=== PATIENT | female | born 1950 | race Caucasian/White ===

== ENCOUNTER → 2017-04-20 12:41 | Outpatient (CLI) | payer MEDICARE, MEDICAID, SELFPAY ==
--- NOTE | 2017-04-20 | CI_ITS ---
Cerebrovascular Exam Indications: 433.10 Occlusion/stenosis of carotid artery without cerebral infarction. IMPRESSIONS 1. Study suggests 20-49% stenosis involving the right internal carotid artery, the left internal carotid artery. The right ECA <50% stenosis and the left ECA >50% stenosis. 2. The bilateral vertebral arteries are patent but theleft mid vertebral artery demonstrates elevated velocities and abnormal waveforms consistent with a hemodynamically significant stenosis. The left subclavian artery demonstrates mildly elevated velocities at the proximal portion. Carotid duplex study. Complete study and Doppler flow study including spectral analysis, color and stark scale imaging. Height: Height: 152.4cm. Height: 60in. Weight: Weight: 71.2kg. Weight: 156.7lb. Body mass index: BMI: 30.7kg/m^2. Body surface area: BSA: 1.76m^2. Location: Vascular laboratory. Patient status: Outpatient. Tables: Arterial flow: + +-------+-------+ Location V sys V ed + +-------+-------+ Right ICA - mid 94cm/s 30cm/s + +-------+-------+ Right ICA - distal 110cm/s 29cm/s + +-------+-------+ Right vertebral 66cm/s 26cm/s + +-------+-------+ Right ICA - proximal 62cm/s 19cm/s + +-------+-------+ Right CCA - proximal 107cm/s 24cm/s + +-------+-------+ Right subclavian - proximal 303cm/s 6cm/s + +-------+-------+ Left ICA - proximal 96cm/s 24cm/s + +-------+-------+ Left ICA - mid 119cm/s 30cm/s + +-------+-------+ Left ICA - distal 119cm/s 37cm/s + +-------+-------+ Right ECA - proximal 186cm/s 17cm/s + +-------+-------+ Left ECA - proximal 353cm/s 47cm/s + +-------+-------+ Left CCA - proximal 101cm/s 21cm/s + +-------+-------+ Left vertebral - mid 397cm/s 124cm/s + +-------+-------+ Left subclavian - proximal 389cm/s ------- + +-------+-------+ (Report amended ) Electronically signed by: Naif Almeida [id number]
== END ==
PROVIDERS: Family Provider Internal Medicine Adolescent Medicine; PCP Internal Medicine Adolescent Medicine; Visit Provider Internal Medicine
DX: I65.23 Occlusion and stenosis of bilateral carotid arteries (principal)
CPT/HCPCS: 93880

== ENCOUNTER → 2017-12-20 08:37 | Outpatient (CLI) | payer MEDICARE, MEDICAID, SELFPAY ==
--- NOTE | 2017-12-20 08:43 | XR_ITS ---
XR wrist LT min 3V HISTORY pain and swelling ITS.REASON: left wrist pain ORDERING PHYSICIAN: Bakari Ponce MD PATIENT AGE: 67 years Comparison: None FINDINGS: There are severe osteoarthritic changes of the first metacarpal carpal joint. Atrophic changes are present along the medial aspect of the first metacarpal carpal joint with 2 calcific densities at the base of the first medical carpal laterally which could be due to old avulsions or calcific debris. There is generalized osteopenia. No other significant anomalies are evident. 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
[2017-12-20 11:40] LABS: Basophils # 0.1 K/mm3 (0-0.2); Basophils % 0.5 % (0.1-2.0); Eosinophils # 0.2 K/mm3 (0.0-0.4); Eosinophils % 1.8 % (0.1-12.0); Hematocrit 42.9 % (37.0-47.0); Hemoglobin 13.9 g/dL (12.2-16.2); Lymphocytes # 2.8 K/mm3 (0.7-4.5); Lymphocytes % 24.4 K/mm3 (10-50); Mean Corpuscular HGB Conc 32.4 g/dL (31.8-35.4); Mean Corpuscular Hemoglobin 29.5 pg (27.0-31.2); Monocytes # 0.7 K/mm3 (0.1-1.0); Monocytes % 6.2 % (1.7-9.3); Neutrophils # 7.6 K/mm3 (1.8-7.8); Neutrophils % 67.1 % (37.0-80.0); Platelet Count 292 K/mm3 (142-424); Red Blood Count 4.71 M/mm3 (4.20-5.40); Red Cell Distribution Width 12.7 % (11.5-17.5); White Blood Count 11.3 K/mm3 (4.8-10.8)
[2017-12-20 12:39] LABS: Uric Acid 3.9 mg/dL (2.6-7.2)
[2017-12-20 12:41] LABS: C-Reactive Protein < 0.2 mg/L (0.0-0.9)
[2017-12-20 15:28] LABS: Erythrocyte Sedimentation Rate 8 mm/hr (0-30)
[2017-12-22 06:31] LABS: Anti-Cyclic Citrullinated Pept >250 units (0-19); Antinuclear Antibodies, IFA Negative (.)
== END ==
PROVIDERS: PCP Internal Medicine Adolescent Medicine; Visit Provider Orthopaedic Surgery
DX: M25.532 Pain in left wrist (principal)
CPT/HCPCS: 36415; 73110; 84550; 85025; 85651; 86038; 86140; 86200; 86431

== ENCOUNTER → 2017-12-20 10:58 | Outpatient (CLI) | payer MEDICARE, MEDICAID, SELFPAY | PROVIDERS: PCP Internal Medicine Adolescent Medicine; Visit Provider Orthopaedic Surgery | DX: B99.9 Unspecified infectious disease (principal); M19.90 Unspecified osteoarthritis, unspecified site; M25.532 Pain in left wrist | CPT/HCPCS: 36415; 73110; 84550; 85025; 85651; 86038; 86140; 86200; 86431 ==

== ENCOUNTER → 2018-03-01 06:56 | Outpatient (CLI) | payer MEDICARE, MEDICAID, SELFPAY ==
--- NOTE | 2018-03-01 06:57 | CI_ITS ---
Cerebrovascular Exam Indications: Follow-up carotid 433.10. IMPRESSIONS 1. The bilateral vertebral arteries are patent but the left mid vertebral artery demonstrates elevated velocities and abnormal waveforms consistent with a hemodynamically significant stenosis. 2. Study suggests 20-49% stenosis involving the right internal carotid artery. No change from the study of 20-Apr-2017. 3. Study suggests 20-49% stenosis involving the left internal carotid artery. No change from the study of 20-Apr-2017. 4. Study suggests >50%stenosis involving the left external carotid artery. No change from the study of 20-Apr-2017. 5. Study suggests<50% stenosis involving the right external carotid artery. No change from the study of 20-Apr-2017. History: Stroke. Risk factors: Current tobacco use. Hypertension. Diabetes mellitus. Hyperlipidemia. Carotid duplex study. Complete study and Doppler flow study including spectral analysis, color and stark scale imaging. Height: Height: 152.4cm. Height: 60in. Weight: Weight: 61.7kg. Weight: 135.7lb. Body mass index: BMI: 26.6kg/m^2. Body surface area: BSA: 1.63m^2. Location: Vascular laboratory. Patient status: Outpatient. Tables: Arterial flow: + +--------+--------+ Location V sys V ed + +--------+--------+ Right CCA - proximal 80.1cm/s 11.8cm/s + +--------+--------+ Right CCA - distal 76.2cm/s 12.6cm/s + +--------+--------+ Right ECA 202cm/s 11.2cm/s + +--------+--------+ Right ICA - proximal 101cm/s 24.4cm/s + +--------+--------+ Right ICA - mid 103cm/s 21.2cm/s + +--------+--------+ Right ICA - distal 119cm/s 23.6cm/s + +--------+--------+ Right vertebral 71.6cm/s 23.9cm/s + +--------+--------+ Left CCA - proximal 69.8cm/s 12.6cm/s + +--------+--------+ Left CCA - distal 82.3cm/s 16.3cm/s + +--------+--------+ Left ECA 283cm/s 18.2cm/s + +--------+--------+ Left ICA - proximal 82.3cm/s 21.4cm/s + +--------+--------+ Left ICA - mid 96.8cm/s 21.4cm/s + +--------+--------+ Left ICA - distal 123cm/s 27cm/s + +--------+--------+ Left vertebral 317cm/s 46.3cm/s + +--------+--------+ Velocity ratios: + + + + + + Right, V sys Right, V ed Left, V sys Left, V ed + + + + + + Max ICA/dist CCA 1.56 1.94 1.49 1.66 + + + + + + (Report amended ) Electronically signed by: Danyel Sarabia [id number]
--- NOTE | 2018-03-01 06:57 | CA_ITS ---
PROCEDURE: 2-D M-mode and color Doppler study INDICATIONS FOR THE TEST: Chest pain COPD Heart Murmur Tobacco Smoking+ Palpitations Fatigue Syncope Edema Hypertension+Diabetes Mellitus+ Rheumatic Fever SOB PRUETT Obesity Hyperlipidemia+ Family History HD Additional History H/O CVA, CABG PATIENT INFORMATION HEIGHT:60 WEIGHT:136 GENDER: Female B/P:152/65 2-D/M-MODE INTERPRETATION: 2-D MEASUREMENTS OBSERVED VALUES IN CMS Right Ventricular Dimension (RVDd) 2.2 Interventricular Septum (Thickness)(IVsd) 1.5 Left Ventricular Internal Dimensions(LVIDd) 4.3 Left Ventricular Posterior Wall (Thickness)(LVPWd) 0.9 Aortic Root 2.9 Aortic Cusp Separation 1.9 Left Atrial Dimensions (LAD) 3.4 2D 1. Left atrium is mildly enlarged, left ventricle is normal size, mild concentric left ventricular hypertrophy, visually estimated ejection fraction 50%, there is discrete wall motion abnormality involving the inferobasal wall which is akinetic. 2. The right atrium and right ventricle are normal size and contractility. 3. The aortic valve is thickened and calcified, leaflet continue to display mobility. 4. The mitral and tricuspid valve leaflets are minimally thickened 5. The pulmonic valve is poorly visualized. 6. No significant pericardial effusion noted. DOPPLER INTERROGATION: Doppler interrogation of the aortic, mitral and tricuspid valve reveals presence of mild mitral and tricuspid regurgitation, grade 1 diastolic dysfunction seen with tissue Doppler evidence of raised left atrial pressure. CONCLUSION: 1. Mildly enlarged left atrium, normal left ventricular size, mild concentric left ventricular hypertrophy, visually estimated ejection fraction 50% with segmental wall motion abnormality described above, grade 1 diastolic dysfunction seen with tissue Doppler evidence of raised left atrial pressure. 2. Mild mitral and tricuspid regurgitation. 3. No significant pericardial effusion noted.
--- NOTE | 2018-03-01 06:57 | NM_ITS ---
History and Indications: Coronary artery disease, hypertension, diabetes, hyperlipidemia, tobacco use, family history. Procedure: Patient received a 0.4 mg of intravenous Lexiscan, resting heart rate was 73 bpm resting blood pressure 150/76, with Lexiscan maximum heart rate achieved was 100 bpm which is less than 85% of the maximum predicted heart rate and a blood pressure was 137/66. With Lexiscan patient complained of stomach cramp. Electrocardiogram: Resting electrocardiogram showed sinus rhythm possible septal infarct, with Lexiscan there is less than 1.[address] segment depression noted from the baseline EKG. The EKG portion of the Lexiscan Myoview is nondiagnostic. Cardiac stress and resting SPECT images: Cardiac stress and resting SPECT images were obtained using technetium 99 Myoview 32.1 mCi at stress and 10.2 mCi at rest. Gated SPECT further analysis of segmental wall motion and calculation of the ejection fraction also done. Cardiac stress and rest SPECT images show uniform myocardial activity without any segmental perfusion abnormality, computer derived ejection fraction is 57% with no regional wall motion abnormality, right ventricle is normal size and contractility. Conclusion: 1. The EKG portion of the Lexiscan Myoview is nondiagnostic. 2. No scintigraphic evidence of reversible ischemia seen, there are ejection fraction is 57% with no regional wall motion abnormality. Right ventricle is normal. 3. Normal Lexiscan Myoview study.
--- NOTE | 2018-03-01 11:12 | HMH.ITSHM ---
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 [lorazepan lisinopril metformin asa ]
== END ==
PROVIDERS: PCP Internal Medicine Adolescent Medicine; Visit Provider Internal Medicine
DX: E11.9 Type 2 diabetes mellitus without complications (principal); E78.5 Hyperlipidemia, unspecified; F17.200 Nicotine dependence, unspecified, uncomplicated; I11.9 Hypertensive heart disease without heart failure; I25.10 Atherosclerotic heart disease of native coronary artery without angina pectoris; I65.29 Occlusion and stenosis of unspecified carotid artery; Z86.73 Personal history of transient ischemic attack (TIA), and cerebral infarction without residual deficits; R06.00 Dyspnea, unspecified
CPT/HCPCS: 78452; 93017; 93306; 93880; A9502; J2785

== ENCOUNTER → 2018-03-16 09:30 | Outpatient (CLI) | payer MEDICARE, MEDICAID, SELFPAY ==
[2018-03-16 10:44] LABS: Basophils % 0.4 % (0.1-2.0); Eosinophils # 0.1 K/mm3 (0.0-0.4); Eosinophils % 1.5 % (0.1-12.0); Hematocrit 41.1 % (37.0-47.0); Hemoglobin 13.3 g/dL (12.2-16.2); Lymphocytes # 2.2 K/mm3 (0.7-4.5); Lymphocytes % 24.1 % (10-50); Mean Corpuscular HGB Conc 32.4 g/dL (31.8-35.4); Mean Corpuscular Hemoglobin 29.8 pg (27.0-31.2); Mean Platelet Volume 7.7 fl (7.4-10.4); Monocytes # 0.4 K/mm3 (0.1-1.0); Monocytes % 4.3 % (1.7-9.3); Neutrophils # 6.2 K/mm3 (1.8-7.8); Neutrophils % 69.8 % (37.0-80.0); Platelet Count 249 K/mm3 (142-424); Red Blood Count 4.47 M/mm3 (4.20-5.40); Red Cell Distribution Width 14.3 % (11.5-17.5); White Blood Count 8.9 K/mm3 (4.8-10.8)
[2018-03-16 12:11] LABS: Alanine Aminotransferase 39 U/L (12-78); Albumin/Globulin Ratio 1.2 (1.1-1.8); Alkaline Phosphatase 96 U/L (46-116); Anion Gap 12.8 mEq/L (5-15); Aspartate Amino Transferase 23 U/L (15-37); Bilirubin,Total 0.4 mg/dL (0.2-1.0); Blood Urea Nitrogen 13 mg/dL (7-18); Calcium 8.2 mg/dL (8.5-10.1); Carbon Dioxide 26 mmol/L (21.0-32.0); Chloride 106 mmol/L (98-107); Chol/HDL Ratio 2.9 (1-3.5); Cholesterol 95 mg/dL (140-200); Creatinine,Serum 0.71 mg/dL (0.55-1.02); Estimated Glomerular Filt Rate 82 ml/min (>60); GFR (African American) 99 ML/MIN (>60); Globulin 2.6 gm/dl (1.3-3.2); Glucose 103 mg/dL (74-106); HDL Cholesterol 33 mg/dL (29-89); LDL Cholesterol 45 mg/dL (0-130); Potassium 3.8 mmoL/L (3.5-5.1); Sodium 141 mmol/L (136-145); Total Protein,Serum 5.6 gm/dL (6.4-8.2); Triglycerides 84 mg/dL (30-200); VLDL Cholesterol 17 mg/dL (0-40)
[2018-03-16 15:19] LABS: Hemoglobin A1C 6.6 % (0.0-7.0)
== END ==
PROVIDERS: Visit Provider Internal Medicine Adolescent Medicine
DX: E11.9 Type 2 diabetes mellitus without complications (principal); E78.5 Hyperlipidemia, unspecified; M06.041 Rheumatoid arthritis without rheumatoid factor, right hand
CPT/HCPCS: 36415; 80053; 80061; 83036; 85025

== ENCOUNTER → 2018-06-04 09:37 | Outpatient (CLI) | payer MEDICARE, MEDICAID, SELFPAY ==
--- NOTE | 2018-06-04 09:41 | XR_ITS ---
XR DEXA axial skeleton HISTORY: ITS.REASON: COMPRESSION FX ORDERING PHYSICIAN: Roe Gleason MD PATIENT AGE: 67 years COMPARISON: 04/29/2016 FINDINGS: The BMD measured at the Left femoral neck is 0.956 g/cm squared with a T score of -0.6. This is considered Normal according to the World Health Organization criteria. Fracture risk is Low. Treatment is advised. L1 L4 density has a T score of -0.1 which is within normal limits. The L-spine density has increased by 1.7% in the hip density has decreased by 3.2% IMPRESSION: Normal bone density with low fracture risk. Recommend follow-up exam May 2020
[2018-06-04 10:29] LABS: Basophils # 0.1 K/mm3 (0-0.2); Basophils % 0.5 % (0.1-2.0); Eosinophils # 0.2 K/mm3 (0.0-0.4); Hematocrit 42.6 % (37.0-47.0); Hemoglobin 13.9 g/dL (12.2-16.2); Lymphocytes # 2.7 K/mm3 (0.7-4.5); Lymphocytes % 28.4 % (10-50); Mean Corpuscular HGB Conc 32.6 g/dL (31.8-35.4); Mean Corpuscular Hemoglobin 30.5 pg (27.0-31.2); Mean Corpuscular Volume 93.5 fl (81-99); Mean Platelet Volume 7.4 fl (7.4-10.4); Monocytes # 0.4 K/mm3 (0.1-1.0); Monocytes % 4.5 % (1.7-9.3); Neutrophils % 64.5 % (37.0-80.0); Platelet Count 243 K/mm3 (142-424); Red Blood Count 4.56 M/mm3 (4.20-5.40); Red Cell Distribution Width 15.3 % (11.5-17.5); White Blood Count 9.3 K/mm3 (4.8-10.8)
[2018-06-04 12:30] LABS: Alanine Aminotransferase 26 U/L (12-78); Albumin Level 3.3 gm/dL (3.4-5.0); Albumin/Globulin Ratio 1.2 (1.1-1.8); Alkaline Phosphatase 86 U/L (46-116); Anion Gap 15.7 mEq/L (5-15); Aspartate Amino Transferase 15 U/L (15-37); Bilirubin,Total 0.4 mg/dL (0.2-1.0); Blood Urea Nitrogen 16 mg/dL (7-18); Calcium 9.1 mg/dL (8.5-10.1); Carbon Dioxide 28 mmol/L (21.0-32.0); Chloride 105 mmol/L (98-107); Creatinine,Serum 0.64 mg/dL (0.55-1.02); Estimated Glomerular Filt Rate 93 ml/min (>60); GFR (African American) 112 ML/MIN (>60); Globulin 2.7 gm/dl (1.3-3.2); Glucose 57 mg/dL (74-106); Potassium 4.7 mmoL/L (3.5-5.1); Sodium 144 mmol/L (136-145)
== END ==
PROVIDERS: PCP Internal Medicine Adolescent Medicine; Visit Provider Internal Medicine Adolescent Medicine
DX: M06.041 Rheumatoid arthritis without rheumatoid factor, right hand (principal); S32.040D Wedge compression fracture of fourth lumbar vertebra, subsequent encounter for fracture with routine healing; Z78.0 Asymptomatic menopausal state
CPT/HCPCS: 36415; 77080; 80053; 85025

== ENCOUNTER → 2018-09-20 10:11 | Outpatient (CLI) | payer MEDICARE, MEDICAID, SELFPAY ==
--- NOTE | 2018-09-20 10:13 | CI_ITS ---
Cerebrovascular Exam Indications: 433.10 Occlusion/stenosis of carotid artery without cerebral infarction. IMPRESSIONS 1. The bilateral vertebral arteries are patent with normal antegrade flow. 2. Study suggests 20-49% stenosis involving the right internal carotid artery and the left internal carotid artery. No change from the study of 01-Mar-2018. 3. Study suggests 50-69% stenosis involving the right external carotid artery and the left external carotid artery. No change from the study of 01-Mar-2018. History: Risk factors: Current tobacco use. Hypertension. Diabetes mellitus. Hyperlipidemia. Carotid duplex study. Complete study and Doppler flow study including spectral analysis, color and stark scale imaging. Height: Height: 152.4cm. Height: 60in. Weight: Weight: 62.6kg. Weight: 137.7lb. Body mass index: BMI: 27kg/m^2. Body surface area: BSA: 1.65m^2. Location: Vascular laboratory. Patient status: Outpatient. Tables: Arterial flow: + +--------+--------+ Location V sys V ed + +--------+--------+ Right CCA - proximal 82.5cm/s 12.6cm/s + +--------+--------+ Right CCA - distal 99.9cm/s 16.1cm/s + +--------+--------+ Right ECA 208cm/s -------- + +--------+--------+ Right ICA - proximal 71.7cm/s 18.2cm/s + +--------+--------+ Right ICA - mid 76.1cm/s 20.6cm/s + +--------+--------+ Right ICA - distal 71.6cm/s 18.3cm/s + +--------+--------+ Right vertebral 66.8cm/s -------- + +--------+--------+ Left CCA - proximal 102cm/s 21.2cm/s + +--------+--------+ Left CCA - distal 102cm/s 14.1cm/s + +--------+--------+ Left ECA 209cm/s -------- + +--------+--------+ Left ICA - proximal 56.6cm/s 16.3cm/s + +--------+--------+ Left ICA - mid 58.4cm/s 14.3cm/s + +--------+--------+ Left ICA - distal 69.9cm/s 18.4cm/s + +--------+--------+ Left vertebral 46.2cm/s -------- + +--------+--------+ Velocity ratios: + + + + + + Right, V sys Right, V ed Left, V sys Left, V ed + + + + + + Max ICA/dist CCA 0.76 1.28 0.69 1.3 + + + + + + (Report amended ) Electronically signed by: Danyel Sarabia [id number]
== END ==
PROVIDERS: PCP Internal Medicine Adolescent Medicine; Visit Provider Internal Medicine Cardiovascular Disease
DX: I65.23 Occlusion and stenosis of bilateral carotid arteries (principal)
CPT/HCPCS: 93880

== ENCOUNTER 2019-01-04 20:16 | Observation (INO) ==
--- NOTE | 2019-01-04 21:12 | Emergency Department Note ---
ED Disposition Clinical Impression: CAP (community acquired pneumonia) Qualifiers: Laterality: right Lung location: lower lobe of lung Qualified Code(s): J18.1 - Lobar pneumonia, unspecified organism UTI (urinary tract infection) Qualifiers: Urinary tract infection type: site unspecified Hematuria presence: without hematuria Qualified Code(s): N39.0 - Urinary tract infection, site not specified Disposition: Admitted as Observation Condition on Discharge: Good Referrals: Roe Gleason MD [Primary Care Provider] - - Critical Care Critical Care Time: No Attestation: On 01/04/19, the high probability of a clinically significant, sudden or life threatening deterioration of the following system(s) required my full and direct attention, intervention and personal management. The time I documented below is in addition to time spent performing reported procedures but includes the following listed in this critical care notation. Medical Decision Making - Medical Records Medical records reviewed: Yes: I reviewed the patient's medical records. - Jose Inquiry Pt receiving controlled substance: No Vital Signs: 01/04/19 20:25 Temperature 100.5 F H Temperature Source Oral Pulse Rate [Right] 92 H Respiratory Rate 18 Blood Pressure [Right Arm] 153/89 H Blood Pressure Mean [Right Arm] 110 02 Sat by Pulse Oximetry 93 L Oxygen Delivery Method Room Air - Lab Data Lab results reviewed: Yes: I reviewed the patient's lab results. Lab Results 01/04/19 21:00: Urine Color Yellow, Urine Appearance Sl cloudy, Urine pH 6.0, Ur Specific [place] >= 1.030, Urine Protein 1+, Urine Glucose (UA) 3+, Urine K etones Trace, Urine Blood Negative, Urine Nitrate Positive, Urine Bilirubin Negative, Urine Urobilinogen 2.0, Ur Leukocyte Esterase Trace, Urine WBC 20-50, Amorphous Sediment 1+, Urine Bacteria 4+ 01/04/19 21:00: WBC 12.0 H, RBC 3.98 L, Hgb 11.9 L, Hct 38.2, MCV 95.8, MCH 29.9, MCHC 31.2 L, RDW 15.0, Plt Count 265, MPV 7.8, Neut % (Auto) 79.9, Lymph % (Auto) 10.1, [place] % (Auto) 9.3, Eos % (Auto) 0.5, Baso % (Auto) 0.2, Neut # (Auto) 9.5 H, Lymph # (Auto) 1.2, [place] # (Auto) 1.1 H, Eos # (Auto) 0.1, Baso # (Auto) 0.0, ESR 79 H 01/04/19 21:00: Sodium 136, Potassium 3.7, Chloride 101, Carbon Dioxide 27, Anion Gap 11.7, BUN 26 H, Creatinine 0.75 D, Estimated Creat Clear 49, Estimated GFR 77, Est GFR ( Amer) 93 D, Glucose 189 H, Calcium 8.3 L, Total Bilirubin 0.6, AST 15, ALT 28, Alkaline Phosphatase 168 H, C-Reactive Protein 10.8 H, Total Protein 6.2 L, Albumin 2.6 L, Globulin 3.6 H, Albumin/Globulin Ratio 0.7 L 01/04/19 21:00: Lactate 1.5 Result diagrams: 01/04/19 21:00 01/04/19 21:00 Orders (Tests/Meds): ED MEDICATIONS Generic Name Dose Route Start Last Admin Trade Name Freq PRN Reason Stop Dose Admin Sodium Chloride 1,000 mls @ 999 mls/hr 01/04/19 20:45 01/04/19 22:16 Sod Chlor 0.9% 1000ml Bag IV 01/04/19 21:45 999 mls/hr .Q1H1M DEXTER Administration Ceftriaxone Sodium 1 gm/ 50 mls @ 100 mls/hr 01/04/19 22:15 01/04/19 22:25 Sodium Chloride IV 01/18/19 22:14 100 mls/hr Q24H DEXTER Administration Protocol Azithromycin 500 mg/ Sodium 250 mls @ 250 mls/hr 01/04/19 22:15 Chloride IV 01/18/19 22:14 Q24H DEXTER Protocol Discontinued Medications Generic Name Dose Route Start Last Admin Trade Name Freq PRN Reason Stop Dose Admin Acetaminophen 650 mg 01/04/19 20:34 01/04/19 22:16 Acetaminophen 325mg Tab PO 01/04/19 20:35 650 mg ONCE ONE Administration Methylprednisolone Sodium Succinate 125 mg 01/04/19 21:13 01/04/19 22:16 Solu-Medrol 125mg/2ml Vial IV 01/04/19 21:14 125 mg ONCE ONE Administration ORDERS Category Date Time Status CT cervical spine wo con Stat Cat Scan 01/04/19 20:[address] head/brain wo con Stat Cat Scan 01/04/19 20:32 Taken XR chest 2V Stat Exams 01/04/19 20:32 Taken XR hip RT 2-3V w/pelvis Stat Exams 01/04/19 20:32 Taken Blood Culture Stat Micro 01/04/19 21:00 Received Urine Culture Stat Micro 01/04/19 21:00 Received - Radiology Data #1 Image(s): Chest, Pelvis Image Reviewed: Yes I reviewed the patient's radiology image Preliminary Findings: Abnormal (cap/deg changes rt hip ) - CT Data CT Scan: Head, C-Spine Time Received: 22:[address] Reviewed: Yes: I have viewed the radiologist's interpretation Preliminary Findings: Abnormal (see report ) Weakness HPI - General Chief complaint: Weakness Stated complaint: pain in hips and legs, confussed Time Seen by Provider: 01/04/19 21:00 Mode of Arrival: Ambulatory Source of Information: Patient, Relative, Medical Record Limitations: No Limitations Description of Symptoms (Recalled from ER Triage Doc. by RN): Pt family states she was seen here yesterday for weakness, dizzy, and confusion yesterday and dx with PNA and d/c, pt family expresses that she is not any better, she has increased confusion, fever, chills, and pain in her right hip. - History of Present Illness HPI Narrative: pt with pain in rt hip and had recent fall but also was in the ed yesterday and dx of cap and placed on abx - family report failed op treatment with more confusion with weakness and dec po intake - MD Complaint: generalized weakness Onset (ago): day(s) Location: generalized Severity: moderate Associated symptoms: confusion, loss of appetite - Related Data Home Medications Medication Instructions Recorded Confirmed atorvastatin 80 mg tablet 80 mg PO QDAY 04/05/17 01/04/19 carvedilol 25 mg tablet 37.5 mg PO BID tab 04/05/17 01/04/19 gabapentin 100 mg capsule 300 mg PO TID cap 04/05/17 01/04/19 lisinopril 40 mg tablet 40 mg PO BID tab 04/05/17 01/04/19 magnesium 400 mg (as magnesium 400 mg PO BID cap 04/05/17 01/04/19 oxide) capsule hydralazine 50 mg tablet 25 mg PO TID tab 04/06/17 01/04/19 lorazepam 0.5 mg tablet 0.5 mg PO TID tab 04/06/17 01/04/19 amlodipine 10 mg tablet 5 mg PO QDAY tab 09/14/17 01/04/19 aspirin 325 mg tablet 325 mg PO DAILY tab 09/14/17 01/04/19 glimepiride 2 mg tablet 4 mg PO BID tab 09/14/17 01/04/19 metformin 500 mg tablet 1,000 mg PO BID tab 09/14/17 01/04/19 folic acid 1 mg tablet 1 mg PO DAILY 02/22/18 01/04/19 methotrexate sodium 5 mg tablet 2.5 mg PO QWEEK 02/22/18 01/04/19 Isosorbide Mononitrate [Imdur 30mg 30 mg PO DAILY 03/26/18 01/04/19 ER tablet] Meloxicam 7.5 mg PO DAILY 03/26/18 01/04/19 buPROPion HCl [Bupropion HCl Sr] 150 mg PO BID 01/03/19 01/04/19 Azithromycin [Zithromax 250mg 250 mg PO DIRECTED 01/04/19 01/04/19 tab] Allergies Allergy/AdvReac Type Severity Reaction Status Date / Time naproxen Allergy Mild Verified 01/03/19 11:53 IV contrast Allergy Mild Uncoded 01/03/19 11:53 [facility] History - Hepatitis A Screen Drug use history?: No High risk sexual behaviors?: No History of sexually transmitted infection?: No Currently employed?: No Childcare worker?: No Do you have indoor plumbing?: Yes Do you have electricity?: Yes Attestation statement:: This patient has been screened for Hepatitis A risk factors. I have reviewed the patient's past medical history: Yes Medical History: Reports:: Coronary Artery Disease, Cerebrovascular Accident, Diabetes Mellitus Type 2, Hyperlipidemia, Hypertension, Myocardial Infarction Denies:: Diabetes Mellitus Type 1 Other Medical History: Reports: Arthritis Laterality Cases: Bilateral: Other Other Surgeries: Yes: Hysterectomy-Total, Other - Social History Smoking Status: Current every day smoker Tobacco Type: cigarettes Alcohol Intake: never Alcohol Intake Frequency:: other Substance Use Type: denies use Occupational Status: retired Family Hx:: Coronary Artery Disease, Heart Attack ROS Obtained: Yes All systems reviewed & no additional complaints - Constitutional Constitutional: Reports as per HPI, Reports fever(s), Reports weakness - Eyes Eyes: Denies change in vision - ENT Ears, Nose, Mouth, and Throat: Denies sore throat - Cardiovascular Cardiovascular: Denies chest pain - Respiratory Respiratory: Yes cough, Yes non-productive cough - Gastrointestinal Gastrointestingal: Reports: as per HPI, nausea. Denies: abdominal pain, vomiting - Genitourinary Female Genitourinary: Denies hematuria - Musculoskeletal Musculoskeletal: Denies joint pain, Denies joint swelling - Integumentary/Breasts Skin/Breast: Denies rash - Neurologic Neurologic: Denies focal weakness, Denies frequent falls, Denies headache(s), Denies seizure-like activity Physical Exam - General General appearance: alert - Head Head exam: normocephalic - Eye Eye exam: Present: PERRL, EOMI - ENT ENT exam: Present: mucous membranes dry - Neck Neck exam: Present: trachea midline - Respiratory Respiratory exam: Present: other (rales on rt ). Absent: respiratory distress - Cardiovascular Cardiovascular exam: Present: regular rate, systolic murmur, +S4 - Abdominal Exam Abdominal exam: Present: soft. Absent: tenderness - Extremities Exam Extremities exam: Present: full ROM - Neurological Exam Neurological exam: Present: alert, oriented X3, CN II-XII intact. Absent: motor sensory deficit - Psychiatric Psychiatric exam: Present: normal affect - Skin Skin exam: Absent: rash
[2019-01-04 21:19] LABS: Microscopic, Urine URINE MICROSCOPIC (MICROSCOPIC)
[2019-01-04 21:21] LABS: Basophils % 0.2 % (0.1-2.0); Eosinophils # 0.1 K/mm3 (0.0-0.4); Eosinophils % 0.5 % (0.1-12.0); Hematocrit 38.2 % (37.0-47.0); Hemoglobin 11.9 g/dL (12.2-16.2); Lymphocytes # 1.2 K/mm3 (0.7-4.5); Lymphocytes % 10.1 % (10-50); Mean Corpuscular HGB Conc 31.2 g/dL (31.8-35.4); Mean Corpuscular Volume 95.8 fl (81-99); Mean Platelet Volume 7.8 fl (7.4-10.4); Monocytes # 1.1 K/mm3 (0.1-1.0); Monocytes % 9.3 % (1.7-9.3); Neutrophils # 9.5 K/mm3 (1.8-7.8); Neutrophils % 79.9 % (37.0-80.0); Platelet Count 265 K/mm3 (142-424); Red Blood Count 3.98 M/mm3 (4.20-5.40)
[2019-01-04 21:31] LABS: Albumin Level 2.6 gm/dL (3.4-5.0); Albumin/Globulin Ratio 0.7 (1.1-1.8); Anion Gap 11.7 mEq/L (5-15); Bilirubin,Total 0.6 mg/dL (0.2-1.0); C-Reactive Protein 10.8 mg/dL (0.0-0.9); Calcium 8.3 mg/dL (8.5-10.1); Globulin 3.6 gm/dl (1.3-3.2); Total Protein,Serum 6.2 gm/dL (6.4-8.2)
[2019-01-04 21:51] LABS: Appearance,Urine SL CLOUDY (Clear); Blood, Urine Negative (Negative); Color,Urine YELLOW (Yellow); Glucose,Urine (UA) 3+ (Negative); Ketones,Urine TRACE (Negative); Leukocyte Esterase,Urine TRACE (Negative); Protein,Urine 1+ (Negative); Specific Gravity, Urine >= 1.030 (1.005-1.030)
[2019-01-04 21:53] LABS: Bilirubin,Urine Negative (Negative)
[2019-01-04 21:54] LABS: Amorphous Sediment,Urine 1+ /lpf; Bacteria,Urine 4+ /lpf; Erythrocyte Sedimentation Rate 79 mm/hr (0-30); WBC,Urine 20-50 #/hpf (0-3)
[2019-01-05 05:43] LABS: Basophils % 0.1 % (0.1-2.0); Eosinophils % 0.2 % (0.1-12.0); Hemoglobin 12.2 g/dL (12.2-16.2); Lymphocytes # 0.6 K/mm3 (0.7-4.5); Lymphocytes % 8.9 % (10-50); Mean Corpuscular HGB Conc 30.4 g/dL (31.8-35.4); Mean Corpuscular Volume 99.4 fl (81-99); Mean Platelet Volume 8.1 fl (7.4-10.4); Monocytes # 0.3 K/mm3 (0.1-1.0); Monocytes % 3.9 % (1.7-9.3); Neutrophils # 6.2 K/mm3 (1.8-7.8); Neutrophils % 86.9 % (37.0-80.0); Platelet Count 239 K/mm3 (142-424); Red Blood Count 4.02 M/mm3 (4.20-5.40); Red Cell Distribution Width 14.9 % (11.5-17.5); White Blood Count 7.2 K/mm3 (4.8-10.8)
[2019-01-05 05:56] LABS: Anion Gap 12.6 mEq/L (5-15); Blood Urea Nitrogen 16 mg/dL (7-18); Calcium 8.2 mg/dL (8.5-10.1); Carbon Dioxide 27 mmol/L (21.0-32.0); Chloride 108 mmol/L (98-107); Hypochromasia 1+; Lymphocytes % 6 % (10-50); Macrocytosis 2+; Neutrophils % 87 % (42-76); Sodium 144 mmol/L (136-145); Total Cells Counted 100
[2019-01-05 05:59] LABS: Glucose 281 mg/dL (74-106)
--- NOTE | 2019-01-05 09:02 | Pharmacy Consult Notes ---
[facility] Pharmacy VTE Monitoring - Patient Demographics Admission date: 01/05/19 Report Date: 01/05/19 Time: 09:01 Allergies/Adverse Reactions: Patient Allergies naproxen Allergy (Mild, Verified 01/03/19 11:53) IV contrast Allergy (Mild, Uncoded 01/03/19 11:53) Height: 1.52 m Weight: 62.199 kg Patient Problems: Current Active Problems CAP (community acquired pneumonia) (Acute) UTI (urinary tract infection) (Acute) - VTE Risk Labs: VTE Related Lab Results Hgb 12.2 g/dL (12.2-16.2) 01/05/19 05:05 Hct 40.0 % (37.0-47.0) 01/05/19 05:05 Plt Count 239 K/mm3 (142-424) 01/05/19 05:05 BUN 16 mg/dL (7-18) D 01/05/19 05:05 Creatinine 0.71 mg/dL (0.55-1.02) 01/05/19 05:05 Estimated Creat Clear 53 mL/min (50-200) 01/05/19 05:05 VTE Score: 5 VTE Risk Level: Low Risk - Prophylaxis VTE Prophylaxis Ordered?: Yes Types of VTE Prophylaxis: TEDS Knee High Location of Applied Device: Bilateral Lower Extremeties
--- NOTE | 2019-01-05 12:38 | History & Physical Report ---
*Admission Date: 01/05/19 *Chief complaint: Confusion, fatigue, polyuria *History of present illness: 68-year-old female with 1 week of worsening fatigue, weakness, confusion. Not feeling herself is how she puts it on interview this morning. She is also been having increased urinary frequency and dysuria. Initially presented to the ER on where she was found to have no abnormalities and sent home. Represented yesterday due to progression of symptoms and found to have significant UTI, tachycardia above 90, and leukocytosis concerning for sepsis. She was initiated on antibiotics and fluids. Admitted to medicine for further management of sepsis secondary to UTI. This morning states she is feeling somewhat better however only about 50% of normal. Family is at bedside and states that she has been very weak and having difficulty at home with her ADLs. Denies any fevers, nausea or vomiting, . Has had some loose stools but no alpa diarrhea. No flank pain or abdominal pain. [facility] History I have reviewed the patient's past medical history: Yes Medical History: Reports:: Coronary Artery Disease, Cerebrovascular Accident, Diabetes Mellitus Type 2, Hyperlipidemia, Hypertension, Myocardial Infarction Denies:: Diabetes Mellitus Type 1 *Have you ever received a pneumonia vaccine?: Yes *Have you received a flu vaccine this season?: Yes Other Medical History: Reports: Arthritis Laterality Cases: Bilateral: Other Other Surgeries: Yes: Hysterectomy-Total, Other Amputation: No Fractures: No - *Social History Educational Level: Attended High School Smoking Status: Former smoker Tobacco Type: cigarettes # Packs/Day (cigarettes): 1 #Yrs smoked (if former smoker): 50 Smoking End Date: 12/29/18 Alcohol Intake: never Alcohol Intake Frequency:: other Substance Use Type: denies use *Occupational Status:: retired Housing: house Household Members: children *Travel in the last 8 weeks: None Family Hx:: Coronary Artery Disease, Diabetes, Heart Attack Review of Systems - Review of Systems Review of systems:: pertinent systems reviewed and negative unless documented below - *Neurologic Reports weakness, Denies localized weakness, Denies frequent falls, Denies headache(s), Denies seizure-like activity Meds Home Medications Medication Instructions Recorded Confirmed Type atorvastatin 80 mg tablet 80 mg PO HS 04/05/17 01/05/19 History carvedilol 25 mg tablet 37.5 mg PO BID tab 04/05/17 01/04/19 History gabapentin 100 mg capsule 300 mg PO TID cap 04/05/17 01/04/19 History lisinopril 40 mg tablet 40 mg PO BID tab 04/05/17 01/04/19 History magnesium 400 mg (as magnesium 400 mg PO BID cap 04/05/17 01/04/19 History oxide) capsule hydralazine 50 mg tablet 25 mg PO TID tab 04/06/17 01/04/19 History lorazepam 0.5 mg tablet 0.5 mg PO TID tab 04/06/17 01/04/19 History amlodipine 10 mg tablet 5 mg PO DAILY tab 09/14/17 01/05/19 History aspirin 325 mg tablet 325 mg PO DAILY tab 09/14/17 01/04/19 History glimepiride 2 mg tablet 2 mg PO BID tab 09/14/17 01/05/19 History metformin 500 mg tablet 1,000 mg PO BID tab 09/14/17 01/04/19 History folic acid 1 mg tablet 1 mg PO DAILY 02/22/18 01/04/19 History methotrexate sodium 5 mg tablet 12.5 mg PO WEEKLY 02/22/18 01/05/19 History Isosorbide Mononitrate [Imdur 30mg 30 mg PO DAILY 03/26/18 01/04/19 History ER tablet] Meloxicam 7.5 mg PO DAILY 03/26/18 01/04/19 History buPROPion HCl [Bupropion HCl Sr] 150 mg PO BID 01/03/19 01/04/19 History Azithromycin [Zithromax 250mg 250 mg PO DIRECTED 01/04/19 01/04/19 History tab] Allergies Allergy/AdvReac Type Severity Reaction Status Date / Time naproxen Allergy Mild Verified 01/03/19 11:53 IV contrast Allergy Mild Uncoded 01/03/19 11:53 Exam Vital signs and Labs for Last 24 Hours: Temp Pulse Resp BP Pulse Ox 97.9 F 76 20 151/66 H 93 L 01/05/19 08:00 01/05/19 08:00 01/05/19 08:00 01/05/19 08:00 01/05/19 08:00 Laboratory Results - last 24 hr 01/04/19 21:00: Urine Color Yellow, Urine Appearance Sl cloudy, Urine pH 6.0, Ur Specific [place] >= 1.030, Urine Protein 1+, Urine Glucose (UA) 3+, Urine Ketones Trace, Urine Blood Negative, Urine Nitrate Positive, Urine Bilirubin Negative, Urine Urobilinogen 2.0, Ur Leukocyte Esterase Trace, Urine WBC 20-50, Amorphous Sediment 1+, Urine Bacteria 4+ 01/04/19 21:00: WBC 12.0 H, RBC 3.98 L, Hgb 11.9 L, Hct 38.2, MCV 95.8, MCH 29.9, MCHC 31.2 L, RDW 15.0, Plt Count 265, MPV 7.8, Neut % (Auto) 79.9, Lymph % (Auto) 10.1, [place] % (Auto) 9.3, Eos % (Auto) 0.5, Baso % (Auto) 0.2, Neut # (Auto) 9.5 H, Lymph # (Auto) 1.2, [place] # (Auto) 1.1 H, Eos # (Auto) 0.1, Baso # (Auto) 0.0, ESR 79 H 01/04/19 21:00: Sodium 136, Potassium 3.7, Chloride 101, Carbon Dioxide 27, Anion Gap 11.7, BUN 26 H, Creatinine 0.75 D, Estimated Creat Clear 49, Estimated GFR 77, Est GFR ( Amer) 93 D, Glucose 189 H, Calcium 8.3 L, Total Bilirubin 0.6, AST 15, ALT 28, Alkaline Phosphatase 168 H, C-Reactive Protein 10.8 H, Total Protein 6.2 L, Albumin 2.6 L, Globulin 3.6 H, Albumin/G lobulin Ratio 0.7 L 01/04/19 21:00: Lactate 1.5 01/05/19 02:00: Troponin I < 0.02 01/05/19 05:05: Sodium 144, Potassium 3.6, Chloride 108 H, Carbon Dioxide 27, Anion Gap 12.6, BUN 16 D, Creatinine 0.71, Estimated Creat Clear 53, Estimated GFR 82, Est GFR ( Amer) 99, Glucose 281 H D, Calcium 8.2 L, Magnesium 1.6, Troponin I < 0.02 01/05/19 05:05: WBC 7.2 D, RBC 4.02 L, Hgb 12.2, Hct 40.0, MCV 99.4 H, MCH 30.2, MCHC 30.4 L, RDW 14.9, Plt Count 239, MPV 8.1, Neut % (Auto) 86.9 H, Lymph % (Auto) 8.9 L, [place] % (Auto) 3.9, Eos % (Auto) 0.2, Baso % (Auto) 0.1, Neut # (Auto) 6.2, Lymph # (Auto) 0.6 L, [place] # (Auto) 0.3, Eos # (Auto) 0.0, Baso # (Auto) 0.0, Total Counted 100, Neutrophils % (Manual) 87 H, Band Neutrophils % 7.0, Lymphocytes % (Manual) 6 L, Platelet Estimate Normal, Hypochromasia 1+, Mac rocytosis 2+ I & O for Last 24 hours: Intake & Output 01/02/19 01/03/19 01/04/19 01/05/19 23:59 23:59 23:59 23:59 Intake Total 1300 / 1300 393 / 393 Balance 1300 / 1300 393 / 393 Weight 57.606 kg 62.199 kg Microbiology Reports for the Last 24 Hours: Microbiology 01/04/19 21:00 Urine,Catheterized Urine Culture - Preliminary Gram Negative Rods - *Routine HEENT Exam Head: Present: normocephalic Eye: Present: EOMI, PERRL ENT: Present: mucous membranes moist - *Routine Neck Exam Present: supple. Absent: lymphadenopathy - *Routine Respiratory Exam Present: CTA bilaterally - *Routine Cardiovascular Exam Present: RRR - *Routine Abdominal Exam Present: soft, normoactive bowel sounds. Absent: tenderness - *Routine Extremities Exam Absent: cyanosis, clubbing, edema - *Routine Skin Exam Present: warm. Absent: rash - *Routine Neurological Exam Present: alert, oriented X3 Assessment and Plan (1) Sepsis Current visit: Yes Status: Acute Category: Medical Code(s): A41.9 - Sepsis, unspecified organism Tachycardia greater than 90 on presentation, leukocytosis, source with urine. Continue antibiotics. Seems to be improving already with fluids and treatment. (2) UTI (urinary tract infection) Current visit: Yes Status: Acute Qualifiers: Urinary tract infection type: site unspecified Hematuria presence: without hematuria Qualified Code(s): N39.0 - Urinary tract infection, site not specified Category: Medical Code(s): N39.0 - Urinary tract infection, site not specified Urine culture pending. De-escalate antibiotics when appropriate. Continue IV for now (3) Dehydration Current visit: No Status: Acute Category: Medical Code(s): E86.0 - Dehydration Continue maintenance IV fluids. Continue to promote p.o. intake (4) Diabetes mellitus Current visit: No Status: Chronic Qualifiers: Diabetes mellitus type: type 2 Diabetes mellitus shelter insulin use: without shelter use Diabetes mellitus complication status: without complication Qualified Code(s): E11.9 - Type 2 diabetes mellitus without complications Category: Medical Code(s): E11.9 - Type 2 diabetes mellitus without complications Sliding scale insulin while admitted. (5) Hypertensive heart disease Current visit: No Status: Chronic Qualifiers: Heart failure presence: without heart failure Qualified Code(s): I11.9 - Hypertensive heart disease without heart failure Category: Medical Code(s): I11.9 - Hypertensive heart disease without heart failure Continue home regimen. (6) Tobacco dependence syndrome Current visit: No Status: Chronic Category: Medical Code(s): F17.200 - Nicotine dependence, unspecified, uncomplicated Nicotine replacement while admitted - Assessment and plan all Dx Assessment and Plan for all problems:: 68-year-old female with initial concern for pneumonia and UTI on admission. At this time no clear source for pneumonia and asymptomatic however patient had altered mental status and significant finding on UA for UTI. Gram-negative rods growing at this time. We will continue inpatient management with IV antibiotics pending sensitivity and de-escalate when appropriate. Physical therapy consultation due to weakness as patient may benefit from home health PT or change in DME at time of discharge. Continues to require inpatient admission. full code
--- NOTE | 2019-01-06 09:15 | Discharge Summary ---
General - General Admission date:: 01/05/19 Discharge date: 01/06/19 HPI HPI: 68-year-old female with 1 week of worsening fatigue, weakness, confusion. Not feeling herself is how she puts it on interview this morning. She is also been having increased urinary frequency and dysuria. Initially presented to the ER on where she was found to have no abnormalities and sent home. Represented yesterday due to progression of symptoms and found to have significant UTI, tachycardia above 90, and leukocytosis concerning for sepsis. She was initiated on antibiotics and fluids. Admitted to medicine for further management of sepsis secondary to UTI. This morning states she is feeling somewhat better however only about 50% of normal. Family is at bedside and states that she has been very weak and having difficulty at home with her ADLs. Denies any fevers, nausea or vomiting, . Has had some loose stools but no alpa diarrhea. No flank pain or abdominal pain. Hospital Course Hospital Course: Admitted for UTI, weakness, suspected pneumonia on imaging. Patient had no oxygen requirement respiratory symptoms but was treated with broad-spectrum antibiotics to cover both UTI and pneumonia. Weakness improved during admission and after initiating therapy. Urine culture showed E. coli that is sensitive to cephalosporins, fluoroquinolones. Will transition to oral therapy today. Give final dose of azithromycin today and transition to Omnicef for 5 additional days of therapy (7 days total of treatment for pneumonia and UTI). Patient states she is back to about 75% her baseline. Hemodynamically stable at this time. Medically stable for discharge home. Tolerating p.o. intake. Denies shortness of breath, chest pain, fever, nausea, vomiting, diarrhea. Ambulating with assistance to the bathroom, voiding independently. Plan for home health PT, will set up tomorrow during regular business hours Objective Vital signs: Temp Pulse Resp BP Pulse Ox 98.6 F 75 18 143/68 H 93 L 01/06/19 07:44 01/06/19 07:44 01/06/19 07:44 01/06/19 07:44 01/06/19 07:44 Narrative: - *Routine HEENT Exam Head: Present: normocephalic Eye: Present: EOMI, PERRL ENT: Present: mucous membranes moist - *Routine Neck Exam Present: supple. Absent: lymphadenopathy - *Routine Respiratory Exam Present: Good air movement bilaterally, clear in the anterior lung russell, no rhonchi or wheeze. Faint bibasilar crackles in posterior lung russell - *Routine Cardiovascular Exam Present: RRR, no murmur - *Routine Abdominal Exam Present: soft, normoactive bowel sounds. Absent: tenderness - *Routine Extremities Exam Absent: cyanosis, clubbing, edema - *Routine Skin Exam Present: warm. Absent: rash - *Routine Neurological Exam Present: alert, oriented X3 Results Labs on day of discharge: Labs from last 24 hours 01/06/19 01/05/19 01/05/19 06:12 20:44 16:40 POC Glucose 84 280 H 371 H* 01/05/19 01/05/19 12:07 06:17 POC Glucose 285 H 255 H DS: Diagnosis - Discharge Diagnosis (1) Sepsis Status: Resolved (2) UTI (urinary tract infection) Status: Acute (3) Dehydration Status: Acute (4) Diabetes mellitus Status: Chronic (5) Hypertensive heart disease Status: Chronic (6) Tobacco dependence syndrome Status: Chronic Discharge Plan - Patient Discharge Instructions ACTIVITY: Continue current activity DIET: continue same diet Patient Instructions: DI for Pneumonia -- Adult, DI for Urinary Tract Infection (UTI), How to Prevent Falls, DI for Sepsis -- Adult - Follow up Plan Follow up with: Steven Dao MD [Staff Physician] - Disposition: Home, Self-Custodial Medications: Home Medications Medication Instructions Recorded Confirmed Type atorvastatin 80 mg tablet 80 mg PO HS 04/05/17 01/05/19 History carvedilol 25 mg tablet 37.5 mg PO BID tab 04/05/17 01/04/19 History gabapentin 100 mg capsule 300 mg PO TID cap 04/05/17 01/04/19 History lisinopril 40 mg tablet 40 mg PO BID tab 04/05/17 01/04/19 History magnesium 400 mg (as magnesium 400 mg PO BID cap 04/05/17 01/04/19 History oxide) capsule hydralazine 50 mg tablet 25 mg PO TID tab 04/06/17 01/04/19 History lorazepam 0.5 mg tablet 0.5 mg PO TID tab 04/06/17 01/04/19 History amlodipine 10 mg tablet 5 mg PO DAILY tab 09/14/17 01/05/19 History aspirin 325 mg tablet 325 mg PO DAILY tab 09/14/17 01/04/19 History glimepiride 2 mg tablet 2 mg PO BID tab 09/14/17 01/05/19 History metformin 500 mg tablet 1,000 mg PO BID tab 09/14/17 01/04/19 History folic acid 1 mg tablet 1 mg PO DAILY 02/22/18 01/04/19 History methotrexate sodium 5 mg tablet 12.5 mg PO WEEKLY 02/22/18 01/05/19 History Isosorbide Mononitrate [Imdur 30mg 30 mg PO DAILY 03/26/18 01/04/19 History ER tablet] Meloxicam 7.5 mg PO DAILY 03/26/18 01/04/19 History buPROPion HCl [Bupropion HCl Sr] 150 mg PO BID 01/03/19 01/04/19 History Cefdinir [Omnicef 300mg Capsule] 300 mg PO BID 5 Days #10 cap 01/06/19 Rx Prescriptions/Medication Reconciliation: New Cefdinir [Omnicef 300mg Capsule] 300 mg PO BID 5 Days #10 cap Continued atorvastatin 80 mg tablet 80 mg PO HS carvedilol 25 mg tablet 37.5 mg PO BID tab gabapentin 100 mg capsule 300 mg PO TID cap lisinopril 40 mg tablet 40 mg PO BID tab magnesium 400 mg (as magnesium oxide) capsule 400 mg PO BID cap lorazepam 0.5 mg tablet 0.5 mg PO TID tab amlodipine 10 mg tablet 5 mg PO DAILY tab folic acid 1 mg tablet 1 mg PO DAILY hydralazine 50 mg tablet 25 mg PO TID tab metformin 500 mg tablet 1,000 mg PO BID tab aspirin 325 mg tablet 325 mg PO DAILY tab glimepiride 2 mg tablet 2 mg PO BID tab methotrexate sodium 5 mg tablet 12.5 mg PO WEEKLY Meloxicam 7.5 mg PO DAILY Isosorbide Mononitrate [Imdur 30mg ER tablet] 30 mg PO DAILY buPROPion HCl [Bupropion HCl Sr] 150 mg PO BID Discontinued Azithromycin [Zithromax 250mg tab] 250 mg PO DIRECTED - Problem Reconciliation Problems Reviewed?: Yes
== END 2019-01-06 15:59 | disposition home or self-care (01) ==
LOC: ER 20:16 → 2ND 20:16
PROVIDERS: ADMIT Emergency Medicine; ATTEND Internal Medicine Adolescent Medicine
CPT/HCPCS: 36415; 70450; 71020; 71046; 72125; 73502; 80048; 80053; 81001; 82962; 83605; 83735; 84484; 85007; 85025; 85651; 86140; 87040; 87086; 87088; 87186; 96365; 96367; 96375; 99284; G0378; J0456

== ENCOUNTER 2019-05-20 13:09 | Observation (INO) ==
--- NOTE | 2019-05-20 14:08 | Pharmacy Consult Notes ---
[facility] Pharmacy VTE Monitoring - Patient Demographics Admission date: 05/20/19 Report Date: 05/20/19 Time: 14:07 Allergies/Adverse Reactions: Patient Allergies naproxen Allergy (Mild, Verified 03/15/19 09:23) IV contrast Allergy (Mild, Uncoded 03/15/19 09:23) Height: 1.52 m Weight: 62.652 kg - Prophylaxis VTE Prophylaxis Ordered?: Yes Types of VTE Prophylaxis: TEDS Knee High Location of Applied Device: Bilateral Lower Extremeties
[2019-05-20 14:29] LABS: Albumin Level 3.8 g/dl (3.5-5.0); Albumin/Globulin Ratio 1.5 (1.1-1.8); Anion Gap 11.5 mEq/L (5-15); Bilirubin,Total 0.3 mg/dl (0.2-1.3); Calcium 9.2 mg/dl (8.4-10.2); Globulin 2.5 g/dL (1.3-3.2); Total Protein,Serum 6.3 g/dl (6.3-8.2)
[2019-05-20 15:05] LABS: Basophils # 0.1 K/mm3 (0-0.2); Basophils % 0.7 % (0.1-2.0); Eosinophils # 0.2 K/mm3 (0.0-0.4); Hematocrit 44.6 % (37.0-47.0); Hemoglobin 14.2 g/dL (12.2-16.2); Lymphocytes # 2.1 K/mm3 (0.7-4.5); Lymphocytes % 27.2 % (10-50); Mean Corpuscular Volume 95.3 fl (81-99); Mean Platelet Volume 9.2 fl (7.4-10.4); Monocytes # 0.6 K/mm3 (0.1-1.0); Monocytes % 8.3 % (1.7-9.3); Neutrophils # 4.8 K/mm3 (1.8-7.8); Neutrophils % 61.9 % (37.0-80.0); Platelet Count 219 K/mm3 (142-424); Red Blood Count 4.68 M/mm3 (4.20-5.40); White Blood Count 7.8 K/mm3 (4.8-10.8)
--- NOTE | 2019-05-20 16:51 | Electrocardiograph Report ---
APPROVED REPORT Exam: Resting ECG HR:65 bpm ECG Measurements Heart Rate 65 AXES WY 206 P 68 QRSd 90 QRS 90 QT 410 T84 QTc 426 <Conclusion> Sinus rhythm with occasional premature ventricular complexes Rightward axis Poor R Wave Progression NDST-T Changes Abnormal ECG Electronically signed by : Tin Barbosa, 05/20/2019 16:51:43
--- NOTE | 2019-05-20 17:39 | History & Physical Report ---
*Admission Date: 05/20/19 *Chief complaint: Mental status changes/confusion *History of present illness: 68-year-old white female with history of stroke disease, chronic right hemiplegia, coronary disease, type 2 diabetes and recurrent urinary tract infections was brought to my office by her daughter today because of increasing confusion over the past week and a half. She notes increasing leg pain over the past month or so, we had started gabapentin several weeks ago in the office and recently this has been uptitrated at home to the prescribed dose over the past week and a half and this has been associated with concomitant increase in some confusion behaviors but also some intermittent dysuria and frequency/urgency with sometimes inability to void. In the office she was found to be minimally dry on exam, left-sided facial drooping was noted, slightly worse right sided weakness was noted, and she was admitted to the hospital for further diagnostic testing. [facility] History I have reviewed the patient's past medical history: Yes Medical History: Reports:: Coronary Artery Disease, Cerebrovascular Accident, Diabetes Mellitus Type 2, Hyperlipidemia, Hypertension, Myocardial Infarction Denies:: Cancer, Diabetes Mellitus Type 1, MRSA *Have you ever received a pneumonia vaccine?: No *Have you received a flu vaccine this season?: No Other Medical History: Reports: Arthritis Laterality Cases: Bilateral: Other Other Surgeries: Yes: CABG, Hysterectomy-Total, Other Amputation: No Fractures: No - *Social History Smoking Status: Current every day smoker Tobacco Type: cigarettes # Packs/Day (cigarettes): 2 #Yrs smoked (if former smoker): 50 Alcohol Intake: never Alcohol Intake Frequency:: other Substance Use Type: denies use *Occupational Status:: retired Housing: house Household Members: children *Travel in the last 8 weeks: None Family Hx:: Coronary Artery Disease, Diabetes, Heart Attack Review of Systems - Review of Systems Review of systems:: pertinent systems reviewed and negative unless documented below - Constitutional Reports anorexia, Denies body ache(s), Denies fever(s) - Eyes Denies blind spots, Denies blurry vision - ENT Reports poor balance, Reports dizziness, Reports dry mouth, Denies abnormal hearing - *Cardiovascular Reports leg pain with activity, Denies chest pain, Denies chest pain at rest, Denies shortness of breath with activity, Denies generalized swelling - *Respiratory Denies change in phlegm color, Denies chest congestion, Denies shortness of breath, Denies shortness of breath with activity - *Gastrointestinal Denies abdominal pain, Denies change in bowel habits, Denies change in stools, Denies constipation - *Genitourinary Denies abnormal vaginal bleeding - *Musculoskeletal Reports abnormal walking - Integumentary/Breasts Denies acne, Denies change in skin color - *Neurologic Reports abnormal walking, Reports abnormal speech, Reports behavioral changes - Psychiatric Reports behavioral changes, Denies hearing things others do not hear, Denies change in appetite - Allergic/Immunologic Denies GI upset with certain foods Meds Home Medications Medication Instructions Recorded Confirmed Type atorvastatin 80 mg tablet 80 mg PO HS 04/05/17 05/20/19 History carvedilol 25 mg tablet 37.5 mg PO BID tab 04/05/17 05/20/19 History gabapentin 100 mg capsule 300 mg PO TID cap 04/05/17 05/20/19 History lisinopril 40 mg tablet 40 mg PO BID tab 04/05/17 05/20/19 History magnesium oxide 400 mg PO BID cap 04/05/17 05/20/19 History hydralazine 50 mg tablet 25 mg PO TID tab 04/06/17 05/20/19 History lorazepam 0.5 mg tablet 0.5 mg PO HS tab 04/06/17 05/20/19 History aspirin 325 mg tablet 325 mg PO DAILY tab 09/14/17 05/20/19 History metformin 500 mg tablet 1,000 mg PO BID tab 09/14/17 05/20/19 History folic acid 1 mg tablet 1 mg PO DAILY 02/22/18 05/20/19 History methotrexate sodium 5 mg tablet 12.5 mg PO WEEKLY 02/22/18 05/20/19 History Isosorbide Mononitrate [Imdur 30mg 30 mg PO DAILY 03/26/18 05/20/19 History ER tablet] Meloxicam 7.5 mg PO DAILY 03/26/18 05/20/19 History Amlodipine Besylate [Amlodipine 5 mg PO DAILY 05/20/19 05/20/19 History 5mg tab] buPROPion HCL [Bupropion HCl Sr] 150 mg PO BID 05/20/19 05/20/19 History Allergies Allergy/AdvReac Type Severity Reaction Status Date / Time naproxen Allergy Mild Verified 03/15/19 09:23 IV contrast Allergy Mild Uncoded 03/15/19 09:23 Exam Vital signs and Labs for Last 24 Hours: Temp Pulse Resp BP Pulse Ox 97.5 F L 59 L 18 137/74 95 05/20/19 15:33 05/20/19 15:33 05/20/19 15:33 05/20/19 15:33 05/20/19 15:33 Laboratory Results - last 24 hr 05/20/19 13:55: WBC 7.8, RBC 4.68, Hgb 14.2, Hct 44.6, MCV 95.3, MCH 30.5, MCHC 32.0, RDW 14.0, Plt Count 219, MPV 9.2, Neut % (Auto) 61.9, Lymph % (Auto) 27.2, [place] % (Auto) 8.3, Eos % (Auto) 2.0, Baso % (Auto) 0.7, Neut # (Auto) 4.8, Lymph # (Auto) 2.1, [place] # (Auto) 0.6, Eos # (Auto) 0.2, Baso # (Auto) 0.1 05/20/19 13:55: Sodium 137, Potassium 3.5, Chloride 99, Carbon Dioxide 30, Anion Gap 11.5, BUN 25 H, Creatinine 0.80, Estimated Creat Clear 53, Estimated GFR 71, Est GFR ( Amer) 86, Glucose 199 H, Calcium 9.2, Magnesium 1.6, Total Bilirubin 0.3, AST 27, ALT 24, Alkaline Phosphatase 127 H, Total Protein 6.3, Albumin 3.8, Globulin 2.5, Albumin/Globulin Ratio 1.5 05/20/19 15:50: Urine Color Yellow, Urine Appearance Clear, Urine pH 6.0, Ur Specific [place] <= 1.005, Urine Protein Negative, Urine Glucose (UA) Negative, Urine Ketones Negative, Urine Blood 1+, Urine Nitrate Negative, Urine Bilirubin Negative, Urine Urobilinogen 0.2, Ur Leukocyte Esterase Negative, Urine RBC 3-5, Urine WBC 10-20 A, Ur Squamous Epith Cells Occasional, Urine Bacteria 2+ A 05/20/19 17:07: POC Glucose 132 H I & O for Last 24 hours: Intake & Output 05/18/19 05/19/19 05/20/19 05/21/19 11:59 11:59 11:59 11:59 Intake Total 360 / 360 Balance 360 / 360 Weight 138 lb 2 oz Narrative: Patient was pleasant in the office but clearly somewhat lethargic and confused over baseline. Right arm and leg weakness noted, which is her baseline but was slightly more pronounced than normal. Lungs have good air movement. Clear. Oropharynx dry but clear. Left-sided facial drooping as previously noted visible. Heart rate regular. No carotid bruit. Good distal perfusion. Abdomen soft, nontender. Assessment and Plan (1) Cerebral atrophy Current visit: Yes Status: Acute Category: Medical Code(s): G31.9 - De generative disease of nervous system, unspecified CT of head with contrast showed basal ganglia damage and cerebral atrophy from old stroke. Certainly contributes to ataxia issues but no evidence of new finding. I do not think MRI is needed given the fact her symptoms have been present for a week and a half. (2) Ataxia Current visit: Yes Status: Acute Category: Medical Code(s): R27.0 - Ataxia, unspecified Multifactorial, possible UTI superimposed on cerebral damage from old stroke. PT/OT evaluation to see if home health referral would be warranted on discharge (3) Dehydration Current visit: No Status: Acute Category: Medical Code(s): E86.0 - Dehydration (4) UTI (urinary tract infection) Current visit: No Status: Acute Qualifiers: Urinary tract infection type: site unspecified Hematuria presence: without hematuria Qualified Code(s): N39.0 - Urinary tract infection, site not specified Category: Medical Code(s): N39.0 - Urinary tract infection, site not specified Cath urine specimen with bacteria. Start ceftriaxone, await cultures. (5) Diabetes mellitus Current visit: No Status: Chronic Qualifiers: Diabetes mellitus type: type 2 Diabetes mellitus penitentiary insulin use: without penitentiary use Diabetes mellitus complication status: without complication Qualified Code(s): E11.9 - Type 2 diabetes mellitus without complications Category: Medical Code(s): E11.9 - Type 2 diabetes mellitus without complications Complicates her care. No changes in plan
--- NOTE | 2019-05-20 22:53 | Discharge Summary ---
General - General Admission date:: 05/20/19 Discharge date: 05/21/19 HPI HPI: 68-year-old white female with history of stroke disease, chronic right hemiplegia, coronary disease, type 2 diabetes and recurrent urinary tract infections was brought to my office by her daughter today because of increasing confusion over the past week and a half. She notes increasing leg pain over the past month or so, we had started gabapentin several weeks ago in the office and recently this has been uptitrated at home to the prescribed dose over the past week and a half and this has been associated with concomitant increase in some confusion behaviors but also some intermittent dysuria and frequency/urgency with sometimes inability to void. In the office she was found to be minimally dry on exam, left-sided facial drooping was noted, slightly worse right sided weakness was noted, and she was admitted to the hospital for further diagnostic testing. Hospital Course Hospital Course: Admitted for confusion and UTI. Did well overnight with IV antibiotics and fluids. Back to baseline this morning per daughter. Afebrile, denies nausea, vomiting, diarrhea. Will transition oral antibiotics treat for empiric course of 7 days. Last urine culture showed pansensitive E. coli. Has close follow-up scheduled in just under 2 weeks. Will reassess at that time. Continue to follow this urine culture for any adjustments that need to be made in the outpatient setting. Stable for discharge home Objective Vital signs: Temp Pulse Resp BP Pulse Ox 98.7 F 63 18 127/52 L 94 L 05/20/19 19:41 05/20/19 19:41 05/20/19 19:41 05/20/19 19:41 05/20/19 19:41 Narrative: Patient was pleasant on exam this morning. And oriented x3 Right arm and leg weakness noted, which is her baseline but was slightly more pronounced than normal. Lungs have good air movement. Clear. Oropharynx dry but clear. Left-sided facial drooping as previously noted visible. Heart rate regular. No carotid bruit. Good distal perfusion. Abdomen soft, nontender. Results Labs on day of discharge: Labs from last 24 hours 05/20/19 05/20/19 05/20/19 21:05 17:07 15:50 WBC RBC Hgb Hct MCV MCH MCHC RDW Plt Count MPV Neut % (Auto) Lymph % (Auto) [place] % (Auto) Eos % (Auto) Baso % (Auto) Neut # (Auto) Lymph # (Auto) [place] # (Auto) Eos # (Auto) Baso # (Auto) Sodium Potassium Chloride Carbon Dioxide Anion Gap BUN Creatinine Estimated Creat Clear Estimated GFR Est GFR ( Amer) Glucose POC Glucose 232 H 132 H Calcium Magnesium Total Bilirubin AST ALT Alkaline Phosphatase Total Protein Albumin Globulin Albumin/Globulin Ratio Urine Color Yellow Urine Appearance Clear Urine pH 6.0 Ur Specific [place] <= 1.005 Urine Protein Negative Urine Glucose (UA) Negative Urine Ketones Negative Urine Blood 1+ Urine Nitrate Negative Urine Bilirubin Negative Urine Urobilinogen 0.2 Ur Leukocyte Esterase Negative Urine RBC 3-5 Urine WBC 10-20 A Ur Squamous Epith Cells Occasional Urine Bacteria 2+ A 05/20/19 05/20/19 13:55 13:55 WBC 7.8 RBC 4.68 Hgb 14.2 Hct 44.6 MCV 95.3 MCH 30.5 MCHC 32.0 RDW 14.0 Plt Count 219 MPV 9.2 Neut % (Auto) 61.9 Lymph % (Auto) 27.2 [place] % (Auto) 8.3 Eos % (Auto) 2.0 Baso % (Auto) 0.7 Neut # (Auto) 4.8 Lymph # (Auto) 2.1 [place] # (Auto) 0.6 Eos # (Auto) 0.2 Baso # (Auto) 0.1 Sodium 137 Potassium 3.5 Chloride 99 Carbon Dioxide 30 Anion Gap 11.5 BUN 25 H Creatinine 0.80 Estimated Creat Clear 53 Estimated GFR 71 Est GFR ( Amer) 86 Glucose 199 H POC Glucose Calcium 9.2 Magnesium 1.6 Total Bilirubin 0.3 AST 27 ALT 24 Alkaline Phosphatase 127 H Total Protein 6.3 Albumin 3.8 Globulin 2.5 Albumin/Globulin Ratio 1.5 Urine Color Urine Appearance Urine pH Ur Specific [place] Urine Protein Urine Glucose (UA) Urine Ketones Urine Blood Urine Nitrate Urine Bilirubin Urine Urobilinogen Ur Leukocyte Esterase Urine RBC Urine WBC Ur Squamous Epith Cells Urine Bacteria DS: Diagnosis - Discharge Diagnosis (1) Cerebral atrophy Status: Acute (2) Ataxia Status: Acute (3) Dehydration Status: Acute (4) UTI (urinary tract infection) Status: Acute (5) Diabetes mellitus Status: Chronic Discharge Plan - Patient Discharge Instructions ACTIVITY: Continue current activity DIET: continue same diet - Follow up Plan Follow up with: Roe Gleason MD [Primary Care Provider] - (Appointment already scheduled) Disposition: Home Health Service Home Medications: Home Medications Medication Instructions Recorded Confirmed Type atorvastatin 80 mg tablet 80 mg PO HS 04/05/17 05/20/19 History carvedilol 25 mg tablet 37.5 mg PO BID tab 04/05/17 05/20/19 History gabapentin 100 mg capsule 300 mg PO TID cap 04/05/17 05/20/19 History lisinopril 40 mg tablet 40 mg PO BID tab 04/05/17 05/20/19 History magnesium oxide 400 mg PO BID cap 04/05/17 05/20/19 History hydralazine 50 mg tablet 25 mg PO TID tab 04/06/17 05/20/19 History lorazepam 0.5 mg tablet 0.5 mg PO HS tab 04/06/17 05/20/19 History aspirin 325 mg tablet 325 mg PO DAILY tab 09/14/17 05/20/19 History metformin 500 mg tablet 1,000 mg PO BID tab 09/14/17 05/20/19 History folic acid 1 mg tablet 1 mg PO DAILY 02/22/18 05/20/19 History Isosorbide Mononitrate [Imdur 30mg 30 mg PO DAILY 03/26/18 05/20/19 History ER tablet] Meloxicam 7.5 mg PO DAILY 03/26/18 05/20/19 History Amlodipine Besylate [Amlodipine 5 mg PO DAILY 05/20/19 05/20/19 History 5mg tab] buPROPion HCL [Bupropion HCl Sr] 150 mg PO BID 05/20/19 05/20/19 History Cefdinir [Omnicef 300mg Capsule] 300 mg PO BID 5 Days #10 cap 05/21/19 Rx metHOTREXate sodium [metHOTREXate 12.5 mg PO WEEKLY 05/21/19 05/21/19 History 2.5mg Tablet] Prescriptions/Medication Reconciliation: Continued atorvastatin 80 mg tablet 80 mg PO HS carvedilol 25 mg tablet 37.5 mg PO BID tab lisinopril 40 mg tablet 40 mg PO BID tab magnesium oxide 400 mg PO BID cap lorazepam 0.5 mg tablet 0.5 mg PO HS tab folic acid 1 mg tablet 1 mg PO DAILY hydralazine 50 mg tablet 25 mg PO TID tab metformin 500 mg tablet 1,000 mg PO BID tab aspirin 325 mg tablet 325 mg PO DAILY tab Meloxicam 7.5 mg PO DAILY Isosorbide Mononitrate [Imdur 30mg ER tablet] 30 mg PO DAILY Amlodipine Besylate [Amlodipine 5mg tab] 5 mg PO DAILY metHOTREXate sodium [metHOTREXate 2.5mg Tablet] 12.5 mg PO WEEKLY buPROPion HCL [Bupropion HCl Sr] 150 mg PO BID Changed Gabapentin [Gabapentin 100mg Cap] 300 mg PO BID #0 cap - Problem Reconciliation Problems Reviewed?: Yes
== END 2019-05-21 12:35 | disposition home health service (06) ==
LOC: 2ND
PROVIDERS: ADMIT Internal Medicine Adolescent Medicine; ATTEND Internal Medicine Adolescent Medicine
CPT/HCPCS: 70450; 71020; 71046; 80053; 81001; 82962; 83735; 85025; 87086; 87088; 87186; 93005; 97162; 97165; G0378

== ENCOUNTER → 2020-01-16 11:08 | Outpatient (CLI) | payer MEDICARE, MEDICAID, SELFPAY ==
--- NOTE | 2020-01-16 11:16 | XR_ITS ---
PROCEDURE: XR CHEST PORTABLE CLINICAL HISTORY: COVID OUTPATIENT Shortness of air COMPARISON: CR XR CHEST 2V from 01/03/2019 CR XR CHEST 2V from 01/04/2019 DX XR CHEST 2V from 05/20/2019 FINDINGS: Prior median sternotomy. Normal heart size. There are slight increased markings in the right suprahilar region. This may be related overlying prominence of the 1st rib. Nonspecific nodular opacity is present in the right midlung laterally measuring 5 mm. There has been a prior CABG. No lobar consolidation or collapse. No acute bony abnormalities. IMPRESSION: No acute finding. Increased markings right suprahilar region likely overlapping bony structures. Nonspecific 5 mm right midlung nodular density. Consider upright PA and lateral chest for further evaluation. Dictated by: Naif Almeida MD 01/16/2020 14:17 Naif Almeida MD in [place] 01/16/2020 14:17
[2020-01-16 12:13] LABS: Basophils # 0.1 K/mm3 (0-0.2); Basophils % 0.7 % (0.1-2.0); Eosinophils # 0.5 K/mm3 (0.0-0.4); Eosinophils % 4.3 % (0.1-12.0); Hematocrit 45.3 % (37.0-47.0); Hemoglobin 14.3 g/dL (12.2-16.2); Lymphocytes # 2.8 K/mm3 (0.7-4.5); Lymphocytes % 24.6 % (10-50); Mean Corpuscular HGB Conc 31.7 g/dL (31.8-35.4); Mean Corpuscular Hemoglobin 29.4 pg (27.0-31.2); Mean Corpuscular Volume 92.9 fl (81-99); Mean Platelet Volume 9.2 fl (7.4-10.4); Monocytes # 0.6 K/mm3 (0.1-1.0); Monocytes % 5.2 % (1.7-9.3); Neutrophils # 7.4 K/mm3 (1.8-7.8); Neutrophils % 65.2 % (37.0-80.0); Platelet Count 268 K/mm3 (142-424); Red Blood Count 4.87 M/mm3 (4.20-5.40); Red Cell Distribution Width 13.3 % (11.5-17.5); White Blood Count 11.3 K/mm3 (4.8-10.8)
[2020-01-16 13:48] LABS: Chloride 103 mmol/L (98-107); Sodium 140 mmol/L (136-145)
[2020-01-16 13:49] LABS: Potassium 4.6 mmoL/L (3.5-5.1)
[2020-01-16 13:51] LABS: Alanine Aminotransferase 32 U/L (12-78); Albumin Level 3.9 g/dl (3.5-5.0); Albumin/Globulin Ratio 1.5 (1.1-1.8); Alkaline Phosphatase 124 U/L (38-126); Anion Gap 14.6 mEq/L (5-15); Aspartate Amino Transferase 37 U/L (14-36); Bilirubin,Total 0.5 mg/dl (0.2-1.3); Blood Urea Nitrogen 16 mg/dl (7-17); Carbon Dioxide 27 mmol/L (22.0-30.0); Estimated Glomerular Filt Rate 122 ml/min (>60); GFR (African American) 148 ML/MIN (>60); Globulin 2.6 g/dL (1.3-3.2); Total Protein,Serum 6.5 g/dl (6.3-8.2)
[2020-01-16 13:52] LABS: Calcium 9.4 mg/dl (8.4-10.2); Glucose 97 mg/dl (74-100)
== END ==
PROVIDERS: PCP Internal Medicine Adolescent Medicine; Visit Provider Internal Medicine Adolescent Medicine
DX: Z03.818 Encounter for observation for suspected exposure to other biological agents ruled out (principal); J18.0 Bronchopneumonia, unspecified organism
CPT/HCPCS: 36415; 71045; 80053; 85025; U0003

== ENCOUNTER → 2020-03-13 11:06 | Outpatient (CLI) | payer MEDICARE, MEDICAID, SELFPAY ==
[2020-03-13 12:26] LABS: Anion Gap 11.3 mEq/L (5-15); Blood Urea Nitrogen 13 mg/dl (7-17); Calcium 9.5 mg/dl (8.4-10.2); Carbon Dioxide 33 mmol/L (22.0-30.0); Chloride 97 mmol/L (98-107); Estimated Glomerular Filt Rate 122 ml/min (>60); GFR (African American) 148 ML/MIN (>60); Glucose 169 mg/dl (74-100); Potassium 4.3 mmoL/L (3.5-5.1); Sodium 137 mmol/L (136-145)
[2020-03-13 12:35] LABS: NT Pro Brain Natriuretic Pep. 517 pg/mL (0-125)
== END ==
PROVIDERS: Visit Provider Internal Medicine Cardiovascular Disease
DX: R06.00 Dyspnea, unspecified; I25.10 Atherosclerotic heart disease of native coronary artery without angina pectoris; I11.9 Hypertensive heart disease without heart failure; E78.5 Hyperlipidemia, unspecified; F17.200 Nicotine dependence, unspecified, uncomplicated; I65.29 Occlusion and stenosis of unspecified carotid artery; Z86.73 Personal history of transient ischemic attack (TIA), and cerebral infarction without residual deficits; Z95.1 Presence of aortocoronary bypass graft
CPT/HCPCS: 36415; 80048; 83880

== ENCOUNTER → 2020-04-02 10:17 | Outpatient (CLI) | payer MEDICARE, MEDICAID, SELFPAY ==
[2020-04-02 12:02] LABS: Anion Gap 14.3 mEq/L (5-15); Blood Urea Nitrogen 17 mg/dl (7-17); Calcium 9.4 mg/dl (8.4-10.2); Carbon Dioxide 32 mmol/L (22.0-30.0); Chloride 96 mmol/L (98-107); Estimated Glomerular Filt Rate 83 ml/min (>60); GFR (African American) 100 ML/MIN (>60); Glucose 190 mg/dl (74-100); Potassium 4.3 mmoL/L (3.5-5.1); Sodium 138 mmol/L (136-145)
[2020-04-02 12:13] LABS: NT Pro Brain Natriuretic Pep. 276 pg/mL (0-125)
== END ==
PROVIDERS: Visit Provider Urology
DX: E78.5 Hyperlipidemia, unspecified (principal); F17.200 Nicotine dependence, unspecified, uncomplicated; I11.9 Hypertensive heart disease without heart failure; I25.10 Atherosclerotic heart disease of native coronary artery without angina pectoris; Z86.73 Personal history of transient ischemic attack (TIA), and cerebral infarction without residual deficits; Z95.1 Presence of aortocoronary bypass graft; R06.02 Shortness of breath; I65.23 Occlusion and stenosis of bilateral carotid arteries
CPT/HCPCS: 36415; 80048; 83880

== ENCOUNTER 2020-05-02 10:18 | Observation (INO) | payer MEDICARE, MEDICAID, SELFPAY ==
[2020-05-02] VITALS (13 sets, daily range): BP systolic 113–158; BP diastolic 51–84; PULSE 71–97; RESP 16–24; TEMP 36.5–36.8; O2SAT 88–95; BMI 28.3; BMI 27.7
--- NOTE | 2020-05-02 10:33 | ECG_ITS ---
APPROVED REPORT Exam: Resting ECG HR:74 bpm ECG Measurements Heart Rate 74 AXES MI 186 P 64 QRSd 84 QRS -9 QT 386 T 102 QTc 428 Conclusion Normal sinus rhythm Possible Left atrial enlargement Inferior infarct, age undetermined Anterolateral infarct, age undetermined Abnormal ECG Electronically signed by : Roe Gleason, 05/04/2020 06:56:29
--- NOTE | 2020-05-02 10:37 | XR_ITS ---
PROCEDURE: XR CHEST AP CLINICAL HISTORY: sob Shortness of breath COMPARISON: CR XR CHEST 2V from 01/04/2019 DX XR CHEST 2V from 05/20/2019 CR XR CHEST PORTABLE from 01/16/2020 FINDINGS: Prior CABG. Normal heart size COPD changes. No lobar consolidation or collapse. No acute bony abnormalities. IMPRESSION: No acute findings. Dictated by: Naif Almeida MD 05/02/2020 12:40 Naif Almeida MD in [place] 05/02/2020 12:40
[2020-05-02 11:31] LABS: Alanine Aminotransferase 30 U/L (12-78); Albumin Level 3.8 g/dl (3.5-5.0); Albumin/Globulin Ratio 1.3 (1.1-1.8); Alkaline Phosphatase 139 U/L (38-126); Anion Gap 15.1 mEq/L (5-15); Aspartate Amino Transferase 29 U/L (14-36); Bilirubin,Total 0.4 mg/dl (0.2-1.3); Blood Urea Nitrogen 18 mg/dl (7-17); Calcium 9.5 mg/dl (8.4-10.2); Carbon Dioxide 33 mmol/L (22.0-30.0); Chloride 98 mmol/L (98-107); Creatinine Clearance Estimated 55 mL/min (50-200); Estimated Glomerular Filt Rate 62 ml/min (>60); GFR (African American) 75 ML/MIN (>60); Globulin 2.9 g/dL (1.3-3.2); Glucose 170 mg/dl (74-100); Potassium 4.1 mmoL/L (3.5-5.1); Sodium 142 mmol/L (136-145); Total Protein,Serum 6.7 g/dl (6.3-8.2)
[2020-05-02 11:32] LABS: Basophils # 0.1 K/mm3 (0-0.2); Basophils % 0.7 % (0.1-2.0); Eosinophils # 0.6 K/mm3 (0.0-0.4); Eosinophils % 6.2 % (0.1-12.0); Hematocrit 44.6 % (37.0-47.0); Hemoglobin 14.8 g/dL (12.2-16.2); Lymphocytes # 2.4 K/mm3 (0.7-4.5); Mean Corpuscular HGB Conc 33.1 g/dL (31.8-35.4); Mean Corpuscular Hemoglobin 29.9 pg (27.0-31.2); Mean Corpuscular Volume 90.2 fl (81-99); Mean Platelet Volume 8.1 fl (7.4-10.4); Monocytes # 0.7 K/mm3 (0.1-1.0); Monocytes % 8.1 % (1.7-9.3); Neutrophils # 5.4 K/mm3 (1.8-7.8); Platelet Count 255 K/mm3 (142-424); Red Blood Count 4.94 M/mm3 (4.20-5.40); White Blood Count 9.1 K/mm3 (4.8-10.8)
[2020-05-02 11:33] LABS: Lactic Acid 4.2 mmol/L (0.7-2.1)
--- NOTE | 2020-05-02 11:37 | PC.NURSE ---
notified ER of critical lactic acid level.
--- NOTE | 2020-05-02 11:59 | HMH.EDGENADL ---
ED Disposition Clinical Impression: Respiratory failure with hypoxia Qualifiers: Chronicity: acute Qualified Code(s): J96.01 - Acute respiratory failure with hypoxia COPD (chronic obstructive pulmonary disease) Qualifiers: COPD type: unspecified COPD Qualified Code(s): J44.9 - Chronic obstructive pulmonary disease, unspecified Acute bronchitis Qualifiers: Bronchitis organism: unspecified organism Qualified Code(s): J20.9 - Acute bronchitis, unspecified Disposition: Admitted as Observation Condition on Discharge: Fair Referrals: Roe Gleason MD [Primary Care Provider] - - Critical Care Critical Care Time: No Attestation: On 05/02/20, the high probability of a clinically significant, sudden or life threatening deterioration of the following system(s) required my full and direct attention, intervention and personal management. The time I documented below is in addition to time spent performing reported procedures but includes the following listed in this critical care notation. Medical Decision Making - Jose Inquiry Pt receiving controlled substance: No Vital Signs: 05/02/20 10:19 05/02/20 10:55 05/02/20 11:27 Temperature 98.1 F Temperature Source Oral Pulse Rate [Left Radial] 86 74 76 Respiratory Rate 24 Blood Pressure [Right Arm] 131/62 152/53 H 116/55 L Blood Pressure Mean [Right Arm] 85 86 75 Blood Pressure Source [Right Arm] Automatic Cuff Automatic Cuff Automatic Cuff Blood Pressure Position [Right Arm] Sitting Sitting Sitting 02 Sat by Pulse Oximetry 94 L 94 L 93 L Oxygen Delivery Method Nasal Cannula Nasal Cannula Nasal Cannula Oxygen Flow Rate (LPM) 2 2 2 05/02/20 11:58 05/02/20 12:28 05/02/20 13:00 Temperature Temperature Source Pulse Rate [Left Radial] 73 79 77 Respiratory Rate Blood Pressure [Right Arm] 121/62 123/54 L 129/84 Blood Pressure Mean [Right Arm] 81 77 99 Blood Pressure Source [Right Arm] Automatic Cuff Automatic Cuff Automatic Cuff Blood Pressure Position [Right Arm] Sitting Sitting Sitting 02 Sat by Pulse Oximetry 95 95 94 L Oxygen Delivery Method Nasal Cannula Nasal Cannula Nasal Cannula Oxygen Flow Rate (LPM) 2 2 2 05/02/20 13:35 Temperature Temperature Source Pulse Rate [Left Radial] 71 Respiratory Rate Blood Pressure [Right Arm] 120/59 L Blood Pressure Mean [Right Arm] 79 Blood Pressure Source [Right Arm] Automatic Cuff Blood Pressure Position [Right Arm] Sitting 02 Sat by Pulse Oximetry 93 L Oxygen Delivery Method Nasal Cannula Oxygen Flow Rate (LPM) 2 - Lab Data Lab results reviewed: Yes: I reviewed the patient's lab results. Lab Results 05/02/20 11:08: WBC 9.1, RBC 4.94, Hgb 14.8, Hct 44.6, MCV 90.2, MCH 29.9, MCHC 33.1, RDW 14.0, Plt Count 255, MPV 8.1, Neut % (Auto) 59.0, Lymph % (Auto) 26.0, [place] % (Auto) 8.1, Eos % (Auto) 6.2, Baso % (Auto) 0.7, Neut # (Auto) 5.4, Lymph # (Auto) 2.4, [place] # (Auto) 0.7, Eos # (Auto) 0.6 H, Baso # (Auto) 0.1 05/02/20 11:08: Sodium 142, Potassium 4.1, Chloride 98, Carbon Dioxide 33 H, Anion Gap 15.1 H, BUN 18 H, Creatinine 0.90, Estimated Creat Clear 55, Estimated GFR 62, Est GFR ( Amer) 75, Glucose 170 H, Calcium 9.5, Total Bilirubin 0.4, AST 29, ALT 30, Alkaline Phosphatase 139 H, Total Protein 6.7, Albumin 3.8, Globulin 2.9, Albumin/Globulin Ratio 1.3 05/02/20 11:08: Lactate 4.2 H 05/02/20 11:08: Troponin I < 0.01, NT-Pro-B Natriuret Pep 298 H 05/02/20 12:29: Specimen Source Right radial, O2 % 2lpm nc, ABG pH 7.36, ABG pCO2 42.8, ABG pO2 88.2, ABG HCO3 23.5, ABG Total CO2 24.8, ABG O2 Saturation 96, ABG Base Excess -2.0, Naif Test Acceptable Result diagrams: 05/02/20 11:08 05/02/20 11:08 Orders (Tests/Meds): ED MEDICATIONS Generic Name Dose Route Start Last Admin Trade Name Freq PRN Reason Stop Dose Admin Albuterol/Ipratropium 3 ml 05/02/20 14:00 Albuterol/Ipratropium 3 Ml Neb IH 06/01/20 13:59 QIDRT DEXTER Ceftriaxone Sodium 1 gm/ 50 mls @ 100 mls/hr 05/02/20 14:00
--- NOTE | 2020-05-02 12:00 | PC.NURSE ---
asked ER MD he would want fluid bolus started on pt r/t lactic acid level, ER MD states if pt does not meet SIRS criteria to wait on fluids bolus. He will see pt and place orders as needed. Pt only has 1 SIRS criteria at this time.
--- NOTE | 2020-05-02 12:12 | CT_ITS ---
PROCEDURE: CT CHEST WO CON CLINICAL INDICATION: soa, hypoxia COMPARISON: CT CT LUMBAR SPINE WO CON from 05/24/2019 CR XR CHEST AP from 05/02/2020 TECHNIQUE: Axial images obtained with sagittal and coronal reformats. All CT scans at the facility use one or more dose reduction, viz: automated exposure control, ma/kV adjustment per patient size (including targeted exams where dose is matched to indication, i.e. head), or iterative reconstruction technique. FINDINGS: HEART AND MEDIASTINAL STRUCTURES: There has been a prior CABG. No evidence of aortic aneurysm. There is extensive coronary artery calcification. There are few small mediastinal lymph nodes. LUNGS AND PLEURAL SPACES: There is a faint 5 mm nodular opacity in the left upper lobe image 34 series 3. There is trace right-sided effusion. Centrilobular and paraseptal emphysematous changes are present with scattered areas of scarring. There is mild diffuse bronchial thickening. Motion artifact does somewhat obscure fine detail. There is a faint haziness in the lung russell in the upper lobe centrally which could be due to very early ground-glass attenuation. BONY STRUCTURES: 50 percent anterior wedge compression change involves the T12 vertebral body with mild retro pulsion of the posterior superior aspect of T12 by approximately 3-4 mm. This has progressed since the previous CT of 05/24/2019 UPPER ABDOMEN: Unremarkable. ADDITIONAL FINDINGS: No other significant abnormalities. IMPRESSION: 1. COPD/centrilobular and paraseptal emphysema. 2. Bronchial thickening with perihilar and upper lobe haziness consistent with bronchitis and possible pneumonitis. 3. Nonspecific 5 mm left upper lobe nodule. Six-month follow-up suggested. 4. Compression fracture of T12 which is slightly worsened since the previous exam Dictated by: Naif Almeida MD 05/02/2020 13:19 Naif Almeida MD in [place] 05/02/2020 13:19
--- NOTE | 2020-05-02 12:22 | PC.NURSE ---
VALENTIN MORGAN spoke with Dr. López who is consumer insight manager for Dr Gleason
[2020-05-02 12:30] LABS: ABG HCO3 23.5 mmhg (22.0-26.0); ABG Oxygen Saturation 96 % (90-100); ABG PCO2 42.8 mmhg (35.0-45.0); ABG PH 7.36 mmol/L (7.35-7.45); ABG PO2 88.2 mmhg (80-100); ABG TCO2 24.8 mmhg (23-27)
--- NOTE | 2020-05-02 12:30 | PC.NURSE ---
Pt to rad.
[2020-05-02 12:32] LABS: Allen's Test Acceptable; Oxygen 2lpm nc %; Source Right Radial
[2020-05-02 13:12] LABS: NT Pro Brain Natriuretic Pep. 298 pg/mL (0-125)
[2020-05-02 13:14] LABS: Troponin I < 0.01 ng/ml (0.00-0.034)
--- NOTE | 2020-05-02 13:36 | PC.NURSE ---
per lab pt covid swab has approx 15 minutes left until resulted.
--- NOTE | 2020-05-02 13:53 | PC.NURSE ---
VALENTIN MORGAN speaking with Dr. López
--- NOTE | 2020-05-02 14:40 | PC.NURSE ---
report given to helen sheridan at this time
--- NOTE | 2020-05-02 15:04 | PC.NURSE ---
PT arrived to the floor at this time.
[2020-05-02 15:21] LABS: Reflex Lactic Add Lactic Reflex
[2020-05-02 16:12] LABS: Lactic Acid Follow Up (RFLX 1) 6.2 mmol/L (0.7-2.1)
[2020-05-02 17:26] LABS: POC Glucose,Bedside 364 (70-110)
[2020-05-02 17:56] LABS: Reflex Lactic (2 hrs) Add Lactic Reflex
[2020-05-02 18:33] LABS: Lactic Acid Follow up (RFLX 2) 7.1 mmol/L (0.7-2.1)
--- NOTE | 2020-05-02 19:24 | PC.NURSE ---
is aware of lactic acids. no new orders
[2020-05-02 21:09] LABS: POC Glucose,Bedside 387 (70-110)
[2020-05-03 04:00] VITALS: BP 131/82; PULSE 78; RESP 18; TEMP 36.4; O2SAT 95
[2020-05-03 04:54] VITALS: O2SAT 91; BMI 28.0
--- NOTE | 2020-05-03 04:55 | PC.NURSE ---
Addendum entered by Saskia Crane, KENDY 05/03/20 04:59: charted this note in wrong chart, the entered weight is now correct. Addendum entered by Saskia Crane, KENDY 05/03/20 04:56: we were able to get her on the scale and this was the closest number we could read before she became to weak but this isnt a full reading and another will be needed Original Note: patient was too weak to stand on a scale at this time. nurse made aware
[2020-05-03 05:58] VITALS: PULSE 61; O2SAT 94
[2020-05-03 06:06] LABS: POC Glucose,Bedside 332 (70-110)
--- NOTE | 2020-05-03 06:27 | PC.NURSE ---
no acute changes since prior assessment, pt has rested well t/o shift, AxOx4, remains on 2L NC with O2 sats 91-95%, breathing is unlabored and spontaneous, no complaints of SOA or CP
[2020-05-03 08:00] VITALS: BP 160/77; PULSE 107; RESP 16; TEMP 36.6; O2SAT 92
--- NOTE | 2020-05-03 08:19 | HMH.HP ---
*Admission Date: 05/02/20 *Chief complaint: SOA, cough, fever [facility] History Medical History: Reports:: Congestive Heart Failure, Coronary Artery Disease, Cerebrovascular Accident, Diabetes Mellitus Type 1, Hyperlipidemia, Hypertension, Myocardial Infarction Denies:: Cancer, Diabetes Mellitus Type 2, MRSA *Have you ever received a pneumonia vaccine?: Yes *Have you received a flu vaccine this season?: Yes Other Medical History: Reports: Arthritis Laterality Cases: Bilateral: Other Other Surgeries: Yes: CABG, Cardiac Surgery, Hysterectomy-Total, Hysterectomy-Partial, Other Amputation: No Fractures: No - *Social History Smoking Status: Current every day smoker Tobacco Type: cigarettes # Packs/Day (cigarettes): 1 #Yrs smoked (if former smoker): 50 Alcohol Intake: never Alcohol Intake Frequency:: other Substance Use Type: denies use *Occupational Status:: retired Housing: house Household Members: family *Travel in the last 8 weeks: None Family Hx:: Coronary Artery Disease, Diabetes, Heart Attack, Hyperlipidemia, Hypertension Review of Systems - *Neurologic Reports other (Drowsiness), Denies headache(s) Meds Home Medications Medication Instructions Recorded Confirmed Type atorvastatin 80 mg tablet 80 mg PO HS 04/05/17 05/02/20 History lisinopril 40 mg tablet 40 mg PO BID tab 04/05/17 05/02/20 History magnesium oxide 400 mg PO BID cap 04/05/17 05/02/20 History lorazepam 0.5 mg tablet 0.5 mg PO HS tab 04/06/17 05/02/20 History aspirin 325 mg tablet 325 mg PO DAILY tab 09/14/17 05/02/20 History metformin 500 mg tablet 1,000 mg PO BID tab 09/14/17 05/02/20 History folic acid 1 mg tablet 1 mg PO DAILY 02/22/18 05/02/20 History Isosorbide Mononitrate [Imdur 30mg 30 mg PO DAILY 03/26/18 05/02/20 History ER tablet] Amlodipine Besylate [Amlodipine 5 mg PO DAILY 05/20/19 05/02/20 History 5mg tab] carvedilol 25 mg tablet 25 mg PO BID tab 03/13/20 05/02/20 History cholecalciferol (vitamin D3) 25 25 mcg PO DAILY 03/13/20 05/02/20 History mcg (1,000 unit) capsule gabapentin 100 mg capsule 100 mg PO BID cap 03/13/20 05/02/20 History memantine 5 mg tablet 5 mg PO BID tab 03/13/20 05/02/20 History mirtazapine 15 mg tablet 15 mg PO HS tab 03/13/20 05/02/20 History Donepezil HCl [Aricept 5mg 5 mg PO DAILY 05/02/20 05/02/20 History Tablet] hydroCHLOROthiazide [HCTZ 25mg 25 mg PO QDAY 05/02/20 05/02/20 History tab] Allergies Allergy/AdvReac Type Severity Reaction Status Date / Time Iodinated Contrast Media Allergy Mild Unknown Verified 03/13/20 10:21 allergy reaction naproxen Allergy Mild Unknown Verified 03/13/20 10:21 allergy reaction Exam Vital signs and Labs for Last 24 Hours: Temp Pulse Resp BP Pulse Ox 97.6 F 61 18 131/82 94 L 05/03/20 04:00 05/03/20 05:58 05/03/20 04:00 05/03/20 04:00 05/03/20 05:58 Laboratory Results - last 24 hr 05/02/20 11:08: WBC 9.1, RBC 4.94, Hgb 14.8, Hct 44.6, MCV 90.2, MCH 29.9, MCHC 33.1, RDW 14.0, Plt Count 255, MPV 8.1, Neut % (Auto) 59.0, Lymph % (Auto) 26.0, [place] % (Auto) 8.1, Eos % (Auto) 6.2, Baso % (Auto) 0.7, Neut # (Auto) 5.4, Lymph # (Auto) 2.4, [place] # (Auto) 0.7, Eos # (Auto) 0.6 H, Baso # (Auto) 0.1 05/02/20 11:08: Sodium 142, Potassium 4.1, Chloride 98, Carbon Dioxide 33 H, Anion Gap 15.1 H, BUN 18 H, Creatinine 0.90, Estimated Creat Clear 55, Estimated GFR 62, Est GFR ( Amer) 75, Glucose 170 H, Calcium 9.5, Total Bilirubin 0.4, AST 29, ALT 30, Alkaline Phosphatase 139 H, Total Protein 6.7, Albumin 3.8, Globulin 2.9, Albumin/Globulin Ratio 1.3 05/02/20 11:08: Lactate 4.2 H 05/02/20 11:08: Troponin I < 0.01, NT-Pro-B Natriuret Pep 298 H 05/02/20 12:29: Specimen Source Right radial, O2 % 2lpm nc, ABG pH 7.36, ABG pCO2 42.8, ABG pO2 88.2, ABG HCO3 23.5, ABG Total CO2 24.8, ABG O2 Saturation 96, ABG Base Excess -2.0, Naif Test Acceptable 05/02/20 15:55: Lactate 6.2 H 05/02/20 16:52: POC Glucose 364 H* 05/02/20 18:05:
--- NOTE | 2020-05-03 09:50 | HMH.HPDC ---
General - General Admission date:: 05/02/20 Discharge date: 05/03/20 *Admission Date: 05/02/20 *Chief complaint: SOA, cough, fatigue *History of present illness: 69-year-old female who presented to the ER yesterday due to worsening cough, congestion, shortness of breath over the past 3 days. States that she was having worsening shortness of breath and productive cough and had a fever over Monday night into Monday. Was seen earlier in the week by her primary care but did not have such significant symptoms at that time. No formal diagnosis of COPD but clinically with her smoking history of over 50 years, she has suspected COPD. Also reports at home over the past few days her saturations have been in the low 80s at home and difficulty getting them up above 90. On work-up in the ER, found to be hypoxic with room air saturation of 88%. CT with bronchitis and pneumonitis., Negative for Covid. Admitted for acute hypoxemic respiratory failure and suspected pneumonia. Has done well since admission. When seen this morning, states she is feeling much better. Stable on 2 L nasal cannula oxygen. Afebrile overnight and hemodynamically stable. [facility] History I have reviewed the patient's past medical history: Yes Medical History: Reports:: Congestive Heart Failure, Coronary Artery Disease, Cerebrovascular Accident, Diabetes Mellitus Type 1, Hyperlipidemia, Hypertension, Myocardial Infarction Denies:: Cancer, Diabetes Mellitus Type 2, MRSA *Have you ever received a pneumonia vaccine?: Yes *Have you received a flu vaccine this season?: Yes Other Medical History: Reports: Arthritis Laterality Cases: Bilateral: Other Other Surgeries: Yes: CABG, Cardiac Surgery, Hysterectomy-Total, Hysterectomy-Partial, Other Amputation: No Fractures: No - *Social History Smoking Status: Current every day smoker Tobacco Type: cigarettes # Packs/Day (cigarettes): 1 #Yrs smoked (if former smoker): 50 Alcohol Intake: never Alcohol Intake Frequency:: other Substance Use Type: denies use *Occupational Status:: retired Housing: house Household Members: family *Travel in the last 8 weeks: None Family Hx:: Coronary Artery Disease, Diabetes, Heart Attack, Hyperlipidemia, Hypertension Review of Systems - Review of Systems Review of systems:: pertinent systems reviewed and negative unless documented below (14 point review of systems performed, pertinent positives and negatives as per HPI) - *Neurologic Reports other (Drowsiness), Denies headache(s) Exam Vital signs and Labs for Last 24 Hours: Temp Pulse Resp BP Pulse Ox 97.8 F 107 H 16 160/77 H 92 L 05/03/20 08:00 05/03/20 08:00 05/03/20 08:00 05/03/20 08:00 05/03/20 08:00 Laboratory Results - last 24 hr 05/02/20 11:08: WBC 9.1, RBC 4.94, Hgb 14.8, Hct 44.6, MCV 90.2, MCH 29.9, MCHC 33.1, RDW 14.0, Plt Count 255, MPV 8.1, Neut % (Auto) 59.0, Lymph % (Auto) 26.0, [place] % (Auto) 8.1, Eos % (Auto) 6.2, Baso % (Auto) 0.7, Neut # (Auto) 5.4, Lymph # (Auto) 2.4, [place] # (Auto) 0.7, Eos # (Auto) 0.6 H, Baso # (Auto) 0.1 05/02/20 11:08: Sodium 142, Potassium 4.1, Chloride 98, Carbon Dioxide 33 H, Anion Gap 15.1 H, BUN 18 H, Creatinine 0.90, Estimated Creat Clear 55, Estimated GFR 62, Est GFR ( Amer) 75, Glucose 170 H, Calcium 9.5, Total Bilirubin 0.4, AST 29, ALT 30, Alkaline Phosphatase 139 H, Total Protein 6.7, Albumin 3.8, Globulin 2.9, Albumin/Globulin Ratio 1.3 05/02/20 11:08: Lactate 4.2 H 05/02/20 11:08: Troponin I < 0.01, NT-Pro-B Natriuret Pep 298 H 05/02/20 12:29: Specimen Source Right radial, O2 % 2lpm nc, ABG pH 7.36, ABG pCO2 42.8, ABG pO2 88.2, ABG HCO3 23.5, ABG Total CO2 24.8, ABG O2 Saturation 96, ABG Base Excess -2.0, Naif Test Acceptable 05/02/20 15:55: Lactate 6.2 H 05/02/20 16:52: POC Glucose 364 H* 05/02/20 18:05: Lactate 7.1 H 05/02/20 20:10: POC Glucose 387 H* 05/03/20 05:47: POC Glucose 332 H* I & O for Last 24 hours: Intake & Output 04/30/20 05/01/20 05/02/20 05/03/20
[2020-05-03 10:34] VITALS: PULSE 69; O2SAT 84
[2020-05-03 12:03] LABS: POC Glucose,Bedside 383 (70-110)
--- NOTE | 2020-05-03 13:39 | P.CONPHA_ITS ---
[facility] Pharmacy VTE Monitoring - Patient Demographics Admission date: 05/03/20 Report Date: 05/03/20 Time: 13:39 Allergies/Adverse Reactions: Patient Allergies Iodinated Contrast Media Allergy (Mild, Verified 03/13/20 10:21) Unknown allergy reaction naproxen Allergy (Mild, Verified 03/13/20 10:) Unknown allergy reaction Height: 1.52 m Weight: 64.665 kg Patient Problems: Current Active Problems Respiratory failure with hypoxia (Acute) COPD (chronic obstructive pulmonary disease) (Acute) Acute bronchitis (Acute) CAP (community acquired pneumonia) (Acute) S/P CABG x 3 (Chronic) Hypertensive heart disease (Chronic) Diabetes mellitus (Chronic) - VTE Risk Labs: VTE Related Lab Results Hgb 14.8 g/dL (12.2-16.2) 05/02/20 11:08 Hct 44.6 % (37.0-47.0) 05/02/20 11:08 Plt Count 255 K/mm3 (142-424) 05/02/20 11:08 BUN 18 mg/dl (7-17) H 05/02/20 11:08 Creatinine 0.90 mg/dl (0.52-1.04) 05/02/20 11:08 Estimated Creat Clear 55 mL/min (50-200) 05/02/20 11:08 Was VTE Risk Assessment Performed: No VTE Score: 8 VTE Risk Level: Moderate Risk - Prophylaxis Types of VTE Prophylaxis: TEDS Knee High Location of Applied Device: Bilateral Lower Extremeties (MARVIN HOSE ORDERED)
== END 2020-05-03 16:06 | disposition home or self-care (01) ==
LOC: ER 13:58 → 2ND 15:08
PROVIDERS: Admitting Provider Family Medicine; Emergency Provider Emergency Medicine; PCP Internal Medicine Adolescent Medicine; Visit Provider Internal Medicine Adolescent Medicine
DX: J44.1 Chronic obstructive pulmonary disease with (acute) exacerbation (principal); J96.01 Acute respiratory failure with hypoxia; J18.9 Pneumonia, unspecified organism; E11.9 Type 2 diabetes mellitus without complications; Z95.1 Presence of aortocoronary bypass graft; Z79.84 Long term (current) use of oral hypoglycemic drugs; Z79.82 Long term (current) use of aspirin; Z79.899 Other long term (current) drug therapy; Z88.8 Allergy status to other drugs, medicaments and biological substances; R06.9 Unspecified abnormalities of breathing
CPT/HCPCS: 36415; 71045; 71250; 80053; 82803; 82962; 83605; 83880; 84484; 85025; 87040; 93005; 94640; 94760; 96374; 96375; 99285; G0378; J0456; U0003

== ENCOUNTER → 2020-07-31 12:28 | Outpatient (CLI) | payer MEDICARE, MEDICAID, SELFPAY | PROVIDERS: PCP Internal Medicine Adolescent Medicine; Visit Provider Internal Medicine Adolescent Medicine | DX: J43.1 Panlobular emphysema (principal) ==

== ENCOUNTER → 2020-09-22 12:49 | Outpatient (CLI) | payer MEDICARE, MEDICAID, SELFPAY ==
--- NOTE | 2020-09-22 12:51 | CA_ITS ---
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: Jagruti James RVT Laterality: Bilateral Study Quality: Good Indications: RAIZA Risk Factors Hypertension: TIA/CVA History Hyperlipidemia Smoking Doppler Spectral Velocity Analysis ECA (R) 255.10/6.00 cm/s ECA (L) 302.10/24.90 cm/s dICA (R) 105.90/21.20 cm/s dICA (L) 71.10/15.00 cm/s Norberto (R) 94.40/16.40 cm/s Norberto (L) 129.10/23.10 cm/s pICA (R) 67.40/14.40 cm/s pICA (L) 88.30/13.70 cm/s dCCA (R) 70.30/12.00 cm/s dCCA (L) 93.40/13.50 cm/s pCCA (R) 98.00/12.00 cm/s pCCA (L) 142.50/11.60 cm/s Vert (R) 73.20/14.40 cm/s Vert (L) 204.60/28.35 cm/s ICA/CCA 1.51 ICA/CCA 1.38 Findings Study suggests 20-49% stenosis of the right internal cartoid artery. Study suggests 20-49% stenosis of the left internal cartoid artery. Antegrade flow seen bilateral vertebral arteries. Elevated velocity seen in the left verterbral artery, ? stenosis. Conclusion Study suggests 20-49% stenosis of the right internal cartoid artery. Study suggests 20-49% stenosis of the left internal cartoid artery. Antegrade flow seen bilateral vertebral arteries. Elevated velocity seen in the left verterbral artery, ? stenosis. Electronically signed by : Naif Almeida MD 09/22/2020 16:57:23
== END ==
PROVIDERS: PCP Internal Medicine Adolescent Medicine; Visit Provider Internal Medicine Cardiovascular Disease
DX: Z86.73 Personal history of transient ischemic attack (TIA), and cerebral infarction without residual deficits; I65.23 Occlusion and stenosis of bilateral carotid arteries
CPT/HCPCS: 93880

== ENCOUNTER → 2020-10-06 19:15 | Outpatient (CLI) | payer MEDICARE, MEDICAID, SELFPAY ==
[2020-10-06 19:48] LABS: Basophils % 0.6 % (0.1-2.0); Eosinophils # 0.1 K/mm3 (0.0-0.4); Hematocrit 38.8 % (37.0-47.0); Hemoglobin 12.3 g/dL (12.2-16.2); Lymphocytes # 1.9 K/mm3 (0.7-4.5); Mean Corpuscular HGB Conc 31.8 g/dL (31.8-35.4); Mean Corpuscular Hemoglobin 29.2 pg (27.0-31.2); Mean Corpuscular Volume 91.8 fl (81-99); Mean Platelet Volume 9.5 fl (7.4-10.4); Monocytes # 0.5 K/mm3 (0.1-1.0); Monocytes % 6.7 % (1.7-9.3); Neutrophils # 4.4 K/mm3 (1.8-7.8); Neutrophils % 62.7 % (37.0-80.0); Platelet Count 252 K/mm3 (142-424); Red Blood Count 4.22 M/mm3 (4.20-5.40); Red Cell Distribution Width 12.9 % (11.5-17.5); White Blood Count 6.9 K/mm3 (4.8-10.8)
[2020-10-06 19:57] LABS: Alanine Aminotransferase 25 U/L (12-78); Albumin Level 3.5 g/dl (3.5-5.0); Albumin/Globulin Ratio 1.5 (1.1-1.8); Alkaline Phosphatase 110 U/L (38-126); Aspartate Amino Transferase 28 U/L (14-36); Bilirubin,Total 0.4 mg/dl (0.2-1.3); Blood Urea Nitrogen 11 mg/dl (7-17); Calcium 8.8 mg/dl (8.4-10.2); Carbon Dioxide 32 mmol/L (22.0-30.0); Chloride 97 mmol/L (98-107); Chol/HDL Ratio 3.8 (1-3.5); Cholesterol 115 mg/dl (140-200); Estimated Glomerular Filt Rate 99 ml/min (>60); GFR (African American) 120 ML/MIN (>60); Globulin 2.3 g/dL (1.3-3.2); Glucose 189 mg/dl (74-100); HDL Cholesterol 30 mg/dl (40-60); Sodium 139 mmol/L (136-145); Total Protein,Serum 5.8 g/dl (6.3-8.2); Triglycerides 140 mg/dl (30-150); VLDL Cholesterol 28 mg/dL (0-40)
[2020-10-06 20:11] LABS: Hemoglobin A1C 7.6 % (4.0-6.0)
[2020-10-06 20:28] LABS: Thyroid Stimulating Hormone 1.92 uIU/mL (0.465-4.68)
== END ==
PROVIDERS: Visit Provider Internal Medicine Adolescent Medicine
DX: I67.9 Cerebrovascular disease, unspecified (principal); E78.5 Hyperlipidemia, unspecified; E11.9 Type 2 diabetes mellitus without complications; Z79.84 Long term (current) use of oral hypoglycemic drugs
CPT/HCPCS: 80053; 80061; 83036; 84443; 85025

== ENCOUNTER → 2021-01-06 07:50 | Outpatient (CLI) | payer MEDICARE, MEDICAID, SELFPAY ==
[2021-01-06 08:29] LABS: Basophils # 0.1 K/mm3 (0-0.2); Basophils % 0.8 % (0.1-2.0); Eosinophils # 0.2 K/mm3 (0.0-0.4); Eosinophils % 1.9 % (0.1-12.0); Hematocrit 43.8 % (37.0-47.0); Hemoglobin 13.5 g/dL (12.2-16.2); Lymphocytes # 2.4 K/mm3 (0.7-4.5); Lymphocytes % 28.8 % (10-50); Mean Corpuscular HGB Conc 30.9 g/dL (31.8-35.4); Mean Corpuscular Hemoglobin 29.9 pg (27.0-31.2); Mean Platelet Volume 10.1 fl (7.4-10.4); Monocytes # 0.5 K/mm3 (0.1-1.0); Monocytes % 5.3 % (1.7-9.3); Neutrophils # 5.3 K/mm3 (1.8-7.8); Neutrophils % 63.1 % (37.0-80.0); Platelet Count 323 K/mm3 (142-424); Red Blood Count 4.51 M/mm3 (4.20-5.40); Red Cell Distribution Width 14.2 % (11.5-17.5); White Blood Count 8.4 K/mm3 (4.8-10.8)
[2021-01-06 10:14] LABS: Alanine Aminotransferase 24 U/L (12-78); Albumin Level 3.4 g/dl (3.5-5.0); Albumin/Globulin Ratio 1.4 (1.1-1.8); Alkaline Phosphatase 112 U/L (38-126); Anion Gap 12.3 mEq/L (5-15); Aspartate Amino Transferase 33 U/L (14-36); Blood Urea Nitrogen 11 mg/dl (7-17); Calcium 9.1 mg/dl (8.4-10.2); Carbon Dioxide 31 mmol/L (22.0-30.0); Chloride 102 mmol/L (98-107); Cholesterol 123 mg/dl (140-200); Estimated Glomerular Filt Rate 122 ml/min (>60); GFR (African American) 148 ML/MIN (>60); Globulin 2.4 g/dL (1.3-3.2); Glucose 134 mg/dl (74-100); HDL Cholesterol 41 mg/dl (40-60); Potassium 4.3 mmoL/L (3.5-5.1); Sodium 141 mmol/L (136-145); Total Protein,Serum 5.8 g/dl (6.3-8.2); Triglycerides 129 mg/dl (30-150); VLDL Cholesterol 26 mg/dL (0-40)
[2021-01-06 10:17] LABS: Bilirubin,Total < 0.1 mg/dl (0.2-1.3)
[2021-01-06 10:31] LABS: Direct LDL Cholesterol 68.14 mg/dL (100-129)
[2021-01-06 11:18] LABS: Hemoglobin A1C 7.1 % (4.0-6.0)
== END ==
LOC: LAB 07:51 → LAB.DROPOF 01-07 10:27
PROVIDERS: Visit Provider Internal Medicine Adolescent Medicine
DX: E11.9 Type 2 diabetes mellitus without complications (principal); K92.1 Melena; Z79.84 Long term (current) use of oral hypoglycemic drugs
CPT/HCPCS: 80053; 80061; 83036; 85025

== ENCOUNTER 2021-02-14 16:09 | Emergency (ER) | payer MEDICARE, MEDICAID, SELFPAY ==
[2021-02-14 16:22] VITALS: BMI 27171.5
--- NOTE | 2021-02-14 16:23 | XR_ITS ---
PROCEDURE INFORMATION: Exam: XR Chest Exam date and time: 02/14/2021 4:23 PM Age: 70 years old Clinical indication: Shortness of breath TECHNIQUE: Imaging protocol: XR of the chest. Views: 1 view. COMPARISON: CT CHEST WO CON 05/02/2020 12:35 PM FINDINGS: Lungs: Coarse interstitial lung markings likely chronic. Emphysema. Probable scarring in the left lung base. Pleural spaces: Unremarkable. No pleural effusion. No pneumothorax. Heart/Mediastinum: Cardiomegaly. Bones/joints: Midline sternotomy. IMPRESSION: No acute findings. Chronic changes.
--- NOTE | 2021-02-14 16:23 | ECG_ITS ---
APPROVED REPORT Exam: Resting ECG HR:81 bpm ECG Measurements Heart Rate 81 AXES [place] 196 P 65 QRSd 82 QRS -2 QT 362 T 98 QTc 420 Conclusion Normal sinus rhythm Low voltage QRS Inferior infarct, possibly acute Cannot rule out Anterior infarct, age undetermined ACUTE OK Consider right ventricular involvement in acute inferior infarct Abnormal ECG Electronically signed by : Roe Gleason MD 02/16/2021 12:19:46
[2021-02-14 16:26] VITALS: BP 160/47; PULSE 85; RESP 22; TEMP 36.9; O2SAT 96; BMI 29.2
[2021-02-14 16:31] VITALS: BP 136/37; PULSE 88; RESP 20; O2SAT 96
[2021-02-14 17:26] LABS: Coronavirus 19, PCR Not Detected (NotDetected); Influenza A, PCR Not Detected (NotDetected); Influenza B, PCR Not Detected (NotDetected)
[2021-02-14 17:30] LABS: Basophils # 0.1 K/mm3 (0-0.2); Basophils % 0.6 % (0.1-2.0); Chloride 96 mmol/L (98-107); Eosinophils # 0.3 K/mm3 (0.0-0.4); Eosinophils % 1.9 % (0.1-12.0); Hematocrit 37.6 % (37.0-47.0); Hemoglobin 12.4 g/dL (12.2-16.2); Lymphocytes % 21.9 % (10-50); Mean Corpuscular HGB Conc 32.9 g/dL (31.8-35.4); Mean Corpuscular Hemoglobin 29.3 pg (27.0-31.2); Mean Corpuscular Volume 89.2 fl (81-99); Mean Platelet Volume 8.2 fl (7.4-10.4); Monocytes # 0.7 K/mm3 (0.1-1.0); Monocytes % 5.2 % (1.7-9.3); Neutrophils # 9.8 K/mm3 (1.8-7.8); Neutrophils % 70.5 % (37.0-80.0); Platelet Count 387 K/mm3 (142-424); Potassium 3.6 mmoL/L (3.5-5.1); Red Blood Count 4.22 M/mm3 (4.20-5.40); Red Cell Distribution Width 13.7 % (11.5-17.5); Sodium 139 mmol/L (136-145); White Blood Count 13.9 K/mm3 (4.8-10.8)
[2021-02-14 17:33] LABS: Blood Urea Nitrogen 19 mg/dl (7-17); Creatinine Clearance Estimated 56 mL/min (50-200); Estimated Glomerular Filt Rate 122 ml/min (>60); GFR (African American) 148 ML/MIN (>60); Lactic Acid 1.4 mmol/L (0.7-2.1)
[2021-02-14 17:34] LABS: Anion Gap 10.6 mEq/L (5-15); Calcium 8.9 mg/dl (8.4-10.2); Carbon Dioxide 36 mmol/L (22.0-30.0); Glucose 121 mg/dl (74-100)
[2021-02-14 17:43] LABS: NT Pro Brain Natriuretic Pep. 408 pg/mL (0-125)
[2021-02-14 17:48] LABS: Troponin I < 0.01 ng/ml (0.00-0.034)
--- NOTE | 2021-02-14 17:59 | HMH.EDGENADL ---
ED Disposition Clinical Impression: COPD exacerbation Acute bronchitis Qualifiers: Bronchitis organism: unspecified organism Qualified Code(s): J20.9 - Acute bronchitis, unspecified Disposition: Home, Self-Care Condition on Discharge: Good Instructions: DI for Chronic Obstructive Pulmonary Disease, DI for Acute Bronchitis Additional Instructions: Prednisone and Zithromax as prescribed. Use your nebulizer 4 times a day. Follow-up with your primary care doctor this week, call tomorrow for appointment. Return to the emergency department if worsening shortness of breath. Prescriptions: predniSONE [Prednisone 20mg Tab] 20 mg PO BID #10 tab Transmission Status: Pending to [facility] Azithromycin [Zithromax 250mg tab] 250 mg PO DAILY #4 tab Transmission Status: Pending to [facility] Referrals: Roe Gleason MD [Primary Care Provider] - - Critical Care Critical Care Time: No Attestation: On 02/14/21, the high probability of a clinically significant, sudden or life threatening deterioration of the following system(s) required my full and direct attention, intervention and personal management. The time I documented below is in addition to time spent performing reported procedures but includes the following listed in this critical care notation. Medical Decision Making - Jose Inquiry Pt receiving controlled substance: No Vital Signs: 02/14/21 16:26 02/14/21 16:31 02/14/21 18:43 Temperature 98.4 F Temperature Source Oral Pulse Rate 88 88 Pulse Rate [Left Radial] 85 Respiratory Rate 22 20 Blood Pressure 136/37 L Blood Pressure [Right Arm] 160/47 H Blood Pressure Mean 70 Blood Pressure Mean [Right Arm] 84 02 Sat by Pulse Oximetry 96 96 Oxygen Delivery Method Nasal Cannula Oxygen Flow Rate (LPM) 3 02/14/21 18:50 Temperature Temperature Source Pulse Rate 86 Pulse Rate [Left Radial] Respiratory Rate Blood Pressure Blood Pressure [Right Arm] Blood Pressure Mean Blood Pressure Mean [Right Arm] 02 Sat by Pulse Oximetry Oxygen Delivery Method Oxygen Flow Rate (LPM) - Lab Data Lab Results 02/14/21 17:14: WBC 13.9 H, RBC 4.22, Hgb 12.4, Hct 37.6, MCV 89.2, MCH 29.3, MCHC 32.9, RDW 13.7, Plt Count 387, MPV 8.2, Neut % (Auto) 70.5, Lymph % (Auto) 21.9, [place] % (Auto) 5.2, Eos % (Auto) 1.9, Baso % (Auto) 0.6, Neut # (Auto) 9.8 H, Lymph # (Auto) 3.0, [place] # (Auto) 0.7, Eos # (Auto) 0.3, Baso # (Auto) 0.1 02/14/21 17:14: Sodium 139, Potassium 3.6, Chloride 96 L, Carbon Dioxide 36 H, Anion Gap 10.6, BUN 19 H, Creatinine 0.50 L, Estimated Creat Clear 56, Estimated GFR 122, Est GFR ( Amer) 148, Glucose 121 H, Calcium 8.9, Troponin I < 0.01, NT-Pro-B Natriuret Pep 408 H 02/14/21 17:14: SARS-CoV-2 (PCR) Not detected, Influenza A Untype (PCR) Not detected, Influenza Type B (PCR) Not detected 02/14/21 17:14: Lactate 1.4 Result diagrams: 02/14/21 17:14 02/14/21 17:14 Orders (Tests/Meds): ED MEDICATIONS Generic Name Dose Route Start Last Admin Trade Name Freq PRN Reason Stop Dose Admin Azithromycin 500 mg/ Sodium 250 mls @ 250 mls/hr 02/14/21 18:15 02/14/21 18:27 Chloride IV 02/28/21 18:14 250 mls/hr Q24H DEXTER Administration Discontinued Medications Generic Name Dose Route Start Last Admin Trade Name Freq PRN Reason Stop Dose Admin Albuterol/Ipratropium 3 ml 02/14/21 18:12 02/14/21 18:41 Ipratropium/Albuterol 3 Ml Neb IH 02/14/21 18:13 3 ml ONCE ONE Administration Methylprednisolone Sodium Succinate 125 mg 02/14/21 18:13 02/14/21 18:27 Methylprednisolone Sod Succ 125mg Vial IV 02/14/21 18:14 125 mg ONCE ONE Administration ORDERS Category Date Time Status Troponin I Q3H Lab 02/14/21 19:30 Ordered Troponin I Q3H Lab 02/14/21 22:30 Ordered Blood Culture Stat Micro 02/14/21 17:10 Received - Radiology Data #1 Image(s): Chest Image Reviewed: Yes I have reviewed radio
[2021-02-14 18:43] VITALS: PULSE 88
[2021-02-14 18:50] VITALS: PULSE 86
[2021-02-14 20:10] VITALS: BP 120/74; PULSE 98; RESP 20; TEMP 37.1
== END 2021-02-14 20:23 | disposition home or self-care (01) ==
PROVIDERS: Emergency Provider Emergency Medicine; PCP Internal Medicine Adolescent Medicine
DX: J44.1 Chronic obstructive pulmonary disease with (acute) exacerbation (principal); J44.0 Chronic obstructive pulmonary disease with (acute) lower respiratory infection; I50.9 Heart failure, unspecified; I10 Essential (primary) hypertension; I25.2 Old myocardial infarction; F17.210 Nicotine dependence, cigarettes, uncomplicated; Z20.822 Contact with and (suspected) exposure to COVID-19; E10.9 Type 1 diabetes mellitus without complications; E78.5 Hyperlipidemia, unspecified; Z79.899 Other long term (current) drug therapy
CPT/HCPCS: 96365; 71045; 80048; 83605; 83880; 84484; 85025; 87040; 93005; 96366; 99282; C9803; J0456; U0003; U0005

== ENCOUNTER 2022-06-17 11:15 | Emergency (ER) | payer MEDICARE, MEDICAID, SELFPAY ==
[2022-06-17] VITALS (11 sets, daily range): BP systolic 72–170; BP diastolic 26–110; PULSE 81–170; RESP 17–24; TEMP 36.7; O2SAT 92–99; BMI 25.8
--- NOTE | 2022-06-17 11:20 | ECG_ITS ---
APPROVED REPORT Exam: Resting ECG HR:176 bpm ECG Measurements Heart Rate 176 AXES QRSd 89 QRS -16 QT 256 T 125 QTc 350 Conclusion SUPRAVENTRICULAR TACHYCARDIA LOW QRS VOLTAGE IN PRECORDIAL LEADS [QRS DEFLECTION < 1.0 mV IN CHEST LEADS] POSSIBLE ANTERIOR MYOCARDIAL INFARCTION , PROBABLY OLD [30 ms Q WAVE IN V3/V4, OR R < 0.2 mV IN V4] MODERATE T-WAVE ABNORMALITY, CONSIDER LATERAL ISCHEMIA [-0.1+ mV T-WAVE IN I/aVL/V5/V6] CRITICAL TEST RESULT UNCONFIRMED REPORT Electronically signed by : Roe Gleason MD 06/17/2022 16:30:00
[2022-06-17 11:28] LABS: Coronavirus 19, PCR Not Detected (NotDetected); Influenza A, PCR Not Detected (NotDetected); Influenza B, PCR Not Detected (NotDetected)
--- NOTE | 2022-06-17 11:35 | HMH.EDGENADL ---
Discharge Plan Disposition Patient Disposition: Home, Self-Care Prescriptions Prescriptions: New metoprolol succinate 100 mg capsule,marisainkle,ER 24hr 100 mg PO DAILY 30 Days Qty: 30 3RF metoprolol succinate 100 mg tablet extended release 24 hr 100 mg PO DAILY 30 Days Qty: 30 3RF No Action atorvastatin 80 mg tablet 80 mg PO HS magnesium oxide 400 mg capsule 400 mg PO BID lorazepam 0.5 mg tablet 0.5 mg PO HS metformin 500 mg tablet 1,000 mg PO BID carvedilol [Coreg] 25 mg tablet 25 mg PO BID lisinopril 40 mg tablet 20 mg PO BID aspirin 325 mg tablet 325 mg PO DAILY multivitamin [Daily Multi-Vitamin] Tablet 1 tab PO DAILY furosemide 20 mg tablet 20 mg PO DAILY Label Comments: TAKE 1 TABLET BY MOUTH DAILY. escitalopram oxalate 10 mg tablet 10 mg PO DAILY Label Comments: TAKE 1 TABLET BY MOUTH ONCE DAILY. gabapentin 100 mg capsule 100 mg PO BID cholecalciferol (vitamin D3) 25 mcg (1,000 unit) capsule 25 mcg PO DAILY memantine 10 mg tablet 10 mg PO BID Label Comments: TAKE 1 TABLET BY MOUTH TWICE DAILY. omeprazole 40 mg capsule,delayed release(DR/EC) 40 mg PO DAILY donepezil 5 mg tablet 5 mg PO DAILY isosorbide mononitrate 30 MG tablet 30 mg PO DAILY ipratropium-albuterol 3 ML solution for nebulization 3 ml inhalation QIDP PRN (Reason: Shortness Of Breath) 30 Days Qty: 120 0RF Rx Instructions: ICD 10 -- J44.9 hydrochlorothiazide 25 mg tablet 12.5 mg PO QDAY amlodipine 5 MG tablet 5 mg PO DAILY Referrals Follow up/Referrals: Roe Gleason MD [Primary Care Provider] - See instructions Activity Restrictions/Add. Instructions Additional Instructions/Restrictions: Please stop your carvedilol and start the new medication which is 100 mg metoprolol succinate extended release once a day per Dr. Kee's request please follow-up with him in clinic and he will refer you to an official greeter. Return to the emergency department with any other concerns Clinical Impressions Clinical Impression: Supraventricular tachycardia Discharge ED Provider: Falguni Torres General Adult HPI General Chief complaint: Arrhythmia/Palpitations Stated complaint: heart rate fast Time Seen by Provider: 06/17/22 11:36 History of Present Illness HPI narrative: 71-year-old female who is presenting today with Dr. Kee for routine follow-up visit was found to be in an accelerated atrial rhythm sent to the emergency department. She states that she had no preceding symptoms and felt well no chest pain no shortness of breath no fevers or other septic or infectious symptoms. No history of any atrial fibrillation or atrial flutter supraventricular tachycardia. She is unsure of when her arrhythmia began from the time. Standpoint. She is not on any anticoagulation. Related Data Home Medications Medication Instructions Recorded Confirmed atorvastatin 80 mg tablet 80 mg PO HS Cholesterol 04/05/17 06/17/22 magnesium oxide 400 mg PO BID Supplement 04/05/17 06/17/22 lorazepam 0.5 mg tablet 0.5 mg PO HS mood 04/06/17 06/17/22 aspirin 325 mg tablet 325 mg PO DAILY heart 09/14/17 06/17/22 metformin 500 mg tablet 1,000 mg PO BID Diabetes 09/14/17 06/17/22 isosorbide mononitrate 30 mg 30 mg PO DAILY heart 03/26/18 06/17/22 tablet,extended release 24 hr amlodipine 5 mg tablet 5 mg PO DAILY Hypertension 05/20/19 06/17/22 carvedilol 25 mg tablet (Coreg) 25 mg PO BID heart 03/13/20 06/17/22 cholecalciferol (vitamin D3) 25 25 mcg PO DAILY Supplement 03/13/20 06/17/22 mcg (1,000 unit) capsule gabapentin 100 mg capsule 100 mg PO BID Pain 03/13/20 06/17/22 hydrochlorothiazide 25 mg tablet 12.5 mg PO QDAY Edema 09/18/20 06/17/22 lisinopril 40 mg tablet 20 mg PO BID High blood pressure 09/18/20 06/17/22 memantine 10 mg tablet 10 mg PO BID 09/18/20 06/17/22 omeprazole 40 mg capsule,de
--- NOTE | 2022-06-17 11:36 | PC.NURSE ---
Dr. Torres at ; daughter at BS
--- NOTE | 2022-06-17 11:50 | XR_ITS ---
FINAL REPORT CLINICAL HISTORY: dyspnea COMPARISON: 02/14/2021 FINDINGS: SINGLE-VIEW CHEST The heart size is normal. The patient is status post median sternotomy. The lungs are underinflated with mild chronic changes at the bases. There is no pneumothorax. IMPRESSION: No acute cardiopulmonary process. Reviewed, Interpreted and Dictated by Clint Gaspar MD Transcribed by Phoebe Calzada Authenticated and [facility]
--- NOTE | 2022-06-17 11:59 | ECG_ITS ---
APPROVED REPORT Exam: Resting ECG HR:166 bpm ECG Measurements Heart Rate 166 AXES QRSd 90 QRS -21 QT 260 T 136 QTc 351 Conclusion ATRIAL FLUTTER/TACHYCARDIA WITH RAPID VENTRICULAR RESPONSE BORDERLINE LEFT AXIS DEVIATION [QRS AXIS < -20] LOW QRS VOLTAGE IN PRECORDIAL LEADS [QRS DEFLECTION < 1.0 mV IN CHEST LEADS] ST DEVIATION AND MODERATE T-WAVE ABNORMALITY, CONSIDER LATERAL ISCHEMIA [-0.1+ mV T-WAVE IN I/aVL/V5/V6] CRITICAL TEST RESULT UNCONFIRMED REPORT Electronically signed by : Roe Gleason MD 06/17/2022 16:29:17
--- NOTE | 2022-06-17 12:00 | PC.NURSE ---
pushed first dose of lopressor for heart rate, after 5 minute pt bp was 89/42, pt denies any dizziness, chest pain or heart rate. Pt states she feels the same as before the medicine was pushed. aware, at bs
[2022-06-17 12:03] LABS: Alanine Aminotransferase 28 U/L (12-78); Albumin Level 3.7 g/dl (3.5-5.0); Albumin/Globulin Ratio 1.7 (1.1-1.8); Alkaline Phosphatase 102 U/L (38-126); Anion Gap 12.6 mEq/L (5-15); Aspartate Amino Transferase 33 U/L (14-36); Bilirubin,Total 0.4 mg/dl (0.2-1.3); Blood Urea Nitrogen 24 mg/dl (7-17); Carbon Dioxide 31 mmol/L (22.0-30.0); Chloride 97 mmol/L (98-107); Estimated Glomerular Filt Rate 55 ml/min (>60); GFR (African American) 66 ML/MIN (>60); Globulin 2.2 g/dL (1.3-3.2); Glucose 195 mg/dl (74-100); Magnesium 1.7 mg/dl (1.6-2.3); Potassium 4.6 mmoL/L (3.5-5.1); Sodium 136 mmol/L (136-145); Total Protein,Serum 5.9 g/dl (6.3-8.2)
[2022-06-17 12:08] LABS: D-Dimer 1.03 ug/mL (0.0-0.5)
--- NOTE | 2022-06-17 12:15 | PC.NURSE ---
Pt denies any new symptoms. bp manual taken of 80/46, MD aware, second dose held at this time, 1220 manual bp sbp 80/50, aware
[2022-06-17 12:26] LABS: Troponin I < 0.01 ng/ml (0.00-0.034)
[2022-06-17 12:56] LABS: Basophils # 0.1 K/mm3 (0-0.2); Basophils % 0.7 % (0.1-2.0); Eosinophils # 0.2 K/mm3 (0.0-0.4); Eosinophils % 1.4 % (0.1-12.0); Hematocrit 39.2 % (37.0-47.0); Hemoglobin 12.6 g/dL (12.2-16.2); Lymphocytes # 3.1 K/mm3 (0.7-4.5); Lymphocytes % 20.8 % (10-50); Mean Corpuscular HGB Conc 32.1 g/dL (31.8-35.4); Mean Corpuscular Volume 90.5 fl (81-99); Mean Platelet Volume 9.1 fl (7.4-10.4); Monocytes # 0.7 K/mm3 (0.1-1.0); Monocytes % 4.5 % (1.7-9.3); Neutrophils # 10.7 K/mm3 (1.8-7.8); Neutrophils % 72.7 % (37.0-80.0); Platelet Count 419 K/mm3 (142-424); Red Blood Count 4.34 M/mm3 (4.20-5.40); Red Cell Distribution Width 14.9 % (11.5-17.5); White Blood Count 14.7 K/mm3 (4.8-10.8)
--- NOTE | 2022-06-17 13:26 | PC.NURSE ---
Portable Machine Cutter at
--- NOTE | 2022-06-17 13:33 | EXP.CARD.CON ---
History of Present Illness History of Present Illness Consult date: 06/17/22 Requesting physician: Falguni Torres Chief complaint: rapid heart rate History of present illness: This is a 71-year-old female who presented to cardiology clinic today for a routine 6-month follow-up. The patient denied any chest pain or pressure. She denied any shortness of breath or edema. She denied any racing of the heart. She denies any fever, chills, nausea, vomiting, diarrhea, PND or orthopnea. The patient was found to be in an SVT versus atrial flutter. The patient was sent to the emergency department. The patient remains in SVT at this time. She is asymptomatic. [facility] Disclaimer: The information contained in this section may have been updated after the patient was seen, as this information can be updated by other users. Medical History (Updated 06/17/22 @ 13:39 by Va Bateman APRN) CAD (coronary artery disease) CAP (community acquired pneumonia) Carotid artery stenosis Cerebral atrophy COPD (chronic obstructive pulmonary disease) COPD exacerbation Coronary arteriosclerosis Diabetes mellitus History of CVA (cerebrovascular accident) Hyperlipidemia Hypertensive heart disease Lumbar stenosis Respiratory failure with hypoxia Sepsis SVT (supraventricular tachycardia) Thoracic compression fracture Tobacco dependence syndrome UTI (urinary tract infection) Vomiting Weight loss Surgical History History of coronary artery bypass graft S/P CABG x 3 Social History Smoking Status: Former smoker pack-years: 50 alcohol intake: never counseling provided: none substance use type: denies use current occupational status: retired Travel in the last 8 weeks: Inside the [place] household members: family housing: house caffeine: Yes Review of Systems Review of Systems Review of systems:: pertinent systems reviewed and negative unless documented below Constitutional Constitutional: Reports system reviewed and no additional complaints, except as documented Eyes Eyes: Reports system reviewed and no additional complaints, except as documented ENT Ears, Nose, Mouth, and Throat: Reports system reviewed and no additional complaints, except as documented *Cardiovascular Cardiovascular: Reports system reviewed and no additional complaints, except as documented *Respiratory Respiratory: Reports system reviewed and no additional complaints, except as documented *Gastrointestinal Gastrointestinal: Reports system reviewed and no additional complaints, except as documented *Genitourinary Genitourinary: Reports system reviewed and no additional complaints, except as documented *Musculoskeletal Musculoskeletal: Reports system reviewed and no additional complaints, except as documented Integumentary/Breasts Skin/Breast: Reports system reviewed and no additional complaints, except as documented *Neurologic Neurologic: Reports system reviewed and no additional complaints, except as documented Psychiatric Psychiatric: Reports system reviewed and no additional complaints, except as documented Endocrine Endocrine: Reports system reviewed and no additional complaints, except as documented Hematologic/Lymphatic Hematologic/Lymphatic: Reports system reviewed and no additional complaints, except as documented Allergic/Immunologic Allergic/Immunologic: Reports system reviewed and no additional complaints, except as documented Exam Data for Last 24 hours Vital signs and Labs for Last 24 Hours: Pulse Resp BP Pulse Ox 153 H 17 84/44 L 98 06/17/22 12:18 06/17/22 12:18 06/17/22 12:41 06/17/22 12:41 Laboratory Results - last 24 hr 06/17/22 11:25: SARS-CoV-2 (PCR) Not detected, Influenza A Untype (PCR) Not detected, Influenza Type B (PCR) Not detected 06/17/22 11:30: WBC 14.7 H, RBC 4.34, Hgb 12.6, Hct 39.2, MCV 90.5, MCH 29.0, MCHC 3
== END 2022-06-17 14:19 | disposition home or self-care (01) ==
PROVIDERS: Emergency Provider Student in an Organized Health Care Education/Training Program; PCP Internal Medicine Adolescent Medicine
DX: I47.1 Supraventricular tachycardia (principal); I11.9 Hypertensive heart disease without heart failure
CPT/HCPCS: 71045; 80053; 83735; 84443; 84484; 85025; 85378; 93005; C9803; U0003; U0005

== ENCOUNTER 2022-06-17 21:03 | Emergency (ER) | payer MEDICARE, MEDICAID, SELFPAY ==
[2022-06-17 21:04] VITALS: BP 164/77; PULSE 177; RESP 23; TEMP 36.6; O2SAT 94; BMI 28.5
--- NOTE | 2022-06-17 21:12 | ECG_ITS ---
APPROVED REPORT Exam: Resting ECG HR:179 bpm ECG Measurements Heart Rate 179 AXES QRSd 133 QRS -8 QT 253 T 60 QTc 348 Conclusion MAT INDETERMINATE AXIS INTRAVENTRICULAR CONDUCTION DELAY [130+ ms QRS DURATION] POSSIBLE ANTERIOR MYOCARDIAL INFARCTION , OF INDETERMINATE AGE [30 ms Q WAVE IN V3/V4, OR R < 0.2 mV IN V4] CRITICAL TEST RESULT UNCONFIRMED REPORT Electronically signed by : Roe Gleason MD 06/18/2022 20:28:10
--- NOTE | 2022-06-17 21:17 | HMH.EDGENADL ---
Discharge Plan Disposition Patient Disposition: Home, Self-Care Condition: Good Chief Complaint: Weakness Prescriptions Prescriptions: No Action atorvastatin 80 mg tablet 80 mg PO HS magnesium oxide 400 mg capsule 400 mg PO BID lorazepam 0.5 mg tablet 0.5 mg PO HS metformin 500 mg tablet 1,000 mg PO BID carvedilol [Coreg] 25 mg tablet 25 mg PO BID lisinopril 40 mg tablet 20 mg PO BID aspirin 325 mg tablet 325 mg PO DAILY multivitamin [Daily Multi-Vitamin] Tablet 1 tab PO DAILY furosemide 20 mg tablet 20 mg PO DAILY Label Comments: TAKE 1 TABLET BY MOUTH DAILY. escitalopram oxalate 10 mg tablet 10 mg PO DAILY Label Comments: TAKE 1 TABLET BY MOUTH ONCE DAILY. gabapentin 100 mg capsule 100 mg PO BID cholecalciferol (vitamin D3) 25 mcg (1,000 unit) capsule 25 mcg PO DAILY memantine 10 mg tablet 10 mg PO BID Label Comments: TAKE 1 TABLET BY MOUTH TWICE DAILY. omeprazole 40 mg capsule,delayed release(DR/EC) 40 mg PO DAILY donepezil 5 mg tablet 5 mg PO DAILY isosorbide mononitrate 30 MG tablet 30 mg PO DAILY ipratropium-albuterol 3 ML solution for nebulization 3 ml inhalation QIDP PRN (Reason: Shortness Of Breath) 30 Days Qty: 120 0RF Rx Instructions: ICD 10 -- J44.9 hydrochlorothiazide 25 mg tablet 12.5 mg PO QDAY metoprolol succinate 100 mg capsule,sprinkle,ER 24hr 100 mg PO DAILY 30 Days Qty: 30 3RF metoprolol succinate 100 mg tablet extended release 24 hr 100 mg PO DAILY 30 Days Qty: 30 3RF amlodipine 5 MG tablet 5 mg PO DAILY Referrals Follow up/Referrals: Roe Gleason MD [Primary Care Provider] - See instructions Clinical Impressions Clinical Impression: Supraventricular tachycardia Instructions Patient Instructions: Paroxysmal Supraventricular Tachycardia Print Language Print Language: Irish Discharge ED Provider: Erik Red General Adult HPI General Chief complaint: Weakness Stated complaint: Elav heart rate 176 Time Seen by Provider: 06/17/22 22:55 History of Present Illness HPI narrative: Patient presents to the emergency department with a high heart rate. She states that earlier she was seen in the emergency department had a diagnosis of supraventricular tachycardia. This was treated with adenosine and metoprolol. She went home and then comes back in with presentation of diaphoresis and feeling hot. She denies any significant chest pain, fever, chills, cough or congestion patient was discharged home with metoprolol however has not taken her nighttime dose today. Related Data Home Medications Medication Instructions Recorded Confirmed atorvastatin 80 mg tablet 80 mg PO HS Cholesterol 04/05/17 06/17/22 magnesium oxide 400 mg PO BID Supplement 04/05/17 06/17/22 lorazepam 0.5 mg tablet 0.5 mg PO HS mood 04/06/17 06/17/22 aspirin 325 mg tablet 325 mg PO DAILY heart 09/14/17 06/17/22 metformin 500 mg tablet 1,000 mg PO BID Diabetes 09/14/17 06/17/22 isosorbide mononitrate 30 mg 30 mg PO DAILY heart 03/26/18 06/17/22 tablet,extended release 24 hr amlodipine 5 mg tablet 5 mg PO DAILY Hypertension 05/20/19 06/17/22 carvedilol 25 mg tablet (Coreg) 25 mg PO BID heart 03/13/20 06/17/22 cholecalciferol (vitamin D3) 25 25 mcg PO DAILY Supplement 03/13/20 06/17/22 mcg (1,000 unit) capsule gabapentin 100 mg capsule 100 mg PO BID Pain 03/13/20 06/17/22 hydrochlorothiazide 25 mg tablet 12.5 mg PO QDAY Edema 09/18/20 06/17/22 lisinopril 40 mg tablet 20 mg PO BID High blood pressure 09/18/20 06/17/22 memantine 10 mg tablet 10 mg PO BID 09/18/20 06/17/22 omeprazole 40 mg capsule,delayed 40 mg PO DAILY 09/18/20 06/17/22 release donepezil 5 mg tablet 5 mg PO DAILY 05/21/21 06/17/22 multivitamin (Daily Multi-Vitamin 1 tab PO DAILY 12/03/21 06/17/22 tablet) escitalopram oxalate 10 mg tablet 10 mg PO DAILY 06/17/22 06/17/22
[2022-06-17 21:30] VITALS: BP 120/71; RESP 28; O2SAT 91
--- NOTE | 2022-06-17 21:59 | ECG_ITS ---
APPROVED REPORT Exam: Resting ECG HR:81 bpm ECG Measurements Heart Rate 81 AXES QRSd 94 QRS 17 QT 341 T 103 QTc 379 Conclusion SUPRAVENTRICULAR RHYTHM LOW QRS VOLTAGE IN PRECORDIAL LEADS [QRS DEFLECTION < 1.0 mV IN CHEST LEADS] POSSIBLE ANTERIOR MYOCARDIAL INFARCTION , PROBABLY OLD [30 ms Q WAVE IN V3/V4, OR R < 0.2 mV IN V4] POSSIBLE INFERIOR MYOCARDIAL INFARCTION , PROBABLY OLD [30 ms Q WAVE IN II/aVF] ABNORMAL RHYTHM ECG UNCONFIRMED REPORT Electronically signed by : Roe Gleason MD 06/21/2022 03:11:58
[2022-06-17 22:00] VITALS: BP 168/74; PULSE 82; RESP 21; O2SAT 91
[2022-06-17 22:30] VITALS: BP 137/75; PULSE 73; RESP 14; O2SAT 90
[2022-06-17 22:55] VITALS: BP 168/70; PULSE 78; RESP 18; TEMP 36.6; O2SAT 99
[2022-06-17 23:00] VITALS: BP 153/82; PULSE 74; RESP 23; O2SAT 91
== END 2022-06-17 22:40 | disposition home or self-care (01) ==
PROVIDERS: Emergency Provider Emergency Medicine; PCP Internal Medicine Adolescent Medicine
DX: I47.1 Supraventricular tachycardia (principal); I11.9 Hypertensive heart disease without heart failure
CPT/HCPCS: 71045; 80053; 83735; 84443; 84484; 85025; 85378; 93005; 99291; C9803; U0003; U0005

== ENCOUNTER 2023-01-21 12:07 | Inpatient (IN) | payer MEDICARE, MEDICAID, SELFPAY ==
[2023-01-21] VITALS (18 sets, daily range): BP systolic 118–183; BP diastolic 47–100; PULSE 68–115; RESP 16–31; TEMP 36.6–37; O2SAT 88–100; BMI 28.3; BMI 30.8
--- NOTE | 2023-01-21 12:16 | ECG_ITS ---
APPROVED REPORT Exam: Resting ECG HR:90 bpm ECG Measurements Heart Rate 90 AXES [place] 203 P 70 QRSd 95 QRS 17 QT 329 T 126 QTc 376 Conclusion SINUS RHYTHM Old anteroseptal changes BORDERLINE ECG UNCONFIRMED REPORT Electronically signed by : Roe Gleason MD 01/21/2023 18:57:45
--- NOTE | 2023-01-21 12:21 | XR_ITS ---
PROCEDURE INFORMATION: Exam: XR Chest Exam date and time: 01/21/2023 12:57 PM Age: 72 years old Clinical indication: Shortness of breath; Additional info: SOB, b/l rhonchi/hypoxia TECHNIQUE: Imaging protocol: Radiologic exam of the chest. Views: 1 view. Total images: 1 COMPARISON: CR XR CHEST PORTABLE 06/17/2022 12:08 PM FINDINGS: Lungs: Atelectatic changes noted within both lung bases. No focal pneumonia or pneumothorax. Pleural spaces: No pleural effusions. Heart/Mediastinum: Unremarkable. No cardiomegaly. Vasculature: Moderate atherosclerotic disease. Diaphragm: There is nonspecific elevation of the right hemidiaphragm. Bones/joints: There is evidence of prior median sternotomy. IMPRESSION: 1. Atelectatic changes noted within both lung bases. 2. No focal pneumonia or pneumothorax. 3. No pleural effusions.
--- NOTE | 2023-01-21 12:22 | PC.NURSE ---
Pt provided with warm blanket. No other needs voiced. Call light within reach and daughter at BS.
--- NOTE | 2023-01-21 12:23 | HMH.EDGENADL ---
Discharge Plan Disposition Patient Disposition: Admitted Chief Complaint: Shortness of Breath/Dyspnea Prescriptions Prescriptions: No Action atorvastatin 80 mg tablet 80 mg PO HS magnesium oxide 400 mg capsule 400 mg PO BID lorazepam 0.5 mg tablet 0.5 mg PO HS metformin 500 mg tablet 1,000 mg PO BID carvedilol [Coreg] 25 mg tablet 25 mg PO BID lisinopril 40 mg tablet 20 mg PO BID aspirin 325 mg tablet 325 mg PO DAILY multivitamin [Daily Multi-Vitamin] Tablet 1 tab PO DAILY furosemide 20 mg tablet 20 mg PO DAILY Patient Comments: TAKE 1 TABLET BY MOUTH DAILY. escitalopram oxalate 10 mg tablet 10 mg PO DAILY Patient Comments: TAKE 1 TABLET BY MOUTH ONCE DAILY. gabapentin 100 mg capsule 100 mg PO BID cholecalciferol (vitamin D3) 25 mcg (1,000 unit) capsule 25 mcg PO DAILY memantine 10 mg tablet 10 mg PO BID Patient Comments: TAKE 1 TABLET BY MOUTH TWICE DAILY. omeprazole 40 mg capsule,delayed release(DR/EC) 40 mg PO DAILY donepezil 5 mg tablet 5 mg PO DAILY isosorbide mononitrate 30 MG tablet 30 mg PO DAILY ipratropium-albuterol 3 ML solution for nebulization 3 ml inhalation QIDP PRN (Reason: Shortness Of Breath) 30 Days Qty: 120 0RF Rx Instructions: ICD 10 -- J44.9 hydrochlorothiazide 25 mg tablet 12.5 mg PO QDAY metoprolol succinate 100 mg capsule,sprinkle,ER 24hr 100 mg PO DAILY 30 Days Qty: 30 3RF metoprolol succinate 100 mg tablet extended release 24 hr 100 mg PO DAILY 30 Days Qty: 30 3RF amlodipine 5 MG tablet 5 mg PO DAILY Referrals Follow up/Referrals: Roe Gleason MD [Primary Care Provider] - See instructions Clinical Impressions Clinical Impression: Acute exacerbation of chronic obstructive pulmonary disease, Sepsis due to pneumonia Discharge ED Provider: Mike Irwin General Adult HPI General Chief complaint: Shortness of Breath/Dyspnea Stated complaint: congestion, low O2 Time Seen by Provider: 01/21/23 12:14 Mode of Arrival: Wheelchair Source of Information: Patient and Relative Limitations: No Limitations Description of Symptoms (Recalled from ER Triage Doc. by RN): 72 yo F presents to ED with family. family reports weakness, cough, and low oxygen saturations over the past 24-36 hours. History of Present Illness HPI narrative: Patient is a 72-year-old female with past medical history of hypertension, diabetes, COPD on intermittent 2 L nasal cannula, CABG x3 who presents emergency department for evaluation of shortness of breath. History is obtained by patient and family member at bedside. Over the last 48 to 72 hours patient has had worsening cough, inability to clear secretions, shortness of breath causing her to present here for continued evaluation. No chest or abdominal pain. No other acute complaints at this time. Related Data Home Medications Medication Instructions Recorded Confirmed atorvastatin 80 mg tablet 80 mg PO HS Cholesterol 04/05/17 01/21/23 magnesium oxide 400 mg PO BID Supplement 04/05/17 01/21/23 lorazepam 0.5 mg tablet 0.5 mg PO HS mood 04/06/17 01/21/23 aspirin 325 mg tablet 325 mg PO DAILY heart 09/14/17 01/21/23 metformin 500 mg tablet 1,000 mg PO BID Diabetes 09/14/17 01/21/23 isosorbide mononitrate 30 mg 30 mg PO DAILY heart 03/26/18 01/21/23 tablet,extended release 24 hr amlodipine 5 mg tablet 5 mg PO DAILY Hypertension 05/20/19 01/21/23 carvedilol 25 mg tablet (Coreg) 25 mg PO BID heart 03/13/20 01/21/23 cholecalciferol (vitamin D3) 25 25 mcg PO DAILY Supplement 03/13/20 01/21/23 mcg (1,000 unit) capsule gabapentin 100 mg capsule 100 mg PO BID Pain 03/13/20 01/21/23 hydrochlorothiazide 25 mg tablet 12.5 mg PO QDAY Edema 09/18/20 01/21/23 lisinopril 40 mg tablet 20 mg PO BID High blood pressure 09/18/20 01/21/23 memantine 10 mg tablet 10 mg PO BID 09/18/20 01/21/23 omeprazole 40 mg caps
[2023-01-21 12:27] LABS: POC Glucose,Bedside 188 (70-110)
[2023-01-21 12:28] LABS: Coronavirus 19, PCR Not Detected (NotDetected); Influenza A, PCR Not Detected (NotDetected); Influenza B, PCR Not Detected (NotDetected)
--- NOTE | 2023-01-21 12:41 | PC.NURSE ---
RAD at BS
[2023-01-21 12:49] LABS: VBG Base Excess 2.2 mmol/L (-2.4-2.3); VBG HCO3 27.4 mmol/L (23-30); VBG Oxygen Saturation 82.3 % (50-70); VBG PCO2 47.7 mmol/L (35-51); VBG PH 7.38 mmol/L (7.31-7.41); VBG PO2 48.6 mmol/L (28-40); VBG Total CO2 28.9 mmol/L (23-27)
[2023-01-21 12:56] LABS: Chloride 95 mmol/L (98-107)
--- NOTE | 2023-01-21 12:56 | PC.NURSE ---
2nd blood culture sent to lab and blue band passed
[2023-01-21 12:57] LABS: Basophils % 0.2 % (0.1-2.0); Eosinophils % 0.2 % (0.1-12.0); Hematocrit 39.8 % (37.0-47.0); Hemoglobin 13.3 g/dL (12.2-16.2); Lymphocytes # 1.3 K/mm3 (0.7-4.5); Lymphocytes % 8.2 % (10-50); Mean Corpuscular HGB Conc 33.4 g/dL (31.8-35.4); Mean Corpuscular Hemoglobin 30.8 pg (27.0-31.2); Mean Corpuscular Volume 92.3 fl (81-99); Mean Platelet Volume 8.6 fl (7.4-10.4); Monocytes # 0.8 K/mm3 (0.1-1.0); Monocytes % 4.7 % (1.7-9.3); Neutrophils % 86.8 % (37.0-80.0); Platelet Count 263 K/mm3 (142-424); Potassium 3.8 mmoL/L (3.5-5.1); Red Blood Count 4.31 M/mm3 (4.20-5.40); Red Cell Distribution Width 13.7 % (11.5-17.5); Sodium 135 mmol/L (136-145); White Blood Count 16.2 K/mm3 (4.8-10.8)
[2023-01-21 13:00] LABS: Alanine Aminotransferase 32 U/L (12-78); Albumin Level 3.7 g/dl (3.5-5.0); Albumin/Globulin Ratio 1.3 (1.1-1.8); Alkaline Phosphatase 120 U/L (38-126); Anion Gap 11.8 mEq/L (5-15); Aspartate Amino Transferase 36 U/L (14-36); Bilirubin,Total 0.7 mg/dl (0.2-1.3); Blood Urea Nitrogen 15 mg/dl (7-17); Calcium 8.5 mg/dl (8.4-10.2); Carbon Dioxide 32 mmol/L (22.0-30.0); Creatinine Clearance Estimated 53 mL/min (50-200); Estimated Glomerular Filt Rate 82 ml/min (>60); GFR (African American) 100 ML/MIN (>60); Globulin 2.9 g/dL (1.3-3.2); Glucose 201 mg/dl (74-100); Total Protein,Serum 6.6 g/dl (6.3-8.2)
[2023-01-21 13:12] LABS: Lactic Acid 2.2 mmol/L (0.7-2.1)
[2023-01-21 13:30] LABS: MANUAL DIFFERENTIAL MANUAL DIFFERENTIAL (MANUAL DIFF)
[2023-01-21 14:16] LABS: NT Pro Brain Natriuretic Pep. 2020 pg/mL (0-125)
[2023-01-21 14:24] LABS: Lymphocytes % 11 % (10-50); Monocytes % 5 % (2-9); Neutrophils % 84 % (42-76); Platelet Estimate Normal; RBC Morphology Normal; Total Cells Counted 100
--- NOTE | 2023-01-21 15:07 | PC.NURSE ---
report called to cris on second floor
--- NOTE | 2023-01-21 15:29 | PC.NURSE ---
arrived by stretcher from ED
[2023-01-21 16:45] LABS: Reflex Lactic Add Lactic Reflex
[2023-01-21 17:21] LABS: Lactic Acid Follow Up (RFLX 1) 5.9 mmol/L (0.7-2.1)
--- NOTE | 2023-01-21 18:51 | EXP.HP ---
History of Present Illness *Admission Date: 01/21/23 *Reason for visit:: Cough/congestion *History of present illness: 72-year-old female who lives with her daughters in [facility], who suffers from emphysema, chronic bronchitis and dementia, status post stroke with cerebral vascular dementia as well as coronary disease and diastolic heart failure, who is normally on 2 L nasal cannula at home, who over the past 24 hours had increasing shortness of air, coughing and increasing oxygen requirement. She was brought to the ER today. Had leukocytosis, lactate elevation and infiltrate on chest x-ray. Afebrile, normal vital signs otherwise, admitted to hospital for community-acquired pneumonia and COPD exacerbation. [facility] Disclaimer: The information contained in this section may have been updated after the patient was seen, as this information can be updated by other users. Medical History CAD (coronary artery disease) CAP (community acquired pneumonia) Carotid artery stenosis Cerebral atrophy COPD (chronic obstructive pulmonary disease) COPD exacerbation Coronary arteriosclerosis Diabetes mellitus History of CVA (cerebrovascular accident) Hyperlipidemia Hypertensive heart disease Lumbar stenosis Respiratory failure with hypoxia Sepsis SVT (supraventricular tachycardia) Thoracic compression fracture Tobacco dependence syndrome UTI (urinary tract infection) Vomiting Weight loss Surgical History History of coronary artery bypass graft S/P CABG x 3 Family History (Updated 01/21/23 @ 15:45 by Мария Hughes RN) Diabetes Family history of hypertension Family history of hyperlipidemia Parkinsons Social History (Updated 01/21/23 @ 15:46 by Мария Hughes RN) Smoking Status: Former smoker tobacco type: cigarettes packs per day: 1 alcohol intake: never counseling provided: none substance use type: denies use current occupational status: retired Travel in the last 8 weeks: Inside the [place] household members: family housing: house caffeine: Yes Meds Home Medications and Allergies Home Medications Medication Instructions Recorded Confirmed Type atorvastatin 80 mg tablet 80 mg PO HS Cholesterol 04/05/17 01/21/23 History magnesium oxide 400 mg PO BID Supplement 04/05/17 01/21/23 History lorazepam 0.5 mg tablet 0.5 mg PO HS mood 04/06/17 01/21/23 History aspirin 325 mg tablet 325 mg PO AM heart 09/14/17 01/21/23 History metformin 500 mg tablet 1,000 mg PO BID Diabetes 09/14/17 01/21/23 History isosorbide mononitrate 30 mg 30 mg PO AM heart 03/26/18 01/21/23 History tablet,extended release 24 hr amlodipine 5 mg tablet 5 mg PO AM Hypertension 05/20/19 01/21/23 History cholecalciferol (vitamin D3) 25 25 mcg PO HS Supplement 03/13/20 01/21/23 History mcg (1,000 unit) capsule gabapentin 100 mg capsule 100 mg PO BID Pain 03/13/20 01/21/23 History ipratropium 0.5 mg-albuterol 3 mg 3 ml inhalation QIDP PRN Shortness 05/03/20 01/21/23 Rx (2.5 mg base)/3 mL nebulization Of Breath 30 days #120 neb soln hydrochlorothiazide 25 mg tablet 12.5 mg PO AM Edema 09/18/20 01/21/23 History memantine 10 mg tablet 10 mg PO BID 09/18/20 01/21/23 History omeprazole 40 mg capsule,delayed 40 mg PO AM 09/18/20 01/21/23 History release donepezil 5 mg tablet 5 mg PO AM 05/21/21 01/21/23 History multivitamin (Daily Multi-Vitamin 1 tab PO AM 12/03/21 01/21/23 History tablet) escitalopram oxalate 10 mg tablet 10 mg PO AM 06/17/22 01/21/23 History furosemide 20 mg tablet 20 mg PO AM 06/17/22 01/21/23 History metoprolol succinate 100 mg 100 mg PO DAILY 30 days #30 ea 06/17/22 01/21/23 Rx capsule sprinkle, ext. release 24 hr lisinopril 40 mg tablet 40 mg PO HS 01/21/23 01/21/23 History New Prescriptions to Start Prescriptions: Allergies Allergy/AdvReac Type Severity Reaction Status
[2023-01-21 19:20] LABS: Reflex Lactic (2 hrs) Add Lactic Reflex
[2023-01-21 20:07] LABS: Lactic Acid Follow up (RFLX 2) 4.1 mmol/L (0.7-2.1)
--- NOTE | 2023-01-21 20:14 | PC.NURSE ---
INDUCED SPUTUM WITH 15M SALINE, PT UNABLE TO GET ANYTHING UP. LEFT SPUTUM CUP AT BEDSIDE. INSTRUDED PT TO USE SPUTUM CUM IF SHE HAS ANYTHING TO COUGH UP.
[2023-01-22] VITALS (8 sets, daily range): BP systolic 150–169; BP diastolic 66–75; PULSE 77–108; RESP 17–20; TEMP 36.6–37; O2SAT 90–95; BMI 29.7
--- NOTE | 2023-01-22 04:05 | PC.NURSE ---
Patient VS WNL; A&O x 3; patient had nebulizer treatment with unsuccessful results for sputum; fine crackles noted with auscultation; patient O2 sat 88% while resting with eyes closed and respiratory increased O2 to 2L prior to nebulizer treatment. Patient able to answer questions during assessment appropriately. Patient denies pain and SOA. Recvd call from daughter that with continued rain and increased fog she would be staying at her mothers home with her sister and not returning to the hospital this shift. Gave patient the message and she verb understanding and did not appear upset. Bed at lowest level, call light within reach.
[2023-01-22 07:06] LABS: Basophils % 0.2 % (0.1-2.0); Eosinophils # 0.2 K/mm3 (0.0-0.4); Eosinophils % 1.7 % (0.1-12.0); Hematocrit 33.7 % (37.0-47.0); Lymphocytes # 1.1 K/mm3 (0.7-4.5); Lymphocytes % 9.2 % (10-50); Mean Corpuscular HGB Conc 34.2 g/dL (31.8-35.4); Mean Corpuscular Hemoglobin 31.3 pg (27.0-31.2); Mean Corpuscular Volume 91.4 fl (81-99); Mean Platelet Volume 8.5 fl (7.4-10.4); Monocytes # 0.6 K/mm3 (0.1-1.0); Monocytes % 5.1 % (1.7-9.3); Neutrophils # 9.9 K/mm3 (1.8-7.8); Neutrophils % 83.8 % (37.0-80.0); Platelet Count 229 K/mm3 (142-424); Red Blood Count 3.69 M/mm3 (4.20-5.40); Red Cell Distribution Width 13.9 % (11.5-17.5); White Blood Count 11.8 K/mm3 (4.8-10.8)
[2023-01-22 07:09] LABS: Chloride 105 mmol/L (98-107); Sodium 140 mmol/L (136-145)
[2023-01-22 07:10] LABS: Potassium 3.5 mmoL/L (3.5-5.1)
[2023-01-22 07:12] LABS: Blood Urea Nitrogen 11 mg/dl (7-17); Creatinine Clearance Estimated 55 mL/min (50-200); Estimated Glomerular Filt Rate 98 ml/min (>60); GFR (African American) 119 ML/MIN (>60)
[2023-01-22 07:13] LABS: Anion Gap 5.5 mEq/L (5-15); Calcium 8.1 mg/dl (8.4-10.2); Carbon Dioxide 33 mmol/L (22.0-30.0); Glucose 182 mg/dl (74-100)
[2023-01-22 08:12] LABS: Hemoglobin 11.5 g/dL (12.2-16.2)
--- NOTE | 2023-01-22 08:28 | XR_ITS ---
PROCEDURE INFORMATION: Exam: XR Chest Exam date and time: 01/22/2023 8:50 AM Age: 72 years old Clinical indication: Cough; Additional info: Follow-up atelectasis/cough TECHNIQUE: Imaging protocol: Radiologic exam of the chest. Views: 1 view. COMPARISON: CR XR CHEST PORTABLE 01/21/2023 12:57 PM FINDINGS: Lungs: Increasing bibasilar atelectasis. Pleural spaces: Unremarkable. No pleural effusion. No pneumothorax. Heart/Mediastinum: Post operative changes of CABG. Stable cardiomegaly. Vasculature: The aorta demonstrates moderate atherosclerotic calcification. Bones/joints: Median sternotomy wires are present. IMPRESSION: Increasing bibasilar atelectasis.
--- NOTE | 2023-01-22 08:28 | EXP.ACUTE.PN ---
Subjective *Date: 01/22/23 *Time: 08:28 Interval history: Patient is rested well, remains on 2 L nasal cannula. No complaints this morning. Wishes to go home. Medical Exam Vital signs and Labs for Last 24 Hours: Vital Signs Temp Pulse Pulse Resp BP BP Pulse Ox 01/22/23 07:43 98.5 F 108 H 18 169/75 H 93 L 01/22/23 06:54 01/22/23 05:00 01/22/23 04:00 98.6 F 84 17 162/74 H 90 L 01/22/23 03:00 01/22/23 01:00 01/21/23 23:00 01/21/23 21:00 01/21/23 20:00 91 L 01/22/23 00:00 98.1 F 91 H 17 165/69 H 92 L 01/21/23 20:18 68 01/21/23 20:18 68 01/21/23 20:13 88 L 01/21/23 19:58 98.6 F 94 H 16 167/70 H 90 L 01/21/23 18:24 01/21/23 18:23 01/21/23 17:00 01/21/23 16:00 98.2 F 98 H 23 118/62 91 L 01/21/23 15:29 97.9 F 110 H 17 134/52 L 01/21/23 15:00 110 H 17 134/52 L 92 L 01/21/23 14:45 111 H 19 135/54 L 92 L 01/21/23 14:31 115 H 19 134/47 L 92 L 01/21/23 14:15 102 H 20 158/100 H 92 L 01/21/23 14:02 109 H 30 H 183/76 H 93 L 01/21/23 13:46 107 H 31 H 119/51 L 94 L 01/21/23 13:30 100 H 31 H 153/63 H 100 01/21/23 13:38 30 H 93 L 01/21/23 13:16 84 18 158/94 H 99 01/21/23 13:01 88 25 H 156/89 H 91 L 01/21/23 12:46 89 24 179/71 H 91 L 01/21/23 12:17 98.0 F 90 28 H 180/83 H 95 O2 Del Method O2 Flow Rate 01/22/23 07:43 Nasal Cannula 2 01/22/23 06:54 Nasal Cannula 2 01/22/23 05:00 Nasal Cannula 2 01/22/23 04:00 Room Air 01/22/23 03:00 Nasal Cannula 2 01/22/23 01:00 Nasal Cannula 1 01/21/23 23:00 Nasal Cannula 2 01/21/23 21:00 Nasal Cannula 2 01/21/23 20:00 Room Air 01/22/23 00:00 Room Air 01/21/23 20:18 01/21/23 20:18 01/21/23 20:13 Nasal Cannula 1 01/21/23 19:58 Room Air 01/21/23 18:24 Nasal Cannula 01/21/23 18:23 Nasal Cannula 2 01/21/23 17:00 Room Air 01/21/23 16:00 Nasal Cannula 2 01/21/23 15:29 01/21/23 15:00 Nasal Cannula 2 01/21/23 14:45 Nasal Cannula 2 01/21/23 14:31 Nasal Cannula 2 01/21/23 14:15 Nasal Cannula 2 01/21/23 14:02 01/21/23 13:46 01/21/23 13:30 01/21/23 13:38 Nasal Cannula 2 01/21/23 13:16 Nasal Cannula 2 01/21/23 13:01 Nasal Cannula 2 01/21/23 12:46 Nasal Cannula 2 01/21/23 12:17 Nasal Cannula 4 Intake and Output 01/21/23 01/22/23 01/22/23 19:59 03:59 11:59 Intake Total 240 / 1830 1590 / 1830 Output Total 0 / 0 0 / 0 Balance 240 / 1830 1590 / 1830 Intake: Intake, Oral Amount 240 / 630 390 / 630 Intake, Total IV Amount 1200 / 1200 0.9 % Sodium Chloride 1000ML 1, 900 / 900 000 ml @ 75 mls/hr IV .[id number] [facility] Rx#:[id number] Azithromycin 500 mg In 0.9 % 250 / 250 Sodium Chloride 250 ml @ 250 mls/hr IV Q24H [facility] Rx#:[id number] Ceftriaxone 1 gm 1 gm In 0.9 % 50 / 50 Sodium Chloride 50 ml @ 100 mls /hr IV Q24H [facility] Rx#:[id number] Output: Output, Urine Amount 0 / 0 0 / 0 Other: Number of Voids 0 Number of Unmeasured Voids 1 1 Weight 158 lb 151 lb 8 oz Patient Weight 01/22/23 11:59 Weight 151 lb 8 oz Laboratory Results - last 24 hr 01/21/23 12:19: POC Glucose 188 H 01/21/23 12:22: VBG pH 7.38, VBG pCO2 47.7, VBG pO2 48.6 H, VBG HCO3 27.4, VBG Total CO2 28.9 H, VBG O2 Saturation 82.3 H, VBG Base Excess 2.2 01/21/23 12:23: SARS-CoV-2 (PCR) Not detected, Influenza A Untype (PCR) Not detected, Influenza Type B (PCR) Not detected 01/21/23 12:35: WBC 16.2 H, RBC 4.31, Hgb 13.3, Hct 39.8, MCV 92.3, MCH 30.8, MCHC 33.4, RDW 13.7, Plt Count 263, MPV 8.6, Neut % (Auto) 86.8 H, Lymph % (Auto) 8.2 L, [place] % (Auto) 4.7, Eos % (Auto) 0.2, Baso % (Auto) 0.2, Neut # (Auto) 14.0 H, Lymph # (Auto) 1.3, [place] # (Auto) 0.8, Eos # (Auto) 0.0, Baso # (Auto) 0.0, Total Counted 100, Neutrophils % (Manual) 84 H, Lymphocytes % (Manual) 11,
--- OUTSIDE RECORDS SUMMARY | 2023-01-22 12:04 | XMS_ITS | Patient Health Record ---
Author Name Unknown Organization [facility] Address [address] [facility] [address] [place] [address] Care Team Providers Care Electronic Components Assembler Name Role Phone Roe Gleason Primary Care Provider ALLERGIES Allergen (clinical drug ingredient) Drug/Non Drug Allergy documented on EMR Reaction Allergy Type Onset Date Status naproxen (uncoded) Unknown Allergy A ctive RESULTS Component Value Reference Range Notes M-Complete Blood Count Auto Diff (Not yet reviewed by provider) Interpretation: Performing Lab: Notes/Report: WBC 11.8 4.8-10.8 K/mm3 Delta: 16.2 o n 01/21/23-1234 RBC 3.69 4.20-5.40 M/mm3 HGB 11.5 12.2-16.2 g/dL Delta: 13.3 o n 01/21/23-1234 HCT 33.7 37.0-47.0 % MCV 91.4 81-99 fl MCH 31.3 27.0-31.2 pg MCHC 34.2 31.8-35.4 g/dL RDW 13.9 11.5-17.5 % PLT 229 142-424 K/mm3 MPV 8.5 7.4-10.4 fl NE% 83.8 37.0-80.0 % LY% 9.2 10-50 % MO% 5.1 1.7-9.3 % EO% 1.7 0.1-12.0 % BA% 0.2 0.1-2.0 % NE# 9.9 1.8-7.8 K/mm3 LY# 1.1 0.7-4.5 K/mm3
[2023-01-23] VITALS: BP 156/71; PULSE 81; RESP 17; TEMP 37.1; O2SAT 92
[2023-01-23 04:00] VITALS: BP 163/67; PULSE 89; RESP 17; TEMP 36.8; O2SAT 90; BMI 29.4
[2023-01-23 06:13] LABS: Basophils % 0.2 % (0.1-2.0); Eosinophils # 0.1 K/mm3 (0.0-0.4); Eosinophils % 0.7 % (0.1-12.0); Hematocrit 33.3 % (37.0-47.0); Lymphocytes # 2.1 K/mm3 (0.7-4.5); Lymphocytes % 24.1 % (10-50); Mean Corpuscular Hemoglobin 30.9 pg (27.0-31.2); Mean Corpuscular Volume 93.7 fl (81-99); Mean Platelet Volume 8.4 fl (7.4-10.4); Monocytes # 0.5 K/mm3 (0.1-1.0); Monocytes % 5.9 % (1.7-9.3); Neutrophils # 6.1 K/mm3 (1.8-7.8); Neutrophils % 69.1 % (37.0-80.0); Platelet Count 216 K/mm3 (142-424); Red Blood Count 3.56 M/mm3 (4.20-5.40); Red Cell Distribution Width 13.8 % (11.5-17.5); White Blood Count 8.8 K/mm3 (4.8-10.8)
[2023-01-23 06:20] LABS: Chloride 107 mmol/L (98-107); Potassium 3.1 mmoL/L (3.5-5.1); Sodium 141 mmol/L (136-145)
[2023-01-23 06:23] LABS: Anion Gap 6.1 mEq/L (5-15); Blood Urea Nitrogen 10 mg/dl (7-17); Calcium 7.9 mg/dl (8.4-10.2); Carbon Dioxide 31 mmol/L (22.0-30.0); Creatinine Clearance Estimated 55 mL/min (50-200); Estimated Glomerular Filt Rate 82 ml/min (>60); GFR (African American) 100 ML/MIN (>60); Glucose 107 mg/dl (74-100)
[2023-01-23 08:00] VITALS: BP 158/79; PULSE 92; RESP 16; TEMP 36.7; O2SAT 95; O2SAT 97
--- NOTE | 2023-01-23 08:36 | EXP.ACUTE.PN ---
Subjective *Date: 01/23/23 *Time: 08:36 Interval history: Patient resting comfortably this morning. No complaints, had eaten about 60% of her breakfast, states that she feels better, continues to be weak. PT evaluation still pending. Medical Exam Vital signs and Labs for Last 24 Hours: Vital Signs Temp Pulse Pulse Resp BP Pulse Ox O2 Del Method 01/23/23 08:00 98.0 F 92 H 16 158/79 H 95 Nasal Cannula 01/23/23 08:00 97 Nasal Cannula 01/23/23 06:17 Room Air 01/23/23 04:00 98.2 F 89 17 163/67 H 90 L Room Air 01/23/23 05:00 Room Air 01/23/23 03:00 Room Air 01/23/23 01:00 Room Air 01/23/23 00:00 98.7 F 81 17 156/71 H 92 L Room Air 01/22/23 22:36 Room Air 01/22/23 21:00 Room Air 01/22/23 20:00 20 94 L Room Air 01/22/23 20:00 98.0 F 82 17 150/70 H 94 L Room Air 01/22/23 19:53 95 Nasal Cannula 01/22/23 19:52 85 01/22/23 19:52 84 01/22/23 18:29 Room Air 01/22/23 17:00 Nasal Cannula 01/22/23 15:00 Nasal Cannula 01/22/23 15:54 97.8 F 77 18 152/70 H 95 Room Air 01/22/23 13:00 Nasal Cannula 01/22/23 11:00 Nasal Cannula 01/22/23 11:26 98.6 F 78 18 161/66 H 93 L Nasal Cannula 01/22/23 09:00 Nasal Cannula O2 Flow Rate 01/23/23 08:00 2 01/23/23 08:00 2 01/23/23 06:17 01/23/23 04:00 01/23/23 05:00 01/23/23 03:00 01/23/23 01:00 01/23/23 00:00 01/22/23 22:36 01/22/23 21:00 01/22/23 20:00 01/22/23 20:00 01/22/23 19:53 2 01/22/23 19:52 01/22/23 19:52 01/22/23 18:29 2 01/22/23 17:00 2 01/22/23 15:00 2 01/22/23 15:54 01/22/23 13:00 2 01/22/23 11:00 2 01/22/23 11:26 2 01/22/23 09:00 2 Intake and Output 01/22/23 01/23/23 01/23/23 19:59 03:59 11:59 Intake Total 480 / 1140 300 / 1140 360 / 1140 Output Total 0 / 0 0 / 0 Balance 480 / 1140 300 / 1140 360 / 1140 Intake: Intake, Oral Amount 480 / 840 360 / 840 Intake, Total IV Amount 300 / 300 Azithromycin 500 mg In 0.9 % 250 / 250 Sodium Chloride 250 ml @ 250 mls/hr IV Q24H [facility] Rx#:[id number] Ceftriaxone 1 gm 1 gm In 0.9 % 50 / 50 Sodium Chloride 50 ml @ 100 mls /hr IV Q24H [facility] Rx#:[id number] Output: Output, Urine Amount 0 / 0 0 / 0 Other: Number of Unmeasured Voids 1 1 1 Number of Bowel Movements 1 Weight 149 lb 14.4 oz Patient Weight 01/23/23 11:59 Weight 149 lb 14.4 oz Laboratory Results - last 24 hr 01/23/23 05:35: WBC 8.8 D, RBC 3.56 L, Hgb 11.0 L, Hct 33.3 L, MCV 93.7, MCH 30.9, MCHC 33.0, RDW 13.8, Plt Count 216, MPV 8.4, Neut % (Auto) 69.1, Lymph % (Auto) 24.1, [place] % (Auto) 5.9, Eos % (Auto) 0.7, Baso % (Auto) 0.2, Neut # (Auto) 6.1, Lymph # (Auto) 2.1, [place] # (Auto) 0.5, Eos # (Auto) 0.1, Baso # (Auto) 0.0, Sodium 141, Potassium 3.1 L, Chloride 107, Carbon Dioxide 31 H, Anion Gap 6.1, BUN 10, Creatinine 0.70, Estimated Creat Clear 55, Estimated GFR 82, Est GFR ( Amer) 100, Glucose 107 H D, Calcium 7.9 L I & O for Labs for Last 24 Hours: Intake & Output 01/20/23 01/21/23 01/22/23 01/23/23 11:59 11:59 11:59 11:59 Intake Total 1830 / 1830 1140 / 1140 Output Total 0 / 0 0 / 0 Balance 1829 / 1830 1140 / 1140 Weight 151 lb 8 oz 149 lb 14.4 oz Comment:: Pleasant and alert, dementia continues. Crackles and rhonchi in both lung russell, slightly better than yesterday but good air movement and oxygenation is improving. Heart rate regular with occasional ectopic beat. Overall globally weak but no focal deficits. Appears brighter and more conversational than yesterday abdomen soft. No edema Assessment and Plan *Assessment and plan (1) Acute exacerbation of chronic obstructive pulmonary disease: Status: Acute Category: Medical Code(s): J44.1 - Chronic obstructive pulmonary disease with (acute) exacerbation (2) Sepsis due to pneumonia: Status
--- NOTE | 2023-01-23 09:19 | SW/DCPLANNER ---
Addendum entered by [facility] 01/24/23 11:22: Radha w/ [facility] stated that patient has been approved SNF level of care. Patient will discharge today. Addendum entered by [facility] 01/24/23 08:37: Due to [facility] not having an answer at this time patient/family are agreeable to placement at [facility]: patient information has been faxed at this time. Patient is medically stable for discharge today. Addendum entered by [facility] 01/23/23 15:29: [facility] stated they can accept patient pending MD approval. Leonard w/ Admissions will follow up w/ me as soon as she hears back from MD. [facility] is aware that patient is medically stable for discharge tomorrow pending no setbacks. Addendum entered by [facility] 01/23/23 13:52: [facility] is currently reviewing patient information at this time. Addendum entered by [facility] 01/23/23 12:03: Patient information has been faxed to Admissions at [facility] (fax number: [phone]). Addendum entered by [facility] 01/23/23 11:41: Jeffery w/ [facility] stated that she can accept this patient tomorrow SNF level of care. Once discussing this w/ patient and family they have decided to check w/ [facility] to see if they have beds available. Patient information will be faxed to [facility] this AM. Addendum entered by [facility] 01/23/23 10:53: PT/OT recommended SNF level of care. Patient is agreeable for information to be faxed to [facility]. I will follow up w/ [facility] once information is reviewed. Original Note: I spoke w/ patient and her daughter regarding plans once medically stable for discharge. PT/OT is ordered on patient for this AM. Patient and daughter both stated that if SNF level of care is needed at time of discharge they would prefer to go to [facility]. I will follow up w/ patient and family once PT evaluation is completed this AM. Per MD patient will be ready for discharge tomorrow pending no setbacks.
--- NOTE | 2023-01-23 10:24 | HMH.PTEV ---
Physical Therapy Evaluation Rehab PT IP Evaluation Start: 01/22/23 08:27 Freq: ONCE Status: Active Protocol: Document 01/23/23 10:19 PHORPRANAY (Rec: 01/23/23 10:24 PHORNE [id number]) Subjective/History History History 72 yowf adm to [facility] with COPD exac, Sepsis, PNA. She has PMH of emphysema, chronic bronchitis, dementia, CVA, CAD , HF. She lives with daughter( s) at baseline and requires assista with all mobility and ADLs. She generally uses a w/c for all mobility at baseline. Subjective Subjective Pt with no c/o this am. Presents somewhat rigid with bed mobility and requires assist at all time to mainatain static sitting balance. New diagnosis of cancer in past 12 No months? Rehab PT IP Eval Objective Appearance Patient Behavior Appropriate Patient Orientation Person,Place Difficulty following instructions none Speech Pattern Clear Ambulation Patient Able to Ambulate Yes Ambulation Observation IP General Gait Pattern Observation Wide Based Gait,Shuffling Step Ambulation Distance (feet) 3 Ambulation Assistive Device None Ambulation Ability Moderate x 2 (50% assist) Balance Ability to Arise Unable Sitting Balance Leans or slides in chair Standing Balance Unsteady Dynamic Sitting Balance Ability Poor Dynamic Standing Balance Ability Poor Transfers Bed Transfer Ability Maximum x 2 (75% assist) Chair Transfer Ability Moderate x 2 (50% assist) Sit to Stand Bed Transfer Ability Moderate x 2 (50% assist) Sit to Stand Chair Transfer Ability Moderate x 2 (50% assist) Rehab PT IP prob,goals,plan Problems Date of Evaluation: 01/23/23 PT IP Problems Bed Mobility,Transfers,Self care Rehab Potential Rehab Potential Good Plan PT Intervention Plan Bed Mobility,Transfers,Gait, Self care,Therapeutic Exercise PT Plan Frequency Daily Duration LOS Discharge Goals Bed Transfer Ability Moderate x 2 (50% assist) Sit to Stand Chair Transfer Ability Moderate x 1 (50% assist) Ambulation Assistive Device Rolling Walker Ambulation Distance (feet) 5 Discharge Plan PT Discharge Plan Pt is currently most appropriate for rehab
--- NOTE | 2023-01-23 10:32 | HMH.OTEV ---
OT Inpatient Evaluation Rehab OT IP Evaluation Start: 01/22/23 08:27 Freq: ONCE Status: Active Protocol: Document [facility]/23/23 10:29 [facility] (Rec: 01/23/23 10:32 [facility] [id number]) Rehab OT IP Assessment Subjective History Pt oriented x 3 on arrival. Pt agreeable to engage in therapy evaluation. Pt's daughter present and supportive. Daughter provides most background information. Pt is a 72 yowf adm to [facility] with COPD exac, Sepsis, PNA. She has PMH of emphysema, chronic bronchitis, dementia, CVA, CAD, HF. She lives with daughter(s) at baseline and requires assistance with all mobility and ADLs. She generally uses a w/c for all mobility at baseline. Subjective Well we can try. Objective Patient Orientation Person,Place,Birthday Upper Extremity Gross ROM Mod Limitation 50% Shoulder ROM Limitations Muscle Weakness Elbow ROM Limitations Muscle Weakness Wrist Limitations of Range of Motion Muscle Weakness Bed Mobility bed mobility-scooting,bed mobility - supine/sit Assist Level Maximum x 2 (75% assist) Transfer Training Sit/Stand/Pivot Transfer Assist Level Moderate x 2 (50% assist) Chair Transfer Ability Moderate x 2 (50% assist) Chair Transfer Technique Stand Step Pivot Rehab OT IP prob,goals,plan Problems Date of Evaluation: 01/23/23 OT IP Problems Bed Mobility,Transfers,Balance ,Self care,Safety Rehab Potential Rehab Potential Good Equipment Needs Assistive Devices Rolling / Wheeled Walker, Wheelchair Plan OT intervention Plan Bed Mobility,Transfers,Balance ,Self care,Safety,Therapeutic Exercise OT Plan Frequency BID Duration LOS Discharge Goals Bed Mobility Ability Assistance x1 Sit to Stand Chair Transfer Ability Moderate x 1 (50% assist) Chair Transfer Ability Moderate x 1 (50% assist) Chair Transfer Technique Stand Step Pivot Chair Transfer Assistive Devices Rolling Walker Feeding Ability Assist with Tray Set Up Lower Body Dressing Ability Assistance X1 Upper Body Dressing Ability Standby Assistance Bathing
[2023-01-23 12:00] VITALS: BP 164/70; PULSE 79; RESP 18; TEMP 36.7; O2SAT 96
[2023-01-23 16:00] VITALS: BP 153/73; PULSE 86; RESP 18; TEMP 37; O2SAT 94
[2023-01-23 20:00] VITALS: BP 161/80; PULSE 82; RESP 18; TEMP 36.8; O2SAT 95; O2SAT 97
[2023-01-24] VITALS: BP 136/66; PULSE 77; RESP 18; TEMP 36.2; O2SAT 96
[2023-01-24 04:00] VITALS: BP 161/69; PULSE 80; RESP 18; TEMP 36.8; O2SAT 97; BMI 29.4
--- NOTE | 2023-01-24 05:23 | PC.NURSE ---
Patient rested well throughout shift. Patient remains A/O x3. Patient wore 2L O2 with sats 95-96%. Patient voiced no c/o of pain or SOA. Patient was turned throughout shift. Call light within reach, bed in low position.
[2023-01-24 07:31] VITALS: BP 189/88; PULSE 104; RESP 20; TEMP 37.6; O2SAT 94
[2023-01-24 07:53] VITALS: O2SAT 98
--- NOTE | 2023-01-24 08:33 | EXP.ACUTE.PN ---
Subjective *Date: 01/24/23 *Time: 08:33 Interval history: Slept well overnight, daughter notes she seems comfortable. Patient has no complaints Medical Exam Vital signs and Labs for Last 24 Hours: Vital Signs Temp Pulse Resp BP Pulse Ox O2 Del Method O2 Flow Rate 01/24/23 07:53 98 Nasal Cannula 2 01/24/23 07:32 Nasal Cannula 2 01/24/23 07:31 99.6 F 104 H 20 189/88 H 94 L Nasal Cannula 2 01/24/23 04:00 98.3 F 80 18 161/69 H 97 Room Air 01/24/23 06:53 Nasal Cannula 2 01/24/23 05:00 Nasal Cannula 2 01/24/23 03:00 Nasal Cannula 2 01/24/23 00:00 97.2 F L 77 18 136/66 96 Nasal Cannula 2 01/24/23 01:00 Nasal Cannula 2 01/23/23 23:00 Nasal Cannula 2 01/23/23 20:00 98.2 F 82 18 161/80 H 95 Nasal Cannula 01/23/23 21:00 Nasal Cannula 2 01/23/23 20:00 97 Nasal Cannula 2 01/23/23 18:18 Room Air 01/23/23 16:00 98.6 F 86 18 153/73 H 94 L Nasal Cannula 01/23/23 15:38 Room Air 97 01/23/23 13:50 Room Air 01/23/23 12:56 Room Air 01/23/23 12:00 98.0 F 79 18 164/70 H 96 Nasal Cannula 2 01/23/23 11:00 Room Air Intake and Output 01/23/23 01/24/23 01/24/23 19:59 03:59 11:59 Intake Total 480 / 830 350 / 830 Output Total 0 / 0 Balance 480 / 830 350 / 830 Intake: Intake, Oral Amount 480 / 480 Intake, Total IV Amount 350 / 350 Azithromycin 500 mg In 0.9 % 250 / 250 Sodium Chloride 250 ml @ 250 mls/hr IV Q24H [facility] Rx#:[id number] Ceftriaxone 1 gm 1 gm In 0.9 % 100 / 100 Sodium Chloride 50 ml @ 100 mls /hr IV Q24H [facility] Rx#:[id number] Output: Output, Urine Amount 0 / 0 Other: Number of Unmeasured Voids 1 1 Number of Bowel Movements 1 Weight 149 lb 12.8 oz Patient Weight 01/24/23 11:59 Weight 149 lb 12.8 oz I & O for Labs for Last 24 Hours: Intake & Output 01/21/23 01/22/23 01/23/23 01/24/23 11:59 11:59 11:59 11:59 Intake Total 1830 / 1830 1260 / 1260 830 / 830 Output Total 0 / 0 0 / 0 0 / 0 Balance 1830 / 1830 1260 / 1260 830 / 830 Weight 151 lb 8 oz 149 lb 14.4 oz 149 lb 12.8 oz Comment:: Pleasant and alert, dementia continues. Crackles and rhonchi in both lung russell, slightly better than yesterday but good air movement and oxygenation is improving. Heart rate regular with occasional ectopic beat. Overall globally weak but no focal deficits. Appears brighter and more conversational than yesterday abdomen soft. No edema Assessment and Plan *Assessment and plan (1) Acute exacerbation of chronic obstructive pulmonary disease: Status: Acute Category: Medical Code(s): J44.1 - Chronic obstructive pulmonary disease with (acute) exacerbation (2) Sepsis due to pneumonia: Status: Acute Category: Medical Code(s): J18.9 - Pneumonia, unspecified organism; A41.9 - Sepsis, unspecified organism (3) History of CVA (cerebrovascular accident): Status: Chronic Category: Medical Code(s): Z86.73 - Personal history of transient ischemic attack (TIA), and cerebral infarction without residual deficits (4) Vascular dementia: Status: Acute Category: Medical Code(s): F01.50 - Vascular dementia, unspecified severity, without behavioral disturbance, psychotic disturbance, mood disturbance, and anxiety (5) Diabetes type 2, controlled: Status: Acute Category: Medical Code(s): E11.9 - Type 2 diabetes mellitus without complications (6) Diastolic CHF: Status: Acute Category: Medical Code(s): I50.30 - Unspecified diastolic (congestive) heart failure (7) Hypocalcemia: Status: Acute Category: Medical Code(s): E83.51 - Hypocalcemia Plan COPD exacerbation with evidence of pneumonia, multiple comorbid conditions as noted above. Agree with admission, azithromycin and ceftriaxone, she was given a dose of Solu
[2023-01-24 09:59] LABS: Anion Gap 10.5 mEq/L (5-15); Blood Urea Nitrogen 7 mg/dl (7-17); Calcium 8.5 mg/dl (8.4-10.2); Carbon Dioxide 30 mmol/L (22.0-30.0); Chloride 103 mmol/L (98-107); Creatinine Clearance Estimated 55 mL/min (50-200); Estimated Glomerular Filt Rate 98 ml/min (>60); GFR (African American) 119 ML/MIN (>60); Glucose 119 mg/dl (74-100); Potassium 3.5 mmoL/L (3.5-5.1); Sodium 140 mmol/L (136-145)
[2023-01-24 11:39] VITALS: BP 185/74; PULSE 91; RESP 18; TEMP 37.4; O2SAT 97
--- NOTE | 2023-01-24 13:59 | EXP.DC.SUM ---
General Admission date:: 01/21/23 Discharge date: 01/24/23 HPI HPI HPI: 72-year-old female who lives with her daughters in [facility], who suffers from emphysema, chronic bronchitis and dementia, status post stroke with cerebral vascular dementia as well as coronary disease and diastolic heart failure, who is normally on 2 L nasal cannula at home, who over the past 24 hours had increasing shortness of air, coughing and increasing oxygen requirement. She was brought to the ER today. Had leukocytosis, lactate elevation and infiltrate on chest x-ray. Afebrile, normal vital signs otherwise, admitted to hospital for community-acquired pneumonia and COPD exacerbation. Hospital Course Hospital Course Hospital Course: Patient was admitted, placed on IV antibiotics. Her oxygen requirement returned to normal. She was exceedingly weak and really not back by her illness and PT evaluated her and felt that she would benefit from 2 to 3 weeks of inpatient skilled care at a skilled care facility. Her daughters and she agreed this would be a great thing to do and she will be transferred to the [facility] today. Please note that she will need to finish cefdinir and azithromycin as noted on the reconciliation medication list. She will need PT/OT/speech therapy evaluation and aggressive rehab. She will need to follow a 2000-calorie ADA diet. Follow-up will be per our regular retirement rounds. Please note she maintains a DNR status and will continue to respect this in the retirement. Exam Data for Last 24 hours Vital signs and Labs for Last 24 Hours: Temp Pulse Resp BP Pulse Ox O2 Del Method O2 Flow Rate 99.4 F 91 H 18 185/74 H 97 Room Air 2 01/24/23 11:39 01/24/23 11:39 01/24/23 11:39 01/24/23 11:39 01/24/23 11:39 01/24/23 12:18 01/24/23 11:39 Laboratory Results - last 24 hr 01/24/23 09:02: Sodium 140, Potassium 3.5, Chloride 103, Carbon Dioxide 30, Anion Gap 10.5, BUN 7 D, Creatinine 0.60, Estimated Creat Clear 55, Estimated GFR 98, Est GFR ( Amer) 119, Glucose 119 H, Calcium 8.5 I & O for Last 24 hours: Intake & Output 01/22/23 01/23/23 01/24/23 01/25/23 11:59 11:59 11:59 11:59 Intake Total 1830 / 1830 1260 / 1260 1070 / 1070 240 / 240 Output Total 0 / 0 0 / 0 0 / 0 Balance 1830 / 1830 1260 / 1260 1070 / 1070 240 / 240 Weight 151 lb 8 oz 149 lb 14.4 oz 149 lb 12.8 oz Microbiology Reports for the Last 24 Hours: Microbiology 01/21/23 12:35 Blood Blood Culture - Preliminary 01/21/23 12:35 Blood Blood Culture - Preliminary Narrative: EKG shows SVT versus atrial flutter with a rate in the 160s. Constitutional Constitutional: no acute distress and average body habitus *Routine HEENT Exam Head: Present normocephalic and atraumatic ENT: Present mucous membranes moist *Routine Neck Exam Neck: Present supple, full ROM and normal carotid upstroke; Absent JVD, carotid bruit or lymphadenopathy *Routine Respiratory Exam Respiratory: Present CTA bilaterally, normal respiratory effort, able to speak in complete sentences and symmetric chest movement *Routine Cardiovascular Exam Cardiovascular: Present Normal S1, Normal S2 and tachycardia; Absent murmur or gallop *Routine Abdominal Exam Abdominal: Present soft and normoactive bowel sounds; Absent tenderness, distended or organomegaly *Routine Extremities Exam Extremities: Present full ROM, pulses intact and normal capillary refill; Absent cyanosis, clubbing or edema *Routine Skin Exam Skin: Present intact and warm; Absent erythema *Routine Neurological Exam Neurological: Present alert, oriented X3 and CN II-XII intact; Absent sensory deficit or motor deficit Routine Psychiatric Exam Psychiatric: Present normal affect Results Data Completed and Pending Labs on day of discharge: Labs from last 24 hours 01/24/23 09:02 Sodium 140 Potassium 3.5 Chloride 103 Carbon Dioxide 30 Anion Gap 10.5 BUN 7 D Creatinine 0
[2023-01-24 14:17] VITALS: BMI 29.4
--- NOTE | 2023-01-24 15:00 | PC.NURSE ---
report called to Young THOMPSON.
== END 2023-01-24 15:30 | DRG 871 ==
LOC: ER 14:05 → 2ND 14:37
PROVIDERS: Admitting Provider Internal Medicine Adolescent Medicine; Emergency Provider Emergency Medicine; PCP Internal Medicine Adolescent Medicine; Visit Provider Internal Medicine Adolescent Medicine
DX: A41.9 Sepsis, unspecified organism (principal); J18.9 Pneumonia, unspecified organism; I50.30 Unspecified diastolic (congestive) heart failure; F01.50 Vascular dementia, unspecified severity, without behavioral disturbance, psychotic disturbance, mood disturbance, and anxiety; E11.9 Type 2 diabetes mellitus without complications; E83.51 Hypocalcemia; J43.9 Emphysema, unspecified; F03.90 Unspecified dementia, unspecified severity, without behavioral disturbance, psychotic disturbance, mood disturbance, and anxiety; I25.10 Atherosclerotic heart disease of native coronary artery without angina pectoris; Z99.81 Dependence on supplemental oxygen; I11.0 Hypertensive heart disease with heart failure; I50.9 Heart failure, unspecified; Z95.9 Presence of cardiac and vascular implant and graft, unspecified; Z79.84 Long term (current) use of oral hypoglycemic drugs
CPT/HCPCS: 36415; 71045; 80048; 80053; 82803; 82962; 83605; 83880; 85007; 85025; 87040; 87070; 87205; 87636; 93005; 94640; 94760; 97110; 97163; 97166; 97530; 99285; J0456; J0696

== ENCOUNTER 2023-06-11 18:15 | Emergency (ER) | payer MEDICARE, MEDICAID, SELFPAY ==
[2023-06-11 18:17] VITALS: BP 127/65; PULSE 92; RESP 16; TEMP 36.6; O2SAT 97; BMI 28.3
--- NOTE | 2023-06-11 18:23 | ECG_ITS ---
APPROVED REPORT Exam: Resting ECG HR:94 bpm ECG Measurements Heart Rate 94 AXES PA 158 P 266 QRSd 93 QRS 76 QT 331 T -23 QTc 383 Conclusion SINUS RHYTHM LOW QRS VOLTAGE IN PRECORDIAL LEADS [QRS DEFLECTION < 1.0 mV IN CHEST LEADS] POSSIBLE ANTERIOR MYOCARDIAL INFARCTION , PROBABLY OLD [30 ms Q WAVE IN V3/V4, OR R < 0.2 mV IN V4] MODERATE T-WAVE ABNORMALITY, CONSIDER INFERIOR ISCHEMIA [-0.1+ mV T-WAVE IN II/aVF] ABNORMAL ECG UNCONFIRMED REPORT Electronically signed by : Steven Torres, 06/12/2023 22:53:30
[2023-06-11 18:34] VITALS: BP 109/65; PULSE 92; RESP 15; O2SAT 97
--- NOTE | 2023-06-11 18:50 | ED_ITS ---
Discharge Plan Disposition Patient Disposition: Still a Patient Prescriptions Prescriptions: No Action atorvastatin 80 mg tablet 80 mg PO HS magnesium oxide 400 mg capsule 400 mg PO BID aspirin 325 mg tablet 325 mg PO AM multivitamin [Daily Multi-Vitamin] Tablet 1 tab PO AM furosemide 20 mg tablet 20 mg PO AM Patient Comments: TAKE 1 TABLET BY MOUTH DAILY. escitalopram oxalate 10 mg tablet 10 mg PO AM Patient Comments: TAKE 1 TABLET BY MOUTH ONCE DAILY. cholecalciferol (vitamin D3) 25 mcg (1,000 unit) capsule 25 mcg PO HS memantine 10 mg tablet 10 mg PO BID Patient Comments: TAKE 1 TABLET BY MOUTH TWICE DAILY. omeprazole 40 mg capsule,delayed release(DR/EC) 40 mg PO AM donepezil 5 mg tablet 5 mg PO AM isosorbide mononitrate 30 MG tablet 30 mg PO AM ipratropium-albuterol 3 ML solution for nebulization 3 ml inhalation QIDP PRN (Reason: Shortness Of Breath) 30 Days Qty: 120 0RF Rx Instructions: ICD 10 -- J44.9 lisinopril 40 mg tablet 40 mg PO BID metformin 1,000 mg tablet 1,000 mg PO BID Patient Comments: TAKE 1 TABLET BY MOUTH TWICE DAILY metoprolol succinate 100 mg tablet extended release 24 hr 100 mg PO DAILY Patient Comments: TAKE 1 TABLET BY MOUTH ONCE DAILY lorazepam 0.5 mg tablet 0.5 mg PO HS 30 Days Qty: 30 0RF gabapentin 100 mg capsule 100 mg PO BID 30 Days Qty: 60 0RF azithromycin [azithromycin] 250 mg tablet 250 mg PO DIRECTED Qty: 6 0RF Rx Instructions: Take two (2) tablets on day #1, then one (1) tablet day #2 thru #5 cefdinir 300 mg capsule 300 mg PO BID Qty: 14 0RF amlodipine 5 MG tablet 5 mg PO AM Referrals Follow up/Referrals: Roe Gleason MD [Primary Care Provider] - See instructions Activity Restrictions/Add. Instructions Additional Instructions/Restrictions: Please follow-up with your primary care doctor to make sure that her kidney function is staying stable. She had a mild acute kidney injury today with a creatinine of 1.2 and a baseline of 0.6. I recommend you follow-up within the next few days to have this repeated in addition to having her magnesium and potassium repeated. No evidence of recurrent SVT in our emergency department. Please continue to follow-up with her shearer helper as previously instructed and return with any worsening or recurrent symptoms. Clinical Impressions Clinical Impression: SVT (supraventricular tachycardia), Hypomagnesemia, JUSTINO (acute kidney injury) Discharge ED Provider: Falguni Torres General Adult HPI General Chief complaint: Arrhythmia/Palpitations Stated complaint: Rapid heart Rate 176 Time Seen by Provider: 06/11/23 18:28 Mode of Arrival: Ambulatory Source of Information: Patient Limitations: No Limitations Description of Symptoms (Recalled from ER Triage Doc. by RN): pt brought to ED by daughters for high heart rate. daughters report pt broke out in a sweat and got red in the face this prompted her daughters to check her heart rate and at home it was 175. daughter reports on the way over to ED they checked her heart rate again and it was down to 125. pt reports no chest pain, no shortness of breath History of Present Illness HPI narrative: Is a 72-year-old female brought in today by her daughters for diaphoresis that is since resolved. She also was found to have a heart rate of 175 at home. I saw this patient 1 year ago when she presented twice in 1 day for a supraventricular tachycardia. They state that she had the exact same presentation but today symptoms. They seem to resolve spontaneously prior to arrival. She had followed up with her shearer helper had been on beta-blockers and other rate controlling medications also had seen an forming mill operator I discussed the risk and benefits of procedures and currently opted to just be on medical management. Related Data Home Medications Medication Instructions Recorded Confirmed atorvastatin 80 mg tablet 80 mg PO HS Cholesterol 04/05/17 01/21/23 magnesium oxide 400 mg PO BID Supplement 04/05/17 01/21/23 aspirin 325 mg tablet 325 mg PO AM heart health 09/14/17 01/21/23 isosorbide mononitrate 30 mg 30 mg PO AM angina 03/26/18 01/21/23 tablet,extended release 24 hr amlodipine 5 mg tablet 5 mg PO AM Hypertension 05/20/19 01/21/23 cholecalciferol (vitamin D3) 25 25 mcg PO HS Supplement 03/13/20 01/21/23 mcg (1,000 unit) capsule memantine 10 mg tablet 10 mg PO BID dementia 09/18/20 01/21/23 omeprazole 40 mg capsule,delayed 40 mg PO AM gerd 09/18/20 01/21/23 release donepezil 5 mg tablet 5 mg PO AM dementia 05/21/21 01/21/23 multivitamin (Daily Multi-Vitamin 1 tab PO AM Supplement 12/03/21 01/21/23 tablet) escitalopram oxalate 10 mg tablet 10 mg PO AM Depression 06/17/22 01/21/23 furosemide 20 mg tablet 20 mg PO AM Edema 06/17/22 01/21/23 lisinopril 40 mg tablet 40 mg PO BID Hypertension 01/21/23 01/22/23 metformin 1,000 mg tablet 1,000 mg PO BID Diabetes 01/22/23 01/22/23 metoprolol succinate 100 mg 100 mg PO DAILY Hypertension 01/22/23 01/22/23 tablet,extended release 24 hr Previous Rx's Medication Instructions Recorded ipratropium 0.5 mg-albuterol 3 mg 3 ml inhalation QIDP PRN Shortness 05/03/20 (2.5 mg base)/3 mL nebulization Of Breath 30 days #120 neb soln azithromycin 250 mg tablet 250 mg PO DIRECTED #6 tabs 01/24/23 cefdinir 300 mg capsule 300 mg PO BID #14 caps 01/24/23 gabapentin 100 mg capsule 100 mg PO BID neuropathy 30 days 01/24/23 #60 caps lorazepam 0.5 mg tablet 0.5 mg PO HS Anxiety 30 days #30 01/24/23 tabs Allergies Allergy/AdvReac Type Severity Reaction Status Date / Time Iodinated Contrast Media Allergy Mild Unknown Verified 01/21/23 15:14 allergy reaction naproxen Allergy Mild Unknown Verified 01/21/23 15:14 allergy reaction PFSH PFS Disclaimer: The information contained in this section may have been updated after the patient was seen, as this information can be updated by other users. Medical History CAD (coronary artery disease) CAP (community acquired pneumonia) Carotid artery stenosis Cerebral atrophy COPD (chronic obstructive pulmonary disease) COPD exacerbation Coronary arteriosclerosis Diabetes mellitus History of CVA (cerebrovascular accident) Hyperlipidemia Hypertensive heart disease Lumbar stenosis Respiratory failure with hypoxia Sepsis SVT (supraventricular tachycardia) Thoracic compression fracture Tobacco dependence syndrome UTI (urinary tract infection) Vomiting Weight loss Surgical History History of coronary artery bypass graft S/P CABG x 3 Family History (Updated 01/21/23 @ 15:45 by Мария Hughes RN) Other Diabetes Family history of hyperlipidemia Family history of hypertension Parkinsons Social History (Updated 01/21/23 @ 15:46 by Мария Hughes RN) Smoking Status: Former smoker tobacco type: cigarettes packs per day: 1 alcohol intake: never counseling provided: none substance use type: denies use current occupational status: retired Travel in the last 8 weeks: Inside the [employer] States household members: family housing: house caffeine: Yes ROS Obtained: Yes All systems reviewed & no additional complaints except as documented Physical Exam General General appearance: alert and in no apparent distress Respiratory Respiratory exam: Present normal lung sounds bilaterally Cardiovascular Cardiovascular exam: Present regular rate and normal rhythm Neurological Exam Neurological exam: Present alert and oriented X3 Medical Decision Making Jose Inquiry Pt receiving controlled substance: No Vital Signs: 06/11/23 18:17 06/11/23 18:34 06/11/23 19:01 Temperature 97.9 F Temperature Source Oral Pulse Rate 92 H 88 Pulse Rate [Left Radial] 92 H Respiratory Rate 16 15 18 Blood Pressure 109/65 L 106/53 L Blood Pressure [Right Arm] 127/65 Blood Pressure Mean 72 Blood Pressure Mean [Right Arm] 85 02 Sat by Pulse Oximetry 97 97 97 Oxygen Delivery Method Nasal Cannula Room Air Oxygen Flow Rate (LPM) 2 06/11/23 19:30 06/11/23 20:00 Temperature Temperature Source Pulse Rate 86 85 Pulse Rate [Left Radial] Respiratory Rate 16 15 Blood Pressure 110/63 121/55 L Blood Pressure [Right Arm] Blood Pressure Mean 78 68 Blood Pressure Mean [Right Arm] 02 Sat by Pulse Oximetry 96 96 Oxygen Delivery Method Oxygen Flow Rate (LPM) Lab Data Lab results reviewed: Yes I reviewed the patient's lab results. Lab Results 06/11/23 18:25: WBC 11.6 H, RBC 4.50, Hgb 13.0, Hct 42.5, MCV 94.4, MCH 28.9, M CHC 30.6 L, RDW 14.4, Plt Count 351, MPV 9.3, Neut % (Auto) 67.8, Lymph % (Auto) 23.7, [place] % (Auto) 6.2, Eos % (Auto) 1.4, Baso % (Auto) 1.0, Neut # (Auto) 7.9 H, Lymph # (Auto) 2.8, [place] # (Auto) 0.7, Eos # (Auto) 0.2, Baso # (Auto) 0.1, Sodium 139, Potassium 4.3, Chloride 102, Carbon Dioxide 28, Anion Gap 13.3, BUN 17, Creatinine 1.20 H, Estimated Creat Clear 44, Estimated GFR 44 L, Est GFR ( Amer) 53 L, Glucose 226 H, Calcium 9.0, Magnesium 1.5 L, Total Bilirubin 0.3, AST 49 H, ALT 36, Alkaline Phosphatase 119, Troponin I < 0.01, T otal Protein 6.1 L, Albumin 3.7, Globulin 2.4, Albumin/Globulin Ratio 1.5, TSH 3.54 06/11/23 18:25 06/11/23 18:25 Orders (Tests/Meds): ED MEDICATIONS Discontinued Medications Generic Name Dose Route Start Last Admin Trade Name Freq PRN Reason Stop Dose Admin Magnesium Sulfate 2 gm in 50 mls @ 50 mls/hr 06/11/23 19:10 06/11/23 19:43 Magnesium Sulfate 2gm/50ml Premix IV 06/11/23 20:09 50 mls/hr ONCE ONE Administration ORDERS Category Date Time Status CBC w/Auto Diff [Complete Blood Count Auto Diff] Stat Lab 06/11/23 18:25 Completed CMP [Comprehensive Metabolic Panel] Stat Lab 06/11/23 18:25 Completed Magnesium Stat Lab 06/11/23 18:25 Completed TSH [Thyroid Stimulating Hormone] Stat Lab 06/11/23 18:25 Completed Trop I [Troponin I] Stat Lab 06/11/23 18:25 Completed Troponin I Q3H Lab 06/11/23 22:00 Ordered Troponin I Q3H Lab 06/12/23 01:00 Ordered ECG Data Tracing #1: I reviewed this ECG and interpreted as documented below: Ventricular rate of 94 sinus rhythm no acute ischemic changes noted nonspecific ST changes in the inferior leads there is normal axis Medical Decision Narrative: Well-appearing 72-year-old female presenting today with symptoms consistent with her presentation last year from an SVT episode. Her daughter is at the bedside checked her heart rate at the time which was 17 5 and most likely she was in another AVNRT or SVT episode. The seem to have spontaneously resolved. Will get basic electrolytes TSH etc. No indication for any emergent intervention at the moment we will keep her on the campus supervisor for a period of time and reassess shortly. Reassessment 8:12 PM patient remained stable no evidence on telemetry of any recurrent arrhythmia. Magnesium slightly depressed and was replaced in the emergency department. This may have contributed to irritable myocardium. She has been advised to closely follow-up with primary care doctor regarding maintenance of her potassium and magnesium levels. Additionally she has a mild acute kidney injury with a creatinine of 1.2 baseline 0.6. She is been advised to closely follow-up with primary care doctor regarding this as well do not believe she is to be admitted for this. She remains asymptomatic entire time during the emergency department looks very well. She was discharged with advised to have close outpatient follow-up with her primary care doctor or cardiology return with any worsening symptoms. Critical Care Critical Care Time Critical Care Time: No
[2023-06-11 19:01] VITALS: BP 106/53; PULSE 88; RESP 18; O2SAT 97
[2023-06-11 19:03] LABS: Chloride 102 mmol/L (98-107); Potassium 4.3 mmoL/L (3.5-5.1); Sodium 139 mmol/L (136-145)
[2023-06-11 19:05] LABS: Basophils # 0.1 K/mm3 (0-0.2); Blood Urea Nitrogen 17 mg/dl (7-17); Creatinine Clearance Estimated 44 mL/min (50-200); Eosinophils # 0.2 K/mm3 (0.0-0.4); Eosinophils % 1.4 % (0.1-12.0); Estimated Glomerular Filt Rate 44 ml/min (>60); GFR (African American) 53 ML/MIN (>60); Hematocrit 42.5 % (37.0-47.0); Lymphocytes # 2.8 K/mm3 (0.7-4.5); Lymphocytes % 23.7 % (10-50); Mean Corpuscular HGB Conc 30.6 g/dL (31.8-35.4); Mean Corpuscular Hemoglobin 28.9 pg (27.0-31.2); Mean Corpuscular Volume 94.4 fl (81-99); Mean Platelet Volume 9.3 fl (7.4-10.4); Monocytes # 0.7 K/mm3 (0.1-1.0); Monocytes % 6.2 % (1.7-9.3); Neutrophils # 7.9 K/mm3 (1.8-7.8); Neutrophils % 67.8 % (37.0-80.0); Platelet Count 351 K/mm3 (142-424); Red Cell Distribution Width 14.4 % (11.5-17.5); White Blood Count 11.6 K/mm3 (4.8-10.8)
[2023-06-11 19:06] LABS: Alanine Aminotransferase 36 U/L (12-78); Albumin Level 3.7 g/dl (3.5-5.0); Albumin/Globulin Ratio 1.5 (1.1-1.8); Alkaline Phosphatase 119 U/L (38-126); Anion Gap 13.3 mEq/L (5-15); Aspartate Amino Transferase 49 U/L (14-36); Bilirubin,Total 0.3 mg/dl (0.2-1.3); Carbon Dioxide 28 mmol/L (22.0-30.0); Globulin 2.4 g/dL (1.3-3.2); Glucose 226 mg/dl (74-100); Magnesium 1.5 mg/dl (1.6-2.3); Total Protein,Serum 6.1 g/dl (6.3-8.2)
[2023-06-11 19:21] LABS: Troponin I < 0.01 ng/ml (0.00-0.034)
[2023-06-11 19:30] VITALS: BP 110/63; PULSE 86; RESP 16; O2SAT 96
[2023-06-11 19:37] LABS: Thyroid Stimulating Hormone 3.54 uIU/mL (0.465-4.68)
[2023-06-11] MEDS: MAGNESIUM SULFATE IN WATER 2 GM/50 ML PIGGYBACK IV (19:43)
[2023-06-11 20:00] VITALS: BP 121/55; PULSE 85; RESP 15; O2SAT 96
[2023-06-11 20:30] VITALS: BP 121/55; PULSE 81; RESP 18; TEMP 37; O2SAT 97
== END 2023-06-11 20:32 | disposition still patient (30) ==
PROVIDERS: Emergency Provider Student in an Organized Health Care Education/Training Program; PCP Internal Medicine Adolescent Medicine
DX: I47.10 Supraventricular tachycardia, unspecified (principal); E83.42 Hypomagnesemia; N17.9 Acute kidney failure, unspecified; I25.10 Atherosclerotic heart disease of native coronary artery without angina pectoris; I65.29 Occlusion and stenosis of unspecified carotid artery; G31.89 Other specified degenerative diseases of nervous system; J44.9 Chronic obstructive pulmonary disease, unspecified; E11.9 Type 2 diabetes mellitus without complications; E78.5 Hyperlipidemia, unspecified; I11.9 Hypertensive heart disease without heart failure; Z86.73 Personal history of transient ischemic attack (TIA), and cerebral infarction without residual deficits; Z87.891 Personal history of nicotine dependence
CPT/HCPCS: 80053; 83735; 84443; 84484; 85025; 93005; 96365; 99285; J3475

== ENCOUNTER 2023-12-20 11:53 | Emergency (ER) | payer MEDICARE, MEDICAID, SELFPAY ==
[2023-12-20 12:02] VITALS: BP 127/52; PULSE 82; O2SAT 91
[2023-12-20 12:11] VITALS: BP 127/52; PULSE 85; RESP 18; TEMP 36.6; O2SAT 95; BMI 29.0
--- NOTE | 2023-12-20 12:12 | CT_ITS ---
FINAL REPORT TECHNIQUE: Axial images were obtained from skull base to the thoracic inlet by computed tomography. Coronal and sagittal reconstruction process performed. This study was performed with techniques to keep radiation doses as low as reasonably achievable (ALARA). Individualized dose reduction techniques using automated exposure control or adjustment of mA and/or kV according to the patient''s size were employed. CLINICAL HISTORY: fall, head injury COMPARISON: 01/05/2019 FINDINGS: There is no acute fracture or subluxation. There is mild diffuse degenerative disc disease with moderate facet arthropathy. The facets are normally aligned. The soft tissues are unremarkable. Limited images of the lung apices are unremarkable. IMPRESSION: Degenerative changes without acute fracture. Reviewed, Interpreted and Dictated by Kilo Madrid MD Transcribed by Yasemin Domingo Authenticated and . [facility]
--- NOTE | 2023-12-20 12:12 | CT_ITS ---
FINAL REPORT TECHNIQUE: Thin section axial CT with coronal reconstruction without IV contrast This study was performed with techniques to keep radiation doses as low as reasonably achievable, (ALARA). Individualized dose reduction techniques using automated exposure control or adjustment of mA and/or kV according to the patient''s size were employed. CLINICAL HISTORY: fall, head injury FINDINGS: There are severely comminuted, depressed fractures of the bilateral nasal bones and nasal septum. There is significant leftward deviation of the nasal septum. The orbits and sinuses are intact. There is moderate TMJ arthropathy. IMPRESSION: Severely, comminuted depressed fractures of the bilateral nasal bones. Reviewed, Interpreted and Dictated by Kilo Madrid MD Transcribed by Phoebe Calzada Authenticated and [facility]
--- NOTE | 2023-12-20 12:12 | CT_ITS ---
FINAL REPORT TECHNIQUE: Noncontrast exam This study was performed with techniques to keep radiation doses as low as reasonably achievable, (ALARA). Individualized dose reduction techniques using automated exposure control or adjustment of mA and/or kV according to the patient''s size were employed. CLINICAL HISTORY: fall, head injury COMPARISON: 05/20/2019 FINDINGS: Moderate atrophy and chronic ischemic white matter changes are noted. There are multiple chronic lacunar infarcts in the right basal ganglia. No cortical edema is present. There is no mass or hemorrhage. Ventricles are normal. Bone windows show no skull fracture or obvious obstructive lesion. IMPRESSION: 1. No acute intracranial abnormality or obvious mass. 2. Atrophy and chronic ischemic white matter changes as above. Reviewed, Interpreted and Dictated by Kilo Madrid MD Transcribed by Yasemin Domingo Authenticated and [facility]
--- NOTE | 2023-12-20 12:13 | XR_ITS ---
FINAL REPORT TECHNIQUE: Single view chest CLINICAL HISTORY: fall COMPARISON: 01/22/2023 FINDINGS: A single view of the chest was obtained. Patient is status post CABG. The heart and mediastinum are within normal limits. The lungs are clear. There is no pneumothorax. Osseous structures are unremarkable. IMPRESSION: No acute cardiopulmonary process. Reviewed, Interpreted and Dictated by Kilo Madrid MD Transcribed by Yasemin Domingo Authenticated and . [facility]
--- NOTE | 2023-12-20 12:13 | XR_ITS ---
FINAL REPORT CLINICAL HISTORY: fall FINDINGS: SINGLE VIEW PELVIS: A single view of the pelvis was obtained. There is no acute fracture or dislocation. There are degenerative changes of the hips bilaterally. Vizualized joint spaces are normally aligned. Soft tissues are unremarkable. IMPRESSION: No acute bony abnormality. Reviewed, Interpreted and Dictated by Kilo Madrid MD Transcribed by Yasemin Domingo Authenticated and [facility]
--- NOTE | 2023-12-20 12:13 | ED_ITS ---
Discharge Plan Disposition Patient Disposition: Home, Self-Care Condition: Good Prescriptions Prescriptions: No Action atorvastatin 80 mg tablet 80 mg PO HS magnesium oxide 400 mg capsule 400 mg PO BID aspirin 325 mg tablet 325 mg PO AM multivitamin [Daily Multi-Vitamin] Tablet 1 tab PO AM furosemide 20 mg tablet 20 mg PO AM Patient Comments: TAKE 1 TABLET BY MOUTH DAILY. escitalopram oxalate 10 mg tablet 10 mg PO AM Patient Comments: TAKE 1 TABLET BY MOUTH ONCE DAILY. cholecalciferol (vitamin D3) 25 mcg (1,000 unit) capsule 25 mcg PO HS memantine 10 mg tablet 10 mg PO BID Patient Comments: TAKE 1 TABLET BY MOUTH TWICE DAILY. omeprazole 40 mg capsule,delayed release(DR/EC) 40 mg PO AM donepezil 5 mg tablet 5 mg PO AM isosorbide mononitrate 30 MG tablet 30 mg PO AM ipratropium-albuterol 3 ML solution for nebulization 3 ml inhalation QIDP PRN (Reason: Shortness Of Breath) 30 Days Qty: 120 0RF Rx Instructions: ICD 10 -- J44.9 lisinopril 40 mg tablet 40 mg PO BID metformin 1,000 mg tablet 1,000 mg PO BID Patient Comments: TAKE 1 TABLET BY MOUTH TWICE DAILY metoprolol succinate 100 mg tablet extended release 24 hr 100 mg PO DAILY Patient Comments: TAKE 1 TABLET BY MOUTH ONCE DAILY lorazepam 0.5 mg tablet 0.5 mg PO HS 30 Days Qty: 30 0RF gabapentin 100 mg capsule 100 mg PO BID 30 Days Qty: 60 0RF amlodipine 5 MG tablet 5 mg PO AM Referrals Follow up/Referrals: Devika Holder APRN [Nurse Practitioner] - See instructions Roe Gleason MD [Primary Care Provider] - See instructions Activity Restrictions/Add. Instructions Additional Instructions/Restrictions: Call ENT to schedule an outpatient appointment for nasal bone fractures. Use saline nasal spray as needed. Do not blow nose. Please return to the emerged part with any new, concerning, or worsening symptoms including but not limited to severe nosebleed, change in mental status. Clinical Impressions Clinical Impression: Fall Qualifiers: Encounter type: initial encounter Qualified Code(s): W19.XXXA - Unspecified fall, initial encounter Closed fracture nasal bone Qualifiers: Encounter type: initial encounter Qualified Code(s): S02.2XXA - Fracture of nasal bones, initial encounter for closed fracture Head injury Qualifiers: Encounter type: initial encounter Qualified Code(s): S09.90XA - Unspecified injury of head, initial encounter Instructions Patient Instructions: DI for Nose Fracture Print Language Print Language: Khmer Discharge ED Provider: Jian Lara General Adult HPI General Chief complaint: Fall Stated complaint: AO 12/20/23 @ 9:45, hit face Time Seen by Provider: 12/20/23 11:58 Mode of Arrival: Ambulatory Source of Information: Patient and Relative (daughters) Limitations: No Limitations History of Present Illness HPI narrative: This is a 73-year-old female with a history of CAD status post CABG, prior stroke, dementia who presents after a fall out of her lift chair. States that she fell forward and hit her face on the ground. Did not lose consciousness. Reports deformity and swelling to nose. Epistaxis that has since resolved. Denies pain elsewhere. Daughters were concerned that she seems slightly more confused this morning and are concerned about a UTI Related Data Home Medications ?Medication ?Instructions ?Recorded ?Confirmed atorvastatin 80 mg tablet 80 mg PO HS Cholesterol 04/05/17 12/20/23 magnesium oxide 400 mg PO BID Supplement 04/05/17 12/20/23 aspirin 325 mg tablet 325 mg PO AM heart health 09/14/17 12/20/23 isosorbide mononitrate 30 mg 30 mg PO AM angina 03/26/18 12/20/23 tablet,extended release 24 hr amlodipine 5 mg tablet 5 mg PO AM Hypertension 05/20/19 12/20/23 cholecalciferol (vitamin D3) 25 25 mcg PO HS Supplement 03/13/20 12/20/23 mcg (1,000 unit) capsule memantine 10 mg tablet 10 mg PO BID dementia 09/18/20 12/20/23 omeprazole 40 mg capsule,delayed 40 mg PO AM gerd 09/18/20 12/20/23 release donepezil 5 mg tablet 5 mg PO AM dementia 05/21/21 12/20/23 multivitamin (Daily Multi-Vitamin 1 tab PO AM Supplement 12/03/21 12/20/23 tablet) escitalopram oxalate 10 mg tablet 10 mg PO AM Depression 06/17/22 12/20/23 furosemide 20 mg tablet 20 mg PO AM Edema 06/17/22 12/20/23 lisinopril 40 mg tablet 40 mg PO BID Hypertension 01/21/23 12/20/23 metformin 1,000 mg tablet 1,000 mg PO BID Diabetes 01/22/23 12/20/23 metoprolol succinate 100 mg 100 mg PO DAILY Hypertension 01/22/23 12/20/23 tablet,extended release 24 hr Previous Rx's ?Medication ?Instructions ?Recorded ipratropium 0.5 mg-albuterol 3 mg 3 ml inhalation QIDP PRN Shortness 05/03/20 (2.5 mg base)/3 mL nebulization Of Breath 30 days #120 neb soln gabapentin 100 mg capsule 100 mg PO BID neuropathy 30 days 01/24/23 #60 caps lorazepam 0.5 mg tablet 0.5 mg PO HS Anxiety 30 days #30 01/24/23 tabs Allergies Allergy/AdvReac Type Severity Reaction Status Date / Time Iodinated Contrast Media Allergy Mild Unknown Verified 12/20/23 12:17 allergy reaction naproxen Allergy Mild Unknown Verified 12/20/23 12:17 allergy reaction PFSH [facility] Disclaimer: The information contained in this section may have been updated after the patient was seen, as this information can be updated by other users. Medical History (Updated 12/20/23 @ 14:15 by Jian Lara MD) Cataract SVT (supraventricular tachycardia) COPD exacerbation COPD (chronic obstructive pulmonary disease) Respiratory failure with hypoxia History of CVA (cerebrovascular accident) CAD (coronary artery disease) Vomiting Weight loss Lumbar stenosis Thoracic compression fracture Cerebral atrophy Sepsis UTI (urinary tract infection) CAP (community acquired pneumonia) Carotid artery stenosis Tobacco dependence syndrome Diabetes mellitus Hyperlipidemia Hypertensive heart disease Coronary arteriosclerosis Surgical History History of coronary artery bypass graft S/P CABG x 3 Family History Other Diabetes Family history of hyperlipidemia Family history of hypertension Parkinsons Social History Smoking Status: Former smoker tobacco type: cigarettes packs per day: 1 alcohol intake: never counseling provided: none substance use type: denies use current occupational status: retired Travel in the last 8 weeks: Inside the [place] household members: family housing: house caffeine: Yes ROS Obtained: Yes All systems reviewed & no additional complaints except as documented Physical Exam General General appearance: alert and in no apparent distress Head Head exam: other (Swelling and bruising to the nasal bridge, dried epistaxis) Eye Eye exam: Present normal appearance, PERRL and EOMI Respiratory Respiratory exam: Present normal lung sounds bilaterally; Absent respiratory distress Cardiovascular Cardiovascular exam: Present regular rate and normal rhythm Abdominal Exam Abdominal exam: Present soft and distention; Absent tenderness, guarding or rebound Extremities Exam Extremities exam: Present normal inspection Back Exam Back exam: Absent tenderness Neurological Exam Neurological exam: Present alert and oriented X3 Skin Skin exam: Present warm and dry Medical Decision Making Medical Records Medical records reviewed: Yes I reviewed the patient's medical records. Screening: Per USPSTF and CDC recommendations, given the prevalence of disease in our region, it is our hospital?s policy to screen for HIV and viral Hepatitis for all patients aged 18 and over and those with ongoing risk factors. Jose Inquiry Pt receiving controlled substance: No Vital Signs: 12/20/23 12:02 12/20/23 12:11 12/20/23 13:00 Temperature 97.8 F Temperature Source Oral Pulse Rate 82 78 Pulse Rate [Right Brachial] 85 Respiratory Rate 18 Blood Pressure 127/52 L 118/55 L Blood Pressure [Right Arm] 127/52 L Blood Pressure Mean 76 Blood Pressure Mean [Right Arm] 77 Blood Pressure Source Blood Pressure Source [Right Arm] Automatic Cuff Blood Pressure Position Blood Pressure Position [Right Arm] Sitting 02 Sat by Pulse Oximetry 91 L 95 93 L Oxygen Delivery Method Nasal Cannula Nasal Cannula Oxygen Flow Rate (LPM) 3 12/20/23 13:30 12/20/23 14:30 Temperature 98.0 F Temperature Source Oral Pulse Rate 75 77 Pulse Rate [Right Brachial] Respiratory Rate 16 Blood Pressure 124/54 L 120/65 Blood Pressure [Right Arm] Blood Pressure Mean Blood Pressure Mean [Right Arm] Blood Pressure Source Automatic Cuff Blood Pressure Source [Right Arm] Blood Pressure Position Sitting Blood Pressure Position [Right Arm] 02 Sat by Pulse Oximetry 93 L Oxygen Delivery Method Room Air Oxygen Flow Rate (LPM) Lab Data Lab Results 12/20/23 12:13: Urine Color Yellow, Urine Appearance Clear, Urine pH 5.5, Ur Specific [place] 1.025, Urine Protein Negative, Urine Glucose (UA) Negative, Urine Ketones Trace, Urine Blood Negative, Urine Nitrate Negative, Urine Bilirubin Negative, Urine Urobilinogen 0.2, Ur Leukocyte Esterase Negative, Urine RBC None, Urine WBC None, Ur Squamous Epith Cells None, Urine Bacteria None 12/20/23 12:22: WBC 13.3 H, RBC 3.70 L, Hgb 10.6 L, Hct 34.9 L, MCV 94.2, MCH 28.5, MCHC 30.3 L, RDW 15.7, Plt Count 427 H, MPV 8.8, Neut % (Auto) 82.7 H, Lymph % (Auto) 12.5, [place] % (Auto) 3.4, Eos % (Auto) 1.1, Baso % (Auto) 0.3, N eut # (Auto) 11.0 H, Lymph # (Auto) 1.7, [place] # (Auto) 0.5, Eos # (Auto) 0.1, Baso # (Auto) 0.0, PT 11.5, INR 1.03, Sodium 139, Potassium 3.8, Chloride 99, Carbon Dioxide 29, Anion Gap 14.8, BUN 15, Creatinine 0.80, Estimated Creat Clear 53, Estimated GFR 70, Est GFR ( Amer) 85, Glucose 189 H, Calcium 8.7, Total Bilirubin 0.5, AST 41 H, ALT 39, Alkaline Phosphatase 118, Total Protein 6.3, Albumin 3.7, Globulin 2.6, Albumin/Globulin Ratio 1.4, HIV 1&2 Antibody Rapid Nonreactive 12/20/23 12:22 12/20/23 12:22 Orders (Tests/Meds): ED MEDICATIONS Discontinued Medications Generic Name Dose Route Start Last Admin Trade Name Freq PRN Reason Stop Dose Admin Acetaminophen 1,000 mg 12/20/23 12:17 12/20/23 12:36 Acetaminophen 500mg Tab PO 12/20/23 12:18 1,000 mg ONCE ONE Administration ORDERS Category Date Time Status CT cervical spine wo con Stat Cat Scan 12/20/23 12:[address] facial bones wo con Stat Cat Scan 12/20/23 12:[address] head/brain wo con Stat Cat Scan 12/20/23 12:12 Completed Chest XR -- portable [XR chest portable] Stat Exams 12/20/23 12:13 Completed Pelvis XR 1-2 views [XR pelvis 1-2V] Stat Exams 12/20/23 12:13 Completed CBC w/Auto Diff [Complete Blood Count Auto Diff] Stat Lab 12/20/23 12:22 Completed CMP [Comprehensive Metabolic Panel] Stat Lab 12/20/23 12:22 Completed HIV (1&2) Antibody Rapid Stat Lab 12/20/23 12:22 Completed Hep C Ab with Reflex to RNA Stat Lab 12/20/23 12:22 Received PT/INR [Prothrombin Time INR] Stat Lab 12/20/23 12:22 Completed Urinalysis and Microscopic Stat Lab 12/20/23 12:13 Completed Medical Decision Narrative: In summary, this 73-year-old female with a history of CAD status post CABG x 3, prior stroke, dementia presents to the emergency department today with fall out of a lift chair and head injury. On initial evaluation patient is afebrile, hemodynamically stable, nontoxic-appearing, GCS of 14 which is her baseline. Differential diagnosis includes but is not limited to intracranial hemorrhage such as subdural hematoma or traumatic subarachnoid hemorrhage, cervical spine fracture dislocation, UTI, electrolyte abnormality, anemia. Based on these concerns, I ordered CT head, CT C-spine, CT face, CBC, CMP, PT/INR, urinalysis, chest x-ray, pelvis x-ray. Give Tylenol for pain. Labs personally reviewed demonstrate white blood cell count of 13, anemia with hemoglobin of 10.6, normal INR, no UTI, unremarkable CMP. XR personally interpreted demonstrates no acute cardiopulmonary pathology, no pelvic fractures. CT imaging personally interpreted demonstrates no acute intracranial hemorrhage, no acute cervical spine pathology. Minimally displaced nasal bone fracture. On reassessment in stable condition and in no acute distress. On baseline oxygen and at baseline mental status. Appropriate for discharge with follow-up with ENT. Return precautions given. Critical Care Critical Care Time Critical Care Time: No
[2023-12-20 12:36] LABS: Basophils % 0.3 % (0.1-2.0); Eosinophils # 0.1 K/mm3 (0.0-0.4); Eosinophils % 1.1 % (0.1-12.0); Hematocrit 34.9 % (37.0-47.0); Hemoglobin 10.6 g/dL (12.2-16.2); Lymphocytes # 1.7 K/mm3 (0.7-4.5); Lymphocytes % 12.5 % (10-50); Mean Corpuscular HGB Conc 30.3 g/dL (31.8-35.4); Mean Corpuscular Hemoglobin 28.5 pg (27.0-31.2); Mean Corpuscular Volume 94.2 fl (81-99); Mean Platelet Volume 8.8 fl (7.4-10.4); Monocytes # 0.5 K/mm3 (0.1-1.0); Monocytes % 3.4 % (1.7-9.3); Neutrophils % 82.7 % (37.0-80.0); Platelet Count 427 K/mm3 (142-424); Red Cell Distribution Width 15.7 % (11.5-17.5); White Blood Count 13.3 K/mm3 (4.8-10.8)
[2023-12-20] MEDS: ACETAMINOPHEN 500MG TAB 1000 MG PO (12:36)
[2023-12-20 12:39] LABS: Albumin Level 3.7 g/dl (3.5-5.0); Chloride 99 mmol/L (98-107); Potassium 3.8 mmoL/L (3.5-5.1); Sodium 139 mmol/L (136-145)
--- NOTE | 2023-12-20 12:40 | PC.NURSE ---
PT RETURNED FROM CT
[2023-12-20 12:41] LABS: Alanine Aminotransferase 39 U/L (12-78); Anion Gap 14.8 mEq/L (5-15); Aspartate Amino Transferase 41 U/L (14-36); Blood Urea Nitrogen 15 mg/dl (7-17); Carbon Dioxide 29 mmol/L (22.0-30.0); Creatinine Clearance Estimated 53 mL/min (50-200); Estimated Glomerular Filt Rate 70 ml/min (>60); GFR (African American) 85 ML/MIN (>60)
[2023-12-20 12:42] LABS: Albumin/Globulin Ratio 1.4 (1.1-1.8); Alkaline Phosphatase 118 U/L (38-126); Bilirubin,Total 0.5 mg/dl (0.2-1.3); Calcium 8.7 mg/dl (8.4-10.2); Globulin 2.6 g/dL (1.3-3.2); Glucose 189 mg/dl (74-100); Total Protein,Serum 6.3 g/dl (6.3-8.2)
[2023-12-20 12:44] LABS: INR 1.03 (0.9-1.1); Prothrombin Time 11.5 seconds (10.1-12.5)
[2023-12-20 12:54] LABS: Microscopic, Urine URINE MICROSCOPIC (MICROSCOPIC)
[2023-12-20 13:00] VITALS: BP 118/55; PULSE 78; O2SAT 93
[2023-12-20 13:03] LABS: Appearance,Urine CLEAR (Clear); Bilirubin,Urine Negative (Negative); Blood, Urine Negative (Negative); Color,Urine YELLOW (Yellow); Glucose,Urine (UA) Negative (Negative); Ketones,Urine TRACE (Negative); Leukocyte Esterase,Urine Negative (Negative); Nitrate,Urine Negative (Negative); PH,Urine 5.5 (5.0-8.5); Protein,Urine Negative (Negative); Specific Gravity, Urine 1.025 (1.005-1.030); Urobilinogen,Urine 0.2 EU/dl (0.2)
[2023-12-20 13:30] VITALS: BP 124/54; PULSE 75; O2SAT 93
[2023-12-20 13:39] LABS: HIV (1&2) Antibody Rapid NONREACTIVE (NONREACTIVE)
[2023-12-20 14:30] VITALS: BP 120/65; PULSE 77; RESP 16; TEMP 36.7; O2SAT 99
[2023-12-21 08:51] LABS: HCV Ab Non Reactive (Non Reactive)
== END 2023-12-20 14:33 | disposition home or self-care (01) ==
PROVIDERS: Emergency Provider Student in an Organized Health Care Education/Training Program; PCP Internal Medicine Adolescent Medicine
DX: S09.8XXA Other specified injuries of head, initial encounter (principal); S02.2XXA Fracture of nasal bones, initial encounter for closed fracture; W07.XXXA Fall from chair, initial encounter
CPT/HCPCS: 70450; 70486; 71045; 72125; 72170; 80053; 81001; 85025; 85610; 86803; 87389; 99285

== ENCOUNTER 2024-03-11 09:08 | Inpatient (IN) | payer MEDICARE, MEDICAID, SELFPAY ==
[2024-03-11] VITALS (18 sets, daily range): BP systolic 114–168; BP diastolic 48–74; PULSE 82–129; RESP 14–28; TEMP 36.9–37; O2SAT 87–100; BMI 25.0; BMI 20.4
--- NOTE | 2024-03-11 09:15 | ECG_ITS ---
APPROVED REPORT Exam: Resting ECG HR:85 bpm ECG Measurements Heart Rate 85 AXES AK 186 P 79 QRSd 90 QRS 59 QT 331 T 127 QTc 373 Conclusion Sinus rhythm Occasional PVCs No acute ischemic change Electronically signed by : SUMMER ALBRIGHT, 03/11/2024 16:10:06
--- NOTE | 2024-03-11 09:27 | XR_ITS ---
FINAL REPORT CLINICAL HISTORY: Shortness of breath, cough, hypoxemia COMPARISON: 12/20/2023 FINDINGS: The patient is status post CABG. There is a small left pleural effusion and moderate atelectasis. The right lung is clear. IMPRESSION: Interval development of left pleural effusion and atelectasis. Reviewed, Interpreted and Dictated by Kilo Madrid MD Transcribed by Elsie Stone Authenticated and . [facility]
[2024-03-11 09:34] LABS: Basophils # 0.1 K/mm3 (0-0.2); Basophils % 0.5 % (0.1-2.0); Eosinophils # 0.2 K/mm3 (0.0-0.4); Eosinophils % 1.4 % (0.1-12.0); Hematocrit 34.4 % (37.0-47.0); Hemoglobin 10.9 g/dL (12.2-16.2); Lymphocytes # 2.5 K/mm3 (0.7-4.5); Lymphocytes % 19.3 % (10-50); Mean Corpuscular HGB Conc 31.6 g/dL (31.8-35.4); Mean Corpuscular Hemoglobin 26.2 pg (27.0-31.2); Mean Corpuscular Volume 82.9 fl (81-99); Mean Platelet Volume 7.9 fl (7.4-10.4); Monocytes # 0.8 K/mm3 (0.1-1.0); Monocytes % 5.7 % (1.7-9.3); Neutrophils # 9.6 K/mm3 (1.8-7.8); Neutrophils % 73.1 % (37.0-80.0); Platelet Count 386 K/mm3 (142-424); Red Blood Count 4.15 M/mm3 (4.20-5.40); Red Cell Distribution Width 15.3 % (11.5-17.5); White Blood Count 13.1 K/mm3 (4.8-10.8)
--- NOTE | 2024-03-11 09:34 | ED_ITS ---
Discharge Plan Disposition Patient Disposition: Admitted Chief Complaint: Shortness of Breath/Dyspnea Prescriptions Prescriptions: No Action atorvastatin 80 mg tablet 80 mg PO HS magnesium oxide 400 mg capsule 400 mg PO BID aspirin 325 mg tablet 325 mg PO AM multivitamin [Daily Multi-Vitamin] Tablet 1 tab PO AM furosemide 20 mg tablet 20 mg PO AM Patient Comments: TAKE 1 TABLET BY MOUTH DAILY. escitalopram oxalate 10 mg tablet 10 mg PO AM Patient Comments: TAKE 1 TABLET BY MOUTH ONCE DAILY. pantoprazole 40 mg tablet,delayed release (DR/EC) 40 mg PO DAILY Patient Comments: ONE (1) TAB(S) ORALLY ONCE A DAY 90 DAYS cholecalciferol (vitamin D3) 25 mcg (1,000 unit) capsule 25 mcg PO HS memantine 10 mg tablet 10 mg PO BID Patient Comments: TAKE 1 TABLET BY MOUTH TWICE DAILY. omeprazole 40 mg capsule,delayed release(DR/EC) 40 mg PO AM donepezil 5 mg tablet 5 mg PO AM isosorbide mononitrate 30 MG tablet 30 mg PO AM ipratropium-albuterol 3 ML solution for nebulization 3 ml inhalation QIDP PRN (Reason: Shortness Of Breath) 30 Days Qty: 120 0RF Rx Instructions: ICD 10 -- J44.9 lisinopril 40 mg tablet 40 mg PO BID metformin 1,000 mg tablet 1,000 mg PO BID Patient Comments: TAKE 1 TABLET BY MOUTH TWICE DAILY metoprolol succinate 100 mg tablet extended release 24 hr 100 mg PO DAILY Patient Comments: TAKE 1 TABLET BY MOUTH ONCE DAILY lorazepam 0.5 mg tablet 0.5 mg PO HS 30 Days Qty: 30 0RF gabapentin 100 mg capsule 100 mg PO BID 30 Days Qty: 60 0RF amlodipine 5 MG tablet 5 mg PO AM Referrals Follow up/Referrals: Roe Gleason MD [Primary Care Provider] - See instructions Clinical Impressions Clinical Impression: Acute hypoxemic respiratory failure, Acute exacerbation of chronic obstructive pulmonary disease, CHF exacerbation, Pneumonia Print Language Print Language: Citizen Of [place] Discharge ED Provider: Donnie Moreno General Chief Complaint: Shortness of Breath/Dyspnea Stated Complaint: Low O2, high heart rate Time Seen by Provider: 03/11/24 09:17 Mode of Arrival: Wheelchair Source of Information: Patient Limitations: No Limitations Description of Symptoms (Recalled from ER Triage Doc. by RN): pt presents to ED with family. pt has three daughters that she rotates care with. daughter reports that pt had low oxygen reading this morning, with her baseline 2.5L NC on. daughter also reports pt had high heart rate reading in the 90-100. daughters reports pt ususally has heart rate in the 70's. History of Present Illness HPI narrative: Please note that above description of symptoms, in this electronic medical record under categorization of recalled from ER triage doctor by RN are reflective of an initial nursing assessment, however, is not reflective of my full history and physical exam that was personally taken and clarified. Consequentially, this preceding description of symptoms, which may include the patient's categorized chief complaint in the EMR, do not reflect my personal clinical impression, and the ultimate description of history of present illness and patient stated complaints should be deferred to this section of the note. Unless stated otherwise or congruent with this section of the note, additional signs, symptoms, or incongruence should be interpreted as inaccurate with my clinical impression. Related Data Home Medications ?Medication ?Instructions ?Recorded ?Confirmed atorvastatin 80 mg tablet 80 mg PO HS Cholesterol 04/05/17 02/21/24 magnesium oxide 400 mg PO BID Supplement 04/05/17 02/21/24 aspirin 325 mg tablet 325 mg PO AM heart health 09/14/17 02/21/24 isosorbide mononitrate 30 mg 30 mg PO AM angina 03/26/18 02/21/24 tablet,extended release 24 hr amlodipine 5 mg tablet 5 mg PO AM Hypertension 05/20/19 02/21/24 cholecalciferol (vitamin D3) 25 25 mcg PO HS Supplement 03/13/20 02/21/24 mcg (1,000 unit) capsule memantine 10 mg tablet 10 mg PO BID dementia 09/18/20 02/21/24 omeprazole 40 mg capsule,delayed 40 mg PO AM gerd 09/18/20 02/21/24 release donepezil 5 mg tablet 5 mg PO AM dementia 05/21/21 02/21/24 multivitamin (Daily Multi-Vitamin 1 tab PO AM Supplement 12/03/21 02/21/24 tablet) escitalopram oxalate 10 mg tablet 10 mg PO AM Depression 06/17/22 02/21/24 furosemide 20 mg tablet 20 mg PO AM Edema 06/17/22 02/21/24 lisinopril 40 mg tablet 40 mg PO BID Hypertension 01/21/23 02/21/24 metformin 1,000 mg tablet 1,000 mg PO BID Diabetes 01/22/23 02/21/24 metoprolol succinate 100 mg 100 mg PO DAILY Hypertension 01/22/23 02/21/24 tablet,extended release 24 hr pantoprazole 40 mg tablet,delayed 40 mg PO DAILY 02/21/24 02/21/24 release Previous Rx's ?Medication ?Instructions ?Recorded ipratropium 0.5 mg-albuterol 3 mg 3 ml inhalation QIDP PRN Shortness 05/03/20 (2.5 mg base)/3 mL nebulization Of Breath 30 days #120 neb soln gabapentin 100 mg capsule 100 mg PO BID neuropathy 30 days 01/24/23 #60 caps lorazepam 0.5 mg tablet 0.5 mg PO HS Anxiety 30 days #30 01/24/23 tabs Allergies Allergy/AdvReac Type Severity Reaction Status Date / Time Iodinated Contrast Media Allergy Mild Unknown Verified 02/21/24 13:19 allergy reaction naproxen Allergy Mild Unknown Verified 02/21/24 13:19 allergy reaction PFSH PFS Disclaimer: The information contained in this section may have been updated after the patient was seen, as this information can be updated by other users. Medical History (Updated 03/11/24 @ 11:22 by Donnie Moreno MD) CAD (coronary artery disease) Cataract SVT (supraventricular tachycardia) COPD exacerbation COPD (chronic obstructive pulmonary disease) Respiratory failure with hypoxia History of CVA (cerebrovascular accident) Vomiting Weight loss Lumbar stenosis Thoracic compression fracture Cerebral atrophy Sepsis UTI (urinary tract infection) CAP (community acquired pneumonia) Carotid artery stenosis Tobacco dependence syndrome Diabetes mellitus Hyperlipidemia Hypertensive heart disease Coronary arteriosclerosis Surgical History History of coronary artery bypass graft S/P CABG x 3 Family History Other Diabetes Family history of hyperlipidemia Family history of hypertension Parkinsons Social History Smoking Status: Former smoker tobacco type: cigarettes packs per day: 1 alcohol intake: never counseling provided: none substance use type: denies use current occupational status: retired Travel in the last 8 weeks: Inside the [place] household members: family housing: house caffeine: Yes Have you lived/traveled outside [place] in past 30 days?: No Contact w/someone who lives/traveled outside [place] past 30 days?: No Exposure to someone with infectious disease in past 14 days?: No Do you have a fever (greater than 100.4 F or 38 C)?: No Have you tested positive for COVID-19: No Exposed to someone with COVID-19 in past 14 days?: No Do you have a sore throat?: No Do you have a cough?: No Do you have any weakness?: No Do you have any diarrhea?: No Are you experiencing any unusual bleeding?: No Do you have any muscle aches/pain?: No Do you have any abdominal pain?: No Are you experiencing loss of taste or smell?: No Other Medical History Have you received the Flu Vaccine for this season: No Have you received the Pneumonia Vaccine: Yes ROS Obtained: Yes All systems reviewed & no additional complaints except as documented Physical Exam General General appearance: alert and in no apparent distress Neck Neck exam: Present trachea midline Chest Chest inspection: Present normal inspection and symmetric chest wall rise Respiratory Respiratory exam: Present wheezes (Diffuse bilateral expiratory wheezes, symmetric) and prolonged expiratory phase; Absent respiratory distress, stridor or accessory muscle use Cardiovascular Cardiovascular exam: Present regular rate, normal rhythm and other (Pulses equal and symmetric in upper and lower extremities) Extremities Exam Extremities exam: Absent edema Neurological Exam Neurological exam: Present alert and CN II-XII intact; Absent oriented X3 (Oriented only to person and place. Not time or situation), normal gait (Nonambulatory at home) or motor sensory deficit Skin Skin exam: Present warm and dry; Absent cyanosis, diaphoresis or pallor HEART Score HEART Score HEART Score assessment performed?: Yes History (anamnesis): Moderately suspicious ECG: Normal Age: >65 years Risk factors: 3 or more risk factors Troponin: </= normal limit HEART Score: 5 Critical Care Critical Care Time Critical Care Time: Yes (cv) Attestation: On 03/11/24, the high probability of a clinically significant, sudden or life threatening deterioration of the following system(s) required my full and direct attention, intervention and personal management. The time I documented below is in addition to time spent performing reported procedures but includes the following listed in this critical care notation. Total Time Total Critical Care Time: 45 Medical Decision Making Medical Records Medical records reviewed: Yes I reviewed the patient's medical records. Jose Inquiry Pt receiving controlled substance: No Jose was queried for this patient: No Vital Signs Vital Signs: 03/11/24 09:09 03/11/24 09:30 03/11/24 09:45 Temperature 98.4 F Temperature Source Oral Pulse Rate 88 85 Pulse Rate [Left Radial] 82 Respiratory Rate 16 Blood Pressure 168/73 H 168/73 H Blood Pressure [Right Arm] 159/72 H Blood Pressure Mean [Right Arm] 101 02 Sat by Pulse Oximetry 92 L 91 L 91 L Oxygen Delivery Method Non-Rebreather Non-Rebreather Nasal Cannula Oxygen Flow Rate (LPM) 03/11/24 10:00 03/11/24 10:30 03/11/24 11:00 Temperature Temperature Source Pulse Rate 89 129 H 115 H Pulse Rate [Left Radial] Respiratory Rate 28 H 27 H Blood Pressure 137/48 L 130/61 123/58 L Blood Pressure [Right Arm] Blood Pressure Mean [Right Arm] 02 Sat by Pulse Oximetry 87 L 98 98 Oxygen Delivery Method Nasal Cannula Non-Rebreather Non-Rebreather Oxygen Flow Rate (LPM) 2 11 11 Lab Data Labs: Lab Results 03/11/24 09:21: WBC 13.1 H, RBC 4.15 L, Hgb 10.9 L, Hct 34.4 L, MCV 82.9, MCH 26.2 L, MCHC 31.6 L, RDW 15.3, Plt Count 386, MPV 7.9, Neut % (Auto) 73.1, Lymph % (Auto) 19.3, [place] % (Auto) 5.7, Eos % (Auto) 1.4, Baso % (Auto) 0.5, Neut # (Auto) 9.6 H, Lymph # (Auto) 2.5, [place] # (Auto) 0.8, Eos # (Auto) 0.2, Baso # (Auto) 0.1, PT 11.7, INR 1.05, APTT 22.4 L, Sodium 137, Potassium 3.9, Chloride 96 L, Carbon Dioxide 36 H, Anion Gap 8.9, BUN 17, Creatinine 0.60, Estimated Creat Clear 54, Estimated GFR 98, Est GFR ( Amer) 119, Glucose 146 H, L actate 2.7 H, Calcium 8.9, Magnesium 1.4 L, Total Bilirubin 0.4, AST 45 H, ALT 23, Alkaline Phosphatase 86, Troponin I < 0.01, NT-Pro-B Natriuret Pep 1360 H, Total Protein 6.5, Albumin 3.8, Globulin 2.7, Albumin/Globulin Ratio 1.4 03/11/24 09:28: VBG pH 7.44 H, VBG pCO2 52.4 H, VBG pO2 42.7 H, VBG HCO3 35.0 H, VBG Total CO2 36.6 H, VBG O2 Saturation 79.5 H, VBG Base Excess 10.8 H, VBG Lactic Acid 3.4 H 03/11/24 09:21 03/11/24 09:21 Response Orders (Tests/Meds): ED MEDICATIONS Discontinued Medications Generic Name Dose Route Start Last Admin Trade Name Freq PRN Reason Stop Dose Admin Albuterol/Ipratropium 9 ml 03/11/24 09:27 03/11/24 09:42 Ipratropium/Albuterol 3 Ml Neb IH 03/11/24 09:28 9 ml ONCE ONE Administration Dexamethasone Sodium Phosphate 10 mg 03/11/24 09:27 03/11/24 09:42 Dexamethasone 4mg/Ml 1ml Vial IV 03/11/24 09:28 10 mg ONCE ONE Administration Furosemide 40 mg 03/11/24 10:24 03/11/24 10:37 Furosemide 40mg/4ml Vial IV 03/11/24 10:25 40 mg ONCE ONE Administration Ceftriaxone Sodium 2 gm/ 100 mls @ 200 mls/hr 03/11/24 09:45 03/11/24 09:54 Sodium Chloride IV 03/11/24 10:14 200 mls/hr ONCE ONE Administration Azithromycin 500 mg/ Sodium 250 mls @ 250 mls/hr 03/11/24 09:45 03/11/24 10:08 Chloride IV 03/11/24 09:46 250 mls/hr ONCE ONE Administration ORDERS Category Date Time Status XR chest portable Stat Exams 03/11/24 09:27 Completed Complete Blood Count Auto Diff Stat Lab 03/11/24 09:21 Completed Comprehensive Metabolic Panel Stat Lab 03/11/24 09:21 Results Lactic Acid Stat Lab 03/11/24 09:21 Completed Magnesium Stat Lab 03/11/24 09:21 Results NT Pro Brain Natriuretic Pep. Stat Lab 03/11/24 09:21 Results PT INR [Prothrombin Time INR] Stat Lab 03/11/24 09:21 Completed PTT [Activated Partial Thrombo Time] Stat Lab 03/11/24 09:21 Completed Procalcitonin Stat Lab 03/11/24 09:21 Results Troponin I Q3H Lab 03/11/24 12:30 Ordered Troponin I Q3H Lab 03/11/24 15:30 Ordered Troponin I Stat Lab 03/11/24 09:21 Results Blood Culture Stat Micro 03/11/24 09:40 Received Venous Blood Gas Stat RT 03/11/24 09:28 Completed MDM Narrative Medical Decision Narrative: This is a 73-year-old female history of hypertension, hyperlipidemia, CAD status post three-vessel CABG, COPD no longer smoking on 2.5 L nasal cannula, diabetes, CVA with no residual deficits, dementia presenting with hypoxemia. Family states that patient has been coughing more for the past week or so. Not producing any sputum, but also has weak cough. Today, patient was acting weak. Family put pulse oximeter on her and oxygen was in the 40s. They took nasal cannula oxygen, put in her mouth (due to recent nasal bone fracture) and oxygen came up to the 70s/80s. Because did not return to normal, brought her in for further evaluation. Patient has no complaints on arrival, but family also states that patient will tell physicians anything cannot be admitted. History was obtained via conversation with patient and family. On arrival, patient hemodynamically stable, alert, oriented x4, appropriate, GCS 15, moving all extremities spontaneously, pupils equal and reactive to light. Full physical exam performed and significant for patient on nonrebreather mask 11 L/min saturating in the mid 90%'s. Up from her normal 2.5 L. Prolonged expiratory phase, but no increased work of breathing. Actually breathing more shallow. Diffuse end expiratory wheezes with lower lobe inspiratory wheezes bilaterally and posteriorly. Abdomen soft, nontender, nondistended. Patient's legs without edema. She does have sacral decubitus ulcer. Differential includes COPD, bronchitis, pneumonia, CHF, ACS, NC, among others. Patient was given supplemental oxygen initially for symptomatic management and correction of underlying abnormalities. Patient placed on continuous cardiac monitoring and continuous pulse ox with initial blood pressure 159/72, heart rate 82, saturation 92% on nonrebreather. Independent interpretation of EKG shows sinus rhythm 85 bpm with NC interval 186, QRS 90, QTc 373. Intermittent PVCs. No acute ischemic change. Normal axis. Workup independently interpreted and significant for leukocytosis with neutrophilia white count 13.1. VBG with pH 7.4/CO2 52/bicarb 35, lactate 3.4. Chemistry largely normal. Patient's magnesium 1.4 and BNP elevated at 1300 with normal troponin. Chest x-ray with what appears to be left-sided pneumonia with pleural effusion. See radiology read for full review of final results. Heart score 5., Ceftriaxone and azithromycin administered, patient was also given 80 mg IV Lasix, 2 g IV magnesium. On reevaluation, patient resting at baseline. Hospital medicine consulted and interactive discussion had, patient to be admitted for CHF, COPD exacerbation in the setting of pneumonia, and hypoxemic respiratory failure. Because patient high risk for clinical decompensation, deemed appropriate for inpatient admission. Results were relayed to patient who voiced understanding and patient was agreeable to inpatient admission and management. Patient was admitted to the hospital for further definitive management. Digital Sales Assistant disclaimer Much of this encounter note is an electronic development disability specialist spoken language to printed text. Electronic development disability specialist of the spoken language may permit errors. Although I have reviewed the note, some errors may still exist.
[2024-03-11 09:35] LABS: VBG Base Excess 10.8 mmol/L (-2.4-2.3); VBG Oxygen Saturation 79.5 % (50-70); VBG PH 7.44 mmol/L (7.31-7.41); VBG PO2 42.7 mmol/L (28-40); VBG Total CO2 36.6 mmol/L (23-27)
[2024-03-11 09:39] LABS: Albumin Level 3.8 g/dl (3.5-5.0); Chloride 96 mmol/L (98-107); Potassium 3.9 mmoL/L (3.5-5.1); Sodium 137 mmol/L (136-145)
[2024-03-11 09:42] LABS: Alanine Aminotransferase 23 U/L (12-78); Albumin/Globulin Ratio 1.4 (1.1-1.8); Alkaline Phosphatase 86 U/L (38-126); Aspartate Amino Transferase 45 U/L (14-36); Bilirubin,Total 0.4 mg/dl (0.2-1.3); Blood Urea Nitrogen 17 mg/dl (7-17); Creatinine Clearance Estimated 54 mL/min (50-200); Estimated Glomerular Filt Rate 98 ml/min (>60); GFR (African American) 119 ML/MIN (>60); Globulin 2.7 g/dL (1.3-3.2); Total Protein,Serum 6.5 g/dl (6.3-8.2)
[2024-03-11] MEDS: IPRATROPIUM/ALBUTEROL 3 ML NEB 9 ML IH (09:42)
[2024-03-11] MEDS: DEXAMETHASONE 4MG/ML 1ML VIAL 10 MG IV (09:42)
[2024-03-11 09:43] LABS: Lactate Venous 3.4 mmol/L (0.4-2.0); VBG PCO2 52.4 mmol/L (35-51)
[2024-03-11 09:43] LABS: Calcium 8.9 mg/dl (8.4-10.2); Glucose 146 mg/dl (74-100); Magnesium 1.4 mg/dl (1.6-2.3)
[2024-03-11 09:48] LABS: Lactic Acid 2.7 mmol/L (0.7-2.1)
[2024-03-11 09:49] LABS: Anion Gap 8.9 mEq/L (5-15); Carbon Dioxide 36 mmol/L (22.0-30.0)
[2024-03-11 09:52] LABS: NT Pro Brain Natriuretic Pep. 1360 pg/mL (0-125)
[2024-03-11] MEDS: CEFTRIAXONE SODIUM 2 GM in 0.9 % SODIUM CHLORIDE 100 ML IV (09:54)
[2024-03-11 09:59] LABS: Activated Partial Thrombo Time 22.4 seconds (22.8-30.6); INR 1.05 (0.9-1.1); Prothrombin Time 11.7 seconds (10.1-12.5)
[2024-03-11] MEDS: AZITHROMYCIN 500 MG in 0.9 % SODIUM CHLORIDE 250 ML 250 MG IV (10:08)
[2024-03-11 10:11] LABS: Troponin I < 0.01 ng/ml (0.00-0.034)
[2024-03-11] MEDS: FUROSEMIDE 40MG/4ML VIAL 40 MG IV (10:37)
--- NOTE | 2024-03-11 11:18 | PC.NURSE ---
Dr. Moreno s/w Dr. Dao for admission
--- NOTE | 2024-03-11 11:19 | PC.NURSE ---
rose grading supervisor notified of the admission
--- NOTE | 2024-03-11 11:26 | [facility].PHAINT1 ---
Pharmacy Intervention Comments: MEDICATION RECONCILIATION COMPLETED ON PATIENT USING EXTERNAL FILL HISTORY FROM PHARMACY. -JACQUES MILLER, DRUD
--- NOTE | 2024-03-11 12:00 | PC.NURSE ---
Pt is boarding until we have an available bed.
--- NOTE | 2024-03-11 13:27 | PC.NURSE ---
Report called to Senia THOMPSON
[2024-03-11 13:36] LABS: Reflex Lactic Add Lactic Reflex
[2024-03-11 14:12] LABS: Lactic Acid Follow Up (RFLX 1) 2.3 mmol/L (0.7-2.1)
[2024-03-11 14:48] LABS: Adenovirus,PCR Not Detected (NotDetected); Bordetella Pertussis Not Detected (NotDetected); Chlamydophila Pneumoniae, PCR Not Detected (NotDetected); Coronavirus 19, PCR Not Detected (NotDetected); Coronavirus 229E Not Detected (NotDetected); Coronavirus NL63 Not Detected (NotDetected); Coronavirus OC43 Not Detected (NotDetected); Coronovirus HKU1,PCR Not Detected (NotDetected); Human Metapneumovirus Not Detected (NotDetected); Influenza A, PCR Not Detected (NotDetected); Influenza AH1, 2009 Not Detected (NotDetected); Influenza AH1, PCR Not Detected (NotDetected); Influenza AH3,PCR Not Detected (NotDetected); Influenza B, PCR Not Detected (NotDetected); Mycoplasma Pneumoniae, PCR Not Detected (NotDetected); Parainfluenza 1, PCR Not Detected (NotDetected); Parainfluenza 2, PCR Not Detected (NotDetected); Parainfluenza 3, PCR Not Detected (NotDetected); Parainfluenza 4, PCR Not Detected (NotDetected); Respiratory Syncytial Virus Not Detected (NotDetected); Rhinovirus/Enterovirus Not Detected (NotDetected)
--- NOTE | 2024-03-11 15:25 | P.HP_ITS ---
History of Present Illness *Admission Date: 03/11/24 *Reason for visit:: Short of breath *History of present illness: Ms. Stone is a 73-year-old female history of CVA with residual right sided deficits, CABG, CHF, who presented with acute hypoxia earlier today. Wears oxygen of 2 to 3 L at baseline. This morning had significantly low oxygen when evaluated by her daughters. Seemed confused and does not herself. Heart rate was up. They brought her into the ER for evaluation. On arrival to the ER, patient necessitating on rebreather there for saturations in the mid 80s. Fluting imaging and labs showed concern for effusion versus pneumonia on chest x-ray, elevated BNP, kidney function at baseline. White count marginally elevated at 13. Given increased oxygen requirement and abnormalities, medicine consulted for admission and further management of CHF and pneumonia On arrival to the floor, patient appears in no acute distress. Satting 95-100 on nonrebreather. Weaned to Ventimask during rounds. Pleasant on exam. Family at bedside helps supplement history. [facility] Disclaimer: The information contained in this section may have been updated after the patient was seen, as this information can be updated by other users. Medical History CAD (coronary artery disease) Cataract SVT (supraventricular tachycardia) COPD exacerbation COPD (chronic obstructive pulmonary disease) Respiratory failure with hypoxia History of CVA (cerebrovascular accident) Vomiting Weight loss Lumbar stenosis Thoracic compression fracture Cerebral atrophy Sepsis UTI (urinary tract infection) CAP (community acquired pneumonia) Carotid artery stenosis Tobacco dependence syndrome Diabetes mellitus Hyperlipidemia Hypertensive heart disease Coronary arteriosclerosis Surgical History History of coronary artery bypass graft S/P CABG x 3 Family History Other Diabetes Family history of hyperlipidemia Family history of hypertension Parkinsons Social History Smoking Status: Former smoker tobacco type: cigarettes packs per day: 1 alcohol intake: never counseling provided: none substance use type: denies use current occupational status: retired Travel in the last 8 weeks: Inside the [place] household members: family housing: house caffeine: Yes Have you lived/traveled outside [place] in past 30 days?: No Contact w/someone who lives/traveled outside US past 30 days?: No Exposure to someone with infectious disease in past 14 days?: No Do you have a fever (greater than 100.4 F or 38 C)?: No Have you tested positive for COVID-19: No Exposed to someone with COVID-19 in past 14 days?: No Do you have a sore throat?: No Do you have a cough?: No Do you have any weakness?: No Do you have any diarrhea?: No Are you experiencing any unusual bleeding?: No Do you have any muscle aches/pain?: No Do you have any abdominal pain?: No Are you experiencing loss of taste or smell?: No Other Medical History Have you received the Flu Vaccine for this season: Yes Have you received the Pneumonia Vaccine: Yes Review of Systems Review of Systems Review of systems (narrative): 14 point review of systems performed, pertinent positives and negatives as per HPI Meds Home Medications and Allergies Home Medications ?Medication ?Instructions ?Recorded ?Confirmed ?Type atorvastatin 80 mg tablet 80 mg PO HS 04/05/17 03/11/24 History magnesium oxide 400 mg PO BID 04/05/17 03/11/24 History aspirin 325 mg tablet 325 mg PO DAILY 09/14/17 03/11/24 History isosorbide mononitrate 30 mg 30 mg PO DAILY 03/26/18 03/11/24 History tablet,extended release 24 hr amlodipine 5 mg tablet 5 mg PO DAILY 05/20/19 03/11/24 History cholecalciferol (vitamin D3) 25 25 mcg PO HS 03/13/20 03/11/24 History mcg (1,000 unit) capsule memantine 10 mg tablet 10 mg PO BID 09/18/20 03/11/24 History donepezil 5 mg tablet 5 mg PO DAILY 05/21/21 03/11/24 History multivitamin (Daily Multi-Vitamin 1 tab PO DAILY 12/03/21 03/11/24 History tablet) escitalopram oxalate 10 mg tablet 10 mg PO DAILY 06/17/22 03/11/24 History furosemide 20 mg tablet 20 mg PO DAILY 06/17/22 03/11/24 History lisinopril 40 mg tablet 40 mg PO BID 01/21/23 03/11/24 History metformin 1,000 mg tablet 1,000 mg PO BID 01/22/23 03/11/24 History metoprolol succinate 100 mg 100 mg PO DAILY 01/22/23 03/11/24 History tablet,extended release 24 hr pantoprazole 40 mg tablet,delayed 40 mg PO DAILY 02/21/24 03/11/24 History release gabapentin 100 mg capsule 100 mg PO BID 03/11/24 03/11/24 History lorazepam 0.5 mg tablet 0.5 mg PO HS 03/11/24 03/11/24 History New Prescriptions to Start Prescriptions: Allergies Allergy/AdvReac Type Severity Reaction Status Date / Time Iodinated Contrast Media Allergy Mild Unknown Verified 02/21/24 13:19 allergy reaction naproxen Allergy Mild Unknown Verified 02/21/24 13:19 allergy reaction Exam Data for Last 24 hours Vital signs and Labs for Last 24 Hours: Temp Pulse Resp BP Pulse Ox O2 Del Method O2 Flow Rate 98.5 F 106 H 20 135/51 L 95 Venturi Mask 9 03/11/24 13:27 03/11/24 14:08 03/11/24 14:08 03/11/24 14:08 03/11/24 15:24 03/11/24 15:24 03/11/24 15:24 FiO2 35 03/11/24 15:24 Laboratory Results - last 24 hr 03/11/24 09:21: WBC 13.1 H, RBC 4.15 L, Hgb 10.9 L, Hct 34.4 L, MCV 82.9, MCH 26.2 L, MCHC 31.6 L, RDW 15.3, Plt Count 386, MPV 7.9, Neut % (Auto) 73.1, Lymph % (Auto) 19.3, Schuyler % (Auto) 5.7, Eos % (Auto) 1.4, Baso % (Auto) 0.5, Neut # (Auto) 9.6 H, Lymph # (Auto) 2.5, Schuyler # (Auto) 0.8, Eos # (Auto) 0.2, Baso # (Auto) 0.1, PT 11.7, INR 1.05, APTT 22.4 L, Sodium 137, Potassium 3.9, Chloride 96 L, Carbon Dioxide 36 H, Anion Gap 8.9, BUN 17, Creatinine 0.60, Estimated Creat Clear 54, Estimated GFR 98, Est GFR ( Amer) 119, Glucose 146 H, Lactate 2.7 H, Calcium 8.9, Magnesium 1.4 L, Total Bilirubin 0.4, AST 45 H, ALT 23, Alkaline Phosphatase 86, Troponin I < 0.01, NT-Pro-B Natriuret Pep 1360 H, Total Protein 6.5, Albumin 3.8, Globulin 2.7, Albumin/Globulin Ratio 1.4 03/11/24 09:28: VBG pH 7.44 H, VBG pCO2 52.4 H, VBG pO2 42.7 H, VBG HCO3 35.0 H, VBG Total CO2 36.6 H, VBG O2 Saturation 79.5 H, VBG Base Excess 10.8 H, VBG Lactic Acid 3.4 H 03/11/24 13:40: Lactate 2.3 H I & O for Last 24 hours: Intake & Output 03/08/24 03/09/24 03/10/24 03/11/24 23:59 23:59 23:59 23:59 Weight 55.593 kg Constitutional Constitutional: mild distress, thin, chronically ill appearing and cooperative *Routine HEENT Exam Head: Present normocephalic Eye: Present EOMI and PERRL ENT: Present mucous membranes moist *Routine Neck Exam Neck: Present supple; Absent lymphadenopathy *Routine Respiratory Exam Respiratory: Present prolonged expiratory phase, crackles and diminished air movement; Absent rhonchi or wheezes *Routine Cardiovascular Exam Cardiovascular: Present RRR *Routine Abdominal Exam Abdominal: Present soft and normoactive bowel sounds; Absent tenderness *Routine Rectal Exam Rectal:: deferred *Routine Genitalia Exam Genitalia:: deferred *Routine Extremities Exam Extremities: Absent cyanosis, clubbing or edema *Routine Skin Exam Skin: Present warm; Absent rash *Routine Neurological Exam Neurological: Present alert; Absent altered mental status or moving all extremities Comments: Right sided deficits Assessment and Plan *Assessment and plan (1) Acute hypoxemic respiratory failure: Status: Acute Category: Medical Code(s): J96.01 - Acute respiratory failure with hypoxia (2) CHF exacerbation: Status: Acute Category: Medical Code(s): I50.9 - Heart failure, unspecified (3) Pneumonia: Status: Acute Category: Medical Code(s): J18.9 - Pneumonia, unspecified organism (4) Acute exacerbation of chronic obstructive pulmonary disease: Status: Acute Category: Medical Code(s): J44.1 - Chronic obstructive pulmonary disease with (acute) exacerbation (5) CAD (coronary artery disease): Status: Acute Qualifiers: Associated angina: without angina Coronary Disease-Associated Artery/Lesion type: [place] artery [place] vs. transplanted heart: [place] heart Qualified Code(s): I25.10 - Atherosclerotic heart disease of [place] coronary artery without angina pectoris Category: Medical Code(s): I25.10 - Atherosclerotic heart disease of [place] coronary artery without angina pectoris (6) Diabetes type 2, controlled: Status: Acute Category: Medical Code(s): E11.9 - Type 2 diabetes mellitus without complications (7) Diastolic CHF: Status: Acute Category: Medical Code(s): I50.30 - Unspecified diastolic (congestive) heart failure (8) Vascular dementia: Status: Acute Category: Medical Code(s): F01.50 - Vascular dementia, unspecified severity, without behavioral disturbance, psychotic disturbance, mood disturbance, and anxiety (9) History of CVA (cerebrovascular accident): Status: Chronic Category: Medical Code(s): Z86.73 - Personal history of transient ischemic attack (TIA), and cerebral infa rction without residual deficits Plan 73-year-old female with history of CHF, CABG, CAD, CVA, diabetes, dementia. Presented with acute worsening shortness of breath. Workup in the ER concerning for CHF exacerbation and pneumonia. Discussed case with ER physician, request admission for diuresis and antibiotics. I agreed to admit for further management. PSI port score of 93, class IV risk. Due to age, female, CVA history, pleural effusion, CHF. Problems addressed as follows: Acute on chronic hypoxemic respiratory failure CHF exacerbation Pneumonia -Continue supplemental oxygen for goal sats greater 90%. Currently on Ventimask 50%. Wean as tolerated. -Treated with ceftriaxone and azithromycin in the ER, continue ceftriaxone 1 g daily and azithromycin 500 mg daily. Cultures pending -Initiated on diuresis given component of CHF and effusion. 80 mg Lasix IV once in the ER. Continue 80 mg twice daily. Strict I's and O's -BNP elevated at 1360. Troponin negative at less than 0.01. -Kidney function normal with BUN 17, creatinine 0.6. Monitor electrolytes. Potassium 3.9, magnesium 1.4. Supplemented IV magnesium 2 g once. Repeat CBC, CMP, magnesium ordered for the morning -White count elevated to 13. -Per my review of chest imaging, enlarged heart silhouette along with effusion versus airspace disease in left lower lung, sternotomy wires present -Echo ordered to evaluate heart function. Does not have recent echo in the past 3 years showing diastolic versus systolic heart failure -Cardiology consult for the morning Diabetes: A1c pending, continue sliding scale insulin with fingersticks ACHS. Continue home metformin at 1000 mg twice daily Hypertension: Continue 5 mg daily. Metoprolol succinate 100 mg daily lisinopril 40 mg daily, isosorbide mononitrate grams daily History of CVA: continue Lipitor 80 mg daily for hyperlipidemia, continue aspirin 325 mg daily Depression: Continue Lexapro 10 mg daily Vascular dementia: Continue donepezil 5 g daily memantine 10 mg twice daily. DNR/DNI PLOV Cardiac diet
[2024-03-11 15:48] LABS: Reflex Lactic (2 hrs) Add Lactic Reflex
[2024-03-11] MEDS: MAGNESIUM SULFATE IN WATER 2 GM/50 ML PIGGYBACK IV ×3 (15:56→18:18)
[2024-03-11 16:38] LABS: Lactic Acid Follow up (RFLX 2) 2.3 mmol/L (0.7-2.1)
[2024-03-11 17:17] LABS: Procalcitonin 0.071 ng/mL (0.0-2.0)
[2024-03-11] MEDS: METOPROLOL TARTRATE 5MG/5ML VIAL 5 MG IV (18:18)
[2024-03-11] MEDS: IPRATROPIUM/ALBUTEROL 3 ML NEB IH ×2 (19:08→23:33)
[2024-03-11] MEDS: GABAPENTIN 100MG CAPSULE 100 MG PO (20:47)
[2024-03-11] MEDS: LORazepam 0.5MG TABLET 0.5 MG PO (20:47)
[2024-03-11] MEDS: MEMANTINE 10MG TABLET 10 MG PO (20:47)
[2024-03-11] MEDS: MAGNESIUM OXIDE 400 MG 400 EACH PO (20:47)
[2024-03-11] MEDS: ATORVASTATIN 40MG TABLET 80 MG PO (20:48)
[2024-03-11] MEDS: PATIENT'S OWN HOME MEDICATION (Metformin 1,000 mg tablet) 1000 EACH PO (20:48)
[2024-03-11] MEDS: humaLOG 100 UNITS/ML 10ML VIAL (SSI) SUBCUT (20:48)
[2024-03-11 21:22] LABS: POC Glucose,Bedside 443 (70-110)
[2024-03-12] VITALS (11 sets, daily range): BP systolic 103–148; BP diastolic 52–67; PULSE 69–90; RESP 18–22; TEMP 36.6–37.3; O2SAT 93–97
[2024-03-12 05:34] LABS: POC Glucose,Bedside 130 (70-110)
[2024-03-12] MEDS: IPRATROPIUM/ALBUTEROL 3 ML NEB IH ×3 (06:22→18:42)
[2024-03-12 07:19] LABS: Basophils # 0.1 K/mm3 (0-0.2); Eosinophils % 0.1 % (0.1-12.0); Red Cell Distribution Width 15.2 % (11.5-17.5)
[2024-03-12 07:28] LABS: Albumin Level 3.6 g/dl (3.5-5.0); Chloride 98 mmol/L (98-107); Potassium 3.8 mmoL/L (3.5-5.1); Sodium 138 mmol/L (136-145)
[2024-03-12 07:31] LABS: Alanine Aminotransferase 23 U/L (12-78); Albumin/Globulin Ratio 1.3 (1.1-1.8); Alkaline Phosphatase 94 U/L (38-126); Anion Gap 7.8 mEq/L (5-15); Aspartate Amino Transferase 37 U/L (14-36); Bilirubin,Total 0.3 mg/dl (0.2-1.3); Blood Urea Nitrogen 24 mg/dl (7-17); Calcium 8.7 mg/dl (8.4-10.2); Carbon Dioxide 36 mmol/L (22.0-30.0); Creatinine Clearance Estimated 43 mL/min (50-200); Estimated Glomerular Filt Rate 82 ml/min (>60); GFR (African American) 99 ML/MIN (>60); Globulin 2.7 g/dL (1.3-3.2); Glucose 121 mg/dl (74-100); Total Protein,Serum 6.3 g/dl (6.3-8.2)
[2024-03-12 07:32] LABS: Magnesium 3.1 mg/dl (1.6-2.3)
[2024-03-12 07:42] LABS: Basophils % 0.6 % (0.1-2.0); Hematocrit 31.1 % (37.0-47.0); Hemoglobin 9.8 g/dL (12.2-16.2); Lymphocytes # 1.6 K/mm3 (0.7-4.5); Lymphocytes % 9.1 % (10-50); Mean Corpuscular HGB Conc 31.5 g/dL (31.8-35.4); Mean Corpuscular Hemoglobin 26.2 pg (27.0-31.2); Mean Corpuscular Volume 83.2 fl (81-99); Mean Platelet Volume 8.9 fl (7.4-10.4); Monocytes % 5.6 % (1.7-9.3); Neutrophils # 15.1 K/mm3 (1.8-7.8); Neutrophils % 84.7 % (37.0-80.0); Platelet Count 359 K/mm3 (142-424); Red Blood Count 3.74 M/mm3 (4.20-5.40); White Blood Count 17.8 K/mm3 (4.8-10.8)
[2024-03-12 07:43] LABS: MANUAL DIFFERENTIAL MANUAL DIFFERENTIAL (MANUAL DIFF)
[2024-03-12] MEDS: LISINOPRIL 20MG TABLET 40 MG PO (08:29)
[2024-03-12] MEDS: PANTOPRAZOLE 40MG TABLET 40 MG PO (08:29)
[2024-03-12] MEDS: ENOXAPARIN 40MG/0.4ML SYRINGE 40 MG SUBCUT (08:29)
[2024-03-12] MEDS: CEFTRIAXONE SODIUM 1 GM in 0.9 % SODIUM CHLORIDE 50 ML IV (08:29)
[2024-03-12] MEDS: MAGNESIUM OXIDE 400MG TABLET 400 MG PO ×2 (08:30→20:43)
[2024-03-12] MEDS: ISOSORBIDE MONO 30MG TAB.ER.24H 30 MG PO (08:30)
[2024-03-12] MEDS: ASPIRIN 325MG TABLET 325 MG PO (08:30)
[2024-03-12] MEDS: GABAPENTIN 100MG CAPSULE 100 MG PO ×2 (08:30→20:43)
[2024-03-12] MEDS: AMLODIPINE 5MG TABLET 5 MG PO (08:30)
[2024-03-12] MEDS: CITALOPRAM 20MG TABLET 20 MG PO (08:30)
[2024-03-12] MEDS: METFORMIN 500MG TABLET 1000 MG PO ×2 (08:30→17:08)
[2024-03-12] MEDS: METOPROLOL SUCCINATE XL 100MG TABLET 100 MG PO (08:31)
[2024-03-12] MEDS: DONEPEZIL 5MG TAB 5 MG PO (08:31)
[2024-03-12] MEDS: AZITHROMYCIN 250MG TABLET 500 MG PO (08:31)
[2024-03-12] MEDS: MEMANTINE 10MG TABLET 10 MG PO ×2 (08:31→20:43)
[2024-03-12] MEDS: FUROSEMIDE 40MG/4ML VIAL 40 MG IV ×2 (08:31→17:08)
[2024-03-12 08:45] LABS: Lymphocytes % 8 % (10-50); Monocytes % 5 % (2-9); Neutrophils % 87 % (42-76); RBC Morphology Normal; Total Cells Counted 100
[2024-03-12 08:46] LABS: Platelet Estimate Normal
[2024-03-12] MEDS: SODIUM CHLORIDE 3% 15ML NEB 3 ML IH (11:06)
--- NOTE | 2024-03-12 13:42 | HMH.PTEV ---
Physical Therapy Evaluation Rehab PT IP Evaluation Start: 03/12/24 10:49 Freq: ONCE Status: Active Protocol: Document 03/12/24 13:36 JENSEN (Rec: 03/12/24 13:42 JENSEN [id number]) Subjective/History History History Per H&P: Ms. Stone is a 73 -year-old female history of CVA with residual right sided deficits, CABG, CHF, who presented with acute hypoxia earlier today. Wears oxygen of 2 to 3 L at baseline. This morning had significantly low oxygen when evaluated by her daughters. Seemed confused and does not herself. Heart rate was up. They brought her into the ER for evaluation. On arrival to the ER, patient necessitating on rebreather there for saturations in the mid 80s. Fluting imaging and labs showed concern for effusion versus pneumonia on chest x-ray, elevated BNP, kidney function at baseline. White count marginally elevated at 13. Given increased oxygen requirement and abnormalities, medicine consulted for admission and further management of CHF and pneumonia Subjective Subjective Pt lives with her daughters. Her daughter's rotate care each week. One daughter has a who is able to also assist. Pt usually requires assistance with all mobility and is usually non-ambulatory. Pt uses w/c. Pt uses a lift chair and hospital bed at one location and a recliner at other location. New diagnosis of cancer in past 12 No months? Rehab PT IP Eval Objective Appearance Patient Behavior Appropriate,Cooperative Patient Orientation Person Difficulty following instructions none Speech Pattern Clear Ambulation Patient Able to Ambulate No Balance Ability to Arise Unable Sitting Balance Leans or slides in chair Standing Balance Unsteady Transfers Bed Transfer Ability Maximum x 2 (75% assist) Rehab PT IP prob,goals,plan Problems Date of Evaluation: 03/12/24 PT IP Problems Bed Mobility,Transfers,Gait, Balance,Safety Rehab Potential Rehab Potential Good Plan PT Intervention Plan Bed Mobility,Transfers,Gait, Balance,Safety,Therapeutic Exercise Other Intervention Plan 1-2 times PT Plan Frequency Daily Duration LOS Discharge Goals Bed Transfer Ability Maximum x 1 (75% assist) Sit to Stand Chair Transfer Ability Maximum x 2 (75% assist) Discharge Plan PT Discharge Plan Initial physical therapy evaluation performed. Patient presents below baseline at this time in functional mobility, transfers, and strength. PT recommending short-term rehabilitation stay upon d/c from [facility]. Pt may be safe to d/c home with assistance as needed by family and HH PT services if pt demo 's improved mobility while at [facility]. Pt would benefit from skilled acute care PT to prevent further functional decline and maximize safety with mobility. Eval Complexity Eval Charge Codes 56276 - High Complexity PHYSICIAN CERTIFICATION: I certify the specified therapy services for Margarita Stone are required, authorized, and reviewed every 30 days.
--- NOTE | 2024-03-12 13:42 | HMH.OTEV ---
OT Inpatient Evaluation Rehab OT IP Evaluation Start: 03/12/24 10:49 Freq: ONCE Status: Active Protocol: Document 03/12/24 13:34 [facility] (Rec: 03/12/24 13:42 [facility] [id number]) Rehab OT IP Assessment Subjective History Pt oriented to self (x1). Daughter present and supportive of therapy session. Pt admitted on 03/11/24 due to SOB. History and physical: Ms. Stone is a 73-year-old female history of CVA with residual right sided deficits, CABG, CHF, who presented with acute hypoxia earlier today. Wears oxygen of 2 to 3 L at baseline. This morning had significantly low oxygen when evaluated by her daughters. Seemed confused and does not herself. Heart rate was up. They brought her into the ER for evaluation. On arrival to the ER, patient necessitating on rebreather there for saturations in the mid 80s. Fluting imaging and labs showed concern for effusion versus pneumonia on chest x- ray, elevated BNP, kidney function at baseline. White count marginally elevated at 13. Given increased oxygen requirement and abnormalities, medicine consulted for admission and further management of CHF and pneumonia Subjective I can't remember the date. Prior to being in the hospital , pt lived with her children. She rotates week with each child who provide / care for her. Daughter reports she is normally able to stand and pivot from surface to surface with assistance. She has not been walking for quite some time and uses a manual wheelchair for functional transfers. Pt also requires assistance with dressing, bathing, and feeding. Pt is dependent upon family for completion of IADLs. Objective Patient Orientation Person Right Upper Extremity Gross ROM Mod Limitation 50% Left Upper Extremity Gross ROM Min Limitation <25% Shoulder ROM Limitations Muscle Weakness Elbow ROM Limitations Muscle Weakness Wrist Limitations of Range of Motion Muscle Weakness Bed Mobility bed mobility-scooting,bed mobility - supine/sit Assist Level Maximum x 2 (75% assist) Rehab OT IP prob,goals,plan Problems Date of Evaluation: 03/12/24 OT IP Problems Bed Mobility,Transfers,Balance ,Self care,Safety Rehab Potential Rehab Potential Fair Equipment Needs Assistive Devices Rolling / Wheeled Walker, Wheelchair Plan OT intervention Plan Bed Mobility,Transfers,Balance ,Self care,Safety,Therapeutic Exercise OT Plan Frequency Daily Duration LOS Discharge Goals Bed Mobility Ability Assistance x1 Sit to Stand Chair Transfer Ability Maximum x 1 (75% assist) Chair Transfer Ability Maximum x 1 (75% assist) Chair Transfer Technique Stand Pivot Chair Transfer Assistive Devices Rolling Walker Lower Body Dressing Ability Maximum Assistance Upper Body Dressing Ability Maximum Assistance Bathing Ability Maximum Assistance Performing Toilet Hygiene Ability Maximum Assistance Overall Commode/Toilet Transfer Ability Maximum Assistance Commode/Toilet Transfer Technique Stand Pivot Oral Care Assist Contact Guard Decrease in Endurance Yes Discharge Plan OT Discharge Plan Pt will continue to be seen for OT services while at [facility]. Pt would benefit most from short term rehab at [facility]. However, if family not agreeable, she can return home with their continued / assistance. If she does return home with family, therapist recommends OT evaluation for continued skilled therapy to reach PLOF. Eval Complexity Eval Charge Codes 70968 - Moderate Complexity PHYSICIAN CERTIFICATION: I certify the specified therapy services for Margarita Stone are required, authorized, and reviewed every 30 days.
--- NOTE | 2024-03-12 13:49 | EXP.CARD.CON ---
History of Present Illness History of Present Illness Consult date: 03/12/24 Requesting physician: Steven Dao Consult reason: congestive heart failure Chief complaint: SOA, confusion History of present illness: 73-year-old white female I am seeing on telemetry floor after she was admitted for hypoxia overnight. History is obtained via chart and patient's daughter who is a caregiver and bedside. Patient is an established patient of our office with history of CABG 2013 as well as SVT, prior CVA, diabetes, advanced COPD on 2 L/min at baseline. Patient's daughter states patient had become more hypoxic and short of breath over the past 1 to 2 weeks requiring increased titration of her home O2. They state they were frequently getting readings in the 40s and even the low 70s with supplemental oxygen on. Yesterday they called EMS due to confusion and ongoing hypoxia. On evaluation here she had proBNP of 1360, normal procalcitonin, WBC 13K, PCR negative, chest x-ray small left effusion with moderate atelectasis. We are consulted for evaluation of possible CHF. 2D echo is pending. This morning patient is satting low 90s on 3 L/min nasal cannula and mentation is improving. [facility] Disclaimer: The information contained in this section may have been updated after the patient was seen, as this information can be updated by other users. Medical History CAD (coronary artery disease) Cataract SVT (supraventricular tachycardia) COPD exacerbation COPD (chronic obstructive pulmonary disease) Respiratory failure with hypoxia History of CVA (cerebrovascular accident) Vomiting Weight loss Lumbar stenosis Thoracic compression fracture Cerebral atrophy Sepsis UTI (urinary tract infection) CAP (community acquired pneumonia) Carotid artery stenosis Tobacco dependence syndrome Diabetes mellitus Hyperlipidemia Hypertensive heart disease Coronary arteriosclerosis Surgical History History of coronary artery bypass graft S/P CABG x 3 Family History Other Diabetes Family history of hyperlipidemia Family history of hypertension Parkinsons Social History Smoking Status: Former smoker tobacco type: cigarettes packs per day: 1 alcohol intake: never counseling provided: none substance use type: denies use current occupational status: retired Travel in the last 8 weeks: [place] the [place] household members: family housing: house caffeine: Yes Review of Systems Constitutional Constitutional: Denies fatigue and Denies weakness Eyes Eyes: Denies loss of vision ENT Ears, Nose, Mouth, and Throat: Denies hearing loss and Denies vertigo *Cardiovascular Cardiovascular: Denies chest pain, Denies dyspnea and Denies syncope *Respiratory Respiratory: Denies cough and Denies dyspnea *Gastrointestinal Gastrointestinal: Denies change in stool character, Denies nausea and Denies vomiting *Musculoskeletal Musculoskeletal: Denies muscle weakness Integumentary/Breasts Skin/Breast: Denies changing lesions *Neurologic Neurologic: Denies loss of vision, Denies syncope, Denies vertigo and Denies weakness Endocrine Endocrine: Denies fatigue Exam Data for Last 24 hours Vital signs and Labs for Last 24 Hours: Temp Pulse Resp BP Pulse Ox O2 Del Method O2 Flow Rate 97.9 F 73 18 141/64 H 93 L Nasal Cannula 3 03/12/24 04:00 03/12/24 11:07 03/12/24 11:07 03/12/24 04:00 03/12/24 06:21 03/12/24 11:00 03/12/24 11:00 FiO2 50 03/12/24 08:00 Laboratory Results - last 24 hr 03/11/24 09:21: Procalcitonin 0.071 03/11/24 13:40: Lactate 2.3 H 03/11/24 14:45: Chlamy pneumoniae PCR Not detected, Adenovirus (PCR) Not detected, B. pertussis DNA (PCR) Not detected, Coronavirus OC43 (PCR) Not detected, Coronavirus HKU1 (PCR) Not detected, Coronavirus 229E (PCR) Not detected, SARS-CoV-2 (PCR) Not detected, Coronavirus NL63 (PCR) Not detected, Human Metapneumovir PCR Not detected, Influenza A (H1) PCR Not detected, Influ A (H1N1/09) PCR Not detected, Influenza A (H3) PCR Not detected, Influenza Type A (PCR) Not detected, Influenza Type B (PCR) Not detected, M. pneumoniae (PCR) Not detected, Parainfluenza 1 (PCR) Not detected, Parainfluenza 2 (PCR) Not detected, Parainfluenza 3 (PCR) Not detected, Parainfluenza 4 (PCR) Not detected, RSV (PCR) Not detected, Entero/Rhino (PCR) Not detected 03/11/24 16:00: Lactate 2.3 H 03/11/24 19:58: POC Glucose 443 H* 03/12/24 05:23: POC Glucose 130 H 03/12/24 06:20: WBC 17.8 H D, RBC 3.74 L, Hgb 9.8 L D, Hct 31.1 L, MCV 83.2, MCH 26.2 L, MCHC 31.5 L, RDW 15.2, Plt Count 359, MPV 8.9, Neut % (Auto) 84.7 H, Lymph % (Auto) 9.1 L, [place] % (Auto) 5.6, Eos % (Auto) 0.1, Baso % (Auto) 0.6, Neut # (Auto) 15.1 H, Lymph # (Auto) 1.6, [place] # (Auto) 1.0, Eos # (Auto) 0.0, Baso # (Auto) 0.1, Total Counted 100, Neutrophils % (Manual) 87 H, Lymphocytes % (Manual) 8 L, Monocytes % (Manual) 5, Platelet Estimate Normal, RBC Morphology Normal, Sodium 138, Potassium 3.8, Chloride 98, Carbon Dioxide 36 H, Anion Gap 7.8, BUN 24 H D, Creatinine 0.70, Estimated Creat Clear 43, Estimated GFR 82, Est GFR ( Amer) 99, Glucose 121 H, Calcium 8.7, Magnesium 3.1 H D, Total Bilirubin 0.3, AST 37 H, ALT 23, Alkaline Phosphatase 94, Total Protein 6.3, Albumin 3.6, Globulin 2.7, Albumin/Globulin Ratio 1.3 I & O for Last 24 hours: Intake & Output 03/09/24 03/10/24 03/11/24 03/12/24 23:59 23:59 23:59 23:59 Intake Total 420 / 900 480 / 480 Output Total 600 / 600 Balance 420 / 900 -120 / -120 Weight 122 lb 9 oz 120 lb 3.383 oz Microbiology Reports for the Last 24 Hours: Microbiology 03/11/24 09:40 Blood Blood Culture - Preliminary NO GROWTH AFTER 24 HOURS 03/11/24 09:21 Blood Blood Culture - Preliminary NO GROWTH AFTER 24 HOURS Constitutional Constitutional: no acute distress and cooperative *Routine HEENT Exam Eye: Present PERRL *Routine Respiratory Exam Respiratory: Present CTA bilaterally; Absent accessory muscle use, wheezes or crackles *Routine Cardiovascular Exam Cardiovascular: Present RRR, Normal S1 and Normal S2; Absent murmur, gallop or rubs *Routine Abdominal Exam Abdominal: Present soft; Absent tenderness *Routine Extremities Exam Extremities: Present pulses intact; Absent cyanosis or edema *Routine Skin Exam Skin: Present intact; Absent erythema or wounds *Routine Neurological Exam Neurological: Present alert and oriented X3 Comments: Reduced mentation but alert and oriented Routine Psychiatric Exam Psychiatric: Present cooperative Meds Home Medications and Allergies Home Medications ?Medication ?Instructions ?Recorded ?Confirmed ?Type atorvastatin 80 mg tablet 80 mg PO HS 04/05/17 03/11/24 History magnesium oxide 400 mg PO BID 04/05/17 03/11/24 History aspirin 325 mg tablet 325 mg PO DAILY 09/14/17 03/11/24 History isosorbide mononitrate 30 mg 30 mg PO DAILY 03/26/18 03/11/24 History tablet,extended release 24 hr amlodipine 5 mg tablet 5 mg PO DAILY 05/20/19 03/11/24 History cholecalciferol (vitamin D3) 25 25 mcg PO HS 03/13/20 03/11/24 History mcg (1,000 unit) capsule memantine 10 mg tablet 10 mg PO BID 09/18/20 03/11/24 History donepezil 5 mg tablet 5 mg PO DAILY 05/21/21 03/11/24 History multivitamin (Daily Multi-Vitamin 1 tab PO DAILY 12/03/21 03/11/24 History tablet) escitalopram oxalate 10 mg tablet 10 mg PO DAILY 06/17/22 03/11/24 History furosemide 20 mg tablet 20 mg PO DAILY 06/17/22 03/11/24 History lisinopril 40 mg tablet 40 mg PO BID 01/21/23 03/11/24 History metformin 1,000 mg tablet 1,000 mg PO BID 01/22/23 03/11/24 History metoprolol succinate 100 mg 100 mg PO DAILY 01/22/23 03/11/24 History tablet,extended release 24 hr pantoprazole 40 mg tablet,delayed 40 mg PO DAILY 02/21/24 03/11/24 History release gabapentin 100 mg capsule 100 mg PO BID 03/11/24 03/11/24 History lorazepam 0.5 mg tablet 0.5 mg PO HS 03/11/24 03/11/24 History New Prescriptions to Start Prescriptions: Allergies Allergy/AdvReac Type Severity Reaction Status Date / Time Iodinated Contrast Media Allergy Mild Unknown Verified 02/21/24 13:19 allergy reaction naproxen Allergy Mild Unknown Verified 02/21/24 13:19 allergy reaction Assessment and Plan *Assessment and plan (1) Acute exacerbation of chronic obstructive pulmonary disease: Status: Acute Category: Medical Code(s): J44.1 - Chronic obstructive pulmonary disease with (acute) exacerbation (2) CHF exacerbation: Status: Acute Category: Medical Code(s): I50.9 - Heart failure, unspecified (3) CAD (coronary artery disease): Status: Acute Qualifiers: Associated angina: without angina Coronary Disease-Associated Artery/Lesion type: [place] artery [place] vs. transplanted heart: [place] heart Qualified Code(s): I25.10 - Atherosclerotic heart disease of [place] coronary artery without angina pectoris Category: Medical Code(s): I25.10 - Atherosclerotic heart disease of [place] coronary artery without angina pectoris (4) Vascular dementia: Status: Acute Category: Medical Code(s): F01.50 - Vascular dementia, unspecified severity, without behavioral disturbance, psychotic disturbance, mood disturbance, and anxiety Plan Acute on Chronic Hypoxic Resp Failure - ProBNP 1300, CXR shows no acute process, and pt has no peripheral edema on exam - I suspect this is primarily Pulm etiology - will check 2D ECHO - cont O2 supplementation, further plans per Pulm HFpEF - hx of EF 50% and Grade 1 DD in 2018 - will repeat ECHO here CAD - CCS = 0 - Cont ASA, Statin, BB Hx of SVT - SR here - cont BB Pt is CV stable. Defer to Pulm. Further plans pending ECHO results. ADDENDUM: - ECHO results: Conclusion Normal biventricular systolic function. No significant valvular stenosis or regurgitation. A small, anterior pericardial effusion is present. The largest pocket measures 0.6 cm in diastole. No echo indications of tamponade. *Pt CV stable She can f/u in our office 1-2 weeks post discharge. Please advise if any further CV concerns prior to DC.
--- NOTE | 2024-03-12 14:39 | SW/DCPLANNER ---
Addendum entered by Obdulia Smith 03/14/24 08:59: Mariah w/ [email or web address] stated that services will begin tomorrow for this patient. Addendum entered by Obdulia Smith 03/13/24 10:40: Patient/daughter are now agreeable to home health services and prefer to use [email or web address]. I will set up home health services at time of discharge. Patient may discharge home later today. Patient has also requested a bedside commode and extra portable O2 from [facility] (patient is already established). Original Note: I spoke w/ this patient and her sister regarding plans once medically stable for discharge. PT/OT evaluated patient and recommended SNF level of care. Per patient and daughter present in the room the patient generally alternates weeks living w/ family members which consist of three daughters in three different counties. Patient stated that she went to [place] last year for short term placement. Patient stated that she prefers to return back home w/ assistance from her family. Daughter at bedside agrees w/ patient returning home. Daughter also stated they are not interested in home health services at this time. I also explained that I would not be able to set up home health due to patient not residing in one county. I will continue to follow up w/ patient and family during hospital admission. Discharge date is unknown at this time.
[2024-03-12 15:24] LABS: Hemoglobin A1C 6.1 % (4.0-6.0)
--- NOTE | 2024-03-12 17:04 | CA_ITS ---
APPROVED REPORT EXAM: Comprehensive 2D, Doppler, and color-flow Echocardiogram [employer]: Lindsey Jurado CRT Ht: 5 ft 4 in Wt: 122lbs BSA: 1.59 BP: 135/51 mmHg Indications: Congestive Heart Failure, COPD, Diabetes, Hyperlipidemia, Hypertension/HDD, CABG 2D Dimensions LA Volume 18.50 mL LA Volume Index 11.40 mL/m2 (M/F) 16-34 M-Mode Dimensions RVDd 2.13 cm (0.9-2.6) LA Diam 2.80 cm (1.9-4.0) LVDd 4.37 cm (3.5-5.7) LVDs 3.03 cm (3.5-5.7) IVSd 1.32 cm (0.6-1.1) PWd 0.93 cm (0.6-1.1) EF (Teich) 58.40% FS 30.70% EDV (Teich) 86.30 mL TAPSE 0.80 (<1.7) ESV (Teich) 35.90 mL LV Diastology E Decel Time 150 (160-240 msec) E/A Ratio 0.74 MED A' 13.20 cm/s LAT A' 14.40 cm/s Aortic Valve AO Peak GR. 5.60 mmHg Mitral Valve MV E Max Javid. 141.0 (40-130 cm/s) MV A Velocity 191.0 (40-130 cm/s) E/A Ratio 0.74 MV PHT 44.0 ms Pulmonary Valve PV Peak Velocity 123.0 (50-150 cm/s) Tricuspid Valve TR P. Velocity 286.00 cm/s RAP Estimate 10.00 mmHg RVSP 42.70 mmHg Left Ventricle The left ventricle is normal size. The left ventricular systolic function is normal. The left ventricular ejection fraction is within the normal range. There is increased LV wall thickness. There is normal LV segmental wall motion. The left ventricular diastolic function is normal. LVEF is 60%. Right Ventricle The right ventricle is normal size. The right ventricular systolic function is normal. Atria The left atrium size is normal. The right atrium size is normal. There is no Doppler evidence of interatrial shunt. Aortic Valve Aortic valve is mildly thickened. There is no aortic valvular stenosis. No aortic regurgitation is present. Mitral Valve The mitral valve is normal in structure. No evidence of mitral valve stenosis. Trace mitral regurgitation. Tricuspid Valve The tricuspid valve leaflets are thin and pliable. Trace tricuspid regurgitation. There is insufficient TR jet to estimate RVSP. Pulmonic Valve The pulmonary valve is normal in structure. Trace pulmonic regurgitation. Great Vessels The aortic root is normal in size. The ascending aorta is not well-visualized. IVC is normal in size and collapses >50% with inspiration. Pericardium A small, anterior pericardial effusion is present. The largest pocket measures 0.6 cm in diastole. No echo indications of tamponade. Other Information Study Quality: Fair Conclusion Normal biventricular systolic function. No significant valvular stenosis or regurgitation. A small, anterior pericardial effusion is present. The largest pocket measures 0.6 cm in diastole. No echo indications of tamponade. Electronically signed by : Jacinda Melton MD 03/13/2024 10:22:48
--- NOTE | 2024-03-12 19:34 | EXP.ACUTE.PN ---
Subjective *Date: 03/12/24 *Time: 23:14 Interval history: Patient doing better today. Weaned from vent T2 3 L nasal cannula. This is essentially her baseline. Responding well to diuresis. Tolerating p.o. intake. Therapy evaluating, recommend rehab. Family wants to keep patient at home. They have consistent with the patient transitions between the 3 [facility] homes. Medical Exam Vital signs and Labs for Last 24 Hours: Vital Signs Temp Pulse Pulse Resp BP Pulse Ox O2 Del Method 03/12/24 18:43 72 03/12/24 18:43 69 03/12/24 18:43 94 L Nasal Cannula 03/12/24 18:07 Nasal Cannula 03/12/24 17:00 Nasal Cannula 03/12/24 16:00 98 F 76 22 103/52 L 95 Nasal Cannula 03/12/24 16:00 80 03/12/24 15:00 Nasal Cannula 03/12/24 13:00 Nasal Cannula 03/12/24 12:00 98.1 F 82 18 148/67 H 97 Nasal Cannula 03/12/24 12:00 90 03/12/24 11:07 73 18 03/12/24 11:04 73 03/12/24 11:04 72 03/12/24 11:00 Nasal Cannula 03/12/24 09:00 Nasal Cannula 03/12/24 08:00 Nasal Cannula 03/12/24 08:00 80 03/12/24 06:48 Venturi Mask 03/12/24 06:21 79 03/12/24 06:21 82 03/12/24 06:21 93 L Venturi Mask 03/12/24 05:00 Room Air 03/12/24 04:00 97.9 F 74 18 141/64 H 97 Venturi Mask 03/12/24 04:00 70 03/12/24 03:00 Room Air 03/12/24 01:00 Room Air 03/12/24 00:00 70 03/12/24 00:00 97.9 F 75 19 135/61 97 Venturi Mask 03/11/24 23:34 82 03/11/24 23:34 86 03/11/24 23:00 Room Air 03/11/24 21:00 Room Air 03/11/24 20:00 90 03/11/24 20:00 Venturi Mask 03/11/24 20:00 98.6 F 90 14 163/74 H 90 L Venturi Mask O2 Flow Rate FiO2 03/12/24 18:43 03/12/24 18:43 03/12/24 18:43 2.5 03/12/24 18:07 3 03/12/24 17:00 3 03/12/24 16:00 3 03/12/24 16:00 03/12/24 15:00 03/12/24 13:00 3 03/12/24 12:00 3 03/12/24 12:00 03/12/24 11:07 03/12/24 11:04 03/12/24 11:04 03/12/24 11:00 3 03/12/24 09:00 3 03/12/24 08:00 50 03/12/24 08:00 03/12/24 06:48 03/12/24 06:21 03/12/24 06:21 03/12/24 06:21 15 50 03/12/24 05:00 03/12/24 04:00 03/12/24 04:00 03/12/24 03:00 03/12/24 01:00 03/12/24 00:00 03/12/24 00:00 03/11/24 23:34 03/11/24 23:34 03/11/24 23:00 03/11/24 21:00 03/11/24 20:00 03/11/24 20:00 9 03/11/24 20:00 10 Intake and Output 03/12/24 03/12/24 03/12/24 07:59 15:59 23:59 Intake Total 480 / 1260 360 / 1260 420 / 1260 Output Total 600 / 600 Balance -120 / 660 360 / 660 420 / 660 Intake: Intake, Oral Amount 480 / 1260 360 / 1260 420 / 1260 Output: Output, Urine Amount 600 / 600 Other: Number of Unmeasured Voids 0 Number of Bowel Movements 1 Weight 54.527 kg Patient Weight 03/12/24 23:59 Weight 54.527 kg Laboratory Results - last 24 hr 03/11/24 19:58: POC Glucose 443 H* 03/12/24 05:23: POC Glucose 130 H 03/12/24 06:20: WBC 17.8 H D, RBC 3.74 L, Hgb 9.8 L D, Hct 31.1 L, MCV 83.2, MCH 26.2 L, MCHC 31.5 L, RDW 15.2, Plt Count 359, MPV 8.9, Neut % (Auto) 84.7 H, Lymph % (Auto) 9.1 L, [place] % (Auto) 5.6, Eos % (Auto) 0.1, Baso % (Auto) 0.6, Neut # (Auto) 15.1 H, Lymph # (Auto) 1.6, [place] # (Auto) 1.0, Eos # (Auto) 0.0, Baso # (Auto) 0.1, Total Counted 100, Neutrophils % (Manual) 87 H, Lymphocytes % (Manual) 8 L, Monocytes % (Manual) 5, Platelet Estimate Normal, RBC Morphology Normal, Sodium 138, Potassium 3.8, Chloride 98, Carbon Dioxide 36 H, Anion Gap 7.8, BUN 24 H D, Creatinine 0.70, Estimated Creat Clear 43, Estimated GFR 82, Est GFR ( Amer) 99, Glucose 121 H, Hemoglobin A1c 6.1 H, Calcium 8.7, Magnesium 3.1 H D, Total Bilirubin 0.3, AST 37 H, ALT 23, Alkaline Phosphatase 94, Total Protein 6.3, Albumin 3.6, Globulin 2.7, Albumin/Globulin Ratio 1.3 I & O for Labs for Last 24 Hours: Intake & Output 03/09/24 03/10/24 03/11/24 03/12/24 23:59 23:59 23:59 23:59 Intake Total 420 / 900 1260 / 1260 Output Total 600 / 600 Balance 420 / 900 660 / 660 Weight 55.593 kg 54.527 kg Microbiology Reports for the Last 24 Hours: Microbiology 03/11/24 09:40 Blood Blood Culture - Preliminary NO GROWTH AFTER 24 HOURS 03/11/24 09:21 Blood Blood Culture - Preliminary NO GROWTH AFTER 24 HOURS Constitutional: Present no acute distress, thin, chronically ill appearing and cooperative Head: Present atraumatic and normocephalic ENT: Present normal exam Respiratory: Present crackles (faint in base) and normal respiratory effort; Absent rhonchi or wheezes Cardiac: Present Reg Rate and Rhythm GI: Present normal bowel sounds; Absent tenderness Extremities: Present normal inspection and full ROM Skin: Present intact; Absent erythema Neuro: Present Grossly Intact and moves all extremities Comment:: residual deficits on right Assessment and Plan *Assessment and plan (1) Acute hypoxemic respiratory failure: Status: Acute Category: Medical Code(s): J96.01 - Acute respiratory failure with hypoxia (2) CHF exacerbation: Status: Acute Category: Medical Code(s): I50.9 - Heart failure, unspecified (3) Pneumonia: Status: Acute Category: Medical Code(s): J18.9 - Pneumonia, unspecified organism (4) Acute exacerbation of chronic obstructive pulmonary disease: Status: Acute Category: Medical Code(s): J44.1 - Chronic obstructive pulmonary disease with (acute) exacerbation (5) CAD (coronary artery disease): Status: Acute Qualifiers: Associated angina: without angina Coronary Disease-Associated Artery/Lesion type: [place] artery [place] vs. transplanted heart: [place] heart Qualified Code(s): I25.10 - Atherosclerotic heart disease of [place] coronary artery without angina pectoris Category: Medical Code(s): I25.10 - Atherosclerotic heart disease of [place] coronary artery without angina pectoris (6) Diabetes type 2, controlled: Status: Acute Category: Medical Code(s): E11.9 - Type 2 diabetes mellitus without complications (7) Diastolic CHF: Status: Acute Category: Medical Code(s): I50.30 - Unspecified diastolic (congestive) heart failure (8) Vascular dementia: Status: Acute Category: Medical Code(s): F01.50 - Vascular dementia, unspecified severity, without behavioral disturbance, psychotic disturbance, mood disturbance, and anxiety (9) History of CVA (cerebrovascular accident): Status: Chronic Category: Medical Code(s): Z86.73 - Personal history of transient ischemic attack (TIA), and cerebral infarction without residual deficits Plan 73-year-old female with history of CHF, CABG, CAD, CVA, diabetes, dementia. Presented with acute worsening shortness of breath. Workup in the ER concerning for CHF exacerbation and pneumonia. Discussed case with ER physician, request admission for diuresis and antibiotics. I agreed to admit for further management. PSI port score of 93, class IV risk. Due to age, female, CVA history, pleural effusion, CHF. Showing improvement. Responding to diuresis and antibiotics. Anticipate discharge in the next day or 2 pending home health versus rehab. Problems addressed as follows: Acute on chronic hypoxemic respiratory failure CHF exacerbation Pneumonia -Continue supplemental oxygen for goal sats greater 90%. Currently on 3 L. Wean as tolerated. Appears to be at baseline. - continue ceftriaxone 1 g daily and azithromycin 500 mg daily. Cultures pending -Continue Lasix 80 mg twice daily. Strict I's and O's -BNP elevated at 1360. Troponin negative at less than 0.01. -Kidney function still doing well with BUN 24, creatinine 0.7. Potassium 3.8, magnesium 3.1. White count increased to 17.8. Afebrile however clinically doing better. - Repeat CBC, CMP, magnesium ordered for the morning -White count elevated to 13. -Cardiology evaluated, recommend following up on pending echo. No other adjustments at this time. Symptoms most likely due to her respiratory infection rather than CHF. Diabetes: A1c 6.1. Glucose well controlled, 121 on morning labs, DC sliding scale insulin with fingersticks ACHS. Continue home metformin at 1000 mg twice daily Hypertension: Continue 5 mg daily. Metoprolol succinate 100 mg daily lisinopril 40 mg daily, isosorbide mononitrate grams daily History of CVA: continue Lipitor 80 mg daily for hyperlipidemia, continue aspirin 325 mg daily Depression: Continue Lexapro 10 mg daily Vascular dementia: Continue donepezil 5 g daily memantine 10 mg twice daily. DNR/DNI PLOV Cardiac diet
[2024-03-12] MEDS: APIXABAN 5MG TABLET 5 MG PO (20:43)
[2024-03-12] MEDS: ATORVASTATIN 40MG TABLET 80 MG PO (20:43)
[2024-03-12] MEDS: LORazepam 0.5MG TABLET 0.5 MG PO (20:45)
[2024-03-13] VITALS (8 sets, daily range): BP systolic 136–180; BP diastolic 63–79; PULSE 70–101; RESP 14–20; TEMP 36.5–37.2; O2SAT 88–97
[2024-03-13] MEDS: IPRATROPIUM/ALBUTEROL 3 ML NEB IH ×3 (00:06→11:35)
[2024-03-13 02:46] LABS: POC Glucose,Bedside 146 (70-110)
[2024-03-13 06:18] LABS: POC Glucose,Bedside 150 (70-110)
[2024-03-13 07:11] LABS: Albumin Level 3.3 g/dl (3.5-5.0); Chloride 97 mmol/L (98-107); Sodium 139 mmol/L (136-145)
[2024-03-13 07:12] LABS: Potassium 3.1 mmoL/L (3.5-5.1)
[2024-03-13 07:14] LABS: Alanine Aminotransferase 20 U/L (12-78); Albumin/Globulin Ratio 1.3 (1.1-1.8); Alkaline Phosphatase 105 U/L (38-126); Aspartate Amino Transferase 30 U/L (14-36); Bilirubin,Total 0.2 mg/dl (0.2-1.3); Blood Urea Nitrogen 21 mg/dl (7-17); Calcium 8.6 mg/dl (8.4-10.2); Creatinine Clearance Estimated 43 mL/min (50-200); Estimated Glomerular Filt Rate 70 ml/min (>60); GFR (African American) 85 ML/MIN (>60); Globulin 2.6 g/dL (1.3-3.2); Glucose 137 mg/dl (74-100); Magnesium 1.7 mg/dl (1.6-2.3); Total Protein,Serum 5.9 g/dl (6.3-8.2)
[2024-03-13 07:21] LABS: Anion Gap 7.1 mEq/L (5-15); Carbon Dioxide 38 mmol/L (22.0-30.0)
[2024-03-13 07:54] LABS: Basophils % 0.4 % (0.1-2.0); Eosinophils % 0.4 % (0.1-12.0); Hematocrit 28.2 % (37.0-47.0); Lymphocytes # 2.4 K/mm3 (0.7-4.5); Mean Corpuscular HGB Conc 30.1 g/dL (31.8-35.4); Mean Corpuscular Hemoglobin 25.4 pg (27.0-31.2); Mean Corpuscular Volume 84.4 fl (81-99); Neutrophils # 10.5 K/mm3 (1.8-7.8); Neutrophils % 74.6 % (37.0-80.0); Platelet Count 341 K/mm3 (142-424); Red Blood Count 3.34 M/mm3 (4.20-5.40); Red Cell Distribution Width 14.6 % (11.5-17.5); White Blood Count 14.1 K/mm3 (4.8-10.8)
[2024-03-13 07:55] LABS: Basophils # 0.1 K/mm3 (0-0.2); Eosinophils # 0.1 K/mm3 (0.0-0.4)
[2024-03-13 08:07] LABS: Hemoglobin 8.6 g/dL (12.2-16.2)
[2024-03-13] MEDS: MAGNESIUM OXIDE 400MG TABLET 400 MG PO (10:01)
[2024-03-13] MEDS: GABAPENTIN 100MG CAPSULE 100 MG PO (10:01)
[2024-03-13] MEDS: ISOSORBIDE MONO 30MG TAB.ER.24H 30 MG PO (10:01)
[2024-03-13] MEDS: FUROSEMIDE 40MG/4ML VIAL 40 MG IV (10:01)
[2024-03-13] MEDS: PANTOPRAZOLE 40MG TABLET 40 MG PO (10:01)
[2024-03-13] MEDS: CITALOPRAM 20MG TABLET 20 MG PO (10:01)
[2024-03-13] MEDS: LISINOPRIL 20MG TABLET 40 MG PO (10:02)
[2024-03-13] MEDS: MEMANTINE 10MG TABLET 10 MG PO (10:02)
[2024-03-13] MEDS: AZITHROMYCIN 250MG TABLET 500 MG PO (10:02)
[2024-03-13] MEDS: METFORMIN 500MG TABLET 1000 MG PO (10:03)
[2024-03-13] MEDS: DONEPEZIL 5MG TAB 5 MG PO (10:03)
[2024-03-13] MEDS: AMLODIPINE 5MG TABLET 5 MG PO (10:03)
[2024-03-13] MEDS: METOPROLOL SUCCINATE XL 100MG TABLET 100 MG PO (10:03)
[2024-03-13] MEDS: CEFTRIAXONE SODIUM 1 GM in 0.9 % SODIUM CHLORIDE 50 ML IV (10:03)
[2024-03-13] MEDS: humaLOG 100 UNITS/ML 10ML VIAL (SSI) SUBCUT (11:25)
[2024-03-13 11:38] LABS: POC Glucose,Bedside 281 (70-110)
--- NOTE | 2024-03-13 12:06 | CARE MANAGER ---
Patient requires the use of a walker to ambulate safely, cane would not provide enough stability.
--- NOTE | 2024-03-13 12:32 | EXP.DC.SUM ---
General Admission date:: 03/11/24 Discharge date: 03/13/24 HPI HPI HPI: Ms. Stone is a 73-year-old female history of CVA with residual right sided deficits, CABG, CHF, who presented with acute hypoxia earlier today. Wears oxygen of 2 to 3 L at baseline. This morning had significantly low oxygen when evaluated by her daughters. Seemed confused and does not herself. Heart rate was up. They brought her into the ER for evaluation. On arrival to the ER, patient necessitating on rebreather there for saturations in the mid 80s. Fluting imaging and labs showed concern for effusion versus pneumonia on chest x-ray, elevated BNP, kidney function at baseline. White count marginally elevated at 13. Given increased oxygen requirement and abnormalities, medicine consulted for admission and further management of CHF and pneumonia On arrival to the floor, patient appears in no acute distress. Satting 95-100 on nonrebreather. Weaned to Ventimask during rounds. Pleasant on exam. Family at bedside helps supplement history. Hospital Course Hospital Course Hospital Course: 73-year-old female with history of CHF, CABG, CAD, CVA, diabetes, dementia. Presented with acute worsening shortness of breath. Workup in the ER concerning for CHF exacerbation and pneumonia. Discussed case with ER physician, request admission for diuresis and antibiotics. I agreed to admit for further management. PSI port score of 93, class IV risk. Due to age, female, CVA history, pleural effusion, CHF. Patient showed improvement during admission. Transition to oral antibiotics to complete course. Evaluated by therapy. Stable to discharge home with home health in the care of her daughter. Problems addressed as follows: Acute on chronic hypoxemic respiratory failure CHF exacerbation Pneumonia -On presentation had increased oxygen requirement from baseline. Able to wean after diuresis initiating antibiotics to patient's baseline 3 L. Initially treated with ceftriaxone and azithromycin. Weaned to cefdinir and azithromycin to complete 5 days of antibiotics. Evaluated by therapy, patient and family not interested in placement. Will discharge home with home health. Transition to Lasix 20 mg daily at discharge. Responded well to IV Lasix during admission. Kidney function remained at baseline with BUN 21, creatinine 0.8. White count improving. Noted to have some anemia on day of discharge. Remained stable with no active signs of bleeding. Suspect this is a measurement error as new analyzer was installed during patient's stay that correlated with change in value. Would benefit from repeat labs in 1 to 2 weeks to monitor for stability of kidney function and hemoglobin. Cardiology evaluated, Echo obtained during admission showing normal BiV systolic function. No indications of tamponade though did have small 0.6 cm pericardial effusion pocket. No other adjustments at this time. Symptoms most likely due to her respiratory infection rather than CHF. Diabetes: A1c 6.1. Glucose well controlled during admission. Continue home metformin at discharge Hypertension: Continue amlodipine 5 mg daily. Metoprolol succinate 100 mg daily lisinopril 40 mg daily, isosorbide mononitrate 30 mg daily History of CVA: continue Lipitor 80 mg daily for hyperlipidemia, continue aspirin 325 mg daily Depression: Continue Lexapro 10 mg daily Vascular dementia: Continue donepezil 5 g daily memantine 10 mg twice daily. Total time spent on discharge 32 minutes in counseling, documentation, chart review, and direct care with patient. Exam Data for Last 24 hours Vital signs and Labs for Last 24 Hours: Temp Pulse Resp BP Pulse Ox O2 Del Method O2 Flow Rate 97.9 F 73 18 141/64 H 93 L Nasal Cannula 3 03/12/24 04:00 03/12/24 11:07 03/12/24 11:07 03/12/24 04:00 03/12/24 06:21 03/12/24 09:00 03/12/24 09:00 FiO2 50 03/12/24 08:00 Laboratory Results - last 24 hr 03/11/24 09:21: Procalcitonin 0.071 03/11/24 13:40: Lactate 2.3 H 03/11/24 14:45: Chlamy pneumoniae PCR Not detected, Adenovirus (PCR) Not detected, B. pertussis DNA (PCR) Not detected, Coronavirus OC43 (PCR) Not detected, Coronavirus HKU1 (PCR) Not detected, Coronavirus 229E (PCR) Not detected, SARS-CoV-2 (PCR) Not detected, Coronavirus NL63 (PCR) Not detected, Human Metapneumovir PCR Not detected, Influenza A (H1) PCR Not detected, Influ A (H1N1/09) PCR Not detected, Influenza A (H3) PCR Not detected, Influenza Type A (PCR) Not detected, Influenza Type B (PCR) Not detected, M. pneumoniae (PCR) Not detected, Parainfluenza 1 (PCR) Not detected, Parainfluenza 2 (PCR) Not detected, Parainfluenza 3 (PCR) Not detected, Parainfluenza 4 (PCR) Not detected, RSV (PCR) Not detected, Entero/Rhino (PCR) Not detected 03/11/24 16:00: Lactate 2.3 H 03/11/24 19:58: POC Glucose 443 H* 03/12/24 05:23: POC Glucose 130 H 03/12/24 06:20: WBC 17.8 H D, RBC 3.74 L, Hgb 9.8 L D, Hct 31.1 L, MCV 83.2, MCH 26.2 L, MCHC 31.5 L, RDW 15.2, Plt Count 359, MPV 8.9, Neut % (Auto) 84.7 H, Lymph % (Auto) 9.1 L, [place] % (Auto) 5.6, Eos % (Auto) 0.1, Baso % (Auto) 0.6, Neut # (Auto) 15.1 H, Lymph # (Auto) 1.6, [place] # (Auto) 1.0, Eos # (Auto) 0.0, Baso # (Auto) 0.1, Total Counted 100, Neutrophils % (Manual) 87 H, Lymphocytes % (Manual) 8 L, Monocytes % (Manual) 5, Platelet Estimate Normal, RBC Morphology Normal, Sodium 138, Potassium 3.8, Chloride 98, Carbon Dioxide 36 H, Anion Gap 7.8, BUN 24 H D, Creatinine 0.70, Estimated Creat Clear 43, Estimated GFR 82, Est GFR ( Amer) 99, Glucose 121 H, Calcium 8.7, Magnesium 3.1 H D, Total Bilirubin 0.3, AST 37 H, ALT 23, Alkaline Phosphatase 94, Total Protein 6.3, Albumin 3.6, Globulin 2.7, Albumin/Globulin Ratio 1.3 I & O for Last 24 hours: Intake & Output 03/09/24 03/10/24 03/11/24 03/12/24 23:59 23:59 23:59 23:59 Intake Total 420 / 900 480 / 480 Output Total 600 / 600 Balance 420 / 900 -120 / -120 Weight 55.593 kg 54.527 kg Microbiology Reports for the Last 24 Hours: Microbiology 03/11/24 09:40 Blood Blood Culture - Preliminary NO GROWTH AFTER 24 HOURS 03/11/24 09:21 Blood Blood Culture - Preliminary NO GROWTH AFTER 24 HOURS Constitutional Constitutional: no acute distress, average body habitus, chronically ill appearing and cooperative *Routine HEENT Exam Head: Present normocephalic and atraumatic ENT: Present mucous membranes moist *Routine Neck Exam Neck: Present supple and full ROM; Absent JVD, carotid bruit or lymphadenopathy *Routine Respiratory Exam Respiratory: Present CTA bilaterally, normal respiratory effort, able to speak in complete sentences and symmetric chest movement; Absent rhonchi, wheezes or crackles *Routine Cardiovascular Exam Cardiovascular: Present Normal S1, Normal S2 and tachycardia; Absent murmur or gallop *Routine Abdominal Exam Abdominal: Present soft and normoactive bowel sounds; Absent tenderness, distended or organomegaly *Routine Rectal Exam Patient deferred: visual exam *Routine Exam Patient deferred: external exam *Routine Extremities Exam Extremities: Present full ROM, pulses intact and normal capillary refill; Absent cyanosis, clubbing or edema *Routine Skin Exam Skin: Present intact and warm; Absent erythema *Routine Neurological Exam Neurological: Present alert, oriented X3 and CN II-XII intact Routine Psychiatric Exam Psychiatric: Present normal affect Results Data Completed and Pending Labs on day of discharge: Labs from last 24 hours 03/12/24 03/12/24 03/11/24 06:20 05:23 19:58 WBC 17.8 H D RBC 3.74 L Hgb 9.8 L D Hct 31.1 L MCV 83.2 MCH 26.2 L MCHC 31.5 L RDW 15.2 Plt Count 359 MPV 8.9 Neut % (Auto) 84.7 H Lymph % (Auto) 9.1 L [place] % (Auto) 5.6 Eos % (Auto) 0.1 Baso % (Auto) 0.6 Neut # (Auto) 15.1 H Lymph # (Auto) 1.6 [place] # (Auto) 1.0 Eos # (Auto) 0.0 Baso # (Auto) 0.1 Total Counted 100 Neutrophils % (Manual) 87 H Lymphocytes % (Manual) 8 L Monocytes % (Manual) 5 Platelet Estimate Normal RBC Morphology Normal Sodium 138 Potassium 3.8 Chloride 98 Carbon Dioxide 36 H Anion Gap 7.8 BUN 24 H D Creatinine 0.70 Estimated Creat Clear 43 Estimated GFR 82 Est GFR ( Amer) 99 Glucose 121 H POC Glucose 130 H 443 H* Lactate Calcium 8.7 Magnesium 3.1 H D Total Bilirubin 0.3 AST 37 H ALT 23 Alkaline Phosphatase 94 Total Protein 6.3 Albumin 3.6 Globulin 2.7 Albumin/Globulin Ratio 1.3 Procalcitonin Chlamy pneumoniae PCR Adenovirus (PCR) B. pertussis DNA (PCR) Coronavirus OC43 (PCR) Coronavirus HKU1 (PCR) Coronavirus 229E (PCR) SARS-CoV-2 (PCR) Coronavirus NL63 (PCR) Human Metapneumovir PCR Influenza A (H1) PCR Influ A (H1N1) PCR Influenza A (H3) PCR Influenza Type A (PCR) Influenza Type B (PCR) M. pneumoniae (PCR) Parainfluenza 1 (PCR) Parainfluenza 2 (PCR) Parainfluenza 3 (PCR) Parainfluenza 4 (PCR) RSV (PCR) Entero/Rhino (PCR) 03/11/24 03/11/24 03/11/24 16:00 14:45 13:40 WBC RBC Hgb Hct MCV MCH MCHC RDW Plt Count MPV Neut % (Auto) Lymph % (Auto) [place] % (Auto) Eos % (Auto) Baso % (Auto) Neut # (Auto) Lymph # (Auto) [place] # (Auto) Eos # (Auto) Baso # (Auto) Total Counted Neutrophils % (Manual) Lymphocytes % (Manual) Monocytes % (Manual) Platelet Estimate RBC Morphology Sodium Potassium Chloride Carbon Dioxide Anion Gap BUN Creatinine Estimated Creat Clear Estimated GFR Est GFR ( Amer) Glucose POC Glucose Lactate 2.3 H 2.3 H Calcium Magnesium Total Bilirubin AST ALT Alkaline Phosphatase Total Protein Albumin Globulin Albumin/Globulin Ratio Procalcitonin Chlamy pneumoniae PCR Not detected Adenovirus (PCR) Not detected B. pertussis DNA (PCR) Not detected Coronavirus OC43 (PCR) Not detected Coronavirus HKU1 (PCR) Not detected Coronavirus 229E (PCR) Not detected SARS-CoV-2 (PCR) Not detected Coronavirus NL63 (PCR) Not detected Human Metapneumovir PCR Not detected Influenza A (H1) PCR Not detected Influ A (H1N1) PCR Not detected Influenza A (H3) PCR Not detected Influenza Type A (PCR) Not detected Influenza Type B (PCR) Not detected M. pneumoniae (PCR) Not detected Parainfluenza 1 (PCR) Not detected Parainfluenza 2 (PCR) Not detected Parainfluenza 3 (PCR) Not detected Parainfluenza 4 (PCR) Not detected RSV (PCR) Not detected Entero/Rhino (PCR) Not detected 03/11/24 09:21 WBC RBC Hgb Hct MCV MCH MCHC RDW Plt Count MPV Neut % (Auto) Lymph % (Auto) [place] % (Auto) Eos % (Auto) Baso % (Auto) Neut # (Auto) Lymph # (Auto) [place] # (Auto) Eos # (Auto) Baso # (Auto) Total Counted Neutrophils % (Manual) Lymphocytes % (Manual) Monocytes % (Manual) Platelet Estimate RBC Morphology Sodium Potassium Chloride Carbon Dioxide Anion Gap BUN Creatinine Estimated Creat Clear Estimated GFR Est GFR ( Amer) Glucose POC Glucose Lactate Calcium Magnesium Total Bilirubin AST ALT Alkaline Phosphatase Total Protein Albumin Globulin Albumin/Globulin Ratio Procalcitonin 0.071 Chlamy pneumoniae PCR Adenovirus (PCR) B. pertussis DNA (PCR) Coronavirus OC43 (PCR) Coronavirus HKU1 (PCR) Coronavirus 229E (PCR) SARS-CoV-2 (PCR) Coronavirus NL63 (PCR) Human Metapneumovir PCR Influenza A (H1) PCR Influ A (H1N1/) PCR Influenza A (H3) PCR Influenza Type A (PCR) Influenza Type B (PCR) M. pneumoniae (PCR) Parainfluenza 1 (PCR) Parainfluenza 2 (PCR) Parainfluenza 3 (PCR) Parainfluenza 4 (PCR) RSV (PCR) Entero/Rhino (PCR) Preliminary micro results at discharge 03/11/24 09:40 Blood Culture - Preliminary Blood NO GROWTH AFTER 24 HOURS 03/11/24 09:21 Blood Culture - Preliminary Blood NO GROWTH AFTER 24 HOURS DS: Diagnosis Discharge Diagnosis (1) Acute hypoxemic respiratory failure: Status: Acute Code(s): J96.01 - Acute respiratory failure with hypoxia (2) CHF exacerbation: Status: Acute Code(s): I50.9 - Heart failure, unspecified (3) Pneumonia: Status: Acute Code(s): J18.9 - Pneumonia, unspecified organism (4) Acute exacerbation of chronic obstructive pulmonary disease: Status: Acute Code(s): J44.1 - Chronic obstructive pulmonary disease with (acute) exacerbation (5) CAD (coronary artery disease): Status: Acute Code(s): I25.10 - 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 Qualifiers: Associated angina: without angina Coronary Disease-Associated Artery/Lesion type: [place] artery [place] vs. transplanted heart: [place] heart Qualified Code(s): I25.10 - 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 (6) Diabetes type 2, controlled: Status: Acute Code(s): E11.9 - Type 2 diabetes mellitus without complications (7) Diastolic CHF: Status: Acute Code(s): I50.30 - Unspecified diastolic (congestive) heart failure (8) Vascular dementia: Status: Acute Code(s): F01.50 - Vascular dementia, unspecified severity, without behavioral disturbance, psychotic disturbance, mood disturbance, and anxiety (9) History of CVA (cerebrovascular accident): Status: Chronic Code(s): Z86.73 - Personal history of transient ischemic attack (TIA), and cerebral infarction without residual deficits Meds Home Medications and Allergies Home Medications ?Medication ?Instructions ?Recorded ?Confirmed ?Type atorvastatin 80 mg tablet 80 mg PO HS 04/05/17 03/11/24 History magnesium oxide 400 mg PO BID 04/05/17 03/11/24 History aspirin 325 mg tablet 325 mg PO DAILY 09/14/17 03/11/24 History isosorbide mononitrate 30 mg 30 mg PO DAILY 03/26/18 03/11/24 History tablet,extended release 24 hr amlodipine 5 mg tablet 5 mg PO DAILY 05/20/19 03/11/24 History cholecalciferol (vitamin D3) 25 25 mcg PO HS 03/13/20 03/11/24 History mcg (1,000 unit) capsule memantine 10 mg tablet 10 mg PO BID 09/18/20 03/11/24 History donepezil 5 mg tablet 5 mg PO DAILY 05/21/21 03/11/24 History multivitamin (Daily Multi-Vitamin 1 tab PO DAILY 12/03/21 03/11/24 History tablet) escitalopram oxalate 10 mg tablet 10 mg PO DAILY 06/17/22 03/11/24 History lisinopril 40 mg tablet 40 mg PO BID 01/21/23 03/11/24 History metformin 1,000 mg tablet 1,000 mg PO BID 01/22/23 03/11/24 History metoprolol succinate 100 mg 100 mg PO DAILY 01/22/23 03/11/24 History tablet,extended release 24 hr pantoprazole 40 mg tablet,delayed 40 mg PO DAILY 02/21/24 03/11/24 History release gabapentin 100 mg capsule 100 mg PO BID 03/11/24 03/11/24 History lorazepam 0.5 mg tablet 0.5 mg PO HS 03/11/24 03/11/24 History azithromycin 250 mg tablet 500 mg (2 x 250 mg) PO DAILY 2 03/13/24 Rx days #4 tabs cefdinir 300 mg capsule 300 mg PO BID 2 days #4 caps 03/13/24 Rx furosemide 20 mg tablet 20 mg PO DAILY 30 days #0 tabs 03/13/24 03/11/24 Rx New Prescriptions to Start Prescriptions: Steven Pham cefdinir Steven Dao Allergies Allergy/AdvReac Type Severity Reaction Status Date / Time Iodinated Contrast Media Allergy Mild Unknown Verified 02/21/24 13:19 allergy reaction naproxen Allergy Mild Unknown Verified 02/21/24 13:19 allergy reaction Discharge Plan Disposition Patient Disposition: Home, Self-Care Condition: Fair Discharge Order Discharge Orders: Discharge Order (Routine); Ordered 03/13/24 Ordered By: Steven Dao Follow up Plan Follow up with: Roe Gleason MD [Primary Care Provider] - 03/21/24 9:00 am Karlos Melton MD [Staff Physician] - 04/03/24 1:15 pm Prescriptions/Medication Reconciliation: New azithromycin 250 mg Tablet 500 mg PO DAILY 2 Days Qty: 4 0RF cefdinir 300 mg capsule 300 mg PO BID 2 Days Qty: 4 0RF Continued atorvastatin 80 mg tablet 80 mg PO HS magnesium oxide 400 mg capsule 400 mg PO BID aspirin 325 mg tablet 325 mg PO DAILY multivitamin [Daily Multi-Vitamin] Tablet 1 tab PO DAILY escitalopram oxalate 10 mg tablet 10 mg PO DAILY Patient Comments: TAKE 1 TABLET BY MOUTH ONCE DAILY. pantoprazole 40 mg tablet,delayed release (DR/EC) 40 mg PO DAILY Patient Comments: ONE (1) TAB(S) ORALLY ONCE A DAY 90 DAYS cholecalciferol (vitamin D3) 25 mcg (1,000 unit) capsule 25 mcg PO HS memantine 10 mg tablet 10 mg PO BID Patient Comments: TAKE 1 TABLET BY MOUTH TWICE DAILY. donepezil 5 mg tablet 5 mg PO DAILY isosorbide mononitrate 30 MG tablet 30 mg PO DAILY lisinopril 40 mg tablet 40 mg PO BID metformin 1,000 mg tablet 1,000 mg PO BID Patient Comments: TAKE 1 TABLET BY MOUTH TWICE DAILY metoprolol succinate 100 mg tablet extended release 24 hr 100 mg PO DAILY Patient Comments: TAKE 1 TABLET BY MOUTH ONCE DAILY gabapentin 100 mg capsule 100 mg PO BID Patient Comments: TAKE 1 CAPSULE BY MOUTH TWICE DAILY lorazepam 0.5 mg tablet 0.5 mg PO HS furosemide 20 mg tablet 20 mg PO DAILY 30 Days Qty: 0 0RF Patient Comments: TAKE 1 TABLET BY MOUTH DAILY. amlodipine 5 MG tablet 5 mg PO DAILY Problem Reconciliation Problems Reviewed?: Yes Patient Discharge Instructions ACTIVITY: Continue current activity and Ambulate as tolerated DIET: continue same diet and advance to your usual diet Patient Instructions: Congestive Heart Failure (Alternative Therapy), Pneumonia--Adult, Heart Failure, Lifestyle Habits May Lower Lifetime Risk of Heart Failure in Men Print Language: [place]ian Providers Primary Care Provider: Roe Gleason Admit Provider: Steven Dao Attending Provider: Steven Dao
[2024-03-13] MEDS: POTASSIUM CHLORIDE 20MEQ TAB 40 MEQ PO (12:55)
[2024-03-13] MEDS: MAGNESIUM SULFATE IN WATER 2 GM/50 ML PIGGYBACK IV ×2 (12:55→13:53)
--- NOTE | 2024-03-13 12:58 | CARE MANAGER ---
Patient would benefit from a bedside commode due to decreased ambulation ability and distance to bathroom.
[2024-03-13 13:27] LABS: Hematocrit 27.9 % (37.0-47.0); Hemoglobin 8.4 g/dL (12.2-16.2)
--- NOTE | 2024-03-14 09:54 | SW/DCPLANNER ---
Phoned patient. Spoke with patient's daughter on the phone, she stated that her mother has been up and down this morning and she finally got her settled down and is sleping. Patient's daughter stated that they are aware of her upcoming appointments and was able to get her prescription picked up. Patient's daughter stated that she has no concerns or questions at this time. Boaz Ferreira
== END 2024-03-13 17:08 | disposition home or self-care (01) | DRG 291 ==
LOC: ER 11:22 → 2ND 11:58
PROVIDERS: Admitting Provider Internal Medicine Adolescent Medicine; Emergency Provider Emergency Medicine; PCP Internal Medicine Adolescent Medicine; Visit Provider Internal Medicine Adolescent Medicine
DX: I11.0 Hypertensive heart disease with heart failure (principal); I50.33 Acute on chronic diastolic (congestive) heart failure; J96.21 Acute and chronic respiratory failure with hypoxia; J18.9 Pneumonia, unspecified organism; F01.50 Vascular dementia, unspecified severity, without behavioral disturbance, psychotic disturbance, mood disturbance, and anxiety; Z86.73 Personal history of transient ischemic attack (TIA), and cerebral infarction without residual deficits; E11.9 Type 2 diabetes mellitus without complications; F32.A Depression, unspecified
CPT/HCPCS: 36415; 71045; 80053; 82803; 82962; 83036; 83605; 83735; 83880; 84145; 84484; 85007; 85014; 85018; 85025; 85610; 85730; 87040; 87633; 93005; 93270; 93306; 94640; 94761; 97163; 97166; 97530; 99291; J0456; J0696; J1100; J1650; J1940; J3475; J7050; J7620

== ENCOUNTER 2024-06-27 04:26 | Inpatient (IN) | payer MEDICARE, MEDICAID, SELFPAY ==
[2024-06-27] VITALS (29 sets, daily range): BP systolic 113–191; BP diastolic 48–92; PULSE 68–183; RESP 14–30; TEMP 36.4–36.8; O2SAT 81–94; BMI 24.4; BMI 25.7
[2024-06-27] MEDS: ADENOSINE 6MG/2ML VIAL 6 MG IV (04:35)
--- NOTE | 2024-06-27 04:35 | ECG_ITS ---
APPROVED REPORT Exam: Resting ECG HR:184 bpm ECG Measurements Heart Rate 184 AXES QRSd 146 QRS -73 QT 261 T 33 QTc 357 Conclusion Sinus tachycardia versus SVT ST depressions. Diffusely with no reciprocal elevation Electronically signed by : SUMMER ALBRIGHT, 06/27/2024 12:51:39
[2024-06-27] MEDS: METOPROLOL TARTRATE 5MG/5ML VIAL 5 MG IV ×3 (04:45→05:00)
--- NOTE | 2024-06-27 04:45 | PC.NURSE ---
Pt placed on simple O2 mask at 10lpm. Sao2 90%
[2024-06-27] MEDS: ADENOSINE 6MG/2ML VIAL 12 MG IV (04:55)
--- NOTE | 2024-06-27 04:59 | [facility].EDGENADL ---
Discharge Plan Disposition Patient Disposition: Admitted Chief Complaint: Arrhythmia/Palpitations Prescriptions Prescriptions: No Action atorvastatin 80 mg tablet 80 mg PO HS magnesium oxide 400 mg capsule 400 mg PO BID aspirin 325 mg tablet 325 mg PO DAILY multivitamin [Daily Multi-Vitamin] Tablet 1 tab PO DAILY escitalopram oxalate 10 mg tablet 10 mg PO DAILY Patient Comments: TAKE 1 TABLET BY MOUTH ONCE DAILY. pantoprazole 40 mg tablet,delayed release (DR/EC) 40 mg PO DAILY Patient Comments: ONE (1) TAB(S) ORALLY ONCE A DAY 90 DAYS cholecalciferol (vitamin D3) 25 mcg (1,000 unit) capsule 25 mcg PO HS memantine 10 mg tablet 10 mg PO BID Patient Comments: TAKE 1 TABLET BY MOUTH TWICE DAILY. donepezil 5 mg tablet 5 mg PO DAILY isosorbide mononitrate 30 MG tablet 30 mg PO DAILY lisinopril 40 mg tablet 40 mg PO BID metformin 1,000 mg tablet 1,000 mg PO BID Patient Comments: TAKE 1 TABLET BY MOUTH TWICE DAILY metoprolol succinate 100 mg tablet extended release 24 hr 100 mg PO DAILY Patient Comments: TAKE 1 TABLET BY MOUTH ONCE DAILY gabapentin 100 mg capsule 100 mg PO BID Patient Comments: TAKE 1 CAPSULE BY MOUTH TWICE DAILY lorazepam 0.5 mg tablet 0.5 mg PO HS furosemide 20 mg tablet 20 mg PO DAILY 30 Days Qty: 0 0RF Patient Comments: TAKE 1 TABLET BY MOUTH DAILY. amlodipine 5 MG tablet 5 mg PO DAILY Referrals Follow up/Referrals: Roe Gleason MD [Primary Care Provider] - See instructions Clinical Impressions Clinical Impression: SVT (supraventricular tachycardia), Leukocytosis, Respiratory failure with hypoxia, Sepsis, Left lower lobe pneumonia Print Language Print Language: Maori Discharge ED Provider: Donnie Moreno General Adult HPI <Bruno Kraft MD - Last Filed: 06/27/24 07:25> General Chief complaint: Arrhythmia/Palpitations Stated complaint: high HR, low oxygen, clammy Time Seen by Provider: 06/27/24 04:35 Mode of Arrival: Wheelchair Source of Information: Relative Description of Symptoms (Recalled from ER Triage Doc. by RN): Pt awoke and was diaphoretic with heart racing and O2 level low History of Present Illness HPI narrative: 73-year-old female with history of coronary artery disease, dementia, COPD, diabetes, CHF, SVT presents for SVT. History largely obtained from patient's family at bedside. She has intermittently gone into episodes of SVT in the past that has responded to medications. She is on metoprolol daily and has not missed any doses. She has not had any chest pain or other significant symptoms. She is normally on 2 L nasal cannula with sats in the high 80s to low 90s. She was noted to be diaphoretic and uncomfortable appearing and they noted her heart rate was elevated. Related Data Home Medications ?Medication ?Instructions ?Recorded ?Confirmed atorvastatin 80 mg tablet 80 mg PO HS 04/05/17 04/24/24 magnesium oxide 400 mg PO BID 04/05/17 04/24/24 aspirin 325 mg tablet 325 mg PO DAILY 09/14/17 04/24/24 isosorbide mononitrate 30 mg 30 mg PO DAILY 03/26/18 04/24/24 tablet,extended release 24 hr amlodipine 5 mg tablet 5 mg PO DAILY 05/20/19 04/24/24 cholecalciferol (vitamin D3) 25 25 mcg PO HS 03/13/20 04/24/24 mcg (1,000 unit) capsule memantine 10 mg tablet 10 mg PO BID 09/18/20 04/24/24 donepezil 5 mg tablet 5 mg PO DAILY 05/21/21 04/24/24 multivitamin (Daily Multi-Vitamin 1 tab PO DAILY 12/03/21 04/24/24 tablet) escitalopram oxalate 10 mg tablet 10 mg PO DAILY 06/17/22 04/24/24 lisinopril 40 mg tablet 40 mg PO BID 01/21/23 04/24/24 metformin 1,000 mg tablet 1,000 mg PO BID 01/22/23 04/24/24 metoprolol succinate 100 mg 100 mg PO DAILY 01/22/23 04/24/24 tablet,extended release 24 hr pantoprazole 40 mg tablet,delayed 40 mg PO DAILY 02/21/24 04/24/24 release gabapentin 100 mg capsule 100 mg PO BID 03/11/24 04/24/24 lorazepam 0.5 mg tablet 0.5 mg PO HS 03/11/24 04/24/24 Previous Rx's ?Medication ?Instructions ?Recorded furosemide 20 mg tablet 20 mg PO DAILY 30 days #0 tabs 03/13/24 Allergies Allergy/AdvReac Type Severity Reaction Status Date / Time Iodinated Contrast Media Allergy Mild Unknown Verified 04/24/24 13:14 allergy reaction naproxen Allergy Mild Unknown Verified 04/24/24 13:14 allergy reaction PFSH <Bruno Kraft MD - Last Filed: 06/27/24 07:25> [facility] Disclaimer: The information contained in this section may have been updated after the patient was seen, as this information can be updated by other users. Medical History CAD (coronary artery disease) Cataract SVT (supraventricular tachycardia) COPD exacerbation COPD (chronic obstructive pulmonary disease) Respiratory failure with hypoxia History of CVA (cerebrovascular accident) Vomiting Weight loss Lumbar stenosis Thoracic compression fracture Cerebral atrophy Sepsis UTI (urinary tract infection) CAP (community acquired pneumonia) Carotid artery stenosis Tobacco dependence syndrome Diabetes mellitus Hyperlipidemia Hypertensive heart disease Coronary arteriosclerosis Surgical History History of coronary artery bypass graft S/P CABG x 3 Family History Other Diabetes Family history of hyperlipidemia Family history of hypertension Parkinsons Social History Smoking Status: Former smoker tobacco type: cigarettes packs per day: 1 alcohol intake: never counseling provided: none substance use type: denies use current occupational status: retired Travel in the last 8 weeks: Inside the [place] household members: family housing: house caffeine: Yes Have you lived/traveled outside US in past 30 days?: No Contact w/someone who lives/traveled outside US past 30 days?: No Exposure to someone with infectious disease in past 14 days?: No Do you have a fever (greater than 100.4 F or 38 C)?: No Have you tested positive for COVID-19: No Exposed to someone with COVID-19 in past 14 days?: No Do you have a sore throat?: No Do you have a cough?: No Do you have any weakness?: No Do you have any diarrhea?: No Are you experiencing any unusual bleeding?: No Do you have any muscle aches/pain?: No Do you have any abdominal pain?: No Are you experiencing loss of taste or smell?: No Other Medical History Have you received the Flu Vaccine for this season: No Have you received the Pneumonia Vaccine: Yes <Bruno Kraft MD - Last Filed: 06/27/24 07:25> ROS Obtained: Yes All systems reviewed & no additional complaints except as documented Physical Exam <Bruno Kraft MD - Last Filed: 06/27/24 07:25> General General appearance: alert Comment: Uncomfortable appearing Head Head exam: atraumatic and normocephalic Eye Eye exam: Present normal appearance, PERRL and EOMI ENT ENT exam: Present normal oropharynx and normal external ear exam Neck Neck exam: Present normal inspection and full ROM Chest Chest inspection: Present normal inspection and symmetric chest wall rise; Absent tenderness Respiratory Respiratory exam: Present normal lung sounds bilaterally; Absent respiratory distress Cardiovascular Cardiovascular exam: Present tachycardia Abdominal Exam Abdominal exam: Present soft; Absent distention, tenderness or guarding Extremities Exam Extremities exam: Present normal inspection; Absent edema or joint swelling Back Exam Back exam: Present normal inspection; Absent tenderness Neurological Exam Neurological exam: Present alert and other (Oriented to person and place); Absent motor sensory deficit Psychiatric Psychiatric exam: Present normal affect and normal mood Skin Skin exam: Present warm, dry and normal color Lymphatic Lymphatic Findings: no adenopathy Medical Decision Making <Bruno Kraft MD - Last Filed: 06/27/24 07:25> Medical Records Medical records reviewed: Yes I reviewed the patient's medical records. Screening: Per USPSTF and CDC recommendations, given the prevalence of disease in our region, it is our hospital?s policy to screen for HIV and viral Hepatitis for all patients aged 18 and over and those with ongoing risk factors. Jose Inquiry Pt receiving controlled substance: No Jose was queried for this patient: No Vital Signs: 06/27/24 04:48 06/27/24 04:57 06/27/24 05:00 Temperature 98.2 F Temperature Source Oral Pulse Rate 94 H 86 Pulse Rate [Right Brachial] 183 H Respiratory Rate 24 14 20 Blood Pressure 179/84 H 161/65 H Blood Pressure [Right Arm] 127/65 Blood Pressure Mean 115 98 Blood Pressure Mean [Right Arm] 85 Blood Pressure Source [Right Arm] Automatic Cuff Blood Pressure Position [Right Arm] Sitting 02 Sat by Pulse Oximetry 81 L 89 L 87 L Oxygen Delivery Method Nasal Cannula Nasal Cannula Nasal Cannula Oxygen Flow Rate (LPM) 2 3 3 06/27/24 05:03 06/27/24 05:05 06/27/24 05:11 Temperature Temperature Source Pulse Rate 78 80 81 Pulse Rate [Right Brachial] Respiratory Rate 28 H 25 H 17 Blood Pressure 123/53 L 138/51 L 128/59 L Blood Pressure [Right Arm] Blood Pressure Mean 98 92 84 Blood Pressure Mean [Right Arm] Blood Pressure Source [Right Arm] Blood Pressure Position [Right Arm] 02 Sat by Pulse Oximetry 88 L 90 L 91 L Oxygen Delivery Method Nasal Cannula Nasal Cannula Nasal Cannula Oxygen Flow Rate (LPM) 3 3 3 06/27/24 05:21 06/27/24 05:25 06/27/24 05:35 Temperature Temperature Source Pulse Rate 77 78 79 Pulse Rate [Right Brachial] Respiratory Rate 26 H 25 H 27 H Blood Pressure 132/48 L 113/55 L 130/51 L Blood Pressure [Right Arm] Blood Pressure Mean 76 77 77 Blood Pressure Mean [Right Arm] Blood Pressure Source [Right Arm] Blood Pressure Position [Right Arm] 02 Sat by Pulse Oximetry 93 L 86 L 88 L Oxygen Delivery Method Nasal Cannula Nasal Cannula Nasal Cannula Oxygen Flow Rate (LPM) 3 3 3 06/27/24 05:45 06/27/24 06:00 06/27/24 06:10 Temperature Temperature Source Pulse Rate 73 75 75 Pulse Rate [Right Brachial] Respiratory Rate 23 17 21 Blood Pressure 144/53 H 125/57 L 144/56 H Blood Pressure [Right Arm] Blood Pressure Mean 93 79 71 Blood Pressure Mean [Right Arm] Blood Pressure Source [Right Arm] Blood Pressure Position [Right Arm] 02 Sat by Pulse Oximetry 87 L 87 L 86 L Oxygen Delivery Method Nasal Cannula Nasal Cannula Oxygen Flow Rate (LPM) 3 3 3 06/27/24 06:30 06/27/24 06:45 06/27/24 07:00 Temperature Temperature Source Pulse Rate 75 75 72 Pulse Rate [Right Brachial] Respiratory Rate 24 23 19 Blood Pressure 154/58 H 164/60 H 173/54 H Blood Pressure [Right Arm] Blood Pressure Mean 86 92 Blood Pressure Mean [Right Arm] Blood Pressure Source [Right Arm] Blood Pressure Position [Right Arm] 02 Sat by Pulse Oximetry 89 L 91 L 91 L Oxygen Delivery Method Nasal Cannula Nasal Cannula Nasal Cannula Oxygen Flow Rate (LPM) 3 3 3 06/27/24 07:05 06/27/24 07:10 06/27/24 07:15 Temperature Temperature Source Pulse Rate 70 68 83 Pulse Rate [Right Brachial] Respiratory Rate 18 17 19 Blood Pressure 167/63 H 165/71 H 191/70 H Blood Pressure [Right Arm] Blood Pressure Mean Blood Pressure Mean [Right Arm] Blood Pressure Source [Right Arm] Blood Pressure Position [Right Arm] 02 Sat by Pulse Oximetry 92 L 92 L 90 L Oxygen Delivery Method Nasal Cannula Nasal Cannula Nasal Cannula Oxygen Flow Rate (LPM) 3 3 3 06/27/24 07:30 06/27/24 07:40 06/27/24 08:00 Temperature Temperature Source Pulse Rate 77 73 74 Pulse Rate [Right Brachial] Respiratory Rate 30 H 15 30 H Blood Pressure 179/65 H 161/61 H 187/68 H Blood Pressure [Right Arm] Blood Pressure Mean Blood Pressure Mean [Right Arm] Blood Pressure Source [Right Arm] Blood Pressure Position [Right Arm] 02 Sat by Pulse Oximetry 91 L 90 L 91 L Oxygen Delivery Method Nasal Cannula Nasal Cannula Nasal Cannula Oxygen Flow Rate (LPM) 3 3 3 Lab Data Lab results reviewed: Yes I reviewed the patient's lab results. Lab Results 06/27/24 04:43: WBC 28.6 H*, RBC 4.53, Hgb 11.3 L, Hct 38.0, MCV 83.9, MCH 24.9 L, MCHC 29.7 L, RDW 18.2 H, Plt Count 426 H, MPV 12.1 H, Neut % (Auto) 77.1, Lymph % (Auto) 15.5, [place] % (Auto) 5.2, Eos % (Auto) 0.9, Baso % (Auto) 0.6, Neut # (Auto) 22.1 H, Lymph # (Auto) 4.4, [place] # (Auto) 1.5 H, Eos # (Auto) 0.3, Baso # (Auto) 0.2, Total Counted 100, Neutrophils % (Manual) 71, Lymphocytes % (Manual) 23, Monocytes % (Manual) 6, Platelet Estimate Slight increase, Hypochromasia 1+, Anisocytosis 1+, Ovalocytes 1+, Sodium 138, Potassium 3.2 L, Chloride 93 L, Carbon Dioxide 28, Anion Gap 20.2 H, BUN 12, Creatinine 0.70, Estimated Creat Clear 45, Estimated GFR 82, Est GFR ( Amer) 99, Glucose 237 H, Calcium 9.3, Phosphorus 3.7, Magnesium 1.4 L, Total Bilirubin 0.4, AST 36, ALT 32, Alkaline Phosphatase 131 H, Troponin I < 0.01, Total Protein 6.4, Albumin 3.7, Globulin 2.7, Albumin/Globulin Ratio 1.4 06/27/24 06:58: Urine Color Yellow, Urine Appearance Clear, Urine pH 6.5, Ur Specific [place] 1.015, Urine Protein Trace, Urine Glucose (UA) Negative, Urine Ketones Trace, Urine Blood Negative, Urine Nitrate Negative, Urine Bilirubin Negative, Urine Urobilinogen 0.2, Ur Leukocyte Esterase Negative, Urine RBC None, Urine WBC Occasional, Ur Squamous Epith Cells 5-10, Urine Bacteria Trace 06/27/24 07:12: VBG pH 7.38, VBG pCO2 48.1, VBG pO2 46.0 H, VBG HCO3 27.8, VBG Total CO2 29.3 H, VBG O2 Saturation 77.7 H, VBG Base Excess 2.7 H, VBG Lactic Acid 3.4 H 06/27/24 07:30: Troponin I 0.06 H 06/27/24 04:43 06/27/24 04:43 Orders (Tests/Meds): ED MEDICATIONS Generic Name Dose Route Start Last Admin Trade Name Freq PRN Reason Stop Dose Admin Lactated Ringer's 1,370 mls @ 685 mls/hr 06/27/24 08:07 Lactated Ringer's 1000 Ml Bag 30 ml/kg infuse over 2 hr (1370 ml) 06/27/24 10:06 IV .Q2H ONE Cefepime HCl 2 gm/ Sodium 100 mls @ 200 mls/hr 06/27/24 08:17 Chloride IV 06/27/24 08:46 ONCE ONE Vancomycin HCl 1,000 mg/ 250 mls @ 125 mls/hr 06/27/24 08:30 Sodium Chloride IV 06/27/24 10:29 ONCE ONE Discontinued Medications Generic Name Dose Route Start Last Admin Trade Name Freq PRN Reason Stop Dose Admin Adenosine 6 mg 06/27/24 05:01 06/27/24 04:35 Adenosine 6mg/2ml Vial IV 06/27/24 05:02 6 mg ONCE ONE Administration Adenosine 12 mg 06/27/24 05:02 06/27/24 04:55 Adenosine 6mg/2ml Vial IV 06/27/24 05:03 12 mg ONCE ONE Administration Amlodipine Besylate 5 mg 06/27/24 07:03 06/27/24 07:36 Amlodipine 5mg Tablet PO 06/27/24 07:04 5 mg ONCE ONE Administration Magnesium Sulfate 2 gm in 50 mls @ 150 mls/hr 06/27/24 05:38 06/27/24 05:49 Magnesium Sulfate 2gm/50ml Premix IV 06/27/24 05:57 150 mls/hr ONCE ONE Administration Potassium Chloride/Water 100 mls @ 100 mls/hr 06/27/24 05:38 06/27/24 05:50 Potassium Chloride 10meq/100ml Ivpb IV 06/27/24 06:37 100 mls/hr ONCE ONE Administration Lisinopril 40 mg 06/27/24 07:03 06/27/24 07:35 Lisinopril 20mg Tablet PO 06/27/24 07:04 40 mg ONCE ONE Administration Metoprolol Succinate 100 mg 06/27/24 04:59 06/27/24 05:20 Metoprolol Succinate Xl 100mg Tablet PO 06/27/24 05:00 100 mg ONCE ONE Administration Metoprolol Tartrate 5 mg 06/27/24 05:02 06/27/24 04:45 Metoprolol Tartrate 5mg/5ml Vial IV 06/27/24 05:03 5 mg ONCE ONE Administration Metoprolol Tartrate 5 mg 06/27/24 05:02 06/27/24 04:52 Metoprolol Tartrate 5mg/5ml Vial IV 06/27/24 05:03 5 mg ONCE ONE Administration Metoprolol Tartrate 5 mg 06/27/24 05:03 06/27/24 05:00 Metoprolol Tartrate 5mg/5ml Vial IV 06/27/24 05:04 5 mg ONCE ONE Administration Miscellaneous 1 each 06/27/24 08:30 Vancomycin Consult Request NOTAPPLIC 07/27/24 08:29 [facility]SULT [facility] Potassium Chloride 40 meq 06/27/24 05:38 06/27/24 05:49 Potassium Chloride 20meq Tab PO 06/27/24 05:39 40 meq ONCE ONE Administration ORDERS Category Date Time Status CT chest wo con Stat Cat Scan 06/27/24 07:12 Taken CXR --portable [XR chest portable] Stat Exams 06/27/24 05:03 Completed CBC w/Auto Diff [Complete Blood Count Auto Diff] Stat Lab 06/27/24 04:43 Completed CMP [Comprehensive Metabolic Panel] Stat Lab 06/27/24 04:43 Completed Magnesium Stat Lab 06/27/24 04:43 Completed Phosphorous Stat Lab 06/27/24 04:43 Completed Troponin I Q3H Lab 06/27/24 04:43 Completed Troponin I Q3H Lab 06/27/24 07:30 Completed UA [Urinalysis and Microscopic] Stat Lab 06/27/24 06:58 Completed VBG [Venous Blood Gas] Stat RT 06/27/24 07:12 Completed EKG Request [ECG Request] Stat Y 06/27/24 05:58 Ordered ECG Data Tracing #1: I reviewed this ECG and interpreted as documented below: SVT, rate of 184, ST depressions noted ECG initial impression date: 06/27/24 ECG initial impression time: 04:33 Tracing #2: I reviewed this ECG and interpreted as documented below: Sinus rhythm with first-degree AV block, rate of 78, resolution of ST depressions that were previously noted ECG initial impression date: 06/27/24 ECG initial impression time: 06:01 HEART Score History (anamnesis): Slightly suspicious ECG: Significant ST-deviation Age: >65 years Risk factors: Atherosclerosis history Troponin: </= normal limit HEART Score: 6 Medical Decision Narrative: 73-year-old female with history of disease, diabetes, COPD on 2 L nasal cannula baseline, dementia, history of intermittent SVT presents with tachycardia and found to be in SVT. History was obtained via interactive discussion with patient, family, chart review. On arrival, patient is afebrile, tachycardic to the 180s, normotensive, a little uncomfortable appearing, requiring 4 L nasal cannula to maintain sats of 90. Full physical exam performed and significant for no significant lower extremity edema, clear lungs bilaterally Differential includes but is not limited to SVT, electrolyte derangement, medication noncompliance, ACS, PE, pneumonia. No abnormal lung sounds to suggest COPD exacerbation. Patient was given 6 of adenosine initially with very brief termination of SVT. Patient was then given 5 of IV metoprolol, again with brief resolution of SVT. Patient was given another 5 of IV metoprolol with heart rate improvement to the 160s. Patient was then given 12 of IV adenosine with sustained termination of SVT. Workup initiated including CBC CMP mag EKG chest x-ray troponin. On re-evaluation, patient reports she feels well. She is satting high 80s low 90s on 3 L nasal cannula. Laboratory workup independently interpreted by me and significant for mild hypomagnesemia and hypokalemia, negative initial troponin. Patient does have a leukocytosis with white count of 28. No obvious infectious symptoms noted or reported by family, will assess with urinalysis. Imaging independently interpreted by me and significant for possible left sided opacity. See radiology read for full review of final results. At this time care handed off to oncoming physician pending urinalysis and CT Noncon of the chest to assess for pneumonia. <Donnie Moreno MD - Last Filed: 06/27/24 08:26> Vital Signs: 06/27/24 04:48 06/27/24 04:57 06/27/24 05:00 Temperature 98.2 F Temperature Source Oral Pulse Rate 94 H 86 Pulse Rate [Right Brachial] 183 H Respiratory Rate 24 14 20 Blood Pressure 179/84 H 161/65 H Blood Pressure [Right Arm] 127/65 Blood Pressure Mean 115 98 Blood Pressure Mean [Right Arm] 85 Blood Pressure Source [Right Arm] Automatic Cuff Blood Pressure Position [Right Arm] Sitting 02 Sat by Pulse Oximetry 81 L 89 L 87 L Oxygen Delivery Method Nasal Cannula Nasal Cannula Nasal Cannula Oxygen Flow Rate (LPM) 2 3 3 06/27/24 05:03 06/27/24 05:05 06/27/24 05:11 Temperature Temperature Source Pulse Rate 78 80 81 Pulse Rate [Right Brachial] Respiratory Rate 28 H 25 H 17 Blood Pressure 123/53 L 138/51 L 128/59 L Blood Pressure [Right Arm] Blood Pressure Mean 98 92 84 Blood Pressure Mean [Right Arm] Blood Pressure Source [Right Arm] Blood Pressure Position [Right Arm] 02 Sat by Pulse Oximetry 88 L 90 L 91 L Oxygen Delivery Method Nasal Cannula Nasal Cannula Nasal Cannula Oxygen Flow Rate (LPM) 3 3 3 06/27/24 05:21 06/27/24 05:25 06/27/24 05:35 Temperature Temperature Source Pulse Rate 77 78 79 Pulse Rate [Right Brachial] Respiratory Rate 26 H 25 H 27 H Blood Pressure 132/48 L 113/55 L 130/51 L Blood Pressure [Right Arm] Blood Pressure Mean 76 77 77 Blood Pressure Mean [Right Arm] Blood Pressure Source [Right Arm] Blood Pressure Position [Right Arm] 02 Sat by Pulse Oximetry 93 L 86 L 88 L Oxygen Delivery Method Nasal Cannula Nasal Cannula Nasal Cannula Oxygen Flow Rate (LPM) 3 3 3 06/27/24 05:45 06/27/24 06:00 06/27/24 06:10 Temperature Temperature Source Pulse Rate 73 75 75 Pulse Rate [Right Brachial] Respiratory Rate 23 17 21 Blood Pressure 144/53 H 125/57 L 144/56 H Blood Pressure [Right Arm] Blood Pressure Mean 93 79 71 Blood Pressure Mean [Right Arm] Blood Pressure Source [Right Arm] Blood Pressure Position [Right Arm] 02 Sat by Pulse Oximetry 87 L 87 L 86 L Oxygen Delivery Method Nasal Cannula Nasal Cannula Oxygen Flow Rate (LPM) 3 3 3 06/27/24 06:30 06/27/24 06:45 06/27/24 07:00 Temperature Temperature Source Pulse Rate 75 75 72 Pulse Rate [Right Brachial] Respiratory Rate 24 23 19 Blood Pressure 154/58 H 164/60 H 173/54 H Blood Pressure [Right Arm] Blood Pressure Mean 86 92 Blood Pressure Mean [Right Arm] Blood Pressure Source [Right Arm] Blood Pressure Position [Right Arm] 02 Sat by Pulse Oximetry 89 L 91 L 91 L Oxygen Delivery Method Nasal Cannula Nasal Cannula Nasal Cannula Oxygen Flow Rate (LPM) 3 3 3 06/27/24 07:05 06/27/24 07:10 06/27/24 07:15 Temperature Temperature Source Pulse Rate 70 68 83 Pulse Rate [Right Brachial] Respiratory Rate 18 17 19 Blood Pressure 167/63 H 165/71 H 191/70 H Blood Pressure [Right Arm] Blood Pressure Mean Blood Pressure Mean [Right Arm] Blood Pressure Source [Right Arm] Blood Pressure Position [Right Arm] 02 Sat by Pulse Oximetry 92 L 92 L 90 L Oxygen Delivery Method Nasal Cannula Nasal Cannula Nasal Cannula Oxygen Flow Rate (LPM) 3 3 3 06/27/24 07:30 06/27/24 07:40 06/27/24 08:00 Temperature Temperature Source Pulse Rate 77 73 74 Pulse Rate [Right Brachial] Respiratory Rate 30 H 15 30 H Blood Pressure 179/65 H 161/61 H 187/68 H Blood Pressure [Right Arm] Blood Pressure Mean Blood Pressure Mean [Right Arm] Blood Pressure Source [Right Arm] Blood Pressure Position [Right Arm] 02 Sat by Pulse Oximetry 91 L 90 L 91 L Oxygen Delivery Method Nasal Cannula Nasal Cannula Nasal Cannula Oxygen Flow Rate (LPM) 3 3 3 Lab Data Lab Results 06/27/24 04:43: WBC 28.6 H*, RBC 4.53, Hgb 11.3 L, Hct 38.0, MCV 83.9, MCH 24.9 L, MCHC 29.7 L, RDW 18.2 H, Plt Count 426 H, MPV 12.1 H, Neut % (Auto) 77.1, Lymph % (Auto) 15.5, [place] % (Auto) 5.2, Eos % (Auto) 0.9, Baso % (Auto) 0.6, Neut # (Auto) 22.1 H, Lymph # (Auto) 4.4, [place] # (Auto) 1.5 H, Eos # (Auto) 0.3, Baso # (Auto) 0.2, Total Counted 100, Neutrophils % (Manual) 71, Lymphocytes % (Manual) 23, Monocytes % (Manual) 6, Platelet Estimate Slight increase, Hypochromasia 1+, Anisocytosis 1+, Ovalocytes 1+, Sodium 138, Potassium 3.2 L, Chloride 93 L, Carbon Dioxide 28, Anion Gap 20.2 H, BUN 12, Creatinine 0.70, Estimated Creat Clear 45, Estimated GFR 82, Est GFR ( Amer) 99, Glucose 237 H, Calcium 9.3, Phosphorus 3.7, Magnesium 1.4 L, Total Bilirubin 0.4, AST 36, ALT 32, Alkaline Phosphatase 131 H, Troponin I < 0.01, Total Protein 6.4, Albumin 3.7, Globulin 2.7, Albumin/Globulin Ratio 1.4 06/27/24 06:58: Urine Color Yellow, Urine Appearance Clear, Urine pH 6.5, Ur Specific [place] 1.015, Urine Protein Trace, Urine Glucose (UA) Negative, Urine Ketones Trace, Urine Blood Negative, Urine Nitrate Negative, Urine Bilirubin Negative, Urine Urobilinogen 0.2, Ur Leukocyte Esterase Negative, Urine RBC None, Urine WBC Occasional, Ur Squamous Epith Cells 5-10, Urine Bacteria Trace 06/27/24 07:12: VBG pH 7.38, VBG pCO2 48.1, VBG pO2 46.0 H, VBG HCO3 27.8, VBG Total CO2 29.3 H, VBG O2 Saturation 77.7 H, VBG Base Excess 2.7 H, VBG Lactic Acid 3.4 H 06/27/24 07:30: Troponin I 0.06 H Orders (Tests/Meds): ED MEDICATIONS Generic Name Dose Route Start Last Admin Trade Name Morteza PRN Reason Stop Dose Admin Lactated Ringer's 1,370 mls @ 685 mls/hr 06/27/24 08:07 Lactated Ringer's 1000 Ml Bag 30 ml/kg infuse over 2 hr (1370 ml) 06/27/24 10:06 IV .Q2H ONE Cefepime HCl 2 gm/ Sodium 100 mls @ 200 mls/hr 06/27/24 08:17 Chloride IV 06/27/24 08:46 ONCE ONE Vancomycin HCl 1,000 mg/ 250 mls @ 125 mls/hr 06/27/24 08:30 Sodium Chloride IV 06/27/24 10:29 ONCE ONE Discontinued Medications Generic Name Dose Route Start Last Admin Trade Name Morteza PRN Reason Stop Dose Admin Adenosine 6 mg 06/27/24 05:01 06/27/24 04:35 Adenosine 6mg/2ml Vial IV 06/27/24 05:02 6 mg ONCE ONE Administration Adenosine 12 mg 06/27/24 05:02 06/27/24 04:55 Adenosine 6mg/2ml Vial IV 06/27/24 05:03 12 mg ONCE ONE Administration Amlodipine Besylate 5 mg 06/27/24 07:03 06/27/24 07:36 Amlodipine 5mg Tablet PO 06/27/24 07:04 5 mg ONCE ONE Administration Magnesium Sulfate 2 gm in 50 mls @ 150 mls/hr 06/27/24 05:38 06/27/24 05:49 Magnesium Sulfate 2gm/50ml Premix IV 06/27/24 05:57 150 mls/hr ONCE ONE Administration Potassium Chloride/Water 100 mls @ 100 mls/hr 06/27/24 05:38 06/27/24 05:50 Potassium Chloride 10meq/100ml Ivpb IV 06/27/24 06:37 100 mls/hr ONCE ONE Administration Lisinopril 40 mg 06/27/24 07:03 06/27/24 07:35 Lisinopril 20mg Tablet PO 06/27/24 07:04 40 mg ONCE ONE Administration Metoprolol Succinate 100 mg 06/27/24 04:59 06/27/24 05:20 Metoprolol Succinate Xl 100mg Tablet PO 06/27/24 05:00 100 mg ONCE ONE Administration Metoprolol Tartrate 5 mg 06/27/24 05:02 06/27/24 04:45 Metoprolol Tartrate 5mg/5ml Vial IV 06/27/24 05:03 5 mg ONCE ONE Administration Metoprolol Tartrate 5 mg 06/27/24 05:02 06/27/24 04:52 Metoprolol Tartrate 5mg/5ml Vial IV 06/27/24 05:03 5 mg ONCE ONE Administration Metoprolol Tartrate 5 mg 06/27/24 05:03 06/27/24 05:00 Metoprolol Tartrate 5mg/5ml Vial IV 06/27/24 05:04 5 mg ONCE ONE Administration Miscellaneous 1 each 06/27/24 08:30 Vancomycin Consult Request NOTAPPLIC 07/27/24 08:29 [facility] Potassium Chloride 40 meq 06/27/24 05:38 06/27/24 05:49 Potassium Chloride 20meq Tab PO 06/27/24 05:39 40 meq ONCE ONE Administration ORDERS Category Date Time Status CT chest wo con Stat Cat Scan 06/27/24 07:12 Taken CXR --portable [XR chest portable] Stat Exams 06/27/24 05:03 Completed CBC w/Auto Diff [Complete Blood Count Auto Diff] Stat Lab 06/27/24 04:43 Completed CMP [Comprehensive Metabolic Panel] Stat Lab 06/27/24 04:43 Completed Magnesium Stat Lab 06/27/24 04:43 Completed Phosphorous Stat Lab 06/27/24 04:43 Completed Troponin I Q3H Lab 06/27/24 04:43 Completed Troponin I Q3H Lab 06/27/24 07:30 Completed UA [Urinalysis and Microscopic] Stat Lab 06/27/24 06:58 Completed VBG [Venous Blood Gas] Stat RT 06/27/24 07:12 Completed EKG Request [ECG Request] Stat Y 06/27/24 05:58 Ordered HEART Score HEART Score: 6 Medical Decision Narrative: 73-year-old female with history of disease, diabetes, COPD on 2 L nasal cannula baseline, dementia, history of intermittent SVT presents with tachycardia and found to be in SVT. History was obtained via interactive discussion with patient, family, chart review. On arrival, patient is afebrile, tachycardic to the 180s, normotensive, a little uncomfortable appearing, requiring 4 L nasal cannula to maintain sats of 90. Full physical exam performed and significant for no significant lower extremity edema, clear lungs bilaterally Differential includes but is not limited to SVT, electrolyte derangement, medication noncompliance, ACS, PE, pneumonia. No abnormal lung sounds to suggest COPD exacerbation. Patient was given 6 of adenosine initially with very brief termination of SVT. Patient was then given 5 of IV metoprolol, again with brief resolution of SVT. Patient was given another 5 of IV metoprolol with heart rate improvement to the 160s. Patient was then given 12 of IV adenosine with sustained termination of SVT. Workup initiated including CBC CMP mag EKG chest x-ray troponin. On re-evaluation, patient reports she feels well. She is satting high 80s low 90s on 3 L nasal cannula. Laboratory workup independently interpreted by me and significant for mild hypomagnesemia and hypokalemia, negative initial troponin. Patient does have a leukocytosis with white count of 28. No obvious infectious symptoms noted or reported by family, will assess with urinalysis. Imaging independently interpreted by me and significant for possible left sided opacity. See radiology read for full review of final results. At this time care handed off to oncoming physician pending urinalysis and CT Noncon of the chest to assess for pneumonia. Tiffanie: I assumed primary responsibility for this patient after signout from previous physician. After handoff, on my independent evaluation of patient, she is nontachypneic, very clinically well-appearing, speaking in full sentences and has no complaints. States she actually wants to go home. Lungs with diffuse end expiratory wheezes, decreased in left lung base. She is nontachycardic. I independently interpreted patient's workup. She has a leukocytosis of 28,000 with elevated neutrophil and monocyte count relatively. VBG was ordered. On independent interpretation, patient has normal pH, bicarbonate and CO2, but lactate of 3.4. Sepsis fluid bolus and empiric antibiotics including vancomycin and cefepime were started. Independent rotation of rest of labs, patient has hypokalemia 3.2 which was repleted IV, hypomagnesemia 1.4 which was repleted IV as well as positive delta troponin from 0.01-0.06 concerning for type II NSTEMI. Patient's urinalysis without concern for UTI. Chest x-ray was independently interpreted. Patient has what appears to be a left lower lobe consolidation with loss of the diaphragmatic border and potential parapneumonic effusion with meniscus sign. CT Noncon was ordered in order to further characterize this. On CT Noncon, patient does have dense consolidation as well as diffuse bilateral groundglass opacities versus interstitial pulmonary edema. Patient was given sepsis fluid bolus given leukocytosis, lactate, wide pulse pressure 187/68, and pneumonia. Hospital medicine was contacted and case was discussed at length, patient to be admitted for further definitive management and clearing blood cultures. Because patient high risk for clinical decompensation, deemed appropriate for inpatient admission. Results were relayed to patient and family who voiced understanding and patient was agreeable to inpatient admission and management. Patient was admitted to the hospital for further definitive management. Procedures <Bruno Kraft MD - Last Filed: 06/27/24 07:25> Risk/Benefits of Procedure(s) Were Explained: Yes Critical Care <Bruno Kraft MD - Last Filed: 06/27/24 07:25> Critical Care Time Critical Care Time: Yes Attestation: On 06/27/24, the high probability of a clinically significant, sudden or life threatening deterioration of the following system(s) cardiac, pulmonary required my full and direct attention, intervention and personal management. The time I documented below is in addition to time spent performing reported procedures but includes the following listed in this critical care notation. Total Time Total Critical Care Time: 40 <Donnie Moreno MD - Last Filed: 06/27/24 08:26> Critical Care Time Critical Care Time: Yes (cardiac, pulmonary, ID) Total Time Total Critical Care Time: 65
--- NOTE | 2024-06-27 05:03 | XR_ITS ---
PROCEDURE INFORMATION: Exam: XR Chest Exam date and time: 06/27/2024 5:14 AM Age: 73 years old Clinical indication: Shortness of breath; Additional info: SOA TECHNIQUE: Imaging protocol: Radiologic exam of the chest. Views: 1 view. COMPARISON: CR XR CHEST PORTABLE 03/11/2024 9:29 AM FINDINGS: Lungs: Left lung base opacity likely representing atelectasis or infection or pleural effusion is stable. Pleural spaces: As above Heart/Mediastinum: Unremarkable. No cardiomegaly. Bones/joints: Unremarkable. IMPRESSION: Left lung base opacity likely representing atelectasis or infection or pleural effusion is stable.
--- NOTE | 2024-06-27 05:08 | PC.NURSE ---
Pt arrives via wheelchair with daughters (caregivers) Pt diaphoretic and short of breath. Pt placed on 2 lpm nasal cannula which is her home dose. Vital signs and history obtained MD to bedside. IV's established. Pt's O2 turned up to 4lopm at 0435 [id number] Pt in atrial fibrillation per continuous heart monitor at controlled rate
[2024-06-27] MEDS: METOPROLOL SUCCINATE XL 100MG TABLET 100 MG PO (05:20)
[2024-06-27 05:22] LABS: Alanine Aminotransferase 32 U/L (12-78); Albumin Level 3.7 g/dl (3.5-5.0); Albumin/Globulin Ratio 1.4 (1.1-1.8); Alkaline Phosphatase 131 U/L (38-126); Anion Gap 20.2 mEq/L (5-15); Aspartate Amino Transferase 36 U/L (14-36); Bilirubin,Total 0.4 mg/dl (0.2-1.3); Blood Urea Nitrogen 12 mg/dl (7-17); Calcium 9.3 mg/dl (8.4-10.2); Carbon Dioxide 28 mmol/L (22.0-30.0); Chloride 93 mmol/L (98-107); Creatinine Clearance Estimated 45 mL/min (50-200); Estimated Glomerular Filt Rate 82 ml/min (>60); GFR (African American) 99 ML/MIN (>60); Globulin 2.7 g/dL (1.3-3.2); Glucose 237 mg/dl (74-100); Magnesium 1.4 mg/dl (1.6-2.3); Phosphorous 3.7 mg/dl (2.5-4.5); Potassium 3.2 mmoL/L (3.5-5.1); Sodium 138 mmol/L (136-145); Total Protein,Serum 6.4 g/dl (6.3-8.2)
[2024-06-27 05:34] LABS: Troponin I < 0.01 ng/ml (0.00-0.034)
[2024-06-27 05:49] LABS: Basophils # 0.2 K/mm3 (0-0.2); Basophils % 0.6 % (0.1-2.0); Eosinophils # 0.3 K/mm3 (0.0-0.4); Eosinophils % 0.9 % (0.1-12.0); Hemoglobin 11.3 g/dL (12.2-16.2); Lymphocytes # 4.4 K/mm3 (0.7-4.5); Lymphocytes % 15.5 % (10-50); Mean Corpuscular HGB Conc 29.7 g/dL (31.8-35.4); Mean Corpuscular Hemoglobin 24.9 pg (27.0-31.2); Mean Corpuscular Volume 83.9 fl (81-99); Mean Platelet Volume 12.1 fl (7.4-10.4); Monocytes # 1.5 K/mm3 (0.1-1.0); Monocytes % 5.2 % (1.7-9.3); Neutrophils # 22.1 K/mm3 (1.8-7.8); Neutrophils % 77.1 % (37.0-80.0); Platelet Count 426 K/mm3 (142-424); Red Blood Count 4.53 M/mm3 (4.20-5.40); Red Cell Distribution Width 18.2 % (11.5-17.5); White Blood Count 28.6 K/mm3 (4.8-10.8)
[2024-06-27] MEDS: POTASSIUM CHLORIDE 20MEQ TAB 40 MEQ PO ×2 (05:49→14:03)
[2024-06-27] MEDS: MAGNESIUM SULFATE IN WATER 2 GM/50 ML PIGGYBACK IV ×3 (05:49→15:18)
[2024-06-27] MEDS: KCl 10mEq/100ml 100 ML 100 MEQ IV (05:50)
[2024-06-27 05:52] LABS: MANUAL DIFFERENTIAL MANUAL DIFFERENTIAL (MANUAL DIFF)
--- NOTE | 2024-06-27 06:01 | ECG_ITS ---
APPROVED REPORT Exam: Resting ECG HR:78 bpm ECG Measurements Heart Rate 78 AXES NC 231 P 39 QRSd 102 QRS 33 QT 394 T 33 QTc 427 Conclusion Sinus rhythm first-degree AV block Low voltage QRS Q waves in anterior and inferior leads with no acute ischemic change Electronically signed by : SUMMER ALBRIGHT, 06/27/2024 12:50:35
[2024-06-27 07:02] LABS: Microscopic, Urine URINE MICROSCOPIC (MICROSCOPIC)
--- NOTE | 2024-06-27 07:12 | CT_ITS ---
FINAL REPORT CLINICAL HISTORY: concern for PNA vs effusion, palpitatoins COMPARISON: 05/02/2020 FINDINGS: CT CHEST without contrast COMPARISON: None . TECHNIQUE: Axial CT without contrast This study was performed with techniques to keep radiation doses as low as reasonably achievable, (ALARA). Individualized dose reduction techniques using automated exposure control or adjustment of mA and/or kV according to the patient's size were employed. FINDINGS: There is left lower lobe consolidation present, compatible with pneumonia. Associated air bronchograms are present in the left base. There are groundglass densities within the lungs, suggestive of mild edema. No pleural or pericardial effusion is seen . No adenopathy or mass lesion is present . IMPRESSION: 1. Extensive left lower lobe consolidation compatible with pneumonia. 2. Mild pulmonary edema is suspected. 3. No pleural effusion is identified. This study was performed using automated techniques to achieve radiation exposure as low as reasonably achievable Reviewed, Interpreted and Dictated by Kilo Madrid MD Transcribed by Janeth Wilkins Authenticated and [facility]
[2024-06-27 07:26] LABS: Lymphocytes % 23 % (10-50); Monocytes % 6 % (2-9); Neutrophils % 71 % (42-76); Total Cells Counted 100
[2024-06-27 07:27] LABS: Anisocytosis 1+; Hypochromasia 1+; Ovalocytes 1+; Platelet Estimate Slight Increase
[2024-06-27 07:32] LABS: Appearance,Urine CLEAR (Clear); Bilirubin,Urine Negative (Negative); Blood, Urine Negative (Negative); Color,Urine YELLOW (Yellow); Glucose,Urine (UA) Negative (Negative); Ketones,Urine TRACE (Negative); Leukocyte Esterase,Urine Negative (Negative); Nitrate,Urine Negative (Negative); PH,Urine 6.5 (5.0-8.5); Protein,Urine TRACE (Negative); Specific Gravity, Urine 1.015 (1.005-1.030); Urobilinogen,Urine 0.2 EU/dl (0.2)
[2024-06-27] MEDS: LISINOPRIL 20MG TABLET 40 MG PO ×2 (07:35→20:46)
[2024-06-27] MEDS: AMLODIPINE 5MG TABLET 5 MG PO (07:36)
[2024-06-27 07:38] LABS: VBG Base Excess 2.7 mmol/L (-2.4-2.3); VBG HCO3 27.8 mmol/L (23-30); VBG Oxygen Saturation 77.7 % (50-70); VBG PCO2 48.1 mmol/L (35-51); VBG PH 7.38 mmol/L (7.31-7.41); VBG Total CO2 29.3 mmol/L (23-27)
--- NOTE | 2024-06-27 07:38 | PC.NURSE ---
RT and lab called regarding VBG and 2nd troponin samples sent to lab.
[2024-06-27 07:43] LABS: Lactate Venous 3.4 mmol/L (0.4-2.0)
[2024-06-27 07:50] LABS: WBC,Urine Occasional #/hpf (0-3)
[2024-06-27 07:51] LABS: Bacteria,Urine Trace /lpf
[2024-06-27 08:06] LABS: Troponin I 0.06 ng/ml (0.00-0.034)
--- NOTE | 2024-06-27 08:22 | PC.NURSE ---
spoke with housekeeping lead for bed placement
--- NOTE | 2024-06-27 08:29 | EXP.HP ---
History of Present Illness *Admission Date: 06/27/24 *Reason for visit:: dyspnea *History of present illness: Ms. Stone is a 73-year-old female history of CVA with residual right sided deficits, CABG, CHF, who presented with acute hypoxia earlier today. Normally wears 2-1/2 L of oxygen daily. On arrival to the ED was found to be in SVT. Daughter state they brought her in because she was diaphoretic and feeling short of breath. States her heart was racing. Patient was cardioverted with adenosine and rate controlled with metoprolol in the ED. On further workup, found to be septic with elevated white count, tachycardia, pneumonia on chest imaging. Increased oxygen requirement of 3 to 4 L from her baseline 2.5L. Count elevated at 28, chest imaging with left lower lobe pneumonia. Medicine was consulted for admission and further management. On arrival to the floor, patient is in minimal distress. Satting low 90s on 4 L oxygen. Family at bedside helps answer questions and review of systems. Patient denies any chest pain at this time. Crackles on exam and left lower lobe. Afebrile at this time. Cardiology consulted to assist with care [facility] Disclaimer: The information contained in this section may have been updated after the patient was seen, as this information can be updated by other users. Medical History Pericardial effusion Diabetes mellitus Hyperlipidemia Hypertensive heart disease Hypertension CAD (coronary artery disease) Cataract SVT (supraventricular tachycardia) COPD exacerbation COPD (chronic obstructive pulmonary disease) Respiratory failure with hypoxia History of CVA (cerebrovascular accident) Vomiting Weight loss Lumbar stenosis Thoracic compression fracture Cerebral atrophy Sepsis UTI (urinary tract infection) CAP (community acquired pneumonia) Carotid artery stenosis Tobacco dependence syndrome Coronary arteriosclerosis Surgical History History of coronary artery bypass graft S/P CABG x 3 Family History Other Diabetes Family history of hyperlipidemia Family history of hypertension Parkinsons Social History Smoking Status: Former smoker tobacco type: cigarettes packs per day: 1 alcohol intake: never counseling provided: none substance use type: denies use current occupational status: retired Travel in the last 8 weeks: Inside the [place] household members: family housing: house caffeine: Yes Have you lived/traveled outside [place] in past 30 days?: No Contact w/someone who lives/traveled outside US past 30 days?: No Exposure to someone with infectious disease in past 14 days?: No Do you have a fever (greater than 100.4 F or 38 C)?: No Have you tested positive for COVID-19: No Exposed to someone with COVID-19 in past 14 days?: No Do you have a sore throat?: No Do you have a cough?: No Do you have any weakness?: No Do you have any diarrhea?: No Are you experiencing any unusual bleeding?: No Do you have any muscle aches/pain?: No Do you have any abdominal pain?: No Are you experiencing loss of taste or smell?: No Other Medical History Have you received the Flu Vaccine for this season: No Have you received the Pneumonia Vaccine: Yes Review of Systems Review of Systems Review of systems (narrative): 14 point review of systems performed, pertinent positives and negatives as per [facility] Meds Home Medications and Allergies Home Medications ?Medication ?Instructions ?Recorded ?Confirmed ?Type atorvastatin 80 mg tablet 80 mg PO HS 04/05/17 06/27/24 History aspirin 325 mg tablet 325 mg PO DAILY 09/14/17 06/27/24 History isosorbide mononitrate 30 mg 30 mg PO DAILY 03/26/18 06/27/24 History tablet,extended release 24 hr amlodipine 5 mg tablet 5 mg PO DAILY 05/20/19 06/27/24 History cholecalciferol (vitamin D3) 25 25 mcg PO HS 03/13/20 06/27/24 History mcg (1,000 unit) capsule memantine 10 mg tablet 10 mg PO BID 09/18/20 06/27/24 History donepezil 5 mg tablet 5 mg PO DAILY 05/21/21 06/27/24 History multivitamin (Daily Multi-Vitamin 1 tab PO DAILY 12/03/21 06/27/24 History tablet) escitalopram oxalate 10 mg tablet 10 mg PO DAILY 06/17/22 06/27/24 History lisinopril 40 mg tablet 40 mg PO BID 01/21/23 06/27/24 History metformin 1,000 mg tablet 1,000 mg PO BID 01/22/23 06/27/24 History metoprolol succinate 100 mg 100 mg PO DAILY 01/22/23 06/27/24 History tablet,extended release 24 hr pantoprazole 40 mg tablet,delayed 40 mg PO DAILY 02/21/24 06/27/24 History release gabapentin 100 mg capsule 100 mg PO BID 03/11/24 06/27/24 History lorazepam 0.5 mg tablet 0.5 mg PO HS 03/11/24 06/27/24 History furosemide 20 mg tablet 20 mg PO DAILY 30 days #0 tabs 03/13/24 06/27/24 Rx ferrous sulfate 325 mg (65 mg 325 mg PO DAILY 06/27/24 06/27/24 History iron) tablet (FeroSul) magnesium oxide 400 mg (241.3 mg 400 mg PO BID 06/27/24 06/27/24 History magnesium) tablet New Prescriptions to Start Prescriptions: Allergies Allergy/AdvReac Type Severity Reaction Status Date / Time Iodinated Contrast Media Allergy Mild Unknown Verified 04/24/24 13:14 allergy reaction naproxen Allergy Mild Unknown Verified 04/24/24 13:14 allergy reaction Exam Data for Last 24 hours Vital signs and Labs for Last 24 Hours: Temp Pulse Resp BP Pulse Ox O2 Del Method O2 Flow Rate 98.2 F 74 30 H 187/68 H 91 L Nasal Cannula 3 06/27/24 04:48 06/27/24 08:00 06/27/24 08:00 06/27/24 08:00 06/27/24 08:00 06/27/24 08:00 06/27/24 08:00 Laboratory Results - last 24 hr 06/27/24 04:43: WBC 28.6 H*, RBC 4.53, Hgb 11.3 L, Hct 38.0, MCV 83.9, MCH 24.9 L, MCHC 29.7 L, RDW 18.2 H, Plt Count 426 H, MPV 12.1 H, Neut % (Auto) 77.1, Lymph % (Auto) 15.5, Mower % (Auto) 5.2, Eos % (Auto) 0.9, Baso % (Auto) 0.6, Neut # (Auto) 22.1 H, Lymph # (Auto) 4.4, Mower # (Auto) 1.5 H, Eos # (Auto) 0.3, Baso # (Auto) 0.2, Total Counted 100, Neutrophils % (Manual) 71, Lymphocytes % (Manual) 23, Monocytes % (Manual) 6, Platelet Estimate Slight increase, Hypochromasia 1+, Anisocytosis 1+, Ovalocytes 1+, Sodium 138, Potassium 3.2 L, Chloride 93 L, Carbon Dioxide 28, Anion Gap 20.2 H, BUN 12, Creatinine 0.70, Estimated Creat Clear 45, Estimated GFR 82, Est GFR ( Amer) 99, Glucose 237 H, Calcium 9.3, Phosphorus 3.7, Magnesium 1.4 L, Total Bilirubin 0.4, AST 36, ALT 32, Alkaline Phosphatase 131 H, Troponin I < 0.01, Total Protein 6.4, Albumin 3.7, Globulin 2.7, Albumin/Globulin Ratio 1.4 06/27/24 06:58: Urine Color Yellow, Urine Appearance Clear, Urine pH 6.5, Ur Specific [place] 1.015, Urine Protein Trace, Urine Glucose (UA) Negative, Urine Ketones Trace, Urine Blood Negative, Urine Nitrate Negative, Urine Bilirubin Negative, Urine Urobilinogen 0.2, Ur Leukocyte Esterase Negative, Urine RBC None, Urine WBC Occasional, Ur Squamous Epith Cells 5-10, Urine Bacteria Trace 06/27/24 07:12: VBG pH 7.38, VBG pCO2 48.1, VBG pO2 46.0 H, VBG HCO3 27.8, VBG Total CO2 29.3 H, VBG O2 Saturation 77.7 H, VBG Base Excess 2.7 H, VBG Lactic Acid 3.4 H 06/27/24 07:30: Troponin I 0.06 H I & O for Last 24 hours: Intake & Output 06/24/24 06/25/24 06/26/24 06/27/24 23:59 23:59 23:59 23:59 Weight 56.699 kg Constitutional Constitutional: mild distress, thin, chronically ill appearing and cooperative *Routine HEENT Exam Head: Present normocephalic Eye: Present EOMI and PERRL ENT: Present mucous membranes moist *Routine Neck Exam Neck: Present supple; Absent lymphadenopathy *Routine Respiratory Exam Respiratory: Present prolonged expiratory phase, crackles (Left lower lung field) and diminished air movement; Absent rhonchi or wheezes *Routine Cardiovascular Exam Cardiovascular: Present RRR *Routine Abdominal Exam Abdominal: Present soft and normoactive bowel sounds; Absent tenderness *Routine Rectal Exam Rectal:: deferred *Routine Genitalia Exam Genitalia:: deferred *Routine Extremities Exam Extremities: Absent cyanosis, clubbing or edema *Routine Skin Exam Skin: Present warm; Absent rash *Routine Neurological Exam Neurological: Present alert; Absent altered mental status or moving all extremities Comments: Right sided deficits; oriented to self and place Assessment and Plan *Assessment and plan (1) Sepsis: Status: Acute Qualifiers: Acute respiratory failure type: with hypoxia Sepsis acute organ dysfunction status: with acute organ dysfunction Sepsis type: sepsis due to unspecified organism Severe sepsis acute organ dysfunction type: acute respiratory failure Severe sepsis shock status: without septic shock Qualified Code(s): A41.9 - Sepsis, unspecified organism; R65.20 - Severe sepsis without septic shock; J96.01 - Acute respiratory failure with hypoxia Category: Medical Code(s): A41.9 - Sepsis, unspecified organism (2) Left lower lobe pneumonia: Status: Acute Qualifiers: Pneumonia type: due to unspecified organism Qualified Code(s): J18.9 - Pneumonia, unspecified organism Category: Medical Code(s): J18.9 - Pneumonia, unspecified organism (3) SVT (supraventricular tachycardia): Status: Acute Category: Medical Code(s): I47.10 - Supraventricular tachycardia, unspecified (4) Acute hypoxemic respiratory failure: Status: Acute Category: Medical Code(s): J96.01 - Acute respiratory failure with hypoxia (5) CHF exacerbation: Status: Acute Category: Medical Code(s): I50.9 - Heart failure, unspecified (6) Pneumonia: Status: Acute Category: Medical Code(s): J18.9 - Pneumonia, unspecified organism (7) Acute exacerbation of chronic obstructive pulmonary disease: Status: Acute Category: Medical Code(s): J44.1 - Chronic obstructive pulmonary disease with (acute) exacerbation (8) CAD (coronary artery disease): Status: Acute Qualifiers: Coronary Disease-Associated Artery/Lesion type: [place] artery [place] vs. transplanted heart: [place] heart Associated angina: without angina Qualified Code(s): I25.10 - Atherosclerotic heart disease of [place] coronary artery without angina pectoris Category: Medical Code(s): I25.10 - Atherosclerotic heart disease of [place] coronary artery without angina pectoris (9) Diabetes type 2, controlled: Status: Acute Category: Medical Code(s): E11.9 - Type 2 diabetes mellitus without complications (10) Diastolic CHF: Status: Acute Category: Medical Code(s): I50.30 - Unspecified diastolic (congestive) heart failure (11) Vascular dementia: Status: Acute Category: Medical Code(s): F01.50 - Vascular dementia, unspecified severity, without behavioral disturbance, psychotic disturbance, mood disturbance, and anxiety (12) History of CVA (cerebrovascular accident): Status: Chronic Category: Medical Code(s): Z86.73 - Personal history of transient ischemic attack (TIA), and cerebral infarction without residual deficits Plan 73-year-old female with history of CHF, CABG, CAD, CVA, diabetes, dementia. Presented with acute worsening shortness of breath. Found to be in SVT with sepsis and pneumonia. Discussed case with ER physician, request admission for treatment of SVT, medication adjustments, and treatment of sepsis and pneumonia. I agreed to admit for further care. PSI/port score of 93, class IV risk. Due to age, female, CVA history, heart rate greater than 125 on presentation, CHF. Tolerating 4 L oxygen. Necessitating inpatient care. Continue antibiotics and heart rate controlling medications. Problems addressed as follows: Acute on chronic hypoxemic respiratory failure Left lower lobe pneumonia pneumonia -Continue supplemental oxygen for goal sats greater 90%. Currently on 4 L. Wean as tolerated. - Continue cefepime 2 g every 12 hours, vancomycin 1 g daily; cultures pending -White count elevated at 28,000, hemoglobin 11.3. Initially hypoxic necessitating increased oxygen requirement. Potassium at baseline of BUN 12, creatinine 0.7. -Chest CT per my review that shows left lower lobe consolidation compatible with pneumonia. Has some pulmonary edema. No significant effusions however. - Repeat CBC, CMP, magnesium ordered for the morning SVT Type II NSTEMI Hypertension -Cardiology consulted to assist with care. Converted with adenosine and IV metoprolol. Remains in sinus rhythm at this time. Continue metoprolol. No plans for invasive left heart cath at this time. Consider further ischemic eval as an outpatient once pneumonia has resolved. -Reviewed previous echo from February 2024. Had small pericardial effusion at that time, repeat echo pending. -Continue aspirin 81 mg daily and isosorbide for CAD. -Consider resuming amlodipine, lisinopril, metoprolol pending kidney function and blood pressure stability in the setting of sepsis. -Cardiology evaluated, recommend following up on pending echo. No other adjustments at this time. Symptoms most likely due to her respiratory infection rather than CHF. Diabetes: A1c 6.1 in February. Glucose 237 on arrival. Repeat A1c pending. Continue fingersticks ACHS with sliding scale insulin. Holding metformin in the setting of sepsis. History of CVA: continue Lipitor 80 mg daily for hyperlipidemia, continue aspirin 325 mg daily Depression: Continue Lexapro 10 mg daily Vascular dementia: Continue donepezil 5 g daily memantine 10 mg twice daily. DNR/DNI PLOV Cardiac diet
[2024-06-27] MEDS: LACTATED RINGERS 1000ML 1,370 ML 685 ML IV (08:32)
--- NOTE | 2024-06-27 08:50 | P.CONPHA_ITS ---
Pharmacy Consult Date: 06/27/24 Time: 08:50 Referring provider: DR. TOLENTINO Reason for Consult:: VANCOMYCIN DOSING Allergies Allergy/AdvReac Type Severity Reaction Status Date / Time Iodinated Contrast Media Allergy Mild Unknown Verified 04/24/24 13:14 allergy reaction naproxen Allergy Mild Unknown Verified 04/24/24 13:14 allergy reaction Home Medications ?Medication ?Instructions ?Recorded ?Confirmed ?Type atorvastatin 80 mg tablet 80 mg PO HS 04/05/17 04/24/24 History magnesium oxide 400 mg PO BID 04/05/17 04/24/24 History aspirin 325 mg tablet 325 mg PO DAILY 09/14/17 04/24/24 History isosorbide mononitrate 30 mg 30 mg PO DAILY 03/26/18 04/24/24 History tablet,extended release 24 hr amlodipine 5 mg tablet 5 mg PO DAILY 05/20/19 04/24/24 History cholecalciferol (vitamin D3) 25 25 mcg PO HS 03/13/20 04/24/24 History mcg (1,000 unit) capsule memantine 10 mg tablet 10 mg PO BID 09/18/20 04/24/24 History donepezil 5 mg tablet 5 mg PO DAILY 05/21/21 04/24/24 History multivitamin (Daily Multi-Vitamin 1 tab PO DAILY 12/03/21 04/24/24 History tablet) escitalopram oxalate 10 mg tablet 10 mg PO DAILY 06/17/22 04/24/24 History lisinopril 40 mg tablet 40 mg PO BID 01/21/23 04/24/24 History metformin 1,000 mg tablet 1,000 mg PO BID 01/22/23 04/24/24 History metoprolol succinate 100 mg 100 mg PO DAILY 01/22/23 04/24/24 History tablet,extended release 24 hr pantoprazole 40 mg tablet,delayed 40 mg PO DAILY 02/21/24 04/24/24 History release gabapentin 100 mg capsule 100 mg PO BID 03/11/24 04/24/24 History lorazepam 0.5 mg tablet 0.5 mg PO HS 03/11/24 04/24/24 History furosemide 20 mg tablet 20 mg PO DAILY 30 days #0 tabs 03/13/24 04/24/24 Rx New Prescriptions to Start Prescriptions: Height: 1.52 m Weight: 56.699 kg Laboratory Results:: Laboratory Results - last 24 hr 06/27/24 04:43: WBC 28.6 H*, RBC 4.53, Hgb 11.3 L, Hct 38.0, MCV 83.9, MCH 24.9 L, MCHC 29.7 L, RDW 18.2 H, Plt Count 426 H, MPV 12.1 H, Neut % (Auto) 77.1, Lymph % (Auto) 15.5, [place] % (Auto) 5.2, Eos % (Auto) 0.9, Baso % (Auto) 0.6, Neut # (Auto) 22.1 H, Lymph # (Auto) 4.4, [place] # (Auto) 1.5 H, Eos # (Auto) 0.3, Baso # (Auto) 0.2, Total Counted 100, Neutrophils % (Manual) 71, Lymphocytes % (Manual) 23, Monocytes % (Manual) 6, Platelet Estimate Slight increase, Hypochromasia 1+, Anisocytosis 1+, Ovalocytes 1+, Sodium 138, Potassium 3.2 L, Chloride 93 L, Carbon Dioxide 28, Anion Gap 20.2 H, BUN 12, Creatinine 0.70, Estimated Creat Clear 45, Estimated GFR 82, Est GFR ( Amer) 99, Glucose 237 H, Calcium 9.3, Phosphorus 3.7, Magnesium 1.4 L, Total Bilirubin 0.4, AST 36, ALT 32, Alkaline Phosphatase 131 H, Troponin I < 0.01, Total Protein 6.4, Albumin 3.7, Globulin 2.7, Albumin/Globulin Ratio 1.4 06/27/24 06:58: Urine Color Yellow, Urine Appearance Clear, Urine pH 6.5, Ur Specific [place] 1.015, Urine Protein Trace, Urine Glucose (UA) Negative, Urine Ketones Trace, Urine Blood Negative, Urine Nitrate Negative, Urine Bilirubin Negative, Urine Urobilinogen 0.2, Ur Leukocyte Esterase Negative, Urine RBC None, Urine WBC Occasional, Ur Squamous Epith Cells 5-10, Urine Bacteria Trace 06/27/24 07:12: VBG pH 7.38, VBG pCO2 48.1, VBG pO2 46.0 H, VBG HCO3 27.8, VBG Total CO2 29.3 H, VBG O2 Saturation 77.7 H, VBG Base Excess 2.7 H, VBG Lactic Acid 3.4 H 06/27/24 07:30: Troponin I 0.06 H Medical History: Medical History (Updated 06/27/24 @ 08:26 by Donnie Moreno MD) CAD (coronary artery disease) Cataract SVT (supraventricular tachycardia) COPD exacerbation COPD (chronic obstructive pulmonary disease) Respiratory failure with hypoxia History of CVA (cerebrovascular accident) Vomiting Weight loss Lumbar stenosis Thoracic compression fracture Cerebral atrophy Sepsis UTI (urinary tract infection) CAP (community acquired pneumonia) Carotid artery stenosis Tobacco dependence syndrome Diabetes mellitus Hyperlipidemia Hypertensive heart disease Coronary arteriosclerosis Assessment and Plan Assessment and plan all Dx Assessment and Plan for all problems:: Pharmacokinetic dosing service Objective: Patient: Floor: Age: 73 yo Serum creatinine: 0.70 mg/dL Height: 60.0 Inches Weight (kg): 56.7 Assessment: IBW (kg): 45.50 Dosing wt(kg): 56.7 Estimated Creatinine clearance (ml/min): 51.4 CRCL method: Cockcroft and Gault using ibw(default). Drug selected: Vancomycin Loading dose (mg): Vd (liters): 45.4 (factor used: 0.8 L/kg) Larry (hr-1): 0.047 Half life (hrs): 14.75 CLvanco=?? 2.134 L/hr Recommended dose: 1000 mg Interval: 24 hrs Infusion time (hrs): 2.0 Predicted peak (mcg/mL): 31.1 Predicted trough (mcg/mL): 11.06 Total body weight is being used for vancomycin dosing. Recommendations: Give Vancomycin 1000 mg q 24 hrs with an expected Cpeak of 31.1 mcg/ml and an expected Ctrough of 11.06 mcg/ml AUC 0-24 /GAIL Data: GAIL 0.5 mcg/mL:?? AUC/GAIL:? 937.2 GAIL 1.0 mcg/mL:?? AUC/GAIL:? 468.6 --------- GAIL 1.5 mcg/mL:?? AUC/GAIL:? 312.4 GAIL 2.0 mcg/mL:?? AUC/GAIL:? 234.3 Thank you for the consult, will continue to follow. -JACQUES MILLER, DRUD
--- NOTE | 2024-06-27 08:55 | PC.NURSE ---
I rounded on the pt. She states she is hot, I gave her a cool/wet wash cloth for the back of her neck. no other complaints. no needs voiced. call llamas in reach.
--- NOTE | 2024-06-27 09:04 | HMH.PHAINT1 ---
Pharmacy Intervention Comments: MEDICATION RECONCILIATION COMPLETED ON PATIENT USING EXTERNAL FILL HISTORY FROM PHARMACY AND BUDDY REPORT. -JACQUES MILLER, DRUD
[2024-06-27] MEDS: VANCOMYCIN HCL 1,000 MG in 0.9 % SODIUM CHLORIDE 250 ML 125 MG IV (09:13)
[2024-06-27] MEDS: CEFEPIME HCL 2 GM in 0.9 % SODIUM CHLORIDE 100 ML IV ×2 (09:13→20:47)
[2024-06-27] MEDS: VANCOMYCIN CONSULT REQUEST 1 EACH NOTAPPLIC (09:15)
[2024-06-27 11:41] LABS: Reflex Lactic Add Lactic Reflex
[2024-06-27 12:25] LABS: POC Glucose,Bedside 170 (70-110)
[2024-06-27 12:27] LABS: Lactic Acid Follow Up (RFLX 1) 2.1 mmol/L (0.7-2.1)
--- NOTE | 2024-06-27 13:13 | CA_ITS ---
APPROVED REPORT EXAM: Limited 2D Echocardiogram Culinary Artist: BEN Boyle, RVS Ht: 4 ft 11 in Wt: 131lbs BSA: 1.54 BP: 164/78 mmHg Indications: Effusion check, SVT, CVA, CABG, COPD, CP, Ex-smoker, Palpitations Echo Enhancing Agent Comments: Scanned with patient seated upright in chair M-Mode Dimensions RVDd 1.97 cm (0.9-2.6) LA Diam 3.73 cm (1.9-4.0) LVDd 4.16 cm (3.5-5.7) LVDs 2.94 cm (3.5-5.7) IVSd 1.26 cm (0.6-1.1) PWd 1.00 cm (0.6-1.1) EF (Teich) 56.60% EPSs 1.83 cm FS 29.30% EDV (Teich) 76.80 mL ESV (Teich) 33.30 mL Other Information Study Quality: Fair Conclusion This is a limited TTE to evaluate for pericardial effusion. Limited windows are obtained. The left ventricle is grossly normal in size and function. There is a trivial, anterior pericardial effusion present. No echo indications of tamponade. Compared to prior study from 03/12/2024, the pericardial effusion is smaller in size Electronically signed by : Jacinda Melton MD 06/27/2024 18:32:12
--- NOTE | 2024-06-27 13:56 | P.CONCA_ITS ---
History of Present Illness History of Present Illness Consult date: 06/27/24 Requesting physician: Steven Dao Chief complaint: PALPS, HIGH HR, DIAPHORESIS History of present illness: This is a 70-year-old white female who presented to the emergency department with high heart rate, palpitations and diaphoresis. She states that she woke up abruptly through the night with these complaints. She states that when she went to sleep she felt fine but did have an intermittent cough and a little congestion but did not have any fever or chills. She woke up diaphoretic and felt her heart racing. She woke up her caregiver/family and due to her history of SVT they brought her into the emergency department. The patient was found to be in SVT. She was treated with IV adenosine and metoprolol. She did convert back to sinus rhythm after her second dose of adenosine. This morning she denies any chest pain or pressure. She states that her shortness of breath has significantly improved and she is feeling much better. She denies any lower extremity edema. She denies any fever, chills, nausea, vomiting, diarrhea, PND or orthopnea. She does have a cough that she states that she has had the last several weeks. She thought this was just from this season change. While in the emergency department the patient was also found to have a left lower lobe pneumonia. [facility] Disclaimer: The information contained in this section may have been updated after the patient was seen, as this information can be updated by other users. Medical History (Updated 06/27/24 @ 14:05 by Va Bateman APRN) Pericardial effusion Diabetes mellitus Hyperlipidemia Hypertensive heart disease Hypertension CAD (coronary artery disease) Cataract SVT (supraventricular tachycardia) COPD exacerbation COPD (chronic obstructive pulmonary disease) Respiratory failure with hypoxia History of CVA (cerebrovascular accident) Vomiting Weight loss Lumbar stenosis Thoracic compression fracture Cerebral atrophy Sepsis UTI (urinary tract infection) CAP (community acquired pneumonia) Carotid artery stenosis Tobacco dependence syndrome Coronary arteriosclerosis Surgical History History of coronary artery bypass graft S/P CABG x 3 Family History Other Diabetes Family history of hyperlipidemia Family history of hypertension Parkinsons Social History Smoking Status: Former smoker tobacco type: cigarettes packs per day: 1 alcohol intake: never counseling provided: none substance use type: denies use current occupational status: retired Travel in the last 8 weeks: Inside the [place] household members: family housing: house caffeine: Yes Have you lived/traveled outside [place] in past 30 days?: No Contact w/someone who lives/traveled outside US past 30 days?: No Exposure to someone with infectious disease in past 14 days?: No Do you have a fever (greater than 100.4 F or 38 C)?: No Have you tested positive for COVID-19: No Exposed to someone with COVID-19 in past 14 days?: No Do you have a sore throat?: No Do you have a cough?: No Do you have any weakness?: No Do you have any diarrhea?: No Are you experiencing any unusual bleeding?: No Do you have any muscle aches/pain?: No Do you have any abdominal pain?: No Are you experiencing loss of taste or smell?: No Review of Systems Review of Systems Review of systems:: pertinent systems reviewed and negative unless documented below Constitutional Constitutional: Reports system reviewed and no additional complaints, except as documented, Reports fatigue, Denies fever(s) and Reports lethargy Eyes Eyes: Reports system reviewed and no additional complaints, except as documented ENT Ears, Nose, Mouth, and Throat: Reports system reviewed and no additional complaints, except as documented *Cardiovascular Cardiovascular: Reports system reviewed and no additional complaints, except as documented, Denies chest pain, Reports dyspnea, Reports dyspnea on exertion, Reports palpitations and Reports rapid heart rate *Respiratory Respiratory: Reports system reviewed and no additional complaints, except as documented, Reports chest congestion, Reports cough, Reports dyspnea, Reports dyspnea on exertion and Reports excessive phlegm production *Gastrointestinal Gastrointestinal: Reports system reviewed and no additional complaints, except as documented *Genitourinary Genitourinary: Reports system reviewed and no additional complaints, except as documented *Musculoskeletal Musculoskeletal: Reports system reviewed and no additional complaints, except as documented Integumentary/Breasts Skin/Breast: Reports system reviewed and no additional complaints, except as documented *Neurologic Neurologic: Reports system reviewed and no additional complaints, except as documented Psychiatric Psychiatric: Reports system reviewed and no additional complaints, except as documented Endocrine Endocrine: Reports system reviewed and no additional complaints, except as documented, Reports fatigue and Reports palpitations Hematologic/Lymphatic Hematologic/Lymphatic: Reports system reviewed and no additional complaints, except as documented Allergic/Immunologic Allergic/Immunologic: Reports system reviewed and no additional complaints, except as documented Exam Data for Last 24 hours Vital signs and Labs for Last 24 Hours: Temp Pulse Resp BP Pulse Ox O2 Del Method O2 Flow Rate 97.9 F 78 18 164/78 H 94 L Nasal Cannula 4 06/27/24 12:00 06/27/24 12:00 06/27/24 12:06/27/24 12:00 06/27/24 12:06/27/24 12:00 06/27/24 12:00 Laboratory Results - last 24 hr 06/27/24 04:43: WBC 28.6 H*, RBC 4.53, Hgb 11.3 L, Hct 38.0, MCV 83.9, MCH 24.9 L, MCHC 29.7 L, RDW 18.2 H, Plt Count 426 H, MPV 12.1 H, Neut % (Auto) 77.1, Lymph % (Auto) 15.5, [place] % (Auto) 5.2, Eos % (Auto) 0.9, Baso % (Auto) 0.6, Neut # (Auto) 22.1 H, Lymph # (Auto) 4.4, [place] # (Auto) 1.5 H, Eos # (Auto) 0.3, Baso # (Auto) 0.2, Total Counted 100, Neutrophils % (Manual) 71, Lymphocytes % (Manual) 23, Monocytes % (Manual) 6, Platelet Estimate Slight increase, Hypochromasia 1+, Anisocytosis 1+, Ovalocytes 1+, Sodium 138, Potassium 3.2 L, Chloride 93 L, Carbon Dioxide 28, Anion Gap 20.2 H, BUN 12, Creatinine 0.70, Estimated Creat Clear 45, Estimated GFR 82, Est GFR ( Amer) 99, Glucose 237 H, Calcium 9.3, Phosphorus 3.7, Magnesium 1.4 L, Total Bilirubin 0.4, AST 36, ALT 32, Alkaline Phosphatase 131 H, Troponin I < 0.01, Total Protein 6.4, Albumin 3.7, Globulin 2.7, Albumin/Globulin Ratio 1.4 06/27/24 06:58: Urine Color Yellow, Urine Appearance Clear, Urine pH 6.5, Ur Specific [place] 1.015, Urine Protein Trace, Urine Glucose (UA) Negative, Urine Ketones Trace, Urine Blood Negative, Urine Nitrate Negative, Urine Bilirubin Negative, Urine Urobilinogen 0.2, Ur Leukocyte Esterase Negative, Urine RBC None, Urine WBC Occasional, Ur Squamous Epith Cells 5-10, Urine Bacteria Trace 06/27/24 07:12: VBG pH 7.38, VBG pCO2 48.1, VBG pO2 46.0 H, VBG HCO3 27.8, VBG Total CO2 29.3 H, VBG O2 Saturation 77.7 H, VBG Base Excess 2.7 H, VBG Lactic Acid 3.4 H 06/27/24 07:30: Troponin I 0.06 H 06/27/24 12:00: Lactate 2.1 06/27/24 12:19: POC Glucose 170 H I & O for Last 24 hours: Intake & Output 06/24/24 06/25/24 06/26/24 06/27/24 23:59 23:59 23:59 23:59 Intake Total 2500 / 2500 Output Total 450 / 450 Balance 2049 / 2049 Weight 131 lb Constitutional Constitutional: no acute distress and average body habitus *Routine HEENT Exam Head: Present normocephalic and atraumatic ENT: Present mucous membranes moist *Routine Neck Exam Neck: Present supple, full ROM and normal carotid upstroke; Absent JVD, carotid bruit or lymphadenopathy *Routine Respiratory Exam Respiratory: Present CTA bilaterally, normal respiratory effort, able to speak in complete sentences and symmetric chest movement *Routine Cardiovascular Exam Cardiovascular: Present RRR, Normal S1 and Normal S2; Absent murmur or gallop *Routine Abdominal Exam Abdominal: Present soft and normoactive bowel sounds; Absent tenderness, distended or organomegaly *Routine Extremities Exam Extremities: Present full ROM, pulses intact and normal capillary refill; Absent cyanosis, clubbing or edema *Routine Skin Exam Skin: Present intact and warm; Absent erythema *Routine Neurological Exam Neurological: Present alert, oriented X3 and CN II-XII intact; Absent sensory deficit or motor deficit Routine Psychiatric Exam Psychiatric: Present normal affect Meds Home Medications and Allergies Home Medications ?Medication ?Instructions ?Recorded ?Confirmed ?Type atorvastatin 80 mg tablet 80 mg PO HS 04/05/17 06/27/24 History aspirin 325 mg tablet 325 mg PO DAILY 09/14/17 06/27/24 History isosorbide mononitrate 30 mg 30 mg PO DAILY 03/26/18 06/27/24 History tablet,extended release 24 hr amlodipine 5 mg tablet 5 mg PO DAILY 05/20/19 06/27/24 History cholecalciferol (vitamin D3) 25 25 mcg PO HS 03/13/20 06/27/24 History mcg (1,000 unit) capsule memantine 10 mg tablet 10 mg PO BID 09/18/20 06/27/24 History donepezil 5 mg tablet 5 mg PO DAILY 05/21/21 06/27/24 History multivitamin (Daily Multi-Vitamin 1 tab PO DAILY 12/03/21 06/27/24 History tablet) escitalopram oxalate 10 mg tablet 10 mg PO DAILY 06/17/22 06/27/24 History lisinopril 40 mg tablet 40 mg PO BID 01/21/23 06/27/24 History metformin 1,000 mg tablet 1,000 mg PO BID 01/22/23 06/27/24 History metoprolol succinate 100 mg 100 mg PO DAILY 01/22/23 06/27/24 History tablet,extended release 24 hr pantoprazole 40 mg tablet,delayed 40 mg PO DAILY 02/21/24 06/27/24 History release gabapentin 100 mg capsule 100 mg PO BID 03/11/24 06/27/24 History lorazepam 0.5 mg tablet 0.5 mg PO HS 03/11/24 06/27/24 History furosemide 20 mg tablet 20 mg PO DAILY 30 days #0 tabs 03/13/24 06/27/24 Rx ferrous sulfate 325 mg (65 mg 325 mg PO DAILY 06/27/24 06/27/24 History iron) tablet (FeroSul) magnesium oxide 400 mg (241.3 mg 400 mg PO BID 06/27/24 06/27/24 History magnesium) tablet New Prescriptions to Start Prescriptions: Allergies Allergy/AdvReac Type Severity Reaction Status Date / Time Iodinated Contrast Media Allergy Mild Unknown Verified 04/24/24 13:14 allergy reaction naproxen Allergy Mild Unknown Verified 04/24/24 13:14 allergy reaction Assessment and Plan *Assessment and plan (1) SVT (supraventricular tachycardia): Status: Acute Category: Medical Code(s): I47.10 - Supraventricular tachycardia, unspecified (2) Left lower lobe pneumonia: Status: Acute Qualifiers: Pneumonia type: due to unspecified organism Qualified Code(s): J18.9 - Pneumonia, unspecified organism Category: Medical Code(s): J18.9 - Pneumonia, unspecified organism (3) Sepsis: Status: Acute Qualifiers: Acute respiratory failure type: with hypoxia Sepsis acute organ dysfunction status: with acute organ dysfunction Sepsis type: sepsis due to unspecified organism Severe sepsis acute organ dysfunction type: acute respiratory failure Severe sepsis shock status: without septic shock Qualified Code(s): A41.9 - Sepsis, unspecified organism; R65.20 - Severe sepsis without septic shock; J96.01 - Acute respiratory failure with hypoxia Category: Medical Code(s): A41.9 - Sepsis, unspecified organism (4) Respiratory failure with hypoxia: Status: Acute Qualifiers: Chronicity: acute on chronic Qualified Code(s): J96.21 - Acute and chronic respiratory failure with hypoxia Category: Medical Code(s): J96.91 - Respiratory failure, unspecified with hypoxia (5) Leukocytosis: Status: Acute Qualifiers: Leukocytosis type: unspecified Qualified Code(s): D72.829 - Elevated white blood cell count, unspecified Category: Medical Code(s): D72.829 - Elevated white blood cell count, unspecified (6) CAD (coronary artery disease): Status: Acute Qualifiers: Coronary Disease-Associated Artery/Lesion type: [place] artery [place] vs. transplanted heart: [place] heart Associated angina: without angina Qualified Code(s): I25.10 - Atherosclerotic heart disease of [place] coronary artery without angina pectoris Category: Medical Code(s): I25.10 - Atherosclerotic heart disease of [place] coronary artery without angina pectoris (7) Hypertension: Status: Acute Qualifiers: Hypertension type: primary hypertension Qualified Code(s): I10 - Essential (primary) hypertension Category: Medical Code(s): I10 - Essential (primary) hypertension (8) Hyperlipidemia: Status: Acute Qualifiers: Hyperlipidemia type: mixed hyperlipidemia Qualified Code(s): E78.2 - Mixed hyperlipidemia Category: Medical Code(s): E78.5 - Hyperlipidemia, unspecified (9) Diabetes mellitus: Status: Acute Qualifiers: Diabetes mellitus type: type 2 Diabetes mellitus complication status: without complication Diabetes mellitus long term acute care registered nurse insulin use: without long term acute care registered nurse use Qualified Code(s): E11.9 - Type 2 diabetes mellitus without complications Category: Medical Code(s): E11.9 - Type 2 diabetes mellitus without complications (10) Pericardial effusion: Status: Acute Category: Medical Code(s): I31.39 - Other pericardial effusion (noninflammatory) Plan Plan: 1. The patient was admitted to the hospital after being found in SVT. The man ent was treated with adenosine and IV metoprolol. She did convert after the second dose of IV adenosine. She remains in sinus rhythm at this time. 2. Her SVT was most likely from the strain of her left lower lobe pneumonia. Continue metoprolol. 3. The patient was found to have a left lower lobe pneumonia. She is getting IV antibiotics. Will defer to hospitalist/pulmonology. 4. The patient did have an elevated troponin. This is most likely a type II non-STEMI from her SVT and left lower lobe pneumonia. No plans for invasive left cardiac catheterization at this time. However, she would benefit from further ischemic evaluation on an outpatient basis once she has recovered from pneumonia. 5. Previous echocardiogram in February 2024 showed a small pericardial effusion. Will repeat a limited echocardiogram at this time to evaluate her LV function and pericardial effusion. 6. Coronary artery disease is likely stable. Continue aspirin 81 mg daily and isosorbide 7. Her blood pressure is elevated. Restart her amlodipine, lisinopril, and metoprolol. 8. Her LDL goal is less than 55. Continue her statin. Will get a liver and lipid panel in the morning. 9. The patient is diabetic. She will need aggressive control of her diabetes. Will defer this to the hospitalist. 10. Further recommendations will be made pending the patient's response to treatment and the results of her echocardiogram today. Thank you for the opportunity to help participate in the care of this patient. All recommendations and orders are per Dr. Melton.
[2024-06-27 14:05] LABS: Reflex Lactic (2 hrs) Add Lactic Reflex
[2024-06-27 14:48] LABS: Lactic Acid Follow up (RFLX 2) 1.2 mmol/L (0.7-2.1)
--- NOTE | 2024-06-27 15:58 | HMH.PTEV ---
Physical Therapy Evaluation Rehab PT IP Evaluation Start: 06/27/24 12:18 Freq: ONCE Status: Active Protocol: Document 06/27/24 15:33 FRANCHESCA (Rec: 06/27/24 15:58 PHORPRANAY [id number]) Subjective/History History History 73-year-old white female who presented to the emergency department with high heart rate, palpitations and diaphoresis. She states that she woke up abruptly through the night with these complaints. She states that when she went to sleep she felt fine but did have an intermittent cough and a little congestion but did not have any fever or chills. She woke up diaphoretic and felt her heart racing. She woke up her caregiver/family and due to her history of SVT they brought her into the emergency department. Pt lives with family (3 daughters who rotate taking care of her in their homes), No steps to enter any of the homes she lives in, she generally requires assistance with all ADLs, requires assistance with all transfers, and is non-ambulatory using a w/c for all mobility. 2 of her daughters are present during examination. Subjective Subjective Pt reports no new c/o at this time, but endorses feeling weak in general. [facility] How much help from another person do you currently need... Turning from your back to your side A lot while in a flat bed without using bedrails? Moving from lying on back to sitting on A lot the side of a flat bed without using bedrails? Moving to and from a bed to a chair ( A lot including a wheelchair)? Standing up from a chair using your arms A lot ? (e.g., wheelchair, bedside chair) Walking in hospital room? Total Climbing 3-5 steps with a railing? Total Mobility Score 10 Mobility Level [facility] Mobility Calculator Mobility 4 Move to chair/ commode Rehab PT IP Eval Objective Appearance Patient Behavior Appropriate Patient Orientation Person,Place Difficulty following instructions none Speech Pattern Clear Ambulation Patient Able to Ambulate No Balance Ability to Arise Able, uses arms to help Sitting Balance Leans or slides in chair Standing Balance Unsteady Dynamic Sitting Balance Ability Poor Dynamic Standing Balance Ability Zero Transfers Bed Transfer Ability Maximum x 1 (75% assist) Chair Transfer Ability Maximum x 1 (75% assist) Sit to Stand Bed Transfer Ability Maximum x 1 (75% assist) Sit to Stand Chair Transfer Ability Maximum x 1 (75% assist) Rehab PT IP prob,goals,plan Problems Date of Evaluation: 06/27/24 PT IP Problems Bed Mobility,Transfers Rehab Potential Rehab Potential Fair Plan PT Intervention Plan Bed Mobility,Transfers PT Plan Frequency Daily Duration LOS Discharge Goals Bed Transfer Ability Moderate x 2 (50% assist) Sit to Stand Chair Transfer Ability Moderate x 2 (50% assist) Discharge Plan PT Discharge Plan Pt is currently appropriate to return home once medically stable for d/c. Recommend Home Health if family prefers once returned to home. Skilled inpatient acute therapy is indicated to continue transfer training and strengthening in order to maintain transfer abilities at home. Eval Complexity Eval Charge Codes 58539 - High Complexity PHYSICIAN CERTIFICATION: I certify the specified therapy services for Margarita Stone are required, authorized, and reviewed every 30 days.
--- NOTE | 2024-06-27 17:57 | PC.NURSE ---
a&ox4. requiring 4LNC to maintain o2 >90%. sputum collected and sent to lab this shift. pt seen by PT and is a max assist. abx given in the ER per may. no complaints of pain. purewick in place. productive cough present. family at bedside and very pleasant and attentive. no needs at this time. call light within reach.
[2024-06-27 20:06] LABS: POC Glucose,Bedside 144 (70-110)
[2024-06-27] MEDS: MEMANTINE 10MG TABLET 10 MG PO (20:46)
[2024-06-27] MEDS: LORazepam 0.5MG TABLET 0.5 MG PO (20:46)
[2024-06-27] MEDS: GABAPENTIN 100MG CAPSULE 100 MG PO (20:46)
[2024-06-27] MEDS: ATORVASTATIN 40MG TABLET 80 MG PO (20:47)
[2024-06-28] VITALS: BP 172/76; PULSE 80; PULSE 83; RESP 20; TEMP 36.6; O2SAT 96
--- NOTE | 2024-06-28 03:26 | PC.NURSE ---
Patient weaned to 3L NC at this time, pulse ox reading 97%.
--- NOTE | 2024-06-28 03:41 | PC.NURSE ---
Pulse ox reading 96%, weaned 2L NC at this time. Pulse ox reading 95%.
[2024-06-28 04:00] VITALS: BP 179/83; PULSE 65; PULSE 88; RESP 16; TEMP 36.8; O2SAT 95; BMI 25.0
--- NOTE | 2024-06-28 06:33 | PC.NURSE ---
This RN took over care at 0100. Patient has rested well. Weaned O2 to 2L NC per previous notes. No complaints from patient. IV abx. NSR on tele. Uses [employer]. Call light in reach. Bed alarm on.
[2024-06-28 06:56] LABS: Basophils # 0.1 K/mm3 (0-0.2); Basophils % 0.5 % (0.1-2.0); Eosinophils # 0.1 K/mm3 (0.0-0.4); Eosinophils % 0.9 % (0.1-12.0); Hematocrit 30.8 % (37.0-47.0); Hemoglobin 9.4 g/dL (12.2-16.2); Lymphocytes # 1.8 K/mm3 (0.7-4.5); Lymphocytes % 13.8 % (10-50); Mean Corpuscular HGB Conc 30.5 g/dL (31.8-35.4); Mean Corpuscular Hemoglobin 25.5 pg (27.0-31.2); Mean Corpuscular Volume 83.5 fl (81-99); Mean Platelet Volume 11.1 fl (7.4-10.4); Monocytes # 0.8 K/mm3 (0.1-1.0); Monocytes % 6.4 % (1.7-9.3); Neutrophils # 10.1 K/mm3 (1.8-7.8); Neutrophils % 78.1 % (37.0-80.0); Platelet Count 243 K/mm3 (142-424); Red Blood Count 3.69 M/mm3 (4.20-5.40); Red Cell Distribution Width 18.9 % (11.5-17.5)
[2024-06-28 07:02] LABS: Albumin Level 3.3 g/dl (3.5-5.0); Chloride 102 mmol/L (98-107); Potassium 4.8 mmoL/L (3.5-5.1); Sodium 136 mmol/L (136-145)
[2024-06-28 07:04] LABS: Bilirubin,Unconjugated 0.5 mg/dL (0.0-1.1); Blood Urea Nitrogen 15 mg/dl (7-17); Creatinine Clearance Estimated 46 mL/min (50-200); Estimated Glomerular Filt Rate 98 ml/min (>60); GFR (African American) 119 ML/MIN (>60)
[2024-06-28 07:05] LABS: Alanine Aminotransferase 20 U/L (12-78); Alkaline Phosphatase 105 U/L (38-126); Anion Gap 7.8 mEq/L (5-15); Aspartate Amino Transferase 60 U/L (14-36); Bilirubin,Direct 0.2 mg/dl (0.0-0.4); Bilirubin,Indirect 0.5 mg/dL (0.0-0.9); Bilirubin,Total 0.7 mg/dl (0.2-1.3); Carbon Dioxide 31 mmol/L (22.0-30.0); Chol/HDL Ratio 2.5 (1-3.5); Cholesterol 108 mg/dl (140-200); Glucose 124 mg/dl (74-100); HDL Cholesterol 43 mg/dl (40-60); Total Protein,Serum 6.1 g/dl (6.3-8.2); Triglycerides 92 mg/dl (30-150); VLDL Cholesterol 18 mg/dL (0-40)
[2024-06-28 07:31] LABS: Hemoglobin A1C 6.1 % (4.0-6.0)
[2024-06-28 08:00] VITALS: BP 121/63; PULSE 80; PULSE 93; RESP 16; TEMP 36.7; O2SAT 94
[2024-06-28] MEDS: ISOSORBIDE MONO 30MG TAB.ER.24H 30 MG PO (08:18)
[2024-06-28] MEDS: MEMANTINE 10MG TABLET 10 MG PO (08:18)
[2024-06-28] MEDS: GABAPENTIN 100MG CAPSULE 100 MG PO (08:18)
[2024-06-28] MEDS: PANTOPRAZOLE 40MG TABLET 40 MG PO (08:18)
[2024-06-28] MEDS: LISINOPRIL 20MG TABLET 40 MG PO (08:19)
[2024-06-28] MEDS: DONEPEZIL 5MG TAB 5 MG PO (08:19)
[2024-06-28] MEDS: ESCITALOPRAM 10MG TABLET 10 MG PO (08:19)
[2024-06-28] MEDS: AMLODIPINE 5MG TABLET 5 MG PO (08:19)
[2024-06-28] MEDS: ENOXAPARIN 40MG/0.4ML SYRINGE 40 MG SUBCUT (08:20)
[2024-06-28] MEDS: METOPROLOL SUCCINATE XL 100MG TABLET 100 MG PO (08:20)
[2024-06-28] MEDS: CEFEPIME HCL 2 GM in 0.9 % SODIUM CHLORIDE 100 ML IV (08:20)
[2024-06-28 09:05] LABS: Alanine Aminotransferase 19 U/L (12-78); Albumin Level 3.2 g/dl (3.5-5.0); Albumin/Globulin Ratio 1.1 (1.1-1.8); Alkaline Phosphatase 95 U/L (38-126); Anion Gap 10.8 mEq/L (5-15); Aspartate Amino Transferase 50 U/L (14-36); Bilirubin,Total 0.7 mg/dl (0.2-1.3); Blood Urea Nitrogen 15 mg/dl (7-17); Calcium 8.8 mg/dl (8.4-10.2); Carbon Dioxide 30 mmol/L (22.0-30.0); Chloride 101 mmol/L (98-107); Creatinine Clearance Estimated 46 mL/min (50-200); Estimated Glomerular Filt Rate 98 ml/min (>60); GFR (African American) 119 ML/MIN (>60); Globulin 2.8 g/dL (1.3-3.2); Glucose 119 mg/dl (74-100); Magnesium 2.6 mg/dl (1.6-2.3); Potassium 4.8 mmoL/L (3.5-5.1); Sodium 137 mmol/L (136-145)
[2024-06-28] MEDS: VANCOMYCIN HCL 1,000 MG in 0.9 % SODIUM CHLORIDE 250 ML 125 MG IV (09:48)
--- NOTE | 2024-06-28 10:37 | P.DS_ITS ---
General Admission date:: 06/27/24 Discharge date: 06/28/24 HPI HPI HPI: Ms. Stone is a 73-year-old female history of CVA with residual right sided deficits, CABG, CHF, who presented with acute hypoxia earlier today. Normally wears 2-1/2 L of oxygen daily. On arrival to the ED was found to be in SVT. Daughter state they brought her in because she was diaphoretic and feeling short of breath. States her heart was racing. Patient was cardioverted with adenosine and rate controlled with metoprolol in the ED. On further workup, found to be septic with elevated white count, tachycardia, pneumonia on chest imaging. Increased oxygen requirement of 3 to 4 L from her baseline 2.5L. Count elevated at 28, chest imaging with left lower lobe pneumonia. Medicine was consulted for admission and further management. On arrival to the floor, patient is in minimal distress. Satting low 90s on 4 L oxygen. Family at bedside helps answer questions and review of systems. Patient denies any chest pain at this time. Crackles on exam and left lower lobe. Afebrile at this time. Cardiology consulted to assist with care Hospital Course Hospital Course Hospital Course: 73-year-old female with history of CHF, CABG, CAD, CVA, diabetes, dementia. Presented with acute worsening shortness of breath. Found to be in SVT with sepsis and pneumonia. Discussed case with ER physician, request admission for treatment of SVT, medication adjustments, and treatment of sepsis and pneumonia. I agreed to admit for further care. PSI/port score of 93, class IV risk. Due to age, female, CVA history, heart rate greater than 125 on presentation, CHF. Initially on 4 L oxygen, weaned to 2 L by morning. At baseline oxygen requirement. Continue treatment for pneumonia. No further episodes of SVT. Stable to discharge home with further management as an outpatient. Problems addressed as follows: Acute on chronic hypoxemic respiratory failure Left lower lobe pneumonia pneumonia -Presented with respiratory distress. CT per my review showed left lower lobe consolidation consistent with pneumonia. Also had some pulmonary edema. No significant effusions. White count elevated at 28,000, improved to 13 by morning of discharge. Initially treated with cefepime and vancomycin. Weaned to 2 cefdinir to complete 7 days of therapy. Weaned to 2 L oxygen which is her chronic baseline usage. Overall stable. Feeling better. Afebrile. SVT Type II NSTEMI Hypertension -Cardiology consulted to assist with care. Converted with adenosine and IV metoprolol. Remains in sinus rhythm at this time. Continue metoprolol. No plans for invasive left heart cath at this time. Consider further ischemic eval as an outpatient once pneumonia has resolved. Reviewed previous echo from February 2024. Had small pericardial effusion at that time, repeat echo improved. Continue aspirin 81 mg daily and isosorbide for CAD. At discharge, resume amlodipine, lisinopril, metoprolol. Cardiology evaluated, Symptoms most likely due to her respiratory infection rather than CHF. Diabetes: A1c 6.1 in February. Glucose 237 on arrival. Repeat A1c 6.1. Resume home regimen at discharge. History of CVA: continue Lipitor 80 mg daily for hyperlipidemia, continue aspirin 325 mg daily Depression: Continue Lexapro 10 mg daily Vascular dementia: Continue donepezil 5 g daily memantine 10 mg twice daily. Total time spent on discharge 32 minutes in counseling, documentation, chart review, and direct care with patient. Exam Data for Last 24 hours Vital signs and Labs for Last 24 Hours: Temp Pulse Resp BP Pulse Ox O2 Del Method O2 Flow Rate 98.1 F 93 H 16 121/63 94 L Nasal Cannula 2 06/28/24 08:00 06/28/24 08:00 06/28/24 08:00 06/28/24 08:00 06/28/24 08:00 06/28/24 09:00 06/28/24 09:00 Laboratory Results - last 24 hr 06/27/24 12:00: Lactate 2.1 06/27/24 12:19: POC Glucose 170 H 06/27/24 14:24: Lactate 1.2 06/27/24 19:50: POC Glucose 144 H 06/28/24 06:30: WBC 13.0 H D, RBC 3.69 L, Hgb 9.4 L, Hct 30.8 L, MCV 83.5, MCH 25.5 L, MCHC 30.5 L, RDW 18.9 H, Plt Count 243 D, MPV 11.1 H, Neut % (Auto) 78.1, Lymph % (Auto) 13.8, [place] % (Auto) 6.4, Eos % (Auto) 0.9, Baso % (Auto) 0.5, Neut # (Auto) 10.1 H, Lymph # (Auto) 1.8, [place] # (Auto) 0.8, Eos # (Auto) 0.1, Baso # (Auto) 0.1, Sodium 136 06/28/24 06:30: Sodium 137, Potassium 4.8 D 06/28/24 06:30: Potassium 4.8, Chloride 102 06/28/24 06:30: Chloride 101, Carbon Dioxide 31 H 06/28/24 06:30: Carbon Dioxide 30, Anion Gap 7.8 06/28/24 06:30: Anion Gap 10.8, BUN 15 06/28/24 06:30: BUN 15, Creatinine 0.60 06/28/24 06:30: Creatinine 0.60, Estimated Creat Clear 46 06/28/24 06:30: Estimated Creat Clear 46, Estimated GFR 98 06/28/24 06:30: Estimated GFR 98, Est GFR ( Amer) 119 D 06/28/24 06:30: Est GFR ( Amer) 119, Glucose 124 H 06/28/24 06:30: Glucose 119 H, Hemoglobin A1c 6.1 H, Calcium 9.0 06/28/24 06:30: Calcium 8.8, Magnesium 2.6 H D, Total Bilirubin 0.7 06/28/24 06:30: Total Bilirubin 0.7, Direct Bilirubin 0.2, Conjugated Bilirubin 0.0, Indirect Bilirubin 0.5, Unconjugated Bilirubin 0.5, AST 60 H D 06/28/24 06:30: AST 50 H, ALT 20 D 06/28/24 06:30: ALT 19, Alkaline Phosphatase 105 06/28/24 06:30: Alkaline Phosphatase 95, Total Protein 6.1 L 06/28/24 06:30: Total Protein 6.0 L, Albumin 3.3 L D 06/28/24 06:30: Albumin 3.2 L, Globulin 2.8, Albumin/Globulin Ratio 1.1, Triglycerides 92, Cholesterol 108 L, LDL Cholesterol Direct 38.70 L, VLDL Cholesterol 18, HDL Cholesterol 43, Cholesterol/HDL Ratio 2.5 I & O for Last 24 hours: Intake & Output 06/25/24 06/26/24 06/27/24 06/28/24 23:59 23:59 23:59 23:59 Intake Total 2840 / 2840 360 / 360 Output Total 925 / 925 500 / 500 Balance 5 / 1914 -140 / -140 Weight 59.421 kg 57.969 kg Microbiology Reports for the Last 24 Hours: Microbiology 06/27/24 09:11 Blood Blood Culture - Preliminary NO GROWTH AFTER 24 HOURS 06/27/24 09:09 Blood Blood Culture - Preliminary NO GROWTH AFTER 24 HOURS 06/27/24 09:59 Sputum - Expectorated Sputum Gram Stain - Final Constitutional Constitutional: no acute distress, average body habitus, chronically ill appearing and cooperative *Routine HEENT Exam Head: Present normocephalic and atraumatic ENT: Present mucous membranes moist *Routine Neck Exam Neck: Present supple and full ROM; Absent JVD, carotid bruit or lymphadenopathy *Routine Respiratory Exam Respiratory: Present CTA bilaterally, normal respiratory effort, able to speak in complete sentences and symmetric chest movement; Absent rhonchi, wheezes or crackles *Routine Cardiovascular Exam Cardiovascular: Present Normal S1, Normal S2 and tachycardia; Absent murmur or gallop *Routine Abdominal Exam Abdominal: Present soft and normoactive bowel sounds; Absent tenderness, distended or organomegaly *Routine Rectal Exam Patient deferred: visual exam *Routine Exam Patient deferred: external exam *Routine Extremities Exam Extremities: Present full ROM, pulses intact and normal capillary refill; Absent cyanosis, clubbing or edema *Routine Skin Exam Skin: Present intact and warm; Absent erythema *Routine Neurological Exam Neurological: Present alert, oriented X3 and CN II-XII intact Routine Psychiatric Exam Psychiatric: Present normal affect Results Data Completed and Pending Labs on day of discharge: Labs from last 24 hours 06/28/24 06/28/24 06/28/24 06:30 06:30 06:30 WBC RBC Hgb Hct MCV MCH MCHC RDW Plt Count MPV Neut % (Auto) Lymph % (Auto) [place] % (Auto) Eos % (Auto) Baso % (Auto) Neut # (Auto) Lymph # (Auto) [place] # (Auto) Eos # (Auto) Baso # (Auto) Sodium Potassium Chloride Carbon Dioxide Anion Gap BUN Creatinine Estimated Creat Clear Estimated GFR Est GFR ( Amer) Glucose POC Glucose Hemoglobin A1c Lactate Calcium Magnesium Total Bilirubin Direct Bilirubin Conjugated Bilirubin Indirect Bilirubin Unconjugated Bilirubin AST ALT Alkaline Phosphatase 95 Total Protein 6.0 L 6.1 L Albumin 3.2 L 3.3 L D Globulin 2.8 Albumin/Globulin Ratio 1.1 Triglycerides 92 Cholesterol 108 L LDL Cholesterol Direct 38.70 L VLDL Cholesterol 18 HDL Cholesterol 43 Cholesterol/HDL Ratio 2.5 06/28/24 06/28/24 06/28/24 06:30 06:30 06:30 WBC RBC Hgb Hct MCV MCH MCHC RDW Plt Count MPV Neut % (Auto) Lymph % (Auto) [place] % (Auto) Eos % (Auto) Baso % (Auto) Neut # (Auto) Lymph # (Auto) [place] # (Auto) Eos # (Auto) Baso # (Auto) Sodium Potassium Chloride Carbon Dioxide Anion Gap BUN Creatinine Estimated Creat Clear Estimated GFR Est GFR ( Amer) Glucose POC Glucose Hemoglobin A1c Lactate Calcium Magnesium Total Bilirubin 0.7 Direct Bilirubin 0.2 Conjugated Bilirubin 0.0 Indirect Bilirubin 0.5 Unconjugated Bilirubin 0.5 AST 50 H 60 H D ALT 19 20 D Alkaline Phosphatase 105 Total Protein Albumin Globulin Albumin/Globulin Ratio Triglycerides Cholesterol LDL Cholesterol Direct VLDL Cholesterol HDL Cholesterol Cholesterol/HDL Ratio 06/28/24 06/28/24 06/28/24 06:30 06:30 06:30 WBC RBC Hgb Hct MCV MCH MCHC RDW Plt Count MPV Neut % (Auto) Lymph % (Auto) [place] % (Auto) Eos % (Auto) Baso % (Auto) Neut # (Auto) Lymph # (Auto) [place] # (Auto) Eos # (Auto) Baso # (Auto) Sodium Potassium Chloride Carbon Dioxide Anion Gap BUN Creatinine Estimated Creat Clear Estimated GFR Est GFR ( Amer) 119 Glucose 119 H 124 H POC Glucose Hemoglobin A1c 6.1 H Lactate Calcium 8.8 9.0 Magnesium 2.6 H D Total Bilirubin 0.7 Direct Bilirubin Conjugated Bilirubin Indirect Bilirubin Unconjugated Bilirubin AST ALT Alkaline Phosphatase Total Protein Albumin Globulin Albumin/Globulin Ratio Triglycerides Cholesterol LDL Cholesterol Direct VLDL Cholesterol HDL Cholesterol Cholesterol/HDL Ratio 06/28/24 06/28/24 06/28/24 06:30 06:30 06:30 WBC RBC Hgb Hct MCV MCH MCHC RDW Plt Count MPV Neut % (Auto) Lymph % (Auto) [place] % (Auto) Eos % (Auto) Baso % (Auto) Neut # (Auto) Lymph # (Auto) [place] # (Auto) Eos # (Auto) Baso # (Auto) Sodium Potassium Chloride Carbon Dioxide Anion Gap BUN Creatinine 0.60 Estimated Creat Clear 46 46 Estimated GFR 98 98 Est GFR ([facility] Amer) 119 D Glucose POC Glucose Hemoglobin A1c Lactate Calcium Magnesium Total Bilirubin Direct Bilirubin Conjugated Bilirubin Indirect Bilirubin Unconjugated Bilirubin AST ALT Alkaline Phosphatase Total Protein Albumin Globulin Albumin/Globulin Ratio Triglycerides Cholesterol LDL Cholesterol Direct VLDL Cholesterol HDL Cholesterol Cholesterol/HDL Ratio 06/28/24 06/28/24 06/28/24 06:30 06:30 06:30 WBC RBC Hgb Hct MCV MCH MCHC RDW Plt Count MPV Neut % (Auto) Lymph % (Auto) [place] % (Auto) Eos % (Auto) Baso % (Auto) Neut # (Auto) Lymph # (Auto) [place] # (Auto) Eos # (Auto) Baso # (Auto) Sodium Potassium Chloride Carbon Dioxide 30 Anion Gap 10.8 7.8 BUN 15 15 Creatinine 0.60 Estimated Creat Clear Estimated GFR Est GFR ([facility] Amer) Glucose POC Glucose Hemoglobin A1c Lactate Calcium Magnesium Total Bilirubin Direct Bilirubin Conjugated Bilirubin Indirect Bilirubin Unconjugated Bilirubin AST ALT Alkaline Phosphatase Total Protein Albumin Globulin Albumin/Globulin Ratio Triglycerides Cholesterol LDL Cholesterol Direct VLDL Cholesterol HDL Cholesterol Cholesterol/HDL Ratio 06/28/24 06/28/24 06/28/24 06:30 06:30 06:30 WBC RBC Hgb Hct MCV MCH MCHC RDW Plt Count MPV Neut % (Auto) Lymph % (Auto) [place] % (Auto) Eos % (Auto) Baso % (Auto) Neut # (Auto) Lymph # (Auto) [place] # (Auto) Eos # (Auto) Baso # (Auto) Sodium 137 Potassium 4.8 4.8 D Chloride 101 102 Carbon Dioxide 31 H Anion Gap BUN Creatinine Estimated Creat Clear Estimated GFR Est GFR ([facility] Amer) Glucose POC Glucose Hemoglobin A1c Lactate Calcium Magnesium Total Bilirubin Direct Bilirubin Conjugated Bilirubin Indirect Bilirubin Unconjugated Bilirubin AST ALT Alkaline Phosphatase Total Protein Albumin Globulin Albumin/Globulin Ratio Triglycerides Cholesterol LDL Cholesterol Direct VLDL Cholesterol HDL Cholesterol Cholesterol/HDL Ratio 06/28/24 06/27/24 06/27/24 06:30 19:50 14:24 WBC 13.0 H D RBC 3.69 L Hgb 9.4 L Hct 30.8 L MCV 83.5 MCH 25.5 L MCHC 30.5 L RDW 18.9 H Plt Count 243 D MPV 11.1 H Neut % (Auto) 78.1 Lymph % (Auto) 13.8 [place] % (Auto) 6.4 Eos % (Auto) 0.9 Baso % (Auto) 0.5 Neut # (Auto) 10.1 H Lymph # (Auto) 1.8 [place] # (Auto) 0.8 Eos # (Auto) 0.1 Baso # (Auto) 0.1 Sodium 136 Potassium Chloride Carbon Dioxide Anion Gap BUN Creatinine Estimated Creat Clear Estimated GFR Est GFR ( Amer) Glucose POC Glucose 144 H Hemoglobin A1c Lactate 1.2 Calcium Magnesium Total Bilirubin Direct Bilirubin Conjugated Bilirubin Indirect Bilirubin Unconjugated Bilirubin AST ALT Alkaline Phosphatase Total Protein Albumin Globulin Albumin/Globulin Ratio Triglycerides Cholesterol LDL Cholesterol Direct VLDL Cholesterol HDL Cholesterol Cholesterol/HDL Ratio 06/27/24 06/27/24 12:19 12:00 WBC RBC Hgb Hct MCV MCH MCHC RDW Plt Count MPV Neut % (Auto) Lymph % (Auto) [place] % (Auto) Eos % (Auto) Baso % (Auto) Neut # (Auto) Lymph # (Auto) [place] # (Auto) Eos # (Auto) Baso # (Auto) Sodium Potassium Chloride Carbon Dioxide Anion Gap BUN Creatinine Estimated Creat Clear Estimated GFR Est GFR ( Amer) Glucose POC Glucose 170 H Hemoglobin A1c Lactate 2.1 Calcium Magnesium Total Bilirubin Direct Bilirubin Conjugated Bilirubin Indirect Bilirubin Unconjugated Bilirubin AST ALT Alkaline Phosphatase Total Protein Albumin Globulin Albumin/Globulin Ratio Triglycerides Cholesterol LDL Cholesterol Direct VLDL Cholesterol HDL Cholesterol Cholesterol/HDL Ratio Preliminary micro results at discharge 06/27/24 09:11 Blood Culture - Preliminary Blood NO GROWTH AFTER 24 HOURS 06/27/24 09:09 Blood Culture - Preliminary Blood NO GROWTH AFTER 24 HOURS DS: Diagnosis Discharge Diagnosis (1) Sepsis: Status: Acute Code(s): A41.9 - Sepsis, unspecified organism Qualifiers: Acute respiratory failure type: with hypoxia Sepsis acute organ dysfunction status: with acute organ dysfunction Sepsis type: sepsis due to unspecified organism Severe sepsis acute organ dysfunction type: acute respiratory failure Severe sepsis shock status: without septic shock Qualified Code(s): A41.9 - Sepsis, unspecified organism; R65.20 - Severe sepsis without septic shock; J96.01 - Acute respiratory failure with hypoxia (2) Left lower lobe pneumonia: Status: Acute Code(s): J18.9 - Pneumonia, unspecified organism Qualifiers: Pneumonia type: due to unspecified organism Qualified Code(s): J18.9 - Pneumonia, unspecified organism (3) SVT (supraventricular tachycardia): Status: Acute Code(s): I47.10 - Supraventricular tachycardia, unspecified (4) Acute hypoxemic respiratory failure: Status: Acute Code(s): J96.01 - Acute respiratory failure with hypoxia (5) CHF exacerbation: Status: Acute Code(s): I50.9 - Heart failure, unspecified (6) Pneumonia: Status: Acute Code(s): J18.9 - Pneumonia, unspecified organism (7) Acute exacerbation of chronic obstructive pulmonary disease: Status: Acute Code(s): J44.1 - Chronic obstructive pulmonary disease with (acute) exacerbation (8) CAD (coronary artery disease): Status: Acute Code(s): I25.10 - Atherosclerotic heart disease of [place] coronary artery without angina pectoris Qualifiers: Associated angina: without angina Coronary Disease-Associated Artery/Lesion type: [place] artery [place] vs. transplanted heart: [place] heart Qualified Code(s): I25.10 - Atherosclerotic heart disease of [place] coronary artery without angina pectoris (9) Diabetes type 2, controlled: Status: Acute Code(s): E11.9 - Type 2 diabetes mellitus without complications (10) Diastolic CHF: Status: Acute Code(s): I50.30 - Unspecified diastolic (congestive) heart failure (11) Vascular dementia: Status: Acute Code(s): F01.50 - Vascular dementia, unspecified severity, without behavioral disturbance, psychotic disturbance, mood disturbance, and anxiety (12) History of CVA (cerebrovascular accident): Status: Chronic Code(s): Z86.73 - Personal history of transient ischemic attack (TIA), and cerebral infarction without residual deficits Meds Home Medications and Allergies Home Medications ?Medication ?Instructions ?Recorded ?Confirmed ?Type atorvastatin 80 mg tablet 80 mg PO HS 04/05/17 06/27/24 History aspirin 325 mg tablet 325 mg PO DAILY 09/14/17 06/27/24 History isosorbide mononitrate 30 mg 30 mg PO DAILY 03/26/18 06/27/24 History tablet,extended release 24 hr amlodipine 5 mg tablet 5 mg PO DAILY 05/20/19 06/27/24 History cholecalciferol (vitamin D3) 25 25 mcg PO HS 03/13/20 06/27/24 History mcg (1,000 unit) capsule memantine 10 mg tablet 10 mg PO BID 09/18/20 06/27/24 History donepezil 5 mg tablet 5 mg PO DAILY 05/21/21 06/27/24 History multivitamin (Daily Multi-Vitamin 1 tab PO DAILY 12/03/21 06/27/24 History tablet) escitalopram oxalate 10 mg tablet 10 mg PO DAILY 06/17/22 06/27/24 History lisinopril 40 mg tablet 40 mg PO BID 01/21/23 06/27/24 History metformin 1,000 mg tablet 1,000 mg PO BID 01/22/23 06/27/24 History metoprolol succinate 100 mg 100 mg PO DAILY 01/22/23 06/27/24 History tablet,extended release 24 hr pantoprazole 40 mg tablet,delayed 40 mg PO DAILY 02/21/24 06/27/24 History release gabapentin 100 mg capsule 100 mg PO BID 03/11/24 06/27/24 History lorazepam 0.5 mg tablet 0.5 mg PO HS 03/11/24 06/27/24 History furosemide 20 mg tablet 20 mg PO DAILY 30 days #0 tabs 03/13/24 06/27/24 Rx ferrous sulfate 325 mg (65 mg 325 mg PO DAILY 06/27/24 06/27/24 History iron) tablet (FeroSul) magnesium oxide 400 mg (241.3 mg 400 mg PO BID 06/27/24 06/27/24 History magnesium) tablet cefdinir 300 mg capsule 300 mg PO BID 5 days #10 caps 06/28/24 Rx New Prescriptions to Start Prescriptions: Steven Miranda Allergies Allergy/AdvReac Type Severity Reaction Status Date / Time Iodinated Contrast Media Allergy Mild Unknown Verified 04/24/24 13:14 allergy reaction naproxen Allergy Mild Unknown Verified 04/24/24 13:14 allergy reaction Discharge Plan Disposition Patient Disposition: Home, Self-Care Condition: Fair Discharge Order Discharge Orders: Discharge Order (Routine); Ordered 06/28/24 Ordered By: Steven Dao Follow up Plan Follow up with: Roe Gleason MD [Primary Care Provider] - 07/03/24 9:00 am Prescriptions/Medication Reconciliation: New cefdinir 300 mg capsule 300 mg PO BID 5 Days Qty: 10 0RF Continued atorvastatin 80 mg tablet 80 mg PO HS aspirin 325 mg tablet 325 mg PO DAILY multivitamin [Daily Multi-Vitamin] Tablet 1 tab PO DAILY escitalopram oxalate 10 mg tablet 10 mg PO DAILY Patient Comments: TAKE 1 TABLET BY MOUTH ONCE DAILY. pantoprazole 40 mg tablet,delayed release (DR/EC) 40 mg PO DAILY Patient Comments: ONE (1) TAB(S) ORALLY ONCE A DAY 90 DAYS cholecalciferol (vitamin D3) 25 mcg (1,000 unit) capsule 25 mcg PO HS memantine 10 mg tablet 10 mg PO BID Patient Comments: TAKE 1 TABLET BY MOUTH TWICE DAILY. donepezil 5 mg tablet 5 mg PO DAILY isosorbide mononitrate 30 MG tablet 30 mg PO DAILY lisinopril 40 mg tablet 40 mg PO BID metformin 1,000 mg tablet 1,000 mg PO BID Patient Comments: TAKE 1 TABLET BY MOUTH TWICE DAILY metoprolol succinate 100 mg tablet extended release 24 hr 100 mg PO DAILY Patient Comments: TAKE 1 TABLET BY MOUTH ONCE DAILY gabapentin 100 mg capsule 100 mg PO BID Patient Comments: TAKE 1 CAPSULE BY MOUTH TWICE DAILY lorazepam 0.5 mg tablet 0.5 mg PO HS furosemide 20 mg tablet 20 mg PO DAILY 30 Days Qty: 0 0RF Patient Comments: TAKE 1 TABLET BY MOUTH DAILY. magnesium oxide 400 mg (241.3 mg magnesium) tablet 400 mg PO BID Patient Comments: TAKE 1 TABLET BY MOUTH TWICE DAILY ferrous sulfate [FeroSul] 325 mg (65 mg iron) tablet 325 mg PO DAILY Patient Comments: TAKE ONE (1) TABLET BY MOUTH DAILY ,TAKE WITHVITAMINC amlodipine 5 MG tablet 5 mg PO DAILY Problem Reconciliation Problems Reviewed?: Yes Patient Discharge Instructions ACTIVITY: Continue current activity DIET: continue same diet Patient Instructions: DI for Pneumonia -- Adult, DI for Sepsis -- Adult Print Language: [place] Providers Primary Care Provider: Roe Gleason Admit Provider: Steven Dao Attending Provider: Steven Dao
[2024-06-28] MEDS: humaLOG 100 UNITS/ML 10ML VIAL (SSI) SUBCUT (11:43)
[2024-06-28 12:00] VITALS: BP 122/64; PULSE 80; PULSE 92; RESP 16; TEMP 36.6; O2SAT 94
[2024-06-28 15:44] LABS: POC Glucose,Bedside 241 (70-110)
--- NOTE | 2024-07-02 10:13 | SW/DCPLANNER ---
Phoned patient x2. Left message with name and a call back number each time. Boaz Ferreira
== END 2024-06-28 14:12 | disposition home or self-care (01) | DRG 871 ==
LOC: ER 08:26 → 2ND 08:49
PROVIDERS: Emergency Medicine; Nurse Practitioner Family; Admitting Provider Internal Medicine Adolescent Medicine; Emergency Provider Emergency Medicine; PCP Internal Medicine Adolescent Medicine; Visit Provider Internal Medicine Adolescent Medicine
DX: A41.9 Sepsis, unspecified organism (principal); I21.A1 Myocardial infarction type 2; J18.9 Pneumonia, unspecified organism; J96.21 Acute and chronic respiratory failure with hypoxia; I47.10 Supraventricular tachycardia, unspecified; I31.39 Other pericardial effusion (noninflammatory); J44.0 Chronic obstructive pulmonary disease with (acute) lower respiratory infection; R65.20 Severe sepsis without septic shock; I69.80 Unspecified sequelae of other cerebrovascular disease; Z95.1 Presence of aortocoronary bypass graft; Z99.81 Dependence on supplemental oxygen; I25.10 Atherosclerotic heart disease of native coronary artery without angina pectoris; I11.0 Hypertensive heart disease with heart failure; E11.9 Type 2 diabetes mellitus without complications; E78.5 Hyperlipidemia, unspecified; F32.A Depression, unspecified; G31.9 Degenerative disease of nervous system, unspecified; F01.50 Vascular dementia, unspecified severity, without behavioral disturbance, psychotic disturbance, mood disturbance, and anxiety; H26.9 Unspecified cataract; I65.29 Occlusion and stenosis of unspecified carotid artery; Z83.3 Family history of diabetes mellitus; Z82.0 Family history of epilepsy and other diseases of the nervous system; Z82.49 Family history of ischemic heart disease and other diseases of the circulatory system; Z83.438 Family history of other disorder of lipoprotein metabolism and other lipidemia; Z88.8 Allergy status to other drugs, medicaments and biological substances; Z87.891 Personal history of nicotine dependence; Z91.041 Radiographic dye allergy status; Z79.82 Long term (current) use of aspirin; Z79.84 Long term (current) use of oral hypoglycemic drugs; Z79.899 Other long term (current) drug therapy; D72.829 Elevated white blood cell count, unspecified; E83.42 Hypomagnesemia; E87.6 Hypokalemia
CPT/HCPCS: 36415; 71045; 71250; 80048; 80053; 80061; 80076; 81001; 82803; 82962; 83036; 83605; 83735; 84100; 84484; 85007; 85025; 87040; 87070; 87205; 93005; 93308; 97110; 97163; 99291; J0153; J1650; J3370; J3475; J3480; J7050; J7120

== ENCOUNTER 2024-09-24 07:56 | Inpatient (IN) | payer MEDICARE, MEDICAID, SELFPAY ==
--- OUTSIDE RECORDS SUMMARY | 2024-08-08 05:30 | XMS_ITS ---
Author Organization [facility] JANEE Address [address] [place] [address] Care Team Providers Care Salesperson [employer] Name Role Phone Roe Gleason Primary Care Provider Allergies Allergen (clinical drug ingredient) Drug/Non Drug Allergy documented on EMR Reaction Allergy Type Onset Date Status naproxen Naproxen Unknown Drug Allergy Active REASON FOR VISIT WELLNESS Medications Medication SIG (Take, Route, Frequency, Duration) Notes Start Date End Date Status amLODIPine Besylate 5 MG ONE (1) TAB(S) ORALLY ONCE A DAY 90 DAYS; Duration: 90 Active Metoprolol Succinate ER 100 MG TAKE ONE (1) TABLET BY MOUTH EVERY DAY; Duration: 180 Active Donepezil HCl 5 MG TAKE 1 TABLET BY MOUTH EVERY DAY WITH BREAKFAST; Duration: 90 Active Atorvastatin Calcium 80 MG TAKE ONE (1) TABLET BY MOUTH EVERY NIGHT AT BEDTIME; Duration: 90 Active Lisinopril 40 MG ONE (1) TAB(S) ORALLY TWO (2) TIMES A DAY 90 DAYS; Duration: 90 Active Memantine HCl 10 MG TAKE ONE (1) TABLET BY MOUTH TWICE DAILY; Duration: 150 Active Ferrous Sulfate 325 (65 Fe) MG 1 tab(s) orally once a day; Duration: 90 days 03/22/2024 Active Nystatin 307874 UNIT/GM 1 application Externally three times daily till clear; Duration: 14 days 07/04/2024 Active Pantoprazole Sodium 40 MG ONE (1) TAB(S) ORALLY ONCE A DAY 90 DAYS; Duration: 90 Active Furosemide 20 MG TAKE ONE (1) TABLET BY MOUTH EVERY DAY; Duration: 90 Active Proctosol HC 2.5 % 1 taya applied topically 3 times a day; Duration: 14 days 03/21/2024 Active Escitalopram Oxalate 10 MG 1 tab(s) orally once a day; Duration: 90 days Active Magnesium Oxide 400 MG 1 tab(s) orally twice daily; Duration: 90 days Active Albuterol Sulfate (2.5 MG/3ML) 0.083% 3 mL by nebulizer 4 times a day; Duration: 30 days 11/16/2023 Active ASPIRIN EC 325 MG TAKE ONE (1) TABLET BY MOUTH EVERY DAY; Duration: 90 *Please review for potential replacement for e-prescription and drug interaction check* Active metFORMIN HCl 1000 MG 1 tab(s) orally 2 times a day; Duration: 90 days Active Tab-A-[place] - TAKE ONE (1) TABLET BY MOUTH EVERY DAY; Duration: 90 Active Vitamin D3 25 MCG 1 tab(s) orally once a day; Duration: 90 days Active Isosorbide Mononitrate ER 30 MG TAKE 1 TABLET BY MOUTH EVERY DAY; Duration: 90 Active Ipratropium [place] 0.02 % 2.5 mL by nebulizer 4 times a day; Duration: 30 days 11/16/2023 Active LORazepam 0.5 MG TAKE 1 TABLET BY MOUTH EVERY DAY; Duration: 30 07/15/2024 Active Gabapentin 100 MG TAKE 1 CAPSULE BY MOUTH TWICE DAILY; Duration: 30 07/15/2024 Active Social History Tobacco Use: Social History Observation Description Date Details (start date - stop date) Former Smoker NA - NA Smoking: Question Answer Notes Are you a: former smoker How long has it been since you last smoked? 3-6 months Vital Signs Temperature 98.4 degrees Fahrenheit 08/09/19 25 Heart Rate 96 /min 08/08/2024 Blood pressure systolic 132 mm Hg 08/09/19 25 Blood pressure diastolic 74 mm Hg 025 Height 61.5 in 08/08/2024 Weight 120 lbs 08/08/2024 BMI 22.3 kg/m2 08/08/2024 Encounters Encounter Location Date Provider Diagnosis [address] [address] 08/08/2024 Roe Gleason Memory loss R41.3 ; Chronic obstructive pulmonary disease, unspecified COPD type J44.9 ; Healthcare maintenance Z00.00 ; SVT (supraventricular tachycardia) I47.10 and Encounter for immunization Z23 Assessments Encounter Date Diagnosis (ICD Code) Assessment Notes Treatment Notes Treatment Clinical Notes Section Notes 08/08/2024 Memory loss (ICD-10 - R41.3) -memory has felt stable, no memory change -0/3 on short term recall today, c/w prior per daughter 08/08/2024 Chronic obstructive pulmonary disease, unspecified COPD type (ICD-10 - J44.9) -feeling more wheezy per daughter -stable cough and stable sputum production (stable in amount and color) -No SOA -Had to increase the frequency of nebs recently; using up to 4 daily for the past week -On O2 chronically unless she goes outside; sx began on Monday after a cookout and sincce the change in weather- -no fevers, chills, no chest pain -Has a hx of seasonal allergies -family does not have a daily inhaler for Pt -Start cetirizine daily, also reasonable to intiiate daily controller inhaler, RTC inc2 month 08/08/2024 Healthcare maintenance (ICD-10 - Z00.00) -PCV 21 due -Shingrix Dose 2 due, deferred today -Pt voices that she is no longer interested in cancer screening as these do not align with her goals; otherwise would be due for Cologuard, Mammogram, and LDCT 08/08/2024 SVT (supraventricular tachycardia) (ICD-10 - I47.10) -No chest pain, no palpitations 08/08/2024 Encounter for immunization (ICD-10 - Z23) -PCV 21 today Plan Of Treatment Treatment Notes Assessment Notes Memory loss -memory has felt stable, no memory change -0/3 on short term recall today, c/w prior per daughter Chronic obstructive pulmonar y disease, unspecified COPD type -feeling more wheezy per daughter -stable cough and stable sputum production (stable in amount and color) -No SOA -Had to increase the frequency of nebs recently; using up to 4 daily for the past week -On O2 chronically unless she goes outside; sx began on Monday after a cookout and sincce the change in weather- -no fevers, chills, no chest pain -Has a hx of seasonal allergies -family does not have a daily inhaler for Pt -Start cetirizine daily, also reasonable to intiiate daily controller inhaler, RTC inc2 month Healthcare maintenance -PCV 21 due -Shingrix Dose 2 due, deferred today -Pt voices that she is no longer interested in cancer screening as these do not align with her goals; otherwise would be due for Cologuard, Mammogram, and LDCT SVT (supraventricular tachycardia) -No c hest pain, no palpitations Encounter for immunization -PCV 21 today Next Appt Details Follow Up: prn, Reason: Provider Name:Roe Gleason, 10/31/2024 10:30:00 AM, [address], [address], Progress Notes * Margarita STONEDOB:1950 (73 yo F)Acc No.[id number]:08/08/2024 Progress notes Patient: Ludwin AYANALEVIMargarita Provider: Arleen Gleason MD :1950 A ge:73 Y S ex:Female Date:08/08/2024 Address:[address] [place] [address] [id number] Subjective: * Chief Complaints: * 1 . WELLNESS. * HPI: g en: Presenting for Medicare AWV today per chart review but Pt daughter stating they had filled this out at recent visit. ADLs stable (requiring assistance from [employer] with whom she rotates), no recent falls, memory is about stable No new concerns from Pt or daughter, alos evaluated today 0/3 on memory of short term words today See below for problem-focused A/P. * Medical History: H [place], Hyperlipidemia, CVA - sxs resolve except for word finding issues., NIDDM, Refuses mammography, negative cologuard screening October 2016 and 05/2021, Normal eye examination fall 2016, normal bone density test on May/2018. * Surgical History: C ABG 2012, hysterectomy , rt eye- cataract surgery 10/2023. * Hospitalization/Major Diagno stic Procedure: edward villegas [facility]-UTI, Dehydration 12/2018, uti 05/2019, [place] 01/2023, [facility]- Low oxygen, pneumonia left lung, fluid around heart. 03/11/24-03/13/24, [facility] 06/27-07/2014. * Family History: F ather: . M other: , diagnosed with Diabetes, Heart Disease. P aternal Grand Father: . P aternal Grand Mother: . M aternal Grand Father: . M aternal Grand Mother: . S ibjermaine: alive, 1 brother, 1 sister living3 brothers -MI1 sister - cancer, diagnosed with Cancer, Heart Disease. C kat: alive.?5 brother(s) , 2 sister(s) . 3 daughter(s) . . * Social History: S moking A re you a: f ormer smoker, H ow long has it been since you last smoked??3-6 months. R ecreational drug use: no. Exercise: no. Home smoke detector use: yes. Caffeine: yes, soda daily. Living Will: Yes. Alcohol: no. Sexually active: no. Travel outside US: no. Occupation: disability. * Medications: T aking Vitamin D3 25 MCG Tablet 1 tab(s) orally once a day , Taking Ipratropium [place] 0.02 % Solution 2.5 mL by nebulizer 4 times a day , Taking Albuterol Sulfate (2.5 MG/3ML) 0.083% Nebulization Solution 3 mL by nebulizer 4 times a day , Taking ASPIRIN EC 325 MG DELAYED RELEASE TABLET TAKE ONE (1) TABLET BY MOUTH EVERY DAY , Notes to Pharmacist: *Please review for potential replacement for e-prescription and drug interaction check*, Taking metFORMIN HCl 1000 MG Tablet 1 tab(s) orally 2 times a day , Taking Tab-A-[place] - Tablet TAKE ONE (1) TABLET BY MOUTH EVERY DAY , Taking Magnesium Oxide 400 MG Tablet 1 tab(s) orally twice daily , Taking Proctosol HC 2.5 % Cream 1 taya applied topically 3 times a day , Taking Escitalopram Oxalate 10 MG Tablet 1 tab(s) orally once a day , Taking Ferrous Sulfate 325 (65 Fe) MG Tablet 1 tab(s) orally once a day , Taking Nystatin 026623 UNIT/GM Ointment 1 application Externally three times daily till clear , Taking Pantoprazole Sodium 40 MG Tablet Delayed Release ONE (1) TAB(S) ORALLY ONCE A DAY 90 DAYS , Taking Furosemide 20 MG Tablet TAKE ONE (1) TABLET BY MOUTH EVERY DAY , Taking Memantine HCl 10 MG Tablet TAKE ONE (1) TABLET BY MOUTH TWICE DAILY , Taking amLODIPine Besylate 5 MG Tablet ONE (1) TAB(S) ORALLY ONCE A DAY 90 DAYS , Taking Metoprolol Succinate ER 100 MG Tablet Extended Release 24 Hour TAKE ONE (1) TABLET BY MOUTH EVERY DAY , Taking Donepezil HCl 5 MG Tablet TAKE 1 TABLET BY MOUTH EVERY DAY WITH BREAKFAST , Taking Atorvastatin Calcium 80 MG Tablet TAKE ONE (1) TABLET BY MOUTH EVERY NIGHT AT BEDTIME , Taking Lisinopril 40 MG Tablet ONE (1) TAB(S) ORALLY TWO (2) TIMES A DAY 90 DAYS , Taking Isosorbide Mononitrate ER 30 MG Tablet Extended Release 24 Hour TAKE 1 TABLET BY MOUTH EVERY DAY , Taking LORazepam 0.5 MG Tablet TAKE 1 TABLET BY MOUTH EVERY DAY , Taking Gabapentin 100 MG Capsule TAKE 1 CAPSULE BY MOUTH TWICE DAILY , Discontinued Cyanocobalamin 1000 MCG/ML Solution as directed intramuscularly once a week , Notes to Pharmacist: Please give syringes and needles needed for injections., Discontinued 3CC SYRINGES AND 23 GAUGE NEEDLES USE WEEKLY FOR B12 INJECTIONS , Notes to Pharmacist: *Please review for potential replacement for e-prescription and drug interaction check*, Discontinued Medrol 4 MG Tablet Therapy Pack as directed , Medication List reviewed and reconciled with the patient * Allergies: N aproxen. Objective: * Vitals: N urse: be, Pain: back pain, Temp: 98.4, RR: 18, HR: 96, BP: 132/74, Ht: 61.5, Wt: 120, BMI:22.3. * Examination: G eneral Examination: General F rail, Kyphotic, wheelchair bound and chronically ill-appearing kind elderly woman.. Heart: R egular Rate and Rhythm, no murmur, rubs or gallops. Lungs: L CTAB, No wheezes, crackles or rhonchi, decreased ait movement, kyphotic. Peripheral pulses: n ormal (2+) bilaterally. Extremities: n ormal ROM,, no clubbing, no edema,, no foot lesions,. Neck s upple, no lymphadenopathy. Assessment: * Assessment: 1. C hronic obstructive pulmonary disease, unspecified COPD type - J44.9 (Primary) ?2. M lane loss - R41.3 3 . H ealthcare maintenance - Z00.00 4 . S VT (supraventricular tachycardia) - I47.10 5 . E ncounter for immunization - Z23 Plan: * Treatment: 2. M lane loss Notes: -memory has felt stable, no memory change -0/3 on short term recall today, c/w prior per daughter 3. H ealthcare maintenance Notes: -PCV 21 due -Shingrix Dose 2 due, deferred today -Pt voices that she is no longer interested in cancer screening as these do not align with her goals; otherwise would be due for Cologuard, Mammogram, and LDCT 4. S VT (supraventricular tachycardia) Notes: -No chest pain, no palpitations 5. E ncounter for immunization Notes: -PCV 21 today * Procedure Codes: G 0439 ANNUAL WELLNESS VST; PPS SUBSQT VST, 1170F FUNCTIONAL STATUS ASSESSMENT, G8399 PT W/DXA DOCUMENT OR ORDER, 1123F ADVANCED DIRECTIVE - HAS A LIVING WILL, G9899 Screening diagnostic,film,digital results documented and reviewed, 3017F COLORECTAL CA SCREEN DOC REV, G8417 BMI >=30 CALCUATE W/FOLLOWUP, G9717 DOC PT HAS ACTIV DX DEPR/BIPOLR D/O, G9903 Pt scrn tbco id as non user, 1036F TOBACCO NON-USER, G8783 NORMAL BP READING DOC F/U NOT RQR * Follow Up: p rn * * Sign off status: Completed true * Provider: Arleen Gleason MD Date: 0 08/08/2024 Generated for Dominick harrell/Danica/eTransmitting on: 0 09/24/2024 08:22 AM EDT History and Physical Notes * HPI (History of Present Illness) Category Sub-Category Detail Notes Category Not es gen Presenting for Medicare AWV today per chart review but Pt daughter stating they had filled this out at recent visit. ADLs stable (requiring assistance from dughter with whom she rotates), no recent falls, memory is about stable No new concerns from Pt or daughter, alos evaluated today 0/3 on memory of short term words today See below for problem-focused A/P Examination Category Sub-Category Detail Notes Category Not es General Examination Neck supple, no lymphadeno wood Heart: Regular Rate and Rhy thm, no murmur, rubs or gallops Lungs: LCTAB, No wheezes, c rackles or rhonchi, decreased ait movement, kyphotic Extremities: normal ROM,, no club james, no edema,, no foot lesions, Peripheral pulses: normal (2+) bilatera lly General Frail, Kyphotic, whe elchair bound and chronically ill-appearing kind elderly woman.
[2024-09-24] VITALS (35 sets, daily range): BP systolic 107–153; BP diastolic 45–92; PULSE 71–96; RESP 14–34; TEMP 36.8–37.7; O2SAT 87–100; BMI 24.4; BMI 23.6
--- NOTE | 2024-09-24 08:01 | ECG_ITS ---
APPROVED REPORT Exam: Resting ECG HR:92 bpm ECG Measurements Heart Rate 92 AXES DC 214 P 60 QRSd 100 QRS 3 QT 351 T 84 QTc 401 Conclusion SINUS RHYTHM WITH FIRST DEGREE AV BLOCK WITH OCCASIONAL SUPRAVENTRICULAR PREMATURE COMPLEXES POSSIBLE ANTERIOR MYOCARDIAL INFARCTION , OF INDETERMINATE AGE [30 ms Q WAVE IN V3/V4, OR R < 0.2 mV IN V4] INFERIOR MYOCARDIAL INFARCTION , OF INDETERMINATE AGE [40+ ms Q WAVE AND/OR ST/T ABNORMALITY IN II/aVF] ABNORMAL ECG Electronically signed by : EDGARDO IGLESIAS, 09/27/2024 14:08:57
[2024-09-24 08:10] LABS: VBG HCO3 27.8 mmol/L (23-30); VBG PCO2 46.2 mmol/L (35-51); VBG PH 7.40 mmol/L (7.31-7.41); VBG PO2 61.8 mmol/L (28-40)
[2024-09-24 08:12] LABS: Lactate Venous 4.4 mmol/L (0.4-2.0)
--- NOTE | 2024-09-24 08:15 | PC.NURSE ---
vbg results given to
--- NOTE | 2024-09-24 08:16 | CT_ITS ---
FINAL REPORT TECHNIQUE: The patient was injected with IV contrast. Axial images were obtained through the chest in a PE protocol. 3-D reconstruction images were also performed. Individualized dose reduction techniques using automated exposure control or adjustment of the MA and/or KV according to patient's size were employed. CLINICAL HISTORY: hypoxic res failure COMPARISON: Prior CT of the chest 06/27/2024 FINDINGS: Mediastinal vasculature is adequately opacified. No pulmonary artery filling defects are identified to suggest PE. There is no aortic dissection. There is no axillary adenopathy. There are prevascular lymph nodes present measuring up to 1.4 cm in size. Median sternotomy wires are present. There are dense coronary artery calcifications noted, as well as dense vascular calcifications in the thoracic and abdominal aorta. The heart size is normal. There is dense right middle lobe consolidation, which is new since the prior CT. There is improvement in the medial left lower lobe opacities noted on the prior exam. Changes of centrilobular emphysema are present. Interstitial opacities are noted that may be secondary to pulmonary edema. IMPRESSION: No pulmonary embolus or dissection. There is new dense right middle lobe consolidation when compared to the prior exam, that may be secondary to pneumonia or aspiration. The opacities noted in the medial left lower lobe have improved since the prior CT. Interstitial opacities are also noted, that may be secondary to pulmonary edema. Prevascular nodes are present measuring up to 1.4 cm in size, likely reactive. Reviewed, Interpreted and Dictated by Clint Gaspar MD Transcribed by Janeth Wilkins Authenticated and [facility]
--- NOTE | 2024-09-24 08:19 | PC.NURSE ---
Pt taken off non-rebreather and placed on 4 L by Silvano Carlos,RT. Sat 97% at this time.
--- OUTSIDE RECORDS SUMMARY | 2024-09-24 08:22 | XMS_ITS | Clinical Summary ---
Author Organization [facility] Address [address] [place] [address] [address] [place] [address] Phone Care Team Providers Care Supervisor Shearing Name Role Phone Unavailable Primary Care Provider Unavailabl e Allergies Active Allergy Reactions Criticality Noted Date Comments Naproxen Other (See Comments) 09/01/2022 Medications metoprolol succinate ER (TOPROL-XL) 100 mg Oral Tablet Sustained Release 24 hr Take 1 Tablet by mouth daily. 30 Tablet 11 3 Active nitroGLYCERIN (NITROSTAT) 0.4 mg SL Tablet, Sublingual Place 1 Tablet under the tongue every 5 minutes as needed for Chest pain. 100 Tablet 3 3 Active multivitamin Oral Capsule Take 1 Capsule by mouth daily. 3 Active diclofenac (VOLTAREN) 1 % Top Gel Apply 2 g topically 4 times daily. 3 Active aspirin 325 mg Oral Tablet Take 1 Tablet by mouth daily (with breakfast). 100 Tablet 3 3 Active cholecalciferol, vitamin D3, (VITAMIN D3) 10 mcg (400 unit) Oral Capsule Take 1 Capsule by mouth daily. 3 Active ondansetron (ZOFRAN) 4 mg Oral Tablet Take 1 Tablet by mouth daily as needed for Nausea. 30 Tablet 1 3 Active fluticasone propionate (FLONASE) 50 mcg/actuation Nasl [place], Suspension 2 Sprays by Nasal route daily. 3 Active albuterol (PROVENTIL) 2.5 mg /3 mL (0.083 %) Inhl Solution for Nebulization Take 3 mL by nebulization every 4 hours as needed for Wheezing. 3 Active LORazepam (ATIVAN) 0.5 mg Oral Tablet Take 1 Tablet by mouth daily. 3 Active escitalopram oxalate (LEXAPRO) 10 mg Oral Tablet Take 1 Tablet by mouth daily. 3 Active lisinopriL (PRINIVIL;ZESTRI L) 40 mg Oral Tablet Take 0.5 Tablets by mouth 2 times daily. 3 Active isosorbide mononitrate (IMDUR) 30 mg Oral Tablet Sustained Release 24 hr Take 1 Tablet by mouth every morning. 30 Tablet 11 3 Active donepeziL (ARICEPT) 5 mg Oral Tablet Take 1 Tablet by mouth nightly. 3 Active fUROsemide (LASIX) 20 mg Oral Tablet Take 1 Tablet by mouth daily. 30 Tablet 11 3 Active amLODIPine (NORVASC) 5 mg Oral Tablet Take 1 Tablet by mouth daily. 30 Tablet 11 3 Active memantine (NAMENDA) 10 mg Oral Tablet Take 1 Tablet by mouth 2 times daily. 3 Active omeprazole (PRILOSEC) 40 mg Oral Capsule, Delayed Release(E.C.) Take 1 Capsule by mouth daily. 30 Capsule 1 3 Active metFORMIN (GLUCOPHAGE) 1,000 mg Oral Tablet Take 1 Tablet by mouth 2 times daily (with meals). 3 Active magnesium oxide 400 mg magnesium Oral Tablet Take 1 Tablet by mouth 2 times daily. 3 Active atorvastatin (LIPITOR) 80 mg Oral Tablet Take 1 Tablet by mouth nightly. 3 Active gabapentin (NEURONTIN) 100 mg Oral Capsule Take 1 Capsule by mouth 2 times daily. 3 Active Active Problems Problem Noted Date Diagnosed Date Memory loss 09/01/2022 Chronic anxiety 09/01/2022 Chronic obstructive pulmonary disease 09/01/2022 GERD without esophagitis 09/01/2022 Rheumatoid arthritis of hand 09/01/2022 Tobacco use disorder 09/01/2022 SVT (supraventricular tachycardia) Essential hypertension Hyperlipidemia CVA (cerebral vascular accident) Type 2 diabetes mellitus Anxiety Insomnia Surgical History Surgery Date Site/Laterality Comments CORONARY ARTERY BYPASS GRAFT 03/27/2012 - 03/26/2013 HYSTERECTOMY Medical History Medical History Date Comments SVT (supraventricular tachycardia) 09/01/2022 Essential hypertension 09/01/2022 Hyperlipidemia 09/01/2022 CVA (cerebral vascular accident) (HCC) Type 2 diabetes mellitus (HCC) 09/01/2022 Anxiety 09/01/2022 Insomnia 09/01/2022 Memory loss Family History Medical History Relation Name Comments Diabetes Mother Heart Failure Mother Cancer Sister Heart Failure Sister Relation Name Status Comments Father Mother Sister Social History Tobacco Use Types Packs/Day Years Used Date Smoking Tobacco: Former Cigarettes Q uit: 02/2022 Smokeless Tobacco: Never Tobacco Cessation:Counseling Given: Not Answered Alcohol Use Standard Drinks/Week Comments Never 0 (1 standard drink = 0.6 oz pur e alcohol) Comments Unknown Sex and Gender Information Value Date Recorded Sex Assigned at Not on file Legal Sex Female 11:28 AM EDT Gender Identity Not on file Sexual Orientation Not on file Obstetrics History Last Filed Vital Signs Vital Sign Reading Time Taken Comments Blood Pressure 120/60 09/01/2022 3:26 PM EDT Pulse 71 09/01/2022 3:26 PM EDT Temperature - - Respiratory Rate - - Oxygen Saturation 90% 09/01/2022 3:26 PM EDT Inhaled Oxygen Concentration - - Weight 65.8 kg (145 lb) 09/01/2022 3:26 PM EDT Height - - Body Mass Index - - Plan of Treatment Health Maintenance Due Date Last Done Comments Wellness Exam Medicare 1953 Kidney Health: eGFR 1960 Kidney Health: uACR 1960 Lipids 1960 Diabetic Eye Exam 1968 Hemoglobin A1c 1968 Hepatitis C Screening 1968 DTaP/TDaP/Td (1 - Tdap) 1969 Breast Cancer Screening 1990 Cologuard 11/15/1995 Colon Cancer Screening 11/15/1995 Colonoscopy 11/15/1995 FIT 11/15/1995 Sigmoidoscopy 11/15/1995 Virtual Colonography 11/15/1995 RSV or 60+ (1 - Risk 60-74 years 1-dose series) 2010 Bone Density Screening 11/15/2015 Zoster (2 of 2) 03/17/2020 01/21/2020 COVID-19 Vaccine ( season) 2023 06/19/2020, 05/22/2020 Influenza Vaccine (#1) 2024 2, 01/21/2020, 11/27/2018, Additional history exists Pneumococcal Vaccine 50+ Completed 022, 10/24/2017, 10/20/2015 Hepatitis B Vaccine Aged Out No longe r eligible based on patient's age to complete this topic Meningococcal B Vaccine Aged Out No l onger eligible based on patient's age to complete this topic Insurance [place] [address] MEDICAID [id number]
[2024-09-24 08:23] LABS: Hematocrit 37.1 % (37.0-47.0); Hemoglobin 11.7 g/dL (12.2-16.2); Immature Granulocytes % 0.6 %; Mean Corpuscular HGB Conc 31.5 g/dL (31.8-35.4); Mean Corpuscular Hemoglobin 27.9 pg (27.0-31.2); Mean Corpuscular Volume 88.5 fl (81-99); Nucleated Red Blood Cells % 0 %; Platelet Count 336 K/mm3 (142-424); Red Blood Count 4.19 M/mm3 (4.20-5.40); Red Cell Distribution Width-SD 54.4 fL; White Blood Count 19.1 K/mm3 (4.8-10.8)
--- OUTSIDE RECORDS SUMMARY | 2024-09-24 08:23 | XMS_ITS | Patient Health Record ---
Author Organization [facility] Address [address] [place] [address] Care Team Providers Care Product Safety Officer Name Role Phone Roe Cotto Primary Care Provider Cony Maria Unavailable [phone] Nini Linder Unavailable [phone] Neptali Cony Unavailable [phone] Migration, Provider Unavailable Unavailable Allergies Allergen (clinical drug ingredient) Drug/Non Drug Allergy documented on EMR Reaction Allergy Type Onset Date Status naproxen Naproxen Unknown Drug Allergy Active Results Component Value Reference Range Notes MODIFIED BARIUM SWALLOW Reviewed date:08/15/2024 08:18:16 PM Interpretation: Performing Lab: Notes/Report: [address] [place] [address] Name: MARGARITA STONE Exam Date: 08/14/2024 : 1950 Age 73 years Gender: F Physician: ROE COTTO Facility: [facility] Facility HSV: Outpatient Exam: MODIFIED BARIUM SWALLOW EXAM: MODIFIED BARIUM SWALLOW INDICATION: dysphasia. Suspicion for aspiration. COMPARISON: None ATTENDING COMMERCIAL ROOFER: Ashok Dunn D.O. CHEMICAL MIXER: Jt Loaiza Jr., PA-C Procedure was performed by Jt Loaiza Jr., PA-C under the supervision of Dr. Dunn. FINDINGS/TECHNIQUE: Under fluoroscopic evaluation cineradiography/videoradiography recordings were performed in conjunction with the speech-language pathologist (ELEPHANT TAMER). Various liquid, solid and/or semi-solid barium preparations were used to assess swallowing function. FLUORO TIME: 105.1 seconds. Reference air kerma: 24.182 mGy. IMPRESSION: Modified barium swallow. There is aspiration with thin consistency and nectar consistency barium. Please see formal report by speech-language pathology for findings and recommendations. Electronically signed by: Ashok Dunn DO 08/14/2024 12:38 PM EDT RP Dictated By: Ashok Dunn Transcribed By: Transcribed On: 08/14/2024 11:14 AM Electronically signed by: Ashok Dunn 08/14/2024 Thank you for referring MARGARITA STONE to [facility]. Legally authenticated by RON ESCOBAR DO 2024-08-14 11:14:22 VITAMIN B12/FOLATE, SERUM PA MARY LOU ([id number]) Reviewed date:03/22/2024 12:10:25 PM Interpretation: Performing Lab:[facility]ITTANY [employer] [id number], Sleep SolutionsGynnSC[address] [place] Notes/Report: NON-FASTING; NON-FASTING; NON-FASTING; NON-FASTING; NON-FAST VITAMIN B12 [phone] pg/mL Please Note: Although the reference range for vitamin B12 is 200-1100 pg/mL, it has been reported that between 5 and 10% of patients with values between 200 and 400 pg/mL may experience neuropsychiatric and hematologic abnormalities due to occult B12 deficiency; less than 1% of patients with values above 400 pg/mL will have symptoms. FOLATE, SERUM >24.0 Reference Range Low: <3.4 Borderline: 3.4-5.4 Normal: >5.4 CBC (INCLUDES DIFF/PLT) (639 9) Reviewed date:03/22/2024 12:10:25 PM Interpretation: Performing Lab:[facility] [employer] [address], [facility] [id number] [place] Notes/Report: NON-FASTING; NON-FASTING; NON-FASTING; NON-FASTING; NON-FAST WHITE BLOOD CELL COUNT 10.3 3.8-10.8 Thousand/ uL RED BLOOD CELL COUNT 3.46 3.80-5.10 Million/uL HEMOGLOBIN 8.7 11.7-15.5 g/dL HEMATOCRIT 29.8 35.0-45.0 % MCV 86.1 80.0-100.0 fL MCH 25.1 27.0-33.0 pg MCHC 29.2 32.0-36.0 g/dL For adults, a slight decrease in the calculated MCHC value (in the range of 30 to 32 g/dL) is most likely not clinically significant; however, it should be interpreted with caution in correlation with other red cell parameters and the patient's clinical condition. RDW 13.6 11.0-15.0 % PLATELET COUNT 409 140-400 Thousand/uL MPV 11.7 7.5-12.5 fL ABSOLUTE NEUTROPHILS 6705 9929-5222 cells/uL ABSOLUTE LYMPHOCYTES 2575 850-3900 cells/uL ABSOLUTE MONOCYTES 731 200-950 cells/uL ABSOLUTE EOSINOPHILS 247 15-500 cells/uL ABSOLUTE BASOPHILS 41 0-200 cells/uL NEUTROPHILS 65.1 LYMPHOCYTES 25.0 MONOCYTES 7.1 EOSINOPHILS 2.4 BASOPHILS 0.4 MAGNESIUM (622) Reviewed date:03/22/2024 12:10:25 PM Interpretation: Performing Lab:BRITTANY, [employer] [id number], Big Switch NetworksPtwxPV[address] [place] Notes/Report: NON-FASTING; NON-FASTING; NON-FASTING; NON-FASTING; NON-FAST MAGNESIUM 1.5 1.5-2.5 mg/dL COMPREHENSIVE METABOLIC PANE ([id number]) Reviewed date:03/22/2024 12:10:25 PM Interpretation: Performing Lab:[facility] [id number] [employer], Big Switch NetworksWtqeGF[address] [place] Notes/Report: NON-FASTING; NON-FASTING; NON-FASTING; NON-FASTING; NON-FAST GLUCOSE 107 65-99 mg/dL Fasting reference interval For someone without known diabetes, a glucose value between 100 and 125 mg/dL is consistent with prediabetes and should be confirmed with a follow-up test. UREA NITROGEN (BUN) 15 7-25 mg/dL CREATININE 0.72 0.60-1.00 mg/dL EGFR 88 > OR = 60 mL/min/1.73m2 BUN/CREATININE RATIO SEE NOTE: 6-22 (calc) Not Reported: BUN and Creatinine are within reference range. SODIUM 144 135-146 mmol/L POTASSIUM 4.5 3.5-5.3 mmol/L CHLORIDE 98 98-110 mmol/L CARBON DIOXIDE 33 20-32 mmol/L CALCIUM 9.0 8.6-10.4 mg/dL PROTEIN, TOTAL 6.0 6.1-8.1 g/dL ALBUMIN 3.6 3.6-5.1 g/dL GLOBULIN 2.4 1.9-3.7 g/dL (calc) ALBUMIN/GLOBULIN RATIO 1.5 1.0-2.5 (calc) BILIRUBIN, TOTAL 0.2 0.2-1.2 mg/dL ALKALINE PHOSPHATASE 77 37-153 U/L AST 19 10-35 U/L ALT 15 6-29 U/L IRON, TIBC AND FERRITIN PANE L (5616) Reviewed date:03/22/2024 12:10:24 PM Interpretation: Performing Lab:CB, [employer] [facility], [facility] HealthcareSegcEI[address] [place] Notes/Report: NON-FASTING; NON-FASTING; NON-FASTING; NON-FASTING; NON-FAST IRON, TOTAL 23 45-160 mcg/dL IRON BINDING CAPACITY 387 250-450 mcg/dL (nabeel c) % SATURATION 6 16-45 % (calc) FERRITIN 7 16-288 ng/mL Medications Medication SIG (Take, Route, Frequency, Duration) Notes Start Date End Date Status Isosorbide Mononitrate ER 30 MG TAKE 1 TABLET BY MOUTH EVERY DAY; Duration: 90 Active Ipratropium Pedro 0.02 % 2.5 mL by nebulizer 4 times a day; Duration: 30 days 11/16/2023 Active Ferrous Sulfate 325 (65 Fe) MG 1 tab(s) orally once a day; Duration: 90 days 03/22/2024 Active Albuterol Sulfate (2.5 MG/3ML) 0.083% 3 mL by nebulizer 4 times a day; Duration: 30 days 11/16/2023 Active Nystatin 109021 UNIT/GM 1 application Externally three times daily till clear; Duration: 14 days 07/04/2024 Active ASPIRIN EC 325 MG TAKE ONE (1) TABLET BY MOUTH EVERY DAY; Duration: 90 *Please review for potential replacement for e-prescription and drug interaction check* Active Pantoprazole Sodium 40 MG ONE (1) TAB(S) ORALLY ONCE A DAY 90 DAYS; Duration: 90 Active Furosemide 20 MG TAKE ONE (1) TABLET BY MOUTH EVERY DAY; Duration: 90 Active Tab-A-[place] - TAKE ONE (1) TABLET BY MOUTH EVERY DAY; Duration: 90 Active Memantine HCl 10 MG TAKE ONE (1) TABLET BY MOUTH TWICE DAILY; Duration: 150 Active LORazepam 0.5 MG TAKE 1 TABLET BY MOUTH EVERY DAY; Duration: 30 09/13/2024 Active amLODIPine Besylate 5 MG ONE (1) TAB(S) ORALLY ONCE A DAY 90 DAYS; Duration: 90 Active Proctosol HC 2.5 % 1 taya applied topically 3 times a day; Duration: 14 days 03/21/2024 Active Metoprolol Succinate ER 100 MG TAKE ONE (1) TABLET BY MOUTH EVERY DAY; Duration: 180 Active metFORMIN HCl 1000 MG ONE (1) TAB(S) ORALLY TWO (2) TIMES A DAY 90 DAYS; Duration: 90 Active Donepezil HCl 5 MG TAKE 1 TABLET BY MOUTH EVERY DAY WITH BREAKFAST; Duration: 90 Active Atorvastatin Calcium 80 MG TAKE ONE (1) TABLET BY MOUTH EVERY NIGHT AT BEDTIME; Duration: 90 Active Vitamin D3 25 MCG (1000 UT) TAKE ONE (1) TABLET BY MOUTH EVERY DAY; Duration: 90 Active Escitalopram Oxalate 10 MG 1 tab(s) orally once a day; Duration: 90 days Active Lisinopril 40 MG ONE (1) TAB(S) ORALLY TWO (2) TIMES A DAY 90 DAYS; Duration: 90 Active Gabapentin 100 MG TAKE 1 CAPSULE BY MOUTH TWICE DAILY; Duration: 30 09/13/2024 Active Magnesium Oxide -Mg Supplement 400 (240 Mg) MG TAKE 1 TABLET BY MOUTH TWICE DAILY; Duration: 90 Active Immunizations Vaccine Route Administration Date Status Comme nts SHINGRIX IM Intramuscular 01/21/2020 Administered Lot # [id number] Prevnar PCV-20 (Pneumococcal conjugate 20) IM Intramuscular 03/08/2022 Administered Prevnar PCV-13 (Pneumococcal conjugate 13) IM Intramuscular 10/24/2017 Administered Pneumovax 23 IM Intramuscular 10/20/2015 Administered Influenza (Fluzone)--Medicar e only IM Intramuscular 01/20/2015 Administered Fluzone High Dose IM Intramuscular 01/21/2020 Administered Lot # [id number] Fluzone High Dose IM Intramuscular 12/07/2021 Administered Fluzone High Dose IM Intramuscular 01/03/2023 Administered FLUZONE 6MO - OLDER Unknown 11/27/2018 Administered given by [facility] Fluvirin--Influenz a vaccine 3+ year Unknown 02/08/2006 Administered Fluvirin--Influenz a vaccine 3+ year Unknown 02/26/2007 Administered Fluvirin--Influenz a vaccine 3+ year Unknown 02/06/2008 Administered Fluvirin--Influenz a vaccine 3+ year Unknown 01/05/2009 Administered Fluvirin--Influenz a vaccine 3+ year Unknown 01/21/2013 Administered Covid Moderna Unknown 05/22/2020 Administered Covid Moderna Unknown 06/19/2020 Administered Arexvy IM Intramuscular 03/07/2023 Administered Social History Tobacco Use: Social History Observation Description Date Details (start date - stop date) Former Smoker NA - NA Smoking: Question Answer Notes Are you a: former smoker How long has it been since you last smoked? 3-6 months Problems Problem Type SNOMED Code ICD Code Onset Dates Problem Status W/U Status Risk Notes Problem Primary insomnia (6168988) Primary insomnia (F51.01) Active confirmed Problem Alzheimer's disease (26532357) Alzheimer's disease, unspecified (G30.9) Active confirmed Problem Panlobular emphysema (8707745) Panlobular emphysema (J43.1) Active confirmed Problem Chronic pulmonary edema (30295480) Chronic pulmonary edema (J81.1) Active confirmed Problem Nicotine dependence (95248646) Personal history of nicotine dependence (Z87.891) Active confirmed Problem Hypertension (44031373) HTN (hypertension) (I10) Active confirmed Problem Mixed anxiety and depressive disorder (254141259) Depression with anxiety (F41.8) Active confirmed Problem Anxiety (62751936) Anxiety (F41.9) Active confi rmed Problem Supraventricular tachycardia (7085674) SVT (supraventricular tachycardia) (I47.1) Active confirmed Problem Cerebrovascular disease (10747788) Cerebrovascular disease (I67.9) Active confirmed Problem Hyperlipidemia (51922159) Hyperlipidemia (E78.5) Active confirmed Problem Type II diabetes mellitus without complication (874338403) Diabetes mellitus type 2, noninsulin dependent (E11.9) Active confirmed Problem Ischemic stroke (785097315) Ischemic stroke (I63.50) Active confirmed Problem Gastroesophageal reflux disease (623341815) GERD without esophagitis (K21.9) Active confirmed Problem Acute exacerbation of chronic obstructive airways disease (842790390) COPD exacerbation (J44.1) Active confirmed Problem Memory loss (78964756) Memory loss (R41.3) Active confirmed Problem COPD - Chronic obstructive pulmonary disease (37863981) Chronic obstructive pulmonary disease, unspecified COPD type (J44.9) Active confirmed Problem Recurrent falls (769149028) Frequent falls (R29.6) Active confirmed Problem Abnormal mammogram (015611705) Abnormal mammogram (R92.8) Active confirmed Problem Ataxia (71444140) Ataxia (R27.0) Active confirm ed Problem Anemia (288529927) Anemia, unspecified type (D64.9) Active confirmed Problem Dysphagia (27226461) Dysphagia, unspecified type (R13.10) Active confirmed Problem Chronic anxiety (485617900) Chronic anxiety (F41.9) Active confirmed Problem Adult health examination (095125601) Healthcare maintenance (Z00.00) Active confirmed Problem Type II diabetes mellitus without complication (871689619) Type 2 diabetes mellitus without complication, without long-term current use of insulin (E11.9) Active confirmed Problem Menopausal syndrome (disorder) (962551244) Menopausal disorder (N95.9) Active confirmed Problem Primary hypertension (21767048) Primary hypertension (I10) Active confirmed Problem Localized, primary osteoarthritis of the pelvic region and thigh (498346054) Primary osteoarthritis of hips, 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) Active confirmed Problem Tobacco use (337448365) Tobacco use disorder (F17.200) Active confirmed Problem Leukocytosis (589285372) Leukocytosis, unspecified type (D72.829) Active confirmed Problem Arthritis of wrist (6059001186224) Arthritis of wrist, 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) Active confirmed Problem Osteoarthritis of right knee joint (disorder) (741643941313224) Localized osteoarthritis of right knee (M17.11) Active confirmed Problem Dysarthria (5776006) 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) Active confirmed Problem Hyperlipidemia (40645078) Other hyperlipidemia (E78.49) Active confirmed Problem Major depression, single episode (14880656) Major depressive disorder, remission status unspecified, unspecified whether recurrent (F32.9) Active confirmed Problem History of supraventricular tachycardia (40292043541842198) History of supraventricular tachycardia (Z86.79) Active confirmed Problem 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 (942310070039776) Coronary artery disease involving iroquois heart, unspecified vessel or lesion type, unspecified whether angina present (I25.10) Active confirmed Problem 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, unspecified severity, 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) Active confirmed Problem Whidx-ph-komelqo hypoxemic respiratory failure (disorder) (08160025427113028) Acute on chronic hypoxic respiratory failure (J96.21) Active confirmed Vital Signs Heart Rate 96 /min 08/08/2024 Temperature 98.4 degrees Fahrenheit 08/08/2024 Blood pressure diastolic 74 mm Hg 08/08/2024 Height 61.5 in 08/08/2024 Blood pressure systolic 132 mm Hg 08/08/2024 Weight 120 lbs 08/08/2024 BMI 22.3 kg/m2 08/08/2024 Encounters Encounter Location Date Provider Diagnosis [facility] J[place] [address] [address] 06/29/2024 Provider Migration Anxiety F41.9 ; Primary osteoarthritis of hips, bilateral M16.0 and Hemorrhoids, unspecified hemorrhoid type K64.9 [facility] [address] [address] 11/03/2023 Nini Linder Diabetes mellitus ty pe 2, noninsulin dependent E11.9 ; HTN (hypertension) I10 ; Chronic obstructive pulmonary disease, unspecified COPD type J44.9 ; GERD without esophagitis K21.9 ; Rheumatoid arthritis without rheumatoid factor, left hand M06.042 ; Rheumatoid arthritis without rheumatoid factor, right hand M06.041 ; Dementia in other diseases classified elsewhere, unspecified severity, with mood disturbance F02.83 and Depression with anxiety F41.8 [facility] [address] [address] 12/28/2023 Roe Victorino Closed fracture of n corie bone, sequela S02.2XXS ; Primary osteoarthritis of hips, bilateral M16.0 ; Anxiety F41.9 and Hospital discharge follow-up Z09 [facility] [place] [address] [address] 02/21/2024 Cony Maria COPD exacerbation J4 4.1 and Nasal congestion R09.81 [facility] [place] [address] [place] [address] 03/21/2024 Cony Gunderson Anemia, unspecified type D64.9 ; Acute on chronic hypoxic respiratory failure J96.21 ; Leukocytosis, unspecified type D72.829 ; Pericardial effusion I31.39 and Hemorrhoids, unspecified hemorrhoid type K64.9 [facility] [place] [address] [address] 07/04/2024 Roe Cotto History of supraventricular tachycardia Z86.79 ; Aspiration pneumonia of left lower lobe due to regurgitated food J69.0 ; Acute on chronic hypoxic respiratory failure J96.21 ; Hospital discharge follow-up Z09 and Yeast infection B37.9 [facility] [place] [address] [address] 08/08/2024 Roe Cotto Memory loss R41.3 ; Chronic obstructive pulmonary disease, unspecified COPD type J44.9 ; Healthcare maintenance Z00.00 ; SVT (supraventricular tachycardia) I47.10 and Encounter for immunization Z23 [facility] [place] [address] [facility] [address] [place] [address] 11/03/2023 Nini Linder [facility] [place] [address] [address] 11/03/2023 Roe Besson [facility] [place] [address] [place] [address] 11/16/2023 Roe Besson [facility] [place] [address] [place] [address] 12/21/2023 Roe Besson [facility] [place] [address] [place] [address] 03/13/2024 Cony Gunderson [facility] [place] [address] [facility] [address] [place] [address] 03/22/2024 Roe Besson [facility] [place] [address] [address] 03/25/2024 Roe Besson [facility] [place] [address] [place] [address] 05/14/2024 Roe Besson [facility] [place] [address] [place] [address] 06/28/2024 Roe Besson [facility] [place] [address] [facility] [address] [place] [address] 07/04/2024 Roe Besson [facility] [place] [address] [facility] 4 [place] [address] 07/10/2024 Roebijal Cotto Dysphagia, unspecifi ed type R13.10 [facility] [place] [address] [place], [place] [address] 09/09/2024 Roebijal Cotto Assessments Encounter Date Diagnosis (ICD Code) Assessment Notes Treatment Notes Treatment Clinical Notes Section Notes 11/03/2023 HTN (hypertension) (ICD-10 - I10) 11/03/2023 Diabetes mellitus type 2, noninsulin dependent (ICD-10 - E11.9) Chronic conditions are stable No changes made today Blood pressure well controlled GERD well controlled Shortness of breath/hypoxia at baseline. Continue oxygen at 2-2.5 Liters. Inhalers as abve No signs of acute flare Mood is stable. Confusion at baseline Previous labs reviewed and looked good, will repeat at FU in 3 months 02/21/2024 Nasal congestion (ICD-10 - R09.81) 02/21/2024 COPD exacerbation (ICD-10 - J44.1) Suspect mild exacerbation. No antibiotics recommended at this time but we are going into a long holiday weekend so I am sending doxycycline for them to have on hand should her symptoms progress. Recommend start plain Mucinex twice a day and scheduled nebulizer treatments at least 3 times daily. Samples of nasal saline mist provided to use as well. Strict return precautions reviewed. 03/21/2024 Anemia, unspecified type (ICD-10 - D64.9) No active source of bleeding. Could be anemia of chronic disease component with CHF, but will check iron studies and B12/folate to rule out deficiencies. I personally will review all labs once final. 03/21/2024 Acute on chronic hypoxic respiratory failure (ICD-10 - J96.21) I personally reviewed hospitalization record and discharge summary. On daily Lasix. Finished abx. Encouraged daughter to keep her on 2L NC at all times. She voices understanding. 08/08/2024 Memory loss (ICD-10 - R41.3) -memory [...] intiiate daily controller inhaler, RTC inc2 month 07/10/2024 Dysphagia, unspecified type (ICD-10 - R13.10) 07/04/2024 History of supraventricular tachycardia (ICD-10 - Z86.79) Controlled in hospital with adenosine and metoprolol. HR normal in office today. 12/28/2023 Primary osteoarthritis of hips, bilateral (ICD-10 - M16.0) Refill gabapentin and lorazepam. Patient's family does a good job tracking medication. No issues with overuse or inappropriate diversion 12/28/2023 Closed fracture of nasal bone, sequela (ICD-10 - S02.2XXS) Reviewed ER notes. Advised Afrin for a couple of days to stop any remaining bleeding along with nasal saline. No evidence of continuing bleeding on exam today. Pain seems to be well-controlled. Fall was as a result of her inappropriately using a lift chair. No evidence of ataxia worsening from her meds. 07/04/2024 Aspiration pneumonia of left lower lobe due to regurgitated food (ICD-10 - J69.0) Due to asymptomatic pneumonia with abrupt onset following choking on food with continued dysphagi; concerned for aspiration pneumonia. Will send for a modified barium swallow with speech therapy ensure no aspirations of food and for futher instructions to prevent recurrent pneumonias. 06/29/2024 Anxiety (ICD-10 - F41.9) 06/29/2024 Primary osteoarthritis of hips, bilateral (ICD-10 - M16.0) 12/28/2023 Anxiety (ICD-10 - F41.9) 07/04/2024 Acute on chronic hypoxic respiratory failure (ICD-10 - J96.21) Oxygen initially increased at arrival to ED, now back to baseline O2 level. Continue spirometry at home. 08/08/2024 Healthcare maintenance (ICD-10 - Z00.00) -PCV 21 due -Shingrix Dose 2 due, deferred today -Pt voices that she is no longer interested in cancer screening as these do not align with her goals; otherwise would be due for Cologuard, Mammogram, and LDCT 03/21/2024 Leukocytosis, unspecified type (ICD-10 - D72.829) Likely reactive and due to pna with acute illness and fluid overload while inpatient. I personally will review labs once final. 11/03/2023 Chronic obstructive pulmonary disease, unspecified COPD type (ICD-10 - J44.9) 11/03/2023 GERD without esophagitis (ICD-10 - K21.9) 03/21/2024 Pericardial effusion (ICD-10 - I31.39) Keep Cardiology follow-up. Currently has a monitor on. I personally will review all labs once final. 08/08/2024 SVT (supraventricular tachycardia) (ICD-10 - I47.10) -No chest pain, no palpitations 12/28/2023 Hospital discharge follow-up (ICD-10 - Z09) Meds reviewed... reconciled.. reviewed ER notes 07/04/2024 Hospital discharge follow-up (ICD-10 - Z09) No medication changes made by cardiology team. Personally reviewed H&P and discharge summary as available from hospital discharge documentation. Reviewed pertinent labs and test done in the hospital. Personally reconciled medication. 06/29/2024 Hemorrhoids, unspecified hemorrhoid type (ICD-10 - K64.9) 07/04/2024 Yeast infection (ICD-10 - B37.9) Yeast infection following high dose antibiotics for PNA. Will prescribe Nystain cream to be applied topically to affected area. 08/08/2024 Encounter for immunization (ICD-10 - Z23) -PCV 21 today 03/21/2024 Hemorrhoids, unspecified hemorrhoid type (ICD-10 - K64.9) At daughter's request, will refill cream. She denies any active bleeding. 11/03/2023 Rheumatoid arthritis without rheumatoid factor, left hand (ICD-10 - M06.042) 11/03/2023 Rheumatoid arthritis without rheumatoid factor, right hand (ICD-10 - M06.041) 11/03/2023 Dementia in other diseases classified elsewhere, unspecified severity, with mood disturbance (ICD-10 - F02.83) 11/03/2023 Depression with anxiety (ICD-10 - F41.8) 03/21/2024 Other Patient discuss ed with Attending Dr. Cotto who agrees with the plan of care above. Plan Of Treatment Pending Test Test Name Order Date X-Lipid Profile 03/03/2006 Ultrasound : Breast, Left 10/24/2016 N-CMP 03/03/2006 Mammogram : Additional Views 10/24/2016 H-LIPID PANEL 04/16/2014 C-CBC 09/17/2013 C-CMP 09/17/2013 C-LIPID PANEL 09/17/2013 C-URINE CULTURE 12/11/2018 C-HGBA1C 09/17/2013 Comp. Metabolic Panel (14) 03/08/2022 Lipid Panel 03/08/2022 Hemoglobin A1c 03/08/2022 Pulmonary Function Test- Complete 2020 M-COVID WITH RESPIRATORY PANEL 0 Next Appt Details Provider Name:Roe Cotto, 10/31/2024 10:30:00 AM, [address] [place] [address], [phone], Insurance Providers Payer Name Payer Address Payer Phone Subscriber Number Group Number Insured Name Patient Relationship to Insured Coverage Start Date Coverage End Date [place] [address] [place] [place] [address] [id number] Margarita Stone Self - patient is the insured MEDICAID EDS [address] [place] [id number] Margarita Stone Self - patient is the insured [employer] [address] [place] [address] [facility] Rehan Stonea Self - patient is the insured Medications Administered Medication Instructions Date of Administration Dosage Notes Ceftriaxone 500 01/16/2020 500 mg Medical (General) History Medical History History ICD Code HTN Hyperlipidemia CVA - sxs resolve except for word findin g issues. NIDDM refuses mammography negative cologuard screening October 2016 and 05/2021 normal eye examination fall 2016 normal bone density test on May/2018 Surgical History Surgery Date(Month/Year) CABG 2012 hysterectomy rt eye- cataract surgery 10/2023 Hospitalization History Reason Date(Month/Year) [facility] 06/27-07/2014 [facility]- Low oxygen, pneumonia left lung, fl uid around heart. 03/11/24-03/13/24 [facility] 01/2023 uti 05/2019 [facility]-UTI, Dehydration 12/2018 above
[2024-09-24 08:24] LABS: Coronavirus 19, PCR Not Detected (NotDetected); Influenza A, PCR Not Detected (NotDetected); Influenza B, PCR Not Detected (NotDetected)
--- NOTE | 2024-09-24 08:29 | HMH.EDGENADL ---
Discharge Plan Disposition Patient Disposition: Admitted Prescriptions Prescriptions: No Action atorvastatin 80 mg tablet 80 mg PO HS aspirin 325 mg tablet 325 mg PO DAILY multivitamin [Daily Multi-Vitamin] Tablet 1 tab PO DAILY escitalopram oxalate 10 mg tablet 10 mg PO DAILY Patient Comments: TAKE 1 TABLET BY MOUTH ONCE DAILY. pantoprazole 40 mg tablet,delayed release (DR/EC) 40 mg PO DAILY Patient Comments: ONE (1) TAB(S) ORALLY ONCE A DAY 90 DAYS cholecalciferol (vitamin D3) 25 mcg (1,000 unit) capsule 25 mcg PO HS memantine 10 mg tablet 10 mg PO BID Patient Comments: TAKE 1 TABLET BY MOUTH TWICE DAILY. donepezil 5 mg tablet 5 mg PO DAILY isosorbide mononitrate 30 MG tablet 30 mg PO DAILY lisinopril 40 mg tablet 40 mg PO BID metformin 1,000 mg tablet 1,000 mg PO BID Patient Comments: TAKE 1 TABLET BY MOUTH TWICE DAILY metoprolol succinate 100 mg tablet extended release 24 hr 100 mg PO DAILY Patient Comments: TAKE 1 TABLET BY MOUTH ONCE DAILY gabapentin 100 mg capsule 100 mg PO BID Patient Comments: TAKE 1 CAPSULE BY MOUTH TWICE DAILY lorazepam 0.5 mg tablet 0.5 mg PO HS furosemide 20 mg tablet 20 mg PO DAILY 30 Days Qty: 0 0RF Patient Comments: TAKE 1 TABLET BY MOUTH DAILY. magnesium oxide 400 mg (241.3 mg magnesium) tablet 400 mg PO BID Patient Comments: TAKE 1 TABLET BY MOUTH TWICE DAILY ferrous sulfate [FeroSul] 325 mg (65 mg iron) tablet 325 mg PO DAILY Patient Comments: TAKE ONE (1) TABLET BY MOUTH DAILY ,TAKE WITHVITAMINC amlodipine 5 MG tablet 5 mg PO DAILY Referrals Follow up/Referrals: Roe Gleason MD [Primary Care Provider, Internal Medicine] - See instructions Clinical Impressions Clinical Impression: Severe sepsis, Multifocal pneumonia, Acute hypoxic respiratory failure Print Language Print Language: Ukrainian Discharge ED Provider: Falguni Torres General Adult HPI General Chief complaint: Shortness of Breath/Dyspnea Stated complaint: Low Oxygen Time Seen by Provider: 09/24/24 08:03 Mode of Arrival: Ambulatory Source of Information: Patient and Relative Description of Symptoms (Recalled from ER Triage Doc. by RN): Patient presents to ED with c/o congested cough and feeling awful beginning this morning. Patient does not report feeling SOA, but sats of 68% on 4LNC. Wears 2LNC at baseline. Patient's family reports they noticed productive cough began last night. History of Present Illness HPI narrative: Patient is a 73-year-old with a history of COPD on 2 L nasal cannula at home presents today with relatively abrupt onset shortness of breath and hypoxemia. She is with her family is at the bedside and they had at home pulse oximeter which is typically normal for her and they found that her oxygen saturations were in the 50s. She came in prior to my evaluation of oxygen saturations at 68% on 4 L nasal cannula. Family has noticed a coarse cough but she has not had any symptoms prior to yesterday. No fevers that they are aware of objectively. She has not had increased wheezing. She has not been complaining about anything and simply became encephalopathic this morning. Does have a history of pneumonia as well. With recent hospitalizations. Related Data Home Medications ?Medication ?Instructions ?Recorded ?Confirmed atorvastatin 80 mg tablet 80 mg PO HS 04/05/17 09/09/24 aspirin 325 mg tablet 325 mg PO DAILY 09/14/17 09/09/24 isosorbide mononitrate 30 mg 30 mg PO DAILY 03/26/18 09/09/24 tablet,extended release 24 hr amlodipine 5 mg tablet 5 mg PO DAILY 05/20/19 09/09/24 cholecalciferol (vitamin D3) 25 25 mcg PO HS 03/13/20 09/09/24 mcg (1,000 unit) capsule memantine 10 mg tablet 10 mg PO BID 09/18/20 09/09/24 donepezil 5 mg tablet 5 mg PO DAILY 05/21/21 09/09/24 multivitamin (Daily Multi-Vitamin 1 tab PO DAILY 12/03/21 09/09/24 tablet) escitalopram oxalate 10 mg tablet 10 mg PO DAILY 06/17/22 09/09/24 lisinopril 40 mg tablet 40 mg PO BID 01/21/23 09/09/24 metformin 1,000 mg tablet 1,000 mg PO BID 01/22/23 09/09/24 metoprolol succinate 100 mg 100 mg PO DAILY 01/22/23 09/09/24 tablet,extended release 24 hr pantoprazole 40 mg tablet,delayed 40 mg PO DAILY 02/21/24 09/09/24 release gabapentin 100 mg capsule 100 mg PO BID 12/16/24 06/16/25 lorazepam 0.5 mg tablet 0.5 mg PO HS 03/11/24 09/09/24 ferrous sulfate 325 mg (65 mg 325 mg PO DAILY 06/27/24 09/09/24 iron) tablet (FeroSul) magnesium oxide 400 mg (241.3 mg 400 mg PO BID 06/27/24 09/09/24 magnesium) tablet Previous Rx's ?Medication ?Instructions ?Recorded furosemide 20 mg tablet 20 mg PO DAILY 30 days #0 tabs 03/13/24 Allergies Allergy/AdvReac Type Severity Reaction Status Date / Time Iodinated Contrast Media Allergy Mild Unknown Verified 09/09/24 11:03 allergy reaction naproxen Allergy Mild Unknown Verified 09/09/24 11:03 allergy reaction PFSH [facility] Disclaimer: The information contained in this section may have been updated after the patient was seen, as this information can be updated by other users. Medical History Pericardial effusion Diabetes mellitus Hyperlipidemia Hypertensive heart disease Hypertension CAD (coronary artery disease) Cataract SVT (supraventricular tachycardia) COPD exacerbation COPD (chronic obstructive pulmonary disease) Respiratory failure with hypoxia History of CVA (cerebrovascular accident) Vomiting Weight loss Lumbar stenosis Thoracic compression fracture Cerebral atrophy Sepsis UTI (urinary tract infection) CAP (community acquired pneumonia) Carotid artery stenosis Tobacco dependence syndrome Coronary arteriosclerosis Surgical History History of coronary artery bypass graft S/P CABG x 3 Family History Other Diabetes Family history of hyperlipidemia Family history of hypertension Parkinsons Social History Smoking Status: Former smoker tobacco type: cigarettes packs per day: 1 alcohol intake: never counseling provided: none substance use type: denies use current occupational status: retired Travel in the last 8 weeks?: Inside the [place] household members: family housing: house caffeine: Yes Have you lived/traveled outside [place] in past 30 days?: No Contact w/someone who lives/traveled outside [place] past 30 days?: No Exposure to someone with infectious disease in past 14 days?: No Do you have a fever (greater than 100.4 F or 38 C)?: No Have you tested positive for COVID-19?: No Exposed to someone with COVID-19 in past 14 days?: No Do you have a sore throat?: No Do you have a cough?: No Do you have any weakness?: No Do you have any diarrhea?: No Are you experiencing any unusual bleeding?: No Do you have any muscle aches/pain?: No Do you have any abdominal pain?: No Are you experiencing loss of taste or smell?: No Other Medical History Have you received the Flu Vaccine for this season: No Have you received the Pneumonia Vaccine: Yes ROS Obtained: Yes All systems reviewed & no additional complaints except as documented Physical Exam General General appearance: in distress Respiratory Respiratory exam: Present other (Patient's oxygen saturations on my evaluation are 98% on nonrebreather she has diffuse coarse breath sounds right worse than left she is mildly tachypneic no wheezing or prolonged expiratory phase noted) Cardiovascular Cardiovascular exam: Present regular rate and normal rhythm Neurological Exam Neurological exam: Present alert and oriented X3 Medical Decision Making Medical Records Screening: Per USPSTF and CDC recommendations, given the prevalence of disease in our region, it is our hospital?s policy to screen for HIV and viral Hepatitis for all patients aged 18 and over and those with ongoing risk factors. Jose Inquiry Pt receiving controlled substance: No Vital Signs: 09/24/24 08:08 09/24/24 08:14 09/24/24 08:15 Temperature 99.3 F Temperature Source Oral Pulse Rate 86 89 Pulse Rate [Right Radial] 93 H Respiratory Rate 34 H 22 21 Blood Pressure Blood Pressure [Right Arm] 148/62 H Blood Pressure Mean Blood Pressure Mean [Right Arm] 90 Blood Pressure Source [Right Arm] Automatic Cuff Blood Pressure Position [Right Arm] Sitting 02 Sat by Pulse Oximetry 100 98 100 Oxygen Delivery Method Non-Rebreather Non-Rebreather Non-Rebreather Oxygen Flow Rate (LPM) 15 15 15 Fraction of Inspired Oxygen 09/24/24 08:41 09/24/24 09:00 09/24/24 09:59 Temperature Temperature Source Pulse Rate 84 Pulse Rate [Right Radial] Respiratory Rate 22 Blood Pressure 109/57 L 107/66 L Blood Pressure [Right Arm] Blood Pressure Mean 76 Blood Pressure Mean [Right Arm] Blood Pressure Source [Right Arm] Blood Pressure Position [Right Arm] 02 Sat by Pulse Oximetry 91 L 91 L 94 L Oxygen Delivery Method Nasal Cannula Vapotherm Oxygen Flow Rate (LPM) 4 30 Fraction of Inspired Oxygen 50 Lab Data Lab results reviewed: Yes I reviewed the patient's lab results. Lab Results 09/24/24 08:04: WBC 19.1 H, RBC 4.19 L, Hgb 11.7 L, Hct 37.1, MCV 88.5, MCH 27.9, MCHC 31.5 L, RDW 17.0, Plt Count 336, MPV 10.6 H, Neut % (Auto) 84.3 H, Lymph % (Auto) 8.8 L, Nye % (Auto) 6.0, Eos % (Auto) 0.0 L, Baso % (Auto) 0.3, Neut # (Auto) 16.1 H, Lymph # (Auto) 1.7, Nye # (Auto) 1.2 H, Eos # (Auto) 0.0, Baso # (Auto) 0.1, D-Dimer 1.19 H, Sodium 137, Potassium 3.8, Chloride 92 L, Carbon Dioxide 32 H, Anion Gap 16.8 H, BUN 18 H, Creatinine 0.70, Estimated Creat Clear 45, Estimated GFR 82, Est GFR ( Amer) 99, Glucose 219 H, Calcium 9.3, Total Bilirubin 0.6, AST 36, ALT 26, Alkaline Phosphatase 115, Troponin I < 0.01, NT-Pro-B Natriuret Pep 5060 H, Total Protein 7.2, Albumin 4.1, Globulin 3.1, Albumin/Globulin Ratio 1.3, SARS-CoV-2 (PCR) Not detected, Influenza A Untype (PCR) Not detected, Influenza Type B (PCR) Not detected 09/24/24 08:08: VBG pH 7.40, VBG pCO2 46.2, VBG pO2 61.8 H, VBG HCO3 27.8, VBG Total CO2 29.2 H, VBG O2 Saturation 90.5 H, VBG Base Excess 2.9 H, VBG Lactic Acid 4.4 H 09/24/24 08:04 09/24/24 08:04 Orders (Tests/Meds): ED MEDICATIONS Generic Name Dose Route Start Last Admin Trade Name Freq PRN Reason Stop Dose Admin Vancomycin HCl 1,000 mg/ 250 mls @ 125 mls/hr 09/24/24 09:45 Sodium Chloride IV 09/24/24 11:44 ONCE ONE Miscellaneous 1 each 09/24/24 09:30 Vancomycin Consult Request NOTAPPLIC 10/24/24 09:29 CONSULT [facility] Discontinued Medications Generic Name Dose Route Start Last Admin Trade Name Morteza PRN Reason Stop Dose Admin Cefepime HCl 2 gm/ Sodium 100 mls @ 200 mls/hr 09/24/24 09:27 Chloride IV 09/24/24 09:56 ONCE ONE Azithromycin 500 mg/ Sodium 250 mls @ 250 mls/hr 09/24/24 09:27 Chloride IV 09/24/24 09:28 ONCE ONE Iopamidol 75 ml 09/24/24 09:27 09/24/24 09:29 Iopamidol-370 (76%);100ml Bottle IV 09/24/24 09:28 75 ml ONCE ONE Administration Sodium Chloride 50 ml 09/24/24 09:27 09/24/24 09:29 0.9 % Sodium Chloride 50 Ml Vial IV 09/24/24 09:28 50 ml ONCE ONE Administration ORDERS Category Date Time Status CT angio chest PE protocol Stat Cat Scan 09/24/24 08:16 Taken POCUS Point of Care (ER Only) Stat Exams 09/24/24 08:06 Completed BNP [NT Pro Brain Natriuretic Pep.] Stat Lab 09/24/24 08:04 Completed CBC w/Auto Diff [Complete Blood Count Auto Diff] Stat Lab 09/24/24 08:04 Completed CMP [Comprehensive Metabolic Panel] Stat Lab 09/24/24 08:04 Completed D-Dimer Stat Lab 09/24/24 08:04 Completed Rapid PCR Covid and Flu A/B Stat Lab 09/24/24 08:04 Completed Trop I [Troponin I] Stat Lab 09/24/24 08:04 Completed Troponin I Q3H Lab 09/24/24 11:30 Ordered Troponin I Q3H Lab 09/24/24 14:30 Ordered UA [Urinalysis and Microscopic] Stat Lab 09/24/24 08:17 Ordered Blood Culture Stat Micro 09/24/24 08:28 Received VBG [Venous Blood Gas] Stat RT 09/24/24 08:08 Completed ECG Data Tracing #1: I reviewed this ECG and interpreted as documented below: Ventricular rate of 92 normal sinus rhythm there is a first-degree AV block noted Q waves in the anterior leads age-indeterminate otherwise no acute ischemic changes noted no other significant conduction abnormalities Tissue Perfus/Sepsis Re-Eval Sepsis Re-Evaluation Performed: Yes Date Performed: 09/24/24 Time Performed: 10:05 Medical Decision Narrative: 73-year-old presenting today in extremis with acute hypoxic respiratory failure. Patient was encephalopathic likely secondary to the profound hypoxemia on arrival. Differential includes pulmonary edema and decompensated heart failure, COPD exacerbation, pneumonia, pulmonary embolism etc. Will get a contrasted CT scan for further evaluation. Limited ultrasound of the heart and lungs did not definitively yield a diagnosis. However her presentation does not seem consistent with a COPD exacerbation as she has not tight on my exam. Broad differential is pending patient is critically ill after discussion with her family she is DNR which includes no intubation for this particular patient. Will reassess shortly. Reassessment at 10:02 AM perfusion assessments appear good maps have been above 60 with her heart failure will not be aggressive with fluid resuscitation Vanco cefepime and azithromycin have been initiated. This was secondary to my personal interpretation of patient CT scan which shows dense consolidation in the right middle and lower lobes and multifocal pneumonia that includes the left lower lobe as well. At the moment no signs or symptoms of this being a COPD exacerbation no steroids or breathing treatments have been administered. Family is very aware that she has a very poor prognosis at the moment. She is DNR and they have not made a decision about not being intubated definitively after further discussion and will discuss further goals of care with hospital medicine. Patient does not need to be intubated at the moment is doing well on high flow nasal cannula we have her at 30 L and 50% FiO2 with oxygen saturations in the mid 90s. Patient does have a diagnosis of severe sepsis. Procedures Miscellaneous Procedure Procedure Performed: Limited cardiac ultrasound Indication: Dyspnea Identified structures: The heart was visualized in the parasternal long axis, parastenal short axis, apical four chamber and subxyphiod views. The IVC was visualized in the short axis and long axis at its entry into the right atrium. Findings: Significant LVH noted with normal LVEF no significant or severe right heart strain noted no pericardial effusion Impression: Unremarkable emergency limited ultrasound of the heart Images were saved to permanent archive The study was technically adequate CPT: 91221-45 This study was performed by me, and I personally interpreted all images/videos. Based on my clinical judgement, these images were adequate and did not necessitate further imaging. Limited lung ultrasound A focused ultrasound exam of the pleural spaces was performed to evaluate for pneumothorax, pulmonary edema, pleural effusion and/or consolidation. The ultrasound was performed with the following indications, as noted in the H&P: Dyspnea Identified structures: Right and left thoracic cavities were examined. Findings: Lung sliding present throughout no obvious B-lines throughout anterior lateral lung russell no obvious pleural effusions noted either Impression: Unremarkable bilateral limited ultrasound of the lungs Images were saved to permanent archive The study was technically adequate CPT 05619-78 This study was performed by me, and I personally interpreted all images/videos. Based on my clinical judgement, these images were adequate and did not necessitate further imaging. Critical Care Critical Care Time Critical Care Time: Yes Attestation: On 09/24/24, the high probability of a clinically significant, sudden or life threatening deterioration of the following system(s) required my full and direct attention, intervention and personal management. The time I documented below is in addition to time spent performing reported procedures but includes the following listed in this critical care notation. Total Time Total Critical Care Time: 65
[2024-09-24 08:31] LABS: Alanine Aminotransferase 26 U/L (12-78); Albumin Level 4.1 g/dl (3.5-5.0); Albumin/Globulin Ratio 1.3 (1.1-1.8); Alkaline Phosphatase 115 U/L (38-126); Anion Gap 16.8 mEq/L (5-15); Aspartate Amino Transferase 36 U/L (14-36); Bilirubin,Total 0.6 mg/dl (0.2-1.3); Blood Urea Nitrogen 18 mg/dl (7-17); Calcium 9.3 mg/dl (8.4-10.2); Carbon Dioxide 32 mmol/L (22.0-30.0); Chloride 92 mmol/L (98-107); Creatinine Clearance Estimated 45 mL/min (50-200); Creatinine,Serum 0.70 mg/dl (0.52-1.04); Estimated Glomerular Filt Rate 82 ml/min (>60); GFR (African American) 99 ML/MIN (>60); Globulin 3.1 g/dL (1.3-3.2); Glucose 219 mg/dl (74-100); Potassium 3.8 mmoL/L (3.5-5.1); Sodium 137 mmol/L (136-145); Total Protein,Serum 7.2 g/dl (6.3-8.2)
--- NOTE | 2024-09-24 08:31 | PC.NURSE ---
Checked w/ Dr. Torres, pt is incontinent and unable to provided a clean catch UA. Dr. Torres states no need for UA @ this time.
[2024-09-24 08:37] LABS: D-Dimer 1.19 ug/mL (0.0-0.5)
--- NOTE | 2024-09-24 08:41 | PC.NURSE ---
Pt cleaned up, john care provided, purwick placed and pt put into hospital gown. Warm blanket provided. Family updated on POC. Call farhad w/in reach. No needs @ this time.
[2024-09-24 08:43] LABS: NT Pro Brain Natriuretic Pep. 5060 pg/mL (0-125)
[2024-09-24 08:44] LABS: Troponin I < 0.01 ng/ml (0.00-0.034)
--- NOTE | 2024-09-24 09:27 | PC.NURSE ---
RT notified of need for vapotherm
[2024-09-24] MEDS: IOPAMIDOL-370 (76%);100ML BOTTLE 75 ML IV (09:29)
[2024-09-24] MEDS: 0.9 % SODIUM CHLORIDE 50 ML VIAL IV (09:29)
--- NOTE | 2024-09-24 09:32 | PC.NURSE ---
Dr. Torres @ bedside speaking w/ family
--- NOTE | 2024-09-24 10:01 | PC.NURSE ---
pharmacy called for antibiotics and vanc consult
--- NOTE | 2024-09-24 10:03 | EXP.HP ---
History of Present Illness *Admission Date: 09/24/24 *Reason for visit:: Hypoxia, short of breath, confusion *History of present illness: Ms. Stone is a 73-year-old female history of CVA with residual right sided deficits, CABG, CHF, who presented with acute hypoxia to the ER. Normally wears 2 to 3 L of oxygen at home. Has been feeling more short of breath over the past 1 to 2 days. Today she was quite dyspneic and family had to turn her oxygen up and was unable to get her oxygen saturations above 90%. Brought to the ER for hypoxia. Found to have sats in the 60s on arrival. Patient has had a coarse cough over the past 1 to 2 days. Denies fever. No nausea or vomiting. Was assisting with transitions as recent as yesterday. Is nonambulatory due to residual stroke deficits. Denies chest pain. Workup in the ER concerning for multiple abnormalities. White count elevated at 19, chest imaging with dense consolidation of right middle and left lower lobes. Elevated BNP of 5000. Meeting sepsis criteria. Started on broad-spectrum antibiotics with azithromycin, cefepime, vancomycin. Fluids were held due to concern for component of volume overload. No sepsis bolus administered. Medicine consulted for admission Admitted patient to the ICU, upon arrival, she had worsening respiratory decline and is on Vapotherm 40 L 100%. Appears less dyspneic, heart rate is improved in sinus rhythm. Condition very tenuous. Quite weak on exam. Unable to answer any questions. Did look at me and smiled when I came in the room. Family at bedside helps supplement history [facility] Disclaimer: The information contained in this section may have been updated after the patient was seen, as this information can be updated by other users. Medical History Pericardial effusion Diabetes mellitus Hyperlipidemia Hypertensive heart disease Hypertension CAD (coronary artery disease) Cataract SVT (supraventricular tachycardia) COPD exacerbation COPD (chronic obstructive pulmonary disease) Respiratory failure with hypoxia History of CVA (cerebrovascular accident) Vomiting Weight loss Lumbar stenosis Thoracic compression fracture Cerebral atrophy Sepsis UTI (urinary tract infection) CAP (community acquired pneumonia) Carotid artery stenosis Tobacco dependence syndrome Coronary arteriosclerosis Surgical History History of coronary artery bypass graft S/P CABG x 3 Family History Diabetes Family history of hypertension Family history of hyperlipidemia Parkinsons Social History Smoking Status: Former smoker tobacco type: cigarettes packs per day: 1 alcohol intake: never counseling provided: none substance use type: denies use current occupational status: retired Travel in the last 8 weeks?: Inside the [place] household members: family housing: house caffeine: Yes Have you lived/traveled outside US in past 30 days?: No Contact w/someone who lives/traveled outside US past 30 days?: No Exposure to someone with infectious disease in past 14 days?: No Do you have a fever (greater than 100.4 F or 38 C)?: No Have you tested positive for COVID-19?: No Exposed to someone with COVID-19 in past 14 days?: No Do you have a sore throat?: No Do you have a cough?: No Do you have any weakness?: No Do you have any diarrhea?: No Are you experiencing any unusual bleeding?: No Do you have any muscle aches/pain?: No Do you have any abdominal pain?: No Are you experiencing loss of taste or smell?: No Other Medical History Have you received the Flu Vaccine for this season: No Have you received the Pneumonia Vaccine: Yes Review of Systems Review of Systems Review of systems (narrative): 14 point review of systems performed, pertinent positives and negatives as per HPI Meds Home Medications and Allergies Home Medications ?Medication ?Instructions ?Recorded ?Confirmed ?Type atorvastatin 80 mg tablet 80 mg PO HS 04/05/17 09/24/24 History aspirin 325 mg tablet 325 mg PO DAILY 09/14/17 09/24/24 History isosorbide mononitrate 30 mg 30 mg PO DAILY 03/26/18 09/24/24 History tablet,extended release 24 hr amlodipine 5 mg tablet 5 mg PO DAILY 05/20/19 09/24/24 History cholecalciferol (vitamin D3) 25 25 mcg PO HS 03/13/20 09/24/24 History mcg (1,000 unit) capsule memantine 10 mg tablet 10 mg PO BID 09/18/20 09/24/24 History donepezil 5 mg tablet 5 mg PO DAILY 05/21/21 09/24/24 History multivitamin (Daily Multi-Vitamin 1 tab PO DAILY 12/03/21 09/24/24 History tablet) escitalopram oxalate 10 mg tablet 10 mg PO DAILY 06/17/22 09/24/24 History lisinopril 40 mg tablet 40 mg PO BID 01/21/23 09/24/24 History metformin 1,000 mg tablet 1,000 mg PO BID 01/22/23 09/24/24 History metoprolol succinate 100 mg 100 mg PO DAILY 01/22/23 09/24/24 History tablet,extended release 24 hr pantoprazole 40 mg tablet,delayed 40 mg PO DAILY 02/21/24 09/24/24 History release gabapentin 100 mg capsule 100 mg PO BID 03/11/24 09/24/24 History lorazepam 0.5 mg tablet 0.5 mg PO HS 03/11/24 09/24/24 History furosemide 20 mg tablet 20 mg PO DAILY 30 days #0 tabs 03/13/24 09/24/24 Rx ferrous sulfate 325 mg (65 mg 325 mg PO DAILY 06/27/24 09/24/24 History iron) tablet (FeroSul) magnesium oxide 400 mg (241.3 mg 400 mg PO BID 06/27/24 09/24/24 History magnesium) tablet New Prescriptions to Start Prescriptions: Allergies Allergy/AdvReac Type Severity Reaction Status Date / Time Iodinated Contrast Media Allergy Mild Unknown Verified 09/24/24 12:10 allergy reaction naproxen Allergy Mild Unknown Verified 09/24/24 12:10 allergy reaction Exam Data for Last 24 hours Vital signs and Labs for Last 24 Hours: Temp Pulse Resp BP Pulse Ox O2 Del Method O2 Flow Rate 99.3 F 84 22 107/66 L 94 L Vapotherm 30 09/24/24 08:14 09/24/24 08:41 09/24/24 08:41 09/24/24 09:00 09/24/24 09:59 09/24/24 09:59 09/24/24 09:59 FiO2 50 09/24/24 09:59 Laboratory Results - last 24 hr 09/24/24 08:04: WBC 19.1 H, RBC 4.19 L, Hgb 11.7 L, Hct 37.1, MCV 88.5, MCH 27.9, MCHC 31.5 L, RDW 17.0, Plt Count 336, MPV 10.6 H, Neut % (Auto) 84.3 H, Lymph % (Auto) 8.8 L, [place] % (Auto) 6.0, Eos % (Auto) 0.0 L, Baso % (Auto) 0.3, Neut # (Auto) 16.1 H, Lymph # (Auto) 1.7, [place] # (Auto) 1.2 H, Eos # (Auto) 0.0, Baso # (Auto) 0.1, D-Dimer 1.19 H, Sodium 137, Potassium 3.8, Chloride 92 L, Carbon Dioxide 32 H, Anion Gap 16.8 H, BUN 18 H, Creatinine 0.70, Estimated Creat Clear 45, Estimated GFR 82, Est GFR ( Amer) 99, Glucose 219 H, Calcium 9.3, Total Bilirubin 0.6, AST 36, ALT 26, Alkaline Phosphatase 115, Troponin I < 0.01, NT-Pro-B Natriuret Pep 5060 H, Total Protein 7.2, Albumin 4.1, Globulin 3.1, Albumin/Globulin Ratio 1.3, SARS-CoV-2 (PCR) Not detected, Influenza A Untype (PCR) Not detected, Influenza Type B (PCR) Not detected 09/24/24 08:08: VBG pH 7.40, VBG pCO2 46.2, VBG pO2 61.8 H, VBG HCO3 27.8, VBG Total CO2 29.2 H, VBG O2 Saturation 90.5 H, VBG Base Excess 2.9 H, VBG Lactic Acid 4.4 H I & O for Last 24 hours: Intake & Output 09/21/24 09/22/24 09/23/24 09/24/24 23:59 23:59 23:59 23:59 Weight 56.699 kg Constitutional Constitutional: moderate distress, thin, chronically ill appearing, cooperative and somnolent *Routine HEENT Exam Head: Present normocephalic Eye: Present EOMI and PERRL ENT: Present mucous membranes moist *Routine Neck Exam Neck: Present supple; Absent lymphadenopathy *Routine Respiratory Exam Respiratory: Present accessory muscle use, prolonged expiratory phase, crackles (Left lower lung field and right lung field) and diminished air movement; Absent rhonchi or wheezes *Routine Cardiovascular Exam Cardiovascular: Present RRR *Routine Abdominal Exam Abdominal: Present soft and normoactive bowel sounds; Absent tenderness *Routine Rectal Exam Rectal:: deferred *Routine Genitalia Exam Genitalia:: deferred *Routine Extremities Exam Extremities: Absent cyanosis, clubbing or edema *Routine Skin Exam Skin: Present warm; Absent rash *Routine Neurological Exam Neurological: Present alert; Absent altered mental status or moving all extremities Comments: Right sided deficits; oriented to self and place Assessment and Plan *Assessment and plan (1) Severe sepsis: Status: Acute Category: Medical Code(s): A41.9 - Sepsis, unspecified organism; R65.20 - Severe sepsis without septic shock (2) Multifocal pneumonia: Status: Acute Category: Medical Code(s): J18.9 - Pneumonia, unspecified organism (3) Acute hypoxic respiratory failure: Status: Acute Category: Medical Code(s): J96.01 - Acute respiratory failure with hypoxia (4) Hypertension: Status: Acute Qualifiers: Hypertension type: primary hypertension Qualified Code(s): I10 - Essential (primary) hypertension Category: Medical Code(s): I10 - Essential (primary) hypertension (5) Diabetes mellitus: Status: Acute Qualifiers: Diabetes mellitus complication status: without complication Diabetes mellitus lab[employer] insulin use: without senior living use Diabetes mellitus type: type 2 Qualified Code(s): E11.9 - Type 2 diabetes mellitus without complications Category: Medical Code(s): E11.9 - Type 2 diabetes mellitus without complications (6) CAD (coronary artery disease): Status: Acute Qualifiers: Associated angina: without angina Coronary Disease-Associated Artery/Lesion type: [place] artery [place] vs. transplanted heart: [place] heart Qualified Code(s): I25.10 - Atherosclerotic heart disease of [place] coronary artery without angina pectoris Category: Medical Code(s): I25.10 - Atherosclerotic heart disease of [place] coronary artery without angina pectoris (7) Diastolic CHF: Status: Acute Category: Medical Code(s): I50.30 - Unspecified diastolic (congestive) heart failure (8) Diabetes type 2, controlled: Status: Acute Category: Medical Code(s): E11.9 - Type 2 diabetes mellitus without complications (9) Vascular dementia: Status: Acute Category: Medical Code(s): F01.50 - Vascular dementia, unspecified severity, without behavioral disturbance, psychotic disturbance, mood disturbance, and anxiety (10) History of CVA (cerebrovascular accident): Status: Chronic Category: Medical Code(s): Z86.73 - Personal history of transient ischemic attack (TIA), and cerebral infarction without residual deficits Plan 73-year-old female with history of CHF, CABG, CAD, CVA, diabetes, dementia. Presented with acute worsening shortness of breath. Workup in the ER concerning for CHF exacerbation, evere sepsis, multifocal pneumonia. Discussed case with ER physician, request admission for further treatment of respiratory failure. I agreed to admit for further management. Meeting severe sepsis criteria with white count of 19, tachycardia with heart rate of 93, infection on CT, multiorgan dysfunction. Fluid bolus held on admission due to component of CHF with elevated BNP suggestive of volume overload. Will trial diuresis once with Lasix 40 mg IV. Initiated on broad-spectrum antibiotics. Condition critical, prognosis guarded. On maximal noninvasive ventilation with Vapotherm 40 L and 100%. Admitted to ICU. Problems addressed as follows: cute on chronic hypoxemic respiratory failure CHF exacerbation Pneumonia -Continue supplemental oxygen for goal sats greater 90%. Currently Vapotherm 40 liters, 100%. - Continue cefepime and vancomycin IV, monitor for toxicity of kidney function - Blood and sputum cultures pending -Continue Lasix 40 mg IV twice daily. Strict I's and O's -BNP elevated at 5000, Troponin negative at less than 0.01. - BUN 18, creatinine 0.7, potassium 3.8. White count 19. Hemoglobin 11.7. - Per my review of chest CT, has right middle lobe consolidation and left lower lobe consolidation. - Repeat CBC, CMP, magnesium ordered for the morning - Pulmonology consulted to assist with care. Will attempt flutter valve, hold on percussion or hypertonic saline due to weak cough and frailty of patient. Will consider CTA chest if vitals worsens such as increased tachycardia and lower blood pressure. - VBG with pH 7.4, pCO2 46. Respiratory failure strictly hypoxic Diabetes: A1c 6.1. Glucose well controlled, 121 on morning labs, DC sliding scale insulin with fingersticks ACHS. Continue home metformin at 1000 mg twice daily Hypertension: Holding home blood pressure medication at this time to allow for diuresis. Will consider resuming when more hemodynamically stable or hypertensive - Continue metoprolol succinate 100 mg daily in the morning. GERD: Continue pantoprazole 40 mg daily p.o. History of CVA: continue Lipitor 80 mg daily for hyperlipidemia, continue aspirin 325 mg daily Depression: Holding Lexapro due to somnolence Vascular dementia: Holding donepezil and memantine due to somnolence. DNR Lovenox 40 mg subcu daily Cardiac diet
--- NOTE | 2024-09-24 10:05 | PC.NURSE ---
Spoke w/ Dr. Torres about fluid resusc r/t pt triggering sepsis criteria. MD wishes to not start any fluids @ this time. Pt's BP is 129/45 and HR is 79 @ the time of documentation.
--- NOTE | 2024-09-24 10:09 | PC.NURSE ---
1007 -RT contacted, pt SPO2 86-87 on 30L/50%. Repositioned pt to moved pulse ox, pleth is consisistent w/ a good waveform. 1010 - RT @ bedside
--- NOTE | 2024-09-24 10:15 | PC.NURSE ---
Vapotherm increased to 40L/100% by RT, sat currently 91-92%
[2024-09-24] MEDS: CEFEPIME HCL 2 GM in 0.9 % SODIUM CHLORIDE 100 ML IV ×2 (10:20→21:01)
[2024-09-24] MEDS: AZITHROMYCIN 500 MG in 0.9 % SODIUM CHLORIDE 250 ML 250 MG IV (10:23)
[2024-09-24] MEDS: SODIUM CHLORIDE 3% 15ML NEB 3 ML IH (10:40)
[2024-09-24] MEDS: IPRATROPIUM/ALBUTEROL 3 ML NEB IH ×4 (10:40→21:54)
--- NOTE | 2024-09-24 11:13 | PC.NURSE ---
Notified HS of admission. Awaiting bed assignment.
--- NOTE | 2024-09-24 11:26 | PC.NURSE ---
Oral care provided and moist toothettes provided. No further needs
--- NOTE | 2024-09-24 11:28 | PC.NURSE ---
report called to Marisela THOMPSON
--- NOTE | 2024-09-24 11:37 | PC.NURSE ---
Pt arrived to the ICU via [employer] @[id number]
--- NOTE | 2024-09-24 11:38 | PC.NURSE ---
Code status reviewed w/ pt and pt's family by Dr. Torres. DNR/DNI signed and placed on pt's chart.
--- NOTE | 2024-09-24 11:39 | PC.NURSE ---
Pt being transported to ICU by staff @ this time
[2024-09-24 12:05] LABS: Troponin I < 0.01 ng/ml (0.00-0.034)
--- NOTE | 2024-09-24 12:11 | PC.NURSE ---
dr mon at bedside
[2024-09-24 12:12] LABS: Reflex Lactic Add Lactic Reflex
--- NOTE | 2024-09-24 12:16 | PC.NURSE ---
DR TOLENTINO AT BEDSIDE, UPDATING FAMILY AT THIS LOUIE
[2024-09-24 12:18] LABS: POC Glucose,Bedside 176 (70-110)
[2024-09-24] MEDS: VANCOMYCIN HCL 1,000 MG in 0.9 % SODIUM CHLORIDE 250 ML 125 MG IV (12:29)
--- NOTE | 2024-09-24 12:38 | HMH.PHAINT1 ---
Pharmacy Intervention Comments: HOME MEDICATION LIST VERIFIED USING LIST FROM OUTPATIENT PHARMACY
--- NOTE | 2024-09-24 12:53 | CA_ITS ---
FINAL REPORT TECHNIQUE: Bilateral lower extremity venous duplex was performed with augmentation and compression. CLINICAL HISTORY: acute hypoxic respiratory failure, sepsis, DM, HLD, HTN, CAD, COPD, hx CABG with GSV harvesting, ex smoker. currently on vapotherm for respiratory failure. FINDINGS: Proper flow is seen throughout the deep venous systems bilaterally. There is no evidence of deep venous thrombosis. IMPRESSION: No evidence of deep venous thrombosis in either lower extremity. Reviewed, Interpreted and Dictated by Clint Gaspar MD Transcribed by Lisette Desouza Authenticated and [facility]
--- NOTE | 2024-09-24 13:11 | EXP.PHA.CONS ---
Pharmacy Consult Date: 09/24/24 Time: 13:11 Referring provider: DR TOLENTINO Reason for Consult:: VANCOMYCIN DOSING CONSULT Allergies Allergy/AdvReac Type Severity Reaction Status Date / Time Iodinated Contrast Media Allergy Mild Unknown Verified 09/24/24 12:10 allergy reaction naproxen Allergy Mild Unknown Verified 09/24/24 12:10 allergy reaction Home Medications ?Medication ?Instructions ?Recorded ?Confirmed ?Type atorvastatin 80 mg tablet 80 mg PO HS 04/05/17 09/24/24 History aspirin 325 mg tablet 325 mg PO DAILY 09/14/17 09/24/24 History isosorbide mononitrate 30 mg 30 mg PO DAILY 03/26/18 09/24/24 History tablet,extended release 24 hr amlodipine 5 mg tablet 5 mg PO DAILY 05/20/19 09/24/24 History cholecalciferol (vitamin D3) 25 25 mcg PO HS 03/13/20 09/24/24 History mcg (1,000 unit) capsule memantine 10 mg tablet 10 mg PO BID 09/18/20 09/24/24 History donepezil 5 mg tablet 5 mg PO DAILY 05/21/21 09/24/24 History multivitamin (Daily Multi-Vitamin 1 tab PO DAILY 12/03/21 09/24/24 History tablet) escitalopram oxalate 10 mg tablet 10 mg PO DAILY 06/17/22 09/24/24 History lisinopril 40 mg tablet 40 mg PO BID 01/21/23 09/24/24 History metformin 1,000 mg tablet 1,000 mg PO BID 01/22/23 09/24/24 History metoprolol succinate 100 mg 100 mg PO DAILY 01/22/23 09/24/24 History tablet,extended release 24 hr pantoprazole 40 mg tablet,delayed 40 mg PO DAILY 02/21/24 09/24/24 History release gabapentin 100 mg capsule 100 mg PO BID 03/11/24 09/24/24 History lorazepam 0.5 mg tablet 0.5 mg PO HS 03/11/24 09/24/24 History furosemide 20 mg tablet 20 mg PO DAILY 30 days #0 tabs 03/13/24 09/24/24 Rx ferrous sulfate 325 mg (65 mg 325 mg PO DAILY 06/27/24 09/24/24 History iron) tablet (FeroSul) magnesium oxide 400 mg (241.3 mg 400 mg PO BID 06/27/24 09/24/24 History magnesium) tablet New Prescriptions to Start Prescriptions: Height: 1.52 m Weight: 54.686 kg Laboratory Results:: Laboratory Results - last 24 hr 09/24/24 08:04: WBC 19.1 H, RBC 4.19 L, Hgb 11.7 L, Hct 37.1, MCV 88.5, MCH 27.9, MCHC 31.5 L, RDW 17.0, Plt Count 336, MPV 10.6 H, Neut % (Auto) 84.3 H, Lymph % (Auto) 8.8 L, [place] % (Auto) 6.0, Eos % (Auto) 0.0 L, Baso % (Auto) 0.3, Neut # (Auto) 16.1 H, Lymph # (Auto) 1.7, [place] # (Auto) 1.2 H, Eos # (Auto) 0.0, Baso # (Auto) 0.1, D-Dimer 1.19 H, Sodium 137, Potassium 3.8, Chloride 92 L, Carbon Dioxide 32 H, Anion Gap 16.8 H, BUN 18 H, Creatinine 0.70, Estimated Creat Clear 45, Estimated GFR 82, Est GFR ( Amer) 99, Glucose 219 H, Calcium 9.3, Total Bilirubin 0.6, AST 36, ALT 26, Alkaline Phosphatase 115, Troponin I < 0.01, NT-Pro-B Natriuret Pep 5060 H, Total Protein 7.2, Albumin 4.1, Globulin 3.1, Albumin/Globulin Ratio 1.3, SARS-CoV-2 (PCR) Not detected, Influenza A Untype (PCR) Not detected, Influenza Type B (PCR) Not detected 09/24/24 08:08: VBG pH 7.40, VBG pCO2 46.2, VBG pO2 61.8 H, VBG HCO3 27.8, VBG Total CO2 29.2 H, VBG O2 Saturation 90.5 H, VBG Base Excess 2.9 H, VBG Lactic Acid 4.4 H 09/24/24 11:20: Troponin I < 0.01 09/24/24 12:09: POC Glucose 176 H Medical History: Medical History (Updated 09/24/24 @ 10:01 by Falguni Torres MD) Pericardial effusion Diabetes mellitus Hyperlipidemia Hypertensive heart disease Hypertension CAD (coronary artery disease) Cataract SVT (supraventricular tachycardia) COPD exacerbation COPD (chronic obstructive pulmonary disease) Respiratory failure with hypoxia History of CVA (cerebrovascular accident) Vomiting Weight loss Lumbar stenosis Thoracic compression fracture Cerebral atrophy Sepsis UTI (urinary tract infection) CAP (community acquired pneumonia) Carotid artery stenosis Tobacco dependence syndrome Coronary arteriosclerosis Assessment and Plan Assessment and plan all Dx Assessment and Plan for all problems:: Pharmacokinetic dosing service Objective: Age: 73 yo Serum creatinine: 1 mg/dL Height: 59.8 Inches Weight (kg): 54.686 Assessment: IBW (kg): 45.35 Dosing wt(kg): 54.686 Estimated Creatinine clearance (ml/min): 35.9 CRCL method: Cockcroft and Gault using ibw(default). Drug selected: Vancomycin Loading dose (mg): 1000 MG Vd (liters): 38.3 (factor used: 0.7 L/kg) Larry (hr-1): 0.034 Half life (hrs): 20.39 CLvanco=?? 1.302 L/hr Recommended dose: 750 mg Interval: 24 hrs Infusion time (hrs): 2.0 Predicted peak (mcg/mL): 33.9 Predicted trough (mcg/mL): 16.05 Total body weight is being used for vancomycin dosing. Recommendations: Give Vancomycin 750 mg q 24 hrs with an expected Cpeak of 33.9 mcg/ml and an expected Ctrough of 16.05 mcg/ml TO START 09/25/24 AT 12:00, PATIENT RECEIVED ONE TIME LOADING DOSE OF VANCOMYCIN 1000 MG IV IN THE ED 09/24/24 AT 12:29. AUC 0-24 /GAIL Data: GAIL 0.5 mcg/mL:?? AUC/GAIL:? 1152.1 GAIL 1.0 mcg/mL:?? AUC/GAIL:? 576.0 --------- GAIL 1.5 mcg/mL:?? AUC/GAIL:? 384.0 GAIL 2.0 mcg/mL:?? AUC/GAIL:? 288.0 Thank you for the consult
[2024-09-24] MEDS: FUROSEMIDE 40MG/4ML VIAL 40 MG IV (13:43)
--- NOTE | 2024-09-24 13:47 | PC.NURSE ---
ECHO AT BEDSIDE
[2024-09-24 15:05] LABS: Lactic Acid Follow Up (RFLX 1) 2.8 mmol/L (0.7-2.1)
[2024-09-24 15:19] LABS: Troponin I < 0.01 ng/ml (0.00-0.034)
[2024-09-24 16:49] LABS: Reflex Lactic (2 hrs) Add Lactic Reflex
[2024-09-24 17:20] LABS: Lactic Acid Follow up (RFLX 2) 1.9 mmol/L (0.7-2.1)
--- NOTE | 2024-09-24 18:20 | PC.WOUNDNOTE ---
Admission pictures of pt wound to [facility].
[2024-09-24 19:43] LABS: POC Glucose,Bedside 186 (70-110)
[2024-09-25] VITALS (40 sets, daily range): BP systolic 105–174; BP diastolic 54–112; PULSE 63–159; RESP 18–35; TEMP 36.4–37.2; O2SAT 74–95; BMI 23.1
[2024-09-25] MEDS: IPRATROPIUM/ALBUTEROL 3 ML NEB IH ×6 (01:43→21:44)
[2024-09-25 04:29] LABS: Hematocrit 31.9 % (37.0-47.0); Immature Granulocytes % 0.5 %; Mean Corpuscular HGB Conc 31.0 g/dL (31.8-35.4); Mean Corpuscular Hemoglobin 27.2 pg (27.0-31.2); Mean Corpuscular Volume 87.6 fl (81-99); Nucleated Red Blood Cells % 0 %; Platelet Count 249 K/mm3 (142-424); Red Blood Count 3.64 M/mm3 (4.20-5.40); Red Cell Distribution Width-SD 53.9 fL; White Blood Count 11.8 K/mm3 (4.8-10.8)
[2024-09-25 04:44] LABS: Albumin Level 3.5 g/dl (3.5-5.0); Chloride 94 mmol/L (98-107); Potassium 3.1 mmoL/L (3.5-5.1); Sodium 141 mmol/L (136-145)
[2024-09-25 04:46] LABS: Alanine Aminotransferase 16 U/L (12-78); Aspartate Amino Transferase 21 U/L (14-36); Blood Urea Nitrogen 20 mg/dl (7-17); Creatinine Clearance Estimated 43 mL/min (50-200); Creatinine,Serum 0.80 mg/dl (0.52-1.04); Estimated Glomerular Filt Rate 70 ml/min (>60); GFR (African American) 85 ML/MIN (>60)
[2024-09-25 04:47] LABS: Albumin/Globulin Ratio 1.2 (1.1-1.8); Alkaline Phosphatase 111 U/L (38-126); Anion Gap 11.1 mEq/L (5-15); Bilirubin,Total 0.5 mg/dl (0.2-1.3); Calcium 8.0 mg/dl (8.4-10.2); Carbon Dioxide 39 mmol/L (22.0-30.0); Globulin 2.9 g/dL (1.3-3.2); Glucose 161 mg/dl (74-100); Magnesium 1.4 mg/dl (1.6-2.3); Total Protein,Serum 6.4 g/dl (6.3-8.2)
[2024-09-25 05:05] LABS: Hemoglobin 9.9 g/dL (12.2-16.2)
--- NOTE | 2024-09-25 06:50 | PC.NURSE ---
Pt rested comfortably throughout night. No significant changes in pt status.
[2024-09-25] MEDS: MEMANTINE 10MG TABLET 10 MG PO ×2 (08:32→20:31)
[2024-09-25] MEDS: FUROSEMIDE 40MG/4ML VIAL 40 MG IV ×2 (08:32→15:53)
[2024-09-25] MEDS: METOPROLOL SUCCINATE XL 100MG TABLET 100 MG PO (08:32)
[2024-09-25 08:55] LABS: POC Glucose,Bedside 191 (70-110)
[2024-09-25 08:56] LABS: POC Glucose,Bedside 171 (70-110)
[2024-09-25] MEDS: CEFEPIME HCL 2 GM in 0.9 % SODIUM CHLORIDE 100 ML IV ×2 (09:00→21:38)
[2024-09-25] MEDS: MAGNESIUM SULFATE IN WATER 2 GM/50 ML PIGGYBACK IV ×3 (09:00→11:03)
--- NOTE | 2024-09-25 09:25 | HMH.OTEV ---
OT Inpatient Evaluation Rehab OT IP Evaluation Start: 09/24/24 23:23 Freq: ONCE Status: Active Protocol: Document 09/25/24 09:17 NONA (Rec: 09/25/24 09:25 NONA [id number]) Rehab OT IP Assessment Subjective History Per HPI narrative: Patient is a 73-year-old with a history of COPD on 2 L nasal cannula at home presents today with relatively abrupt onset shortness of breath and hypoxemia. She is with her family is at the bedside and they had at home pulse oximeter which is typically normal for her and they found that her oxygen saturations were in the 50s. She came in prior to my evaluation of oxygen saturations at 68% on 4 L nasal cannula. Family has noticed a coarse cough but she has not had any symptoms prior to yesterday. No fevers that they are aware of objectively. She has not had increased wheezing. She has not been complaining about anything and simply became encephalopathic this morning. Does have a history of pneumonia as well. With recent hospitalizations. Subjective Im tired. Pt was supine in bed when therapy arrived. Pt orient x2 . Pt reported they go between their daughters homes. pt reports they haven't completed functional mobility with LB in years. Pt reported they use w/c for FM. Pt reported they need assist for transfers. Pt reported they need assist for ADLs and IADLs. Pt reports they need assist x2 typically. Pt reported they have bedside commode. Pt normally on 2 L O2. pt agreed to sit on EOB. Pt went from supine to EOB with Max A x2. Pt unable to hold static sitting balance ind, needed Max A to hold static sitting balance. Pt then reported they wanted to lie back down. Pt went from EOB to supine Max A x2. Pt left with call light and all other needs within reach. Daughters were present in waiting room and were able to report background and hx of pt more. they report they switch every week and that they would deny inpatient and HH services. they report pt is at baseline. They report they would like a lift for one of the daughters due to her being only one present at her house to perform transfers and assist pt. all other daughters have assist. They all are able to be present 24/ for care of pt. Objective Patient Orientation Name,Age Right Upper Sev Limitation >75% Extremity Gross ROM Left Upper Extremity Sev Limitation >75% Gross ROM Shoulder ROM Muscle Weakness Limitations Elbow ROM Muscle Weakness Limitations Bed Mobility bed mobility-scooting,bed mobility - supine/sit Assist Level Maximum x 2 (75% assist) Decrease in Yes Endurance Rehab OT IP prob,goals,plan Problems Date of Evaluation: 09/25/24 Rehab Potential Rehab Potential Innapropriate for Skilled Therapy Discharge Goals Commode/Toilet Raised Toilet Seat,Grab Bars Transfer Assistive Devices Discharge Plan OT Discharge Plan At this time, pt would not benefit from skilled acute OT services due to pt being at baseline. Due to family rejecting HH and inpatient services, pt can be DC to home. It would benefit caregivers to reduce burden and assist in transfers and self-care task for pt to have shower chair and raised toilet seat/grab bars. It would also benefit pt to have mechanical lift to assist with transfers. Eval Complexity Eval Charge Codes 89712 - Moderate Complexity PHYSICIAN CERTIFICATION: I certify the specified therapy services for Margarita Stone are required, authorized, and reviewed every 30 days.
--- NOTE | 2024-09-25 09:25 | EXP.PULM.CON ---
History of Present Illness History of present illness: Ms. Stone is a 73-year-old with reported history of CVA right-sided weakness, CABG CHF presented with worsening respiratory distress needing high flow nasal cannula oxygen supplementation pulmonary was called for further evaluation and management. Alicja historian. [facility] Disclaimer: The information contained in this section may have been updated after the patient was seen, as this information can be updated by other users. Medical History Pericardial effusion Diabetes mellitus Hyperlipidemia Hypertensive heart disease Hypertension CAD (coronary artery disease) Cataract SVT (supraventricular tachycardia) COPD exacerbation COPD (chronic obstructive pulmonary disease) Respiratory failure with hypoxia History of CVA (cerebrovascular accident) Vomiting Weight loss Lumbar stenosis Thoracic compression fracture Cerebral atrophy Sepsis UTI (urinary tract infection) CAP (community acquired pneumonia) Carotid artery stenosis Tobacco dependence syndrome Coronary arteriosclerosis Surgical History History of coronary artery bypass graft S/P CABG x 3 Family History Diabetes Family history of hypertension Family history of hyperlipidemia Parkinsons Social History Smoking Status: Former smoker tobacco type: cigarettes packs per day: 1 alcohol intake: never counseling provided: none substance use type: denies use current occupational status: retired Travel in the last 8 weeks?: Inside the [place] household members: family housing: house caffeine: Yes Have you lived/traveled outside US in past 30 days?: No Contact w/someone who lives/traveled outside US past 30 days?: No Exposure to someone with infectious disease in past 14 days?: No Do you have a fever (greater than 100.4 F or 38 C)?: No Have you tested positive for COVID-19?: No Exposed to someone with COVID-19 in past 14 days?: No Do you have a sore throat?: No Do you have a cough?: No Do you have any weakness?: No Do you have any diarrhea?: No Are you experiencing any unusual bleeding?: No Do you have any muscle aches/pain?: No Do you have any abdominal pain?: No Are you experiencing loss of taste or smell?: No Review of Systems Review of Systems Review of systems (narrative): Limited Constitutional Constitutional: Reports anorexia, Reports body ache(s), Reports fatigue, Reports poor appetite and Reports lethargy ENT Ears, Nose, Mouth, and Throat: Denies throat swelling *Cardiovascular Cardiovascular: Reports dyspnea and Reports dyspnea on exertion *Respiratory Respiratory: Reports change in phlegm color, Reports chest congestion, Reports cough, Reports dyspnea, Reports dyspnea on exertion, Reports excessive phlegm production, Denies hemoptysis and Reports wheezing *Gastrointestinal Gastrointestinal: Denies abdominal pain *Musculoskeletal Musculoskeletal: Reports back pain Psychiatric Psychiatric: Denies homicidal ideation and Denies suicidal ideation Endocrine Endocrine: Reports fatigue and Denies heat intolerance Hematologic/Lymphatic Hematologic/Lymphatic: Denies easy bleeding and Denies lymphadenopathy Allergic/Immunologic Allergic/Immunologic: Denies throat swelling and Reports wheezing Pulmonology Exam Inpatient Vital signs and Labs for Last 24 Hours: Temp Pulse Resp BP Pulse Ox O2 Del Method O2 Flow Rate 98.9 F 91 H 20 161/83 H 91 L Vapotherm 40 09/25/24 04:00 09/25/24 08:00 09/25/24 08:00 09/25/24 08:00 09/25/24 08:00 09/25/24 08:00 09/25/24 08:00 FiO2 90 09/25/24 08:00 Laboratory Results - last 24 hr 09/24/24 11:20: Troponin I < 0.01 09/24/24 12:09: POC Glucose 176 H 09/24/24 14:42: Lactate 2.8 H, Troponin I < 0.01 09/24/24 16:04: POC Glucose 171 H 09/24/24 17:00: Lactate 1.9 09/24/24 19:32: POC Glucose 186 H 09/25/24 04:20: WBC 11.8 H D, RBC 3.64 L, Hgb 9.9 L D, Hct 31.9 L, MCV 87.6, MCH 27.2, MCHC 31.0 L, RDW 17.1, Plt Count 249 D, MPV 10.9 H, Neut % (Auto) 86.3 H, Lymph % (Auto) 7.1 L, Gulf % (Auto) 5.8, Eos % (Auto) 0.0 L, Baso % (Auto) 0.3, Neut # (Auto) 10.1 H, Lymph # (Auto) 0.8, Gulf # (Auto) 0.7, Eos # (Auto) 0.0, Baso # (Auto) 0.0, Sodium 141, Potassium 3.1 L, Chloride 94 L, Carbon Dioxide 39 H, Anion Gap 11.1, BUN 20 H, Creatinine 0.80, Estimated Creat Clear 43, Estimated GFR 70, Est GFR ( Amer) 85, Glucose 161 H D, Calcium 8.0 L, Magnesium 1.4 L, Total Bilirubin 0.5, AST 21 D, ALT 16 D, Alkaline Phosphatase 111, Total Protein 6.4, Albumin 3.5 D, Globulin 2.9, Albumin/Globulin Ratio 1.2 09/25/24 05:46: POC Glucose 191 H I & O for Labs for Last 24 Hours: Intake & Output 09/22/24 09/23/24 09/24/24 09/25/24 23:59 23:59 23:59 23:59 Intake Total 100 / 100 170 / 170 Output Total 750 / 750 400 / 400 Balance -650 / -650 -230 / -230 Weight 120 lb 9 oz 118 lb Microbiology Reports for the Last 24 Hours: Microbiology 09/24/24 08:27 Blood Blood Culture - Preliminary NO GROWTH AFTER 24 HOURS 09/24/24 08:28 Blood Blood Culture - Preliminary NO GROWTH AFTER 24 HOURS Constitutional: Present severe distress Head: Present normocephalic and atraumatic ENT: Present normal exam, normal oropharynx and mucous membranes moist Neck: Present normal inspection and full ROM Respiratory: Present respiratory distress, rhonchi, wheezes, distant breath sounds and diminished air movement; Absent able to speak in complete sentences Cardiac: Present S1/S2, Tachycardia and radial pulses present GI: Present soft and distention; Absent tenderness or guarding Rectal (female): Present deferred (female): Present deferred Skin: Present intact; Absent cyanosis or jaundice Neuro: Present alert, awake and oriented x 3 Extremities: Present normal inspection; Absent clubbing or cyanosis Psychiatric: Present unable to assess Meds Home Medications and Allergies Home Medications ?Medication ?Instructions ?Recorded ?Confirmed ?Type atorvastatin 80 mg tablet 80 mg PO HS 04/05/17 09/24/24 History aspirin 325 mg tablet 325 mg PO DAILY 09/14/17 09/24/24 History isosorbide mononitrate 30 mg 30 mg PO DAILY 03/26/18 09/24/24 History tablet,extended release 24 hr amlodipine 5 mg tablet 5 mg PO DAILY 05/20/19 09/24/24 History cholecalciferol (vitamin D3) 25 25 mcg PO HS 03/13/20 09/24/24 History mcg (1,000 unit) capsule memantine 10 mg tablet 10 mg PO BID 09/18/20 09/24/24 History donepezil 5 mg tablet 5 mg PO DAILY 05/21/21 09/24/24 History multivitamin (Daily Multi-Vitamin 1 tab PO DAILY 12/03/21 09/24/24 History tablet) escitalopram oxalate 10 mg tablet 10 mg PO DAILY 06/17/22 09/24/24 History lisinopril 40 mg tablet 40 mg PO BID 01/21/23 09/24/24 History metformin 1,000 mg tablet 1,000 mg PO BID 01/22/23 09/24/24 History metoprolol succinate 100 mg 100 mg PO DAILY 01/22/23 09/24/24 History tablet,extended release 24 hr pantoprazole 40 mg tablet,delayed 40 mg PO DAILY 02/21/24 09/24/24 History release gabapentin 100 mg capsule 100 mg PO BID 03/11/24 09/24/24 History lorazepam 0.5 mg tablet 0.5 mg PO HS 03/11/24 09/24/24 History furosemide 20 mg tablet 20 mg PO DAILY 30 days #0 tabs 03/13/24 09/24/24 Rx ferrous sulfate 325 mg (65 mg 325 mg PO DAILY 06/27/24 09/24/24 History iron) tablet (FeroSul) magnesium oxide 400 mg (241.3 mg 400 mg PO BID 06/27/24 09/24/24 History magnesium) tablet New Prescriptions to Start Prescriptions: Allergies Allergy/AdvReac Type Severity Reaction Status Date / Time Iodinated Contrast Media Allergy Mild Unknown Verified 09/24/24 12:10 allergy reaction naproxen Allergy Mild Unknown Verified 09/24/24 12:10 allergy reaction Results Laboratory Findings 09/25/24 04:20 09/25/24 04:20 PT/INR, D-dimer D-Dimer 1.19 ug/mL (0.0-0.5) H 09/24/24 08:04 Abnormal lab findings: Abnormal Labs 09/24/24 09/24/24 09/24/24 08:04 08:08 12:09 WBC 19.1 H RBC 4.19 L Hgb 11.7 L Hct MCHC 31.5 L MPV 10.6 H Neut % (Auto) 84.3 H Lymph % (Auto) 8.8 L Eos % (Auto) 0.0 L Neut # (Auto) 16.1 H Gulf # (Auto) 1.2 H D-Dimer 1.19 H VBG pO2 61.8 H VBG Total CO2 29.2 H VBG O2 Saturation 90.5 H VBG Base Excess 2.9 H VBG Lactic Acid 4.4 H Potassium Chloride 92 L Carbon Dioxide 32 H Anion Gap 16.8 H BUN 18 H Glucose 219 H POC Glucose 176 H Lactate Calcium Magnesium NT-Pro-B Natriuret Pep 5060 H 09/24/24 09/24/24 09/24/24 14:42 16:04 19:32 WBC RBC Hgb Hct MCHC MPV Neut % (Auto) Lymph % (Auto) Eos % (Auto) Neut # (Auto) Gulf # (Auto) D-Dimer VBG pO2 VBG Total CO2 VBG O2 Saturation VBG Base Excess VBG Lactic Acid Potassium Chloride Carbon Dioxide Anion Gap BUN Glucose POC Glucose 171 H 186 H Lactate 2.8 H Calcium Magnesium NT-Pro-B Natriuret Pep 09/25/24 09/25/24 04:20 05:46 WBC 11.8 H D RBC 3.64 L Hgb 9.9 L D Hct 31.9 L MCHC 31.0 L MPV 10.9 H Neut % (Auto) 86.3 H Lymph % (Auto) 7.1 L Eos % (Auto) 0.0 L Neut # (Auto) 10.1 H Gulf # (Auto) D-Dimer VBG pO2 VBG Total CO2 VBG O2 Saturation VBG Base Excess VBG Lactic Acid Potassium 3.1 L Chloride 94 L Carbon Dioxide 39 H Anion Gap BUN 20 H Glucose 161 H D POC Glucose 191 H Lactate Calcium 8.0 L Magnesium 1.4 L NT-Pro-B Natriuret Pep Assessment and Plan *Assessment and plan (1) Acute hypoxic respiratory failure: Status: Acute Category: Medical Code(s): J96.01 - Acute respiratory failure with hypoxia (2) Multifocal pneumonia: Status: Acute Category: Medical Code(s): J18.9 - Pneumonia, unspecified organism Plan MsAntwan Lacombe is a 73-year-old with reported history of CVA right-sided weakness, CABG CHF presented with worsening respiratory distress needing high flow nasal cannula oxygen supplementation pulmonary was called for further evaluation and management. CTA upon admission no evidence of pulmonary embolism. Dense right middle lobe consolidative changes with the previously noted left lower lobe airspace disease significantly improved but completely resolved. Lower extremities Doppler negative for DVT. Neutrophilic predominant leukocytosis improving. Blood cultures no growth so far. COVID-19 and flu PCR panel NEGATIVE. Afebrile. Hemodynamically stable. On examination severe respiratory distress. Rhonchorous breath sounds bilaterally. No significant wheezing. On high flow nasal cannula 40 L at 90% saturating 92%. Continue to receive vancomycin and cefepime. Plan: Continue high flow nasal cannula 40 L 90% to maintain O2 saturation goal of 90% and above. Follow-up VBG. Respiratory distress is concerning. Patient is a DNR/DNI do not want to be intubated. Will try AVAPS if needed Chest percussion therapy twice daily along with suction. Following sputum cultures. Continue broad-spectrum antibiotics including vancomycin and cefepime. Volume optimization as per primary team and cardiology
[2024-09-25 10:44] LABS: Lactate Venous 1.6 mmol/L (0.4-2.0); VBG HCO3 32.4 mmol/L (23-30); VBG PCO2 46.0 mmol/L (35-51); VBG PH 7.47 mmol/L (7.31-7.41); VBG PO2 75.7 mmol/L (28-40)
--- NOTE | 2024-09-25 11:07 | HMH.PTEV ---
Physical Therapy Evaluation Rehab PT IP Evaluation Start: 09/24/24 23:23 Freq: ONCE Status: Active Protocol: Document 09/25/24 11:04 JENSEN (Rec: 09/25/24 11:07 JENSEN [id number]) Subjective/History History History Per H&P: Ms. Stone is a 73-year-old female history of CVA with residual right sided deficits, CABG, CHF, who presented with acute hypoxia to the ER. Normally wears 2 to 3 L of oxygen at home. Has been feeling more short of breath over the past 1 to 2 days. Today she was quite dyspneic and family had to turn her oxygen up and was unable to get her oxygen saturations above 90%. Brought to the ER for hypoxia. Found to have sats in the 60s on arrival. Patient has had a coarse cough over the past 1 to 2 days. Denies fever. No nausea or vomiting. Was assisting with transitions as recent as yesterday. Is nonambulatory due to residual stroke deficits. Denies chest pain. Workup in the ER concerning for multiple abnormalities. White count elevated at 19, chest imaging with dense consolidation of right middle and left lower lobes. Elevated BNP of 5000. Meeting sepsis criteria. Started on broad-spectrum antibiotics with azithromycin , cefepime, vancomycin. Fluids were held due to concern for component of volume overload. No sepsis bolus administered. Medicine consulted for admission Subjective Subjective PT confirmed hx with pt's 3 daughters. PLOF: Max A x 2 people for EOB>w/c transfers. Non- ambulatory. HOME: Alternates living between 3 daughters' homes in separate counties. Assistance: Daughters able to assist as needed. One daughter only has 1 person assist at her home. New diagnosis of No cancer in past 12 months? [facility] How much help from another person do you currently need... Turning from your A lot back to your side while in a flat bed without using bedrails? Moving from lying on A lot back to sitting on the side of a flat bed without using bedrails? Moving to and from a A lot bed to a chair ( including a wheelchair)? Standing up from a A lot chair using your arms? (e.g., wheelchair, bedside chair) Walking in hospital Total room? Climbing 3-5 steps Total with a railing? Mobility Score 10 Mobility Level [facility] Mobility 4 Move to chair/commode Mobility Calculator Rehab PT IP Eval Objective Appearance Patient Behavior Appropriate,Cooperative Patient Orientation Person Difficulty following none instructions Speech Pattern Soft-Spoken Ambulation Patient Able to No Ambulate Balance Ability to Arise Unable Transfers Bed Transfer Ability Maximum x 2 (75% assist) Rehab PT IP prob,goals,plan Problems Date of Evaluation: 09/25/24 PT IP Problems Bed Mobility,Transfers,Gait,Balance,Self care,Safety Rehab Potential Rehab Potential Innapropriate for Skilled Therapy Discharge Plan PT Discharge Plan Pt most appropriate to d/c home when deemed medically necessary d/t current level of mobility, home set-up, and family support. Pt not appropriate for skilled acute care PT at this time d/t pt?s mobility being at baseline. Pt would benefit from having a mechanical lift d/t only having one person assist at one of her homes. Mechanical lift would significantly reduce pt fall risk and caregiver burden. Eval Complexity Eval Charge Codes 29516 - Moderate Complexity PHYSICIAN CERTIFICATION: I certify the specified therapy services for Margarita Stone are required, authorized, and reviewed every 30 days.
[2024-09-25 11:09] LABS: POC Glucose,Bedside 211 (70-110)
--- NOTE | 2024-09-25 12:22 | PC.NURSE ---
noted on the monitor pt to be 169, SVT. Dr. Dao called to bedside. RT called for EKG. vagal maneuvers attempted while Adenosine being prepared. Zoll at bedside, NS at bedside. pt converted to Sinus tach 113 bpm doing vagal maneuvers.
[2024-09-25] MEDS: METOPROLOL TARTRATE 5MG/5ML VIAL 5 MG IV ×2 (12:30→18:53)
[2024-09-25] MEDS: VANCOMYCIN HCL 750 MG in 0.9 % SODIUM CHLORIDE 250 ML 125 MG IV (13:01)
[2024-09-25 16:43] LABS: POC Glucose,Bedside 200 (70-110)
--- NOTE | 2024-09-25 18:53 | PC.NURSE ---
pt noted to be in SVT on the monitor. Dr. Dao called, RT called. pt educated on vagal maneuvers- blowing through a straw. Pt converted to NSR- 80. Dr. Dao stated to give 5 mg IVP metoprolol.
--- NOTE | 2024-09-25 18:53 | INFXCTL.NOTE ---
this nurse called into patients room, pt SVT on the monitor. pt given a straw and instructed on blowing through straw. pt instructed on bearing down. RT called, Dr. Dao called. pt converted to NSR after vagal maneuvers. pt given IVP Metoprolol given.
--- NOTE | 2024-09-25 18:58 | PC.NURSE ---
pt noted to be in SVT on the monitor. Dr. Dao called, instructed to proceed with vagal maneuvers. pt educated on blowing through a straw. pt converted to NSR- rate of 70.
--- NOTE | 2024-09-25 19:01 | ECG_ITS ---
APPROVED REPORT Exam: Resting ECG HR:158 bpm ECG Measurements Heart Rate 158 AXES QRSd 147 QRS -19 QT 308 T 35 QTc 396 Conclusion UNCERTAIN REGULAR RHYTHM INTRAVENTRICULAR CONDUCTION DELAY [130+ ms QRS DURATION] INFERIOR MYOCARDIAL INFARCTION , PROBABLY OLD [40+ ms Q WAVE AND/OR ST/T ABNORMALITY IN II/aVF] CRITICAL TEST RESULT INTERPRETATION BASED ON A DEFAULT AGE OF 40 YEARS UNCONFIRMED REPORT Electronically signed by : Roe Gleason MD 09/27/2024 08:14:19
--- NOTE | 2024-09-25 19:31 | EXP.ACUTE.PN ---
Subjective *Date: 09/25/24 *Time: 22:28 Interval history: Continues to require maximal Vapotherm. 40 L 90% this morning but increased to 40 L 100% after rounds. Afebrile. 2 episodes of SVT today. Resolved with vagal maneuvers and metoprolol. Somewhat more interactive this morning but fatigued as the day went on. Still has very weak cough, nonproductive. Family at bedside. Updated of progress. Medical Exam Vital signs and Labs for Last 24 Hours: Vital Signs Temp Pulse Pulse Resp BP BP Pulse Ox 09/25/24 19:00 09/25/24 19:00 72 28 H 94 L 09/25/24 18:21 76 09/25/24 18:21 70 09/25/24 18:21 94 L 09/25/24 18:00 86 24 105/84 L 92 L 09/25/24 17:00 09/25/24 17:00 66 24 149/68 H 93 L 09/25/24 16:00 73 09/25/24 15:56 95 09/25/24 15:56 73 26 H 163/64 H 95 09/25/24 15:00 09/25/24 15:00 75 30 H 152/62 H 95 09/25/24 14:00 79 28 H 130/72 94 L 09/25/24 13:35 75 09/25/24 13:35 75 09/25/24 13:00 09/25/24 13:00 80 24 155/54 H 94 L 09/25/24 12:00 80 09/25/24 12:00 97.6 F 82 23 133/79 95 09/25/24 11:54 95 H 26 H 133/79 91 L 09/25/24 11:54 94 L 09/25/24 11:54 76 26 H 133/79 94 L 09/25/24 11:00 87 30 H 156/74 H 92 L 09/25/24 10:43 09/25/24 10:43 83 28 H 164/68 H 91 L 09/25/24 10:00 87 26 H 165/69 H 90 L 09/25/24 10:00 82 26 H 165/69 H 91 L 09/25/24 09:50 85 09/25/24 09:50 84 09/25/24 09:50 90 L 09/25/24 09:00 89 30 H 161/67 H 91 L 09/25/24 09:00 09/25/24 09:00 85 26 H 161/67 H 90 L 09/25/24 08:00 89 31 H 168/59 H 91 L 09/25/24 08:00 91 H 20 161/83 H 91 L 09/25/24 08:00 91 L 09/25/24 08:00 91 H 32 H 161/83 H 91 L 09/25/24 07:00 09/25/24 07:00 84 30 H 164/69 H 91 L 09/25/24 06:10 94 H 09/25/24 06:10 91 H 09/25/24 06:10 91 L 09/25/24 06:00 96 H 35 H 164/66 H 91 L 09/25/24 05:00 85 30 H 164/70 H 92 L 09/25/24 05:00 09/25/24 04:00 98.9 F 92 H 20 152/87 H 93 L 09/25/24 04:00 102 H 09/25/24 04:00 92 L 09/25/24 03:01 86 29 H 156/86 H 92 L 09/25/24 03:00 09/25/24 02:00 84 30 H 137/75 92 L 09/25/24 01:43 88 09/25/24 01:43 91 H 09/25/24 01:00 85 31 H 166/69 H 92 L 09/25/24 01:00 09/25/24 00:00 66 09/25/24 00:00 98.2 F 84 30 H 159/68 H 90 L 09/25/24 00:00 92 L 09/24/24 23:30 91 L 09/24/24 23:00 79 26 H 140/63 90 L 09/24/24 22:56 09/24/24 22:12 87 28 H 91 L 09/24/24 22:12 145/92 H 09/24/24 22:00 80 91 L 09/24/24 21:55 80 09/24/24 21:55 84 09/24/24 21:55 91 L 09/24/24 21:45 74 26 H 91 L 09/24/24 21:30 71 28 H 91 L 09/24/24 21:00 09/24/24 21:00 80 26 H 129/56 L 95 09/24/24 20:00 80 09/24/24 20:00 98.8 F 78 29 H 149/52 H 95 09/24/24 20:00 95 O2 Del Method O2 Flow Rate FiO2 09/25/24 19:00 Vapotherm 40 09/25/24 19:00 Vapotherm 40 100 09/25/24 18:21 09/25/24 18:21 09/25/24 18:21 40 100 09/25/24 18:00 Vapotherm 40 100 09/25/24 17:00 Vapotherm 40 09/25/24 17:00 Vapotherm 40 100 09/25/24 16:00 09/25/24 15:56 Vapotherm 09/25/24 15:56 Vapotherm 40 100 09/25/24 15:00 Vapotherm 40 09/25/24 15:00 Vapotherm 40 100 09/25/24 14:00 Vapotherm 40 100 09/25/24 13:35 09/25/24 13:35 09/25/24 13:00 Vapotherm 40 09/25/24 13:00 Vapotherm 40 100 09/25/24 12:00 09/25/24 12:00 Vapotherm 09/25/24 11:54 Vapotherm 40 100 09/25/24 11:54 Vapotherm 40 100 09/25/24 11:54 Vapotherm 40 100 09/25/24 11:00 Vapotherm 09/25/24 10:43 Vapotherm 40 09/25/24 10:43 Vapotherm 40 90 09/25/24 10:00 Vapotherm 09/25/24 10:00 Vapotherm 40 90 09/25/24 09:50 09/25/24 09:50 09/25/24 09:50 Vapotherm 40 90 09/25/24 09:00 Vapotherm 09/25/24 09:00 Vapotherm 40 09/25/24 09:00 Vapotherm 40 90 09/25/24 08:00 09/25/24 08:00 Vapotherm 40 90 09/25/24 08:00 Vapotherm 40 90 09/25/24 08:00 Vapotherm 40 90 09/25/24 07:00 Vapotherm 40 09/25/24 07:00 Vapotherm 40 90 09/25/24 06:10 09/25/24 06:10 09/25/24 06:10 Vapotherm 40 90 09/25/24 06:00 Vapotherm 40 90 09/25/24 05:00 Vapotherm 40 80 09/25/24 05:00 Vapotherm 40 09/25/24 04:00 Vapotherm 40 90 09/25/24 04:00 09/25/24 04:00 Vapotherm 40 90 09/25/24 03:01 Vapotherm 40 90 09/25/24 03:00 Vapotherm 40 09/25/24 02:00 Vapotherm 40 90 09/25/24 01:43 09/25/24 01:43 09/25/24 01:00 Vapotherm 40 09/25/24 01:00 Vapotherm 40 09/25/24 00:00 09/25/24 00:00 Vapotherm 40 90 09/25/24 00:00 Vapotherm 40 90 09/24/24 23:30 40 90 09/24/24 23:00 Vapotherm 40 80 09/24/24 22:56 Vapotherm 40 09/24/24 22:12 Vapotherm 40 100 09/24/24 22:12 09/24/24 22:00 09/24/24 21:55 09/24/24 21:55 09/24/24 21:55 Vapotherm 40 80 09/24/24 21:45 Vapotherm 40 100 09/24/24 21:30 Vapotherm 40 100 09/24/24 21:00 Vapotherm 40 09/24/24 21:00 Vapotherm 40 100 09/24/24 20:00 09/24/24 20:00 Vapotherm 40 100 09/24/24 20:00 Vapotherm 40 100 Intake and Output 09/25/24 09/25/24 09/25/24 07:59 15:59 23:59 Intake Total 0 / 1670 1670 / 1670 Output Total 400 / 1350 950 / 1350 Balance -400 / 320 720 / 320 Intake: Intake, Oral Amount 0 / 170 170 / 170 Intake, Total IV Amount 1500 / 1500 KCl 10mEq/100ml 100 ml @ 100 1100 / 1100 mls/hr IV Q1H [facility] Rx#:[id number] Magnesium Sulfate in Water 2 gm 150 / 150 In 50 ml @ 50 mls/hr IV Q1H [facility] Rx#:[id number] Vancomycin HCl 750 mg In 0.9 % 250 / 250 Sodium Chloride 250 ml @ 125 mls/hr IV Q24H [facility] Rx#:[id number] Output: Output, Urine Amount 400 / 1350 950 / 1350 Other: Number of Unmeasured Voids 1 0 0 Weight 53.524 kg Patient Weight 09/25/24 23:59 Weight 53.524 kg Laboratory Results - last 24 hr 09/24/24 16:04: POC Glucose 171 H 09/24/24 19:32: POC Glucose 186 H 09/25/24 04:20: WBC 11.8 H D, RBC 3.64 L, Hgb 9.9 L D, Hct 31.9 L, MCV 87.6, MCH 27.2, MCHC 31.0 L, RDW 17.1, Plt Count 249 D, MPV 10.9 H, Neut % (Auto) 86.3 H, Lymph % (Auto) 7.1 L, [place] % (Auto) 5.8, Eos % (Auto) 0.0 L, Baso % (Auto) 0.3, Neut # (Auto) 10.1 H, Lymph # (Auto) 0.8, [place] # (Auto) 0.7, Eos # (Auto) 0.0, Baso # (Auto) 0.0, Sodium 141, Potassium 3.1 L, Chloride 94 L, Carbon Dioxide 39 H, Anion Gap 11.1, BUN 20 H, Creatinine 0.80, Estimated Creat Clear 43, Estimated GFR 70, Est GFR ( Amer) 85, Glucose 161 H D, Calcium 8.0 L, Magnesium 1.4 L, Total Bilirubin 0.5, AST 21 D, ALT 16 D, Alkaline Phosphatase 111, Total Protein 6.4, Albumin 3.5 D, Globulin 2.9, Albumin/Globulin Ratio 1.2 09/25/24 05:46: POC Glucose 191 H 09/25/24 10:24: VBG pH 7.47 H, VBG pCO2 46.0, VBG pO2 75.7 H, VBG HCO3 32.4 H, VBG Total CO2 33.8 H, VBG O2 Saturation 95.6 H, VBG Base Excess 8.6 H, VBG Lactic Acid 1.6 09/25/24 11:01: POC Glucose 211 H 09/25/24 16:33: POC Glucose 200 H I & O for Labs for Last 24 Hours: Intake & Output 09/22/24 09/23/24 09/24/24 09/25/24 23:59 23:59 23:59 23:59 Intake Total 100 / 100 1670 / 1670 Output Total 750 / 750 1350 / 1350 Balance -650 / -650 320 / 320 Weight 54.686 kg 53.524 kg Microbiology Reports for the Last 24 Hours: Microbiology 09/25/24 11:25 Sputum - Expectorated Sputum Gram Stain - Final 09/24/24 08:27 Blood Blood Culture - Preliminary NO GROWTH AFTER 24 HOURS 09/24/24 08:28 Blood Blood Culture - Preliminary NO GROWTH AFTER 24 HOURS Constitutional: Present moderate distress, thin, chronically ill appearing and cooperative Head: Present atraumatic and normocephalic ENT: Present normal exam Respiratory: Present accessory muscle use, prolonged expiratory phase and rhonchi; Absent wheezes or crackles Cardiac: Present Reg Rate and Rhythm Comment:: 2 episodes of SVT with a rate of approximately 160. Improved with vagal maneuver GI: Present soft and normal bowel sounds; Absent distention or tenderness Extremities: Present normal inspection and full ROM; Absent tenderness Skin: Present intact; Absent erythema Neuro: Present Grossly Intact, alert and awake Comment:: Knows who she is, answering simple questions appropriately. Fatigued with answers. Right sided residual deficits from chronic CVA Assessment and Plan *Assessment and plan (1) Severe sepsis: Status: Acute Category: Medical Code(s): A41.9 - Sepsis, unspecified organism; R65.20 - Severe sepsis without septic shock (2) Multifocal pneumonia: Status: Acute Category: Medical Code(s): J18.9 - Pneumonia, unspecified organism (3) Acute hypoxic respiratory failure: Status: Acute Category: Medical Code(s): J96.01 - Acute respiratory failure with hypoxia (4) Hypertension: Status: Acute Qualifiers: Hypertension type: primary hypertension Qualified Code(s): I10 - Essential (primary) hypertension Category: Medical Code(s): I10 - Essential (primary) hypertension (5) Diabetes mellitus: Status: Acute Qualifiers: Diabetes mellitus complication status: without complication Diabetes mellitus terminal operations manager insulin use: without terminal operations manager use Diabetes mellitus type: type 2 Qualified Code(s): E11.9 - Type 2 diabetes mellitus without complications Category: Medical Code(s): E11.9 - Type 2 diabetes mellitus without complications (6) CAD (coronary artery disease): Status: Acute Qualifiers: Associated angina: without angina Coronary Disease-Associated Artery/Lesion type: [place] artery [place] vs. transplanted heart: [place] heart Qualified Code(s): I25.10 - Atherosclerotic heart disease of [place] coronary artery without angina pectoris Category: Medical Code(s): I25.10 - Atherosclerotic heart disease of [place] coronary artery without angina pectoris (7) Diastolic CHF: Status: Acute Category: Medical Code(s): I50.30 - Unspecified diastolic (congestive) heart failure (8) Diabetes type 2, controlled: Status: Acute Category: Medical Code(s): E11.9 - Type 2 diabetes mellitus without complications (9) Vascular dementia: Status: Acute Category: Medical Code(s): F01.50 - Vascular dementia, unspecified severity, without behavioral disturbance, psychotic disturbance, mood disturbance, and anxiety (10) History of CVA (cerebrovascular accident): Status: Chronic Category: Medical Code(s): Z86.73 - Personal history of transient ischemic attack (TIA), and cerebral infarction without residual deficits Plan 73-year-old female with history of CHF, CABG, CAD, CVA, diabetes, dementia. Presented with acute worsening shortness of breath. Workup in the ER concerning for CHF exacerbation, evere sepsis, multifocal pneumonia. Discussed case with ER physician, request admission for further treatment of respiratory failure. I agreed to admit for further management. Meeting severe sepsis criteria with white count of 19, tachycardia with heart rate of 93, infection on CT, multiorgan dysfunction. Fluid bolus held on admission due to component of CHF with elevated BNP suggestive of volume overload. Will trial diuresis once with Lasix 40 mg IV. Initiated on broad-spectrum antibiotics. Condition critical, prognosis guarded. On maximal noninvasive ventilation with Vapotherm 40 L and 100%. Admitted to ICU. Problems addressed as follows: cute on chronic hypoxemic respiratory failure CHF exacerbation Pneumonia -Continue supplemental oxygen for goal sats greater 90%. Currently Vapotherm 40 liters, 100%. - Continue cefepime and vancomycin IV, monitor for toxicity of kidney function - Blood and sputum cultures pending - Continue Lasix 40 mg IV twice daily. Strict I's and O's -BNP elevated at 5000, Troponin negative at less than 0.01. - White count 11.8, hemoglobin 9.9. No active signs of bleeding - Sodium 141, potassium 3.1, chloride 94. Bicarb 39. BUN 20, creatinine 0.8. Magnesium 1.4. Negative approximately a liter since admission - Repeat CBC, CMP, magnesium ordered for the morning - Pulmonology consulted to assist with care. Recommend initiating percussion. Diabetes: A1c 6.1. Glucose well controlled, 121 on morning labs, DC sliding scale insulin with fingersticks ACHS. Continue home metformin at 1000 mg twice daily Hypertension: SVT - holding home blood pressure medication at this time to allow for diuresis. Will consider resuming when more hemodynamically stable or hypertensive - Continue metoprolol succinate 100 mg increased to twice daily. Continue metoprolol tartrate 5 mg IV every 6 hours as needed for heart rate greater than 100. Will consider adenosine if SVT does not respond to vagal maneuvers. GERD: Continue pantoprazole 40 mg daily p.o. History of CVA: continue Lipitor 80 mg daily for hyperlipidemia, continue aspirin 325 mg daily Depression: Holding Lexapro due to somnolence Vascular dementia: Holding donepezil and memantine due to somnolence. DNR Lovenox 40 mg subcu daily Cardiac diet ICU/Critical care attestation This patient is critically ill with 40 minutes devoted solely to this patient managing life/organ supporting interventions that required physician assessment. This includes time spent making adjustments in ventilator settings, IV fluid administration, titration of pressors, adjustments of medications, discussion of patient with consultants and other care providers as well as updating patient and/or family (if patient by virtue of his/her condition is unable to participate in decision making). This does not include time spent performing separately billed procedures. Time is not concurrent with that of other providers.
[2024-09-25 20:16] LABS: POC Glucose,Bedside 150 (70-110)
[2024-09-25] MEDS: PANTOPRAZOLE 40MG VIAL 40 MG IV (20:31)
--- NOTE | 2024-09-25 22:30 | PC.NURSE ---
Pt noted to desat to lower 70s and sustain on vapotherm 40L/100%. Pt pale and lethargic. Pt refusing to be deep suctioned and AVAPS. NRB was applied over top of vapotherm. Lung sounds diminished- no change from initial assessment. Family in waiting room made aware of pt condition and came to bedside. Pt agreeable to being deep suctioned by RT after family encouragement. RT able to suction copious amount of brown sputum out of airway. Pt able to remian off of NRB post suctioning. 94% on vapotherm 40L/100%.
--- NOTE | 2024-09-25 23:15 | PC.NURSE ---
Notified Shade MORGAN pt desat to 85% on vapotherm 40L/100% and NRB was reapplied. Pt sitting up in bed in good position. Refusing suction at this time. Pt current sat sustaining 87-88%. states he is ok with applying AVAPS if pt agrees. NNO at this time.
[2024-09-26] VITALS (38 sets, daily range): BP systolic 134–182; BP diastolic 52–86; PULSE 63–93; RESP 10–40; TEMP 36.5–37.1; O2SAT 88–98; BMI 23.1
[2024-09-26] MEDS: IPRATROPIUM/ALBUTEROL 3 ML NEB IH ×6 (01:08→22:46)
[2024-09-26 05:52] LABS: Hematocrit 32.5 % (37.0-47.0); Hemoglobin 10.1 g/dL (12.2-16.2); Immature Granulocytes % 0.5 %; Mean Corpuscular HGB Conc 31.1 g/dL (31.8-35.4); Mean Corpuscular Hemoglobin 27.1 pg (27.0-31.2); Mean Corpuscular Volume 87.1 fl (81-99); Nucleated Red Blood Cells % 0 %; Platelet Count 291 K/mm3 (142-424); Red Blood Count 3.73 M/mm3 (4.20-5.40); Red Cell Distribution Width-SD 54.1 fL; White Blood Count 12.9 K/mm3 (4.8-10.8)
[2024-09-26 06:07] LABS: Anion Gap 11.4 mEq/L (5-15); Blood Urea Nitrogen 28 mg/dl (7-17); Calcium 8.9 mg/dl (8.4-10.2); Carbon Dioxide 37 mmol/L (22.0-30.0); Chloride 93 mmol/L (98-107); Creatinine Clearance Estimated 42 mL/min (50-200); Creatinine,Serum 0.90 mg/dl (0.52-1.04); Estimated Glomerular Filt Rate 61 ml/min (>60); GFR (African American) 74 ML/MIN (>60); Glucose 153 mg/dl (74-100); Potassium 3.4 mmoL/L (3.5-5.1); Sodium 138 mmol/L (136-145)
[2024-09-26] MEDS: FUROSEMIDE 40MG/4ML VIAL 40 MG IV ×2 (09:14→17:00)
[2024-09-26] MEDS: MEMANTINE 10MG TABLET 10 MG PO ×2 (09:14→20:03)
[2024-09-26] MEDS: METOPROLOL SUCCINATE XL 100MG TABLET 100 MG PO ×2 (09:14→20:03)
--- NOTE | 2024-09-26 09:14 | EXP.PULM.PN ---
Subjective *Date: 09/26/24 *Time: 13:30 Interval history: No acute respiratory vents overnight. Patient admits improvement in her respiratory symptoms. Willing to pursue chest percussion therapy and suction. Pulmonology Exam Inpatient Vital signs and Labs for Last 24 Hours: Temp Pulse Resp BP Pulse Ox O2 Del Method O2 Flow Rate 97.7 F 79 25 H 175/62 H 96 Vapotherm 40 09/26/24 08:01 09/26/24 08:01 09/26/24 08:01 09/26/24 08:01 09/26/24 08:01 09/26/24 08:01 09/26/24 08:01 FiO2 100 09/26/24 08:01 Laboratory Results - last 24 hr 09/25/24 10:24: VBG pH 7.47 H, VBG pCO2 46.0, VBG pO2 75.7 H, VBG HCO3 32.4 H, VBG Total CO2 33.8 H, VBG O2 Saturation 95.6 H, VBG Base Excess 8.6 H, VBG Lactic Acid 1.6 09/25/24 11:01: POC Glucose 211 H 09/25/24 16:33: POC Glucose 200 H 09/25/24 20:00: POC Glucose 150 H 09/26/24 05:31: WBC 12.9 H, RBC 3.73 L, Hgb 10.1 L, Hct 32.5 L, MCV 87.1, MCH 27.1, MCHC 31.1 L, RDW 17.1, Plt Count 291, MPV 11.0 H, Neut % (Auto) 85.9 H, Lymph % (Auto) 8.0 L, [place] % (Auto) 5.4, Eos % (Auto) 0.0 L, Baso % (Auto) 0.2, Neut # (Auto) 11.1 H, Lymph # (Auto) 1.0, [place] # (Auto) 0.7, Eos # (Auto) 0.0, Baso # (Auto) 0.0, Sodium 138, Potassium 3.4 L, Chloride 93 L, Carbon Dioxide 37 H, Anion Gap 11.4, BUN 28 H D, Creatinine 0.90, Estimated Creat Clear 42, Estimated GFR 61, Est GFR ( Amer) 74, Glucose 153 H, Calcium 8.9 Temp Pulse Resp BP Pulse Ox O2 Del Method O2 Flow Rate 98.9 F 91 H 20 161/83 H 91 L Vapotherm 40 09/25/24 04:00 09/25/24 08:00 09/25/24 08:00 09/25/24 08:00 09/25/24 08:00 09/25/24 08:00 09/25/24 08:00 FiO2 90 09/25/24 08:00 Laboratory Results - last 24 hr 09/24/24 11:20: Troponin I < 0.01 09/24/24 12:09: POC Glucose 176 H 09/24/24 14:42: Lactate 2.8 H, Troponin I < 0.01 09/24/24 16:04: POC Glucose 171 H 09/24/24 17:00: Lactate 1.9 09/24/24 19:32: POC Glucose 186 H 09/25/24 04:20: WBC 11.8 H D, RBC 3.64 L, Hgb 9.9 L D, Hct 31.9 L, MCV 87.6, MCH 27.2, MCHC 31.0 L, RDW 17.1, Plt Count 249 D, MPV 10.9 H, Neut % (Auto) 86.3 H, Lymph % (Auto) 7.1 L, [place] % (Auto) 5.8, Eos % (Auto) 0.0 L, Baso % (Auto) 0.3, Neut # (Auto) 10.1 H, Lymph # (Auto) 0.8, [place] # (Auto) 0.7, Eos # (Auto) 0.0, Baso # (Auto) 0.0, Sodium 141, Potassium 3.1 L, Chloride 94 L, Carbon Dioxide 39 H, Anion Gap 11.1, BUN 20 H, Creatinine 0.80, Estimated Creat Clear 43, Estimated GFR 70, Est GFR ( Amer) 85, Glucose 161 H D, Calcium 8.0 L, Magnesium 1.4 L, Total Bilirubin 0.5, AST 21 D, ALT 16 D, Alkaline Phosphatase 111, Total Protein 6.4, Albumin 3.5 D, Globulin 2.9, Albumin/Globulin Ratio 1.2 09/25/24 05:46: POC Glucose 191 H I & O for Labs for Last 24 Hours: Intake & Output 09/23/24 09/24/24 09/25/2409/26/25 23:59 23:59 23:59 23:59 Intake Total 100 / 100 1670 / 1770 300 / 300 Output Total 750 / 750 1850 / 1850 300 / 300 Balance -650 / -650 -180 / -80 0 / 0 Weight 120 lb 9 oz 118 lb 117 lb 9 oz Intake & Output 09/22/24 09/23/24 09/24/24 09/25/24 23:59 23:59 23:59 23:59 Intake Total 100 / 100 170 / 170 Output Total 750 / 750 400 / 400 Balance -650 / -650 -230 / -230 Weight 120 lb 9 oz 118 lb Microbiology Reports for the Last 24 Hours: Microbiology 09/24/24 11:58 Anus CRE Surveillance Culture - Final Negative 09/24/24 08:28 Blood Blood Culture - Preliminary NO GROWTH AFTER 48 HOURS 09/24/24 08:27 Blood Blood Culture - Preliminary NO GROWTH AFTER 48 HOURS 09/25/24 11:25 Sputum - Expectorated Sputum Gram Stain - Final Microbiology 09/24/24 08:27 Blood Blood Culture - Preliminary NO GROWTH AFTER 24 HOURS 09/24/24 08:28 Blood Blood Culture - Preliminary NO GROWTH AFTER 24 HOURS Constitutional: Present severe distress Head: Present normocephalic and atraumatic ENT: Present normal exam, normal oropharynx and mucous membranes moist Neck: Present normal inspection and full ROM Respiratory: Present respiratory distress, rhonchi, wheezes, distant breath sounds and diminished air movement; Absent able to speak in complete sentences Cardiac: Present S1/S2, Tachycardia and radial pulses present GI: Present soft and distention; Absent tenderness or guarding Rectal (female): Present deferred (female): Present deferred Skin: Present intact; Absent cyanosis or jaundice Neuro: Present alert, awake and oriented x 3 Extremities: Present normal inspection; Absent clubbing or cyanosis Psychiatric: Present unable to assess Assessment and Plan *Assessment and plan (1) Acute hypoxic respiratory failure: Status: Acute Category: Medical Code(s): J96.01 - Acute respiratory failure with hypoxia (2) Multifocal pneumonia: Status: Acute Category: Medical Code(s): J18.9 - Pneumonia, unspecified organism Plan Ms. Stone is a 73-year-old with reported history of CVA right-sided weakness, CABG CHF presented with worsening respiratory distress needing high flow nasal cannula oxygen supplementation pulmonary was called for further evaluation and management. CTA upon admission no evidence of pulmonary embolism. Dense right middle lobe consolidative changes with the previously noted left lower lobe airspace disease significantly improved but completely resolved. Lower extremities Doppler negative for DVT. Neutrophilic predominant leukocytosis improving. Blood cultures no growth so far. COVID-19 and flu PCR panel NEGATIVE. Afebrile. Hemodynamically stable. On initial exam in examination severe respiratory distress. Rhonchorous breath sounds bilaterally. No significant wheezing. On high flow nasal cannula 40 L at 90% saturating 92%. Continue to receive vancomycin and cefepime. Interval update: No acute respiratory vents overnight. ABG from yesterday did not show any evidence of hypercarbic respiratory failure. Sputum culture pending. Blood cultures no growth 48 hours. Chest x-ray from this morning continued to right middle lobe airspace disease. Plan: Incentive spirometry 3 times daily Continue high flow nasal cannula to maintain O2 saturation goal of 90% and above. Weaned to 40 L 80% this morning. Continue to wean as tolerated. Chest percussion therapy twice daily along with suction. Following sputum cultures. Continue broad-spectrum antibiotics including vancomycin and cefepime. Volume optimization as per primary team and cardiology
[2024-09-26] MEDS: CEFEPIME HCL 2 GM in 0.9 % SODIUM CHLORIDE 100 ML IV ×2 (09:15→21:16)
--- NOTE | 2024-09-26 09:15 | XR_ITS ---
PROCEDURE INFORMATION: Exam: XR Chest Exam date and time: 09/26/2024 9:15 AM Age: 73 years old Clinical indication: Shortness of breath; Additional info: Pnm TECHNIQUE: Imaging protocol: Radiologic exam of the chest. Views: 1 view. COMPARISON: CT ANGIO CHEST PE PROTOCOL 09/24/2024 9:14 AM FINDINGS: Lungs: Patchy and coalescent opacity in right middle lobe is re-identified. Pleural spaces: Unremarkable. No pleural effusion. No pneumothorax. Heart/Mediastinum: Postoperative changes from prior coronary artery bypass graft. Diaphragm: Right hemidiaphragm is elevated. Bones/joints: Sternotomy wires are intact. IMPRESSION: Patchy and coalescent opacity in right middle lobe is re-identified. Differential considerations include aspiration versus pneumonia.
[2024-09-26 11:07] LABS: POC Glucose,Bedside 147 (70-110)
[2024-09-26] MEDS: PHA TO NURSING INSTRUCTION 1 EACH NOTAPPLIC (11:30)
[2024-09-26 11:45] LABS: Magnesium 2.5 mg/dl (1.6-2.3)
[2024-09-26 12:13] LABS: Vancomycin,Trough 9.6 ug/mL (5.0-10.0)
--- NOTE | 2024-09-26 12:57 | EXP.PHA.CONS ---
Pharmacy Consult Date: 09/26/24 Time: 12:57 Referring provider: DR. TOLENTINO Reason for Consult:: VANCOMYCIN LEVEL Allergies Allergy/AdvReac Type Severity Reaction Status Date / Time Iodinated Contrast Media Allergy Mild Unknown Verified 09/24/24 12:10 allergy reaction naproxen Allergy Mild Unknown Verified 09/24/24 12:10 allergy reaction Home Medications ?Medication ?Instructions ?Recorded ?Confirmed ?Type atorvastatin 80 mg tablet 80 mg PO HS 04/05/17 09/24/24 History aspirin 325 mg tablet 325 mg PO DAILY 09/14/17 09/24/24 History isosorbide mononitrate 30 mg 30 mg PO DAILY 03/26/18 09/24/24 History tablet,extended release 24 hr amlodipine 5 mg tablet 5 mg PO DAILY 05/20/19 09/24/24 History cholecalciferol (vitamin D3) 25 25 mcg PO HS 03/13/20 09/24/24 History mcg (1,000 unit) capsule memantine 10 mg tablet 10 mg PO BID 09/18/20 09/24/24 History donepezil 5 mg tablet 5 mg PO DAILY 05/21/21 09/24/24 History multivitamin (Daily Multi-Vitamin 1 tab PO DAILY 12/03/21 09/24/24 History tablet) escitalopram oxalate 10 mg tablet 10 mg PO DAILY 06/17/22 09/24/24 History lisinopril 40 mg tablet 40 mg PO BID 01/21/23 09/24/24 History metformin 1,000 mg tablet 1,000 mg PO BID 01/22/23 09/24/24 History metoprolol succinate 100 mg 100 mg PO DAILY 01/22/23 09/24/24 History tablet,extended release 24 hr pantoprazole 40 mg tablet,delayed 40 mg PO DAILY 02/21/24 09/24/24 History release gabapentin 100 mg capsule 100 mg PO BID 03/11/24 09/24/24 History lorazepam 0.5 mg tablet 0.5 mg PO HS 03/11/24 09/24/24 History furosemide 20 mg tablet 20 mg PO DAILY 30 days #0 tabs 03/13/24 09/24/24 Rx ferrous sulfate 325 mg (65 mg 325 mg PO DAILY 06/27/24 09/24/24 History iron) tablet (FeroSul) magnesium oxide 400 mg (241.3 mg 400 mg PO BID 06/27/24 09/24/24 History magnesium) tablet New Prescriptions to Start Prescriptions: Height: 1.52 m Weight: 53.325 kg Laboratory Results:: Laboratory Results - last 24 hr 09/25/24 16:33: POC Glucose 200 H 09/25/24 20:00: POC Glucose 150 H 09/26/24 05:31: WBC 12.9 H, RBC 3.73 L, Hgb 10.1 L, Hct 32.5 L, MCV 87.1, MCH 27.1, MCHC 31.1 L, RDW 17.1, Plt Count 291, MPV 11.0 H, Neut % (Auto) 85.9 H, Lymph % (Auto) 8.0 L, [place] % (Auto) 5.4, Eos % (Auto) 0.0 L, Baso % (Auto) 0.2, Neut # (Auto) 11.1 H, Lymph # (Auto) 1.0, [place] # (Auto) 0.7, Eos # (Auto) 0.0, Baso # (Auto) 0.0, Sodium 138, Potassium 3.4 L, Chloride 93 L, Carbon Dioxide 37 H, Anion Gap 11.4, BUN 28 H D, Creatinine 0.90, Estimated Creat Clear 42, Estimated GFR 61, Est GFR ( Amer) 74, Glucose 153 H, Calcium 8.9, Magnesium 2.5 H D 09/26/24 10:57: POC Glucose 147 H 09/26/24 11:15: Vancomycin Trough 9.6 Medical History: Medical History (Updated 09/24/24 @ 10:01 by Falguni Torres MD) Pericardial effusion Diabetes mellitus Hyperlipidemia Hypertensive heart disease Hypertension CAD (coronary artery disease) Cataract SVT (supraventricular tachycardia) COPD exacerbation COPD (chronic obstructive pulmonary disease) Respiratory failure with hypoxia History of CVA (cerebrovascular accident) Vomiting Weight loss Lumbar stenosis Thoracic compression fracture Cerebral atrophy Sepsis UTI (urinary tract infection) CAP (community acquired pneumonia) Carotid artery stenosis Tobacco dependence syndrome Coronary arteriosclerosis Assessment and Plan Assessment and plan all Dx Assessment and Plan for all problems:: PATIENT'S VANCOMYCIN TROUGH LEVEL WAS 9.6 MCG/ML PRIOR TO 3RD DOSE. RECOMMENDED PATIENT CONTINUE WITH VANCOMYCIN 750 MG Q24H AT THIS TIME.
--- NOTE | 2024-09-26 13:23 | P.PN_ITS ---
Subjective *Date: 09/26/24 *Time: 18:30 Interval history: Stable on Vapotherm this morning. Afebrile overnight. No further episodes of SVT. Weaned to Vapotherm this morning on rounds from 100% to 90%. Sats remain above 90%. Tolerating p.o. intake. Slightly more energetic today Medical Exam Vital signs and Labs for Last 24 Hours: Vital Signs Temp Pulse Resp BP Pulse Ox O2 Del Method O2 Flow Rate 09/26/24 12:00 98.5 F 09/26/24 12:00 98.5 F 78 15 172/70 H 97 Vapotherm 40 09/26/24 11:00 79 18 169/64 H 95 Vapotherm 40 09/26/24 10:55 78 09/26/24 10:55 75 09/26/24 10:55 93 L Vapotherm 40 09/26/24 10:00 83 10 L 163/61 H 94 L Vapotherm 40 09/26/24 09:01 84 15 163/61 H 98 Vapotherm 40 09/26/24 09:00 Vapotherm 40 09/26/24 08:01 97.7 F 79 25 H 175/62 H 96 Vapotherm 40 09/26/24 08:00 15 93 L Vapotherm 40 09/26/24 08:00 85 09/26/24 08:00 97.7 F 09/26/24 07:00 68 20 153/66 H 95 Vapotherm 40 09/26/24 06:59 Vapotherm 40 09/26/24 06:09 84 09/26/24 06:09 74 09/26/24 06:09 93 L Vapotherm 40 09/26/24 06:00 92 H 27 H 152/62 H 93 L Vapotherm 40 09/26/24 05:00 93 H 26 H 165/76 H 91 L Vapotherm 40 09/26/24 05:00 Vapotherm 40 09/26/24 04:00 82 24 163/62 H 94 L Vapotherm 40 09/26/24 04:00 93 L Vapotherm 40 09/26/24 04:00 90 09/26/24 03:15 72 24 143/71 H 94 L Vapotherm 40 09/26/24 03:00 Vapotherm 40 09/26/24 03:00 74 23 143/71 H 94 L Vapotherm 40 09/26/24 02:00 63 19 137/71 94 L Vapotherm 40 09/26/24 01:09 68 09/26/24 01:09 72 09/26/24 01:09 93 L Vapotherm 40 09/26/24 01:00 64 16 134/52 L 91 L Vapotherm 40 09/26/24 01:00 Vapotherm 40 09/26/24 00:09 66 09/26/24 00:01 76 16 94 L 09/26/24 00:01 148/66 H 09/26/24 00:00 98.8 F 76 21 148/66 H 94 L Non-Rebreather, Vapotherm 40 09/25/24 23:59 94 L Non-Rebreather, Vapotherm 40 09/25/24 23:00 80 29 H 137/63 90 L Non-Rebreather, Vapotherm 40 09/25/24 23:00 Non-Rebreather, Vapotherm 09/25/24 22:30 94 L Vapotherm 40 09/25/24 22:01 91 L Non-Rebreather, Vapotherm 40 09/25/24 22:00 91 H 32 H 88 L Non-Rebreather, Vapotherm 40 09/25/24 22:00 174/112 H 09/25/24 21:58 78 L Vapotherm 40 09/25/24 21:56 74 L Vapotherm 40 09/25/24 21:45 63 09/25/24 21:45 85 09/25/24 21:00 70 26 H 164/56 H 95 Vapotherm 40 09/25/24 21:00 Vapotherm 40 09/25/24 20:04 79 09/25/24 20:00 98.5 F 70 18 149/59 H 94 L Vapotherm 40 09/25/24 19:41 94 L Vapotherm 40 09/25/24 19:00 159 H 30 H 168/58 H 90 L Vapotherm 40 09/25/24 19:00 Vapotherm 40 09/25/24 19:00 72 28 H 94 L Vapotherm 40 09/25/24 18:21 76 09/25/24 18:21 70 09/25/24 18:21 94 L 40 09/25/24 18:00 86 24 105/84 L 92 L Vapotherm 40 09/25/24 17:00 Vapotherm 40 09/25/24 17:00 66 24 149/68 H 93 L Vapotherm 40 09/25/24 16:00 73 09/25/24 15:56 95 Vapotherm 09/25/24 15:56 73 26 H 163/64 H 95 Vapotherm 40 09/25/24 15:00 Vapotherm 40 09/25/24 15:00 75 30 H 152/62 H 95 Vapotherm 40 09/25/24 14:00 79 28 H 130/72 94 L Vapotherm 40 09/25/24 13:35 75 09/25/24 13:35 75 FiO2 09/26/24 12:00 09/26/24 12:00 80 09/26/24 11:00 100 09/26/24 10:55 09/26/24 10:55 09/26/24 10:55 80 09/26/24 10:00 100 09/26/24 09:01 100 09/26/24 09:00 09/26/24 08:01 100 09/26/24 08:00 100 09/26/24 08:00 09/26/24 08:00 09/26/24 07:00 100 09/26/24 06:59 09/26/24 06:09 09/26/24 06:09 09/26/24 06:09 100 09/26/24 06:00 100 09/26/24 05:00 09/26/24 05:00 09/26/24 04:00 100 09/26/24 04:00 100 09/26/24 04:00 09/26/24 03:15 100 09/26/24 03:00 09/26/24 03:00 100 09/26/24 02:00 100 09/26/24 01:09 09/26/24 01:09 09/26/24 01:09 100 09/26/24 01:00 100 09/26/24 01:00 09/26/24 00:09 09/26/24 00:01 09/26/24 00:01 09/26/24 00:00 100 09/25/24 23:59 100 09/25/24 23:00 100 09/25/24 23:00 09/25/24 22:30 09/25/24 22:01 09/25/24 22:00 09/25/24 22:00 09/25/24 21:58 09/25/24 21:56 09/25/24 21:45 09/25/24 21:45 09/25/24 21:00 90 09/25/24 21:00 09/25/24 20:04 09/25/24 20:00 09/25/24 19:41 09/25/24 19:00 09/25/24 19:00 09/25/24 19:00 09/25/24 18:21 09/25/24 18:21 09/25/24 18:21 09/25/24 18:00 09/25/24 17:00 09/25/24 17:00 09/25/24 16:00 09/25/24 15:56 09/25/24 15:56 09/25/24 15:00 09/25/24 15:00 09/25/24 14:00 09/25/24 13:35 09/25/24 13:35 Intake and Output 09/25/24 09/26/24 09/26/24 23:59 07:59 15:59 Intake Total 100 / 300 200 / 300 Output Total 500 / 1850 300 / 300 Balance -500 / -80 -200 / 0 200 / 0 Intake: Intake, Oral Amount 200 / 200 Intake, Total IV Amount 100 / 100 Cefepime HCl 2 gm In 0.9 % 100 / 100 Sodium Chloride 100 ml @ 200 mls/hr IV Q12H [facility] Rx#:[id number] Output: Output, Urine Amount 500 / 1850 300 / 300 Other: Number of Unmeasured Voids 0 0 0 Weight 53.325 kg 53.325 kg Patient Weight 09/26/24 23:59 Weight 53.325 kg Laboratory Results - last 24 hr 09/25/24 16:33: POC Glucose 200 H 09/25/24 20:00: POC Glucose 150 H 09/26/24 05:31: WBC 12.9 H, RBC 3.73 L, Hgb 10.1 L, Hct 32.5 L, MCV 87.1, MCH 27.1, MCHC 31.1 L, RDW 17.1, Plt Count 291, MPV 11.0 H, Neut % (Auto) 85.9 H, L y[place] % (Auto) 8.0 L, [place] % (Auto) 5.4, Eos % (Auto) 0.0 L, Baso % (Auto) 0.2, Neut # (Auto) 11.1 H, Lymph # (Auto) 1.0, [place] # (Auto) 0.7, Eos # (Auto) 0.0, Baso # (Auto) 0.0, Sodium 138, Potassium 3.4 L, Chloride 93 L, Carbon Dioxide 37 H, Anion Gap 11.4, BUN 28 H D, Creatinine 0.90, Estimated Creat Clear 42, Estimated GFR 61, Est GFR ( Amer) 74, Glucose 153 H, Calcium 8.9, Magnesium 2.5 H D 09/26/24 10:57: POC Glucose 147 H 09/26/24 11:15: Vancomycin Trough 9.6 I & O for Labs for Last 24 Hours: Intake & Output 09/23/24 09/24/24 09/25/24 09/26/24 23:59 23:59 23:59 23:59 Intake Total 100 / 100 1670 / 1770 300 / 300 Output Total 750 / 750 1850 / 1850 300 / 300 Balance -650 / -650 -180 / -80 0 / 0 Weight 54.686 kg 53.524 kg 53.325 kg Microbiology Reports for the Last 24 Hours: Microbiology 09/24/24 11:58 Anus CRE Surveillance Culture - Final Negative 09/24/24 08:28 Blood Blood Culture - Preliminary NO GROWTH AFTER 48 HOURS 09/24/24 08:27 Blood Blood Culture - Preliminary NO GROWTH AFTER 48 HOURS 09/25/24 11:25 Sputum - Expectorated Sputum Gram Stain - Final Constitutional: Present moderate distress, thin, chronically ill appearing and cooperative Head: Present atraumatic and normocephalic ENT: Present normal exam Respiratory: Present accessory muscle use, prolonged expiratory phase and rhonchi; Absent wheezes or crackles Comment:: Increased cough production today Cardiac: Present Reg Rate and Rhythm Comment:: 2 episodes of SVT with a rate of approximately 160. Improved with vagal maneuver GI: Present soft and normal bowel sounds; Absent distention or tenderness Extremities: Present normal inspection and full ROM; Absent tenderness Skin: Present intact; Absent erythema Neuro: Present Grossly Intact, alert and awake Comment:: Knows who she is, answering simple questions appropriately. Fatigued with answers. Right sided residual deficits from chronic CVA Assessment and Plan *Assessment and plan (1) Severe sepsis: Status: Acute Category: Medical Code(s): A41.9 - Sepsis, unspecified organism; R65.20 - Severe sepsis without septic shock (2) Multifocal pneumonia: Status: Acute Category: Medical Code(s): J18.9 - Pneumonia, unspecified organism (3) Acute hypoxic respiratory failure: Status: Acute Category: Medical Code(s): J96.01 - Acute respiratory failure with hypoxia (4) Hypertension: Status: Acute Qualifiers: Hypertension type: primary hypertension Qualified Code(s): I10 - Essential (primary) hypertension Category: Medical Code(s): I10 - Essential (primary) hypertension (5) Diabetes mellitus: Status: Acute Qualifiers: Diabetes mellitus complication status: without complication Diabetes mellitus retirement insulin use: without tour consultant use Diabetes mellitus type: type 2 Qualified Code(s): E11.9 - Type 2 diabetes mellitus without complications Category: Medical Code(s): E11.9 - Type 2 diabetes mellitus without complications (6) CAD (coronary artery disease): Status: Acute Qualifiers: Associated angina: without angina Coronary Disease-Associated Artery/Lesion type: [place] artery [place] vs. transplanted heart: [place] heart Qualified Code(s): I25.10 - Atherosclerotic heart disease of [place] coronary artery without angina pectoris Category: Medical Code(s): I25.10 - Atherosclerotic heart disease of [place] coronary artery without angina pectoris (7) Diastolic CHF: Status: Acute Category: Medical Code(s): I50.30 - Unspecified diastolic (congestive) heart failure (8) Diabetes type 2, controlled: Status: Acute Category: Medical Code(s): E11.9 - Type 2 diabetes mellitus without complications (9) Vascular dementia: Status: Acute Category: Medical Code(s): F01.50 - Vascular dementia, unspecified severity, without behavioral disturbance, psychotic disturbance, mood disturbance, and anxiety (10) History of CVA (cerebrovascular accident): Status: Chronic Category: Medical Code(s): Z86.73 - Personal history of transient ischemic attack (TIA), and cerebral infarction without residual deficits Plan 73-year-old female with history of CHF, CABG, CAD, CVA, diabetes, dementia. Presented with acute worsening shortness of breath. Workup in the ER concerning for CHF exacerbation, evere sepsis, multifocal pneumonia. Discussed case with ER physician, request admission for further treatment of respiratory failure. I agreed to admit for further management. Meeting severe sepsis criteria with white count of 19, tachycardia with heart rate of 93, infection on CT, multiorgan dysfunction. Fluid bolus held on admission due to component of CHF with elevated BNP suggestive of volume overload. Will trial diuresis once with Lasix 40 mg IV. Initiated on broad-spectrum antibiotics. Condition critical, prognosis guarded. Did show some slight improvement today. Vapotherm weaned to 40 L and 80%. Continue ICU level care. Problems addressed as follows: Acute on chronic hypoxemic respiratory failure CHF exacerbation Pneumonia - Continue cefepime and vancomycin IV, monitor for toxicity of kidney function - Blood and sputum cultures pending - Continue Lasix 40 mg IV twice daily. Strict I's and O's -BNP elevated at 5000, Troponin negative at less than 0.01. - White count elevated at 12.9, hemoglobin 10. Kidney function stable with sodium 138, potassium 3.4, BUN 28, creatinine 0.9. Magnesium 2.5 - Repeat CBC, CMP, magnesium ordered for the morning. - Discussed case with pulmonology, continue incentive spirometry 3 times a day. Wean high flow nasal cannula as tolerated for goal sats above 90%. Continue chest percussion twice daily along with suction. Diabetes: A1c 6.1. Glucose well controlled, 121 on morning labs, DC sliding scale insulin with fingersticks ACHS. Continue home metformin at 1000 mg twice daily Hypertension: SVT - holding home blood pressure medication at this time to allow for diuresis. Will consider resuming when more hemodynamically stable or hypertensive - Continue metoprolol succinate 100 mg increased to twice daily. Continue metoprolol tartrate 5 mg IV every 6 hours as needed for heart rate greater than 100. Will consider adenosine if SVT does not respond to vagal maneuvers. GERD: Continue pantoprazole 40 mg daily p.o. History of CVA: continue Lipitor 80 mg daily for hyperlipidemia, continue aspirin 325 mg daily Depression: Holding Lexapro due to somnolence Vascular dementia: Holding donepezil and memantine due to somnolence. DNR Lovenox 40 mg subcu daily Cardiac diet ICU/Critical care attestation This patient is critically ill with 35 minutes devoted solely to this patient managing life/organ supporting interventions that required physician assessment. This includes time spent making adjustments in ventilator settings, IV fluid administration, titration of pressors, adjustments of medications, discussion of patient with consultants and other care providers as well as updating patient and/or family (if patient by virtue of his/her condition is unable to participate in decision making). This does not include time spent performing separately billed procedures. Time is not concurrent with that of other providers.
[2024-09-26] MEDS: VANCOMYCIN HCL 750 MG in 0.9 % SODIUM CHLORIDE 250 ML 125 MG IV (13:39)
[2024-09-26 16:52] LABS: POC Glucose,Bedside 125 (70-110)
[2024-09-26] MEDS: PANTOPRAZOLE 40MG VIAL 40 MG IV (20:03)
[2024-09-26] MEDS: ATORVASTATIN 40MG TABLET 80 MG PO (20:03)
[2024-09-26 20:12] LABS: POC Glucose,Bedside 151 (70-110)
[2024-09-27] VITALS (35 sets, daily range): BP systolic 93–194; BP diastolic 51–85; PULSE 59–90; RESP 16–31; TEMP 36.4–37; O2SAT 90–94; BMI 23.6
[2024-09-27] MEDS: IPRATROPIUM/ALBUTEROL 3 ML NEB IH ×6 (02:26→22:51)
[2024-09-27 06:04] LABS: Hematocrit 32.8 % (37.0-47.0); Hemoglobin 10.1 g/dL (12.2-16.2); Immature Granulocytes % 0.6 %; Mean Corpuscular HGB Conc 30.8 g/dL (31.8-35.4); Mean Corpuscular Hemoglobin 27.2 pg (27.0-31.2); Mean Corpuscular Volume 88.2 fl (81-99); Nucleated Red Blood Cells % 0 %; Platelet Count 325 K/mm3 (142-424); Red Blood Count 3.72 M/mm3 (4.20-5.40); Red Cell Distribution Width-SD 54.5 fL; White Blood Count 11.9 K/mm3 (4.8-10.8)
[2024-09-27 06:10] LABS: POC Glucose,Bedside 129 (70-110)
[2024-09-27 06:12] LABS: Alanine Aminotransferase 15 U/L (12-78); Albumin Level 3.4 g/dl (3.5-5.0); Albumin/Globulin Ratio 1.1 (1.1-1.8); Alkaline Phosphatase 118 U/L (38-126); Anion Gap 13.3 mEq/L (5-15); Aspartate Amino Transferase 24 U/L (14-36); Bilirubin,Total 1.0 mg/dl (0.2-1.3); Blood Urea Nitrogen 23 mg/dl (7-17); Calcium 9.1 mg/dl (8.4-10.2); Carbon Dioxide 35 mmol/L (22.0-30.0); Chloride 93 mmol/L (98-107); Creatinine Clearance Estimated 43 mL/min (50-200); Creatinine,Serum 1.00 mg/dl (0.52-1.04); Estimated Glomerular Filt Rate 54 ml/min (>60); GFR (African American) 66 ML/MIN (>60); Globulin 3.2 g/dL (1.3-3.2); Glucose 128 mg/dl (74-100); Magnesium 2.0 mg/dl (1.6-2.3); Potassium 3.3 mmoL/L (3.5-5.1); Sodium 138 mmol/L (136-145); Total Protein,Serum 6.6 g/dl (6.3-8.2)
--- NOTE | 2024-09-27 06:51 | PC.NURSE ---
Patient alert and oriented gcs of 15 all shift. Patient is on vapotherm still when started shift settings were 40/70 and this morning she has been turned down to 35/65. Patients oxygen saturation is staying 91%. Patient didn't sleep well last night maybe slept a total of 2 hours. Patients glucose at 2100 was 151 but due to patient not eating well no insulin was given. This morning patients glucose was 129 no coverage needed. Patient has been turned q2 hours. Patient does have redness on her coccyx area and a mepalex has been placed on it. Patients family is at bedside at this time.
[2024-09-27] MEDS: POTASSIUM CHLORIDE 20MEQ TAB 40 MEQ PO ×2 (08:40→11:10)
[2024-09-27] MEDS: MEMANTINE 10MG TABLET 10 MG PO ×2 (08:41→20:14)
[2024-09-27] MEDS: FUROSEMIDE 40MG/4ML VIAL 40 MG IV (08:41)
[2024-09-27] MEDS: ASPIRIN 325MG TABLET 325 MG PO (08:41)
[2024-09-27] MEDS: METOPROLOL SUCCINATE XL 100MG TABLET 100 MG PO ×2 (08:41→20:14)
--- NOTE | 2024-09-27 09:05 | P.PN_ITS ---
Subjective *Date: 09/27/24 *Time: 09:05 Medical Exam Vital signs and Labs for Last 24 Hours: Vital Signs Temp Pulse Resp BP Pulse Ox O2 Del Method O2 Flow Rate 09/27/24 08:02 80 09/27/24 08:00 98.5 F 66 24 146/60 H 90 L Vapotherm 35 09/27/24 07:00 61 24 179/76 H 90 L Vapotherm 35 09/27/24 06:45 Vapotherm 35 09/27/24 06:00 67 09/27/24 06:00 67 09/27/24 06:00 94 L Vapotherm 40 09/27/24 06:00 67 19 169/76 H 94 L Vapotherm 35 09/27/24 05:00 Vapotherm 40 09/27/24 05:00 63 21 156/77 H 92 L Vapotherm 40 09/27/24 04:00 98.2 F 59 L 21 165/53 H 93 L Vapotherm 40 09/27/24 04:00 66 09/27/24 03:54 93 L Vapotherm 40 09/27/24 03:00 69 18 145/51 H 92 L Vapotherm 40 09/27/24 03:00 Vapotherm 40 09/27/24 02:26 64 09/27/24 02:26 64 09/27/24 02:00 71 29 H 154/67 H 91 L Vapotherm 40 09/27/24 01:00 Vapotherm 40 09/27/24 01:00 73 29 H 173/70 H 91 L Vapotherm 40 09/27/24 00:00 90 L Vapotherm 40 09/27/24 00:00 91 L Vapotherm 40 09/27/24 00:00 72 09/27/24 00:00 97.6 F 74 28 H 161/73 H 91 L Vapotherm 40 09/26/24 23:00 Vapotherm 40 09/26/24 23:00 67 28 H 148/63 H 91 L Vapotherm 40 09/26/24 22:47 70 09/26/24 22:47 70 09/26/24 22:00 71 29 H 161/61 H 91 L Vapotherm 40 09/26/24 21:00 71 22 174/75 H 91 L Vapotherm 40 09/26/24 21:00 Vapotherm 40 09/26/24 20:00 92 L Vapotherm 40 09/26/24 20:00 98.2 F 74 28 H 162/86 H 90 L 09/26/24 20:00 80 09/26/24 19:00 90 17 168/81 H 90 L Vapotherm 40 09/26/24 19:00 Vapotherm 40 09/26/24 18:32 78 09/26/24 18:32 76 09/26/24 18:32 90 L Vapotherm 40 09/26/24 18:00 93 H 21 176/81 H 88 L Vapotherm 40 09/26/24 17:00 Vapotherm 40 09/26/24 17:00 87 40 H 182/80 H 91 L Vapotherm 40 09/26/24 16:01 74 23 155/57 H 95 Vapotherm 40 09/26/24 16:00 17 90 L Vapotherm 40 09/26/24 16:00 76 09/26/24 16:00 98.6 F 09/26/24 15:00 74 22 157/59 H 95 Vapotherm 40 09/26/24 15:00 Vapotherm 40 09/26/24 14:25 78 09/26/24 14:25 73 09/26/24 14:25 92 L Vapotherm 40 09/26/24 14:00 82 16 96 09/26/24 14:00 180/66 H 09/26/24 13:45 87 23 97 09/26/24 13:30 66 28 H 97 09/26/24 13:15 73 25 H 95 09/26/24 13:00 Vapotherm 40 09/26/24 13:00 80 27 H 154/61 H 95 Vapotherm 40 09/26/24 12:00 18 92 L Vapotherm 40 09/26/24 12:00 81 09/26/24 12:00 98.5 F 09/26/24 12:00 98.5 F 78 15 172/70 H 97 Vapotherm 40 09/26/24 11:00 40 09/26/24 11:00 79 18 169/64 H 95 Vapotherm 40 09/26/24 10:55 78 09/26/24 10:55 75 09/26/24 10:55 93 L Vapotherm 40 09/26/24 10:00 83 10 L 163/61 H 94 L Vapotherm 40 FiO2 09/27/24 08:02 09/27/24 08:00 65 09/27/24 07:00 65 09/27/24 06:45 09/27/24 06:00 09/27/24 06:00 09/27/24 06:00 70 09/27/24 06:00 65 09/27/24 05:00 09/27/24 05:00 70 09/27/24 04:00 70 09/27/24 04:00 09/27/24 03:54 70 09/27/24 03:00 70 09/27/24 03:00 09/27/24 02:26 09/27/24 02:26 09/27/24 02:00 70 09/27/24 01:00 09/27/24 01:00 70 09/27/24 00:00 70 09/27/24 00:00 70 09/27/24 00:00 09/27/24 00:00 70 09/26/24 23:00 09/26/24 23:00 70 09/26/24 22:47 09/26/24 22:47 09/26/24 22:00 70 09/26/24 21:00 70 09/26/24 21:00 09/26/24 20:00 70 09/26/24 20:00 09/26/24 20:00 09/26/24 19:00 09/26/24 19:00 09/26/24 18:32 09/26/24 18:32 09/26/24 18:32 09/26/24 18:00 09/26/24 17:00 09/26/24 17:00 80 09/26/24 16:01 80 09/26/24 16:00 70 09/26/24 16:00 09/26/24 16:00 09/26/24 15:00 80 09/26/24 15:00 09/26/24 14:25 09/26/24 14:25 09/26/24 14:25 80 09/26/24 14:00 09/26/24 14:00 09/26/24 13:45 09/26/24 13:30 09/26/24 13:15 09/26/24 13:00 09/26/24 13:00 80 09/26/24 12:00 80 09/26/24 12:00 09/26/24 12:00 09/26/24 12:00 80 09/26/24 11:00 09/26/24 11:00 100 09/26/24 10:55 09/26/24 10:55 09/26/24 10:55 80 09/26/24 10:00 100 Intake and Output 09/26/24 09/27/24 09/27/24 23:59 07:59 15:59 Intake Total 485 / 1105 160 / 394 234 / 394 Output Total 575 / 900 Balance -90 / 205 135 / 369 234 / 369 Intake: Intake, Oral Amount 260 / 680 60 / 294 234 / 294 Intake, Total IV Amount 225 / 425 100 / 100 Cefepime HCl 2 gm In 0.9 % 100 / 300 100 / 100 Sodium Chloride 100 ml @ 200 mls/hr IV Q12H [facility] Rx#:[id number] Vancomycin HCl 750 mg In 0.9 % 125 / 125 Sodium Chloride 250 ml @ 125 mls/hr IV Q24H [facility] Rx#:[id number] Output: Output, Urine Amount 575 / 900 Other: Number of Unmeasured Voids 0 0 Weight 54.613 kg Patient Weight 09/27/24 23:59 Weight 54.613 kg Laboratory Results - last 24 hr 09/26/24 05:31: Magnesium 2.5 H D 09/26/24 10:57: POC Glucose 147 H 09/26/24 11:15: Vancomycin Trough 9.6 09/26/24 16:42: POC Glucose 125 H 09/26/24 20:05: POC Glucose 151 H 09/27/24 05:08: WBC 11.9 H, RBC 3.72 L, Hgb 10.1 L, Hct 32.8 L, MCV 88.2, MCH 27.2, MCHC 30.8 L, RDW 16.9, Plt Count 325, MPV 11.0 H, Neut % (Auto) 79.3, Lymph % (Auto) 12.6, [place] % (Auto) 7.0, Eos % (Auto) 0.3, Baso % (Auto) 0.2, Neut # (Auto) 9.4 H, Lymph # (Auto) 1.5, [place] # (Auto) 0.8, Eos # (Auto) 0.0, Baso # (Auto) 0.0, Sodium 138, Potassium 3.3 L, Chloride 93 L, Carbon Dioxide 35 H, Anion Gap 13.3, BUN 23 H, Creatinine 1.00, Estimated Creat Clear 43, Estimated GFR 54 L, Est GFR ( Amer) 66, Glucose 128 H, Calcium 9.1, Magnesium 2.0 D, Total Bilirubin 1.0, AST 24, ALT 15, Alkaline Phosphatase 118, Total Protein 6.6, Albumin 3.4 L, Globulin 3.2, Albumin/Globulin Ratio 1.1 09/27/24 06:01: POC Glucose 129 H I & O for Labs for Last 24 Hours: Intake & Output 09/24/24 09/25/24 09/26/24 09/27/24 23:59 23:59 23:59 23:59 Intake Total 100 / 100 1670 / 1770 1005 / 1105 394 / 394 Output Total 750 / 750 1850 / 1850 875 / 900 Balance -650 / -650 -180 / -80 130 / 205 369 / 369 Weight 54.686 kg 53.524 kg 53.325 kg 54.613 kg Microbiology Reports for the Last 24 Hours: Microbiology 09/25/24 11:25 Sputum - Expectorated Sputum Gram Stain - Final 09/25/24 11:25 Sputum - Expectorated Sputum Sputum Culture - Preliminary 09/24/24 11:58 Anus CRE Surveillance Culture - Final Negative 09/24/24 08:28 Blood Blood Culture - Preliminary NO GROWTH AFTER 48 HOURS 09/24/24 08:27 Blood Blood Culture - Preliminary NO GROWTH AFTER 48 HOURS The patient's infection will respond to the chosen ABx?: Yes Is the patient receiving the right drug, dose, and route?: Yes Could a more targeted ABx be ordered?: No (BLOOD CX NG; SPUTUM CX PENDING)
[2024-09-27] MEDS: CEFEPIME HCL 2 GM in 0.9 % SODIUM CHLORIDE 100 ML IV ×2 (09:28→21:03)
[2024-09-27] MEDS: LISINOPRIL 20MG TABLET 40 MG PO (10:18)
[2024-09-27] MEDS: AMLODIPINE 5MG TABLET 5 MG PO (10:18)
--- NOTE | 2024-09-27 11:23 | PC.NURSE ---
patient is Q2 oral care and aspiration precautions.
--- NOTE | 2024-09-27 11:24 | PC.NURSE ---
patient is a Q2 turn and on aspiration precautions. patients heels are floated with a pillow and patient is currently right side lying. A preventative dressing is on patients buttocks to prevent further breakdown @1040. A new pure wick was placed to accurately monitor output. john care was performed this shift. bed alarm is on and functioning. call light is within reach. Will continue to turn patient on Q2hr schedule.
[2024-09-27 11:26] LABS: POC Glucose,Bedside 140 (70-110)
[2024-09-27] MEDS: VANCOMYCIN HCL 750 MG in 0.9 % SODIUM CHLORIDE 250 ML 125 MG IV (11:49)
--- NOTE | 2024-09-27 13:50 | P.PN_ITS ---
Subjective *Date: 09/27/24 *Time: 14:47 Interval history: Stable on Vapotherm this morning. Afebrile overnight. No further episodes of SVT. Vapotherm 35 L, 65%. Sats remain above 90%. Tolerating p.o. intake. Cooperating with percussion and suction. Showing slight improvement. Improve mentation to baseline. Family at bedside Medical Exam Vital signs and Labs for Last 24 Hours: Vital Signs Temp Pulse Resp BP Pulse Ox O2 Del Method O2 Flow Rate 09/27/24 13:00 Vapotherm 35 09/27/24 12:04 70 09/27/24 12:00 97.9 F 69 24 148/71 H 93 L Vapotherm 35 09/27/24 11:13 69 28 H 153/60 H 92 L Vapotherm 35 09/27/24 11:00 Vapotherm 35 09/27/24 10:40 65 09/27/24 10:40 68 09/27/24 10:40 91 L Vapotherm 35 09/27/24 10:40 65 16 09/27/24 10:00 65 20 191/73 H 91 L Vapotherm 35 09/27/24 10:00 75 22 172/72 H 90 L Vapotherm 35 09/27/24 09:31 73 22 178/72 H 91 L Vapotherm 35 09/27/24 09:03 91 L Vapotherm 35 09/27/24 09:01 77 20 194/85 H 91 L Vapotherm 35 09/27/24 09:00 73 24 178/72 H 92 L Vapotherm 35 09/27/24 09:00 Vapotherm 35 09/27/24 08:02 80 09/27/24 08:00 98.5 F 66 24 146/60 H 90 L Vapotherm 35 09/27/24 07:00 61 24 179/76 H 90 L Vapotherm 35 09/27/24 06:45 Vapotherm 35 09/27/24 06:00 67 09/27/24 06:00 67 09/27/24 06:00 94 L Vapotherm 40 09/27/24 06:00 67 19 169/76 H 94 L Vapotherm 35 09/27/24 05:00 Vapotherm 40 09/27/24 05:00 63 21 156/77 H 92 L Vapotherm 40 09/27/24 04:00 98.2 F 59 L 21 165/53 H 93 L Vapotherm 40 09/27/24 04:00 66 09/27/24 03:54 93 L Vapotherm 40 09/27/24 03:00 69 18 145/51 H 92 L Vapotherm 40 09/27/24 03:00 Vapotherm 40 09/27/24 02:26 64 09/27/24 02:26 64 09/27/24 02:00 71 29 H 154/67 H 91 L Vapotherm 40 09/27/24 01:00 Vapotherm 40 09/27/24 01:00 73 29 H 173/70 H 91 L Vapotherm 40 09/27/24 00:00 90 L Vapotherm 40 09/27/24 00:00 91 L Vapotherm 40 09/27/24 00:00 72 09/27/24 00:00 97.6 F 74 28 H 161/73 H 91 L Vapotherm 40 09/26/24 23:00 Vapotherm 40 09/26/24 23:00 67 28 H 148/63 H 91 L Vapotherm 40 09/26/24 22:47 70 09/26/24 22:47 70 09/26/24 22:00 71 29 H 161/61 H 91 L Vapotherm 40 09/26/24 21:00 71 22 174/75 H 91 L Vapotherm 40 09/26/24 21:00 Vapotherm 40 09/26/24 20:00 92 L Vapotherm 40 09/26/24 20:00 98.2 F 74 28 H 162/86 H 90 L 09/26/24 20:00 80 09/26/24 19:00 90 17 168/81 H 90 L Vapotherm 40 09/26/24 19:00 Vapotherm 40 09/26/24 18:32 78 09/26/24 18:32 76 09/26/24 18:32 90 L Vapotherm 40 09/26/24 18:00 93 H 21 176/81 H 88 L Vapotherm 40 09/26/24 17:00 Vapotherm 40 09/26/24 17:00 87 40 H 182/80 H 91 L Vapotherm 40 09/26/24 16:01 74 23 155/57 H 95 Vapotherm 40 09/26/24 16:00 17 90 L Vapotherm 40 09/26/24 16:00 76 09/26/24 16:00 98.6 F 09/26/24 15:00 74 22 157/59 H 95 Vapotherm 40 09/26/24 15:00 Vapotherm 40 09/26/24 14:25 78 09/26/24 14:25 73 09/26/24 14:25 92 L Vapotherm 40 09/26/24 14:00 82 16 96 09/26/24 14:00 180/66 H FiO2 09/27/24 13:00 09/27/24 12:04 09/27/24 12:00 65 09/27/24 11:13 65 09/27/24 11:00 09/27/24 10:40 09/27/24 10:40 09/27/24 10:40 65 09/27/24 10:40 09/27/24 10:00 65 09/27/24 10:00 65 09/27/24 09:31 65 09/27/24 09:03 65 09/27/24 09:01 65 09/27/24 09:00 65 09/27/24 09:00 09/27/24 08:02 09/27/24 08:00 65 09/27/24 07:00 65 09/27/24 06:45 09/27/24 06:00 09/27/24 06:00 09/27/24 06:00 70 09/27/24 06:00 65 09/27/24 05:00 09/27/24 05:00 70 09/27/24 04:00 70 09/27/24 04:00 09/27/24 03:54 70 09/27/24 03:00 70 09/27/24 03:00 09/27/24 02:26 09/27/24 02:26 09/27/24 02:00 70 09/27/24 01:00 09/27/24 01:00 70 09/27/24 00:00 70 09/27/24 00:00 70 09/27/24 00:00 09/27/24 00:00 70 09/26/24 23:00 09/26/24 23:00 70 09/26/24 22:47 09/26/24 22:47 09/26/24 22:00 70 09/26/24 21:00 70 09/26/24 21:00 09/26/24 20:00 70 09/26/24 20:00 09/26/24 20:00 09/26/24 19:00 09/26/24 19:00 09/26/24 18:32 09/26/24 18:32 09/26/24 18:32 70 09/26/24 18:00 80 09/26/24 17:00 09/26/24 17:00 80 09/26/24 16:01 80 09/26/24 16:00 70 09/26/24 16:00 09/26/24 16:00 09/26/24 15:00 80 09/26/24 15:00 09/26/24 14:25 09/26/24 14:25 09/26/24 14:25 80 09/26/24 14:00 09/26/24 14:00 Intake and Output 09/26/24 09/27/24 09/27/24 23:59 07:59 15:59 Intake Total 485 / 1105 160 / 494 334 / 494 Output Total 575 / 900 25 / 425 400 / 425 Balance -90 / 205 135 / 69 -66 / 69 Intake: Intake, Oral Amount 260 / 680 60 / 294 234 / 294 Intake, Total IV Amount 225 / 425 100 / 200 100 / 200 Cefepime HCl 2 gm In 0.9 % 100 / 300 100 / 200 100 / 200 Sodium Chloride 100 ml @ 200 mls/hr IV Q12H [facility] Rx#:[id number] Vancomycin HCl 750 mg In 0.9 % 125 / 125 Sodium Chloride 250 ml @ 125 mls/hr IV Q24H [facility] Rx#:[id number] Output: Output, Urine Amount 575 / 900 25 / 425 400 / 425 Other: Number of Unmeasured Voids 0 0 0 Weight 54.613 kg 54.613 kg Patient Weight 09/27/24 23:59 Weight 54.613 kg Laboratory Results - last 24 hr 09/26/24 16:42: POC Glucose 125 H 09/26/24 20:05: POC Glucose 151 H 09/27/24 05:08: WBC 11.9 H, RBC 3.72 L, Hgb 10.1 L, Hct 32.8 L, MCV 88.2, MCH 27.2, MCHC 30.8 L, RDW 16.9, Plt Count 325, MPV 11.0 H, Neut % (Auto) 79.3, Lymph % (Auto) 12.6, [place] % (Auto) 7.0, Eos % (Auto) 0.3, Baso % (Auto) 0.2, Neut # (Auto) 9.4 H, Lymph # (Auto) 1.5, [place] # (Auto) 0.8, Eos # (Auto) 0.0, Baso # (Auto) 0.0, Sodium 138, Potassium 3.3 L, Chloride 93 L, Carbon Dioxide 35 H, Anion Gap 13.3, BUN 23 H, Creatinine 1.00, Estimated Creat Clear 43, Estimated GFR 54 L, Est GFR ( Amer) 66, Glucose 128 H, Calcium 9.1, Magnesium 2.0 D, Total Bilirubin 1.0, AST 24, ALT 15, Alkaline Phosphatase 118, Total Protein 6.6, Albumin 3.4 L, Globulin 3.2, Albumin/Globulin Ratio 1.1 09/27/24 06:01: POC Glucose 129 H 09/27/24 11:10: POC Glucose 140 H I & O for Labs for Last 24 Hours: Intake & Output 09/24/24 09/25/24 09/26/24 09/27/24 23:59 23:59 23:59 23:59 Intake Total 100 / 100 1670 / 1770 1005 / 1105 494 / 494 Output Total 750 / 750 1850 / 1850 875 / 900 425 / 425 Balance -650 / -650 -180 / -80 130 / 205 69 / 69 Weight 54.686 kg 53.524 kg 53.325 kg 54.613 kg Microbiology Reports for the Last 24 Hours: Microbiology 09/25/24 11:25 Sputum - Expectorated Sputum Gram Stain - Final 09/25/24 11:25 Sputum - Expectorated Sputum Sputum Culture - Preliminary Constitutional: Present mild distress, thin, chronically ill appearing and cooperative Head: Present atraumatic and normocephalic ENT: Present normal exam Respiratory: Present accessory muscle use, prolonged expiratory phase, rhonchi and crackles (Right middle lobe mid axillary); Absent wheezes Comment:: Rhonchorous cough today, productive Cardiac: Present Reg Rate and Rhythm GI: Present soft and normal bowel sounds; Absent distention or tenderness Extremities: Present normal inspection and full ROM; Absent tenderness Skin: Present intact; Absent erythema Comment:: Tiny area of irritation on bottom. Present on admission. Neuro: Present Grossly Intact, alert and awake Comment:: Residual right-sided deficits from previous CVA. At baseline mentation. Alert and oriented to person and place Assessment and Plan *Assessment and plan (1) Severe sepsis: Status: Acute Category: Medical Code(s): A41.9 - Sepsis, unspecified organism; R65.20 - Severe sepsis without septic shock (2) Multifocal pneumonia: Status: Acute Category: Medical Code(s): J18.9 - Pneumonia, unspecified organism (3) Acute hypoxic respiratory failure: Status: Acute Category: Medical Code(s): J96.01 - Acute respiratory failure with hypoxia (4) Hypertension: Status: Acute Qualifiers: Hypertension type: primary hypertension Qualified Code(s): I10 - Essential (primary) hypertension Category: Medical Code(s): I10 - Essential (primary) hypertension (5) Diabetes mellitus: Status: Acute Qualifiers: Diabetes mellitus complication status: without complication Diabetes mellitus terminal supervisor insulin use: without fpc use Diabetes mellitus type: type 2 Qualified Code(s): E11.9 - Type 2 diabetes mellitus without complications Category: Medical Code(s): E11.9 - Type 2 diabetes mellitus without complications (6) CAD (coronary artery disease): Status: Acute Qualifiers: Associated angina: without angina Coronary Disease-Associated [place]/Lesion type: [place] artery [place] vs. transplanted heart: [place] heart Qualified Code(s): I25.10 - Atherosclerotic heart disease of [place] coronary artery without angina pectoris Category: Medical Code(s): I25.10 - Atherosclerotic heart disease of [place] coronary artery without angina pectoris (7) Diastolic CHF: Status: Acute Category: Medical Code(s): I50.30 - Unspecified diastolic (congestive) heart failure (8) Diabetes type 2, controlled: Status: Acute Category: Medical Code(s): E11.9 - Type 2 diabetes mellitus without complications (9) Vascular dementia: Status: Acute Category: Medical Code(s): F01.50 - Vascular dementia, unspecified severity, without behavioral disturbance, psychotic disturbance, mood disturbance, and anxiety (10) History of CVA (cerebrovascular accident): Status: Chronic Category: Medical Code(s): Z86.73 - Personal history of transient ischemic attack (TIA), and cerebral infarction without residual deficits Plan 73-year-old female with history of CHF, CABG, CAD, CVA, diabetes, dementia. Presented with acute worsening shortness of breath. Workup in the ER concerning for CHF exacerbation, evere sepsis, multifocal pneumonia. Discussed case with ER physician, request admission for further treatment of respiratory failure. I agreed to admit for further management. Meeting severe sepsis criteria with white count of 19, tachycardia with heart rate of 93, infection on CT, multiorgan dysfunction. Fluid bolus held on admission due to component of CHF with elevated BNP suggestive of volume overload. Has shown gradual improvement over the past few days. Continues to require elevated level of care, de- escalate to stepdown however. Weaning Vapotherm. Continues to require inpatient management. Condition serious, prognosis guarded. Tolerating broad- spectrum antibiotics with improved clinical state. Problems addressed as follows: Acute on chronic hypoxemic respiratory failure CHF exacerbation Pneumonia - Continue cefepime and vancomycin IV, monitor for toxicity of kidney function - white count improved to 11.9. - Blood cultures negative at 48 hours. CRE screen negative. Sputum culture with no results at this - Continue Lasix, decrease to 40 mg IV once daily. Strict I's and O's - hemoglobin 10. Kidney function stable with sodium 138, chloride 93, potassium 3.3, BUN 23, creatinine 1, magnesium 2 point - Repeat CBC, CMP, magnesium ordered for the morning. - continue incentive spirometry 3 times a day. Wean high flow nasal cannula as tolerated for goal sats above 90%. Continue chest percussion twice daily along with suction. Diabetes: A1c 6.1. Glucose well controlled, 120 on morning labs, continue fingersticks ACHS. No need for sliding scale at this time. Continue home metformin at 1000 mg twice daily Hypertension: SVT - Heart rate doing better. Continue metoprolol succinate 100 mg twice daily. Resume amlodipine 5 mg daily and lisinopril 40 mg daily for hypertension GERD: Continue pantoprazole 40 mg daily p.o. History of CVA: continue Lipitor 80 mg daily for hyperlipidemia, continue aspirin 325 mg daily Depression: Resume Lexapro 10 mg daily Vascular dementia: Holding donepezil and memantine due to somnolence. DNR Lovenox 40 mg subcu daily Cardiac diet
[2024-09-27] MEDS: humaLOG 100 UNITS/ML 10ML VIAL (SSI) SUBCUT (16:30)
[2024-09-27] MEDS: PANTOPRAZOLE 40MG TABLET 40 MG PO (20:14)
[2024-09-27] MEDS: ATORVASTATIN 40MG TABLET 80 MG PO (20:14)
[2024-09-28] VITALS (32 sets, daily range): BP systolic 123–198; BP diastolic 50–92; PULSE 61–90; RESP 15–33; TEMP 36.6–37.1; O2SAT 90–94; BMI 23.6
[2024-09-28] MEDS: IPRATROPIUM/ALBUTEROL 3 ML NEB IH ×5 (02:53→18:12)
[2024-09-28] MEDS: MEMANTINE 10MG TABLET 10 MG PO ×2 (08:03→20:16)
[2024-09-28] MEDS: AMLODIPINE 5MG TABLET 5 MG PO (08:03)
[2024-09-28] MEDS: ASPIRIN 325MG TABLET 325 MG PO (08:03)
[2024-09-28] MEDS: LISINOPRIL 20MG TABLET 40 MG PO (08:04)
[2024-09-28] MEDS: FUROSEMIDE 40MG/4ML VIAL 40 MG IV (08:04)
[2024-09-28] MEDS: METOPROLOL SUCCINATE XL 100MG TABLET 100 MG PO ×2 (08:04→20:16)
[2024-09-28] MEDS: ESCITALOPRAM 10MG TABLET 10 MG PO (08:04)
--- NOTE | 2024-09-28 08:04 | XR_ITS ---
PROCEDURE INFORMATION: Exam: XR Chest Exam date and time: 09/28/2024 8:24 AM Age: 73 years old Clinical indication: Other: Eval pneumonia in rml TECHNIQUE: Imaging protocol: Radiologic exam of the chest. Views: 1 view. COMPARISON: CR XR CHEST PORTABLE 09/26/2024 9:15 AM FINDINGS: Lungs: Continued airspace opacity in the right middle lobe. Linear atelectasis left base. Pleural spaces: Unremarkable. No pleural effusion. No pneumothorax. Heart/Mediastinum: Unremarkable. No cardiomegaly. Diaphragm: Stable elevation right hemidiaphragm. Bones/joints: Median sternotomy wires. IMPRESSION: Continued airspace opacity in the right middle lobe.
--- NOTE | 2024-09-28 08:09 | P.PN_ITS ---
Subjective *Date: 09/28/24 *Time: 14:46 Interval history: Stable on Vapotherm this morning. Afebrile overnight. Had 1 brief episode of SVT that resolved with vagal maneuvers. Vapotherm 30 L and 60% this morning. Sats in the low 90s. Tolerating p.o. intake. Cooperating with percussion and suction. Showing slight improvement. Baseline mentation. Family at bedside. Medical Exam Vital signs and Labs for Last 24 Hours: Vital Signs Temp Pulse Pulse Resp BP BP Pulse Ox 09/28/24 07:00 87 24 175/70 H 94 L 09/28/24 06:28 72 09/28/24 06:28 76 09/28/24 06:28 93 L 09/28/24 06:08 09/28/24 06:00 73 28 H 198/50 H 92 L 09/28/24 05:00 09/28/24 04:00 75 09/28/24 04:00 98 F 76 22 168/67 H 93 L 09/28/24 03:00 09/28/24 02:54 72 09/28/24 02:54 73 09/28/24 02:00 09/28/24 02:00 78 24 166/86 H 92 L 09/28/24 00:49 09/28/24 00:00 78 20 123/73 90 L 09/28/24 00:00 82 09/27/24 23:00 09/27/24 22:52 77 09/27/24 22:52 70 09/27/24 22:00 74 31 H 179/69 H 91 L 09/27/24 20:07 09/27/24 20:00 98.3 F 73 25 H 184/84 H 92 L 09/27/24 20:00 09/27/24 19:59 70 09/27/24 18:50 09/27/24 18:25 84 09/27/24 18:25 84 21 09/27/24 18:25 73 09/27/24 18:25 92 L 09/27/24 18:02 75 24 116/68 91 L 09/27/24 17:31 85 24 168/53 H 91 L 09/27/24 17:00 09/27/24 16:01 98.6 F 71 22 183/59 H 91 L 09/27/24 16:00 70 09/27/24 15:00 83 24 159/74 H 90 L 09/27/24 15:00 09/27/24 14:02 90 09/27/24 14:02 90 09/27/24 14:02 90 L 09/27/24 14:01 83 22 93/67 L 90 L 09/27/24 14:00 91 L 09/27/24 13:01 60 24 135/52 L 94 L 09/27/24 13:00 09/27/24 12:04 70 09/27/24 12:00 97.9 F 69 24 148/71 H 93 L 09/27/24 11:13 69 28 H 153/60 H 92 L 09/27/24 11:00 09/27/24 10:40 65 09/27/24 10:40 68 09/27/24 10:40 91 L 09/27/24 10:40 65 16 09/27/24 10:00 65 20 191/73 H 91 L 09/27/24 10:00 75 22 172/72 H 90 L 09/27/24 09:31 73 22 178/72 H 91 L 09/27/24 09:03 91 L 09/27/24 09:01 77 20 194/85 H 91 L 09/27/24 09:00 73 24 178/72 H 92 L 09/27/24 09:00 O2 Del Method O2 Flow Rate FiO2 09/28/24 07:00 Vapotherm 30 65 09/28/24 06:28 09/28/24 06:28 09/28/24 06:28 Vapotherm 35 65 09/28/24 06:08 Vapotherm 35 09/28/24 06:00 Vapotherm 35 65 09/28/24 05:00 Vapotherm 35 09/28/24 04:00 09/28/24 04:00 Vapotherm 35 65 09/28/24 03:00 Vapotherm 35 09/28/24 02:54 09/28/24 02:54 09/28/24 02:00 Vapotherm 35 65 09/28/24 02:00 Vapotherm 35 65 09/28/24 00:49 Vapotherm 35 09/28/24 00:00 Vapotherm 35 65 09/28/24 00:00 09/27/24 23:00 Vapotherm 95 09/27/24 22:52 09/27/24 22:52 09/27/24 22:00 Vapotherm 35 65 09/27/24 20:07 Vapotherm 35 09/27/24 20:00 Vapotherm 35 65 09/27/24 20:00 Vapotherm 35 65 09/27/24 19:59 09/27/24 18:50 Vapotherm 35 09/27/24 18:25 09/27/24 18:25 09/27/24 18:25 09/27/24 18:25 Vapotherm 35 65 09/27/24 18:02 Vapotherm 35 65 09/27/24 17:31 Vapotherm 35 65 09/27/24 17:00 Vapotherm 35 09/27/24 16:01 Vapotherm 35 65 09/27/24 16:00 09/27/24 15:00 Vapotherm 35 65 09/27/24 15:00 Vapotherm 35 09/27/24 14:02 09/27/24 14:02 09/27/24 14:02 Vapotherm 35 65 09/27/24 14:01 Vapotherm 35 65 09/27/24 14:00 Vapotherm 35 65 09/27/24 13:01 Vapotherm 35 65 09/27/24 13:00 Vapotherm 35 09/27/24 12:04 09/27/24 12:00 Vapotherm 35 65 09/27/24 11:13 Vapotherm 35 65 09/27/24 11:00 Vapotherm 35 09/27/24 10:40 09/27/24 10:40 09/27/24 10:40 Vapotherm 35 65 09/27/24 10:40 09/27/24 10:00 Vapotherm 35 65 09/27/24 10:00 Vapotherm 35 65 09/27/24 09:31 Vapotherm 35 65 09/27/24 09:03 Vapotherm 35 65 09/27/24 09:01 Vapotherm 35 65 09/27/24 09:00 Vapotherm 35 65 09/27/24 09:00 Vapotherm 35 Intake and Output 09/27/24 09/28/24 09/28/24 23:59 07:59 15:59 Intake Total 532 / 1086 Output Total 50 / 50 Balance 532 / 611 -50 / -50 Intake: Intake, Oral Amount 282 / 636 Intake, Total IV Amount 250 / 450 Vancomycin HCl 750 mg In 0.9 % 250 / 250 Sodium Chloride 250 ml @ 125 mls/hr IV Q24H [facility] Rx#:[id number] Output: Output, Urine Amount 50 / 50 Other: Number of Unmeasured Voids 150 1 Weight 54.703 kg Patient Weight 09/28/24 23:59 Weight 54.703 kg Laboratory Results - last 24 hr 09/27/24 11:10: POC Glucose 140 H I & O for Labs for Last 24 Hours: Intake & Output 09/25/24 09/26/24 09/27/24 09/28/24 23:59 23:59 23:59 23:59 Intake Total 1670 / 1770 1005 / 1105 1086 / 1086 Output Total 1850 / 1850 875 / 900 425 / 475 50 / 50 Balance -180 / -80 130 / 205 661 / 611 -50 / -50 Weight 53.524 kg 53.325 kg 54.613 kg 54.703 kg Microbiology Reports for the Last 24 Hours: Microbiology 09/25/24 11:25 Sputum - Expectorated Sputum Gram Stain - Final 09/25/24 11:25 Sputum - Expectorated Sputum Sputum Culture - Preliminary Constitutional: Present no acute distress, thin, chronically ill appearing and cooperative Head: Present atraumatic and normocephalic ENT: Present normal exam Respiratory: Present accessory muscle use, prolonged expiratory phase, rhonchi and crackles (Right middle lobe mid axillary); Absent wheezes Comment:: Rhonchorous cough today, productive Cardiac: Present Reg Rate and Rhythm GI: Present soft and normal bowel sounds; Absent distention or tenderness Extremities: Present normal inspection and full ROM; Absent tenderness Skin: Present intact; Absent erythema Comment:: Tiny area of irritation on bottom. Present on admission. Neuro: Present Grossly Intact, alert and awake Comment:: Residual right-sided deficits from previous CVA. At baseline mentation. Alert and oriented to person and place Assessment and Plan *Assessment and plan (1) Severe sepsis: Status: Acute Category: Medical Code(s): A41.9 - Sepsis, unspecified organism; R65.20 - Severe sepsis without septic shock (2) Multifocal pneumonia: Status: Acute Category: Medical Code(s): J18.9 - Pneumonia, unspecified organism (3) Acute hypoxic respiratory failure: Status: Acute Category: Medical Code(s): J96.01 - Acute respiratory failure with hypoxia (4) Hypertension: Status: Acute Qualifiers: Hypertension type: primary hypertension Qualified Code(s): I10 - Essential (primary) hypertension Category: Medical Code(s): I10 - Essential (primary) hypertension (5) Diabetes mellitus: Status: Acute Qualifiers: Diabetes mellitus complication status: without complication Diabetes mellitus fpc insulin use: without exterminator termite use Diabetes mellitus type: type 2 Qualified Code(s): E11.9 - Type 2 diabetes mellitus without complications Category: Medical Code(s): E11.9 - Type 2 diabetes mellitus without complications (6) CAD (coronary artery disease): Status: Acute Qualifiers: Associated angina: without angina Coronary Disease-Associated Artery/Lesion type: [place] artery [place] vs. transplanted heart: [place] heart Qualified Code(s): I25.10 - Atherosclerotic heart disease of [place] coronary artery without angina pectoris Category: Medical Code(s): I25.10 - Atherosclerotic heart disease of [place] coronary artery without angina pectoris (7) Diastolic CHF: Status: Acute Category: Medical Code(s): I50.30 - Unspecified diastolic (congestive) heart failure (8) Diabetes type 2, controlled: Status: Acute Category: Medical Code(s): E11.9 - Type 2 diabetes mellitus without complications (9) Vascular dementia: Status: Acute Category: Medical Code(s): F01.50 - Vascular dementia, unspecified severity, without behavioral disturbance, psychotic disturbance, mood disturbance, and anxiety (10) History of CVA (cerebrovascular accident): Status: Chronic Category: Medical Code(s): Z86.73 - Personal history of transient ischemic attack (TIA), and cerebral infarction without residual deficits Plan 73-year-old female with history of CHF, CABG, CAD, CVA, diabetes, dementia. Presented with acute worsening shortness of breath. Workup in the ER concerning for CHF exacerbation, evere sepsis, multifocal pneumonia. Discussed case with ER physician, request admission for further treatment of respiratory failure. I agreed to admit for further management. Meeting severe sepsis criteria with white count of 19, tachycardia with heart rate of 93, infection on CT, multiorgan dysfunction. Fluid bolus held on admission due to component of CHF with elevated BNP suggestive of volume overload. Has shown gradual improvement over the past few days. Continues to require elevated level of care, de- escalate to stepdown however. Weaning Vapotherm. Continues to require inpatient management. Prognosis remains guarded but condition does appear to be improving. Tolerating broad-spectrum antibiotics with improved clinical state. Problems addressed as follows: Acute on chronic hypoxemic respiratory failure CHF exacerbation Pneumonia - Continue cefepime and vancomycin IV, monitor for toxicity of kidney function - White count stable at 11.6, hemoglobin 10.3 - Electrolytes better with potassium of 4, BUN 19, creatinine 0.9. - Blood cultures negative at 48 hours. CRE screen negative. Sputum culture with no results at this - Continue Lasix 40 mg IV once daily. Strict I's and O's - Repeat CBC, CMP, magnesium ordered for the morning. - continue incentive spirometry 3 times a day. Wean high flow nasal cannula as tolerated for goal sats above 90%. Continue chest percussion twice daily along with suction. Diabetes: - A1c 6.1. Glucose elevated at 300 on morning labs. In light of history of diabetes, and elevated glucose today, will resume sliding scale insulin low- intensity - Continue home metformin at 1000 mg twice daily Hypertension: SVT - Heart rate doing better. Continue metoprolol succinate 100 mg twice daily. Resume amlodipine 5 mg daily and lisinopril 40 mg daily for hypertension along with isosorbide 30 mg daily GERD: Continue pantoprazole 40 mg daily p.o. History of CVA: continue Lipitor 80 mg daily for hyperlipidemia, continue aspirin 325 mg daily Depression: Resume Lexapro 10 mg daily Vascular dementia: Holding donepezil and memantine due to somnolence. DNR Lovenox 40 mg subcu daily Cardiac diet
[2024-09-28 09:34] LABS: Hematocrit 31.9 % (37.0-47.0); Hemoglobin 10.3 g/dL (12.2-16.2); Immature Granulocytes % 1.2 %; Mean Corpuscular HGB Conc 32.3 g/dL (31.8-35.4); Mean Corpuscular Hemoglobin 28.5 pg (27.0-31.2); Mean Corpuscular Volume 88.1 fl (81-99); Nucleated Red Blood Cells % 0 %; Platelet Count 337 K/mm3 (142-424); Red Blood Count 3.62 M/mm3 (4.20-5.40); Red Cell Distribution Width-SD 54.3 fL; White Blood Count 11.6 K/mm3 (4.8-10.8)
[2024-09-28 09:40] LABS: Alanine Aminotransferase 23 U/L (12-78); Albumin Level 3.4 g/dl (3.5-5.0); Albumin/Globulin Ratio 1.1 (1.1-1.8); Alkaline Phosphatase 128 U/L (38-126); Anion Gap 14.0 mEq/L (5-15); Aspartate Amino Transferase 37 U/L (14-36); Bilirubin,Total 0.7 mg/dl (0.2-1.3); Blood Urea Nitrogen 19 mg/dl (7-17); Calcium 9.0 mg/dl (8.4-10.2); Carbon Dioxide 28 mmol/L (22.0-30.0); Chloride 98 mmol/L (98-107); Creatinine Clearance Estimated 43 mL/min (50-200); Creatinine,Serum 0.90 mg/dl (0.52-1.04); Estimated Glomerular Filt Rate 61 ml/min (>60); GFR (African American) 74 ML/MIN (>60); Globulin 3.1 g/dL (1.3-3.2); Glucose 302 mg/dl (74-100); Magnesium 1.8 mg/dl (1.6-2.3); Potassium 4.0 mmoL/L (3.5-5.1); Sodium 136 mmol/L (136-145); Total Protein,Serum 6.5 g/dl (6.3-8.2)
[2024-09-28] MEDS: CEFEPIME HCL 2 GM in 0.9 % SODIUM CHLORIDE 100 ML IV ×2 (09:44→21:45)
[2024-09-28] MEDS: VANCOMYCIN HCL 750 MG in 0.9 % SODIUM CHLORIDE 250 ML 125 MG IV (11:50)
[2024-09-28] MEDS: ISOSORBIDE MONO 30MG TAB.ER.24H 30 MG PO (15:20)
[2024-09-28] MEDS: humaLOG 100 UNITS/ML 10ML VIAL (SSI) SUBCUT (16:37)
[2024-09-28] MEDS: ATORVASTATIN 40MG TABLET 80 MG PO (20:16)
[2024-09-28] MEDS: PANTOPRAZOLE 40MG TABLET 40 MG PO (20:16)
--- NOTE | 2024-09-28 22:32 | PC.NURSE ---
Patient had 2 episodes of svt, Dr. Laguerre notified. New order to give Metoprolol 5mg IV. Notified of already given PO Metoprolol prior to SVT and patient is back into normal sinus rhythm. Ok to not give IV metoprolol at this time. Will continue to monitor.
[2024-09-29] VITALS (48 sets, daily range): BP systolic 110–192; BP diastolic 53–103; PULSE 59–89; RESP 13–33; TEMP 36.6–36.9; O2SAT 86–94; BMI 23.1
[2024-09-29] MEDS: LEVALBUTEROL 1.25MG/3ML NEB 1.25 MG IH ×4 (06:16→23:55)
[2024-09-29] MEDS: AMLODIPINE 5MG TABLET 5 MG PO (08:07)
[2024-09-29] MEDS: METOPROLOL SUCCINATE XL 100MG TABLET 100 MG PO ×2 (08:07→21:16)
[2024-09-29] MEDS: MEMANTINE 10MG TABLET 10 MG PO ×2 (08:07→21:16)
[2024-09-29] MEDS: ASPIRIN 325MG TABLET 325 MG PO (08:07)
[2024-09-29] MEDS: LISINOPRIL 20MG TABLET 40 MG PO (08:07)
[2024-09-29] MEDS: FUROSEMIDE 40MG/4ML VIAL 40 MG IV (08:07)
[2024-09-29] MEDS: ESCITALOPRAM 10MG TABLET 10 MG PO (08:08)
[2024-09-29] MEDS: ISOSORBIDE MONO 30MG TAB.ER.24H 30 MG PO (08:09)
--- NOTE | 2024-09-29 08:10 | PC.NURSE ---
Primary RN offered patient a bath at this time. Patient refused. Continuation of care plan.
[2024-09-29 08:37] LABS: Alanine Aminotransferase 23 U/L (12-78); Albumin Level 3.4 g/dl (3.5-5.0); Albumin/Globulin Ratio 1.1 (1.1-1.8); Alkaline Phosphatase 116 U/L (38-126); Anion Gap 16.6 mEq/L (5-15); Aspartate Amino Transferase 31 U/L (14-36); Bilirubin,Total 0.6 mg/dl (0.2-1.3); Blood Urea Nitrogen 19 mg/dl (7-17); Calcium 9.2 mg/dl (8.4-10.2); Carbon Dioxide 28 mmol/L (22.0-30.0); Chloride 100 mmol/L (98-107); Creatinine Clearance Estimated 42 mL/min (50-200); Creatinine,Serum 0.70 mg/dl (0.52-1.04); Estimated Glomerular Filt Rate 82 ml/min (>60); GFR (African American) 99 ML/MIN (>60); Globulin 3.2 g/dL (1.3-3.2); Glucose 181 mg/dl (74-100); Magnesium 1.7 mg/dl (1.6-2.3); Potassium 3.6 mmoL/L (3.5-5.1); Sodium 141 mmol/L (136-145); Total Protein,Serum 6.6 g/dl (6.3-8.2)
[2024-09-29] MEDS: CEFEPIME HCL 2 GM in 0.9 % SODIUM CHLORIDE 100 ML IV ×2 (09:26→21:16)
[2024-09-29 10:15] LABS: Hematocrit 31.8 % (37.0-47.0); Hemoglobin 10.1 g/dL (12.2-16.2); Immature Granulocytes % 2.1 %; Mean Corpuscular HGB Conc 31.8 g/dL (31.8-35.4); Mean Corpuscular Hemoglobin 27.7 pg (27.0-31.2); Mean Corpuscular Volume 87.1 fl (81-99); Nucleated Red Blood Cells % 0 %; Platelet Count 350 K/mm3 (142-424); Red Blood Count 3.65 M/mm3 (4.20-5.40); Red Cell Distribution Width-SD 52.3 fL; White Blood Count 12.6 K/mm3 (4.8-10.8)
--- NOTE | 2024-09-29 10:22 | EXP.ACUTE.PN ---
Subjective *Date: 09/29/24 *Time: 13:31 Interval history: Awakens on exam. Answers questions appropriately. Currently on 4 L. Afebrile. No nausea or vomiting. Appears quite fatigued and weak. Daughter at bedside. Medical Exam Vital signs and Labs for Last 24 Hours: Vital Signs Temp Pulse Resp BP Pulse Ox O2 Del Method O2 Flow Rate 09/29/24 10:01 70 26 H 128/57 L 90 L Vapotherm 09/29/24 09:39 91 L Vapotherm 09/29/24 09:10 93 L Vapotherm 09/29/24 09:00 Vapotherm 09/29/24 08:00 82 09/29/24 08:00 98.1 F 74 25 H 165/60 H 93 L Vapotherm 09/29/24 07:51 94 L Vapotherm 09/29/24 06:47 Vapotherm 09/29/24 06:16 71 09/29/24 06:16 74 09/29/24 06:16 91 L Vapotherm 09/29/24 06:01 69 26 H 184/71 H 91 L Vapotherm 09/29/24 04:47 Vapotherm 09/29/24 04:00 75 20 151/58 H 90 L Vapotherm 09/29/24 04:00 74 09/29/24 03:00 Vapotherm 09/29/24 02:00 Vapotherm 09/29/24 02:00 64 24 128/53 L 92 L Vapotherm 09/29/24 00:52 Vapotherm 09/29/24 00:01 72 30 H 92 L Vapotherm 09/29/24 00:01 156/69 H 09/29/24 00:00 82 09/29/24 00:00 97.8 F 82 20 92 L Trach Collar/Tube 09/28/24 23:45 64 22 90 L Trach Collar/Tube 09/28/24 23:35 88 09/28/24 23:34 87 09/28/24 23:33 Vapotherm 09/28/24 23:30 61 30 H 91 L Trach Collar/Tube 09/28/24 23:15 66 27 H 91 L Trach Collar/Tube 09/28/24 23:00 68 31 H 149/76 H 91 L Vapotherm 09/28/24 22:40 Vapotherm 09/28/24 22:00 66 28 H 128/52 L 92 L Vapotherm 09/28/24 21:00 Vapotherm 09/28/24 20:00 90 L Vapotherm 09/28/24 20:00 98.8 F 78 19 166/92 H 93 L Vapotherm 09/28/24 20:00 85 09/28/24 18:59 Vapotherm 09/28/24 18:15 80 09/28/24 18:14 82 09/28/24 18:00 78 19 173/70 H 92 L Vapotherm 09/28/24 17:00 80 15 160/83 H 91 L Vapotherm 09/28/24 17:00 Vapotherm 09/28/24 16:01 98.3 F 74 164/59 H 92 L Vapotherm 09/28/24 16:00 78 25 H 92 L 09/28/24 16:00 70 09/28/24 15:01 83 17 156/65 H 93 L Vapotherm 09/28/24 15:00 Vapotherm 09/28/24 14:05 70 09/28/24 14:05 70 09/28/24 14:05 90 L Vapotherm 09/28/24 14:00 71 22 171/67 H 90 L Vapotherm 09/28/24 14:00 91 L Vapotherm 09/28/24 13:01 90 26 H 158/57 H 90 L Vapotherm 09/28/24 13:00 Vapotherm 09/28/24 12:00 81 09/28/24 12:00 98.0 F 73 18 165/77 H 93 L Vapotherm 09/28/24 11:00 Vapotherm 30 09/28/24 10:55 74 09/28/24 10:55 71 16 09/28/24 10:55 74 09/28/24 10:55 90 L Vapotherm 30 FiO2 09/29/24 10:01 40 09/29/24 09:39 40 09/29/24 09:10 45 09/29/24 09:00 09/29/24 08:00 09/29/24 08:00 50 09/29/24 07:51 50 09/29/24 06:47 09/29/24 06:16 09/29/24 06:16 09/29/24 06:16 50 09/29/24 06:01 50 09/29/24 04:47 09/29/24 04:00 50 09/29/24 04:00 09/29/24 03:00 09/29/24 02:00 50 09/29/24 02:00 50 09/29/24 00:52 09/29/24 00:01 50 09/29/24 00:01 09/29/24 00:00 09/29/24 00:00 50 09/28/24 23:45 50 09/28/24 23:35 09/28/24 23:34 09/28/24 23:33 50 09/28/24 23:30 50 09/28/24 23:15 45 09/28/24 23:00 45 09/28/24 22:40 09/28/24 22:00 45 09/28/24 21:00 09/28/24 20:00 45 09/28/24 20:00 45 09/28/24 20:00 09/28/24 18:59 09/28/24 18:15 09/28/24 18:14 09/28/24 18:00 45 09/28/24 17:00 45 09/28/24 17:00 09/28/24 16:01 50 09/28/24 16:00 09/28/24 16:00 09/28/24 15:01 50 09/28/24 15:00 09/28/24 14:05 09/28/24 14:05 09/28/24 14:05 60 09/28/24 14:00 09/28/24 14:00 60 09/28/24 13:01 09/28/24 13:00 09/28/24 12:00 09/28/24 12:00 60 09/28/24 11:00 09/28/24 10:55 09/28/24 10:55 09/28/24 10:55 09/28/24 10:55 60 Intake and Output 09/28/24 09/29/24 09/29/24 23:59 07:59 15:59 Intake Total 590 / 1190 80 / 410 330 / 410 Output Total 500 / 850 0 / 0 Balance 90 / 340 80 / 410 330 / 410 Intake: Intake, Oral Amount 240 / 720 60 / 300 240 / 300 Intake, Total IV Amount 350 / 470 20 / 110 90 / 110 Cefepime HCl 2 gm In 0.9 % 100 / 220 20 / 110 90 / 110 Sodium Chloride 100 ml @ 200 mls/hr IV Q12H [facility] Rx#:[id number] Vancomycin HCl 750 mg In 0.9 % 250 / 250 Sodium Chloride 250 ml @ 125 mls/hr IV Q24H [facility] Rx#:[id number] Output: Output, Urine Amount 500 / 850 0 / 0 Other: Number of Unmeasured Voids 0 1 Weight 53.479 kg Patient Weight 09/29/24 23:59 Weight 53.479 kg Laboratory Results - last 24 hr 09/29/24 07:46: WBC 12.6 H, RBC 3.65 L, Hgb 10.1 L, Hct 31.8 L, MCV 87.1, MCH 27.7, MCHC 31.8, RDW 16.4, Plt Count 350, MPV 11.6 H, Neut % (Auto) 71.2, Lymph % (Auto) 15.8, [place] % (Auto) 9.3, Eos % (Auto) 1.1, Baso % (Auto) 0.5, Neut # (Auto) 9.0 H, Lymph # (Auto) 2.0, [place] # (Auto) 1.2 H, Eos # (Auto) 0.1, Baso # (Auto) 0.1, Sodium 141, Potassium 3.6, Chloride 100, Carbon Dioxide 28, Anion Gap 16.6 H, BUN 19 H, Creatinine 0.70 D, Estimated Creat Clear 42, Estimated GFR 82, Est GFR ( Amer) 99 D, Glucose 181 H D, Calcium 9.2, Magnesium 1.7, Total Bilirubin 0.6, AST 31, ALT 23, Alkaline Phosphatase 116, Total Protein 6.6, Albumin 3.4 L, Globulin 3.2, Albumin/Globulin Ratio 1.1 I & O for Labs for Last 24 Hours: Intake & Output 09/26/24 09/27/24 09/28/24 09/29/24 23:59 23:59 23:59 23:59 Intake Total 1005 / 1105 1086 / 1086 1170 / 1190 410 / 410 Output Total 875 / 900 425 / 475 850 / 850 0 / 0 Balance 130 / 205 661 / 611 320 / 340 410 / 410 Weight 53.325 kg 54.613 kg 54.703 kg 53.479 kg Microbiology Reports for the Last 24 Hours: Microbiology 09/24/24 08:28 Blood Blood Culture - Final NO GROWTH AFTER 5 DAYS 09/24/24 08:27 Blood Blood Culture - Final NO GROWTH AFTER 5 DAYS 09/25/24 11:25 Sputum - Expectorated Sputum Gram Stain - Final 09/25/24 11:25 Sputum - Expectorated Sputum Sputum Culture - Final Constitutional: Present mild distress, thin, chronically ill appearing and cooperative Head: Present atraumatic and normocephalic ENT: Present normal exam Comment:: Nystagmus with eyes, baseline Respiratory: Present accessory muscle use, prolonged expiratory phase, distant breath sounds and diminished air movement; Absent rhonchi, wheezes or crackles Comment:: Egophony in left lung field. Absent breath sounds GI: Present soft and normal bowel sounds; Absent distention or tenderness Extremities: Present normal inspection, full ROM and edema (2+ to mid velázquez); Absent tenderness Skin: Present intact; Absent erythema Comment:: Tiny area of irritation on bottom. Present on admission. Neuro: Present Grossly Intact, alert and awake Comment:: Residual right-sided deficits from previous CVA. At baseline mentation. Alert and oriented to person and place Assessment and Plan *Assessment and plan (1) Severe sepsis: Status: Acute Category: Medical Code(s): A41.9 - Sepsis, unspecified organism; R65.20 - Severe sepsis without septic shock (2) Multifocal pneumonia: Status: Acute Category: Medical Code(s): J18.9 - Pneumonia, unspecified organism (3) Acute hypoxic respiratory failure: Status: Acute Category: Medical Code(s): J96.01 - Acute respiratory failure with hypoxia (4) Hypertension: Status: Acute Qualifiers: Hypertension type: primary hypertension Qualified Code(s): I10 - Essential (primary) hypertension Category: Medical Code(s): I10 - Essential (primary) hypertension (5) Diabetes mellitus: Status: Acute Qualifiers: Diabetes mellitus complication status: without complication 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 transplanted heart: [place] heart Qualified Code(s): I25.10 - Atherosclerotic heart disease of [place] coronary artery without angina pectoris Category: Medical Code(s): I25.10 - Atherosclerotic heart disease of [place] coronary artery without angina pectoris (7) Diastolic CHF: Status: Acute Category: Medical Code(s): I50.30 - Unspecified diastolic (congestive) heart failure (8) Diabetes type 2, controlled: Status: Acute Category: Medical Code(s): E11.9 - Type 2 diabetes mellitus without complications (9) Vascular dementia: Status: Acute Category: Medical Code(s): F01.50 - Vascular dementia, unspecified severity, without behavioral disturbance, psychotic disturbance, mood disturbance, and anxiety (10) History of CVA (cerebrovascular accident): Status: Chronic Category: Medical Code(s): Z86.73 - Personal history of transient ischemic attack (TIA), and cerebral infarction without residual deficits (11) Pleural effusion, left: Status: Acute Category: Medical Code(s): J90 - Pleural effusion, not elsewhere classified Plan 73-year-old female with history of CHF, CABG, CAD, CVA, diabetes, dementia. Presented with acute worsening shortness of breath. Workup in the ER concerning for CHF exacerbation, evere sepsis, multifocal pneumonia. Discussed case with ER physician, request admission for further treatment of respiratory failure. I agreed to admit for further management. Meeting severe sepsis criteria with white count of 19, tachycardia with heart rate of 93, infection on CT, multiorgan dysfunction. Fluid bolus held on admission due to component of CHF with elevated BNP suggestive of volume overload. Has shown gradual improvement over the past few days. Continues to require elevated level of care, de-escalate to stepdown however. Weaning Vapotherm. Continues to require inpatient management. Prognosis remains guarded but condition does appear to be improving. Tolerating broad-spectrum antibiotics with improved clinical state. Problems addressed as follows: Acute on chronic hypoxemic respiratory failure CHF exacerbation Pneumonia - Continue cefepime and vancomycin IV, monitor for toxicity of kidney function - White count stable at 11.6, hemoglobin 10.3 - Electrolytes better with potassium of 4, BUN 19, creatinine 0.9. - Blood cultures negative at 48 hours. CRE screen negative. Sputum culture with no results at this - Continue Lasix 40 mg IV once daily. Strict I's and O's - Repeat CBC, CMP, magnesium ordered for the morning. - continue incentive spirometry 3 times a day. Wean high flow nasal cannula as tolerated for goal sats above 90%. Continue chest percussion twice daily along with suction. Diabetes: - A1c 6.1. Glucose elevated at 300 on morning labs. In light of history of diabetes, and elevated glucose today, will resume sliding scale insulin low-intensity - Continue home metformin at 1000 mg twice daily Hypertension: SVT - Heart rate doing better. Continue metoprolol succinate 100 mg twice daily. Resume amlodipine 5 mg daily and lisinopril 40 mg daily for hypertension along with isosorbide 30 mg daily GERD: Continue pantoprazole 40 mg daily p.o. History of CVA: continue Lipitor 80 mg daily for hyperlipidemia, continue aspirin 325 mg daily Depression: Resume Lexapro 10 mg daily Vascular dementia: Holding donepezil and memantine due to somnolence. DNR Lovenox 40 mg subcu daily Cardiac diet
[2024-09-29 12:17] LABS: Vancomycin,Trough 13.5 ug/mL (5.0-10.0)
[2024-09-29] MEDS: VANCOMYCIN HCL 750 MG in 0.9 % SODIUM CHLORIDE 250 ML 125 MG IV (12:46)
--- NOTE | 2024-09-29 12:53 | EXP.PHA.CONS ---
Pharmacy Consult Date: 09/29/24 Time: 12:53 Referring provider: DR. OTLENTINO Reason for Consult:: VANCOMYCIN TROUGH LEVEL Allergies Allergy/AdvReac Type Severity Reaction Status Date / Time Iodinated Contrast Media Allergy Mild Unknown Verified 09/24/24 12:10 allergy reaction naproxen Allergy Mild Unknown Verified 09/24/24 12:10 allergy reaction Home Medications ?Medication ?Instructions ?Recorded ?Confirmed ?Type atorvastatin 80 mg tablet 80 mg PO HS 04/05/17 09/24/24 History aspirin 325 mg tablet 325 mg PO DAILY 09/14/17 09/24/24 History isosorbide mononitrate 30 mg 30 mg PO DAILY 03/26/18 09/24/24 History tablet,extended release 24 hr amlodipine 5 mg tablet 5 mg PO DAILY 05/20/19 09/24/24 History cholecalciferol (vitamin D3) 25 25 mcg PO HS 03/13/20 09/24/24 History mcg (1,000 unit) capsule memantine 10 mg tablet 10 mg PO BID 09/18/20 09/24/24 History donepezil 5 mg tablet 5 mg PO DAILY 05/21/21 09/24/24 History multivitamin (Daily Multi-Vitamin 1 tab PO DAILY 12/03/21 09/24/24 History tablet) escitalopram oxalate 10 mg tablet 10 mg PO DAILY 06/17/22 09/24/24 History lisinopril 40 mg tablet 40 mg PO BID 01/21/23 09/24/24 History metformin 1,000 mg tablet 1,000 mg PO BID 01/22/23 09/24/24 History metoprolol succinate 100 mg 100 mg PO DAILY 01/22/23 09/24/24 History tablet,extended release 24 hr pantoprazole 40 mg tablet,delayed 40 mg PO DAILY 02/21/24 09/24/24 History release gabapentin 100 mg capsule 100 mg PO BID 03/11/24 09/24/24 History lorazepam 0.5 mg tablet 0.5 mg PO HS 03/11/24 09/24/24 History furosemide 20 mg tablet 20 mg PO DAILY 30 days #0 tabs 03/13/24 09/24/24 Rx ferrous sulfate 325 mg (65 mg 325 mg PO DAILY 06/27/24 09/24/24 History iron) tablet (FeroSul) magnesium oxide 400 mg (241.3 mg 400 mg PO BID 06/27/24 09/24/24 History magnesium) tablet New Prescriptions to Start Prescriptions: Height: 1.52 m Weight: 53.479 kg Laboratory Results:: Laboratory Results - last 24 hr 09/29/24 07:46: WBC 12.6 H, RBC 3.65 L, Hgb 10.1 L, Hct 31.8 L, MCV 87.1, MCH 27.7, MCHC 31.8, RDW 16.4, Plt Count 350, MPV 11.6 H, Neut % (Auto) 71.2, Lymph % (Auto) 15.8, [place] % (Auto) 9.3, Eos % (Auto) 1.1, Baso % (Auto) 0.5, Neut # (Auto) 9.0 H, Lymph # (Auto) 2.0, [place] # (Auto) 1.2 H, Eos # (Auto) 0.1, Baso # (Auto) 0.1, Sodium 141, Potassium 3.6, Chloride 100, Carbon Dioxide 28, Anion Gap 16.6 H, BUN 19 H, Creatinine 0.70 D, Estimated Creat Clear 42, Estimated GFR 82, Est GFR ( Amer) 99 D, Glucose 181 H D, Calcium 9.2, Magnesium 1.7, Total Bilirubin 0.6, AST 31, ALT 23, Alkaline Phosphatase 116, Total Protein 6.6, Albumin 3.4 L, Globulin 3.2, Albumin/Globulin Ratio 1.1 09/29/24 10:50: Vancomycin Trough 13.5 H Medical History: Medical History (Updated 09/24/24 @ 10:01 by Falguni Torres MD) Pericardial effusion Diabetes mellitus Hyperlipidemia Hypertensive heart disease Hypertension CAD (coronary artery disease) Cataract SVT (supraventricular tachycardia) COPD exacerbation COPD (chronic obstructive pulmonary disease) Respiratory failure with hypoxia History of CVA (cerebrovascular accident) Vomiting Weight loss Lumbar stenosis Thoracic compression fracture Cerebral atrophy Sepsis UTI (urinary tract infection) CAP (community acquired pneumonia) Carotid artery stenosis Tobacco dependence syndrome Coronary arteriosclerosis Assessment and Plan Assessment and plan all Dx Assessment and Plan for all problems:: BASED ON PATIENT FACTORS AND VANCOMYCIN TROUGH LEVEL OF 13.5, RECOMMEND CONTINUING CURRENT VANCOMYCIN DOSE OF 750MG EVERY 24 HOURS. PHARMACY WILL CONTINUE TO MONITOR AND WILL ADJUST DOSE APPROPRIATE. -JACQUES MILLER, JAY
--- NOTE | 2024-09-29 13:00 | PC.NURSE ---
Primary RN offered to turn patient or if patient would like a bath. Patient refused. Continuation of care plan.
--- NOTE | 2024-09-29 13:35 | P.PN_ITS ---
Subjective *Date: 09/29/24 *Time: 13:35 Interval history: Afebrile. No SVT events overnight. Doing well this morning. No nausea or vomiting. Requesting to go home. He had daughter at bedside. Vapotherm weaned to 20 L and 40% on rounds Medical Exam Vital signs and Labs for Last 24 Hours: Vital Signs Temp Pulse Resp BP Pulse Ox O2 Del Method O2 Flow Rate 09/29/24 13:22 89 L Nasal Cannula 4 09/29/24 13:10 79 09/29/24 13:10 73 09/29/24 13:00 Vapotherm 09/29/24 12:01 79 33 H 92 L 09/29/24 12:01 98.5 F 74 13 165/63 H 94 L Vapotherm 09/29/24 12:00 60 09/29/24 11:00 Room Air 09/29/24 10:01 70 26 H 128/57 L 90 L Vapotherm 09/29/24 09:39 91 L Vapotherm 09/29/24 09:10 93 L Vapotherm 09/29/24 09:00 Vapotherm 09/29/24 08:00 82 09/29/24 08:00 98.1 F 74 25 H 165/60 H 93 L Vapotherm 09/29/24 07:51 94 L Vapotherm 09/29/24 06:47 Vapotherm 09/29/24 06:16 71 09/29/24 06:16 74 09/29/24 06:16 91 L Vapotherm 09/29/24 06:01 69 26 H 184/71 H 91 L Vapotherm 09/29/24 04:47 Vapotherm 09/29/24 04:00 75 20 151/58 H 90 L Vapotherm 09/29/24 04:00 74 09/29/24 03:00 Vapotherm 09/29/24 02:00 Vapotherm 09/29/24 02:00 64 24 128/53 L 92 L Vapotherm 09/29/24 00:52 Vapotherm 09/29/24 00:01 72 30 H 92 L Vapotherm 09/29/24 00:01 156/69 H 09/29/24 00:00 82 09/29/24 00:00 97.8 F 82 20 92 L Trach Collar/Tube 09/28/24 23:45 64 22 90 L Trach Collar/Tube 09/28/24 23:35 88 09/28/24 23:34 87 09/28/24 23:33 Vapotherm 09/28/24 23:30 61 30 H 91 L Trach Collar/Tube 09/28/24 23:15 66 27 H 91 L Trach Collar/Tube 09/28/24 23:00 68 31 H 149/76 H 91 L Vapotherm 09/28/24 22:40 Vapotherm 09/28/24 22:00 66 28 H 128/52 L 92 L Vapotherm 09/28/24 21:00 Vapotherm 09/28/24 20:00 90 L Vapotherm 09/28/24 20:00 98.8 F 78 19 166/92 H 93 L Vapotherm 09/28/24 20:00 85 09/28/24 18:59 Vapotherm 09/28/24 18:15 80 09/28/24 18:14 82 09/28/24 18:00 78 19 173/70 H 92 L Vapotherm 09/28/24 17:00 80 15 160/83 H 91 L Vapotherm 09/28/24 17:00 Vapotherm 09/28/24 16:01 98.3 F 74 164/59 H 92 L Vapotherm 09/28/24 16:00 78 25 H 92 L 09/28/24 16:00 70 09/28/24 15:01 83 17 156/65 H 93 L Vapotherm 09/28/24 15:00 Vapotherm 09/28/24 14:05 70 09/28/24 14:05 70 09/28/24 14:05 90 L Vapotherm 09/28/24 14:00 71 22 171/67 H 90 L Vapotherm 09/28/24 14:00 91 L Vapotherm 30 FiO2 09/29/24 13:22 09/29/24 13:10 09/29/24 13:10 09/29/24 13:00 09/29/24 12:01 09/29/24 12:01 40 09/29/24 12:00 09/29/24 11:00 09/29/24 10:01 40 09/29/24 09:39 40 09/29/24 09:10 45 09/29/24 09:00 09/29/24 08:00 09/29/24 08:00 50 09/29/24 07:51 50 09/29/24 06:47 09/29/24 06:16 09/29/24 06:16 09/29/24 06:16 50 09/29/24 06:01 50 09/29/24 04:47 09/29/24 04:00 50 09/29/24 04:00 09/29/24 03:00 09/29/24 02:00 50 09/29/24 02:00 50 09/29/24 00:52 09/29/24 00:01 50 09/29/24 00:01 09/29/24 00:00 09/29/24 00:00 50 09/28/24 23:45 50 09/28/24 23:35 09/28/24 23:34 09/28/24 23:33 50 09/28/24 23:30 50 09/28/24 23:15 45 09/28/24 23:00 45 09/28/24 22:40 09/28/24 22:00 45 09/28/24 21:00 09/28/24 20:00 45 09/28/24 20:00 45 09/28/24 20:00 09/28/24 18:59 09/28/24 18:15 09/28/24 18:14 09/28/24 18:00 45 09/28/24 17:00 45 09/28/24 17:00 09/28/24 16:01 50 09/28/24 16:00 09/28/24 16:00 09/28/24 15:01 50 09/28/24 15:00 09/28/24 14:05 09/28/24 14:05 09/28/24 14:05 60 09/28/24 14:00 09/28/24 14:00 60 Intake and Output 09/28/24 09/29/24 09/29/24 23:59 07:59 15:59 Intake Total 590 / 1190 80 / 650 570 / 650 Output Total 500 / 850 0 / 275 275 / 275 Balance 90 / 340 80 / 375 295 / 375 Intake: Intake, Oral Amount 240 / 720 60 / 540 480 / 540 Intake, Total IV Amount 350 / 470 20 / 110 90 / 110 Cefepime HCl 2 gm In 0.9 % 100 / 220 20 / 110 90 / 110 Sodium Chloride 100 ml @ 200 mls/hr IV Q12H [facility] Rx#:[id number] Vancomycin HCl 750 mg In 0.9 % 250 / 250 Sodium Chloride 250 ml @ 125 mls/hr IV Q24H [facility] Rx#:[id number] Output: Output, Urine Amount 500 / 850 0 / 275 275 / 275 Other: Number of Unmeasured Voids 0 1 1 Weight 53.479 kg 53.479 kg Patient Weight 09/29/24 23:59 Weight 53.479 kg Laboratory Results - last 24 hr 09/29/24 07:46: WBC 12.6 H, RBC 3.65 L, Hgb 10.1 L, Hct 31.8 L, MCV 87.1, MCH 27.7, MCHC 31.8, RDW 16.4, Plt Count 350, MPV 11.6 H, Neut % (Auto) 71.2, Lymph % (Auto) 15.8, [place] % (Auto) 9.3, Eos % (Auto) 1.1, Baso % (Auto) 0.5, Neut # (Auto) 9.0 H, Lymph # (Auto) 2.0, [place] # (Auto) 1.2 H, Eos # (Auto) 0.1, Baso # (Auto) 0.1, Sodium 141, Potassium 3.6, Chloride 100, Carbon Dioxide 28, Anion Gap 16.6 H, BUN 19 H, Creatinine 0.70 D, Estimated Creat Clear 42, Estimated GFR 82, Est GFR ( Amer) 99 D, Glucose 181 H D, Calcium 9.2, Magnesium 1.7, Total Bilirubin 0.6, AST 31, ALT 23, Alkaline Phosphatase 116, Total Protein 6.6, Albumin 3.4 L, Globulin 3.2, Albumin/Globulin Ratio 1.1 09/29/24 10:50: Vancomycin Trough 13.5 H I & O for Labs for Last 24 Hours: Intake & Output 09/26/24 09/27/24 09/28/24 09/29/24 23:59 23:59 23:59 23:59 Intake Total 1005 / 1105 1086 / 1086 1170 / 1190 650 / 650 Output Total 875 / 900 425 / 475 850 / 850 275 / 275 Balance 130 / 205 661 / 611 320 / 340 375 / 375 Weight 53.325 kg 54.613 kg 54.703 kg 53.479 kg Microbiology Reports for the Last 24 Hours: Microbiology 09/24/24 08:28 Blood Blood Culture - Final NO GROWTH AFTER 5 DAYS 09/24/24 08:27 Blood Blood Culture - Final NO GROWTH AFTER 5 DAYS 09/25/24 11:25 Sputum - Expectorated Sputum Gram Stain - Final 09/25/24 11:25 Sputum - Expectorated Sputum Sputum Culture - Final Constitutional: Present no acute distress, thin, chronically ill appearing and cooperative Head: Present atraumatic and normocephalic ENT: Present normal exam Respiratory: Present accessory muscle use, prolonged expiratory phase and rhonchi; Absent wheezes or crackles Comment:: Rhonchorous cough today, productive Cardiac: Present Reg Rate and Rhythm GI: Present soft and normal bowel sounds; Absent distention or tenderness Extremities: Present normal inspection and full ROM; Absent tenderness Skin: Present intact; Absent erythema Comment:: Tiny area of irritation on bottom. Present on admission. Neuro: Present Grossly Intact, alert and awake Comment:: Residual right-sided deficits from previous CVA. At baseline mentation. Alert and oriented to person and place Assessment and Plan *Assessment and plan (1) Severe sepsis: Status: Acute Category: Medical Code(s): A41.9 - Sepsis, unspecified organism; R65.20 - Severe sepsis without septic shock (2) Multifocal pneumonia: Status: Acute Category: Medical Code(s): J18.9 - Pneumonia, unspecified organism (3) Acute hypoxic respiratory failure: Status: Acute Category: Medical Code(s): J96.01 - Acute respiratory failure with hypoxia (4) Hypertension: Status: Acute Qualifiers: Hypertension type: primary hypertension Qualified Code(s): I10 - Essential (primary) hypertension Category: Medical Code(s): I10 - Essential (primary) hypertension (5) Diabetes mellitus: Status: Acute Qualifiers: Diabetes mellitus type: type 2 Diabetes mellitus complication status: without complication Diabetes mellitus penitentiary insulin use: without penitentiary use Qualified Code(s): E11.9 - Type 2 diabetes mellitus without complications Category: Medical Code(s): E11.9 - Type 2 diabetes mellitus without complications (6) CAD (coronary artery disease): Status: Acute Qualifiers: Coronary Disease-Associated Artery/Lesion type: [place] artery [place] vs. transplanted heart: [place] heart Associated angina: without angina Qualified Code(s): I25.10 - Atherosclerotic heart disease of [place] coronary artery without angina pectoris Category: Medical Code(s): I25.10 - Atherosclerotic heart disease of [place] coronary artery without angina pectoris (7) Diastolic CHF: Status: Acute Category: Medical Code(s): I50.30 - Unspecified diastolic (congestive) heart failure (8) Diabetes type 2, controlled: Status: Acute Category: Medical Code(s): E11.9 - Type 2 diabetes mellitus without complications (9) Vascular dementia: Status: Acute Category: Medical Code(s): F01.50 - Vascular dementia, unspecified severity, without behavioral disturbance, psychotic disturbance, mood disturbance, and anxiety (10) History of CVA (cerebrovascular accident): Status: Chronic Category: Medical Code(s): Z86.73 - Personal history of transient ischemic attack (TIA), and cerebral infarction without residual deficits Plan 73-year-old female with history of CHF, CABG, CAD, CVA, diabetes, dementia. Presented with acute worsening shortness of breath. Workup in the ER concerning for CHF exacerbation, evere sepsis, multifocal pneumonia. Discussed case with ER physician, request admission for further treatment of respiratory failure. I agreed to admit for further management. Meeting severe sepsis criteria with white count of 19, tachycardia with heart rate of 93, infection on CT, multiorgan dysfunction. Fluid bolus held on admission due to component of CHF with elevated BNP suggestive of volume overload. Has shown gradual improvement over the past few days. Continues to require inpatient management. Tolerating broad-spectrum antibiotics with improved clinical state. Problems addressed as follows: Acute on chronic hypoxemic respiratory failure CHF exacerbation Pneumonia - Continue cefepime and vancomycin IV, monitor for toxicity of kidney function - White count essentially stable at 12. Potassium normal. BUN 19, creatinine 0.7. Magnesium 1.7. Replacing per protocol. - Blood cultures negative at 48 hours. CRE screen negative. Sputum culture with no results at this - Continue Lasix 40 mg daily, transition to p.o - Repeat CBC, CMP, magnesium ordered for the morning. - continue incentive spirometry 3 times a day. Wean oxygenation as needed for goal sats greater 90%. Able to wean to 4 L nasal cannula after rounds. Continue chest percussion twice daily. Diabetes: - A1c 6.1. Glucose 181 on morning labs. Continue sliding scale insulin with fingersticks ACHS. - Continue home metformin at 1000 mg twice daily Hypertension: SVT - Heart rate doing better. Continue metoprolol succinate 100 mg twice daily. Continue amlodipine increased to 10 mg daily, continue lisinopril 40 mg daily, continue isosorbide 30 mg daily GERD: Continue pantoprazole 40 mg daily p.o. History of CVA: continue Lipitor 80 mg daily for hyperlipidemia, continue aspirin 325 mg daily Depression: Resume Lexapro 10 mg daily Vascular dementia: Resume donepezil and memantine DNR Lovenox 40 mg subcu daily Cardiac diet
--- NOTE | 2024-09-29 13:55 | PC.NURSE ---
Pt SpO2 dropped to 82% on 4 L NC at this time. Patient placed on 5L NC. Patients SpO2 on 5 L NC is 90%. Respiratory notified. Continuation of care plan.
--- NOTE | 2024-09-29 14:15 | PC.NURSE ---
Respiratory at bedside. Patients NC increased to 6 L NC by Respiratory Therapist. Continuation of care plan.
--- NOTE | 2024-09-29 15:00 | PC.NURSE ---
at bedside. notified that Patient is on 6 L NC. Continuation of care plan.
[2024-09-29] MEDS: humaLOG 100 UNITS/ML 10ML VIAL (SSI) SUBCUT (16:10)
[2024-09-29 16:42] LABS: Vancomycin,Peak 25.3 ug/ml (11-39)
[2024-09-29] MEDS: ATORVASTATIN 40MG TABLET 80 MG PO (21:13)
[2024-09-29] MEDS: PANTOPRAZOLE 40MG TABLET 40 MG PO (21:13)
[2024-09-30] VITALS (13 sets, daily range): BP systolic 143–171; BP diastolic 55–74; PULSE 68–90; RESP 18–26; TEMP 36.7–37.2; O2SAT 70–98; BMI 23.3
[2024-09-30] MEDS: LEVALBUTEROL 1.25MG/3ML NEB 1.25 MG IH ×2 (06:45→11:21)
[2024-09-30 07:28] LABS: Hematocrit 31.6 % (37.0-47.0); Hemoglobin 9.9 g/dL (12.2-16.2); Immature Granulocytes % 2.7 %; Mean Corpuscular HGB Conc 31.3 g/dL (31.8-35.4); Mean Corpuscular Hemoglobin 27.0 pg (27.0-31.2); Mean Corpuscular Volume 86.3 fl (81-99); Nucleated Red Blood Cells % 0 %; Platelet Count 302 K/mm3 (142-424); Red Blood Count 3.66 M/mm3 (4.20-5.40); Red Cell Distribution Width-SD 50.9 fL; White Blood Count 12.6 K/mm3 (4.8-10.8)
[2024-09-30 07:41] LABS: Alanine Aminotransferase 27 U/L (12-78); Albumin Level 3.4 g/dl (3.5-5.0); Albumin/Globulin Ratio 1.1 (1.1-1.8); Alkaline Phosphatase 113 U/L (38-126); Anion Gap 12.8 mEq/L (5-15); Aspartate Amino Transferase 41 U/L (14-36); Bilirubin,Total 0.5 mg/dl (0.2-1.3); Blood Urea Nitrogen 17 mg/dl (7-17); Calcium 9.1 mg/dl (8.4-10.2); Carbon Dioxide 32 mmol/L (22.0-30.0); Chloride 98 mmol/L (98-107); Creatinine Clearance Estimated 43 mL/min (50-200); Creatinine,Serum 0.60 mg/dl (0.52-1.04); Estimated Glomerular Filt Rate 98 ml/min (>60); GFR (African American) 119 ML/MIN (>60); Globulin 3.2 g/dL (1.3-3.2); Glucose 169 mg/dl (74-100); Magnesium 1.6 mg/dl (1.6-2.3); Potassium 3.8 mmoL/L (3.5-5.1); Sodium 139 mmol/L (136-145); Total Protein,Serum 6.6 g/dl (6.3-8.2)
[2024-09-30] MEDS: FUROSEMIDE 40 MG TABLET PO (08:38)
[2024-09-30] MEDS: MEMANTINE 10MG TABLET 10 MG PO (08:38)
[2024-09-30] MEDS: LISINOPRIL 20MG TABLET 40 MG PO (08:38)
[2024-09-30] MEDS: METOPROLOL SUCCINATE XL 100MG TABLET 100 MG PO (08:38)
[2024-09-30] MEDS: ESCITALOPRAM 10MG TABLET 10 MG PO (08:39)
[2024-09-30] MEDS: ASPIRIN 325MG TABLET 325 MG PO (08:39)
[2024-09-30] MEDS: AMLODIPINE 10MG TABLET 10 MG PO (08:39)
[2024-09-30] MEDS: ISOSORBIDE MONO 30MG TAB.ER.24H 30 MG PO (08:39)
--- NOTE | 2024-09-30 09:32 | P.PN_ITS ---
Subjective *Date: 09/30/24 *Time: 10:49 Interval history: No acute respiratory events overnight. Patient admits continued improvement in her respiratory status. Pulmonology Exam Inpatient Vital signs and Labs for Last 24 Hours: Temp Pulse Resp BP Pulse Ox O2 Del Method O2 Flow Rate 98.2 F 90 24 165/74 H 95 Nasal Cannula 4 09/30/24 08:00 09/30/24 08:00 09/30/24 08:00 09/30/24 08:00 09/30/24 08:00 09/30/24 08:00 09/30/24 08:00 FiO2 40 09/29/24 12:01 Laboratory Results - last 24 hr 09/29/24 07:46: WBC 12.6 H, RBC 3.65 L, Hgb 10.1 L, Hct 31.8 L, MCV 87.1, MCH 27.7, MCHC 31.8, RDW 16.4, Plt Count 350, MPV 11.6 H, Neut % (Auto) 71.2, Lymph % (Auto) 15.8, [place] % (Auto) 9.3, Eos % (Auto) 1.1, Baso % (Auto) 0.5, Neut # (Auto) 9.0 H, Lymph # (Auto) 2.0, [place] # (Auto) 1.2 H, Eos # (Auto) 0.1, Baso # (Auto) 0.1 09/29/24 10:50: Vancomycin Trough 13.5 H 09/29/24 16:00: Vancomycin Peak 25.3 09/30/24 06:46: WBC 12.6 H, RBC 3.66 L, Hgb 9.9 L, Hct 31.6 L, MCV 86.3, MCH 27.0, MCHC 31.3 L, RDW 16.3, Plt Count 302, MPV 11.2 H, Neut % (Auto) 69.4, Lymph % (Auto) 18.6, [place] % (Auto) 6.7, Eos % (Auto) 2.2, Baso % (Auto) 0.4, Neut # (Auto) 8.8 H, Lymph # (Auto) 2.4, [place] # (Auto) 0.8, Eos # (Auto) 0.3, Baso # (Auto) 0.1, Sodium 139, Potassium 3.8, Chloride 98, Carbon Dioxide 32 H, Anion Gap 12.8, BUN 17, Creatinine 0.60, Estimated Creat Clear 43, Estimated GFR 98, Est GFR ( Amer) 119 D, Glucose 169 H, Calcium 9.1, Magnesium 1.6, Total Bilirubin 0.5, AST 41 H D, ALT 27, Alkaline Phosphatase 113, Total Protein 6.6, Albumin 3.4 L, Globulin 3.2, Albumin/Globulin Ratio 1.1 Temp Pulse Resp BP Pulse Ox O2 Del Method O2 Flow Rate 98.9 F 91 H 20 161/83 H 91 L Vapotherm 40 09/25/24 04:00 09/25/24 08:00 09/25/24 08:00 09/25/24 08:00 09/25/24 08:00 09/25/24 08:00 09/25/24 08:00 FiO2 90 09/25/24 08:00 Laboratory Results - last 24 hr 09/24/24 11:20: Troponin I < 0.01 09/24/24 12:09: POC Glucose 176 H 09/24/24 14:42: Lactate 2.8 H, Troponin I < 0.01 09/24/24 16:04: POC Glucose 171 H 09/24/24 17:00: Lactate 1.9 09/24/24 19:32: POC Glucose 186 H 09/25/24 04:20: WBC 11.8 H D, RBC 3.64 L, Hgb 9.9 L D, Hct 31.9 L, MCV 87.6, MCH 27.2, MCHC 31.0 L, RDW 17.1, Plt Count 249 D, MPV 10.9 H, Neut % (Auto) 86.3 H, Lymph % (Auto) 7.1 L, [place] % (Auto) 5.8, Eos % (Auto) 0.0 L, Baso % (Auto) 0.3, Neut # (Auto) 10.1 H, Lymph # (Auto) 0.8, [place] # (Auto) 0.7, Eos # (Auto) 0.0, Baso # (Auto) 0.0, Sodium 141, Potassium 3.1 L, Chloride 94 L, Carbon Dioxide 39 H, Anion Gap 11.1, BUN 20 H, Creatinine 0.80, Estimated Creat Clear 43, Estimated GFR 70, Est GFR ( Amer) 85, Glucose 161 H D, Calcium 8.0 L, Magnesium 1.4 L, Total Bilirubin 0.5, AST 21 D, ALT 16 D, Alkaline Phosphatase 111, Total Protein 6.4, Albumin 3.5 D, Globulin 2.9, Albumin/Globulin Ratio 1.2 09/25/24 05:46: POC Glucose 191 H I & O for Labs for Last 24 Hours: Intake & Output 09/27/24 09/28/24 09/29/24 09/30/24 23:59 23:59 23:59 23:59 Intake Total 1086 / 1086 1170 / 1190 1010 / 1230 640 / 640 Output Total 425 / 475 850 / 850 400 / 400 250 / 250 Balance 661 / 611 320 / 340 610 / 830 390 / 390 Weight 120 lb 6.4 oz 120 lb 9.6 oz 117 lb 14.4 oz 119 lb 1.6 oz Intake & Output 09/22/24 09/23/24 09/24/24 09/25/24 23:59 23:59 23:59 23:59 Intake Total 100 / 100 170 / 170 Output Total 750 / 750 400 / 400 Balance -650 / -650 -230 / -230 Weight 120 lb 9 oz 118 lb Microbiology Reports for the Last 24 Hours: Microbiology 09/24/24 08:28 Blood Blood Culture - Final NO GROWTH AFTER 5 DAYS 09/24/24 08:27 Blood Blood Culture - Final NO GROWTH AFTER 5 DAYS Microbiology 09/24/24 08:27 Blood Blood Culture - Preliminary NO GROWTH AFTER 24 HOURS 09/24/24 08:28 Blood Blood Culture - Preliminary NO GROWTH AFTER 24 HOURS Constitutional: Present severe distress Head: Present normocephalic and atraumatic ENT: Present normal exam, normal oropharynx and mucous membranes moist Neck: Present normal inspection and full ROM Respiratory: Present respiratory distress and rhonchi; Absent wheezes or able to speak in complete sentences Cardiac: Present S1/S2, Tachycardia and radial pulses present GI: Present soft and distention; Absent tenderness or guarding Rectal (female): Present deferred (female): Present deferred Skin: Present intact; Absent cyanosis or jaundice Neuro: Present alert, awake and oriented x 3 Extremities: Present normal inspection; Absent clubbing or cyanosis Psychiatric: Present unable to assess Assessment and Plan *Assessment and plan (1) Acute hypoxic respiratory failure: Status: Acute Category: Medical Code(s): J96.01 - Acute respiratory failure with hypoxia (2) Multifocal pneumonia: Status: Acute Category: Medical Code(s): J18.9 - Pneumonia, unspecified organism Plan Ms. Stone is a 73-year-old with reported history of CVA right-sided weakness, CABG CHF presented with worsening respiratory distress needing high flow nasal cannula oxygen supplementation pulmonary was called for further evaluation and management. CTA upon admission no evidence of pulmonary embolism. Dense right middle lobe consolidative changes with the previously noted left lower lobe airspace disease significantly improved but completely resolved. Lower extremities Doppler negative for DVT. Neutrophilic predominant leukocytosis improving. Blood cultures no growth so far. COVID-19 and flu PCR panel NEGATIVE. Afebrile. Hemodynamically stable. On initial exam in examination severe respiratory distress. Rhonchorous breath sounds bilaterally. No significant wheezing. On high flow nasal cannula 40 L at 90% saturating 92%. Continue to receive vancomycin and cefepime. Interval update: No acute respiratory vents over the weekend with significant improvement in oxygen requirements. Sputum culture no growth, normal respiratory francisca. Continue to receive vancomycin and cefepime, Chest x-ray from this morning improving pulmonary infiltrates. Able to perform flutter valve. Plan: Antibiotics can be weaned to levofloxacin to complete a total of 7-day course. Continue Xopenex every 6 scheduled Incentive spirometry and flutter 3 times daily Volume optimization as per primary team and cardiology
--- NOTE | 2024-09-30 09:33 | XR_ITS ---
FINAL REPORT TECHNIQUE: Single view chest CLINICAL HISTORY: PNM COMPARISON: 09/28/2024 FINDINGS: A single view of the chest was obtained. Patient is rotated to the right. Postoperative changes of median sternotomy are seen. The heart and mediastinum are within normal limits. The lungs are underinflated with right greater than left atelectasis at the bases. There is right upper lobe airspace opacity likely due to acute pneumonia. There is no pneumothorax. IMPRESSION: Right upper lobe airspace opacity likely due to acute pneumonia. Reviewed, Interpreted and Dictated by Clint Gaspar MD Transcribed by Yasemin Domingo Authenticated and . [facility]
[2024-09-30] MEDS: CEFEPIME HCL 2 GM in 0.9 % SODIUM CHLORIDE 100 ML IV (10:13)
[2024-09-30] MEDS: humaLOG 100 UNITS/ML 10ML VIAL (SSI) SUBCUT (11:34)
[2024-09-30] MEDS: VANCOMYCIN HCL 750 MG in 0.9 % SODIUM CHLORIDE 250 ML 125 MG IV (11:34)
--- NOTE | 2024-09-30 11:36 | EXP.DC.SUM ---
General Admission date:: 09/24/24 Discharge date: 09/30/24 HPI HPI HPI: Ms. Stone is a 73-year-old female history of CVA with residual right sided deficits, CABG, CHF, who presented with acute hypoxia to the ER. Normally wears 2 to 3 L of oxygen at home. Has been feeling more short of breath over the past 1 to 2 days. Today she was quite dyspneic and family had to turn her oxygen up and was unable to get her oxygen saturations above 90%. Brought to the ER for hypoxia. Found to have sats in the 60s on arrival. Patient has had a coarse cough over the past 1 to 2 days. Denies fever. No nausea or vomiting. Was assisting with transitions as recent as yesterday. Is nonambulatory due to residual stroke deficits. Denies chest pain. Workup in the ER concerning for multiple abnormalities. White count elevated at 19, chest imaging with dense consolidation of right middle and left lower lobes. Elevated BNP of 5000. Meeting sepsis criteria. Started on broad-spectrum antibiotics with azithromycin, cefepime, vancomycin. Fluids were held due to concern for component of volume overload. No sepsis bolus administered. Medicine consulted for admission Admitted patient to the ICU, upon arrival, she had worsening respiratory decline and is on Vapotherm 40 L 100%. Appears less dyspneic, heart rate is improved in sinus rhythm. Condition very tenuous. Quite weak on exam. Unable to answer any questions. Did look at me and smiled when I came in the room. Family at bedside helps supplement history Hospital Course Hospital Course Hospital Course: 73-year-old female with history of CHF, CABG, CAD, CVA, diabetes, dementia. Presented with acute worsening shortness of breath. Workup in the ER concerning for CHF exacerbation, evere sepsis, multifocal pneumonia. Discussed case with ER physician, request admission for further treatment of respiratory failure. I agreed to admit for further management. Meeting severe sepsis criteria with white count of 19, tachycardia with heart rate of 93, infection on CT, multiorgan dysfunction. Fluid bolus held on admission due to component of CHF with elevated BNP suggestive of volume overload. Initially required Vapotherm at 100%. Had slow improvement with diuresis and antibiotics and aggressive pulmonary toilet. Gradually improved to nasal cannula oxygen, requiring 4 L at time of discharge. Had been stable on 4 L for 24 hours prior to discharge home. Completed course of antibiotics during admission. Discharged with family. Problems addressed as follows: Acute on chronic hypoxemic respiratory failure CHF exacerbation Pneumonia -Presented with respiratory failure. Patient was DNR/DNI. Initially required Vapotherm at 40 L and 100%. Showed gradual improvement with aggressive antibiotics, diuresis, pulmonary toilet. Able to gradually wean over course of hospitalization to nasal cannula oxygen. On 2 L baseline prior to admission. Discharged on 4 L to maintain sats above 90%. White count showed gradual improvement from 19-12 by day of discharge. Kidney function and electrolytes stable. Blood cultures remained negative. Sputum cultures remained negative. Diuresed well with Lasix, continue p.o. at discharge. Continue incentive spirometry 3 times a day and flutter valve to promote expectoration and clearance of airways. Completed 7 days of antibiotics with final dose of Levaquin administered IV on day of discharge. No further antibiotics at discharge Diabetes: - A1c 6.1. Glucose remained stable during admission. Resume home regimen at discharge with metformin. Hypertension: SVT -Patient had intermittent SVT, predominantly at night while sleeping. Responded to vagal maneuvers. Did not require any immediate intervention. Metoprolol was increased to metoprolol succinate 100 mg twice daily with improved rate control. No events for 24 hours prior to discharge. Continue amlodipine, lisinopril, isosorbide at discharge for hypertension. GERD: Continue pantoprazole 40 mg daily p.o. History of CVA: continue Lipitor 80 mg daily for hyperlipidemia, continue aspirin 325 mg daily Depression: Resume Lexapro 10 mg daily Vascular dementia: Resume donepezil and memantine Patient has history of CVA, is bedbound. Residual left-sided deficits. Total care by family. Would recommend lift be provided for home use. Without it patient is confined to bed and only has 1 person/caregiver at home to support her Total time spent on discharge 36 minutes in counseling, documentation, chart review, and direct care with patient. Exam Data for Last 24 hours Vital signs and Labs for Last 24 Hours: Temp Pulse Resp BP Pulse Ox O2 Del Method O2 Flow Rate 98.2 F 90 18 162/55 H 94 L Nasal Cannula 4 09/30/24 08:00 09/30/24 11:33 09/30/24 11:33 09/30/24 10:00 09/30/24 10:00 09/30/24 11:00 09/30/24 11:00 FiO2 40 09/29/24 12:01 Laboratory Results - last 24 hr 09/29/24 10:50: Vancomycin Trough 13.5 H 09/29/24 16:00: Vancomycin Peak 25.3 09/30/24 06:46: WBC 12.6 H, RBC 3.66 L, Hgb 9.9 L, Hct 31.6 L, MCV 86.3, MCH 27.0, MCHC 31.3 L, RDW 16.3, Plt Count 302, MPV 11.2 H, Neut % (Auto) 69.4, Lymph % (Auto) 18.6, [place] % (Auto) 6.7, Eos % (Auto) 2.2, Baso % (Auto) 0.4, Neut # (Auto) 8.8 H, Lymph # (Auto) 2.4, [place] # (Auto) 0.8, Eos # (Auto) 0.3, Baso # (Auto) 0.1, Sodium 139, Potassium 3.8, Chloride 98, Carbon Dioxide 32 H, Anion Gap 12.8, BUN 17, Creatinine 0.60, Estimated Creat Clear 43, Estimated GFR 98, Est GFR ( Amer) 119 D, Glucose 169 H, Calcium 9.1, Magnesium 1.6, Total Bilirubin 0.5, AST 41 H D, ALT 27, Alkaline Phosphatase 113, Total Protein 6.6, Albumin 3.4 L, Globulin 3.2, Albumin/Globulin Ratio 1.1 I & O for Last 24 hours: Intake & Output 09/27/24 09/28/24 09/29/24 09/30/24 23:59 23:59 23:59 23:59 Intake Total 1086 / 1086 1170 / 1190 1010 / 1230 640 / 640 Output Total 425 / 475 850 / 850 400 / 400 250 / 250 Balance 661 / 611 320 / 340 610 / 830 390 / 390 Weight 54.613 kg 54.703 kg 53.479 kg 54.023 kg Microbiology Reports for the Last 24 Hours: Microbiology 09/24/24 08:28 Blood Blood Culture - Final NO GROWTH AFTER 5 DAYS 09/24/24 08:27 Blood Blood Culture - Final NO GROWTH AFTER 5 DAYS Constitutional Constitutional: no acute distress, average body habitus, chronically ill appearing and cooperative *Routine HEENT Exam Head: Present normocephalic and atraumatic ENT: Present mucous membranes moist *Routine Neck Exam Neck: Present supple and full ROM; Absent JVD, carotid bruit or lymphadenopathy *Routine Respiratory Exam Respiratory: Present crackles (minimal in right lung field), normal respiratory effort, able to speak in complete sentences and symmetric chest movement; Absent rhonchi or wheezes *Routine Cardiovascular Exam Cardiovascular: Present Normal S1, Normal S2 and tachycardia; Absent murmur or gallop *Routine Abdominal Exam Abdominal: Present soft and normoactive bowel sounds; Absent tenderness, distended or organomegaly *Routine Rectal Exam Patient deferred: visual exam *Routine Exam Patient deferred: external exam *Routine Extremities Exam Extremities: Present pulses intact and normal capillary refill; Absent cyanosis, clubbing or edema *Routine Skin Exam Skin: Present intact and warm; Absent erythema *Routine Neurological Exam Neurological: Present alert, oriented X3 and CN II-XII intact Comments: risidual left sided deficits Routine Psychiatric Exam Psychiatric: Present normal affect Results Data Completed and Pending Labs on day of discharge: Labs from last 24 hours 09/30/24 09/29/24 09/29/24 06:46 16:00 10:50 WBC 12.6 H RBC 3.66 L Hgb 9.9 L Hct 31.6 L MCV 86.3 MCH 27.0 MCHC 31.3 L RDW 16.3 Plt Count 302 MPV 11.2 H Neut % (Auto) 69.4 Lymph % (Auto) 18.6 [place] % (Auto) 6.7 Eos % (Auto) 2.2 Baso % (Auto) 0.4 Neut # (Auto) 8.8 H Lymph # (Auto) 2.4 [place] # (Auto) 0.8 Eos # (Auto) 0.3 Baso # (Auto) 0.1 Sodium 139 Potassium 3.8 Chloride 98 Carbon Dioxide 32 H Anion Gap 12.8 BUN 17 Creatinine 0.60 Estimated Creat Clear 43 Estimated GFR 98 Est GFR ( Amer) 119 D Glucose 169 H Calcium 9.1 Magnesium 1.6 Total Bilirubin 0.5 AST 41 H D ALT 27 Alkaline Phosphatase 113 Total Protein 6.6 Albumin 3.4 L Globulin 3.2 Albumin/Globulin Ratio 1.1 Vancomycin Peak 25.3 Vancomycin Trough 13.5 H DS: Diagnosis Discharge Diagnosis (1) Acute hypoxic respiratory failure: Status: Acute Code(s): J96.01 - Acute respiratory failure with hypoxia (2) Multifocal pneumonia: Status: Acute Code(s): J18.9 - Pneumonia, unspecified organism Meds Home Medications and Allergies Home Medications ?Medication ?Instructions ?Recorded ?Confirmed ?Type atorvastatin 80 mg tablet 80 mg PO HS 04/05/17 09/24/24 History aspirin 325 mg tablet 325 mg PO DAILY 09/14/17 09/24/24 History isosorbide mononitrate 30 mg 30 mg PO DAILY 03/26/18 09/24/24 History tablet,extended release 24 hr amlodipine 5 mg tablet 5 mg PO DAILY 05/20/19 09/24/24 History cholecalciferol (vitamin D3) 25 25 mcg PO HS 03/13/20 09/24/24 History mcg (1,000 unit) capsule memantine 10 mg tablet 10 mg PO BID 09/18/20 09/24/24 History donepezil 5 mg tablet 5 mg PO DAILY 05/21/21 09/24/24 History multivitamin (Daily Multi-Vitamin 1 tab PO DAILY 12/03/21 09/24/24 History tablet) escitalopram oxalate 10 mg tablet 10 mg PO DAILY 06/17/22 09/24/24 History lisinopril 40 mg tablet 40 mg PO BID 01/21/23 09/24/24 History metformin 1,000 mg tablet 1,000 mg PO BID 01/22/23 09/24/24 History pantoprazole 40 mg tablet,delayed 40 mg PO DAILY 02/21/24 09/24/24 History release gabapentin 100 mg capsule 100 mg PO BID 03/11/24 09/24/24 History lorazepam 0.5 mg tablet 0.5 mg PO HS 03/11/24 09/24/24 History furosemide 20 mg tablet 20 mg PO DAILY 30 days #0 tabs 03/13/24 09/24/24 Rx ferrous sulfate 325 mg (65 mg 325 mg PO DAILY 06/27/24 09/24/24 History iron) tablet (FeroSul) magnesium oxide 400 mg (241.3 mg 400 mg PO BID 06/27/24 09/24/24 History magnesium) tablet metoprolol succinate 100 mg 100 mg PO BID 30 days #60 tabs 09/30/24 Rx tablet,extended release 24 hr New Prescriptions to Start Prescriptions: metoprolol succinate Steven Dao Allergies Allergy/AdvReac Type Severity Reaction Status Date / Time Iodinated Contrast Media Allergy Mild Unknown Verified 09/24/24 12:10 allergy reaction naproxen Allergy Mild Unknown Verified 09/24/24 12:10 allergy reaction Discharge Plan Disposition Patient Disposition: Home, Self-Care Condition: Fair Discharge Order Discharge Orders: Discharge Order (Routine); Ordered 09/30/24 Ordered By: Steven Dao Follow up Plan Follow up with: Claudio Wright MD [Physician, Pulmonology] - 10/16/24 11:40 am Roe Gleason MD [Primary Care Provider, Internal Medicine] - 10/07/24 11:45 am Prescriptions/Medication Reconciliation: Continued atorvastatin 80 mg tablet 80 mg PO HS aspirin 325 mg tablet 325 mg PO DAILY multivitamin [Daily Multi-Vitamin] Tablet 1 tab PO DAILY escitalopram oxalate 10 mg tablet 10 mg PO DAILY Patient Comments: TAKE 1 TABLET BY MOUTH ONCE DAILY. pantoprazole 40 mg tablet,delayed release (DR/EC) 40 mg PO DAILY Patient Comments: ONE (1) TAB(S) ORALLY ONCE A DAY 90 DAYS cholecalciferol (vitamin D3) 25 mcg (1,000 unit) capsule 25 mcg PO HS memantine 10 mg tablet 10 mg PO BID Patient Comments: TAKE 1 TABLET BY MOUTH TWICE DAILY. donepezil 5 mg tablet 5 mg PO DAILY isosorbide mononitrate 30 MG tablet 30 mg PO DAILY lisinopril 40 mg tablet 40 mg PO BID metformin 1,000 mg tablet 1,000 mg PO BID Patient Comments: TAKE 1 TABLET BY MOUTH TWICE DAILY gabapentin 100 mg capsule 100 mg PO BID Patient Comments: TAKE 1 CAPSULE BY MOUTH TWICE DAILY lorazepam 0.5 mg tablet 0.5 mg PO HS furosemide 20 mg tablet 20 mg PO DAILY 30 Days Qty: 0 0RF Patient Comments: TAKE 1 TABLET BY MOUTH DAILY. magnesium oxide 400 mg (241.3 mg magnesium) tablet 400 mg PO BID Patient Comments: TAKE 1 TABLET BY MOUTH TWICE DAILY ferrous sulfate [FeroSul] 325 mg (65 mg iron) tablet 325 mg PO DAILY Patient Comments: TAKE ONE (1) TABLET BY MOUTH DAILY ,TAKE WITHVITAMINC amlodipine 5 MG tablet 5 mg PO DAILY Changed metoprolol succinate 100 mg tablet extended release 24 hr 100 mg PO BID 30 Days Qty: 60 0RF Patient Comments: TAKE 1 TABLET BY MOUTH ONCE DAILY Problem Reconciliation Problems Reviewed?: Yes Patient Discharge Instructions ACTIVITY: Continue current activity DIET: continue same diet Patient Instructions: DI for Severe Acute Respiratory Syndrome, DI for Sepsis -- Adult, Stop Light Pneumonia, Stop Light Infection Print Language: Hebrew Providers Primary Care Provider: Roe Gleason Admjuan pablo Provider: Steven Dao Attending Provider: Steven Dao
--- NOTE | 2024-09-30 13:26 | SW/DCPLANNER ---
Spoke with patient and family. They are not interested in short term rehab or home health services. They have most everything they need at home but do request a lift. Information sent for this to [facility].
[2024-09-30] MEDS: LEVOFLOXACIN/D5W 750 MG/150 ML 750 MG/150 ML PIGGYBACK 100 MG IV (13:32)
[2024-09-30 14:00] LABS: POC Glucose,Bedside 202 (70-110)
[2024-09-30 14:00] LABS: POC Glucose,Bedside 243 (70-110)
[2024-09-30 14:00] LABS: POC Glucose,Bedside 127 (70-110)
[2024-09-30 14:00] LABS: POC Glucose,Bedside 168 (70-110)
[2024-09-30 14:00] LABS: POC Glucose,Bedside 107 (70-110)
[2024-09-30 14:00] LABS: POC Glucose,Bedside 226 (70-110)
[2024-09-30 14:00] LABS: POC Glucose,Bedside 151 (70-110)
[2024-09-30 14:00] LABS: POC Glucose,Bedside 154 (70-110)
[2024-09-30 14:00] LABS: POC Glucose,Bedside 169 (70-110)
[2024-09-30 14:00] LABS: POC Glucose,Bedside 240 (70-110)
[2024-09-30 14:00] LABS: POC Glucose,Bedside 272 (70-110)
[2024-09-30 14:00] LABS: POC Glucose,Bedside 204 (70-110)
--- NOTE | 2024-10-01 10:30 | SW/DCPLANNER ---
Spoke with patient's daughter on the phone. Patient's daughter stated that her mom is doing good. Patient stated that they are aware of her upcoming appointments. Patient's daughter stated that she was able to get her moms new medicine. Patient's daughter stated that they have no concerns or questions at this time. Boaz Ferreira
== END 2024-09-30 15:43 | disposition home or self-care (01) | DRG 871 ==
LOC: ER 10:01 → ICU 11:20
PROVIDERS: Internal Medicine; Internal Medicine Pulmonary Disease; Admitting Provider Internal Medicine Adolescent Medicine; Emergency Provider Student in an Organized Health Care Education/Training Program; PCP Internal Medicine Adolescent Medicine; Visit Provider Internal Medicine Adolescent Medicine
DX: A41.9 Sepsis, unspecified organism (principal); I50.33 Acute on chronic diastolic (congestive) heart failure; J18.9 Pneumonia, unspecified organism; J96.21 Acute and chronic respiratory failure with hypoxia; I69.351 Hemiplegia and hemiparesis following cerebral infarction affecting right dominant side; I47.19 Other supraventricular tachycardia; J44.0 Chronic obstructive pulmonary disease with (acute) lower respiratory infection; E11.9 Type 2 diabetes mellitus without complications; I25.10 Atherosclerotic heart disease of native coronary artery without angina pectoris; R65.20 Severe sepsis without septic shock; Z66 Do not resuscitate; I11.0 Hypertensive heart disease with heart failure; K21.9 Gastro-esophageal reflux disease without esophagitis; E78.5 Hyperlipidemia, unspecified; F32.A Depression, unspecified; F01.50 Vascular dementia, unspecified severity, without behavioral disturbance, psychotic disturbance, mood disturbance, and anxiety; Z95.1 Presence of aortocoronary bypass graft; Z74.01 Bed confinement status; Z87.891 Personal history of nicotine dependence; Z79.82 Long term (current) use of aspirin; Z79.84 Long term (current) use of oral hypoglycemic drugs; Z79.899 Other long term (current) drug therapy; Z88.6 Allergy status to analgesic agent; Z91.041 Radiographic dye allergy status; Z99.81 Dependence on supplemental oxygen
CPT/HCPCS: 36415; 71045; 71275; 80048; 80053; 80202; 82803; 82962; 83605; 83735; 83880; 84484; 85025; 85378; 87040; 87070; 87081; 87205; 87636; 93005; 93970; 94640; 94667; 94668; 94761; 97162; 97166; J0456; J0692; J1650; J1938; J1956; J2470; J3370; J3475; J3480; J7050; J7614; Q9967

== ENCOUNTER 2024-10-08 17:33 | Emergency (ER) | payer MEDICARE, MEDICAID, SELFPAY ==
[2024-10-08 18:17] VITALS: BP 169/59; PULSE 80; RESP 18; TEMP 36.7; O2SAT 86; BMI 22.8
--- OUTSIDE RECORDS SUMMARY | 2024-10-08 18:19 | XMS_ITS | Clinical Summary ---
Author Organization [facility] Address [address] [place] [address] [place] [id number] Phone Care Team Providers Care [employer] Name Role Phone Unavailable Primary Care Provider [...] Active fluticasone propionate (FLONASE) 50 mcg/actuation Nasl [place], Suspension 2 Sprays by Nasal route daily. [...]
--- OUTSIDE RECORDS SUMMARY | 2024-10-08 18:19 | XMS_ITS | Patient Health Record ---
Author Organization [facility] Address [address] [place] [address] Care Team Providers Care Box Shook Patcher Name Role Phone VictorinoRoe Primary Care Provider Cony Maria Unavailable [phone] Nini Linder Unavailable [phone] Cony Gunderson Unavailable [phone] Migration, Provider Unavailable Unavailable Allergies Allergen (clinical drug ingredient) Drug/Non Drug Allergy documented on EMR Reaction Allergy Type Onset Date Status naproxen Naproxen Unknown Drug Allergy Active Results Component Value Reference Range Notes VITAMIN B12/FOLATE, SERUM PA MARY LOU (3595) Reviewed date:03/22/2024 12:10:25 PM Interpretation: Performing Lab:CB, [facility] [facility] [id number] [facility], [place] UduaNE[address] Lv Campo Notes/Report: NON-FASTING; NON-FASTING; NON-FASTING; NON-FASTING; NON-FAST VITAMIN B12 542 913-7574 pg/mL Please Note: Although the reference range [...] Range Low: <3.4 Borderline: 3.4-5.4 Normal: >5.4 IRON, TIBC AND FERRITIN PANE L (5616) Reviewed date:03/22/2024 12:10:24 PM Interpretation: Performing Lab:[facility] [id number], [place] ContentImzxWJ[address] [place] Notes/Report: NON-FASTING; NON-FASTING; NON-FASTING; NON-FASTING; NON-FAST IRON, TOTAL 23 45-160 mcg/dL IRON BINDING CAPACITY 387 250-450 mcg/dL (nabeel c) % SATURATION 6 16-45 % (calc) FERRITIN 7 16-288 ng/mL COMPREHENSIVE METABOLIC PANE L (77070) Reviewed date:03/22/2024 12:10:25 PM Interpretation: Performing Lab:[facility] [address], WantsterKoyoHV[address] [place] Notes/Report: NON-FASTING; NON-FASTING; NON-FASTING; NON-FASTING; [...] 19 10-35 U/L ALT 15 6-29 U/L MAGNESIUM (622) Reviewed date:03/22/2024 12:10:25 PM Interpretation: Performing Lab:[facility] [address], [facility] HospitalPsmnXO[address] [place] Notes/Report: NON-FASTING; NON-FASTING; NON-FASTING; NON-FASTING; NON-FAST MAGNESIUM 1.5 1.5-2.5 mg/dL CBC (INCLUDES DIFF/PLT) (639 9) Reviewed date:03/22/2024 12:10:25 PM Interpretation: Performing Lab:CB, [facility] [id number] [address] [facility], [facility] Care HospitalLaryVQ[address] Lv Campo Notes/Report: NON-FASTING; NON-FASTING; NON-FASTING; NON-FASTING; [...] MPV 11.7 7.5-12.5 fL ABSOLUTE NEUTROPHILS 6705 3360-0449 cells/uL ABSOLUTE LYMPHOCYTES 2575 850-3900 cells/uL ABSOLUTE MONOCYTES 731 200-950 cells/uL ABSOLUTE EOSINOPHILS 247 15-500 cells/uL ABSOLUTE BASOPHILS 41 0-200 cells/uL NEUTROPHILS 65.1 LYMPHOCYTES 25.0 MONOCYTES 7.1 EOSINOPHILS 2.4 BASOPHILS 0.4 MODIFIED BARIUM SWALLOW Reviewed date:08/15/2024 08:18:16 PM Interpretation: Performing Lab: Notes/Report: [address] [place] [address] Name: MARAGRITA STONE Exam Date: 08/14/2024 : 1950 Age 73 years Gender: F Physician: ROE COTTO Facility: [facility] Facility HSV: Outpatient Exam: MODIFIED BARIUM SWALLOW EXAM: MODIFIED BARIUM SWALLOW INDICATION: dysphasia. Suspicion for aspiration. COMPARISON: None ATTENDING OPHTHALMIC ASSISTANT: Ashok Dunn D.O. PIPE INSPECTOR: Jt Loaiza Jr., PA-C Procedure was performed by Jt Loaiza Jr., PA-C under the supervision of Dr. Dunn. FINDINGS/TECHNIQUE: Under fluoroscopic evaluation cineradiography/videoradiography recordings were performed in conjunction with the speech-language pathologist (RUG SHAMPOOER). Various liquid, solid and/or semi-solid barium preparations [...] Thank you for referring MARGARITA STONE to [facility]. Legally authenticated by RON ESCOBAR DO 2024-08-14 11:14:22 Medications Medication SIG (Take, Route, Frequency, Duration) Notes Start Date End Date Status Metoprolol Succinate ER 100 MG 1 tablet Orally twice a day; Duration: 180 days Active ASPIRIN EC 325 MG TAKE ONE (1) TABLET BY MOUTH EVERY DAY; Duration: 90 *Please review for potential replacement for e-prescription and drug interaction check* Active Donepezil HCl 5 MG TAKE 1 TABLET BY MOUTH EVERY DAY WITH BREAKFAST; Duration: 90 Active Tab-A-[place] - TAKE ONE (1) TABLET BY MOUTH EVERY DAY; Duration: 90 Active Atorvastatin Calcium 80 MG TAKE ONE (1) TABLET BY MOUTH EVERY NIGHT AT BEDTIME; Duration: 90 Active Pantoprazole Sodium 40 MG ONE (1) TAB(S) ORALLY ONCE A DAY 90 DAYS; Duration: 90 Active Magnesium Oxide -Mg Supplement 400 (240 Mg) MG TAKE 1 TABLET BY MOUTH TWICE DAILY; Duration: 90 Active Furosemide 20 MG TAKE ONE (1) TABLET BY MOUTH EVERY DAY; Duration: 90 Active LORazepam 0.5 MG TAKE 1 TABLET BY MOUTH EVERY DAY; Duration: 30 09/13/2024 Active Memantine HCl 10 MG TAKE ONE (1) TABLET BY MOUTH TWICE DAILY; Duration: 150 Active metFORMIN HCl 1000 MG ONE (1) TAB(S) ORALLY TWO (2) TIMES A DAY 90 DAYS; Duration: 90 Active Ipratropium [place] 0.02 % 2.5 mL by nebulizer 4 times a day; Duration: 30 days 11/16/2023 Active amLODIPine Besylate 5 MG ONE (1) TAB(S) ORALLY ONCE A DAY 90 DAYS; Duration: 90 Active Proctosol HC 2.5 % 1 taya applied topically 3 times a day; Duration: 14 days 03/21/2024 Active Lisinopril 40 MG ONE (1) TAB(S) ORALLY TWO (2) TIMES A DAY 90 DAYS; Duration: 90 Active Escitalopram Oxalate 10 MG 1 tab(s) orally once a day; Duration: 90 days Active Isosorbide Mononitrate ER 30 MG TAKE 1 TABLET BY MOUTH EVERY DAY; Duration: 90 Active Ferrous Sulfate 325 (65 Fe) MG 1 tab(s) orally once a day; Duration: 90 days 03/22/2024 Active Vitamin D3 25 MCG (1000 UT) TAKE ONE (1) TABLET BY MOUTH EVERY DAY; Duration: 90 Active Nystatin 938309 UNIT/GM 1 application Externally three times daily till clear; Duration: 14 days 07/04/2024 Active Gabapentin 100 MG TAKE 1 CAPSULE BY MOUTH TWICE DAILY; Duration: 30 09/13/2024 Active Albuterol Sulfate (2.5 MG/3ML) 0.083% 3 mL by nebulizer 4 times a day; Duration: 30 days 11/16/2023 Active Immunizations Vaccine Route Administration Date Status Comme nts Arexvy IM Intramuscular 03/07/2023 Administered Covid Moderna Unknown 05/22/2020 Administered Covid Moderna Unknown 06/19/2020 Administered Fluvirin--Influenz a vaccine 3+ year Unknown 02/08/2006 Administered Fluvirin--Influenz a vaccine 3+ year Unknown 02/26/2007 Administered Fluvirin--Influenz a vaccine 3+ year Unknown 02/06/2008 Administered Fluvirin--Influenz a vaccine 3+ year Unknown 01/05/2009 Administered Fluvirin--Influenz a vaccine 3+ year Unknown 01/21/2013 Administered FLUZONE 6MO - OLDER Unknown 11/27/2018 Administered given by [facility] Fluzone High Dose IM Intramuscular 01/21/2020 Administered Lot # [id number] Fluzone High Dose IM Intramuscular 12/07/2021 Administered Fluzone High Dose IM Intramuscular 01/03/2023 Administered Influenza (Fluzone)--Medicar e only IM Intramuscular 01/20/2015 Administered Pneumovax 23 IM Intramuscular 10/20/2015 Administered Prevnar PCV-13 (Pneumococcal conjugate 13) IM Intramuscular 10/24/2017 Administered Prevnar PCV-20 (Pneumococcal conjugate 20) IM Intramuscular 03/08/2022 Administered SHINGRIX IM Intramuscular 01/21/2020 Administered Lot # [id number] Social History Tobacco Use: Social History Observation Description Date Details (start date - stop date) Former Smoker NA - NA Smoking: Question Answer Notes Are you a: former smoker How long has it been since you last smoked? 3-6 months Problems Problem Type SNOMED Code ICD Code Onset Dates Problem Status W/U Status Risk Notes Problem Primary insomnia (9182538) Primary insomnia (F51.01) Active confirmed Problem Alzheimer's disease (95358277) Alzheimer's disease, unspecified (G30.9) Active confirmed Problem Panlobular emphysema (8296088) Panlobular emphysema (J43.1) Active confirmed Problem Chronic pulmonary edema (87991171) Chronic pulmonary edema (J81.1) Active confirmed Problem Nicotine dependence (55330897) Personal history of nicotine dependence (Z87.891) Active confirmed Problem Hypertension (16275541) HTN (hypertension) (I10) Active confirmed Problem Mixed anxiety and depressive disorder (484205058) Depression with anxiety (F41.8) Active confirmed Problem Anxiety (42144138) Anxiety (F41.9) Active confi rmed Problem Supraventricular tachycardia (7720321) SVT (supraventricular tachycardia) (I47.1) Active confirmed Problem Cerebrovascular disease (78389636) Cerebrovascular disease (I67.9) Active confirmed Problem Hyperlipidemia (05923411) Hyperlipidemia (E78.5) Active confirmed Problem Type II diabetes mellitus without complication (336576887) Diabetes mellitus type 2, noninsulin dependent (E11.9) Active confirmed Problem Ischemic stroke (748817436) Ischemic stroke (I63.50) Active confirmed Problem Gastroesophageal reflux disease (730901947) GERD without esophagitis (K21.9) Active confirmed Problem Acute exacerbation of chronic obstructive airways disease (134307563) COPD exacerbation (J44.1) Active confirmed Problem Memory loss (19914517) Memory loss (R41.3) Active confirmed Problem COPD - Chronic obstructive pulmonary disease (69223924) Chronic obstructive pulmonary disease, unspecified COPD type (J44.9) Active confirmed Problem Recurrent falls (886990865) Frequent falls (R29.6) Active confirmed Problem Abnormal mammogram (525367720) Abnormal mammogram (R92.8) Active confirmed Problem Ataxia (54554332) Ataxia (R27.0) Active confirm ed Problem Anemia (814589782) Anemia, unspecified type (D64.9) Active confirmed Problem Dysphagia (99802825) Dysphagia, unspecified type (R13.10) Active confirmed Problem Chronic anxiety (718474463) Chronic anxiety (F41.9) Active confirmed Problem Adult health examination (574628142) Healthcare maintenance (Z00.00) Active confirmed Problem Type II diabetes mellitus without complication (459665532) Type 2 diabetes mellitus without complication, without long-term current use of insulin (E11.9) Active confirmed Problem Menopausal syndrome (disorder) (899193410) Menopausal disorder (N95.9) Active confirmed Problem Primary hypertension (73930505) Primary hypertension (I10) Active confirmed Problem Localized, primary osteoarthritis of the pelvic region and thigh (473798468) Primary osteoarthritis of hips, 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) Active confirmed Problem Tobacco use (455709017) Tobacco use disorder (F17.200) Active confirmed Problem Leukocytosis (740600700) Leukocytosis, unspecified type (D72.829) Active confirmed Problem Arthritis of wrist (3295959316670) Arthritis of wrist, 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) Active confirmed Problem Osteoarthritis of right knee joint (disorder) (927840693126970) Localized osteoarthritis of right knee (M17.11) Active confirmed Problem Dysarthria (1882760) 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) Active confirmed Problem Hyperlipidemia (09452539) Other hyperlipidemia (E78.49) Active confirmed Problem Major depression, single episode (91720217) Major depressive disorder, remission status unspecified, unspecified whether recurrent (F32.9) Active confirmed Problem History of supraventricular tachycardia (61145409448221079) History of supraventricular tachycardia (Z86.79) Active confirmed Problem 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 (915034001354261) Coronary artery disease involving twenty[place]nine palms heart, unspecified vessel or lesion type, unspecified whether angina present (I25.10) Active confirmed Problem 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, unspecified severity, 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) Active confirmed Problem Fbzux-ae-bwxdhjc hypoxemic respiratory failure (disorder) (16250698227270715) Acute on chronic hypoxic respiratory failure (J96.21) Active confirmed Vital Signs Heart Rate 81 /min 10/08/2024 pulse ox was wi th 5L Temperature 98.8 degrees Fahrenheit 10/08/2024 puls e ox was with 5L Oximetry 98 10/08/2024 pulse ox was wi th 5L Blood pressure diastolic 54 mm Hg 10/08/2024 pul se ox was with 5L Height 61.5 in 10/08/2024 pulse ox was wi th 5L Blood pressure systolic 106 mm Hg 10/08/2024 puls e ox was with 5L Weight 0 lbs 10/08/2024 pulse ox was wi th 5L BMI 22.3 kg/m2 10/08/2024 pulse ox was wi th 5L Encounters Encounter Location Date Provider Diagnosis [facility] [address] [facility] [address] [place] [address] 06/29/2024 Provider Migration Anxiety F41.9 ; Primary osteoarthritis of hips, bilateral M16.0 and Hemorrhoids, unspecified hemorrhoid type K64.9 [facility] [address] [address] 10/08/2024 [facility] [address] [address] 11/03/2023 Nini Linder Diabetes mellitus ty pe [...] disturbance F02.83 and Depression with anxiety F41.8 [facility] [address] [address] 12/28/2023 Roe Cotto Closed fracture of n corie bone, sequela S02.2XXS ; Primary osteoarthritis of hips, bilateral M16.0 ; Anxiety F41.9 and Hospital discharge follow-up Z09 [facility] [address] [facility] [address] [place] [address] 02/21/2024 Cony Maria COPD exacerbation J4 4.1 and Nasal congestion R09.81 [facility] [address] [facility] [address] [place] [address] 03/21/2024 Cony Gunderson Anemia, unspecified type D64.9 ; Acute on chronic hypoxic respiratory failure J96.21 ; Leukocytosis, unspecified type D72.829 ; Pericardial effusion I31.39 and Hemorrhoids, unspecified hemorrhoid type K64.9 [facility] [address] [address] 07/04/2024 Roe Cotto History of supraventricular tachycardia Z86.79 ; Aspiration pneumonia of left lower lobe due to regurgitated food J69.0 ; Acute on chronic hypoxic respiratory failure J96.21 ; Hospital discharge follow-up Z09 and Yeast infection B37.9 [facility] [address] [address] 08/08/2024 Roe Cotto Memory loss R41.3 ; Chronic obstructive pulmonary disease, unspecified COPD type J44.9 ; Healthcare maintenance Z00.00 ; SVT (supraventricular tachycardia) I47.10 and Encounter for immunization Z23 [facility] [address] [facility] [address] [place] [address] 10/08/2024 Roe Besson [facility] [address] [facility] [address] [place] [address] 11/03/2023 Nini Linder [facility] [address] [address] 11/03/2023 Roe Besson [facility] [address] [address] 11/16/2023 Roe Besson [facility] [address] [place] [address] 12/21/2023 Roe Besson [facility] [address] [place] [address] 03/13/2024 Cony Gunderson [facility] [address] [place] [address] 03/22/2024 Roe Besson [facility] [address] [place] [address] 03/25/2024 Roe Besson [facility] [address] [place] [address] 05/14/2024 Roe Besson [facility] [address] [place] [address] 06/28/2024 Roe Besson [facility] [address] [place] [address] 07/04/2024 Roe Besson [facility] [address] [place] [address] 07/10/2024 Roe Besson Dysphagia, unspecifi ed type R13.10 [facility] [address] [place] [address] 09/09/2024 Roe Besson [facility] [address] [place] [address] 09/30/2024 Roe Besson Assessments Encounter Date Diagnosis (ICD Code) Assessment Notes Treatment Notes Treatment Clinical Notes Section Notes 03/21/2024 Acute on chronic hypoxic respiratory failure (ICD-10 - J96.21) I personally reviewed hospitalization record and discharge summary. On daily Lasix. Finished abx. Encouraged daughter to keep her on 2L NC at all times. She voices understanding. 06/29/2024 Anxiety (ICD-10 - F41.9) 06/29/2024 Primary osteoarthritis of hips, bilateral (ICD-10 - M16.0) 07/04/2024 History of supraventricular tachycardia (ICD-10 - Z86.79) Controlled in hospital with adenosine and metoprolol. HR normal in office today. 08/08/2024 Memory loss (ICD-10 - R41.3) -memory [...] intiiate daily controller inhaler, RTC inc2 month 07/04/2024 Aspiration pneumonia of left lower lobe due to regurgitated food (ICD-10 - J69.0) Due to asymptomatic pneumonia with abrupt onset following choking on food with continued dysphagi; concerned for aspiration pneumonia. Will send for a modified barium swallow with speech therapy ensure no aspirations of food and for futher instructions to prevent recurrent pneumonias. 07/10/2024 Dysphagia, unspecified type (ICD-10 - R13.10) 11/03/2023 HTN (hypertension) (ICD-10 - I10) 11/03/2023 [...] will repeat at FU in 3 months 12/28/2023 Primary osteoarthritis of hips, bilateral (ICD-10 [...] evidence of ataxia worsening from her meds. 02/21/2024 Nasal congestion (ICD-10 - R09.81) 02/21/2024 [...] will review all labs once final. 03/21/2024 Leukocytosis, unspecified type (ICD-10 - D72.829) Likely reactive and due to pna with acute illness and fluid overload while inpatient. I personally will review labs once final. 12/28/2023 Anxiety (ICD-10 - F41.9) 11/03/2023 Chronic obstructive pulmonary disease, unspecified COPD type (ICD-10 - J44.9) 08/08/2024 Healthcare maintenance (ICD-10 - Z00.00) -PCV 21 due -Shingrix Dose 2 due, deferred today -Pt voices that she is no longer interested in cancer screening as these do not align with her goals; otherwise would be due for Cologuard, Mammogram, and LDCT 07/04/2024 Acute on chronic hypoxic respiratory failure (ICD-10 - J96.21) Oxygen initially increased at arrival to ED, now back to baseline O2 level. Continue spirometry at home. 07/04/2024 Hospital discharge follow-up (ICD-10 - Z09) No medication changes made by cardiology team. Personally reviewed H&P and discharge summary as available from hospital discharge documentation. Reviewed pertinent labs and test done in the hospital. Personally reconciled medication. 08/08/2024 SVT (supraventricular tachycardia) (ICD-10 - I47.10) -No chest pain, no palpitations 11/03/2023 GERD without esophagitis (ICD-10 - K21.9) 12/28/2023 Hospital discharge follow-up (ICD-10 - Z09) Meds reviewed... reconciled.. reviewed ER notes 03/21/2024 Pericardial effusion (ICD-10 - I31.39) Keep Cardiology follow-up. Currently has a monitor on. I personally will review all labs once final. 03/21/2024 Hemorrhoids, unspecified hemorrhoid type (ICD-10 - K64.9) At daughter's request, will refill cream. She denies any active bleeding. 08/08/2024 Encounter for immunization (ICD-10 - Z23) -PCV 21 today 11/03/2023 Rheumatoid arthritis without rheumatoid factor, left hand (ICD-10 - M06.042) 07/04/2024 Yeast infection (ICD-10 - B37.9) Yeast infection following high dose antibiotics for PNA. Will prescribe Nystain cream to be applied topically to affected area. 06/29/2024 Hemorrhoids, unspecified hemorrhoid type (ICD-10 - K64.9) 11/03/2023 Rheumatoid arthritis without rheumatoid factor, right [...] Details Provider Name:Roe Cotto, 10/31/2024 10:30:00 AM, [address] [facility], [address], [place], [address], Insurance Providers Payer Name Payer Address Payer Phone Subscriber Number Group Number Insured Name Patient Relationship to Insured Coverage Start Date Coverage End Date [place] [address] [place] [phone] [id number] Margarita Stone Self - patient is the insured MEDICAID EDS [address] [place] [address] [id number] Margarita Stone Self - patient is the insured [employer] [address] [place] [address] [address] [place], [place] [address] ACL LongviewMargarita hernández Self - patient is the insured Medications [...] on May/2018 Surgical History Surgery Date(Month/Year) CABG 2013 hysterectomy rt eye- cataract surgery 10/2023 Hospitalization History Reason Date(Month/Year) [facility], Dehydration 12/[address] [facility] 06/27-07/[address] [facility]- Low oxygen, pneumonia left lung, fl uid around heart. 03/11/24-03/13/24 [place] 01/2023 [facility]i 05/2019
--- NOTE | 2024-10-08 18:25 | CT_ITS ---
PROCEDURE INFORMATION: Exam: CT Chest Without Contrast; Diagnostic Exam date and time: 10/08/2024 7:13 PM Age: 73 years old Clinical indication: Other: F/u recent pna TECHNIQUE: Imaging protocol: Diagnostic computed tomography of the chest without contrast. Radiation optimization: All CT scans at this facility use at least one of these dose optimization techniques: automated exposure control; mA and/or kV adjustment per patient size (includes targeted exams where dose is matched to clinical indication); or iterative reconstruction. COMPARISON: CT ANGIO CHEST PE PROTOCOL 09/24/2024 9:14 AM FINDINGS: Lungs: See Bones/joints finding. Pleural spaces: See Bones/joints finding. Heart: Unremarkable. No cardiomegaly. No pericardial effusion. Lymph nodes: Mildly enlarged mediastinal lymph nodes again demonstrated in the paratracheal, precarinal and prevascular region that are not significantly changed in size from September 24, 2024. Limited evaluation of the eulalio without intravenous contrast. Calcified right hilar lymph node. Vasculature: See Bones/joints finding. Adrenal glands: Mild bilateral adrenal hyperplasia. Bones/joints: Previous median sternotomy. Advanced three-vessel coronary artery calcification. Extensive calcification within the thoracic aorta and involving the great vessels. No large thoracic aortic aneurysm is appreciated. Pulmonary emphysema. Narrowing of the proximal right middle lobe bronchus. The consolidation and collapse within the right middle lobe has shown mild improvement from September 2024. There is patchy infiltration within the posterior right upper lobe along the major fissure and within the adjacent superior segment of the right lower lobe. There are very mild infiltrative changes within the anterior right upper lobe on this examination. There is a calcified granuloma in the right middle lobe. There is mild atelectasis within the lung bases bilaterally. The lower lingula and left lower lobe have shown significant improvement from September 24, 2024. Moderate T12 compression fracture again demonstrated. Soft tissues: Unremarkable. IMPRESSION: 1. Decreased consolidation and collapse within the right middle lobe. Significant decrease in consolidation and collapse within the lingula and posterior left lower lobe. 2. Mild increase in patchy infiltrative changes in the posterior right upper lobe along the major fissure and the adjacent superior segment of the right lower lobe. 3. No other significant change from September 24, 2024. There is underlying pulmonary emphysema and narrowing of the right middle lobe bronchus. 4. Other chronic findings as above. Continued follow-up is recommended to assess for resolution as a post-obstructive process is a consideration. COMMENTS: The presence of pulmonary emphysema on CT is an independent risk factor for lung cancer. In the absence of a history or active diagnosis of lung cancer, it is recommended that this patient with emphysema be evaluated for enrollment in a low dose CT lung cancer screening program.
--- NOTE | 2024-10-08 18:29 | ECG_ITS ---
APPROVED REPORT Exam: Resting ECG HR:69 bpm ECG Measurements Heart Rate 69 AXES DE 192 P 62 QRSd 97 QRS -85 QT 350 T 81 QTc 368 Conclusion SINUS RHYTHM INDETERMINATE AXIS LOW QRS VOLTAGE IN PRECORDIAL LEADS [QRS DEFLECTION < 1.0 mV IN CHEST LEADS] POSSIBLE ANTERIOR MYOCARDIAL INFARCTION , PROBABLY OLD [30 ms Q WAVE IN V3/V4, OR R < 0.2 mV IN V4] INFERIOR MYOCARDIAL INFARCTION , OF INDETERMINATE AGE [40+ ms Q WAVE AND/OR ST/T ABNORMALITY IN II/aVF] ABNORMAL ECG UNCONFIRMED REPORT Electronically signed by : Steven Torres, 10/08/2024 23:28:51
[2024-10-08 18:40] LABS: Hematocrit 32.7 % (37.0-47.0); Hemoglobin 10.1 g/dL (12.2-16.2); Immature Granulocytes % 0.8 %; Mean Corpuscular HGB Conc 30.9 g/dL (31.8-35.4); Mean Corpuscular Hemoglobin 27.4 pg (27.0-31.2); Mean Corpuscular Volume 88.9 fl (81-99); Nucleated Red Blood Cells % 0 %; Platelet Count 471 K/mm3 (142-424); Red Blood Count 3.68 M/mm3 (4.20-5.40); Red Cell Distribution Width-SD 51.8 fL; White Blood Count 16.4 K/mm3 (4.8-10.8)
--- NOTE | 2024-10-08 18:45 | HMH.EDGENADL ---
Discharge Plan Disposition Patient Disposition: Home, Self-Care Prescriptions Prescriptions: No Action atorvastatin 80 mg tablet 80 mg PO HS aspirin 325 mg tablet 325 mg PO DAILY multivitamin [Daily Multi-Vitamin] Tablet 1 tab PO DAILY escitalopram oxalate 10 mg tablet 10 mg PO DAILY Patient Comments: TAKE 1 TABLET BY MOUTH ONCE DAILY. pantoprazole 40 mg tablet,delayed release (DR/EC) 40 mg PO DAILY Patient Comments: ONE (1) TAB(S) ORALLY ONCE A DAY 90 DAYS cholecalciferol (vitamin D3) 25 mcg (1,000 unit) capsule 25 mcg PO HS memantine 10 mg tablet 10 mg PO BID Patient Comments: TAKE 1 TABLET BY MOUTH TWICE DAILY. donepezil 5 mg tablet 5 mg PO DAILY isosorbide mononitrate 30 MG tablet 30 mg PO DAILY lisinopril 40 mg tablet 40 mg PO BID metformin 1,000 mg tablet 1,000 mg PO BID Patient Comments: TAKE 1 TABLET BY MOUTH TWICE DAILY gabapentin 100 mg capsule 100 mg PO BID Patient Comments: TAKE 1 CAPSULE BY MOUTH TWICE DAILY lorazepam 0.5 mg tablet 0.5 mg PO HS furosemide 20 mg tablet 20 mg PO DAILY 30 Days Qty: 0 0RF Patient Comments: TAKE 1 TABLET BY MOUTH DAILY. magnesium oxide 400 mg (241.3 mg magnesium) tablet 400 mg PO BID Patient Comments: TAKE 1 TABLET BY MOUTH TWICE DAILY ferrous sulfate [FeroSul] 325 mg (65 mg iron) tablet 325 mg PO DAILY Patient Comments: TAKE ONE (1) TABLET BY MOUTH DAILY ,TAKE WITHVITAMINC amlodipine 5 MG tablet 5 mg PO DAILY metoprolol succinate 100 mg tablet extended release 24 hr 100 mg PO BID 30 Days Qty: 60 0RF Patient Comments: TAKE 1 TABLET BY MOUTH ONCE DAILY Referrals Follow up/Referrals: Roe Gleason MD [Primary Care Provider, Internal Medicine] - See instructions Activity Restrictions/Add. Instructions Additional Instructions/Restrictions: Overall your condition seems to be significantly improved from your recent hospitalization including CT images. As discussed there are some inflammatory areas where your pneumonia is improving which may be lagging clinically. However this looks much improved from recent CT. Your white blood cell count is mildly elevated in comparison with recently being discharged and your potassium was mildly elevated at 5.5. I would like you to have your potassium rechecked within the next 24 to 48 hours. Additionally after shared decision making I feel that your overall clinical status is improving especially given the fact that your symptoms are significant improved and that you feel well please return with any worsening shortness of breath fevers or other concerns otherwise closely follow-up with your primary care doctor in 1 to 2 days. Clinical Impressions Clinical Impression: Hypoxia, Pneumonia, Acute hyperkalemia Print Language Print Language: Spanish Discharge ED Provider: Falguni Torres General Adult HPI General Chief complaint: Shortness of Breath/Dyspnea Stated complaint: cough,whezzy,sent by Victorino Time Seen by Provider: 10/08/24 18:16 Mode of Arrival: Wheelchair Source of Information: Patient and Relative Description of Symptoms (Recalled from ER Triage Doc. by RN): Pt presents for evaluation of SOA that has progressively become worse over the last couple of days. Pt reports low 80s o2 sat on 4L o2 at home. Pt was recently admitted to the ICU at [facility] for [place] and had required hi-flow o2 History of Present Illness HPI narrative: Patient is a 73-year-old female presenting today for concern of for hypoxemia. She was recently admitted in the hospital actually saw her in the emergency department where she presented with acute hypoxic respiratory failure had multifocal pneumonia and was on high flow nasal cannula at 100% FiO2 and 40 L. She was critically ill at that point ultimately was admitted to the hospital given IV antibiotics diuresed over time and improved to the point where she was on 4 L nasal cannula. She followed up with a primary care doctor today and there were concerned about worsening hypoxemia and recurrent pneumonia. Therefore the came to the emergency department. Patient has no complaints and states she feels good at the moment. She is on 4 L at home oxygen saturations at 86% prior to my evaluation. Related Data Home Medications ?Medication ?Instructions ?Recorded ?Confirmed atorvastatin 80 mg tablet 80 mg PO HS 04/05/17 09/24/24 aspirin 325 mg tablet 325 mg PO DAILY 09/14/17 09/24/24 isosorbide mononitrate 30 mg 30 mg PO DAILY 03/26/18 09/24/24 tablet,extended release 24 hr amlodipine 5 mg tablet 5 mg PO DAILY 05/20/19 09/24/24 cholecalciferol (vitamin D3) 25 25 mcg PO HS 03/13/20 09/24/24 mcg (1,000 unit) capsule memantine 10 mg tablet 10 mg PO BID 09/18/20 09/24/24 donepezil 5 mg tablet 5 mg PO DAILY 05/21/21 09/24/24 multivitamin (Daily Multi-Vitamin 1 tab PO DAILY 12/03/21 09/24/24 tablet) escitalopram oxalate 10 mg tablet 10 mg PO DAILY 06/17/22 09/24/24 lisinopril 40 mg tablet 40 mg PO BID 01/21/23 09/24/24 metformin 1,000 mg tablet 1,000 mg PO BID 01/22/23 09/24/24 pantoprazole 40 mg tablet,delayed 40 mg PO DAILY 02/21/24 09/24/24 release gabapentin 100 mg capsule 100 mg PO BID 03/11/24 09/24/24 lorazepam 0.5 mg tablet 0.5 mg PO HS 03/11/24 09/24/24 ferrous sulfate 325 mg (65 mg 325 mg PO DAILY 06/27/24 09/24/24 iron) tablet (FeroSul) magnesium oxide 400 mg (241.3 mg 400 mg PO BID 06/27/24 09/24/24 magnesium) tablet Previous Rx's ?Medication ?Instructions ?Recorded furosemide 20 mg tablet 20 mg PO DAILY 30 days #0 tabs 03/13/24 metoprolol succinate 100 mg 100 mg PO BID 30 days #60 tabs 09/30/24 tablet,extended release 24 hr Allergies Allergy/AdvReac Type Severity Reaction Status Date / Time Iodinated Contrast Media Allergy Mild Unknown Verified 09/24/24 12:10 allergy reaction naproxen Allergy Mild Unknown Verified 09/24/24 12:10 allergy reaction PFSH PFSH Disclaimer: The information contained in this section may have been updated after the patient was seen, as this information can be updated by other users. Medical History Pericardial effusion Diabetes mellitus Hyperlipidemia Hypertensive heart disease Hypertension CAD (coronary artery disease) Cataract SVT (supraventricular tachycardia) COPD exacerbation COPD (chronic obstructive pulmonary disease) Respiratory failure with hypoxia History of CVA (cerebrovascular accident) Vomiting Weight loss Lumbar stenosis Thoracic compression fracture Cerebral atrophy Sepsis UTI (urinary tract infection) CAP (community acquired pneumonia) Carotid artery stenosis Tobacco dependence syndrome Coronary arteriosclerosis Surgical History History of coronary artery bypass graft S/P CABG x 3 Family History Diabetes Family history of hypertension Family history of hyperlipidemia Parkinsons Social History Smoking Status: Never smoker alcohol intake: never counseling provided: none substance use type: denies use current occupational status: retired Travel in the last 8 weeks?: Inside the [place] household members: family housing: house caffeine: Yes Have you lived/traveled outside [place] in past 30 days?: No Contact w/someone who lives/traveled outside [place] past 30 days?: No Exposure to someone with infectious disease in past 14 days?: No Do you have a fever (greater than 100.4 F or 38 C)?: No Have you tested positive for COVID-19?: No Exposed to someone with COVID-19 in past 14 days?: No Do you have a sore throat?: No Do you have a cough?: No Do you have any weakness?: No Do you have any diarrhea?: No Are you experiencing any unusual bleeding?: No Do you have any muscle aches/pain?: No Do you have any abdominal pain?: No Are you experiencing loss of taste or smell?: No Other Medical History Have you received the Flu Vaccine for this season: No Have you received the Pneumonia Vaccine: No ROS Obtained: Yes All systems reviewed & no additional complaints except as documented Physical Exam General General appearance: alert and in no apparent distress Respiratory Respiratory exam: Present normal lung sounds bilaterally and other (4 L nasal cannula oxygen saturations 86% on 4 L); Absent respiratory distress Cardiovascular Cardiovascular exam: Present regular rate and normal rhythm Abdominal Exam Abdominal exam: Present soft and distention Neurological Exam Neurological exam: Present alert and oriented X3 Medical Decision Making Medical Records Screening: Per USPSTF and CDC recommendations, given the prevalence of disease in our region, it is our hospital?s policy to screen for HIV and viral Hepatitis for all patients aged 18 and over and those with ongoing risk factors. Jose Inquiry Pt receiving controlled substance: No Vital Signs: 10/08/24 18:17 Temperature 98.0 F Temperature Source Oral Pulse Rate [Right] 80 Respiratory Rate 18 Blood Pressure [Right Arm] 169/59 H Blood Pressure Mean [Right Arm] 95 Blood Pressure Source [Right Arm] Automatic Cuff Blood Pressure Position [Right Arm] Sitting 02 Sat by Pulse Oximetry 86 L Oxygen Delivery Method Nasal Cannula Oxygen Flow Rate (LPM) 4 Lab Data Lab results reviewed: Yes I reviewed the patient's lab results. Lab Results 10/08/24 18:25: WBC 16.4 H, RBC 3.68 L, Hgb 10.1 L, Hct 32.7 L, MCV 88.9, MCH 27.4, MCHC 30.9 L, RDW 15.9, Plt Count 471 H, MPV 10.2, Neut % (Auto) 74.9, Lymph % (Auto) 17.6, [place] % (Auto) 5.3, Eos % (Auto) 0.9, Baso % (Auto) 0.5, Neut # (Auto) 12.3 H, Lymph # (Auto) 2.9, [place] # (Auto) 0.9, Eos # (Auto) 0.2, Baso # (Auto) 0.1, Sodium 137, Potassium 5.5 H, Chloride 90 L, Carbon Dioxide 35 H, Anion Gap 17.5 H, BUN 17, Creatinine 0.70, Estimated Creat Clear 42, Estimated GFR 82, Est GFR ( Amer) 99, Glucose 202 H, Calcium 8.9, Total Bilirubin 0.9, AST 54 H, ALT 23, Alkaline Phosphatase 80, Troponin I 0.01, NT-Pro-B Natriuret Pep 1390 H, Total Protein 6.8, Albumin 3.6, Globulin 3.2, Albumin/Globulin Ratio 1.1, Procalcitonin 0.066 10/08/24 18:25 10/08/24 18:25 Orders (Tests/Meds): ORDERS Category Date Time Status CT chest wo con Stat Cat Scan 10/08/24 18:25 Taken BNP [NT Pro Brain Natriuretic Pep.] Stat Lab 10/08/24 18:25 Completed CBC w/Auto Diff [Complete Blood Count Auto Diff] Stat Lab 10/08/24 18:25 Completed CMP [Comprehensive Metabolic Panel] Stat Lab 10/08/24 18:25 Completed Lactate Venous Stat Lab 10/08/24 18:25 Ordered Procalcitonin Stat Lab 10/08/24 18:25 Completed Rapid PCR Covid and Flu A/B Stat Lab 10/08/24 19:26 Received Trop I [Troponin I] Stat Lab 10/08/24 18:25 Completed Troponin I Q3H Lab 10/08/24 21:30 Ordered Troponin I Q3H Lab 10/09/24 00:30 Ordered Blood Culture Stat Micro 10/08/24 19:04 Received Medical Decision Narrative: Patient is a 73-year-old female with above history and physical. I reviewed her records and my recent evaluation of the patient she looks much better than last time I saw her. However she is still mildly hypoxic on 4 L. Differential includes recurrence of some fluid versus worsening pneumonia versus just residual disease. At the moment she is not tachypneic or tachycardic or febrile. Will reassess shortly after the initial workup is performed including a noncontrasted CT scan. Reassessment 736 patient remains very comfortable breathing normally no distress states she feels well oxygen saturations in the mid 90s on [address] scan was performed I personally interpreted which does still show some inflammatory changes but likely lagging clinically but also significantly improved from a radiographic standpoint in comparison with most recent CT scan. Overall I feel that the patient is significantly clinically improving. Also patient does have a mild elevation in her white blood cell count at a proportion to her most recent white blood cell on discharge which was 12-16 today. Also has a mildly elevated platelet of 471 may have an acute phase reactant elevation secondary to worsening inflammatory changes but overall I do not believe that is the case at the moment. Additionally she has a mild hyperkalemia at 5.5. She will have this rechecked in 24 to 48 hours. I had an extensive discussion with family member at the bedside and given the fact that she feels much better that her radiography is significantly improved despite the laboratory abnormalities that bring the patient in the hospital brings more harm than benefit at this point. Will not treat with further antibiotics at this point I have advised that they keep a very close eye on this patient and specifically her symptoms including worsening subjective shortness of breath feeling ill such as fevers or chills etc. Of also recommended that they follow-up very closely with her primary care doctor in 24 to 48 hours for potassium recheck but also clinical reassessment. Patient is on the fence for hospitalization and I did consider this. But at the moment and with shared decision making I feel that the harm outweighs any benefit in this particular situation. Overall family member at the bedside and the patient are agreeable to this plan. Return precautions have assessed and patient discharged in stable condition. Patient did run out of her oxygen and we will have to resupply the oxygen tank. An addendum will be added if we are unable to get this tonight and if she needs to be admitted as result of this. Procedures Miscellaneous Procedure Procedure Performed: Ultrasound-guided IV Indication difficult IV access Patient was placed in the supine position was prepped and draped in sterile fashion. 20-gauge 48 mm Angiocath was used with axial and long axis planes on the ultrasound under direct visual guidance. The tip of the needle was observed being inserted directly into the vein itself and catheter was advanced under direct guidance. No significant complications. Critical Care Critical Care Time Critical Care Time: No
[2024-10-08 19:01] LABS: Alanine Aminotransferase 23 U/L (12-78); Albumin Level 3.6 g/dl (3.5-5.0); Albumin/Globulin Ratio 1.1 (1.1-1.8); Alkaline Phosphatase 80 U/L (38-126); Anion Gap 17.5 mEq/L (5-15); Aspartate Amino Transferase 54 U/L (14-36); Bilirubin,Total 0.9 mg/dl (0.2-1.3); Blood Urea Nitrogen 17 mg/dl (7-17); Calcium 8.9 mg/dl (8.4-10.2); Carbon Dioxide 35 mmol/L (22.0-30.0); Chloride 90 mmol/L (98-107); Creatinine Clearance Estimated 42 mL/min (50-200); Creatinine,Serum 0.70 mg/dl (0.52-1.04); Estimated Glomerular Filt Rate 82 ml/min (>60); GFR (African American) 99 ML/MIN (>60); Globulin 3.2 g/dL (1.3-3.2); Glucose 202 mg/dl (74-100); Potassium 5.5 mmoL/L (3.5-5.1); Sodium 137 mmol/L (136-145); Total Protein,Serum 6.8 g/dl (6.3-8.2)
[2024-10-08 19:04] VITALS: BP 127/54; PULSE 73; RESP 22; O2SAT 92
--- NOTE | 2024-10-08 19:09 | PC.NURSE ---
1903 USIV started to right AC by Brian MORGAN. 1 set of blood cultures obtained due to patient being a poor IV stick.
[2024-10-08 19:13] LABS: NT Pro Brain Natriuretic Pep. 1390 pg/mL (0-125)
[2024-10-08 19:17] LABS: Procalcitonin 0.066 ng/mL (0.0-2.0)
[2024-10-08 19:21] LABS: Troponin I 0.01 ng/ml (0.00-0.034)
--- NOTE | 2024-10-08 19:28 | PC.NURSE ---
aleja hooks to bedside.
[2024-10-08 19:29] LABS: Coronavirus 19, PCR Not Detected (NotDetected); Influenza A, PCR Not Detected (NotDetected); Influenza B, PCR Not Detected (NotDetected)
[2024-10-08 19:31] VITALS: BP 118/52
--- NOTE | 2024-10-08 19:34 | PC.NURSE ---
Called hilary and left a message. awaiting a call back at this time .
[2024-10-08 20:01] VITALS: BP 137/60; PULSE 74; RESP 19; O2SAT 93
--- NOTE | 2024-10-08 20:04 | PC.NURSE ---
Imtiaz arrived with tank 20:03
[2024-10-08 20:17] VITALS: BP 137/60; PULSE 74; RESP 18; TEMP 36.7; O2SAT 93
[2024-10-09 23:05] LABS: Acinetobacter calcoaceticus-ba Not Detected; Bacteroides fragilis Not Detected; Candida auris Not Detected; Candida glabrata Not Detected; Enterobacterales Not Detected; Enterococcus faecalis Not Detected; Enterococcus faecium Not Detected; Klebsiella aerogenes Not Detected; Klebsiella pneumoniae grp Not Detected; Proteus spp. Not Detected; Salmonella spp. Not Detected; Serratia marcescens Not Detected; Staphylococcus lugdunensis Not Detected; Staphylococcus spp. Detected; Stenotrophomonas maltophilia Not Detected; Streptococcus agalactiae(GrpB) Not Detected; Streptococcus pyogenes Group A Not Detected; Streptococcus spp. Not Detected; mecA/C Detected
[2024-10-09 23:18] LABS: Staphylococcus epidermidis Detected
--- NOTE | 2024-10-09 23:34 | PC.NURSE ---
LAB CALLED BLOOD CULTURE RESULTS, SPOKE WITH , VAZQUEZ AND RECOMMENDED WE CALL PATIENT IN THE MORNING. STATED IT WAS MOST LIKELY A CONTAMINANT TO JUST EVALUATE PT CONDITION IN THE MORNING
--- NOTE | 2024-10-10 11:17 | PC.NURSE ---
I attempted to contact the pt about her blood culture results. I was not able to reach her. Will attempt again in a few hours.
--- NOTE | 2024-10-10 17:51 | PC.NURSE ---
I attempted to call the pt regarding her blood culture results. I was unable to reach her.
--- NOTE | 2024-10-12 10:29 | PC.NURSE ---
I attempted to call the pt about her prelim blood culture results. unable to reach her at this time.
--- NOTE | 2024-10-24 08:18 | PC.NURSE ---
Blood culture results reviewed by Dr. Meyers. No new orders received.
== END 2024-10-08 20:25 | disposition home or self-care (01) ==
PROVIDERS: Emergency Provider Student in an Organized Health Care Education/Training Program; PCP Internal Medicine Adolescent Medicine
DX: R09.02 Hypoxemia (principal); J18.9 Pneumonia, unspecified organism; E87.5 Hyperkalemia; J44.9 Chronic obstructive pulmonary disease, unspecified; Z87.891 Personal history of nicotine dependence; Z99.81 Dependence on supplemental oxygen
CPT/HCPCS: 71250; 80053; 83880; 84145; 84484; 85025; 87040; 87077; 87154; 87636; 93005; 99284

== ENCOUNTER 2025-01-01 22:34 | Observation (INO) | payer MEDICARE, MEDICAID, SELFPAY ==
[2025-01-01 22:35] VITALS: BP 138/78; PULSE 64; RESP 18; TEMP 36.6; O2SAT 91; BMI 21.2
[2025-01-01 22:41] VITALS: O2SAT 92
--- NOTE | 2025-01-01 22:59 | HMH.EDGENADL ---
Discharge Plan Disposition Patient Disposition: Admitted Clinical Impressions Clinical Impression: Left lower lobe pneumonia, Respiratory failure with hypoxia and hypercapnia Discharge ED Provider: Bruno Kraft General Adult HPI General Chief complaint: Shortness of Breath/Dyspnea Stated complaint: shortness of breath Time Seen by Provider: 01/01/25 22:59 Mode of Arrival: Ambulatory Source of Information: Patient Description of Symptoms (Recalled from ER Triage Doc. by RN): Patient has no complaint. States her family said her O2 was low, and made her come to the ER. Patient is on 3lpm normal.Inital O2 81% Patient was recently discharged from [facility] ICU for pnemonia. States it was recent, but unsure exact time time. Rajeev THOMPSON bumped O2 to 4lpm with an improvement to 93%. History of Present Illness HPI narrative: 74-year-old female with history of COPD and coronary artery disease, on 2 L nasal cannula at baseline, presents for hypoxia. Family reports that she has had more a cough at home but she is unable to clear it. Her oxygen was in the 50s at home, improved slightly after a breathing treatment. On arrival O2 was 81. Improved to 93% on 4 L nasal cannula. Patient is not in significant respiratory distress. Reported fever at home. Related Data Home Medications ?Medication ?Instructions ?Recorded ?Confirmed atorvastatin 80 mg tablet 80 mg PO HS 04/05/17 10/16/24 aspirin 325 mg tablet 325 mg PO DAILY 09/14/17 10/16/24 isosorbide mononitrate 30 mg 30 mg PO DAILY 03/26/18 10/16/24 tablet,extended release 24 hr amlodipine 5 mg tablet 5 mg PO DAILY 05/20/19 10/16/24 cholecalciferol (vitamin D3) 25 25 mcg PO HS 03/13/20 10/16/24 mcg (1,000 unit) capsule memantine 10 mg tablet 10 mg PO BID 09/18/20 10/16/24 donepezil 5 mg tablet 5 mg PO DAILY 05/21/21 10/16/24 multivitamin (Daily Multi-Vitamin 1 tab PO DAILY 12/03/21 10/16/24 tablet) escitalopram oxalate 10 mg tablet 10 mg PO DAILY 06/17/22 10/16/24 lisinopril 40 mg tablet 40 mg PO BID 01/21/23 10/16/24 metformin 1,000 mg tablet 1,000 mg PO BID 01/22/23 10/16/24 pantoprazole 40 mg tablet,delayed 40 mg PO DAILY 02/21/24 10/16/24 release gabapentin 100 mg capsule 100 mg PO BID 03/11/24 10/16/24 lorazepam 0.5 mg tablet 0.5 mg PO HS 03/11/24 10/16/24 ferrous sulfate 325 mg (65 mg 325 mg PO DAILY 06/27/24 10/16/24 iron) tablet (FeroSul) magnesium oxide 400 mg (241.3 mg 400 mg PO BID 06/27/24 10/16/24 magnesium) tablet Previous Rx's ?Medication ?Instructions ?Recorded furosemide 20 mg tablet 20 mg PO DAILY 30 days #0 tabs 03/13/24 metoprolol succinate 100 mg 100 mg PO BID 30 days #60 tabs 09/30/24 tablet,extended release 24 hr ipratropium 0.5 mg-albuterol 3 mg 3 ml inhalation QID 90 days #270 mL 10/16/24 (2.5 mg base)/3 mL nebulization soln Allergies Allergy/AdvReac Type Severity Reaction Status Date / Time Iodinated Contrast Media Allergy Mild Unknown Verified 10/16/24 11:49 allergy reaction naproxen Allergy Mild Unknown Verified 10/16/24 11:49 allergy reaction PFSH PFS Disclaimer: The information contained in this section may have been updated after the patient was seen, as this information can be updated by other users. Medical History (Updated 10/16/24 @ 15:02 by Claudio Wright MD) Kyphosis Chronic respiratory failure with hypoxia Pulmonary emphysema History of smoking 30 or more pack years Pericardial effusion Diabetes mellitus Hyperlipidemia Hypertensive heart disease Hypertension CAD (coronary artery disease) Cataract SVT (supraventricular tachycardia) COPD exacerbation COPD (chronic obstructive pulmonary disease) Respiratory failure with hypoxia History of CVA (cerebrovascular accident) Vomiting Weight loss Lumbar stenosis Thoracic compression fracture Cerebral atrophy Sepsis UTI (urinary tract infection) CAP (community acquired pneumonia) Carotid artery stenosis Tobacco dependence syndrome Coronary arteriosclerosis Surgical History History of coronary artery bypass graft S/P CABG x 3 Family History Other Diabetes Family history of hyperlipidemia Family history of hypertension Parkinsons Social History Smoking Status: Never smoker alcohol intake: never counseling provided: none substance use type: denies use current occupational status: retired Travel in the last 8 weeks?: Inside the [place] household members: family housing: house caffeine: Yes Have you lived/traveled outside [place] in past 30 days?: No Contact w/someone who lives/traveled outside [place] past 30 days?: No Exposure to someone with infectious disease in past 14 days?: No Do you have a fever (greater than 100.4 F or 38 C)?: No Have you tested positive for COVID-19?: No Exposed to someone with COVID-19 in past 14 days?: No Do you have a sore throat?: No Do you have a cough?: No Do you have any weakness?: No Do you have any diarrhea?: No Are you experiencing any unusual bleeding?: No Do you have any muscle aches/pain?: No Do you have any abdominal pain?: No Are you experiencing loss of taste or smell?: No Other Medical History Have you received the Flu Vaccine for this season: No Have you received the Pneumonia Vaccine: Yes ROS Obtained: Yes All systems reviewed & no additional complaints except as documented Physical Exam General General appearance: alert and in no apparent distress Head Head exam: atraumatic and normocephalic Eye Eye exam: Present normal appearance, PERRL and EOMI ENT ENT exam: Present normal oropharynx and normal external ear exam Neck Neck exam: Present normal inspection and full ROM Chest Chest inspection: Present normal inspection and symmetric chest wall rise; Absent tenderness Respiratory Respiratory exam: Absent normal lung sounds bilaterally (Crackles and rhonchi in the left lower lobe) or respiratory distress Cardiovascular Cardiovascular exam: Present regular rate and normal rhythm Abdominal Exam Abdominal exam: Present soft; Absent distention, tenderness or guarding Extremities Exam Extremities exam: Present normal inspection; Absent edema or joint swelling Back Exam Back exam: Present normal inspection; Absent tenderness Neurological Exam Neurological exam: Present alert and oriented X3; Absent motor sensory deficit Psychiatric Psychiatric exam: Present normal affect and normal mood Skin Skin exam: Present warm, dry and normal color Lymphatic Lymphatic Findings: no adenopathy Medical Decision Making Medical Records Medical records reviewed: Yes I reviewed the patient's medical records. Screening: Per USPSTF and CDC recommendations, given the prevalence of disease in our region, it is our hospital?s policy to screen for HIV and viral Hepatitis for all patients aged 18 and over and those with ongoing risk factors. Jose Inquiry Pt receiving controlled substance: No Jose was queried for this patient: No Vital Signs: 01/01/25 22:35 01/01/25 22:41 01/01/25 23:31 Temperature 97.8 F Temperature Source Oral Pulse Rate 60 Pulse Rate [Right] 64 Respiratory Rate 18 17 Blood Pressure 120/45 L Blood Pressure [Right Arm] 138/78 Blood Pressure Mean 70 Blood Pressure Mean [Right Arm] 98 02 Sat by Pulse Oximetry 91 L 92 L 94 L Oxygen Delivery Method Nasal Cannula Nasal Cannula Nasal Cannula Oxygen Flow Rate (LPM) 4 4 3 01/02/25 00:00 Temperature Temperature Source Pulse Rate 59 L Pulse Rate [Right] Respiratory Rate 19 Blood Pressure 126/46 L Blood Pressure [Right Arm] Blood Pressure Mean 72 Blood Pressure Mean [Right Arm] 02 Sat by Pulse Oximetry 94 L Oxygen Delivery Method Nasal Cannula Oxygen Flow Rate (LPM) 3 Lab Data Lab results reviewed: Yes I reviewed the patient's lab results. Lab Results 01/01/25 23:01: WBC 11.6 H, RBC 3.77 L, Hgb 11.1 L, Hct 33.7 L, MCV 89.4, MCH 29.4, MCHC 32.9, RDW 15.3, Plt Count 290, MPV 10.5 H, Neut % (Auto) 71.4, Lymph % (Auto) 21.0, [place] % (Auto) 6.4, Eos % (Auto) 0.6, Baso % (Auto) 0.3, Neut # (Auto) 8.3 H, Lymph # (Auto) 2.5, [place] # (Auto) 0.8, Eos # (Auto) 0.1, Baso # (Auto) 0.0, VBG pH 7.31, VBG pCO2 55.2 H, VBG pO2 37.0, VBG HCO3 27.3, VBG Total CO2 29.0 H, VBG O2 Saturation 60.4, VBG Base Excess 1.1, VBG Lactic Acid 3.2 H, Sodium 137, Potassium 3.6, Chloride 92 L, Carbon Dioxide 35 H, Anion Gap 13.6, BUN 22 H, Creatinine 1.00, Estimated Creat Clear 42, Estimated GFR 54 L, Est GFR ( Amer) 66, Glucose 91, Calcium 8.0 L, Total Bilirubin 0.7, AST 35, ALT 27, Alkaline Phosphatase 150 H, Troponin I < 0.01, NT-Pro-B Natriuret Pep 5290 H, Total Protein 5.8 L, Albumin 3.1 L, Globulin 2.7, Albumin/Globulin Ratio 1.1 01/01/25 23:12: SARS-CoV-2 (PCR) Not detected, Influenza A Untype (PCR) Not detected, Influenza Type B (PCR) Not detected 01/01/25 23:01 01/01/25 23:01 Orders (Tests/Meds): ED MEDICATIONS Generic Name Dose Route Start Last Admin Trade Name Freq PRN Reason Stop Dose Admin Acetaminophen 650 mg 01/02/25 00:28 Acetaminophen 325mg Tab PO 02/01/25 00:27 Q4HP PRN Fever or Mild Pain (1-3) Hydrocodone Bitart/Acetaminophen 1 tab 01/02/25 00:28 Hydrocodone/Apap 5/325 Mg Tablet PO 02/01/25 00:27 Q4HP PRN Mild to Moderate Pain (1-6) Albuterol/Ipratropium 3 ml 01/02/25 06:00 Ipratropium/Albuterol 3 Ml Neb IH 02/01/25 05:59 Q6RT [facility] Azithromycin 250 mg 01/02/25 09:00 Azithromycin 250mg Tablet PO 01/12/25 08:59 DAILY [facility] Furosemide 40 mg 01/02/25 00:11 01/02/25 00:28 Furosemide 40mg/4ml Vial IV 01/02/25 00:12 40 mg ONCE ONE Administration Furosemide 40 mg 01/02/25 09:00 Furosemide 40mg/4ml Vial IV 02/01/25 08:59 DAILY [facility] Heparin Sodium (Porcine) 5,000 unit 01/02/25 09:00 Heparin Sodium 5,000 Unit/Ml Vial SUBCUT 02/01/25 08:59 BID [facility] Ceftriaxone Sodium 1 gm/ 50 mls @ 100 mls/hr 01/02/25 09:30 Sodium Chloride IV 01/12/25 09:29 Q24H [facility] Insulin Human Lispro 0 unit 01/02/25 06:00 Humalog 100 Units/Ml 10ml Vial (Ssi) SUBCUT 02/01/25 05:59 ACHS [facility] Protocol Ondansetron HCl 4 mg 01/02/25 00:28 Ondansetron 4mg/2ml Vial IV 02/01/25 00:27 Q8HP PRN Nausea Prednisone 40 mg 01/02/25 09:00 Prednisone 20mg Tab PO 02/01/25 08:59 DAILY [facility] Discontinued Medications Generic Name Dose Route Start Last Admin Trade Name Freq PRN Reason Stop Dose Admin Albuterol/Ipratropium 3 ml 01/01/25 23:59 01/02/25 00:29 Ipratropium/Albuterol 3 Ml Neb IH 01/02/25 00:00 3 ml ONCE ONE Administration Ceftriaxone Sodium 1 gm/ 50 mls @ 100 mls/hr 01/01/25 23:59 01/02/25 00:29 Sodium Chloride IV 01/02/25 00:28 100 mls/hr ONCE ONE Administration Azithromycin 500 mg/ Sodium 250 mls @ 250 mls/hr 01/02/25 00:00 01/02/25 00:28 Chloride IV 01/02/25 00:01 250 mls/hr ONCE ONE Administration ORDERS Category Date Time Status CXR --portable [XR chest portable] Stat Exams 01/01/25 23:08 Taken BNP [NT Pro Brain Natriuretic Pep.] Stat Lab 01/01/25 23:01 Completed CBC w/Auto Diff [Complete Blood Count Auto Diff] Stat Lab 01/01/25 23:01 Completed CMP [Comprehensive Metabolic Panel] Stat Lab 01/01/25 23:01 Completed Rapid PCR Covid and Flu A/B Stat Lab 01/01/25 23:12 Completed Troponin I Q3H Lab 01/01/25 23:01 Completed Troponin I Q3H Lab 01/02/25 02:15 Ordered Blood Culture Stat Micro 01/02/25 00:16 Received VBG [Venous Blood Gas] Stat RT 01/01/25 23:01 Completed ECG Data Tracing #1: I reviewed this ECG and interpreted as documented below: Sinus rhythm with first-degree AV block, ventricular rate of 62, no significant ST elevation ECG initial impression date: 01/01/25 ECG initial impression time: 23:18 Medical Decision Narrative: 74-year-old female with history of COPD on 2 L nasal cannula baseline, coronary artery disease, presents hypoxic at home and nonproductive cough.. History was obtained via interactive discussion with patient, family, chart review. On arrival, patient is afebrile, hemodynamically stable, GCS 15, moving all extremities spontaneously. On 4 L nasal cannula, up from baseline of 2, satting low 90s. Full physical exam performed and significant for crackles and rhonchi in the left lung base, no diffuse wheezing Differential includes but is not limited to pneumonia, COPD, URI, heart failure. Patient was given DuoNeb for symptomatic management and correction of underlying abnormalities. Workup initiated including CBC CMP troponin BNP chest x-ray EKG blood cultures. On re-evaluation, patient [remains afebrile, HD stable.] Not in respiratory distress. Laboratory workup independently interpreted by me and significant for significantly elevated BNP, mild leukocytosis, stable anemia borderline acidosis with lactate of 3.. Imaging independently interpreted by me and significant for left-sided effusion. See radiology read for full review of final results. Given patient history, exam and workup, patient's presentation most likely represents left lower lobe pneumonia. Patient was initiated on ceftriaxone and azithromycin for empiric coverage of community-acquired pneumonia. She was also given 40 of IV Lasix given elevated BNP. Interactive discussion was had with the hospitalist on-call for admission.. Procedures Risk/Benefits of Procedure(s) Were Explained: Yes Critical Care Critical Care Time Critical Care Time: No
--- NOTE | 2025-01-01 23:08 | XR_ITS ---
PROCEDURE INFORMATION: Exam: XR Chest Exam date and time: 01/01/2025 11:13 PM Age: 74 years old Clinical indication: Other: Copd, hypoxia TECHNIQUE: Imaging protocol: Radiologic exam of the chest. Views: 1 view. COMPARISON: CT CHEST WO CON 10/08/2024 7:13 PM FINDINGS: Lungs: Low lung volumes. No consolidation. Pleural spaces: Unremarkable. No pleural effusion. No pneumothorax. Heart/Mediastinum: The heart is nonenlarged. There is evidence of prior CABG. Vasculature: Unremarkable. Bones/joints: Unremarkable. IMPRESSION: No acute findings.
--- NOTE | 2025-01-01 23:10 | PC.NURSE ---
Resp called and notified of VBG that had been sent to lab.
[2025-01-01 23:14] LABS: Hematocrit 33.7 % (37.0-47.0); Hemoglobin 11.1 g/dL (12.2-16.2); Immature Granulocytes % 0.3 %; Mean Corpuscular HGB Conc 32.9 g/dL (31.8-35.4); Mean Corpuscular Hemoglobin 29.4 pg (27.0-31.2); Mean Corpuscular Volume 89.4 fl (81-99); Nucleated Red Blood Cells % 0 %; Platelet Count 290 K/mm3 (142-424); Red Blood Count 3.77 M/mm3 (4.20-5.40); Red Cell Distribution Width-SD 50.3 fL; White Blood Count 11.6 K/mm3 (4.8-10.8)
[2025-01-01 23:17] LABS: VBG HCO3 27.3 mmol/L (23-30); VBG PH 7.31 mmol/L (7.31-7.41); VBG PO2 37.0 mmol/L (28-40)
[2025-01-01 23:17] LABS: Coronavirus 19, PCR Not Detected (NotDetected); Influenza A, PCR Not Detected (NotDetected); Influenza B, PCR Not Detected (NotDetected)
--- NOTE | 2025-01-01 23:18 | ECG_ITS ---
APPROVED REPORT Exam: Resting ECG HR:62 bpm ECG Measurements Heart Rate 62 AXES [place] 212 P 53 QRSd 91 QRS 16 QT 418 T 103 QTc 423 Conclusion SINUS RHYTHM WITH FIRST DEGREE AV BLOCK LOW QRS VOLTAGE IN PRECORDIAL LEADS [QRS DEFLECTION < 1.0 mV IN CHEST LEADS] ANTERIOR MYOCARDIAL INFARCTION , PROBABLY OLD [40+ ms Q WAVE AND/OR ST/T ABNORMALITY IN V3/V4] INFERIOR MYOCARDIAL INFARCTION , OF INDETERMINATE AGE [40+ ms Q WAVE AND/OR ST/T ABNORMALITY IN II/aVF] MODERATE T-WAVE ABNORMALITY, CONSIDER LATERAL ISCHEMIA [-0.1+ mV T-WAVE IN I/aVL/V5/V6] ABNORMAL ECG Electronically signed by : EDGARDO IGLESIAS, 01/10/2025 17:02:22
[2025-01-01 23:23] LABS: Lactate Venous 3.2 mmol/L (0.4-2.0); VBG PCO2 55.2 mmol/L (35-51)
[2025-01-01 23:31] VITALS: BP 120/45; PULSE 60; RESP 17; O2SAT 94
[2025-01-01 23:49] LABS: Alanine Aminotransferase 27 U/L (12-78); Albumin Level 3.1 g/dl (3.5-5.0); Albumin/Globulin Ratio 1.1 (1.1-1.8); Alkaline Phosphatase 150 U/L (38-126); Anion Gap 13.6 mEq/L (5-15); Aspartate Amino Transferase 35 U/L (14-36); Bilirubin,Total 0.7 mg/dl (0.2-1.3); Blood Urea Nitrogen 22 mg/dl (7-17); Calcium 8.0 mg/dl (8.4-10.2); Carbon Dioxide 35 mmol/L (22.0-30.0); Chloride 92 mmol/L (98-107); Creatinine Clearance Estimated 42 mL/min (50-200); Creatinine,Serum 1.00 mg/dl (0.52-1.04); Estimated Glomerular Filt Rate 54 ml/min (>60); GFR (African American) 66 ML/MIN (>60); Globulin 2.7 g/dL (1.3-3.2); Glucose 91 mg/dl (74-100); Potassium 3.6 mmoL/L (3.5-5.1); Sodium 137 mmol/L (136-145); Total Protein,Serum 5.8 g/dl (6.3-8.2)
[2025-01-01 23:59] LABS: NT Pro Brain Natriuretic Pep. 5290 pg/mL (0-125)
[2025-01-02] VITALS (10 sets, daily range): BP systolic 104–178; BP diastolic 45–78; PULSE 59–76; RESP 15–19; TEMP 36.5–36.9; O2SAT 93–100; BMI 22.5
[2025-01-02 00:01] LABS: Troponin I < 0.01 ng/ml (0.00-0.034)
[2025-01-02] MEDS: FUROSEMIDE 40MG/4ML VIAL 40 MG IV ×2 (00:28→08:24)
[2025-01-02] MEDS: AZITHROMYCIN 500 MG in 0.9 % SODIUM CHLORIDE 250 ML 250 MG IV (00:28)
[2025-01-02] MEDS: IPRATROPIUM/ALBUTEROL 3 ML NEB IH ×3 (00:29→11:56)
[2025-01-02] MEDS: CEFTRIAXONE 1 GM 1 GM in 0.9 % SODIUM CHLORIDE 50 ML IV (00:29)
--- NOTE | 2025-01-02 00:33 | P.HP_ITS ---
<Statement entered by Nathan Mix MD - 01/03/25 11:53> Agree with plan of care as outlined by the [employer]. History of Present Illness *Admission Date: 01/02/25 *Reason for visit:: Shortness of breath *History of present illness: This is a 74-year-old female who is well-known to our service line and has a past medical history significant for home O2 dependency at 2 L, COPD, pulmonary emphysema, pericardial effusion, diabetes, hyperlipidemia, coronary artery disease, dementia, cataracts, SVT, and congestive heart failure with preserved ejection fraction who presents with a chief complaint of shortness of air. While at home, patient is room air saturations were 50%. Patient was given a nebulizer treatment and did not improve, so she was transition to [facility] for further workup. While in emergency room, patient's oxygen saturation were 70% she was given a nebulizer treatment, and her oxygen saturation improved on 3 L of oxygen by nasal cannula. Plain films obtained in the emergency room were consistent with new versus pleural effusion-per my independent read/still pending final read by radiologist. As a result, patient has been admitted for further management. During my evaluation of patient, patient was resting comfortably without any significant respiratory distress noted. She voices having the a for symptomology which started acutely. Despite her nebulizer, patient's symptoms did not improve. Patient has a chronic hypercapnic respiratory failure and may benefit from home trilogy machine. She is currently denying any chest pain, lightheadedness, dizziness, PND, orthopnea, lower extremity swelling, nausea, vo miting, fever, chills, rigors, or diarrhea. Family member at the bedside states patient is incontinent of stool.. Additional pertinent vitals obtained include a white blood cell count 11.6, red blood cell count of 3.77, 1, hematocrit 33.7, pCO2 of 55.2, bicarb 29, chloride of 92, carbon oxide of 35, BUN of 22, GFR 54, calcium of 8, alkaline phosphate at 150, BNP of 5290, total protein 5.8, and a lbumin of 3.1. [facility] Disclaimer: The information contained in this section may have been updated after the patient was seen, as this information can be updated by other users. Medical History (Updated 01/02/25 @ 00:44 by Broderick Lyle APRN) Kyphosis Chronic respiratory failure with hypoxia Pulmonary emphysema History of smoking 30 or more pack years Pericardial effusion Diabetes mellitus Hyperlipidemia Hypertensive heart disease Hypertension CAD (coronary artery disease) Cataract SVT (supraventricular tachycardia) COPD exacerbation COPD (chronic obstructive pulmonary disease) Respiratory failure with hypoxia History of CVA (cerebrovascular accident) Vomiting Weight loss Lumbar stenosis Thoracic compression fracture Cerebral atrophy Sepsis UTI (urinary tract infection) CAP (community acquired pneumonia) Carotid artery stenosis Tobacco dependence syndrome Coronary arteriosclerosis Surgical History History of coronary artery bypass graft S/P CABG x 3 Family History Other Diabetes Family history of hyperlipidemia Family history of hypertension Parkinsons Social History Smoking Status: Never smoker alcohol intake: never counseling provided: none substance use type: denies use current occupational status: retired Travel in the last 8 weeks?: Inside the [place] household members: family housing: house caffeine: Yes Have you lived/traveled outside US in past 30 days?: No Contact w/someone who lives/traveled outside US past 30 days?: No Exposure to someone with infectious disease in past 14 days?: No Do you have a fever (greater than 100.4 F or 38 C)?: No Have you tested positive for COVID-19?: No Exposed to someone with COVID-19 in past 14 days?: No Do you have a sore throat?: No Do you have a cough?: No Do you have any weakness?: No Do you have any diarrhea?: No Are you experiencing any unusual bleeding?: No Do you have any muscle aches/pain?: No Do you have any abdominal pain?: No Are you experiencing loss of taste or smell?: No Other Medical History Have you received the Flu Vaccine for this season: No Have you received the Pneumonia Vaccine: Yes Review of Systems Review of Systems Review of systems:: pertinent systems reviewed and negative unless documented below Constitutional Constitutional: Reports system reviewed and no additional complaints, except as documented Eyes Eyes: Reports system reviewed and no additional complaints, except as documented ENT Ears, Nose, Mouth, and Throat: Reports system reviewed and no additional complaints, except as documented *Cardiovascular Cardiovascular: Reports system reviewed and no additional complaints, except as documented and Reports dyspnea *Respiratory Respiratory: Reports dyspnea *Gastrointestinal Gastrointestinal: Reports system reviewed and no additional complaints, except as documented *Genitourinary Genitourinary: Reports system reviewed and no additional complaints, except as documented *Musculoskeletal Musculoskeletal: Reports muscle weakness Integumentary/Breasts Skin/Breast: Reports system reviewed and no additional complaints, except as documented *Neurologic Neurologic: Reports system reviewed and no additional complaints, except as documented Psychiatric Psychiatric: Reports system reviewed and no additional complaints, except as documented Endocrine Endocrine: Reports system reviewed and no additional complaints, except as documented Hematologic/Lymphatic Hematologic/Lymphatic: Reports system reviewed and no additional complaints, except as documented Allergic/Immunologic Allergic/Immunologic: Reports system reviewed and no additional complaints, except as documented Meds Home Medications and Allergies Home Medications ?Medication ?Instructions ?Recorded ?Confirmed ?Type atorvastatin 80 mg tablet 80 mg PO HS 04/05/17 5 History aspirin 325 mg tablet 325 mg PO DAILY 09/14/17 History isosorbide mononitrate 30 mg 30 mg PO DAILY 03/26/18 0 10/16/24 History tablet,extended release 24 hr amlodipine 5 mg tablet 5 mg PO DAILY 05/20/1910/16 History cholecalciferol (vitamin D3) 25 25 mcg PO HS 03/13/20 10/16/24 History mcg (1,000 unit) capsule memantine 10 mg tablet 10 mg PO BID 09/18/20 History donepezil 5 mg tablet 5 mg PO DAILY 05/21/2110/16 History multivitamin (Daily Multi-Vitamin 1 tab PO DAILY 12/0310/16/24 History tablet) escitalopram oxalate 10 mg tablet 10 mg PO DAILY 06/1710/16/24 History lisinopril 40 mg tablet 40 mg PO BID 01/21/23 History metformin 1,000 mg tablet 1,000 mg PO BID 01/22/23 History pantoprazole 40 mg tablet,delayed 40 mg PO DAILY 02/2010/16/24 History release gabapentin 100 mg capsule 100 mg PO BID 03/11/2410/16 History lorazepam 0.5 mg tablet 0.5 mg PO HS 03/11/24 History furosemide 20 mg tablet 20 mg PO DAILY 30 days #0 ta bs 03/13/24 10/16/24 Rx ferrous sulfate 325 mg (65 mg 325 mg PO DAILY 06/27/24 10/16/24 History iron) tablet (FeroSul) magnesium oxide 400 mg (241.3 mg 400 mg PO BID 5 10/16/24 History magnesium) tablet metoprolol succinate 100 mg 100 mg PO BID 30 days #60 tabs 09/30/24 10/16/24 Rx tablet,extended release 24 hr ipratropium 0.5 mg-albuterol 3 mg 3 ml inhalation QID 90 days #270 mL 10/16/24 10/16/24 Rx (2.5 mg base)/3 mL nebulization soln New Prescriptions to Start Prescriptions: Allergies Allergy/AdvReac Type Severity Reaction Status Date / Time Iodinated Contrast Media Allergy Mild Unknown Verified 10/16/24 11:49 allergy reaction naproxen Allergy Mild Unknown Verified 10/16/24 11:49 allergy reaction Exam Data for Last 24 hours Vital signs and Labs for Last 24 Hours: Temp Pulse Resp BP Pulse Ox O2 Del Method O2 Flow Rate 97.8 F 59 L 19 126/46 L 94 L Nasal Cannula 3 01/01/25 22:35 01/02/25 00:00 01/02/25 00:00 01/02/25 00:00 01/02/25 00:00 01/02/25 00:00 01/02/25 00:00 Laboratory Results - last 24 hr 01/01/25 23:01: WBC 11.6 H, RBC 3.77 L, Hgb 11.1 L, Hct 33.7 L, MCV 89.4, MCH 29.4, MCHC 32.9, RDW 15.3, Plt Count 290, MPV 10.5 H, Neut % (Auto) 71.4, Lymph % (Auto) 21.0, Tripp % (Auto) 6.4, Eos % (Auto) 0.6, Baso % (Auto) 0.3, Neut # (Auto) 8.3 H, Lymph # (Auto) 2.5, Tripp # (Auto) 0.8, Eos # (Auto) 0.1, Baso # (Auto) 0.0, VBG pH 7.31, VBG pCO2 55.2 H, VBG pO2 37.0, VBG HCO3 27.3, VBG Total CO2 29.0 H, VBG O2 Saturation 60.4, VBG Base Excess 1.1, VBG Lactic Acid 3.2 H, Sodium 137, Potassium 3.6, Chloride 92 L, Carbon Dioxide 35 H, Anion Gap 13.6, BUN 22 H, Creatinine 1.00, Estimated Creat Clear 42, Estimated GFR 54 L, Est GFR ( Amer) 66, Glucose 91, Calcium 8.0 L, Total Bilirubin 0.7, AST 35, ALT 27, Alkaline Phosphatase 150 H, Troponin I < 0.01, NT-Pro-B Natriuret Pep 5290 H , Total Protein 5.8 L, Albumin 3.1 L, Globulin 2.7, Albumin/Globulin Ratio 1.1 01/01/25 23:12: SARS-CoV-2 (PCR) Not detected, Influenza A Untype (PCR) Not detected, Influenza Type B (PCR) Not detected I & O for Last 24 hours: Intake & Output 12/30/24 12/31/24 01/01/25 01/02/25 23:59 23:59 23:59 23:59 Weight 54.431 kg Constitutional Constitutional: no acute distress and cooperative *Routine HEENT Exam Head: Present normocephalic and atraumatic Eye: Present EOMI and PERRL ENT: Present mucous membranes moist *Routine Neck Exam Neck: Present supple and trachea midline *Routine Respiratory Exam Respiratory: Present wheezes, distant breath sounds, able to speak in complete sentences and symmetric chest movement *Routine Cardiovascular Exam Cardiovascular: Present RRR, Normal S1, Normal S2 and bradycardia *Routine Abdominal Exam Abdominal: Present soft and normoactive bowel sounds *Routine Rectal Exam Rectal:: deferred *Routine Genitalia Exam Genitalia:: deferred *Routine Extremities Exam Extremities: Present full ROM and pulses intact Routine Back/Spine/Pelvis Exam Back/Spine: Present full ROM *Routine Skin Exam Skin: Present intact, cyanosis and warm *Routine Neurological Exam Neurological: Present alert, CN II-XII intact and moving all extremities Routine Psychiatric Exam Psychiatric: Present normal affect and normal thought process H&P: Result Impressions 74-year-old female who has known chronic respiratory failure and HFpEF presents with shortness of air and room air saturations as low as 50% on her home supplemental oxygen. Imaging of the chest were consistent with possible left lower lobe pneumonia versus left lower lobe effusion Assessment and Plan *Assessment and plan (1) Pneumonia: Status: Acute Qualifiers: Pneumonia type: due to unspecified organism Laterality: left Lung location: lower lobe of lung Qualified Code(s): J18.9 - Pneumonia, unspecified organism Category: Medical Code(s): J18.9 - Pneumonia, unspecified organism (2) Acute on chronic respiratory failure with hypoxia and hypercapnia: Status: Acute Category: Medical Code(s): J96.21 - Acute and chronic respiratory failure with hypoxia; J96.22 - Acute and chronic respiratory failure with hypercapnia (3) Leukocytosis: Status: Acute Qualifiers: Leukocytosis type: unspecified Qualified Code(s): D72.829 - Elevated white blood cell count, unspecified Category: Medical Code(s): D72.829 - Elevated white blood cell count, unspecified (4) COPD (chronic obstructive pulmonary disease): Status: Acute Qualifiers: COPD type: unspecified COPD Qualified Code(s): J44.9 - Chronic obstructive pulmonary disease, unspecified Category: Medical Code(s): J44.9 - Chronic obstructive pulmonary disease, unspecified (5) Elevated brain natriuretic peptide (BNP) level: Status: Acute Category: Medical Code(s): R79.89 - Other specified abnormal findings of blood chemistry (6) Pleural effusion: Status: Acute Category: Medical Code(s): J90 - Pleural effusion, not elsewhere classified Plan Assessment: Left lower lobe community-acquired pneumonia: Most likely bacterial Acute on chronic hypercapnic hypoxic respiratory failure Leukocytosis COPD exacerbation Pleural effusion Elevated BNP -Patient's BNP has significantly increased in value from last assessment - Will give 40 mg of Lasix IV daily - Consider 2D echo - She was given Rocephin and azithromycin in the emergency room. Will continue 1 g IV Rocephin daily and 250 mg of azithromycin p.o. daily - DuoNebs every 6 hours - Supplemental oxygen to maintain oxygen saturation greater 90% - Will place patient on nocturnal BiPAP-she may benefit from home trilogy - 40 mg of prednisone p.o. daily - Obtain sputum for culture - Obtain procalcitonin Plan: Admit patient to the MedSur unit Up to chair SCDs to bilateral lower extremity Occupational Therapy Physical therapy 1887/cardiac diet Sliding scale insulin AC and at bedtime with mild scale coverage CBC/BMP daily 5000 units of heparin subcu twice daily 4 mg Zofran IV push every 8 hours pain nausea vomiting/blood cultures x 2 Sputum for culture DNR/DNI I will discussed this case with attending physician Dr. Mix and I look forward to more input
--- NOTE | 2025-01-02 00:46 | PC.NURSE ---
report called to Edna THOMPSON
[2025-01-02] MEDS: SODIUM CHLORIDE 3% 15ML NEB 3 ML IH (01:44)
[2025-01-02 03:05] LABS: Troponin I < 0.01 ng/ml (0.00-0.034)
[2025-01-02 03:08] LABS: Reflex Lactic Add Lactic Reflex
[2025-01-02 03:39] LABS: Lactic Acid Follow Up (RFLX 1) 3.4 mmol/L (0.7-2.1)
[2025-01-02 05:26] LABS: Reflex Lactic (2 hrs) Add Lactic Reflex
[2025-01-02 06:18] LABS: Lactic Acid Follow up (RFLX 2) 3.0 mmol/L (0.7-2.1)
[2025-01-02 06:36] LABS: Hematocrit 30.3 % (37.0-47.0); Immature Granulocytes % 0.2 %; Mean Corpuscular HGB Conc 32.3 g/dL (31.8-35.4); Mean Corpuscular Hemoglobin 29.1 pg (27.0-31.2); Mean Corpuscular Volume 89.9 fl (81-99); Nucleated Red Blood Cells % 0 %; Platelet Count 243 K/mm3 (142-424); Red Blood Count 3.37 M/mm3 (4.20-5.40); Red Cell Distribution Width-SD 51.9 fL; White Blood Count 8.8 K/mm3 (4.8-10.8)
[2025-01-02 06:39] LABS: Hemoglobin 9.6 g/dL (12.2-16.2)
[2025-01-02 06:53] LABS: Anion Gap 12.9 mEq/L (5-15); Blood Urea Nitrogen 23 mg/dl (7-17); Calcium 7.6 mg/dl (8.4-10.2); Carbon Dioxide 35 mmol/L (22.0-30.0); Chloride 93 mmol/L (98-107); Creatinine Clearance Estimated 45 mL/min (50-200); Creatinine,Serum 1.00 mg/dl (0.52-1.04); Estimated Glomerular Filt Rate 54 ml/min (>60); GFR (African American) 66 ML/MIN (>60); Glucose 81 mg/dl (74-100); Sodium 138 mmol/L (136-145)
[2025-01-02 07:21] LABS: Procalcitonin 0.129 ng/mL (0.0-2.0)
[2025-01-02 07:28] LABS: Potassium 2.9 mmoL/L (3.5-5.1)
--- NOTE | 2025-01-02 07:56 | HMH.PHAINT1 ---
Pharmacy Intervention Comments: Home medication list verified using list from outpatient pharmacy and pt interview
[2025-01-02] MEDS: HEPARIN SODIUM 5,000 UNIT/ML VIAL 5000 UNIT SUBCUT (08:24)
[2025-01-02] MEDS: POTASSIUM CHLORIDE 20MEQ TAB 40 MEQ PO ×3 (09:50→16:50)
[2025-01-02] MEDS: MEMANTINE 10MG TABLET 10 MG PO (09:51)
[2025-01-02] MEDS: ISOSORBIDE MONO 30MG TAB.ER.24H 30 MG PO (09:51)
[2025-01-02] MEDS: ESCITALOPRAM 10MG TABLET 10 MG PO (09:51)
[2025-01-02] MEDS: FERROUS SULFATE 325MG TABLET 325 MG PO (09:51)
[2025-01-02] MEDS: LISINOPRIL 20MG TABLET 40 MG PO (09:51)
[2025-01-02] MEDS: GABAPENTIN 100MG CAPSULE 100 MG PO (09:54)
[2025-01-02] MEDS: METOPROLOL SUCCINATE XL 100MG TABLET 100 MG PO (10:08)
--- NOTE | 2025-01-02 10:12 | HMH.PTEV ---
Physical Therapy Evaluation Rehab PT IP Evaluation Start: 01/02/25 00:39 Freq: ONCE Status: Active Protocol: Document 01/02/25 10:07 JENSEN (Rec: 01/02/25 10:12 JENSEN [id number]) Subjective/History History History Per H&P: This is a 74-year-old female who is well-known to our service line and has a past medical history significant for home O2 dependency at 2 L, COPD , pulmonary emphysema, pericardial effusion, diabetes, hyperlipidemia, coronary artery disease, dementia, cataracts, SVT, and congestive heart failure with preserved ejection fraction who presents with a chief complaint of shortness of air. While at home, patient is room air saturations were 50%. Patient was given a nebulizer treatment and did not improve, so she was transition to [facility] for further workup. While in emergency room, patient's oxygen saturation were 70% she was given a nebulizer treatment, and her oxygen saturation improved on 3 L of oxygen by nasal cannula. Plain films obtained in the emergency room were consistent with new versus pleural effusion-per my independent read/still pending final read by radiologist. As a result, patient has been admitted for further management. During my evaluation of patient, patient was resting comfortably without any significant respiratory distress noted. She voices having the a for symptomology which started acutely. Despite her nebulizer, patient's symptoms did not improve. Patient has a chronic hypercapnic respiratory failure and may benefit from home trilogy machine. She is currently denying any chest pain, lightheadedness, dizziness, PND , orthopnea, lower extremity swelling, nausea, vomiting , fever, chills, rigors, or diarrhea. Family member at the bedside states patient is incontinent of stool.. Additional pertinent vitals obtained include a white blood cell count 11.6, red blood cell count of 3.77, 1, hematocrit 33.7, pCO2 of 55.2, bicarb 29, chloride of 92, carbon oxide of 35, BUN of 22, GFR 54, calcium of 8 , alkaline phosphate at 150, BNP of 5290, total protein 5.8, and albumin of 3.1. Subjective Subjective Pt reports she receives rotated care from her 2 daughters at their homes. Pt normally requires 1 person assistance to transfer from EOB to w/c and 1 person assistance for bed mobility. [facility] How much help from another person do you currently need... Turning from your A lot back to your side while in a flat bed without using bedrails? Moving from lying on A lot back to sitting on the side of a flat bed without using bedrails? Moving to and from a Total bed to a chair ( including a wheelchair)? Standing up from a Total chair using your arms? (e.g., wheelchair, bedside chair) Walking in hospital Total room? Climbing 3-5 steps Total with a railing? Mobility Score 8 Mobility Level [facility] Mobility 3 Sit at edge of bed Mobility Calculator Rehab PT IP Eval Objective Appearance Patient Behavior Appropriate,Cooperative Patient Orientation Person,Birthday Difficulty following none instructions Speech Pattern Soft-Spoken Ambulation Patient Able to No Ambulate Balance Ability to Arise Unable Transfers Bed Transfer Ability Maximum x 2 (75% assist) Rehab PT IP prob,goals,plan Problems Date of Evaluation: 01/02/25 PT IP Problems Bed Mobility,Transfers,Gait,Balance,Self care,Safety Rehab Potential Rehab Potential Good Plan PT Intervention Plan Bed Mobility,Transfers,Gait,Balance,Self care,Safety, Therapeutic Exercise Other Intervention 1-2 times Plan PT Plan Frequency Daily Duration LOS Discharge Goals Bed Transfer Ability Maximum x 1 (75% assist) Sit to Stand Chair Maximum x 2 (75% assist) Transfer Ability Discharge Plan PT Discharge Plan Initial physical therapy evaluation performed. Patient presents below baseline at this time in functional mobility, transfers, and strength. Pt not safe to return home at this time d/t current level of functional mobility. PT recommending rehabilitation placement upon d/c from [facility]. Pt would benefit from skilled PT while at [facility] to prevent further functional decline and maximize safety with mobility. Eval Complexity Eval Charge Codes 89414 - Moderate Complexity PHYSICIAN CERTIFICATION: I certify the specified therapy services for Margarita Stone are required, authorized, and reviewed every 30 days.
--- NOTE | 2025-01-02 10:14 | HMH.OTEV ---
OT Evaluation Rehab OT IP Evaluation Start: 01/02/25 00:39 Freq: ONCE Status: Active Protocol: Document 01/02/25 10:00 NONA (Rec: 01/02/25 10:14 NONA [id number]) Rehab OT IP Assessment Subjective History Per HPI: *History of present illness: This is a 74-year-old female who is well- known to our service line and has a past medical history significant for home O2 dependency at 2 L, COPD , pulmonary emphysema, pericardial effusion, diabetes, hyperlipidemia, coronary artery disease, dementia, cataracts, SVT, and congestive heart failure with preserved ejection fraction who presents with a chief complaint of shortness of air. While at home, patient is room air saturations were 50%. Patient was given a nebulizer treatment and did not improve, so she was transition to [facility] for further workup. While in emergency room, patient's oxygen saturation were 70% she was given a nebulizer treatment, and her oxygen saturation improved on 3 L of oxygen by nasal cannula. Plain films obtained in the emergency room were consistent with new versus pleural effusion-per my independent read/still pending final read by radiologist. As a result, patient has been admitted for further management. Subjective Long time. Pt was sitting in bed slumped while eating. Pt agreed to OT eval this AM. Pt orient x3- name, birthday, and PLOF. Pt reported they live between daughters' houses and [facility]. Pt reported they need assist with all transfers and use a w/c for FM. Pt reported they are normally on 2 L O2 at baseline, currently on 2 L O2. Pt reported daughters assist with all ADLs and IADLs. Pt reported daughters assist with self-feeding. Pt reported they sleep in a recliner. Pt reported daughters' homes are SS with no steps for pt to use. Pt agreed to sit on EOB. Pt was Max X 2 to go from supine to EOB and pt was Max X 2 to hold static sitting balance at EOB. Pt laid back into supine position with Max A x2. Pt then adjusted in bed with mx pillows in order to prevent slumping to R side. Pt left with call light and all other needs within reach while sitting supported in bed. Pt reported they have shower chair to use for bathing. Objective Patient Orientation Person,Birthday,Situation Shoulder ROM Muscle Weakness Limitations Elbow ROM Muscle Weakness Limitations Wrist Limitations of Muscle Weakness Range of Motion Bed Mobility bed mobility-scooting,bed mobility - supine/sit Assist Level Maximum x 2 (75% assist) Feeding Ability Needs Supervision Rehab OT IP prob,goals,plan Problems Date of Evaluation: 01/02/25 OT IP Problems Bed Mobility,Transfers,Balance,Self care,Safety Rehab Potential Rehab Potential Good Equipment Needs Assistive Devices Wheelchair Plan OT intervention Plan Bed Mobility,Transfers,Balance,Self care,Safety, Therapeutic Exercise OT Plan Frequency Daily Duration LOS Discharge Goals Bed Mobility Ability Assistance x1 Sit to Stand Chair Maximum x 1 (75% assist) Transfer Ability Chair Transfer Maximum x 1 (75% assist) Ability Chair Transfer Stand Pivot Technique Chair Transfer Transfer Belt Assistive Devices Feeding Ability Needs Supervision Commode/Toilet Raised Toilet Seat,Grab Bars Transfer Assistive Devices Decrease in No Endurance Discharge Plan OT Discharge Plan At this time, pt presents below baseline and would benefit from skilled acute OT services and interventions while admitted at [facility] to prevent further functional decline in occupational performance. Once medically stable and DC from [facility], OT is recommending pt goes for placement for further skilled OT services and interventions in order to address decline in occupational performance and improve QOL and optimal OP , as pt alternates between daughters and level of assist varies between each household. If family denies placement, OT services could also be beneficial for pt to receive in order to address above deficits. Eval Complexity Eval Charge Codes 84967 - Moderate Complexity PHYSICIAN CERTIFICATION: I certify the specified therapy services for Margarita Stone are required, authorized, and reviewed every 30 days.
--- NOTE | 2025-01-02 10:22 | SW/DCPLANNER ---
Addendum entered by Obdulia Smith 01/02/25 12:14: Per daughter they are not interested in placement, home health services or Hospice at this time. Daughter stated they would prefer more time to have extensive discussions w/ family. I did update daughter that patient is medically stable for discharge today. No further needs voiced by daughter at this time. Original Note: I spoke w/ patient and her daughter this AM regarding plans once medically stable for discharge. PT/OT evaluated patient and recommended placement. Per daughter the patient lives at home w/ daughters. Patient lives at each daughters (3) house weekly. Per daughter the PCP (Dr Gleason) recently recommended Hospice services and this is something they are considering. Daughter would like to have time to speak w/ her sister's for additional conversations. CM will continue to follow up. Discharge date is unknown at this time.
--- NOTE | 2025-01-02 10:51 | CA_ITS ---
APPROVED REPORT EXAM: Comprehensive 2D, Doppler, and color-flow Echocardiogram Cytogenetics Technologist: BEN Bolye, RVS Ht: 5 ft 2 in Wt: 127lbs BSA: 1.58 BP: 126/46 mmHg Indications: Elevated BNP, COPD, CAD-CABG, Pneumonia Echo Enhancing Agent Comments: Scanned bedside supine patient unable to be positioned 2D Dimensions Left Atrium 2.78 cm F: 2.7 - 3.8 LA Volume 22.30 mL LA Volume Index [id number] mL/m2 (M/F) 16-34 M-Mode Dimensions RVDd 2.55 cm (0.9-2.6) LA Diam 3.12 cm (1.9-4.0) LVDd 4.52 cm (3.5-5.7) LVDs 3.26 cm (3.5-5.7) IVSd 0.75 cm (0.6-1.1) PWd 0.97 cm (0.6-1.1) EF (Teich) 54.20% EPSs 0.61 cm FS 27.90% EDV (Teich) 93.40 mL TAPSE 1.49 (<1.7) ESV (Teich) 42.80 mL LV Diastology E Decel Time 180 (160-240 msec) E/A Ratio 0.70 MED A' 10.10 cm/s LAT A' 8.50 cm/s Aortic Valve JANIE Index 1.25 cm2/m2 AoV Peak Javid. 99.0 (50-130 cm/s) AO Peak GR. 3.90 mmHg AO Mean GR. 1.90 (<5 mmHg) AO VTI 21.2 (18-25 cm) JANIE (VTI) 2.01 (2.5-4.5 cm2) Mitral Valve MV A Velocity 87.0 (40-130 cm/s) E/A Ratio 0.70 Pulmonary Valve PV Peak Velocity 66.0 (50-150 cm/s) Tricuspid Valve TR P. Velocity 153.00 cm/s RAP Estimate 10.00 mmHg RVSP 19.30 mmHg Left Ventricle The left ventricle is normal size. Left ventricular systolic function is normal. The left ventricular ejection fraction is within the normal range. There is normal left ventricular wall thickness. Septal flattening is present, consistent with right-sided pressure/volume overload. The left ventricular diastolic function is normal. LVEF is 55% Right Ventricle The right ventricle is moderately dilated. The right ventricular systolic function is moderately reduced. Atria The left atrium is mildly dilated. The right atrium is moderately dilated. There is no color Doppler evidence of interatrial shunt. Aortic Valve The aortic valve is mildly thickened. There is no hemodynamically significant aortic valvular stenosis. Trace aortic regurgitation is present. Mitral Valve The mitral valve is mildly thickened. No evidence of mitral valve stenosis. Trace mitral regurgitation is present. Tricuspid Valve The tricuspid valve leaflets are thin and pliable. Trace tricuspid regurgitation. There is insufficient TR jet to estimate RVSP. Pulmonic Valve The pulmonary valve is grossly normal in structure. Trace pulmonic valve regurgitation is present. Great Vessels The aortic root is normal in size. IVC is normal in size and collapses >50% with inspiration. Pericardium There is no pericardial effusion. Other Information Study Quality: Technically Difficult Conclusion Technically difficult study. Normal LV systolic function. Septal flattening is present, consistent with right-sided pressure/volume overload. Moderate RV dilation with moderate reduction in RV function. Biatrial dilation. No significant valvular stenosis or regurgitation. Electronically signed by : Jacinda Melton MD 01/02/2025 13:12:38
[2025-01-02 10:59] LABS: Thyroid Stimulating Hormone 2.91 uIU/mL (0.465-4.68)
[2025-01-02 11:42] LABS: Hemoglobin A1C 5.6 % (4.0-6.0)
--- NOTE | 2025-01-02 12:10 | EXP.PULM.CON ---
History of Present Illness History of present illness: Ms. Stone is a 74-year-old female greater than [id number] smoking history prior smoker. COPD, chronic hypoxic respiratory failure, kyphosis history of CVA with right-sided weakness, CABG, CHF presented to the ER with worsening respiratory distress cough and productive phlegm and pulmonary was called for further evaluation and management. Patient went presented to ER received nebulization therapies with no significant improvement in her symptoms and was eventually admitted to the hospital. [facility] Disclaimer: The information contained in this section may have been updated after the patient was seen, as this information can be updated by other users. Medical History (Updated 01/02/25 @ 12:16 by Claudio Wright MD) Acute and chronic respiratory failure with hypoxia Kyphosis Chronic respiratory failure with hypoxia Pulmonary emphysema History of smoking 30 or more pack years Pericardial effusion Diabetes mellitus Hyperlipidemia Hypertensive heart disease Hypertension CAD (coronary artery disease) Cataract SVT (supraventricular tachycardia) COPD exacerbation COPD (chronic obstructive pulmonary disease) Respiratory failure with hypoxia History of CVA (cerebrovascular accident) Vomiting Weight loss Lumbar stenosis Thoracic compression fracture Cerebral atrophy Sepsis UTI (urinary tract infection) CAP (community acquired pneumonia) Carotid artery stenosis Tobacco dependence syndrome Coronary arteriosclerosis Surgical History History of coronary artery bypass graft S/P CABG x 3 Family History Other Diabetes Family history of hyperlipidemia Family history of hypertension Parkinsons Social History (Updated 01/02/25 @ 01:28 by Edna Fields RN) Smoking Status: Never smoker alcohol intake: never counseling provided: none substance use type: denies use current occupational status: retired Travel in the last 8 weeks?: Inside the [place] household members: family housing: house caffeine: Yes Have you lived/traveled outside [place] in past 30 days?: No Contact w/someone who lives/traveled outside [place] past 30 days?: No Exposure to someone with infectious disease in past 14 days?: No Do you have a fever (greater than 100.4 F or 38 C)?: No Have you tested positive for COVID-19?: No Exposed to someone with COVID-19 in past 14 days?: No Do you have a sore throat?: No Do you have a cough?: No Do you have any weakness?: No Do you have any diarrhea?: No Are you experiencing any unusual bleeding?: No Do you have any muscle aches/pain?: No Do you have any abdominal pain?: No Are you experiencing loss of taste or smell?: No Review of Systems Constitutional Constitutional: Reports anorexia, Reports body ache(s) and Reports fatigue Eyes Eyes: Denies eye discharge, Denies dry eyes, Denies irritation and Denies itchy eyes ENT Ears, Nose, Mouth, and Throat: Denies epistaxis, Denies facial pain, Denies lip swelling and Denies throat swelling *Cardiovascular Cardiovascular: Reports dyspnea and Reports dyspnea on exertion *Respiratory Respiratory: Denies change in phlegm color, Reports chest congestion, Reports cough, Reports dyspnea, Reports dyspnea on exertion, Denies excessive phlegm production and Reports wheezing *Gastrointestinal Gastrointestinal: Denies abdominal pain, Denies belching and Denies cramping *Musculoskeletal Musculoskeletal: Reports back pain, Reports myalgias and Reports other (No small joint swelling or Pain) *Neurologic Neurologic: Reports system reviewed and no additional complaints, except as documented Psychiatric Psychiatric: Denies homicidal ideation and Denies suicidal ideation Endocrine Endocrine: Reports fatigue and Denies heat intolerance Hematologic/Lymphatic Hematologic/Lymphatic: Denies easy bleeding and Denies lymphadenopathy Allergic/Immunologic Allergic/Immunologic: Denies itchy eyes, Denies lip swelling, Denies throat swelling and Reports wheezing Pulmonology Exam Inpatient Vital signs and Labs for Last 24 Hours: Temp Pulse Resp BP Pulse Ox O2 Del Method O2 Flow Rate 98.2 F 70 18 141/56 H 93 L Nasal Cannula 2 01/02/25 08:00 01/02/25 11:56 01/02/25 08:00 01/02/25 08:00 01/02/25 11:56 01/02/25 11:56 01/02/25 11:56 Laboratory Results - last 24 hr 01/01/25 23:01: WBC 11.6 H, RBC 3.77 L, Hgb 11.1 L, Hct 33.7 L, MCV 89.4, MCH 29.4, MCHC 32.9, RDW 15.3, Plt Count 290, MPV 10.5 H, Neut % (Auto) 71.4, Lymph % (Auto) 21.0, [place] % (Auto) 6.4, Eos % (Auto) 0.6, Baso % (Auto) 0.3, Neut # (Auto) 8.3 H, Lymph # (Auto) 2.5, [place] # (Auto) 0.8, Eos # (Auto) 0.1, Baso # (Auto) 0.0, VBG pH 7.31, VBG pCO2 55.2 H, VBG pO2 37.0, VBG HCO3 27.3, VBG Total CO2 29.0 H, VBG O2 Saturation 60.4, VBG Base Excess 1.1, VBG Lactic Acid 3.2 H, Sodium 137, Potassium 3.6, Chloride 92 L, Carbon Dioxide 35 H, Anion Gap 13.6, BUN 22 H, Creatinine 1.00, Estimated Creat Clear 42, Estimated GFR 54 L, Est GFR ( Amer) 66, Glucose 91, Calcium 8.0 L, Total Bilirubin 0.7, AST 35, ALT 27, Alkaline Phosphatase 150 H, Troponin I < 0.01, NT-Pro-B Natriuret Pep 5290 H, Total Protein 5.8 L, Albumin 3.1 L, Globulin 2.7, Albumin/Globulin Ratio 1.1 01/01/25 23:12: SARS-CoV-2 (PCR) Not detected, Influenza A Untype (PCR) Not detected, Influenza Type B (PCR) Not detected 01/02/25 02:11: Troponin I < 0.01 01/02/25 03:23: Lactate 3.4 H 01/02/25 05:59: WBC 8.8, RBC 3.37 L, Hgb 9.6 L D, Hct 30.3 L, MCV 89.9, MCH 29.1, MCHC 32.3, RDW 15.6, Plt Count 243, MPV 10.9 H, Neut % (Auto) 58.9, Lymph % (Auto) 29.3, [place] % (Auto) 9.8 H, Eos % (Auto) 1.3, Baso % (Auto) 0.5, Neut # (Auto) 5.2, Lymph # (Auto) 2.6, [place] # (Auto) 0.9, Eos # (Auto) 0.1, Baso # (Auto) 0.0, Sodium 138, Potassium 2.9 L*, Chloride 93 L, Carbon Dioxide 35 H, Anion Gap 12.9, BUN 23 H, Creatinine 1.00, Estimated Creat Clear 45, Estimated GFR 54 L, Est GFR ( Amer) 66, Glucose 81, Hemoglobin A1c 5.6, Lactate 3.0 H, Calcium 7.6 L, Procalcitonin 0.129, TSH 2.91 I & O for Labs for Last 24 Hours: Intake & Output 12/30/24 12/31/24 01/01/25 01/02/25 23:59 23:59 23:59 23:59 Intake Total 240 / 240 Output Total 150 / 150 Balance 90 / 90 Weight 120 lb 127 lb 1.6 oz Constitutional: Present moderate distress Head: Present normocephalic and atraumatic ENT: Present normal exam, normal oropharynx and mucous membranes moist Neck: Present normal inspection and full ROM Respiratory: Present respiratory distress, normal respiratory effort and able to speak in complete sentences; Absent wheezes or diminished air movement Cardiac: Present S1/S2, Tachycardia and radial pulses present GI: Present soft and distention; Absent tenderness or guarding Rectal (female): Present deferred (female): Present deferred Skin: Present intact; Absent cyanosis or jaundice Neuro: Present alert, awake and oriented x 3 Extremities: Present normal inspection; Absent clubbing or cyanosis Psychiatric: Present normal affect and cooperative Meds Home Medications and Allergies Home Medications ?Medication ?Instructions ?Recorded ?Confirmed ?Type atorvastatin 80 mg tablet 80 mg PO HS 04/05/17 01/02/25 History aspirin 325 mg tablet 325 mg PO DAILY 09/14/17 01/02/25 History isosorbide mononitrate 30 mg 30 mg PO DAILY 03/26/18 01/02/25 History tablet,extended release 24 hr amlodipine 5 mg tablet 5 mg PO DAILY 05/20/19 01/02/25 History cholecalciferol (vitamin D3) 25 25 mcg PO HS 03/13/20 01/02/25 History mcg (1,000 unit) capsule memantine 10 mg tablet 10 mg PO BID 09/18/20 01/02/25 History donepezil 5 mg tablet 5 mg PO DAILY 05/21/21 01/02/25 History multivitamin (Daily Multi-Vitamin 1 tab PO DAILY 12/03/21 01/02/25 History tablet) escitalopram oxalate 10 mg tablet 10 mg PO DAILY 06/17/22 01/02/25 History lisinopril 40 mg tablet 40 mg PO BID 01/21/23 01/02/25 History metformin 1,000 mg tablet 1,000 mg PO BID 01/22/23 01/02/25 History pantoprazole 40 mg tablet,delayed 40 mg PO DAILY 02/21/24 01/02/25 History release gabapentin 100 mg capsule 100 mg PO BID 03/11/24 01/02/25 History lorazepam 0.5 mg tablet 0.5 mg PO HS 03/11/24 01/02/25 History furosemide 20 mg tablet 20 mg PO DAILY 30 days #0 tabs 03/13/24 01/02/25 Rx ferrous sulfate 325 mg (65 mg 325 mg PO DAILY 06/27/24 01/02/25 History iron) tablet (FeroSul) magnesium oxide 400 mg (241.3 mg 400 mg PO BID 06/27/24 01/02/25 History magnesium) tablet ipratropium 0.5 mg-albuterol 3 mg 3 ml inhalation QID 90 days #270 mL 10/16/24 01/02/25 Rx (2.5 mg base)/3 mL nebulization soln metoprolol succinate 100 mg 100 mg PO DAILY 01/02/25 01/02/25 History tablet,extended release 24 hr New Prescriptions to Start Prescriptions: Allergies Allergy/AdvReac Type Severity Reaction Status Date / Time Iodinated Contrast Media Allergy Mild Unknown Verified 10/16/24 11:49 allergy reaction naproxen Allergy Mild Unknown Verified 10/16/24 11:49 allergy reaction Results Laboratory Findings 01/02/25 05:59 01/02/25 05:59 Abnormal lab findings: Abnormal Labs 01/01/25 01/02/25 01/02/25 23:01 03:23 05:59 WBC 11.6 H RBC 3.77 L 3.37 L Hgb 11.1 L 9.6 L D Hct 33.7 L 30.3 L MPV 10.5 H 10.9 H [place] % (Auto) 9.8 H Neut # (Auto) 8.3 H VBG pCO2 55.2 H VBG Total CO2 29.0 H VBG Lactic Acid 3.2 H Potassium 2.9 L* Chloride 92 L 93 L Carbon Dioxide 35 H 35 H BUN 22 H 23 H Estimated GFR 54 L 54 L Lactate 3.4 H 3.0 H Calcium 8.0 L 7.6 L Alkaline Phosphatase 150 H NT-Pro-B Natriuret Pep 5290 H Total Protein 5.8 L Albumin 3.1 L Assessment and Plan *Assessment and plan (1) Acute exacerbation of chronic obstructive pulmonary disease: Status: Acute Category: Medical Code(s): J44.1 - Chronic obstructive pulmonary disease with (acute) exacerbation (2) Acute and chronic respiratory failure with hypoxia: Status: Acute Category: Medical Code(s): J96.21 - Acute and chronic respiratory failure with hypoxia Plan Ms. Stone is a 74-year-old female greater than [id number] smoking history prior smoker. COPD, chronic hypoxic respiratory failure, kyphosis history of CVA with right-sided weakness, CABG, CHF presented to the ER with worsening respiratory distress cough and productive phlegm and pulmonary was called for further evaluation and management. Patient went presented to ER received nebulization therapies with no significant improvement in her symptoms and was eventually admitted to the hospital. She previously had episodes of right middle lobe pneumonia status post levofloxacin completion. Neutrophil predominant leukocytosis upon admission improving. Procalcitonin within normal limits. COVID-19 and flu PCR panel negative. Blood gas upon admission mild hypercarbic respiratory failure with a pH of 7.31 and pCO2 55.2. Chest x-ray upon admission no dense consolidative/airspace changes. Low lung volumes. Small left pleural effusion. On examination no respiratory distress. No significant wheezing noted on auscultation. Plan: Trelegy 100 inhaler along with DuoNebs 4 times daily as needed Prednisone 40 mg daily to complete a total of 5-day course Continue ceftriaxone and azithromycin blood culture results, will have low threshold to de-escalate antibiotics Volume optimization as per primary team and cardiology
--- NOTE | 2025-01-02 13:48 | P.DS_ITS ---
<Statement entered by Nathan Mix MD - 01/03/25 11:51> Agree with plan of care as outlined by the WOODWORK TEACHER. General Admission date:: 01/02/25 Discharge date: 01/02/25 HPI HPI HPI: This is a 74-year-old female who is well-known to our service line and has a past medical history significant for home O2 dependency at 2 L, COPD, pulmonary emphysema, pericardial effusion, diabetes, hyperlipidemia, coronary artery disease, dementia, cataracts, SVT, and congestive heart failure with preserved ejection fraction who presents with a chief complaint of shortness of air. While at home, patient is room air saturations were 50%. Patient was given a nebulizer treatment and did not improve, so she was transition to [facility] for further workup. While in emergency room, patient's oxygen saturation were 70% she was given a nebulizer treatment, and her oxygen saturation improved on 3 L of oxygen by nasal cannula. Plain films obtained in the emergency room were consistent with new versus pleural effusion-per my independent read/still pending final read by radiologist. As a result, patient has been admitted for further management. During my evaluation of patient, patient was resting comfortably without any significant respiratory distress noted. She voices having the a for symptomology which started acutely. Despite her nebulizer, patient's symptoms did not improve. Patient has a chronic hypercapnic respiratory failure and may benefit from home trilogy machine. She is currently denying any chest pain, lightheadedness, dizziness, PND, orthopnea, lower extremity swelling, nausea, vomiting, fever, chills, rigors, or diarrhea. Family member at the bedside states patient is incontinent of stool.. Additional pertinent vitals obtained include a white blood cell count 11.6, red blood cell count of 3.77, 1, hematocrit 33.7, pCO2 of 55.2, bicarb 29, chloride of 92, carbon oxide of 35, BUN of 22, GFR 54, calcium of 8, alkaline phosphate at 150, BNP of 5290, total protein 5.8, and albumin of 3.1. Hospital Course Hospital Course Hospital Course: Ms. Stone is a 74-year-old female who was admitted from the emergency department early this morning for COPD exacerbation, acute on chronic hypercapnic hypoxic respiratory failure, left lower lobe CAP. Patient has a primary medical history of hypertension, hyperlipidemia, CABG, CVA, CAD, mood disorder, dementia, HFpEF, COPD with chronic O2 use, type 2 diabetes, anxiety, GERD. Patient at baseline wears 2-3 L of O2, patient was requiring 4 L O2 on admission. Patient was treated with azithromycin, ceftriaxone, and oral steroids. Patient was also given 1 dose of IV Lasix 40 mg for an elevated BNP of 5000. Patient follows with Dr. Wright, pulmonology, outpatient. Pulmonology consulted for recommendations. Plan of care was as follows: #CAP, left lower lobe #Leukocytosis, resolved #Acute on chronic hypercapnic, hypoxic respiratory failure #COPD exacerbation #HFpEF #Elevated BNP ?Chest x-ray obtained showed no acute findings. X-ray was reviewed by ER physician who felt there may be some left lower lobe pneumonia noted on x-ray. Patient also had left lower lobe crackles on exam. Assessment this morning reveals lungs CTA. Patient states she feels back to baseline. Patient maintaining O2 saturation greater than 90% on 2 L nasal cannula. ?Pulmonology consulted, recommended Trelegy inhaler daily and continued course of prednisone 40 mg x 4 more days, and cefdinir 300 mg twice daily x 4 more days. Patient should continue DuoNebs 4 times daily. ?Discussed using BiPAP during the night, patient states she does not want to use the BiPAP. ?Patient does not appear volume overloaded, repeat echo showed normal LVEF of 55%. It also showed septal flattening, consistent with right sided pressure/volume overload. Due to this finding and hypoxic episode, we will increase Lasix to 40 mg daily. ?Patient will follow-up with both pulmonology and cardiology in 1 week for evaluation. #Hypokalemia ? Patient potassium on admission was 3.6. Repeat potassium this morning 2.9. Patient given 2 doses of oral potassium 40 mEq. Potassium likely decreased due to increase in Lasix. Will discharge patient home on potassium 40 mEq daily x 7 days. Patient should have potassium rechecked at PCP follow-up next week. #Generalized weakness ? Patient was evaluated by PT/OT. Patient is unable to ambulate at baseline due to previous CVA and left-sided deficits. PT/OT evaluation recommended placement. Discussed this with patient and daughter (POA) who states that the patient transitions weekly between each of her daughters homes. Home health was offered but patient and family declined. Patient is well cared for at each family member's home and states she enjoys her current living situation. Home medication: Continue pantoprazole 40 mg daily, multivitamin daily, metoprolol succinate 100 mg daily, metformin 1000 mg twice daily, momentum 10 mg twice daily, mag oxide 400 mg twice daily, lorazepam 0.5 mg at bedtime, lisinopril 40 mg twice daily, isosorbide 30 mg daily, gabapentin 100 mg twice daily, iron 325 mg daily, escitalopram 10 mg daily, dons a pill 5 mg daily, vitamin D3 25 mcg at bedtime, atorvastatin 80 mg at bedtime, aspirin 325 mg daily, and amlodipine 5 mg daily. Total time spent on discharge 35 minutes in counseling, documentation, chart review, and direct care with patient. Exam Data for Last 24 hours Vital signs and Labs for Last 24 Hours: Temp Pulse Resp BP Pulse Ox O2 Del Method O2 Flow Rate 98.2 F 70 18 141/56 H 93 L Nasal Cannula 2 01/02/25 08:00 01/02/25 11:56 01/02/25 08:00 01/02/25 08:00 01/02/25 11:56 01/02/25 11:56 01/02/25 11:56 Laboratory Results - last 24 hr 01/01/25 23:01: WBC 11.6 H, RBC 3.77 L, Hgb 11.1 L, Hct 33.7 L, MCV 89.4, MCH 29.4, MCHC 32.9, RDW 15.3, Plt Count 290, MPV 10.5 H, Neut % (Auto) 71.4, Lymph % (Auto) 21.0, [place] % (Auto) 6.4, Eos % (Auto) 0.6, Baso % (Auto) 0.3, Neut # (Auto) 8.3 H, Lymph # (Auto) 2.5, [place] # (Auto) 0.8, Eos # (Auto) 0.1, Baso # (Auto) 0.0, VBG pH 7.31, VBG pCO2 55.2 H, VBG pO2 37.0, VBG HCO3 27.3, VBG Total CO2 29.0 H, VBG O2 Saturation 60.4, VBG Base Excess 1.1, VBG Lactic Acid 3.2 H, Sodium 137, Potassium 3.6, Chloride 92 L, Carbon Dioxide 35 H, Anion Gap 13.6, BUN 22 H, Creatinine 1.00, Estimated Creat Clear 42, Estimated GFR 54 L, Est GFR ( Amer) 66, Glucose 91, Calcium 8.0 L, Total Bilirubin 0.7, AST 35, ALT 27, Alkaline Phosphatase 150 H, Troponin I < 0.01, NT-Pro-B Natriuret Pep 5290 H , Total Protein 5.8 L, Albumin 3.1 L, Globulin 2.7, Albumin/Globulin Ratio 1.1 01/01/25 23:12: SARS-CoV-2 (PCR) Not detected, Influenza A Untype (PCR) Not det ected, Influenza Type B (PCR) Not detected 01/02/25 02:11: Troponin I < 0.01 01/02/25 03:23: Lactate 3.4 H 01/02/25 05:59: WBC 8.8, RBC 3.37 L, Hgb 9.6 L D, Hct 30.3 L, MCV 89.9, MCH 29.1, MCHC 32.3, RDW 15.6, Plt Count 243, MPV 10.9 H, Neut % (Auto) 58.9, Lymph % (Auto) 29.3, [place] % (Auto) 9.8 H, Eos % (Auto) 1.3, Baso % (Auto) 0.5, Neut # (Auto) 5.2, Lymph # (Auto) 2.6, [place] # (Auto) 0.9, Eos # (Auto) 0.1, Baso # (Auto) 0.0, Sodium 138, Potassium 2.9 L*, Chloride 93 L, Carbon Dioxide 35 H, Anion Gap 12.9, BUN 23 H, Creatinine 1.00, Estimated Creat Clear 45, Estimated GFR 54 L, Est GFR ( Amer) 66, Glucose 81, Hemoglobin A1c 5.6, Lactate 3.0 H, Calcium 7.6 L, Procalcitonin 0.129, TSH 2.91 I & O for Last 24 hours: Intake & Output 12/30/24 12/31/24 01/01/25 01/02/25 23:59 23:59 23:59 23:59 Intake Total 480 / 480 Output Total 150 / 150 Balance 330 / 330 Weight 54.431 kg 57.652 kg Constitutional Constitutional: no acute distress, average body habitus, chronically ill appearing and cooperative *Routine HEENT Exam Head: Present normocephalic and atraumatic ENT: Present mucous membranes moist *Routine Neck Exam Neck: Present supple and full ROM; Absent JVD, carotid bruit or lymphadenopathy *Routine Respiratory Exam Respiratory: Present CTA bilaterally, normal respiratory effort and able to speak in complete sentences; Absent rhonchi, wheezes or crackles *Routine Cardiovascular Exam Cardiovascular: Present RRR, Normal S1 and Normal S2; Absent murmur or gallop *Routine Abdominal Exam Abdominal: Present soft and normoactive bowel sounds; Absent tenderness, distended or organomegaly *Routine Exam Patient deferred: external exam *Routine Extremities Exam Extremities: Present pulses intact and normal capillary refill; Absent cyanosis, clubbing or edema *Routine Skin Exam Skin: Present intact, dry and warm; Absent erythema *Routine Neurological Exam Neurological: Present alert, oriented X3 and CN II-XII intact Comments: risidual left sided deficits Routine Psychiatric Exam Psychiatric: Present normal affect Results Data Completed and Pending Labs on day of discharge: Labs from last 24 hours 01/02/25 01/02/25 01/02/25 05:59 03:23 02:11 WBC 8.8 RBC 3.37 L Hgb 9.6 L D Hct 30.3 L MCV 89.9 MCH 29.1 MCHC 32.3 RDW 15.6 Plt Count 243 MPV 10.9 H Neut % (Auto) 58.9 Lymph % (Auto) 29.3 [place] % (Auto) 9.8 H Eos % (Auto) 1.3 Baso % (Auto) 0.5 Neut # (Auto) 5.2 Lymph # (Auto) 2.6 [place] # (Auto) 0.9 Eos # (Auto) 0.1 Baso # (Auto) 0.0 VBG pH VBG pCO2 VBG pO2 VBG HCO3 VBG Total CO2 VBG O2 Saturation VBG Base Excess VBG Lactic Acid Sodium 138 Potassium 2.9 L* Chloride 93 L Carbon Dioxide 35 H Anion Gap 12.9 BUN 23 H Creatinine 1.00 Estimated Creat Clear 45 Estimated GFR 54 L Est GFR ( Amer) 66 Glucose 81 Hemoglobin A1c 5.6 Lactate 3.0 H 3.4 H Calcium 7.6 L Total Bilirubin AST ALT Alkaline Phosphatase Troponin I < 0.01 NT-Pro-B Natriuret Pep Total Protein Albumin Globulin Albumin/Globulin Ratio Procalcitonin 0.129 TSH 2.91 SARS-CoV-2 (PCR) Influenza A Untype (PCR) Influenza Type B (PCR) 01/01/25 01/01/25 23:12 23:01 WBC 11.6 H RBC 3.77 L Hgb 11.1 L Hct 33.7 L MCV 89.4 MCH 29.4 MCHC 32.9 RDW 15.3 Plt Count 290 MPV 10.5 H Neut % (Auto) 71.4 Lymph % (Auto) 21.0 [place] % (Auto) 6.4 Eos % (Auto) 0.6 Baso % (Auto) 0.3 Neut # (Auto) 8.3 H Lymph # (Auto) 2.5 [place] # (Auto) 0.8 Eos # (Auto) 0.1 Baso # (Auto) 0.0 VBG pH 7.31 VBG pCO2 55.2 H VBG pO2 37.0 VBG HCO3 27.3 VBG Total CO2 29.0 H VBG O2 Saturation 60.4 VBG Base Excess 1.1 VBG Lactic Acid 3.2 H Sodium 137 Potassium 3.6 Chloride 92 L Carbon Dioxide 35 H Anion Gap 13.6 BUN 22 H Creatinine 1.00 Estimated Creat Clear 42 Estimated GFR 54 L Est GFR ( Amer) 66 Glucose 91 Hemoglobin A1c Lactate Calcium 8.0 L Total Bilirubin 0.7 AST 35 ALT 27 Alkaline Phosphatase 150 H Troponin I < 0.01 NT-Pro-B Natriuret Pep 5290 H Total Protein 5.8 L Albumin 3.1 L Globulin 2.7 Albumin/Globulin Ratio 1.1 Procalcitonin TSH SARS-CoV-2 (PCR) Not detected Influenza A Untype (PCR) Not detected Influenza Type B (PCR) Not detected DS: Diagnosis Discharge Diagnosis (1) Acute exacerbation of chronic obstructive pulmonary disease: Status: Acute Code(s): J44.1 - Chronic obstructive pulmonary disease with (acute) exacerbation (2) Acute and chronic respiratory failure with hypoxia: Status: Acute Code(s): J96.21 - Acute and chronic respiratory failure with hypoxia (3) Left lower lobe pneumonia: Status: Acute Code(s): J18.9 - Pneumonia, unspecified organism (4) Elevated brain natriuretic peptide (BNP) level: Status: Acute Code(s): R79.89 - Other specified abnormal findings of blood chemistry (5) COPD (chronic obstructive pulmonary disease): Status: Acute Code(s): J44.9 - Chronic obstructive pulmonary disease, unspecified Qualifiers: COPD type: unspecified COPD Qualified Code(s): J44.9 - Chronic obstructive pulmonary disease, unspecified (6) Diabetes mellitus: Status: Acute Code(s): E11.9 - Type 2 diabetes mellitus without complications Qualifiers: Diabetes mellitus type: type 2 Diabetes mellitus complication status: without complication Diabetes mellitus termite helper insulin use: without termite helper use Qualified Code(s): E11.9 - Type 2 diabetes mellitus without complications (7) Hypertension: Status: Acute Code(s): I10 - Essential (primary) hypertension Qualifiers: Hypertension type: primary hypertension Qualified Code(s): I10 - Essential (primary) hypertension (8) History of CVA (cerebrovascular accident): Status: Chronic Code(s): Z86.73 - Personal history of transient ischemic attack (TIA), and cerebral infarction without residual deficits (9) CAD (coronary artery disease): Status: Acute Code(s): I25.10 - Atherosclerotic heart disease of [place] coronary artery without angina pectoris Qualifiers: Coronary Disease-Associated Artery/Lesion type: [place] artery [place] vs. transplanted heart: [place] heart Associated angina: without angina Qualified Code(s): I25.10 - Atherosclerotic heart disease of [place] coronary artery without angina pectoris (10) Hypokalemia: Status: Acute Code(s): E87.6 - Hypokalemia (11) (HFpEF) heart failure with preserved ejection fraction: Status: Acute Code(s): I50.30 - Unspecified diastolic (congestive) heart failure Meds Home Medications and Allergies Home Medications ?Medication ?Instructions ?Recorded ?Confirmed ?Type atorvastatin 80 mg tablet 80 mg PO HS 04/05/17 5 History aspirin 325 mg tablet 325 mg PO DAILY 09/14/1712/19 History isosorbide mononitrate 30 mg 30 mg PO DAILY 03/26/18 1 History tablet,extended release 24 hr amlodipine 5 mg tablet 5 mg PO DAILY 05/20/1901/02 History cholecalciferol (vitamin D3) 25 25 mcg PO HS 03/13/20 01/02/25 History mcg (1,000 unit) capsule memantine 10 mg tablet 10 mg PO BID 09/18/20 History donepezil 5 mg tablet 5 mg PO DAILY 05/21/2101/02 History multivitamin (Daily Multi-Vitamin 1 tab PO DAILY 12/0301/02/25 History tablet) escitalopram oxalate 10 mg tablet 10 mg PO DAILY 06/1701/02/25 History lisinopril 40 mg tablet 40 mg PO BID 01/21/23 History metformin 1,000 mg tablet 1,000 mg PO BID 01/22/2312/19 History pantoprazole 40 mg tablet,delayed 40 mg PO DAILY 02/2001/02/25 History release gabapentin 100 mg capsule 100 mg PO BID 03/11/2401/02 History lorazepam 0.5 mg tablet 0.5 mg PO HS 03/11/24 History ferrous sulfate 325 mg (65 mg 325 mg PO DAILY 06/27/24 01/02/25 History iron) tablet (FeroSul) magnesium oxide 400 mg (241.3 mg 400 mg PO BID 5 01/02/25 History magnesium) tablet ipratropium 0.5 mg-albuterol 3 mg 3 ml inhalation QID 90 days #270 mL 10/16/24 01/02/25 Rx (2.5 mg base)/3 mL nebulization soln cefdinir 300 mg capsule 300 mg PO BID #8 caps Rx fluticasone fur. 100 mcg-umeclid 1 inh inhalation MAILE Y #60 ea 01/02/25 Rx 62.5 mcg-vilant 25 mcg inhalat.powder (Trelegy Ellipta) furosemide 20 mg tablet 40 mg (2 x 20 mg) PO DAILY 3 0 days 01/02/25 01/02/25 Rx #0 tabs furosemide 20 mg tablet (Lasix) 20 mg PO DAILY #30 tab s 01/02/25 Rx metoprolol succinate 100 mg 100 mg PO DAILY 01/02/25 1 History tablet,extended release 24 hr potassium chloride 20 mEq 40 meq (2 x 20 mEq) PO DAILY #14 01/02/25 Rx tablet,extended release (K-Tab) tabs prednisone 20 mg tablet 40 mg (2 x 20 mg) PO DAILY 4 days 01/02/25 Rx #8 tabs New Prescriptions to Start Prescriptions: cefdinir Jyothi Woo [id number] [Trelegy Ellipta] Jyothi Woo furosemide [Lasix] Jyothi Woo potassium chloride [K-Tab] Jyothi Woo prednisone Jyothi Woo Allergies Allergy/AdvReac Type Severity Reaction Status Date / Time Iodinated Contrast Media Allergy Mild Unknown Verified 10/16/24 11:49 allergy reaction naproxen Allergy Mild Unknown Verified 10/16/24 11:49 allergy reaction Discharge Plan Disposition Patient Disposition: Home, Self-Care Condition: Good Follow up Plan Follow up with: Italo Woo PA [Physician Windows Technical Specialist, Cardiology] - 01/09/25 8:30 am Claudio Wright MD [Physician, Pulmonology] - 01/09/25 11:20 am Roe Gleason MD [Staff Physician, Internal Medicine] - 01/08/25 11:15 am Prescriptions/Medication Reconciliation: New prednisone 20 mg Tablet 40 mg PO DAILY 4 Days Qty: 8 0RF Trelegy Ellipta 100-62.5-25 mcg blister with device 1 inh inhalation DAILY Qty: 60 0RF cefdinir 300 mg capsule 300 mg PO BID Qty: 8 0RF potassium chloride [K-Tab] 20 mEq tablet extended release 40 meq PO DAILY Qty: 14 0RF furosemide [Lasix] 20 mg tablet 20 mg PO DAILY Qty: 30 0RF Continued atorvastatin 80 mg tablet 80 mg PO HS aspirin 325 mg tablet 325 mg PO DAILY multivitamin [Daily Multi-Vitamin] Tablet 1 tab PO DAILY escitalopram oxalate 10 mg tablet 10 mg PO DAILY Patient Comments: TAKE 1 TABLET BY MOUTH ONCE DAILY. pantoprazole 40 mg tablet,delayed release (DR/EC) 40 mg PO DAILY Patient Comments: ONE (1) TAB(S) ORALLY ONCE A DAY 90 DAYS cholecalciferol (vitamin D3) 25 mcg (1,000 unit) capsule 25 mcg PO HS memantine 10 mg tablet 10 mg PO BID Patient Comments: TAKE 1 TABLET BY MOUTH TWICE DAILY. donepezil 5 mg tablet 5 mg PO DAILY ipratropium-albuterol 0.5 mg-3 mg(2.5 mg base)/3 mL solution for nebulization 3 ml inhalation QID 90 Days Qty: 270 2RF isosorbide mononitrate 30 MG tablet 30 mg PO DAILY lisinopril 40 mg tablet 40 mg PO BID metformin 1,000 mg tablet 1,000 mg PO BID Patient Comments: TAKE 1 TABLET BY MOUTH TWICE DAILY gabapentin 100 mg capsule 100 mg PO BID Patient Comments: TAKE 1 CAPSULE BY MOUTH TWICE DAILY lorazepam 0.5 mg tablet 0.5 mg PO HS magnesium oxide 400 mg (241.3 mg magnesium) tablet 400 mg PO BID Patient Comments: TAKE 1 TABLET BY MOUTH TWICE DAILY ferrous sulfate [FeroSul] 325 mg (65 mg iron) tablet 325 mg PO DAILY Patient Comments: TAKE ONE (1) TABLET BY MOUTH DAILY ,TAKE WITHVITAMINC amlodipine 5 MG tablet 5 mg PO DAILY metoprolol succinate 100 mg tablet extended release 24 hr 100 mg PO DAILY Patient Comments: TAKE 1 TABLET BY MOUTH ONCE DAILY Changed furosemide 20 mg tablet 40 mg PO DAILY 30 Days Qty: 0 0RF Patient Comments: TAKE 1 TABLET BY MOUTH DAILY. Problem Reconciliation Problems Reviewed?: Yes Patient Discharge Instructions ACTIVITY: Continue current activity and Up with assistance DIET: continue same diet Print Language: [place] Providers Primary Care Provider: Provider,Referral Admit Provider: Nathan Mix Attending Provider: Nathan Mix
[2025-01-02] MEDS: humaLOG 100 UNITS/ML 10ML VIAL (SSI) SUBCUT (16:44)
[2025-01-02 17:02] LABS: POC Glucose,Bedside 401 gm/dL (70-110)
[2025-01-02 21:23] LABS: POC Glucose,Bedside 137 gm/dL (70-110)
--- NOTE | 2025-01-06 10:39 | SW/DCPLANNER ---
Spoke with patient's daughter on the phone. Patient's daughter stated that she is doing great. Patient's daughter stated that she is aware of her moms upcoming appointments. Patients daughter stated that she was able to get her moms new medicine picked up. Patient's daughter stated that she has no concerns or questions at this time. Boaz Ferreira
== END 2025-01-02 18:30 | disposition home or self-care (01) ==
LOC: ER 22:59 → 2ND 01-02 00:14
PROVIDERS: Nurse Practitioner Family; Admitting Provider Student in an Organized Health Care Education/Training Program; Emergency Provider Emergency Medicine; Visit Provider Student in an Organized Health Care Education/Training Program
DX: J18.9 Pneumonia, unspecified organism (principal); J44.1 Chronic obstructive pulmonary disease with (acute) exacerbation; J96.21 Acute and chronic respiratory failure with hypoxia; J96.22 Acute and chronic respiratory failure with hypercapnia; I11.0 Hypertensive heart disease with heart failure; D72.829 Elevated white blood cell count, unspecified; R79.89 Other specified abnormal findings of blood chemistry; J90 Pleural effusion, not elsewhere classified; E11.9 Type 2 diabetes mellitus without complications; I25.10 Atherosclerotic heart disease of native coronary artery without angina pectoris; E87.6 Hypokalemia; I50.31 Acute diastolic (congestive) heart failure; F41.9 Anxiety disorder, unspecified; J43.9 Emphysema, unspecified; E78.5 Hyperlipidemia, unspecified; F03.90 Unspecified dementia, unspecified severity, without behavioral disturbance, psychotic disturbance, mood disturbance, and anxiety; Z66 Do not resuscitate; Z87.891 Personal history of nicotine dependence; Z95.1 Presence of aortocoronary bypass graft; Z86.73 Personal history of transient ischemic attack (TIA), and cerebral infarction without residual deficits; Z91.041 Radiographic dye allergy status; Z88.6 Allergy status to analgesic agent; Z99.81 Dependence on supplemental oxygen; Z79.82 Long term (current) use of aspirin; Z79.84 Long term (current) use of oral hypoglycemic drugs; Z79.899 Other long term (current) drug therapy
CPT/HCPCS: 36415; 71045; 80048; 80053; 82803; 82962; 83036; 83605; 83880; 84145; 84443; 84484; 85025; 87040; 87636; 89220; 93005; 93306; 94640; 96372; 96374; 96375; 96376; 97162; 97166; 99285; G0378; J0456; J0696; J1644; J1938; J7050

== ENCOUNTER 2025-01-11 15:28 | Inpatient (IN) | payer MEDICARE, MEDICAID, SELFPAY ==
--- OUTSIDE RECORDS SUMMARY | 2024-11-19 06:15 | XMS_ITS ---
Author Organization [facility] JANEE Address [address] [place] [address] Care Team Providers Care Dramatic Arts Historian Name Role Phone Roe Gleason Primary Care Provider Allergies Allergen (clinical drug ingredient) Drug/Non Drug Allergy documented on EMR Reaction Allergy Type Onset Date Status naproxen Naproxen Unknown Drug Allergy Active REASON FOR VISIT f/u Medications Medication SIG (Take, Route, Frequency, Duration) Notes Start Date End Date Status metFORMIN HCl 1000 MG ONE (1) TAB(S) ORA LLY TWO (2) TIMES A DAY 90 DAYS; Duration: 90 Active FeroSul 325 (65 Fe) MG TAKE ONE (1) TABL ET BY MOUTH DAILY ,TAKE WITHVITAMINC; Duration: 90 Active Tab-A-[place] - TAKE ONE (1) TABLET BY MOUTH EVERY DAY; Duration: 90 Active Amoxicillin-Pot Clavulanate 875-125 MG 1 tablet Orally every 12 hrs; Duration: 7 days 10/09/2024 Active Nystatin 983296 UNIT/GM 1 application Externally Twice a day; Duration: 7 days As needed rash in underwear area. 10/09/2024 Active Magnesium Oxide -Mg Supplement 400 (240 Mg) MG TAKE 1 TABLET BY MOUTH TWICE DAILY; Duration: 90 Active LORazepam 0.5 MG TAKE 1 TABLET BY CLARA TH EVERY DAY; Duration: 30 09/13/2024 Active Isosorbide Mononitrate ER 30 MG TAKE 1 TABLET BY MOUTH EVERY DAY; Duration: 90 Active Vitamin D3 25 MCG (1000 UT) TAKE ONE (1) TABLET BY MOUTH EVERY DAY; Duration: 90 Active Gabapentin 100 MG TAKE 1 CAPSULE BY MO UTH TWICE DAILY; Duration: 30 09/13/2024 Active amLODIPine Besylate 5 MG ONE (1) TAB(S) ORALLY ONCE A DAY 90 DAYS; Duration: 90 Active Metoprolol Succinate ER 100 MG 1 tablet Orally Once a day; Duration: 180 days Active Donepezil HCl 5 MG TAKE 1 TABLET BY CLARA TH EVERY DAY WITH BREAKFAST; Duration: 90 Active Atorvastatin Calcium 80 MG TAKE ONE (1) TABLET BY MOUTH EVERY NIGHT AT BEDTIME; Duration: 90 Active Lisinopril 40 MG ONE (1) TAB(S) ORALL Y TWO (2) TIMES A DAY 90 DAYS; Duration: 90 Active Pantoprazole Sodium 40 MG ONE (1) TAB(S) ORALLY ONCE A DAY 90 DAYS; Duration: 90 Active Furosemide 20 MG TAKE ONE (1) TABLET BY MOUTH EVERY DAY; Duration: 90 Active Memantine HCl 10 MG TAKE ONE (1) TABLET BY MOUTH TWICE DAILY; Duration: 150 Active Escitalopram Oxalate 10 MG 1 tab(s) oral ly once a day; Duration: 90 days Active Nystatin 756358 UNIT/GM 1 application Ex ternally three times daily till clear; Duration: 14 days 07/04/2024 Active Ipratropium Applegate 0.02 % 2.5 mL by neb ulizer 4 times a day; Duration: 30 days 11/16/2023 Active Albuterol Sulfate (2.5 MG/3ML) 0.083% 3 mL by nebulizer 4 times a day; Duration: 30 days 11/16/2023 Active ASPIRIN EC 325 MG TAKE ONE (1) TABLET BY MOUTH EVERY DAY; Duration: 90 Active Proctosol HC 2.5 % 1 taya applied topica lly 3 times a day; Duration: 14 days 03/21/2024 Active Immunizations Vaccine Route Administration Date Status Comme nts Fluzone High Dose IM Intramuscular 11/19/2024 Administered Social History Tobacco Use: Social History Observation Description Date Details (start date - stop date) Former Smoker NA - NA Smoking: Question Answer Notes Are you a: former smoker How long has it been since you last smoked? 3-6 months Vital Signs Temperature 98.2 degrees Fahrenheit 11/20/19 25 Heart Rate 80 /min 11/19/2024 Blood pressure systolic 112 mm Hg 11/20/19 25 Blood pressure diastolic 60 mm Hg 025 Height 61.5 in 11/19/2024 Weight 117 lbs 11/19/2024 BMI 21.75 kg/m2 11/19/2024 Encounters Encounter Location Date Provider Diagnosis [address] [address] 11/19/2024 Roe Gleason Chronic hypoxic respiratory failure J96.11 ; Dysphagia, unspecified type R13.10 ; Alzheimer's disease, unspecified G30.9 ; Coronary artery disease involving chenega heart, unspecified vessel or lesion type, unspecified whether angina present I25.10 ; Encounter for immunization Z23 and Immunization(s) administered Z23 Assessments Encounter Date Diagnosis (ICD Code) Assessment Notes Treatment Notes Treatment Clinical Notes Section Notes 11/19/2024 Chronic hypoxic respiratory failure (ICD-10 - J96.11) Appears comfortable today, on oxygen. Remains a good candidate for hospice, discussed this again with daughter. They are open to this, they will see pulmonary and get their opinion and then make a decision if they can work it out with a different living arrangements that the patient has. Otherwise no changes. I will see her back in 2 months. We will administer flu shot today 11/19/2024 Dysphagia, unspecified type (ICD-10 - R13.10) Aspiration precautions discussed, they will try to do a back brace to help with her kyphosis while she is eating. 11/19/2024 Alzheimer's disease, unspecified (ICD-10 - G30.9) No changes in plan, no behavioral problems. Memory remains significantly impaired 11/19/2024 Coronary artery disease involving chenega heart, unspecified vessel or lesion type, unspecified whether angina present (ICD-10 - I25.10) Cardiology has released patient for a year. I will do med refills as needed 11/19/2024 Encounter for immunization (ICD-10 - Z23) 11/19/2024 Immunization(s) administered (ICD-10 - Z23) Plan Of Treatment Treatment Notes Assessment Notes Chronic hypoxic respiratory failure Appears comfortable today, on oxygen. Remains a good candidate for hospice, discussed this again with daughter. They are open to this, they will see pulmonary and get their opinion and then make a decision if they can work it out with a different living arrangements that the patient has. Otherwise no changes. I will see her back in 2 months. We will administer flu shot today Dysphagia, unspecified type Aspiration p recautions discussed, they will try to do a back brace to help with her kyphosis while she is eating. Alzheimer's disease, unspecified No changes in plan, no behavioral problems. Memory remains significantly impaired Coronary artery disease invo lving chenega heart, unspecified vessel or lesion type, unspecified whether angina present Cardiology has released patient for a ye ar. I will do med refills as needed Next Appt Details Follow Up: prn, Reason: Provider Name:Roe Gleason, 01/23/2025 11:45:00 AM, [address] [address], [place], [address], Progress Notes * Margarita STONEDOB:1950 (74 yo F)Acc No.[id number]:11/19/2024 Progress Notes Patient: Ludwin Margarita HOUGH Provider: Arleen Gleason MD :1950 A ge:74 Y S ex:Female Date:11/19/2024 Address:[facility] [address] [place], [id number] Subjective: * Chief Complaints: * 1 . F/u. * HPI: g en: Patient is here to follow-up her significant and end-stage COPD. Remains at home rotating around to different homes of her daughters. Seems to do well with this. Oral intake is hidden mass. Weight is about the same. We discussed hospice care at last visit. Family is receptive, hospice has been to see them, they have to work out some details because one of the weeks of the month she lives in [facility] which is a different hospice group than her normal residence at [facility]. 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 Otherwise seems comfortable. Speech therapy saw her at home and recommended continued aspiration precautions. * Medical History: H [place], Hyperlipidemia, CVA - sxs resolve except for word finding issues., NIDDM, Refuses mammography, negative cologuard screening October 2016 and 05/2021, Normal eye examination fall 2016, normal bone density test on May/2018. * Surgical History: C ABG 2012, hysterectomy , rt eye- cataract surgery 10/2023. * Hospitalization/Major Diagno stic Procedure: edward villegas , [facility]-UTI, Dehydration 12/2018, uti 05/2019, [place] 01/2023, [facility]- Low oxygen, pneumonia left lung, fluid around heart. 03/11/24-03/13/24, [facility] 06/27-07/2014. * Family History: F ather: . M other: , diagnosed with Diabetes, Heart Disease. P aternal Grand Father: . P aternal Grand Mother: . M aternal Grand Father: . M aternal Grand Mother: . S iblings: alive, 1 brother, 1 sister living3 brothers [...] no. Occupation: disability. * Medications: T aking Ipratropium Applegate 0.02 % Solution 2.5 mL by nebulizer 4 times a day , Taking Albuterol Sulfate (2.5 MG/3ML) 0.083% Nebulization Solution 3 mL by nebulizer 4 times a day , Taking ASPIRIN EC 325 MG DELAYED RELEASE TABLET TAKE ONE (1) TABLET BY MOUTH EVERY DAY , Taking Proctosol HC 2.5 % Cream 1 taya applied topically 3 times a day , Taking Escitalopram Oxalate 10 MG Tablet 1 tab(s) orally once a day , Taking Nystatin 588928 UNIT/GM Ointment 1 application Externally three times [...] 100 MG Tablet Extended Release 24 Hour 1 tablet Orally Once a day , Taking Donepezil HCl 5 MG Tablet [...] TABLET BY MOUTH EVERY DAY , Taking Vitamin D3 25 MCG (1000 UT) Tablet TAKE ONE (1) TABLET BY MOUTH EVERY DAY , Taking Gabapentin 100 MG Capsule TAKE 1 CAPSULE BY MOUTH TWICE DAILY , Taking Magnesium Oxide -Mg Supplement 400 (240 Mg) MG Tablet TAKE 1 TABLET BY MOUTH TWICE DAILY , Taking LORazepam 0.5 MG Tablet TAKE 1 TABLET BY MOUTH EVERY DAY , Taking metFORMIN HCl 1000 MG Tablet ONE (1) TAB(S) ORALLY TWO (2) TIMES A DAY 90 DAYS , Taking FeroSul 325 (65 Fe) MG Tablet TAKE ONE (1) TABLET BY MOUTH DAILY ,TAKE WITHVITAMINC , Taking Tab-A-[place] - Tablet TAKE ONE (1) TABLET BY MOUTH EVERY DAY , Taking Amoxicillin-Pot Clavulanate 875-125 MG Tablet 1 tablet Orally every 12 hrs , Taking Nystatin 194808 UNIT/GM Ointment 1 application Externally Twice a day As needed rash in underwear area., Medication List reviewed and reconciled with the patient * Allergies: N aproxen. Objective: * Vitals: N urse: sw, Pain: 0, Temp: 98.2, RR: 18, HR: 80, BP: 112/60, Ht: 61.5, Wt: 117, BMI:21.75. * Examination: G eneral Examination: General P leasant and Cooperative, chronically ill fragile appearing, appears mildly SOA Responds to questions with 1 or 2 words. Does not engage in conversation. Seems to be somewhat detached from her environment but orients fairly quickly. Denies pain or dyspnea. Oral cavity: M oist membranes. Chest: n ormal shape and expansion. Heart: R RR, No m/r/g, No edema,. HEENT: N ormal oropharynx. Lungs: D iffuse wheezing and crackles in all lung russell,.? Abdomen: S oft, non-tender, normal bowel sounds, No organomegaly or peritoneal signs.. Neurologic Exam: n o focal signs neurological deficits.? Skin: w ithout acute rashes. Back: n ormal,. neck s upple, n o lymphadenopathy,. Psych N ormal Mood/Affect. Assessment: * Assessment: 1. C hronic hypoxic respiratory failure - J96.11 (Primary) 2 . D ysphagia, unspecified type - R13.10 3 . A lzheimer's disease, unspecified - G30.9 ? 4 . C oronary artery disease involving chenega heart, unspecified vessel or lesion type, unspecified whether angina present - I25.10 5 . E ncounter for immunization - Z23 6 . I mmunization(s) administered - Z23 Plan: * Treatment: 2. D ysphagia, unspecified type Notes: Aspiration precautions discussed, they will try to do a back brace to help with her kyphosis while she is eating. 3. A lzheimer's disease, unspecified Notes: No changes in plan, no behavioral problems. Memory remains significantly impaired 4. C oronary artery disease involving chenega heart, unspecified vessel or lesion type, unspecified whether angina present Notes: Cardiology has released patient for a year. I will do med refills as needed * Immunizations: Fluzone High Dose : 0.7 mL (Route: Intramuscular) given by TESSIE Butler on Left Deltoid (Immunization(s) administered) * Procedure Codes: G 2211 Complex e/[place], [address] Influenza High Dose Vaccine >65 Years Old, G0008 ADMINISTRATION-FLU VACCINE MEDICARE ONLY * Follow Up: p rn * * Sign off status: Completed true * Provider: Arleen Gleason MD Date: 0 11/19/2024 Generated for Dominick harrell/Danica/Sharriitting on: 03:41 PM EDT History and Physical Notes * HPI (History of Present Illness) Category Sub-Category Detail Notes Category Not es gen Patient is here to follow-up her significant and end-stage COPD. Remains at home rotating around to different homes of her daughters. Seems to do well with this. Oral intake is hidden mass. Weight is about the same. We discussed hospice care at last visit. Family is receptive, hospice has been to see them, they have to work out some details because one of the weeks of the month she lives in [facility] which is a different hospice group than her normal residence at [facility]. 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 Otherwise seems comfortable. Speech therapy saw her at home and recommended continued aspiration precautions. Examination Category Sub-Category Detail Notes Category Not es General Examination HEENT: Normal oropharynx Heart: RRR, No m/r/g, No ed ja, Lungs: Diffuse wheezing and crackles in all lung russell, Abdomen: Soft, non-tender, no rmal bowel sounds, No organomegaly or peritoneal signs. Skin: without acute rashes Neurologic Exam: no focal signs neuro logical deficits Oral cavity: Moist membranes Back: normal, Chest: normal shape and exp ansion neck supple, no lymphaden opathy, General Pleasant and Coopera tive, chronically ill fragile appearing, appears mildly SOA Responds to questions with 1 or 2 words. Does not engage in conversation. Seems to be somewhat detached from her environment but orients fairly quickly. Denies pain or dyspnea Psych Normal Mood/Affect
--- OUTSIDE RECORDS SUMMARY | 2025-01-09 05:30 | XMS_ITS ---
Author Organization [facility] PE D JANEE Address [address] [place] [address] Care Team Providers Care Draw Frame Operator Name Role Phone Roe Gleason Primary Care Provider [phone] REASON FOR VISIT med ck Encounters Encounter Location Date Provider Diagnosis [address] [address] 01/09/2025 Roe Gleason Plan Of Treatment Next Appt Details Provider Name:Roe Gleason, 01/23/2025 11:45:00 AM, [address] [place] [address], [id number], Progress Notes * Margarita STONEDOB:1950 (74 yo F)Acc No.[id number]:01/09/2025 Progress Notes Patient: Ludwin HOUGH Margarita Montes De Oca Provider: Arleen Gleason MD :1950 A ge:74 Y S ex:Female Date:01/09/2025 Address:[id number] Subjective: * Chief Complaints: * 1 . Med ck. * Medical History: Objective: * Vitals: Assessment: Plan: * Treatment: * * Electronic signature of Drew Gleason MD FAAP on 01/11/2025 at 03:41 PM EDT Sign off status: Pending * Provider: Arleen Gleason MD Date: 1 Generated for Dominick harrell/Danica/Marco on: 03:41 PM EDT
--- OUTSIDE RECORDS SUMMARY | 2025-01-09 08:30 | XMS_ITS ---
Author Organization [facility] D JANEE Address [address] [place] [address] Care Team Providers Care Ring Making Machine Operator Name Role Phone Roe Gleason Primary Care Provider Allergies Allergen (clinical drug ingredient) Drug/Non Drug Allergy documented on EMR Reaction Allergy Type Onset Date Status naproxen Naproxen Unknown Drug Allergy Active REASON FOR VISIT [facility] D/C 01/02/2025, labs Medications Medication SIG (Take, [...] DAY 90 DAYS; Duration: 90 Active Nystatin 583688 UNIT/GM 1 application Ex ternally three times [...] day; Duration: 30 days 11/16/2023 Active Ipratropium [place] 0.02 % 2.5 mL by neb ulizer [...] Signs Temperature 97.9 degrees Fahrenheit 01/10/20 25 Heart Rate 74 /min 01/09/2025 Blood pressure systolic 118 mm Hg 01/10/20 25 Blood pressure diastolic 58 mm Hg 025 Height 61.5 in 01/09/2025 Weight 127 lbs 01/09/2025 BMI 23.61 kg/m2 01/09/2025 Encounters Encounter Location Date Provider Diagnosis [facility] [address] [place] [address] 01/09/2025 Roe Gleason COPD exacerbation J44.1 ; [...] Notes COPD exacerbation Overall seems at bas [place]. Continue inhaler therapy, supportive care, nebulizers, pulmonary [...] Test Name Order Date BASIC METABOLIC PANEL (32645) 01/20/2025 MAGNESIUM (622) 01/20/2025 B TYPE NATRIURETIC PEPTIDE (BNP) (08808) 01/20/2025 Next Appt Details Follow Up: prn,2 Weeks, Reas on: Provider Name:Roe Ramsaycullen, 01/23/2025 11:45:00 AM, [address], [place], [address], Progress Notes * Margarita STONE JDOB:1950 (74 yo F)Acc No.[id number]:01/09/2025 HOSP F/U Patient: Margarita GALEANO Provider: Arleen Gleason MD :1950 A ge:74 Y S ex:Female Date:01/09/2025 Address:[facility] [place], [id number] Subjective: * Chief Complaints: * 1 . [facility] D/C 01/02/2025. 2. Labs. * HPI: I ntrim History: Transition of care visit from hospital D ate of admission to hospital: 1 , D ate of receipt of hospital admission report: 1 ,?Date of discharge from hospital: 1 , D ate of receipt [...] stic Procedure: edward villegas , [facility], Dehydration 12/2018, uti 05/2019, [place] 01/2023, [facility]- Low oxygen, pneumonia left lung, fluid around heart. 03/11/24-03/13/24, [facility] 06/27-07/2014, [facility] 01/01-11/2024. * Family History: F ather: . [...] Orally Once a day , Taking Ipratropium [place] 0.02 % Solution 2.5 mL by nebulizer 4 times a day , Taking Albuterol Sulfate (2.5 MG/3ML) 0.083% Nebulization Solution 3 mL by nebulizer 4 times a day , Taking Proctosol HC 2.5 % Cream 1 taya applied topically 3 times a day , Taking Escitalopram Oxalate 10 MG Tablet 1 tab(s) orally once a day , Taking Nystatin 856768 UNIT/GM Ointment 1 application Externally three times [...] Orally every 12 hrs , Discontinued Nystatin 167972 UNIT/GM Ointment 1 application Externally Twice a [...] failure type L AB: BASIC METABOLIC PANEL (79477) (Ordered for 01/20/2025) L AB: MAGNESIUM (622) (Ordered for 01/20/2025) L AB: B TYPE NATRIURETIC PEPTIDE (BNP) (87917) (Ordered for 01/20/2025) Notes: Interesting strategy of [...] MD Date: Generated for Dominick harrell/Danica/eTransmitting on: 03:40 PM EDT History and Physical Notes * [...]
[2025-01-11] VITALS (22 sets, daily range): BP systolic 124–176; BP diastolic 52–68; PULSE 92–103; RESP 17–29; TEMP 36.6–36.7; O2SAT 76–99; BMI 20.2
--- OUTSIDE RECORDS SUMMARY | 2025-01-11 15:40 | XMS_ITS | Clinical Summary ---
Author Organization [facility] Address [address] [place] [address] [phone] Phone Care Team Providers Care State Wildlife Officer Name Role Phone Unavailable Primary Care Provider [...] Active fluticasone propionate (FLONASE) 50 mcg/actuation Nasl [place], Suspension 2 Sprays by Nasal route daily. [...] on file Sexual Orientation Not on file Last Filed Vital Signs Vital Sign Reading [...] Last Done Comments Wellness Exam Medicare 1953 Lipids 1960 Diabetic Eye Exam 1968 Hemoglobin A1c 1968 Hepatitis C Screening 1968 Kidney Health: eGFR 1968 Kidney Health: uACR 1968 DTaP/TDaP/Td (1 - Tdap) 1969 Breast Cancer Screening 1990 Cologuard 11/15/1995 Colon Cancer Screening 11/15/1995 Colonoscopy 11/15/1995 FIT 11/15/1995 Sigmoidoscopy 11/15/1995 Virtual Colonography 11/15/1995 RSV or 60+ (1 - Risk 60-74 years 1-dose series) 2010 Bone Density Screening 11/15/2015 Zoster (2 of 2) 03/17/2020 01/21/2020 COVID-19 Vaccine (3 - season) 2024 06/19/2020, 05/22/2020 Influenza Vaccine (#1) 2024 2, 01/21/2020, 11/27/2018, Additional history exists Pneumococcal Vaccine 50+ Completed 022, 10/24/2017, 10/20/2015 Hepatitis B Vaccine Aged Out No longe r eligible based on patient's age to complete this topic Meningococcal B Vaccine Aged Out No l onger eligible based on patient's age to complete this topic Insurance MEDICARE [place] PART A AND B MEDICAID [id number]
--- NOTE | 2025-01-11 15:41 | XR_ITS ---
PROCEDURE INFORMATION: Exam: XR Chest Exam date and time: 01/11/2025 3:50 PM Age: 74 years old Clinical indication: Shortness of breath TECHNIQUE: Imaging protocol: Radiologic exam of the chest. Views: 1 view. Total images: 1 COMPARISON: CR XR CHEST PORTABLE 01/01/2025 11:13 PM FINDINGS: Lungs: Atelectatic and/or early infiltrative changes noted within the left lower lobe. Granulomatous density noted within the right mid lung. Atelectatic changes right upper lobe. Pleural spaces: Large left pleural effusion. Heart/Mediastinum: Heart demonstrates mild diffuse enlargement. Vasculature: Moderate atherosclerotic disease. Bones/joints: There is evidence of prior median sternotomy. Soft tissues: The patient's chin overlies the lung apices. IMPRESSION: 1. Large left pleural effusion. 2. Atelectatic and/or early infiltrative changes noted within the left lower lobe. 3. Mild cardiomegaly.
--- OUTSIDE RECORDS SUMMARY | 2025-01-11 15:41 | XMS_ITS | Patient Health Record ---
Author Organization [facility] Address [address] [place] [address] Care Team Providers Care Inspector Tester Sorter Name Role Phone VictorinoRoe Primary Care Provider Cony Maria Unavailable [phone] Cony Gunderson Unavailable [phone] Migration, Provider Unavailable Unavailable Allergies Allergen (clinical drug ingredient) Drug/Non Drug Allergy documented on EMR Reaction Allergy Type Onset Date Status naproxen Naproxen Unknown Drug Allergy Active Results Component Value Reference Range Notes COMPREHENSIVE METABOLIC NENA Morgan ([id number]) Reviewed date:03/22/2024 12:10:25 PM Interpretation: Performing Lab:CB, [facility] [id number] [facility] Lv Campo Notes/Report: NON-FASTING; NON-FASTING; NON-FASTING; NON-FASTING; [...] Reviewed date:03/22/2024 12:10:25 PM Interpretation: Performing Lab:BRITTANY [employer] [employer], UrvewGaswPM[address] Lv aCmpo Notes/Report: NON-FASTING; NON-FASTING; NON-FASTING; NON-FASTING; NON-FAST MAGNESIUM 1.5 1.5-2.5 mg/dL CBC (INCLUDES DIFF/PLT) (639 9) Reviewed date:03/22/2024 12:10:25 PM Interpretation: Performing Lab:[facility]ITT[facility] [employer] [employer], UrvewFsgwFN[address] Lv Campo Notes/Report: NON-FASTING; NON-FASTING; NON-FASTING; NON-FASTING; [...] MPV 11.7 7.5-12.5 fL ABSOLUTE NEUTROPHILS 6705 2149-1747 cells/uL ABSOLUTE LYMPHOCYTES 2575 850-3900 cells/uL ABSOLUTE MONOCYTES 731 200-950 cells/uL ABSOLUTE EOSINOPHILS 247 15-500 cells/uL ABSOLUTE BASOPHILS 41 0-200 cells/uL NEUTROPHILS 65.1 LYMPHOCYTES 25.0 MONOCYTES 7.1 EOSINOPHILS 2.4 BASOPHILS 0.4 VITAMIN B12/FOLATE, SERUM PA MARY LOU (7065) Reviewed date:03/22/2024 12:10:25 PM Interpretation: Performing Lab:[facility] [employer] [employer], KabeExplorationPugkBG[address] Lv Campo Notes/Report: NON-FASTING; NON-FASTING; NON-FASTING; NON-FASTING; NON-FAST VITAMIN B12 169 393-1290 pg/mL Please Note: Although the reference range [...] Reviewed date:03/22/2024 12:10:24 PM Interpretation: Performing Lab:BRITTANY [employer] ine1355 [email or web address], [place] CxeaLY[address] Lv Campo Notes/Report: NON-FASTING; NON-FASTING; NON-FASTING; NON-FASTING; NON-FAST IRON, TOTAL 23 45-160 mcg/dL IRON BINDING CAPACITY 387 250-450 mcg/dL (nabeel c) % SATURATION 6 16-45 % (calc) FERRITIN 7 16-288 ng/mL MODIFIED BARIUM SWALLOW Reviewed date:08/15/2024 08:18:16 PM Interpretation: Performing Lab: Notes/Report: [address] [place] [address] Name: MARGARITA STONE Exam Date: 08/14/2024 : 1950 Age 73 years Gender: F Physician: ROE COTTO Facility: [facility] Facility HSV: Outpatient Exam: MODIFIED BARIUM SWALLOW EXAM: MODIFIED BARIUM SWALLOW INDICATION: dysphasia. Suspicion for aspiration. COMPARISON: None ATTENDING PECAN GATHERER: Ashok Dunn D.O. RESTAURANT MANAGING PARTNER: Jt Loaiza Jr., PA-C Procedure was performed by Jt Loaiza Jr., PA-C under the supervision of Dr. Dunn. FINDINGS/TECHNIQUE: Under fluoroscopic evaluation cineradiography/videoradiography recordings were performed in conjunction with the speech-language pathologist ([employer] SUPERVISOR). Various liquid, solid and/or semi-solid barium preparations [...] Thank you for referring MARGARITA STONE to [facility]. Legally authenticated by RON ESCOBAR DO 2024-08-14 11:14:22 Medications Medication SIG (Take, Route, Frequency, Duration) Notes Start Date End Date Status Memantine HCl 10 MG TAKE ONE (1) TABLET BY MOUTH TWICE DAILY; Duration: 150 Active Furosemide 40 MG TAKE ONE (1) TABLET BY MOUTH EVERY DAY; Duration: 90 days Active Nystatin 391378 UNIT/GM 1 application Ex ternally three times daily till clear; Duration: 14 days 07/04/2024 Active LORazepam 0.5 MG TAKE ONE (1) TABLET BY MOUTH EVERY DAY 30; Duration: 30 11/29/2024 Active Escitalopram Oxalate 10 MG 1 tab(s) oral ly once a day; Duration: 90 days Active Loratadine 10 MG 1 tablet Orally Once a day as needed for allergies; Duration: 30 days 11/22/2024 Active Proctosol HC 2.5 % 1 taya applied topica lly 3 times a day; Duration: 14 days 03/21/2024 Active Tab-A-[place] - TAKE ONE (1) TABLET BY MOUTH EVERY DAY; Duration: 90 Active Albuterol Sulfate (2.5 MG/3ML) 0.083% 3 mL by nebulizer 4 times a day; Duration: 30 days 11/16/2023 Active FeroSul 325 (65 Fe) MG TAKE ONE (1) TABL ET BY MOUTH DAILY ,TAKE WITHVITAMINC; Duration: 90 Active Ipratropium Furman 0.02 % 2.5 mL by neb ulizer 4 times a day; Duration: 30 days 11/16/2023 Active Isosorbide Mononitrate ER 30 MG TAKE 1 TABLET BY MOUTH EVERY DAY; Duration: 90 Active Kerendia 10 MG 1 tablet Orally Once a day Active Donepezil HCl 5 MG TAKE 1 TABLET BY CLARA TH EVERY DAY WITH BREAKFAST; Duration: 90 Active Metoprolol Succinate ER 100 MG 1 tablet Orally Once a day; Duration: 180 days Active amLODIPine Besylate 5 MG ONE (1) TAB(S) ORALLY ONCE A DAY 90 DAYS; Duration: 90 Active Gabapentin 100 MG TAKE ONE (1) [...] MOUTH EVERY DAY 90; Duration: 90 Active Pantoprazole Sodium 40 MG ONE (1) TAB(S) ORALLY ONCE A DAY 90 DAYS; Duration: 90 Active Vitamin D3 25 MCG (1000 UT) TAKE ONE (1) TABLET BY MOUTH EVERY DAY 90; Duration: 90 Active Immunizations Vaccine Route Administration [...] Dose IM Intramuscular 01/21/2020 Administered Lot # [id number] Fluzone High Dose IM Intramuscular 12/07/2021 Administered Fluzone High Dose IM Intramuscular 01/03/2023 Administered Fluzone High Dose IM Intramuscular 11/19/2024 Administered Influenza (Fluzone)--Medicar e only IM Intramuscular [...] W/U Status Risk Notes Problem Primary insomnia (4032576) Primary insomnia (F51.01) Active confirmed Problem Alzheimer's disease (18391075) Alzheimer's disease, unspecified (G30.9) Active confirmed Problem Panlobular emphysema (2094739) Panlobular emphysema (J43.1) Active confirmed Problem Chronic pulmonary edema (60886461) Chronic pulmonary edema (J81.1) Active confirmed Problem Nicotine dependence (83316062) Personal history of nicotine dependence (Z87.891) Active confirmed Problem Hypertension (53774206) HTN (hypertension) (I10) Active confirmed Problem Mixed anxiety and depressive disorder (288489209) Depression with anxiety (F41.8) Active confirmed Problem Anxiety (91130497) Anxiety (F41.9) Active confi rmed Problem Supraventricular tachycardia (7396700) SVT (supraventricular tachycardia) (I47.1) Active confirmed Problem Cerebrovascular disease (36698570) Cerebrovascular disease (I67.9) Active confirmed Problem Hyperlipidemia (52867031) Hyperlipidemia (E78.5) Active confirmed Problem Type II diabetes mellitus without complication (233939956) Diabetes mellitus type 2, noninsulin dependent (E11.9) Active confirmed Problem Ischemic stroke (570324042) Ischemic stroke (I63.50) Active confirmed Problem Gastroesophageal reflux disease (587474981) GERD without esophagitis (K21.9) Active confirmed Problem Acute exacerbation of chronic obstructive airways disease (141425472) COPD exacerbation (J44.1) Active confirmed Problem Memory loss (35272527) Memory loss (R41.3) Active confirmed Problem COPD - Chronic obstructive pulmonary disease (38365544) Chronic obstructive pulmonary disease, unspecified COPD type (J44.9) Active confirmed Problem Recurrent falls (082990554) Frequent falls (R29.6) Active confirmed Problem Abnormal mammogram (599457434) Abnormal mammogram (R92.8) Active confirmed Problem Ataxia (41290587) Ataxia (R27.0) Active confirm ed Problem Anemia (178191873) Anemia, unspecified type (D64.9) Active confirmed Problem Dysphagia (10408534) Dysphagia, unspecified type (R13.10) Active confirmed Problem Chronic anxiety (383823790) Chronic anxiety (F41.9) Active confirmed Problem Adult health examination (404680879) Healthcare maintenance (Z00.00) Active confirmed Problem Type II diabetes mellitus without complication (564614512) Type 2 diabetes mellitus without complication, without long-term current use of insulin (E11.9) Active confirmed Problem Menopausal syndrome (disorder) (451127700) Menopausal disorder (N95.9) Active confirmed Problem Primary hypertension (75205324) Primary hypertension (I10) Active confirmed Problem Localized, primary osteoarthritis of the pelvic region and thigh (501920136) Primary osteoarthritis of hips, 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) Active confirmed Problem Tobacco use (628881558) Tobacco use disorder (F17.200) Active confirmed Problem Leukocytosis (763531865) Leukocytosis, unspecified type (D72.829) Active confirmed Problem Arthritis of wrist (1780597469577) Arthritis of wrist, 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) Active confirmed Problem Osteoarthritis of right knee joint (disorder) (083177172494205) Localized osteoarthritis of right knee (M17.11) Active confirmed Problem Dysarthria (9357343) 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) Active confirmed Problem Heart failure (78581290) Acute on chronic congestive heart failure, unspecified heart failure type (I50.9) Active confirmed Problem Hyperlipidemia (96460775) Other hyperlipidemia (E78.49) Active confirmed Problem Major depression, single episode (49090169) Major depressive disorder, remission status unspecified, unspecified whether recurrent (F32.9) Active confirmed Problem History of supraventricular tachycardia (87553637425771898) History of supraventricular tachycardia (Z86.79) Active confirmed Problem 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 (857456136348945) Coronary artery disease involving tanana heart, unspecified vessel or lesion type, unspecified whether angina present (I25.10) Active confirmed Problem 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, unspecified severity, 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) Active confirmed Problem Chronic respiratory failure (17489694) Chronic hypoxic respiratory failure (J96.11) Active confirmed Problem Fcpyq-kz-hropedi hypoxemic respiratory failure (disorder) (29325393371015490) Acute on chronic hypoxic respiratory failure (J96.21) Active confirmed Vital Signs Heart Rate 74 /min 01/09/2025 Temperature 97.9 degrees Fahrenheit 01/09/2025 Oximetry 98 10/08/2024 pulse ox was wi th 5L Blood pressure diastolic 58 mm Hg 01/09/2025 Height 61.5 in 01/09/2025 Blood pressure systolic 118 mm Hg 01/09/2025 Weight 127 lbs 01/09/2025 BMI 23.61 kg/m2 01/09/2025 Encounters Encounter Location Date Provider Diagnosis [facility] [address] [place] [address] 06/29/2024 Provider Migration Anxiety F41.9 ; Primary osteoarthritis of hips, bilateral M16.0 and Hemorrhoids, unspecified hemorrhoid type K64.9 [facility] [address] [facility] [address] [place] [address] 02/21/2024 Cony Candace COPD exacerbation J4 4.1 and Nasal congestion R09.81 [facility] [address] [facility] [address] [place] [address] 03/21/2024 Cony Neptali Anemia, unspecified type D64.9 ; Acute on chronic hypoxic respiratory failure J96.21 ; Leukocytosis, unspecified type D72.829 ; Pericardial effusion I31.39 and Hemorrhoids, unspecified hemorrhoid type K64.9 [facility] [address] [address] 07/04/2024 Roe Cotto History of supraventricular tachycardia Z86.79 ; Aspiration pneumonia of left lower lobe due to regurgitated food J69.0 ; Acute on chronic hypoxic respiratory failure J96.21 ; Hospital discharge follow-up Z09 and Yeast infection B37.9 [facility] [address] [address] 08/08/2024 Roe Cotto Memory loss R41.3 ; Chronic obstructive pulmonary disease, unspecified COPD type J44.9 ; Healthcare maintenance Z00.00 ; SVT (supraventricular tachycardia) I47.10 and Encounter for immunization Z23 [facility] [address] [address] 10/08/2024 [facility] Hospital discharge follow-up Z09 ; Acute pneumonia J18.9 and Acute on chronic congestive heart failure, unspecified heart failure type I50.9 [facility] [address] [facility] [address] [place] [address] 10/16/2024 Roebijal Cotto Chronic hypoxic respiratory failure J96.11 ; Recurrent aspiration pneumonitis J69.0 and Hospital discharge follow-up Z09 [facility] [address] [address] 11/19/2024 Roe Cotto Chronic hypoxic respiratory failure J96.11 ; Dysphagia, unspecified type R13.10 ; Alzheimer's disease, unspecified G30.9 ; Coronary artery disease involving tanana heart, unspecified vessel or lesion type, unspecified whether angina present I25.10 ; Encounter for immunization Z23 and Immunization(s) administered Z23 [facility] [address] [address] 01/09/2025 Roebijal Cotto COPD exacerbation J4 4.1 ; Chronic hypoxic respiratory failure J96.11 ; Acute on chronic congestive heart failure, unspecified heart failure type I50.9 and Hospital discharge follow-up Z09 [facility] [address] [place] [address] 03/13/2024 Cony Gunderson [facility] [address] [place] [address] 03/22/2024 Roe Besson [facility] [address] [place] [address] 03/25/2024 Roe Besson [facility] [address] [place] [address] 05/14/2024 Roe Besson [facility] [address] [place] [address] 06/28/2024 Roe Besson [facility] [address] [place] [address] 07/04/2024 Roe Besson [facility] [address] [place] [address] 07/10/2024 Roe Besson Dysphagia, unspecifi ed type R13.10 [facility] [address] [place] [address] 09/09/2024 Roe Besson [facility] [address] [place] [address] 09/30/2024 Roe Besson [facility] [address] [place] [address] 10/08/2024 Roe Besson [facility] [address] [place] [address] 10/09/2024 Roe Besson Oropharyngeal aspiration, subsequent encounter T17.208D [facility] [address] [place] [address] 11/05/2024 Reo Besson Oropharyngeal aspiration, subsequent encounter T17.208D [facility] [address] [place] [address] 11/22/2024 Cony Eagleence [facility] [address] [place] [address] 01/02/2025 Roe Besson Assessments Encounter Date Diagnosis (ICD Code) Assessment Notes Treatment Notes Treatment Clinical Notes Section Notes 02/21/2024 Nasal congestion (ICD-10 - R09.81) 02/21/2024 [...] and metoprolol. HR normal in office today. 07/04/2024 Aspiration pneumonia of left lower lobe due to regurgitated food (ICD-10 - J69.0) Due to asymptomatic pneumonia with abrupt onset following choking on food with continued dysphagi; concerned for aspiration pneumonia. Will send for a modified barium swallow with speech therapy ensure no aspirations of food and for futher instructions to prevent recurrent pneumonias. 07/10/2024 Dysphagia, unspecified type (ICD-10 - R13.10) 08/08/2024 Memory loss (ICD-10 - R41.3) -memory [...] intiiate daily controller inhaler, RTC inc2 month 10/08/2024 Hospital discharge follow-up (ICD-10 - Z09) I personally have reviewed hospitalization records including specialist notes, imaging reports, labs, and discharge summaries. I personally have reviewed patient's discharge medication list and have reconciled patient's medications as above. 10/08/2024 Acute pneumonia (ICD-10 - J18.9) Finished course of antibiotics. With increased oxygen requirement, lungs junky on exam, and daughters concern she is getting worsening pneumonia again, discussed it is best for her to get lung imaging and labs in the ED today. Reviewed swallow study and discussed with daughter patient should be on thickened liquid diet, but she and her sister would like to have ongoing goals of care discussions pending ED findings today. 10/09/2024 Oropharyngeal aspiration, subsequent encounter (ICD-10 - T17.208D) 10/16/2024 Chronic hypoxic respiratory failure (ICD-10 - J96.11) Patient is significantly ill. Her COPD is end-stage. Exacerbated by respiratory failure and recurrent aspiration. I think she is appropriate for hospice care. Her daughter agrees. They have been discussing this at home. Will make arrangements for hospice consultation. Follow-up after admission to hospice. They are going to see jaw skinner today. Will follow this visit 10/16/2024 Recurrent aspiration pneumonitis (ICD-10 - J69.0) I think speech is appropriate to help with comfort issues and swallowing 11/05/2024 Oropharyngeal aspiration, subsequent encounter (ICD-10 - T17.208D) 11/19/2024 Dysphagia, unspecified type (ICD-10 - R13.10) Aspiration precautions discussed, they will try to do a back brace to help with her kyphosis while she is eating. 11/19/2024 Chronic hypoxic respiratory failure (ICD-10 - [...] months. We will administer flu shot today 01/09/2025 COPD exacerbation (ICD-10 - J44.1) Overall [...] weeks to follow-up labs at that point 11/19/2024 Alzheimer's disease, unspecified (ICD-10 - G30.9) No changes in plan, no behavioral problems. Memory remains significantly impaired 10/16/2024 Hospital discharge follow-up (ICD-10 - Z09) I reviewed ER notes available from emergency department. Reviewed labs, reviewed discharge plan, personally reconciled medication. 10/08/2024 Acute on chronic congestive heart failure, unspecified heart failure type (ICD-10 - I50.9) Getting imaging above to check for effusion vs pneumonia. 08/08/2024 Healthcare maintenance (ICD-10 - Z00.00) -PCV [...] baseline O2 level. Continue spirometry at home. 03/21/2024 Leukocytosis, unspecified type (ICD-10 - D72.829) Likely reactive and due to pna with acute illness and fluid overload while inpatient. I personally will review labs once final. 03/21/2024 Pericardial effusion (ICD-10 - I31.39) Keep Cardiology follow-up. Currently has a monitor on. I personally will review all labs once final. 07/04/2024 Hospital discharge follow-up (ICD-10 - Z09) No medication changes made by cardiology team. Personally reviewed H&P and discharge summary as available from hospital discharge documentation. Reviewed pertinent labs and test done in the hospital. Personally reconciled medication. 08/08/2024 SVT (supraventricular tachycardia) (ICD-10 - I47.10) -No chest pain, no palpitations 01/09/2025 Hospital discharge follow-up (ICD-10 - Z09) Personally reviewed H&P and discharge summary as available from hospital discharge documentation. Reviewed pertinent labs and test done in the hospital. Personally reconciled medication. 11/19/2024 Coronary artery disease involving tanana heart, unspecified vessel or lesion type, unspecified whether angina present (ICD-10 - I25.10) Cardiology has released patient for a year. I will do med refills as needed 11/19/2024 Encounter for immunization (ICD-10 - Z23) 07/04/2024 Yeast infection (ICD-10 - B37.9) Yeast infection following high dose antibiotics for PNA. Will prescribe Nystain cream to be applied topically to affected area. 08/08/2024 Encounter for immunization (ICD-10 - Z23) -PCV 21 today 06/29/2024 Hemorrhoids, unspecified hemorrhoid type (ICD-10 - K64.9) 03/21/2024 Hemorrhoids, unspecified hemorrhoid type (ICD-10 - K64.9) At daughter's request, will refill cream. She denies any active bleeding. 11/19/2024 Immunization(s) administered (ICD-10 - Z23) 03/21/2024 Other Patient discuss ed with Attending Dr. Cotto who agrees with the plan of care above. Plan Of Treatment Pending Test Test Name Order Date X-Lipid Profile 03/03/2006 Ultrasound : Breast, Left 10/24/2016 N-CMP 03/03/2006 Speech Therapy Eval and Treatment 2024 Mammogram : Additional Views 10/24/2016 H-LIPID PANEL 04/16/2014 C-CBC 09/17/2013 C-CMP 09/17/2013 C-LIPID PANEL 09/17/2013 C-URINE CULTURE 12/11/2018 C-HGBA1C 09/17/2013 Comp. Metabolic Panel (14) 03/08/2022 Lipid Panel 03/08/2022 Hemoglobin A1c 03/08/2022 Pulmonary Function Test- Complete 2020 M-COVID WITH RESPIRATORY PANEL 0 Next Appt Details Provider Name:Roe Cotto, 01/23/2025 11:45:00 AM, 2017 [facility], [place], [address], Insurance Providers Payer Name Payer Address Payer Phone Subscriber Number Group Number Insured Name Patient Relationship to Insured Coverage Start Date Coverage End [place] [address] [place] [address] [id number] Margarita Stone Self - patient is the insured MEDICAID EDS [address] [place] [address] [id number] Margarita tSone Self - patient is the insured [employer] [address] [place] [address] [address] [place] [address] ACL Margarita Stone Self - patient is the insured Medications [...] cataract surgery 10/2023 Hospitalization History Reason Date(Month/Year) [facility] 01/01-11/2024 [facility] 06/27-07/2014 [facility]- Low oxygen, pneumonia left lung, fl uid around heart. 03/11/24-03/13/24 [place] 01/2023 uti 05/2019 [facility]I, Dehydration 12/2018 above
--- NOTE | 2025-01-11 15:46 | [facility].EDCP ---
Discharge Plan Disposition Patient Disposition: Admitted Clinical Impressions Clinical Impression: Pneumonia, Sepsis, Acute on chronic hypoxic respiratory failure, JUSTINO (acute kidney injury) Discharge ED Provider: Italo Meyers HPI General Chief Complaint: Shortness of Breath/Dyspnea Stated Complaint: low oxygen , Time Seen by Provider: 01/11/25 15:33 Mode of Arrival: Wheelchair Source of Information: Relative Description of Symptoms (Recalled from ER Triage Doc. by RN): Daughter reports the patient has had increased SOB and cough that started today with low o2 sats. States she normally wears 2.5L at home but had to increase it to 5L with her o2 only increasing to 85%. History of Present Illness HPI narrative: Margarita Stone is a 74-year-old female with a history of COPD on 2 L nasal cannula at baseline, CHF, CVA, coronary artery disease, hypertension, diabetes, hyperlipidemia, left-sided pleural effusion, kyphosis, who presents to the emergency department with daughter for concern for shortness of breath. Per patient and family, she has had increased work of breathing today with a nonproductive cough. No fevers. Patient denies any chest pain. Patient told her daughter earlier today that she feels like she could not catch her breath. She denies any significant shortness of breath now. Her daughter has increased her oxygen from 2 L up to 3 on her concentrator at home, per head track coach recommendations, however her oxygen was in the mid 70s initially and only improved slightly after that. She was seen in the emergency department and admitted overnight for observation at the beginning of the month for hypoxia. She had a follow-up appointment with PCP, head track coach and jalousies installer on and head track coach feels that this is most likely related to fluid and not COPD and increased her Lasix. She denies any leg swelling. Related Data Home Medications ?Medication ?Instructions ?Recorded ?Confirmed atorvastatin 80 mg tablet 80 mg PO HS 04/05/17 01/09/25 aspirin 325 mg tablet 325 mg PO DAILY 09/14/17 01/09/25 isosorbide mononitrate 30 mg 30 mg PO DAILY 03/26/18 01/09/25 tablet,extended release 24 hr amlodipine 5 mg tablet 5 mg PO DAILY 05/20/19 01/09/25 cholecalciferol (vitamin D3) 25 25 mcg PO HS 03/13/20 01/09/25 mcg (1,000 unit) capsule memantine 10 mg tablet 10 mg PO BID 09/18/20 01/09/25 donepezil 5 mg tablet 5 mg PO DAILY 05/21/21 01/09/25 multivitamin (Daily Multi-Vitamin 1 tab PO DAILY 12/03/21 01/09/25 tablet) escitalopram oxalate 10 mg tablet 10 mg PO DAILY 06/17/22 01/09/25 lisinopril 40 mg tablet 40 mg PO BID 01/21/23 01/09/25 metformin 1,000 mg tablet 1,000 mg PO BID 01/22/23 01/09/25 pantoprazole 40 mg tablet,delayed 40 mg PO DAILY 02/21/24 01/09/25 release gabapentin 100 mg capsule 100 mg PO BID 03/11/24 01/09/25 lorazepam 0.5 mg tablet 0.5 mg PO HS 03/11/24 01/09/25 ferrous sulfate 325 mg (65 mg 325 mg PO DAILY 06/27/24 01/09/25 iron) tablet (FeroSul) magnesium oxide 400 mg (241.3 mg 400 mg PO BID 06/27/24 01/09/25 magnesium) tablet metoprolol succinate 100 mg 100 mg PO DAILY 01/02/25 01/09/25 tablet,extended release 24 hr Previous Rx's ?Medication ?Instructions ?Recorded ipratropium 0.5 mg-albuterol 3 mg 3 ml inhalation QID 90 days #270 mL 10/16/24 (2.5 mg base)/3 mL nebulization soln cefdinir 300 mg capsule 300 mg PO BID #8 caps 01/02/25 fluticasone fur. 100 mcg-umeclid 1 inh inhalation DAILY #60 ea 01/02/25 62.5 mcg-vilant 25 mcg inhalat.powder (Trelegy Ellipta) furosemide 20 mg tablet 40 mg (2 x 20 mg) PO DAILY 30 days 01/02/25 #0 tabs potassium chloride 20 mEq 40 meq (2 x 20 mEq) PO DAILY #14 01/02/25 tablet,extended release (K-Tab) tabs prednisone 20 mg tablet 40 mg (2 x 20 mg) PO DAILY 4 days 01/02/25 #8 tabs finerenone 10 mg tablet (Kerendia) 10 mg PO DAILY #30 tabs 01/09/25 Allergies Allergy/AdvReac Type Severity Reaction Status Date / Time Iodinated Contrast Media Allergy Mild Unknown Verified 01/09/25 10:58 allergy reaction naproxen Allergy Mild Unknown Verified 01/09/25 10:58 allergy reaction PFSH PFS Disclaimer: The information contained in this section may have been updated after the patient was seen, as this information can be updated by other users. Medical History Acute hyperkalemia Hypoxia Pleural effusion, left Multifocal pneumonia Severe sepsis SVT (supraventricular tachycardia) Acute and chronic respiratory failure with hypoxia Kyphosis Chronic respiratory failure with hypoxia Pulmonary emphysema History of smoking 30 or more pack years Pericardial effusion Diabetes mellitus Hyperlipidemia Hypertensive heart disease Hypertension CAD (coronary artery disease) Cataract SVT (supraventricular tachycardia) COPD exacerbation COPD (chronic obstructive pulmonary disease) Respiratory failure with hypoxia History of CVA (cerebrovascular accident) Vomiting Weight loss Lumbar stenosis Thoracic compression fracture Cerebral atrophy Sepsis UTI (urinary tract infection) CAP (community acquired pneumonia) Carotid artery stenosis Tobacco dependence syndrome Coronary arteriosclerosis Surgical History History of coronary artery bypass graft S/P CABG x 3 Family History Diabetes Family history of hypertension Family history of hyperlipidemia Parkinsons Social History Smoking Status: Former smoker tobacco type: cigarettes packs per day: 1 alcohol intake: never counseling provided: none substance use type: denies use current occupational status: retired Travel in the last 8 weeks?: Inside the [place] household members: family housing: house caffeine: Yes Have you lived/traveled outside [place] in past 30 days?: No Contact w/someone who lives/traveled outside [place] past 30 days?: No Exposure to someone with infectious disease in past 14 days?: No Do you have a fever (greater than 100.4 F or 38 C)?: No Have you tested positive for COVID-19?: No Exposed to someone with COVID-19 in past 14 days?: No Do you have a sore throat?: No Do you have a cough?: No Do you have any weakness?: No Do you have any diarrhea?: No Are you experiencing any unusual bleeding?: No Do you have any muscle aches/pain?: No Do you have any abdominal pain?: No Are you experiencing loss of taste or smell?: No Other Medical History Have you received the Flu Vaccine for this season: No Have you received the Pneumonia Vaccine: No ROS Obtained: Yes Systems reviewed as appropriate & no additional complaints except as documented Physical Exam General General appearance: alert Comment: Increased work of breathing, alert Head Head exam: atraumatic Eye Eye exam: Present normal appearance ENT ENT exam: Present normal external ear exam Neck Neck exam: Present full ROM Chest Chest inspection: Present symmetric chest wall rise Respiratory Respiratory exam: Present respiratory distress (Mild to moderate respiratory distress) and accessory muscle use; Absent normal lung sounds bilaterally (Diminished breath sounds on the left) or wheezes Cardiovascular Cardiovascular exam: Present regular rate (Borderline tachycardic) and normal rhythm Abdominal Exam Abdominal exam: Present soft; Absent tenderness or guarding Extremities Exam Extremities exam: Present normal inspection; Absent edema Back Exam Back exam: Present normal inspection Neurological Exam Neurological exam: Present alert and oriented X3 Psychiatric Psychiatric exam: Present normal affect Skin Skin exam: Present warm and dry HEART Score HEART Score HEART Score assessment performed?: No Critical Care Critical Care Time Critical Care Time: Yes Attestation: On 01/11/25, the high probability of a clinically significant, sudden or life threatening deterioration of the following system(s) required my full and direct attention, intervention and personal management. The time I documented below is in addition to time spent performing reported procedures but includes the following listed in this critical care notation. Total Time Total Critical Care Time: 35 Medical Decision Making Jose Inquiry Pt receiving controlled substance: No Vital Signs Vital Signs: 01/11/25 15:36 01/11/25 15:37 01/11/25 15:54 Temperature 98.0 F Temperature Source Oral Pulse Rate 94 H 92 H Pulse Rate [Radial] 96 H Respiratory Rate 22 Blood Pressure Blood Pressure [Right Arm] 176/62 H Blood Pressure Mean Blood Pressure Mean [Right Arm] 100 Blood Pressure Source [Right Arm] Automatic Cuff Blood Pressure Position [Right Arm] Sitting 02 Sat by Pulse Oximetry 87 L 76 L 89 L Oxygen Delivery Method Nasal Cannula Room Air Nasal Cannula Oxygen Flow Rate (LPM) 5 5 01/11/25 16:00 01/11/25 16:30 01/11/25 17:00 Temperature Temperature Source Pulse Rate 93 H 94 H 100 H Pulse Rate [Radial] Respiratory Rate Blood Pressure 160/68 H 148/66 H 157/60 H Blood Pressure [Right Arm] Blood Pressure Mean 106 Blood Pressure Mean [Right Arm] Blood Pressure Source [Right Arm] Blood Pressure Position [Right Arm] 02 Sat by Pulse Oximetry 94 L 94 L 90 L Oxygen Delivery Method Nasal Cannula Nasal Cannula Oxygen Flow Rate (LPM) 5 5 01/11/25 17:30 Temperature Temperature Source Pulse Rate 99 H Pulse Rate [Radial] Respiratory Rate Blood Pressure 144/54 H Blood Pressure [Right Arm] Blood Pressure Mean Blood Pressure Mean [Right Arm] Blood Pressure Source [Right Arm] Blood Pressure Position [Right Arm] 02 Sat by Pulse Oximetry 89 L Oxygen Delivery Method Nasal Cannula Oxygen Flow Rate (LPM) 5 Lab Data Labs: Lab Results 01/11/25 15:50: WBC 20.7 H*, RBC 3.79 L, Hgb 11.1 L, Hct 34.8 L, MCV 91.8, MCH 29.3, MCHC 31.9, RDW 15.9, Plt Count 305, MPV 10.1, Neut % (Auto) 80.7 H, Lymph % (Auto) 9.4 L, [place] % (Auto) 8.6, Eos % (Auto) 0.2, Baso % (Auto) 0.2, Neut # (Auto) 16.7 H, Lymph # (Auto) 2.0, [place] # (Auto) 1.8 H, Eos # (Auto) 0.1, Baso # (Auto) 0.1, Total Counted 100, Neutrophils % (Manual) 83 H, Lymphocytes % (Manual) 10, Monocytes % (Manual) 7, Platelet Estimate Normal, RBC Morphology Normal, Sodium 138, Potassium 4.0, Chloride 97 L, Carbon Dioxide 28, Anion Gap 17.0 H, BUN 25 H, Creatinine 1.10 H, Estimated Creat Clear 39, Estimated GFR 49 L, Est GFR ( Amer) 59, Glucose 272 H, Calcium 9.0, Total Bilirubin 0.5, AST 27, ALT 30, Alkaline Phosphatase 138 H, Troponin I < 0.01, NT-Pro-B Natriuret Pep 5290 H, Total Protein 5.8 L, Albumin 3.4 L, Globulin 2.4, Albumin/Globulin Ratio 1.4 01/11/25 15:53: VBG pH 7.37, VBG pCO2 50.0, VBG pO2 43.1 H, VBG HCO3 28.0, VBG Total CO2 29.5 H, VBG O2 Saturation 76.0 H, VBG Base Excess 2.6 H, VBG Lactic Acid 6.2 H 01/11/25 15:50 01/11/25 15:50 Response Orders (Tests/Meds): ED MEDICATIONS Generic Name Dose Route Start Last Admin Trade Name Freq PRN Reason Stop Dose Admin Acetaminophen 650 mg 01/11/25 16:47 Acetaminophen 325mg Tab PO 02/10/25 16:46 Q4HP PRN Fever or Mild Pain (1-3) Hydrocodone Bitart/Acetaminophen 1 tab 01/11/25 16:47 Hydrocodone/Apap 5/325 Mg Tablet PO 02/10/25 16:46 Q4HP PRN Mild to Moderate Pain (1-6) Albuterol/Ipratropium 3 ml 01/11/25 18:00 Ipratropium/Albuterol 3 Ml Neb IH 02/10/25 17:59 Q6RT DEXTER Bumetanide 1 mg 01/11/25 16:47 Bumetanide 1mg/4ml Vial IV 01/11/25 16:48 ONCE ONE Enoxaparin Sodium 40 mg 01/12/25 09:00 Enoxaparin 40mg/0.4ml Syringe SUBCUT 02/11/25 08:59 DAILY DEXTER Ceftriaxone Sodium 2 gm/ 100 mls @ 200 mls/hr 01/11/25 16:15 01/11/25 17:17 Sodium Chloride IV 01/21/25 16:14 Infused Q24H DEXTER Infusion Azithromycin 500 mg/ Sodium 250 mls @ 250 mls/hr 01/11/25 16:15 01/11/25 17:30 Chloride IV 01/21/25 16:14 250 mls/hr Q24H DEXTER Administration Nicotine 21 mg 01/11/25 16:47 Nicotine 21mg/24hr Patch TD 02/10/25 16:46 DAILYP PRN Nicotine Cravings Ondansetron HCl 4 mg 01/11/25 16:47 Ondansetron 4mg/2ml Vial IV 02/10/25 16:46 Q8HP PRN Nausea Discontinued Medications Generic Name Dose Route Start Last Admin Trade Name Freq PRN Reason Stop Dose Admin Albuterol/Ipratropium 9 ml 10/18/25 15:41 01/11/25 16:02 Ipratropium/Albuterol 3 Ml Neb IH 01/11/25 15:42 9 ml ONCE ONE Administration Furosemide 40 mg 01/11/25 16:17 01/11/25 16:35 Furosemide 40mg/4ml Vial IV 01/11/25 16:18 40 mg ONCE ONE Administration Magnesium Sulfate 2 gm in 50 mls @ 50 mls/hr 01/11/25 15:41 01/11/25 17:17 Magnesium Sulfate 2gm/50ml Premix IV 01/11/25 16:40 Infused ONCE ONE Infusion Methylprednisolone Sodium Succinate 80 mg 01/11/25 15:41 01/11/25 16:02 Methylprednisolone Sod Succ 125mg Vial IV 01/11/25 15:42 80 mg ONCE ONE Administration ORDERS Category Date Time Status CT chest wo con Stat Cat Scan 01/11/25 16:44 Taken CXR --portable [XR chest portable] Stat Exams 01/11/25 15:41 Completed BNP [NT Pro Brain Natriuretic Pep.] Stat Lab 01/11/25 15:50 Completed CBC w/Auto Diff [Complete Blood Count Auto Diff] Stat Lab 01/11/25 15:50 Completed CMP [Comprehensive Metabolic Panel] Stat Lab 01/11/25 15:50 Completed Complete Blood Count Auto Diff AMLAB Lab 01/12/25 06:00 Ordered Comprehensive Metabolic Panel AMLAB Lab 01/12/25 06:00 Ordered Magnesium AMLAB Lab 01/12/25 06:00 Ordered Troponin I Q3H Lab 01/11/25 18:45 Ordered Troponin I Q3H Lab 01/11/25 21:45 Ordered Troponin I Stat Lab 01/11/25 15:50 Completed Blood Culture Stat Micro 01/11/25 16:30 Received VBG [Venous Blood Gas] Stat RT 01/11/25 15:53 Completed EKG Request [ECG Request] Stat Y 01/11/25 15:44 Ordered ECG Data Tracing #1: Attestation: I reviewed this ECG and interpreted as documented below: ECG Narrative: Normal sinus rhythm. Mild ST elevation in lead III without reciprocal changes. No STEMI. QTc of 370 MDM Narrative Medical Decision Narrative: Margarita Stone is a 74-year-old female with a history of COPD on 2 L nasal cannula at baseline, CHF, CVA, coronary artery disease, hypertension, diabetes, hyperlipidemia, left-sided pleural effusion, kyphosis, who presents to the emergency department with daughter for concern for shortness of breath. Per patient and family, she has had increased work of breathing today with a nonproductive cough. No fevers. Patient denies any chest pain. Patient told her daughter earlier today that she feels like she could not catch her breath. She denies any significant shortness of breath now. Her daughter has increased her oxygen from 2 L up to 3 on her concentrator at home, per head track coach recommendations, however her oxygen was in the mid 70s initially and only improved slightly after that. She was seen in the emergency department and admitted overnight for observation at the beginning of the month for hypoxia. She had a follow-up appointment with PCP, head track coach and jalousies installer on and head track coach feels that this is most likely related to fluid and not COPD and increased her Lasix. She denies any leg swelling. On arrival, patient is oxygen at the time of my evaluation was 76 on home 2 L nasal cannula. She was bumped up to 5 L nasal cannula and increased to 89% SpO2. Physical exam, stated above, revealed an ill appearing female in mild to moderate respiratory distress. She has increased work of breathing. She is answering questions appropriately and is alert and oriented. She does not have any appreciable peripheral edema. Abdomen soft, nontender nondistended. Cardiopulmonary exam shows diminished breath sounds on the left but no wheezing. Differential diagnosis includes, but is not limited to: Pleural effusion, COPD exacerbation, ACS, pneumonia, sepsis, CHF exacerbation, among others. The most morbid conditions were considered and workup was based on these. Initial workup included: Chest x-ray, VBG with lactate, EKG, troponin, BNP, CBC with differential, CMP. Patient was treated for possible COPD exacerbation with continuous albuterol nebulizer, 80 mg of methylprednisolone, 2 g of IV magnesium sulfate. EKG without evidence of ischemia. See interpretation above Patient's initial workup showed a leukocytosis of 20.7 with neutrophilia, blood cultures were obtained at this time. Patient's chest x-ray was also interpreted by me personally prior to official radiology read. There is a significant left sided lower lobe pleural effusion versus consolidation. VBG demonstrated normal pH of 7.37, pCO2 borderline elevated at 50 but lactic acid elevated at 6.2. Given her hypoxia in the setting of leukocytosis, there is concern for sepsis and blood cultures are obtained and patient was started on 2 g of IV Rocephin as well as 500 mg of IV azithromycin for pneumonia. I considered giving patient sepsis bolus fluids, however in the setting of her pleural effusion and heart failure, I do not want to volume overload the patient further and fluids were not given. Patient's electrolytes are grossly unremarkable nonactionable. Anion gap is elevated at 17, likely secondary to her lactic being elevated. She has a mild JUSTINO with creatinine of 1.10, BUN is mildly elevated at 25. Initial troponin less than 0.01. NT proBNP is elevated at 5290, however this is exactly the same as it was on the eighth of this month. On continuous DuoNeb treatment, patient's oxygen saturation is 92% at this time. I discussed admission with family and patient given concern for pneumonia/sepsis as well as large pleural effusion. They are in agreement with this plan. I discussed patient's case with Dr. Dao with the hospital medicine service who agreed to admit the patient. He did request obtaining a CT scan of the chest prior to admission to evaluate for possible empyema and degree of pleural effusion as this was may need a thoracentesis in the future. Patient was then admitted to the stepdown unit for further management.
[2025-01-11 15:59] LABS: Hematocrit 34.8 % (37.0-47.0); Hemoglobin 11.1 g/dL (12.2-16.2); Immature Granulocytes % 0.9 %; Mean Corpuscular HGB Conc 31.9 g/dL (31.8-35.4); Mean Corpuscular Hemoglobin 29.3 pg (27.0-31.2); Mean Corpuscular Volume 91.8 fl (81-99); Nucleated Red Blood Cells % 0 %; Platelet Count 305 K/mm3 (142-424); Red Blood Count 3.79 M/mm3 (4.20-5.40); Red Cell Distribution Width-SD 53.4 fL; White Blood Count 20.7 K/mm3 (4.8-10.8)
[2025-01-11 16:00] LABS: VBG HCO3 28.0 mmol/L (23-30); VBG PH 7.37 mmol/L (7.31-7.41); VBG PO2 43.1 mmol/L (28-40)
[2025-01-11 16:01] LABS: VBG PCO2 50.0 mmol/L (35-51)
[2025-01-11 16:02] LABS: Lactate Venous 6.2 mmol/L (0.4-2.0)
[2025-01-11] MEDS: METHYLPREDNISOLONE SOD SUCC 125MG VIAL 80 MG IV (16:02)
[2025-01-11] MEDS: MAGNESIUM SULFATE IN WATER 2 GM/50 ML PIGGYBACK IV (16:02)
[2025-01-11] MEDS: IPRATROPIUM/ALBUTEROL 3 ML NEB 9 ML IH (16:02)
[2025-01-11 16:09] LABS: Alanine Aminotransferase 30 U/L (12-78); Albumin Level 3.4 g/dl (3.5-5.0); Albumin/Globulin Ratio 1.4 (1.1-1.8); Alkaline Phosphatase 138 U/L (38-126); Anion Gap 17.0 mEq/L (5-15); Aspartate Amino Transferase 27 U/L (14-36); Bilirubin,Total 0.5 mg/dl (0.2-1.3); Blood Urea Nitrogen 25 mg/dl (7-17); Calcium 9.0 mg/dl (8.4-10.2); Carbon Dioxide 28 mmol/L (22.0-30.0); Chloride 97 mmol/L (98-107); Creatinine Clearance Estimated 39 mL/min (50-200); Creatinine,Serum 1.10 mg/dl (0.52-1.04); Estimated Glomerular Filt Rate 49 ml/min (>60); GFR (African American) 59 ML/MIN (>60); Globulin 2.4 g/dL (1.3-3.2); Glucose 272 mg/dl (74-100); Potassium 4.0 mmoL/L (3.5-5.1); Sodium 138 mmol/L (136-145); Total Protein,Serum 5.8 g/dl (6.3-8.2)
[2025-01-11 16:21] LABS: NT Pro Brain Natriuretic Pep. 5290 pg/mL (0-125)
[2025-01-11 16:28] LABS: Troponin I < 0.01 ng/ml (0.00-0.034)
[2025-01-11] MEDS: FUROSEMIDE 40MG/4ML VIAL 40 MG IV (16:35)
[2025-01-11 16:38] LABS: RBC Morphology Normal; Total Cells Counted 100
--- NOTE | 2025-01-11 16:44 | CT_ITS ---
PROCEDURE INFORMATION: Exam: CT Chest Without Contrast; Diagnostic Exam date and time: 01/11/2025 5:22 PM Age: 74 years old Clinical indication: Other: Hypoxia, pneumonia vs effusion TECHNIQUE: Imaging protocol: Diagnostic computed tomography of the chest without contrast. Radiation optimization: All CT scans at this facility use at least one of these dose optimization techniques: automated exposure control; mA and/or kV adjustment per patient size (includes targeted exams where dose is matched to clinical indication); or iterative reconstruction. COMPARISON: CT CHEST WO [facility] 10/08/2024 7:13 PM FINDINGS: Thyroid: The thyroid gland is normal. Lungs: Extensive amount of debris in the distal trachea and throughout the left mainstem bronchus, left upper lobe segmental bronchi, and left lower lobe segmental and subsegmental bronchi. Large consolidation throughout the left lower lobe with patchy consolidations in the left suprahilar space and left perihilar space, as well as in the basal segments of the lingula. Very subtle ground-glass and patchy consolidations are also seen throughout the right lung. Right lung calcified granuloma is benign. Bilateral bronchial wall thickening. Emphysematous changes are suggested throughout both lungs, however most prominent in the bilateral upper lobes. Bilateral apical capping/scarring. Pleural spaces: There are no pleural effusions present. There is no evidence of pneumothorax. Heart: Moderate cardiomegaly. Calcifications of the aortic valve annulus. No pericardial thickening or effusion. Coronary arteries: There is severe atherosclerotic calcification of the coronary arteries. Lymph nodes: Enlarged mediastinal lymph nodes, measuring up to 9 mm. Single prominent left axillary lymph node measures up to 12 mm. Vasculature: Severe diffuse calcific atherosclerosis of the aorta. No aortic aneurysm. The pulmonary arteries are normal in course and caliber. Diaphragm: Small hiatal hernia. Kidneys: Bilateral nonobstructive nephrolithiasis. Bones/joints: Sternotomy wires and mediastinal surgical clips are present, consistent with previous coronary arterial bypass grafting. Chronic superior endplate burst fracture of T12 with 6 mm retropulsion of fracture fragments, causing mild central canal stenosis. No new fracture or dislocation. Moderate degenerative changes of the spine are present. Soft tissues: No acute soft tissue findings. Other findings: No acute findings in the included upper abdominal organs. IMPRESSION: 1. Lung findings are most consistent with severe left lung aspiration related pneumonia, with near complete pneumonic infiltration of the left lower lobe. Additionally, there is very mild patchy areas of pneumonia in the right lung. Note that there is near complete bronchial obstruction in the left mainstem and upper/lower lobe segmental and subsegmental bronchi due to a significant amount of debris and/or aspirated material. 2. Mediastinal and left axillary adenopathy, most probably reactive. 3. There is no pleural effusion at this time. COMMENTS: The presence of pulmonary emphysema on CT is an independent risk factor for lung cancer. In the absence of a history or active diagnosis of lung cancer, it is recommended that this patient with emphysema be evaluated for enrollment in a low dose CT lung cancer screening program.
--- NOTE | 2025-01-11 16:50 | EXP.HP ---
History of Present Illness *Admission Date: 01/11/25 *Reason for visit:: dyspnea *History of present illness: Margarita Stone is a 74-year-old female with a history of COPD on 2 L nasal cannula at baseline, CHF, CVA, coronary artery disease, hypertension, diabetes, hyperlipidemia, left-sided pleural effusion, kyphosis, who presents to the emergency department with her daughter for concern for worsening shortness of breath. She was just admitted less than 2 weeks ago for similar presentation. And completed her antibiotics at home. States that she has been getting more short of breath over the past day. Had increased her diuretic in the past 24 to 48 hours with no improvement. Patient reports increased cough and work of breathing but cough is nonproductive. No fever. No nausea or vomiting. Denies any swelling or edema in her legs. Necessitating 5 L of oxygen on arrival. Workup with white count of 20,000. Chest imaging showing left lower lobe pneumonia. BNP elevated 5000. Medicine consulted to admit for pneumonia and CHF exacerbation. [facility] Disclaimer: The information contained in this section may have been updated after the patient was seen, as this information can be updated by other users. Medical History Acute hyperkalemia Hypoxia Pleural effusion, left Multifocal pneumonia Severe sepsis SVT (supraventricular tachycardia) Acute and chronic respiratory failure with hypoxia Kyphosis Chronic respiratory failure with hypoxia Pulmonary emphysema History of smoking 30 or more pack years Pericardial effusion Diabetes mellitus Hyperlipidemia Hypertensive heart disease Hypertension CAD (coronary artery disease) Cataract SVT (supraventricular tachycardia) COPD exacerbation COPD (chronic obstructive pulmonary disease) Respiratory failure with hypoxia History of CVA (cerebrovascular accident) Vomiting Weight loss Lumbar stenosis Thoracic compression fracture Cerebral atrophy Sepsis UTI (urinary tract infection) CAP (community acquired pneumonia) Carotid artery stenosis Tobacco dependence syndrome Coronary arteriosclerosis Surgical History History of coronary artery bypass graft S/P CABG x 3 Family History Diabetes Family history of hypertension Family history of hyperlipidemia Parkinsons Social History Smoking Status: Former smoker tobacco type: cigarettes packs per day: 1 alcohol intake: never counseling provided: none substance use type: denies use current occupational status: retired Travel in the last 8 weeks?: Inside the [place] household members: family housing: house caffeine: Yes Have you lived/traveled outside [place] in past 30 days?: No Contact w/someone who lives/traveled outside US past 30 days?: No Exposure to someone with infectious disease in past 14 days?: No Do you have a fever (greater than 100.4 F or 38 C)?: No Have you tested positive for COVID-19?: No Exposed to someone with COVID-19 in past 14 days?: No Do you have a sore throat?: No Do you have a cough?: No Do you have any weakness?: No Do you have any diarrhea?: No Are you experiencing any unusual bleeding?: No Do you have any muscle aches/pain?: No Do you have any abdominal pain?: No Are you experiencing loss of taste or smell?: No Other Medical History Have you received the Flu Vaccine for this season: No Have you received the Pneumonia Vaccine: No Review of Systems Review of Systems Review of systems (narrative): 14 point review of systems performed, pertinent positives and negatives as per HPI Meds Home Medications and Allergies Home Medications ?Medication ?Instructions ?Recorded ?Confirmed ?Type atorvastatin 80 mg tablet 80 mg PO HS 04/05/17 01/09/25 History aspirin 325 mg tablet 325 mg PO DAILY 09/14/17 01/09/25 History isosorbide mononitrate 30 mg 30 mg PO DAILY 03/26/18 01/09/25 History tablet,extended release 24 hr amlodipine 5 mg tablet 5 mg PO DAILY 05/20/19 01/09/25 History cholecalciferol (vitamin D3) 25 25 mcg PO HS 03/13/20 01/09/25 History mcg (1,000 unit) capsule memantine 10 mg tablet 10 mg PO BID 09/18/20 01/09/25 History donepezil 5 mg tablet 5 mg PO DAILY 05/21/21 01/09/25 History multivitamin (Daily Multi-Vitamin 1 tab PO DAILY 12/03/21 01/09/25 History tablet) escitalopram oxalate 10 mg tablet 10 mg PO DAILY 06/17/22 01/09/25 History lisinopril 40 mg tablet 40 mg PO BID 01/21/23 01/09/25 History metformin 1,000 mg tablet 1,000 mg PO BID 01/22/23 01/09/25 History pantoprazole 40 mg tablet,delayed 40 mg PO DAILY 02/21/24 01/09/25 History release gabapentin 100 mg capsule 100 mg PO BID 03/11/24 01/09/25 History lorazepam 0.5 mg tablet 0.5 mg PO HS 03/11/24 01/09/25 History ferrous sulfate 325 mg (65 mg 325 mg PO DAILY 06/27/24 01/09/25 History iron) tablet (FeroSul) magnesium oxide 400 mg (241.3 mg 400 mg PO BID 06/27/24 01/09/25 History magnesium) tablet ipratropium 0.5 mg-albuterol 3 mg 3 ml inhalation QID 90 days #270 mL 10/16/24 01/09/25 Rx (2.5 mg base)/3 mL nebulization soln cefdinir 300 mg capsule 300 mg PO BID #8 caps 01/02/25 01/09/25 Rx fluticasone fur. 100 mcg-umeclid 1 inh inhalation DAILY #60 ea 01/02/25 01/09/25 Rx 62.5 mcg-vilant 25 mcg inhalat.powder (Trelegy Ellipta) furosemide 20 mg tablet 40 mg (2 x 20 mg) PO DAILY 30 days 01/02/25 01/09/25 Rx #0 tabs metoprolol succinate 100 mg 100 mg PO DAILY 01/02/25 01/09/25 History tablet,extended release 24 hr potassium chloride 20 mEq 40 meq (2 x 20 mEq) PO DAILY #14 01/02/25 01/09/25 Rx tablet,extended release (K-Tab) tabs prednisone 20 mg tablet 40 mg (2 x 20 mg) PO DAILY 4 days 01/02/25 01/09/25 Rx #8 tabs finerenone 10 mg tablet (Kerendia) 10 mg PO DAILY #30 tabs 01/09/25 01/09/25 Rx New Prescriptions to Start Prescriptions: Allergies Allergy/AdvReac Type Severity Reaction Status Date / Time Iodinated Contrast Media Allergy Mild Unknown Verified 01/09/25 10:58 allergy reaction naproxen Allergy Mild Unknown Verified 01/09/25 10:58 allergy reaction Exam Data for Last 24 hours Vital signs and Labs for Last 24 Hours: Temp Pulse Resp BP Pulse Ox O2 Del Method O2 Flow Rate 98.0 F 93 H 22 160/68 H 94 L Nasal Cannula 5 01/11/25 15:37 01/11/25 16:00 01/11/25 15:37 01/11/25 16:00 01/11/25 16:00 01/11/25 16:00 01/11/25 16:00 Laboratory Results - last 24 hr 01/11/25 15:50: WBC 20.7 H*, RBC 3.79 L, Hgb 11.1 L, Hct 34.8 L, MCV 91.8, MCH 29.3, MCHC 31.9, RDW 15.9, Plt Count 305, MPV 10.1, Neut % (Auto) 80.7 H, Lymph % (Auto) 9.4 L, [place] % (Auto) 8.6, Eos % (Auto) 0.2, Baso % (Auto) 0.2, Neut # (Auto) 16.7 H, Lymph # (Auto) 2.0, [place] # (Auto) 1.8 H, Eos # (Auto) 0.1, Baso # (Auto) 0.1, Total Counted 100, Neutrophils % (Manual) 83 H, Lymphocytes % (Manual) 10, Monocytes % (Manual) 7, Platelet Estimate Normal, RBC Morphology Normal, Sodium 138, Potassium 4.0, Chloride 97 L, Carbon Dioxide 28, Anion Gap 17.0 H, BUN 25 H, Creatinine 1.10 H, Estimated Creat Clear 39, Estimated GFR 49 L, Est GFR ( Amer) 59, Glucose 272 H, Calcium 9.0, Total Bilirubin 0.5, AST 27, ALT 30, Alkaline Phosphatase 138 H, Troponin I < 0.01, NT-Pro-B Natriuret Pep 5290 H, Total Protein 5.8 L, Albumin 3.4 L, Globulin 2.4, Albumin/Globulin Ratio 1.4 01/11/25 15:53: VBG pH 7.37, VBG pCO2 50.0, VBG pO2 43.1 H, VBG HCO3 28.0, VBG Total CO2 29.5 H, VBG O2 Saturation 76.0 H, VBG Base Excess 2.6 H, VBG Lactic Acid 6.2 H I & O for Last 24 hours: Intake & Output 01/08/25 01/09/25 01/10/25 01/11/25 23:59 23:59 23:59 23:59 Weight 55.338 kg Constitutional Constitutional: moderate distress, thin, chronically ill appearing, cooperative and somnolent *Routine HEENT Exam Head: Present normocephalic Eye: Present EOMI and PERRL ENT: Present mucous membranes moist *Routine Neck Exam Neck: Present supple; Absent lymphadenopathy *Routine Respiratory Exam Respiratory: Present accessory muscle use, prolonged expiratory phase, crackles (Left lower lung field and right lung field) and diminished air movement; Absent rhonchi or wheezes *Routine Cardiovascular Exam Cardiovascular: Present RRR *Routine Abdominal Exam Abdominal: Present soft and normoactive bowel sounds; Absent tenderness *Routine Rectal Exam Rectal:: deferred *Routine Genitalia Exam Genitalia:: deferred *Routine Extremities Exam Extremities: Absent cyanosis, clubbing or edema *Routine Skin Exam Skin: Present warm; Absent rash *Routine Neurological Exam Neurological: Present alert; Absent altered mental status or moving all extremities Comments: Right sided deficits; oriented to self and place Assessment and Plan *Assessment and plan (1) Sepsis: Status: Acute Qualifiers: Acute respiratory failure type: with hypoxia Sepsis acute organ dysfunction status: with acute organ dysfunction Sepsis type: sepsis due to unspecified organism Severe sepsis acute organ dysfunction type: acute respiratory failure Severe sepsis shock status: without septic shock Qualified Code(s): A41.9 - Sepsis, unspecified organism; R65.20 - Severe sepsis without septic shock; J96.01 - Acute respiratory failure with hypoxia Category: Medical Code(s): A41.9 - Sepsis, unspecified organism (2) Left lower lobe pneumonia: Status: Acute Qualifiers: Pneumonia type: due to unspecified organism Qualified Code(s): J18.9 - Pneumonia, unspecified organism Category: Medical Code(s): J18.9 - Pneumonia, unspecified organism (3) Acute hypoxemic respiratory failure: Status: Acute Category: Medical Code(s): J96.01 - Acute respiratory failure with hypoxia (4) CHF exacerbation: Status: Acute Category: Medical Code(s): I50.9 - Heart failure, unspecified (5) Pneumonia: Status: Acute Category: Medical Code(s): J18.9 - Pneumonia, unspecified organism (6) Acute exacerbation of chronic obstructive pulmonary disease: Status: Acute Category: Medical Code(s): J44.1 - Chronic obstructive pulmonary disease with (acute) exacerbation (7) CAD (coronary artery disease): Status: Acute Qualifiers: Associated angina: without angina Coronary Disease-Associated Artery/Lesion type: [place] artery Kaw vs. transplanted heart: [place] heart Qualified Code(s): I25.10 - Atherosclerotic heart disease of [place] coronary artery without angina pectoris Category: Medical Code(s): I25.10 - Atherosclerotic heart disease of [place] coronary artery without angina pectoris (8) Diabetes type 2, controlled: Status: Acute Category: Medical Code(s): E11.9 - Type 2 diabetes mellitus without complications (9) Diastolic CHF: Status: Acute Qualifiers: Heart failure chronicity: acute on chronic Qualified Code(s): I50.33 - Acute on chronic diastolic (congestive) heart failure Category: Medical Code(s): I50.30 - Unspecified diastolic (congestive) heart failure (10) Vascular dementia: Status: Acute Category: Medical Code(s): F01.50 - Vascular dementia, unspecified severity, without behavioral disturbance, psychotic disturbance, mood disturbance, and anxiety (11) History of CVA (cerebrovascular accident): Status: Chronic Category: Medical Code(s): Z86.73 - Personal history of transient ischemic attack (TIA), and cerebral infarction without residual deficits Plan 74-year-old female with history of CHF, CABG, CAD, CVA, diabetes, dementia. Presented with acute worsening shortness of breath. He was admitted within the past 2 weeks for community-acquired pneumonia, left lower lobe, leukocytosis and respiratory failure acute on chronic. Discharged home to complete antibiotics. Also found to have component of HFpEF. Diuretics recently increased as an outpatient but unfortunately has worsening shortness of breath. On arrival, found to have white count of 20,000 and increased oxygen requirement to 5 L. Discussed case with ER physician, request admission for treatment of recurrent pneumonia and heart failure. I agreed to admit to stepdown level of care due to increased oxygen requirement and white count of 20,000. Will continue broad-spectrum antibiotics. Strong concern for volume overload component. Initiate diuretics. Monitor closely in stepdown level of care. PSI/port score of 94, class IV risk. Problems addressed as follows: #CAP, left lower lobe #Leukocytosis #Acute on chronic hypoxic respiratory failure #COPD exacerbation #Elevated BNP # Severe sepsis -With increased oxygen requirement, white count of 20, pneumonia on chest imaging, and persistent tachycardia. Meeting criteria for severe sepsis; holding fluids however in the setting of hypertension and patient's appearance of volume overload on chest CT along with labs supporting volume overload component. ?Chest x-ray obtained showed left lower lobe consolidation concerning for effusion and pneumonia. White count elevated 20.7. Requiring 5 L up from her normal baseline of 2 to 3 L. - Requested CT of the chest in the ER, shows left lower lobe dense consolidation with small effusion. Appears to have some pulmonary congestion in general as well concerning for edema component per my review. - Diffuse crackles on exam. Initiated on broad-spectrum antibiotics in the ER. Continue azithromycin 500 mg IV every 24 hours and ceftriaxone 2 g daily. - Sputum and blood cultures pending -DuoNebs every 6 hours scheduled -Resume Trelegy 200 inhaler daily -Consider pulmonology consult Monday - Repeat CBC, CMP, magnesium ordered for the morning. Kidney function normal with BUN 25, creatinine 1.1. Potassium 4.0 # Acute on chronic HFpEF # Hypertension # CAD/history of CABG - BNP elevated at 5200, chest imaging concerning for volume overload. - Echo obtained 01/02 showing septal flattening consistent with right sided pressure/volume overload. Will administer 1 mg Bumex IV once. Reevaluate diuresis in the morning. - Holding home amlodipine and lisinopril pending response to diuresis in the setting of sepsis -Continue isosorbide mononitrate 30 mg daily, finerenone 10 mg daily, metoprolol succinate 100 mg daily #Generalized weakness ?PT and OT to evaluate. During last visit she was unable to ambulate. This is her baseline however. Recommended placement but family wants to take patient home. Patient is cared for between various [facility] homes. Hard to get home health scheduled due to no consistent home setting. Will continue to evaluate therapy needs and recommendations for safe dispo prior to discharge from hospital. GERD: Continue pantoprazole 40 mg nightly Diabetes: A1c 5.6 a week ago. Holding metformin. Continue sliding scale insulin and fingersticks ACHS. Glucose 272 on admission. Depression: Continue Lexapro 10 mg daily Vascular dementia: Continue donepezil 5 mg nightly Sleep disorder: Continue Ativan 0.5 mg nightly History of CVA: continue Lipitor 80 mg daily for hyperlipidemia, continue aspirin 325 mg daily DNR/DNI PLOV Cardiac diet
--- NOTE | 2025-01-11 16:57 | PC.NURSE ---
court supervisor contacted for bed
[2025-01-11] MEDS: AZITHROMYCIN 500 MG in 0.9 % SODIUM CHLORIDE 250 ML 250 MG IV (17:30)
--- NOTE | 2025-01-11 17:58 | PC.NURSE ---
report called to Mona
--- NOTE | 2025-01-11 18:17 | PC.NURSE ---
Patient arrived to ICU at this time. at bedside.
--- NOTE | 2025-01-11 18:17 | PC.NURSE ---
at bedside. states he will reorder patients medications from discharge summary from previous stay. Continuation of care plan.
--- NOTE | 2025-01-11 18:50 | PC.NURSE ---
Patients oxygen saturation of 88% on 6 L NC at this time. Respiratory notified. 1856 Respiratory at bedside. Respiratory to administer prescribed medications as ordered per MAY. Continuation of care plan.
[2025-01-11] MEDS: BUMETANIDE 0.25 MG/ML 10ML 1 MG IV (18:51)
[2025-01-11] MEDS: IPRATROPIUM/ALBUTEROL 3 ML NEB IH ×2 (18:57→23:41)
[2025-01-11] MEDS: SODIUM CHLORIDE 3% 15ML NEB 3 ML IH (18:58)
--- NOTE | 2025-01-11 19:00 | PC.NURSE ---
Patients oxygen saturation of 88% on 7 L NC. Continuation of care plan.
--- NOTE | 2025-01-11 19:00 | PC.NURSE ---
Patients oxygen saturation of 89-90% oxygen saturation on 6 L NC at this time. Continuation of care plan.
--- NOTE | 2025-01-11 19:00 | PC.NURSE ---
Patients oxygen saturation of 88% on 6 L NC. Continuation of care plan.
--- NOTE | 2025-01-11 19:08 | PC.NURSE ---
Patients oxygen saturation of 81% on 6 L NC. Venus Akhtar notified. Per Venus Akhtar, VBG ordered and patient placed on Venti mask at this time. Respiratory therapy notified. Respiratory therapy at bedside and placed patient on 50% Venti mask. Patients oxygen saturation of 79% on 50% Venti mask. Venus Akhtar notified. Venus Akhtar at bedside. Patient placed on 100% Non-rebreather mask. Patients oxygen saturation of 94% on 100% Nonrebreather mask. Continuation of care plan.
[2025-01-11 19:44] LABS: VBG HCO3 30.4 mmol/L (23-30); VBG PH 7.38 mmol/L (7.31-7.41); VBG PO2 32.2 mmol/L (28-40)
[2025-01-11 19:48] LABS: Lactate Venous 4.1 mmol/L (0.4-2.0); VBG PCO2 53.2 mmol/L (35-51)
[2025-01-11 20:00] LABS: Reflex Lactic Add Lactic Reflex
--- NOTE | 2025-01-11 20:00 | PC.NURSE ---
Venus Akhtar educated POA that the patient may require the need to be intubated for transfer via Ambulance to higher level of care facility. POA is agreeable at this time. This nurse verified w/ POA at 2001.
[2025-01-11 20:27] LABS: Lactic Acid Follow Up (RFLX 1) 2.6 mmol/L (0.7-2.1)
[2025-01-11 20:39] LABS: Troponin I < 0.01 ng/ml (0.00-0.034)
--- NOTE | 2025-01-11 21:07 | P.PN_ITS ---
<Statement entered by Steven Dao MD - 01/12/25 20:11> Rounded on patient prior to his practitioner prior to patient's worsening respiratory status. Did review results from CT. Given clinical change and discussion with [employer], agree with plan for transfer and urgent need for evaluation for bronchoscopy. Subjective *Date: 01/12/25 *Time: 08:27 Interval history: Admitted this afternoon for acute hypoxic respiratory failure requiring 5 L NC. NOtified by nursing staff that sats down to 70s. PLaced on Venti mask then NRB at 100% bringing sats into the mid 90s. CT scan was ordered upon admission and I reviewed the radiologist reading. Findings consistent with severe spiration left lung, near completeinfiltration of the left lower lobe and near complete bronchial obstruction in the left mainstem adn upper /lower lobe bronchi. Right lung with some faint wheezing. Left lung near absent breath sounds. Discussed with family POA that she will need transfer to higher level of care for bronchoscopy. She is a DNR/DNI here, it was explained that intubation will likely be required for procedure and possibly for transfer. They wish to proceed with transfer and aggressive care. Contacted [facility], discussed case with Dr Malhotra who agreed to accept. Intubation was not requested. Call center will notify us when bed is available. Medical Exam Vital signs and Labs for Last 24 Hours: Vital Signs Temp Pulse Pulse Resp BP BP Pulse Ox 01/11/25 20:57 99 01/11/25 20:45 99 H 29 H 98 01/11/25 20:30 101 H 28 H 98 01/11/25 20:25 98.0 F 100 H 23 97 01/11/25 20:00 101 H 20 01/11/25 19:59 101 H 01/11/25 19:00 01/11/25 18:35 100 H 01/11/25 18:08 97.9 F 96 H 22 155/56 H 01/11/25 18:00 96 H 155/56 H 88 L 01/11/25 17:45 103 H 89 L 01/11/25 17:30 99 H 144/54 H 89 L 01/11/25 17:18 90 L 01/11/25 17:00 100 H 157/60 H 90 L 01/11/25 16:30 94 H 148/66 H 94 L 01/11/25 16:00 93 H 160/68 H 94 L 01/11/25 15:54 92 H 89 L 01/11/25 15:37 98.0 F 96 H 22 176/62 H 76 L 01/11/25 15:36 94 H 87 L O2 Del Method O2 Flow Rate 01/11/25 20:57 Non-Rebreather 01/11/25 20:45 01/11/25 20:30 01/11/25 20:25 01/11/25 20:00 01/11/25 19:59 01/11/25 19:00 Nasal Cannula 6 01/11/25 18:35 01/11/25 18:08 Nasal Cannula 5 01/11/25 18:00 Nasal Cannula 6 01/11/25 17:45 Nasal Cannula 6 01/11/25 17:30 Nasal Cannula 5 01/11/25 17:18 Nasal Cannula 6 01/11/25 17:00 Nasal Cannula 5 01/11/25 16:30 01/11/25 16:00 Nasal Cannula 5 01/11/25 15:54 Nasal Cannula 5 01/11/25 15:37 Room Air 01/11/25 15:36 Nasal Cannula 5 Intake and Output 01/11/25 01/11/25 01/11/25 07:59 15:59 23:59 Intake Total 150 / 150 Balance 150 / 150 Intake: Intake, Total IV Amount 150 / 150 Ceftriaxone Sodium 2 gm In 0.9 100 / 100 % Sodium Chloride 100 ml @ 200 mls/hr IV Q24H [facility] Rx#: [id number] Magnesium Sulfate in Water 2 gm 50 / 50 In 50 ml @ 50 mls/hr IV ONCE ONE Rx#:[id number] Other: Weight 55.338 kg Patient Weight 01/11/25 23:59 Weight 55.338 kg Laboratory Results - last 24 hr 01/11/25 15:50: WBC 20.7 H*, RBC 3.79 L, Hgb 11.1 L, Hct 34.8 L, MCV 91.8, MCH 29.3, MCHC 31.9, RDW 15.9, Plt Count 305, MPV 10.1, Neut % (Auto) 80.7 H, Lymph % (Auto) 9.4 L, [place] % (Auto) 8.6, Eos % (Auto) 0.2, Baso % (Auto) 0.2, Neut # (Auto) 16.7 H, Lymph # (Auto) 2.0, [place] # (Auto) 1.8 H, Eos # (Auto) 0.1, Baso # (Auto) 0.1, Total Counted 100, Neutrophils % (Manual) 83 H, Lymphocytes % (Manual) 10, Monocytes % (Manual) 7, Platelet Estimate Normal, RBC Morphology Normal, Sodium 138, Potassium 4.0, Chloride 97 L, Carbon Dioxide 28, Anion Gap 17.0 H, BUN 25 H, Creatinine 1.10 H, Estimated Creat Clear 39, Estimated GFR 49 L, Est GFR ( Amer) 59, Glucose 272 H, Calcium 9.0, Total Bilirubin 0.5, AST 27, ALT 30, Alkaline Phosphatase 138 H, Troponin I < 0.01, NT-Pro-B Natriuret Pep 5290 H, Total Protein 5.8 L, Albumin 3.4 L, Globulin 2.4, Albumin/Globulin Ratio 1.4 01/11/25 15:53: VBG pH 7.37, VBG pCO2 50.0, VBG pO2 43.1 H, VBG HCO3 28.0, VBG Total CO2 29.5 H, VBG O2 Saturation 76.0 H, VBG Base Excess 2.6 H, VBG Lactic Acid 6.2 H 01/11/25 19:32: VBG pH 7.38, VBG pCO2 53.2 H, VBG pO2 32.2, VBG HCO3 30.4 H, VBG Total CO2 32.0 H, VBG O2 Saturation 58.0, VBG Base Excess 5.2 H, VBG Lactic Acid 4.1 H 01/11/25 20:00: Lactate 2.6 H, Troponin I < 0.01 I & O for Labs for Last 24 Hours: Intake & Output 01/08/25 01/09/25 01/10/25 01/11/25 23:59 23:59 23:59 23:59 Intake Total 150 / 150 Balance 150 / 150 Weight 55.338 kg Respiratory: Present respiratory distress, wheezes and diminished air movement Cardiac: Present Reg Rate and Rhythm Assessment and Plan *Assessment and plan (1) Acute on chronic hypoxic respiratory failure: Status: Acute Category: Medical Code(s): J96.21 - Acute and chronic respiratory failure with hypoxia (2) Aspiration pneumonia: Status: Acute Qualifiers: Aspiration pneumonia type: unspecified Laterality: left Lung location: lower lobe of lung Qualified Code(s): J69.0 - Pneumonitis due to inhalation of food and vomit Category: Medical Code(s): J69.0 - Pneumonitis due to inhalation of food and vomit (3) Bronchial obstruction: Status: Acute Category: Medical Code(s): J98.09 - Other diseases of bronchus, not elsewhere classified Plan Findings consistent with severe aspiration left lung, near complete infiltration of the left lower lobe and near complete bronchial obstruction in the left mainstem and upper /lower lobe bronchi. Right lung with some faint wheezing. Left lung near absent breath sounds. With CT findings and increasing oxygen requirement needs transfer to higher level of care for bronchoscopy. Discussed with family POA. She is a DNR/DNI here, it was explained that intubation will likely be required for procedure and possibly for transfer. They wish to proceed with transfer and aggressive care. Contacted [facility], discussed case with Dr Malhotra who agreed to accept. Intubation was not requested. Call center will notify us when bed is available.
[2025-01-11 22:06] LABS: Reflex Lactic (2 hrs) Add Lactic Reflex
[2025-01-11] MEDS: humaLOG 100 UNITS/ML 10ML VIAL (SSI) SUBCUT (22:19)
[2025-01-11 23:52] LABS: Lactic Acid Follow up (RFLX 2) 1.8 mmol/L (0.7-2.1)
[2025-01-12] VITALS: BP 149/56; PULSE 98; RESP 22; TEMP 36.8; O2SAT 99
[2025-01-12 00:05] LABS: Troponin I < 0.01 ng/ml (0.00-0.034)
--- NOTE | 2025-01-12 08:27 | P.DS_ITS ---
<Statement entered by Steven Dao MD - 01/13/25 16:17> Rounded on patient prior to nurse practitioner. Personally examined and interviewed patient. Agree with exam findings and care plan as documented. General Admission date:: 01/11/25 Discharge date: 01/11/25 HPI HPI HPI: Margarita Stone is a 74-year-old female with a history of COPD on 2 L nasal cannula at baseline, CHF, CVA, coronary artery disease, hypertension, diabetes, hyperlipidemia, left-sided pleural effusion, kyphosis, who presents to the emergency department with her daughter for concern for worsening shortness of breath. She was just admitted less than 2 weeks ago for similar presentation. And completed her antibiotics at home. States that she has been getting more short of breath over the past day. Had increased her diuretic in the past 24 to 48 hours with no improvement. Patient reports increased cough and work of breathing but cough is nonproductive. No fever. No nausea or vomiting. Denies any swelling or edema in her legs. Necessitating 5 L of oxygen on arrival. Workup with white count of 20,000. Chest imaging showing left lower lobe pneumonia. BNP elevated 5000. Medicine consulted to admit for pneumonia and CHF exacerbation. Hospital Course Hospital Course Hospital Course: Admitted this afternoon for acute hypoxic respiratory failure requiring 5 L NC. Notified by nursing staff that sats down to 70s. PLaced on Venti mask then NRB at 100% bringing sats into the mid 90s. CT scan was ordered upon admission and I reviewed the radiologist reading. Findings consistent with severe aspiration left lung, near complete infiltration of the left lower lobe and near complete bronchial obstruction in the left mainstem adn upper /lower lobe bronchi. Right lung with some faint wheezing. Left lung near absent breath sounds. Discussed with family POA that she will need transfer to higher level of care for bronchoscopy. She is a DNR/DNI here, it was explained that intubation will likely be required for procedure and possibly for transfer. They wish to proceed with transfer and aggressive care. Contacted [facility] with Dr Malhotra who agreed to accept. Intubation was not requested. Call center will notify us when bed is available. Exam Data for Last 24 hours Vital signs and Labs for Last 24 Hours: Temp Pulse Resp BP Pulse Ox O2 Del Method O2 Flow Rate 98.3 F 98 H 22 149/56 H 99 Venturi Mask 15 01/12/25 00:00 01/12/25 00:00 01/12/25 00:00 01/12/25 00:00 01/12/25 00:00 01/12/25 00:00 01/12/25 00:00 Laboratory Results - last 24 hr 01/11/25 15:50: WBC 20.7 H*, RBC 3.79 L, Hgb 11.1 L, Hct 34.8 L, MCV 91.8, MCH 29.3, MCHC 31.9, RDW 15.9, Plt Count 305, MPV 10.1, Neut % (Auto) 80.7 H, Lymph % (Auto) 9.4 L, [place] % (Auto) 8.6, Eos % (Auto) 0.2, Baso % (Auto) 0.2, Neut # (Auto) 16.7 H, Lymph # (Auto) 2.0, [place] # (Auto) 1.8 H, Eos # (Auto) 0.1, Baso # (Auto) 0.1, Total Counted 100, Neutrophils % (Manual) 83 H, Lymphocytes % (Manual) 10, Monocytes % (Manual) 7, Platelet Estimate Normal, RBC Morphology Normal, Sodium 138, Potassium 4.0, Chloride 97 L, Carbon Dioxide 28, Anion Gap 17.0 H, BUN 25 H, Creatinine 1.10 H, Estimated Creat Clear 39, Estimated GFR 49 L, Est GFR ( Amer) 59, Glucose 272 H, Calcium 9.0, Total Bilirubin 0.5, AST 27, ALT 30, Alkaline Phosphatase 138 H, Troponin I < 0.01, NT-Pro-B Natriuret Pep 5290 H, Total Protein 5.8 L, Albumin 3.4 L, Globulin 2.4, Albumin/Globulin Ratio 1.4 01/11/25 15:53: VBG pH 7.37, VBG pCO2 50.0, VBG pO2 43.1 H, VBG HCO3 28.0, VBG Total CO2 29.5 H, VBG O2 Saturation 76.0 H, VBG Base Excess 2.6 H, VBG Lactic Acid 6.2 H 01/11/25 19:32: VBG pH 7.38, VBG pCO2 53.2 H, VBG pO2 32.2, VBG HCO3 30.4 H, VBG Total CO2 32.0 H, VBG O2 Saturation 58.0, VBG Base Excess 5.2 H, VBG Lactic Acid 4.1 H 01/11/25 20:00: Lactate 2.6 H, Troponin I < 0.01 01/11/25 23:30: Lactate 1.8, Troponin I < 0.01 I & O for Last 24 hours: Intake & Output 01/09/25 01/10/25 01/11/25 01/12/25 23:59 23:59 23:59 23:59 Intake Total 150 / 150 Balance 150 / 150 Weight 55.338 kg *Routine HEENT Exam Head: Present normocephalic and atraumatic *Routine Neck Exam Neck: Present supple *Routine Respiratory Exam Respiratory: Present respiratory distress, wheezes and other Comments: Breath sounds absent left lung field, Right with faint wheezing *Routine Cardiovascular Exam Cardiovascular: Present Normal S1 and Normal S2 *Routine Abdominal Exam Abdominal: Present soft *Routine Rectal Exam Comments: deferred *Routine Extremities Exam Extremities: Present pulses intact *Routine Skin Exam Skin: Present intact *Routine Neurological Exam Comments: drowsy Results Data Completed and Pending Labs on day of discharge: Labs from last 24 hours 01/11/25 01/11/25 01/11/25 23:30 20:00 19:32 WBC RBC Hgb Hct MCV MCH MCHC RDW Plt Count MPV Neut % (Auto) Lymph % (Auto) [place] % (Auto) Eos % (Auto) Baso % (Auto) Neut # (Auto) Lymph # (Auto) [place] # (Auto) Eos # (Auto) Baso # (Auto) Total Counted Neutrophils % (Manual) Lymphocytes % (Manual) Monocytes % (Manual) Platelet Estimate RBC Morphology VBG pH 7.38 VBG pCO2 53.2 H VBG pO2 32.2 VBG HCO3 30.4 H VBG Total CO2 32.0 H VBG O2 Saturation 58.0 VBG Base Excess 5.2 H VBG Lactic Acid 4.1 H Sodium Potassium Chloride Carbon Dioxide Anion Gap BUN Creatinine Estimated Creat Clear Estimated GFR Est GFR ( Amer) Glucose Lactate 1.8 2.6 H Calcium Total Bilirubin AST ALT Alkaline Phosphatase Troponin I < 0.01 < 0.01 NT-Pro-B Natriuret Pep Total Protein Albumin Globulin Albumin/Globulin Ratio 01/11/25 01/11/25 15:53 15:50 WBC 20.7 H* RBC 3.79 L Hgb 11.1 L Hct 34.8 L MCV 91.8 MCH 29.3 MCHC 31.9 RDW 15.9 Plt Count 305 MPV 10.1 Neut % (Auto) 80.7 H Lymph % (Auto) 9.4 L [place] % (Auto) 8.6 Eos % (Auto) 0.2 Baso % (Auto) 0.2 Neut # (Auto) 16.7 H Lymph # (Auto) 2.0 [place] # (Auto) 1.8 H Eos # (Auto) 0.1 Baso # (Auto) 0.1 Total Counted 100 Neutrophils % (Manual) 83 H Lymphocytes % (Manual) 10 Monocytes % (Manual) 7 Platelet Estimate Normal RBC Morphology Normal VBG pH 7.37 VBG pCO2 50.0 VBG pO2 43.1 H VBG HCO3 28.0 VBG Total CO2 29.5 H VBG O2 Saturation 76.0 H VBG Base Excess 2.6 H VBG Lactic Acid 6.2 H Sodium 138 Potassium 4.0 Chloride 97 L Carbon Dioxide 28 Anion Gap 17.0 H BUN 25 H Creatinine 1.10 H Estimated Creat Clear 39 Estimated GFR 49 L Est GFR ( Amer) 59 Glucose 272 H Lactate Calcium 9.0 Total Bilirubin 0.5 AST 27 ALT 30 Alkaline Phosphatase 138 H Troponin I < 0.01 NT-Pro-B Natriuret Pep 5290 H Total Protein 5.8 L Albumin 3.4 L Globulin 2.4 Albumin/Globulin Ratio 1.4 DS: Diagnosis Discharge Diagnosis (1) Acute on chronic hypoxic respiratory failure: Status: Acute Code(s): J96.21 - Acute and chronic respiratory failure with hypoxia (2) Aspiration pneumonia: Status: Acute Code(s): J69.0 - Pneumonitis due to inhalation of food and vomit Qualifiers: Aspiration pneumonia type: unspecified Laterality: left Lung location: lower lobe of lung Qualified Code(s): J69.0 - Pneumonitis due to inhalation of food and vomit (3) Bronchial obstruction: Status: Acute Code(s): J98.09 - Other diseases of bronchus, not elsewhere classified Meds Home Medications and Allergies Home Medications ?Medication ?Instructions ?Recorded ?Confirmed ?Type atorvastatin 80 mg tablet 80 mg PO HS 04/05/17 5 History aspirin 325 mg tablet 325 mg PO DAILY 09/14/17 History isosorbide mononitrate 30 mg 30 mg PO DAILY 03/26/18 1 History tablet,extended release 24 hr amlodipine 5 mg tablet 5 mg PO DAILY 05/20/1901/09 History cholecalciferol (vitamin D3) 25 25 mcg PO HS 03/13/20 01/09/25 History mcg (1,000 unit) capsule memantine 10 mg tablet 10 mg PO BID 09/18/20 History donepezil 5 mg tablet 5 mg PO DAILY 05/21/2101/09 History multivitamin (Daily Multi-Vitamin 1 tab PO DAILY 12/0301/09/25 History tablet) escitalopram oxalate 10 mg tablet 10 mg PO DAILY 06/1701/09/25 History lisinopril 40 mg tablet 40 mg PO BID 01/21/23 History metformin 1,000 mg tablet 1,000 mg PO BID 01/22/23 History pantoprazole 40 mg tablet,delayed 40 mg PO DAILY 02/2001/09/25 History release gabapentin 100 mg capsule 100 mg PO BID 03/11/2401/09 History lorazepam 0.5 mg tablet 0.5 mg PO HS 03/11/24 History ferrous sulfate 325 mg (65 mg 325 mg PO DAILY 06/27/24 01/09/25 History iron) tablet (FeroSul) magnesium oxide 400 mg (241.3 mg 400 mg PO BID 5 01/09/25 History magnesium) tablet ipratropium 0.5 mg-albuterol 3 mg 3 ml inhalation QID 90 days #270 mL 10/16/24 01/09/25 Rx (2.5 mg base)/3 mL nebulization soln fluticasone fur. 100 mcg-umeclid 1 inh inhalation MAILE Y #60 ea 01/02/25 01/09/25 Rx 62.5 mcg-vilant 25 mcg inhalat.powder (Trelegy Ellipta) furosemide 20 mg tablet 40 mg (2 x 20 mg) PO DAILY 3 0 days 01/02/25 01/09/25 Rx #0 tabs metoprolol succinate 100 mg 100 mg PO DAILY 01/02/25 1 History tablet,extended release 24 hr potassium chloride 20 mEq 40 meq (2 x 20 mEq) PO DAILY #14 01/02/25 01/09/25 Rx tablet,extended release (K-Tab) tabs prednisone 20 mg tablet 40 mg (2 x 20 mg) PO DAILY 4 days 01/02/25 01/09/25 Rx #8 tabs finerenone 10 mg tablet (Kerendia) 10 mg PO DAILY #30 tabs 01/09/25 01/09/25 Rx azithromycin 500 mg intravenous 500 mg IV Q24H #0 ea 1 Rx solution ceftriaxone 2 gram intravenous 2 g IV Q24H #0 ea 01/12 Rx solution New Prescriptions to Start Prescriptions: Allergies Allergy/AdvReac Type Severity Reaction Status Date / Time Iodinated Contrast Media Allergy Mild Unknown Verified 01/09/25 10:58 allergy reaction naproxen Allergy Mild Unknown Verified 01/09/25 10:58 allergy reaction Discharge Plan Disposition Patient Disposition: Xfer Short-Term Hosp Discharge Order Discharge Orders: Discharge Order (Routine); Ordered 01/11/25 Ordered By: Venus Akhtar Follow up Plan Prescriptions/Medication Reconciliation: New azithromycin 500 mg Recon Soln 500 mg IV Q24H Qty: 0 0RF ceftriaxone 2 gram Recon Soln 2 g IV Q24H Qty: 0 0RF Continued atorvastatin 80 mg tablet 80 mg PO HS aspirin 325 mg tablet 325 mg PO DAILY multivitamin [Daily Multi-Vitamin] Tablet 1 tab PO DAILY escitalopram oxalate 10 mg tablet 10 mg PO DAILY Patient Comments: TAKE 1 TABLET BY MOUTH ONCE DAILY. pantoprazole 40 mg tablet,delayed release (DR/EC) 40 mg PO DAILY Patient Comments: ONE (1) TAB(S) ORALLY ONCE A DAY 90 DAYS Kerendia 10 mg tablet 10 mg PO DAILY Qty: 30 2RF cholecalciferol (vitamin D3) 25 mcg (1,000 unit) capsule 25 mcg PO HS memantine 10 mg tablet 10 mg PO BID Patient Comments: TAKE 1 TABLET BY MOUTH TWICE DAILY. donepezil 5 mg tablet 5 mg PO DAILY ipratropium-albuterol 0.5 mg-3 mg(2.5 mg base)/3 mL solution for nebulization 3 ml inhalation QID 90 Days Qty: 270 2RF isosorbide mononitrate 30 MG tablet 30 mg PO DAILY lisinopril 40 mg tablet 40 mg PO BID metformin 1,000 mg tablet 1,000 mg PO BID Patient Comments: TAKE 1 TABLET BY MOUTH TWICE DAILY gabapentin 100 mg capsule 100 mg PO BID Patient Comments: TAKE 1 CAPSULE BY MOUTH TWICE DAILY lorazepam 0.5 mg tablet 0.5 mg PO HS magnesium oxide 400 mg (241.3 mg magnesium) tablet 400 mg PO BID Patient Comments: TAKE 1 TABLET BY MOUTH TWICE DAILY ferrous sulfate [FeroSul] 325 mg (65 mg iron) tablet 325 mg PO DAILY Patient Comments: TAKE ONE (1) TABLET BY MOUTH DAILY ,TAKE WITHVITAMINC amlodipine 5 MG tablet 5 mg PO DAILY metoprolol succinate 100 mg tablet extended release 24 hr 100 mg PO DAILY Patient Comments: TAKE 1 TABLET BY MOUTH ONCE DAILY prednisone 20 mg Tablet 40 mg PO DAILY 4 Days Qty: 8 0RF Trelegy Ellipta 100-62.5-25 mcg blister with device 1 inh inhalation DAILY Qty: 60 0RF furosemide 20 mg tablet 40 mg PO DAILY 30 Days Qty: 0 0RF Patient Comments: TAKE 1 TABLET BY MOUTH DAILY. potassium chloride [K-Tab] 20 mEq tablet extended release 40 meq PO DAILY Qty: 14 0RF Discontinued cefdinir 300 mg capsule 300 mg PO BID Qty: 8 0RF Problem Reconciliation Problems Reviewed?: Yes Patient Discharge Instructions ACTIVITY: Continue current activity DIET: NPO Stand Alone Forms: Transfer Record Print Language: Kinyarwanda Providers Primary Care Provider: Roe Gleason Admit Provider: Steven Dao Attending Provider: Steven Dao
[2025-01-14 11:11] LABS: POC Glucose,Bedside 292 gm/dL (70-110)
== END 2025-01-12 00:22 | disposition short-term general hospital (02) | DRG 871 ==
LOC: ER 15:40 → ICU 18:04 → 2ND 01-13 11:02
PROVIDERS: Nurse Practitioner Acute Care; Admitting Provider Internal Medicine Adolescent Medicine; Emergency Provider Student in an Organized Health Care Education/Training Program; PCP Internal Medicine Adolescent Medicine; Visit Provider Internal Medicine Adolescent Medicine
DX: A41.9 Sepsis, unspecified organism (principal); I50.33 Acute on chronic diastolic (congestive) heart failure; J18.9 Pneumonia, unspecified organism; J96.21 Acute and chronic respiratory failure with hypoxia; J69.0 Pneumonitis due to inhalation of food and vomit; J44.1 Chronic obstructive pulmonary disease with (acute) exacerbation; J44.0 Chronic obstructive pulmonary disease with (acute) lower respiratory infection; I11.0 Hypertensive heart disease with heart failure; J98.09 Other diseases of bronchus, not elsewhere classified; R65.20 Severe sepsis without septic shock; I25.10 Atherosclerotic heart disease of native coronary artery without angina pectoris; E11.9 Type 2 diabetes mellitus without complications; F01.50 Vascular dementia, unspecified severity, without behavioral disturbance, psychotic disturbance, mood disturbance, and anxiety; F32.A Depression, unspecified; K21.9 Gastro-esophageal reflux disease without esophagitis; G47.9 Sleep disorder, unspecified; R53.1 Weakness; Z66 Do not resuscitate; Z95.1 Presence of aortocoronary bypass graft; Z86.73 Personal history of transient ischemic attack (TIA), and cerebral infarction without residual deficits; Z87.891 Personal history of nicotine dependence; Z79.82 Long term (current) use of aspirin; Z79.52 Long term (current) use of systemic steroids; Z79.84 Long term (current) use of oral hypoglycemic drugs; Z79.899 Other long term (current) drug therapy; Z91.041 Radiographic dye allergy status; Z88.6 Allergy status to analgesic agent
CPT/HCPCS: 36415; 71045; 71250; 80053; 82803; 82962; 83605; 83880; 84484; 85007; 85025; 87040; 89220; 93005; 94640; 99285; G0378; J0456; J0696; J1938; J1939; J2919; J3475; J7050

== ENCOUNTER 2025-02-02 18:43 | Emergency (ER) | payer MEDICARE, MEDICAID, SELFPAY ==
--- OUTSIDE RECORDS SUMMARY | 2025-01-09 04:30 | XMS_ITS ---
Author Organization [facility] PE D JANEE Address [address] [place] [address] Care Team Providers Care Metal Filer Name Role Phone Roe Gleason Primary Care Provider [phone] REASON FOR VISIT med ck Encounters Encounter Location Date Provider Diagnosis [address] [address] 01/09/2025 Roe Gleason Plan Of Treatment No Information Progress Notes * BERTHA Margarita JDOB:1950 (74 yo F)Acc No.[id number]:01/09/2025 Progress Notes Patient: Margarita GALEANO Provider: Arleen Gleason MD :1950 A ge:74 Y S ex:Female Date:01/09/2025 Address:[id number] Subjective: * Chief Complaints: * 1 . Med ck. * Medical History: Objective: * Vitals: Assessment: Plan: * Treatment: * * Electronic signature of Drew Gleason MD FAAP on 02/02/2025 at 07:07 PM EST Sign off status: Pending * Provider: Arleen Gleason MD Date: Generated for Printi ng/Faxing/eTransmitting on: 04/04/2024 07:07 PM EST
--- OUTSIDE RECORDS SUMMARY | 2025-01-09 07:30 | XMS_ITS ---
Author Organization [facility] D JANEE Address [address] [place] [address] Care Team Providers Care Hot Stick Worker Name Role Phone Roe Gleason Primary Care Provider Allergies Allergen (clinical drug ingredient) Drug/Non Drug Allergy documented on EMR Reaction Allergy Type Onset Date Status naproxen Naproxen Unknown Drug Allergy Active REASON FOR VISIT [facility] D/C 01/02/2025, labs Medications Medication SIG (Take, Route, Frequency, Duration) Notes Start Date End Date Status Metoprolol Succinate ER 100 MG 1 tablet Orally Once a day; Duration: 180 days Active amLODIPine Besylate 5 MG ONE (1) TAB(S) ORALLY ONCE A DAY 90 DAYS; Duration: 90 Active Memantine HCl 10 MG TAKE ONE (1) TABLET BY MOUTH TWICE DAILY; Duration: 150 Active Furosemide 40 MG TAKE ONE (1) TABLET BY MOUTH EVERY DAY; Duration: 90 days Active Pantoprazole Sodium 40 MG ONE (1) TAB(S) ORALLY ONCE A DAY 90 DAYS; Duration: 90 Active Nystatin 129809 UNIT/GM 1 application Ex ternally three times daily till clear; Duration: 14 days 07/04/2024 Active Escitalopram Oxalate 10 MG 1 tab(s) oral ly once a day; Duration: 90 days Active Proctosol HC 2.5 % 1 taya applied topica lly 3 times a day; Duration: 14 days 03/21/2024 Active Albuterol Sulfate (2.5 MG/3ML) 0.083% 3 mL by nebulizer 4 times a day; Duration: 30 days 11/16/2023 Active Ipratropium [place] 0.02 % 2.5 mL by neb ulizer 4 times a day; Duration: 30 days 11/16/2023 Active Kerendia 10 MG 1 tablet Orally Once a day Active Gabapentin 100 MG TAKE ONE (1) CAPSULE BY MOUTH TWICE DAILY 30; Duration: 30 01/06/2025 Active Lisinopril 40 MG TAKE ONE (1) TABLET ORALLY TWO (2) TIMES A DAY; Duration: 90 Active metFORMIN HCl 1000 MG TAKE 1 TABLET BY M OUTH TWICE DAILY; Duration: 90 Active Magnesium Oxide 400 MG TAKE ONE (1) TABL ET BY MOUTH TWICE DAILY 90; Duration: 90 Active Atorvastatin Calcium 80 MG TAKE ONE (1) TABLET BY MOUTH EVERY NIGHT AT BEDTIME; Duration: 90 Active Aspirin 325 MG TAKE ONE (1) TABLET BY MOUTH EVERY DAY 90; Duration: 90 Active Vitamin D3 25 MCG (1000 UT) TAKE ONE (1) TABLET BY MOUTH EVERY DAY 90; Duration: 90 Active LORazepam 0.5 MG TAKE ONE (1) TABLET BY MOUTH EVERY DAY 30; Duration: 30 11/29/2024 Active Loratadine 10 MG 1 tablet Orally Once a day as needed for allergies; Duration: 30 days 11/22/2024 Active Tab-A-[place] - TAKE ONE (1) TABLET BY MOUTH EVERY DAY; Duration: 90 Active FeroSul 325 (65 Fe) MG TAKE ONE (1) TABL ET BY MOUTH DAILY ,TAKE WITHVITAMINC; Duration: 90 Active Isosorbide Mononitrate ER 30 MG TAKE 1 TABLET BY MOUTH EVERY DAY; Duration: 90 Active Donepezil HCl 5 MG TAKE 1 TABLET BY CLARA TH EVERY DAY WITH BREAKFAST; Duration: 90 Active Social History Tobacco Use: Social History Observation Description Date Details (start date - stop date) Former Smoker NA - NA Smoking: Question Answer Notes Are you a: former smoker How long has it been since you last smoked? 3-6 months Vital Signs Temperature 97.9 degrees Fahrenheit 01/10/20 25 Blood pressure systolic 118 mm Hg 01/10/20 25 Blood pressure diastolic 58 mm Hg 025 Heart Rate 74 /min 01/09/2025 Height 61.5 in 01/09/2025 Weight 127 lbs 01/09/2025 BMI 23.61 kg/m2 01/09/2025 Encounters Encounter Location Date Provider Diagnosis [facility] [address] [address] 01/09/2025 Roe Gleason COPD exacerbation J44.1 ; Chronic hypoxic respiratory failure J96.11 ; Acute on chronic congestive heart failure, unspecified heart failure type I50.9 and Hospital discharge follow-up Z09 Assessments Encounter Date Diagnosis (ICD Code) Assessment Notes Treatment Notes Treatment Clinical Notes Section Notes 01/09/2025 COPD exacerbation (ICD-10 - J44.1) Overall seems at baseline. Continue inhaler therapy, supportive care, nebulizers, pulmonary toilet and oxygen. 01/09/2025 Chronic hypoxic respiratory failure (ICD-10 - J96.11) Again seems to be back at baseline, has finished up antibiotics. Continue oxygen 01/09/2025 Acute on chronic congestive heart failure, unspecified heart failure type (ICD-10 - I50.9) Interesting strategy of potassium management, will check potassium in 2 weeks and I will see her in 2 weeks to follow-up labs at that point 01/09/2025 Hospital discharge follow-up (ICD-10 - Z09) Personally reviewed H&P and discharge summary as available from hospital discharge documentation. Reviewed pertinent labs and test done in the hospital. Personally reconciled medication. Plan Of Treatment Treatment Notes Assessment Notes COPD exacerbation Overall seems at bas [facility]. Continue inhaler therapy, supportive care, nebulizers, pulmonary toilet and oxygen. Chronic hypoxic respiratory failure Again seems to be back at baseline, has finished up antibiotics. Continue oxygen Acute on chronic congestive heart failure, unspecified heart failure type Interesting strategy of potassium management, will check potassium in 2 weeks and I will see her in 2 weeks to follow-up labs at that point Hospital discharge follow-up Personally reviewed H&P and discharge summary as available from hospital discharge documentation. Reviewed pertinent labs and test done in the hospital. Personally reconciled medication. Future Test Test Name Order Date BASIC METABOLIC PANEL (27633) 01/20/2025 MAGNESIUM (622) 01/20/2025 B TYPE NATRIURETIC PEPTIDE (BNP) (47974) 01/20/2025 Next Appt Details Follow Up: prn,2 Weeks, Reas on: Progress Notes * Margarita STONEDOB:1950 (74 yo F)Acc No.[id number]:01/09/2025 HOSP F/U Patient: Margarita GALEANO Provider: Arleen Gleason MD :1950 A ge:74 Y S ex:Female Date:01/09/2025 Address:[place], [id number] Subjective: * Chief Complaints: * 1 . H D/C 01/02/2025. 2. Labs. * HPI: I ntrim History: Transition of care visit from hospital D ate of admission to hospital: 1 , D ate of receipt of hospital admission report: 1 ,?Date of discharge from hospital: , D ate of receipt of hospital discharge summary: 1 , D ischarge medications reviewed and reconciled from hospital: M edications left unchanged. Patient here for transitional care visit from admission from ER visit on 01 01, admitted to hospital and then discharged on 01/02. Found to have lobar pneumonia, sent home on cefdinir and prednisone taper. Saw pulmonary today, no changes in plan, they are scheduling her for PFTs in a couple of months. Cardiology saw her today, she had low potassium and so they started Danielle Dee 10 mg daily and would like us to do the potassium monitoring. Apparently-their note is not finished yet-family states that their rationale was it might help her with some fluid issues and it would hold onto her potassium. * Medical History: H [place], Hyperlipidemia, CVA - sxs resolve except for word finding issues., NIDDM, Refuses mammography, negative cologuard screening October 2016 and 05/2021, Normal eye examination fall 2016, normal bone density test on May/2018. * Surgical History: C ABG 2012, hysterectomy , rt eye- cataract surgery 10/2023. * Hospitalization/Major Diagno stic Procedure: edward villegas , [facility], Dehydration 12/2018, uti 05/2019, [place] 01/2023, [facility]- Low oxygen, pneumonia left lung, fluid around heart. 03/11/24-03/13/24, [facility] 06/27-07/2014, [facility] 01/01-11/2024. * Family History: F ather: . M other: , diagnosed with Diabetes, Heart Disease. P aternal Grand Father: . P aternal Grand Mother: . M aternal Grand Father: . M aternal Grand Mother: . S iblings: alive, 1 brother, 1 sister living3 brothers -MI1 sister - cancer, diagnosed with Cancer, Heart Disease. Shahram stephens: alive.?5 brother(s) , 2 sister(s) . 3 [...] no. Occupation: disability. * Medications: T aking Kerendia 10 MG Tablet 1 tablet Orally Once a day , Taking Ipratropium [place] 0.02 % Solution 2.5 mL by nebulizer 4 times a day , Taking Albuterol Sulfate (2.5 MG/3ML) 0.083% Nebulization Solution 3 mL by nebulizer 4 times a day , Taking Proctosol HC 2.5 % Cream 1 taya applied topically 3 times a day , Taking Escitalopram Oxalate 10 MG Tablet 1 tab(s) orally once a day , Taking Nystatin 337832 UNIT/GM Ointment 1 application Externally three times daily till clear , Taking Pantoprazole Sodium 40 MG Tablet Delayed Release ONE (1) TAB(S) ORALLY ONCE A DAY 90 DAYS , Taking Furosemide 40 MG Tablet TAKE ONE (1) TABLET BY [...] MOUTH EVERY DAY WITH BREAKFAST , Taking Isosorbide Mononitrate ER 30 MG Tablet Extended Release 24 Hour TAKE 1 TABLET BY MOUTH EVERY DAY , Taking FeroSul 325 (65 Fe) MG Tablet TAKE ONE (1) TABLET BY MOUTH DAILY ,TAKE WITHVITAMINC , Taking Tab-A-[place] - Tablet TAKE ONE (1) TABLET BY MOUTH EVERY DAY , Taking Loratadine 10 MG Tablet 1 tablet Orally Once a day as needed for allergies , Taking LORazepam 0.5 MG Tablet TAKE ONE (1) TABLET BY MOUTH EVERY DAY 30 , Taking Vitamin D3 25 MCG (1000 UT) Tablet TAKE ONE (1) TABLET BY MOUTH EVERY DAY 90 , Taking Aspirin 325 MG Tablet Delayed Release TAKE ONE (1) TABLET BY MOUTH EVERY DAY 90 , Taking Atorvastatin Calcium 80 MG Tablet TAKE ONE (1) TABLET BY MOUTH EVERY NIGHT AT BEDTIME , Taking Magnesium Oxide 400 MG Tablet TAKE ONE (1) TABLET BY MOUTH TWICE DAILY 90 , Taking metFORMIN HCl 1000 MG Tablet TAKE 1 TABLET BY MOUTH TWICE DAILY , Taking Lisinopril 40 MG Tablet TAKE ONE (1) TABLET ORALLY TWO (2) TIMES A DAY , Taking Gabapentin 100 MG Capsule TAKE ONE (1) CAPSULE BY MOUTH TWICE DAILY 30 , Discontinued Amoxicillin-Pot Clavulanate 875-125 MG Tablet 1 tablet Orally every 12 hrs , Discontinued Nystatin 199417 UNIT/GM Ointment 1 application Externally Twice a day As needed rash in underwear area., Medication List reviewed and reconciled with the patient * Allergies: N aproxen. Objective: * Vitals: N urse: dw, Pain: 0, Temp: 97.9, RR: 16, HR: 74, BP: 118/58, Ht: 61.5, Wt: 127, BMI:23.61. * Examination: G eneral Examination: General P [...] ormal Mood/Affect. Assessment: * Assessment: 1. C OPD exacerbation - J44.1 (Primary) 2 . C hronic hypoxic respiratory failure - J96.11 3 . A cute on chronic congestive heart failure, unspecified heart failure type - I50.9 4 . H ospital discharge follow-up - Z09 Plan: * Treatment: 2. C hronic hypoxic respiratory failure Notes: Again seems to be back at baseline, has finished up antibiotics. Continue oxygen 3. A cute on chronic congestive heart failure, unspecified heart failure type L AB: BASIC METABOLIC PANEL (33726) (Ordered for 01/20/2025) L AB: MAGNESIUM (622) (Ordered for 01/20/2025) L AB: B TYPE NATRIURETIC PEPTIDE (BNP) (47683) (Ordered for 01/20/2025) Notes: Interesting strategy of potassium management, will check potassium in 2 weeks and I will see her in 2 weeks to follow-up labs at that point 4. H ospital discharge follow-up Notes: Personally reviewed H&P and discharge summary as available from hospital discharge documentation. Reviewed pertinent labs and test done in the hospital. Personally reconciled medication. * Procedure Codes: 9 9496 TRANS CARE MGMT 7 DAY DISCH, Modifiers: 25 , 1111F DSCHR MED/CURENT MED MERGE * Follow Up: p rn,2 Weeks * * Sign off status: Completed true * Provider: Arleen Gleason MD Date: Generated for Dominick harrell/Danica/eTransmitting on: 04/04/2024 07:08 PM EST History and Physical Notes * HPI (History of Present Illness) Category Sub-Category Detail Notes Category Not es In[place] History Transition of care visit from hospital Date of admission to hospital:: 01/01/2025 Patient here for transitional care visit from admission from ER visit on 01 01, admitted to hospital and then discharged on 01/02. Found to have lobar pneumonia, sent home on cefdinir and prednisone taper. Saw pulmonary today, no changes in plan, they are scheduling her for PFTs in a couple of months. Cardiology saw her today, she had low potassium and so they started Danielle Dee 10 mg daily and would like us to do the potassium monitoring. Apparently-their note is not finished yet-family states that their rationale was it might help her with some fluid issues and it would hold onto her potassium. Date of receipt of hospital admission re port:: 01/02/2025 Date of discharge from hospital:: 2024 Date of receipt of hospital discharge lewis mmary:: 01/03/2025 Discharge medications review ed and reconciled from hospital:: Medications left unchanged Examination Category Sub-Category Detail Notes Category Not [...]
--- OUTSIDE RECORDS SUMMARY | 2025-01-12 00:27 | XMS_ITS | Encounter Summary ---
Author Organization [facility] ([place], [place], [place], [place], [place]) Address [address] [address] Care Team Providers Care Roofing Technician Name Role Phone Roe Gleason MD Primary Care Provider + [phone] Reason for Visit * Auth/Cert (Routine) Specialty Diagnoses / Procedures Referred By Contjn t Referred To Contact Diagnoses Aspiration pneumonia (HCC) Bronchial obstruction Occlusion [facility] [place] [address] Phone: tel: fax: [facility] [place] [address] Phone: tel: fax: Referral ID Status Reason Start Date Expiration Date Visits Re quested Visits Authorized [id number] 1 1 Encounter Details Date Type Department Care Team (Late st Contact Info) Description 01/12/2025 1:27 AM EDT - 01/23/2025 2:58 PM EDT Hospital Encounter [facility] Cardiac Telemetry 1 [place] [address] Nathan Malhotra MD [address] [facility] [place] [address] Carmelita Spencer DO [address] [id number] Ana Grover MD [address] [id number] [place] [address] [place] [address] [id number] [place] [address] [place] [address] [id number] Discharge Disposition: Home or Self Care Social History Tobacco Use Types Packs/Day Years Used Date Smoking Tobacco: Never Smokeless Tobacco: Never Tobacco Cessation:Counseling Given: No Housing Stability Vital Sign Answer Jose e Recorded In the last 12 months, was t here a time when you were not able to pay the mortgage or rent on time? No 01/19/2025 Number of Times Moved in the Last Year Not on fi le 01/19/2025 At any time in the past 12 m [facility], were you homeless or living in a detention (including now)? No 01/19/2025 Utilities Answer Date Recorded In the past 12 months, has t he electric, gas, oil, or water company threatened to shut off services in your home? No 01/12/2025 Interpersonal Safety Answer Date Record ed How often does anyone, cheryl chaney family and friends, physically hurt you? Never 01/12/2025 How often does anyone, cheryl chaney family and friends, insult or talk down to you? Never 01/12/2025 How often does anyone, cheryl chaney family and friends, threaten you with harm? Never 01/12/2025 How often does anyone, cheryl chaney family and friends, scream or curse at you? Never 01/12/2025 Housing Stability Answer Date Recorded What is your living situation today? I have a [facility] place to live 01/12/[address] you li ve. Do you have problems with any of the following? None of the above 01/12/2025 Food Insecurity Answer Date Recorded Within the past 12 months, y ou worried that your food would run out before you got money to buy more. Never true 01/12/2025 Within the past 12 months, t he food you bought just didn't last and you didn't have money to get more. Never true 01/12/2025 Transportation Needs Answer Date Record ed In the past 12 months, has l ack of reliable transportation kept you from medical appointments, meetings, work or from getting things needed for daily living? No 01/12/2025 Financial Resource Strain Answer Date R ecorded How hard is it for you to pa y for the very basics like food, housing, medical care, and heating? Would you say it is: Not hard at all 01/12/2025 Employment Answer Date Recorded Do you want help finding or keeping work or a job? I do not need or want help 01/12/2025 Family and Community Support Answer Jose e Recorded If for any reason you need h elp with day-to-day activities such as bathing, preparing meals, shopping, managing finances, etc., do you get the help you need? I need a lot more help 01/12/2025 Feeling Lonely or Isolated 0 01/12 Educational Attainment Answer Date Jourdan rded Do you speak a language other than [place] at [facility]? No 01/12/2025 Do you want help with school or training? For example, starting or completing job training or getting a high school diploma, GED or equivalent. No 01/12/2025 Physical Activity Answer Date Recorded Number of minutes of exercise per week 0 01/12/2025 Self Management Answer Date Recorded Because of a physical, menta l, or emotional condition, do you have serious difficulty concentrating, remembering, or making decisions? (5 years or older) Yes 01/12/2025 Because of a physical, menta l, or emotional condition, do you have difficulty doing errands alone such as visiting a doctor's office or shopping? (15 years or older) Yes 01/12/2025 Substance Use Answer Date Recorded How many times in the past y ear have you used prescription drugs for non-medical reasons? Never 01/12/2025 How many times in the past year have you used [place] legal drugs? Never 01/12/2025 Mental Health Answer Date Recorded Calculation of above two rows 0 Comments Unknown Sex and Gender Information Value Date Recorded Sex Assigned at Not on file Legal Sex Female 3:48 PM CDT Gender Identity Not on file Sexual Orientation Not on file documented as of this encounter Last Filed Vital Signs Vital Sign Reading Time Taken Comments Blood Pressure 145/60 01/23/2025 12:20 PM EDT Pulse 80 01/23/2025 12:20 PM EDT Temperature 36.8 C (98.2 F) 01/23/2025 12:20 PM EDT Respiratory Rate 18 01/22/2025 11:10 PM EDT Oxygen Saturation 99% 01/23/2025 12:20 PM EDT Inhaled Oxygen Concentration 40% 01/19/2025 1 0:41 PM EDT Weight 48.1 kg (106 lb 0.7 oz) 01/12/2025 2:05 A M EDT Height 152.4 cm (5') 01/12/2025 2:05 AM EDT Body Mass Index 20.71 01/12/2025 2:05 AM EDT documented in this encounter Medications at Time of Discharge amLODIPine (NORVASC) 5 MG tablet Take 1 tablet (5 mg total) by mouth daily. aspirin 81 MG chewable tablet Take 1 tablet (81 mg total) by mouth daily for 30 days. 01/24/2025 atorvastatin (LIPITOR) 80 MG tablet Take 1 tablet (80 mg total) by mouth nightly. donepeziL (ARICEPT) 5 MG tablet Take 1 tablet (5 mg total) by mouth nightly. escitalopram (LEXAPRO) 10 MG tablet Take 1 tablet (10 mg total) by mouth daily. fluticasone-umecl idin-vilanter (Trelegy Ellipta) 100-62.5-25 mcg dsdv Inhale 1 puff by mouth daily. furosemide (LASIX) 20 MG tablet Take 1 tablet (20 mg total) by mouth daily. gabapentin (NEURONTIN) 100 MG capsule Take 1 capsule (100 mg total) by mouth 2 (two) times daily. ipratropium-albut Petty (DUO-NEB) 0.5 mg-3 mg(2.5 mg base)/3 mL nebulizer solution Inhale 3 mLs by nebulization 4 (four) times daily. isosorbide mononitrate (IMDUR) 30 MG 24 hr tablet Take 1 tablet (30 mg total) by mouth every morning before breakfast. loratadine (CLARITIN) 10 mg tablet Take 1 tablet (10 mg total) by mouth daily as needed for allergies. 01/23/2025 LORazepam (ATIVAN) 0.5 MG tablet Take 1 tablet (0.5 mg total) by mouth nightly. Max Daily Amount: 0.5 mg memantine (NAMENDA) 10 MG tablet Take 1 tablet (10 mg total) by mouth 2 (two) times daily. metFORMIN (GLUCOPHAGE) 1000 MG tablet Take 1 tablet (1,000 mg total) by mouth 2 (two) times daily with breakfast and dinner. metoprolol succinate (TOPROL-XL) 100 MG 24 hr tablet Take 1 tablet (100 mg total) by mouth daily. fluconazole (DIFLUCAN) 40 mg/mL suspension Take 2.5 mLs (100 mg total) by mouth daily for 7 days. 17.5 mL 01/24/2025 5 documented as of this encounter Progress Notes * Chanel Cobb MD - 01/23/2025 2:58 PM EDT Subjective History of Present Illness: Margarita Stone is a 74 y.o. female with medical history of Chronic Respiratory Failure on 2L NC at baseline, COPD, CVA with slight residual on word finding, question of Dementia?, HTN/HLD and DM. 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 Near complete bronchial obstruction in the left mainstem, upper/lower segmental and subsegmental bronchi due to significant amount of debris with mediastinal and left axillary adenopathy. WBC 17.9, Cr 1.03. Patient was admitted on 01/12 and was maintained on IV antibiotics with IV doxycycline and Zosyn. Patient has been maintained on IV Lasix Echo on 01/13 was unremarkable Patient had a bronchoscopy on 01/14 showed very thick mucous plugs especially on the left lower lobe that was cleaned and removed, some mucous plugs in the right lower lobe that was cleaned and removed. Base creatinine 1.03 and today 2.23 Patient is seen and evaluated Corpak is in place Patient's daughter is at the bedside Review of Systems HENT: Negative. Respiratory: Negative. Cardiovascular: Negative. Gastrointestinal: Negative. Neurological: Positive for weakness. Objective Last Recorded Vitals Blood pressure (!) 145/60, pulse 80, temperature 98.2 ??F (36.8 ??C), resp. rate 18, height 1.524 m(5'), weight 48.1 kg (106 lb 0.7 oz), SpO2 99%. Physical Exam Constitutional: Comments: Intubated HENT: Head: Normocephalic and atraumatic. Cardiovascular: Rate and Rhythm: Normal rate and regular rhythm. Heart sounds: Normal heart sounds. Abdominal: General: Abdomen is flat. Palpations: Abdomen is soft. Musculoskeletal: Cervical back: Normal range of motion and neck supple. Skin: General: Skin is warm and dry. Neurological: Mental Status: She is alert and oriented to person, place, and time. Labs: No results found for this visit on 01/12/25 (from the past 24 hours). XR chest AP portable Narrative: PORTABLE CHEST 01/23/2025 5:08 AM HISTORY: Aspiration pneumonia. COMPARISON: 1 day prior. FINDINGS: The heart size is within normal limits. The mediastinum is unremarkable. There is branching high density in the lung bases consistent with aspiration of barium. There is dense left lower lung consolidation. There is no pneumothorax . Corpak terminates below the diaphragm. Impression: 1. Branching high density in the lung bases is consistent with aspiration of barium. 2. Dense left lower lung consolidation. Images reviewed, interpreted, and dictated by Dr. Juan Bonilla. Transcribed by Callie Garnica PA-C. Assessment 1. Stage II acute kidney injury likely multifactorial ischemic and toxic ATN secondary to underlying infection, contrast exposure, IV diuresis etc. cannot rule out associated AIN 2. Anemia likely multifactorial 3. Hypertension 4. Left lung pneumonia 5. Acute metabolic encephalopathy/history of CVA 6. Acute on chronic hypoxic respiratory failure 7. COPD exacerbation/history of recurrent aspiration pneumonia Plan - Base kidney function was normal at presentation,improved -Avoid nephrotoxins -Bladder scan as needed -Keep MAP above 65 and hemoglobin above 7 -Echocardiogram was unremarkable -Agree with current treatment -Thanks for consultation [facility] [address] [place], [place], [address] Phone #[phone] Fax #[phone] High complex case ET ATTENDANT * Lucho Carmona RN - 01/23/2025 11:23 AM EDT 01/23/25 1122 Final Discharge Plan PCP referral provided? No Community Referral Discussed with Patient? No Patient appealing discharge? No Does the patient have the ability to fill and receive their discharge medications? Yes Patient returning to prior living situation? Yes Support Systems Family members Discharge Disposition Home Agency Type Other Other Name and Number [facility] Transportation Provider Dtrs Jenn Scott or Hina Date of supervisor quilting 01/23/25 Care Coordination Final Discharge Plan Final Discharge Plan PCP referral provided? (P) No Community Referral Discussed with patient: (P) No Patient Appealing Discharge: (P) No Does the patient have ability to fill and recive their discharge medications? (P) Yes Patient returning to prior living situation: (P) Yes Support Systems: (P) Family members Discharge Disposition: (P) Home Services Arranged for Discharge: Contact information for follow-up Roe Gleason MD Specialty: Adolescent Medicine Relationship: PCP - General [address] [place] [address] [facility] [address] Next Steps: Go to Instructions: As needed Transporation Provider: (P) Dtrs Jenn Scott or Hina Transporation Contact Name: Transportation Provider Phone: Date of supervisor quilting: (P) 01/23/25 Time of supervisor quilting: CM spoke with pt, dtr Sonia at bedside, pt agreeable for dtr to be present. Pt states returning home today, does not plan to go to [facility]. Pt aware of Comfort Care Measures and family is also aware. Dtr states already contacted [facility] and they are agreeable to care for pt upon discharge. Dtr states Jenn Scott or Hina will be providing transport for pt via pvt vehicle. CM will sign off as all of pt's CM needs have been met. H&P, Med List and Pulmonology notes faxed to [phone] per June facility request. 01/23/25 MBS: Failed. 01/22/25 DCP: [facility]. - June. [phone] TRANSPORT: via Family.(Jenn Scott or Hina) Lucho Carmona RN * Anel Beverly PTA - 01/22/2025 3:24 PM EDT Images from the original note were not included. Inpatient Physical Therapy Treatment Patient Name: Margarita Stone Date of : 1950 Date of Treatment: 01/22/25 Start Time 1346 Stop Time 1409 Session Duration 23 minutes General Visit Type: Treatment Approved By: Nurse Hobbs Patient Disposition Upon Entry: Supine in bed, Call Light/Pull Cord in reach, All needs met and within reach, HOB >30 degrees, Visitor/Family present Patient Verified By: Name and Date of Assisted by: Physical therapist administrative sales assistant Precautions Weight-Bearing Status: Full Weight Bearing (FWB) Precautions: Fall risk Isolation Precautions: Standard Lines, tubes, drains, airway: nasal cannula , nasogastric feeding tube, peripheral IV, telemetry Subjective Subjective: Patient agreeable to physical therapy treatment. Pain No - Patient not reporting pain at this time Cognition Overall cognitive status: Patient is awake and alert, attending to directions appropriately, demonstrating good problem solving skills, and aware of any deficits or impairments, if present. Objective Vitals Pre-intervention vitals Heart rate: 92 beats per minute Blood pressure: 145/69 mmHg SpO2: 94% O2: 3 (L/min) nasal cannula Functional Mobility Bed Mobility: Rolling Right: maximal assistance Supine to Sit: total assistance / dependent Transfers Unable to assess due to deconditioning, fatigue, weakness, and impaired balance . Gait Unable to assess due to deconditioning, fatigue, weakness, and impaired balance Stair Management Unable to assess due to deconditioning, fatigue, weakness, and impaired balance . Wheelchair Mobility Unable to assess due to deconditioning, fatigue, weakness, and impaired balance . AM-PAC Basic Mobility Inpatient Short Form How much difficulty does the patient currently have: Turning over in bed (including adjusting bedclothes, sheets, and blankets)? (1) Total/Unable (not able to do the activity or can only perform the activity using assistive devices or requires assistance from another person, including supervision or cueing for safety) Sitting down on and standing up from a chair with arms (e.g., wheelchair, bedside commode, etc.)? (1) Total/Unable (not able to do the activity or can only perform the activity using assistive devices or requires assistance from another person, including supervision or cueing for safety) Moving from lying on back to sitting on side of bed? (1) Total/Unable (not able to do the activity or can only perform the activity using assistive devices or requires assistance from another person,including supervision or cueing for safety) How much help from another person does the patient currently need: Moving to and from a bed to a chair (including a wheelchair)? (1) Total/Unable (Total assist/dependent) Need to walk in hospital room? (1) Total/Unable (Total assist/dependent) Climbing 3-5 steps with a railing? (1) Total/Unable (Total assist/dependent) Score Raw score=6 t-Scale score=23.55 Standard error=4.57 CMS 0-100%=100.00% MDC=4.72 A raw score of >= 16 is significantly associated with increased odds of discharge to home in addition to consideration made for the patient's cognition and social determinants of health. Balance Static/dynamic sitting and static/dynamic standing balance grades Balance Grade Sitting Static Poor - patient requires handhold support and moderate to maximal assistance to maintain position Sitting Dynamic Poor - patient unable to accept challenge or move without loss of balance Standing Static Unable to assess Standing Dynamic Unable to assess Activity Tolerance Patient limited with activity/intervention due to fatigue, deconditioning, and weakness Treatment Patient sat EOB for ~2 minutes with max A to correct posterior and R lean. Patient was cued for placing B hands on knees to assist with balance before requesting to return to supine. Patient left in supine with all needs within reach. Assessment Pt was able to move from supine to sitting EOB with maximal assist of 1 for safety. Pt demonstratedsignificant sitting balance deficits requiring maximal assistance to maintain position. Pt would continue to benefit from therapy to improve endurance, mobility and balance deficits. Plan Treatment plan: Continue per plan of care. PT Frequency/Duration: 3x/week for 14 days Recommendations Discharge recommendations: Patient would benefit from 3 hours of intensive multidisciplinary therapy per day to maximize functional outcomes and address functional limitations to return to highest level of functioning. DME recommendations: Patient would benefit from the use of a Rolling walker upon discharge. Per thepatient, the patient does not have access to the recommended DME/adaptive equipment. Goals Rolling: By the target date, patient will perform rolling to the left and right with moderate assistance, utilizing bed railing, to improve independence with bed mobility and decrease caregiver burden. Ikejcn-lh-rwi: By the target date, patient will perform jvrexr-vl-[id number] with maximal assistance, utilizing caregiver assistance, to improve independence with bed mobility. Transfer: By the target date, patient will perform squat-pivot transfer to a bedside commode, recliner chair, or wheelchair with maximal assistance x 2 and utilizing holding onto caregivers hands or arms, demonstrating ability to safely transfer while in hospital setting to improve independence with functional mobility, decrease caregiver burden, and decrease risk of falling. Other Goal #1: Daughter will perform teach back of HEP for LE and cervical. Target Date: 02/04/2025 Progress towards goals: progressing Education Patient/Visitors educated on safety, role of physical therapy, and plan of care and following, theywere able to verbalize understanding. No further questions or concerns stated. Interdisciplinary Communication Following treatment, therapist communicated with nursing by completing communication whiteboard in room. Patient Disposition Upon Leaving Supine in bed, Call Light/Pull Cord in reach, All needs met and within reach, HOB >30 degrees, Visitor/Family present, Yellow non-slip socks donned If this patient discharges prior to next therapy session, this note serves as the patient's discharge summary. Electronically signed by Anel Beverly PTA - 01/22/25 - 3:25 PM EDT Cosigned by Milton Jones PT at 01/23/2025 10:42 AM EDT Associated attestation - Milton Jones PT - 01/23/2025 9:42 AM CDT I, Milton Jones PT, DPT, reviewed the notes, assessments, and/or procedures performed by Anel Beverly PTA, I concur with their documentation of Margarita Stone. Electronically signed by Milton Jones PT, DPT - 01/23/25 - 10:42 AM EST * Chanel Cobb MD - 01/22/2025 2:58 PM EDT Subjective History of Present Illness: Margarita Stone is a 74 y.o. female with medical history of Chronic Respiratory Failure on 2L NC at baseline, COPD, CVA with slight residual on word finding, question of Dementia?, HTN/HLD and DM. 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 Near complete bronchial obstruction in the left mainstem, upper/lower segmental and subsegmental bronchi due to significant amount of debris with mediastinal and left axillary adenopathy. WBC 17.9, Cr 1.03. Patient was admitted on 01/12 and was maintained on IV antibiotics with IV doxycycline and Zosyn. Patient has been maintained on IV Lasix Echo on 01/13 was unremarkable Patient had a bronchoscopy on 01/14 showed very thick mucous plugs especially on the left lower lobe that was cleaned and removed, some mucous plugs in the right lower lobe that was cleaned and removed. Base creatinine 1.03 and today 2.23 Patient is seen and evaluated Corpak is in place Patient's daughter is at the bedside Review of Systems HENT: Negative. Respiratory: Negative. Cardiovascular: Negative. Gastrointestinal: Negative. Neurological: Positive for weakness. Objective Last Recorded Vitals Blood pressure (!) 145/60, pulse 80, temperature 98.2 ??F (36.8 ??C), resp. rate 18, height 1.524 m(5'), weight 48.1 kg (106 lb 0.7 oz), SpO2 99%. Physical Exam Constitutional: Comments: Intubated HENT: Head: Normocephalic and atraumatic. Cardiovascular: Rate and Rhythm: Normal rate and regular rhythm. Heart sounds: Normal heart sounds. Abdominal: General: Abdomen is flat. Palpations: Abdomen is soft. Musculoskeletal: Cervical back: Normal range of motion and neck supple. Skin: General: Skin is warm and dry. Neurological: Mental Status: She is alert and oriented to person, place, and time. Labs: No results found for this visit on 01/12/25 (from the past 24 hours). XR chest AP portable Narrative: PORTABLE CHEST 01/23/2025 5:08 AM HISTORY: Aspiration pneumonia. COMPARISON: 1 day prior. FINDINGS: The heart size is within normal limits. The mediastinum is unremarkable. There is branching high density in the lung bases consistent with aspiration of barium. There is dense left lower lung consolidation. There is no pneumothorax . Corpak terminates below the diaphragm. Impression: 1. Branching high density in the lung bases is consistent with aspiration of barium. 2. Dense left lower lung consolidation. Images reviewed, interpreted, and dictated by Dr. Juan Bonilla. Transcribed by Callie Garnica PA-C. Assessment 1. Stage II acute kidney injury likely multifactorial ischemic and toxic ATN secondary to underlying infection, contrast exposure, IV diuresis etc. cannot rule out associated AIN 2. Anemia likely multifactorial 3. Hypertension 4. Left lung pneumonia 5. Acute metabolic encephalopathy/history of CVA 6. Acute on chronic hypoxic respiratory failure 7. COPD exacerbation/history of recurrent aspiration pneumonia Plan - Base kidney function was normal at presentation,improved -Avoid nephrotoxins -Strict intake and output -Bladder scan as needed -Keep MAP above 65 and hemoglobin above 7 -Echocardiogram was unremarkable -Renally dose medications and antibiotics -Monitor kidney function electrolytes closely -No need for BACK PAD INSPECTOR at present time -Loop diuretics as needed -Thanks for consultation [facility] [address] [place], [place], [address] Phone #[phone] Fax #[phone] High complex case ET ATTENDANT * Мария Bella APRN - 01/22/2025 11:45 AM EDT Images from the original note were not included. PULMONARY AND CRITICAL CARE Progress Note Date of Service: 01/22/2025 Reason for Consult: For critical care management. Referring: MD Thony HPI: This is a 74 y.o. year old female with past medical history of Chronic Respiratory Failure on 2L NCat baseline, COPD, CVA with slight residual on word finding, question of Dementia?, HTN/HLD and DM.She presented to [facility] due to increasing shortness of breath and cough for 1-2 days.Family reports she has had some recurrent pneumonia and issues with aspiration recently. CT chest from outside hospital with near complete pneumonic infiltration of left lower lobe, mild patchy areas of pneumonia in the right lung. Near complete bronchial obstruction in the left mainstem, upper/lower se gmental and subsegmental bronchi due to significant amount of debris with mediastinal and left axillary adenopathy. WBC 17.9, Cr 1.03. Pulmonary has been consulted for ICU management and need for bronchoscopy. 01/13 I have seen and examined the patient this morning, daughter at bedside I have discussed with her about the patient condition answered all her questions and concerns, discussed with her that thepatient has left lower lobe atelectasis could be from mucous plug or aspiration, will check CT chest for evaluation. She said if the patient absolutely need bronchoscopy she is okay with intubating the patient for procedure otherwise the patient is DNR/DNI. Depending on the result of the CT scan wewill consider to do bronchoscopy. Patient was started on chest physiotherapy, flutter valve, incentive spirometry. Echo on 01/13 was done pending report. Patient on Optiflow 55 L and 50%, will titrate down as tolerated, WBC 17.1, sodium 148, fluid balance -750 mL, on doxycycline and Zosyn. 01/14 I have seen and examined the patient this morning, patient remains critically ill, intubated on mechanical ventilation FiO2 60%, was titrated this morning to 50%, will continue to titrate down as tolerated, CT scan of the chest on 01/13 showed left lower lobe consolidation suggestive of pneumonia, with obstruction of left main bronchus and left lower lobe bronchus, will do bronchoscopy today, chest x-ray on 01/14 shows bilateral interstitial infiltrates, left lower lobe atelectasis with obstruction of left main bronchus and left lower lobe bronchus, currently patient off jorge a-, blood pressure is borderline low, ABG was reviewed show metabolic alkalosis, sodium 146, creatinine 1.56, potassium 2.9, WBC 15.6, fluid balance -350 mL, on doxycycline and Zosyn. 01/15 I have seen and examined the patient this morning, patient was sedated this morning, will stop sedation this morning, patient was tried on pressure support this morning for SBT 3 times and patient become apneic, will try again afternoon, chest x-ray on 01/15 showed persistent improving left lung base pneumonia, patient had a bronchoscopy on 01/14 showed very thick mucous plugs especially onthe left lower lobe that was cleaned and removed, some mucous plugs in the right lower lobe that was cleaned and removed, BAL was sent from left lower lobe for cultures, fluid balance +102 mL, on doxycycline and Zosyn. 01/16 I have seen and examined the patient this morning, patient has been off sedation since yesterday, still very weak, when patient on pressure support take low tidal volume most of the time less than 250, patient was encouraged to take deep breaths, if the patient continue to fail SBT we will discuss with the family the options between tracheostomy and terminal extubation to DNR/DNI and comfort care, chest x-ray on 01/16 interpreted independently showed low lung volumes, bilateral interstitial infiltrate, WBC 11.2, hemoglobin 8.2, creatinine 1.95, fluid balance -500 cc, on doxycycline and Zosyn. Hypokalemia and hypomagnesemia was replaced this morning. 01/17 I have seen and examined the patient this morning, chest x-ray on 01/17 showed low lung volumes, bilateral interstitial infiltrate, blood pressure 157/67, WBC 11.8, hemoglobin 7.6, creatinine 1.43, fluid balance -660 mL, on doxycycline and Zosyn. Patient has failed SBT yesterday, will try SBTagain today, she still have low lung volumes. Her daughter at bedside I have discussed with her about patient condition and answered all her questions and concerns expressed understanding. 2 Daughters at bedside, I have discussed with them about the patient condition and answered all their questions and concerns, they expressed their understanding, I have discussed with him that patient tolerated a little bit better today pressure support, still have low tidal volume but better than y and the day before, still high risk for reintubation after extubation, discussed with him that we can try to extubate to BiPAP if she did not do well we can intubate again, they said they want to give her 1 more day to see if she will get any better, we will keep her on the ventilator for today we will try SBT again tomorrow. 01/18 I have seen and examined the patient this morning, her daughters including the medical power of back pad inspector was at bedside I have discussed with them about the patient condition and answered all their questions and concerns they expressed understanding, patient today is doing a little bit better, has better tidal volumes, discussed with the daughters at bedside that we can extubate the patientto BiPAP and if she did well will continue full., If she does not well we can reintubate they said that the patient does not want to be reintubated and they do not want her to be reintubated, if she did worse they want to start comfort care. Chest x-ray today on 01/18 showed left basilar atelectasis, bronchoscopy was done before extubation, there was some thick secretions in the ET tube that was cleaned and removed, all lobes was opened there was no mucous plugs. Patient was extubated to BiPAP will keep on BiPAP for now. WBC 14.3, hemoglobin 9.3. Fluid balance +340 mL. 01/19 I have seen and examined the patient this morning, hospitalist at bedside I have discussed with him about the patient condition and plan, her daughter at bedside I have discussed with her aboutthe patient condition and plan, patient was extubated on 01/18, currently on BiPAP, will repeat ABGand if no hypercapnia will switch to nasal cannula, to continue to use BiPAP 4 hours on and 4 hoursoff and during the night, to continue chest physiotherapy, to continue Mucomyst for total of 3 days, chest x-ray on 01/19 interpreted independently showed left lower lobe medial lung base opacity suggestive of pneumonia, WBC 17.8, fluid balance -635 mL. On doxycycline, Zosyn. 01/22: The patient is seen this morning in room 321. The patient is sleeping on entrance. She is on3 L of oxygen. Her daughter Sonia is at bedside. Faby RN at bedside. Upon entrance, daughter andnursing staff are discussing tube feeding. Daughter at bedside reports that they do not want to continue tube feeding and they would like to give her comfort foods and fluids. She is planning to contact other family members for further discussion regarding this before they make a final decision. Discussed with the daughter present that comfort foods and fluids will cause recurrent aspiration and could lead to an acute event of choking and inability to protect her airway. Patient is currently a DNR no vent. I discussed this with the daughter. The daughter reports I just want her to be comfortable and be able to take her home. The daughter reports that her and her other siblings are discussing possible transition to comfort care. I will defer this to the primary team. Patient arouses easily to name. She states her name, she states where she is, she states the year. She follows simple commands. When asked if she would like to keep the tube in her nose she says no. Per family and patient request, tube feeding is not being started at this time. Defer to primary team. PAST MEDICAL HISTORY: No past medical history on file. PAST SURGICAL HISTORY: No past surgical history on file. No past surgical history on file. Allergies: No Known Allergies SOCIAL HISTORY: Social History Tobacco Use Smoking status: Never Smokeless tobacco: Never Vaping Use Vaping status: Never Used Substance Use Topics Drug use: Never FAMILY HISTORY: family history is not on file. Review of Systems Constitutional: Positive for malaise/fatigue. Respiratory: Negative for shortness of breath. Cardiovascular: Negative for chest pain. Gastrointestinal: Negative for abdominal pain, nausea and vomiting. Musculoskeletal: Positive for joint pain. Neurological: Negative for dizziness and headaches. Vital Signs Temp: [98.2 ??F (36.8 ??C)-99 ??F (37.2 ??C)] 98.6 ??F (37 ??C) Pulse: [81-97] 97 Resp: [14-18] 16 BP: (131-158)/(57-73) 147/59 Current: Temp: 98.6 ??F (37 ??C) Pulse: 97 Resp: 16 BP: (!) 147/59 SpO2: 97 % 24 Hour: BP Min: 131/57 Max: 158/73 Temp Min: 98.2 ??F (36.8 ??C) Max: 99 ??F (37.2 ??C) Pulse Min: 81 Max: 97 Resp Min: 14 Max: 18 SpO2 Min: 97 % Max: 100 % Intake/Output: No intake/output data recorded. Physical Exam Vitals reviewed. Constitutional: General: She is sleeping. Appearance: She is ill-appearing. She is not diaphoretic. Comments: Sleeping on entrance. Arouses easily. Daughter at bedside. Patient is generally weak and ill-appearing. She arouses easily as mentioned. She states her name, where she is and the year. Her voice is weak. She is on 3 L of oxygen. HENT: Head: Normocephalic and atraumatic. Mouth/Throat: Mouth: Mucous membranes are dry. Eyes: Pupils: Pupils are equal, round, and reactive to light. Cardiovascular: Rate and Rhythm: Normal rate. Pulmonary: Effort: No accessory muscle usage, prolonged expiration, respiratory distress or retractions. Breath sounds: Examination of the left-middle field reveals decreased breath sounds. Examination ofthe right-lower field reveals decreased breath sounds. Examination of the left-lower field reveals decreased breath sounds. Decreased breath sounds and rhonchi present. Comments: 3 L of oxygen Diminished breath sounds left greater than right Some scattered rhonchi Abdominal: General: Bowel sounds are decreased. Palpations: Abdomen is soft. Musculoskeletal: General: No deformity. Right lower leg: No edema. Left lower leg: No edema. Skin: General: Skin is warm. Capillary Refill: Capillary refill takes less than 2 seconds. Coloration: Skin is pale. Neurological: Mental Status: She is easily aroused. Comments: Weak and frail appearing. Arouses easily. Answer simple questions. oriented x 3. Psychiatric: Comments: Arouses easily. States her name, the year and where she is. Patient is generally weak andfrail appearing. Follows simple commands. Intake/Output: No intake/output data recorded. LABS Results for orders placed or performed during the hospital encounter of 01/12/25 (from the past 24 hours) Glucose, Nova Meter Status: Abnormal Collection Time: 01/21/25 12:03 PM Result Value Ref Range POC-GLUCOSE 217 (H) 70 - 110 mg/dL Wire Spooler [id number] Glucose, Nova Meter Status: Abnormal Collection Time: 01/21/25 6:12 PM Result Value Ref Range POC-GLUCOSE 262 (H) 70 - 110 mg/dL Wire Spooler [id number] Glucose, Nova Meter Status: Abnormal Collection Time: 01/21/25 11:58 PM Result Value Ref Range POC-GLUCOSE 171 (H) 70 - 110 mg/dL Wire Spooler [id number] Glucose, Nova Meter Status: Abnormal Collection Time: 01/22/25 5:27 AM Result Value Ref Range POC-GLUCOSE 168 (H) 70 - 110 mg/dL Wire Spooler [id number] Basic Metabolic Panel Status: Abnormal Collection Time: 01/22/25 8:56 AM Result Value Ref Range Sodium 139 136 - 145 meq/L Potassium 3.8 3.4 - 5.1 meq/L CO2 23 22 - 29 meq/L Chloride 108 98 - 112 meq/L Glucose 192 (H) 82 - 115 mg/dL BUN 29.0 (H) 9.8 - 20.1 mg/dL Creatinine 0.96 0.50 - 1.20 mg/dL BUN/Creatinine 30 (H) 8 - 20 Calcium 8.7 8.4 - 10.2 mg/dL Anion Gap 12 4 - 12 eGFR (mL/min/1.73m2) 62 >=60 mL/min/1.73m2 Osmolality Calc 288.6 mOsm/kg CBC with automated diff Status: Abnormal Collection Time: 01/22/25 8:56 AM Result Value Ref Range WBC 11.3 (H) 4.0 - 10.0 K/??L RBC 2.80 (L) 3.93 - 5.22 M/??L Hemoglobin 8.2 (L) 11.2 - 15.7 GM/DL Hematocrit 25.4 (L) 34.1 - 44.9 % MCV 91 79 - 95 fL MCH 29.3 25.6 - 32.2 pg MCHC 32.3 32.2 - 35.5 GM/DL RDW 15.5 (H) 11.7 - 14.4 % Platelets 255 140 - 375 K/CU MM MPV 11.1 9.4 - 12.3 fL % Neutros 73 (H) 34 - 71 % % Lymphs 18 (L) 19 - 52 % % Monos 7 5 - 13 % % Eos 0.3 (L) 1.0 - 6.0 % % Baso 0 0 - 1 % NRBC Absolute <0.01 0 - 0.012 K/ul # Neutros 8.22 (H) 1.56 - 6.13 K/??L # Lymphs 2.02 1.18 - 3.74 K/??L # Monos 0.84 0.24 - 0.86 K/??L # Eos 0.03 (L) 0.04 - 0.36 K/??L # Baso <0.03 0.01 - 0.08 K/ L % Imm Grans 1.30 (H) 0.01 - 0.43 % # IG 0.15 (H) 0.00 - 0.03 K/uL Magnesium Status: Normal Collection Time: 01/22/25 8:56 AM Result Value Ref Range Magnesium 1.6 1.6 - 2.6 mg/dL Phosphorus Status: Normal Collection Time: 01/22/25 8:56 AM Result Value Ref Range Phosphorus 3.1 2.5 - 4.5 mg/dL No results found for: PT , INR , PTT CHEM7: Sodium Date Value Ref Range Status 01/22/2025 139 136 - 145 meq/L Final Potassium Date Value Ref Range Status 01/22/2025 3.8 3.4 - 5.1 meq/L Final Chloride Date Value Ref Range Status 01/22/2025 108 98 - 112 meq/L Final CO2 Date Value Ref Range Status 01/22/2025 23 22 - 29 meq/L Final BUN Date Value Ref Range Status 01/22/2025 29.0 (H) 9.8 - 20.1 mg/dL Final Creatinine Date Value Ref Range Status 01/22/2025 0.96 0.50 - 1.20 mg/dL Final eGFR (mL/min/1.73m2) Date Value Ref Range Status 01/22/2025 62 >=60 mL/min/1.73m2 Final Comment: ESTIMATED GFR IS NOT ACCURATE CREATININE CLEARANCE IN PREDICTING GLOMERULAR FILTRATION RATE. ESTIMATED GFR IS NOT APPLICABLE FOR DIALYSIS PATIENTS. Calcium Date Value Ref Range Status 01/22/2025 8.7 8.4 - 10.2 mg/dL Final Lab Results Component Value Date AST 18 01/14/2025 ALT 10 01/14/2025 No results for input(s): POCGLU in the last 72 hours. No results for input(s): POCPH , POCPCO2 , POCPO2 , POCABG in the last 72 hours. Invalid input(s): POCSAT , POCART , ARTPOC Microbiology: Microbiology Results (last 7 days) Procedure Component Value Units Date/Time Culture Fungus W/AALIYAH Or Mayte Ink [[id number]] (Abnormal) Collected: 01/14/251132 Order Status: Completed Specimen: BAL from Lung, Left Lower Lobe Updated: 01/22/25 1048 Result Light Growth Radha dubliniensis AALIYAH Prep No fungal elements seen AFB Culture And Stain [[id number]] Collected: 01/14/251132 Order Status: Completed Specimen: BAL from Lung, Left Lower Lobe Updated: 01/21/25 1200 Result No Acid Fast Bacilli isolated at 1 week. AFB Smear No acid fast bacilli seen Pneumonia PCR Panel w/Respiratory Culture [[id number]] Collected: 01/14/251132 Order Status: Completed Specimen: BAL from Lung, Left Lower Lobe Updated: 01/16/25 0904 Narrative: The following orders were created for panel order Pneumonia PCR Panel w/Respiratory Culture. Procedure Abnormality Status --------- ------ Pneumonia PCR Panel[[id number]] Normal Edited Result - FINAL Respiratory Culture[[id number]] Final result Please view results for these tests on the individual orders. Respiratory Culture [[id number]] Collected: 01/14/251132 Order Status: Completed Specimen: BAL from Lung, Left Lower Lobe Updated: 01/16/25 0904 Result No growth Gram Stain Result Rare WBCs No organisms seen Narrative: The pneumonia PCR panel may detect organisms that do not grow on the culture. Correlate PCR, culture, and patient condition. Rule out and consider respiratory tract colonization,particularly in tracheostomy patients. Radiology Results (last day) Procedure Component Value Units Date/Time FL MODIFIED BARIUM SWALLOW - In process [[id number]] Resulted: 01/22/25 0948 Order Status: Sent Updated: 01/22/25 1055 This result has not been signed. Information might be incomplete. XR chest AP portable [[id number]] Collected: 01/22/25 08 Order Status: Completed Updated: 01/22/25918 Narrative: PORTABLE CHEST HISTORY: Respiratory failure. COMPARISON: PCXR from the previous day. FINDINGS: The heart is stable in size. The patient is status post median sternotomy. There is left basilar collapse/consolidation with a small left effusion, stable from a prior study. There is no pneumothorax. Corpak feeding tube extends below the diaphragm. Impression: Stable left basilar collapse/consolidation and small left effusion. Images reviewed, interpreted, and dictated by Dr. Juan Bonilla. Transcribed by Xavi Arroyo PA-C. XR chest AP portable [[id number]] Collected: 01/21/25 0910 Order Status: Completed Updated: 01/21/25 1206 Narrative: PORTABLE CHEST 01/21/2025 6:50 AM HISTORY: Acute shortness of breath. COMPARISON: One day prior. FINDINGS: The patient is status post sternotomy for CABG. The heart is proper size. The mediastinum is unremarkable. There is left base atelectasis. There is decreased lung volumes. There is persistent but improved atelectasis or pneumonia. There is no pneumothorax. The osseous structures are unremarkable. The feeding tube courses below the diaphragm. Impression: Persistent but improved atelectasis or pneumonia. Follow-up to complete resolution recommended. Images reviewed, interpreted, and dictated by Dr. Juan Bonilla. Transcribed by Rukhsana Vidal PA-C. No valid procedures specified. ASSESSMENT: Pulmonary Acute on Chronic Hypoxemic Respiratory Failure -CT chest from outside hospital with near complete pneumonic infiltration of left lower lobe, mild patchy areas of pneumonia in the right lung. Near complete bronchial obstruction in the left mainstem, upper/lower segmental and subsegmental bronchi due to significant amount of debris with mediastinal and left axillary adenopathy Recurrent pneumonia due to aspiration. COPD with exacerbation Former tobacco abuse Status post bronchoscopy this admission with mucous plugs removed Neurology: Dementia? On namenda and Aricept H/O CVA with some word finding issues Cardiology: Hypertension HLD Infectious disease: Leukocytosis Left lung pneumonia Nephrology: CKD 3a Gastroenterology: Dysphagia. Recurrent aspiration pneumonia GERD Endocrine: DM Hematology: Anemia; Mild PLAN: Oxygen supplementation to maintain saturation greater than 89%. Patient is currently on 3 L of oxygen May use BiPAP for increased work of breathing Pulmicort nebs twice a day DuoNebs every 6 hours Guaifenesin 300 mg every 6 hours Solu-Medrol 40mg daily Family currently discussing comfort care. Will defer this to the primary team. Current antibiotics: Zosyn and doxycycline Hemodynamics: Per primary team GI and DVT prophylaxis: Per primary team Nutrition: Per primary team. Currently has Corpak. Failed speech evaluation. Family currently declining tube feeding. Discussion regarding transitioning to comfort care per family in progress at thistime. Bowel regimen: Per primary team CODE STATUS currently: DNR. No vent. Family currently discussing transition over to comfort care. Will defer this to the primary team. Мария Bella APRN Pulmonary team will sign off. Please reconsult us for any further needs. Thank you for allowing us to participate in this patient's care. Time spent 20 minutes Cosigned by Saeed Ash MD at 01/23/2025 4:36 PM EDT * Obdulia Reyes [facility] [facility] [facility]PA[facility] - 01/22/2025 10:30 AM EDT Images from the original note were not included. [facility] Speech Language Pathology Modified Barium Swallow Re-evaluation Therapy Diagnosis:Disordered pharyngeal swallow Recommendations: NPO with non oral meds and nutrition. Patient Name: Margarita Stone Birthday: 1950 Age: 74 y.o. Today's Date: 01/22/2025 Time: [id number] includes time spent for nursing collaboration, chart and systems review, and clinical reasoning. Mental status: Alert and Follows commands Pain: 0 via Trammell Rice Faces Time out completed prior to study. History Additional History: See initial evaluation Patient Active Problem List Diagnosis Aspiration pneumonia (HCC) Bronchial obstruction No past medical history on file. No past surgical history on file. Speech and Swallowing History: See initial evaluation Current diet: NPO diet Diet tube feeding continuous TF Formula: Glucerna 1.5; Route of Feeding: ND- Tube; TF water flush volume (ml): 30 ml; TF water flush frequency: Other (enter in comments) (every hour) Subjective RN okayed MBS Objective Respiratory Status:nasal cannula Residue(overall score):6 (Al's Bolus Residue Scale) No residue Residue in vallecula Residue in posteriors pharyngeal wall or pyriform sinus Residue in vallecula and posterior wall or pyriform sinus Residue in posterior pharyngeal wall and pyriform sinus Residue in vallecula and posterior wall and pyriform sinus MODIFIED PENETRATION/ASPIRATION SCALE Consistency & Method of Administration 1 2 3 4 5 6 7 8 Thins [] [] [] [] [] [] [] [x] Mildly thick [] [] [] [] [] [] [] [x] Moderately thick [] [] [] [] [] [] [] [x] Pudding [] [] [] [] [] [] [] [x] Description of Penetration/Aspiration Scale: 1. Material does not enter airway. 2. Material enters airway, remains above the vocal folds, and is ejected from the airway. 3. Material enters airway, remains above the vocal folds, and is not ejected from the airway. 4. Material enters airway, contacts the vocal folds, and is ejected from the airway. 5. Material enters airway, contacts the vocal folds, and is not ejected from the airway. 6. Material enters airway, passes below the vocal folds, and is ejected from trachea. 7. Material enters airway, passes below the vocal folds, and is not ejected from the trachea despite effort. 8. Material enters airway, passes below the vocal folds, and no effort is made to eject. (Falguni López, et al. A penetration-aspiration scale. Dysphagia. 1996;11(2):93-8.) Assessment Patient presents with disordered pharyngeal swallow secondary to poor airway protection and bolus efficiency. Slow oral manipulation with pudding. Pharyngeal phase is characterized by reduced base oftongue retraction, impaired LVC, poor pharyngeal stripping wave and decreased hyolaryngeal excursion/elevation. Patient with alpa silent aspiration of thin, mildly, moderately thick and pudding trials. Patient is able to elicit cough when prompt but its weak and not effective in clearing aspiratedmaterial. There is poor bolus efficiency throughout study with pharyngeal residue contributing to further aspiration after the swallow. At this time, patient is not appropriate for PO. Following study, [employer] RE[employer] returned to room for conversation with family, RN present in room. Family understands the risk but would like patient to go comfort care at this time. Dr. Bhakta made aware. [employer] REPAIRER will sign off at this time. Prognosis:Poor Patient Education:Instructed, Verbalized understanding, and Family Recommendations from this evaluation were communicated to: RN/MD Plan This will serve as a discharge statement if patient is discharged before further visits. Electronically signed by ISIDRO MercedesGAS GOLF CART REPAIRER NEIL-[employer] REPAIRER- 01/22/2025 - 11:24 AM EDT [employer] Evaluation Completed . * Krystian Bhakta MD - 01/22/2025 8:59 AM EDT HOSPITALIST PROGRESS NOTE Patient: Margarita Stone Date: 01/22/2025 Subjective Date of Service: 01/22/2025 Patient is seen and evaluated Corpak is in place Patient's daughter is at the bedside Review of Systems Constitutional: No fevers, chills Eye: No blurry vision, no discharge HEENT: No sore throat, no nasal congestion Respiratory: No cough, no shortness of breath Cardiovascular: No Chest pain, no palpitations Gastrointestinal: No nausea, vomiting, diarrhea, constipation Genitourinary: No hematuria, no dysuria Les/Lymph: Negative for bruising tendency, no nosebleeds Endocrine: Negative for excessive thirst, no excessive urination Musculoskeletal: No back pain, no leg pain Integumentary: No rash, no pruritus Neurologic: No focal weakness, no numbness Psychiatric: No anxiety Objective Vitals: Temp: [97.3 ??F (36.3 ??C)-99 ??F (37.2 ??C)] 98.8 ??F (37.1 ??C) Pulse: [81-96] 84 Resp: [14-18] 16 BP: (131-158)/(57-73) 131/57 Intake/Output: No intake or output data in the 24 hours ending 01/22/25 0859 Physical exam: General no acute distress Eye: normal conjunctiva HENT: Normocephalic, atraumatic Neck: no carotid bruits, no JVD Lungs: Clear to auscultation, non-labored respiration Heart: Normal rate, regular rhythm, no murmur Abdomen: Soft, non-tender, non-distended, normal bowel sounds Musculoskeletal: Normal range of motion and strength, no tenderness or swelling Skin: Skin is warm, dry, no rashes or lesions Psychiatric: Cooperative Neurologic: Awake, alert, Labs: Results for orders placed or performed during the hospital encounter of 01/12/25 (from the past 24 hours) Glucose, Nova Meter Status: Abnormal Collection Time: 01/21/25 12:03 PM Result Value Ref Range POC-GLUCOSE 217 (H) 70 - 110 mg/dL Wire Spooler [id number] Glucose, Nova Meter Status: Abnormal Collection Time: 01/21/25 6:12 PM Result Value Ref Range POC-GLUCOSE 262 (H) 70 - 110 mg/dL Wire Spooler [id number] Glucose, Nova Meter Status: Abnormal Collection Time: 01/21/25 11:58 PM Result Value Ref Range POC-GLUCOSE 171 (H) 70 - 110 mg/dL Wire Spooler [id number] Glucose, Nova Meter Status: Abnormal Collection Time: 01/22/25 5:27 AM Result Value Ref Range POC-GLUCOSE 168 (H) 70 - 110 mg/dL Wire Spooler [id number] Radiology: Radiology Results (last 7 days) Procedure Component Value Units Date/Time XR chest AP portable - Preliminary [[id number]] Collected: 01/22/25811 Order Status: Completed Updated: 01/22/25811 This result has not been signed. Information might be incomplete. Narrative: PORTABLE CHEST HISTORY: Respiratory failure. COMPARISON: PCXR from the previous day. FINDINGS: The heart is stable in size. The patient is status post median sternotomy. There is left basilar collapse/consolidation with a small left effusion, stable from a prior study. There is no pneumothorax. Corpak feeding tube extends below the diaphragm. Impression: Stable left basilar collapse/consolidation and small left effusion. Images reviewed, interpreted, and dictated by Dr. Juan Bonilla. Transcribed by Xavi Arroyo PA-C. CO MODIFIED BARIUM SWALLOW [[id number]] Order Status: Sent XR chest AP portable [[id number]] Collected: 01/21/25909 Order Status: Completed Updated: 01/21/25 120 Narrative: PORTABLE CHEST 01/21/2025 6:50 AM HISTORY: Acute shortness of breath. COMPARISON: One day prior. FINDINGS: The patient is status post sternotomy for CABG. The heart is proper size. The mediastinum is unremarkable. There is left base atelectasis. There is decreased lung volumes. There is persistent but improved atelectasis or pneumonia. There is no pneumothorax. The osseous structures are unremarkable. The feeding tube courses below the diaphragm. Impression: Persistent but improved atelectasis or pneumonia. Follow-up to complete resolution recommended. Images reviewed, interpreted, and dictated by Dr. Juan Bonilla. Transcribed by Rukhsana Vidal PA-C. XR chest AP portable [[id number]] Collected: 01/20/25828 Order Status: Completed Updated: 01/20/25832 Narrative: PORTABLE CHEST HISTORY: Shortness of breath. COMPARISON: PCXR from the previous day. FINDINGS: The heart is stable in size. The patient is status post CABG. There is no pneumothorax. There is left basilar airspace disease and a small left effusion. Impression: Small left effusion with left basilar airspace disease likely representing pneumonia. Images reviewed, interpreted, and dictated by Dr. Juan Bonilla. Transcribed by Xavi Arroyo PA-C. XR chest AP portable [[id number]] Collected: 01/19/25921 Order Status: Completed Updated: 01/19/25948 Narrative: PORTABLE CHEST HISTORY: Acute respiratory failure. COMPARISON: One day prior. FINDINGS: The heart is mildly enlarged in size. The mediastinum is unremarkable. There is airspace opacity within the medial left lung base, stable. There are mild chronic changes throughout the lungs. There is no pneumothorax. Status post median sternotomy. The feeding tube lies off the inferior margin of the film. There has been interval extubation. Impression: 1. Stable airspace opacity in the medial left lung base. 2. Interval extubation. Images reviewed, interpreted, and dictated by Dr. Clint Gaspar. Transcribed by Va Cevallos PA-C. XR chest AP portable [[id number]] Collected: 01/18/25 0757 Order Status: Completed Updated: 01/18/25833 Narrative: PORTABLE CHEST HISTORY: Intubation. COMPARISON: PCXR from the previous day. FINDINGS: The heart is stable in size. There are chronic changes in both lungs. There is airspace opacity and atelectasis of the medial left base. There is no pneumothorax. The support devices are in good position. Impression: Medial left basilar opacity. Images reviewed, interpreted, and dictated by Dr. Clint Gaspar. Transcribed by Xavi Arroyo PA-C. XR chest AP portable [[id number]] Collected: 01/17/25805 Order Status: Completed Updated: 01/17/25 0829 Narrative: PORTABLE CHEST 01/17/2025 4:41 AM HISTORY: Acute respiratory failure. COMPARISON: January 16, 2025. FINDINGS: The patient is rotated to the right. The heart is mildly enlarged. The mediastinum is unremarkable . There is mild pulmonary vascular congestion. No focal consolidation is identified in the lungs. There is no pneumothorax . Status post median sternotomy. Endotracheal tube tip terminates 1.5 cm above the fab. Feeding tube courses below the inferior margin of the radiograph. Impression: Mild pulmonary vascular congestion. Images reviewed, interpreted, and dictated by Dr. Clint Gaspar. Transcribed by Danyel Ziegler PA-C XR chest AP portable [[id number]] Collected: 01/16/25 1442 Order Status: Completed Updated: 01/16/25 163 Narrative: PORTABLE CHEST X-RAY INDICATION: Shortness of breath. FINDINGS: A portable view of the chest was obtained. Comparison is made to a prior exam dated 01/15/2025. Patient is again noted to be status post median sternotomy. No change in support tubes or lines. Heart size is stable. Interstitial opacities and left basilar airspace disease are unchanged. No pneumothorax. Impression: No interval change. Images reviewed, interpreted, and dictated by Fab Smith MD Medications: Scheduled Meds: amLODIPine 10 mg oral Daily 10 mg at 01/21/25926 aspirin 81 mg oral Daily 81 mg at 01/21/25927 [Held by provider] atorvastatin 80 mg oral Every Night 80 mg at 01/21/252012 budesonide 0.5 mg nebulization 2 times daily 0.5 mg at 01/21/25 204 cyanocobalamin 1,000 mcg intraMUSCULAR Daily donepeziL 10 mg oral Every Night 10 mg at 01/21/25 2013 doxycycline 100 mg intravenous Q12H IVPB Stopped at 01/21/25 2147 escitalopram 10 mg oral Daily 10 mg at 01/21/25927 famotidine 20 mg intravenous Daily ferrous sulfate 300 mg oral Daily 300 mg at 01/21/25926 [Held by provider] gabapentin 100 mg oral BID 100 mg at 01/15/25 0845 guaiFENesin 300 mg feeding tube Q6H DEXTER 300 mg at 01/22/25 0500 heparin 5,000 Units subcutaneous Q12H 5,000 Units at 01/21/252011 [Held by provider] hydroCHLOROthiazide 12.5 mg oral Daily 12.5 mg at 01/14/25 0906 insulin regular 0-6 Units subcutaneous Q6H DEXTER 4 Units at 01/21/25 1813 ipratropium-albuteroL 3 mL nebulization Q6H 3 mL at 01/22/25 0445 [Held by provider] isosorbide mononitrate 30 mg oral QAM AC 30 mg at 01/13/25 0859 melatonin 3 mg oral Every Night 3 mg at 01/21/252012 [Held by provider] memantine 5 mg oral BID 5 mg at 01/21/252011 methylPREDNISolone 40 mg intravenous Daily 40 mg at 01/21/25926 metoprolol tartrate 25 mg oral BID 25 mg at 01/21/252012 pantoprazole 40 mg intravenous BID piperacillin-tazobactam 2.25 g intravenous Q6H 2.25 g at 01/22/25 0458 Continuous Infusions: Current Facility-Administered Medications Medication Dose Route Frequency Provider Last Rate Last Admin acetaminophen (TYLENOL) tablet 1,000 mg 1,000 mg oral Q6H PRN Agustin Andrew MD amLODIPine (NORVASC) tablet 10 mg 10 mg oral Daily Donnie Jeffery MD 10 mg at 01/21/25926 aspirin chewable tablet 81 mg 81 mg oral Daily Donnie Jeffery MD 81 mg at 01/21/25927 [Held by provider] atorvastatin (LIPITOR) tablet 80 mg 80 mg oral Every Night Ismaeel Thony, DO 80 mg at 01/21/252012 benzonatate (TESSALON) capsule 100 mg 100 mg oral TID PRN Ismaeel Thony, DO budesonide (PULMICORT) nebulizer suspension 0.5 mg 0.5 mg nebulization 2 times daily Ismaeel Thony, DO 0.5 mg at 01/21/252041 cyanocobalamin injection 1,000 mcg 1,000 mcg intraMUSCULAR Daily Krystian Bhakta MD dextrose 50% (D50W) injection 25 g 25 g intravenous PRN Ismaeel Thony, DO docusate sodium (COLACE) capsule 100 mg 100 mg oral BID PRN Ismaeel Thony, DO donepeziL (ARICEPT) tablet 10 mg 10 mg oral Every Night Ismaeel Thony, DO 10 mg at 01/21/252012 doxycycline (VIBRAMYCIN) 100 mg in sodium chloride 0.9 % (NS) IVANA IVPB 100 mg intravenous Q12H Ismaeel Thony, DO IVPB Stopped at 01/21/252146 escitalopram (LEXAPRO) tablet 10 mg 10 mg oral Daily Ismaeel Thony, DO 10 mg at 01/21/25 0928 famotidine injection 20 mg 20 mg intravenous Daily Krystian Bhakta MD ferrous sulfate 300 mg (60 mg iron)/5 mL solution 300 mg 300 mg oral Daily Ismaeel Thony, DO 300 mg at 01/21/25 0927 [Held by provider] gabapentin (NEURONTIN) capsule 100 mg 100 mg oral BID Ismaeel Thony, DO 100 mgat 01/15/25 0845 glucagon injection 1 mg 1 mg intraMUSCULAR PRN Ismaeel Thony, DO glucose chew tab 16 g 16 g oral PRN Ismaeel Thony, DO glycerin (laxative) suppository 1 suppository 1 suppository rectal Daily PRN Ismaeel Thony, DO guaiFENesin (ROBITUSSIN) 100 mg/5 mL syrup 300 mg 300 mg feeding tube Q6H COUNTS INCLUDE 234 BEDS AT THE [facility] Ana Grover MD 300 mg at 01/22/25 0500 heparin injection 5,000 Units 5,000 Units subcutaneous Q12H Donnie Jeffery MD 5,000 Units at 01/21/252011 hydrALAZINE (APRESOLINE) injection 10 mg 10 mg intravenous Q6H PRN Agustin Andrew MD 10 mg at 01/20/25 0123 [Held by provider] hydroCHLOROthiazide (HYDRODIURIL) tablet 12.5 mg 12.5 mg oral Daily Mark Flores MD 12.5 mg at 01/14/25 0906 insulin regular (HUMULIN R,NOVOLIN R) injection 0-6 Units subcutaneous Q6H COUNTS INCLUDE [facility] AT [facility] 4 Units at 01/21/25 1813 ipratropium-albuteroL (DUO-NEB) 0.5 mg-3 mg(2.5 mg base)/3 mL nebulizer solution 3 mL 3 mL nebulization Q6H Ana Grover MD 3 mL at 01/22/25 0445 [Held by provider] isosorbide mononitrate (IMDUR) 24 hr tablet 30 mg 30 mg oral QAM AC Ismaeel Thony, DO 30 mg at 01/13/25 0859 labetaloL (TRANDATE, NORMODYNE) injection 10 mg 10 mg intravenous Q6H PRN Agustin Andrew MD 10 mg at 01/20/25 0407 LORazepam (ATIVAN) tablet 0.5 mg 0.5 mg oral Every Night PRN Ismaeel Thony, DO 0.5 mg at 013 magnesium sulfate IVPB 2 g in sterile water 50 mL (premix) 2 g intravenous Daily PRN Ismaeel Thony, DO IVPB Stopped at 01/18/25 0918 magnesium sulfate IVPB 2 g in sterile water 50 mL (premix) 2 g intravenous BID PRN Ismaeel Thony,DO IVPB Stopped at 01/16/25 0623 melatonin tablet 3 mg 3 mg oral Every Night Ismaeel Thony, DO 3 mg at 01/21/252012 [Held by provider] memantine (NAMENDA) tablet 5 mg 5 mg oral BID Ismaeel Thony, DO 5 mg at 01/21/252011 methylPREDNISolone sodium succinate (PF) (Solu-MEDROL) injection 40 mg 40 mg intravenous Daily Ismaeel Thony, DO 40 mg at 01/21/25 0927 metoprolol tartrate (LOPRESSOR) tablet 25 mg 25 mg oral BID Donnie Jeffery MD 25 mg at 01/21/252012 pantoprazole (PROTONIX) injection 40 mg 40 mg intravenous BID Krystian Bhakta MD piperacillin-tazobactam (ZOSYN) 2.25 g in dextrose 5 % (D5W) 50 mL IVPB 2.25 g intravenous Q6H Donnie Jeffery MD 16.7 mL/hr at 01/22/25 0458 2.25 g at 01/22/25 0458 polyethylene glycol (GLYCOLAX) packet 17 g 17 g oral Daily PRN Ismaeel Thony, DO potassium bicarbonate (EFFER-K) disintegrating tablet 40 mEq 40 mEq oral Q6H PRN Donnie Jeffery MD 40 mEq at 01/18/25 0611 potassium chloride IVPB 10 mEq in 100 mL sterile water (premix) 40 mEq intravenous Q1H PRN Donnie Jeffery MD promethazine (PHENERGAN) 12.5 mg in sodium chloride 0.9 % (NS) 50 mL IVPB (Immediate Use Only) 12.5mg intravenous Q6H PRN Ismaeel Thony, DO IVPB Stopped at 01/20/25 0429 sodium chloride flush 10 mL 10 mL intravenous PRN Ismaeel Thony, DO PRN Meds: @MEDSPRN@ Assessment and Plan = Acute hypoxic respiratory failure, secondary to aspiration pneumonia = Severe Sepsis with Septic Shock and acute respiratory failure requiring intubation and mechanicalventilation. Treated with IV Levophed in the ICU on IV antibiotics = INTUBATION on 01/14/2025 = EXTUBATION on 01/16/2025 = Left mainstem bronchus occlusion, secondary to aspiration = Acute exacerbation of chronic obstructive pulmonary disease = Patient admitted to OSH with evidence of volume overload, increased O2 requirements with acute decompesation yesterday, requiring optiflow. WBC 20K - CT chest from outside hospital with near complete pneumonic infiltration of left lower lobe, mildpatchy areas of pneumonia in the right lung. Near complete bronchial obstruction in the left mainstem, upper/lower segmental and subsegmental bronchi due to significant amount of debris with mediastinal and left axillary adenopathy. - continue with IV Zosyn (Multiple recent admissions) + IV doxycycline - DuoNebs 4 times daily daily plus Pulmicort nebs twice daily -Mucocyst Qhr - Aggressive pulmonary hygiene ordered = intubated 01/14 = S/P bronchoscopy showed Left lower lobe mucous plug = Sepsis: Present at OSH 2/2 to PNA - Evidenced by tachycardia, leukocytosis, pneumonia - Continue IV abx as above de-escalate and discontinue IV antibiotics in 1 to 2 days -Follow cultures and BAL = Acute on chronic HFpEF - Echo not available but per chart review from OSH, preserved EF. Patient received intermittent IV diuretics at OSH. - TTE noted -hold for diuretics for now due worsening kidney function - Strict I/O, monitor UOP - Continuous telemetry and spO2 - K> 4, Mg>2, potassium 2.9 , replace , magnesium 1.6, replace per protocol # Acute kidney injury Creatinine slightly down to 1.95---> 0.9 IVF, no diuretics for now Hold hydrochlothiazide Continue monitoring Nephrology following, discussed with Dr Cobb Resolved #Anxiety disorder: - Resume home ativan 0.5 mg qhs prn #GERD: - Resume home PPI #Normocytic anemia - Labs independently reviewed:Hbg 8.2, Hct 25.6 Continue with iron supplement Monitor H&H #HTN Continue with amlodipine and Lopresor Monitor BP #Dementia: - Continue home namenda and aricept - Delirium precautions when extubate : blinds open and lights on during day, sleep aids at night PRN in order to maintain circadian rhythm, frequent re- orientation, encourage family at bedside, limitsedating and anticholinergic medications #Mood disorder: - Continue lexapro 10 mg daily #Hx of CVA: - Continue lipitor 80 mg qhs #Pre-diabetes: - Last A1c 5.6 2 weeks ago - SSI -BG this morning 166, monitor closely while on steroid #CAD s/p CABG x 3 - Continue aspirin 325 mg daily - Continue lopressor 25mg BID daily - imdur 30 mg daily on hold #Chronic T12 burst fracture: - Noted on CT chest with mild central canal stenosis - Recommend outpatient follow-up #Debility -Consult to PT/OT -Consult to Case Management ordered. -Complicates all aspects of care. Diet: Orders Placed This Encounter Procedures NPO diet Code Status: Current Code Status DNR: Interventions Limited: No Intubation I saw and evaluated the patient today Patient's daughter is at the bedside Patient has Corpak in place The daughter Sonia is at the bedside side Had lengthy discussion with the patient and and daughter They want DNR/DNI Patient is going for modified barium swallow however patient and daughters decided if she does not pass the modified barium swallow they were just advance her diet and eventually go home I changed Protonix to IV Protonix Added IV Pepcid for now I have discussed with RN at the bedside Disposition: To be determined. Patient has Corpak feeding tube in place TIME SPENT: 37 minutes Signed: Krystian Bhatka MD Internal Medicine Hospitalist 01/22/2025, 8:59 AM * Chanel Fer, JOY - 01/21/2025 3:[address] [facility] NUTRITION ASSESSMENT ADIME Nutrition Assessment The patient is a 74 y.o. female presenting from OSH for L mainstem bronchus occlusion, needing bronch. Present on Admission: Aspiration pneumonia (HCC) Acute resp failure L mainstem bronchus occlusion COPD exacerbation Sepsis Dementia Nutrition Evaluation Type: Follow Up Reason for Evaluation: +vent Subjective Comments: 01/21: High f/up. Pt remains NPO per GAS GOLF CART REPAIRER, plan for MBS tomorrow. Corpak remains in place with TF at30 ml/hr. Spoke with RN, reported pt c/o nausea with TF at goal, RD to adjust TF goal and monitor tolerance-d/w RN. 01/18: Pt extubated this am, currently on Bipap. Spoke with Miles MORGAN, plan to hold TF while pt on Bipap and once off can restart. Recommend G[employer] GOLF CART REPAIRER eval as appropriate. 01/17: High f/u. Pt discussed during MDR. Pt remains intubated, plans for SBT tomorrow. Pt has had elevated BG per RN - noted FSBG 258/355. Discussed changing to Glucerna once current bag is out. Will adjust order. 01/16: RD check on. Pt remains intubated but off sedation. Attempting SBT, hopeful for extubation. Corpak has been placed in duodenum and TF started @ 20 ml/hr. Orders remain in place 01/14: Screened pt in ICU, +vent. Pt presenting for bronch d/t bronchial stem obstruction. Requiredemergent intubation yesterday d/t resp distress. Pt is sedated today, off pressors. S/p bronch thisam. Miles MORGAN ok to place Corpak and start TF, RD to place orders. Past Medical/Surgical History: No past medical history on file. No past surgical history on file. Vitals and Basic Assessment: Vitals: Vitals: 01/21/25 0921 BP: 136/70 Pulse: 89 Resp: 15 Temp: 97.3 ??F (36.3 ??C) SpO2: 100% Oxygen: 2LNC Efren Scale: Efren Scale Score: 15 Last BM: Last BM Date: 01/21/25 GI Symptoms: soft/nondistended abd, +BS, +corpak (duodenum) Edema: Edema: Generalized Skin: pressure injury - sacrum Allergies: No Known Allergies Scheduled Medications: Current Facility-Administered Medications Medication Dose Route Frequency Provider Last Rate Last Admin acetaminophen (TYLENOL) tablet 1,000 mg 1,000 mg oral Q6H PRN Agustin Andrew MD amLODIPine (NORVASC) tablet 10 mg 10 mg oral Daily Donnie Jeffery MD 10 mg at 01/21/25926 aspirin chewable tablet 81 mg 81 mg oral Daily Donnie Jeffery MD 81 mg at 01/21/25927 atorvastatin (LIPITOR) tablet 80 mg 80 mg oral Every Night Ismaeel Thony, DO 80 mg at 01/20/252156 benzonatate (TESSALON) capsule 100 mg 100 mg oral TID PRN Ismaeel Thony, DO budesonide (PULMICORT) nebulizer suspension 0.5 mg 0.5 mg nebulization 2 times daily Ismaeel Thony, DO 0.5 mg at 01/21/25 110 dextrose 50% (D50W) injection 25 g 25 g intravenous PRN Ismaeel Thony, DO docusate sodium (COLACE) capsule 100 mg 100 mg oral BID PRN Ismaeel Thony, DO donepeziL (ARICEPT) tablet 10 mg 10 mg oral Every Night Ismaeel Thony, DO 10 mg at 01/20/252156 doxycycline (VIBRAMYCIN) 100 mg in sodium chloride 0.9 % (NS) IVANA IVPB 100 mg intravenous Q12H Ismaeel Thony, DO IVPB Stopped at 01/21/25 112 escitalopram (LEXAPRO) tablet 10 mg 10 mg oral Daily Ismaeel Thony, DO 10 mg at 01/21/25927 ferrous sulfate 300 mg (60 mg iron)/5 mL solution 300 mg 300 mg oral Daily Ismaeel Thony, DO 300 mg at 01/21/25926 [Held by provider] gabapentin (NEURONTIN) capsule 100 mg 100 mg oral BID Ismaeel Thony, DO 100 mgat 01/15/25 0845 glucagon injection 1 mg 1 mg intraMUSCULAR PRN Ismaeel Thony, DO glucose chew tab 16 g 16 g oral PRN Ismaeel Thony, DO glycerin (laxative) suppository 1 suppository 1 suppository rectal Daily PRN Ismaeel Thony, DO guaiFENesin (ROBITUSSIN) 100 mg/5 mL syrup 300 mg 300 mg feeding tube Q6H COUNTS INCLUDE 234 BEDS AT THE [facility] Ana Grover MD 300 mg at 01/21/25 1141 heparin injection 5,000 Units 5,000 Units subcutaneous Q12H Donnie Jeffery MD 5,000 Units at 01/21/25 0927 hydrALAZINE (APRESOLINE) injection 10 mg 10 mg intravenous Q6H PRN Agustin Andrew MD 10 mg at 01/20/25 0123 [Held by provider] hydroCHLOROthiazide (HYDRODIURIL) tablet 12.5 mg 12.5 mg oral Daily Mark Flores MD 12.5 mg at 01/14/25 0906 insulin regular (HUMULIN R,NOVOLIN R) injection 0-6 Units subcutaneous Q6H COUNTS INCLUDE 234 BEDS AT THE [facility] Thony, DO 2 Units at 01/21/25 1314 ipratropium-albuteroL (DUO-NEB) 0.5 mg-3 mg(2.5 mg base)/3 mL nebulizer solution 3 mL 3 mL nebulization Q6H Ana Grover MD 3 mL at 01/21/25 1108 [Held by provider] isosorbide mononitrate (IMDUR) 24 hr tablet 30 mg 30 mg oral QAM AC Ismaeel Thony, DO 30 mg at 01/13/25 0859 labetaloL (TRANDATE, NORMODYNE) injection 10 mg 10 mg intravenous Q6H PRN Agustin Andrew MD 10 mg at 01/20/25 0407 LORazepam (ATIVAN) tablet 0.5 mg 0.5 mg oral Every Night PRN Ismaeel Thony, DO 0.5 mg at 257 magnesium sulfate IVPB 2 g in sterile water 50 mL (premix) 2 g intravenous Daily PRN Ismaeel Thony, DO IVPB Stopped at 01/18/25 0918 magnesium sulfate IVPB 2 g in sterile water 50 mL (premix) 2 g intravenous BID PRN Ismaeel Thony,DO IVPB Stopped at 01/16/25 0623 melatonin tablet 3 mg 3 mg oral Every Night Ismaeel Thony, DO 3 mg at 01/20/25 2158 memantine (NAMENDA) tablet 5 mg 5 mg oral BID Ismaeel Thony, DO 5 mg at 01/21/25 0928 methylPREDNISolone sodium succinate (PF) (Solu-MEDROL) injection 40 mg 40 mg intravenous Daily Ismaeel Thony, DO 40 mg at 01/21/25 0927 metoprolol tartrate (LOPRESSOR) tablet 25 mg 25 mg oral BID Donnie Jeffery MD 25 mg at 01/21/25 0928 pantoprazole (PROTONIX) injection 40 mg 40 mg intravenous QPM Ismaeel Thony, DO 40 mg at 643 piperacillin-tazobactam (ZOSYN) 2.25 g in dextrose 5 % (D5W) 50 mL IVPB 2.25 g intravenous Q6H Donnie Jeffery MD 16.7 mL/hr at 01/21/25 1141 2.25 g at 01/21/25 1141 polyethylene glycol (GLYCOLAX) packet 17 g 17 g oral Daily PRN Ismaeel Thony, DO potassium bicarbonate (EFFER-K) disintegrating tablet 40 mEq 40 mEq oral Q6H PRN Donnie Jeffery MD 40 mEq at 01/18/25 0611 potassium chloride IVPB 10 mEq in 100 mL sterile water (premix) 40 mEq intravenous Q1H PRN Donnie Jeffery MD promethazine (PHENERGAN) 12.5 mg in sodium chloride 0.9 % (NS) 50 mL IVPB (Immediate Use Only) 12.5mg intravenous Q6H PRN Ismaeel Thony, DO IVPB Stopped at 01/20/25 0429 sodium chloride flush 10 mL 10 mL intravenous PRN Ismaeel Thony, DO Drips: none Recent Labs 01/19/25 0841 01/19/25 1209 01/19/25 1245 01/19/25 1721 01/20/25 0512 01/20/25 0518 01/20/25 1037 01/21/25 0003 01/21/25 0513 01/21/25 1203 NA -- -- 142 -- -- 136 -- -- -- -- K -- -- 4.5 -- -- 3.6 -- -- -- -- CO2 -- -- 23 -- -- 18* -- -- -- -- BUN -- -- 26.7* -- -- 28.0* -- -- -- -- CREATININE -- -- 1.06 -- -- 0.90 -- -- -- -- GLUCOSE -- < > 246* < > -- 199* < > 123* 155* 217* CALCIUM -- -- 9.0 -- -- 8.9 -- -- -- -- HGB 10.1* -- -- -- 9.5* -- -- -- -- -- HCT 31.8* -- -- -- 29.8* -- -- -- -- -- < > = values in this interval not displayed. WBC 15.6 No results found for: HGBA1C Anthropometrics: Ht: Height: 152.4 cm (5') Wt: Weight: 48.1 kg (106 lb 0.7 oz) (01/12) Wt hx: 117# (11/19/24) BMI: Body mass index is 20.71 kg/m??. Wt Change: loss % Wt Change: 9.4% x 2 months (considered significant) UBW: UTO IBW: 100# Percent IBW: 106% Estimated Needs: *re-est'd 01/21 1945-3592 kcal (MSJ x1.2AF) 38-48g pro (0.8-1g pro/kg) Current Nutrition Intake: Diet Orders: Diet Order(s): NPO diet Supplements: Diet Supplements: None Intake: NPO Enteral Nutrition? yes TF regimen: Glucerna 1.5 @30 ml/hr Diet Experience and Nutrition History: Previous Nutrition Education: Unknown Diet Education Provided: not appropriate Nutrition Focused Physical Exam: Date performed: 01/14 - unable to assess Physical signs of fat or muscle wasting with severity: UTO Energy intake hx: UTO Wt loss: ? 9.4% wt loss x 2 months Assessment of Malnutrition: Unable to complete malnutrition evaluation at this time. Nutrition Diagnoses: Problem #1: Inadequate Oral Intake Etiology: inability to meet metabolic demand 2/2 dysphagia Signs/Symptoms: NPO, need for TF Status: Ongoing Nutrition Interventions and Recommendations: Collaboration with other providers and Enteral nutrition Nutrition Monitoring and Goals: - Advance Glucerna 1.5 as tolerated to goal @35 ml/hr (provides 1155 kcal, 64g pro). FW per MD. Goal: meet 100% est needs - Recommend diet advancement per G[employer] GOLF CART REPAIRER (+regular with ONS prn). Goal: safe PO - Monitor BG levels, recommend adjusting insulin prn. Goal: BG 100-180mg/dL - Obtain wt 2x weekly Goal: avoid involuntary significant wt change Nutrition Risk Level: High Risk Chanel Monroe RDN, LD * Chanel Cobb MD - 01/21/2025 2:58 PM EDT Subjective History of Present Illness: Margarita Stone is a 74 y.o. female with medical history of Chronic Respiratory Failure on 2L NC at baseline, COPD, CVA with slight residual on word finding, question of Dementia?, HTN/HLD and DM. 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 Near complete bronchial obstruction in the left mainstem, upper/lower segmental and subsegmental bronchi due to significant amount of debris with mediastinal and left axillary adenopathy. WBC 17.9, Cr 1.03. Patient was admitted on 01/12 and was maintained on IV antibiotics with IV doxycycline and Zosyn. Patient has been maintained on IV Lasix Echo on 01/13 was unremarkable Patient had a bronchoscopy on 01/14 showed very thick mucous plugs especially on the left lower lobe that was cleaned and removed, some mucous plugs in the right lower lobe that was cleaned and removed. Base creatinine 1.03 and today 2.23 Patient was seen and examined today. No fever or chills Not in acute distress. Patient comfortable. Requiring 3 L nasal cannula. Discussed with her daughter at the bedside. Review of Systems HENT: Negative. Respiratory: Positive for shortness of breath. Cardiovascular: Negative. Gastrointestinal: Negative. Neurological: Positive for weakness. Objective Last Recorded Vitals Blood pressure (!) 145/60, pulse 80, temperature 98.2 ??F (36.8 ??C), resp. rate 18, height 1.524 m(5'), weight 48.1 kg (106 lb 0.7 oz), SpO2 99%. Physical Exam Constitutional: Appearance: She is ill-appearing. Comments: Intubated HENT: Head: Normocephalic and atraumatic. Cardiovascular: Rate and Rhythm: Normal rate and regular rhythm. Heart sounds: Normal heart sounds. Abdominal: General: Abdomen is flat. Palpations: Abdomen is soft. Musculoskeletal: Cervical back: Normal range of motion and neck supple. Skin: General: Skin is warm and dry. Neurological: Mental Status: She is alert and oriented to person, place, and time. Labs: No results found for this visit on 01/12/25 (from the past 24 hours). XR chest AP portable Narrative: PORTABLE CHEST 01/23/2025 5:08 AM HISTORY: Aspiration pneumonia. COMPARISON: 1 day prior. FINDINGS: The heart size is within normal limits. The mediastinum is unremarkable. There is branching high density in the lung bases consistent with aspiration of barium. There is dense left lower lung consolidation. There is no pneumothorax . Corpak terminates below the diaphragm. Impression: 1. Branching high density in the lung bases is consistent with aspiration of barium. 2. Dense left lower lung consolidation. Images reviewed, interpreted, and dictated by Dr. Juan Bonilla. Transcribed by Callie Garnica PA-C. Assessment 1. Stage II acute kidney injury likely multifactorial ischemic and toxic ATN secondary to underlying infection, contrast exposure, IV diuresis etc. cannot rule out associated AIN 2. Anemia likely multifactorial 3. Hypertension 4. Left lung pneumonia 5. Acute metabolic encephalopathy/history of CVA 6. Acute on chronic hypoxic respiratory failure 7. COPD exacerbation/history of recurrent aspiration pneumonia Plan - Base kidney function was normal at presentation,improved -Avoid nephrotoxins -Strict intake and output -Bladder scan as needed -Keep MAP above 65 and hemoglobin above 7 -Echocardiogram was unremarkable -Renally dose medications and antibiotics -Monitor kidney function electrolytes closely -No need for BACK PAD INSPECTOR at present time -Loop diuretics as needed -Thanks for consultation [facility] 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 [facility] CARDIAC TELEMETRY Inpatient Occupational Therapy Initial Evaluation Patient Name: Margarita Stone Date of : 1950 Date of Evaluation: 01/21/25 Start Time: 14:52 Stop Time: 15:17 Session Duration: 25 minutes Total time: 35 minutes spent, including 10 minutes for nursing collaboration, thorough chart and systems review, and clinical reasoning. This patient is a 74 y.o. female admitted on 01/12/2025 with Aspiration pneumonia (HCC) [J69.0] Bronchial obstruction [J98.09]. General Visit type: Re-evaluation Approved by: Nurse Spears Patient disposition upon entry: Patient verified by name, Patient verified by date of , Supinein bed, Visitor/family present, All needs met and within reach, Call light/pull cord in reach, Fallmats in place, Head of bed >30 degrees, Nursing aware/notified, Side rails up Co-treated by: PT Precautions Weightbearing status: No restrictions Precautions: Fall risk Isolation precautions: Standard LDA/Brace/Protective equipment: Lines, drains, and airways: NG tube, blood pressure cuff, external urinary catheter , peripheral IV, pulse oximeter , telemetry Subjective Subjective: Pt agreeable Pain No-patient has no complaints of pain Cognition Cognition: Arousal/alertness: Lethargic. Patient appears drowsy and may fall asleep if not stimulated. Patient having difficulty with maintaining attention to activity or command. Following commands: Follows one step commands with increased time Follows one step commands with repetition Vision/Hearing History Visual/Hearing History: Current Vision: No visual deficits Current Hearing: No hearing deficits Home Living Lives with: Daughters, rotates homes between 3 children Receives help from: Family Type of home: House Home layout: One level, No stairs to enter Home equipment available: bedside commode, mechanical lift, walker, rolling, wheelchair, manual, lift chair Functional Mobility PLOF: Family/caregiver reports patient required assistance with bed mobility, transfers, manual w/c propulsion prior to onset. Activities of Daily Living PLOF: Family/caregiver reports patient required assistance with all ADLsprior to onset. Does the patient have a recent history of falls?: No Objective Vitals Heart rate: 74 beats per minute Blood pressure: 144/61 mmHg SpO2: 99% O2 (L/min): 2 (L/min) nasal cannula Range of Motion Assessment Functional with limitations: Patient is able to use bilateral upper extremities for reaching/grasping/holding objects at or below shoulder level, but not above Strength Assessment Fair: Patient is able to use arms to pull, push, and hold minimal resistance at elbow and wrist, but shows increased weakness at shoulders and is unable to take resistance Coordination/Sensation Coordination: The patient's gross motor coordination is intact. Sensation: Patient reports no sensation deficits. Bed Mobility Rolling: Maximal assistance, 1 person assist, Head of bed flat, Use of bed rails Scooting: Total Assistance Transfers Not assessed, pt non-ambulatory at baseline ADLs Feeding:Minimal Assistance Grooming:Maximal Assistance Bathing:Total Assistance Upper body dressing:Total Assistance Lower body dressing:Total Assistance Toileting:Total Assistance Outcome Measures [facility] Daily Living Functional Assessment How much help from another person does the patient currently need: Putting on and taking off regular lower body clothing? 1 Bathing, including washing, rinsing, and drying? 1 Toileting, including using toilet, bedpan or urinal? 1 Putting on and taking off regular upper body clothing? 1 Taking care of personal grooming such as brushing teeth? 2 Eating meals? 3 1=Total/Unable (Total assist/Dependent) 2=A lot (Maximal/Moderate assist) 3=A little (Minimal/Contact guard/Supervision/Setup) 4=None (Modified independent/Independent) The patient's [facility] raw score is 9. The patient currently has 79.59% functional impairment. Clinicians are most likely to recommend inpatient/SNF/predatory animal exterminator care for patients with scores between 6-17, home health for scores between 18-22, and routine discharge for scores above 22. Balance Not assessed this date Activity Tolerance Patient limited with activity/intervention due to fatigue, deconditioning, weakness, and lethargy Treatment Pt received supine in bed upon OT arrival. Pt ROM/MMT assessed supine in bed as listed above. Pt rolled to R side 1x max A. Pt rolled to L side 2x with max A. Verbal cues needed for initiation, sequencing and hand placement for all rolls. Pt positioned rolled on L side, call light and all needs within reach at conclusion of OT treatment session. Assessment Assessment Prior to admission, patient required assistance with ADLs , required assistance with functional mobility. Currently the patient presents with decreased balance , decreased safety awareness , difficulty with ADLs, fall risk, impaired cognition, impaired endurance, impaired functional mobility, impaired strength , impaired UE coordination, impaired UE functional use, impaired UE ROM. These deficitscurrently impact the patient's ability to perform ADLs and functional mobility, putting them at an increased risk for increased falls, decreased quality of life, poor outcomes, further functional decline, further decreased strength, increased caregiver burden. The patient has guarded rehab potential and would benefit from OT services to address the aforementioned functional deficits in order to return to prior level of function. The patient's current AMPAC score of 9 would indicate that the patient will likely be appropriate for inpatient rehab/SNF/ predatory animal exterminator care post hospitalization. Plan Recommendations Discharge recommendations: Discharge recommendations pending progression of acute hospital stay secondary to the patient's medical status DME recommendations: Unable to make adaptive/DME recommendations at this time. Treatment Plan: ADL training, Coordination training, Co-treat with physical therapy, DME recommendations , Energy conservation instruction, Functional mobility/transfer training, Home program instruction, Other activities to increase UE function, Patient/family/caregiver education, ROM, Safety training, Strengthening OT Frequency/Duration: 2x/week for 14 days Goals Feeding: feeding, at bed level with setup Bed mobility: rolling with moderate assistance. Functional transfers: stand pivot transfer with maximal assistance. Target Date: 02/04/2025 Goals were discussed with patient Education Patient educated on safety, use of call light, role of occupational therapy, patient's plan of care, functional mobility and following, they were able to verbalize understanding. Interdisciplinary Communication Following treatment, therapist communicated with nursing regarding patient's performance during therapy session, patient's level of assistance with transfers for nursing mobility. Patient Disposition Upon Leaving Patient disposition upon leaving: Supine in bed, Visitor/family present, All needs met and within reach, Call light/pull cord in reach, Fall mats in place, Head of bed >30 degrees, Nursing aware/notified, Rolled left, Side rails up If this patient discharges prior to next therapy session, this note serves as the patient's discharge summary. Electronically signed by Ovidio Dunbar OTR/L - 01/21/2025 - 3:41 PM EDT OT Evaluation Completed * Sonali Corley, PT - 01/21/2025 2:52 PM EDT Images from the original note were not included. Inpatient Physical Therapy Re-Evaluation Patient Name: Margarita Stone Date of : 1950 Date of Re-Evaluation: 01/21/25 Reason for Re-Evaluation: s/p extubation In Time 1452 Out Time 1526 Session Duration 34 minutes Time spent for nursing collaboration, chart and systems review, and clinical reasoning. 8 minutes Total Time 42 minutes Pt is a 74 y.o. female admitted on 01/12/2025 with Aspiration pneumonia (HCC) [J69.0] Bronchial obstruction [J98.09]. No past medical history on file. No past surgical history on file. General Visit type: Re-evaluation Approved By: Nurse Spears Patient Disposition Upon Entry: Supine in bed, Call Light/Pull Cord in reach, All needs met and within reach, Nursing aware/notified, HOB >30 degrees, Side rails up, Fall mat placed, Visitor/Family present Patient Verified By: Name and Date of Co-treated by: OT Precautions Weight-Bearing Status: No Restrictions Precautions: Fall risk Isolation Precautions: Standard Lines, tubes, drains, airway: nasal cannula , nasogastric feeding tube, peripheral IV, telemetry Subjective Subjective: Patient agreeable to physical therapy evaluation and treatment. Patient goal: Daughter's goal is take patient home, not inpatient rehab. Pain No - Patient not reporting pain at this time Cognition Overall cognitive status: Patient is awake and alert, attending to directions appropriately, demonstrating good problem solving skills, and aware of any deficits or impairments, if present. Following commands: Able to follow commands appropriately with verbal cueing Home Living Lives with: Daughter (takes turns weekly staying with daughters) Home Type: House Home Layout: One level Stairs to enter: None Stairs inside home: none Home Equipment: Standard walker, Manual wheelchair, BSC, hospital bed, lift chair, mechanical lift,back brace Functional Mobility PLOF: Pt states she sleeps in a recliner at one daughter's home and hospital bed at the other daughter's home. Patient requires assist x 2 for stand-pivot transfers or use of mechanical lift. Patient is non ambulatory at baseline. Activities of Daily Living PLOF: Pt says her daugther helps her on/off BSC and with a sponge bath. Fall History: No, patient denies any falls over the last 6 months. Objective Vitals Heart rate: 74 beats per minute Blood pressure: 144/61 mmHg SpO2: 99% O2 (L/min): 2 (L/min) nasal cannula Basic Strength Assessment Bilateral Lower Extremity Strength: LLE RLE Hip Flexion 3-/5 3-/5 Hip Abduction 3-/5 3-/5 Hip Adduction 3-/5 3-/5 Knee Flexion 3-/5 3-/5 Knee Extension 3-/5 3-/5 Ankle Dorsiflexion 1/5 1/5 Ankle Plantar Flexion 1/5 1/5 Range of Motion Assessment WFL LLE WFL RLE (AAROM/PROM) Patient presenting with right cervical lateral flexion with cervical pillow in place. Able to get neutral position from right lateral flexion and limited left rotation noted. Sensation Intact to light touch BLE Coordination Tapping (foot): LLE (1) Severe Impairment: Able only to initiate activity without completion; movements are slow with significant unsteadiness, oscillations, and/or extraneous movements, RLE (1) Severe Impairment: Able only to initiate activity without completion; movements are slow with significant unsteadiness, oscillations, and/or extraneous movements Functional Mobility Bed Mobility Rolling Left: maximal assistance, 1-person assist, HOB flat, use of bed features Rolling Right: maximal assistance, 1-person assist, HOB flat, use of bed features Bed Scooting: total assistance / dependent, 2-person assist, HOB flat Transfers Not assessed this date due to use of mechanical lift at baseline or assist x 2 for stand-pivot. Gait Patient is non-ambulatory at baseline. Stair Management Patient is non-ambulatory at baseline. Not assessed. Patient does not have to negotiate stairs in home or community environment. Wheelchair Mobility Patient unable to propel wheelchair at baseline. AM-PAC Basic Mobility Inpatient Short Form How much difficulty does the patient currently have: Turning over in bed (including adjusting bedclothes, sheets, and blankets)? (1) Total/Unable (not able to do the activity or can only perform the activity using assistive devices or requires assistance from another person, including supervision or cueing for safety) Sitting down on and standing up from a chair with arms (e.g., wheelchair, bedside commode, etc.)? (1) Total/Unable (not able to do the activity or can only perform the activity using assistive devices or requires assistance from another person, including supervision or cueing for safety) Moving from lying on back to sitting on side of bed? (1) Total/Unable (not able to do the activity or can only perform the activity using assistive devices or requires assistance from another person,including supervision or cueing for safety) How much help from another person does the patient currently need: Moving to and from a bed to a chair (including a wheelchair)? (1) Total/Unable (Total assist/dependent) Need to walk in hospital room? (1) Total/Unable (Total assist/dependent) Climbing 3-5 steps with a railing? (1) Total/Unable (Total assist/dependent) Score Raw score=6 t-Scale score=23.55 Standard error=4.57 [facility] 0-100%=100.00% MDC=4.72 A raw score of >= 16 is significantly associated with increased odds of discharge to home in addition to consideration made for the patient's cognition and social determinants of health. Balance Unable to assess Activity Tolerance Patient limited with activity/intervention due to fatigue, deconditioning, and weakness Treatment Bed mobility training for rolling right/left with max A x 1 and scooting total A x 2. Pt was positioned in left partial side lying to promote stretching to right cervical musculature with wedge and standard pillows at posterior trunk for support. PT educated pt's daughter to perform this at home, and to place hospital bed flat at times to allow for extension stretch of spine as daughter reports that patient tends to lean anteriorly and uses back brace for support during transfers and sitting inchair. Therapist facilitated the correct execution of therapeutic exercises to maximize benefit for strengthening. LE therapeutic exercise AAROM, heel slides supine, straight leg raise, supine hip abduction; PROM bilateral ankles, all performed x 5 reps. PT performed gentle passive stretch to right cervical musculature to promote midline alignment: to neutral position from right lateral flexion and left rotation. PT educated pt/daughter on HEP with handout for positioning, cervical exercises, and LE exercises. Daughter verbalized understanding. Assessment Patient is being reevaluated s/p extubation. At baseline, patient required assistance with functional mobility for bed mobility, and either assist x 2 for stand-pivot transfers or mechanical lift. Patient presenting with decreased activity tolerance, generalized weakness with functional activities,impaired dynamic balance with transfers, fatigue with physical exertion, and impaired coordination.Because of this, patient would have difficulty with independently performing toileting, bed mobility, and transferring. These functional limitations put the patient at an increased risk for falling, caregiver burden, skin breakdown, complications due to immobilization, deconditioning, and decreasedquality of life. Recommend discharge to home with 24 hour family care/assistance and home health services. Pt does not have any DME needs. Patient would benefit from skilled physical therapy servicesduring length of stay for strengthening, balance training to decrease risk of falling, endurance training to improve activity tolerance, transfer training, and progression of mobility. Problems: Decreased core stability, Decreased functional mobility, Decreased strength, Decreased activity tolerance, Impaired dynamic balance, Postural deviations, Impaired coordination Rehab potential: Fair Plan Treatment Plan: Therapeutic Exercise, Therapeutic Activity, Transfer Training, Balance Training, Strengthening, Home Exercise Program, ROM, Patient/Family/Caregiver Education, DME Recommendations, Co-Treat with OT PT Frequency/Duration: 3x/week for 14 days Recommendations Discharge recommendations: Discharge home/prior living situation. Patient would benefit from continued therapy services. DME recommendations: Patient has no DME/adaptive equipment discharge needs at this time. Goals Rolling: By the target date, patient will perform rolling to the left and right with moderate assistance, utilizing bed railing, to improve independence with bed mobility and decrease caregiver burden. [id number]: By the target date, patient will perform [id number] with maximal assistance, utilizing caregiver assistance, to improve independence with bed mobility. Transfer: By the target date, patient will perform squat-pivot transfer to a bedside commode, recliner chair, or wheelchair with maximal assistance x 2 and utilizing holding onto caregivers hands or arms, demonstrating ability to safely transfer while in hospital setting to improve independence with functional mobility, decrease caregiver burden, and decrease risk of falling. Other Goal #1: Daughter will perform teach back of HEP for LE and cervical. Target Date: 02/04/2025 Goals were discussed with patient and family Education Patient/Visitors educated on role of physical therapy, plan of care, therapeutic exercise, bed mobility, and ROM/positioning and following, they were able to verbalize and demonstrate understanding. No further questions or concerns stated. Interdisciplinary Communication Following treatment, therapist communicated with nursing regarding patient's performance during physical therapy session. Patient Disposition Upon Leaving Supine in bed, Call Light/Pull Cord in reach, All needs met and within reach, Nursing aware/notified, Rolled left, HOB >30 degrees, Side rails up, Fall mat placed, Visitor/Family present If this patient discharges prior to next therapy session, this note serves as the patient's discharge summary. Electronically signed by Sonali Corley PT - 01/21/25 - 3:48 PM EDT * GUILLAUME Jeff - 01/21/2025 11:47 AM EDTSummary: SHARON 01/22, [facility] vs [facility] Social Work Progress Note Per Care Team, patient is NPO with corpak. MBS tomorrow to further assess swallow function with Speech ([employer]). Case Management discharge planning: if patient passes MBS, [facility] can offer bed pending IV antibiotic plan with pulmonary. If patient fails MBS, patient/family will want to pursue w/[facility]. GUILLAUME Jeff * Agustin Andrew MD - 01/21/2025 10:13 AM EDT Subjective Patient was seen and examined today. No fever or chills Not in acute distress. Patient comfortable. Requiring 3 L nasal cannula. Discussed with her daughter at the bedside. Lab pending Objective Last Recorded Vitals Blood pressure 136/70, pulse 89, temperature 97.3 ??F (36.3 ??C), temperature source Oral, resp. rate 15, height 1.524 m (5'), weight 48.1 kg (106 lb 0.7 oz), SpO2 100%. Physical Exam General.: Alert and oriented Head atraumatic normal cephalic Constitutional intubated , chronically ill looking appearing Respiratory decreased air entry bilateral Cardiovascular S1-S2 no murmur gallops or rubs appreciated Labs: Results for orders placed or performed during the hospital encounter of 01/12/25 (from the past 24 hours) Glucose, Nova Meter Status: Abnormal Collection Time: 01/20/25 10:37 AM Result Value Ref Range POC-GLUCOSE 201 (H) 70 - 110 mg/dL Wire Spooler [id number] Glucose, Nova Meter Status: Abnormal Collection Time: 01/20/25 3:59 PM Result Value Ref Range POC-GLUCOSE 269 (H) 70 - 110 mg/dL Wire Spooler [id number] Glucose, Nova Meter Status: Abnormal Collection Time: 01/20/25 7:57 PM Result Value Ref Range POC-GLUCOSE 198 (H) 70 - 110 mg/dL Wire Spooler [id number] Glucose, Nova Meter Status: Abnormal Collection Time: 01/21/25 12:03 AM Result Value Ref Range POC-GLUCOSE 123 (H) 70 - 110 mg/dL Wire Spooler [id number] Glucose, Nova Meter Status: Abnormal Collection Time: 01/21/25 5:13 AM Result Value Ref Range POC-GLUCOSE 155 (H) 70 - 110 mg/dL Wire Spooler [id number] XR chest AP portable Narrative: PORTABLE CHEST 01/21/2025 6:50 AM HISTORY: Acute shortness of breath. COMPARISON: One day prior. FINDINGS: The patient is status post sternotomy for CABG. The heart is proper size. The mediastinum is unremarkable. There is left base atelectasis. There is decreased lung volumes. There is persistent but improved atelectasis or pneumonia. There is no pneumothorax. The osseous structures are unremarkable. The feeding tube courses below the diaphragm. Impression: Persistent but improved atelectasis or pneumonia. Follow-up to complete resolution recommended. Images reviewed, interpreted, and dictated by Dr. Juan Bonilla. Transcribed by Rukhsana Vidal PA-C. Medications Discontinued During This Encounter Medication Reason ipratropium-albuteroL (DUO-NEB) 0.5 mg-3 mg(2.5 mg base)/3 mL nebulizer solution 3 mL Duplicate Therapy furosemide (LASIX) 40 MG tablet potassium bicarbonate (EFFER-K) disintegrating tablet 40 mEq aspirin EC tablet 325 mg aspirin chewable tablet 324 mg piperacillin-tazobactam (ZOSYN) 2.25 g in sodium chloride 0.9 % (NS) MBP 50 mL IVPB guaiFENesin (mucINEX) 12 hr tablet 600 mg metoprolol succinate (TOPROL-XL) 24 hr tablet 100 mg ipratropium-albuteroL (DUO-NEB) 0.5 mg-3 mg(2.5 mg base)/3 mL nebulizer solution 3 mL furosemide (LASIX) injection 20 mg ferrous sulfate EC tablet 325 mg Other dexmedeTOMIDine (PRECEDEX) 400 mcg in sodium chloride 0.9% 100 mL (4 mcg/mL) infusion (premix) propofoL (DIPRIVAN) injection fentaNYL in NS (SUBLIMAZE) 20 mcg/mL infusion amLODIPine (NORVASC) tablet 5 mg phenylephrine (JORGE A-SYNEPHRINE) 40 mg in sodium chloride 0.9 % (NS) 250 mL infusion heparin injection 5,000 Units magnesium sulfate IVPB 2 g in sterile water 50 mL (premix) dexmedetomidine (PRECEDEX) 400 mcg in NS 100 mL infusion Assessment and plan #Acute hypoxic respiratory failure: #Left mainstem bronchus occlusion: # Most likely aspiration pneumonia: #COPD exacerbation - Patient admitted to OSH with evidence of volume overload, increased O2 requirements with acute decompesation yesterday, requiring optiflow. WBC 20K - CT chest from outside hospital with near complete pneumonic infiltration of left lower lobe, mildpatchy areas of pneumonia in the right lung. Near complete bronchial obstruction in the left mainstem, upper/lower segmental and subsegmental bronchi due to significant amount of debris with mediastinal and left axillary adenopathy. - continue with IV Zosyn (Multiple recent admissions) + IV doxycycline - DuoNebs 4 times daily daily plus Pulmicort nebs twice daily -Mucocyst Qhr - Aggressive pulmonary hygiene ordered -intubated 01/14 - S/P bronchoscopy showed Left lower lobe mucous plug - Pulmonology consulted, discussed with broaching machine set up operator, will continue current care in ICU - MRSA nares, urine antigens, pneumonia PCR and resp cultures ordered - IV solumedrol 40 mg daily and wean. -Legionella and Streptococcus antigen negative -Respiratory panel negative -Chest x-ray this morning personally reviewed, improvement of infiltrates -BiPAP machine wean -Discussed with Dr. Mathews at the bedside. -Repeat chest x-ray noted. -Repeat ABG noted -Speech evaluation. -Modified barium swallow in a.m. -Patient and her daughter declined PEG tube placement if she fails swallow test -Patient and her family leaning toward comfort care measures if deteriorating. #Sepsis: Present at OSH 2/2 to PNA - Evidenced by tachycardia, leukocytosis, pneumonia - Continue IV abx as above de-escalate and discontinue IV antibiotics in 1 to 2 days -Follow cultures and BAL #Acute on chronic HFpEF - Echo not available but per chart review from OSH, preserved EF. Patient received intermittent IV diuretics at OSH. - TTE noted -hold for diuretics for now due worsening kidney function - Strict I/O, monitor UOP - Continuous telemetry and spO2 - K> 4, Mg>2, potassium 2.9 , replace , magnesium 1.6, replace per protocol # Acute kidney injury Creatinine slightly down to 1.95---> 0.9 IVF, no diuretics for now Hold hydrochlothiazide Continue monitoring Nephrology following, discussed with Dr Jordyn Lorenzo #Anxiety disorder: - Resume home ativan 0.5 mg qhs prn #GERD: - Resume home PPI #Normocytic anemia - Labs independently reviewed:Hbg 8.2, Hct 25.6 Continue with iron supplement Monitor H&H #HTN Continue with amlodipine and Lopresor Monitor BP #Dementia: - Continue home namenda and aricept - Delirium precautions when extubate : blinds open and lights on during day, sleep aids at night PRN in order to maintain circadian rhythm, frequent re- orientation, encourage family at bedside, limitsedating and anticholinergic medications #Mood disorder: - Continue lexapro 10 mg daily #Hx of CVA: - Continue lipitor 80 mg qhs #Pre-diabetes: - Last A1c 5.6 2 weeks ago - SSI -BG this morning 166, monitor closely while on steroid #CAD s/p CABG x 3 - Continue aspirin 325 mg daily - Continue lopressor 25mg BID daily - imdur 30 mg daily on hold #Chronic T12 burst fracture: - Noted on CT chest with mild central canal stenosis - Recommend outpatient follow-up #Debility -Consult to PT/OT -Consult to Case Management ordered. -Complicates all aspects of care. CODE STATUS patient is DNR, ok to intubate Disposition. Wean BiPAP machine. Speech reevaluation. Modified barium swallow in a.m. Patient and her daughter declined PEG tube placement. Transferred from ICU to telemetry bed. Inpatient rehab facility referral. Discussed with case management specialist If patient deteriorate needs comfort care measures only * Obdulia Reyes CCC-GAS GOLF CART REPAIRER - 01/21/2025 8:14 AM EDT Images from the original note were not included. [facility] Speech Language Pathology Clinical Swallow Evaluation Initial evaluation Therapy Diagnosis: History of disordered pharyngeal swallow Recommendations: NPO with natanael. [facility] tomorrow to further assess swallow function Patient Name: Margarita Stone Birthday: 1950 Age: 74 y.o. Today: 01/21/2025 Time: 0814- includes time spent for nursing collaboration, chart and systems review, and clinical reasoning. Mental status:Alert , Cooperative, and Follows commands Pain: 0 via Trammell Rice Faces History Additional History:See initial evaluation Speech and Dysphagia History: FEES 01/13 recommending regular solids and extremely thick liquids Intubation History:01/13-01/18 Patient Active Problem List Diagnosis Aspiration pneumonia (HCC) Bronchial obstruction No past medical history on file. No past surgical history on file. Diet prior to admission:regular Current diet: NPO diet Diet tube feeding continuous TF Formula: Glucerna 1.5; Route of Feeding: NG- Tube; TF water flush volume (ml): 30 ml; TF water flush frequency: Other (enter in comments) (every hour) Subjective RN okayed session Objective Respiratory Status: nasal cannula Oral Mechanism Exam: unable to assess Dentition :Poor Condition Oral hygiene: Dry Secretion Management: functional Vocal Quality: weak Cough: - Volitional :Did not observe - Reflexive : Did not observe Oral Care Completed: no Oral Feeding Trials: Positioning: upright at 90' Feeding assistance: max assistance Consistencies Administered: thin Monet Swallow Test: not tested due to concern for silent aspiration The three ounce water test -- or Monet Swallow Protocol -- is a test that identifies patients who may be aspirating. Patients are instructed to drink three ounces of room temperature water consecutively until the cup is empty. This test has high sensitivity/specificity at identifying aspiration, per current research. (Betzy Arriaza. & Rob Johns, 2014) Assessment Cognitive/Communication Status: Able to follow commands for evaluation Summary: Patient seen for clinical swallow evaluation following extubation. Limited PO trials givendue to concern for aspiration due to known significant dysphagia and patient being silent aspirator. Per iván review, comfort is being discussed. G[employer] GOLF CART REPAIRER and daughter discussed MBS, hydration, comfort vsPEG. Will plan for MBS to further assess swallow and determine GOC. Prognosis: Good Patient Education:Instructed, Verbalized understanding, and Patient Results and recommendations of this evaluation were communicated to RN Plan Therapy Frequency: 5x per week Follow up Imaging: MBS Longterm Goals: 1.Establish safe PO diet Personal Goals:To eat Short Term Goals: 1.Complete a MBS of the Swallow to fully assess physiology and anatomy of the swallow and to determine the appropriate diet and/or rehabilitation exercises. GAS GOLF CART REPAIRER Recommendation at Discharge:Patient will need ongoing GAS GOLF CART REPAIRER services at discharge targeting dysphagia This will serve as a discharge statement if patient is discharged before further visits. Electronically signed by Obdulia Reyes CCC-GAS GOLF CART REPAIRER - 01/21/2025 - 9:08 AM EDT GAS GOLF CART REPAIRER Evaluation Completed . * Chanel Cobb MD - 01/20/2025 2:58 PM EDT Subjective History of Present Illness: Margarita Stone is a 74 y.o. female with medical history of Chronic Respiratory Failure on 2L NC at baseline, COPD, CVA with slight residual on word finding, question of Dementia?, HTN/HLD and DM. 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 Near complete bronchial obstruction in the left mainstem, upper/lower segmental and subsegmental bronchi due to significant amount of debris with mediastinal and left axillary adenopathy. WBC 17.9, Cr 1.03. Patient was admitted on 01/12 and was maintained on IV antibiotics with IV doxycycline and Zosyn. Patient has been maintained on IV Lasix Echo on 01/13 was unremarkable Patient had a bronchoscopy on 01/14 showed very thick mucous plugs especially on the left lower lobe that was cleaned and removed, some mucous plugs in the right lower lobe that was cleaned and removed. Base creatinine 1.03 and today 2.23 Patient was seen and examined today. Reported 6 beats of V. tach asymptomatic. Reported patient became nauseous when they increased her tube feed to 40 mL/h last night. Tube feed down to 30 mL/h this morning. Patient comfortable. Requiring 5 L nasal cannula. Review of Systems Unable to perform ROS: Mental status change Objective Last Recorded Vitals Blood pressure (!) 145/60, pulse 80, temperature 98.2 ??F (36.8 ??C), resp. rate 18, height 1.524 m(5'), weight 48.1 kg (106 lb 0.7 oz), SpO2 99%. Physical Exam Constitutional: Comments: Intubated HENT: Head: Normocephalic and atraumatic. Cardiovascular: Rate and Rhythm: Normal rate and regular rhythm. Heart sounds: Normal heart sounds. Abdominal: General: Abdomen is flat. Palpations: Abdomen is soft. Musculoskeletal: Cervical back: Normal range of motion and neck supple. Skin: General: Skin is warm and dry. Labs: No results found for this visit on 01/12/25 (from the past 24 hours). XR chest AP portable Narrative: PORTABLE CHEST 01/23/2025 5:08 AM HISTORY: Aspiration pneumonia. COMPARISON: 1 day prior. FINDINGS: The heart size is within normal limits. The mediastinum is unremarkable. There is branching high density in the lung bases consistent with aspiration of barium. There is dense left lower lung consolidation. There is no pneumothorax . Corpak terminates below the diaphragm. Impression: 1. Branching high density in the lung bases is consistent with aspiration of barium. 2. Dense left lower lung consolidation. Images reviewed, interpreted, and dictated by Dr. Juan Bonilla. Transcribed by Callie Nahun, PA-C. Assessment 1. Stage II acute kidney injury likely multifactorial ischemic and toxic ATN secondary to underlying infection, contrast exposure, IV diuresis etc. cannot rule out associated AIN 2. Anemia likely multifactorial 3. Hypertension 4. Left lung pneumonia 5. Acute metabolic encephalopathy/history of CVA 6. Acute on chronic hypoxic respiratory failure 7. COPD exacerbation/history of recurrent aspiration pneumonia Plan - Base kidney function was normal at presentation,improved -Avoid nephrotoxins -Strict intake and output -Bladder scan as needed -Keep MAP above 65 and hemoglobin above 7 -Echocardiogram was unremarkable -Renally dose medications and antibiotics -Monitor kidney function electrolytes closely -No need for BACK PAD INSPECTOR at present time -Loop diuretics as needed -Thanks for consultation [facility] [address] [place], [place], [address] Phone #[phone] Fax #[phone] High complex case ET ATTENDANT * Agustin Andrew MD - 01/20/2025 10:56 AM EDT Subjective Patient was seen and examined today. Reported 6 beats of V. tach asymptomatic. Reported patient became nauseous when they increased her tube feed to 40 mL/h last night. Tube feed down to 30 mL/h this morning. Patient comfortable. Requiring 5 L nasal cannula. Discussed with her daughter at the bedside. Objective Last Recorded Vitals Blood pressure (!) 159/74, pulse 85, temperature 97.9 ??F (36.6 ??C), resp. rate 16, height 1.524 m(5'), weight 48.1 kg (106 lb 0.7 oz), SpO2 100%. Physical Exam General.: On BiPAP machine. Head atraumatic normal cephalic Constitutional intubated , chronically ill looking appearing Respiratory decreased air entry bilateral Cardiovascular S1-S2 no murmur gallops or rubs appreciated Labs: Results for orders placed or performed during the hospital encounter of 01/12/25 (from the past 24 hours) Glucose, Nova Meter Status: Abnormal Collection Time: 01/19/25 12:09 PM Result Value Ref Range POC-GLUCOSE 222 (H) 70 - 110 mg/dL Wire Spooler [id number] Basic Metabolic Panel Status: Abnormal Collection Time: 01/19/25 12:45 PM Result Value Ref Range Sodium 142 136 - 145 meq/L Potassium 4.5 3.4 - 5.1 meq/L CO2 23 22 - 29 meq/L Chloride 103 98 - 112 meq/L Glucose 246 (H) 82 - 115 mg/dL BUN 26.7 (H) 9.8 - 20.1 mg/dL Creatinine 1.06 0.50 - 1.20 mg/dL BUN/Creatinine 25 (H) 8 - 20 Calcium 9.0 8.4 - 10.2 mg/dL Anion Gap 21 (H) 4 - 12 eGFR (mL/min/1.73m2) 55 (L) >=60 mL/min/1.73m2 Osmolality Calc 296.3 mOsm/kg Glucose, Nova Meter Status: Abnormal Collection Time: 01/19/25 5:21 PM Result Value Ref Range POC-GLUCOSE 230 (H) 70 - 110 mg/dL Wire Spooler [id number] Glucose, Nova Meter Status: Abnormal Collection Time: 01/19/25 11:42 PM Result Value Ref Range POC-GLUCOSE 164 (H) 70 - 110 mg/dL Wire Spooler [id number] Glucose, Nova Meter Status: Abnormal Collection Time: 01/20/25 5:03 AM Result Value Ref Range POC-GLUCOSE 204 (H) 70 - 110 mg/dL Wire Spooler [id number] CBC with automated diff Status: Abnormal Collection Time: 01/20/25 5:12 AM Result Value Ref Range WBC 13.2 (H) 4.0 - 10.0 K/??L RBC 3.27 (L) 3.93 - 5.22 M/??L Hemoglobin 9.5 (L) 11.2 - 15.7 GM/DL Hematocrit 29.8 (L) 34.1 - 44.9 % MCV 91 79 - 95 fL MCH 29.1 25.6 - 32.2 pg MCHC 31.9 (L) 32.2 - 35.5 GM/DL RDW 15.5 (H) 11.7 - 14.4 % Platelets 254 140 - 375 K/CU MM MPV 11.0 9.4 - 12.3 fL % Neutros 75 (H) 34 - 71 % % Lymphs 16 (L) 19 - 52 % % Monos 7 5 - 13 % % Eos 0.2 (L) 1.0 - 6.0 % % Baso 0 0 - 1 % NRBC Absolute <0.01 0 - 0.012 K/ul # Neutros 9.95 (H) 1.56 - 6.13 K/??L # Lymphs 2.06 1.18 - 3.74 K/??L # Monos 0.98 (H) 0.24 - 0.86 K/??L # Eos <0.03 (L) 0.04 - 0.36 K/ L # Baso <0.03 0.01 - 0.08 K/ L % Imm Grans 1.30 (H) 0.01 - 0.43 % # IG 0.17 (H) 0.00 - 0.03 K/uL Basic Metabolic Panel Status: Abnormal Collection Time: 01/20/25 5:18 AM Result Value Ref Range Sodium 136 136 - 145 meq/L Potassium 3.6 3.4 - 5.1 meq/L CO2 18 (L) 22 - 29 meq/L Chloride 104 98 - 112 meq/L Glucose 199 (H) 82 - 115 mg/dL BUN 28.0 (H) 9.8 - 20.1 mg/dL Creatinine 0.90 0.50 - 1.20 mg/dL BUN/Creatinine 31 (H) 8 - 20 Calcium 8.9 8.4 - 10.2 mg/dL Anion Gap 18 (H) 4 - 12 eGFR (mL/min/1.73m2) 67 >=60 mL/min/1.73m2 Osmolality Calc 283.0 mOsm/kg Magnesium Status: Normal Collection Time: 01/20/25 5:18 AM Result Value Ref Range Magnesium 1.7 1.6 - 2.6 mg/dL Phosphorus Status: Normal Collection Time: 01/20/25 5:18 AM Result Value Ref Range Phosphorus 3.0 2.5 - 4.5 mg/dL Glucose, Nova Meter Status: Abnormal Collection Time: 01/20/25 10:37 AM Result Value Ref Range POC-GLUCOSE 201 (H) 70 - 110 mg/dL Wire Spooler [id number] XR chest AP portable Narrative: PORTABLE CHEST HISTORY: Shortness of breath. COMPARISON: PCXR from the previous day. FINDINGS: The heart is stable in size. The patient is status post CABG. There is no pneumothorax. There is left basilar airspace disease and a small left effusion. Impression: Small left effusion with left basilar airspace disease likely representing pneumonia. Images reviewed, interpreted, and dictated by Dr. Juan Bonilla. Transcribed by Xavi Arroyo PA-C. Medications Discontinued During This Encounter Medication Reason ipratropium-albuteroL (DUO-NEB) 0.5 mg-3 mg(2.5 mg base)/3 mL nebulizer solution 3 mL Duplicate Therapy furosemide (LASIX) 40 MG tablet potassium bicarbonate (EFFER-K) disintegrating tablet 40 mEq aspirin EC tablet 325 mg aspirin chewable tablet 324 mg piperacillin-tazobactam (ZOSYN) 2.25 g in sodium chloride 0.9 % (NS) MBP 50 mL IVPB guaiFENesin (mucINEX) 12 hr tablet 600 mg metoprolol succinate (TOPROL-XL) 24 hr tablet 100 mg ipratropium-albuteroL (DUO-NEB) 0.5 mg-3 mg(2.5 mg base)/3 mL nebulizer solution 3 mL furosemide (LASIX) injection 20 mg ferrous sulfate EC tablet 325 mg Other dexmedeTOMIDine (PRECEDEX) 400 mcg in sodium chloride 0.9% 100 mL (4 mcg/mL) infusion (premix) propofoL (DIPRIVAN) injection fentaNYL in NS (SUBLIMAZE) 20 mcg/mL infusion amLODIPine (NORVASC) tablet 5 mg phenylephrine (JORGE A-SYNEPHRINE) 40 mg in sodium chloride 0.9 % (NS) 250 mL infusion heparin injection 5,000 Units magnesium sulfate IVPB 2 g in sterile water 50 mL (premix) dexmedetomidine (PRECEDEX) 400 mcg in NS 100 mL infusion Assessment and plan #Acute hypoxic respiratory failure: #Left mainstem bronchus occlusion: # Most likely aspiration pneumonia: #COPD exacerbation - Patient admitted to OSH with evidence of volume overload, increased O2 requirements with acute decompesation yesterday, requiring optiflow. WBC 20K - CT chest from outside hospital with near complete pneumonic infiltration of left lower lobe, mildpatchy areas of pneumonia in the right lung. Near complete bronchial obstruction in the left mainstem, upper/lower segmental and subsegmental bronchi due to significant amount of debris with mediastinal and left axillary adenopathy. - continue with IV Zosyn (Multiple recent admissions) + IV doxycycline - DuoNebs 4 times daily daily plus Pulmicort nebs twice daily -Mucocyst Qhr - Aggressive pulmonary hygiene ordered -intubated 01/14 - S/P bronchoscopy showed Left lower lobe mucous plug - Pulmonology consulted, discussed with broaching machine set up operator, will continue current care in ICU - MRSA nares, urine antigens, pneumonia PCR and resp cultures ordered - IV solumedrol 40 mg daily and wean. -Legionella and Streptococcus antigen negative -Respiratory panel negative -Chest x-ray this morning personally reviewed, improvement of infiltrates -BiPAP machine wean -Discussed with Dr. Mathews at the bedside. -Repeat chest x-ray noted. -Repeat ABG noted -Speech evaluation. -Patient and her daughter declined PEG tube placement if she fails swallow test -Patient and her family leaning toward comfort care measures if deteriorating. #Sepsis: Present at OSH 2/2 to PNA - Evidenced by tachycardia, leukocytosis, pneumonia - Continue IV abx as above -Follow cultures and BAL #Acute on chronic HFpEF - Echo not available but per chart review from OSH, preserved EF. Patient received intermittent IV diuretics at OSH. - TTE noted -hold for diuretics for now due worsening kidney function - Strict I/O, monitor UOP - Continuous telemetry and spO2 - K> 4, Mg>2, potassium 2.9 , replace , magnesium 1.6, replace per protocol # Acute kidney injury Creatinine slightly down to 1.95---> 0.9 IVF, no diuretics for now Hold hydrochlothiazide Continue monitoring Nephrology following, discussed with Dr Cobb #Anxiety disorder: - Resume home ativan 0.5 mg qhs prn #GERD: - Resume home PPI #Normocytic anemia - Labs independently reviewed:Hbg 8.2, Hct 25.6 Continue with iron supplement Monitor H&H #HTN Continue with amlodipine and Lopresor Monitor BP #Dementia: - Continue home namenda and aricept - Delirium precautions when extubate : blinds open and lights on during day, sleep aids at night PRN in order to maintain circadian rhythm, frequent re- orientation, encourage family at bedside, limitsedating and anticholinergic medications #Mood disorder: - Continue lexapro 10 mg daily #Hx of CVA: - Continue lipitor 80 mg qhs #Pre-diabetes: - Last A1c 5.6 2 weeks ago - SSI -BG this morning 166, monitor closely while on steroid #CAD s/p CABG x 3 - Continue aspirin 325 mg daily - Continue lopressor 25mg BID daily - imdur 30 mg daily on hold #Chronic T12 burst fracture: - Noted on CT chest with mild central canal stenosis - Recommend outpatient follow-up #Debility -Consult to PT/OT ordered. -Consult to Case Management ordered. -Complicates all aspects of care. CODE STATUS patient is DNR, ok to intubate Disposition. Wean BiPAP machine. Speech reevaluation. Patient and her daughter declined PEG tube placement. Transferred from ICU to telemetry bed. If patient deteriorate needs comfort care measures only * GUILLAUME Jeff - 01/20/2025 9:48 AM EDTSummary: LTACH vs CC Social Work Progress Note [facility] ([facility]) [facility] can offer bed if patient/family agreeable. Attending awaiting if Pulm will continue IV antibiotics for next 2-3 weeks. Patient currently not medically ready for discharge, current DNR/DNI. On high flow 5L, patient/family denied PEG. Update 01/20, 11:28 am - awaiting Speech Evaluation - if MBS failed, patient/family have decided onComf Care only. Care Plan - Discharge Plan pending Speech Evaluation and outcome. Comf Care vs LTACH ([facility]). GUILLAUME Jeff * Chanel Cobb MD - 01/19/2025 2:58 PM EDT Subjective History of Present Illness: Margarita Stone is a 74 y.o. female with medical history of Chronic Respiratory Failure on 2L NC at baseline, COPD, CVA with slight residual on word finding, question of Dementia?, HTN/HLD and DM. 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 Near complete bronchial obstruction in the left mainstem, upper/lower segmental and subsegmental bronchi due to significant amount of debris with mediastinal and left axillary adenopathy. WBC 17.9, Cr 1.03. Patient was admitted on 01/12 and was maintained on IV antibiotics with IV doxycycline and Zosyn. Patient has been maintained on IV Lasix Echo on 01/13 was unremarkable Patient had a bronchoscopy on 01/14 showed very thick mucous plugs especially on the left lower lobe that was cleaned and removed, some mucous plugs in the right lower lobe that was cleaned and removed. Base creatinine 1.03 and today 2.23 Extubated, on BiPAP Review of Systems Unable to perform ROS: Mental status change Objective Last Recorded Vitals Blood pressure (!) 145/60, pulse 80, temperature 98.2 ??F (36.8 ??C), resp. rate 18, height 1.524 m(5'), weight 48.1 kg (106 lb 0.7 oz), SpO2 99%. Physical Exam Constitutional: Comments: Intubated HENT: Head: Normocephalic and atraumatic. Cardiovascular: Rate and Rhythm: Normal rate and regular rhythm. Heart sounds: Normal heart sounds. Abdominal: General: Abdomen is flat. Palpations: Abdomen is soft. Musculoskeletal: Cervical back: Normal range of motion and neck supple. Skin: General: Skin is warm and dry. Labs: No results found for this visit on 01/12/25 (from the past 24 hours). XR chest AP portable Narrative: PORTABLE CHEST 01/23/2025 5:08 AM HISTORY: Aspiration pneumonia. COMPARISON: 1 day prior. FINDINGS: The heart size is within normal limits. The mediastinum is unremarkable. There is branching high density in the lung bases consistent with aspiration of barium. There is dense left lower lung consolidation. There is no pneumothorax . Corpak terminates below the diaphragm. Impression: 1. Branching high density in the lung bases is consistent with aspiration of barium. 2. Dense left lower lung consolidation. Images reviewed, interpreted, and dictated by Dr. Juan Bonilla. Transcribed by Callie Garnica PA-C. Assessment 1. Stage II acute kidney injury likely multifactorial ischemic and toxic ATN secondary to underlying infection, contrast exposure, IV diuresis etc. cannot rule out associated AIN 2. Anemia likely multifactorial 3. Hypertension 4. Left lung pneumonia 5. Acute metabolic encephalopathy/history of CVA 6. Acute on chronic hypoxic respiratory failure 7. COPD exacerbation/history of recurrent aspiration pneumonia Plan - Base kidney function was normal at presentation,improved -Avoid nephrotoxins -Strict intake and output -Bladder scan as needed -Keep MAP above 65 and hemoglobin above 7 -Echocardiogram was unremarkable -Renally dose medications and antibiotics -Monitor kidney function electrolytes closely -No need for BACK PAD INSPECTOR at present time -Loop diuretics as needed -Thanks for consultation [facility] [address] [place], [place], [address] Phone #[phone] Fax #[phone] High complex case ET ATTENDANT ET ATTENDANT * Agustin Andrew MD - 01/19/2025 11:04 AM EDT Subjective Patient was seen and examined in ICU today. Requiring BiPAP machine last night through this morning. Complaining of mild shortness of air No fever or chills No cough No chest pain. Discussed with her daughter at the bedside. Objective Last Recorded Vitals Blood pressure (!) 144/66, pulse 117, temperature 98.6 ??F (37 ??C), resp. rate 28, height 1.524 m (5'), weight 48.1 kg (106 lb 0.7 oz), SpO2 100%. Physical Exam General.: On BiPAP machine. Head atraumatic normal cephalic Constitutional intubated , chronically ill looking appearing Respiratory decreased air entry bilateral Cardiovascular S1-S2 no murmur gallops or rubs appreciated Labs: Results for orders placed or performed during the hospital encounter of 01/12/25 (from the past 24 hours) Glucose, Nova Meter Status: Abnormal Collection Time: 01/18/25 11:17 AM Result Value Ref Range POC-GLUCOSE 204 (H) 70 - 110 mg/dL Wire Spooler [id number] Glucose, Nova Meter Status: Abnormal Collection Time: 01/18/25 5:51 PM Result Value Ref Range POC-GLUCOSE 240 (H) 70 - 110 mg/dL Wire Spooler [id number] ECG 12 lead Status: None (In process) Collection Time: 01/18/25 10:06 PM Result Value Ref Range SYSTOLIC BLOOD PRESSURE (MCT) 178 mmHg DIASTOLIC BLOOD PRESSURE (MCT) 76 mmHg VENTRICULAR RATE EKG/MIN 82 BPM ATRIAL RATE (MCT) 82 BPM ND Interval 198 ms QRS-INTERVAL (MSEC) 88 ms QT Interval 668 ms QTC Interval 780 ms P Chaplin 31 degrees R AXIS (MCT) 112 degrees T Wave Chaplin 71 degrees [place] Diagnosis Normal sinus rhythm Left posterior fascicular block Anterior infarct (cited on or before 17-JAN-2025) Prolonged QT Abnormal ECG When compared with ECG of 18-JAN-2025 07:32, T wave inversion no longer evident in Inferior leads Nonspecific T wave abnormality, worse in Lateral leads Glucose, Nova Meter Status: Abnormal Collection Time: 01/19/25 12:50 AM Result Value Ref Range POC-GLUCOSE 138 (H) 70 - 110 mg/dL Wire Spooler [id number] Glucose, Nova Meter Status: Abnormal Collection Time: 01/19/25 5:17 AM Result Value Ref Range POC-GLUCOSE 155 (H) 70 - 110 mg/dL Wire Spooler [id number] CBC - Hemogram Status: Abnormal Collection Time: 01/19/25 8:41 AM Result Value Ref Range WBC 17.8 (H) 4.0 - 10.0 K/??L RBC 3.52 (L) 3.93 - 5.22 M/??L Hemoglobin 10.1 (L) 11.2 - 15.7 GM/DL Hematocrit 31.8 (L) 34.1 - 44.9 % MCV 90 79 - 95 fL MCH 28.7 25.6 - 32.2 pg MCHC 31.8 (L) 32.2 - 35.5 GM/DL RDW 16.2 (H) 11.7 - 14.4 % Platelets 328 140 - 375 K/CU MM MPV 10.7 9.4 - 12.3 fL ECG 12 lead Status: None (In process) Collection Time: 01/19/25 10:00 AM Result Value Ref Range SYSTOLIC BLOOD PRESSURE (MCT) 149 mmHg DIASTOLIC BLOOD PRESSURE (MCT) 65 mmHg VENTRICULAR RATE EKG/MIN 91 BPM ATRIAL RATE (MCT) 91 BPM ND Interval 186 ms QRS-INTERVAL (MSEC) 80 ms QT Interval 354 ms QTC Interval 435 ms P Chaplin 84 degrees R AXIS (MCT) 87 degrees T Wave Chaplin 106 degrees [place] Diagnosis Normal sinus rhythm Anterior infarct (cited on or before 24-OCT-2025) Abnormal ECG When compared with ECG of 18-JAN-2025 22:06, QT has shortened ABG Status: Abnormal Collection Time: 01/19/25 10:37 AM Result Value Ref Range pH, Arterial 7.44 7.35 - 7.45 pCO2, Arterial 44 35 - 45 mm Hg pO2, Arterial 98 80 - 100 mm Hg HCO3, Arterial 30 (H) 20 - 26 mmol/L Base Excess, Arterial 5.4 (H) -2.0 - 2.0 mmol/L O2 Sat, Arterial 98.3 95.0 - 100.0 % CTO2 ARTERIAL 14.2 mmol/L THB ARTERIAL 10.3 (L) 12.0 - 18.0 g/dL PaO2/FIO2 calculated 244.0 [facility] COLLECTION SITE Right Radial Arterial Puncture Yes Blood Gas O2 Delivery Device NIV Blood Gas PT Temperature C 37.0 Naif's Test Acceptable ABG Number of Draw Attempts 1 Set Rate 12.0 IPAP 12 EPAP 6 FIO2 40.0 Blood Gas Temperature Corrected Results No No XR chest AP portable Narrative: PORTABLE CHEST HISTORY: Acute respiratory failure. COMPARISON: One day prior. FINDINGS: The heart is mildly enlarged in size. The mediastinum is unremarkable. There is airspace opacity within the medial left lung base, stable. There are mild chronic changes throughout the lungs. There is no pneumothorax. Status post median sternotomy. The feeding tube lies off the inferior margin of the film. There has been interval extubation. Impression: 1. Stable airspace opacity in the medial left lung base. 2. Interval extubation. Images reviewed, interpreted, and dictated by Dr. Clint Gaspar. Transcribed by Va Cevallos PA-C. Medications Discontinued During This Encounter Medication Reason ipratropium-albuteroL (DUO-NEB) 0.5 mg-3 mg(2.5 mg base)/3 mL nebulizer solution 3 mL Duplicate Therapy furosemide (LASIX) 40 MG tablet potassium bicarbonate (EFFER-K) disintegrating tablet 40 mEq aspirin EC tablet 325 mg aspirin chewable tablet 324 mg piperacillin-tazobactam (ZOSYN) 2.25 g in sodium chloride 0.9 % (NS) MBP 50 mL IVPB guaiFENesin (mucINEX) 12 hr tablet 600 mg metoprolol succinate (TOPROL-XL) 24 hr tablet 100 mg ipratropium-albuteroL (DUO-NEB) 0.5 mg-3 mg(2.5 mg base)/3 mL nebulizer solution 3 mL furosemide (LASIX) injection 20 mg ferrous sulfate EC tablet 325 mg Other dexmedeTOMIDine (PRECEDEX) 400 mcg in sodium chloride 0.9% 100 mL (4 mcg/mL) infusion (premix) propofoL (DIPRIVAN) injection fentaNYL in NS (SUBLIMAZE) 20 mcg/mL infusion amLODIPine (NORVASC) tablet 5 mg phenylephrine (JORGE A-SYNEPHRINE) 40 mg in sodium chloride 0.9 % (NS) 250 mL infusion heparin injection 5,000 Units magnesium sulfate IVPB 2 g in sterile water 50 mL (premix) dexmedetomidine (PRECEDEX) 400 mcg in NS 100 mL infusion Assessment and plan #Acute hypoxic respiratory failure: #Left mainstem bronchus occlusion: # Most likely aspiration pneumonia: #COPD exacerbation - Patient admitted to OSH with evidence of volume overload, increased O2 requirements with acute decompesation yesterday, requiring optiflow. WBC 20K - CT chest from outside hospital with near complete pneumonic infiltration of left lower lobe, mildpatchy areas of pneumonia in the right lung. Near complete bronchial obstruction in the left mainstem, upper/lower segmental and subsegmental bronchi due to significant amount of debris with mediastinal and left axillary adenopathy. - continue with IV Zosyn (Multiple recent admissions) + IV doxycycline - DuoNebs 4 times daily daily plus Pulmicort nebs twice daily -Mucocyst Qhr - Aggressive pulmonary hygiene ordered -intubated 01/14 - S/P bronchoscopy showed Left lower lobe mucous plug - Pulmonology consulted, discussed with broaching machine set up operator, will continue current care in ICU - MRSA nares, urine antigens, pneumonia PCR and resp cultures ordered - IV solumedrol 40 mg daily and wean. -Legionella and Streptococcus antigen negative -Respiratory panel negative -Chest x-ray this morning personally reviewed, improvement of infiltrates -Wean BiPAP machine. -Discussed with Dr. Mathews at the bedside. -Repeat chest x-ray noted. -Repeat ABG noted -Speech evaluation. -Patient and her daughter declined PEG tube placement if she fails swallow test #Sepsis: Present at OSH 2/2 to PNA - Evidenced by tachycardia, leukocytosis, pneumonia - Continue IV abx as above -WBC 11.7 -Follow cultures and BAL #Acute on chronic HFpEF - Echo not available but per chart review from OSH, preserved EF. Patient received intermittent IV diuretics at OSH. - TTE noted -hold for diuretics for now due worsening kidney function - Strict I/O, monitor UOP - Continuous telemetry and spO2 - K> 4, Mg>2, potassium 2.9 , replace , magnesium 1.6, replace per protocol # Acute kidney injury Creatinine slightly down to 1.95 IVF, no diuretics for now Hold hydrochlothiazide Will continue to monitor, Nephrology following, discussed with Dr Cobb #Anxiety disorder: - Resume home ativan 0.5 mg qhs prn #GERD: - Resume home PPI #Normocytic anemia - Labs independently reviewed:Hbg 8.2, Hct 25.6 Continue with iron supplement Monitor H&H #HTN Continue with amlodipine and Lopresor Monitor BP #Dementia: - Continue home namenda and aricept - Delirium precautions when extubate : blinds open and lights on during day, sleep aids at night PRN in order to maintain circadian rhythm, frequent re- orientation, encourage family at bedside, limitsedating and anticholinergic medications #Mood disorder: - Continue lexapro 10 mg daily #Hx of CVA: - Continue lipitor 80 mg qhs #Pre-diabetes: - Last A1c 5.6 2 weeks ago - SSI -BG this morning 166, monitor closely while on steroid #CAD s/p CABG x 3 - Continue aspirin 325 mg daily - Continue lopressor 25mg BID daily - imdur 30 mg daily on hold #Chronic T12 burst fracture: - Noted on CT chest with mild central canal stenosis - Recommend outpatient follow-up #Debility -Consult to PT/OT ordered. -Consult to Case Management ordered. -Complicates all aspects of care. CODE STATUS patient is DNR, ok to intubate Disposition. Wean BiPAP machine. Speech reevaluation. Patient and her daughter declined PEG tube placement. Transferred from ICU to telemetry bed. If patient deteriorate needs comfort care measures only * Donnie Jeffery MD - 01/19/2025 9:04 AM EDT Consults PULMONARY AND CRITICAL CARE Consult Note Date of Service: 01/19/2025 Reason for Consult: For critical care management. Referring: MD Thony HPI: This is a 74 y.o. year old female with past medical history of Chronic Respiratory Failure on 2L NCat baseline, COPD, CVA with slight residual on word finding, question of Dementia?, HTN/HLD and DM.She presented to [facility] due to increasing shortness of breath and cough for 1-2 days.Family reports she has had some recurrent pneumonia and issues with aspiration recently. CT chest from outside hospital with near complete pneumonic infiltration of left lower lobe, mild patchy areas of pneumonia in the right lung. Near complete bronchial obstruction in the left mainstem, upper/lower se gmental and subsegmental bronchi due to significant amount of debris with mediastinal and left axillary adenopathy. WBC 17.9, Cr 1.03. Pulmonary has been consulted for ICU management and need for bronchoscopy. 01/13 I have seen and examined the patient this morning, daughter at bedside I have discussed with her about the patient condition answered all her questions and concerns, discussed with her that thepatient has left lower lobe atelectasis could be from mucous plug or aspiration, will check CT chest for evaluation. She said if the patient absolutely need bronchoscopy she is okay with intubating the patient for procedure otherwise the patient is DNR/DNI. Depending on the result of the CT scan wewill consider to do bronchoscopy. Patient was started on chest physiotherapy, flutter valve, incentive spirometry. Echo on 01/13 was done pending report. Patient on Optiflow 55 L and 50%, will titrate down as tolerated, WBC 17.1, sodium 148, fluid balance -750 mL, on doxycycline and Zosyn. 01/14 I have seen and examined the patient this morning, patient remains critically ill, intubated on mechanical ventilation FiO2 60%, was titrated this morning to 50%, will continue to titrate down as tolerated, CT scan of the chest on 01/13 showed left lower lobe consolidation suggestive of pneumonia, with obstruction of left main bronchus and left lower lobe bronchus, will do bronchoscopy today, chest x-ray on 01/14 shows bilateral interstitial infiltrates, left lower lobe atelectasis with obstruction of left main bronchus and left lower lobe bronchus, currently patient off jorge a-, blood pressure is borderline low, ABG was reviewed show metabolic alkalosis, sodium 146, creatinine 1.56, potassium 2.9, WBC 15.6, fluid balance -350 mL, on doxycycline and Zosyn. 01/15 I have seen and examined the patient this morning, patient was sedated this morning, will stop sedation this morning, patient was tried on pressure support this morning for SBT 3 times and patient become apneic, will try again afternoon, chest x-ray on 01/15 showed persistent improving left lung base pneumonia, patient had a bronchoscopy on 01/14 showed very thick mucous plugs especially onthe left lower lobe that was cleaned and removed, some mucous plugs in the right lower lobe that was cleaned and removed, BAL was sent from left lower lobe for cultures, fluid balance +102 mL, on doxycycline and Zosyn. 01/16 I have seen and examined the patient this morning, patient has been off sedation since yesterday, still very weak, when patient on pressure support take low tidal volume most of the time less than 250, patient was encouraged to take deep breaths, if the patient continue to fail SBT we will discuss with the family the options between tracheostomy and terminal extubation to DNR/DNI and comfort care, chest x-ray on 01/16 interpreted independently showed low lung volumes, bilateral interstitial infiltrate, WBC 11.2, hemoglobin 8.2, creatinine 1.95, fluid balance -500 cc, on doxycycline and Zosyn. Hypokalemia and hypomagnesemia was replaced this morning. 01/17 I have seen and examined the patient this morning, chest x-ray on 01/17 showed low lung volumes, bilateral interstitial infiltrate, blood pressure 157/67, WBC 11.8, hemoglobin 7.6, creatinine 1.43, fluid balance -660 mL, on doxycycline and Zosyn. Patient has failed SBT yesterday, will try SBTagain today, she still have low lung volumes. Her daughter at bedside I have discussed with her about patient condition and answered all her questions and concerns expressed understanding. 2 Daughters at bedside, I have discussed with them about the patient condition and answered all their questions and concerns, they expressed their understanding, I have discussed with him that patient tolerated a little bit better today pressure support, still have low tidal volume but better than and the day before, still high risk for reintubation after extubation, discussed with him that we can try to extubate to BiPAP if she did not do well we can intubate again, they said they want to give her 1 more day to see if she will get any better, we will keep her on the ventilator for today we will try SBT again tomorrow. 01/18 I have seen and examined the patient this morning, her daughters including the medical power of back pad inspector was at bedside I have discussed with them about the patient condition and answered all their questions and concerns they expressed understanding, patient today is doing a little bit better, has better tidal volumes, discussed with the daughters at bedside that we can extubate the patientto BiPAP and if she did well will continue full., If she does not well we can reintubate they said that the patient does not want to be reintubated and they do not want her to be reintubated, if she did worse they want to start comfort care. Chest x-ray today on 01/18 showed left basilar atelectasis, bronchoscopy was done before extubation, there was some thick secretions in the ET tube that was cleaned and removed, all lobes was opened there was no mucous plugs. Patient was extubated to BiPAP will keep on BiPAP for now. WBC 14.3, hemoglobin 9.3. Fluid balance +340 mL. 01/19 I have seen and examined the patient this morning, hospitalist at bedside I have discussed with him about the patient condition and plan, her daughter at bedside I have discussed with her aboutthe patient condition and plan, patient was extubated on 01/18, currently on BiPAP, will repeat ABGand if no hypercapnia will switch to nasal cannula, to continue to use BiPAP 4 hours on and 4 hours off and during the night, to continue chest physiotherapy, to continue Mucomyst for total of 3 days, chest x-ray on 01/19 interpreted independently showed left lower lobe medial lung base opacity suggestive of pneumonia, WBC 17.8, fluid balance -635 mL. On doxycycline, Zosyn. PAST MEDICAL HISTORY: No past medical history on file. PAST SURGICAL HISTORY: No past surgical history on file. No past surgical history on file. Allergies: Not on File SOCIAL HISTORY: FAMILY HISTORY: family history is not on file. Review of Systems Unable to perform ROS: Intubated Vital Signs Temp: [98.4 ??F (36.9 ??C)-99.5 ??F (37.5 ??C)] 98.6 ??F (37 ??C) Pulse: [64-104] 76 Resp: [17-41] 30 BP: (132-183)/(55-81) 178/74 FiO2 (%): [30 %-100 %] 50 % Current: Temp: 98.6 ??F (37 ??C) Pulse: 76 Resp: 30 BP: (!) 178/74 SpO2: 100 % 24 Hour: BP Min: 132/61 Max: 183/73 Temp Min: 98.4 ??F (36.9 ??C) Max: 99.5 ??F (37.5 ??C) Pulse Min: 64 Max: 104 Resp Min: 17 Max: 41 SpO2 Min: 88 % Max: 100 % Intake/Output: I/O last 3 completed shifts: In: 1040 [NG/GT:840; IV Piggyback:200] Out: 1675 [Urine:1675] Physical Exam Constitutional: Appearance: She is ill-appearing. HENT: Head: Normocephalic. Mouth/Throat: Mouth: Mucous membranes are dry. Eyes: Pupils: Pupils are equal, round, and reactive to light. Cardiovascular: Rate and Rhythm: Normal rate and regular rhythm. Pulmonary: Breath sounds: Rhonchi present. Comments: Diminshed left lung breath sounds, crackles noted Abdominal: General: Bowel sounds are normal. Musculoskeletal: General: No deformity. Skin: Capillary Refill: Capillary refill takes less than 2 seconds. Coloration: Skin is pale. Neurological: Comments: Intubated and sedated. Intake/Output: I/O last 3 completed shifts: In: 1040 [NG/GT:840; IV Piggyback:200] Out: 1675 [Urine:1675] LABS Results for orders placed or performed during the hospital encounter of 01/12/25 (from the past 24 hours) Glucose, Nova Meter Status: Abnormal Collection Time: 01/18/25 11:17 AM Result Value Ref Range POC-GLUCOSE 204 (H) 70 - 110 mg/dL Wire Spooler [id number] Glucose, Nova Meter Status: Abnormal Collection Time: 01/18/25 5:51 PM Result Value Ref Range POC-GLUCOSE 240 (H) 70 - 110 mg/dL Wire Spooler [id number] ECG 12 lead Status: None (In process) Collection Time: 01/18/25 10:06 PM Result Value Ref Range SYSTOLIC BLOOD PRESSURE (MCT) 178 mmHg DIASTOLIC BLOOD PRESSURE (MCT) 76 mmHg VENTRICULAR RATE EKG/MIN 82 BPM ATRIAL RATE (MCT) 82 BPM ND Interval 198 ms QRS-INTERVAL (MSEC) 88 ms QT Interval 668 ms QTC Interval 780 ms P Chaplin 31 degrees R AXIS (MCT) 112 degrees T Wave Chaplin 71 degrees [place] Diagnosis Normal sinus rhythm Left posterior fascicular block Anterior infarct (cited on or before 17-JAN-2025) Prolonged QT Abnormal ECG When compared with ECG of 18-JAN-2025 07:32, T wave inversion no longer evident in Inferior leads Nonspecific T wave abnormality, worse in Lateral leads Glucose, Nova Meter Status: Abnormal Collection Time: 01/19/25 12:50 AM Result Value Ref Range POC-GLUCOSE 138 (H) 70 - 110 mg/dL Wire Spooler [id number] Glucose, Nova Meter Status: Abnormal Collection Time: 01/19/25 5:17 AM Result Value Ref Range POC-GLUCOSE 155 (H) 70 - 110 mg/dL Wire Spooler [id number] CBC - Hemogram Status: Abnormal Collection Time: 01/19/25 8:41 AM Result Value Ref Range WBC 17.8 (H) 4.0 - 10.0 K/??L RBC 3.52 (L) 3.93 - 5.22 M/??L Hemoglobin 10.1 (L) 11.2 - 15.7 GM/DL Hematocrit 31.8 (L) 34.1 - 44.9 % MCV 90 79 - 95 fL MCH 28.7 25.6 - 32.2 pg MCHC 31.8 (L) 32.2 - 35.5 GM/DL RDW 16.2 (H) 11.7 - 14.4 % Platelets 328 140 - 375 K/CU MM MPV 10.7 9.4 - 12.3 fL No results found for: PT , INR , PTT CHEM7: Sodium Date Value Ref Range Status 01/18/2025 140 136 - 145 meq/L Final Potassium Date Value Ref Range Status 01/18/2025 3.7 3.4 - 5.1 meq/L Final Chloride Date Value Ref Range Status 01/18/2025 96 (L) 98 - 112 meq/L Final CO2 Date Value Ref Range Status 01/18/2025 31 (H) 22 - 29 meq/L Final BUN Date Value Ref Range Status 01/18/2025 30.1 (H) 9.8 - 20.1 mg/dL Final Creatinine Date Value Ref Range Status 01/18/2025 1.11 0.50 - 1.20 mg/dL Final eGFR (mL/min/1.73m2) Date Value Ref Range Status 01/18/2025 52 (L) >=60 mL/min/1.73m2 Final Comment: ESTIMATED GFR IS NOT ACCURATE CREATININE CLEARANCE IN PREDICTING GLOMERULAR FILTRATION RATE. ESTIMATED GFR IS NOT APPLICABLE FOR DIALYSIS PATIENTS. Calcium Date Value Ref Range Status 01/18/2025 9.0 8.4 - 10.2 mg/dL Final Lab Results Component Value Date AST 18 01/14/2025 ALT 10 01/14/2025 No results for input(s): POCGLU in the last 72 hours. No results for input(s): POCPH , POCPCO2 , POCPO2 , POCABG in the last 72 hours. Invalid input(s): POCSAT , POCART , ARTPOC Microbiology: Microbiology Results (last 7 days) Procedure Component Value Units Date/Time Pneumonia PCR Panel w/Respiratory Culture [[id number]] Collected: 01/14/251132 Order Status: Completed Specimen: BAL from Lung, Left Lower Lobe Updated: 01/16/25903 Narrative: The following orders were created for panel order Pneumonia PCR Panel w/Respiratory Culture. Procedure Abnormality Status --------- ------ Pneumonia PCR Panel[[id number]] Normal Edited Result - FINAL Respiratory Culture[[id number]] Final result Please view results for these tests on the individual orders. Respiratory Culture [[id number]] Collected: 01/14/251132 Order Status: Completed Specimen: BAL from Lung, Left Lower Lobe Updated: 01/16/25903 Result No growth Gram Stain Result Rare WBCs No organisms seen Narrative: The pneumonia PCR panel may detect organisms that do not grow on the culture. Correlate PCR, culture, and patient condition. Rule out and consider respiratory tract colonization,particularly in tracheostomy patients. AFB Culture And Stain [[id number]] Collected: 10/21/25 1133 Order Status: Completed Specimen: BAL from Lung, Left Lower Lobe Updated: 01/15/25 1413 AFB Smear No acid fast bacilli seen Pneumonia PCR Panel [[id number]] (Normal) Collected: 01/14/25 1136 Order Status: Completed Specimen: BAL from Lung, Left Lower Lobe Updated: 01/15/25 0632 ACINETOBACTER CALCOACETICUS-BAUMANNII COMPLEX Not detected ENTEROBACTER CLOACAE COMPLEX Not detected ESCHERICHIA COLI Not detected HAEMOPHILUS INFLUENZAE Not detected KLEBSIELLA AEROGENES Not detected KLEBSIELLA OXYTOCA Not detected KLEBSIELLA PNEUMONIAE GROUP Not detected MORAXELLA CATARRHALIS Not detected PROTEUS Not detected PSEUDOMONAS AERUGINOSA Not detected SERRATIA MARCESCENS Not detected STAPHYLOCOCCUS AUREUS Not detected STREPTOCOCCUS AGALACTIAE (GROUP B) Not detected STREPTOCOCCUS PNEUMONIAE Not detected STREPTOCOCCUS PYOGENES (GROUP A) Not detected CTX-M Non Applicable IMP Non Applicable KPC Non Applicable MEC A/C and MREJ Non Applicable NDM Non Applicable OXA-48-LIKE Non Applicable VIM Non Applicable CHLAMYDIA PNEUMONIAE Not detected LEGIONELLA PNEUMOPHILA Not detected MYCOPLASMA PNEUMONIAE Not detected ADENOVIRUS Not detected CORONAVIRUS (NOT COVID19) Not detected HUMAN METAPNEUMOVIRUS Not detected HUMAN RHINOVIRUS/ENTEROVIRUS Not detected INFLUENZA A Not detected INFLUENZA B Not detected PARAINFLUENZA VIRUS Not detected RESPIRATORY SYNCYTIAL VIRUS Not detected Narrative: Antimicrobial resistance can occur via multiple mechanisms. A NOT DETECTED result for a genetic marker of antimicrobial resistance does not indicate susceptibility to associated antimicrobial drugs or drug classes. A DETECTED result for a genetic marker of antimicrobial resistance cannot be definitively linked to the microorganism(s)detected. Culture is required to obtain isolates for antimicrobial susceptibility testing and FilmArray Pneumonia Panel results should be used in conjunction with culture results for determination of susceptibility or resistance. Culture Fungus W/AALIYAH Or Mayte Ink [[id number]] Collected: 01/14/25 113 Order Status: Completed Specimen: BAL from Lung, Left Lower Lobe Updated: 01/14/25 1227 AALIYAH Prep No fungal elements seen BAL: Bronchial Culture + Gram Stain [[id number]] Collected: 01/14/25 113 Order Status: Canceled Specimen: BAL from Lung, Left Lower Lobe Updated: 01/14/25 113 Strep pneumoniae urine antigen [[id number]] (Normal) Collected: 01/12/25 1033 Order Status: Completed Specimen: Urine, Unspecified Source Updated: 01/12/25 1114 Strep pneumoniae Antigen Presumptive negative for pneumococcal pneumonia - see comment Narrative: A presumptive negative result suggests no current or recent pneumococcal infection. Infection due to S. pneumoniae cannot be ruled out since the antigen present in the specimen may be below the detection limit of the test. Radiology Results (last day) Procedure Component Value Units Date/Time XR chest AP portable - In process [[id number]] Resulted: 01/19/25 0038 Order Status: Sent Updated: 01/19/25321 This result has not been signed. Information might be incomplete. No valid procedures specified. ASSESSMENT: Pulmonary Acute on Chronic Hypoxemic Respiratory Failure -CT chest from outside hospital with near complete pneumonic infiltration of left lower lobe, mild patchy areas of pneumonia in the right lung. Near complete bronchial obstruction in the left mainstem, upper/lower segmental and subsegmental bronchi due to significant amount of debris with mediastinal and left axillary adenopathy Recurrent pneumonia due to aspiration. COPD with exacerbation Former tobacco abuse Neurology: Dementia? On namenda and Aricept H/O CVA with some word finding issues Cardiology: Hypertension HLD Infectious disease: Leukocytosis Left lung pneumonia Nephrology: Stable bun/Cr CKD 3a Gastroenterology: Dysphagia likely? Recurrent aspiration pneumonia GERD Endocrine: DM Hematology: Anemia; Mild PLAN: Maintain sat >89%, patient was extubated on 01/18, currently on BiPAP, will repeat ABG and if nohypercapnia will switch to nasal cannula, to continue to use BiPAP 4 hours on and 4 hours off and during the night, to continue chest physiotherapy, to continue Mucomyst for total of 3 days, chest x-ray on 01/19 interpreted independently showed left lower lobe medial lung base opacity suggestive ofpneumonia chest x-ray on 01/18 showed low lung volumes, bilateral interstitial infiltrate patient had a bronchoscopy on 01/14 showed very thick mucous plugs especially on the left lower lobe that was cleaned and removed, some mucous plugs in the right lower lobe that was cleaned and removed, BAL was sent from left lower lobe for cultures CT scan of the chest on 01/13 showed left lower lobe consolidation suggestive of pneumonia, with obstruction of left main bronchus and left lower lobe bronchus, will do bronchoscopy today. chest x-ray on 01/14 shows bilateral interstitial infiltrates, left lower lobe atelectasis with obstruction of left main bronchus and left lower lobe bronchus Started on IV Solu-Medrol, DuoNeb. Budesonide. Patient was started on chest physiotherapy, flutter valve, incentive spirometry. Awake and alert but very weak. Keep head of bed at 30 degrees and maintain aspiration precautions. hemodynamically stable. off jorge a-. Patient became hypertensive, restarted on amlodipine 10, hydrochlorothiazide and Imdur on hold. On aspirin, atorvastatin, metoprolol. Echocardiogram: Echo was done on 01/13 pending report Hemodynamic support: Maintain MAP above 65. Antibiotics: Doxycycline and Zosyn Follow up on cultures. Nephrology was consulted. Status post albumin. Status post Lasix. Bun/Cr reviewed Monitor renal functions and electrolytes closely. Hypokalemia, hypomagnesemia, was replaced, continue to replace electrolytes per protocol. Maintain serum potassium of 4.0, magnesium of 2.0 and phosphorus of 2.5 and normal latest calcium with appropriate replacement. Monitor I&O. Avoid nephrotoxins. Nutrition: Has Corpak, started on tube feeding. Started on bowel Regimen. Hyperglycemia: Target glucose 140-180 mg/dL. SSI, monitor BS. Hold home antidiabetic medications. Monitor H&H. Transfuse as needed. Musculoskeletal: Consulted PT/OT. GI prophylaxis: Pantoprazole DVT prophylaxis: Subcu heparin Code Status: Current Code Status DNR: Interventions Limited: No Intubation Her sister at bedside, I have discussed with her about the option to do tracheostomy if the patientcontinue to fail SBT versus extubate to DNI/DNR and if do worse to do comfort care, she will discuss with the other 2 sisters and they will let us know about that. Prognosis: Poor. At risk for respiratory and cardiovascular complications. CRITICAL CARE TIME: Cumulative critical care time spent on the patient for the day excluding procedures 36 minutes. Patient seen and examined at bedside. I performed history and physical examination. I reviewed laboratory studies, imaging studies, other diagnostic studies, and inpatient medications. Chest imaging studies visualized and reviewed independent of radiologist. Case discussed with the multidisciplinary team including nurse practitioner, nurse, RT, garnetter, pharmacist, and case management during multidisciplinary round. I Dr.Hazim Latia MD, have personally evaluated the patient and performed a [id number] diagnostic evaluation on this patient; I have Obtained history, performed physical examination, reviewed laboratory studies. I have reviewed images independent of radiologist. I have actively directed the medical care, formulated diagnosis, and the plan of care. Patient requires a high complexity of decision making for assessment. Voice photographer apprentice technology (Zokem) is used for dictation of this note and sound-alike words might be erroneously placed despite reviewing the note for accuracy. Errors in dictation may reflect use of voice recognition software and not all errors in photographer apprentice may have been detected prior to signing. It may contain errors and words that were not intended to be used. Please contact the provider for errors or clarifications. * Ana Grover MD - 01/18/2025 4:36 PM EDT Subjective Patient seen and examined this morning, remain intubated, on mechanical ventilator, follow some commands. No acute events Review of Systems Unable to obtain secondary to clinical condition Objective Last Recorded Vitals Blood pressure 138/63, pulse 75, temperature 98.4 ??F (36.9 ??C), resp. rate 16, height 1.524 m (5'), weight 48.1 kg (106 lb 0.7 oz), SpO2 96%. Physical Exam Head atraumatic normal cephalic Constitutional intubated , chronically ill looking appearing Respiratory decreased air entry bilateral Cardiovascular S1-S2 no murmur gallops or rubs appreciated Labs: Results for orders placed or performed during the hospital encounter of 01/12/25 (from the past 24 hours) Glucose, Nova Meter Status: Abnormal Collection Time: 01/19/25 5:21 PM Result Value Ref Range POC-GLUCOSE 230 (H) 70 - 110 mg/dL Wire Spooler [id number] Glucose, Nova Meter Status: Abnormal Collection Time: 01/19/25 11:42 PM Result Value Ref Range POC-GLUCOSE 164 (H) 70 - 110 mg/dL Wire Spooler [id number] Glucose, Nova Meter Status: Abnormal Collection Time: 01/20/25 5:03 AM Result Value Ref Range POC-GLUCOSE 204 (H) 70 - 110 mg/dL Wire Spooler [id number] CBC with automated diff Status: Abnormal Collection Time: 01/20/25 5:12 AM Result Value Ref Range WBC 13.2 (H) 4.0 - 10.0 K/??L RBC 3.27 (L) 3.93 - 5.22 M/??L Hemoglobin 9.5 (L) 11.2 - 15.7 GM/DL Hematocrit 29.8 (L) 34.1 - 44.9 % MCV 91 79 - 95 fL MCH 29.1 25.6 - 32.2 pg MCHC 31.9 (L) 32.2 - 35.5 GM/DL RDW 15.5 (H) 11.7 - 14.4 % Platelets 254 140 - 375 K/CU MM MPV 11.0 9.4 - 12.3 fL % Neutros 75 (H) 34 - 71 % % Lymphs 16 (L) 19 - 52 % % Monos 7 5 - 13 % % Eos 0.2 (L) 1.0 - 6.0 % % Baso 0 0 - 1 % NRBC Absolute <0.01 0 - 0.012 K/ul # Neutros 9.95 (H) 1.56 - 6.13 K/??L # Lymphs 2.06 1.18 - 3.74 K/??L # Monos 0.98 (H) 0.24 - 0.86 K/??L # Eos <0.03 (L) 0.04 - 0.36 K/ L # Baso <0.03 0.01 - 0.08 K/ L % Imm Grans 1.30 (H) 0.01 - 0.43 % # IG 0.17 (H) 0.00 - 0.03 K/uL Basic Metabolic Panel Status: Abnormal Collection Time: 01/20/25 5:18 AM Result Value Ref Range Sodium 136 136 - 145 meq/L Potassium 3.6 3.4 - 5.1 meq/L CO2 18 (L) 22 - 29 meq/L Chloride 104 98 - 112 meq/L Glucose 199 (H) 82 - 115 mg/dL BUN 28.0 (H) 9.8 - 20.1 mg/dL Creatinine 0.90 0.50 - 1.20 mg/dL BUN/Creatinine 31 (H) 8 - 20 Calcium 8.9 8.4 - 10.2 mg/dL Anion Gap 18 (H) 4 - 12 eGFR (mL/min/1.73m2) 67 >=60 mL/min/1.73m2 Osmolality Calc 283.0 mOsm/kg Magnesium Status: Normal Collection Time: 01/20/25 5:18 AM Result Value Ref Range Magnesium 1.7 1.6 - 2.6 mg/dL Phosphorus Status: Normal Collection Time: 01/20/25 5:18 AM Result Value Ref Range Phosphorus 3.0 2.5 - 4.5 mg/dL Glucose, Nova Meter Status: Abnormal Collection Time: 01/20/25 10:37 AM Result Value Ref Range POC-GLUCOSE 201 (H) 70 - 110 mg/dL Wire Spooler [id number] Glucose, Nova Meter Status: Abnormal Collection Time: 01/20/25 3:59 PM Result Value Ref Range POC-GLUCOSE 269 (H) 70 - 110 mg/dL Wire Spooler [id number] XR chest AP portable Narrative: PORTABLE CHEST HISTORY: Shortness of breath. COMPARISON: PCXR from the previous day. FINDINGS: The heart is stable in size. The patient is status post CABG. There is no pneumothorax. There is left basilar airspace disease and a small left effusion. Impression: Small left effusion with left basilar airspace disease likely representing pneumonia. Images reviewed, interpreted, and dictated by Dr. Juan Bonilla. Transcribed by Xavi Arroyo PA-C. Assessment and plan #Acute hypoxic respiratory failure: #Left mainstem bronchus occlusion: #Concern for aspiration pneumonia: #COPD exacerbation - Patient admitted to OSH with evidence of volume overload, increased O2 requirements with acute decompesation yesterday, requiring optiflow. WBC 20K - CT chest from outside hospital with near complete pneumonic infiltration of left lower lobe, mildpatchy areas of pneumonia in the right lung. Near complete bronchial obstruction in the left mainstem, upper/lower segmental and subsegmental bronchi due to significant amount of debris with mediastinal and left axillary adenopathy. - continue with IV Zosyn (Multiple recent admissions) + IV doxycycline - DuoNebs 4 times daily daily plus Pulmicort nebs twice daily -Mucocyst Qhr - Aggressive pulmonary hygiene ordered -intubated 01/14, underwent bronchoscopy showed Left lower lobe mucous plug - Pulmonology consulted, discussed with broaching machine set up operator, will continue current care in ICU - MRSA nares, urine antigens, pneumonia PCR and resp cultures ordered - IV solumedrol 40 mg daily -Labs this morning personally interpreted, -Legionella and Streptococcus antigen negative -Respiratory panel negative -Chest x-ray this morning personally reviewed, improvement of infiltrates #Sepsis: Present at OSH 2/2 to PNA - Evidenced by tachycardia, leukocytosis, pneumonia - Continue IV abx as above -Follow blood cultures remain negative and BAL #Acute on chronic HFpEF - Echo not available but per chart review from OSH, preserved EF. Patient received intermittent IV diuretics at OSH. - TTE noted -hold for diuretics for now due worsening kidney function - Strict I/O, monitor UOP - Continuous telemetry and spO2 - K> 4, Mg>2 replace per protocol # Acute kidney injury Creatinine improving IVF, no diuretics for now Hold hydrochlothiazide Will continue to monitor, Nephrology following, discussed with Dr Cobb #Anxiety disorder: - Resume home ativan 0.5 mg qhs prn #GERD: - Resume home PPI #Normocytic anemia - Labs independently reviewed:Hbg 8.2, Hct 25.6 Continue with iron supplement Monitor H&H #HTN Continue with amlodipine and Lopresor Monitor BP #Dementia: - Continue home namenda and aricept - Delirium precautions when extubate : blinds open and lights on during day, sleep aids at night PRN in order to maintain circadian rhythm, frequent re- orientation, encourage family at bedside, limitsedating and anticholinergic medications #Mood disorder: - Continue lexapro 10 mg daily #Hx of CVA: - Continue lipitor 80 mg qhs #Pre-diabetes: - Last A1c 5.6 2 weeks ago - SSI -BG this morning 166, monitor closely while on steroid #CAD s/p CABG x 3 - Continue aspirin 325 mg daily - Continue lopressor 25mg BID daily - imdur 30 mg daily on hold #Chronic T12 burst fracture: - Noted on CT chest with mild central canal stenosis - Recommend outpatient follow-up #Debility -Consult to PT/OT ordered. -Consult to Case Management ordered. -Complicates all aspects of care. CODE STATUS patient is DNR, ok to intubate Total amount of critical care time spent was 35 minutes not counting procedures performed. This time included high complexity decision making to assess and treat vital organ system failure in this patient who has impairment of one or more vital organ systems such that there is a high probability ofimminent or life threatening deterioration of the patient??s condition. Failure to initiate the above interventions on an urgent basis would likely result in sudden, clinically significant or life-threatening deterioration in the patient's condition. The patient required my highest level of preparedness to intervene and I personally spent this critical care time directly and personally managing the patient. This critical care time included obtaining a history; examining the patient; vitals monitoring including pulse oximetry; ordering and review of studies; arranging treatment and plan management; evaluation of patient's response to treatment; re-assessments; and any discussions with familymembers, other providers and ICU staff. * Chanel Monroe RD - 01/18/2025 11:[address] Check On 01/18: Pt extubated this am, currently on Bipap. Spoke with Puljose MORGAN, plan to hold TF while pt on Bipap and once off can restart. Recommend GAS GOLF CART REPAIRER eval as appropriate. Drips: none Estimated Needs: 2244-4975 kcal (25-30 kcal/kg) 58 gm pro (1.2 gm/kg) Nutrition Monitoring and Goals: -Per Miles MORGAN, once pt off Bipap, restart Glucerna 1.5 @20 ml/hr, AAT to goal @40 ml/hr (provides 1320 kcal, 73 gm pro). FW per MD -- requesting 30 ml/hr. Goal: meet >80% of est needs (goal progressing) -Recommend diet advancement per GAS GOLF CART REPAIRER (+regular with ONS prn). Goal: safe PO - Obtain wt 2x weekly Goal: avoid involuntary significant wt change - Monitor elytes, recommend replacing prn. Pt at risk for RFS Goal: wnls Nutrition Risk Level: High Risk Chanel Monroe RDN, LD * Chanel Cobb MD - 01/18/2025 10:07 AM EDT Subjective History of Present Illness: Margarita Stone is a 74 y.o. female with medical history of Chronic Respiratory Failure on 2L NC at baseline, COPD, CVA with slight residual on word finding, question of Dementia?, HTN/HLD and DM. 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 Near complete bronchial obstruction in the left mainstem, upper/lower segmental and subsegmental bronchi due to significant amount of debris with mediastinal and left axillary adenopathy. WBC 17.9, Cr 1.03. Patient was admitted on 01/12 and was maintained on IV antibiotics with IV doxycycline and Zosyn. Patient has been maintained on IV Lasix Echo on 01/13 was unremarkable Patient had a bronchoscopy on 01/14 showed very thick mucous plugs especially on the left lower lobe that was cleaned and removed, some mucous plugs in the right lower lobe that was cleaned and removed. Base creatinine 1.03 and today 2.23 Still intubated ,no new issues Review of Systems Unable to perform ROS: Intubated Objective Last Recorded Vitals Blood pressure (!) 142/64, pulse 104, temperature 98.8 ??F (37.1 ??C), resp. rate 19, height 1.524 m (5'), weight 48.1 kg (106 lb 0.7 oz), SpO2 99%. Physical Exam Constitutional: Comments: Intubated HENT: Head: Normocephalic and atraumatic. Cardiovascular: Rate and Rhythm: Normal rate and regular rhythm. Heart sounds: Normal heart sounds. Abdominal: General: Abdomen is flat. Palpations: Abdomen is soft. Skin: General: Skin is warm and dry. Labs: Results for orders placed or performed during the hospital encounter of 01/12/25 (from the past 24 hours) Glucose, Nova Meter Status: Abnormal Collection Time: 01/17/25 11:38 AM Result Value Ref Range POC-GLUCOSE 168 (H) 70 - 110 mg/dL Wire Spooler [id number] Glucose, Nova Meter Status: Abnormal Collection Time: 01/17/25 5:40 PM Result Value Ref Range POC-GLUCOSE 316 (H) 70 - 110 mg/dL Wire Spooler [id number] Glucose, Nova Meter Status: Abnormal Collection Time: 01/18/25 12:22 AM Result Value Ref Range POC-GLUCOSE 170 (H) 70 - 110 mg/dL Wire Spooler [id number] Magnesium Status: Normal Collection Time: 01/18/25 4:29 AM Result Value Ref Range Magnesium 1.6 1.6 - 2.6 mg/dL CBC - Hemogram (SJ-BKR) Status: Abnormal Collection Time: 01/18/25 4:29 AM Result Value Ref Range WBC 14.3 (H) 4.0 - 10.0 K/??L RBC 3.19 (L) 3.93 - 5.22 M/??L Hemoglobin 9.3 (L) 11.2 - 15.7 GM/DL Hematocrit 28.3 (L) 34.1 - 44.9 % MCV 89 79 - 95 fL MCH 29.2 25.6 - 32.2 pg MCHC 32.9 32.2 - 35.5 GM/DL RDW 15.9 (H) 11.7 - 14.4 % Platelets 250 140 - 375 K/CU MM MPV 11.0 9.4 - 12.3 fL Basic Metabolic Panel Status: Abnormal Collection Time: 01/18/25 4:29 AM Result Value Ref Range Sodium 140 136 - 145 meq/L Potassium 3.7 3.4 - 5.1 meq/L CO2 31 (H) 22 - 29 meq/L Chloride 96 (L) 98 - 112 meq/L Glucose 156 (H) 82 - 115 mg/dL BUN 30.1 (H) 9.8 - 20.1 mg/dL Creatinine 1.11 0.50 - 1.20 mg/dL BUN/Creatinine 27 (H) 8 - 20 Calcium 9.0 8.4 - 10.2 mg/dL Anion Gap 17 (H) 4 - 12 eGFR (mL/min/1.73m2) 52 (L) >=60 mL/min/1.73m2 Osmolality Calc 288.8 mOsm/kg Glucose, Nova Meter Status: Abnormal Collection Time: 01/18/25 6:09 AM Result Value Ref Range POC-GLUCOSE 188 (H) 70 - 110 mg/dL Wire Spooler [id number] ECG 12 lead Status: None (In process) Collection Time: 01/18/25 7:32 AM Result Value Ref Range SYSTOLIC BLOOD PRESSURE (MCT) 149 mmHg DIASTOLIC BLOOD PRESSURE (MCT) 66 mmHg VENTRICULAR RATE EKG/MIN 88 BPM ATRIAL RATE (MCT) 88 BPM ND Interval 172 ms QRS-INTERVAL (MSEC) 84 ms QT Interval 622 ms QTC Interval 752 ms P Chaplin 18 degrees R AXIS (MCT) 98 degrees T Wave Chaplin 46 degrees [place] Diagnosis Normal sinus rhythm Right atrial enlargement Rightward axis Anterior infarct (cited on or before 17-JAN-2025) ST & T wave abnormality, consider inferior ischemia Prolonged QT Abnormal ECG When compared with ECG of 17-JAN-2025 09:14, Significant changes have occurred XR chest AP portable Narrative: PORTABLE CHEST HISTORY: Intubation. COMPARISON: PCXR from the previous day. FINDINGS: The heart is stable in size. There are chronic changes in both lungs. There is airspace opacity and atelectasis of the medial left base. There is no pneumothorax. The support devices are in good position. Impression: Medial left basilar opacity. Images reviewed, interpreted, and dictated by Dr. Clint Gaspar. Transcribed by Xavi Arroyo PA-C. Assessment 1. Stage II acute kidney injury likely multifactorial ischemic and toxic ATN secondary to underlying infection, contrast exposure, IV diuresis etc. cannot rule out associated AIN 2. Anemia likely multifactorial 3. Hypertension 4. Left lung pneumonia 5. Acute metabolic encephalopathy/history of CVA 6. Acute on chronic hypoxic respiratory failure 7. COPD exacerbation/history of recurrent aspiration pneumonia Plan - Base kidney function was normal at presentation,improved -Avoid nephrotoxins -Strict intake and output -Bladder scan as needed -Keep MAP above 65 and hemoglobin above 7 -Echocardiogram was unremarkable -Renally dose medications and antibiotics -Monitor kidney function electrolytes closely -No need for BACK PAD INSPECTOR at present time -Loop diuretics as needed -Thanks for consultation [facility] [address] [place] [address] [address] [place], [place], [address] Phone #[phone] Fax #[phone] High complex case CC time of 65 min ET ATTENDANT ET ATTENDANT * Donnie Jeffery MD - 01/18/2025 8:58 AM EDT Consults PULMONARY AND CRITICAL CARE Consult Note Date of Service: 01/18/2025 Reason for Consult: For critical care management. Referring: MD Thony HPI: This is a 74 y.o. year old female with past medical history of Chronic Respiratory Failure on 2L NCat baseline, COPD, CVA with slight residual on word finding, question of Dementia?, HTN/HLD and DM.She presented to [facility] due to increasing shortness of breath and cough for 1-2 days.Family reports she has had some recurrent pneumonia and issues with aspiration recently. CT chest from outside hospital with near complete pneumonic infiltration of left lower lobe, mild patchy areas of pneumonia in the right lung. Near complete bronchial obstruction in the left mainstem, upper/lower se gmental and subsegmental bronchi due to significant amount of debris with mediastinal and left axillary adenopathy. WBC 17.9, Cr 1.03. Pulmonary has been consulted for ICU management and need for bronchoscopy. 01/13 I have seen and examined the patient this morning, daughter at bedside I have discussed with her about the patient condition answered all her questions and concerns, discussed with her that thepatient has left lower lobe atelectasis could be from mucous plug or aspiration, will check CT chest for evaluation. She said if the patient absolutely need bronchoscopy she is okay with intubating the patient for procedure otherwise the patient is DNR/DNI. Depending on the result of the CT scan wewill consider to do bronchoscopy. Patient was started on chest physiotherapy, flutter valve, incentive spirometry. Echo on 01/13 was done pending report. Patient on Optiflow 55 L and 50%, will titrate down as tolerated, WBC 17.1, sodium 148, fluid balance -750 mL, on doxycycline and Zosyn. 01/14 I have seen and examined the patient this morning, patient remains critically ill, intubated on mechanical ventilation FiO2 60%, was titrated this morning to 50%, will continue to titrate down as tolerated, CT scan of the chest on 01/13 showed left lower lobe consolidation suggestive of pneumonia, with obstruction of left main bronchus and left lower lobe bronchus, will do bronchoscopy today, chest x-ray on 01/14 shows bilateral interstitial infiltrates, left lower lobe atelectasis with obstruction of left main bronchus and left lower lobe bronchus, currently patient off jorge a-, blood pressure is borderline low, ABG was reviewed show metabolic alkalosis, sodium 146, creatinine 1.56, potassium 2.9, WBC 15.6, fluid balance -350 mL, on doxycycline and Zosyn. 01/15 I have seen and examined the patient this morning, patient was sedated this morning, will stop sedation this morning, patient was tried on pressure support this morning for SBT 3 times and patient become apneic, will try again afternoon, chest x-ray on 01/15 showed persistent improving left lung base pneumonia, patient had a bronchoscopy on 01/14 showed very thick mucous plugs especially onthe left lower lobe that was cleaned and removed, some mucous plugs in the right lower lobe that was cleaned and removed, BAL was sent from left lower lobe for cultures, fluid balance +102 mL, on doxycycline and Zosyn. 01/16 I have seen and examined the patient this morning, patient has been off sedation since yesterday, still very weak, when patient on pressure support take low tidal volume most of the time less than 250, patient was encouraged to take deep breaths, if the patient continue to fail SBT we will discuss with the family the options between tracheostomy and terminal extubation to DNR/DNI and comfort care, chest x-ray on 01/16 interpreted independently showed low lung volumes, bilateral interstitial infiltrate, WBC 11.2, hemoglobin 8.2, creatinine 1.95, fluid balance -500 cc, on doxycycline and Zosyn. Hypokalemia and hypomagnesemia was replaced this morning. 01/17 I have seen and examined the patient this morning, chest x-ray on 01/17 showed low lung volumes, bilateral interstitial infiltrate, blood pressure 157/67, WBC 11.8, hemoglobin 7.6, creatinine 1.43, fluid balance -660 mL, on doxycycline and Zosyn. Patient has failed SBT yesterday, will try SBTagain today, she still have low lung volumes. Her daughter at bedside I have discussed with her about patient condition and answered all her questions and concerns expressed understanding. 2 Daughters at bedside, I have discussed with them about the patient condition and answered all their questions and concerns, they expressed their understanding, I have discussed with him that patient tolerated a little bit better today pressure support, still have low tidal volume but better than y and the day before, still high risk for reintubation after extubation, discussed with him that we can try to extubate to BiPAP if she did not do well we can intubate again, they said they want to give her 1 more day to see if she will get any better, we will keep her on the ventilator for today we will try SBT again tomorrow. 01/18 I have seen and examined the patient this morning, her daughters including the medical power of back pad inspector was at bedside I have discussed with them about the patient condition and answered all their questions and concerns they expressed understanding, patient today is doing a little bit better, has better tidal volumes, discussed with the daughters at bedside that we can extubate the patientto BiPAP and if she did well will continue full., If she does not well we can reintubate they said that the patient does not want to be reintubated and they do not want her to be reintubated, if she did worse they want to start comfort care. Chest x-ray today on 01/18 showed left basilar atelectasis, bronchoscopy was done before extubation, there was some thick secretions in the ET tube that was cleaned and removed, all lobes was opened there was no mucous plugs. Patient was extubated to BiPAP will keep on BiPAP for now. WBC 14.3, hemoglobin 9.3. Fluid balance +340 mL. PAST MEDICAL HISTORY: No past medical history on file. PAST SURGICAL HISTORY: No past surgical history on file. No past surgical history on file. Allergies: Not on File SOCIAL HISTORY: FAMILY HISTORY: family history is not on file. Review of Systems Unable to perform ROS: Intubated Vital Signs Temp: [98.6 ??F (37 ??C)-99.5 ??F (37.5 ??C)] 98.8 ??F (37.1 ??C) Pulse: [70-104] 90 Resp: [11-24] 19 BP: (132-195)/(60-81) 152/67 FiO2 (%): [30 %] 30 % Current: Temp: 98.8 ??F (37.1 ??C) Pulse: 90 Resp: 19 BP: (!) 152/67 SpO2: 99 % 24 Hour: BP Min: 132/60 Max: 195/81 Temp Min: 98.6 ??F (37 ??C) Max: 99.5 ??F (37.5 ??C) Pulse Min: 70 Max: 104 Resp Min: 11 Max: 24 SpO2 Min: 96 % Max: 99 % Intake/Output: I/O last 3 completed shifts: In: 1770 [NG/GT:1570; IV Piggyback:200] Out: 2650 [Urine:2650] Physical Exam Constitutional: Appearance: She is ill-appearing. HENT: Head: Normocephalic. Mouth/Throat: Mouth: Mucous membranes are dry. Eyes: Pupils: Pupils are equal, round, and reactive to light. Cardiovascular: Rate and Rhythm: Normal rate and regular rhythm. Pulmonary: Breath sounds: Rhonchi present. Comments: Diminshed left lung breath sounds, crackles noted Abdominal: General: Bowel sounds are normal. Musculoskeletal: General: No deformity. Skin: Capillary Refill: Capillary refill takes less than 2 seconds. Coloration: Skin is pale. Neurological: Comments: Intubated and sedated. Intake/Output: I/O last 3 completed shifts: In: 1770 [NG/GT:1570; IV Piggyback:200] Out: 2650 [Urine:2650] LABS Results for orders placed or performed during the hospital encounter of 01/12/25 (from the past 24 hours) ECG 12 lead Status: None Collection Time: 01/17/25 9:14 AM Result Value Ref Range SYSTOLIC BLOOD PRESSURE (MCT) 158 mmHg DIASTOLIC BLOOD PRESSURE (MCT) 71 mmHg VENTRICULAR RATE EKG/MIN 131 BPM ATRIAL RATE (MCT) 131 BPM ND Interval 104 ms QRS-INTERVAL (MSEC) 88 ms QT Interval 394 ms QTC Interval 581 ms R AXIS (MCT) 121 degrees T Wave Chaplin 104 degrees [place] Diagnosis Sinus tachycardia with short ND with premature atrial complexes Left posterior fascicular block Anterior infarct , age undetermined Abnormal ECG When compared with ECG of 15-JAN-2025 09:08, premature atrial complexes are now present Left posterior fascicular block is now present Anterior infarct is now present T wave inversion no longer evident in Inferior leads T wave inversion less evident in Lateral leads Confirmed by Naren Walsh ([id number]) on 01/17/2025 3:59:19 PM Glucose, Nova Meter Status: Abnormal Collection Time: 01/17/25 11:38 AM Result Value Ref Range POC-GLUCOSE 168 (H) 70 - 110 mg/dL Wire Spooler [id number] Glucose, Nova Meter Status: Abnormal Collection Time: 01/17/25 5:40 PM Result Value Ref Range POC-GLUCOSE 316 (H) 70 - 110 mg/dL Wire Spooler [id number] Glucose, Nova Meter Status: Abnormal Collection Time: 01/18/25 12:22 AM Result Value Ref Range POC-GLUCOSE 170 (H) 70 - 110 mg/dL Wire Spooler [id number] Magnesium Status: Normal Collection Time: 01/18/25 4:29 AM Result Value Ref Range Magnesium 1.6 1.6 - 2.6 mg/dL CBC - Hemogram (SJ-BKR) Status: Abnormal Collection Time: 01/18/25 4:29 AM Result Value Ref Range WBC 14.3 (H) 4.0 - 10.0 K/??L RBC 3.19 (L) 3.93 - 5.22 M/??L Hemoglobin 9.3 (L) 11.2 - 15.7 GM/DL Hematocrit 28.3 (L) 34.1 - 44.9 % MCV 89 79 - 95 fL MCH 29.2 25.6 - 32.2 pg MCHC 32.9 32.2 - 35.5 GM/DL RDW 15.9 (H) 11.7 - 14.4 % Platelets 250 140 - 375 K/CU MM MPV 11.0 9.4 - 12.3 fL Basic Metabolic Panel Status: Abnormal Collection Time: 01/18/25 4:29 AM Result Value Ref Range Sodium 140 136 - 145 meq/L Potassium 3.7 3.4 - 5.1 meq/L CO2 31 (H) 22 - 29 meq/L Chloride 96 (L) 98 - 112 meq/L Glucose 156 (H) 82 - 115 mg/dL BUN 30.1 (H) 9.8 - 20.1 mg/dL Creatinine 1.11 0.50 - 1.20 mg/dL BUN/Creatinine 27 (H) 8 - 20 Calcium 9.0 8.4 - 10.2 mg/dL Anion Gap 17 (H) 4 - 12 eGFR (mL/min/1.73m2) 52 (L) >=60 mL/min/1.73m2 Osmolality Calc 288.8 mOsm/kg Glucose, Nova Meter Status: Abnormal Collection Time: 01/18/25 6:09 AM Result Value Ref Range POC-GLUCOSE 188 (H) 70 - 110 mg/dL Wire Spooler [id number] ECG 12 lead Status: None (In process) Collection Time: 01/18/25 7:32 AM Result Value Ref Range SYSTOLIC BLOOD PRESSURE (MCT) 149 mmHg DIASTOLIC BLOOD PRESSURE (MCT) 66 mmHg VENTRICULAR RATE EKG/MIN 88 BPM ATRIAL RATE (MCT) 88 BPM ND Interval 172 ms QRS-INTERVAL (MSEC) 84 ms QT Interval 622 ms QTC Interval 752 ms P Chaplin 18 degrees R AXIS (MCT) 98 degrees T Wave Chaplin 46 degrees [place] Diagnosis Normal sinus rhythm Right atrial enlargement Rightward axis Anterior infarct (cited on or before 17-JAN-2025) ST & T wave abnormality, consider inferior ischemia Prolonged QT Abnormal ECG When compared with ECG of 17-JAN-2025 09:14, Significant changes have occurred No results found for: PT , INR , PTT CHEM7: Sodium Date Value Ref Range Status 01/18/2025 140 136 - 145 meq/L Final Potassium Date Value Ref Range Status 01/18/2025 3.7 3.4 - 5.1 meq/L Final Chloride Date Value Ref Range Status 01/18/2025 96 (L) 98 - 112 meq/L Final CO2 Date Value Ref Range Status 01/18/2025 31 (H) 22 - 29 meq/L Final BUN Date Value Ref Range Status 01/18/2025 30.1 (H) 9.8 - 20.1 mg/dL Final Creatinine Date Value Ref Range Status 01/18/2025 1.11 0.50 - 1.20 mg/dL Final eGFR (mL/min/1.73m2) Date Value Ref Range Status 01/18/2025 52 (L) >=60 mL/min/1.73m2 Final Comment: ESTIMATED GFR IS NOT ACCURATE CREATININE CLEARANCE IN PREDICTING GLOMERULAR FILTRATION RATE. ESTIMATED GFR IS NOT APPLICABLE FOR DIALYSIS PATIENTS. Calcium Date Value Ref Range Status 01/18/2025 9.0 8.4 - 10.2 mg/dL Final Lab Results Component Value Date AST 18 01/14/2025 ALT 10 01/14/2025 No results for input(s): POCGLU in the last 72 hours. No results for input(s): POCPH , POCPCO2 , POCPO2 , POCABG in the last 72 hours. Invalid input(s): POCSAT , POCART , ARTPOC Microbiology: Microbiology Results (last 7 days) Procedure Component Value Units Date/Time Pneumonia PCR Panel w/Respiratory Culture [[id number]] Collected: 01/14/25 1133 Order Status: Completed Specimen: BAL from Lung, Left Lower Lobe Updated: 01/16/25 0904 Narrative: The following orders were created for panel order Pneumonia PCR Panel w/Respiratory Culture. Procedure Abnormality Status --------- ------ Pneumonia PCR Panel[[id number]] Normal Edited Result - FINAL Respiratory Culture[[id number]] Final result Please view results for these tests on the individual orders. Respiratory Culture [[id number]] Collected: 01/14/251132 Order Status: Completed Specimen: BAL from Lung, Left Lower Lobe Updated: 01/16/25 0904 Result No growth Gram Stain Result Rare WBCs No organisms seen Narrative: The pneumonia PCR panel may detect organisms that do not grow on the culture. Correlate PCR, culture, and patient condition. Rule out and consider respiratory tract colonization,particularly in tracheostomy patients. AFB Culture And Stain [[id number]] Collected: 01/14/251132 Order Status: Completed Specimen: BAL from Lung, Left Lower Lobe Updated: 01/15/25 1413 AFB Smear No acid fast bacilli seen Pneumonia PCR Panel [[id number]] (Normal) Collected: 01/14/251135 Order Status: Completed Specimen: BAL from Lung, Left Lower Lobe Updated: 01/15/25 0632 ACINETOBACTER CALCOACETICUS-BAUMANNII COMPLEX Not detected ENTEROBACTER CLOACAE COMPLEX Not detected ESCHERICHIA COLI Not detected HAEMOPHILUS INFLUENZAE Not detected KLEBSIELLA AEROGENES Not detected KLEBSIELLA OXYTOCA Not detected KLEBSIELLA PNEUMONIAE GROUP Not detected MORAXELLA CATARRHALIS Not detected PROTEUS Not detected PSEUDOMONAS AERUGINOSA Not detected SERRATIA MARCESCENS Not detected STAPHYLOCOCCUS AUREUS Not detected STREPTOCOCCUS AGALACTIAE (GROUP B) Not detected STREPTOCOCCUS PNEUMONIAE Not detected STREPTOCOCCUS PYOGENES (GROUP A) Not detected CTX-M Non Applicable IMP Non Applicable KPC Non Applicable MEC A/C and MREJ Non Applicable NDM Non Applicable OXA-48-LIKE Non Applicable VIM Non Applicable CHLAMYDIA PNEUMONIAE Not detected LEGIONELLA PNEUMOPHILA Not detected MYCOPLASMA PNEUMONIAE Not detected ADENOVIRUS Not detected CORONAVIRUS (NOT COVID19) Not detected HUMAN METAPNEUMOVIRUS Not detected HUMAN RHINOVIRUS/ENTEROVIRUS Not detected INFLUENZA A Not detected INFLUENZA B Not detected PARAINFLUENZA VIRUS Not detected RESPIRATORY SYNCYTIAL VIRUS Not detected Narrative: Antimicrobial resistance can occur via multiple mechanisms. A NOT DETECTED result for a genetic marker of antimicrobial resistance does not indicate susceptibility to associated antimicrobial drugs or drug classes. A DETECTED result for a genetic marker of antimicrobial resistance cannot be definitively linked to the microorganism(s)detected. Culture is required to obtain isolates for antimicrobial susceptibility testing and FilmArray Pneumonia Panel results should be used in conjunction with culture results for determination of susceptibility or resistance. Culture Fungus W/AALIYAH Or Mayte Ink [[id number]] Collected: 10/21/25 1133 Order Status: Completed Specimen: BAL from Lung, Left Lower Lobe Updated: 01/14/25 1227 AALIYAH Prep No fungal elements seen BAL: Bronchial Culture + Gram Stain [[id number]] Collected: 01/14/25 1133 Order Status: Canceled Specimen: BAL from Lung, Left Lower Lobe Updated: 01/14/25 1133 Strep pneumoniae urine antigen [[id number]] (Normal) Collected: 01/12/25 1033 Order Status: Completed Specimen: Urine, Unspecified Source Updated: 01/12/25 1114 Strep pneumoniae Antigen Presumptive negative for pneumococcal pneumonia - see comment Narrative: A presumptive negative result suggests no current or recent pneumococcal infection. Infection due to S. pneumoniae cannot be ruled out since the antigen present in the specimen may be below the detection limit of the test. Pneumonia PCR Panel w/Respiratory Culture [[id number]] Collected: 01/12/25606 Order Status: Completed Specimen: Sputum from Expectorated Updated: 01/12/25 0847 Narrative: The following orders were created for panel order Pneumonia PCR Panel w/Respiratory Culture. Procedure Abnormality Status --------- ------ Pneumonia PCR Panel[[id number]] Respiratory Culture[[id number]] Final result Please view results for these tests on the individual orders. Respiratory Culture [[id number]] Collected: 01/12/25606 Order Status: Completed Specimen: Sputum from Expectorated Updated: 01/12/25 0847 Result Sputum unsatisfactory for culture. Microscopic evaluation indicates significant upper respiratory contamination with epithelial cells.Submit another specimen. Gram Stain Result >25 Epithelial cells/LPF Narrative: Sputum rejection called to Respiratory Care Team Pneumonia PCR Panel [[id number]] Collected: 01/12/25606 Order Status: Canceled Specimen: Sputum from Expectorated Updated: 01/12/25 0611 MRSA Screen [[id number]] (Normal) Collected: 01/12/25328 Order Status: Completed Specimen: Nasal from Nares Updated: 01/12/25 0532 MRSA by PCR [facility] MRSA Not Detected by PCR Respiratory Panel [[id number]] (Normal) Collected: 01/12/25328 Order Status: Completed Specimen: Nasopharyngeal Swab Updated: 01/12/25 0449 ADENOVIRUS Not detected CORONAVIRUS 229E Not detected CORONAVIRUS HKU1 Not detected CORONAVIRUS NL63 Not detected CORONAVIRUS OC43 Not detected SARS-COV2/RT-PCR Not Detected HUMAN METAPNEUMOVIRUS Not detected HUMAN RHINOVIRUS/ENTEROVIRUS Not detected INFLUENZA A Not detected INFLUENZA B Not detected PARAINFLUENZA VIRUS 1 Not detected PARAINFLUENZA VIRUS 2 Not detected PARAINFLUENZA VIRUS 3 Not detected PARAINFLUENZA VIRUS 4 Not detected RESPIRATORY SYNCYTIAL VIRUS Not detected BORDETELLA PARAPERTUSSIS Not detected BORDETELLA PERTUSSIS Not detected CHLAMYDIA PNEUMONIAE Not detected MYCOPLASMA PNEUMONIAE Not detected Narrative: Testing was performed with RT-PCR methodology using the Biomeme Respiratory Panel 2.1 which has [employer]da approval for SARS-CoV-2 testing. Negative results do not preclude infection with the SARS-CoV-2 virus and should not be used as the sole basis of patient treatment or public health decisions.Negative results must be considered in the context of an individual's recent exposures, history, and presence of clinical signs/symptoms. Follow-up testing should be performed according to the current CDC recommendations. Other viruses and bacteria not targeted by this PCR panel cannot be excluded; therefore clinical correlation and follow up of serology, culture results, and other molecular studies is required. The results are not intended to be used as the sole means for clinical diagnosis or patient management decisions. This sample was tested at the [facility] using the CREATIV.COMArray Respiratory Panel. It is FDA cleared and has been verified and approved by the [facility] for clinical use on nasopharyngeal swab specimens. The performance of the FilmArray RP has not been established in individuals who received influenza vaccine. Recent administration of a nasal influenza vaccine may cause false positive results for Influenza A and/or Influenza B. Radiology Results (last day) Procedure Component Value Units Date/Time XR chest AP portable [[id number]] Collected: 01/18/25 075 Order Status: Completed Updated: 01/18/25833 Narrative: PORTABLE CHEST HISTORY: Intubation. COMPARISON: PCXR from the previous day. FINDINGS: The heart is stable in size. There are chronic changes in both lungs. There is airspace opacity and atelectasis of the medial left base. There is no pneumothorax. The support devices are in good position. Impression: Medial left basilar opacity. Images reviewed, interpreted, and dictated by Dr. Clint Gaspar. Transcribed by Xavi Arroyo PA-C. No valid procedures specified. ASSESSMENT: Pulmonary Acute on Chronic Hypoxemic Respiratory Failure -CT chest from outside hospital with near complete pneumonic infiltration of left lower lobe, mild patchy areas of pneumonia in the right lung. Near complete bronchial obstruction in the left mainstem, upper/lower segmental and subsegmental bronchi due to significant amount of debris with mediastinal and left axillary adenopathy Recurrent pneumonia due to aspiration. COPD with exacerbation Former tobacco abuse Neurology: Dementia? On namenda and Aricept H/O CVA with some word finding issues Cardiology: Hypertension HLD Infectious disease: Leukocytosis Left lung pneumonia Nephrology: Stable bun/Cr CKD 3a Gastroenterology: Dysphagia likely? Recurrent aspiration pneumonia GERD Endocrine: DM Hematology: Anemia; Mild PLAN: Maintain sat >89%, currently on MV. patient today is doing a little bit better, has better tidalvolumes, discussed with the daughters at bedside that we can extubate the patient to BiPAP and if she did well will continue full., If she does not well we can reintubate they said that the patient does not want to be reintubated and they do not want her to be reintubated, if she did worse they want to start comfort care. Chest x-ray today on 01/18 showed left basilar atelectasis, bronchoscopy was done before extubation, there was some thick secretions in the ET tube that was cleaned and removed, all lobes was opened there was no mucous plugs. Patient was extubated to BiPAP will keep on BiPAPfor now. chest x-ray on 01/18 showed low lung volumes, bilateral interstitial infiltrate patient had a bronchoscopy on 01/14 showed very thick mucous plugs especially on the left lower lobe that was cleaned and removed, some mucous plugs in the right lower lobe that was cleaned and removed, BAL was sent from left lower lobe for cultures CT scan of the chest on 01/13 showed left lower lobe consolidation suggestive of pneumonia, with obstruction of left main bronchus and left lower lobe bronchus, will do bronchoscopy today. chest x-ray on 01/14 shows bilateral interstitial infiltrates, left lower lobe atelectasis with obstruction of left main bronchus and left lower lobe bronchus Started on IV Solu-Medrol, DuoNeb. Budesonide. Patient was started on chest physiotherapy, flutter valve, incentive spirometry. Awake and alert but very weak. Keep head of bed at 30 degrees and maintain aspiration precautions. hemodynamically stable. off jorge a-. Patient became hypertensive, restarted on amlodipine 10, hydrochlorothiazide and Imdur on hold. On aspirin, atorvastatin, metoprolol. Echocardiogram: Echo was done on 01/13 pending report Hemodynamic support: Maintain MAP above 65. Antibiotics: Doxycycline and Zosyn Follow up on cultures. Nephrology was consulted. Status post albumin. Status post Lasix. Bun/Cr reviewed Monitor renal functions and electrolytes closely. Hypokalemia, hypomagnesemia, was replaced, continue to replace electrolytes per protocol. Maintain serum potassium of 4.0, magnesium of 2.0 and phosphorus of 2.5 and normal latest calcium with appropriate replacement. Monitor I&O. Avoid nephrotoxins. Nutrition: Has [place], started on tube feeding. Started on bowel Regimen. Hyperglycemia: Target glucose 140-180 mg/dL. SSI, monitor BS. Hold home antidiabetic medications. Monitor H&H. Transfuse as needed. Musculoskeletal: Consulted PT/OT. GI prophylaxis: Pantoprazole DVT prophylaxis: Subcu heparin Code Status: Current Code Status DNR: Interventions Full: Intubation OK Her sister at bedside, I have discussed with her about the option to do tracheostomy if the patientcontinue to fail SBT versus extubate to DNI/DNR and if do worse to do comfort care, she will discuss with the other 2 sisters and they will let us know about that. Prognosis: Poor. At risk for respiratory and cardiovascular complications. CRITICAL CARE TIME: Cumulative critical care time spent on the patient for the day excluding procedures 33 minutes. Patient seen and examined at bedside. I performed history and physical examination. I reviewed laboratory studies, imaging studies, other diagnostic studies, and inpatient medications. Chest imaging studies visualized and reviewed independent of radiologist. Case discussed with the multidisciplinary team including nurse practitioner, nurse, RT, garnetter, pharmacist, and case management during multidisciplinary round. I Dr.Hazim Latia MD, have personally evaluated the patient and performed a [id number] diagnostic evaluation on this patient; I have Obtained history, performed physical examination, reviewed laboratory studies. I have reviewed images independent of radiologist. I have actively directed the medical care, formulated diagnosis, and the plan of care. Patient requires a high complexity of decision making for assessment. Voice photographer apprentice technology (Zokem) is used for dictation of this note and sound-alike words might be erroneously placed despite reviewing the note for accuracy. Errors in dictation may reflect use of voice recognition software and not all errors in photographer apprentice may have been detected prior to signing. It may contain errors and words that were not intended to be used. Please contact the provider for errors or clarifications. * Sarah Lang CRT - 01/17/2025 6:16 PM EDTSummary: SBT Spontaneous Breathing Trial Spontaneous Breathing Trial successful Yes Trial performed by Trial: PSV Pressure Support (cm H2O): 5 cm H20 PEEP Set: 5 cm H20 FiO2 (%): 30 % Length of SBT was 4HRS Failed No Extubation No If not, why Pt wishes to wait to give herself more time to rest and breathe better Patient effort: Effort: Good Comprehension of Maneuver: Effort: Good * Ana Grover MD - 01/17/2025 1:12 PM EDT Subjective Patient seen and examined this morning, remain intubated, on mechanical ventilator, on SBT this morning, she follow some commands. Review of Systems Unable to obtain secondary to clinical condition Objective Last Recorded Vitals Blood pressure (!) 141/66, pulse 72, temperature 99.5 ??F (37.5 ??C), resp. rate 21, height 1.524 m(5'), weight 48.1 kg (106 lb 0.7 oz), SpO2 97%. Physical Exam Head atraumatic normal cephalic Constitutional intubated , chronically ill looking appearing Respiratory decreased air entry bilateral Cardiovascular S1-S2 no murmur gallops or rubs appreciated Labs: Results for orders placed or performed during the hospital encounter of 01/12/25 (from the past 24 hours) Glucose, Nova Meter Status: Abnormal Collection Time: 01/16/25 5:39 PM Result Value Ref Range POC-GLUCOSE 355 (H) 70 - 110 mg/dL Wire Spooler [id number] Glucose, Nova Meter Status: Abnormal Collection Time: 01/16/25 11:52 PM Result Value Ref Range POC-GLUCOSE 258 (H) 70 - 110 mg/dL Wire Spooler [id number] Magnesium Status: Normal Collection Time: 01/17/25 3:31 AM Result Value Ref Range Magnesium 1.9 1.6 - 2.6 mg/dL CBC - Hemogram (-BKR) Status: Abnormal Collection Time: 01/17/25 3:31 AM Result Value Ref Range WBC 11.8 (H) 4.0 - 10.0 K/??L RBC 2.57 (L) 3.93 - 5.22 M/??L Hemoglobin 7.6 (L) 11.2 - 15.7 GM/DL Hematocrit 23.1 (L) 34.1 - 44.9 % MCV 90 79 - 95 fL MCH 29.6 25.6 - 32.2 pg MCHC 32.9 32.2 - 35.5 GM/DL RDW 16.2 (H) 11.7 - 14.4 % Platelets 212 140 - 375 K/CU MM MPV 10.7 9.4 - 12.3 fL Basic Metabolic Panel Status: Abnormal Collection Time: 01/17/25 3:31 AM Result Value Ref Range Sodium 140 136 - 145 meq/L Potassium 3.5 3.4 - 5.1 meq/L CO2 35 (H) 22 - 29 meq/L Chloride 95 (L) 98 - 112 meq/L Glucose 143 (H) 82 - 115 mg/dL BUN 33.0 (H) 9.8 - 20.1 mg/dL Creatinine 1.43 (H) 0.50 - 1.20 mg/dL BUN/Creatinine 23 (H) 8 - 20 Calcium 8.8 8.4 - 10.2 mg/dL Anion Gap 14 (H) 4 - 12 eGFR (mL/min/1.73m2) 39 (L) >=60 mL/min/1.73m2 Osmolality Calc 289.1 mOsm/kg Glucose, Nova Meter Status: Abnormal Collection Time: 01/17/25 5:07 AM Result Value Ref Range POC-GLUCOSE 150 (H) 70 - 110 mg/dL Wire Spooler [id number] ECG 12 lead Status: None (In process) Collection Time: 01/17/25 9:14 AM Result Value Ref Range SYSTOLIC BLOOD PRESSURE (MCT) 158 mmHg DIASTOLIC BLOOD PRESSURE (MCT) 71 mmHg VENTRICULAR RATE EKG/MIN 131 BPM ATRIAL RATE (MCT) 131 BPM ND Interval 104 ms QRS-INTERVAL (MSEC) 88 ms QT Interval 394 ms QTC Interval 581 ms R AXIS (MCT) 121 degrees T Wave Chaplin 104 degrees [place] Diagnosis Sinus tachycardia with short ND with premature atrial complexes Left posterior fascicular block Anterior infarct , age undetermined Abnormal ECG When compared with ECG of 15-JAN-2025 09:08, premature atrial complexes are now present Left posterior fascicular block is now present Anterior infarct is now present T wave inversion no longer evident in Inferior leads T wave inversion less evident in Lateral leads Glucose, Nova Meter Status: Abnormal Collection Time: 01/17/25 11:38 AM Result Value Ref Range POC-GLUCOSE 168 (H) 70 - 110 mg/dL Wire Spooler [id number] XR chest AP portable Narrative: PORTABLE CHEST 01/17/2025 4:41 AM HISTORY: Acute respiratory failure. COMPARISON: January 16, 2025. FINDINGS: The patient is rotated to the right. The heart is mildly enlarged. The mediastinum is unremarkable . There is mild pulmonary vascular congestion. No focal consolidation is identified in the lungs. There is no pneumothorax . Status post median sternotomy. Endotracheal tube tip terminates 1.5 cm above the fab. Feeding tube courses below the inferior margin of the radiograph. Impression: Mild pulmonary vascular congestion. Images reviewed, interpreted, and dictated by Dr. Clint Gaspar. Transcribed by Danyel Ziegler PA-C Assessment and plan #Acute hypoxic respiratory failure: #Left mainstem bronchus occlusion: #Concern for aspiration pneumonia: #COPD exacerbation - Patient admitted to OSH with evidence of volume overload, increased O2 requirements with acute decompesation yesterday, requiring optiflow. WBC 20K - CT chest from outside hospital with near complete pneumonic infiltration of left lower lobe, mildpatchy areas of pneumonia in the right lung. Near complete bronchial obstruction in the left mainstem, upper/lower segmental and subsegmental bronchi due to significant amount of debris with mediastinal and left axillary adenopathy. - continue with IV Zosyn (Multiple recent admissions) + IV doxycycline - DuoNebs 4 times daily daily plus Pulmicort nebs twice daily -Mucocyst Qhr - Aggressive pulmonary hygiene ordered -intubated 01/14, underwent bronchoscopy showed Left lower lobe mucous plug - Pulmonology consulted, discussed with broaching machine set up operator, will continue current care in ICU - MRSA nares, urine antigens, pneumonia PCR and resp cultures ordered - IV solumedrol 40 mg daily -Labs this morning personally interpreted, WBC 11.7 hemoglobin 9.1 platelet 247 , sodium 146 potassium 2.9, replace and re check -Legionella and Streptococcus antigen negative -Respiratory panel negative -Chest x-ray this morning personally reviewed, improvement of infiltrates #Sepsis: Present at OSH 2/2 to PNA - Evidenced by tachycardia, leukocytosis, pneumonia - Continue IV abx as above -WBC 11.7 -Follow cultures and BAL #Acute on chronic HFpEF - Echo not available but per chart review from OSH, preserved EF. Patient received intermittent IV diuretics at OSH. - TTE noted -hold for diuretics for now due worsening kidney function - Strict I/O, monitor UOP - Continuous telemetry and spO2 - K> 4, Mg>2, potassium 2.9 , replace , magnesium 1.6, replace per protocol # Acute kidney injury Creatinine slightly down to 1.95 IVF, no diuretics for now Hold hydrochlothiazide Will continue to monitor, Nephrology following, discussed with Dr Cobb #Anxiety disorder: - Resume home ativan 0.5 mg qhs prn #GERD: - Resume home PPI #Normocytic anemia - Labs independently reviewed:Hbg 8.2, Hct 25.6 Continue with iron supplement Monitor H&H #HTN Continue with amlodipine and Lopresor Monitor BP #Dementia: - Continue home namenda and aricept - Delirium precautions when extubate : blinds open and lights on during day, sleep aids at night PRN in order to maintain circadian rhythm, frequent re- orientation, encourage family at bedside, limitsedating and anticholinergic medications #Mood disorder: - Continue lexapro 10 mg daily #Hx of CVA: - Continue lipitor 80 mg qhs #Pre-diabetes: - Last A1c 5.6 2 weeks ago - SSI -BG this morning 166, monitor closely while on steroid #CAD s/p CABG x 3 - Continue aspirin 325 mg daily - Continue lopressor 25mg BID daily - imdur 30 mg daily on hold #Chronic T12 burst fracture: - Noted on CT chest with mild central canal stenosis - Recommend outpatient follow-up #Debility -Consult to PT/OT ordered. -Consult to Case Management ordered. -Complicates all aspects of care. CODE STATUS patient is DNR, ok to intubate Total amount of critical care time spent was 36 minutes not counting procedures performed. This time included high complexity decision making to assess and treat vital organ system failure in this patient who has impairment of one or more vital organ systems such that there is a high probability ofimminent or life threatening deterioration of the patient??s condition. Failure to initiate the above interventions on an urgent basis would likely result in sudden, clinically significant or life-threatening deterioration in the patient's condition. The patient required my highest level of preparedness to intervene and I personally spent this critical care time directly and personally managing the patient. This critical care time included obtaining a history; examining the patient; vitals monitoring including pulse oximetry; ordering and review of studies; arranging treatment and plan management; evaluation of patient's response to treatment; re-assessments; and any discussions with familymembers, other providers and ICU staff. * Hannah Orr RD - 01/17/2025 11:[address] ADIME NUTRITION ASSESSMENT ADIME Nutrition Assessment The patient is a 74 y.o. female presenting from OSH for L mainstem bronchus occlusion, needing bronch. Present on Admission: Aspiration pneumonia (HCC) Acute resp failure L mainstem bronchus occlusion COPD exacerbation Sepsis Dementia Nutrition Evaluation Type: Follow Up Reason for Evaluation: +vent Subjective Comments: 01/17: High f/u. Pt discussed during MDR. Pt remains intubated, plans for SBT tomorrow. Pt has had elevated BG per RN - noted FSBG 258/355. Discussed changing to Glucerna once current bag is out. Will adjust order. 01/16: RD check on. Pt remains intubated but off sedation. Attempting SBT, hopeful for extubation. Corpak has been placed in duodenum and TF started @ 20 ml/hr. Orders remain in place 01/14: Screened pt in ICU, +vent. Pt presenting for bronch d/t bronchial stem obstruction. Requiredemergent intubation yesterday d/t resp distress. Pt is sedated today, off pressors. S/p bronch thisam. Puljose MORGAN ok to place Corpak and start TF, RD to place orders. Past Medical/Surgical History: No past medical history on file. No past surgical history on file. Vitals and Basic Assessment: Vitals: Vitals: 01/17/25 1100 BP: (!) 141/66 Pulse: 72 Resp: 21 Temp: 99.5 ??F (37.5 ??C) SpO2: 97% Oxygen: +vent Efren Scale: Efren Scale Score: 12 Last BM: Last BM Date: 01/17/25 GI Symptoms: +corpak (duodenum) Edema: Edema: Generalized Skin: pressure injury - sacrum Allergies: Not on File Scheduled Medications: Current Facility-Administered Medications Medication Dose Route Frequency Provider Last Rate Last Admin acetaminophen (TYLENOL) tablet 1,000 mg 1,000 mg oral Q6H PRN Ismaeel Thony, DO amLODIPine (NORVASC) tablet 10 mg 10 mg oral Daily Donnie Jeffery MD 10 mg at 01/17/25 08 aspirin chewable tablet 81 mg 81 mg oral Daily Donnie Jeffery MD 81 mg at 01/17/25 08 atorvastatin (LIPITOR) tablet 80 mg 80 mg oral Every Night Ismaeel Thony, DO 80 mg at 01/16/252114 benzonatate (TESSALON) capsule 100 mg 100 mg oral TID PRN Ismaeel Thony, DO budesonide (PULMICORT) nebulizer suspension 0.5 mg 0.5 mg nebulization 2 times daily Ismaeel Thony, DO 0.5 mg at 01/17/25 0812 dextrose 50% (D50W) injection 25 g 25 g intravenous PRN Ismaeel Thony, DO docusate sodium (COLACE) capsule 100 mg 100 mg oral BID PRN Ismaeel Thony, DO donepeziL (ARICEPT) tablet 10 mg 10 mg oral Every Night Ismaeel Thony, DO 10 mg at 01/16/252114 doxycycline (VIBRAMYCIN) 100 mg in sodium chloride 0.9 % (NS) IVANA IVPB 100 mg intravenous Q12H Ismaeel Thony, DO IVPB Stopped at 01/17/25 09 escitalopram (LEXAPRO) tablet 10 mg 10 mg oral Daily Ismaeel Thony, DO 10 mg at 01/17/25 0857 ferrous sulfate 300 mg (60 mg iron)/5 mL solution 300 mg 300 mg oral Daily Ismaeel Thony, DO 300 mg at 01/17/25 0857 [Held by provider] gabapentin (NEURONTIN) capsule 100 mg 100 mg oral BID Ismaeel Thony, DO 100 mgat 01/15/25 0845 glucagon injection 1 mg 1 mg intraMUSCULAR PRN Ismaeel Thony, DO glucose chew tab 16 g 16 g oral PRN Ismaeel Thony, DO glycerin (laxative) suppository 1 suppository 1 suppository rectal Daily PRN Ismaeel Thony, DO glycopyrrolate (ROBINUL) injection 0.2 mg 0.2 mg intravenous Q8H PRN Donnie Jeffery MD 0.2 mg at 01/17/25 0856 guaiFENesin (ROBITUSSIN) 100 mg/5 mL syrup 300 mg 300 mg feeding tube Q6H COUNTS INCLUDE 234 BEDS AT THE [facility] Ana Grover MD 300 mg at 01/17/25 0525 heparin injection 5,000 Units 5,000 Units subcutaneous Q12H Donnie Jeffery MD 5,000 Units at 01/17/25 0856 hydrALAZINE (APRESOLINE) injection 10 mg 10 mg intravenous Q6H PRN Aki Espinosa APRN 10 mg at 01/16/25 1540 [Held by provider] hydroCHLOROthiazide (HYDRODIURIL) tablet 12.5 mg 12.5 mg oral Daily Mark Flores MD 12.5 mg at 01/14/25 0906 insulin regular (HUMULIN R,NOVOLIN R) injection 0-6 Units subcutaneous Q6H COUNTS INCLUDE 234 BEDS AT THE [facility] Iswycamacho Thony, DO 1 Units at 01/17/25 0525 ipratropium-albuteroL (DUO-NEB) 0.5 mg-3 mg(2.5 mg base)/3 mL nebulizer solution 3 mL 3 mL nebulization Q6H Ana Grover MD 3 mL at 01/17/25 0812 [Held by provider] isosorbide mononitrate (IMDUR) 24 hr tablet 30 mg 30 mg oral QAM AC Ismaeel Thony, DO 30 mg at 01/13/25 0859 LORazepam (ATIVAN) tablet 0.5 mg 0.5 mg oral Every Night PRN Ismaeel Thony, DO magnesium sulfate IVPB 2 g in sterile water 50 mL (premix) 2 g intravenous Daily PRN Ismaeel Thony, DO magnesium sulfate IVPB 2 g in sterile water 50 mL (premix) 2 g intravenous BID PRN Ismaeel Thony,DO IVPB Stopped at 01/16/25 0623 melatonin tablet 3 mg 3 mg oral Every Night Ismaeel Thony, DO 3 mg at 01/16/25 2115 memantine (NAMENDA) tablet 5 mg 5 mg oral BID Ismaeel Thony, DO 5 mg at 01/17/25 0857 methylPREDNISolone sodium succinate (PF) (Solu-MEDROL) injection 40 mg 40 mg intravenous Daily Ismaeel Thony, DO 40 mg at 01/17/25 0856 metoprolol tartrate (LOPRESSOR) tablet 25 mg 25 mg oral BID Donnie Jeffery MD 25 mg at 01/17/25 0857 pantoprazole (PROTONIX) injection 40 mg 40 mg intravenous QPM Ismaeel Thony, DO 40 mg at 01/16/25 1743 piperacillin-tazobactam (ZOSYN) 2.25 g in dextrose 5 % (D5W) 50 mL IVPB 2.25 g intravenous Q6H Donnie Jeffery MD IVPB Stopped at 01/17/25 0626 polyethylene glycol (GLYCOLAX) packet 17 g 17 g oral Daily PRN Ismaeel Thony, DO potassium bicarbonate (EFFER-K) disintegrating tablet 40 mEq 40 mEq oral Q6H PRN Donnie Jeffery MD 40 mEq at 01/16/25 1530 potassium chloride (KLOR-CON) ER tablet 40 mEq 40 mEq oral 4x Daily PRN Ismaeel Thony, DO potassium chloride IVPB 10 mEq in 100 mL sterile water (premix) 40 mEq intravenous Q1H PRN Donnie Jeffery MD promethazine (PHENERGAN) 12.5 mg in sodium chloride 0.9 % (NS) 50 mL IVPB (Immediate Use Only) 12.5mg intravenous Q6H PRN Ismaeel Thony, DO sodium chloride flush 10 mL 10 mL intravenous PRN Ismaeel Thony, DO Drips: none Recent Labs 01/15/25 0337 01/15/25 0543 01/16/25 0336 01/16/25 1136 01/16/25 1217 01/16/25 1739 01/16/25 2352 01/17/25 0331 01/17/25 0507 NA 145 -- 142 -- -- -- -- 140 -- K 3.6 -- 2.9* -- 3.4 -- -- 3.5 -- CO2 28 -- 29 -- -- -- -- 35* -- BUN 34.1* -- 34.9* -- -- -- -- 33.0* -- CREATININE 2.23* -- 1.95* -- -- -- -- 1.43* -- GLUCOSE 95 < > 161* < > -- < > 258* 143* 150* CALCIUM 8.7 -- 8.8 -- -- -- -- 8.8 -- HGB 9.1* -- 8.2* -- -- -- -- 7.6* -- HCT 28.1* -- 25.6* -- -- -- -- 23.1* -- < > = values in this interval not displayed. WBC 15.6 No results found for: HGBA1C Anthropometrics: Ht: Height: 152.4 cm (5') Wt: Weight: 48.1 kg (106 lb 0.7 oz) Wt hx: 117# (11/19/24) BMI: Body mass index is 20.71 kg/m??. Wt Change: loss % Wt Change: 9.4% x 2 months (considered significant) UBW: UTO IBW: 100# Percent IBW: 106% Estimated Needs: 5714-4033 kcal (25-30 kcal/kg) 58 gm pro (1.2 gm/kg) Current Nutrition Intake: Diet Orders: Diet Order(s): NPO diet Supplements: Diet Supplements: None Intake: NPO Enteral Nutrition? yes TF regimen: Jevity 1.5 @40mL Diet Experience and Nutrition History: Previous Nutrition Education: Unknown Diet Education Provided: not appropriate Nutrition Focused Physical Exam: Date performed: 01/14 - unable to assess Physical signs of fat or muscle wasting with severity: UTO Energy intake hx: UTO Wt loss: ? 9.4% wt loss x 2 months Assessment of Malnutrition: Unable to complete malnutrition evaluation at this time. Nutrition Diagnoses: Problem #1: Inadequate Oral Intake Etiology: resp status, +vent Signs/Symptoms: NPO, need for TF Status: New Problem #2: Altered Nutrient Related Laboratory Values Etiology: excessive carbohydrate via enteral infusion Signs/Symptoms: elevated FSBG (258/355/226) , need for change of enteral infusion Status: Ongoing Nutrition Interventions and Recommendations: Collaboration with other providers, Enteral nutrition,and modify enteral infusion Nutrition Monitoring and Goals: - Once Jevity bag is empty, initiate Glucerna 1.5 @ 40mL (provides 1320 kcal, 73 gm pro). FW per MD-- requesting 30 ml/hr Goal: meet >80% of est needs (goal progressing) -If pt is extubated recommend GAS GOLF CART REPAIRER eval prior to starting PO diet (+regular with ONS prn) Goal: safe PO intake - Obtain wt 2x weekly Goal: avoid involuntary significant wt change - Monitor elytes, recommend replacing prn. Pt at risk for RFS Goal: wnls Nutrition Risk Level: High Risk Hannah Orr RD * GUILLAUME Thakur - 01/17/2025 11:30 AM EDTSummary: CM Progress Note Vent FiO2 30% Corpak LTACHs continue to follow No precert needed for placement DC plan is LTACH for now Expected DC Date: TBD Barrier: medical readiness, trach/PEG CM will continue to follow GUILLAUME Rea, HOSPITAL STAFF PHARMACIST * Chanel Cobb MD - 01/17/2025 10:04 AM EDT Subjective History of Present Illness: Margarita Stone is a 74 y.o. female with medical history of Chronic Respiratory Failure on 2L NC at baseline, COPD, CVA with slight residual on word finding, question of Dementia?, HTN/HLD and DM. 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 Near complete bronchial obstruction in the left mainstem, upper/lower segmental and subsegmental bronchi due to significant amount of debris with mediastinal and left axillary adenopathy. WBC 17.9, Cr 1.03. Patient was admitted on 01/12 and was maintained on IV antibiotics with IV doxycycline and Zosyn. Patient has been maintained on IV Lasix Echo on 01/13 was unremarkable Patient had a bronchoscopy on 01/14 showed very thick mucous plugs especially on the left lower lobe that was cleaned and removed, some mucous plugs in the right lower lobe that was cleaned and removed. Base creatinine 1.03 and today 2.23 Still intubated ,no new issues Review of Systems Unable to perform ROS: Intubated Objective Last Recorded Vitals Blood pressure (!) 142/64, pulse 104, temperature 98.8 ??F (37.1 ??C), resp. rate 19, height 1.524 m (5'), weight 48.1 kg (106 lb 0.7 oz), SpO2 99%. Physical Exam Constitutional: Comments: Intubated HENT: Head: Normocephalic and atraumatic. Cardiovascular: Rate and Rhythm: Normal rate and regular rhythm. Heart sounds: Normal heart sounds. Abdominal: General: Abdomen is flat. Palpations: Abdomen is soft. Skin: General: Skin is warm and dry. Labs: Results for orders placed or performed during the hospital encounter of 01/12/25 (from the past 24 hours) Glucose, Nova Meter Status: Abnormal Collection Time: 01/17/25 11:38 AM Result Value Ref Range POC-GLUCOSE 168 (H) 70 - 110 mg/dL Wire Spooler [id number] Glucose, Nova Meter Status: Abnormal Collection Time: 01/17/25 5:40 PM Result Value Ref Range POC-GLUCOSE 316 (H) 70 - 110 mg/dL Wire Spooler [id number] Glucose, Nova Meter Status: Abnormal Collection Time: 01/18/25 12:22 AM Result Value Ref Range POC-GLUCOSE 170 (H) 70 - 110 mg/dL Wire Spooler [id number] Magnesium Status: Normal Collection Time: 01/18/25 4:29 AM Result Value Ref Range Magnesium 1.6 1.6 - 2.6 mg/dL CBC - Hemogram (SJ-BKR) Status: Abnormal Collection Time: 01/18/25 4:29 AM Result Value Ref Range WBC 14.3 (H) 4.0 - 10.0 K/??L RBC 3.19 (L) 3.93 - 5.22 M/??L Hemoglobin 9.3 (L) 11.2 - 15.7 GM/DL Hematocrit 28.3 (L) 34.1 - 44.9 % MCV 89 79 - 95 fL MCH 29.2 25.6 - 32.2 pg MCHC 32.9 32.2 - 35.5 GM/DL RDW 15.9 (H) 11.7 - 14.4 % Platelets 250 140 - 375 K/CU MM MPV 11.0 9.4 - 12.3 fL Basic Metabolic Panel Status: Abnormal Collection Time: 01/18/25 4:29 AM Result Value Ref Range Sodium 140 136 - 145 meq/L Potassium 3.7 3.4 - 5.1 meq/L CO2 31 (H) 22 - 29 meq/L Chloride 96 (L) 98 - 112 meq/L Glucose 156 (H) 82 - 115 mg/dL BUN 30.1 (H) 9.8 - 20.1 mg/dL Creatinine 1.11 0.50 - 1.20 mg/dL BUN/Creatinine 27 (H) 8 - 20 Calcium 9.0 8.4 - 10.2 mg/dL Anion Gap 17 (H) 4 - 12 eGFR (mL/min/1.73m2) 52 (L) >=60 mL/min/1.73m2 Osmolality Calc 288.8 mOsm/kg Glucose, Nova Meter Status: Abnormal Collection Time: 01/18/25 6:09 AM Result Value Ref Range POC-GLUCOSE 188 (H) 70 - 110 mg/dL Wire Spooler [id number] ECG 12 lead Status: None (In process) Collection Time: 01/18/25 7:32 AM Result Value Ref Range SYSTOLIC BLOOD PRESSURE (MCT) 149 mmHg DIASTOLIC BLOOD PRESSURE (MCT) 66 mmHg VENTRICULAR RATE EKG/MIN 88 BPM ATRIAL RATE (MCT) 88 BPM ND Interval 172 ms QRS-INTERVAL (MSEC) 84 ms QT Interval 622 ms QTC Interval 752 ms P Chaplin 18 degrees R AXIS (MCT) 98 degrees T Wave Chaplin 46 degrees [place] Diagnosis Normal sinus rhythm Right atrial enlargement Rightward axis Anterior infarct (cited on or before 17-JAN-2025) ST & T wave abnormality, consider inferior ischemia Prolonged QT Abnormal ECG When compared with ECG of 17-JAN-2025 09:14, Significant changes have occurred XR chest AP portable Narrative: PORTABLE CHEST HISTORY: Intubation. COMPARISON: PCXR from the previous day. FINDINGS: The heart is stable in size. There are chronic changes in both lungs. There is airspace opacity and atelectasis of the medial left base. There is no pneumothorax. The support devices are in good position. Impression: Medial left basilar opacity. Images reviewed, interpreted, and dictated by Dr. Clint Gaspar. Transcribed by Xavi Arroyo PA-C. Assessment 1. Stage II acute kidney injury likely multifactorial ischemic and toxic ATN secondary to underlying infection, contrast exposure, IV diuresis etc. cannot rule out associated AIN 2. Anemia likely multifactorial 3. Hypertension 4. Left lung pneumonia 5. Acute metabolic encephalopathy/history of CVA 6. Acute on chronic hypoxic respiratory failure 7. COPD exacerbation/history of recurrent aspiration pneumonia Plan - Base kidney function was normal at presentation,improved -Avoid nephrotoxins -Strict intake and output -Bladder scan as needed -Keep MAP above 65 and hemoglobin above 7 -Echocardiogram was unremarkable - fluid balance is neg -S/P Albumin 25 IV bid x 4 doses -Avoid IV contrast unless absolutely necessary -Renally dose medications and antibiotics -Monitor kidney function electrolytes on daily basis -No need for BACK PAD INSPECTOR at present time -Thanks for consultation [facility] [address] [place], [place], [address] Phone #[phone] Fax #[phone] High complex case CC time of 65 min * Donnie Jeffery MD - 01/17/2025 8:06 AM EDT Consults PULMONARY AND CRITICAL CARE Consult Note Date of Service: 01/17/2025 Reason for Consult: For critical care management. Referring: MD Thony HPI: This is a 74 y.o. year old female with past medical history of Chronic Respiratory Failure on 2L NCat baseline, COPD, CVA with slight residual on word finding, question of Dementia?, HTN/HLD and DM.She presented to [facility] due to increasing shortness of breath and cough for 1-2 days.Family reports she has had some recurrent pneumonia and issues with aspiration recently. CT chest from outside hospital with near complete pneumonic infiltration of left lower lobe, mild patchy areas of pneumonia in the right lung. Near complete bronchial obstruction in the left mainstem, upper/lower se gmental and subsegmental bronchi due to significant amount of debris with mediastinal and left axillary adenopathy. WBC 17.9, Cr 1.03. Pulmonary has been consulted for ICU management and need for bronchoscopy. 01/13 I have seen and examined the patient this morning, daughter at bedside I have discussed with her about the patient condition answered all her questions and concerns, discussed with her that thepatient has left lower lobe atelectasis could be from mucous plug or aspiration, will check CT chest for evaluation. She said if the patient absolutely need bronchoscopy she is okay with intubating the patient for procedure otherwise the patient is DNR/DNI. Depending on the result of the CT scan wewill consider to do bronchoscopy. Patient was started on chest physiotherapy, flutter valve, incentive spirometry. Echo on 01/13 was done pending report. Patient on Optiflow 55 L and 50%, will titrate down as tolerated, WBC 17.1, sodium 148, fluid balance -750 mL, on doxycycline and Zosyn. 01/14 I have seen and examined the patient this morning, patient remains critically ill, intubated on mechanical ventilation FiO2 60%, was titrated this morning to 50%, will continue to titrate down as tolerated, CT scan of the chest on 01/13 showed left lower lobe consolidation suggestive of pneumonia, with obstruction of left main bronchus and left lower lobe bronchus, will do bronchoscopy today, chest x-ray on 01/14 shows bilateral interstitial infiltrates, left lower lobe atelectasis with obstruction of left main bronchus and left lower lobe bronchus, currently patient off jorge a-, blood pressure is borderline low, ABG was reviewed show metabolic alkalosis, sodium 146, creatinine 1.56, potassium 2.9, WBC 15.6, fluid balance -350 mL, on doxycycline and Zosyn. 01/15 I have seen and examined the patient this morning, patient was sedated this morning, will stop sedation this morning, patient was tried on pressure support this morning for SBT 3 times and patient become apneic, will try again afternoon, chest x-ray on 01/15 showed persistent improving left lung base pneumonia, patient had a bronchoscopy on 01/14 showed very thick mucous plugs especially onthe left lower lobe that was cleaned and removed, some mucous plugs in the right lower lobe that was cleaned and removed, BAL was sent from left lower lobe for cultures, fluid balance +102 mL, on doxycycline and Zosyn. 01/16 I have seen and examined the patient this morning, patient has been off sedation since yesterday, still very weak, when patient on pressure support take low tidal volume most of the time less than 250, patient was encouraged to take deep breaths, if the patient continue to fail SBT we will discuss with the family the options between tracheostomy and terminal extubation to DNR/DNI and comfort care, chest x-ray on 01/16 interpreted independently showed low lung volumes, bilateral interstitial infiltrate, WBC 11.2, hemoglobin 8.2, creatinine 1.95, fluid balance -500 cc, on doxycycline and Zosyn. Hypokalemia and hypomagnesemia was replaced this morning. 01/17 I have seen and examined the patient this morning, chest x-ray on 01/17 showed low lung volumes, bilateral interstitial infiltrate, blood pressure 157/67, WBC 11.8, hemoglobin 7.6, creatinine 1.43, fluid balance -660 mL, on doxycycline and Zosyn. Patient has failed SBT yesterday, will try SBTagain today, she still have low lung volumes. Her daughter at bedside I have discussed with her about patient condition and answered all her questions and concerns expressed understanding. 2 Daughters at bedside, I have discussed with them about the patient condition and answered all their questions and concerns, they expressed their understanding, I have discussed with him that patient tolerated a little bit better today pressure support, still have low tidal volume but better than y and the day before, still high risk for reintubation after extubation, discussed with him that we can try to extubate to BiPAP if she did not do well we can intubate again, they said they want to give her 1 more day to see if she will get any better, we will keep her on the ventilator for today we will try SBT again tomorrow. PAST MEDICAL HISTORY: No past medical history on file. PAST SURGICAL HISTORY: No past surgical history on file. No past surgical history on file. Allergies: Not on File SOCIAL HISTORY: FAMILY HISTORY: family history is not on file. Review of Systems Unable to perform ROS: Intubated Vital Signs Temp: [98.2 ??F (36.8 ??C)-99.5 ??F (37.5 ??C)] 98.8 ??F (37.1 ??C) Pulse: [67-129] 81 Resp: [11-167] 15 BP: (122-195)/(55-83) 157/77 FiO2 (%): [30 %-40 %] 30 % Current: Temp: 98.8 ??F (37.1 ??C) Pulse: 81 Resp: 15 BP: (!) 157/77 SpO2: 98 % 24 Hour: BP Min: 122/58 Max: 195/79 Temp Min: 98.2 ??F (36.8 ??C) Max: 99.5 ??F (37.5 ??C) Pulse Min: 67 Max: 129 Resp Min: 11 Max: 167 SpO2 Min: 93 % Max: 100 % Intake/Output: I/O last 3 completed shifts: In: 930 [NG/GT:730; IV Piggyback:200] Out: 2725 [Urine:2725] Physical Exam Constitutional: Appearance: She is ill-appearing. HENT: Head: Normocephalic. Mouth/Throat: Mouth: Mucous membranes are dry. Eyes: Pupils: Pupils are equal, round, and reactive to light. Cardiovascular: Rate and Rhythm: Normal rate and regular rhythm. Pulmonary: Breath sounds: Rhonchi present. Comments: Diminshed left lung breath sounds, crackles noted Abdominal: General: Bowel sounds are normal. Musculoskeletal: General: No deformity. Skin: Capillary Refill: Capillary refill takes less than 2 seconds. Coloration: Skin is pale. Neurological: Comments: Intubated and sedated. Intake/Output: I/O last 3 completed shifts: In: 930 [NG/GT:730; IV Piggyback:200] Out: 2725 [Urine:2725] LABS Results for orders placed or performed during the hospital encounter of 01/12/25 (from the past 24 hours) Glucose, Nova Meter Status: Abnormal Collection Time: 01/16/25 11:36 AM Result Value Ref Range POC-GLUCOSE 154 (H) 70 - 110 mg/dL Wire Spooler [id number] Phosphorus Status: Normal Collection Time: 01/16/25 12:17 PM Result Value Ref Range Phosphorus 4.5 2.5 - 4.5 mg/dL Potassium Status: Normal Collection Time: 01/16/25 12:17 PM Result Value Ref Range Potassium 3.4 3.4 - 5.1 meq/L Glucose, Nova Meter Status: Abnormal Collection Time: 01/16/25 5:39 PM Result Value Ref Range POC-GLUCOSE 355 (H) 70 - 110 mg/dL Wire Spooler [id number] Glucose, Nova Meter Status: Abnormal Collection Time: 01/16/25 11:52 PM Result Value Ref Range POC-GLUCOSE 258 (H) 70 - 110 mg/dL Wire Spooler [id number] Magnesium Status: Normal Collection Time: 01/17/25 3:31 AM Result Value Ref Range Magnesium 1.9 1.6 - 2.6 mg/dL CBC - Hemogram (SJ-BKR) Status: Abnormal Collection Time: 01/17/25 3:31 AM Result Value Ref Range WBC 11.8 (H) 4.0 - 10.0 K/??L RBC 2.57 (L) 3.93 - 5.22 M/??L Hemoglobin 7.6 (L) 11.2 - 15.7 GM/DL Hematocrit 23.1 (L) 34.1 - 44.9 % MCV 90 79 - 95 fL MCH 29.6 25.6 - 32.2 pg MCHC 32.9 32.2 - 35.5 GM/DL RDW 16.2 (H) 11.7 - 14.4 % Platelets 212 140 - 375 K/CU MM MPV 10.7 9.4 - 12.3 fL Basic Metabolic Panel Status: Abnormal Collection Time: 01/17/25 3:31 AM Result Value Ref Range Sodium 140 136 - 145 meq/L Potassium 3.5 3.4 - 5.1 meq/L CO2 35 (H) 22 - 29 meq/L Chloride 95 (L) 98 - 112 meq/L Glucose 143 (H) 82 - 115 mg/dL BUN 33.0 (H) 9.8 - 20.1 mg/dL Creatinine 1.43 (H) 0.50 - 1.20 mg/dL BUN/Creatinine 23 (H) 8 - 20 Calcium 8.8 8.4 - 10.2 mg/dL Anion Gap 14 (H) 4 - 12 eGFR (mL/min/1.73m2) 39 (L) >=60 mL/min/1.73m2 Osmolality Calc 289.1 mOsm/kg Glucose, Nova Meter Status: Abnormal Collection Time: 01/17/25 5:07 AM Result Value Ref Range POC-GLUCOSE 150 (H) 70 - 110 mg/dL Wire Spooler [id number] No results found for: PT , INR , PTT CHEM7: Sodium Date Value Ref Range Status 01/17/2025 140 136 - 145 meq/L Final Potassium Date Value Ref Range Status 01/17/2025 3.5 3.4 - 5.1 meq/L Final Chloride Date Value Ref Range Status 01/17/2025 95 (L) 98 - 112 meq/L Final CO2 Date Value Ref Range Status 01/17/2025 35 (H) 22 - 29 meq/L Final BUN Date Value Ref Range Status 01/17/2025 33.0 (H) 9.8 - 20.1 mg/dL Final Creatinine Date Value Ref Range Status 01/17/2025 1.43 (H) 0.50 - 1.20 mg/dL Final eGFR (mL/min/1.73m2) Date Value Ref Range Status 01/17/2025 39 (L) >=60 mL/min/1.73m2 Final Comment: ESTIMATED GFR IS NOT ACCURATE CREATININE CLEARANCE IN PREDICTING GLOMERULAR FILTRATION RATE. ESTIMATED GFR IS NOT APPLICABLE FOR DIALYSIS PATIENTS. Calcium Date Value Ref Range Status 01/17/2025 8.8 8.4 - 10.2 mg/dL Final Lab Results Component Value Date AST 18 01/14/2025 ALT 10 01/14/2025 No results for input(s): POCGLU in the last 72 hours. No results for input(s): POCPH , POCPCO2 , POCPO2 , POCABG in the last 72 hours. Invalid input(s): POCSAT , POCART , ARTPOC Microbiology: Microbiology Results (last 7 days) Procedure Component Value Units Date/Time Pneumonia PCR Panel w/Respiratory Culture [[id number]] Collected: 01/14/25 1133 Order Status: Completed Specimen: BAL from Lung, Left Lower Lobe Updated: 01/16/25 0998 Narrative: The following orders were created for panel order Pneumonia PCR Panel w/Respiratory Culture. Procedure Abnormality Status --------- ------ Pneumonia PCR Panel[[id number]] Normal Edited Result - FINAL Respiratory Culture[[id number]] Final result Please view results for these tests on the individual orders. Respiratory Culture [[id number]] Collected: 01/14/25 113 Order Status: Completed Specimen: BAL from Lung, Left Lower Lobe Updated: 01/16/25 0904 Result No growth Gram Stain Result Rare WBCs No organisms seen Narrative: The pneumonia PCR panel may detect organisms that do not grow on the culture. Correlate PCR, culture, and patient condition. Rule out and consider respiratory tract colonization,particularly in tracheostomy patients. AFB Culture And Stain [[id number]] Collected: 01/14/25 113 Order Status: Completed Specimen: BAL from Lung, Left Lower Lobe Updated: 01/15/25 1413 AFB Smear No acid fast bacilli seen Pneumonia PCR Panel [[id number]] (Normal) Collected: 01/14/25 1136 Order Status: Completed Specimen: BAL from Lung, Left Lower Lobe Updated: 01/15/25 0632 ACINETOBACTER CALCOACETICUS-BAUMANNII COMPLEX Not detected ENTEROBACTER CLOACAE COMPLEX Not detected ESCHERICHIA COLI Not detected HAEMOPHILUS INFLUENZAE Not detected KLEBSIELLA AEROGENES Not detected KLEBSIELLA OXYTOCA Not detected KLEBSIELLA PNEUMONIAE GROUP Not detected MORAXELLA CATARRHALIS Not detected PROTEUS Not detected PSEUDOMONAS AERUGINOSA Not detected SERRATIA MARCESCENS Not detected STAPHYLOCOCCUS AUREUS Not detected STREPTOCOCCUS AGALACTIAE (GROUP B) Not detected STREPTOCOCCUS PNEUMONIAE Not detected STREPTOCOCCUS PYOGENES (GROUP A) Not detected CTX-M Non Applicable IMP Non Applicable KPC Non Applicable MEC A/C and MREJ Non Applicable NDM Non Applicable OXA-48-LIKE Non Applicable VIM Non Applicable CHLAMYDIA PNEUMONIAE Not detected LEGIONELLA PNEUMOPHILA Not detected MYCOPLASMA PNEUMONIAE Not detected ADENOVIRUS Not detected CORONAVIRUS (NOT COVID19) Not detected HUMAN METAPNEUMOVIRUS Not detected HUMAN RHINOVIRUS/ENTEROVIRUS Not detected INFLUENZA A Not detected INFLUENZA B Not detected PARAINFLUENZA VIRUS Not detected RESPIRATORY SYNCYTIAL VIRUS Not detected Narrative: Antimicrobial resistance can occur via multiple mechanisms. A NOT DETECTED result for a genetic marker of antimicrobial resistance does not indicate susceptibility to associated antimicrobial drugs or drug classes. A DETECTED result for a genetic marker of antimicrobial resistance cannot be definitively linked to the microorganism(s)detected. Culture is required to obtain isolates for antimicrobial susceptibility testing and FilmArray Pneumonia Panel results should be used in conjunction with culture results for determination of susceptibility or resistance. Culture Fungus W/AALIYAH Or Mayte Ink [[id number]] Collected: 01/14/25 1133 Order Status: Completed Specimen: BAL from Lung, Left Lower Lobe Updated: 01/14/25 1227 AALIYAH Prep No fungal elements seen BAL: Bronchial Culture + Gram Stain [[id number]] Collected: 01/14/25 1133 Order Status: Canceled Specimen: BAL from Lung, Left Lower Lobe Updated: 01/14/25 1133 Strep pneumoniae urine antigen [[id number]] (Normal) Collected: 01/12/25 1033 Order Status: Completed Specimen: Urine, Unspecified Source Updated: 01/12/25 1114 Strep pneumoniae Antigen Presumptive negative for pneumococcal pneumonia - see comment Narrative: A presumptive negative result suggests no current or recent pneumococcal infection. Infection due to S. pneumoniae cannot be ruled out since the antigen present in the specimen may be below the detection limit of the test. Pneumonia PCR Panel w/Respiratory Culture [[id number]] Collected: 01/12/25606 Order Status: Completed Specimen: Sputum from Expectorated Updated: 01/12/25 0847 Narrative: The following orders were created for panel order Pneumonia PCR Panel w/Respiratory Culture. Procedure Abnormality Status --------- ------ Pneumonia PCR Panel[[id number]] Respiratory Culture[[id number]] Final result Please view results for these tests on the individual orders. Respiratory Culture [[id number]] Collected: 01/12/25606 Order Status: Completed Specimen: Sputum from Expectorated Updated: 01/12/25 0847 Result Sputum unsatisfactory for culture. Microscopic evaluation indicates significant upper respiratory contamination with epithelial cells.Submit another specimen. Gram Stain Result >25 Epithelial cells/LPF Narrative: Sputum rejection called to Respiratory Care Team Pneumonia PCR Panel [[id number]] Collected: 01/12/25606 Order Status: Canceled Specimen: Sputum from Expectorated Updated: 01/12/25 0611 MRSA Screen [[id number]] (Normal) Collected: 01/12/25 0329 Order Status: Completed Specimen: Nasal from Nares Updated: 01/12/25 0532 MRSA by PCR [facility] MRSA Not Detected by PCR Respiratory Panel [[id number]] (Normal) Collected: 01/12/25 0329 Order Status: Completed Specimen: Nasopharyngeal Swab Updated: 01/12/25 0449 ADENOVIRUS Not detected CORONAVIRUS 229E Not detected CORONAVIRUS HKU1 Not detected CORONAVIRUS NL63 Not detected CORONAVIRUS OC43 Not detected SARS-COV2/RT-PCR Not Detected HUMAN METAPNEUMOVIRUS Not detected HUMAN RHINOVIRUS/ENTEROVIRUS Not detected INFLUENZA A Not detected INFLUENZA B Not detected PARAINFLUENZA VIRUS 1 Not detected PARAINFLUENZA VIRUS 2 Not detected PARAINFLUENZA VIRUS 3 Not detected PARAINFLUENZA VIRUS 4 Not detected RESPIRATORY SYNCYTIAL VIRUS Not detected BORDETELLA PARAPERTUSSIS Not detected BORDETELLA PERTUSSIS Not detected CHLAMYDIA PNEUMONIAE Not detected MYCOPLASMA PNEUMONIAE Not detected Narrative: Testing was performed with RT-PCR methodology using the Biomeme Respiratory Panel 2.1 which has FDADe Brenda approval for SARS-CoV-2 testing. Negative results do not preclude infection with the SARS-CoV-2 virus and should not be used as the sole basis of patient treatment or public health decisions.Negative results must be considered in the context of an individual's recent exposures, history, and presence of clinical signs/symptoms. Follow-up testing should be performed according to the current CDC recommendations. Other viruses and bacteria not targeted by this PCR panel cannot be excluded; therefore clinical correlation and follow up of serology, culture results, and other molecular studies is required. The results are not intended to be used as the sole means for clinical diagnosis or patient management decisions. This sample was tested at the [facility] using the CREATIV.COMArray Respiratory Panel. It is FDA cleared and has been verified and approved by the [facility] for clinical use on nasopharyngeal swab specimens. The performance of the FilmArray RP has not been established in individuals who received influenza vaccine. Recent administration of a nasal influenza vaccine may cause false positive results for Influenza A and/or Influenza B. Radiology Results (last day) Procedure Component Value Units Date/Time XR chest AP portable - In process [[id number]] Resulted: 01/17/25 041 Order Status: Sent Updated: 01/17/25521 This result has not been signed. Information might be incomplete. XR chest AP portable [[id number]] Collected: 01/16/25 1442 Order Status: Completed Updated: 01/16/25 1635 Narrative: PORTABLE CHEST X-RAY INDICATION: Shortness of breath. FINDINGS: A portable view of the chest was obtained. Comparison is made to a prior exam dated 01/15/2025. Patient is again noted to be status post median sternotomy. No change in support tubes or lines. Heart size is stable. Interstitial opacities and left basilar airspace disease are unchanged. No pneumothorax. Impression: No interval change. Images reviewed, interpreted, and dictated by Fab Smith MD No valid procedures specified. ASSESSMENT: Pulmonary Acute on Chronic Hypoxemic Respiratory Failure -CT chest from outside hospital with near complete pneumonic infiltration of left lower lobe, mild patchy areas of pneumonia in the right lung. Near complete bronchial obstruction in the left mainstem, upper/lower segmental and subsegmental bronchi due to significant amount of debris with mediastinal and left axillary adenopathy Recurrent pneumonia due to aspiration. COPD with exacerbation Former tobacco abuse Neurology: Dementia? On namenda and Aricept H/O CVA with some word finding issues Cardiology: Hypertension HLD Infectious disease: Leukocytosis Left lung pneumonia Nephrology: Stable bun/Cr CKD 3a Gastroenterology: Dysphagia likely? Recurrent aspiration pneumonia GERD Endocrine: DM Hematology: Anemia; Mild PLAN: 2 Daughters at bedside, I have discussed with them about the patient condition and answered all their questions and concerns, they expressed their understanding, I have discussed with him that patient tolerated a little bit better today pressure support, still have low tidal volume but better than and the day before, still high risk for reintubation after extubation, discussed with him that we can try to extubate to BiPAP if she did not do well we can intubate again, they said they want to give her 1 more day to see if she will get any better, we will keep her on the ventilator for today we will try SBT again tomorrow. Maintain sat >89%, currently on MV. Patient continue to fail SBT for 3 days in a row, she has low lung volumes, apnea, patient was encouraged to take deep breaths, will continue pressure support, if we fail to extubate will discuss with family about tracheostomy versus extubate to DNR/DNI to comfort care. chest x-ray on 01/17 showed low lung volumes, bilateral interstitial infiltrate patient had a bronchoscopy on 01/14 showed very thick mucous plugs especially on the left lower lobe that was cleaned and removed, some mucous plugs in the right lower lobe that was cleaned and removed, BAL was sent from left lower lobe for cultures CT scan of the chest on 01/13 showed left lower lobe consolidation suggestive of pneumonia, with obstruction of left main bronchus and left lower lobe bronchus, will do bronchoscopy today. chest x-ray on 01/14 shows bilateral interstitial infiltrates, left lower lobe atelectasis with obstruction of left main bronchus and left lower lobe bronchus Started on IV Solu-Medrol, DuoNeb. Budesonide. Patient was started on chest physiotherapy, flutter valve, incentive spirometry. Has been off sedation for 3 days Keep head of bed at 30 degrees and maintain aspiration precautions. hemodynamically stable. off jorge a-. Patient became hypertensive, restarted on amlodipine 10, hydrochlorothiazide and Imdur on hold. On aspirin, atorvastatin, metoprolol. Echocardiogram: Echo was done on 01/13 pending report Hemodynamic: Hemodynamically stable Hemodynamic support: Maintain MAP above 65. Antibiotics: Doxycycline and Zosyn Follow up on cultures. Nephrology was consulted. Status post albumin. Status post Lasix. Bun/Cr reviewed Monitor renal functions and electrolytes closely. Hypokalemia, hypomagnesemia, was replaced, continue to replace electrolytes per protocol. Maintain serum potassium of 4.0, magnesium of 2.0 and phosphorus of 2.5 and normal latest calcium with appropriate replacement. Monitor I&O. Avoid nephrotoxins. Nutrition: Has Corpak, started on tube feeding. Started on bowel Regimen. Hyperglycemia: Target glucose 140-180 mg/dL. SSI, monitor BS. Hold home antidiabetic medications. Monitor H&H. Transfuse as needed. Musculoskeletal: Consulted PT/OT. GI prophylaxis: Pantoprazole DVT prophylaxis: Subcu heparin Code Status: Current Code Status DNR: Interventions Full: Intubation OK Her sister at bedside, I have discussed with her about the option to do tracheostomy if the patientcontinue to fail SBT versus extubate to DNI/DNR and if do worse to do comfort care, she will discuss with the other 2 sisters and they will let us know about that. Prognosis: Poor. At risk for respiratory and cardiovascular complications. CRITICAL CARE TIME: Cumulative critical care time spent on the patient for the day excluding procedures 37 minutes. Patient seen and examined at bedside. I performed history and physical examination. I reviewed laboratory studies, imaging studies, other diagnostic studies, and inpatient medications. Chest imaging studies visualized and reviewed independent of radiologist. Case discussed with the multidisciplinary team including nurse practitioner, nurse, RT, garnetter, pharmacist, and case management during multidisciplinary round. I Dr.Hazim Latia MD, have personally evaluated the patient and performed a [id number] diagnostic evaluation on this patient; I have Obtained history, performed physical examination, reviewed laboratory studies. I have reviewed images independent of radiologist. I have actively directed the medical care, formulated diagnosis, and the plan of care. Patient requires a high complexity of decision making for assessment. Voice photographer apprentice technology (Zokem) is used for dictation of this note and sound-alike words might be erroneously placed despite reviewing the note for accuracy. Errors in dictation may reflect use of voice recognition software and not all errors in photographer apprentice may have been detected prior to signing. It may contain errors and words that were not intended to be used. Please contact the provider for errors or clarifications. * GUILLAUME Jeff - 01/16/2025 2:10 PM EDTSummary: Paper Copy of HCS/POA In Binder Social Work Progress Note There is medical HCS/POA document/paperwork in patient's chart/blue binder. Confirmed with Bedside Nursing. GUILLAUME Jeff * Nancy Whitaker, Lever Tender - 01/16/2025 12:17 PM EDT Spiritual Care Progress Note 01/16/25 1216 Clinical Encounter Type Visited With Family Routine Visit Follow-up Crisis Visit Critical care Referral From Lever Tender;Family Consult Patient care Catholic Encounters Catholic Needs Prayer Comments: Routine visit with Ms. Stone's 3 daughters in waiting room; Provided reflective and compassionate listening; They shared thoughts and feelings regarding Ms. Stone's current medical journey; Tanya is a significant resource; Provided pastoral prayer upon request; Daughters expressed gratitude Chaplain Timmy 01/16/2025 12:17 PM * Ana Grover MD - 01/16/2025 11:17 AM EDT Subjective Patient seen and examined this morning, remain intubated, on mechanical ventilator, she follow somecommands. Review of Systems Unable to obtain secondary to clinical condition Objective Last Recorded Vitals Blood pressure (!) 141/65, pulse 99, temperature 97.9 ??F (36.6 ??C), resp. rate (!) 31, height 1.524 m (5'), weight 48.1 kg (106 lb 0.7 oz), SpO2 98%. Physical Exam Head atraumatic normal cephalic Constitutional intubated , chronically ill looking appearing Respiratory decreased air entry bilateral Cardiovascular S1-S2 no murmur gallops or rubs appreciated Labs: Results for orders placed or performed during the hospital encounter of 01/12/25 (from the past 24 hours) Glucose, Nova Meter Status: Abnormal Collection Time: 01/15/25 3:25 PM Result Value Ref Range POC-GLUCOSE 202 (H) 70 - 110 mg/dL Wire Spooler [id number] Glucose, Nova Meter Status: Abnormal Collection Time: 01/15/25 5:07 PM Result Value Ref Range POC-GLUCOSE 226 (H) 70 - 110 mg/dL Wire Spooler [id number] Glucose, Nova Meter Status: Abnormal Collection Time: 01/16/25 12:25 AM Result Value Ref Range POC-GLUCOSE 196 (H) 70 - 110 mg/dL Wire Spooler [id number] Magnesium Status: Normal Collection Time: 01/16/25 3:36 AM Result Value Ref Range Magnesium 1.6 1.6 - 2.6 mg/dL CBC - Hemogram (SJ-BKR) Status: Abnormal Collection Time: 01/16/25 3:36 AM Result Value Ref Range WBC 11.2 (H) 4.0 - 10.0 K/??L RBC 2.76 (L) 3.93 - 5.22 M/??L Hemoglobin 8.2 (L) 11.2 - 15.7 GM/DL Hematocrit 25.6 (L) 34.1 - 44.9 % MCV 93 79 - 95 fL MCH 29.7 25.6 - 32.2 pg MCHC 32.0 (L) 32.2 - 35.5 GM/DL RDW 16.2 (H) 11.7 - 14.4 % Platelets 198 140 - 375 K/CU MM MPV 10.8 9.4 - 12.3 fL Basic Metabolic Panel Status: Abnormal Collection Time: 01/16/25 3:36 AM Result Value Ref Range Sodium 142 136 - 145 meq/L Potassium 2.9 (L) 3.4 - 5.1 meq/L CO2 29 22 - 29 meq/L Chloride 98 98 - 112 meq/L Glucose 161 (H) 82 - 115 mg/dL BUN 34.9 (H) 9.8 - 20.1 mg/dL Creatinine 1.95 (H) 0.50 - 1.20 mg/dL BUN/Creatinine 18 8 - 20 Calcium 8.8 8.4 - 10.2 mg/dL Anion Gap 18 (H) 4 - 12 eGFR (mL/min/1.73m2) 27 (L) >=60 mL/min/1.73m2 Osmolality Calc 294.5 mOsm/kg Phosphorus Status: Abnormal Collection Time: 01/16/25 3:36 AM Result Value Ref Range Phosphorus 5.7 (H) 2.5 - 4.5 mg/dL Glucose, Nova Meter Status: Abnormal Collection Time: 01/16/25 11:36 AM Result Value Ref Range POC-GLUCOSE 154 (H) 70 - 110 mg/dL Wire Spooler [id number] Phosphorus Status: Normal Collection Time: 01/16/25 12:17 PM Result Value Ref Range Phosphorus 4.5 2.5 - 4.5 mg/dL Potassium Status: Normal Collection Time: 01/16/25 12:17 PM Result Value Ref Range Potassium 3.4 3.4 - 5.1 meq/L XR chest AP portable Narrative: PORTABLE CHEST X-RAY INDICATION: Shortness of breath. FINDINGS: A portable view of the chest was obtained. Comparison is made to a prior exam dated 01/15/2025. Patient is again noted to be status post median sternotomy. No change in support tubes or lines. Heart size is stable. Interstitial opacities and left basilar airspace disease are unchanged. No pneumothorax. Impression: No interval change. Images reviewed, interpreted, and dictated by Fab Smith MD Assessment and plan #Acute hypoxic respiratory failure: #Left mainstem bronchus occlusion: #Concern for aspiration pneumonia: #COPD exacerbation - Patient admitted to OSH with evidence of volume overload, increased O2 requirements with acute decompesation yesterday, requiring optiflow. WBC 20K - CT chest from outside hospital with near complete pneumonic infiltration of left lower lobe, mildpatchy areas of pneumonia in the right lung. Near complete bronchial obstruction in the left mainstem, upper/lower segmental and subsegmental bronchi due to significant amount of debris with mediastinal and left axillary adenopathy. - continue with IV Zosyn (Multiple recent admissions) + IV doxycycline - DuoNebs 4 times daily daily plus Pulmicort nebs twice daily -Mucocyst Qhr - Aggressive pulmonary hygiene ordered -intubated 01/14, underwent bronchoscopy showed Left lower lobe mucous plug - Pulmonology consulted, discussed with broaching machine set up operator, will continue current care in ICU - MRSA nares, urine antigens, pneumonia PCR and resp cultures ordered - IV solumedrol 40 mg daily -Labs this morning personally interpreted, WBC 11.7 hemoglobin 9.1 platelet 247 , sodium 146 potassium 2.9, replace and re check -Legionella and Streptococcus antigen negative -Respiratory panel negative -Chest x-ray this morning personally reviewed, improvement of infiltrates #Sepsis: Present at OSH 2/2 to PNA - Evidenced by tachycardia, leukocytosis, pneumonia - Continue IV abx as above -WBC 11.7 -Follow cultures and BAL #Acute on chronic HFpEF - Echo not available but per chart review from OSH, preserved EF. Patient received intermittent IV diuretics at OSH. - TTE noted -hold for diuretics for now due worsening kidney function - Strict I/O, monitor UOP - Continuous telemetry and spO2 - K> 4, Mg>2, potassium 2.9 , replace , magnesium 1.6, replace per protocol # Acute kidney injury Creatinine slightly down to 1.95 IVF, no diuretics for now Hold hydrochlothiazide Will continue to monitor, Nephrology following, discussed with Dr Cobb #Anxiety disorder: - Resume home ativan 0.5 mg qhs prn #GERD: - Resume home PPI #Normocytic anemia - Labs independently reviewed:Hbg 8.2, Hct 25.6 Continue with iron supplement Monitor H&H #HTN Continue with amlodipine and Lopresor Monitor BP #Dementia: - Continue home namenda and aricept - Delirium precautions when extubate : blinds open and lights on during day, sleep aids at night PRN in order to maintain circadian rhythm, frequent re- orientation, encourage family at bedside, limitsedating and anticholinergic medications #Mood disorder: - Continue lexapro 10 mg daily #Hx of CVA: - Continue lipitor 80 mg qhs #Pre-diabetes: - Last A1c 5.6 2 weeks ago - SSI -BG this morning 166, monitor closely while on steroid #CAD s/p CABG x 3 - Continue aspirin 325 mg daily - Continue lopressor 25mg BID daily - imdur 30 mg daily on hold #Chronic T12 burst fracture: - Noted on CT chest with mild central canal stenosis - Recommend outpatient follow-up #Debility -Consult to PT/OT ordered. -Consult to Case Management ordered. -Complicates all aspects of care. CODE STATUS patient is DNR, ok to intubate Total amount of critical care time spent was 35 minutes not counting procedures performed. This time included high complexity decision making to assess and treat vital organ system failure in this patient who has impairment of one or more vital organ systems such that there is a high probability ofimminent or life threatening deterioration of the patient??s condition. Failure to initiate the above interventions on an urgent basis would likely result in sudden, clinically significant or life-threatening deterioration in the patient's condition. The patient required my highest level of preparedness to intervene and I personally spent this critical care time directly and personally managing the patient. This critical care time included obtaining a history; examining the patient; vitals monitoring including pulse oximetry; ordering and review of studies; arranging treatment and plan management; evaluation of patient's response to treatment; re-assessments; and any discussions with familymembers, other providers and ICU staff. * Chanel Cobb MD - 01/16/2025 10:31 AM EDT Subjective History of Present Illness: Margarita Stone is a 74 y.o. female with medical history of Chronic Respiratory Failure on 2L NC at baseline, COPD, CVA with slight residual on word finding, question of Dementia?, HTN/HLD and DM. 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 Near complete bronchial obstruction in the left mainstem, upper/lower segmental and subsegmental bronchi due to significant amount of debris with mediastinal and left axillary adenopathy. WBC 17.9, Cr 1.03. Patient was admitted on 01/12 and was maintained on IV antibiotics with IV doxycycline and Zosyn. Patient has been maintained on IV Lasix Echo on 01/13 was unremarkable Patient had a bronchoscopy on 01/14 showed very thick mucous plugs especially on the left lower lobe that was cleaned and removed, some mucous plugs in the right lower lobe that was cleaned and removed. Base creatinine 1.03 and today 2.23 Still intubated ,no new issues Review of Systems Unable to perform ROS: Intubated Objective Last Recorded Vitals Blood pressure (!) 195/79, pulse 99, temperature 97.9 ??F (36.6 ??C), resp. rate (!) 31, height 1.524 m (5'), weight 48.1 kg (106 lb 0.7 oz), SpO2 98%. Physical Exam Constitutional: Comments: Intubated HENT: Head: Normocephalic and atraumatic. Cardiovascular: Rate and Rhythm: Normal rate and regular rhythm. Heart sounds: Normal heart sounds. Abdominal: General: Abdomen is flat. Palpations: Abdomen is soft. Skin: General: Skin is warm and dry. Labs: Results for orders placed or performed during the hospital encounter of 01/12/25 (from the past 24 hours) Glucose, Nova Meter Status: Abnormal Collection Time: 01/15/25 3:25 PM Result Value Ref Range POC-GLUCOSE 202 (H) 70 - 110 mg/dL Wire Spooler [id number] Glucose, Nova Meter Status: Abnormal Collection Time: 01/15/25 5:07 PM Result Value Ref Range POC-GLUCOSE 226 (H) 70 - 110 mg/dL Wire Spooler [id number] Glucose, Nova Meter Status: Abnormal Collection Time: 01/16/25 12:25 AM Result Value Ref Range POC-GLUCOSE 196 (H) 70 - 110 mg/dL Wire Spooler [id number] Magnesium Status: Normal Collection Time: 01/16/25 3:36 AM Result Value Ref Range Magnesium 1.6 1.6 - 2.6 mg/dL CBC - Hemogram (SJ-BKR) Status: Abnormal Collection Time: 01/16/25 3:36 AM Result Value Ref Range WBC 11.2 (H) 4.0 - 10.0 K/??L RBC 2.76 (L) 3.93 - 5.22 M/??L Hemoglobin 8.2 (L) 11.2 - 15.7 GM/DL Hematocrit 25.6 (L) 34.1 - 44.9 % MCV 93 79 - 95 fL MCH 29.7 25.6 - 32.2 pg MCHC 32.0 (L) 32.2 - 35.5 GM/DL RDW 16.2 (H) 11.7 - 14.4 % Platelets 198 140 - 375 K/CU MM MPV 10.8 9.4 - 12.3 fL Basic Metabolic Panel Status: Abnormal Collection Time: 01/16/25 3:36 AM Result Value Ref Range Sodium 142 136 - 145 meq/L Potassium 2.9 (L) 3.4 - 5.1 meq/L CO2 29 22 - 29 meq/L Chloride 98 98 - 112 meq/L Glucose 161 (H) 82 - 115 mg/dL BUN 34.9 (H) 9.8 - 20.1 mg/dL Creatinine 1.95 (H) 0.50 - 1.20 mg/dL BUN/Creatinine 18 8 - 20 Calcium 8.8 8.4 - 10.2 mg/dL Anion Gap 18 (H) 4 - 12 eGFR (mL/min/1.73m2) 27 (L) >=60 mL/min/1.73m2 Osmolality Calc 294.5 mOsm/kg Phosphorus Status: Abnormal Collection Time: 01/16/25 3:36 AM Result Value Ref Range Phosphorus 5.7 (H) 2.5 - 4.5 mg/dL XR KUB PORTABLE Narrative: KUB HISTORY: Feeding tube placement. COMPARISON: None. FINDINGS: The feeding tube is identified below the diaphragm. The bowel gas pattern is nonspecific. Impression: Feeding tube tip terminates at the junction of the second and third portions of the duodenum. Images reviewed, interpreted, and dictated by Dr. Clint Gaspar. Transcribed by Danyel Ziegler PA-C XR chest AP portable Narrative: PORTABLE CHEST HISTORY: Ongoing respiratory failure. COMPARISON: One day prior. FINDINGS: The heart is normal in size. The mediastinum is unremarkable. There is persistent but improving left lung base pneumonia. There is no pneumothorax. The NG tube has been removed. The Corpak feeding tube courses below the diaphragm. Impression: Persistent but improving left lung base pneumonia. Images reviewed, interpreted, and dictated by Dr. Juan Bonilla. Transcribed by Va Cevallos PA-C. Assessment 1. Stage II acute kidney injury likely multifactorial ischemic and toxic ATN secondary to underlying infection, contrast exposure, IV diuresis etc. cannot rule out associated AIN 2. Anemia likely multifactorial 3. Hypertension 4. Left lung pneumonia 5. Acute metabolic encephalopathy/history of CVA 6. Acute on chronic hypoxic respiratory failure 7. 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 [place], [place], [address] Phone #[phone] Fax #[phone] High complex case CC time of 65 min * Bella Carnes RRT - 01/16/2025 10:30 AM EDT Pt was able to tolerate and SBT for 30 minutes however due to poor Vts <200 and lack of inspiratory efforts, trial aborted. * Roxie Andino RD - 01/16/2025 9:54 AM EDT 01/16: RD check on. Pt remains intubated but off sedation. Attempting SBT, hopeful for extubation. Corpak has been placed in duodenum and TF started @ 20 ml/hr. Orders remain in place. Estimated Needs: [id number] kcal (25-30 kcal/kg) 58 gm pro (1.2 gm/kg) Nutrition Monitoring and Goals: - Continue Jevity 1.5 @ 20 ml/hr, advancing by 10 ml q 12 hrs to goal @ 40 ml/hr (1320 kcal, 56 gm pro). 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 Pt at risk for RFS Goal: wnls Nutrition Risk Level: High Risk Roxie Andino RD * Donnie Jeffery MD - 01/16/2025 8:16 AM EDT Consults PULMONARY AND CRITICAL CARE Consult Note Date of Service: 01/16/2025 Reason for Consult: For critical care management. Referring: MD Thony HPI: This is a 74 y.o. year old female with past medical history of Chronic Respiratory Failure on 2L NCat baseline, COPD, CVA with slight residual on word finding, question of Dementia?, HTN/HLD and DM.She presented to [facility] due to increasing shortness of breath and cough for 1-2 days.Family reports she has had some recurrent pneumonia and issues with aspiration recently. CT chest from outside hospital with near complete pneumonic infiltration of left lower lobe, mild patchy areas of pneumonia in the right lung. Near complete bronchial obstruction in the left mainstem, upper/lower se gmental and subsegmental bronchi due to significant amount of debris with mediastinal and left axillary adenopathy. WBC 17.9, Cr 1.03. Pulmonary has been consulted for ICU management and need for bronchoscopy. 01/13 I have seen and examined the patient this morning, daughter at bedside I have discussed with her about the patient condition answered all her questions and concerns, discussed with her that thepatient has left lower lobe atelectasis could be from mucous plug or aspiration, will check CT chest for evaluation. She said if the patient absolutely need bronchoscopy she is okay with intubating the patient for procedure otherwise the patient is DNR/DNI. Depending on the result of the CT scan wewill consider to do bronchoscopy. Patient was started on chest physiotherapy, flutter valve, incentive spirometry. Echo on 01/13 was done pending report. Patient on Optiflow 55 L and 50%, will titrate down as tolerated, WBC 17.1, sodium 148, fluid balance -750 mL, on doxycycline and Zosyn. 01/14 I have seen and examined the patient this morning, patient remains critically ill, intubated on mechanical ventilation FiO2 60%, was titrated this morning to 50%, will continue to titrate down as tolerated, CT scan of the chest on 01/13 showed left lower lobe consolidation suggestive of pneumonia, with obstruction of left main bronchus and left lower lobe bronchus, will do bronchoscopy today, chest x-ray on 01/14 shows bilateral interstitial infiltrates, left lower lobe atelectasis with obstruction of left main bronchus and left lower lobe bronchus, currently patient off jorge a-, blood pressure is borderline low, ABG was reviewed show metabolic alkalosis, sodium 146, creatinine 1.56, potassium 2.9, WBC 15.6, fluid balance -350 mL, on doxycycline and Zosyn. 01/15 I have seen and examined the patient this morning, patient was sedated this morning, will stop sedation this morning, patient was tried on pressure support this morning for SBT 3 times and patient become apneic, will try again afternoon, chest x-ray on 01/15 showed persistent improving left lung base pneumonia, patient had a bronchoscopy on 01/14 showed very thick mucous plugs especially onthe left lower lobe that was cleaned and removed, some mucous plugs in the right lower lobe that was cleaned and removed, BAL was sent from left lower lobe for cultures, fluid balance +102 mL, on doxycycline and Zosyn. 01/16 I have seen and examined the patient this morning, patient has been off sedation since yesterday, still very weak, when patient on pressure support take low tidal volume most of the time less than 250, patient was encouraged to take deep breaths, if the patient continue to fail SBT we will discuss with the family the options between tracheostomy and terminal extubation to DNR/DNI and comfort care, chest x-ray on 01/16 interpreted independently showed low lung volumes, bilateral interstitial infiltrate, WBC 11.2, hemoglobin 8.2, creatinine 1.95, fluid balance -500 cc, on doxycycline and Zosyn. Hypokalemia and hypomagnesemia was replaced this morning. PAST MEDICAL HISTORY: No past medical history on file. PAST SURGICAL HISTORY: No past surgical history on file. No past surgical history on file. Allergies: Not on File SOCIAL HISTORY: FAMILY HISTORY: family history is not on file. Review of Systems Unable to perform ROS: Intubated Vital Signs Temp: [95 ??F (35 ??C)-99.7 ??F (37.6 ??C)] 97.9 ??F (36.6 ??C) Pulse: [61-108] 78 Resp: [9-200] 31 BP: (114-219)/(56-88) 170/77 FiO2 (%): [40 %] 40 % Current: Temp: 97.9 ??F (36.6 ??C) Pulse: 78 Resp: (!) 31 BP: (!) 170/77 SpO2: 98 % 24 Hour: BP Min: 114/57 Max: 219/88 Temp Min: 95 ??F (35 ??C) Max: 99.7 ??F (37.6 ??C) Pulse Min: 61 Max: 108 Resp Min: 9 Max: 200 SpO2 Min: 86 % Max: 100 % Intake/Output: I/O last 3 completed shifts: In: 651.2 [I.V.:651.2] Out: 880 [Urine:880] Physical Exam Constitutional: Appearance: She is ill-appearing. HENT: Head: Normocephalic. Mouth/Throat: Mouth: Mucous membranes are dry. Eyes: Pupils: Pupils are equal, round, and reactive to light. Cardiovascular: Rate and Rhythm: Normal rate and regular rhythm. Pulmonary: Breath sounds: Rhonchi present. Comments: Diminshed left lung breath sounds, crackles noted Abdominal: General: Bowel sounds are normal. Musculoskeletal: General: No deformity. Skin: Capillary Refill: Capillary refill takes less than 2 seconds. Coloration: Skin is pale. Neurological: Comments: Intubated and sedated. Intake/Output: I/O last 3 completed shifts: In: 651.2 [I.V.:651.2] Out: 880 [Urine:880] LABS Results for orders placed or performed during the hospital encounter of 01/12/25 (from the past 24 hours) ABG Status: Abnormal Collection Time: 01/15/25 8:33 AM Result Value Ref Range pH, Arterial 7.53 (H) 7.35 - 7.45 pCO2, Arterial 40 35 - 45 mm Hg pO2, Arterial 88 80 - 100 mm Hg HCO3, Arterial 33 (H) 20 - 26 mmol/L Base Excess, Arterial 9.4 (H) -2.0 - 2.0 mmol/L O2 Sat, Arterial 98.1 95.0 - 100.0 % CTO2 ARTERIAL 5.7 mmol/L THB ARTERIAL 9.2 (L) 12.0 - 18.0 g/dL PaO2/FIO2 calculated 219.0 [facility] COLLECTION SITE Right Brachial Arterial Puncture Yes Blood Gas O2 Delivery Device Ventilator Blood Gas PEEP 5.0 Blood Gas Tidal Volume 315.0 Blood Gas PT Temperature C 37.0 Naif's Test Not Applicable Vent Mode Volume Control Plus ABG Number of Draw Attempts 1 Set Rate 14.0 FIO2 40.0 Blood Gas Temperature Corrected Results No No ECG 12 lead Status: None (In process) Collection Time: 01/15/25 9:08 AM Result Value Ref Range SYSTOLIC BLOOD PRESSURE (MCT) 121 mmHg DIASTOLIC BLOOD PRESSURE (MCT) 59 mmHg VENTRICULAR RATE EKG/MIN 93 BPM ATRIAL RATE (MCT) 93 BPM ND Interval 176 ms QRS-INTERVAL (MSEC) 88 ms QT Interval 346 ms QTC Interval 430 ms P Chaplin 44 degrees R AXIS (MCT) 79 degrees T Wave Chaplin -151 degrees [place] Diagnosis Normal sinus rhythm ST & T wave abnormality, consider inferolateral ischemia Abnormal ECG When compared with ECG of 14-JAN-2025 21:04, premature ventricular complexes are no longer present Glucose, Nova Meter Status: Abnormal Collection Time: 01/15/25 3:25 PM Result Value Ref Range POC-GLUCOSE 202 (H) 70 - 110 mg/dL Wire Spooler [id number] Glucose, Nova Meter Status: Abnormal Collection Time: 01/15/25 5:07 PM Result Value Ref Range POC-GLUCOSE 226 (H) 70 - 110 mg/dL Wire Spooler [id number] Glucose, Nova Meter Status: Abnormal Collection Time: 01/16/25 12:25 AM Result Value Ref Range POC-GLUCOSE 196 (H) 70 - 110 mg/dL Wire Spooler [id number] Magnesium Status: Normal Collection Time: 01/16/25 3:36 AM Result Value Ref Range Magnesium 1.6 1.6 - 2.6 mg/dL CBC - Hemogram (SJ-BKR) Status: Abnormal Collection Time: 01/16/25 3:36 AM Result Value Ref Range WBC 11.2 (H) 4.0 - 10.0 K/??L RBC 2.76 (L) 3.93 - 5.22 M/??L Hemoglobin 8.2 (L) 11.2 - 15.7 GM/DL Hematocrit 25.6 (L) 34.1 - 44.9 % MCV 93 79 - 95 fL MCH 29.7 25.6 - 32.2 pg MCHC 32.0 (L) 32.2 - 35.5 GM/DL RDW 16.2 (H) 11.7 - 14.4 % Platelets 198 140 - 375 K/CU MM MPV 10.8 9.4 - 12.3 fL Basic Metabolic Panel Status: Abnormal Collection Time: 01/16/25 3:36 AM Result Value Ref Range Sodium 142 136 - 145 meq/L Potassium 2.9 (L) 3.4 - 5.1 meq/L CO2 29 22 - 29 meq/L Chloride 98 98 - 112 meq/L Glucose 161 (H) 82 - 115 mg/dL BUN 34.9 (H) 9.8 - 20.1 mg/dL Creatinine 1.95 (H) 0.50 - 1.20 mg/dL BUN/Creatinine 18 8 - 20 Calcium 8.8 8.4 - 10.2 mg/dL Anion Gap 18 (H) 4 - 12 eGFR (mL/min/1.73m2) 27 (L) >=60 mL/min/1.73m2 Osmolality Calc 294.5 mOsm/kg No results found for: PT , INR , PTT CHEM7: Sodium Date Value Ref Range Status 01/16/2025 142 136 - 145 meq/L Final Potassium Date Value Ref Range Status 01/16/2025 2.9 (L) 3.4 - 5.1 meq/L Final Chloride Date Value Ref Range Status 01/16/2025 98 98 - 112 meq/L Final CO2 Date Value Ref Range Status 01/16/2025 29 22 - 29 meq/L Final BUN Date Value Ref Range Status 01/16/2025 34.9 (H) 9.8 - 20.1 mg/dL Final Creatinine Date Value Ref Range Status 01/16/2025 1.95 (H) 0.50 - 1.20 mg/dL Final eGFR (mL/min/1.73m2) Date Value Ref Range Status 01/16/2025 27 (L) >=60 mL/min/1.73m2 Final Comment: ESTIMATED GFR IS NOT ACCURATE CREATININE CLEARANCE IN PREDICTING GLOMERULAR FILTRATION RATE. ESTIMATED GFR IS NOT APPLICABLE FOR DIALYSIS PATIENTS. Calcium Date Value Ref Range Status 01/16/2025 8.8 8.4 - 10.2 mg/dL Final Lab Results Component Value Date AST 18 01/14/2025 ALT 10 01/14/2025 No results for input(s): POCGLU in the last 72 hours. No results for input(s): POCPH , POCPCO2 , POCPO2 , POCABG in the last 72 hours. Invalid input(s): POCSAT , POCART , ARTPOC Microbiology: Microbiology Results (last 7 days) Procedure Component Value Units Date/Time AFB Culture And Stain [[id number]] Collected: 01/14/251132 Order Status: Completed Specimen: BAL from Lung, Left Lower Lobe Updated: 01/15/25 1413 AFB Smear No acid fast bacilli seen Respiratory Culture [[id number]] Collected: 01/14/251132 Order Status: Completed Specimen: BAL from Lung, Left Lower Lobe Updated: 01/15/25 0633 Result No growth Gram Stain Result Rare WBCs No organisms seen Narrative: The pneumonia PCR panel may detect organisms that do not grow on the culture. Correlate PCR, culture, and patient condition. Rule out and consider respiratory tract colonization,particularly in tracheostomy patients. Pneumonia PCR Panel w/Respiratory Culture [[id number]] Collected: 01/14/251132 Order Status: Resulted Specimen: BAL from Lung, Left Lower Lobe Updated: 01/15/25 0632 Narrative: The following orders were created for panel order Pneumonia PCR Panel w/Respiratory Culture. Procedure Abnormality Status --------- ------ Pneumonia PCR Panel[[id number]] Normal Edited Result - FINAL Respiratory Culture[[id number]] Preliminary result Please view results for these tests on the individual orders. Pneumonia PCR Panel [[id number]] (Normal) Collected: 01/14/25 113 Order Status: Completed Specimen: BAL from Lung, Left Lower Lobe Updated: 01/15/25 0632 ACINETOBACTER CALCOACETICUS-BAUMANNII COMPLEX Not detected ENTEROBACTER CLOACAE COMPLEX Not detected ESCHERICHIA COLI Not detected HAEMOPHILUS INFLUENZAE Not detected KLEBSIELLA AEROGENES Not detected KLEBSIELLA OXYTOCA Not detected KLEBSIELLA PNEUMONIAE GROUP Not detected MORAXELLA CATARRHALIS Not detected PROTEUS Not detected PSEUDOMONAS AERUGINOSA Not detected SERRATIA MARCESCENS Not detected STAPHYLOCOCCUS AUREUS Not detected STREPTOCOCCUS AGALACTIAE (GROUP B) Not detected STREPTOCOCCUS PNEUMONIAE Not detected STREPTOCOCCUS PYOGENES (GROUP A) Not detected CTX-M Non Applicable IMP Non Applicable KPC Non Applicable MEC A/C and MREJ Non Applicable NDM Non Applicable OXA-48-LIKE Non Applicable VIM Non Applicable CHLAMYDIA PNEUMONIAE Not detected LEGIONELLA PNEUMOPHILA Not detected MYCOPLASMA PNEUMONIAE Not detected ADENOVIRUS Not detected CORONAVIRUS (NOT COVID19) Not detected HUMAN METAPNEUMOVIRUS Not detected HUMAN RHINOVIRUS/ENTEROVIRUS Not detected INFLUENZA A Not detected INFLUENZA B Not detected PARAINFLUENZA VIRUS Not detected RESPIRATORY SYNCYTIAL VIRUS Not detected Narrative: Antimicrobial resistance can occur via multiple mechanisms. A NOT DETECTED result for a genetic marker of antimicrobial resistance does not indicate susceptibility to associated antimicrobial drugs or drug classes. A DETECTED result for a genetic marker of antimicrobial resistance cannot be definitively linked to the microorganism(s)detected. Culture is required to obtain isolates for antimicrobial susceptibility testing and PharmatrophiXArray Pneumonia Panel results should be used in conjunction with culture results for determination of susceptibility or resistance. Culture Fungus W/AALIYAH Or Mayte Ink [[id number]] Collected: 01/14/25 113 Order Status: Completed Specimen: BAL from Lung, Left Lower Lobe Updated: 01/14/25 1227 AALIYAH Prep No fungal elements seen BAL: Bronchial Culture + Gram Stain [[id number]] Collected: 01/14/25 113 Order Status: Canceled Specimen: BAL from Lung, Left Lower Lobe Updated: 01/14/25 113 Strep pneumoniae urine antigen [[id number]] (Normal) Collected: 01/12/25 1033 Order Status: Completed Specimen: Urine, Unspecified Source Updated: 01/12/25 1114 Strep pneumoniae Antigen Presumptive negative for pneumococcal pneumonia - see comment Narrative: A presumptive negative result suggests no current or recent pneumococcal infection. Infection due to S. pneumoniae cannot be ruled out since the antigen present in the specimen may be below the detection limit of the test. Pneumonia PCR Panel w/Respiratory Culture [[id number]] Collected: 01/12/25606 Order Status: Completed Specimen: Sputum from Expectorated Updated: 01/12/25 0847 Narrative: The following orders were created for panel order Pneumonia PCR Panel w/Respiratory Culture. Procedure Abnormality Status --------- ------ Pneumonia PCR Panel[[id number]] Respiratory Culture[[id number]] Final result Please view results for these tests on the individual orders. Respiratory Culture [[id number]] Collected: 01/12/25606 Order Status: Completed Specimen: Sputum from Expectorated Updated: 01/12/25 0847 Result Sputum unsatisfactory for culture. Microscopic evaluation indicates significant upper respiratory contamination with epithelial cells.Submit another specimen. Gram Stain Result >25 Epithelial cells/LPF Narrative: Sputum rejection called to Respiratory Care Team Pneumonia PCR Panel [[id number]] Collected: 01/12/25606 Order Status: Canceled Specimen: Sputum from Expectorated Updated: 01/12/25 0611 MRSA Screen [[id number]] (Normal) Collected: 01/12/25 0329 Order Status: Completed Specimen: Nasal from Nares Updated: 01/12/25 0532 MRSA by PCR [facility] MRSA Not Detected by PCR Respiratory Panel [[id number]] (Normal) Collected: 01/12/25 032 Order Status: Completed Specimen: Nasopharyngeal Swab Updated: 01/12/25 0449 ADENOVIRUS Not detected CORONAVIRUS 229E Not detected CORONAVIRUS HKU1 Not detected CORONAVIRUS NL63 Not detected CORONAVIRUS OC43 Not detected SARS-COV2/RT-PCR Not Detected HUMAN METAPNEUMOVIRUS Not detected HUMAN RHINOVIRUS/ENTEROVIRUS Not detected INFLUENZA A Not detected INFLUENZA B Not detected PARAINFLUENZA VIRUS 1 Not detected PARAINFLUENZA VIRUS 2 Not detected PARAINFLUENZA VIRUS 3 Not detected PARAINFLUENZA VIRUS 4 Not detected RESPIRATORY SYNCYTIAL VIRUS Not detected BORDETELLA PARAPERTUSSIS Not detected BORDETELLA PERTUSSIS Not detected CHLAMYDIA PNEUMONIAE Not detected MYCOPLASMA PNEUMONIAE Not detected Narrative: Testing was performed with RT-PCR methodology using the [employer] Respiratory Panel 2.1 which has [employer]ADe Brenda approval for SARS-CoV-2 testing. Negative results do not preclude infection with the SARS-CoV-2 virus and should not be used as the sole basis of patient treatment or public health decisions.Negative results must be considered in the context of an individual's recent exposures, history, and presence of clinical signs/symptoms. Follow-up testing should be performed according to the current CDC recommendations. Other viruses and bacteria not targeted by this PCR panel cannot be excluded; therefore clinical correlation and follow up of serology, culture results, and other molecular studies is required. The results are not intended to be used as the sole means for clinical diagnosis or patient management decisions. This sample was tested at the [facility] using the CREATIV.COMArray Respiratory Panel. It is FDA cleared and has been verified and approved by the [facility] for clinical use on nasopharyngeal swab specimens. The performance of the FilmArray RP has not been established in individuals who received influenza vaccine. Recent administration of a nasal influenza vaccine may cause false positive results for Influenza A and/or Influenza B. Radiology Results (last day) Procedure Component Value Units Date/Time XR chest AP portable - In process [[id number]] Resulted: 01/16/25 0413 Order Status: Sent Updated: 01/16/25513 This result has not been signed. Information might be incomplete. XR KUB PORTABLE [[id number]] Collected: 01/15/2532 Order Status: Completed Updated: 01/15/25900 Narrative: KUB HISTORY: Feeding tube placement. COMPARISON: None. FINDINGS: The feeding tube is identified below the diaphragm. The bowel gas pattern is nonspecific. Impression: Feeding tube tip terminates at the junction of the second and third portions of the duodenum. Images reviewed, interpreted, and dictated by Dr. Clint Gaspar. Transcribed by Danyel Ziegler PA-C No valid procedures specified. ASSESSMENT: Pulmonary Acute on Chronic Hypoxemic Respiratory Failure -CT chest from outside hospital with near complete pneumonic infiltration of left lower lobe, mild patchy areas of pneumonia in the right lung. Near complete bronchial obstruction in the left mainstem, upper/lower segmental and subsegmental bronchi due to significant amount of debris with mediastinal and left axillary adenopathy Recurrent pneumonia due to aspiration. COPD with exacerbation Former tobacco abuse Neurology: Dementia? On namenda and Aricept H/O CVA with some word finding issues Cardiology: Hypertension HLD Infectious disease: Leukocytosis Left lung pneumonia Nephrology: Stable bun/Cr CKD 3a Gastroenterology: Dysphagia likely? Recurrent aspiration pneumonia GERD Endocrine: DM Hematology: Anemia; Mild PLAN: Maintain sat >89%, currently on MV. Patient has failed SBT 3 times yesterday, this morning patient taking low tidal volume less than 250 most of the time, patient was encouraged to take deep breaths, will continue pressure support, if we fail to extubate will discuss with family about tracheostomy versus extubate to DNR/DNI to comfort care. chest x-ray on 01/15 showed persistent improving left lung base pneumonia. patient had a bronchoscopy on 01/14 showed very thick mucous plugs especially on the left lower lobe that was cleaned and removed, some mucous plugs in the right lower lobe that was cleaned and removed, BAL was sent from left lower lobe for cultures CT scan of the chest on 01/13 showed left lower lobe consolidation suggestive of pneumonia, with obstruction of left main bronchus and left lower lobe bronchus, will do bronchoscopy today. chest x-ray on 01/14 shows bilateral interstitial infiltrates, left lower lobe atelectasis with obstruction of left main bronchus and left lower lobe bronchus Started on IV Solu-Medrol, DuoNeb. Budesonide. Patient was started on chest physiotherapy, flutter valve, incentive spirometry. Stopped sedation for SBT. Keep head of bed at 30 degrees and maintain aspiration precautions. Patient overnight was hemodynamically unstable on jorge a-, currently off jorge a-. Hold amlodipine 5 daily, hydrochlorothiazide. On aspirin, atorvastatin, metoprolol. Echocardiogram: Echo was done on 01/13 pending report Hemodynamic: Hemodynamically stable Hemodynamic support: Maintain MAP above 65. Antibiotics: Doxycycline and Zosyn Follow up on cultures. S/p IV Lasix 40 x 1. Bun/Cr reviewed Monitor renal functions and electrolytes closely. Hypokalemia, hypomagnesemia, was replaced, continue to replace electrolytes per protocol. Maintain serum potassium of 4.0, magnesium of 2.0 and phosphorus of 2.5 and normal latest calcium with appropriate replacement. Monitor I&O. Avoid nephrotoxins. Nutrition: Has Corpak, started on tube feeding. Started on bowel Regimen. Hyperglycemia: Target glucose 140-180 mg/dL. SSI, monitor BS. Hold home antidiabetic medications. Monitor H&H. Transfuse as needed. Musculoskeletal: Consulted PT/OT. GI prophylaxis: Pantoprazole DVT prophylaxis: Subcu heparin Code Status: Current Code Status DNR: Interventions Full: Intubation OK Her sister at bedside, I have discussed with her about the option to do tracheostomy if the patientcontinue to fail SBT versus extubate to DNI/DNR and if do worse to do comfort care, she will discuss with the other 2 sisters and they will let us know about that. Prognosis: Poor. At risk for respiratory and cardiovascular complications. Disposition: The patient remain critically ill, would recommend to keep the patein in the ICU. CRITICAL CARE TIME: Cumulative critical care time spent on the patient for the day excluding procedures 33 minutes. Patient seen and examined at bedside. I performed history and physical examination. I reviewed laboratory studies, imaging studies, other diagnostic studies, and inpatient medications. Chest imaging studies visualized and reviewed independent of radiologist. Case discussed with the multidisciplinary team including nurse practitioner, nurse, RT, garnetter, pharmacist, and case management during multidisciplinary round. I Dr.Hazim Latia MD, have personally evaluated the patient and performed a [id number] diagnostic evaluation on this patient; I have Obtained history, performed physical examination, reviewed laboratory studies. I have reviewed images independent of radiologist. I have actively directed the medical care, formulated diagnosis, and the plan of care. Patient requires a high complexity of decision making for assessment. Voice photographer apprentice technology (Zokem) is used for dictation of this note and sound-alike words might be erroneously placed despite reviewing the note for accuracy. Errors in dictation may reflect use of voice recognition software and not all errors in photographer apprentice may have been detected prior to signing. It may contain errors and words that were not intended to be used. Please contact the provider for errors or clarifications. * Bella Carnes, BACK PAD INSPECTOR - 01/16/2025 8:05 AM EDT Pt has been off sedation since yesterday 01/15 morning. Attempted an SBT, however aborted due to lack of inspiratory efforts RR 5-7 bpm and Vts< 100. * Ana Grover MD - 01/15/2025 12:52 PM EDT Subjective Patient seen and examined this morning, intubated, on mechanical ventilator, patient have low urineoutput. Kidney function worsening. Review of Systems Unable to obtain secondary to clinical condition Objective Last Recorded Vitals Blood pressure 121/59, pulse 96, temperature 99.5 ??F (37.5 ??C), resp. rate 15, height 1.524 m (5'), weight 48.1 kg (106 lb 0.7 oz), SpO2 99%. Physical Exam Head atraumatic normal cephalic Constitutional intubated , chronically ill looking appearing Respiratory decreased air entry bilateral Cardiovascular S1-S2 no murmur gallops or rubs appreciated Labs: Results for orders placed or performed during the hospital encounter of 01/12/25 (from the past 24 hours) Glucose, Nova Meter Status: Abnormal Collection Time: 01/14/25 5:45 PM Result Value Ref Range POC-GLUCOSE 240 (H) 70 - 110 mg/dL Wire Spooler [id number] ECG 12 lead Status: None (In process) Collection Time: 01/14/25 9:04 PM Result Value Ref Range SYSTOLIC BLOOD PRESSURE (MCT) 116 mmHg DIASTOLIC BLOOD PRESSURE (MCT) 58 mmHg VENTRICULAR RATE EKG/MIN 87 BPM ATRIAL RATE (MCT) 87 BPM ND Interval 166 ms QRS-INTERVAL (MSEC) 80 ms QT Interval 364 ms QTC Interval 438 ms P Chaplin 67 degrees R AXIS (MCT) 91 degrees T Wave Chaplin 143 degrees [place] Diagnosis Sinus rhythm with occasional premature ventricular complexes Rightward axis Cannot rule out Anterior infarct (cited on or before 12-JAN-2025) ST & T wave abnormality, consider inferolateral ischemia Abnormal ECG When compared with ECG of 13-JAN-2025 21:37, premature ventricular complexes are now present aberrant conduction is no longer present Questionable change in initial forces of Anterior leads ST elevation now present in Inferior leads Glucose, Nova Meter Status: Abnormal Collection Time: 01/15/25 12:22 AM Result Value Ref Range POC-GLUCOSE 158 (H) 70 - 110 mg/dL Wire Spooler [id number] Magnesium Status: Normal Collection Time: 01/15/25 3:37 AM Result Value Ref Range Magnesium 1.9 1.6 - 2.6 mg/dL CBC - Hemogram (-BK) Status: Abnormal Collection Time: 01/15/25 3:37 AM Result Value Ref Range WBC 12.7 (H) 4.0 - 10.0 K/??L RBC 3.07 (L) 3.93 - 5.22 M/??L Hemoglobin 9.1 (L) 11.2 - 15.7 GM/DL Hematocrit 28.1 (L) 34.1 - 44.9 % MCV 92 79 - 95 fL MCH 29.6 25.6 - 32.2 pg MCHC 32.4 32.2 - 35.5 GM/DL RDW 16.5 (H) 11.7 - 14.4 % Platelets 247 140 - 375 K/CU MM MPV 11.0 9.4 - 12.3 fL Basic Metabolic Panel Status: Abnormal Collection Time: 01/15/25 3:37 AM Result Value Ref Range Sodium 145 136 - 145 meq/L Potassium 3.6 3.4 - 5.1 meq/L CO2 28 22 - 29 meq/L Chloride 101 98 - 112 meq/L Glucose 95 82 - 115 mg/dL BUN 34.1 (H) 9.8 - 20.1 mg/dL Creatinine 2.23 (H) 0.50 - 1.20 mg/dL BUN/Creatinine 15 8 - 20 Calcium 8.7 8.4 - 10.2 mg/dL Anion Gap 20 (H) 4 - 12 eGFR (mL/min/1.73m2) 23 (L) >=60 mL/min/1.73m2 Osmolality Calc 296.2 mOsm/kg Glucose, Nova Meter Status: None Collection Time: 01/15/25 5:43 AM Result Value Ref Range POC-GLUCOSE 99 70 - 110 mg/dL Wire Spooler [id number] ABG Status: Abnormal Collection Time: 01/15/25 8:33 AM Result Value Ref Range pH, Arterial 7.53 (H) 7.35 - 7.45 pCO2, Arterial 40 35 - 45 mm Hg pO2, Arterial 88 80 - 100 mm Hg HCO3, Arterial 33 (H) 20 - 26 mmol/L Base Excess, Arterial 9.4 (H) -2.0 - 2.0 mmol/L O2 Sat, Arterial 98.1 95.0 - 100.0 % CTO2 ARTERIAL 5.7 mmol/L THB ARTERIAL 9.2 (L) 12.0 - 18.0 g/dL PaO2/FIO2 calculated 219.0 [facility] COLLECTION SITE Right Brachial Arterial Puncture Yes Blood Gas O2 Delivery Device Ventilator Blood Gas PEEP 5.0 Blood Gas Tidal Volume 315.0 Blood Gas PT Temperature C 37.0 Naif's Test Not Applicable Vent Mode Volume Control Plus ABG Number of Draw Attempts 1 Set Rate 14.0 FIO2 40.0 Blood Gas Temperature Corrected Results No No ECG 12 lead Status: None (In process) Collection Time: 01/15/25 9:08 AM Result Value Ref Range SYSTOLIC BLOOD PRESSURE (MCT) 121 mmHg DIASTOLIC BLOOD PRESSURE (MCT) 59 mmHg VENTRICULAR RATE EKG/MIN 93 BPM ATRIAL RATE (MCT) 93 BPM ND Interval 176 ms QRS-INTERVAL (MSEC) 88 ms QT Interval 346 ms QTC Interval 430 ms P Chaplin 44 degrees R AXIS (MCT) 79 degrees T Wave Chaplin -151 degrees [place] Diagnosis Normal sinus rhythm ST & T wave abnormality, consider inferolateral ischemia Abnormal ECG When compared with ECG of 14-JAN-2025 21:04, premature ventricular complexes are no longer present XR KUB PORTABLE Narrative: KUB HISTORY: Feeding tube placement. COMPARISON: None. FINDINGS: The feeding tube is identified below the diaphragm. The bowel gas pattern is nonspecific. Impression: Feeding tube tip terminates at the junction of the second and third portions of the duodenum. Images reviewed, interpreted, and dictated by Dr. Clint Gaspar. Transcribed by Danyel Ziegler PA-C XR chest AP portable Narrative: PORTABLE CHEST HISTORY: Ongoing respiratory failure. COMPARISON: One day prior. FINDINGS: The heart is normal in size. The mediastinum is unremarkable. There is persistent but improving left lung base pneumonia. There is no pneumothorax. The NG tube has been removed. The Corpak feeding tube courses below the diaphragm. Impression: Persistent but improving left lung base pneumonia. Images reviewed, interpreted, and dictated by Dr. Juan Bonilla. Transcribed by Va Cevallos PA-C. Assessment and plan #Acute hypoxic respiratory failure: #Left mainstem bronchus occlusion: #Concern for aspiration pneumonia: #COPD exacerbation - Patient admitted to OSH with evidence of volume overload, increased O2 requirements with acute decompesation yesterday, requiring optiflow. WBC 20K - CT chest from outside hospital with near complete pneumonic infiltration of left lower lobe, mildpatchy areas of pneumonia in the right lung. Near complete bronchial obstruction in the left mainstem, upper/lower segmental and subsegmental bronchi due to significant amount of debris with mediastinal and left axillary adenopathy. - continue with IV Zosyn (Multiple recent admissions) + IV doxycycline - DuoNebs 4 times daily daily plus Pulmicort nebs twice daily -Mucocyst Qhr - Aggressive pulmonary hygiene ordered -intubated 01/14, underwent bronchoscopy showed Left lower lobe mucous plug - Pulmonology consulted, discussed with broaching machine set up operator, will continue current care in ICU - Strict NPO - MRSA nares, urine antigens, pneumonia PCR and resp cultures ordered - IV solumedrol 40 mg daily for severe CAP -Labs this morning personally interpreted, WBC 12.7, hemoglobin 9.1 platelet 247 , sodium 146 potassium 3.6 -ABG today personally interpreted, pH 7.53, pCO2 40, pO2 88 -Legionella and Streptococcus antigen negative -Respiratory panel negative -Chest x-ray this morning personally reviewed, improvement of infiltrates #Sepsis: Present at OSH 2/2 to PNA - Evidenced by tachycardia, leukocytosis, pneumonia - Continue IV abx as above -WBC 12.7 -Follow cultures and BAL #Acute on chronic HFpEF - Echo not available but per chart review from OSH, preserved EF. Patient received intermittent IV diuretics at OSH. - TTE ordered - Repeat CXR and labs and will determine need for diuretic therapy - Strict I/O, monitor UOP - Continuous telemetry and spO2 - K> 4, Mg>2, potassium 3.5, magnesium 1.9 # Acute kidney failure, worsening Creatinine up to 2.23, worsening IVF, no diuretics for now Will continue to monitor, consult nephrology #Anxiety disorder: - Resume home ativan 0.5 mg qhs prn #GERD: - Resume home PPI #Normocytic anemia - Labs independently reviewed: Hemoglobin 10.8, hematocrit 32.3 #Dementia: - Continue home namenda and aricept - Delirium precautions: blinds open and lights on during day, sleep aids at night PRN in order to maintain circadian rhythm, frequent re-orientation, encourage family at bedside, limit sedating and anticholinergic medications #Mood disorder: - Continue lexapro 10 mg daily #Hx of CVA: - Continue lipitor 80 mg qhs #Pre-diabetes: - Last A1c 5.6 2 weeks ago - Start SSI #CAD s/p CABG x 3 - Continue aspirin 325 mg daily - Continue toprol 100 mg daily - Continue home imdur 30 mg daily #Chronic T12 burst fracture: - Noted on CT chest with mild central canal stenosis - Recommend outpatient follow-up #Debility -Consult to PT/OT ordered. -Consult to Case Management ordered. -Complicates all aspects of care. CODE STATUS patient is DNR, ok to intubate Total amount of critical care time spent was 34 minutes not counting procedures performed. This time included high complexity decision making to assess and treat vital organ system failure in this patient who has impairment of one or more vital organ systems such that there is a high probability ofimminent or life threatening deterioration of the patient??s condition. Failure to initiate the above interventions on an urgent basis would likely result in sudden, clinically significant or life-threatening deterioration in the patient's condition. The patient required my highest level of preparedness to intervene and I personally spent this critical care time directly and personally managing the patient. This critical care time included obtaining a history; examining the patient; vitals monitoring including pulse oximetry; ordering and review of studies; arranging treatment and plan management; evaluation of patient's response to treatment; re-assessments; and any discussions with familymembers, other providers and ICU staff. * Bella Carnes RRT - 01/15/2025 10:30 AM EDT Have attempted an SBT 3 separate times, all aborted due to pt going apneic/ lack of inspiratory efforts. * Bella Carnes RRT - 01/15/2025 8:38 AM EDT Pt is on fentanyl. No weaning at this time. * Donnie Jeffery MD - 01/15/2025 8:24 AM EDT Consults PULMONARY AND CRITICAL CARE Consult Note Date of Service: 01/15/2025 Reason for Consult: For critical care management. Referring: MD Thony HPI: This is a 74 y.o. year old female with past medical history of Chronic Respiratory Failure on 2L NCat baseline, COPD, CVA with slight residual on word finding, question of Dementia?, HTN/HLD and DM.She presented to [facility] due to increasing shortness of breath and cough for 1-2 days.Family reports she has had some recurrent pneumonia and issues with aspiration recently. CT chest from outside hospital with near complete pneumonic infiltration of left lower lobe, mild patchy areas of pneumonia in the right lung. Near complete bronchial obstruction in the left mainstem, upper/lower se gmental and subsegmental bronchi due to significant amount of debris with mediastinal and left axillary adenopathy. WBC 17.9, Cr 1.03. Pulmonary has been consulted for ICU management and need for bronchoscopy. 01/13 I have seen and examined the patient this morning, daughter at bedside I have discussed with her about the patient condition answered all her questions and concerns, discussed with her that thepatient has left lower lobe atelectasis could be from mucous plug or aspiration, will check CT chest for evaluation. She said if the patient absolutely need bronchoscopy she is okay with intubating the patient for procedure otherwise the patient is DNR/DNI. Depending on the result of the CT scan wewill consider to do bronchoscopy. Patient was started on chest physiotherapy, flutter valve, incentive spirometry. Echo on 01/13 was done pending report. Patient on Optiflow 55 L and 50%, will titrate down as tolerated, WBC 17.1, sodium 148, fluid balance -750 mL, on doxycycline and Zosyn. 01/14 I have seen and examined the patient this morning, patient remains critically ill, intubated on mechanical ventilation FiO2 60%, was titrated this morning to 50%, will continue to titrate down as tolerated, CT scan of the chest on 01/13 showed left lower lobe consolidation suggestive of pneumonia, with obstruction of left main bronchus and left lower lobe bronchus, will do bronchoscopy today, chest x-ray on 01/14 shows bilateral interstitial infiltrates, left lower lobe atelectasis with obstruction of left main bronchus and left lower lobe bronchus, currently patient off jorge a-, blood pressure is borderline low, ABG was reviewed show metabolic alkalosis, sodium 146, creatinine 1.56, potassium 2.9, WBC 15.6, fluid balance -350 mL, on doxycycline and Zosyn. 01/15 I have seen and examined the patient this morning, patient was sedated this morning, will stop sedation this morning, patient was tried on pressure support this morning for SBT 3 times and patient become apneic, will try again afternoon, chest x-ray on 01/15 showed persistent improving left lung base pneumonia, patient had a bronchoscopy on 01/14 showed very thick mucous plugs especially onthe left lower lobe that was cleaned and removed, some mucous plugs in the right lower lobe that was cleaned and removed, BAL was sent from left lower lobe for cultures, fluid balance +102 mL, on doxycycline and Zosyn. PAST MEDICAL HISTORY: No past medical history on file. PAST SURGICAL HISTORY: No past surgical history on file. No past surgical history on file. Allergies: Not on File SOCIAL HISTORY: FAMILY HISTORY: family history is not on file. Review of Systems Unable to perform ROS: Intubated Vital Signs Temp: [98.8 ??F (37.1 ??C)-99.9 ??F (37.7 ??C)] 99.5 ??F (37.5 ??C) Pulse: [64-116] 74 Resp: [13-85] 15 BP: (82-174)/(44-74) 109/55 FiO2 (%): [40 %-100 %] 40 % Current: Temp: 99.5 ??F (37.5 ??C) Pulse: 74 Resp: 15 BP: 109/55 SpO2: 99 % 24 Hour: BP Min: 82/46 Max: 174/74 Temp Min: 98.8 ??F (37.1 ??C) Max: 99.9 ??F (37.7 ??C) Pulse Min: 64 Max: 116 Resp Min: 13 Max: 85 SpO2 Min: 89 % Max: 100 % Intake/Output: I/O last 3 completed shifts: In: 138.5 [I.V.:138.5] Out: 680 [Urine:680] Physical Exam Constitutional: Appearance: She is ill-appearing. HENT: Head: Normocephalic. Mouth/Throat: Mouth: Mucous membranes are dry. Eyes: Pupils: Pupils are equal, round, and reactive to light. Cardiovascular: Rate and Rhythm: Normal rate and regular rhythm. Pulmonary: Breath sounds: Rhonchi present. Comments: Diminshed left lung breath sounds, crackles noted Abdominal: General: Bowel sounds are normal. Musculoskeletal: General: No deformity. Skin: Capillary Refill: Capillary refill takes less than 2 seconds. Coloration: Skin is pale. Neurological: Comments: Intubated and sedated. Intake/Output: I/O last 3 completed shifts: In: 138.5 [I.V.:138.5] Out: 680 [Urine:680] LABS Results for orders placed or performed during the hospital encounter of 01/12/25 (from the past 24 hours) Respiratory Culture Status: None (Preliminary result) Collection Time: 01/14/25 11:33 AM Specimen: Lung, Left Lower Lobe; BAL Result Value Ref Range Result No growth Gram Stain Result Rare WBCs Gram Stain Result No organisms seen Culture Fungus W/AALIYAH Or Mayte Ink Status: None (Preliminary result) Collection Time: 01/14/25 11:33 AM Specimen: Lung, Left Lower Lobe; BAL Result Value Ref Range AALIYAH Prep No fungal elements seen Pneumonia PCR Panel Status: Normal Collection Time: 01/14/25 11:36 AM Specimen: Lung, Left Lower Lobe; BAL Result Value Ref Range ACINETOBACTER CALCOACETICUS-BAUMANNII COMPLEX Not detected Not detected ENTEROBACTER CLOACAE COMPLEX Not detected Not detected ESCHERICHIA COLI Not detected Not detected HAEMOPHILUS INFLUENZAE Not detected Not detected KLEBSIELLA AEROGENES Not detected Not detected KLEBSIELLA OXYTOCA Not detected Not detected KLEBSIELLA PNEUMONIAE GROUP Not detected Not detected MORAXELLA CATARRHALIS Not detected Not detected PROTEUS Not detected Not detected PSEUDOMONAS AERUGINOSA Not detected Not detected SERRATIA MARCESCENS Not detected Not detected STAPHYLOCOCCUS AUREUS Not detected Not detected STREPTOCOCCUS AGALACTIAE (GROUP B) Not detected Not detected STREPTOCOCCUS PNEUMONIAE Not detected Not detected STREPTOCOCCUS PYOGENES (GROUP A) Not detected Not detected CTX-M Non Applicable Not detected IMP Non Applicable Not detected KPC Non Applicable Not detected MEC A/C and MREJ Non Applicable Not detected NDM Non Applicable Not detected [id number]-48-[id number] Non Applicable Not detected VIM Non Applicable Not detected CHLAMYDIA PNEUMONIAE Not detected Not detected LEGIONELLA PNEUMOPHILA Not detected Not detected MYCOPLASMA PNEUMONIAE Not detected Not detected ADENOVIRUS Not detected Not detected CORONAVIRUS (NOT COVID19) Not detected Not detected HUMAN METAPNEUMOVIRUS Not detected Not detected HUMAN RHINOVIRUS/ENTEROVIRUS Not detected Not detected INFLUENZA A Not detected Not detected INFLUENZA B Not detected Not detected PARAINFLUENZA VIRUS Not detected Not detected RESPIRATORY SYNCYTIAL VIRUS Not detected Not detected Glucose, Nova Meter Status: Abnormal Collection Time: 01/14/25 12:39 PM Result Value Ref Range POC-GLUCOSE 172 (H) 70 - 110 mg/dL Wire Spooler [id number] Glucose, Nova Meter Status: Abnormal Collection Time: 01/14/25 5:45 PM Result Value Ref Range POC-GLUCOSE 240 (H) 70 - 110 mg/dL Wire Spooler [id number] ECG 12 lead Status: None (In process) Collection Time: 01/14/25 9:04 PM Result Value Ref Range SYSTOLIC BLOOD PRESSURE (MCT) 116 mmHg DIASTOLIC BLOOD PRESSURE (MCT) 58 mmHg VENTRICULAR RATE EKG/MIN 87 BPM ATRIAL RATE (MCT) 87 BPM ND Interval 166 ms QRS-INTERVAL (MSEC) 80 ms QT Interval 364 ms QTC Interval 438 ms P Chaplin 67 degrees R AXIS (MCT) 91 degrees T Wave Chaplin 143 degrees [place] Diagnosis Sinus rhythm with occasional premature ventricular complexes Rightward axis Cannot rule out Anterior infarct (cited on or before 12-JAN-2025) ST & T wave abnormality, consider inferolateral ischemia Abnormal ECG When compared with ECG of 13-JAN-2025 21:37, premature ventricular complexes are now present aberrant conduction is no longer present Questionable change in initial forces of Anterior leads ST elevation now present in Inferior leads Glucose, Nova Meter Status: Abnormal Collection Time: 01/15/25 12:22 AM Result Value Ref Range POC-GLUCOSE 158 (H) 70 - 110 mg/dL Wire Spooler [id number] Magnesium Status: Normal Collection Time: 01/15/25 3:37 AM Result Value Ref Range Magnesium 1.9 1.6 - 2.6 mg/dL CBC - Hemogram (SJ-BKR) Status: Abnormal Collection Time: 01/15/25 3:37 AM Result Value Ref Range WBC 12.7 (H) 4.0 - 10.0 K/??L RBC 3.07 (L) 3.93 - 5.22 M/??L Hemoglobin 9.1 (L) 11.2 - 15.7 GM/DL Hematocrit 28.1 (L) 34.1 - 44.9 % MCV 92 79 - 95 fL MCH 29.6 25.6 - 32.2 pg MCHC 32.4 32.2 - 35.5 GM/DL RDW 16.5 (H) 11.7 - 14.4 % Platelets 247 140 - 375 K/CU MM MPV 11.0 9.4 - 12.3 fL Basic Metabolic Panel Status: Abnormal Collection Time: 01/15/25 3:37 AM Result Value Ref Range Sodium 145 136 - 145 meq/L Potassium 3.6 3.4 - 5.1 meq/L CO2 28 22 - 29 meq/L Chloride 101 98 - 112 meq/L Glucose 95 82 - 115 mg/dL BUN 34.1 (H) 9.8 - 20.1 mg/dL Creatinine 2.23 (H) 0.50 - 1.20 mg/dL BUN/Creatinine 15 8 - 20 Calcium 8.7 8.4 - 10.2 mg/dL Anion Gap 20 (H) 4 - 12 eGFR (mL/min/1.73m2) 23 (L) >=60 mL/min/1.73m2 Osmolality Calc 296.2 mOsm/kg Glucose, Nova Meter Status: None Collection Time: 01/15/25 5:43 AM Result Value Ref Range POC-GLUCOSE 99 70 - 110 mg/dL Wire Spooler [id number] No results found for: PT , INR , PTT CHEM7: Sodium Date Value Ref Range Status 01/15/2025 145 136 - 145 meq/L Final Potassium Date Value Ref Range Status 01/15/2025 3.6 3.4 - 5.1 meq/L Final Chloride Date Value Ref Range Status 01/15/2025 101 98 - 112 meq/L Final CO2 Date Value Ref Range Status 01/15/2025 28 22 - 29 meq/L Final BUN Date Value Ref Range Status 01/15/2025 34.1 (H) 9.8 - 20.1 mg/dL Final Creatinine Date Value Ref Range Status 01/15/2025 2.23 (H) 0.50 - 1.20 mg/dL Final eGFR (mL/min/1.73m2) Date Value Ref Range Status 01/15/2025 23 (L) >=60 mL/min/1.73m2 Final Comment: ESTIMATED GFR IS NOT ACCURATE CREATININE CLEARANCE IN PREDICTING GLOMERULAR FILTRATION RATE. ESTIMATED GFR IS NOT APPLICABLE FOR DIALYSIS PATIENTS. Calcium Date Value Ref Range Status 01/15/2025 8.7 8.4 - 10.2 mg/dL Final Lab Results Component Value Date AST 18 01/14/2025 ALT 10 01/14/2025 No results for input(s): POCGLU in the last 72 hours. No results for input(s): POCPH , POCPCO2 , POCPO2 , POCABG in the last 72 hours. Invalid input(s): POCSAT , POCART , ARTPOC Microbiology: Microbiology Results (last 7 days) Procedure Component Value Units Date/Time Respiratory Culture [[id number]] Collected: 01/14/251132 Order Status: Completed Specimen: BAL from Lung, Left Lower Lobe Updated: 01/15/25632 Result No growth Gram Stain Result Rare WBCs No organisms seen Narrative: The pneumonia PCR panel may detect organisms that do not grow on the culture. Correlate PCR, culture, and patient condition. Rule out and consider respiratory tract colonization,particularly in tracheostomy patients. Pneumonia PCR Panel w/Respiratory Culture [[id number]] Collected: 01/14/251132 Order Status: Resulted Specimen: BAL from Lung, Left Lower Lobe Updated: 01/15/25631 Narrative: The following orders were created for panel order Pneumonia PCR Panel w/Respiratory Culture. Procedure Abnormality Status --------- ------ Pneumonia PCR Panel[[id number]] Normal Edited Result - FINAL Respiratory Culture[[id number]] Preliminary result Please view results for these tests on the individual orders. Pneumonia PCR Panel [[id number]] (Normal) Collected: 01/14/251135 Order Status: Completed Specimen: BAL from Lung, Left Lower Lobe Updated: 01/15/25631 ACINETOBACTER CALCOACETICUS-BAUMANNII COMPLEX Not detected ENTEROBACTER CLOACAE COMPLEX Not detected ESCHERICHIA COLI Not detected HAEMOPHILUS INFLUENZAE Not detected KLEBSIELLA AEROGENES Not detected KLEBSIELLA OXYTOCA Not detected KLEBSIELLA PNEUMONIAE GROUP Not detected MORAXELLA CATARRHALIS Not detected PROTEUS Not detected PSEUDOMONAS AERUGINOSA Not detected SERRATIA MARCESCENS Not detected STAPHYLOCOCCUS AUREUS Not detected STREPTOCOCCUS AGALACTIAE (GROUP B) Not detected STREPTOCOCCUS PNEUMONIAE Not detected STREPTOCOCCUS PYOGENES (GROUP A) Not detected CTX-M Non Applicable IMP Non Applicable KPC Non Applicable MEC A/C and MREJ Non Applicable NDM Non Applicable OXA-48-LIKE Non Applicable VIM Non Applicable CHLAMYDIA PNEUMONIAE Not detected LEGIONELLA PNEUMOPHILA Not detected MYCOPLASMA PNEUMONIAE Not detected ADENOVIRUS Not detected CORONAVIRUS (NOT COVID19) Not detected HUMAN METAPNEUMOVIRUS Not detected HUMAN RHINOVIRUS/ENTEROVIRUS Not detected INFLUENZA A Not detected INFLUENZA B Not detected PARAINFLUENZA VIRUS Not detected RESPIRATORY SYNCYTIAL VIRUS Not detected Narrative: Antimicrobial resistance can occur via multiple mechanisms. A NOT DETECTED result for a genetic marker of antimicrobial resistance does not indicate susceptibility to associated antimicrobial drugs or drug classes. A DETECTED result for a genetic marker of antimicrobial resistance cannot be definitively linked to the microorganism(s)detected. Culture is required to obtain isolates for antimicrobial susceptibility testing and PharmatrophiXArray Pneumonia Panel results should be used in conjunction with culture results for determination of susceptibility or resistance. Culture Fungus W/AALIYAH Or Mayte Ink [[id number]] Collected: 01/14/25 113 Order Status: Completed Specimen: BAL from Lung, Left Lower Lobe Updated: 01/14/25 1227 AALIYAH Prep No fungal elements seen BAL: Bronchial Culture + Gram Stain [[id number]] Collected: 01/14/25 113 Order Status: Canceled Specimen: BAL from Lung, Left Lower Lobe Updated: 01/14/25 113 AFB Culture And Stain [[id number]] Collected: 01/14/25 113 Order Status: Sent Specimen: BAL from Lung, Left Lower Lobe Updated: 01/14/25 113 Strep pneumoniae urine antigen [[id number]] (Normal) Collected: 01/12/25 1033 Order Status: Completed Specimen: Urine, Unspecified Source Updated: 01/12/25 1114 Strep pneumoniae Antigen Presumptive negative for pneumococcal pneumonia - see comment Narrative: A presumptive negative result suggests no current or recent pneumococcal infection. Infection due to S. pneumoniae cannot be ruled out since the antigen present in the specimen may be below the detection limit of the test. Pneumonia PCR Panel w/Respiratory Culture [[id number]] Collected: 01/12/25 0607 Order Status: Completed Specimen: Sputum from Expectorated Updated: 01/12/25 0847 Narrative: The following orders were created for panel order Pneumonia PCR Panel w/Respiratory Culture. Procedure Abnormality Status --------- ------ Pneumonia PCR Panel[[id number]] Respiratory Culture[[id number]] Final result Please view results for these tests on the individual orders. Respiratory Culture [[id number]] Collected: 01/12/25606 Order Status: Completed Specimen: Sputum from Expectorated Updated: 01/12/25 0847 Result Sputum unsatisfactory for culture. Microscopic evaluation indicates significant upper respiratory contamination with epithelial cells.Submit another specimen. Gram Stain Result >25 Epithelial cells/LPF Narrative: Sputum rejection called to Respiratory Care Team Pneumonia PCR Panel [[id number]] Collected: 01/12/25606 Order Status: Canceled Specimen: Sputum from Expectorated Updated: 01/12/25 06 MRSA Screen [[id number]] (Normal) Collected: 01/12/25328 Order Status: Completed Specimen: Nasal from Nares Updated: 01/12/25 0532 MRSA by PCR [facility] MRSA Not Detected by PCR Respiratory Panel [[id number]] (Normal) Collected: 01/12/25328 Order Status: Completed Specimen: Nasopharyngeal Swab Updated: 01/12/25 0449 ADENOVIRUS Not detected CORONAVIRUS 229E Not detected CORONAVIRUS HKU1 Not detected CORONAVIRUS NL63 Not detected CORONAVIRUS OC43 Not detected SARS-COV2/RT-PCR Not Detected HUMAN METAPNEUMOVIRUS Not detected HUMAN RHINOVIRUS/ENTEROVIRUS Not detected INFLUENZA A Not detected INFLUENZA B Not detected PARAINFLUENZA VIRUS 1 Not detected PARAINFLUENZA VIRUS 2 Not detected PARAINFLUENZA VIRUS 3 Not detected PARAINFLUENZA VIRUS 4 Not detected RESPIRATORY SYNCYTIAL VIRUS Not detected BORDETELLA PARAPERTUSSIS Not detected BORDETELLA PERTUSSIS Not detected CHLAMYDIA PNEUMONIAE Not detected MYCOPLASMA PNEUMONIAE Not detected Narrative: Testing was performed with RT-PCR methodology using the [employer]eme Respiratory Panel 2.1 which has [employer] Brenda approval for SARS-CoV-2 testing. Negative results do not preclude infection with the SARS-CoV-2 virus and should not be used as the sole basis of patient treatment or public health decisions.Negative results must be considered in the context of an individual's recent exposures, history, and presence of clinical signs/symptoms. Follow-up testing should be performed according to the current CDC recommendations. Other viruses and bacteria not targeted by this PCR panel cannot be excluded; therefore clinical correlation and follow up of serology, culture results, and other molecular studies is required. The results are not intended to be used as the sole means for clinical diagnosis or patient management decisions. This sample was tested at the [facility] using the [employer] FilmArray Respiratory Panel. It is FDA cleared and has been verified and approved by the [facility] for clinical use on nasopharyngeal swab specimens. The performance of the FilmArray RP has not been established in individuals who received influenza vaccine. Recent administration of a nasal influenza vaccine may cause false positive results for Influenza A and/or Influenza B. Radiology Results (last ) Procedure Component Value Units Date/Time XR chest AP portable [[id number]] Collected: 01/15/25647 Order Status: Completed Updated: 01/15/25654 Narrative: PORTABLE CHEST HISTORY: Ongoing respiratory failure. COMPARISON: One day prior. FINDINGS: The heart is normal in size. The mediastinum is unremarkable. There is persistent but improving left lung base pneumonia. There is no pneumothorax. The NG tube has been removed. The Corpak feeding tube courses below the diaphragm. Impression: Persistent but improving left lung base pneumonia. Images reviewed, interpreted, and dictated by Dr. Juan Bonilla. Transcribed by Va Cevallos PA-C. XR KUB PORTABLE - In process [[id number]] Resulted: 01/15/256 Order Status: Sent Updated: 01/15/25622 This result has not been signed. Information might be incomplete. No valid procedures specified. ASSESSMENT: Pulmonary Acute on Chronic Hypoxemic Respiratory Failure -CT chest from outside hospital with near complete pneumonic infiltration of left lower lobe, mild patchy areas of pneumonia in the right lung. Near complete bronchial obstruction in the left mainstem, upper/lower segmental and subsegmental bronchi due to significant amount of debris with mediastinal and left axillary adenopathy Recurrent pneumonia due to aspiration. COPD with exacerbation Former tobacco abuse Neurology: Dementia? On namenda and Aricept H/O CVA with some word finding issues Cardiology: Hypertension HLD Infectious disease: Leukocytosis Left lung pneumonia Nephrology: Stable bun/Cr CKD 3a Gastroenterology: Dysphagia likely? Recurrent aspiration pneumonia GERD Endocrine: DM Hematology: Anemia; Mild PLAN: Maintain sat >89%, currently on MV. patient was sedated this morning, will stop sedation this morning, patient was tried on pressure support this morning for SBT 3 times and patient become apneic, will try again afternoon, chest x-ray on 01/15 showed persistent improving left lung base pneumonia, patient had a bronchoscopy on 01/14 showed very thick mucous plugs especially on the left lower lobe that was cleaned and removed, some mucous plugs in the right lower lobe that was cleaned and removed, BAL was sent from left lower lobe for cultures CT scan of the chest on 01/13 showed left lower lobe consolidation suggestive of pneumonia, with obstruction of left main bronchus and left lower lobe bronchus, will do bronchoscopy today. chest x-ray on 01/14 shows bilateral interstitial infiltrates, left lower lobe atelectasis with obstruction of left main bronchus and left lower lobe bronchus Started on IV Solu-Medrol, DuoNeb. Budesonide. Patient was started on chest physiotherapy, flutter valve, incentive spirometry. Stopped sedation for SBT. Keep head of bed at 30 degrees and maintain aspiration precautions. Patient overnight was hemodynamically unstable on jorge a-, currently off jorge a-. Hold amlodipine 5 daily, hydrochlorothiazide. On aspirin, atorvastatin, metoprolol. Echocardiogram: Echo was done on 01/13 pending report Hemodynamic: Hemodynamically stable Hemodynamic support: Maintain MAP above 65. Antibiotics: Doxycycline and Zosyn Follow up on cultures. Given IV lasix 40 x1. Bun/Cr reviewed Monitor renal functions and electrolytes closely. Replace electrolytes per protocol. Maintain serum potassium of 4.0, magnesium of 2.0 and phosphorusof 2.5 and normal latest calcium with appropriate replacement. Monitor I&O. Avoid nephrotoxins. Nutrition: Has Corpak, if the patient failed SBT will start tube feeding. Started on bowel Regimen. Hyperglycemia: Target glucose 140-180 mg/dL. SSI, monitor BS. Hold home antidiabetic medications. Monitor H&H. Transfuse as needed. Musculoskeletal: Consulted PT/OT. GI prophylaxis: Pantoprazole DVT prophylaxis: Subcu heparin Code Status: Current Code Status DNR: Interventions Full: Intubation OK Prognosis: Guarded. At risk for respiratory and cardiovascular complications. Disposition: The patient remain critically ill, would recommend to keep the patein in the ICU. CRITICAL CARE TIME: Cumulative critical care time spent on the patient for the day excluding procedures 39 minutes. Patient seen and examined at bedside. I performed history and physical examination. I reviewed laboratory studies, imaging studies, other diagnostic studies, and inpatient medications. Chest imaging studies visualized and reviewed independent of radiologist. Case discussed with the multidisciplinary team including nurse practitioner, nurse, RT, garnetter, pharmacist, and case management during multidisciplinary round. I Dr.Hazim Latia MD, have personally evaluated the patient and performed a [id number] diagnostic evaluation on this patient; I have Obtained history, performed physical examination, reviewed laboratory studies. I have reviewed images independent of radiologist. I have actively directed the medical care, formulated diagnosis, and the plan of care. Patient requires a high complexity of decision making for assessment. Voice photographer apprentice technology (Zokem) is used for dictation of this note and sound-alike words might be erroneously placed despite reviewing the note for accuracy. Errors in dictation may reflect use of voice recognition software and not all errors in photographer apprentice may have been detected prior to signing. It may contain errors and words that were not intended to be used. Please contact the provider for errors or clarifications. * GUILLAUME Thakur - 01/14/2025 4:16 PM Abraham VALLES Initial Assessment 01/14/25 1615 Home Environment Type of Residence Private residence Living Arrangements Children Support Systems Children Accessibilty Issues None Agency Type Home Oxygen Patient returning to prior living situation? Unknown Adherence Patient has moderate rate of compliance with treatment. Motivation Patient has moderate desire for learning/change. Affect Behavior Appropriate Prior/Regular Transportation Family Needs Assistance with Transportation Yes ADL Assessment Current Sensory Deficits None Patient's Vision Adequate to Safely Complete Daily Activities 1 Patient's Judgement Adequate to Safely Complete Daily Activities 1 Dressing Dependent Current Home Care Services None Assistive Devices Oxygen Special/Community Services None Transition Needs Home or Post Acute Services Home/self care;Post acute facilities (Rehab/SNF/etc) Type of Home/Self Nursing Home with family care Type of Post Acute Facility Services Other (Comment) (LTACH) Does the patient have the ability to fill and receive their discharge medications? Yes Discharge Plan Discussed The discharge plan was discussed with patient or patient delivery representative. Discharge Plan Outcome Patient/family delivery representative agrees with the discharge plan Discharge Barriers Medication(s) Type of Assistive Devices Needed for Discharge None Patient Discharge Goal Home;Home Health Care;Other (Comment) (LTACH) Mandated Reporting Not applicable Care Coordination Initial Assessment Home Environment Type of Residence: (P) Private residence Living Arrangements: (P) Children Support System: (P) Children Home Caregiver: Accessibility Issues: (P) None Current Agency Name & Number: Agency Type: (P) Home Oxygen Patient returning to prior living situation? (P) Unknown Compliance: (P) Patient has moderate rate of compliance with treatment. Motivation: (P) Patient has moderate desire for learning/change. Affect/Behavior: (P) Appropriate Prior/Regular Transportation: (P) Family Current Transportation Agency Information: Needs assistance with transportation:(P) Yes ADL Screen Current Sensory Deficits: (P) None Patient's Vision Adequate to Safely complete ADLs:(P) Yes Patient's Judgement Adequate to safely completed ADLs: (P) Yes Dressing: (P) Dependent Current Home Care Services: Current Home Care Services: (P) None Assistive Devices(P) Yes Patient's Judgement Adequate to Safely Complete Daily Activities: (P) Yes Dressing: (P) Dependent Current Lines, Tubes: Special/Community Services: (P) None Transition Needs Expected Discharge Date: Home or Post Acute Services Needed: (P) Home/self care, Post acute facilities (Rehab/SNF/etc) Does the patient have the ability to fill and receive their discharge medications: (P) Yes Discharge plan discussed: (P) The discharge plan was discussed with patient or patient delivery representative. Discharge Barriers: (P) Medication(s) Type of Assistive Devices Needed for Discharge: (P) None Patient Discharge Goal: (P) Home, Home Health Care, Other (Comment) (LTACH) Mandated Reporting: (P) Not applicable PT/OT/GAS GOLF CART REPAIRER Recommendations PT Recommendations: OT Recommendations: GAS GOLF CART REPAIRER Recommendations: Pt has a readmission risk score of 20%. Pt is day 2 of 4.8 GMLOS so expected DC date is 01/17/2025.Pt lives w/ daughter. Pt does require assistance for ADLs. Pt uses O2 at baseline. Pt is currently on vent FiO2 60%. Proactive LTACH refs sent. Patient/family provided with [facility] approved choice list and Patient choice letter along with Quality data link to access Medicare.gov Care Compare website toreview potential post-acute providers. Choice provided to patient/family, and patient preferences received and referral(s) submitted to requested providers. [facility] would require 3 midnight ICU stay for LTACH. Daughter hopes to take pt home if can come off vent. DC plan is home w/ family +/- HH vs LTACH. Barrier: medical readiness, PT/OT evals, 3 midnight ICUstay for LTACH. CM will continue to follow. GUILLAUME Thakur, HOSPITAL STAFF PHARMACIST * Chaplain Timmy - 01/14/2025 4:16 PM EDT Spiritual Care Progress Note 01/14/25 1615 Clinical Encounter Type Visited With Patient;Patient not available (Intubated and Sedated) Routine Visit Introduction Crisis Visit Critical care Referral From Lever Tender (Rounding) Consult Patient care Comments: Routine visit with Ms. Stone; She is intubated and sedated; No family at bedside; Provided orientation and companionship through pastoral presence; Ms. Stone seemed unchanged Chaplain Timmy 01/14/2025 4:16 PM * Ana Grover MD - 01/14/2025 1:38 PM EDT Subjective Patient seen and examined this morning, intubated, underwent bronchoscopy, Review of Systems Unable to obtain secondary to clinical condition Objective Last Recorded Vitals Blood pressure (!) 174/74, pulse 65, temperature 99.7 ??F (37.6 ??C), resp. rate 14, height 1.524 m(5'), weight 48.1 kg (106 lb 0.7 oz), SpO2 99%. Physical Exam Head atraumatic normal cephalic Constitutional intubated , chronically ill looking appearing Respiratory decreased air entry bilateral Cardiovascular S1-S2 no murmur gallops or rubs appreciated Labs: Results for orders placed or performed during the hospital encounter of 01/12/25 (from the past 24 hours) Potassium Status: Normal Collection Time: 01/13/25 1:41 PM Result Value Ref Range Potassium 4.3 3.4 - 5.1 meq/L Magnesium Status: Normal Collection Time: 01/13/25 1:41 PM Result Value Ref Range Magnesium 2.6 1.6 - 2.6 mg/dL Glucose, Nova Meter Status: Abnormal Collection Time: 01/13/25 6:10 PM Result Value Ref Range POC-GLUCOSE 310 (H) 70 - 110 mg/dL Wire Spooler [id number] Blood gas, arterial Status: Abnormal Collection Time: 01/13/25 6:49 PM Result Value Ref Range pH, Arterial 7.50 (H) 7.35 - 7.45 pCO2, Arterial 43 35 - 45 mm Hg pO2, Arterial 215 (H) 80 - 100 mm Hg HCO3, Arterial 34 (H) 20 - 26 mmol/L Base Excess, Arterial 9.7 (H) -2.0 - 2.0 mmol/L O2 Sat, Arterial >99.0 95.0 - 100.0 % CTO2 ARTERIAL 6.6 mmol/L THB ARTERIAL 10.3 (L) 12.0 - 18.0 g/dL PaO2/FIO2 calculated 215.0 [facility] COLLECTION SITE Right Radial Arterial Puncture Yes Blood Gas O2 Delivery Device Ventilator Blood Gas PEEP 5.0 Blood Gas Tidal Volume 315.0 Blood Gas PT Temperature C 37.0 Naif's Test Acceptable Vent Mode Assist Control ABG Number of Draw Attempts 1 Set Rate 16.0 FIO2 100.0 Blood Gas Temperature Corrected Results No No ECG 12 lead Status: None (In process) Collection Time: 01/13/25 9:37 PM Result Value Ref Range SYSTOLIC BLOOD PRESSURE (MCT) 149 mmHg DIASTOLIC BLOOD PRESSURE (MCT) 67 mmHg VENTRICULAR RATE EKG/MIN 79 BPM ATRIAL RATE (MCT) 79 BPM ND Interval 172 ms QRS-INTERVAL (MSEC) 88 ms QT Interval 418 ms QTC Interval 479 ms P Chaplin 63 degrees R AXIS (MCT) 108 degrees T Wave Chaplin 76 degrees [place] Diagnosis Sinus rhythm with premature atrial complexes with aberrant conduction Rightward axis Anteroseptal infarct (cited on or before 12-JAN-2025) Abnormal ECG When compared with ECG of 13-JAN-2025 08:05, aberrant conduction is now present Questionable change in initial forces of Anterior leads ST no longer elevated in Inferior leads Nonspecific T wave abnormality, worse in Inferior leads Glucose, Nova Meter Status: Abnormal Collection Time: 01/14/25 12:34 AM Result Value Ref Range POC-GLUCOSE 149 (H) 70 - 110 mg/dL Wire Spooler [id number] CBC - Hemogram (-BKR) Status: Abnormal Collection Time: 01/14/25 3:47 AM Result Value Ref Range WBC 15.6 (H) 4.0 - 10.0 K/??L RBC 3.35 (L) 3.93 - 5.22 M/??L Hemoglobin 9.9 (L) 11.2 - 15.7 GM/DL Hematocrit 30.2 (L) 34.1 - 44.9 % MCV 90 79 - 95 fL MCH 29.6 25.6 - 32.2 pg MCHC 32.8 32.2 - 35.5 GM/DL RDW 16.1 (H) 11.7 - 14.4 % Platelets 272 140 - 375 K/CU MM MPV 10.6 9.4 - 12.3 fL Magnesium Status: Normal Collection Time: 01/14/25 3:53 AM Result Value Ref Range Magnesium 2.0 1.6 - 2.6 mg/dL CALCIUM Ionized Status: Abnormal Collection Time: 01/14/25 3:53 AM Result Value Ref Range Calcium Ionized 1.03 (L) 1.12 - 1.32 mmol/L Comprehensive metabolic panel Status: Abnormal Collection Time: 01/14/25 3:53 AM Result Value Ref Range Sodium 146 (H) 136 - 145 meq/L Potassium 2.9 (L) 3.4 - 5.1 meq/L Chloride 98 98 - 112 meq/L CO2 33 (H) 22 - 29 meq/L Calcium 8.8 8.4 - 10.2 mg/dL Glucose 130 (H) 82 - 115 mg/dL BUN 25.9 (H) 9.8 - 20.1 mg/dL Creatinine 1.56 (H) 0.50 - 1.20 mg/dL BUN/Creatinine 17 8 - 20 eGFR (mL/min/1.73m2) 35 (L) >=60 mL/min/1.73m2 Albumin 2.3 (L) 3.5 - 5.0 g/dL Alkaline Phosphatase 81 40 - 150 U/L ALT 10 <55 U/L AST 18 5 - 34 U/L Total Bilirubin 0.2 (L) 0.3 - 1.2 mg/dL Protein, Total 5.7 (L) 6.4 - 8.3 g/dL Globulin 3.4 2.5 - 4.1 g/dL Anion Gap 18 (H) 4 - 12 A/G Ratio 0.7 0.7 - 1.9 Osmolality Calc 297.0 mOsm/kg Glucose, Nova Meter Status: Abnormal Collection Time: 01/14/25 5:24 AM Result Value Ref Range POC-GLUCOSE 140 (H) 70 - 110 mg/dL Wire Spooler [id number] Respiratory Culture Status: None (Preliminary result) Collection Time: 01/14/25 11:33 AM Specimen: Lung, Left Lower Lobe; Sputum Result Value Ref Range Gram Stain Result Rare WBCs Gram Stain Result No organisms seen Culture Fungus W/AALIYAH Or Mayte Ink Status: None (Preliminary result) Collection Time: 01/14/25 11:33 AM Specimen: Lung, Left Lower Lobe; BAL Result Value Ref Range AALIYAH Prep No fungal elements seen Pneumonia PCR Panel Status: Normal Collection Time: 01/14/25 11:36 AM Specimen: Lung, Left Lower Lobe; Sputum Result Value Ref Range ACINETOBACTER CALCOACETICUS-BAUMANNII COMPLEX Not detected Not detected ENTEROBACTER CLOACAE COMPLEX Not detected Not detected ESCHERICHIA COLI Not detected Not detected HAEMOPHILUS INFLUENZAE Not detected Not detected KLEBSIELLA AEROGENES Not detected Not detected KLEBSIELLA OXYTOCA Not detected Not detected KLEBSIELLA PNEUMONIAE GROUP Not detected Not detected MORAXELLA CATARRHALIS Not detected Not detected PROTEUS Not detected Not detected PSEUDOMONAS AERUGINOSA Not detected Not detected SERRATIA MARCESCENS Not detected Not detected STAPHYLOCOCCUS AUREUS Not detected Not detected STREPTOCOCCUS AGALACTIAE (GROUP B) Not detected Not detected STREPTOCOCCUS PNEUMONIAE Not detected Not detected STREPTOCOCCUS PYOGENES (GROUP A) Not detected Not detected CTX-M Non Applicable Not detected IMP Non Applicable Not detected KPC Non Applicable Not detected MEC A/C and MREJ Non Applicable Not detected NDM Non Applicable Not detected OXA-48-LIKE Non Applicable Not detected VIM Non Applicable Not detected CHLAMYDIA PNEUMONIAE Not detected Not detected LEGIONELLA PNEUMOPHILA Not detected Not detected MYCOPLASMA PNEUMONIAE Not detected Not detected ADENOVIRUS Not detected Not detected CORONAVIRUS (NOT COVID19) Not detected Not detected HUMAN METAPNEUMOVIRUS Not detected Not detected HUMAN RHINOVIRUS/ENTEROVIRUS Not detected Not detected INFLUENZA A Not detected Not detected INFLUENZA B Not detected Not detected PARAINFLUENZA VIRUS Not detected Not detected RESPIRATORY SYNCYTIAL VIRUS Not detected Not detected Glucose, Nova Meter Status: Abnormal Collection Time: 01/14/25 12:39 PM Result Value Ref Range POC-GLUCOSE 172 (H) 70 - 110 mg/dL Wire Spooler [id number] XR chest AP portable Narrative: PORTABLE CHEST 01/14/2025 5:50 AM HISTORY: Acute respiratory failure. COMPARISON: January 13, 2025. FINDINGS: The heart is mildly enlarged. The mediastinum is unremarkable . Airspace disease within the medial left lung base silhouetting the left hemidiaphragm is unchanged. Right lung is clear. There is no pneumothorax . Endotracheal tube is unchanged. Nasogastric tube courses off the inferior margin of the radiograph. Impression: Medial left basilar airspace disease which may represent pneumonia or aspiration. Images reviewed, interpreted, and dictated by Dr. Clint Gaspar. Transcribed by Danyel Ziegler PA-C Assessment and plan #Acute hypoxic respiratory failure: #Left mainstem bronchus occlusion: #Concern for aspiration pneumonia: #COPD exacerbation - Patient admitted to OSH with evidence of volume overload, increased O2 requirements with acute decompesation yesterday, requiring optiflow. WBC 20K - CT chest from outside hospital with near complete pneumonic infiltration of left lower lobe, mildpatchy areas of pneumonia in the right lung. Near complete bronchial obstruction in the left mainstem, upper/lower segmental and subsegmental bronchi due to significant amount of debris with mediastinal and left axillary adenopathy. - continue with IV Zosyn (Multiple recent admissions) + IV doxycycline - DuoNebs 4 times daily daily plus Pulmicort nebs twice daily - Aggressive pulmonary hygiene ordered -intubated 01/14, underwent bronchoscopy showed Left lower lobe mucous plug - Pulmonology consulted, discussed with broaching machine set up operator, will continue current care in ICU - Strict NPO - MRSA nares, urine antigens, pneumonia PCR and resp cultures ordered - IV solumedrol 40 mg daily for severe CAP -Labs this morning personally interpreted, WBC up to 15.6, hemoglobin 9.9, platelet 272, sodium up to 146, potassium 2.9 replacing, creatinine 1.56 -ABG today personally interpreted, pH 7.50, pCO2 43, pO2 215 -Legionella and Streptococcus antigen negative -Respiratory panel negative #Sepsis: Present at OSH 2/2 to PNA - Evidenced by tachycardia, leukocytosis, pneumonia - Continue IV abx as above -WBC 15.6 -Follow cultures and BAL #Acute on chronic HFpEF - Echo not available but per chart review from OSH, preserved EF. Patient received intermittent IV diuretics at OSH. - TTE ordered - Repeat CXR and labs and will determine need for diuretic therapy - Strict I/O, monitor UOP - Continuous telemetry and spO2 - K> 4, Mg>2, potassium 2.9 replace per protocol, magnesium 2 # Acute kidney injury Creatinine up to 1.52 Will continue to monitor, will consider consult nephrology if worsening #Anxiety disorder: - Resume home ativan 0.5 mg qhs prn #GERD: - Resume home PPI #Normocytic anemia - Labs independently reviewed: Hemoglobin 10.8, hematocrit 32.3 #Dementia: - Continue home namenda and aricept - Delirium precautions: blinds open and lights on during day, sleep aids at night PRN in order to maintain circadian rhythm, frequent re-orientation, encourage family at bedside, limit sedating and anticholinergic medications #Mood disorder: - Continue lexapro 10 mg daily #Hx of CVA: - Continue lipitor 80 mg qhs #Pre-diabetes: - Last A1c 5.6 2 weeks ago - Start SSI #CAD s/p CABG x 3 - Continue aspirin 325 mg daily - Continue toprol 100 mg daily - Continue home imdur 30 mg daily #Chronic T12 burst fracture: - Noted on CT chest with mild central canal stenosis - Recommend outpatient follow-up #Debility -Consult to PT/OT ordered. -Consult to Case Management ordered. -Complicates all aspects of care. CODE STATUS patient is DNR, ok to intubate Total amount of critical care time spent was 35 minutes not counting procedures performed. This time included high complexity decision making to assess and treat vital organ system failure in this patient who has impairment of one or more vital organ systems such that there is a high probability ofimminent or life threatening deterioration of the patient??s condition. Failure to initiate the above interventions on an urgent basis would likely result in sudden, clinically significant or life-threatening deterioration in the patient's condition. The patient required my highest level of preparedness to intervene and I personally spent this critical care time directly and personally managing the patient. This critical care time included obtaining a history; examining the patient; vitals monitoring including pulse oximetry; ordering and review of studies; arranging treatment and plan management; evaluation of patient's response to treatment; re-assessments; and any discussions with familymembers, other providers and ICU staff. * Nettie Bateman OTR/L - 01/14/2025 8:42 AM EDT Images from the original note were not included. [facility] Inpatient Occupational Therapy Attempt to Evaluate Patient Name: Margarita Stone Birthday: 1950 Date of Attempt: 01/14/2025 OT evaluation orders received upon hospital admission, but emergently intubated on 01/13. OT will SCREEN off current orders as pt had change in status and await RE-ORDER as pt appropriate. Secure messaging to attending (Dr. Ana Grover) and social media specialist (Walt Guerrero). OT will await reorder. Electronically signed by Nettie Bateman, OTR/L - 01/14/2025 - 8:42 AM EDT * Bob Breen PT - 01/14/2025 8:33 AM EDT Images from the original note were not included. Inpatient Physical Therapy Attempt to Treat/Discontinuation Patient Name: Margarita Stone Birthday: 1950 Date of Attempt: 01/14/2025 Noted PT evaluation performed on 01/12 to which pt participating with rolling ea direction maxA (nonamb at baseline). However, pt intubated/sedated on 01/13. Will require Reorders for PT mobility andepic messaging to attending (Dr. Ana Grover) and social media specialist (Walt Guerrero). Will sign off PTorders at this time. Electronically signed by Bob Breen PT - 01/14/2025 - 8:33 AM EDT * Donnie Jeffery MD - 01/14/2025 8:05 AM EDT Consults PULMONARY AND CRITICAL CARE Consult Note Date of Service: 01/14/2025 Reason for Consult: For critical care management. Referring: MD Thony HPI: This is a 74 y.o. year old female with past medical history of Chronic Respiratory Failure on 2L NCat baseline, COPD, CVA with slight residual on word finding, question of Dementia?, HTN/HLD and DM.She presented to [facility] due to increasing shortness of breath and cough for 1-2 days.Family reports she has had some recurrent pneumonia and issues with aspiration recently. CT chest from outside hospital with near complete pneumonic infiltration of left lower lobe, mild patchy areas of pneumonia in the right lung. Near complete bronchial obstruction in the left mainstem, upper/lower se gmental and subsegmental bronchi due to significant amount of debris with mediastinal and left axillary adenopathy. WBC 17.9, Cr 1.03. Pulmonary has been consulted for ICU management and need for bronchoscopy. 01/13 I have seen and examined the patient this morning, daughter at bedside I have discussed with her about the patient condition answered all her questions and concerns, discussed with her that thepatient has left lower lobe atelectasis could be from mucous plug or aspiration, will check CT chest for evaluation. She said if the patient absolutely need bronchoscopy she is okay with intubating the patient for procedure otherwise the patient is DNR/DNI. Depending on the result of the CT scan wewill consider to do bronchoscopy. Patient was started on chest physiotherapy, flutter valve, incentive spirometry. Echo on 01/13 was done pending report. Patient on Optiflow 55 L and 50%, will titrate down as tolerated, WBC 17.1, sodium 148, fluid balance -750 mL, on doxycycline and Zosyn. 01/14 I have seen and examined the patient this morning, patient remains critically ill, intubated on mechanical ventilation FiO2 60%, was titrated this morning to 50%, will continue to titrate down as tolerated, CT scan of the chest on 01/13 showed left lower lobe consolidation suggestive of pneumonia, with obstruction of left main bronchus and left lower lobe bronchus, will do bronchoscopy today, chest x-ray on 01/14 shows bilateral interstitial infiltrates, left lower lobe atelectasis with obstruction of left main bronchus and left lower lobe bronchus, currently patient off jorge a-, blood pressure is borderline low, ABG was reviewed show metabolic alkalosis, sodium 146, creatinine 1.56, potassium 2.9, WBC 15.6, fluid balance -350 mL, on doxycycline and Zosyn. PAST MEDICAL HISTORY: No past medical history on file. PAST SURGICAL HISTORY: No past surgical history on file. No past surgical history on file. Allergies: Not on File SOCIAL HISTORY: FAMILY HISTORY: family history is not on file. Review of Systems Unable to perform ROS: Intubated Vital Signs Temp: [88.7 ??F (31.5 ??C)-98.8 ??F (37.1 ??C)] 98.8 ??F (37.1 ??C) Pulse: [57-105] 78 Resp: [0-72] 14 BP: (85-214)/(49-93) 147/66 FiO2 (%): [50 %-100 %] 60 % Current: Temp: 98.8 ??F (37.1 ??C) Pulse: 78 Resp: 14 BP: (!) 147/66 SpO2: 99 % 24 Hour: BP Min: 85/51 Max: 214/93 Temp Min: 88.7 ??F (31.5 ??C) Max: 98.8 ??F (37.1 ??C) Pulse Min: 57 Max: 105 Resp Min: 0 Max: 72 SpO2 Min: 84 % Max: 100 % Intake/Output: I/O last 3 completed shifts: In: 414.5 [I.V.:14.5; IV Piggyback:400] Out: 1350 [Urine:1350] Physical Exam Constitutional: Appearance: She is ill-appearing. HENT: Head: Normocephalic. Mouth/Throat: Mouth: Mucous membranes are dry. Eyes: Pupils: Pupils are equal, round, and reactive to light. Cardiovascular: Rate and Rhythm: Normal rate and regular rhythm. Pulmonary: Breath sounds: Rhonchi present. Comments: Diminshed left lung breath sounds, crackles noted Abdominal: General: Bowel sounds are normal. Musculoskeletal: General: No deformity. Skin: Capillary Refill: Capillary refill takes less than 2 seconds. Coloration: Skin is pale. Neurological: Comments: Intubated and sedated. Intake/Output: I/O last 3 completed shifts: In: 414.5 [I.V.:14.5; IV Piggyback:400] Out: 1350 [Urine:1350] LABS Results for orders placed or performed during the hospital encounter of 01/12/25 (from the past 24 hours) Glucose, Nova Meter Status: Abnormal Collection Time: 01/13/25 11:57 AM Result Value Ref Range POC-GLUCOSE 134 (H) 70 - 110 mg/dL Wire Spooler [id number] Potassium Status: Normal Collection Time: 01/13/25 1:41 PM Result Value Ref Range Potassium 4.3 3.4 - 5.1 meq/L Magnesium Status: Normal Collection Time: 01/13/25 1:41 PM Result Value Ref Range Magnesium 2.6 1.6 - 2.6 mg/dL Glucose, Nova Meter Status: Abnormal Collection Time: 01/13/25 6:10 PM Result Value Ref Range POC-GLUCOSE 310 (H) 70 - 110 mg/dL Wire Spooler [id number] Blood gas, arterial Status: Abnormal Collection Time: 01/13/25 6:49 PM Result Value Ref Range pH, Arterial 7.50 (H) 7.35 - 7.45 pCO2, Arterial 43 35 - 45 mm Hg pO2, Arterial 215 (H) 80 - 100 mm Hg HCO3, Arterial 34 (H) 20 - 26 mmol/L Base Excess, Arterial 9.7 (H) -2.0 - 2.0 mmol/L O2 Sat, Arterial >99.0 95.0 - 100.0 % CTO2 ARTERIAL 6.6 mmol/L THB ARTERIAL 10.3 (L) 12.0 - 18.0 g/dL PaO2/FIO2 calculated 215.0 [facility] COLLECTION SITE Right Radial Arterial Puncture Yes Blood Gas O2 Delivery Device Ventilator Blood Gas PEEP 5.0 Blood Gas Tidal Volume 315.0 Blood Gas PT Temperature C 37.0 Naif's Test Acceptable Vent Mode Assist Control ABG Number of Draw Attempts 1 Set Rate 16.0 FIO2 100.0 Blood Gas Temperature Corrected Results No No ECG 12 lead Status: None (In process) Collection Time: 01/13/25 9:37 PM Result Value Ref Range SYSTOLIC BLOOD PRESSURE (MCT) 149 mmHg DIASTOLIC BLOOD PRESSURE (MCT) 67 mmHg VENTRICULAR RATE EKG/MIN 79 BPM ATRIAL RATE (MCT) 79 BPM ND Interval 172 ms QRS-INTERVAL (MSEC) 88 ms QT Interval 418 ms QTC Interval 479 ms P Chaplin 63 degrees R AXIS (MCT) 108 degrees T Wave Chaplin 76 degrees [place] Diagnosis Sinus rhythm with premature atrial complexes with aberrant conduction Rightward axis Anteroseptal infarct (cited on or before 12-JAN-2025) Abnormal ECG When compared with ECG of 13-JAN-2025 08:05, aberrant conduction is now present Questionable change in initial forces of Anterior leads ST no longer elevated in Inferior leads Nonspecific T wave abnormality, worse in Inferior leads Glucose, Nova Meter Status: Abnormal Collection Time: 01/14/25 12:34 AM Result Value Ref Range POC-GLUCOSE 149 (H) 70 - 110 mg/dL Wire Spooler [id number] CBC - Hemogram (-BKR) Status: Abnormal Collection Time: 01/14/25 3:47 AM Result Value Ref Range WBC 15.6 (H) 4.0 - 10.0 K/??L RBC 3.35 (L) 3.93 - 5.22 M/??L Hemoglobin 9.9 (L) 11.2 - 15.7 GM/DL Hematocrit 30.2 (L) 34.1 - 44.9 % MCV 90 79 - 95 fL MCH 29.6 25.6 - 32.2 pg MCHC 32.8 32.2 - 35.5 GM/DL RDW 16.1 (H) 11.7 - 14.4 % Platelets 272 140 - 375 K/CU MM MPV 10.6 9.4 - 12.3 fL Magnesium Status: Normal Collection Time: 01/14/25 3:53 AM Result Value Ref Range Magnesium 2.0 1.6 - 2.6 mg/dL CALCIUM Ionized Status: Abnormal Collection Time: 01/14/25 3:53 AM Result Value Ref Range Calcium Ionized 1.03 (L) 1.12 - 1.32 mmol/L Comprehensive metabolic panel Status: Abnormal Collection Time: 01/14/25 3:53 AM Result Value Ref Range Sodium 146 (H) 136 - 145 meq/L Potassium 2.9 (L) 3.4 - 5.1 meq/L Chloride 98 98 - 112 meq/L CO2 33 (H) 22 - 29 meq/L Calcium 8.8 8.4 - 10.2 mg/dL Glucose 130 (H) 82 - 115 mg/dL BUN 25.9 (H) 9.8 - 20.1 mg/dL Creatinine 1.56 (H) 0.50 - 1.20 mg/dL BUN/Creatinine 17 8 - 20 eGFR (mL/min/1.73m2) 35 (L) >=60 mL/min/1.73m2 Albumin 2.3 (L) 3.5 - 5.0 g/dL Alkaline Phosphatase 81 40 - 150 U/L ALT 10 <55 U/L AST 18 5 - 34 U/L Total Bilirubin 0.2 (L) 0.3 - 1.2 mg/dL Protein, Total 5.7 (L) 6.4 - 8.3 g/dL Globulin 3.4 2.5 - 4.1 g/dL Anion Gap 18 (H) 4 - 12 A/G Ratio 0.7 0.7 - 1.9 Osmolality Calc 297.0 mOsm/kg Glucose, Nova Meter Status: Abnormal Collection Time: 01/14/25 5:24 AM Result Value Ref Range POC-GLUCOSE 140 (H) 70 - 110 mg/dL Wire Spooler [id number] No results found for: PT , INR , PTT CHEM7: Sodium Date Value Ref Range Status 01/14/2025 146 (H) 136 - 145 meq/L Final Potassium Date Value Ref Range Status 01/14/2025 2.9 (L) 3.4 - 5.1 meq/L Final Chloride Date Value Ref Range Status 01/14/2025 98 98 - 112 meq/L Final CO2 Date Value Ref Range Status 01/14/2025 33 (H) 22 - 29 meq/L Final BUN Date Value Ref Range Status 01/14/2025 25.9 (H) 9.8 - 20.1 mg/dL Final Creatinine Date Value Ref Range Status 01/14/2025 1.56 (H) 0.50 - 1.20 mg/dL Final eGFR (mL/min/1.73m2) Date Value Ref Range Status 01/14/2025 35 (L) >=60 mL/min/1.73m2 Final Comment: ESTIMATED GFR IS NOT ACCURATE CREATININE CLEARANCE IN PREDICTING GLOMERULAR FILTRATION RATE. ESTIMATED GFR IS NOT APPLICABLE FOR DIALYSIS PATIENTS. Calcium Date Value Ref Range Status 01/14/2025 8.8 8.4 - 10.2 mg/dL Final Lab Results Component Value Date AST 18 01/14/2025 ALT 10 01/14/2025 No results for input(s): POCGLU in the last 72 hours. No results for input(s): POCPH , POCPCO2 , POCPO2 , POCABG in the last 72 hours. Invalid input(s): POCSAT , POCART , ARTPOC Microbiology: Microbiology Results (last 7 days) Procedure Component Value Units Date/Time Strep pneumoniae urine antigen [[id number]] (Normal) Collected: 01/12/25 1033 Order Status: Completed Specimen: Urine, Unspecified Source Updated: 01/12/25 1114 Strep pneumoniae Antigen Presumptive negative for pneumococcal pneumonia - see comment Narrative: A presumptive negative result suggests no current or recent pneumococcal infection. Infection due to S. pneumoniae cannot be ruled out since the antigen present in the specimen may be below the detection limit of the test. Pneumonia PCR Panel w/Respiratory Culture [[id number]] Order Status: Sent Specimen: Sputum from Lung, Left Lower Lobe Narrative: The following orders were created for panel order Pneumonia PCR Panel w/Respiratory Culture. Procedure Abnormality Status --------- ------ Pneumonia PCR Panel[[id number]] Respiratory Culture[[id number]] Please view results for these tests on the individual orders. Pneumonia PCR Panel [[id number]] Order Status: Sent Specimen: Sputum from Lung, Left Lower Lobe Respiratory Culture [[id number]] Order Status: Sent Specimen: Sputum from Lung, Left Lower Lobe Pneumonia PCR Panel w/Respiratory Culture [[id number]] Collected: 01/12/25606 Order Status: Completed Specimen: Sputum from Expectorated Updated: 01/12/25 0847 Narrative: The following orders were created for panel order Pneumonia PCR Panel w/Respiratory Culture. Procedure Abnormality Status --------- ------ Pneumonia PCR Panel[[id number]] Respiratory Culture[[id number]] Final result Please view results for these tests on the individual orders. Respiratory Culture [[id number]] Collected: 01/12/25606 Order Status: Completed Specimen: Sputum from Expectorated Updated: 01/12/25 0847 Result Sputum unsatisfactory for culture. Microscopic evaluation indicates significant upper respiratory contamination with epithelial cells.Submit another specimen. Gram Stain Result >25 Epithelial cells/LPF Narrative: Sputum rejection called to Respiratory Care Team Pneumonia PCR Panel [[id number]] Collected: 01/12/25606 Order Status: Canceled Specimen: Sputum from Expectorated Updated: 01/12/25 0611 MRSA Screen [[id number]] (Normal) Collected: 01/12/25328 Order Status: Completed Specimen: Nasal from Nares Updated: 01/12/25 0532 MRSA by PCR [facility] MRSA Not Detected by PCR Respiratory Panel [[id number]] (Normal) Collected: 01/12/25328 Order Status: Completed Specimen: Nasopharyngeal Swab Updated: 01/12/25448 ADENOVIRUS Not detected CORONAVIRUS 229E Not detected CORONAVIRUS HKU1 Not detected CORONAVIRUS NL63 Not detected CORONAVIRUS OC43 Not detected SARS-COV2/RT-PCR Not Detected HUMAN METAPNEUMOVIRUS Not detected HUMAN RHINOVIRUS/ENTEROVIRUS Not detected INFLUENZA A Not detected INFLUENZA B Not detected PARAINFLUENZA VIRUS 1 Not detected PARAINFLUENZA VIRUS 2 Not detected PARAINFLUENZA VIRUS 3 Not detected PARAINFLUENZA VIRUS 4 Not detected RESPIRATORY SYNCYTIAL VIRUS Not detected BORDETELLA PARAPERTUSSIS Not detected BORDETELLA PERTUSSIS Not detected CHLAMYDIA PNEUMONIAE Not detected MYCOPLASMA PNEUMONIAE Not detected Narrative: Testing was performed with RT-PCR methodology using the [employer] Respiratory Panel 2.1 which has [employer]da approval for SARS-CoV-2 testing. Negative results do not preclude infection with the SARS-CoV-2 virus and should not be used as the sole basis of patient treatment or public health decisions.Negative results must be considered in the context of an individual's recent exposures, history, and presence of clinical signs/symptoms. Follow-up testing should be performed according to the current CDC recommendations. Other viruses and bacteria not targeted by this PCR panel cannot be excluded; therefore clinical correlation and follow up of serology, culture results, and other molecular studies is required. The results are not intended to be used as the sole means for clinical diagnosis or patient management decisions. This sample was tested at the [facility] using the [employer]COM[employer] Respiratory Panel. It is FDA cleared and has been verified and approved by the [facility] for clinical use on nasopharyngeal swab specimens. The performance of the FilmArray RP has not been established in individuals who received influenza vaccine. Recent administration of a nasal influenza vaccine may cause false positive results for Influenza A and/or Influenza B. Radiology Results (last day) Procedure Component Value Units Date/Time XR chest AP portable [[id number]] Collected: 01/14/25 0750 Order Status: Completed Updated: 01/14/25 08 Narrative: PORTABLE CHEST 01/14/2025 5:50 AM HISTORY: Acute respiratory failure. COMPARISON: January 13, 2025. FINDINGS: The heart is mildly enlarged. The mediastinum is unremarkable . Airspace disease within the medial left lung base silhouetting the left hemidiaphragm is unchanged. Right lung is clear. There is no pneumothorax . Endotracheal tube is unchanged. Nasogastric tube courses off the inferior margin of the radiograph. Impression: Medial left basilar airspace disease which may represent pneumonia or aspiration. Images reviewed, interpreted, and dictated by Dr. Clint Gaspar. Transcribed by Danyel Ziegler PA-C XR chest AP portable [[id number]] Collected: 01/13/252050 Order Status: Completed Updated: 01/13/252107 Narrative: PORTABLE CHEST HISTORY: Respiratory failure. COMPARISON: 1 hour prior. FINDINGS: A single portable radiograph of the chest was performed. The patient is now intubated. The endotracheal tube is in the midthoracic trachea. There is dense consolidation of the left lung base which has increased. There is increasing small left pleural effusion. There is underlying emphysema and chronic change. Impression: 1. Endotracheal tube in good position. 2. Worsening left lower lobe collapse/consolidation and left effusion. Images reviewed, interpreted, dictated and electronically signed by Juan Bonilla MD Voice photographer apprentice technology (Power Scribe) is used for the dictation of this note and sound-alike words might be erroneously placed despite reviewing this note for accuracy. Errors in dictation may reflect use of voice recognition software and not all errors in photographer apprentice may have been detected prior to signing. XR KUB PORTABLE [[id number]] Collected: 01/13/252048 Order Status: Completed Updated: 01/13/252053 Narrative: SINGLE VIEW ABDOMEN HISTORY: NG tube placement COMPARISON: None ABDOMEN: A single view of the abdomen demonstrates a nonspecific bowel gas pattern. There is an oral gastric tube with the tip in the proximal body the stomach. There is a nonspecific gas pattern. Significant aortoiliac vascular calcifications are noted. Impression: 1. OG tube in the mid body of the stomach. 2. Nonspecific gas pattern with no obstruction. Images reviewed, interpreted, dictated and electronically signed by Juan Bonilla MD Voice photographer apprentice technology (Power Scribe) is used for the dictation of this note and sound-alike words might be erroneously placed despite reviewing this note for accuracy. Errors in dictation may reflect use of voice recognition software and not all errors in photographer apprentice may have been detected prior to signing. XR chest AP portable [[id number]] Collected: 01/13/252049 Order Status: Completed Updated: 01/13/252053 Narrative: PORTABLE CHEST HISTORY: Ongoing shortness of breath. COMPARISON: 13 hours prior. FINDINGS: A single portable radiograph of the chest was performed. Patient is status post sternotomy for CABG. There is calcified plaque of the aorta. There is left base collapse/consolidation with small left effusion. There is underlying emphysema and chronic change. Impression: Left base collapse/consolidation with small left effusion. Images reviewed, interpreted, dictated and electronically signed by Juan Bonilla MD Voice photographer apprentice technology (Power Scribe) is used for the dictation of this note and sound-alike words might be erroneously placed despite reviewing this note for accuracy. Errors in dictation may reflect use of voice recognition software and not all errors in photographer apprentice may have been detected prior to signing. CT CHEST WITHOUT IV CONTRAST [[id number]] Collected: 01/13/251329 Order Status: Completed Updated: 01/13/251443 Narrative: CT SCAN OF THE CHEST WITHOUT CONTRAST. HISTORY: Pneumonia. COMPARISON: None . PROCEDURE: Axial images were obtained from the lung apex to the mid abdomen by computed tomography. This study was performed with techniques to keep radiation doses as low as reasonably achievable, (ALARA). Automatic exposure control and/or changing of the mA/ kV according to patient size were utilized for radiation dose reduction. FINDINGS: CHEST: There is no axillary, mediastinal or right hilar lymphadenopathy. Left hilar lymphadenopathy is not excluded. There is no pleural or pericardial effusion. There is left lower lobe airspace disease. There is soft tissue density within the left mainstem bronchus and in the left lower lobe bronchus, favor inflammatory/infectious. There are changes from emphysema. The right lung is clear. Limited imaging of the upper abdomen reveals gallstones in the gallbladder. The osseous structures reveal an age-indeterminate T12 fracture. Impression: Left lower lobe airspace disease most consistent with pneumonia with obstruction of the left mainstem bronchus and left lower lobe bronchus by what is likely mucus and infectious material. Consider bronchoscopy. Images reviewed, interpreted, and dictated by Dr. Fab Smith. Transcribed by Chanel Parmar PA-C. XR chest AP portable [[id number]] Collected: 01/13/25 0855 Order Status: Completed Updated: 01/13/25 1126 Narrative: PORTABLE CHEST HISTORY: Ongoing pneumonia. COMPARISON: One day prior. FINDINGS: The heart is normal in size. The mediastinum is unremarkable. There has been no change in the left lung base collapse/consolidation which likely represents pneumonia. There is a small left pleural effusion. The lungs are underinflated with chronic changes throughout. There is no pneumothorax. Status post median sternotomy. Impression: No significant interval change in the left lung base collapse/consolidation which likely represents pneumonia. Images reviewed, interpreted, and dictated by Dr. Juan Bonilla. Transcribed by Va Cevallos PA-C. No valid procedures specified. ASSESSMENT: Pulmonary Acute on Chronic Hypoxemic Respiratory Failure -CT chest from outside hospital with near complete pneumonic infiltration of left lower lobe, mild patchy areas of pneumonia in the right lung. Near complete bronchial obstruction in the left mainstem, upper/lower segmental and subsegmental bronchi due to significant amount of debris with mediastinal and left axillary adenopathy Recurrent pneumonia due to aspiration. COPD with exacerbation Former tobacco abuse Neurology: Dementia? On namenda and Aricept H/O CVA with some word finding issues Cardiology: Hypertension HLD Infectious disease: Leukocytosis Left lung pneumonia Nephrology: Stable bun/Cr CKD 3a Gastroenterology: Dysphagia likely? Recurrent aspiration pneumonia GERD Endocrine: DM Hematology: Anemia; Mild PLAN: Maintain sat >89%, currently on mechanical ventilation FiO2 was titrated down from 60% and now it is 50% will continue to titrate down as tolerated. CT scan of the chest on 01/13 showed left lower lobe consolidation suggestive of pneumonia, with obstruction of left main bronchus and left lower lobe bronchus, will do bronchoscopy today. chest x-ray on 01/14 shows bilateral interstitial infiltrates, left lower lobe atelectasis with obstruction of left main bronchus and left lower lobe bronchus Started on IV Solu-Medrol, DuoNeb. Budesonide. Patient was started on chest physiotherapy, flutter valve, incentive spirometry. Sedated Keep head of bed at 30 degrees and maintain aspiration precautions. Patient overnight was hemodynamically unstable on jorge a-, currently off jorge a-. Hold amlodipine 5 daily, hydrochlorothiazide. On aspirin, atorvastatin, metoprolol. Echocardiogram: Echo was done on 01/13 pending report Hemodynamic: Hemodynamically stable Hemodynamic support: Maintain MAP above 65. Antibiotics: Doxycycline and Zosyn Follow up on cultures. Hold IV Lasix 20 twice daily. Bun/Cr reviewed Monitor renal functions and electrolytes closely. Replace electrolytes per protocol. Maintain serum potassium of 4.0, magnesium of 2.0 and phosphorusof 2.5 and normal latest calcium with appropriate replacement. Monitor I&O. Avoid nephrotoxins. Nutrition: N.p.o. Started on bowel Regimen. Hyperglycemia: Target glucose 140-180 mg/dL. SSI, monitor BS. Hold home antidiabetic medications. Monitor H&H. Transfuse as needed. Musculoskeletal: Consulted PT/OT. GI prophylaxis: Pantoprazole DVT prophylaxis: Subcu heparin Code Status: Current Code Status DNR: Interventions Full: Intubation OK Prognosis: Guarded. At risk for respiratory and cardiovascular complications. Disposition: The patient remain critically ill, would recommend to keep the patein in the ICU. CRITICAL CARE TIME: Cumulative critical care time spent on the patient for the day excluding procedures 33 minutes. Patient seen and examined at bedside. I performed history and physical examination. I reviewed laboratory studies, imaging studies, other diagnostic studies, and inpatient medications. Chest imaging studies visualized and reviewed independent of radiologist. Case discussed with the multidisciplinary team including nurse practitioner, nurse, RT, garnetter, pharmacist, and case management during multidisciplinary round. I Dr.Hazim Latia MD, have personally evaluated the patient and performed a [id number] diagnostic evaluation on this patient; I have Obtained history, performed physical examination, reviewed laboratory studies. I have reviewed images independent of radiologist. I have actively directed the medical care, formulated diagnosis, and the plan of care. Patient requires a high complexity of decision making for assessment. Voice photographer apprentice technology (Zokem) is used for dictation of this note and sound-alike words might be erroneously placed despite reviewing the note for accuracy. Errors in dictation may reflect use of voice recognition software and not all errors in photographer apprentice may have been detected prior to signing. It may contain errors and words that were not intended to be used. Please contact the provider for errors or clarifications. * Digna Villafana [facility] REPAIRER - 01/14/2025 7:16 AM EDT Images from the original note were not included. [facility] Speech Language Pathology Intubation Note Patient Name:Margarita Stone Birthday: 1950 Age: 74 y.o. Today: 01/14/2025 Patient currently intubated and sedated. G[employer] GOLF CART REPAIRER will sign off at this time. Please re-consult if/when patient becomes appropriate. Electronically signed by Digna Villafana CCC-G[employer] GOL[employer] CART REPAIRER - 01/14/2025 - 7:16 AM EDT * Venus Leonard RN - 01/13/2025 7:09 PM EDT Pt desaturating to low 80, opti flow increased until reached 100%, 60L, pulmonary and respiratory notified, orders to be placed on bipap, chest xray, npo, speak with family as they wanted to change code status to vent ok for bronch, are to bronch on 01/14 if family would like to intubate tonight. Family notified of decompensation and bronch to be done 01/14 the POA wanted to change code status and intubate tonight if needed. POA paperwork on the chart, sound notified,and orders changed. Pulmonary notified family wants intubation, orders received, Respiratory intubated @ 1755 pt with RN at bedside, pt stable, family updated on pt condition, and are thankful. * Ana Grover MD - 01/13/2025 2:41 PM EDT Subjective Patient seen and examined this morning, with RN in the room. Patient on Optiflow. Her labs and chest x-ray noted. Discussed with broaching machine set up operator. Review of Systems Shortness of breath No fever no chills No nausea no vomiting Objective Last Recorded Vitals Blood pressure 137/63, pulse 66, temperature 97.6 ??F (36.4 ??C), temperature source Oral, resp. rate 24, height 1.524 m (5'), weight 48.1 kg (106 lb 0.7 oz), SpO2 98%. Physical Exam Head atraumatic normal cephalic Constitutional alert, chronically ill looking appearing Respiratory decreased air entry bilateral Cardiovascular S1-S2 no murmur gallops or rubs appreciated Labs: Results for orders placed or performed during the hospital encounter of 01/12/25 (from the past 24 hours) Glucose, Nova Meter Status: Abnormal Collection Time: 01/12/25 5:12 PM Result Value Ref Range POC-GLUCOSE 188 (H) 70 - 110 mg/dL Wire Spooler [id number] Basic Metabolic Panel Status: Abnormal Collection Time: 01/12/25 7:49 PM Result Value Ref Range Sodium 148 (H) 136 - 145 meq/L Potassium 4.1 3.4 - 5.1 meq/L CO2 29 22 - 29 meq/L Chloride 103 98 - 112 meq/L Glucose 168 (H) 82 - 115 mg/dL BUN 22.1 (H) 9.8 - 20.1 mg/dL Creatinine 1.06 0.50 - 1.20 mg/dL BUN/Creatinine 21 (H) 8 - 20 Calcium 9.2 8.4 - 10.2 mg/dL Anion Gap 20 (H) 4 - 12 eGFR (mL/min/1.73m2) 55 (L) >=60 mL/min/1.73m2 Osmolality Calc 301.5 mOsm/kg Glucose, Nova Meter Status: Abnormal Collection Time: 01/13/25 12:04 AM Result Value Ref Range POC-GLUCOSE 130 (H) 70 - 110 mg/dL Wire Spooler [id number] CBC - Hemogram (SJ-BKR) Status: Abnormal Collection Time: 01/13/25 4:09 AM Result Value Ref Range WBC 17.1 (H) 4.0 - 10.0 K/??L RBC 3.58 (L) 3.93 - 5.22 M/??L Hemoglobin 10.8 (L) 11.2 - 15.7 GM/DL Hematocrit 32.3 (L) 34.1 - 44.9 % MCV 90 79 - 95 fL MCH 30.2 25.6 - 32.2 pg MCHC 33.4 32.2 - 35.5 GM/DL RDW 16.1 (H) 11.7 - 14.4 % Platelets 268 140 - 375 K/CU MM MPV 11.4 9.4 - 12.3 fL CALCIUM Ionized Status: Normal Collection Time: 01/13/25 4:09 AM Result Value Ref Range Calcium Ionized 1.14 1.12 - 1.32 mmol/L Glucose, Nova Meter Status: Abnormal Collection Time: 01/13/25 6:12 AM Result Value Ref Range POC-GLUCOSE 113 (H) 70 - 110 mg/dL Wire Spooler [id number] Magnesium Status: Normal Collection Time: 01/13/25 6:15 AM Result Value Ref Range Magnesium 1.8 1.6 - 2.6 mg/dL Comprehensive metabolic panel Status: Abnormal Collection Time: 01/13/25 6:15 AM Result Value Ref Range Sodium 148 (H) 136 - 145 meq/L Potassium 3.3 (L) 3.4 - 5.1 meq/L Chloride 103 98 - 112 meq/L CO2 34 (H) 22 - 29 meq/L Calcium 9.2 8.4 - 10.2 mg/dL Glucose 116 (H) 82 - 115 mg/dL BUN 21.8 (H) 9.8 - 20.1 mg/dL Creatinine 1.19 0.50 - 1.20 mg/dL BUN/Creatinine 18 8 - 20 eGFR (mL/min/1.73m2) 48 (L) >=60 mL/min/1.73m2 Albumin 2.5 (L) 3.5 - 5.0 g/dL Alkaline Phosphatase 84 40 - 150 U/L ALT 13 <55 U/L AST 19 5 - 34 U/L Total Bilirubin 0.3 0.3 - 1.2 mg/dL Protein, Total 5.9 (L) 6.4 - 8.3 g/dL Globulin 3.4 2.5 - 4.1 g/dL Anion Gap 14 (H) 4 - 12 A/G Ratio 0.7 0.7 - 1.9 Osmolality Calc 298.5 mOsm/kg Phosphorus Status: Abnormal Collection Time: 01/13/25 6:15 AM Result Value Ref Range Phosphorus 5.3 (H) 2.5 - 4.5 mg/dL ECG 12 lead Status: None (In process) Collection Time: 01/13/25 8:05 AM Result Value Ref Range SYSTOLIC BLOOD PRESSURE (MCT) 159 mmHg DIASTOLIC BLOOD PRESSURE (MCT) 70 mmHg VENTRICULAR RATE EKG/MIN 65 BPM ATRIAL RATE (MCT) 65 BPM ND Interval 180 ms QRS-INTERVAL (MSEC) 82 ms QT Interval 420 ms QTC Interval 436 ms P Chaplin 47 degrees R AXIS (MCT) 100 degrees T Wave Chaplin 112 degrees [place] Diagnosis Normal sinus rhythm Rightward axis Cannot rule out Anterior infarct (cited on or before 12-JAN-2025) Abnormal ECG When compared with ECG of 12-JAN-2025 08:46, Serial changes of Anterior infarct present Glucose, Nova Meter Status: Abnormal Collection Time: 01/13/25 11:57 AM Result Value Ref Range POC-GLUCOSE 134 (H) 70 - 110 mg/dL Wire Spooler [id number] Potassium Status: Normal Collection Time: 01/13/25 1:41 PM Result Value Ref Range Potassium 4.3 3.4 - 5.1 meq/L Magnesium Status: Normal Collection Time: 01/13/25 1:41 PM Result Value Ref Range Magnesium 2.6 1.6 - 2.6 mg/dL CT CHEST WITHOUT IV CONTRAST Narrative: CT SCAN OF THE CHEST WITHOUT CONTRAST. HISTORY: Pneumonia. COMPARISON: None . PROCEDURE: Axial images were obtained from the lung apex to the mid abdomen by computed tomography. This study was performed with techniques to keep radiation doses as low as reasonably achievable, (ALARA). Automatic exposure control and/or changing of the mA/ kV according to patient size were utilized for radiation dose reduction. FINDINGS: CHEST: There is no axillary, mediastinal or right hilar lymphadenopathy. Left hilar lymphadenopathy is not excluded. There is no pleural or pericardial effusion. There is left lower lobe airspace disease. There is soft tissue density within the left mainstem bronchus and in the left lower lobe bronchus, favor inflammatory/infectious. There are changes from emphysema. The right lung is clear. Limited imaging of the upper abdomen reveals gallstones in the gallbladder. The osseous structures reveal an age-indeterminate T12 fracture. Impression: Left lower lobe airspace disease most consistent with pneumonia with obstruction of the left mainstem bronchus and left lower lobe bronchus by what is likely mucus and infectious material. Consider bronchoscopy. Images reviewed, interpreted, and dictated by Dr. Fab Smith. Transcribed by Chanel Parmar PA-C. XR chest AP portable Narrative: PORTABLE CHEST HISTORY: Ongoing pneumonia. COMPARISON: One day prior. FINDINGS: The heart is normal in size. The mediastinum is unremarkable. There has been no change in the left lung base collapse/consolidation which likely represents pneumonia. There is a small left pleural effusion. The lungs are underinflated with chronic changes throughout. There is no pneumothorax. Status post median sternotomy. Impression: No significant interval change in the left lung base collapse/consolidation which likely represents pneumonia. Images reviewed, interpreted, and dictated by Dr. Juan Bonilla. Transcribed by Va Cevallos PA-C. Assessment and plan #Acute hypoxic respiratory failure: #Left mainstem bronchus occlusion: #Concern for aspiration pneumonia: #COPD exacerbation - Patient admitted to OSH with evidence of volume overload, increased O2 requirements with acute decompesation yesterday, requiring optiflow. WBC 20K - CT chest from outside hospital with near complete pneumonic infiltration of left lower lobe, mildpatchy areas of pneumonia in the right lung. Near complete bronchial obstruction in the left mainstem, upper/lower segmental and subsegmental bronchi due to significant amount of debris with mediastinal and left axillary adenopathy. - continue with IV Zosyn (Multiple recent admissions) + IV doxycycline - DuoNebs 4 times daily daily plus Pulmicort nebs twice daily - Aggressive pulmonary hygiene ordered - Pulmonology consulted, discussed with broaching machine set up operator, plan for CT scan today patient might need bronchoscopy - Strict NPO - MRSA nares, urine antigens, pneumonia PCR and resp cultures ordered - IV solumedrol 40 mg daily for severe CAP -Labs this morning personally interpreted, WBC 17.1, hemoglobin 10.8, CRP 287.3, sodium 148, potassium 3.3 will replace and recheck -Legionella and Streptococcus antigen negative -Respiratory panel negative #Sepsis: Present at OSH 2/2 to PNA - Evidenced by tachycardia, leukocytosis, pneumonia - Continue IV abx as above -WBC 17.1 #Acute on chronic HFpEF - Echo not available but per chart review from OSH, preserved EF. Patient received intermittent IV diuretics at OSH. - TTE ordered - Repeat CXR and labs and will determine need for diuretic therapy - Strict I/O, monitor UOP - Continuous telemetry and spO2 - K> 4, Mg>2, potassium 4.1, magnesium 1.8 #Anxiety disorder: - Resume home ativan 0.5 mg qhs prn #GERD: - Resume home PPI #Normocytic anemia - Labs independently reviewed: Hemoglobin 10.8, hematocrit 32.3 #Dementia: - Continue home namenda and aricept - Delirium precautions: blinds open and lights on during day, sleep aids at night PRN in order to maintain circadian rhythm, frequent re-orientation, encourage family at bedside, limit sedating and anticholinergic medications #Mood disorder: - Continue lexapro 10 mg daily #Hx of CVA: - Continue lipitor 80 mg qhs #Pre-diabetes: - Last A1c 5.6 2 weeks ago - Start SSI #CAD s/p CABG x 3 - Continue aspirin 325 mg daily - Continue toprol 100 mg daily - Continue home imdur 30 mg daily #Chronic T12 burst fracture: - Noted on CT chest with mild central canal stenosis - Recommend outpatient follow-up #Debility -Consult to PT/OT ordered. -Consult to Case Management ordered. -Complicates all aspects of care. CODE STATUS patient is DNR Total amount of critical care time spent was 45 minutes not counting procedures performed. This time included high complexity decision making to assess and treat vital organ system failure in this patient who has impairment of one or more vital organ systems such that there is a high probability ofimminent or life threatening deterioration of the patient??s condition. Failure to initiate the above interventions on an urgent basis would likely result in sudden, clinically significant or life-threatening deterioration in the patient's condition. The patient required my highest level of preparedness to intervene and I personally spent this critical care time directly and personally managing the patient. This critical care time included obtaining a history; examining the patient; vitals monitoring including pulse oximetry; ordering and review of studies; arranging treatment and plan management; evaluation of patient's response to treatment; re-assessments; and any discussions with familymembers, other providers and ICU staff. * JANELLE Magaña/Cathy - 01/13/2025 2:32 PM EDT Images from the original note were not included. [facility] Inpatient Occupational Therapy Attempt to Evaluate Patient Name: Margarita Stone Birthday: 1950 Date of Attempt: 01/13/2025 Received orders to evaluate however client receiving swallow study with G[employer] GOLF CART REPAIRER at time of arrival. Bel RN states client is total to roll in bed for toilet hygiene, bathing, and dressing. Will attempt to see client later this date a schedule allows. 8 minutes spent for nursing collaboration, thorough chart and systems review, and clinical reasoning in direct relation to patient care. 1 zero charges dropped to account for therapist's time. Electronically signed by Yara Brice OTR/Cathy - 01/13/2025 - 3:14 PM EDT * Digna Villafana CCC-G[employer] GOLF CART REPAIRER - 01/13/2025 2:24 PM EDT Images from the original note were not included. [facility] Speech Language Pathology Flexible Endoscopic Evaluation of Swallowing Initial evaluation Therapy Diagnosis: Disordered pharyngeal skills Recommendations: 1. Regular/extremely thick 2. Meds in puree 3. Dysphagia tx 4. Repeat instrumental w/ decreased O2 demands Patient Name: Margarita Stone Birthday: 1950 Age: 74 y.o. Today: 01/13/2025 Time: 0421-1584 includes time spent for nursing collaboration, chart and systems review, and clinical reasoning. Mental status: Alert , Cooperative, and Follows commands Pain: 0 via 0-10 verbal Time out completed prior to study. History Additional Information: Pt admitted with acute hypoxic respiratory failure. +Recurrent PNA with concern for aspiration. Pt is on Optiflow. Pt with hx for CVA, dementia, and respiratory failure requiring home O2. G[employer] GOLF CART REPAIRER consulted for bedside dysphagia evaluation. Bedside was deferred and FEES was completed given current O2 demands. Speech and Dysphagia History: No previous ST in EMR Patient Active Problem List Diagnosis Aspiration pneumonia (HCC) Bronchial obstruction No past medical history on file. No past surgical history on file. Current diet: NPO Except: Sips with meds Subjective No c/o. Objective Respiratory Status: 55L @ 55% opti-flow Scope: S4 Pre-cleaning: Scope was sanitized using the [employer] (R) endoscope wallpaper cleaner and reprocessor prior to study. These elements were verified: -Cidex: Passed -Leak Test 1: Passed -HLD Requirement: Achieved -Leak Test 2: Passed -Date Cleaned: 01/13/25 Post-cleaning: Scope was immediately rinsed with enzymatic wallpaper cleaner following procedure. Scope placement: Right Tolerance to scope: good Anatomy: WFL Speaking valve trials: Not indicated Feeding Presentation Style: family Residue (overall score for each Vallecular and Pyriform Residue): 03/27 (Scoring based off of the [place] Pyriform Sinus Residue & [place] Vallecula Residue Severity Scale) [place] Vallecular Severity Scale None 0% No residue 2 Trace 2-5% Trace coating fo [place] Mild 5-25% Epiglottic Ligament Visible Moderate 25-50% Epiglottic Ligament Covered Severe > 50% Filled to Epiglottic Rim [place] Pyriform Severity Scale None 0%- no residue Trace 2-5% Trace coating of [place] Mild 5-25% Up wall to ?? full Moderate 25-50% Up wall to ?? full Severe >50 % Filled to arypiglottic fold PENETRATION/ASPIRATION SCALE: 1 2 3 4 5 6 7 8 Straw sip thin [] [] [] [] [] [] [] [x] Straw sip mildly thick [] [] [] [] [] [] [] [x] Tsp puree/extremely thick [x] [] [] [] [] [] [] [] Tsp puree/extremely thick [x] [] [] [] [] [] [] [] Cracker [x] [] [] [] [] [] [] [] Cracker [x] [] [] [] [] [] [] [] Straw Sip Moderately Thick (if needed) [] [] [] [] [] [] [] [x] Straw Sip Moderately Thick (If needed) [] [] [] [] [] [] [] [x] Description of Penetration/Aspiration Scale: 1. Material does not enter airway. 2. Material enters airway, remains above the vocal folds, and is ejected from the airway. 3. Material enters airway, remains above the vocal folds, and is not ejected from the airway. 4. Material enters airway, contacts the vocal folds, and is ejected from the airway. 5. Material enters airway, contacts the vocal folds, and is not ejected from the airway. 6. Material enters airway, passes below the vocal folds, and is ejected from trachea. 7. Material enters airway, passes below the vocal folds, and is not ejected from the trachea despite effort. 8. Material enters airway, passes below the vocal folds, and no effort is made to eject. (Falguni López et al. A penetration-aspiration scale. Dysphagia. 1996;11(2):93-8.) Relevant Imaging: Normal pharyngeal anatomy Aspiration of thin Aspiration of thin Aspiration of mildly thick Aspiration of moderately thick Assessment Patient seen for FEES. She is on Optiflow. The nasoendoscope passes easily via R naris. Pharyngeal anatomy is unremarkable. Patient presents with normal oral skills and disordered pharyngeal skills. Pharyngeal dysphagia is characterized by impaired airway protection. There is premature loss with thins, mildly thick and moderately thick liquids with swallow initiation in the pyriforms. There is observed alpa silent aspiration during the swallow. Aspiration is secondary to delayed swallow reaction time. Cued cough is weak and ineffective. There is no abnormal pharyngeal residue with any consistency. At this time, pt appears safe to initiate a regular diet and extremely thick liquids. Meds are fine crushed in puree/pudding. Ice is ok after oral care. G[employer] GOLF CART REPAIRER will tx dysphagia and repeat instrumental in 3-5 days with decreased O2 demands. Education was provided to family. RN was alerted to results/recommendations. Geary precaution sign and white board were updated. Prognosis: Good for improved function with skilled speech pathology services focusing on stated goals. Patient Education:Instructed, Verbalized understanding, and Family Results and recommendations of this evaluation were communicated to: RN Plan Therapy Frequency: 3x F/u Imaging: Not indicated at this time Longterm Goals: 1. Patient will maintain adequate hydration/nutrition with optimum safety and efficiency of swallowing function on P.O. intake without overt signs and symptoms of aspiration for the highest appropriate diet level Personal Goal: I am going to eat that applesauce. Short Term Goals: 1. Complete a FEES of the Swallow to fully assess physiology and anatomy of the swallow and to determine the appropriate diet and/or rehabilitation exercises. - initial completed 01/13/25, repeat in 3-5 days with decreased O2 demands 2. Patient will complete pharyngeal strengthening exercises 3. Patient will complete tongue base strengthening exercises G[employer] GOLF CART REPAIRER Recommendations at discharge: Patient will need ongoing GAS GOLF CART REPAIRER services at discharge targeting dysphagia This will serve as a discharge statement if patient is discharged before further visits. Electronically signed by RIVER Ortiz - 01/13/2025 - 3:06 PM EDT G[employer] GOLF CART REPAIRER Evaluation Completed * RIVER Ortiz - 01/13/2025 2:20 PM EDT Speech Language Pathology Missed Visit Note Patient Name: Margarita Stone Today's Date: 01/13/2025 Reason for Missed Visit: other Comments: Received new orders for dysphagia evaluation. Pt without source and on Optiflow. GAS GOLF CART REPAIRER willdefer bedside and proceed with FEES. Time: 1420 Electronically signed by RIVER Ortiz- 01/13/2025 - 2:20 PM EDT * Eri Oneal RN - 01/13/2025 11:22 AM EDT [facility] [employer], Dr. Jeffery, reviewed case and assessed patient. Notified of K+ 3.3, mag 1.8, patient A&O x2, and dysphagia (able to tolerant small meds with sips of H20). Consulted speech for a stat swallow eval per MD order. Replaced K+ and Mag with 2g mag IVPB and 40 mEq EFFER-K per MD order. CT chest without contrast placed per MD order. * Donnie Jeffery MD - 01/13/2025 8:15 AM EDT Consults PULMONARY AND CRITICAL CARE Consult Note Date of Service: 01/13/2025 Reason for Consult: For critical care management. Referring: MD Thony HPI: This is a 74 y.o. year old female with past medical history of Chronic Respiratory Failure on 2L NCat baseline, COPD, CVA with slight residual on word finding, question of Dementia?, HTN/HLD and DM.She presented to [facility] due to increasing shortness of breath and cough for 1-2 days.Family reports she has had some recurrent pneumonia and issues with aspiration recently. CT chest from outside hospital with near complete pneumonic infiltration of left lower lobe, mild patchy areas of pneumonia in the right lung. Near complete bronchial obstruction in the left mainstem, upper/lower se gmental and subsegmental bronchi due to significant amount of debris with mediastinal and left axillary adenopathy. WBC 17.9, Cr 1.03. Pulmonary has been consulted for ICU management and need for bronchoscopy. 01/13 I have seen and examined the patient this morning, daughter at bedside I have discussed with her about the patient condition answered all her questions and concerns, discussed with her that thepatient has left lower lobe atelectasis could be from mucous plug or aspiration, will check CT chest for evaluation. She said if the patient absolutely need bronchoscopy she is okay with intubating the patient for procedure otherwise the patient is DNR/DNI. Depending on the result of the CT scan wewill consider to do bronchoscopy. Patient was started on chest physiotherapy, flutter valve, incentive spirometry. Echo on 01/13 was done pending report. Patient on Optiflow 55 L and 50%, will titrate down as tolerated, WBC 17.1, sodium 148, fluid balance -750 mL, on doxycycline and Zosyn. PAST MEDICAL HISTORY: No past medical history on file. PAST SURGICAL HISTORY: No past surgical history on file. No past surgical history on file. Allergies: Not on File SOCIAL HISTORY: FAMILY HISTORY: family history is not on file. Review of Systems Constitutional: Positive for malaise/fatigue. HENT: Negative. Eyes: Negative. Respiratory: Positive for cough, shortness of breath and wheezing. Gastrointestinal: Negative. Genitourinary: Negative. Musculoskeletal: Positive for joint pain. Neurological: Positive for weakness. Psychiatric/Behavioral: Negative. Vital Signs Temp: [97.6 ??F (36.4 ??C)-98.5 ??F (36.9 ??C)] 97.6 ??F (36.4 ??C) Pulse: [60-84] 69 Resp: [7-33] 14 BP: (124-192)/(58-88) 157/70 FiO2 (%): [45 %-55 %] 55 % Current: Temp: 97.6 ??F (36.4 ??C) Pulse: 69 Resp: 14 BP: (!) 157/70 SpO2: 100 % 24 Hour: BP Min: 124/58 Max: 192/74 Temp Min: 97.6 ??F (36.4 ??C) Max: 98.5 ??F (36.9 ??C) Pulse Min: 60 Max: 84 Resp Min: 7 Max: 33 SpO2 Min: 92 % Max: 100 % Intake/Output: I/O last 3 completed shifts: In: 450 [IV Piggyback:450] Out: 1550 [Urine:1550] Physical Exam Constitutional: Appearance: She is ill-appearing. HENT: Head: Normocephalic. Mouth/Throat: Mouth: Mucous membranes are dry. Eyes: Pupils: Pupils are equal, round, and reactive to light. Cardiovascular: Rate and Rhythm: Normal rate and regular rhythm. Pulmonary: Breath sounds: Rhonchi present. Comments: Diminshed left lung breath sounds, crackles noted Abdominal: General: Bowel sounds are normal. Musculoskeletal: General: No deformity. Skin: Capillary Refill: Capillary refill takes less than 2 seconds. Coloration: Skin is pale. Neurological: Mental Status: Mental status is at baseline. She is disoriented. Psychiatric: Mood and Affect: Mood normal. Intake/Output: I/O last 3 completed shifts: In: 450 [IV Piggyback:450] Out: 1550 [Urine:1550] LABS Results for orders placed or performed during the hospital encounter of 01/12/25 (from the past 24 hours) ECG 12 lead Status: None (In process) Collection Time: 01/12/25 8:46 AM Result Value Ref Range SYSTOLIC BLOOD PRESSURE (MCT) 166 mmHg DIASTOLIC BLOOD PRESSURE (MCT) 74 mmHg VENTRICULAR RATE EKG/MIN 82 BPM ATRIAL RATE (MCT) 82 BPM ND Interval 194 ms QRS-INTERVAL (MSEC) 82 ms QT Interval 372 ms QTC Interval 434 ms P Chaplin 50 degrees R AXIS (MCT) 103 degrees T Wave Chaplin 133 degrees [place] Diagnosis Normal sinus rhythm Rightward axis Anteroseptal infarct , age undetermined Abnormal ECG No previous ECGs available Strep pneumoniae urine antigen Status: Normal Collection Time: 01/12/25 10:33 AM Specimen: Urine, Unspecified Source Result Value Ref Range Strep pneumoniae Antigen Presumptive negative for pneumococcal pneumonia- see comment Presumptive negative for pneumococcal pneumonia - see comment Legionella antigen, urine Status: Normal Collection Time: 01/12/25 10:33 AM Result Value Ref Range Legionella Urine Antigen Presumptive negative for L. pneumophila serogroup 1 antigen in urine- see comment Presumptive negative for L. pneumophila serogroup 1 antigen in urine- see comment Glucose, Nova Meter Status: Abnormal Collection Time: 01/12/25 12:08 PM Result Value Ref Range POC-GLUCOSE 152 (H) 70 - 110 mg/dL Wire Spooler [id number] Glucose, Nova Meter Status: Abnormal Collection Time: 01/12/25 5:12 PM Result Value Ref Range POC-GLUCOSE 188 (H) 70 - 110 mg/dL Wire Spooler [id number] Basic Metabolic Panel Status: Abnormal Collection Time: 01/12/25 7:49 PM Result Value Ref Range Sodium 148 (H) 136 - 145 meq/L Potassium 4.1 3.4 - 5.1 meq/L CO2 29 22 - 29 meq/L Chloride 103 98 - 112 meq/L Glucose 168 (H) 82 - 115 mg/dL BUN 22.1 (H) 9.8 - 20.1 mg/dL Creatinine 1.06 0.50 - 1.20 mg/dL BUN/Creatinine 21 (H) 8 - 20 Calcium 9.2 8.4 - 10.2 mg/dL Anion Gap 20 (H) 4 - 12 eGFR (mL/min/1.73m2) 55 (L) >=60 mL/min/1.73m2 Osmolality Calc 301.5 mOsm/kg Glucose, Nova Meter Status: Abnormal Collection Time: 01/13/25 12:04 AM Result Value Ref Range POC-GLUCOSE 130 (H) 70 - 110 mg/dL Wire Spooler [id number] CBC - Hemogram (SJ-BKR) Status: Abnormal Collection Time: 01/13/25 4:09 AM Result Value Ref Range WBC 17.1 (H) 4.0 - 10.0 K/??L RBC 3.58 (L) 3.93 - 5.22 M/??L Hemoglobin 10.8 (L) 11.2 - 15.7 GM/DL Hematocrit 32.3 (L) 34.1 - 44.9 % MCV 90 79 - 95 fL MCH 30.2 25.6 - 32.2 pg MCHC 33.4 32.2 - 35.5 GM/DL RDW 16.1 (H) 11.7 - 14.4 % Platelets 268 140 - 375 K/CU MM MPV 11.4 9.4 - 12.3 fL CALCIUM Ionized Status: Normal Collection Time: 01/13/25 4:09 AM Result Value Ref Range Calcium Ionized 1.14 1.12 - 1.32 mmol/L Glucose, Nova Meter Status: Abnormal Collection Time: 01/13/25 6:12 AM Result Value Ref Range POC-GLUCOSE 113 (H) 70 - 110 mg/dL Wire Spooler [id number] Magnesium Status: Normal Collection Time: 01/13/25 6:15 AM Result Value Ref Range Magnesium 1.8 1.6 - 2.6 mg/dL Comprehensive metabolic panel Status: Abnormal Collection Time: 01/13/25 6:15 AM Result Value Ref Range Sodium 148 (H) 136 - 145 meq/L Potassium 3.3 (L) 3.4 - 5.1 meq/L Chloride 103 98 - 112 meq/L CO2 34 (H) 22 - 29 meq/L Calcium 9.2 8.4 - 10.2 mg/dL Glucose 116 (H) 82 - 115 mg/dL BUN 21.8 (H) 9.8 - 20.1 mg/dL Creatinine 1.19 0.50 - 1.20 mg/dL BUN/Creatinine 18 8 - 20 eGFR (mL/min/1.73m2) 48 (L) >=60 mL/min/1.73m2 Albumin 2.5 (L) 3.5 - 5.0 g/dL Alkaline Phosphatase 84 40 - 150 U/L ALT 13 <55 U/L AST 19 5 - 34 U/L Total Bilirubin 0.3 0.3 - 1.2 mg/dL Protein, Total 5.9 (L) 6.4 - 8.3 g/dL Globulin 3.4 2.5 - 4.1 g/dL Anion Gap 14 (H) 4 - 12 A/G Ratio 0.7 0.7 - 1.9 Osmolality Calc 298.5 mOsm/kg ECG 12 lead Status: None (In process) Collection Time: 01/13/25 8:05 AM Result Value Ref Range SYSTOLIC BLOOD PRESSURE (MCT) 159 mmHg DIASTOLIC BLOOD PRESSURE (MCT) 70 mmHg VENTRICULAR RATE EKG/MIN 65 BPM ATRIAL RATE (MCT) 65 BPM ND Interval 180 ms QRS-INTERVAL (MSEC) 82 ms QT Interval 420 ms QTC Interval 436 ms P Chaplin 47 degrees R AXIS (MCT) 100 degrees T Wave Chaplin 112 degrees [place] Diagnosis Normal sinus rhythm Rightward axis Cannot rule out Anterior infarct (cited on or before 12-JAN-2025) Abnormal ECG When compared with ECG of 12-JAN-2025 08:46, Serial changes of Anterior infarct present No results found for: PT , INR , PTT CHEM7: Sodium Date Value Ref Range Status 01/13/2025 148 (H) 136 - 145 meq/L Final Potassium Date Value Ref Range Status 01/13/2025 3.3 (L) 3.4 - 5.1 meq/L Final Chloride Date Value Ref Range Status 01/13/2025 103 98 - 112 meq/L Final CO2 Date Value Ref Range Status 01/13/2025 34 (H) 22 - 29 meq/L Final BUN Date Value Ref Range Status 01/13/2025 21.8 (H) 9.8 - 20.1 mg/dL Final Creatinine Date Value Ref Range Status 01/13/2025 1.19 0.50 - 1.20 mg/dL Final eGFR (mL/min/1.73m2) Date Value Ref Range Status 01/13/2025 48 (L) >=60 mL/min/1.73m2 Final Comment: ESTIMATED GFR IS NOT ACCURATE CREATININE CLEARANCE IN PREDICTING GLOMERULAR FILTRATION RATE. ESTIMATED GFR IS NOT APPLICABLE FOR DIALYSIS PATIENTS. Calcium Date Value Ref Range Status 01/13/2025 9.2 8.4 - 10.2 mg/dL Final Lab Results Component Value Date AST 19 01/13/2025 ALT 13 01/13/2025 No results for input(s): POCGLU in the last 72 hours. No results for input(s): POCPH , POCPCO2 , POCPO2 , POCABG in the last 72 hours. Invalid input(s): POCSAT , POCART , ARTPOC Microbiology: Microbiology Results (last 7 days) Procedure Component Value Units Date/Time Strep pneumoniae urine antigen [[id number]] (Normal) Collected: 01/12/25 1033 Order Status: Completed Specimen: Urine, Unspecified Source Updated: 01/12/25 1114 Strep pneumoniae Antigen Presumptive negative for pneumococcal pneumonia - see comment Narrative: A presumptive negative result suggests no current or recent pneumococcal infection. Infection due to S. pneumoniae cannot be ruled out since the antigen present in the specimen may be below the detection limit of the test. Pneumonia PCR Panel w/Respiratory Culture [[id number]] Order Status: Sent Specimen: Sputum from Lung, Left Lower Lobe Narrative: The following orders were created for panel order Pneumonia PCR Panel w/Respiratory Culture. Procedure Abnormality Status --------- ------ Pneumonia PCR Panel[[id number]] Respiratory Culture[[id number]] Please view results for these tests on the individual orders. Pneumonia PCR Panel [[id number]] Order Status: Sent Specimen: Sputum from Lung, Left Lower Lobe Respiratory Culture [[id number]] Order Status: Sent Specimen: Sputum from Lung, Left Lower Lobe Pneumonia PCR Panel w/Respiratory Culture [[id number]] Collected: 01/12/25606 Order Status: Completed Specimen: Sputum from Expectorated Updated: 01/12/25 0847 Narrative: The following orders were created for panel order Pneumonia PCR Panel w/Respiratory Culture. Procedure Abnormality Status --------- ------ Pneumonia PCR Panel[[id number]] Respiratory Culture[[id number]] Final result Please view results for these tests on the individual orders. Respiratory Culture [[id number]] Collected: 01/12/25606 Order Status: Completed Specimen: Sputum from Expectorated Updated: 01/12/25 0847 Result Sputum unsatisfactory for culture. Microscopic evaluation indicates significant upper respiratory contamination with epithelial cells.Submit another specimen. Gram Stain Result >25 Epithelial cells/LPF Narrative: Sputum rejection called to Respiratory Care Team Pneumonia PCR Panel [[id number]] Collected: 01/12/25606 Order Status: Canceled Specimen: Sputum from Expectorated Updated: 01/12/25 06 MRSA Screen [[id number]] (Normal) Collected: 01/12/25328 Order Status: Completed Specimen: Nasal from Nares Updated: 01/12/25 0532 MRSA by PCR [facility] MRSA Not Detected by PCR Respiratory Panel [[id number]] (Normal) Collected: 01/12/25328 Order Status: Completed Specimen: Nasopharyngeal Swab Updated: 01/12/25 0449 ADENOVIRUS Not detected CORONAVIRUS 229E Not detected CORONAVIRUS HKU1 Not detected CORONAVIRUS NL63 Not detected CORONAVIRUS OC43 Not detected SARS-COV2/RT-PCR Not Detected HUMAN METAPNEUMOVIRUS Not detected HUMAN RHINOVIRUS/ENTEROVIRUS Not detected INFLUENZA A Not detected INFLUENZA B Not detected PARAINFLUENZA VIRUS 1 Not detected PARAINFLUENZA VIRUS 2 Not detected PARAINFLUENZA VIRUS 3 Not detected PARAINFLUENZA VIRUS 4 Not detected RESPIRATORY SYNCYTIAL VIRUS Not detected BORDETELLA PARAPERTUSSIS Not detected BORDETELLA PERTUSSIS Not detected CHLAMYDIA PNEUMONIAE Not detected MYCOPLASMA PNEUMONIAE Not detected Narrative: Testing was performed with RT-PCR methodology using the Biomeme Respiratory Panel 2.1 which has FDADe Brenda approval for SARS-CoV-2 testing. Negative results do not preclude infection with the SARS-CoV-2 virus and should not be used as the sole basis of patient treatment or public health decisions.Negative results must be considered in the context of an individual's recent exposures, history, and presence of clinical signs/symptoms. Follow-up testing should be performed according to the current CDC recommendations. Other viruses and bacteria not targeted by this PCR panel cannot be excluded; therefore clinical correlation and follow up of serology, culture results, and other molecular studies is required. The results are not intended to be used as the sole means for clinical diagnosis or patient management decisions. This sample was tested at the [facility] using the CREATIV.COMArray Respiratory Panel. It is FDA cleared and has been verified and approved by the [facility] for clinical use on nasopharyngeal swab specimens. The performance of the FilmArray RP has not been established in individuals who received influenza vaccine. Recent administration of a nasal influenza vaccine may cause false positive results for Influenza A and/or Influenza B. Radiology Results (last day) Procedure Component Value Units Date/Time XR chest AP portable - In process [[id number]] Resulted: 01/13/25535 Order Status: Sent Updated: 01/13/25535 This result has not been signed. Information might be incomplete. No valid procedures specified. ASSESSMENT: Pulmonary Acute on Chronic Hypoxemic Respiratory Failure -CT chest from outside hospital with near complete pneumonic infiltration of left lower lobe, mild patchy areas of pneumonia in the right lung. Near complete bronchial obstruction in the left mainstem, upper/lower segmental and subsegmental bronchi due to significant amount of debris with mediastinal and left axillary adenopathy Recurrent pneumonia due to aspiration. COPD with exacerbation Former tobacco abuse Neurology: Dementia? On namenda and Aricept H/O CVA with some word finding issues Cardiology: Hypertension HLD Infectious disease: Leukocytosis Left lung pneumonia Nephrology: Stable bun/Cr CKD 3a Gastroenterology: Dysphagia likely? Recurrent aspiration pneumonia GERD Endocrine: DM Hematology: Anemia; Mild PLAN: Maintain sat >89%, currently on Optiflow 55 L and 50%, will titrate down as tolerated Started on IV Solu-Medrol, DuoNeb. Budesonide. daughter at bedside I have discussed with her about the patient condition answered all her questions and concerns, discussed with her that the patient has left lower lobe atelectasis could be from mucous plug or aspiration, will check CT chest for evaluation. She said if the patient absolutely needbronchoscopy she is okay with intubating the patient for procedure otherwise the patient is DNR/DNI. Depending on the result of the CT scan we will consider to do bronchoscopy. Patient was started onchest physiotherapy, flutter valve, incentive spirometry. Awake and alert Keep head of bed at 30 degrees and maintain aspiration precautions. Hypertension on amlodipine 5 daily, hydrochlorothiazide. On aspirin, atorvastatin, metoprolol. Echocardiogram: Echo was done on 01/13 pending report Hemodynamic: Hemodynamically stable Hemodynamic support: Maintain MAP above 65. Antibiotics: Doxycycline and Zosyn Follow up on cultures. On IV Lasix 20 twice daily. Bun/Cr reviewed Monitor renal functions and electrolytes closely. Replace electrolytes per protocol. Maintain serum potassium of 4.0, magnesium of 2.0 and phosphorusof 2.5 and normal latest calcium with appropriate replacement. Monitor I&O. Avoid nephrotoxins. Nutrition: N.p.o. until evaluated by speech therapy. Started on bowel Regimen. Hyperglycemia: Target glucose 140-180 mg/dL. SSI, monitor BS. Hold home antidiabetic medications. Monitor H&H. Transfuse as needed. Musculoskeletal: Consulted PT/OT. GI prophylaxis: Pantoprazole DVT prophylaxis: Subcu heparin Code Status: Current Code Status DNR: Interventions Limited: No Intubation Prognosis: Guarded. At risk for respiratory and cardiovascular complications. Disposition: The patient remain critically ill, would recommend to keep the patein in the ICU. CRITICAL CARE TIME: Cumulative critical care time spent on the patient for the day excluding procedures 36 minutes. Patient seen and examined at bedside. I performed history and physical examination. I reviewed laboratory studies, imaging studies, other diagnostic studies, and inpatient medications. Chest imaging studies visualized and reviewed independent of radiologist. Case discussed with the multidisciplinary team including nurse practitioner, nurse, RT, garnetter, pharmacist, and case management during multidisciplinary round. I Dr.Hazim Latia MD, have personally evaluated the patient and performed a [id number] diagnostic evaluation on this patient; I have Obtained history, performed physical examination, reviewed laboratory studies. I have reviewed images independent of radiologist. I have actively directed the medical care, formulated diagnosis, and the plan of care. Patient requires a high complexity of decision making for assessment. Voice photographer apprentice technology (Zokem) is used for dictation of this note and sound-alike words might be erroneously placed despite reviewing the note for accuracy. Errors in dictation may reflect use of voice recognition software and not all errors in photographer apprentice may have been detected prior to signing. It may contain errors and words that were not intended to be used. Please contact the provider for errors or clarifications. * Danielle Bravo, PT - 01/12/2025 1:20 PM EDTSummary: Eval Images from the original note were not included. Inpatient Physical Therapy Initial Evaluation Patient Name: Margarita Stone Date of : 1950 Date of Evaluation: 01/12/25 In Time 1305 Out Time 1320 Session Duration 15 minutes Time spent for nursing collaboration, chart and systems review, and clinical reasoning. 10 minutes Total Time 25 minutes Pt is a 74 y.o. female admitted on 01/12/2025 with Aspiration pneumonia (HCC) [J69.0] Bronchial obstruction [J98.09]. No past medical history on file. No past surgical history on file. General Visit type: Initial Evaluation Approved by: Nurse Chinchilla Patient Disposition Upon Entry: Supine in bed, Call Light/Pull Cord in reach, All needs met and within reach, Nursing aware/notified, HOB >30 degrees, Side rails up Patient Verified By: Name and Date of Precautions Weight-Bearing Status: No Restrictions Precautions: Fall risk Isolation Precautions: Standard Lines, tubes, drains, airway: blood pressure cuff, optiflow, peripheral IV, pulse oximeter , telemetry Subjective Subjective: Patient agreeable to physical therapy evaluation and treatment. Patient goal: Be able to breathe better and go home. Pain No - Patient not reporting pain at this time Cognition Overall cognitive status: Patient is awake and alert, attending to directions appropriately, demonstrating good problem solving skills, and aware of any deficits or impairments, if present. Orientation Level: Oriented x4 Following commands: Follows all commands and directions without difficulty Safety Judgment: Good awareness of safety precautions Home Living Lives with: Daughter Home Type: House Home Layout: One level Stairs to enter: None Stairs inside home: none Home Equipment: Standard walker, Manual wheelchair, BSC Functional Mobility PLOF: Pt states she sleeps in a recliner and her daugther helps her stand and pivot with a Rwx to a BSC or w/c. She says she does not amb. Activities of Daily Living PLOF: Pt says her daugther helps her on/off BSC and with a sponge bath. Fall History: No, patient denies any falls over the last 6 months. Objective Vitals HR is 75, BP is 171/75 and 02 sat is 97% on OptiFlow Basic Strength Assessment RUE and RLE are 3/5 and LUE and LLE are 2/5. Pt reports a prior stroke that made her L side weaker. Range of Motion Assessment WFL for all extremitiesAROM on RUE/RLE and AAROM on LUE/LLE Sensation Sensation is intact and equal bilaterally. Coordination NT Functional Mobility Bed Mobility Rolling Left: maximal assistance Rolling Right: maximal assistance Transfers Unable to assess due to shortness of air and fatigue. Gait Patient is non-ambulatory at baseline. Stair Management Patient is non-ambulatory at baseline. Wheelchair Mobility Patient unable to propel wheelchair at baseline. Outcome Measures NT AM-PAC Basic Mobility Inpatient Short Form How much difficulty does the patient currently have: Turning over in bed (including adjusting bedclothes, sheets, and blankets)? (1) Total/Unable (not able to do the activity or can only perform the activity using assistive devices or requires assistance from another person, including supervision or cueing for safety) Sitting down on and standing up from a chair with arms (e.g., wheelchair, bedside commode, etc.)? (1) Total/Unable (not able to do the activity or can only perform the activity using assistive devices or requires assistance from another person, including supervision or cueing for safety) Moving from lying on back to sitting on side of bed? (1) Total/Unable (not able to do the activity or can only perform the activity using assistive devices or requires assistance from another person,including supervision or cueing for safety) How much help from another person does the patient currently need: Moving to and from a bed to a chair (including a wheelchair)? (1) Total/Unable (Total assist/dependent) Need to walk in hospital room? (1) Total/Unable (Total assist/dependent) Climbing 3-5 steps with a railing? (1) Total/Unable (Total assist/dependent) Score Raw score=6 t-Scale score=23.55 Standard error=4.57 CMS 0-100%=100.00% MDC=4.72 A raw score of >= 16 is significantly associated with increased odds of discharge to home in addition to consideration made for the patient's cognition and social determinants of health. Balance Unable to assess Activity Tolerance Patient limited with activity/intervention due to fatigue and shortness of air Treatment Pt is very pleasant and answers questions and does ROM. She did not take any resistance for MMT andshe says this is due to SOA. She reports sleeping in a recliner and only standing to pivot onto BSCor into w/c with A from her daughter. Assessment At baseline, patient required assistance with functional mobility. Patient presenting with decreased activity tolerance, generalized weakness with functional activities, impaired dynamic balance withtransfers, and fatigue with physical exertion. Because of this, patient would have difficulty with i ndependently performing dressing, toileting, and transferring. These functional limitations put thepatient at an increased risk for falling and caregiver burden. Patient would benefit from skilled physical therapy services during length of stay for balance training to decrease risk of falling, endurance training to improve activity tolerance, transfer training, and progression of mobility. Problems: Decreased core stability, Decreased functional mobility, Decreased activity tolerance, Impaired sitting balance, Impaired standing balance, Impaired dynamic balance Rehab potential: Fair Plan Treatment Plan: Therapeutic Exercise, Therapeutic Activity, Transfer Training, Balance Training PT Frequency/Duration: 3x/week for 14 days Recommendations Discharge recommendations: Discharge home/prior living situation. Patient would benefit from continued therapy services. DME recommendations: Patient has no DME/adaptive equipment discharge needs at this time. Goals [id number]-[id number]: By the target date, patient will perform [id number] with minimal assistance, utilizing bed railing, to decrease caregiver burden. Opv-ra-hlakk: By the target date, patient will perform sit to stand with minimal assistance and rolling walker to decrease caregiver burden and decrease risk of falling. Transfer: By the target date, patient will perform stand-pivot transfer to a bedside commode, recliner chair, or wheelchair with minimal assistance and utilizing rolling walker, demonstrating abilityto safely transfer while in hospital setting to decrease caregiver burden and decrease risk of falling. Target Date: 01/26/2025 Goals were discussed with patient Education Patient educated on safety, use of call button, role of physical therapy, and plan of care and following, they were able to verbalize understanding. No further questions or concerns stated. Interdisciplinary Communication Following treatment, therapist communicated with nursing regarding patient's performance during physical therapy session. Patient Disposition Upon Leaving Supine in bed, Call Light/Pull Cord in reach, All needs met and within reach, HOB >30 degrees, Side rails up, Nursing at bedside If this patient discharges prior to next therapy session, this note serves as the patient's discharge summary. Electronically signed by Danielle Bravo PT - 01/12/25 - 2:19 PM EDT PT Evaluation Completed documented in this encounter H&P Notes * Carmelita Spencer DO - 01/12/2025 12:45 AM EDT [facility] Physician History & Physical Patient Name: Margarita Stone : 1950 Primary Care Physician: No primary care provider on file. Date of Admission: (Not on file) Subjective Chief Complaint: Shortness of breath History Of Present Illness Ms. Stone is a 74 yo female with history of CVA, CHF, tobacco use disorder, COPD on 2 L at baseline, HTN, HLD, DM presenting from OSH for left main stem bronchus occlusion Jorde of history taken from daughter and outside hospital records. Patient has been experiencing shortness of breath for the past 1 to 2 days. She was endorsing increased cough and work of breathing.She had some subjective chills but no objective fevers. She has had a recent hospitalization due toaspiration pneumonia 2 weeks prior. She was seen and evaluated at outside facility on admission required 5 L nasal cannula. Workup at outside hospital demonstrated evidence of leukocytosis to 20K. Imaging demonstrated left lower lobe pneumonia. BNP was elevated to 5000. Patient admitted to outside facility for further management. ROS: Full 10 point ROS performed and negative unless mentioned in above HPI Past Medical History She has no past medical history on file. Surgical History She has no past surgical history on file. Family History She family history is not on file. Social History She has no history on file for tobacco use, alcohol use, and drug use. Allergies Patient has no allergy information on record. Medications No current outpatient medications Objective Assessment Last Recorded Vitals There were no vitals taken for this visit. There is no height or weight on file to calculate BMI. Physical Exam Vitals reviewed. Constitutional: Appearance: Normal appearance. She is ill-appearing and toxic-appearing. HENT: Head: Normocephalic and atraumatic. Mouth/Throat: Mouth: Mucous membranes are dry. Eyes: Extraocular Movements: Extraocular movements intact. Pupils: Pupils are equal, round, and reactive to light. Cardiovascular: Rate and Rhythm: Normal rate and regular rhythm. Pulses: Normal pulses. Heart sounds: Normal heart sounds. Pulmonary: Effort: Pulmonary effort is normal. Breath sounds: Normal breath sounds. Comments: Near absent left sided breath sounds, some bibasilar crackles, right side with coarse breath sounds, no wheezing, minimal chest wall excursion with respirations, optiflo Abdominal: General: Abdomen is flat. Palpations: Abdomen is soft. Musculoskeletal: General: Normal range of motion. Cervical back: Normal range of motion and neck supple. Right lower leg: Edema present. Left lower leg: Edema present. Skin: General: Skin is warm and dry. Neurological: General: No focal deficit present. Mental Status: She is alert and oriented to person, place, and time. Comments: Soft speech Psychiatric: Mood and Affect: Mood normal. Behavior: Behavior normal. Imaging: No image results found. Assessment/Plan #Acute hypoxic respiratory failure: #Left mainstem bronchus occlusion: #Concern for aspiration pneumonia: #COPD exacerbation - Patient admitted to OSH with evidence of volume overload, increased O2 requirements with acute decompesation yesterday, requiring optiflow. WBC 20K - CT chest from outside hospital with near complete pneumonic infiltration of left lower lobe, mildpatchy areas of pneumonia in the right lung. Near complete bronchial obstruction in the left mainstem, upper/lower segmental and subsegmental bronchi due to significant amount of debris with mediastinal and left axillary adenopathy. - Start IV Zosyn (Multiple recent admissions) + IV doxycycline - Start DuoNebs 4 times daily daily plus Pulmicort nebs twice daily - Aggressive pulmonary hygiene ordered - Pulmonology consulted for bronchoscopy - Strict NPO - MRSA nares, urine antigens, pneumonia PCR and resp cultures ordered - Start IV solumedrol 40 mg daily for severe CAP #Sepsis: Present at OSH 2/2 to PNA - Evidenced by tachycardia, leukocytosis, pneumonia - Continue IV abx as above #Acute on chronic HFpEF - Echo not available but per chart review from OSH, preserved EF. Patient received intermittent IV diuretics at OSH. - TTE ordered - Repeat CXR and labs and will determine need for diuretic therapy - Strict I/O, monitor UOP - Continuous telemetry and spO2 - K> 4, Mg>2 #Anxiety disorder: - Resume home ativan 0.5 mg qhs prn #GERD: - Resume home PPI #Normocytic anemia - Labs independently reviewed: Hgb 10.8, MCV 91 #Dementia: - Continue home namenda and aricept - Delirium precautions: blinds open and lights on during day, sleep aids at night PRN in order to maintain circadian rhythm, frequent re-orientation, encourage family at bedside, limit sedating and anticholinergic medications #Mood disorder: - Continue lexapro 10 mg daily #Hx of CVA: - Continue lipitor 80 mg qhs #Pre-diabetes: - Last A1c 5.6 2 weeks ago - Start SSI #CAD s/p CABG x 3 - Continue aspirin 325 mg daily - Continue toprol 100 mg daily - Continue home imdur 30 mg daily #Chronic T12 burst fracture: - Noted on CT chest with mild central canal stenosis - Recommend outpatient follow-up #Debility -Consult to PT/OT ordered. -Consult to Case Management ordered. -Complicates all aspects of care. Patient will require inpatient admission for greater than 2 midnights for work- up and stabilizationof their condition Total amount of critical care time spent was 45 minutes not counting procedures performed. This time included high complexity decision making to assess and treat vital organ system failure in this patient who has impairment of one or more vital organ systems such that there is a high probability ofimminent or life threatening deterioration of the patient??s condition. Failure to initiate the above interventions on an urgent basis would likely result in sudden, clinically significant or life-threatening deterioration in the patient's condition. The patient required my highest level of preparedness to intervene and I personally spent this critical care time directly and personally managing the patient. This critical care time included obtaining a history; examining the patient; vitals monitoring including pulse oximetry; ordering and review of studies; arranging treatment and plan management; evaluation of patient's response to treatment; re-assessments; and any discussions with familymembers, other providers and ICU staff. Medical Decision Making: Patient presenting with aspiration PNA with sepsis and bronchial obstruction Independent historian, 3 daughters at bedside providing history Patient with 1 or more chronic illnesses with severe exacerbation or 1 acute or chronic illness or injury that poses a threat to life or bodily function Lab results above reviewed independently, AM labs ordered, independent interpretation of imaging asnoted above Diet: NPO with sips DVT prophylaxis: Heparin Code Status: Do Not Resuscitate DNI per 3 daughters Electronically signed by: Carmelita Spencer DO, 01/12/2025 at 12:45 AM documented in this encounter Procedure Notes * Donnie Jeffery MD - 01/14/2025 11:27 AM EDT Procedure: Bronchoscopy diagnostic and therapeutic Indication: Left lower lobe mucous plug Consent: Family Date: 01/14/2025 Time: 11:28 AM Medications: Versed and fentanyl Summary: Patient has acute hypoxic respiratory failure intubated mechanical ventilation has left lower lobe mucous plug with atelectasis. ETT: Distal end of ET tube in the upper part of the trachea, significant salivation required multiple aspiration. No bleeding, no endobronchial lesion, mucosa within normal Fab: Significant salivation required multiple aspiration, mucous plugs required isolation after that airways visualized, Sharp, mucosa within normal, no endobronchial lesion, no bleeding. Right lung: Bronchoscopy probe was then advanced into the right main bronchus, right upper lobe, right lower lobe airways. No endobronchial lesion, mucosa within normal, no bleeding. Some salivation required multiple aspiration. Left lung: Bronchoscopy was then advanced into the left lung airways, left main bronchus, left upper lobe, left lower lobe airways. Significant mucous plugs required multiple aspiration mucous plugs were yellowish in color. After that airways visualized, no endobronchial lesion, mucosa within normal, no bleeding. Findings/procedures: 1. Airway visualization. Multiple mucous plugs left main bronchus and left lower lobe required multiple aspiration. Mucosa within normal, no endobronchial lesion, no bleeding. 2. I therapeutically aspirated multiple mucous plugs from left main bronchus and left lower lobe. 3. BAL was taken from left lower lobe Patient tolerated procedure with no complications. documented in this encounter Consult Notes * Chanel Cobb MD - 01/15/2025 8:29 AM EDT Consults Acute kidney injury History of Present Illness: Margarita Stone is a 74 y.o. female with medical history of Chronic Respiratory Failure on 2L NC at baseline, COPD, CVA with slight residual on word finding, question of Dementia?, HTN/HLD and DM. 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 Near complete bronchial obstruction in the left mainstem, upper/lower segmental and subsegmental bronchi due to significant amount of debris with mediastinal and left axillary adenopathy. WBC 17.9, Cr 1.03. Patient was admitted on 01/12 and was maintained on IV antibiotics with IV doxycycline and Zosyn. Patient has been maintained on IV Lasix Echo on 01/13 was unremarkable Patient had a bronchoscopy on 01/14 showed very thick mucous plugs especially on the left lower lobe that was cleaned and removed, some mucous plugs in the right lower lobe that was cleaned and removed. Base creatinine 1.03 and today 2.23 Past Medical History: She has no past medical history on file. Chronic Respiratory Failure on 2L NC at baseline, COPD, CVA with slight residual on word finding, question of Dementia?, HTN/HLD and DM. Past Surgical History: She has no past surgical history on file. Bronchoscopy as above Social History: She has no history on file for tobacco use, alcohol use, and drug use. Family History: Her family history is not on file. Allergies: Patient has no allergy information on record. Medications: Medications Prior to Admission Medication Sig Dispense Refill Last Dose/Taking amLODIPine (NORVASC) 5 MG tablet Take 1 tablet (5 mg total) by mouth daily. aspirin 325 MG tablet Take 1 tablet (325 mg total) by mouth daily. atorvastatin (LIPITOR) 80 MG tablet Take 1 tablet (80 mg total) by mouth nightly. cholecalciferol (VITAMIN D3) 25 mcg (1,000 unit) tablet Take 1 tablet (1,000 Units total) by mouth daily. donepeziL (ARICEPT) 5 MG tablet Take 1 tablet (5 mg total) by mouth nightly. escitalopram (LEXAPRO) 10 MG tablet Take 1 tablet (10 mg total) by mouth daily. ferrous sulfate 325 (65 FE) MG tablet Take 1 tablet (325 mg total) by mouth nightly. finerenone (Kerendia) 10 mg tab Take 1 tablet by mouth daily. gjznoaorddl-bvqvvxysd-hvnzxppw (Trelegy Ellipta) 100-62.5-25 mcg dsdv Inhale 1 puff by mouth daily. furosemide (LASIX) 20 MG tablet Take 1 tablet (20 mg total) by mouth daily. gabapentin (NEURONTIN) 100 MG capsule Take 1 capsule (100 mg total) by mouth 2 (two) times daily. ipratropium-albuteroL (DUO-NEB) 0.5 mg-3 mg(2.5 mg base)/3 mL nebulizer solution Inhale 3 mLs by nebulization 4 (four) times daily. isosorbide mononitrate (IMDUR) 30 MG 24 hr tablet Take 1 tablet (30 mg total) by mouth every morning before breakfast. lisinopriL (ZESTRIL) 40 MG tablet Take 1 tablet (40 mg total) by mouth 2 (two) times daily. loratadine (CLARITIN) 10 mg tablet Take 1 tablet (10 mg total) by mouth daily. LORazepam (ATIVAN) 0.5 MG tablet Take 1 tablet (0.5 mg total) by mouth nightly. Max Daily Amount: 0.5 mg magnesium oxide (MAG-OX) 400 mg tablet Take 1 tablet (400 mg total) by mouth 2 (two) times daily. memantine (NAMENDA) 10 MG tablet Take 1 tablet (10 mg total) by mouth 2 (two) times daily. metFORMIN (GLUCOPHAGE) 1000 MG tablet Take 1 tablet (1,000 mg total) by mouth 2 (two) times daily with breakfast and dinner. metoprolol succinate (TOPROL-XL) 100 MG 24 hr tablet Take 1 tablet (100 mg total) by mouth daily. multivitamin with minerals tablet Take 1 tablet by mouth daily. pantoprazole (PROTONIX) 40 MG tablet Take 1 tablet (40 mg total) by mouth daily. Review of Systems Constitutional: Positive for activity change and appetite change. HENT: Positive for congestion. Respiratory: Positive for cough and shortness of breath. Cardiovascular: Negative. Gastrointestinal: Negative. Genitourinary: Negative. Musculoskeletal: Negative. Skin: Negative. Neurological: Positive for weakness. Psychiatric/Behavioral: Positive for decreased concentration. Vitals: Blood pressure 109/55, pulse 74, temperature 99.5 ??F (37.5 ??C), resp. rate 15, height 1.524 m (5'), weight 48.1 kg (106 lb 0.7 oz), SpO2 99%. Physical Exam Constitutional: Appearance: She is ill-appearing. HENT: Head: Normocephalic and atraumatic. Nose: Nose normal. Eyes: Pupils: Pupils are equal, round, and reactive to light. Cardiovascular: Rate and Rhythm: Normal rate and regular rhythm. Pulmonary: Effort: Pulmonary effort is normal. Breath sounds: Normal breath sounds. Abdominal: Palpations: Abdomen is soft. Psychiatric: Mood and Affect: Mood normal. Behavior: Behavior normal. Relevant Results: Results for orders placed or performed during the hospital encounter of 01/12/25 (from the past 24 hours) Respiratory Culture Status: None (Preliminary result) Collection Time: 01/14/25 11:33 AM Specimen: Lung, Left Lower Lobe; BAL Result Value Ref Range Result No growth Gram Stain Result Rare WBCs Gram Stain Result No organisms seen Culture Fungus W/AALIYAH Or Mayte Ink Status: None (Preliminary result) Collection Time: 01/14/25 11:33 AM Specimen: Lung, Left Lower Lobe; BAL Result Value Ref Range AALIYAH Prep No fungal elements seen Pneumonia PCR Panel Status: Normal Collection Time: 01/14/25 11:36 AM Specimen: Lung, Left Lower Lobe; BAL Result Value Ref Range ACINETOBACTER CALCOACETICUS-BAUMANNII COMPLEX Not detected Not detected ENTEROBACTER CLOACAE COMPLEX Not detected Not detected ESCHERICHIA COLI Not detected Not detected HAEMOPHILUS INFLUENZAE Not detected Not detected KLEBSIELLA AEROGENES Not detected Not detected KLEBSIELLA OXYTOCA Not detected Not detected KLEBSIELLA PNEUMONIAE GROUP Not detected Not detected MORAXELLA CATARRHALIS Not detected Not detected PROTEUS Not detected Not detected PSEUDOMONAS AERUGINOSA Not detected Not detected SERRATIA MARCESCENS Not detected Not detected STAPHYLOCOCCUS AUREUS Not detected Not detected STREPTOCOCCUS AGALACTIAE (GROUP B) Not detected Not detected STREPTOCOCCUS PNEUMONIAE Not detected Not detected STREPTOCOCCUS PYOGENES (GROUP A) Not detected Not detected CTX-M Non Applicable Not detected IMP Non Applicable Not detected KPC Non Applicable Not detected MEC A/C and MREJ Non Applicable Not detected NDM Non Applicable Not detected [id number]-48-[id number] Non Applicable Not detected VIM Non Applicable Not detected CHLAMYDIA PNEUMONIAE Not detected Not detected LEGIONELLA PNEUMOPHILA Not detected Not detected MYCOPLASMA PNEUMONIAE Not detected Not detected ADENOVIRUS Not detected Not detected CORONAVIRUS (NOT COVID19) Not detected Not detected HUMAN METAPNEUMOVIRUS Not detected Not detected HUMAN RHINOVIRUS/ENTEROVIRUS Not detected Not detected INFLUENZA A Not detected Not detected INFLUENZA B Not detected Not detected PARAINFLUENZA VIRUS Not detected Not detected RESPIRATORY SYNCYTIAL VIRUS Not detected Not detected Glucose, Nova Meter Status: Abnormal Collection Time: 01/14/25 12:39 PM Result Value Ref Range POC-GLUCOSE 172 (H) 70 - 110 mg/dL Wire Spooler [id number] Glucose, Nova Meter Status: Abnormal Collection Time: 01/14/25 5:45 PM Result Value Ref Range POC-GLUCOSE 240 (H) 70 - 110 mg/dL Wire Spooler [id number] ECG 12 lead Status: None (In process) Collection Time: 01/14/25 9:04 PM Result Value Ref Range SYSTOLIC BLOOD PRESSURE (MCT) 116 mmHg DIASTOLIC BLOOD PRESSURE (MCT) 58 mmHg VENTRICULAR RATE EKG/MIN 87 BPM ATRIAL RATE (MCT) 87 BPM ND Interval 166 ms QRS-INTERVAL (MSEC) 80 ms QT Interval 364 ms QTC Interval 438 ms P Chaplin 67 degrees R AXIS (MCT) 91 degrees T Wave Chaplin 143 degrees [place] Diagnosis Sinus rhythm with occasional premature ventricular complexes Rightward axis Cannot rule out Anterior infarct (cited on or before 12-JAN-2025) ST & T wave abnormality, consider inferolateral ischemia Abnormal ECG When compared with ECG of 13-JAN-2025 21:37, premature ventricular complexes are now present aberrant conduction is no longer present Questionable change in initial forces of Anterior leads ST elevation now present in Inferior leads Glucose, Nova Meter Status: Abnormal Collection Time: 01/15/25 12:22 AM Result Value Ref Range POC-GLUCOSE 158 (H) 70 - 110 mg/dL Wire Spooler [id number] Magnesium Status: Normal Collection Time: 01/15/25 3:37 AM Result Value Ref Range Magnesium 1.9 1.6 - 2.6 mg/dL CBC - Hemogram (SJ-BKR) Status: Abnormal Collection Time: 01/15/25 3:37 AM Result Value Ref Range WBC 12.7 (H) 4.0 - 10.0 K/??L RBC 3.07 (L) 3.93 - 5.22 M/??L Hemoglobin 9.1 (L) 11.2 - 15.7 GM/DL Hematocrit 28.1 (L) 34.1 - 44.9 % MCV 92 79 - 95 fL MCH 29.6 25.6 - 32.2 pg MCHC 32.4 32.2 - 35.5 GM/DL RDW 16.5 (H) 11.7 - 14.4 % Platelets 247 140 - 375 K/CU MM MPV 11.0 9.4 - 12.3 fL Basic Metabolic Panel Status: Abnormal Collection Time: 01/15/25 3:37 AM Result Value Ref Range Sodium 145 136 - 145 meq/L Potassium 3.6 3.4 - 5.1 meq/L CO2 28 22 - 29 meq/L Chloride 101 98 - 112 meq/L Glucose 95 82 - 115 mg/dL BUN 34.1 (H) 9.8 - 20.1 mg/dL Creatinine 2.23 (H) 0.50 - 1.20 mg/dL BUN/Creatinine 15 8 - 20 Calcium 8.7 8.4 - 10.2 mg/dL Anion Gap 20 (H) 4 - 12 eGFR (mL/min/1.73m2) 23 (L) >=60 mL/min/1.73m2 Osmolality Calc 296.2 mOsm/kg Glucose, Nova Meter Status: None Collection Time: 01/15/25 5:43 AM Result Value Ref Range POC-GLUCOSE 99 70 - 110 mg/dL Wire Spooler [id number] Assessment & Plan Principal Problem: Aspiration pneumonia (HCC) Active Problems: Bronchial obstruction 1. Stage II acute kidney injury likely multifactorial ischemic and toxic ATN secondary to underlying infection, contrast exposure, IV diuresis etc. cannot rule out associated AIN 2. Anemia likely multifactorial 3. Hypertension 4. Left lung pneumonia 5. Acute metabolic encephalopathy/history of CVA 6. Acute on chronic hypoxic respiratory failure 7. COPD exacerbation/history of recurrent aspiration pneumonia - Base kidney function was normal at presentation -Avoid nephrotoxins -Strict intake and output -Bladder scan as needed -Keep MAP above 65 and hemoglobin above 7 -Echocardiogram was unremarkable - Please DC IV loop diuretics, LR !@ 100 m l/hour x 20 hours -Albumin 25 IV bid x 4 doses -Avoid IV contrast unless absolutely necessary -Renally dose medications and antibiotics -Monitor kidney function electrolytes on daily basis -Will obtain urine lites -No need for BACK PAD INSPECTOR at present time -Thanks for consultation [facility] [address], [place], [address] Phone #[phone] Fax #[phone] High complex case CC time of 65 min Electronically signed by Chanel Cobb MD 01/15/2025 at 8:29 AM * Roxie Andino RD - 01/14/2025 10:[address] [facility] NUTRITION ASSESSMENT ADIME Nutrition Assessment The patient is a 74 y.o. female presenting from OSH for L mainstem bronchus occlusion, needing bronch. Present on Admission: Aspiration pneumonia (HCC) Acute resp failure L mainstem bronchus occlusion COPD exacerbation Sepsis Dementia Nutrition Evaluation Type: Initial Assessment Reason for Evaluation: +vent Subjective Comments: 01/14: Screened pt in ICU, +vent. Pt presenting for bronch d/t bronchial stem obstruction. Requiredemergent intubation yesterday d/t resp distress. Pt is sedated today, off pressors. S/p bronch thisam. Puljose MORGAN ok to place Corpak and start TF, RD to place orders. Past Medical/Surgical History: No past medical history on file. No past surgical history on file. Vitals and Basic Assessment: Vitals: Vitals: 01/14/25 0912 BP: 113/56 Pulse: Resp: Temp: SpO2: Oxygen: +vent Efren Scale: Efren Scale Score: 14 Last BM: Last BM Date: 01/13/25 GI Symptoms: +OGT Edema: none Skin: no breakdown Allergies: Not on File Scheduled Medications: Current Facility-Administered Medications Medication Dose Route Frequency Provider Last Rate Last Admin acetaminophen (TYLENOL) tablet 1,000 mg 1,000 mg oral Q6H PRN Ismaeel Thony, DO acetylcysteine (MUCOMYST) 200 mg/mL (20 %) nebulizer solution 1 mL 1 mL nebulization BID Donnie Jeffery MD 1 mL at 01/14/25 0744 [Held by provider] amLODIPine (NORVASC) tablet 5 mg 5 mg oral Daily Mark Flores MD 5 mg at 01/13/25 0859 aspirin chewable tablet 81 mg 81 mg oral Daily Donnie Jeffery MD 81 mg at 01/14/25 0910 atorvastatin (LIPITOR) tablet 80 mg 80 mg oral Every Night Ismaeel Thony, DO 80 mg at 01/13/252143 benzonatate (TESSALON) capsule 100 mg 100 mg oral TID PRN Ismaeel Thony, DO budesonide (PULMICORT) nebulizer suspension 0.5 mg 0.5 mg nebulization 2 times daily Ismaeel Thony, DO 0.5 mg at 01/14/25 07 dextrose 50% (D50W) injection 25 g 25 g intravenous PRN Ismaeel Thony, DO docusate sodium (COLACE) capsule 100 mg 100 mg oral BID PRN Ismaeel Thony, DO donepeziL (ARICEPT) tablet 10 mg 10 mg oral Every Night Ismaeel Thony, DO 10 mg at 01/13/252143 doxycycline (VIBRAMYCIN) 100 mg in sodium chloride 0.9 % (NS) IVANA IVPB 100 mg intravenous Q12H Ismaeel Thony, DO 100 mL/hr at 01/14/25 0906 100 mg at 01/14/25 09 escitalopram (LEXAPRO) tablet 10 mg 10 mg oral Daily Ismaeel Thony, DO 10 mg at 01/14/25 0925 fentaNYL in NS (SUBLIMAZE) 20 mcg/mL infusion 12.5-300 mcg/hr intravenous Titrated Donnie Jeffery MD 3.8 mL/hr at 01/14/25 0725 75 mcg/hr at 01/14/25 0725 ferrous sulfate EC tablet 325 mg 325 mg oral Daily Ismaeel Thony, DO 325 mg at 01/14/25 0912 [Held by provider] furosemide (LASIX) injection 20 mg 20 mg intravenous BID Ismaeel Thony, DO 20 mg at 01/14/25 09 gabapentin (NEURONTIN) capsule 100 mg 100 mg oral BID Ismaeel Thony, DO 100 mg at 01/14/25 0910 glucagon injection 1 mg 1 mg intraMUSCULAR PRN Ismaeel Thony, DO glucose chew tab 16 g 16 g oral PRN Ismaeel Thony, DO glycerin (laxative) suppository 1 suppository 1 suppository rectal Daily PRN Ismaeel Thony, DO guaiFENesin (ROBITUSSIN) 100 mg/5 mL syrup 300 mg 300 mg feeding tube Q6H COUNTS INCLUDE 234 BEDS AT THE [facility] Ana Grover MD 300 mg at 01/14/25 0524 heparin injection 5,000 Units 5,000 Units subcutaneous Q8H Ismaeel Thony, DO 5,000 Units at 01/14/25 0402 hydrALAZINE (APRESOLINE) injection 10 mg 10 mg intravenous Q6H PRN Aki Espinosa APRN 10 mg at 01/12/25 195 [Held by provider] hydroCHLOROthiazide (HYDRODIURIL) tablet 12.5 mg 12.5 mg oral Daily Mark Flores MD 12.5 mg at 01/14/25 0906 insulin regular (HUMULIN R,NOVOLIN R) injection 0-6 Units subcutaneous Q6H COUNTS INCLUDE 234 BEDS AT THE [facility] Thony, DO 2 Units at 01/12/25 1716 ipratropium-albuteroL (DUO-NEB) 0.5 mg-3 mg(2.5 mg base)/3 mL nebulizer solution 3 mL 3 mL nebulization Q6H WA Ismaeel Thony, DO 3 mL at 01/14/25 0744 [Held by provider] isosorbide mononitrate (IMDUR) 24 hr tablet 30 mg 30 mg oral QAM AC Ismaeel Thony, DO 30 mg at 01/13/25 0859 LORazepam (ATIVAN) tablet 0.5 mg 0.5 mg oral Every Night PRN Ismaeel Thony, DO magnesium sulfate IVPB 2 g in sterile water 50 mL (premix) 2 g intravenous Daily PRN Ismaeel Thony, DO magnesium sulfate IVPB 2 g in sterile water 50 mL (premix) 2 g intravenous BID PRN Ismaeel Thony,DO IVPB Stopped at 01/13/25 1125 melatonin tablet 3 mg 3 mg oral Every Night Ismaeel Thony, DO 3 mg at 01/13/25 2144 memantine (NAMENDA) tablet 5 mg 5 mg oral BID Ismaeel Thony, DO 5 mg at 01/14/25 0911 methylPREDNISolone sodium succinate (PF) (Solu-MEDROL) injection 40 mg 40 mg intravenous Daily Ismaeel Thony, DO 40 mg at 01/14/25 0906 metoprolol tartrate (LOPRESSOR) tablet 25 mg 25 mg oral BID Donnie Jeffery MD 25 mg at 01/14/25 0925 midazolam (VERSED) injection 6 mg 6 mg intravenous Once Donnie Jeffery MD pantoprazole (PROTONIX) injection 40 mg 40 mg intravenous QPM Ismaeel Thony, DO 40 mg at 652 phenylephrine (JORGE A-SYNEPHRINE) 40 mg in sodium chloride 0.9 % (NS) 250 mL infusion 5-360 mcg/min intravenous Titrated Donnie Jeffery MD Stopped at 01/13/25 2343 piperacillin-tazobactam (ZOSYN) 2.25 g in dextrose 5 % (D5W) 50 mL IVPB 2.25 g intravenous Q6H Donnie Jeffery MD IVPB Stopped at 01/14/25 0719 polyethylene glycol (GLYCOLAX) packet 17 g 17 g oral Daily PRN Ismaeel Thony, DO potassium bicarbonate (EFFER-K) disintegrating tablet 40 mEq 40 mEq oral Q6H PRN Donnie Jeffery MD 40 mEq at 01/14/25 0524 potassium chloride (KLOR-CON) ER tablet 40 mEq 40 mEq oral 4x Daily PRN Ismaeel Thony, DO promethazine (PHENERGAN) 12.5 mg in sodium chloride 0.9 % (NS) 50 mL IVPB (Immediate Use Only) 12.5mg intravenous Q6H PRN Ismaeel Thony, DO propofoL (DIPRIVAN) injection 1-65 mcg/kg/min (Adjusted) intravenous Titrated Donnie Jeffery MD 2.8mL/hr at 01/13/25 1820 10 mcg/kg/min at 01/13/25 1820 rocuronium (ZEMURON) injection 50 mg 50 mg intravenous Once Donnie Jeffery MD sodium chloride flush 10 mL 10 mL intravenous PRN Ismaeel Thony, DO Drips: fentanyl, propofol @ 2.8 ml/hr (74 kcal) Recent Labs 01/12/25 0205 01/12/25 0209 01/12/25 0330 01/12/25 0552 01/12/25 1949 01/13/25 0004 01/13/25 0409 01/13/25 0612 01/13/25 0615 01/13/25 1157 01/13/25 1341 01/13/25 1810 01/14/25 0034 01/14/25 0347 01/14/25 0353 01/14/25 0524 NA 144 -- 143 -- 148* -- -- -- 148* -- -- -- -- -- 146* -- K 3.3* -- 3.7 -- 4.1 -- -- -- 3.3* -- 4.3 -- -- -- 2.9* -- CO2 26 -- 29 -- 29 -- -- -- 34* -- -- -- -- -- 33* -- BUN 24.5* -- 25.4* -- 22.1* -- -- -- 21.8* -- -- -- -- -- 25.9* -- CREATININE 1.03 -- 1.04 -- 1.06 -- -- -- 1.19 -- -- -- -- -- 1.56* -- GLUCOSE 226* < > 216* < > 168* < > -- < > 116* < > -- < > 149* -- 130* 140* CALCIUM 8.8 -- 9.0 -- 9.2 -- -- -- 9.2 -- -- -- -- -- 8.8 -- PROT -- -- 6.5 -- -- -- -- -- 5.9* -- -- -- -- -- 5.7* -- ALBUMIN -- -- 2.8* -- -- -- -- -- 2.5* -- -- -- -- -- 2.3* -- BILITOT -- -- 0.2* -- -- -- -- -- 0.3 -- -- -- -- -- 0.2* -- ALKPHOS -- -- 98 -- -- -- -- -- 84 -- -- -- -- -- 81 -- AST -- -- 27 -- -- -- -- -- 19 -- -- -- -- -- 18 -- ALT -- -- 16 -- -- -- -- -- 13 -- -- -- -- -- 10 -- HGB 10.8* -- -- -- -- -- 10.8* -- -- -- -- -- -- 9.9* -- -- HCT 33.3* -- -- -- -- -- 32.3* -- -- -- -- -- -- 30.2* -- -- < > = values in this interval not displayed. WBC 15.6 No results found for: HGBA1C Anthropometrics: Ht: Height: 152.4 cm (5') Wt: Weight: 48.1 kg (106 lb 0.7 oz) Wt hx: 117# (11/19/24) BMI: Body mass index is 20.71 kg/m??. Wt Change: loss % Wt Change: 9.4% x 2 months (considered significant) UBW: UTO IBW: 100# Percent IBW: 106% Estimated Needs: 0808-2251 kcal (25-30 kcal/kg) 58 gm pro (1.2 gm/kg) Current Nutrition Intake: Diet Orders: Diet Order(s): NPO diet Supplements: Diet Supplements: None Intake: NPO Enteral Nutrition? no, plans for Corpak and TF Diet Experience and Nutrition History: Previous Nutrition Education: Unknown Diet Education Provided: not appropriate Nutrition Focused Physical Exam: Date performed: 01/14 - unable to assess Physical signs of fat or muscle wasting with severity: UTO Energy intake hx: UTO Wt loss: ? 9.4% wt loss x 2 months Assessment of Malnutrition: Unable to complete malnutrition evaluation at this time. Nutrition Diagnoses: Problem #1: Inadequate Oral Intake Etiology: resp status, +vent Signs/Symptoms: NPO, need for TF Status: New Nutrition Interventions and Recommendations: Collaboration with other providers and Enteral nutrition Nutrition Monitoring and Goals: - Once Corpak placed, recommend Jevity 1.5 @ 20 ml/hr, advancing by 10 ml q 12 hrs to goal @ 40 ml/hr (1320 kcal, 56 gm pro). FW per MD -- requesting 30 ml/hr Goal: meet >80% of est needs (goal progressing) - Obtain wt 2x weekly Goal: avoid involuntary significant wt change - Monitor elytes, recommend replacing prn. Pt at risk for RFS Goal: wnls Nutrition Risk Level: High Risk Roxie Andino RD * Gabe Davis APRN - 01/12/2025 2:48 AM EDTAssociated Order(s): Inpatient consult to Pulmonology Inpatient consult to Pulmonology Consult performed by: Gabe Davis APRN Consult ordered by: Carmelita Spencer DO PULMONARY AND CRITICAL CARE Consult Note Date of Service: 01/12/2025 Reason for Consult: For critical care management. Referring: MD Thony HPI: This is a 74 y.o. year old female with past medical history of Chronic Respiratory Failure on 2L NCat baseline, COPD, CVA with slight residual on word finding, question of Dementia?, HTN/HLD and DM.She presented to [facility] due to increasing shortness of breath and cough for 1-2 days.Family reports she has had some recurrent pneumonia and issues with aspiration recently. CT chest from outside hospital with near complete pneumonic infiltration of left lower lobe, mild patchy areas of pneumonia in the right lung. Near complete bronchial obstruction in the left mainstem, upper/lower se gmental and subsegmental bronchi due to significant amount of debris with mediastinal and left axillary adenopathy. WBC 17.9, Cr 1.03. Pulmonary has been consulted for ICU management and need for bronchoscopy. PAST MEDICAL HISTORY: No past medical history on file. PAST SURGICAL HISTORY: No past surgical history on file. No past surgical history on file. Allergies: Not on File SOCIAL HISTORY: FAMILY HISTORY: family history is not on file. Review of Systems Constitutional: Positive for malaise/fatigue. HENT: Negative. Eyes: Negative. Respiratory: Positive for cough, shortness of breath and wheezing. Gastrointestinal: Negative. Genitourinary: Negative. Musculoskeletal: Positive for joint pain. Neurological: Positive for weakness. Psychiatric/Behavioral: Negative. Vital Signs Temp: [98.2 ??F (36.8 ??C)] 98.2 ??F (36.8 ??C) Pulse: [95] 95 Resp: [21-22] 21 BP: (142)/(60) 142/60 FiO2 (%): [45 %] 45 % Current: Temp: 98.2 ??F (36.8 ??C) Pulse: 95 Resp: 21 BP: (!) 142/60 SpO2: 99 % 24 Hour: BP Min: 142/60 Max: 142/60 Temp Min: 98.2 ??F (36.8 ??C) Max: 98.2 ??F (36.8 ??C) Pulse Min: 95 Max: 95 Resp Min: 21 Max: 22 SpO2 Min: 98 % Max: 99 % Weight Min: 48.1 kg (106 lb 0.7 oz) Max: 48.1 kg (106 lb 0.7 oz) Intake/Output: No intake/output data recorded. Physical Exam Constitutional: Appearance: She is ill-appearing. HENT: Head: Normocephalic. Mouth/Throat: Mouth: Mucous membranes are dry. Eyes: Pupils: Pupils are equal, round, and reactive to light. Cardiovascular: Rate and Rhythm: Normal rate and regular rhythm. Pulmonary: Breath sounds: Rhonchi present. Comments: Diminshed left lung breath sounds, crackles noted Abdominal: General: Bowel sounds are normal. Musculoskeletal: General: No deformity. Skin: Capillary Refill: Capillary refill takes less than 2 seconds. Coloration: Skin is pale. Neurological: Mental Status: Mental status is at baseline. She is disoriented. Psychiatric: Mood and Affect: Mood normal. Intake/Output: No intake/output data recorded. LABS Results for orders placed or performed during the hospital encounter of 01/12/25 (from the past 24 hours) Magnesium Status: Normal Collection Time: 01/12/25 2:05 AM Result Value Ref Range Magnesium 1.9 1.6 - 2.6 mg/dL CBC - Hemogram (SJ-BKR) Status: Abnormal Collection Time: 01/12/25 2:05 AM Result Value Ref Range WBC 17.9 (H) 4.0 - 10.0 K/??L RBC 3.68 (L) 3.93 - 5.22 M/??L Hemoglobin 10.8 (L) 11.2 - 15.7 GM/DL Hematocrit 33.3 (L) 34.1 - 44.9 % MCV 91 79 - 95 fL MCH 29.3 25.6 - 32.2 pg MCHC 32.4 32.2 - 35.5 GM/DL RDW 15.9 (H) 11.7 - 14.4 % Platelets 276 140 - 375 K/CU MM MPV 10.7 9.4 - 12.3 fL Glucose, Nova Meter Status: Abnormal Collection Time: 01/12/25 2:09 AM Result Value Ref Range POC-GLUCOSE 217 (H) 70 - 110 mg/dL Wire Spooler [id number] No results found for: PT , INR , PTT CHEM7: No results found for: GLU , NA , K , CL , CO2 , BUN , CREATININE , EGFR , CALCIUM No results found for: ALB , AST , ALT No results for input(s): POCGLU in the last 72 hours. No results for input(s): POCPH , POCPCO2 , POCPO2 , POCABG in the last 72 hours. Invalid input(s): POCSAT , POCART , ARTPOC Microbiology: Microbiology Results (last 7 days) Procedure Component Value Units Date/Time Pneumonia PCR Panel [[id number]] Order Status: Sent Specimen: Sputum from Expectorated Respiratory Culture [[id number]] Order Status: Sent Specimen: Sputum from Expectorated MRSA Screen [[id number]] Order Status: Sent Specimen: Nasal from Nares Strep pneumoniae urine antigen [[id number]] Order Status: Sent Specimen: Urine, Unspecified Source Respiratory Panel [[id number]] Order Status: Sent Specimen: Nasopharyngeal Swab Pneumonia PCR Panel w/Respiratory Culture [[id number]] Order Status: Sent Specimen: Sputum from Expectorated Narrative: The following orders were created for panel order Pneumonia PCR Panel w/Respiratory Culture. Procedure Abnormality Status --------- ------ Pneumonia PCR Panel[[id number]] Respiratory Culture[[id number]] Please view results for these tests on the individual orders. Radiology Results (last day) No results found for the last 24 hours. No valid procedures specified. ASSESSMENT: Pulmonary Acute on Chronic Hypoxemic Respiratory Failure -CT chest from outside hospital with near complete pneumonic infiltration of left lower lobe, mild patchy areas of pneumonia in the right lung. Near complete bronchial obstruction in the left mainstem, upper/lower segmental and subsegmental bronchi due to significant amount of debris with mediastinal and left axillary adenopathy Recurrent pneumonia due to aspiration. COPD with exacerbation Former tobacco abuse Neurology: Dementia? On namenda and Aricept H/O CVA with some word finding issues Cardiology: Hypertension HLD Infectious disease: Leukocytosis Left lung pneumonia Nephrology: Stable bun/Cr CKD 3a Gastroenterology: Dysphagia likely? Recurrent aspiration pneumonia GERD Endocrine: DM Hematology: Anemia; Mild General: DNR/DNI Dr. Amaro PLAN: Supplemental O2 for O2 sats <92% CXR reviewed CT chest reviewed from outlying May need Bronchoscopy Mucinex Pulmicort Duonebs Solumedrol 40mg Daily [place] Cx Resp panel Antbx Doxy, Zosyn Glycemic control for BG 110-140 Speech consult for aspiration Protonix/Heparin SC Gabe Davis APRN CCT 30 minutes Cosigned by Tawnya Amaro MD at 01/16/2025 10:28 PM EDT documented in this encounter Miscellaneous Notes * Plan of Care - Faby Amin RN - 01/23/2025 8:15 AM EDT Problem: Knowledge Deficit Goal: Patient/family/caregiver demonstrates understanding of disease process, treatment plan, medications, and discharge instructions Description: Complete learning assessment and assess knowledge base. Outcome: Progressing Problem: Potential for Falls Goal: Patient will remain free of falls Description: Assess and monitor vitals signs, neurological status including level of consciousness and orientation. Reassess fall risk per hospital policy. Ensure arm band on, uncluttered walking paths in room, adequate room lighting, call light and overbed table within reach, bed in low position, wheels locked, side rails up per policy, and non-skid footwear provided. Outcome: Progressing Problem: Compromised Skin Integrity Goal: LTG - Patient will be free from infection Outcome: Progressing Goal: LTG - Patient will maintain/improve skin integrity through proper skin care techniques Outcome: Progressing Goal: LTG - Patient will demonstrate appropriate pressure relief techniques Outcome: Progressing Goal: LTG - Patient will demonstrate appropriate skin care techniques Outcome: Progressing Goal: LTG - Patient will be free from infection Outcome: Progressing Goal: STG - Patient demonstrates skin care/treatment/dressing change Outcome: Progressing Goal: STG - Patient will maintain good skin integrity Outcome: Progressing Goal: STG - Patient exhibits signs of wound healing. Outcome: Progressing Goal: STG - Patient demonstrates pressure reduction techniques Outcome: Progressing Goal: STG - Patient demonstrates preventative skin care measures Outcome: Progressing Problem: RESPIRATORY Goal: Achieves optimal ventilation and oxygenation Outcome: Progressing Problem: Swallowing Goal: LTG - Patient will tolerate the least restrictive diet consistency to allow for safe consumption of daily meals Outcome: Progressing Problem: Potential for Interruption to Patient Safety R/T Use of Restraints Goal: Free from restraint events Outcome: Progressing Goal: Care Plan Reviewed Once Every Shift Description: All components of the non-violent/non-self destructive restraint care plan must be reviewed and documented once every shift. Outcome: Progressing * Plan of Care - Dolores Pizarro RN - 01/23/2025 2:29 AM EDT Problem: Knowledge Deficit Goal: Patient/family/caregiver demonstrates understanding of disease process, treatment plan, medications, and discharge instructions Description: Complete learning assessment and assess knowledge base. Outcome: Progressing Problem: Potential for Falls Goal: Patient will remain free of falls Description: Assess and monitor vitals signs, neurological status including level of consciousness and orientation. Reassess fall risk per hospital policy. Ensure arm band on, uncluttered walking paths in room, adequate room lighting, call light and overbed table within reach, bed in low position, wheels locked, side rails up per policy, and non-skid footwear provided. Outcome: Progressing Problem: Compromised Skin Integrity Goal: LTG - Patient will be free from infection Outcome: Progressing Goal: LTG - Patient will maintain/improve skin integrity through proper skin care techniques Outcome: Progressing Goal: LTG - Patient will demonstrate appropriate pressure relief techniques Outcome: Progressing Goal: LTG - Patient will demonstrate appropriate skin care techniques Outcome: Progressing Goal: LTG - Patient will be free from infection Outcome: Progressing Goal: STG - Patient demonstrates skin care/treatment/dressing change Outcome: Progressing Goal: STG - Patient will maintain good skin integrity Outcome: Progressing Goal: STG - Patient exhibits signs of wound healing. Outcome: Progressing Goal: STG - Patient demonstrates pressure reduction techniques Outcome: Progressing Goal: STG - Patient demonstrates preventative skin care measures Outcome: Progressing Problem: RESPIRATORY Goal: Achieves optimal ventilation and oxygenation Outcome: Progressing Problem: Swallowing Goal: LTG - Patient will tolerate the least restrictive diet consistency to allow for safe consumption of daily meals Outcome: Progressing Problem: Potential for Interruption to Patient Safety R/T Use of Restraints Goal: Free from restraint events Outcome: Progressing Goal: Care Plan Reviewed Once Every Shift Description: All components of the non-violent/non-self destructive restraint care plan must be reviewed and documented once every shift. Outcome: Progressing * Plan of Care - Obdulia Reyes CCC-GAS GOLF CART REPAIRER - 01/22/2025 11:24 AM EDT Problem: Swallowing Goal: LTG - Patient will tolerate the least restrictive diet consistency to allow for safe consumption of daily meals Outcome: Progressing * Plan of Care - Faby Amin RN - 01/22/2025 10:54 AM EDT Problem: Knowledge Deficit Goal: Patient/family/caregiver demonstrates understanding of disease process, treatment plan, medications, and discharge instructions Description: Complete learning assessment and assess knowledge base. Outcome: Progressing Problem: Potential for Falls Goal: Patient will remain free of falls Description: Assess and monitor vitals signs, neurological status including level of consciousness and orientation. Reassess fall risk per hospital policy. Ensure arm band on, uncluttered walking paths in room, adequate room lighting, call light and overbed table within reach, bed in low position, wheels locked, side rails up per policy, and non-skid footwear provided. Outcome: Progressing Problem: Compromised Skin Integrity Goal: LTG - Patient will be free from infection Outcome: Progressing Goal: LTG - Patient will maintain/improve skin integrity through proper skin care techniques Outcome: Progressing Goal: LTG - Patient will demonstrate appropriate pressure relief techniques Outcome: Progressing Goal: LTG - Patient will demonstrate appropriate skin care techniques Outcome: Progressing Goal: LTG - Patient will be free from infection Outcome: Progressing Goal: STG - Patient demonstrates skin care/treatment/dressing change Outcome: Progressing Goal: STG - Patient will maintain good skin integrity Outcome: Progressing Goal: STG - Patient exhibits signs of wound healing. Outcome: Progressing Goal: STG - Patient demonstrates pressure reduction techniques Outcome: Progressing Goal: STG - Patient demonstrates preventative skin care measures Outcome: Progressing Problem: RESPIRATORY Goal: Achieves optimal ventilation and oxygenation Outcome: Progressing Problem: Swallowing Goal: LTG - Patient will tolerate the least restrictive diet consistency to allow for safe consumption of daily meals Outcome: Progressing Problem: Potential for Interruption to Patient Safety R/T Use of Restraints Goal: Free from restraint events Outcome: Progressing Goal: Care Plan Reviewed Once Every Shift Description: All components of the non-violent/non-self destructive restraint care plan must be reviewed and documented once every shift. Outcome: Progressing * Documentation Clarification - Krystian Bhakta MD - 01/22/2025 9:32 AM EDT CLINICAL DOCUMENTATION CLARIFICATION FORM: Dear Provider: Dr. Andrew Date / Time: 01/21/2025 10:04 AM Please exercise your independent, professional judgment in responding to the clarification form. Clinical indicators are provided on the bottom of this form for your review Please check appropriate box(es): [] Severe sepsis [x] Severe Sepsis with Septic Shock [] Other diagnosis: (please enter/write your response) [] Unable to determine For continuity of documentation, please document conditions throughout progress notes and dischargesummary. Thank You. To be completed by CDI/Coding staff for Provider review: Clinical Indicators - Signs / Symptoms / Labs Results and Location in Medical Record Sepsis 01/12 H&P: Sepsis Present at OSH 04/28 PNA Elevated White blood cell count Lab Results: 01/12 WBC 17.9, 01/14 WBC 15.6 Risk Factors Results and Location in Medical Record Pneumonia 01/12 Consult Note: Mild patchy areas of pneumonia in the right lung Aspiration 01/14 Consult note: Concern for aspiration pneumonia Treatments Results and Location in Medical Record Antibiotics 01/13: Zosyn IV Vasopressors 01/13: Phenylephrine Infusion CDS/Drafting Detailer Signature: Gale Templeton Phone #: [phone] Date/Time: 01/21/2025 10:04 AM This is a permanent part of the Medical Record [facility] Reviewed/Updated: 09/2024 * Plan of Care - Dolores Pizarro RN - 01/22/2025 3:44 AM EDT Problem: Knowledge Deficit Goal: Patient/family/caregiver demonstrates understanding of disease process, treatment plan, medications, and discharge instructions Description: Complete learning assessment and assess knowledge base. Outcome: Progressing Problem: Potential for Falls Goal: Patient will remain free of falls Description: Assess and monitor vitals signs, neurological status including level of consciousness and orientation. Reassess fall risk per hospital policy. Ensure arm band on, uncluttered walking paths in room, adequate room lighting, call light and overbed table within reach, bed in low position, wheels locked, side rails up per policy, and non-skid footwear provided. Outcome: Progressing Problem: Compromised Skin Integrity Goal: LTG - Patient will be free from infection Outcome: Progressing Goal: LTG - Patient will maintain/improve skin integrity through proper skin care techniques Outcome: Progressing Goal: LTG - Patient will demonstrate appropriate pressure relief techniques Outcome: Progressing Goal: LTG - Patient will demonstrate appropriate skin care techniques Outcome: Progressing Goal: LTG - Patient will be free from infection Outcome: Progressing Goal: STG - Patient demonstrates skin care/treatment/dressing change Outcome: Progressing Goal: STG - Patient will maintain good skin integrity Outcome: Progressing Goal: STG - Patient exhibits signs of wound healing. Outcome: Progressing Goal: STG - Patient demonstrates pressure reduction techniques Outcome: Progressing Goal: STG - Patient demonstrates preventative skin care measures Outcome: Progressing Problem: RESPIRATORY Goal: Achieves optimal ventilation and oxygenation Outcome: Progressing Problem: Swallowing Goal: LTG - Patient will tolerate the least restrictive diet consistency to allow for safe consumption of daily meals Outcome: Progressing Problem: Potential for Interruption to Patient Safety R/T Use of Restraints Goal: Free from restraint events Outcome: Progressing Goal: Care Plan Reviewed Once Every Shift Description: All components of the non-violent/non-self destructive restraint care plan must be reviewed and documented once every shift. Outcome: Progressing * Plan of Care - Obdulia Reyes [employer] - 01/21/2025 9:08 AM EDT Problem: Swallowing Goal: LTG - Patient will tolerate the least restrictive diet consistency to allow for safe consumption of daily meals Outcome: Progressing * Plan of Care - Bárbara Brunner RN - 01/20/2025 1:13 AM EDT Problem: Knowledge Deficit Goal: Patient/family/caregiver demonstrates understanding of disease process, treatment plan, medications, and discharge instructions Description: Complete learning assessment and assess knowledge base. Outcome: Progressing Problem: Potential for Falls Goal: Patient will remain free of falls Description: Assess and monitor vitals signs, neurological status including level of consciousness and orientation. Reassess fall risk per hospital policy. Ensure arm band on, uncluttered walking paths in room, adequate room lighting, call light and overbed table within reach, bed in low position, wheels locked, side rails up per policy, and non-skid footwear provided. Outcome: Progressing Problem: Compromised Skin Integrity Goal: LTG - Patient will be free from infection Outcome: Progressing Goal: LTG - Patient will maintain/improve skin integrity through proper skin care techniques Outcome: Progressing Goal: LTG - Patient will demonstrate appropriate pressure relief techniques Outcome: Progressing Goal: LTG - Patient will demonstrate appropriate skin care techniques Outcome: Progressing Goal: LTG - Patient will be free from infection Outcome: Progressing Goal: STG - Patient demonstrates skin care/treatment/dressing change Outcome: Progressing Goal: STG - Patient will maintain good skin integrity Outcome: Progressing Goal: STG - Patient exhibits signs of wound healing. Outcome: Progressing Goal: STG - Patient demonstrates pressure reduction techniques Outcome: Progressing Goal: STG - Patient demonstrates preventative skin care measures Outcome: Progressing Problem: RESPIRATORY Goal: Achieves optimal ventilation and oxygenation Outcome: Progressing Problem: Swallowing Goal: LTG - Patient will tolerate the least restrictive diet consistency to allow for safe consumption of daily meals Outcome: Progressing Problem: Potential for Interruption to Patient Safety R/T Use of Restraints Goal: Free from restraint events Outcome: Progressing Goal: Care Plan Reviewed Once Every Shift Description: All components of the non-violent/non-self destructive restraint care plan must be reviewed and documented once every shift. Outcome: Progressing * Plan of Care - Renée Sanchez RN - 01/19/2025 5:13 PM EDT Problem: Knowledge Deficit Goal: Patient/family/caregiver demonstrates understanding of disease process, treatment plan, medications, and discharge instructions Description: Complete learning assessment and assess knowledge base. Outcome: Progressing Problem: Potential for Falls Goal: Patient will remain free of falls Description: Assess and monitor vitals signs, neurological status including level of consciousness and orientation. Reassess fall risk per hospital policy. Ensure arm band on, uncluttered walking paths in room, adequate room lighting, call light and overbed table within reach, bed in low position, wheels locked, side rails up per policy, and non-skid footwear provided. Outcome: Progressing Problem: Compromised Skin Integrity Goal: LTG - Patient will be free from infection Outcome: Progressing Goal: LTG - Patient will maintain/improve skin integrity through proper skin care techniques Outcome: Progressing Goal: LTG - Patient will demonstrate appropriate pressure relief techniques Outcome: Progressing Goal: LTG - Patient will demonstrate appropriate skin care techniques Outcome: Progressing Goal: LTG - Patient will be free from infection Outcome: Progressing Goal: STG - Patient demonstrates skin care/treatment/dressing change Outcome: Progressing Goal: STG - Patient will maintain good skin integrity Outcome: Progressing Goal: STG - Patient exhibits signs of wound healing. Outcome: Progressing Goal: STG - Patient demonstrates pressure reduction techniques Outcome: Progressing Goal: STG - Patient demonstrates preventative skin care measures Outcome: Progressing Problem: RESPIRATORY Goal: Achieves optimal ventilation and oxygenation Outcome: Progressing Problem: Swallowing Goal: LTG - Patient will tolerate the least restrictive diet consistency to allow for safe consumption of daily meals Outcome: Progressing Problem: Potential for Interruption to Patient Safety R/T Use of Restraints Goal: Free from restraint events Outcome: Progressing Goal: Care Plan Reviewed Once Every Shift Description: All components of the non-violent/non-self destructive restraint care plan must be reviewed and documented once every shift. Outcome: Progressing * Plan of Care - Shanice Stewart RN - 01/19/2025 2:25 AM EDT Problem: Knowledge Deficit Goal: Patient/family/caregiver demonstrates understanding of disease process, treatment plan, medications, and discharge instructions Description: Complete learning assessment and assess knowledge base. Outcome: Progressing Problem: Potential for Falls Goal: Patient will remain free of falls Description: Assess and monitor vitals signs, neurological status including level of consciousness and orientation. Reassess fall risk per hospital policy. Ensure arm band on, uncluttered walking paths in room, adequate room lighting, call light and overbed table within reach, bed in low position, wheels locked, side rails up per policy, and non-skid footwear provided. Outcome: Progressing Problem: Compromised Skin Integrity Goal: LTG - Patient will be free from infection Outcome: Progressing Goal: LTG - Patient will maintain/improve skin integrity through proper skin care techniques Outcome: Progressing Goal: LTG - Patient will demonstrate appropriate pressure relief techniques Outcome: Progressing Goal: LTG - Patient will demonstrate appropriate skin care techniques Outcome: Progressing Goal: LTG - Patient will be free from infection Outcome: Progressing Goal: STG - Patient demonstrates skin care/treatment/dressing change Outcome: Progressing Goal: STG - Patient will maintain good skin integrity Outcome: Progressing Goal: STG - Patient exhibits signs of wound healing. Outcome: Progressing Goal: STG - Patient demonstrates pressure reduction techniques Outcome: Progressing Goal: STG - Patient demonstrates preventative skin care measures Outcome: Progressing Problem: RESPIRATORY Goal: Achieves optimal ventilation and oxygenation Outcome: Progressing Problem: Swallowing Goal: LTG - Patient will tolerate the least restrictive diet consistency to allow for safe consumption of daily meals Outcome: Progressing Problem: Potential for Interruption to Patient Safety R/T Use of Restraints Goal: Free from restraint events Outcome: Progressing Goal: Care Plan Reviewed Once Every Shift Description: All components of the non-violent/non-self destructive restraint care plan must be reviewed and documented once every shift. Outcome: Progressing * Plan of Care - Renée Sanchez RN - 01/18/2025 7:31 PM EDT Problem: Knowledge Deficit Goal: Patient/family/caregiver demonstrates understanding of disease process, treatment plan, medications, and discharge instructions Description: Complete learning assessment and assess knowledge base. Outcome: Progressing Problem: Potential for Falls Goal: Patient will remain free of falls Description: Assess and monitor vitals signs, neurological status including level of consciousness and orientation. Reassess fall risk per hospital policy. Ensure arm band on, uncluttered walking paths in room, adequate room lighting, call light and overbed table within reach, bed in low position, wheels locked, side rails up per policy, and non-skid footwear provided. Outcome: Progressing Problem: Compromised Skin Integrity Goal: LTG - Patient will be free from infection Outcome: Progressing Goal: LTG - Patient will maintain/improve skin integrity through proper skin care techniques Outcome: Progressing Goal: LTG - Patient will demonstrate appropriate pressure relief techniques Outcome: Progressing Goal: LTG - Patient will demonstrate appropriate skin care techniques Outcome: Progressing Goal: LTG - Patient will be free from infection Outcome: Progressing Goal: STG - Patient demonstrates skin care/treatment/dressing change Outcome: Progressing Goal: STG - Patient will maintain good skin integrity Outcome: Progressing Goal: STG - Patient exhibits signs of wound healing. Outcome: Progressing Goal: STG - Patient demonstrates pressure reduction techniques Outcome: Progressing Goal: STG - Patient demonstrates preventative skin care measures Outcome: Progressing Problem: RESPIRATORY Goal: Achieves optimal ventilation and oxygenation Outcome: Progressing Problem: Swallowing Goal: LTG - Patient will tolerate the least restrictive diet consistency to allow for safe consumption of daily meals Outcome: Progressing Problem: Potential for Interruption to Patient Safety R/T Use of Restraints Goal: Free from restraint events Outcome: Progressing Goal: Care Plan Reviewed Once Every Shift Description: All components of the non-violent/non-self destructive restraint care plan must be reviewed and documented once every shift. Outcome: Progressing * Plan of Care - Marilee Church RN - 01/17/2025 11:47 PM EDT Problem: Knowledge Deficit Goal: Patient/family/caregiver demonstrates understanding of disease process, treatment plan, medications, and discharge instructions Description: Complete learning assessment and assess knowledge base. Outcome: Progressing Problem: Potential for Falls Goal: Patient will remain free of falls Description: Assess and monitor vitals signs, neurological status including level of consciousness and orientation. Reassess fall risk per hospital policy. Ensure arm band on, uncluttered walking paths in room, adequate room lighting, call light and overbed table within reach, bed in low position, wheels locked, side rails up per policy, and non-skid footwear provided. Outcome: Progressing Problem: Compromised Skin Integrity Goal: LTG - Patient will be free from infection Outcome: Progressing Goal: LTG - Patient will maintain/improve skin integrity through proper skin care techniques Outcome: Progressing Goal: LTG - Patient will demonstrate appropriate pressure relief techniques Outcome: Progressing Goal: LTG - Patient will demonstrate appropriate skin care techniques Outcome: Progressing Goal: LTG - Patient will be free from infection Outcome: Progressing Goal: STG - Patient demonstrates skin care/treatment/dressing change Outcome: Progressing Goal: STG - Patient will maintain good skin integrity Outcome: Progressing Goal: STG - Patient exhibits signs of wound healing. Outcome: Progressing Goal: STG - Patient demonstrates pressure reduction techniques Outcome: Progressing Goal: STG - Patient demonstrates preventative skin care measures Outcome: Progressing Problem: RESPIRATORY Goal: Achieves optimal ventilation and oxygenation Outcome: Progressing Problem: Swallowing Goal: LTG - Patient will tolerate the least restrictive diet consistency to allow for safe consumption of daily meals Outcome: Progressing Problem: Potential for Interruption to Patient Safety R/T Use of Restraints Goal: Free from restraint events Outcome: Progressing Goal: Care Plan Reviewed Once Every Shift Description: All components of the non-violent/non-self destructive restraint care plan must be reviewed and documented once every shift. Outcome: Progressing * Plan of Care - Sana Avalos RN - 01/17/2025 11:17 AM EDT Problem: Knowledge Deficit Goal: Patient/family/caregiver demonstrates understanding of disease process, treatment plan, medications, and discharge instructions Description: Complete learning assessment and assess knowledge base. Outcome: Progressing Problem: Potential for Falls Goal: Patient will remain free of falls Description: Assess and monitor vitals signs, neurological status including level of consciousness and orientation. Reassess fall risk per hospital policy. Ensure arm band on, uncluttered walking paths in room, adequate room lighting, call light and overbed table within reach, bed in low position, wheels locked, side rails up per policy, and non-skid footwear provided. Outcome: Progressing Problem: Compromised Skin Integrity Goal: LTG - Patient will be free from infection Outcome: Progressing Goal: LTG - Patient will maintain/improve skin integrity through proper skin care techniques Outcome: Progressing Goal: LTG - Patient will demonstrate appropriate pressure relief techniques Outcome: Progressing Goal: LTG - Patient will demonstrate appropriate skin care techniques Outcome: Progressing Goal: LTG - Patient will be free from infection Outcome: Progressing Goal: STG - Patient demonstrates skin care/treatment/dressing change Outcome: Progressing Goal: STG - Patient will maintain good skin integrity Outcome: Progressing Goal: STG - Patient exhibits signs of wound healing. Outcome: Progressing Goal: STG - Patient demonstrates pressure reduction techniques Outcome: Progressing Goal: STG - Patient demonstrates preventative skin care measures Outcome: Progressing Problem: RESPIRATORY Goal: Achieves optimal ventilation and oxygenation Outcome: Progressing Problem: Swallowing Goal: LTG - Patient will tolerate the least restrictive diet consistency to allow for safe consumption of daily meals Outcome: Progressing Problem: Potential for Interruption to Patient Safety R/T Use of Restraints Goal: Free from restraint events Outcome: Progressing Goal: Care Plan Reviewed Once Every Shift Description: All components of the non-violent/non-self destructive restraint care plan must be reviewed and documented once every shift. Outcome: Progressing * Plan of Care - Ina Mullen RN - 01/17/2025 6:32 AM EDT Problem: Knowledge Deficit Goal: Patient/family/caregiver demonstrates understanding of disease process, treatment plan, medications, and discharge instructions Description: Complete learning assessment and assess knowledge base. Outcome: Progressing Problem: Potential for Falls Goal: Patient will remain free of falls Description: Assess and monitor vitals signs, neurological status including level of consciousness and orientation. Reassess fall risk per hospital policy. Ensure arm band on, uncluttered walking paths in room, adequate room lighting, call light and overbed table within reach, bed in low position, wheels locked, side rails up per policy, and non-skid footwear provided. Outcome: Progressing Problem: Compromised Skin Integrity Goal: LTG - Patient will be free from infection Outcome: Progressing Goal: LTG - Patient will maintain/improve skin integrity through proper skin care techniques Outcome: Progressing Goal: STG - Patient will maintain good skin integrity Outcome: Progressing Goal: STG - Patient exhibits signs of wound healing. Outcome: Progressing Problem: RESPIRATORY Goal: Achieves optimal ventilation and oxygenation Outcome: Progressing Problem: Potential for Interruption to Patient Safety R/T Use of Restraints Goal: Free from restraint events Outcome: Progressing * Plan of Care - Sana Avalos RN - 01/16/2025 12:36 PM EDT Problem: Knowledge Deficit Goal: Patient/family/caregiver demonstrates understanding of disease process, treatment plan, medications, and discharge instructions Description: Complete learning assessment and assess knowledge base. Outcome: Progressing Problem: Potential for Falls Goal: Patient will remain free of falls Description: Assess and monitor vitals signs, neurological status including level of consciousness and orientation. Reassess fall risk per hospital policy. Ensure arm band on, uncluttered walking paths in room, adequate room lighting, call light and overbed table within reach, bed in low position, wheels locked, side rails up per policy, and non-skid footwear provided. Outcome: Progressing Problem: Compromised Skin Integrity Goal: LTG - Patient will be free from infection Outcome: Progressing Goal: LTG - Patient will maintain/improve skin integrity through proper skin care techniques Outcome: Progressing Goal: LTG - Patient will demonstrate appropriate pressure relief techniques Outcome: Progressing Goal: LTG - Patient will demonstrate appropriate skin care techniques Outcome: Progressing Goal: LTG - Patient will be free from infection Outcome: Progressing Goal: STG - Patient demonstrates skin care/treatment/dressing change Outcome: Progressing Goal: STG - Patient will maintain good skin integrity Outcome: Progressing Goal: STG - Patient exhibits signs of wound healing. Outcome: Progressing Goal: STG - Patient demonstrates pressure reduction techniques Outcome: Progressing Goal: STG - Patient demonstrates preventative skin care measures Outcome: Progressing Problem: RESPIRATORY Goal: Achieves optimal ventilation and oxygenation Outcome: Progressing Problem: Swallowing Goal: LTG - Patient will tolerate the least restrictive diet consistency to allow for safe consumption of daily meals Outcome: Progressing Problem: Potential for Interruption to Patient Safety R/T Use of Restraints Goal: Free from restraint events Outcome: Progressing Goal: Care Plan Reviewed Once Every Shift Description: All components of the non-violent/non-self destructive restraint care plan must be reviewed and documented once every shift. Outcome: Progressing * Plan of Care - Tricia Valdez RN - 01/15/2025 8:43 PM EDT Problem: Knowledge Deficit Goal: Patient/family/caregiver demonstrates understanding of disease process, treatment plan, medications, and discharge instructions Description: Complete learning assessment and assess knowledge base. Outcome: Progressing Problem: Potential for Falls Goal: Patient will remain free of falls Description: Assess and monitor vitals signs, neurological status including level of consciousness and orientation. Reassess fall risk per hospital policy. Ensure arm band on, uncluttered walking paths in room, adequate room lighting, call light and overbed table within reach, bed in low position, wheels locked, side rails up per policy, and non-skid footwear provided. Outcome: Progressing Problem: Compromised Skin Integrity Goal: LTG - Patient will be free from infection Outcome: Progressing Goal: LTG - Patient will maintain/improve skin integrity through proper skin care techniques Outcome: Progressing Goal: LTG - Patient will demonstrate appropriate pressure relief techniques Outcome: Progressing Goal: LTG - Patient will demonstrate appropriate skin care techniques Outcome: Progressing Goal: LTG - Patient will be free from infection Outcome: Progressing Goal: STG - Patient demonstrates skin care/treatment/dressing change Outcome: Progressing Goal: STG - Patient will maintain good skin integrity Outcome: Progressing Goal: STG - Patient exhibits signs of wound healing. Outcome: Progressing Goal: STG - Patient demonstrates pressure reduction techniques Outcome: Progressing Goal: STG - Patient demonstrates preventative skin care measures Outcome: Progressing Problem: RESPIRATORY Goal: Achieves optimal ventilation and oxygenation Outcome: Progressing Problem: Swallowing Goal: LTG - Patient will tolerate the least restrictive diet consistency to allow for safe consumption of daily meals Outcome: Progressing Problem: Potential for Interruption to Patient Safety R/T Use of Restraints Goal: Free from restraint events Outcome: Progressing Goal: Care Plan Reviewed Once Every Shift Description: All components of the non-violent/non-self destructive restraint care plan must be reviewed and documented once every shift. Outcome: Progressing * Plan of Care - Sana Avalos RN - 01/15/2025 12:44 PM EDT Problem: Knowledge Deficit Goal: Patient/family/caregiver demonstrates understanding of disease process, treatment plan, medications, and discharge instructions Description: Complete learning assessment and assess knowledge base. Outcome: Progressing Problem: Potential for Falls Goal: Patient will remain free of falls Description: Assess and monitor vitals signs, neurological status including level of consciousness and orientation. Reassess fall risk per hospital policy. Ensure arm band on, uncluttered walking paths in room, adequate room lighting, call light and overbed table within reach, bed in low position, wheels locked, side rails up per policy, and non-skid footwear provided. Outcome: Progressing Problem: Compromised Skin Integrity Goal: LTG - Patient will be free from infection Outcome: Progressing Goal: LTG - Patient will maintain/improve skin integrity through proper skin care techniques Outcome: Progressing Goal: LTG - Patient will demonstrate appropriate pressure relief techniques Outcome: Progressing Goal: LTG - Patient will demonstrate appropriate skin care techniques Outcome: Progressing Goal: LTG - Patient will be free from infection Outcome: Progressing Goal: STG - Patient demonstrates skin care/treatment/dressing change Outcome: Progressing Goal: STG - Patient will maintain good skin integrity Outcome: Progressing Goal: STG - Patient exhibits signs of wound healing. Outcome: Progressing Goal: STG - Patient demonstrates pressure reduction techniques Outcome: Progressing Goal: STG - Patient demonstrates preventative skin care measures Outcome: Progressing Problem: RESPIRATORY Goal: Achieves optimal ventilation and oxygenation Outcome: Progressing Problem: Swallowing Goal: LTG - Patient will tolerate the least restrictive diet consistency to allow for safe consumption of daily meals Outcome: Progressing Problem: Potential for Interruption to Patient Safety R/T Use of Restraints Goal: Free from restraint events Outcome: Progressing Goal: Care Plan Reviewed Once Every Shift Description: All components of the non-violent/non-self destructive restraint care plan must be reviewed and documented once every shift. Outcome: Progressing * Plan of Care - Tricia Valdez RN - 01/14/2025 9:28 PM EDT Problem: Knowledge Deficit Goal: Patient/family/caregiver demonstrates understanding of disease process, treatment plan, medications, and discharge instructions Description: Complete learning assessment and assess knowledge base. Outcome: Progressing Problem: Potential for Falls Goal: Patient will remain free of falls Description: Assess and monitor vitals signs, neurological status including level of consciousness and orientation. Reassess fall risk per hospital policy. Ensure arm band on, uncluttered walking paths in room, adequate room lighting, call light and overbed table within reach, bed in low position, wheels locked, side rails up per policy, and non-skid footwear provided. Outcome: Progressing Problem: Compromised Skin Integrity Goal: LTG - Patient will be free from infection Outcome: Progressing Goal: LTG - Patient will maintain/improve skin integrity through proper skin care techniques Outcome: Progressing Goal: LTG - Patient will demonstrate appropriate pressure relief techniques Outcome: Progressing Goal: LTG - Patient will demonstrate appropriate skin care techniques Outcome: Progressing Goal: LTG - Patient will be free from infection Outcome: Progressing Goal: STG - Patient demonstrates skin care/treatment/dressing change Outcome: Progressing Goal: STG - Patient will maintain good skin integrity Outcome: Progressing Goal: STG - Patient exhibits signs of wound healing. Outcome: Progressing Goal: STG - Patient demonstrates pressure reduction techniques Outcome: Progressing Goal: STG - Patient demonstrates preventative skin care measures Outcome: Progressing Problem: RESPIRATORY Goal: Achieves optimal ventilation and oxygenation Outcome: Progressing Problem: Swallowing Goal: LTG - Patient will tolerate the least restrictive diet consistency to allow for safe consumption of daily meals Outcome: Progressing Problem: Potential for Interruption to Patient Safety R/T Use of Restraints Goal: Free from restraint events Outcome: Progressing Goal: Care Plan Reviewed Once Every Shift Description: All components of the non-violent/non-self destructive restraint care plan must be reviewed and documented once every shift. Outcome: Progressing * Plan of Care - Mari Stanford RN - 01/14/2025 2:05 PM EDT Problem: Knowledge Deficit Goal: Patient/family/caregiver demonstrates understanding of disease process, treatment plan, medications, and discharge instructions Description: Complete learning assessment and assess knowledge base. Outcome: Progressing Problem: Potential for Falls Goal: Patient will remain free of falls Description: Assess and monitor vitals signs, neurological status including level of consciousness and orientation. Reassess fall risk per hospital policy. Ensure arm band on, uncluttered walking paths in room, adequate room lighting, call light and overbed table within reach, bed in low position, wheels locked, side rails up per policy, and non-skid footwear provided. Outcome: Progressing Problem: Compromised Skin Integrity Goal: LTG - Patient will be free from infection Outcome: Progressing Goal: LTG - Patient will maintain/improve skin integrity through proper skin care techniques Outcome: Progressing Goal: LTG - Patient will demonstrate appropriate pressure relief techniques Outcome: Progressing Goal: LTG - Patient will demonstrate appropriate skin care techniques Outcome: Progressing Goal: LTG - Patient will be free from infection Outcome: Progressing Goal: STG - Patient demonstrates skin care/treatment/dressing change Outcome: Progressing Goal: STG - Patient will maintain good skin integrity Outcome: Progressing Goal: STG - Patient exhibits signs of wound healing. Outcome: Progressing Goal: STG - Patient demonstrates pressure reduction techniques Outcome: Progressing Goal: STG - Patient demonstrates preventative skin care measures Outcome: Progressing Problem: RESPIRATORY Goal: Achieves optimal ventilation and oxygenation Outcome: Progressing Problem: Swallowing Goal: LTG - Patient will tolerate the least restrictive diet consistency to allow for safe consumption of daily meals Outcome: Progressing Problem: Potential for Interruption to Patient Safety R/T Use of Restraints Goal: Free from restraint events Outcome: Progressing Goal: Care Plan Reviewed Once Every Shift Description: All components of the non-violent/non-self destructive restraint care plan must be reviewed and documented once every shift. Outcome: Progressing * Plan of Care - Marybeth Valero RN - 01/13/2025 11:26 PM EDT Problem: Knowledge Deficit Goal: Patient/family/caregiver demonstrates understanding of disease process, treatment plan, medications, and discharge instructions Description: Complete learning assessment and assess knowledge base. Outcome: Progressing Problem: Potential for Falls Goal: Patient will remain free of falls Description: Assess and monitor vitals signs, neurological status including level of consciousness and orientation. Reassess fall risk per hospital policy. Ensure arm band on, uncluttered walking paths in room, adequate room lighting, call light and overbed table within reach, bed in low position, wheels locked, side rails up per policy, and non-skid footwear provided. Outcome: Progressing Problem: Compromised Skin Integrity Goal: LTG - Patient will be free from infection Outcome: Progressing Goal: LTG - Patient will maintain/improve skin integrity through proper skin care techniques Outcome: Progressing Goal: LTG - Patient will demonstrate appropriate pressure relief techniques Outcome: Progressing Goal: LTG - Patient will demonstrate appropriate skin care techniques Outcome: Progressing Goal: LTG - Patient will be free from infection Outcome: Progressing Goal: STG - Patient demonstrates skin care/treatment/dressing change Outcome: Progressing Goal: STG - Patient will maintain good skin integrity Outcome: Progressing Goal: STG - Patient exhibits signs of wound healing. Outcome: Progressing Goal: STG - Patient demonstrates pressure reduction techniques Outcome: Progressing Goal: STG - Patient demonstrates preventative skin care measures Outcome: Progressing Problem: RESPIRATORY Goal: Achieves optimal ventilation and oxygenation Outcome: Progressing Problem: Swallowing Goal: LTG - Patient will tolerate the least restrictive diet consistency to allow for safe consumption of daily meals Outcome: Progressing Problem: Potential for Interruption to Patient Safety R/T Use of Restraints Goal: Free from restraint events Outcome: Progressing Goal: Care Plan Reviewed Once Every Shift Description: All components of the non-violent/non-self destructive restraint care plan must be reviewed and documented once every shift. Outcome: Progressing * Significant Event - Anastacio Cotton RN - 01/13/2025 6:04 PM EDT Situation: Patient was eating prior to respiratory decline. Not long after eating patient began to desaturate struggling to maintain 02 saturations in the 80's on Airvo 100% oxygen and 60 Liters. Ms. LamsPOA was notified and she wanted the code status changed from DNR/DNI to DNR/ Intubation okay. Attending MD was notified and Code status was changed. Due to the change in code status and patient's inability to maintain her airway, patient required emergent intubation. Actions: Pulmonary CCM was called and notified, Intubation order and medication orders were placed. Intubation Meds: Etomidate 20 mg, Versed 10 mg, and fentynal 50 mcg. Additionally, Phenylephrine gtt, propofol gtt, and fentanyl gtt ordered to maintain sedation and blood pressure. Outcome: Patient was successfully intubated and is currently hemodynamically stable. Pulmonary CCM and additional ICU care team members to maintain care. Blood pressure 110/55, pulse 86, temperature 97.6 ??F (36.4 ??C), temperature source Oral, resp. rate 22, height 1.524 m (5'), weight 48.1 kg (106 lb 0.7 oz), SpO2 100%. -Will continue to monitor- * Plan of Care - RIVER Ortiz - 01/13/2025 3:27 PM EDT Problem: Swallowing Goal: LTG - Patient will tolerate the least restrictive diet consistency to allow for safe consumption of daily meals Outcome: Progressing * Plan of Care - Renée Sanchez RN - 01/12/2025 2:46 PM EDT Problem: Knowledge Deficit Goal: Patient/family/caregiver demonstrates understanding of disease process, treatment plan, medications, and discharge instructions Description: Complete learning assessment and assess knowledge base. Outcome: Progressing Problem: Potential for Falls Goal: Patient will remain free of falls Description: Assess and monitor vitals signs, neurological status including level of consciousness and orientation. Reassess fall risk per hospital policy. Ensure arm band on, uncluttered walking paths in room, adequate room lighting, call light and overbed table within reach, bed in low position, wheels locked, side rails up per policy, and non-skid footwear provided. Outcome: Progressing Problem: Compromised Skin Integrity Goal: LTG - Patient will be free from infection Outcome: Progressing Goal: LTG - Patient will maintain/improve skin integrity through proper skin care techniques Outcome: Progressing Goal: LTG - Patient will demonstrate appropriate pressure relief techniques Outcome: Not Progressing Goal: LTG - Patient will demonstrate appropriate skin care techniques Outcome: Not Progressing Goal: LTG - Patient will be free from infection Outcome: Progressing Goal: STG - Patient demonstrates skin care/treatment/dressing change Outcome: Not Progressing Goal: STG - Patient will maintain good skin integrity Outcome: Progressing Goal: STG - Patient exhibits signs of wound healing. Outcome: Progressing Goal: STG - Patient demonstrates pressure reduction techniques Outcome: Not Progressing Goal: STG - Patient demonstrates preventative skin care measures Outcome: Not Progressing Problem: RESPIRATORY Goal: Achieves optimal ventilation and oxygenation Outcome: Progressing * Plan of Care - Мария Weiss RN - 01/12/2025 5:08 AM EDT Problem: Knowledge Deficit Goal: Patient/family/caregiver demonstrates understanding of disease process, treatment plan, medications, and discharge instructions Description: Complete learning assessment and assess knowledge base. Outcome: Progressing Problem: Potential for Falls Goal: Patient will remain free of falls Description: Assess and monitor vitals signs, neurological status including level of consciousness and orientation. Reassess fall risk per hospital policy. Ensure arm band on, uncluttered walking paths in room, adequate room lighting, call light and overbed table within reach, bed in low position, wheels locked, side rails up per policy, and non-skid footwear provided. Outcome: Progressing Problem: RESPIRATORY Goal: Achieves optimal ventilation and oxygenation Outcome: Progressing documented in this encounter Plan of Treatment Pending Results Name Type Priority Associated Diagnoses Date /Time AFB Culture And Stain Microbiology STAT 01/14/2025 11:33 AM EDT Culture Fungus W/AALIYAH Or Mayte Ink Microbiology STAT 01/14/2025 11:33 AM EDT documented as of this encounter Procedures Procedure Name Priority Date/Time Associated Diagnosis Comments XR CHEST AP PORTABLE Routine 01/23/2025 6:26 AM EDT NOVA GLUCOSE POC Routine 01/23/2025 5:50 AM EDT NOVA GLUCOSE POC Routine 01/22/2025 11:5 9 PM EDT NOVA GLUCOSE POC Routine 01/22/2025 11:3 9 AM EDT FL MODIFIED BARIUM SWALLOW Routine 01/22/2025 10:54 AM EDT CBC W/ AUTO DIFF Routine 01/22/2025 8:56 AM EDT PHOSPHORUS Routine 01/22/2025 8:56 AM EDT MAGNESIUM Routine 01/22/2025 8:56 AM EDT BASIC METABOLIC PANEL Routine 01/22/2025 8:56 AM EDT XR CHEST AP PORTABLE Routine 01/22/2025 6:19 AM EDT NOVA GLUCOSE POC Routine 01/22/2025 5:27 AM EDT NOVA GLUCOSE POC Routine 01/21/2025 11:5 8 PM EDT NOVA GLUCOSE POC Routine 01/21/2025 6:12 PM EDT NOVA GLUCOSE POC Routine 01/21/2025 12:0 3 PM EDT XR CHEST AP PORTABLE Routine 01/21/2025 6:55 AM EDT NOVA GLUCOSE POC Routine 01/21/2025 5:13 AM EDT NOVA GLUCOSE POC Routine 01/21/2025 12:0 3 AM EDT NOVA GLUCOSE POC Routine 01/20/2025 7:57 PM EDT NOVA GLUCOSE POC Routine 01/20/2025 3:59 PM EDT NOVA GLUCOSE POC Routine 01/20/2025 10:3 7 AM EDT XR CHEST AP PORTABLE Routine 01/20/2025 6:28 AM EDT PHOSPHORUS Routine 01/20/2025 5:18 AM EDT MAGNESIUM Routine 01/20/2025 5:18 AM EDT BASIC METABOLIC PANEL Routine 01/20/2025 5:18 AM EDT CBC W/ AUTO DIFF Routine 01/20/2025 5:12 AM EDT NOVA GLUCOSE POC Routine 01/20/2025 5:03 AM EDT NOVA GLUCOSE POC Routine 01/19/2025 11:4 2 PM EDT NOVA GLUCOSE POC Routine 01/19/2025 5:21 PM EDT BASIC METABOLIC PANEL [place] 01/19/2025 12:45 PM EDT NOVA GLUCOSE POC Routine 01/19/2025 12:0 9 PM EDT BLOOD GAS, ARTERIAL STAT 01/19/2025 1 0:37 AM EDT FS_MODEL_IP_ECG 12-LEAD Routine 01/19/2025 10:00 AM EDT CBC HEMOGRAM (SJ-BKR) [place] 01/19/2025 8:41 AM EDT NOVA GLUCOSE POC Routine 01/19/2025 5:17 AM EDT XR CHEST AP PORTABLE Routine 01/19/2025 3:21 AM EDT NOVA GLUCOSE POC Routine 01/19/2025 12:5 0 AM EDT FS_MODEL_IP_ECG 12-LEAD Routine 01/18/2025 10:06 PM EDT NOVA GLUCOSE POC Routine 01/18/2025 5:51 PM EDT NOVA GLUCOSE POC Routine 01/18/2025 11:1 7 AM EDT FS_MODEL_IP_ECG 12-LEAD Routine 01/18/2025 7:32 AM EDT NOVA GLUCOSE POC Routine 01/18/2025 6:09 AM EDT CBC HEMOGRAM (SJ-BKR) Routine 01/18/2025 4:29 AM EDT MAGNESIUM Routine 01/18/2025 4:29 AM EDT BASIC METABOLIC PANEL Routine 01/18/2025 4:29 AM EDT XR CHEST AP PORTABLE Routine 01/18/2025 3:52 AM EDT NOVA GLUCOSE POC Routine 01/18/2025 12:2 2 AM EDT NOVA GLUCOSE POC Routine 01/17/2025 5:40 PM EDT NOVA GLUCOSE POC Routine 01/17/2025 11:3 8 AM EDT FS_MODEL_IP_ECG 12-LEAD Routine 01/17/2025 9:14 AM EDT NOVA GLUCOSE POC Routine 01/17/2025 5:07 AM EDT XR CHEST AP PORTABLE Routine 01/17/2025 4:45 AM EDT CBC HEMOGRAM (SJ-BKR) Routine 01/17/2025 3:31 AM EDT MAGNESIUM Routine 01/17/2025 3:31 AM EDT BASIC METABOLIC PANEL Routine 01/17/2025 3:31 AM EDT NOVA GLUCOSE POC Routine 01/16/2025 11:5 2 PM EDT NOVA GLUCOSE POC Routine 01/16/2025 5:39 PM EDT POTASSIUM Routine 01/16/2025 12:17 PM EDT PHOSPHORUS Add-On 01/16/2025 12:17 PM EDT NOVA GLUCOSE POC Routine 01/16/2025 11:3 6 AM EDT XR CHEST AP PORTABLE Routine 01/16/2025 4:58 AM EDT CBC HEMOGRAM (SJ-BKR) Routine 01/16/2025 3:36 AM EDT PHOSPHORUS Add-On 01/16/2025 3:36 AM EDT MAGNESIUM Routine 01/16/2025 3:36 AM EDT BASIC METABOLIC PANEL Routine 01/16/2025 3:36 AM EDT NOVA GLUCOSE POC Routine 01/16/2025 12:2 5 AM EDT NOVA GLUCOSE POC Routine 01/15/2025 5:07 PM EDT NOVA GLUCOSE POC Routine 01/15/2025 3:25 PM EDT FS_MODEL_IP_ECG 12-LEAD Routine 01/15/2025 9:08 AM EDT BLOOD GAS, ARTERIAL STAT 01/15/2025 8 :33 AM EDT XR ABDOMEN/KUB 1 VIEW PORTABLE Routine 01/15/2025 6:23 AM EDT NOVA GLUCOSE POC Routine 01/15/2025 5:43 AM EDT XR CHEST AP PORTABLE Routine 01/15/2025 4:53 AM EDT CBC HEMOGRAM (SJ-BKR) Routine 01/15/2025 3:37 AM EDT MAGNESIUM Routine 01/15/2025 3:37 AM EDT BASIC METABOLIC PANEL Routine 01/15/2025 3:37 AM EDT NOVA GLUCOSE POC Routine 01/15/2025 12:2 2 AM EDT FS_MODEL_IP_ECG 12-LEAD Routine 01/14/2025 9:04 PM EDT NOVA GLUCOSE POC Routine 01/14/2025 5:45 PM EDT NOVA GLUCOSE POC Routine 01/14/2025 12:3 9 PM EDT PNEUMONIA PCR PANEL Routine 01/14/2025 1 1:36 AM EDT RESPIRATORY CULTURE Routine 01/14/2025 1 1:33 AM EDT AFB CULTURE AND STAIN STAT 01/14/2025 11:33 AM EDT FUNGUS CULTURE W/AALIYAH OR MAYTE INK STAT 01/14/2025 11:33 AM EDT PNEUMONIA PCR PANEL W/RESP CX Routine 01/14/2025 11:33 AM EDT SPIN/CONCENTRATION CHARGE Routine 01/14/2025 11:33 AM EDT XR CHEST AP PORTABLE Routine 01/14/2025 5:53 AM EDT NOVA GLUCOSE POC Routine 01/14/2025 5:24 AM EDT CALCIUM, IONIZED Routine 01/14/2025 3:53 AM EDT MAGNESIUM Routine 01/14/2025 3:53 AM EDT COMPREHENSIVE METABOLIC PANEL Routine 01/14/2025 3:53 AM EDT CBC HEMOGRAM (SJ-BKR) Routine 01/14/2025 3:47 AM EDT NOVA GLUCOSE POC Routine 01/14/2025 12:3 4 AM EDT FS_MODEL_IP_ECG 12-LEAD Routine 01/13/2025 9:37 PM EDT XR ABDOMEN/KUB 1 VIEW PORTABLE Routine 01/13/2025 7:21 PM EDT BLOOD GAS, ARTERIAL Routine 01/13/2025 6 :49 PM EDT NOVA GLUCOSE POC Routine 01/13/2025 6:10 PM EDT XR CHEST AP PORTABLE STAT 01/13/2025 5:54 PM EDT XR CHEST AP PORTABLE STAT 01/13/2025 5:29 PM EDT POTASSIUM Routine 01/13/2025 1:41 PM EDT MAGNESIUM Routine 01/13/2025 1:[address] CHEST WITHOUT IV CONTRAST STAT 01/13/2025 12:20 PM EDT NOVA GLUCOSE POC Routine 01/13/2025 11:5 7 AM EDT ECHO COMPLETE (DOPPLER / COLOR) WO CONTRAST Routine 01/13/2025 9:55 AM EDT FS_MODEL_IP_ECG 12-LEAD Routine 01/13/2025 8:05 AM EDT PHOSPHORUS Add-On 01/13/2025 6:15 AM EDT MAGNESIUM Routine 01/13/2025 6:15 AM EDT COMPREHENSIVE METABOLIC PANEL Routine 01/13/2025 6:15 AM EDT NOVA GLUCOSE POC Routine 01/13/2025 6:12 AM EDT XR CHEST AP PORTABLE Routine 01/13/2025 5:31 AM EDT CBC HEMOGRAM (SJ-BKR) Routine 01/13/2025 4:09 AM EDT CALCIUM, IONIZED Routine 01/13/2025 4:09 AM EDT NOVA GLUCOSE POC Routine 01/13/2025 12:0 4 AM EDT BASIC METABOLIC PANEL Add-On 01/12/2025 7:49 PM EDT NOVA GLUCOSE POC Routine 01/12/2025 5:12 PM EDT NOVA GLUCOSE POC Routine 01/12/2025 12:0 8 PM EDT STREP PNEUMONIAE URINE ANTIGEN Routine 01/12/2025 10:33 AM EDT LEGIONELLA ANTIGEN, URINE Routine 01/12/2025 10:33 AM EDT FS_MODEL_IP_ECG 12-LEAD Routine 01/12/2025 8:46 AM EDT RESPIRATORY CULTURE Routine 01/12/2025 6 :07 AM EDT PNEUMONIA PCR PANEL W/RESP CX Routine 01/12/2025 6:07 AM EDT NOVA GLUCOSE POC Routine 01/12/2025 5:52 AM EDT XR CHEST AP PORTABLE STAT 01/12/2025 3:42 AM EDT LACTIC ACID (SJ - BKR) Routine 3:30 AM EDT CALCIUM, IONIZED Routine 01/12/2025 3:30 AM EDT PROCALCITONIN Routine 01/12/2025 3:30 AM EDT PROBNP Add-On 01/12/2025 3:30 AM EDT C-REACTIVE PROTEIN Routine 01/12/2025 3: 30 AM EDT PHOSPHORUS Routine 01/12/2025 3:30 AM EDT COMPREHENSIVE METABOLIC PANEL Routine 01/12/2025 3:30 AM EDT RESPIRATORY PANEL Routine 01/12/2025 3:2 9 AM EDT MRSA SCREEN Routine 01/12/2025 3:29 AM EDT NOVA GLUCOSE POC Routine 01/12/2025 2:09 AM EDT CBC HEMOGRAM (SJ-BKR) Routine 01/12/2025 2:05 AM EDT MAGNESIUM Routine 01/12/2025 2:05 AM EDT BASIC METABOLIC PANEL Routine 01/12/2025 2:05 AM EDT EKG-SCANNED 01/12/2025 documented in this encounter Results * XR chest AP portable (01/23/2025 6:26 AM EDT) Anatomical Region Laterality Modality Chest X-Ray 01/23/2025 9:14 AM EDT Impressions 01/23/2025 9:20 AM EDT 1. Branching high density in the lung bases is consistent with aspiration of barium. 2. Dense left lower lung consolidation. Images reviewed, interpreted, and dictated by Dr. Juna Bonilla. Transcribed by Callie Garnica PA-C. Narrative 01/23/2025 9:20 AM EDT PORTABLE CHEST 01/23/2025 5:08 AM HISTORY: Aspiration pneumonia. COMPARISON: 1 day prior. FINDINGS: The heart size is within normal limits. The mediastinum is unremarkable. There is branching high density in the lung bases consistent with aspiration of barium. There is dense left lower lung consolidation. There is no pneumothorax . Corpak terminates below the diaphragm. Procedure Note Juan Bonilla MD - 01/23/2025 PORTABLE CHEST 01/23/2025 5:08 AM HISTORY: Aspiration pneumonia. COMPARISON: 1 day prior. FINDINGS: The heart size is within normal limits. The mediastinum is unremarkable. There is branching high density in the lung bases consistent with aspiration of barium. There is dense left lower lung consolidation. There is no pneumothorax . Corpak terminates below the diaphragm. IMPRESSION: 1. Branching high density in the lung bases is consistent with aspiration of barium. 2. Dense left lower lung consolidation. Images reviewed, interpreted, and dictated by Dr. Juan Bonilla. Transcribed by Callie Garnica PA-C. [place] [employer] IMG DIAGNOSTIC IMAGING ORDERAB LES Final Result * (ABNORMAL) Glucose, Nova Meter (01/23/2025 5:50 AM EDT) POC-GLUCOSE 178(H) 70 - 110 mg/dL 01/23/2025 5:58 AM EDT [facility] Comment:In the event of poor peripheral blood flow, venous or arterial blood should be used due to the potential of erroneous results. Wire Spooler [id number] 01/23/2025 5:58 AM EDT [facility] Blood WHOLE BLOOD / Unknown 01/23/2025 5:50 AM EDT 01/23/2025 5:58 AM EDT [facility] - 01/23/2025 5:58 AM EDT Notified RN/MD us Krystian Bhakta MD POINT OF CARE TEST ORDERABLES F inal Result Performing Organization Address [facility] Co de Phone Number [facility] [address] [phone] * (ABNORMAL) Glucose, Nova Meter (01/22/2025 11:59 PM EDT) POC-GLUCOSE 146(H) 70 - 110 mg/dL 01/23/2025 12:09 AM EDT [facility] Comment:In the event of poor peripheral blood flow, venous or arterial blood should be used due to the potential of erroneous results. Wire Spooler [id number] 01/23/2025 12:09 AM EDT [facility] Blood WHOLE BLOOD / Unknown 01/22/2025 11:59 PM EDT 01/23/2025 12:09 AM EDT Narrative [facility] - 01/23/2025 12:09 AM EDT Notified RN/MD us Krystian Bhakta MD POINT OF CARE TEST ORDERABLES F inal Result Performing Organization Address [facility] Co de Phone Number [facility] [address] [phone] * (ABNORMAL) Glucose, Nova Meter (01/22/2025 11:39 AM EDT) POC-GLUCOSE 216(H) 70 - 110 mg/dL 01/22/2025 11:48 AM EDT [facility] Comment:In the event of poor peripheral blood flow, venous or arterial blood should be used due to the potential of erroneous results. Wire Spooler [id number] 01/22/2025 11:48 AM EDT [facility] Blood WHOLE BLOOD / Unknown 01/22/2025 11:39 AM EDT 01/22/2025 11:48 AM EDT Narrative [facility] - 01/22/2025 11:48 AM EDT Notified RN/MD Krystian Bhakta MD POINT OF CARE TEST ORDERABLES F inal Result [facility] [address] [place] [address] * [place] MODIFIED BARIUM SWALLOW (01/22/2025 10:54 AM EDT) Anatomical Region Laterality Modality X-Ray 01/22/2025 12:2 8 PM EDT Impressions 01/22/2025 3:19 PM EDT Modified barium swallow under fluoroscopic guidance. Please see speech pathologist's report for further details and recommendations. Images reviewed, interpreted, and dictated by Dr. Juan Bonilla. Transcribed by Xaiv Arroyo PA-C. Narrative 01/22/2025 3:19 PM EDT MODIFIED BARIUM SWALLOW HISTORY: Dysphagia. FINDINGS: Fluoroscopy was provided for the speech pathologist to evaluate the swallowing mechanism. The patient was given several different consistencies of barium while the swallow was visualized fluoroscopically. There was gross aspiration to all administered consistencies, including pudding. The report of the speech pathologist should be consulted prior to making dietary decisions. 12 total images were performed. Fluoroscopy exposure time: 1.1 minutes. Radiation exposure in reference to air kerma: 6.6 mGy Procedure Note Juan Bonilla MD - 01/22/2025 MODIFIED BARIUM SWALLOW HISTORY: Dysphagia. FINDINGS: Fluoroscopy was provided for the speech pathologist to evaluate the swallowing mechanism. The patient was given several different consistencies of barium while the swallow was visualized fluoroscopically. There was gross aspiration to all administered consistencies, including pudding. The report of the speech pathologist should be consulted prior to making dietary decisions. 12 total images were performed. Fluoroscopy exposure time: 1.1 minutes. Radiation exposure in reference to air kerma: 6.6 mGy IMPRESSION: Modified barium swallow under fluoroscopic guidance. Please see speech pathologist's report for further details and recommendations. Images reviewed, interpreted, and dictated by Dr. Juan Bonilla. Transcribed by Xavi Arroyo PA-C. us Agustin Andrew MD IMG FLUOROSCOPY ORDERABLES Shobha l Result * Phosphorus (01/22/2025 8:56 AM EDT) Phosphorus 3.1 2.5 - 4.5 mg/dL 01/22/2025 9:45 AM EDT [facility] Blood Venipuncture / Unknown 01/22/2025 8:56 AM EDT 01/22/2025 9:17 AM EDT us Agustin Andrew MD LAB BLOOD ORDERABLES Final Resu lt Performing Organization Address [facility] Co de Phone Number [facility] [address] [phone] * Magnesium (01/22/2025 8:56 AM EDT) Magnesium 1.6 1.6 - 2.6 mg/dL 01/22/2025 9:45 AM EDT [facility] Blood Venipuncture / Unknown 01/22/2025 8:56 AM EDT 01/22/2025 9:17 AM EDT us Agustin Andrew MD LAB BLOOD ORDERABLES Final Resu lt Performing Organization Address City/[facility]/ZIP Co de Phone Number [facility] [address] [phone] * (ABNORMAL) CBC with automated diff (01/22/2025 8:56 AM EDT) WBC 11.3(H) 4.0 - 10.0 K/ L 01/22/2025 10:00 AM EDT [facility] RBC 2.80(L) 3.93 - 5.22 M/ L 01/22/2025 10:00 AM T [facility] Hemoglobin 8.2(L) 11.2 - 15.7 GM/DL 01/22/2025 10:00 AM EDT [facility] Hematocrit 25.4(L) 34.1 - 44.9 % 01/22/2025 10:00 AM [facility] MCV 91 79 - 95 fL 01/22/2025 10:00 AM T [facility] MCH 29.3 25.6 - 32.2 pg 01/22/2025 10:00 AM T [facility] MCHC 32.3 32.2 - 35.5 GM/DL 01/22/2025 10:00 AM EDT [facility] RDW 15.5(H) 11.7 - 14.4 % 01/22/2025 10:00 AM T [facility] Platelets 255 140 - 375 K/CU MM 01/22/2025 10:00 AM T [facility] MPV 11.1 9.4 - 12.3 fL 01/22/2025 10:00 AM T [facility] % Neutros 73(H) 34 - 71 % 01/22/2025 10:00 AM EDT [facility] % Lymphs 18(L) 19 - 52 % 01/22/2025 10:00 AM EDT [facility] % Monos 7 5 - 13 % 01/22/2025 10:00 AM EDT [facility] % Eos 0.3(L) 1.0 - 6.0 % 01/22/2025 10:00 AM EDT [facility] % Baso 0 0 - 1 % 01/22/2025 10:00 AM EDT [facility] NRBC Absolute <0.01 0 - 0.012 K/ul 01/22/2025 10:00 AM EDT [facility] # Neutros 8.22(H) 1.56 - 6.13 K/ L 01/22/2025 10:00 AM EDT [facility] # Lymphs 2.02 1.18 - 3.74 K/ L 01/22/2025 10:00 AM EDT [facility] # Monos 0.84 0.24 - 0.86 K/ L 01/22/2025 10:00 AM EDT [facility] # Eos 0.03(L) 0.04 - 0.36 K/ L 01/22/2025 10:00 AM EDT [facility] # Baso <0.03 0.01 - 0.08 K/ L 01/22/2025 10:00 AM EDT [facility] % Imm Grans 1.30(H) 0.01 - 0.43 % 01/22/2025 10:00 AM EDT [facility] # IG 0.15(H) 0.00 - 0.03 K/uL 01/22/2025 10:00 AM EDT [facility] Blood Venipuncture / Unknown 01/22/2025 8:56 AM EDT 01/22/2025 9:19 AM EDT Narrative [facility] - 01/22/2025 10:00 AM EDT When CBC w/ Auto Diff is ordered the lab will add a Manual Differential as a quality check at no additional charge if: Lymphocytes greater than seventy five percent with normal or increased WBC Monocytes greater than Fifteen percent Basophil greater than four percent Bands >10% or several immature myeloids are seen on scan Blast? Flag noted Atypical Lymph flag noted us Agustin Andrew MD LAB BLOOD ORDERABLES Final Resu lt [facility] [address] [place] [address], [facility] [phone] * (ABNORMAL) Basic Metabolic Panel (01/22/2025 8:56 AM EDT) Sodium 139 136 - 145 meq/L 01/22/2025 9:45 AM EDT [facility] Potassium 3.8 3.4 - 5.1 meq/L 01/22/2025 9:45 AM EDT [facility] CO2 23 22 - 29 meq/L 01/22/2025 9:45 AM EDT [facility] Chloride 108 98 - 112 meq/L 01/22/2025 9:45 AM EDT [facility] Glucose 192(H) 82 - 115 mg/dL 01/22/2025 9:45 AM EDT [facility] BUN 29.0(H) 9.8 - 20.1 mg/dL 01/22/2025 9:45 AM EDT [facility] Creatinine 0.96 0.50 - 1.20 mg/dL 01/22/2025 9:45 AM EDT [facility] BUN/Creatinine 30(H) 8 - 20 01/22/2025 9:45 AM EDT [facility] Calcium 8.7 8.4 - 10.2 mg/dL 01/22/2025 9:45 AM EDT [facility] Anion Gap 12 4 - 12 01/22/2025 9:45 AM EDT [facility] eGFR (mL/min/1.73m2) 62 >=60 mL/min/1.7 3m2 01/22/2025 9:45 AM EDT [facility] Comment:ESTIMATED GFR IS NOT ACCURATE CREATININE CLEARANCE IN PREDICTING GLOMERULAR FILTRATION RATE. ESTIMATED GFR IS NOT APPLICABLE FOR DIALYSIS PATIENTS. Osmolality Calc 288.6 mOsm/kg 9:45 AM EDT [facility] Blood Venipuncture / Unknown 01/22/2025 8:56 AM EDT 01/22/2025 9:17 AM EDT us Agustin Andrew MD LAB BLOOD ORDERABLES Final Resu lt [facility] [address] [phone] * XR chest AP portable (01/22/2025 6:19 AM EDT) Anatomical Region Laterality Modality Chest X-Ray 01/22/2025 8:12 AM EDT Impressions 01/22/2025 9:17 AM EDT Stable left basilar collapse/consolidation and small left effusion. Images reviewed, interpreted, and dictated by Dr. Juan Bonilla. Transcribed by Xavi Arroyo PA-C. Narrative 01/22/2025 9:17 AM EDT PORTABLE CHEST HISTORY: Respiratory failure. COMPARISON: PCXR from the previous day. FINDINGS: The heart is stable in size. The patient is status post median sternotomy. There is left basilar collapse/consolidation with a small left effusion, stable from a prior study. There is no pneumothorax. Corpak feeding tube extends below the diaphragm. Procedure Note Juan Bonilla MD - 01/22/2025 PORTABLE CHEST HISTORY: Respiratory failure. COMPARISON: PCXR from the previous day. FINDINGS: The heart is stable in size. The patient is status post median sternotomy. There is left basilar collapse/consolidation with a small left effusion, stable from a prior study. There is no pneumothorax. Corpak feeding tube extends below the diaphragm. IMPRESSION: Stable left basilar collapse/consolidation and small left effusion. Images reviewed, interpreted, and dictated by Dr. Juan Bonlila. Transcribed by Xavi Arroyo PA-C. us Aki Espinosa APRN [facility] DIAGNOSTIC IMAGING ORDERAB LES Final Result * (ABNORMAL) Glucose, Nova Meter (01/22/2025 5:27 AM EDT) POC-GLUCOSE 168(H) 70 - 110 mg/dL 01/22/2025 5:36 AM EDT [facility] Comment:In the event of poor peripheral blood flow, venous or arterial blood should be used due to the potential of erroneous results. Wire Spooler [id number] 01/22/2025 5:36 AM EDT [facility] Blood WHOLE BLOOD / Unknown 01/22/2025 5:27 AM EDT 01/22/2025 5:36 AM EDT Narrative [facility] - 01/22/2025 5:36 AM EDT Notified RN/MD us Agustin Andrew MD POINT OF CARE TEST ORDERABLES F inal Result [facility] [address] [place] [address], [facility] [phone] * (ABNORMAL) Glucose, Nova Meter (01/21/2025 11:58 PM EDT) POC-GLUCOSE 171(H) 70 - 110 mg/dL 01/22/2025 12:07 AM EDT [facility] Comment:In the event of poor peripheral blood flow, venous or arterial blood should be used due to the potential of erroneous results. Wire Spooler [id number] 01/22/2025 12:07 AM EDT [facility] Blood WHOLE BLOOD / Unknown 01/21/2025 11:58 PM EDT 01/22/2025 12:07 AM EDT [facility] - 01/22/2025 12:07 AM EDT Notified RN/MD us Agustin Andrew MD POINT OF CARE TEST ORDERABLES F inal Result Performing Organization Address [facility]/ZIP Co de Phone Number [facility] [address] [place] [address], [facility] [phone] * (ABNORMAL) Glucose, Nova Meter (01/21/2025 6:12 PM EDT) POC-GLUCOSE 262(H) 70 - 110 mg/dL 01/21/2025 6:21 PM EDT [facility] Comment:In the event of poor peripheral blood flow, venous or arterial blood should be used due to the potential of erroneous results. Wire Spooler [id number] 01/21/2025 6:21 PM EDT [facility] Blood WHOLE BLOOD / Unknown 01/21/2025 6:12 PM EDT 01/21/2025 6:21 PM EDT [facility] - 01/21/2025 6:21 PM EDT Notified RN/MD us Agustin Andrew MD POINT OF CARE TEST ORDERABLES F inal Result [facility] [address] [phone] * (ABNORMAL) Glucose, Nova Meter (01/21/2025 12:03 PM EDT) POC-GLUCOSE 217(H) 70 - 110 mg/dL 01/21/2025 12:14 PM EDT [facility] Comment:In the event of poor peripheral blood flow, venous or arterial blood should be used due to the potential of erroneous results. Wire Spooler [id number] 01/21/2025 12:14 PM EDT [facility] Blood WHOLE BLOOD / Unknown 01/21/2025 12:03 PM EDT 01/21/2025 12:14 PM EDT Narrative [facility] - 01/21/2025 12:14 PM EDT Notified RN/MD Agustin Andrew MD POINT OF CARE TEST ORDERABLES F inal Result [facility] [address] [phone] * XR chest AP portable (01/21/2025 6:55 AM EDT) Anatomical Region Laterality Modality Chest X-Ray 01/21/2025 9:10 AM EDT Impressions 01/21/2025 12:04 PM EDT Persistent but improved atelectasis or pneumonia. Follow-up to complete resolution recommended. Images reviewed, interpreted, and dictated by Dr. Juan Bonilla. Transcribed by Rukhsana Vidal PA-C. Narrative 01/21/2025 12:04 PM EDT PORTABLE CHEST 01/21/2025 6:50 AM HISTORY: Acute shortness of breath. COMPARISON: One day prior. FINDINGS: The patient is status post sternotomy for CABG. The heart is proper size. The mediastinum is unremarkable. There is left base atelectasis. There is decreased lung volumes. There is persistent but improved atelectasis or pneumonia. There is no pneumothorax. The osseous structures are unremarkable. The feeding tube courses below the diaphragm. Procedure Note Juan Bonilla MD - 01/21/2025 PORTABLE CHEST 01/21/2025 6:50 AM HISTORY: Acute shortness of breath. COMPARISON: One day prior. FINDINGS: The patient is status post sternotomy for CABG. The heart is proper size. The mediastinum is unremarkable. There is left base atelectasis. There is decreased lung volumes. There is persistent but improved atelectasis or pneumonia. There is no pneumothorax. The osseous structures are unremarkable. The feeding tube courses below the diaphragm. IMPRESSION: Persistent but improved atelectasis or pneumonia. Follow-up to complete resolution recommended. Images reviewed, interpreted, and dictated by Dr. Juan Bonilla. Transcribed by Rukhsana Vidal PA-C. us Aki Espinosa APRN [facility] DIAGNOSTIC IMAGING ORDERAB LES Final Result * (ABNORMAL) Glucose, Nova Meter (01/21/2025 5:13 AM EDT) POC-GLUCOSE 155(H) 70 - 110 mg/dL 01/21/2025 5:21 AM EDT [facility] Comment:In the event of poor peripheral blood flow, venous or arterial blood should be used due to the potential of erroneous results. Wire Spooler [id number] 01/21/2025 5:21 AM EDT [facility] Blood WHOLE BLOOD / Unknown 01/21/2025 5:13 AM EDT 01/21/2025 5:21 AM EDT Narrative [facility] - 01/21/2025 5:21 AM EDT Notified RN/MD us Agustin Andrew MD POINT OF CARE TEST ORDERABLES F inal Result [facility] [address] [phone] * (ABNORMAL) Glucose, Nova Meter (01/21/2025 12:03 AM EDT) POC-GLUCOSE 123(H) 70 - 110 mg/dL 01/21/2025 12:11 AM EDT [facility] Comment:In the event of poor peripheral blood flow, venous or arterial blood should be used due to the potential of erroneous results. Wire Spooler [id number] 01/21/2025 12:11 AM EDT [facility] Blood WHOLE BLOOD / Unknown 01/21/2025 12:03 AM EDT 01/21/2025 12:11 AM EDT Narrative [facility] - 01/21/2025 12:11 AM EDT Notified RN/ us Agustin Andrew MD POINT OF CARE TEST ORDERABLES F inal Result Performing Organization Address City/[facility] Co de Phone Number [facility] [address] [phone] * (ABNORMAL) Glucose, Nova Meter (01/20/2025 7:57 PM EDT) POC-GLUCOSE 198(H) 70 - 110 mg/dL 01/20/2025 8:06 PM EDT [facility] Comment:In the event of poor peripheral blood flow, venous or arterial blood should be used due to the potential of erroneous results. Wire Spooler [id number] 01/20/2025 8:06 PM EDT [facility] Blood WHOLE BLOOD / Unknown 01/20/2025 7:57 PM EDT 01/20/2025 8:06 PM EDT Narrative [facility] - 01/20/2025 8:06 PM EDT Notified RN/ us Agustin Andrew MD POINT OF CARE TEST ORDERABLES F inal Result Performing Organization Address City/[facility]/ZIP Co de Phone Number [facility] [address] [phone] * (ABNORMAL) Glucose, Nova Meter (01/20/2025 3:59 PM EDT) POC-GLUCOSE 269(H) 70 - 110 mg/dL 01/20/2025 4:08 PM EDT [facility] Comment:In the event of poor peripheral blood flow, venous or arterial blood should be used due to the potential of erroneous results. Wire Spooler [id number] 01/20/2025 4:08 PM EDT [facility] Blood WHOLE BLOOD / Unknown 01/20/2025 3:59 PM EDT 01/20/2025 4:08 PM EDT Narrative [facility] - 01/20/2025 4:08 PM EDT Notified RN/MD Agustin Andrew MD POINT OF CARE TEST ORDERABLES F inal Result Performing Organization Address City/[facility]/ZIP Co de Phone Number [facility] [address] [phone] * (ABNORMAL) Glucose, Nova Meter (01/20/2025 10:37 AM EDT) [facility] Signature POC-GLUCOSE 201(H) 70 - 110 mg/dL 01/20/2025 10:46 AM EDT [facility] Comment:In the event of poor peripheral blood flow, venous or arterial blood should be used due to the potential of erroneous results. Wire Spooler [id number] 01/20/2025 10:46 AM EDT [facility] Blood WHOLE BLOOD / Unknown 01/20/2025 10:37 AM EDT 01/20/2025 10:46 AM EDT Narrative [facility] - 01/20/2025 10:46 AM EDT Notified RN/MD Agustin Andrew MD POINT OF CARE TEST ORDERABLES F inal Result [facility] [address] [phone] * XR chest AP portable (01/20/2025 6:28 AM EDT) Anatomical Region Laterality Modality Chest X-Ray 01/20/2025 8:29 AM EDT Impressions 01/20/2025 8:31 AM EDT Small left effusion with left basilar airspace disease likely representing pneumonia. Images reviewed, interpreted, and dictated by Dr. Juan Bonilla. Transcribed by Xavi Arroyo PA-C. Narrative 01/20/2025 8:31 AM EDT PORTABLE CHEST HISTORY: Shortness of breath. COMPARISON: PCXR from the previous day. FINDINGS: The heart is stable in size. The patient is status post CABG. There is no pneumothorax. There is left basilar airspace disease and a small left effusion. Procedure Note Juan Bonilla MD - 01/20/2025 PORTABLE CHEST HISTORY: Shortness of breath. COMPARISON: PCXR from the previous day. FINDINGS: The heart is stable in size. The patient is status post CABG. There is no pneumothorax. There is left basilar airspace disease and a small left effusion. IMPRESSION: Small left effusion with left basilar airspace disease likely representing pneumonia. Images reviewed, interpreted, and dictated by Dr. Juan Bonilla. Transcribed by Xavi Arroyo PA-C. us Aki DIAS DIAGNOSTIC IMAGING ORDERAB LES Final Result * Phosphorus (01/20/2025 5:18 AM EDT) Phosphorus 3.0 2.5 - 4.5 mg/dL 01/20/2025 6:53 AM EDT [facility] Blood Venipuncture / Unknown 01/20/2025 5:18 AM EDT 01/20/2025 6:42 AM EDT Narrative [facility] - 01/20/2025 6:53 AM EDT Specimen slightly hemolyzed us Agustin Andrew MD LAB BLOOD ORDERABLES Final Resu lt [facility] [address] [phone] * Magnesium (01/20/2025 5:18 AM EDT) Magnesium 1.7 1.6 - 2.6 mg/dL 01/20/2025 6:54 AM EDT [facility] Blood Venipuncture / Unknown 01/20/2025 5:18 AM EDT 01/20/2025 6:42 AM EDT Narrative [facility] - 01/20/2025 6:54 AM EDT Specimen slightly hemolyzed us Agustin Andrew MD LAB BLOOD ORDERABLES Final Resu lt [facility] [address] [place] [address], [facility] [phone] * (ABNORMAL) Basic Metabolic Panel (01/20/2025 5:18 AM EDT) Sodium 136 136 - 145 meq/L 01/20/2025 6:53 AM EDT [facility] Potassium 3.6 3.4 - 5.1 meq/L 01/20/2025 6:53 AM EDT [facility] CO2 18(L) 22 - 29 meq/L 01/20/2025 6:53 AM EDT [facility] Chloride 104 98 - 112 meq/L 01/20/2025 6:53 AM EDT [facility] Glucose 199(H) 82 - 115 mg/dL 01/20/2025 6:53 AM EDT [facility] BUN 28.0(H) 9.8 - 20.1 mg/dL 01/20/2025 6:53 AM EDT [facility] Creatinine 0.90 0.50 - 1.20 mg/dL 01/20/2025 6:53 AM EDT [facility] BUN/Creatinine 31(H) 8 - 20 01/20/2025 6:53 AM EDT [facility] Calcium 8.9 8.4 - 10.2 mg/dL 01/20/2025 6:53 AM EDT [facility] Anion Gap 18(H) 4 - 12 01/20/2025 6:53 AM EDT [facility] eGFR (mL/min/1.73m2) 67 >=60 mL/min/1.7 3m2 01/20/2025 6:53 AM EDT [facility] Comment:ESTIMATED GFR IS NOT ACCURATE CREATININE CLEARANCE IN PREDICTING GLOMERULAR FILTRATION RATE. ESTIMATED GFR IS NOT APPLICABLE FOR DIALYSIS PATIENTS. Osmolality Calc 283.0 mOsm/kg 6:53 AM EDT [facility] Blood Venipuncture / Unknown 01/20/2025 5:18 AM EDT 01/20/2025 6:42 AM EDT Narrative [facility] - 01/20/2025 6:53 AM EDT Specimen slightly hemolyzed us Agustin Andrew MD LAB BLOOD ORDERABLES Final Resu lt [facility] [address] [phone] * (ABNORMAL) CBC with automated diff (01/20/2025 5:12 AM EDT) WBC 13.2(H) 4.0 - 10.0 K/ L 01/20/2025 6:02 AM EDT [facility] RBC 3.27(L) 3.93 - 5.22 M/ L 01/20/2025 6:02 AM EDT [facility] Hemoglobin 9.5(L) 11.2 - 15.7 GM/DL 01/20/2025 6:02 AM EDT [facility] Hematocrit 29.8(L) 34.1 - 44.9 % 01/20/2025 6:02 AM EDT [facility] MCV 91 79 - 95 fL 01/20/2025 6:02 AM EDT [facility] MCH 29.1 25.6 - 32.2 pg 01/20/2025 6:02 AM EDT [facility] MCHC 31.9(L) 32.2 - 35.5 GM/DL 01/20/2025 6:02 AM EDT [facility] RDW 15.5(H) 11.7 - 14.4 % 01/20/2025 6:02 AM EDT [facility] Platelets 254 140 - 375 K/CU MM 01/20/2025 6:02 AM EDT [facility] MPV 11.0 9.4 - 12.3 fL 01/20/2025 6:02 AM EDT [facility] % Neutros 75(H) 34 - 71 % 01/20/2025 6:02 AM EDT [facility] % Lymphs 16(L) 19 - 52 % 01/20/2025 6:02 AM EDT [facility] % Monos 7 5 - 13 % 01/20/2025 6:02 AM EDT [facility] % Eos 0.2(L) 1.0 - 6.0 % 01/20/2025 6:02 AM EDT [facility] % Baso 0 0 - 1 % 01/20/2025 6:02 AM EDT [facility] NRBC Absolute <0.01 0 - 0.012 K/ul 01/20/2025 6:02 AM EDT [facility] # Neutros 9.95(H) 1.56 - 6.13 K/ L 01/20/2025 6:02 AM EDT [facility] # Lymphs 2.06 1.18 - 3.74 K/ L 01/20/2025 6:02 AM EDT [facility] # Monos 0.98(H) 0.24 - 0.86 K/ L 01/20/2025 6:02 AM EDT [facility] # Eos <0.03(L) 0.04 - 0.36 K/ L 01/20/2025 6:02 AM EDT [facility] # Baso <0.03 0.01 - 0.08 K/ L 01/20/2025 6:02 AM EDT [facility] % Imm Grans 1.30(H) 0.01 - 0.43 % 01/20/2025 6:02 AM EDT [facility] # IG 0.17(H) 0.00 - 0.03 K/uL 01/20/2025 6:02 AM EDT [facility] Blood Venipuncture / Unknown 01/20/2025 5:12 AM EDT 01/20/2025 5:56 AM EDT [facility] - 01/20/2025 6:02 AM EDT When CBC w/ Auto Diff is ordered the lab will add a Manual Differential as a quality check at no additional charge if: Lymphocytes greater than seventy five percent with normal or increased WBC Monocytes greater than Fifteen percent Basophil greater than four percent Bands >10% or several immature myeloids are seen on scan Blast? Flag noted Atypical Lymph flag noted Agustin Andrew MD LAB BLOOD ORDERABLES Final Resu lt [facility] [address] [place] [address], [facility] [phone] * (ABNORMAL) Glucose, Nova Meter (01/20/2025 5:03 AM EDT) POC-GLUCOSE 204(H) 70 - 110 mg/dL 01/20/2025 5:12 AM EDT [facility] Comment:In the event of poor peripheral blood flow, venous or arterial blood should be used due to the potential of erroneous results. Wire Spooler [id number] 01/20/2025 5:12 AM EDT [facility] Blood WHOLE BLOOD / Unknown 01/20/2025 5:03 AM EDT 01/20/2025 5:12 AM EDT [facility] - 01/20/2025 5:12 AM EDT Notified RN/MD Agustin Andrew MD POINT OF CARE TEST ORDERABLES F inal Result Performing Organization Address City/[facility]/ZIP Co de Phone Number [facility] [address] [place] [address], [facility] [phone] * (ABNORMAL) Glucose, Nova Meter (01/19/2025 11:42 PM EDT) Pathologist [facility] POC-GLUCOSE 164(H) 70 - 110 mg/dL 01/19/2025 11:51 PM EDT [facility] Comment:In the event of poor peripheral blood flow, venous or arterial blood should be used due to the potential of erroneous results. Wire Spooler [id number] 01/19/2025 11:51 PM EDT [facility] Blood WHOLE BLOOD / Unknown 01/19/2025 11:42 PM EDT 01/19/2025 11:51 PM EDT Narrative [facility] - 01/19/2025 11:51 PM EDT Notified RN/MD Agustin Andrew MD POINT OF CARE TEST ORDERABLES F inal Result Performing Organization Address [facility] Co de Phone Number [facility] [address] [place] [address], [facility] [phone] * (ABNORMAL) Glucose, Nova Meter (01/19/2025 5:21 PM EDT) [facility] POC-GLUCOSE 230(H) 70 - 110 mg/dL 01/19/2025 5:31 PM EDT [facility] Comment:In the event of poor peripheral blood flow, venous or arterial blood should be used due to the potential of erroneous results. Wire Spooler [id number] 01/19/2025 5:31 PM EDT [facility] Blood WHOLE BLOOD / Unknown 01/19/2025 5:21 PM EDT 01/19/2025 5:31 PM EDT Narrative [facility] - 01/19/2025 5:31 PM EDT Received Meds us Agustin Andrew MD POINT OF CARE TEST ORDERABLES F inal Result Performing Organization Address [facility] Co de Phone Number [facility] [address] [phone] * (ABNORMAL) Basic Metabolic Panel (01/19/2025 12:45 PM EDT) [facility] Sodium 142 136 - 145 meq/L 01/19/2025 1:06 PM EDT [facility] Potassium 4.5 3.4 - 5.1 meq/L 01/19/2025 1:06 PM EDT [facility] CO2 23 22 - 29 meq/L 01/19/2025 1:06 PM EDT [facility] Chloride 103 98 - 112 meq/L 01/19/2025 1:06 PM EDT [facility] Glucose 246(H) 82 - 115 mg/dL 01/19/2025 1:06 PM EDT [facility] BUN 26.7(H) 9.8 - 20.1 mg/dL 01/19/2025 1:06 PM EDT [facility] Creatinine 1.06 0.50 - 1.20 mg/dL 01/19/2025 1:06 PM EDT [facility] BUN/Creatinine 25(H) 8 - 20 01/19/2025 1:06 PM EDT [facility] Calcium 9.0 8.4 - 10.2 mg/dL 01/19/2025 1:06 PM EDT [facility] Anion Gap 21(H) 4 - 12 01/19/2025 1:06 PM EDT [facility] eGFR (mL/min/1.73m2) 55(L) >=60 mL/min/1.7 3m2 01/19/2025 1:06 PM EDT [facility] Comment:ESTIMATED GFR IS NOT ACCURATE CREATININE CLEARANCE IN PREDICTING GLOMERULAR FILTRATION RATE. ESTIMATED GFR IS NOT APPLICABLE FOR DIALYSIS PATIENTS. Osmolality Calc 296.3 mOsm/kg 1:06 PM EDT [facility] Blood Venipuncture / Unknown 01/19/2025 12:45 PM EDT 01/19/2025 12:45 PM EDT us Agustin Andrew MD LAB BLOOD ORDERABLES Final Resu lt [facility] [address] [phone] * (ABNORMAL) Glucose, Nova Meter (01/19/2025 12:09 PM EDT) POC-GLUCOSE 222(H) 70 - 110 mg/dL 01/19/2025 12:23 PM EDT [facility] Comment:In the event of poor peripheral blood flow, venous or arterial blood should be used due to the potential of erroneous results. Wire Spooler [id number] 01/19/2025 12:23 PM EDT [facility] Blood WHOLE BLOOD / Unknown 01/19/2025 12:09 PM EDT 01/19/2025 12:23 PM EDT Narrative [facility] - 01/19/2025 12:23 PM EDT Received Meds us Agustin Andrew MD POINT OF CARE TEST ORDERABLES F inal Result [facility] [address] [place] [address], [facility] [phone] * (ABNORMAL) ABG (01/19/2025 10:37 AM EDT) pH, Arterial 7.44 7.35 - 7.45 01/19/2025 10:47 AM EDT [facility] pCO2, Arterial 44 35 - 45 mm Hg 01/19/2025 10:47 AM EDT [facility] pO2, Arterial 98 80 - 100 mm Hg 01/19/2025 10:47 AM EDT [facility] HCO3, Arterial 30(H) 20 - 26 mmol/L 01/19/2025 10:47 AM EDT [facility] Base Excess, Arterial 5.4(H) -2.0 - 2.0 mmol/L 01/19/2025 10:47 AM EDT [facility] O2 Sat, Arterial 98.3 95.0 - 100.0 % 01/19/2025 10:47 AM EDT [facility] [facility] CTO2 ARTERIAL 14.2 mmol/L 01/19/2025 10:47 AM EDT [facility] THB ARTERIAL 10.3(L) 12.0 - 18.0 g/dL 01/19/2025 10:47 AM EDT [facility] PaO2/FIO2 calculated 244.0 01/19/2025 10:47 AM EDT [facility] COLLECTION SITE Right Radial 01/19/2025 10:47 AM EDT [facility] Arterial Puncture Yes 01/19/2025 10:47 AM EDT [facility] Blood Gas O2 Delivery Device NIV 01/19/2025 10:47 AM EDT [facility] Blood Gas PT Temperature C 37.0 01/19/2025 10:47 AM EDT [facility] Naif's Test Acceptable 01/19/2025 10:47 AM EDT [facility] ABG Number of Draw Attempts 1 01/19/2025 10:47 AM EDT [facility] Set Rate 12.0 01/19/2025 10:47 AM EDT [facility] IPAP 12 01/19/2025 10:47 AM EDT [facility] EPAP 6 01/19/2025 10:47 AM EDT [facility] FIO2 40.0 01/19/2025 10:47 AM EDT [facility] Blood Gas Temperature Corrected Results No No 01/19/2025 10:47 AM EDT [facility] Blood, Arterial Collection / Unknown 01/19/2025 10:37 AM EDT 01/19/2025 10:47 AM EDT us Donnie Jeffery MD LAB BLOOD ORDERABLES Final Resu lt Performing Organization Address [facility]/ZIP Co de Phone Number [facility] [address] [phone] * ECG 12 lead (01/19/2025 10:00 AM EDT) SYSTOLIC BLOOD PRESSURE (MCT) 149 mmHg GE MUSE DIASTOLIC BLOOD PRESSURE (MCT) 65 mmHg GE MUSE VENTRICULAR RATE EKG/MIN 91 BPM GE MUSE ATRIAL RATE (MCT) 91 BPM GE MUSE ND Interval 186 ms GE MUSE QRS-INTERVAL (MSEC) 80 ms GE MUSE QT Interval 354 ms GE MUSE QTC Interval 435 ms GE MUSE P Chaplin 84 degrees GE MUSE R AXIS (MCT) 87 degrees GE MUSE T Wave Chaplin 106 degrees GE MUSE [place] Diagnosis Normal sinus rhythm Anterior infarct (cited on or before 17-JAN-2025 ) Confirmed by LESLIE AYERS M.D. ([id number]) on 01/19/2025 11:39:13 AM GE MUSE 01/19/2025 10:0 0 AM EDT 01/19/2025 11:39 AM EDT us Agustin Andrew MD ECG ORDERABLES Final Result Performing Organization Address City/[facility]/ZIP Co de Phone Number GE MUSE * (ABNORMAL) CBC - Hemogram (01/19/2025 8:41 AM EDT) WBC 17.8(H) 4.0 - 10.0 K/ L 01/19/2025 9:00 AM EDT [facility] RBC 3.52(L) 3.93 - 5.22 M/ L 01/19/2025 9:00 AM EDT [facility] Hemoglobin 10.1(L) 11.2 - 15.7 GM/DL 01/19/2025 9:00 AM EDT [facility] Hematocrit 31.8(L) 34.1 - 44.9 % 01/19/2025 9:00 AM EDT [facility] MCV 90 79 - 95 fL 01/19/2025 9:00 AM EDT [facility] MCH 28.7 25.6 - 32.2 pg 01/19/2025 9:00 AM EDT [facility] MCHC 31.8(L) 32.2 - 35.5 GM/DL 01/19/2025 9:00 AM EDT [facility] RDW 16.2(H) 11.7 - 14.4 % 01/19/2025 9:00 AM EDT [facility] Platelets 328 140 - 375 K/CU MM 01/19/2025 9:00 AM EDT [facility] MPV 10.7 9.4 - 12.3 fL 01/19/2025 9:00 AM EDT [facility] Blood Venipuncture / Unknown 01/19/2025 8:41 AM EDT 01/19/2025 8:55 AM EDT us Agustin Andrew MD LAB BLOOD ORDERABLES Final Resu lt [facility] [address] [place], [place] [address] [phone] * (ABNORMAL) Glucose, Nova Meter (01/19/2025 5:17 AM EDT) POC-GLUCOSE 155(H) 70 - 110 mg/dL 01/19/2025 5:26 AM EDT [facility] Comment:In the event of poor peripheral blood flow, venous or arterial blood should be used due to the potential of erroneous results. Wire Spooler [id number] 01/19/2025 5:26 AM EDT [facility] Blood WHOLE BLOOD / Unknown 01/19/2025 5:17 AM EDT 01/19/2025 5:26 AM EDT Narrative [facility] - 01/19/2025 5:26 AM EDT Received Meds Agustin Andrew MD POINT OF CARE TEST ORDERABLES F inal Result [facility] [address] [phone] * XR chest AP portable (01/19/2025 3:21 AM EDT) Anatomical Region Laterality Modality Chest X-Ray 01/19/2025 9:22 AM EDT Impressions 01/19/2025 9:47 AM EDT 1. Stable airspace opacity in the medial left lung base. 2. Interval extubation. Images reviewed, interpreted, and dictated by Dr. Clint Gaspar. Transcribed by Va Cevallos PA-C. Narrative 01/19/2025 9:47 AM EDT PORTABLE CHEST HISTORY: Acute respiratory failure. COMPARISON: One day prior. FINDINGS: The heart is mildly enlarged in size. The mediastinum is unremarkable. There is airspace opacity within the medial left lung base, stable. There are mild chronic changes throughout the lungs. There is no pneumothorax. Status post median sternotomy. The feeding tube lies off the inferior margin of the film. There has been interval extubation. Procedure Note Clint Gaspar MD - 01/19/2025 PORTABLE CHEST HISTORY: Acute respiratory failure. COMPARISON: One day prior. FINDINGS: The heart is mildly enlarged in size. The mediastinum is unremarkable. There is airspace opacity within the medial left lung base, stable. There are mild chronic changes throughout the lungs. There is no pneumothorax. Status post median sternotomy. The feeding tube lies off the inferior margin of the film. There has been interval extubation. IMPRESSION: 1. Stable airspace opacity in the medial left lung base. 2. Interval extubation. Images reviewed, interpreted, and dictated by Dr. Clint Gaspar. Transcribed by Va Cevallos PA-C. us Aki Espinosa APRN IMG DIAGNOSTIC IMAGING ORDERAB LES Final Result * (ABNORMAL) Glucose, Nova Meter (01/19/2025 12:50 AM EDT) Pathologist [facility] POC-GLUCOSE 138(H) 70 - 110 mg/dL 01/19/2025 12:59 AM EDT [facility] Comment:In the event of poor peripheral blood flow, venous or arterial blood should be used due to the potential of erroneous results. Wire Spooler [id number] 01/19/2025 12:59 AM EDT [facility] Blood WHOLE BLOOD / Unknown 01/19/2025 12:50 AM EDT 01/19/2025 12:59 AM EDT us Agustin Andrew MD POINT OF CARE TEST ORDERABLES F inal Result [facility] [address] [place] [address] * ECG 12 lead (01/18/2025 10:06 PM EDT) SYSTOLIC BLOOD PRESSURE (MCT) 178 mmHg GE MUSE DIASTOLIC BLOOD PRESSURE (MCT) 76 mmHg GE MUSE VENTRICULAR RATE EKG/MIN 82 BPM GE MUSE ATRIAL RATE (MCT) 82 BPM GE MUSE ND Interval 198 ms GE MUSE QRS-INTERVAL (MSEC) 88 ms GE MUSE QT Interval 668 ms GE MUSE QTC Interval 780 ms GE MUSE P Chaplin 31 degrees GE MUSE R AXIS (MCT) 112 degrees GE MUSE T Wave Chaplin 71 degrees GE MUSE [place] Diagnosis Normal sinus rhythm Baseline artifact Rightward axis Nonspecific T wave abnormality Abnormal ECG When compared with ECG of 18-JAN-2025 07:32, No significant change was found Confirmed by Erik Urrutia ([id number]) on 01/19/2025 6:33:00 PM GE MUSE 01/18/2025 10:0 6 PM EDT 01/19/2025 6:33 PM EDT us Ana Grover MD ECG ORDERABLES Final Result GE MUSE * (ABNORMAL) Glucose, Nova Meter (01/18/2025 5:51 PM EDT) POC-GLUCOSE 240(H) 70 - 110 mg/dL 01/18/2025 6:00 PM EDT [facility] Comment:In the event of poor peripheral blood flow, venous or arterial blood should be used due to the potential of erroneous results. Wire Spooler [id number] 01/18/2025 6:00 PM EDT [facility] Blood WHOLE BLOOD / Unknown 01/18/2025 5:51 PM EDT 01/18/2025 6:00 PM EDT Narrative [facility] - 01/18/2025 6:00 PM EDT Notified RN/MD us Ana Grover MD POINT OF CARE TEST ORDERABLES Final Result Performing Organization Address [facility] Co de Phone Number [facility] [address] [phone] * (ABNORMAL) Glucose, Nova Meter (01/18/2025 11:17 AM EDT) POC-GLUCOSE 204(H) 70 - 110 mg/dL 01/18/2025 11:26 AM EDT [facility] Comment:In the event of poor peripheral blood flow, venous or arterial blood should be used due to the potential of erroneous results. Wire Spooler [id number] 01/18/2025 11:26 AM EDT [facility] Blood WHOLE BLOOD / Unknown 01/18/2025 11:17 AM EDT 01/18/2025 11:26 AM EDT us Ana Grover MD POINT OF CARE TEST ORDERABLES Final Result [facility] [address] [phone] * ECG 12 lead (01/18/2025 7:32 AM EDT) SYSTOLIC BLOOD PRESSURE (MCT) 149 mmHg GE MUSE DIASTOLIC BLOOD PRESSURE (MCT) 66 mmHg GE MUSE VENTRICULAR RATE EKG/MIN 88 BPM GE MUSE ATRIAL RATE (MCT) 88 BPM GE MUSE ND Interval 172 ms GE MUSE QRS-INTERVAL (MSEC) 84 ms GE MUSE QT Interval 622 ms GE MUSE QTC Interval 752 ms GE MUSE P Chaplin 18 degrees GE MUSE R AXIS (MCT) 98 degrees GE MUSE T Wave Chaplin 46 degrees GE MUSE [place] Diagnosis Normal sinus rhythm Baseline artifact Rightward axis Cannot rule out Anteroseptal infarct (cited on or before 17-JAN-2025) Nonspecific T wave abnormality Prolonged QT Abnormal ECG When compared with ECG of 17-JAN-2025 09:14, Vent. rate has decreased Confirmed by Erik Urrutia ([id number]) on 01/18/2025 5:39:09 PM GE MUSE 01/18/2025 7:32 AM EDT 01/18/2025 5:39 PM EDT us Ana Grover MD ECG ORDERABLES Final Result GE MUSE * (ABNORMAL) Glucose, Nova Meter (01/18/2025 6:09 AM EDT) Pathologist [facility] POC-GLUCOSE 188(H) 70 - 110 mg/dL 01/18/2025 6:18 AM EDT [facility] Comment:In the event of poor peripheral blood flow, venous or arterial blood should be used due to the potential of erroneous results. Wire Spooler [id number] 01/18/2025 6:18 AM EDT [facility] Blood WHOLE BLOOD / Unknown 01/18/2025 6:09 AM EDT 01/18/2025 6:18 AM EDT Narrative [facility] - 01/18/2025 6:18 AM EDT Received Meds us Ana Grover MD POINT OF CARE TEST ORDERABLES Final Result [facility] [address] [phone] * (ABNORMAL) Basic Metabolic Panel (01/18/2025 4:29 AM EDT) Sodium 140 136 - 145 meq/L 01/18/2025 4:56 AM EDT [facility] Potassium 3.7 3.4 - 5.1 meq/L 01/18/2025 4:56 AM EDT [facility] CO2 31(H) 22 - 29 meq/L 01/18/2025 4:56 AM EDT [facility] Chloride 96(L) 98 - 112 meq/L 01/18/2025 4:56 AM EDT [facility] Glucose 156(H) 82 - 115 mg/dL 01/18/2025 4:56 AM EDT [facility] BUN 30.1(H) 9.8 - 20.1 mg/dL 01/18/2025 4:56 AM EDT [facility] Creatinine 1.11 0.50 - 1.20 mg/dL 01/18/2025 4:56 AM EDT [facility] BUN/Creatinine 27(H) 8 - 20 01/18/2025 4:56 AM EDT [facility] Calcium 9.0 8.4 - 10.2 mg/dL 01/18/2025 4:56 AM EDT [facility] Anion Gap 17(H) 4 - 12 01/18/2025 4:56 AM EDT [facility] eGFR (mL/min/1.73m2) 52(L) >=60 mL/min/1.7 3m2 01/18/2025 4:56 AM EDT [facility] Comment:ESTIMATED GFR IS NOT ACCURATE CREATININE CLEARANCE IN PREDICTING GLOMERULAR FILTRATION RATE. ESTIMATED GFR IS NOT APPLICABLE FOR DIALYSIS PATIENTS. Osmolality Calc 288.8 mOsm/kg 4:56 AM EDT [facility] Blood Venipuncture / Unknown 01/18/2025 4:29 AM EDT 01/18/2025 4:33 AM EDT us Ismaeel Thony DO LAB BLOOD ORDERABLES Final Re sult [facility] [address] [phone] * (ABNORMAL) CBC - Hemogram (SJ-BKR) (01/18/2025 4:29 AM EDT) WBC 14.3(H) 4.0 - 10.0 K/ L 01/18/2025 4:37 AM EDT [facility] RBC 3.19(L) 3.93 - 5.22 M/ L 01/18/2025 4:37 AM EDT [facility] Hemoglobin 9.3(L) 11.2 - 15.7 GM/DL 01/18/2025 4:37 AM EDT [facility] Hematocrit 28.3(L) 34.1 - 44.9 % 01/18/2025 4:37 AM EDT [facility] MCV 89 79 - 95 fL 01/18/2025 4:37 AM EDT [facility] MCH 29.2 25.6 - 32.2 pg 01/18/2025 4:37 AM EDT [facility] MCHC 32.9 32.2 - 35.5 GM/DL 01/18/2025 4:37 AM EDT [facility] RDW 15.9(H) 11.7 - 14.4 % 01/18/2025 4:37 AM EDT [facility] Platelets 250 140 - 375 K/CU MM 01/18/2025 4:37 AM EDT [facility] MPV 11.0 9.4 - 12.3 fL 01/18/2025 4:37 AM EDT [facility] Blood Venipuncture / Unknown 01/18/2025 4:29 AM EDT 01/18/2025 4:33 AM EDT us Ismaeel Thony DO LAB BLOOD ORDERABLES Final Re sult [facility] [address] [phone] * Magnesium (01/18/2025 4:29 AM EDT) Magnesium 1.6 1.6 - 2.6 mg/dL 01/18/2025 4:56 AM EDT [facility] Blood Venipuncture / Unknown 01/18/2025 4:29 AM EDT 01/18/2025 4:33 AM EDT Ismaeel Thony DO LAB BLOOD ORDERABLES Final Re sult [facility] [address] [phone] * XR chest AP portable (01/18/2025 3:52 AM EDT) Anatomical Region Laterality Modality Chest X-Ray 01/18/2025 7:57 AM EDT Impressions 01/18/2025 8:32 AM EDT Medial left basilar opacity. Images reviewed, interpreted, and dictated by Dr. Clint Gaspar. Transcribed by Xavi Arroyo PA-C. Narrative 01/18/2025 8:32 AM EDT PORTABLE CHEST HISTORY: Intubation. COMPARISON: PCXR from the previous day. FINDINGS: The heart is stable in size. There are chronic changes in both lungs. There is airspace opacity and atelectasis of the medial left base. There is no pneumothorax. The support devices are in good position. Procedure Note Clint Gaspar MD - 01/18/2025 PORTABLE CHEST HISTORY: Intubation. COMPARISON: PCXR from the previous day. FINDINGS: The heart is stable in size. There are chronic changes in both lungs. There is airspace opacity and atelectasis of the medial left base. There is no pneumothorax. The support devices are in good position. IMPRESSION: Medial left basilar opacity. Images reviewed, interpreted, and dictated by Dr. Clint Gaspar. Transcribed by Xavi Arroyo PA-C. Aki Espinosa APRN IMG DIAGNOSTIC IMAGING ORDERAB LES Final Result * (ABNORMAL) Glucose, Nova Meter (01/18/2025 12:22 AM EDT) POC-GLUCOSE 170(H) 70 - 110 mg/dL 01/18/2025 12:31 AM EDT [facility] Comment:In the event of poor peripheral blood flow, venous or arterial blood should be used due to the potential of erroneous results. Wire Spooler [id number] 01/18/2025 12:31 AM EDT [facility] Blood WHOLE BLOOD / Unknown 01/18/2025 12:22 AM EDT 01/18/2025 12:31 AM EDT [facility] - 01/18/2025 12:31 AM EDT Notified RN/MD us Ana Grover MD POINT OF CARE TEST ORDERABLES Final Result Performing Organization Address [facility]/ZIP Co de Phone Number [facility] [address] [phone] * (ABNORMAL) Glucose, Nova Meter (01/17/2025 5:40 PM EDT) POC-GLUCOSE 316(H) 70 - 110 mg/dL 01/17/2025 5:48 PM EDT [facility] Comment:In the event of poor peripheral blood flow, venous or arterial blood should be used due to the potential of erroneous results. Wire Spooler [id number] 01/17/2025 5:48 PM EDT [facility] Blood WHOLE BLOOD / Unknown 01/17/2025 5:40 PM EDT 01/17/2025 5:48 PM EDT [facility] - 01/17/2025 5:48 PM EDT Received Meds us Ana Grover MD POINT OF CARE TEST ORDERABLES Final Result [facility] [address] [phone] * (ABNORMAL) Glucose, Nova Meter (01/17/2025 11:38 AM EDT) [facility] POC-GLUCOSE 168(H) 70 - 110 mg/dL 01/17/2025 11:47 AM EDT [facility] Comment:In the event of poor peripheral blood flow, venous or arterial blood should be used due to the potential of erroneous results. Wire Spooler [id number] 01/17/2025 11:47 AM EDT [facility] Blood WHOLE BLOOD / Unknown 01/17/2025 11:38 AM EDT 01/17/2025 11:47 AM EDT Narrative [facility] - 01/17/2025 11:47 AM EDT Notified RN/MD us Ana Grover MD POINT OF CARE TEST ORDERABLES Final Result [facility] [address] [phone] * ECG 12 lead (01/17/2025 9:14 AM EDT) Pathologist [facility] SYSTOLIC BLOOD PRESSURE (MCT) 158 mmHg GE MUSE DIASTOLIC BLOOD PRESSURE (MCT) 71 mmHg GE MUSE VENTRICULAR RATE EKG/MIN 131 BPM GE MUSE ATRIAL RATE (MCT) 131 BPM GE MUSE ND Interval 104 ms GE MUSE QRS-INTERVAL (MSEC) 88 ms GE MUSE QT Interval 394 ms GE MUSE QTC Interval 581 ms GE MUSE R AXIS (MCT) 121 degrees GE MUSE T Wave Chaplin 104 degrees GE MUSE [place] Diagnosis Sinus tachycardia with short ND with premature atrial complexes Left posterior fascicular block Anterior infarct , age undetermined Abnormal ECG When compared with ECG of 15-JAN-2025 09:08, premature atrial complexes are now present Left posterior fascicular block is now present Anterior infarct is now present T wave inversion no longer evident in Inferior leads T wave inversion less evident in Lateral leads Confirmed by Naren Walsh ([id number]) on 01/17/2025 3:59:19 PM GE MUSE 01/17/2025 9:14 AM EDT 01/17/2025 3:59 PM EDT us Ana Grover MD ECG ORDERABLES Final Result GE MUSE * (ABNORMAL) Glucose, Nova Meter (01/17/2025 5:07 AM EDT) POC-GLUCOSE 150(H) 70 - 110 mg/dL 01/17/2025 5:16 AM EDT [facility] Comment:In the event of poor peripheral blood flow, venous or arterial blood should be used due to the potential of erroneous results. Wire Spooler [id number] 01/17/2025 5:16 AM EDT [facility] Blood WHOLE BLOOD / Unknown 01/17/2025 5:07 AM EDT 01/17/2025 5:16 AM EDT Narrative [facility] - 01/17/2025 5:16 AM EDT Notified RN/MD Ana Grover MD POINT OF CARE TEST ORDERABLES Final Result Performing Organization Address [facility] Co de Phone Number [facility] [address] [phone] * XR chest AP portable (01/17/2025 4:45 AM EDT) Anatomical Region Laterality Modality Chest X-Ray 01/17/2025 8:06 AM EDT Impressions 01/17/2025 8:27 AM EDT Mild pulmonary vascular congestion. Images reviewed, interpreted, and dictated by Dr. Clint Gaspar. Transcribed by Danyel Ziegler PA-C Narrative 01/17/2025 8:27 AM EDT PORTABLE CHEST 01/17/2025 4:41 AM HISTORY: Acute respiratory failure. COMPARISON: January 16, 2025. FINDINGS: The patient is rotated to the right. The heart is mildly enlarged. The mediastinum is unremarkable . There is mild pulmonary vascular congestion. No focal consolidation is identified in the lungs. There is no pneumothorax . Status post median sternotomy. Endotracheal tube tip terminates 1.5 cm above the fab. Feeding tube courses below the inferior margin of the radiograph. Procedure Note Clint Gaspar MD - 01/17/2025 PORTABLE CHEST 01/17/2025 4:41 AM HISTORY: Acute respiratory failure. COMPARISON: January 16, 2025. FINDINGS: The patient is rotated to the right. The heart is mildly enlarged. The mediastinum is unremarkable . There is mild pulmonary vascular congestion. No focal consolidation is identified in the lungs. There is no pneumothorax . Status post median sternotomy. Endotracheal tube tip terminates 1.5 cm above the fab. Feeding tube courses below the inferior margin of the radiograph. IMPRESSION: Mild pulmonary vascular congestion. Images reviewed, interpreted, and dictated by Dr. Clint Gaspar. Transcribed by Danyel Ziegler PA-C Aki Jesús GUZMAN IMG DIAGNOSTIC IMAGING ORDERAB LES Final Result * (ABNORMAL) Basic Metabolic Panel (01/17/2025 3:31 AM EDT) Sodium 140 136 - 145 meq/L 01/17/2025 5:14 AM EDT [facility] Potassium 3.5 3.4 - 5.1 meq/L 01/17/2025 5:14 AM EDT [facility] CO2 35(H) 22 - 29 meq/L 01/17/2025 5:14 AM EDT [facility] Chloride 95(L) 98 - 112 meq/L 01/17/2025 5:14 AM T [facility] Glucose 143(H) 82 - 115 mg/dL 01/17/2025 5:14 AM EDT [facility] BUN 33.0(H) 9.8 - 20.1 mg/dL 01/17/2025 5:14 AM EDT [facility] Creatinine 1.43(H) 0.50 - 1.20 mg/dL 01/17/2025 5:14 AM EDT [facility] BUN/Creatinine 23(H) 8 - 20 01/17/2025 5:14 AM EDT [facility] Calcium 8.8 8.4 - 10.2 mg/dL 01/17/2025 5:14 AM EDT [facility] Anion Gap 14(H) 4 - 12 01/17/2025 5:14 AM EDT [facility] eGFR (mL/min/1.73m2) 39(L) >=60 mL/min/1.7 3m2 01/17/2025 5:14 AM EDT [facility] Comment:ESTIMATED GFR IS NOT ACCURATE CREATININE CLEARANCE IN PREDICTING GLOMERULAR FILTRATION RATE. ESTIMATED GFR IS NOT APPLICABLE FOR DIALYSIS PATIENTS. Osmolality Calc 289.1 mOsm/kg 5:14 AM EDT [facility] Blood Venipuncture / Unknown 01/17/2025 3:31 AM EDT 01/17/2025 3:35 AM EDT us Ismaeel Thony DO LAB BLOOD ORDERABLES Final Re sult [facility] [address] [phone] * (ABNORMAL) CBC - Hemogram (SJ-BKR) (01/17/2025 3:31 AM EDT) WBC 11.8(H) 4.0 - 10.0 K/ L 01/17/2025 3:37 AM EDT [facility] RBC 2.57(L) 3.93 - 5.22 M/ L 01/17/2025 3:37 AM EDT [facility] Hemoglobin 7.6(L) 11.2 - 15.7 GM/DL 01/17/2025 3:37 AM EDT [facility] Hematocrit 23.1(L) 34.1 - 44.9 % 01/17/2025 3:37 AM EDT [facility] MCV 90 79 - 95 fL 01/17/2025 3:37 AM EDT [facility] MCH 29.6 25.6 - 32.2 pg 01/17/2025 3:37 AM EDT [facility] MCHC 32.9 32.2 - 35.5 GM/DL 01/17/2025 3:37 AM EDT [facility] RDW 16.2(H) 11.7 - 14.4 % 01/17/2025 3:37 AM EDT [facility] Platelets 212 140 - 375 K/CU MM 01/17/2025 3:37 AM EDT [facility] MPV 10.7 9.4 - 12.3 fL 01/17/2025 3:37 AM EDT [facility] Blood Venipuncture / Unknown 01/17/2025 3:31 AM EDT 01/17/2025 3:35 AM EDT us Ismaeel Thony DO LAB BLOOD ORDERABLES Final Re sult [facility] [address] [phone] * Magnesium (01/17/2025 3:31 AM EDT) Magnesium 1.9 1.6 - 2.6 mg/dL 01/17/2025 4:14 AM EDT [facility] Blood Venipuncture / Unknown 01/17/2025 3:31 AM EDT 01/17/2025 3:35 AM EDT [facility] Thony DO LAB BLOOD ORDERABLES Final Re sult Performing Organization Address [facility] Co de Phone Number [facility] [address] [phone] * (ABNORMAL) Glucose, Nova Meter (01/16/2025 11:52 PM EDT) POC-GLUCOSE 258(H) 70 - 110 mg/dL 01/17/2025 12:01 AM EDT [facility] Comment:In the event of poor peripheral blood flow, venous or arterial blood should be used due to the potential of erroneous results. Wire Spooler [id number] 01/17/2025 12:01 AM EDT [facility] Blood WHOLE BLOOD / Unknown 01/16/2025 11:52 PM EDT 01/17/2025 12:01 AM EDT Narrative [facility] - 01/17/2025 12:01 AM EDT Notified RN/MD Ana Grover MD POINT OF CARE TEST ORDERABLES Final Result [facility] [address] [phone] * (ABNORMAL) Glucose, Nova Meter (01/16/2025 5:39 PM EDT) [facility] POC-GLUCOSE 355(H) 70 - 110 mg/dL 01/16/2025 5:47 PM EDT [facility] Comment:In the event of poor peripheral blood flow, venous or arterial blood should be used due to the potential of erroneous results. Wire Spooler [id number] 01/16/2025 5:47 PM EDT [facility] Blood WHOLE BLOOD / Unknown 01/16/2025 5:39 PM EDT 01/16/2025 5:47 PM EDT Narrative [facility] - 01/16/2025 5:47 PM EDT Received Meds us Ana Grover MD POINT OF CARE TEST ORDERABLES Final Result Performing Organization Address [facility] Co de Phone Number [facility] [address] [phone] * Potassium (01/16/2025 12:17 PM EDT) [facility] Potassium 3.4 3.4 - 5.1 meq/L 01/16/2025 12:50 PM EDT [facility] Blood Venipuncture / Unknown 01/16/2025 12:17 PM EDT 01/16/2025 12:30 PM EDT Narrative [facility] - 01/16/2025 12:50 PM EDT Specimen slightly hemolyzed us Donnie Jeffery MD LAB BLOOD ORDERABLES Final Resu lt Performing Organization Address [facility]/ZIP Co de Phone Number [facility] [address] [phone] * Phosphorus (01/16/2025 12:17 PM EDT) [facility] Phosphorus 4.5 2.5 - 4.5 mg/dL 01/16/2025 12:50 PM EDT [facility] Blood Venipuncture / Unknown 01/16/2025 12:17 PM EDT 01/16/2025 12:30 PM EDT Narrative [facility] - 01/16/2025 12:50 PM EDT Specimen slightly hemolyzed us Donnie Jeffery MD LAB BLOOD ORDERABLES Final Resu lt Performing Organization Address [facility] de Phone Number [facility] [address] [phone] * (ABNORMAL) Glucose, Nova Meter (01/16/2025 11:36 AM EDT) [facility] Signature POC-GLUCOSE 154(H) 70 - 110 mg/dL 01/16/2025 11:46 AM EDT [facility] Comment:In the event of poor peripheral blood flow, venous or arterial blood should be used due to the potential of erroneous results. Wire Spooler [id number] 01/16/2025 11:46 AM EDT [facility] Blood WHOLE BLOOD / Unknown 01/16/2025 11:36 AM EDT 01/16/2025 11:46 AM EDT Narrative [facility] - 01/16/2025 11:46 AM EDT Notified RN/MD us Ana Grover MD POINT OF CARE TEST ORDERABLES Final Result Performing Organization Address [facility] Co de Phone Number [facility] [address] [phone] * XR chest AP portable (01/16/2025 4:58 AM EDT) Anatomical Region Laterality Modality Chest X-Ray 01/16/2025 2:42 PM EDT Impressions 01/16/2025 4:32 PM EDT No interval change. Images reviewed, interpreted, and dictated by MD Chelly More 01/16/2025 4:32 PM EDT PORTABLE CHEST X-RAY INDICATION: Shortness of breath. FINDINGS: A portable view of the chest was obtained. Comparison is made to a prior exam dated 01/15/2025. Patient is again noted to be status post median sternotomy. No change in support tubes or lines. Heart size is stable. Interstitial opacities and left basilar airspace disease are unchanged. No pneumothorax. Procedure Note Fab Smith MD - 01/16/2025 PORTABLE CHEST X-RAY INDICATION: Shortness of breath. FINDINGS: A portable view of the chest was obtained. Comparison is made to a prior exam dated 01/15/2025. Patient is again noted to be status post median sternotomy. No change in support tubes or lines. Heart size is stable. Interstitial opacities and left basilar airspace disease are unchanged. No pneumothorax. IMPRESSION: No interval change. Images reviewed, interpreted, and dictated by Fab Smith MD Aki Espinosa APRN IMG DIAGNOSTIC IMAGING ORDERAB LES Final Result * (ABNORMAL) Phosphorus (01/16/2025 3:36 AM EDT) [facility] Phosphorus 5.7(H) 2.5 - 4.5 mg/dL 01/16/2025 9:38 AM EDT [facility] Blood Venipuncture / Unknown 01/16/2025 3:36 AM EDT 01/16/2025 3:41 AM EDT Donnie Jeffery MD LAB BLOOD ORDERABLES Final Resu lt [facility] [address] [phone] * (ABNORMAL) Basic Metabolic Panel (01/16/2025 3:36 AM EDT) [facility] Sodium 142 136 - 145 meq/L 01/16/2025 4:05 AM EDT [facility] Potassium 2.9(L) 3.4 - 5.1 meq/L 01/16/2025 4:05 AM EDT [facility] CO2 29 22 - 29 meq/L 01/16/2025 4:05 AM EDT [facility] Chloride 98 98 - 112 meq/L 01/16/2025 4:05 AM EDT [facility] Glucose 161(H) 82 - 115 mg/dL 01/16/2025 4:05 AM EDT [facility] BUN 34.9(H) 9.8 - 20.1 mg/dL 01/16/2025 4:05 AM EDT [facility] Creatinine 1.95(H) 0.50 - 1.20 mg/dL 01/16/2025 4:05 AM EDT [facility] BUN/Creatinine 18 8 - 20 01/16/2025 4:05 AM EDT [facility] Calcium 8.8 8.4 - 10.2 mg/dL 01/16/2025 4:05 AM T [facility] Anion Gap 18(H) 4 - 12 01/16/2025 4:05 AM T [facility] eGFR (mL/min/1.73m2) 27(L) >=60 mL/min/1.7 3m2 01/16/2025 4:05 AM EDT [facility] Comment:ESTIMATED GFR IS NOT ACCURATE CREATININE CLEARANCE IN PREDICTING GLOMERULAR FILTRATION RATE. ESTIMATED GFR IS NOT APPLICABLE FOR DIALYSIS PATIENTS. Osmolality Calc 294.5 mOsm/kg 4:05 AM [facility] Blood Venipuncture / Unknown 01/16/2025 3:36 AM EDT 01/16/2025 3:41 AM EDT us Ismaeel Thony DO LAB BLOOD ORDERABLES Final Re sult [facility] [address] [phone] * (ABNORMAL) CBC - Hemogram (SJ-BKR) (01/16/2025 3:36 AM EDT) WBC 11.2(H) 4.0 - 10.0 K/ L 01/16/2025 3:49 AM EDT [facility] RBC 2.76(L) 3.93 - 5.22 M/ L 01/16/2025 3:49 AM EDT [facility] Hemoglobin 8.2(L) 11.2 - 15.7 GM/DL 01/16/2025 3:49 AM EDT [facility] Hematocrit 25.6(L) 34.1 - 44.9 % 01/16/2025 3:49 AM EDT [facility] MCV 93 79 - 95 fL 01/16/2025 3:49 AM EDT [facility] MCH 29.7 25.6 - 32.2 pg 01/16/2025 3:49 AM EDT [facility] MCHC 32.0(L) 32.2 - 35.5 GM/DL 01/16/2025 3:49 AM EDT [facility] RDW 16.2(H) 11.7 - 14.4 % 01/16/2025 3:49 AM EDT [facility] Platelets 198 140 - 375 K/CU MM 01/16/2025 3:49 AM EDT [facility] MPV 10.8 9.4 - 12.3 fL 01/16/2025 3:49 AM EDT [facility] Blood Venipuncture / Unknown 01/16/2025 3:36 AM EDT 01/16/2025 3:41 AM EDT us Ismaeel Thony DO LAB BLOOD ORDERABLES Final Re sult [facility] [address] [phone] * Magnesium (01/16/2025 3:36 AM EDT) Magnesium 1.6 1.6 - 2.6 mg/dL 01/16/2025 4:05 AM EDT [facility] Blood Venipuncture / Unknown 01/16/2025 3:36 AM EDT 01/16/2025 3:41 AM EDT us Ismaeel Thony DO LAB BLOOD ORDERABLES Final Re sult [facility] [address] [place] [address], [facility] [phone] * (ABNORMAL) Glucose, Nova Meter (01/16/2025 12:25 AM EDT) POC-GLUCOSE 196(H) 70 - 110 mg/dL 01/16/2025 12:34 AM EDT [facility] Comment:In the event of poor peripheral blood flow, venous or arterial blood should be used due to the potential of erroneous results. Wire Spooler [id number] 01/16/2025 12:34 AM EDT [facility] Blood WHOLE BLOOD / Unknown 01/16/2025 12:25 AM EDT 01/16/2025 12:34 AM EDT [facility] - 01/16/2025 12:34 AM EDT Notified RN/MD us Ana Grover MD POINT OF CARE TEST ORDERABLES Final Result Performing Organization Address [facility] Co de Phone Number [facility] [address] [phone] * (ABNORMAL) Glucose, Nova Meter (01/15/2025 5:07 PM EDT) POC-GLUCOSE 226(H) 70 - 110 mg/dL 01/15/2025 5:16 PM EDT [facility] Comment:In the event of poor peripheral blood flow, venous or arterial blood should be used due to the potential of erroneous results. Wire Spooler [id number] 01/15/2025 5:16 PM EDT [facility] Blood WHOLE BLOOD / Unknown 01/15/2025 5:07 PM EDT 01/15/2025 5:16 PM EDT [facility] - 01/15/2025 5:16 PM EDT Received Meds us Ana Grover MD POINT OF CARE TEST ORDERABLES Final Result Performing Organization Address [facility]/ZIP Co de Phone Number [facility] [address] [place] [address], [facility] [phone] * (ABNORMAL) Glucose, Nova Meter (01/15/2025 3:25 PM EDT) Pathologist [facility] POC-GLUCOSE 202(H) 70 - 110 mg/dL 01/15/2025 3:33 PM EDT [facility] Comment:In the event of poor peripheral blood flow, venous or arterial blood should be used due to the potential of erroneous results. Wire Spooler [id number] 01/15/2025 3:33 PM EDT [facility] Blood WHOLE BLOOD / Unknown 01/15/2025 3:25 PM EDT 01/15/2025 3:33 PM EDT Narrative [facility] - 01/15/2025 3:33 PM EDT Notified RN/MD us Ana Grover MD POINT OF CARE TEST ORDERABLES Final Result [facility] [address] [phone] * ECG 12 lead (01/15/2025 9:08 AM EDT) Pathologist [facility] SYSTOLIC BLOOD PRESSURE (MCT) 121 mmHg GE MUSE DIASTOLIC BLOOD PRESSURE (MCT) 59 mmHg GE MUSE VENTRICULAR RATE EKG/MIN 93 BPM GE MUSE ATRIAL RATE (MCT) 93 BPM GE MUSE ND Interval 176 ms GE MUSE QRS-INTERVAL (MSEC) 88 ms GE MUSE QT Interval 346 ms GE MUSE QTC Interval 430 ms GE MUSE P Chaplin 44 degrees GE MUSE R AXIS (MCT) 79 degrees GE MUSE T Wave Chaplin -151 degrees GE MUSE [place] Diagnosis Normal sinus rhythm ST & T wave abnormality, consider inferolateral ischemia Abnormal ECG When compared with ECG of 14-JAN-2025 21:04, premature ventricular complexes are no longer present Confirmed by Trupti Robertson ([id number]) on 01/20/2025 2:14:49 PM GE MUSE 01/15/2025 9:08 AM EDT 01/20/2025 2:14 PM EDT Ana Grover MD ECG ORDERABLES Final Result GE MUSE * (ABNORMAL) ABG (01/15/2025 8:33 AM EDT) pH, Arterial 7.53(H) 7.35 - 7.45 01/15/2025 8:37 AM EDT [facility] pCO2, Arterial 40 35 - 45 mm Hg 01/15/2025 8:37 AM EDT [facility] pO2, Arterial 88 80 - 100 mm Hg 01/15/2025 8:37 AM EDT [facility] HCO3, Arterial 33(H) 20 - 26 mmol/L 01/15/2025 8:37 AM EDT [facility] Base Excess, Arterial 9.4(H) -2.0 - 2.0 mmol/L 01/15/2025 8:37 AM EDT [facility] O2 Sat, Arterial 98.1 95.0 - 100.0 % 01/15/2025 8:37 AM EDT [facility] CTO2 ARTERIAL 5.7 mmol/L 01/15/2025 8:37 AM EDT [facility] THB ARTERIAL 9.2(L) 12.0 - 18.0 g/dL 01/15/2025 8:37 AM EDT [facility] PaO2/FIO2 calculated 219.0 01/15/2025 8:37 AM EDT [facility] COLLECTION SITE Right Brachial 01/15/2025 8:37 AM EDT [facility] Arterial Puncture Yes 01/15/2025 8:37 AM EDT [facility] Blood Gas O2 Delivery Device Ventilator 01/15/2025 8:37 AM EDT [facility] Blood Gas PEEP 5.0 01/15/2025 8:37 AM EDT [facility] Blood Gas Tidal Volume 315.0 01/15/2025 8:37 AM EDT [facility] Blood Gas PT Temperature C 37.0 01/15/2025 8:37 AM EDT [facility] Naif's Test Not Applicable 01/16/20 8:37 AM EDT [facility] Vent Mode Volume Control Plus 01/15/2025 8:37 AM EDT [facility] ABG Number of Draw Attempts 1 01/15/2025 8:37 AM EDT [facility] Set Rate 14.0 01/15/2025 8:37 AM EDT [facility] FIO2 40.0 01/15/2025 8:37 AM EDT [facility] Blood Gas Temperature Corrected Results No No 01/15/2025 8:37 AM EDT [facility] Blood, Arterial ENTIRE RIGHT UPPER ARM / Unknown 01/15/2025 8:33 AM EDT 01/15/2025 8:37 AM EDT us Donnie Jeffery MD LAB BLOOD ORDERABLES Final Resu lt [facility] [address] [phone] * XR KUB PORTABLE (01/15/2025 6:23 AM EDT) Anatomical Region Laterality Modality Abdomen X-Ray 01/15/2025 8:32 AM EDT Impressions 01/15/2025 8:58 AM EDT Feeding tube tip terminates at the junction of the second and third portions of the duodenum. Images reviewed, interpreted, and dictated by Dr. Clint Gaspar. Transcribed by Danyel Ziegler PA-C Narrative 01/15/2025 8:58 AM EDT KUB HISTORY: Feeding tube placement. COMPARISON: None. FINDINGS: The feeding tube is identified below the diaphragm. The bowel gas pattern is nonspecific. Procedure Note Clint Gaspar MD - 01/15/2025 KUB HISTORY: Feeding tube placement. COMPARISON: None. FINDINGS: The feeding tube is identified below the diaphragm. The bowel gas pattern is nonspecific. IMPRESSION: Feeding tube tip terminates at the junction of the second and third portions of the duodenum. Images reviewed, interpreted, and dictated by Dr. Clint Gaspar. Transcribed by Danyel Ziegler PA-C us Donnie Jeffery MD IMG DIAGNOSTIC IMAGING ORDERABL ES Final Result * Glucose, Nova Meter (01/15/2025 5:43 AM EDT) POC-GLUCOSE 99 70 - 110 mg/dL 01/15/2025 5:52 AM EDT [facility] Comment:In the event of poor peripheral blood flow, venous or arterial blood should be used due to the potential of erroneous results. Wire Spooler [id number] 01/15/2025 5:52 AM EDT [facility] Blood WHOLE BLOOD / Unknown 01/15/2025 5:43 AM EDT 01/15/2025 5:52 AM EDT Narrative [facility] - 01/15/2025 5:52 AM EDT Notified RN/MD Ana Grover MD POINT OF CARE TEST ORDERABLES Final Result [facility] [address] [phone] * XR chest AP portable (01/15/2025 4:53 AM EDT) Anatomical Region Laterality Modality Chest X-Ray 01/15/2025 6:48 AM EDT Impressions 01/15/2025 6:53 AM EDT Persistent but improving left lung base pneumonia. Images reviewed, interpreted, and dictated by Dr. Juan Bonilla. Transcribed by Va Cevallos PA-C. Narrative 01/15/2025 6:53 AM EDT PORTABLE CHEST HISTORY: Ongoing respiratory failure. COMPARISON: One day prior. FINDINGS: The heart is normal in size. The mediastinum is unremarkable. There is persistent but improving left lung base pneumonia. There is no pneumothorax. The NG tube has been removed. The [place] feeding tube courses below the diaphragm. Procedure Note Juan Bonilla MD - 01/15/2025 PORTABLE CHEST HISTORY: Ongoing respiratory failure. COMPARISON: One day prior. FINDINGS: The heart is normal in size. The mediastinum is unremarkable. There is persistent but improving left lung base pneumonia. There is no pneumothorax. The NG tube has been removed. The [place] feeding tube courses below the diaphragm. IMPRESSION: Persistent but improving left lung base pneumonia. Images reviewed, interpreted, and dictated by Dr. Juan Bonilla. Transcribed by Va Cevallos PA-C. Aki Espinosa THOMAS IMG DIAGNOSTIC IMAGING ORDERAB LES Final Result * (ABNORMAL) Basic Metabolic Panel (01/15/2025 3:37 AM EDT) Sodium 145 136 - 145 meq/L 01/15/2025 4:20 AM EDT [facility] Potassium 3.6 3.4 - 5.1 meq/L 01/15/2025 4:20 AM T [facility] CO2 28 22 - 29 meq/L 01/15/2025 4:20 AM [facility] Chloride 101 98 - 112 meq/L 01/15/2025 4:20 AM [facility] Glucose 95 82 - 115 mg/dL 01/15/2025 4:20 AM [facility] BUN 34.1(H) 9.8 - 20.1 mg/dL 01/15/2025 4:20 AM [facility] Creatinine 2.23(H) 0.50 - 1.20 mg/dL 01/15/2025 4:20 AM [facility] BUN/Creatinine 15 8 - 20 01/15/2025 4:20 AM [facility] Calcium 8.7 8.4 - 10.2 mg/dL 01/15/2025 4:20 AM [facility] Anion Gap 20(H) 4 - 12 01/15/2025 4:20 AM [facility] eGFR (mL/min/1.73m2) 23(L) >=60 mL/min/1.7 3m2 01/15/2025 4:20 AM [facility] Comment:ESTIMATED GFR IS NOT ACCURATE CREATININE CLEARANCE IN PREDICTING GLOMERULAR FILTRATION RATE. ESTIMATED GFR IS NOT APPLICABLE FOR DIALYSIS PATIENTS. Osmolality Calc 296.2 mOsm/kg 4:20 AM [facility] Blood Venipuncture / Unknown 01/15/2025 3:37 AM EDT 01/15/2025 3:53 AM EDT us Ismaeel Thony DO LAB BLOOD ORDERABLES Final Re sult [facility] [address] [phone] * (ABNORMAL) CBC - Hemogram (SJ-BKR) (01/15/2025 3:37 AM EDT) WBC 12.7(H) 4.0 - 10.0 K/ L 01/15/2025 4:02 AM EDT [facility] RBC 3.07(L) 3.93 - 5.22 M/ L 01/15/2025 4:02 AM EDT [facility] Hemoglobin 9.1(L) 11.2 - 15.7 GM/DL 01/15/2025 4:02 AM EDT [facility] Hematocrit 28.1(L) 34.1 - 44.9 % 01/15/2025 4:02 AM EDT [facility] MCV 92 79 - 95 fL 01/15/2025 4:02 AM EDT [facility] MCH 29.6 25.6 - 32.2 pg 01/15/2025 4:02 AM EDT [facility] MCHC 32.4 32.2 - 35.5 GM/DL 01/15/2025 4:02 AM EDT [facility] RDW 16.5(H) 11.7 - 14.4 % 01/15/2025 4:02 AM EDT [facility] Platelets 247 140 - 375 K/CU MM 01/15/2025 4:02 AM EDT [facility] MPV 11.0 9.4 - 12.3 fL 01/15/2025 4:02 AM EDT [facility] Blood Venipuncture / Unknown 01/15/2025 3:37 AM EDT 01/15/2025 3:52 AM EDT us Ismaeel Thony DO LAB BLOOD ORDERABLES Final Re sult [facility] [address] [phone] * Magnesium (01/15/2025 3:37 AM EDT) [facility] Magnesium 1.9 1.6 - 2.6 mg/dL 01/15/2025 4:20 AM EDT [facility] Blood Venipuncture / Unknown 01/15/2025 3:37 AM EDT 01/15/2025 3:53 AM EDT us Carmelita Spencer DO LAB BLOOD ORDERABLES Final Re sult Performing Organization Address City/[facility]/ZIP Co de Phone Number [facility] [address] [phone] * (ABNORMAL) Glucose, Nova Meter (01/15/2025 12:22 AM EDT) [facility] POC-GLUCOSE 158(H) 70 - 110 mg/dL 01/15/2025 12:31 AM EDT [facility] Comment:In the event of poor peripheral blood flow, venous or arterial blood should be used due to the potential of erroneous results. Wire Spooler [id number] 01/15/2025 12:31 AM EDT [facility] Blood WHOLE BLOOD / Unknown 01/15/2025 12:22 AM EDT 01/15/2025 12:31 AM EDT Narrative [facility] - 01/15/2025 12:31 AM EDT Notified RN/MD us Ana Grover MD POINT OF CARE TEST ORDERABLES Final Result [facility] [address] [phone] * ECG 12 lead (01/14/2025 9:04 PM EDT) [facility] SYSTOLIC BLOOD PRESSURE (MCT) 116 mmHg GE MUSE DIASTOLIC BLOOD PRESSURE (MCT) 58 mmHg GE MUSE VENTRICULAR RATE EKG/MIN 87 BPM GE MUSE ATRIAL RATE (MCT) 87 BPM GE MUSE ND Interval 166 ms GE MUSE QRS-INTERVAL (MSEC) 80 ms GE MUSE QT Interval 364 ms GE MUSE QTC Interval 438 ms GE MUSE P Chaplin 67 degrees GE MUSE R AXIS (MCT) 91 degrees GE MUSE T Wave Chaplin 143 degrees GE MUSE [place] Diagnosis Sinus rhythm with occasional premature ventricular complexes Rightward axis Cannot rule out Anterior infarct (cited on or before 12-JAN-2025) ST & T wave abnormality, consider inferolateral ischemia Abnormal ECG When compared with ECG of 13-JAN-2025 21:37, premature ventricular complexes are now present aberrant conduction is no longer present Questionable change in initial forces of Anterior leads ST elevation now present in Inferior leads Confirmed by Naren Walsh ([id number]) on 01/17/2025 8:00:29 AM GE MUSE 01/14/2025 9:04 PM EDT 01/17/2025 8:00 AM EDT us Ana Grover MD ECG ORDERABLES Final Result GE MUSE * (ABNORMAL) Glucose, Nova Meter (01/14/2025 5:45 PM EDT) Pathologist [facility] POC-GLUCOSE 240(H) 70 - 110 mg/dL 01/14/2025 5:54 PM EDT [facility] Comment:In the event of poor peripheral blood flow, venous or arterial blood should be used due to the potential of erroneous results. Wire Spooler [id number] 01/14/2025 5:54 PM EDT [facility] Blood WHOLE BLOOD / Unknown 01/14/2025 5:45 PM EDT 01/14/2025 5:54 PM EDT Narrative [facility] - 01/14/2025 5:54 PM EDT Notified RN/MD us Ana Grover MD POINT OF CARE TEST ORDERABLES Final Result [facility] [address] [phone] * (ABNORMAL) Glucose, Nova Meter (01/14/2025 12:39 PM EDT) POC-GLUCOSE 172(H) 70 - 110 mg/dL 01/14/2025 12:48 PM EDT [facility] Comment:In the event of poor peripheral blood flow, venous or arterial blood should be used due to the potential of erroneous results. Wire Spooler [id number] 01/14/2025 12:48 PM EDT [facility] Blood WHOLE BLOOD / Unknown 01/14/2025 12:39 PM EDT 01/14/2025 12:48 PM EDT Narrative [facility] - 01/14/2025 12:48 PM EDT Notified RN/MD Ana Grover MD POINT OF CARE TEST ORDERABLES Final Result [facility] [address] [phone] * Pneumonia PCR Panel (01/14/2025 11:36 AM EDT) ACINETOBACTER CALCOACETICUS-REMY ANNII COMPLEX Not detected Not detected 01/15/2025 6:32 AM EDT [facility] ENTEROBACTER CLOACAE COMPLEX Not detected Not detected 01/15/2025 6:32 AM EDT [facility] ESCHERICHIA COLI Not detected Not detected 01/15/2025 6:32 AM EDT [facility] HAEMOPHILUS INFLUENZAE Not detected Not detected 01/15/2025 6:32 AM EDT [facility] KLEBSIELLA AEROGENES Not detected Not detected 01/15/2025 6:32 AM EDT [facility] KLEBSIELLA OXYTOCA Not detected Not detected 01/15/2025 6:32 AM EDT [facility] KLEBSIELLA PNEUMONIAE GROUP Not detected Not detected 01/15/2025 6:32 AM EDT [facility] MORAXELLA CATARRHALIS Not detected Not detected 01/15/2025 6:32 AM EDT [facility] PROTEUS Not detected Not detected 01/15/2025 6:32 AM EDT [facility] PSEUDOMONAS AERUGINOSA Not detected Not detected 01/15/2025 6:32 AM EDT [facility] SERRATIA MARCESCENS Not detected Not detected 01/15/2025 6:32 AM EDT [facility] STAPHYLOCOCCUS AUREUS Not detected Not detected 01/15/2025 6:32 AM EDT [facility] STREPTOCOCCUS AGALACTIAE (GROUP B) Not detected Not detected 01/15/2025 6:32 AM EDT [facility] STREPTOCOCCUS PNEUMONIAE Not detected Not detected 01/15/2025 6:32 AM EDT [facility] STREPTOCOCCUS PYOGENES (GROUP A) Not detected Not detected 01/15/2025 6:32 AM EDT [facility] CTX-M Non Applicable Not detected 01/15/2025 6:32 AM EDT [facility] IMP Non Applicable Not detected 01/15/2025 6:32 AM EDT [facility] KPC Non Applicable Not detected 01/15/2025 6:32 AM EDT [facility] MEC A/C and MREJ Non Applicable Not detected 01/15/2025 6:32 AM EDT [facility] NDM Non Applicable Not detected 01/15/2025 6:32 AM EDT [facility] [id number] Non Applicable Not detected 01/15/2025 6:32 AM EDT [facility] VIM Non Applicable Not detected 01/15/2025 6:32 AM EDT [facility] CHLAMYDIA PNEUMONIAE Not detected Not detected 01/15/2025 6:32 AM EDT [facility] LEGIONELLA PNEUMOPHILA Not detected Not detected 01/15/2025 6:32 AM EDT [facility] MYCOPLASMA PNEUMONIAE Not detected Not detected 01/15/2025 6:32 AM EDT [facility] ADENOVIRUS Not detected Not detected 01/15/2025 6:32 AM EDT [facility] CORONAVIRUS (NOT COVID19) Not detected Not detected 01/15/2025 6:32 AM EDT [facility] HUMAN METAPNEUMOVIRUS Not detected Not detected 01/15/2025 6:32 AM EDT [facility] HUMAN RHINOVIRUS/ENTEROV IRUS Not detected Not detected 01/15/2025 6:32 AM EDT [facility] INFLUENZA A Not detected Not detected 01/15/2025 6:32 AM EDT [facility] INFLUENZA B Not detected Not detected 01/15/2025 6:32 AM EDT [facility] PARAINFLUENZA VIRUS Not detected Not detected 01/15/2025 6:32 AM EDT [facility] RESPIRATORY SYNCYTIAL VIRUS Not detected Not detected 01/15/2025 6:32 AM EDT [facility] BAL STRUCTURE OF LOWER LOBE OF LEFT LUNG / Unknown 01/14/2025 11:36 AM EDT 01/14/2025 11:36 AM EDT Narrative [facility] - 01/15/2025 6:32 AM EDT Antimicrobial resistance can occur via multiple mechanisms. A NOT DETECTED result for a genetic marker of antimicrobial resistance does not indicate susceptibility to associated antimicrobial drugs or drug classes. A DETECTED result for a genetic marker of antimicrobial resistance cannot be definitively linked to the microorganism(s)detected. Culture is required to obtain isolates for antimicrobial susceptibility testing and [employer]atro[employer] Pneumonia Panel results should be used in conjunction with culture results for determination of susceptibility or resistance. us Tawnya Amaro MD MICROBIOLOGY - GENERAL ORDERAB LES Edited Result - Final [facility] [address] [phone] * SPIN/CONCENTRATION CHARGE (01/14/2025 11:33 AM EDT) Concentration charged Done 01/15/2025 2:14 PM EDT [facility] BAL STRUCTURE OF LOWER LOBE OF LEFT LUNG / Unknown 01/14/2025 11:33 AM EDT 01/14/2025 11:33 AM EDT us Donnie Jeffery MD MICROBIOLOGY - GENERAL ORDERABL ES Final Result [facility] [address] [phone] * Respiratory Culture (01/14/2025 11:33 AM EDT) Result No growth 01/16/2025 9:04 AM EDT [facility] Gram Stain Result Rare WBCs 01/16/2025 9:04 AM EDT [facility] Gram Stain Result No organisms seen 01/16/2025 9:04 AM EDT [facility] BAL STRUCTURE OF LOWER LOBE OF LEFT LUNG / Unknown 01/14/2025 11:33 AM EDT 01/14/2025 11:33 AM EDT Narrative [facility] - 01/16/2025 9:04 AM EDT The pneumonia PCR panel may detect organisms that do not grow on the culture. Correlate PCR, culture, and patient condition. Rule out and consider respiratory tract colonization,particularly in tracheostomy patients. us Tawnya Amaro MD MICROBIOLOGY - GENERAL ORDERAB LES Final Result [facility] [address] [phone] * XR chest AP portable (01/14/2025 5:53 AM EDT) Anatomical Region Laterality Modality Chest X-Ray 01/14/2025 7:50 AM EDT Impressions 01/14/2025 7:58 AM EDT Medial left basilar airspace disease which may represent pneumonia or aspiration. Images reviewed, interpreted, and dictated by Dr. Clint Gaspar. Transcribed by Danyel Ziegler PA-C Narrative 01/14/2025 7:58 AM EDT PORTABLE CHEST 01/14/2025 5:50 AM HISTORY: Acute respiratory failure. COMPARISON: January 13, 2025. FINDINGS: The heart is mildly enlarged. The mediastinum is unremarkable . Airspace disease within the medial left lung base silhouetting the left hemidiaphragm is unchanged. Right lung is clear. There is no pneumothorax . Endotracheal tube is unchanged. Nasogastric tube courses off the inferior margin of the radiograph. Procedure Note Clint Gaspar MD - 01/14/2025 PORTABLE CHEST 01/14/2025 5:50 AM HISTORY: Acute respiratory failure. COMPARISON: January 13, 2025. FINDINGS: The heart is mildly enlarged. The mediastinum is unremarkable . Airspace disease within the medial left lung base silhouetting the left hemidiaphragm is unchanged. Right lung is clear. There is no pneumothorax . Endotracheal tube is unchanged. Nasogastric tube courses off the inferior margin of the radiograph. IMPRESSION: Medial left basilar airspace disease which may represent pneumonia or aspiration. Images reviewed, interpreted, and dictated by Dr. Clint Gaspar. Transcribed by Danyel Ziegler PA-C us Aki Espinosa APRN IMG DIAGNOSTIC IMAGING ORDERAB LES Final Result * (ABNORMAL) Glucose, Nova Meter (01/14/2025 5:24 AM EDT) POC-GLUCOSE 140(H) 70 - 110 mg/dL 01/14/2025 5:33 AM EDT [facility] Comment:In the event of poor peripheral blood flow, venous or arterial blood should be used due to the potential of erroneous results. Wire Spooler [id number] 01/14/2025 5:33 AM EDT [facility] Blood WHOLE BLOOD / Unknown 01/14/2025 5:24 AM EDT 01/14/2025 5:33 AM EDT Ana Grover MD POINT OF CARE TEST ORDERABLES Final Result [facility] [address] [phone] * (ABNORMAL) Comprehensive metabolic panel (01/14/2025 3:53 AM EDT) Sodium 146(H) 136 - 145 meq/L 01/14/2025 4:27 AM EDT [facility] Potassium 2.9(L) 3.4 - 5.1 meq/L 01/14/2025 4:27 AM EDT [facility] Chloride 98 98 - 112 meq/L 01/14/2025 4:27 AM EDT [facility] CO2 33(H) 22 - 29 meq/L 01/14/2025 4:27 AM EDT [facility] Calcium 8.8 8.4 - 10.2 mg/dL 01/14/2025 4:27 AM EDT [facility] Glucose 130(H) 82 - 115 mg/dL 01/14/2025 4:27 AM EDT [facility] BUN 25.9(H) 9.8 - 20.1 mg/dL 01/14/2025 4:27 AM [facility] Creatinine 1.56(H) 0.50 - 1.20 mg/dL 01/14/2025 4:27 AM [facility] BUN/Creatinine 17 8 - 20 01/14/2025 4:27 AM [facility] eGFR (mL/min/1.73m2) 35(L) >=60 mL/min/1.7 3m2 01/14/2025 4:27 AM [facility] Comment:ESTIMATED GFR IS NOT ACCURATE CREATININE CLEARANCE IN PREDICTING GLOMERULAR FILTRATION RATE. ESTIMATED GFR IS NOT APPLICABLE FOR DIALYSIS PATIENTS. Albumin 2.3(L) 3.5 - 5.0 g/dL 01/14/2025 4:27 AM [facility] Alkaline Phosphatase 81 40 - 150 U/L 01/14/2025 4:27 AM [facility] ALT 10 <55 U/L 01/14/2025 4:27 AM [facility] AST 18 5 - 34 U/L 01/14/2025 4:27 AM [facility] Total Bilirubin 0.2(L) 0.3 - 1.2 mg/dL 01/14/2025 4:27 AM [facility] Protein, Total 5.7(L) 6.4 - 8.3 g/dL 01/14/2025 4:27 AM [facility] Globulin 3.4 2.5 - 4.1 g/dL 01/14/2025 4:27 AM [facility] Anion Gap 18(H) 4 - 12 01/14/2025 4:27 AM [facility] A/G Ratio 0.7 0.7 - 1.9 01/14/2025 4:27 AM [facility] Osmolality Calc 297.0 mOsm/kg 4:27 AM [facility] Blood Venipuncture / Unknown 01/14/2025 3:53 AM EDT 01/14/2025 3:53 AM EDT Gabe Morgan Ryan [employer] LAB BLOOD ORDERABLES Final Res ult Performing Organization Address [facility]/ZIP Co de Phone Number [facility] [address] [phone] * (ABNORMAL) CALCIUM Ionized (01/14/2025 3:53 AM EDT) Calcium Ionized 1.03(L) 1.12 - 1.32 mmol/L 01/14/2025 3:59 AM EDT [facility] Blood Venipuncture / Unknown 01/14/2025 3:53 AM EDT 01/14/2025 3:53 AM EDT Gabe Morgan Ryan [employer] LAB BLOOD ORDERABLES Final Res ult Performing Organization Address [facility] Co de Phone Number [facility] [address] [phone] * Magnesium (01/14/2025 3:53 AM EDT) Magnesium 2.0 1.6 - 2.6 mg/dL 01/14/2025 4:20 AM EDT [facility] Blood Venipuncture / Unknown 01/14/2025 3:53 AM EDT 01/14/2025 3:53 AM EDT us Carmelita Spencer DO LAB BLOOD ORDERABLES Final Re sult Performing Organization Address [facility] Co de Phone Number [facility] [address] [phone] * (ABNORMAL) CBC - Hemogram (SJ-BKR) (01/14/2025 3:47 AM EDT) WBC 15.6(H) 4.0 - 10.0 K/ L 01/14/2025 3:50 AM EDT [facility] RBC 3.35(L) 3.93 - 5.22 M/ L 01/14/2025 3:50 AM EDT [facility] Hemoglobin 9.9(L) 11.2 - 15.7 GM/DL 01/14/2025 3:50 AM EDT [facility] Hematocrit 30.2(L) 34.1 - 44.9 % 01/14/2025 3:50 AM EDT [facility] MCV 90 79 - 95 fL 01/14/2025 3:50 AM EDT [facility] MCH 29.6 25.6 - 32.2 pg 01/14/2025 3:50 AM EDT [facility] MCHC 32.8 32.2 - 35.5 GM/DL 01/14/2025 3:50 AM EDT [facility] RDW 16.1(H) 11.7 - 14.4 % 01/14/2025 3:50 AM EDT [facility] Platelets 272 140 - 375 K/CU MM 01/14/2025 3:50 AM EDT [facility] MPV 10.6 9.4 - 12.3 fL 01/14/2025 3:50 AM EDT [facility] Blood Venipuncture / Unknown 01/14/2025 3:47 AM EDT 01/14/2025 3:47 AM EDT us Iswyeel Thony DO LAB BLOOD ORDERABLES Final Re sult [facility] [address] [phone] * (ABNORMAL) Glucose, Nova Meter (01/14/2025 12:34 AM EDT) POC-GLUCOSE 149(H) 70 - 110 mg/dL 01/14/2025 12:42 AM EDT [facility] Comment:In the event of poor peripheral blood flow, venous or arterial blood should be used due to the potential of erroneous results. Wire Spooler [id number] 01/14/2025 12:42 AM EDT [facility] Blood WHOLE BLOOD / Unknown 01/14/2025 12:34 AM EDT 01/14/2025 12:42 AM EDT Ana Grover MD POINT OF CARE TEST ORDERABLES Final Result [facility] [address] [place] [id number] [phone] * ECG 12 lead (01/13/2025 9:37 PM EDT) SYSTOLIC BLOOD PRESSURE (MCT) 149 mmHg GE MUSE DIASTOLIC BLOOD PRESSURE (MCT) 67 mmHg GE MUSE VENTRICULAR RATE EKG/MIN 79 BPM GE MUSE ATRIAL RATE (MCT) 79 BPM GE MUSE ND Interval 172 ms GE MUSE QRS-INTERVAL (MSEC) 88 ms GE MUSE QT Interval 418 ms GE MUSE QTC Interval 479 ms GE MUSE P Chaplin 63 degrees GE MUSE R AXIS (MCT) 108 degrees GE MUSE T Wave Chaplin 76 degrees GE MUSE [place] Diagnosis Sinus rhythm with premature atrial complexes with aberrant conduction Rightward axis Anteroseptal infarct (cited on or before 12-JAN-2025) Confirmed by LESLIE AYERS M.D. ([id number]) on 01/20/2025 8:54:37 PM GE MUSE 01/13/2025 9:37 PM EDT 01/20/2025 8:54 PM EDT Ana Grover MD ECG ORDERABLES Final Result Performing Organization Address City/[facility]/ZIP Co de Phone Number GE MUSE * XR KUB PORTABLE (01/13/2025 7:21 PM EDT) Anatomical Region Laterality Modality Abdomen X-Ray 01/13/2025 8:49 PM EDT Impressions 01/13/2025 8:52 PM EDT 1. OG tube in the mid body of the stomach. 2. Nonspecific gas pattern with no obstruction. Images reviewed, interpreted, dictated and electronically signed by Juan Bonilla MD Voice photographer apprentice technology (Power Scribe) is used for the dictation of this note and sound-alike words might be erroneously placed despite reviewing this note for accuracy. Errors in dictation may reflect use of voice recognition software and not all errors in photographer apprentice may have been detected prior to signing. Narrative 01/13/2025 8:52 PM EDT SINGLE VIEW ABDOMEN HISTORY: NG tube placement COMPARISON: None ABDOMEN: A single view of the abdomen demonstrates a nonspecific bowel gas pattern. There is an oral gastric tube with the tip in the proximal body the stomach. There is a nonspecific gas pattern. Significant aortoiliac vascular calcifications are noted. Procedure Note Juan Bonilla MD - 01/13/2025 SINGLE VIEW ABDOMEN HISTORY: NG tube placement COMPARISON: None ABDOMEN: A single view of the abdomen demonstrates a nonspecific bowel gas pattern. There is an oral gastric tube with the tip in the proximal body the stomach. There is a nonspecific gas pattern. Significant aortoiliac vascular calcifications are noted. IMPRESSION: 1. OG tube in the mid body of the stomach. 2. Nonspecific gas pattern with no obstruction. Images reviewed, interpreted, dictated and electronically signed by Juan Bonilla MD Voice photographer apprentice technology ([employer]) is used for the dictation of this note and sound-alike words might be erroneously placed despite reviewing this note for accuracy. Errors in dictation may reflect use of voice recognition software and not all errors in photographer apprentice may have been detected prior to signing. us Donnie Jeffery MD IMG DIAGNOSTIC IMAGING ORDERABL ES Final Result * (ABNORMAL) Blood gas, arterial (01/13/2025 6:49 PM EDT) pH, Arterial 7.50(H) 7.35 - 7.45 01/13/2025 6:51 PM EDT [facility] pCO2, Arterial 43 35 - 45 mm Hg 01/13/2025 6:51 PM EDT [facility] pO2, Arterial 215(H) 80 - 100 mm Hg 01/13/2025 6:51 PM EDT [facility] HCO3, Arterial 34(H) 20 - 26 mmol/L 01/13/2025 6:51 PM EDT [facility] Base Excess, Arterial 9.7(H) -2.0 - 2.0 mmol/L 01/13/2025 6:51 PM EDT [facility] O2 Sat, Arterial >99.0 95.0 - 100.0 % 01/13/2025 6:51 PM EDT [facility] Comment:notified at read-kurt k verification CTO2 ARTERIAL 6.6 mmol/L 01/13/2025 6:51 PM EDT [facility] THB ARTERIAL 10.3(L) 12.0 - 18.0 g/dL 01/13/2025 6:51 PM EDT [facility] PaO2/FIO2 calculated 215.0 01/13/2025 6:51 PM EDT [facility] COLLECTION SITE Right Radial 01/13/2025 6:51 PM EDT [facility] Arterial Puncture Yes 01/13/2025 6:51 PM EDT [facility] Blood Gas O2 Delivery Device Ventilator 01/13/2025 6:51 PM EDT [facility] Blood Gas PEEP 5.0 01/13/2025 6:51 PM EDT [facility] Blood Gas Tidal Volume 315.0 01/13/2025 6:51 PM EDT [facility] Blood Gas PT Temperature C 37.0 01/13/2025 6:51 PM EDT [facility] Naif's Test Acceptable 01/13/2025 6:51 PM EDT [facility] Vent Mode Assist Control 01/13/2025 6:51 PM EDT [facility] ABG Number of Draw Attempts 1 01/13/2025 6:51 PM EDT [facility] Set Rate 16.0 01/13/2025 6:51 PM EDT [facility] FIO2 100.0 01/13/2025 6:51 PM EDT [facility] Blood Gas Temperature Corrected Results No No 01/13/2025 6:51 PM EDT [facility] Blood, Arterial 01/13/2025 6 :49 PM EDT 01/13/2025 6:51 PM EDT us Donnie Jeffery MD LAB BLOOD ORDERABLES Final Resu lt [facility] [address] [phone] * (ABNORMAL) Glucose, Nova Meter (01/13/2025 6:10 PM EDT) POC-GLUCOSE 310(H) 70 - 110 mg/dL 01/13/2025 6:19 PM EDT [facility] Comment:In the event of poor peripheral blood flow, venous or arterial blood should be used due to the potential of erroneous results. Wire Spooler [id number] 01/13/2025 6:19 PM EDT [facility] Blood WHOLE BLOOD / Unknown 01/13/2025 6:10 PM EDT 01/13/2025 6:19 PM EDT Narrative [facility] - 01/13/2025 6:19 PM EDT Notified RN/MD Ana Grover MD POINT OF CARE TEST ORDERABLES Final Result [facility] [address] [phone] * XR chest AP portable (01/13/2025 5:54 PM EDT) Anatomical Region Laterality Modality Chest X-Ray 01/13/2025 8:51 PM EDT Impressions 01/13/2025 9:06 PM EDT 1. Endotracheal tube in good position. 2. Worsening left lower lobe collapse/consolidation and left effusion. Images reviewed, interpreted, dictated and electronically signed by Juan Bonilla MD Voice photographer apprentice technology (Power Scribe) is used for the dictation of this note and sound-alike words might be erroneously placed despite reviewing this note for accuracy. Errors in dictation may reflect use of voice recognition software and not all errors in photographer apprentice may have been detected prior to signing. Narrative 01/13/2025 9:06 PM EDT PORTABLE CHEST HISTORY: Respiratory failure. COMPARISON: 1 hour prior. FINDINGS: A single portable radiograph of the chest was performed. The patient is now intubated. The endotracheal tube is in the midthoracic trachea. There is dense consolidation of the left lung base which has increased. There is increasing small left pleural effusion. There is underlying emphysema and chronic change. Procedure Note Juan Bonilla MD - 01/13/2025 PORTABLE CHEST HISTORY: Respiratory failure. COMPARISON: 1 hour prior. FINDINGS: A single portable radiograph of the chest was performed. The patient is now intubated. The endotracheal tube is in the midthoracic trachea. There is dense consolidation of the left lung base which has increased. There is increasing small left pleural effusion. There is underlying emphysema and chronic change. IMPRESSION: 1. Endotracheal tube in good position. 2. Worsening left lower lobe collapse/consolidation and left effusion. Images reviewed, interpreted, dictated and electronically signed by Juan Bonilla MD Voice photographer apprentice technology (Power Scribe) is used for the dictation of this note and sound-alike words might be erroneously placed despite reviewing this note for accuracy. Errors in dictation may reflect use of voice recognition software and not all errors in photographer apprentice may have been detected prior to signing. Donnie Jeffrey MD IMG DIAGNOSTIC IMAGING ORDERABL ES Final Result * XR chest AP portable (01/13/2025 5:29 PM EDT) Anatomical Region Laterality Modality Chest X-Ray 01/13/2025 8:50 PM EDT Impressions 01/13/2025 8:52 PM EDT Left base collapse/consolidation with small left effusion. Images reviewed, interpreted, dictated and electronically signed by Juan Bonilla MD Voice photographer apprentice technology (Power Scribe) is used for the dictation of this note and sound-alike words might be erroneously placed despite reviewing this note for accuracy. Errors in dictation may reflect use of voice recognition software and not all errors in photographer apprentice may have been detected prior to signing. Narrative 01/13/2025 8:52 PM EDT PORTABLE CHEST HISTORY: Ongoing shortness of breath. COMPARISON: 13 hours prior. FINDINGS: A single portable radiograph of the chest was performed. Patient is status post sternotomy for CABG. There is calcified plaque of the aorta. There is left base collapse/consolidation with small left effusion. There is underlying emphysema and chronic change. Procedure Note Juan Bonilla MD - 01/13/2025 PORTABLE CHEST HISTORY: Ongoing shortness of breath. COMPARISON: 13 hours prior. FINDINGS: A single portable radiograph of the chest was performed. Patient is status post sternotomy for CABG. There is calcified plaque of the aorta. There is left base collapse/consolidation with small left effusion. There is underlying emphysema and chronic change. IMPRESSION: Left base collapse/consolidation with small left effusion. Images reviewed, interpreted, dictated and electronically signed by Juan Bonilla MD Voice photographer apprentice technology (Power Scribe) is used for the dictation of this note and sound-alike words might be erroneously placed despite reviewing this note for accuracy. Errors in dictation may reflect use of voice recognition software and not all errors in photographer apprentice may have been detected prior to signing. us Donnie Jeffery MD IMG DIAGNOSTIC IMAGING ORDERABL ES Final Result * Magnesium (01/13/2025 1:41 PM EDT) Magnesium 2.6 1.6 - 2.6 mg/dL 01/13/2025 2:20 PM EDT [facility] Blood Venipuncture / Unknown 01/13/2025 1:41 PM EDT 01/13/2025 1:52 PM EDT Narrative [facility] - 01/13/2025 2:20 PM EDT Specimen slightly hemolyzed us Donnie Jeffery MD LAB BLOOD ORDERABLES Final Resu lt Performing Organization Address [facility] Co de Phone Number [facility] [address] [phone] * Potassium (01/13/2025 1:41 PM EDT) Potassium 4.3 3.4 - 5.1 meq/L 01/13/2025 2:20 PM EDT [facility] Blood Venipuncture / Unknown 01/13/2025 1:41 PM EDT 01/13/2025 1:52 PM EDT Narrative [facility] - 01/13/2025 2:20 PM EDT Specimen slightly hemolyzed us Donnie Jeffery MD LAB BLOOD ORDERABLES Final Resu lt [facility] [address] [place] [address], [facility] [phone] * CT CHEST WITHOUT IV CONTRAST (01/13/2025 12:20 PM EDT) Anatomical Region Laterality Modality Chest, Lung Computed Tomogra phy (CT) 01/13/2025 1:30 PM EDT Impressions 01/13/2025 2:42 PM EDT Left lower lobe airspace disease most consistent with pneumonia with obstruction of the left mainstem bronchus and left lower lobe bronchus by what is likely mucus and infectious material. Consider bronchoscopy. Images reviewed, interpreted, and dictated by Dr. Fab Smith. Transcribed by Chanel Parmar PA-C. Narrative 01/13/2025 2:[address] SCAN OF THE CHEST WITHOUT CONTRAST. HISTORY: Pneumonia. COMPARISON: None . PROCEDURE: Axial images were obtained from the lung apex to the mid abdomen by computed tomography. This study was performed with techniques to keep radiation doses as low as reasonably achievable, (ALARA). Automatic exposure control and/or changing of the mA/ kV according to patient size were utilized for radiation dose reduction. FINDINGS: CHEST: There is no axillary, mediastinal or right hilar lymphadenopathy. Left hilar lymphadenopathy is not excluded. There is no pleural or pericardial effusion. There is left lower lobe airspace disease. There is soft tissue density within the left mainstem bronchus and in the left lower lobe bronchus, favor inflammatory/infectious. There are changes from emphysema. The right lung is clear. Limited imaging of the upper abdomen reveals gallstones in the gallbladder. The osseous structures reveal an age-indeterminate T12 fracture. Procedure Note Fab Smith MD - 01/13/2025 CT SCAN OF THE CHEST WITHOUT CONTRAST. HISTORY: Pneumonia. COMPARISON: None . PROCEDURE: Axial images were obtained from the lung apex to the mid abdomen by computed tomography. This study was performed with techniques to keep radiation doses as low as reasonably achievable, (ALARA). Automatic exposure control and/or changing of the mA/ kV according to patient size were utilized for radiation dose reduction. FINDINGS: CHEST: There is no axillary, mediastinal or right hilar lymphadenopathy. Left hilar lymphadenopathy is not excluded. There is no pleural or pericardial effusion. There is left lower lobe airspace disease. There is soft tissue density within the left mainstem bronchus and in the left lower lobe bronchus, favor inflammatory/infectious. There are changes from emphysema. The right lung is clear. Limited imaging of the upper abdomen reveals gallstones in the gallbladder. The osseous structures reveal an age-indeterminate T12 fracture. IMPRESSION: Left lower lobe airspace disease most consistent with pneumonia with obstruction of the left mainstem bronchus and left lower lobe bronchus by what is likely mucus and infectious material. Consider bronchoscopy. Images reviewed, interpreted, and dictated by Dr. Fab Smith. Transcribed by Chanel Parmar PA-C. us Donnie Jeffery MD IMG CT ORDERABLES Final Result * (ABNORMAL) Glucose, Nova Meter (01/13/2025 11:57 AM EDT) POC-GLUCOSE 134(H) 70 - 110 mg/dL 01/13/2025 12:07 PM EDT [facility] Comment:In the event of poor peripheral blood flow, venous or arterial blood should be used due to the potential of erroneous results. Wire Spooler [id number] 01/13/2025 12:07 PM EDT [facility] Blood WHOLE BLOOD / Unknown 01/13/2025 11:57 AM EDT 01/13/2025 12:07 PM EDT Narrative [facility] - 01/13/2025 12:07 PM EDT Notified RN/MD us Ana Grover MD POINT OF CARE TEST ORDERABLES Final Result [facility] [address] [phone] * ECHO COMPLETE (DOPPLER / COLOR) WO CONTRAST (01/13/2025 9:55 AM EDT) Anatomical Region Laterality Modality Heart Vascular Ultraso und 01/13/2025 7:47 AM EDT Narrative 01/13/2025 3:14 PM EDT TRANSTHORACIC ECHOCARDIOGRAPHY REPORT Demographics Patient Name: NEHEMIAS Montes De Oca : 1950 Age: 74 year(s) Corporate ID Number: [id number] Gender Female Digital Manager: Tk Majano RDCS Height: 60 inches Referring Physician: CARMELITA SPENCER MD Weight: 106 pounds Interpreting Physician: JOSEPH CONKLIN DO BMI: 20.7 kg/m^2 Date of Service: 01/13/2025 Blood Pressure: 157/70 mmHg Room Number: CCU 8 Type of Study: TTE procedure: ECHO COMPLETE (DOPPLER / COLOR) W OR WO CONTRAST. Patient Status: Routine IP Study Location: PortableTechnical Quality: Adequate visualization History/Tech Notes: Indication: Acute hypoxic respiratory failure J96.01 Impression: ######################################## Normal sized left ventricle. Normal left ventricular wall thickness. Visually estimated ejection fraction 50% +/- 5%. Low normal left ventricular systolic function. Abnormal systolic strain pattern. Normal left ventricular diastolic function. Abnormal TAPSE; abnormal right ventricular function. No hemodynamically significant valvular heart disease. ###################################### Measurements Summary: LVEDd: 4.26 cm LVESd: 3.2 cm IVSEd: 0.95 cm AO Root:2.73 cm LVPWd: 0.91 cm Contractility Score At rest the following contractility abnormalities were noted: Hypokinesis of the Basal infero-septal and the Basal inferior segments. Contractility of all other segments appeared normal. LV regional wall motion: (0-Not visualized 1-Normal 2-Hypokinesis 3-Akinesis 4-Dyskinesis 5-Aneurysm) Left Ventricle Peak E-wave: 0.54 Peak A-wave: 0.69 m/s E/A ratio: 0.79 m/s Volume [id number] LV length: 7.06 cm ml Volume .94 ml LVOT diameter: 2.01 cm Normal sized left ventricle. Normal left ventricular wall thickness. Visually estimated ejection fraction 50% +/- 5%. Low normal left ventricular systolic function. Abnormal systolic strain pattern. Normal left ventricular diastolic function. No left ventricular masses or thrombi. Right Ventricle Diastolic dimension: 3.88 cm Normal sized right ventricle. Abnormal TAPSE; abnormal right ventricular function. Left Atrium LA dimension: 2.82 cm LA volume:28.98 ml LA/Aorta: 1.03 Normal sized left atrium. Normal left atrial volume index 20 ml/m^2. Atrial septum not well visualized. No atrial mass or thrombus. Right Atrium Normal sized right atrium. Atrial septum not well visualized. No atrial mass or thrombus. Mitral Valve Deceleration time: 164.39 msec Structurally normal mitral valve. Trace mitral regurgitation. No mitral stenosis. No masses or vegetations seen. Aortic Valve LVOT VTI: 17.64 cm Three cusped aortic valve. Aortic annular calcification. Mildly thickend free edges of the aortic valve leaflets. No aortic regurgitation. No aortic stenosis. No masses or vegetations seen. Tricuspid Valve Estimated RAP: 3 mmHg Structurally normal tricuspid valve. No tricuspid regurgitation. No tricuspid stenosis. No masses or vegetations seen. Pulmonic Valve Acceleration time: 125.59 msec Structurally normal pulmonic valve. Mild (1+) pulmonic valve regurgitation. No pulmonic stenosis. No masses or vegetations seen. Great Vessels Aorta Aortic Root: 2.73 cm Ascending Aorta: 2.34 cm LVOT Diameter: 2.01 cm Visualized thoracic aorta is normal. Normal aortic root. No evidence of dissection. Normal IVC with appropriate collapse. Pericardium / Pleura No pericardial effusion. Procedure Note Joseph Conklin DO - 01/13/2025 TRANSTHORACIC ECHOCARDIOGRAPHY REPORT Demographics Patient Name: NEHEMIAS Montes De Oca :1950 Age: 74year(s) Corporate ID Number: [id number] Gender Female Digital Manager: Tk Majano RDCS Height: 60 inches Referring Physician: CARMELITA SPENCER MD Weight: 106pounds Interpreting Physician: JOSEPH CONKLIN DO BMI: 20.7kg/m^2 Date of Service: 01/13/2025 Blood Pressure: 157/70mmHg Room Number: CCU 8 Type of Study: TTE procedure: ECHO COMPLETE (DOPPLER / COLOR) W OR WO CONTRAST. Patient Status: Routine IP Study Location: PortableTechnical Quality: Adequate visualization History/Tech Notes: Indication: Acute hypoxic respiratory failure J96.01 Impression: ######################################## Normal sized left ventricle. Normal left ventricular wall thickness. Visually estimated ejection fraction 50% +/- 5%. Low normal left ventricular systolic function. Abnormal systolic strain pattern. Normal left ventricular diastolic function. Abnormal TAPSE; abnormal right ventricular function. No hemodynamically significant valvular heart disease. ###################################### Measurements Summary: LVEDd: 4.26 cm LVESd: 3.2 cm IVSEd: 0.95 cm AO Root:2.73 cm LVPWd: 0.91 cm Contractility Score At rest the following contractility abnormalities were noted:Hypokinesis of the Basal infero-septal and the Basal inferior segments.Contractility of all other segments appeared normal. LV regional wall motion: (0-Not visualized 1-Normal 2-Hypokinesis 3-Akinesis 4-Dyskinesis 5-Aneurysm) Left Ventricle Peak E-wave: 0.54 Peak A-wave: 0.69 m/s E/A ratio: 0.79 m/s Volume [id number] LV length: 7.06 cm ml Volume skkgmqsa97.94 ml LVOT diameter: 2.01 cm Normal sized left ventricle. Normal left ventricular wall thickness. Visually estimated ejection fraction 50% +/- 5%. Low normal left ventricular systolic function. Abnormal systolic strain pattern. Normal left ventricular diastolic function. No left ventricular masses or thrombi. Right Ventricle Diastolic dimension: 3.88 cm Normal sized right ventricle. Abnormal TAPSE; abnormal right ventricular function. Left Atrium LA dimension: 2.82 cm LA volume:28.98 ml LA/Aorta: 1.03 Normal sized left atrium. Normal left atrial volume index 20 ml/m^2. Atrial septum not well visualized. No atrial mass or thrombus. Right Atrium Normal sized right atrium. Atrial septum not well visualized. No atrial mass or thrombus. Mitral Valve Deceleration time: 164.39 msec Structurally normal mitral valve. Trace mitral regurgitation. No mitral stenosis. No masses or vegetations seen. Aortic Valve LVOT VTI: 17.64 cm Three cusped aortic valve. Aortic annular calcification. Mildly thickend free edges of the aortic valve leaflets. No aortic regurgitation. No aortic stenosis. No masses or vegetations seen. Tricuspid Valve Estimated RAP: 3 mmHg Structurally normal tricuspid valve. No tricuspid regurgitation. No tricuspid stenosis. No masses or vegetations seen. Pulmonic Valve Acceleration time: 125.59 msec Structurally normal pulmonic valve. Mild (1+) pulmonic valve regurgitation. No pulmonic stenosis. No masses or vegetations seen. Great Vessels Aorta Aortic Root: 2.73 cm Ascending Aorta: 2.34 cm LVOT Diameter: 2.01 cm Visualized thoracic aorta is normal. Normal aortic root. No evidence of dissection. Normal IVC with appropriate collapse. Pericardium / Pleura No pericardial effusion. us Carmelita Spencer DO CV ECHO ORDERABLES Final Resu lt * ECG 12 lead (01/13/2025 8:05 AM EDT) SYSTOLIC BLOOD PRESSURE (MCT) 159 mmHg GE MUSE DIASTOLIC BLOOD PRESSURE (MCT) 70 mmHg GE MUSE VENTRICULAR RATE EKG/MIN 65 BPM GE MUSE ATRIAL RATE (MCT) 65 BPM GE MUSE ND Interval 180 ms GE MUSE QRS-INTERVAL (MSEC) 82 ms GE MUSE QT Interval 420 ms GE MUSE QTC Interval 436 ms GE MUSE P Chaplin 47 degrees GE MUSE R AXIS (MCT) 100 degrees GE MUSE T Wave Chaplin 112 degrees GE MUSE [place] Diagnosis Normal sinus rhythm Rightward axis Cannot rule out Anterior infarct (cited on or before 12-JAN-2025) Abnormal ECG When compared with ECG of 12-JAN-2025 08:46, Serial changes of Anterior infarct present Confirmed by Trupti Robertson ([id number]) on 01/20/2025 3:36:30 PM GE MUSE 01/13/2025 8:05 AM EDT 01/20/2025 3:36 PM EDT Ana Grover MD ECG ORDERABLES Final Result GE MUSE * (ABNORMAL) Phosphorus (01/13/2025 6:15 AM EDT) Pathologist [facility] Phosphorus 5.3(H) 2.5 - 4.5 mg/dL 01/13/2025 9:00 AM EDT [facility] Blood Venipuncture / Unknown 01/13/2025 6:15 AM EDT 01/13/2025 6:19 AM EDT us Donnie Jeffery MD LAB BLOOD ORDERABLES Final Resu lt [facility] [address] [phone] * (ABNORMAL) Comprehensive metabolic panel (01/13/2025 6:15 AM EDT) Sodium 148(H) 136 - 145 meq/L 01/13/2025 6:45 AM EDT [facility] Potassium 3.3(L) 3.4 - 5.1 meq/L 01/13/2025 6:45 AM [facility] Chloride 103 98 - 112 meq/L 01/13/2025 6:45 AM [facility] CO2 34(H) 22 - 29 meq/L 01/13/2025 6:45 AM [facility] Calcium 9.2 8.4 - 10.2 mg/dL 01/13/2025 6:45 AM [facility] Glucose 116(H) 82 - 115 mg/dL 01/13/2025 6:45 AM [facility] BUN 21.8(H) 9.8 - 20.1 mg/dL 01/13/2025 6:45 AM [facility] Creatinine 1.19 0.50 - 1.20 mg/dL 01/13/2025 6:45 AM [facility] BUN/Creatinine 18 8 - 20 01/13/2025 6:45 AM [facility] eGFR (mL/min/1.73m2) 48(L) >=60 mL/min/1.7 3m2 01/13/2025 6:45 AM [facility] Comment:ESTIMATED GFR IS NOT ACCURATE CREATININE CLEARANCE IN PREDICTING GLOMERULAR FILTRATION RATE. ESTIMATED GFR IS NOT APPLICABLE FOR DIALYSIS PATIENTS. Albumin 2.5(L) 3.5 - 5.0 g/dL 01/13/2025 6:45 AM [facility] Alkaline Phosphatase 84 40 - 150 U/L 01/13/2025 6:45 AM [facility] ALT 13 <55 U/L 01/13/2025 6:45 AM [facility] AST 19 5 - 34 U/L 01/13/2025 6:45 AM [facility] Total Bilirubin 0.3 0.3 - 1.2 mg/dL 01/13/2025 6:45 AM [facility] Protein, Total 5.9(L) 6.4 - 8.3 g/dL 01/13/2025 6:45 AM [facility] Globulin 3.4 2.5 - 4.1 g/dL 01/13/2025 6:45 AM [facility] Anion Gap 14(H) 4 - 12 01/13/2025 6:45 AM EDT [facility] A/G Ratio 0.7 0.7 - 1.9 01/13/2025 6:45 AM EDT [facility] Osmolality Calc 298.5 mOsm/kg 6:45 AM EDT [facility] Blood Venipuncture / Unknown 01/13/2025 6:15 AM EDT 01/13/2025 6:19 AM EDT Gabe Davis [employer] LAB BLOOD ORDERABLES Final Res ult Performing Organization Address City/[facility]/ZIP Co de Phone Number [facility] [address] [phone] * Magnesium (01/13/2025 6:15 AM EDT) Magnesium 1.8 1.6 - 2.6 mg/dL 01/13/2025 6:45 AM EDT [facility] Blood Venipuncture / Unknown 01/13/2025 6:15 AM EDT 01/13/2025 6:19 AM EDT us Carmelita Spencer DO LAB BLOOD ORDERABLES Final Re sult Performing Organization Address [facility]/ZIP Co de Phone Number [facility] [address] [phone] * (ABNORMAL) Glucose, Nova Meter (01/13/2025 6:12 AM EDT) POC-GLUCOSE 113(H) 70 - 110 mg/dL 01/13/2025 6:21 AM EDT [facility] Comment:In the event of poor peripheral blood flow, venous or arterial blood should be used due to the potential of erroneous results. Wire Spooler [id number] 01/13/2025 6:21 AM EDT [facility] Blood WHOLE BLOOD / Unknown 01/13/2025 6:12 AM EDT 01/13/2025 6:21 AM EDT us Ismaeel Thony DO POINT OF CARE TEST ORDERABLES Final Result [facility] [address] [place] [id number], [facility] [phone] * XR chest AP portable (01/13/2025 5:31 AM EDT) Anatomical Region Laterality Modality Chest X-Ray 01/13/2025 8:55 AM EDT Impressions 01/13/2025 11:24 AM EDT No significant interval change in the left lung base collapse/consolidation which likely represents pneumonia. Images reviewed, interpreted, and dictated by Dr. Juan Bonilla. Transcribed by Va Cevallos PA-C. Narrative 01/13/2025 11:24 AM EDT PORTABLE CHEST HISTORY: Ongoing pneumonia. COMPARISON: One day prior. FINDINGS: The heart is normal in size. The mediastinum is unremarkable. There has been no change in the left lung base collapse/consolidation which likely represents pneumonia. There is a small left pleural effusion. The lungs are underinflated with chronic changes throughout. There is no pneumothorax. Status post median sternotomy. Procedure Note Juan Bonilla MD - 01/13/2025 PORTABLE CHEST HISTORY: Ongoing pneumonia. COMPARISON: One day prior. FINDINGS: The heart is normal in size. The mediastinum is unremarkable. There has been no change in the left lung base collapse/consolidation which likely represents pneumonia. There is a small left pleural effusion. The lungs are underinflated with chronic changes throughout. There is no pneumothorax. Status post median sternotomy. IMPRESSION: No significant interval change in the left lung base collapse/consolidation which likely represents pneumonia. Images reviewed, interpreted, and dictated by Dr. Juan Bonilla. Transcribed by Va Cevallos PA-C. Aki Espinosa APRN IMG DIAGNOSTIC IMAGING ORDERAB LES Final Result * CALCIUM Ionized (01/13/2025 4:09 AM EDT) Calcium Ionized 1.14 1.12 - 1.32 mmol/L 01/13/2025 4:23 AM EDT [facility] Blood Venipuncture / Unknown 01/13/2025 4:09 AM EDT 01/13/2025 4:17 AM EDT us Gabe Davis [employer] LAB BLOOD ORDERABLES Final Res ult [facility] [address] [phone] * (ABNORMAL) CBC - Hemogram (SJ-BKR) (01/13/2025 4:09 AM EDT) WBC 17.1(H) 4.0 - 10.0 K/ L 01/13/2025 4:25 AM EDT [facility] RBC 3.58(L) 3.93 - 5.22 M/ L 01/13/2025 4:25 AM EDT [facility] Hemoglobin 10.8(L) 11.2 - 15.7 GM/DL 01/13/2025 4:25 AM EDT [facility] Hematocrit 32.3(L) 34.1 - 44.9 % 01/13/2025 4:25 AM EDT [facility] MCV 90 79 - 95 fL 01/13/2025 4:25 AM EDT [facility] MCH 30.2 25.6 - 32.2 pg 01/13/2025 4:25 AM EDT [facility] MCHC 33.4 32.2 - 35.5 GM/DL 01/13/2025 4:25 AM EDT [facility] RDW 16.1(H) 11.7 - 14.4 % 01/13/2025 4:25 AM EDT [facility] Platelets 268 140 - 375 K/CU MM 01/13/2025 4:25 AM EDT [facility] MPV 11.4 9.4 - 12.3 fL 01/13/2025 4:25 AM EDT [facility] Blood Venipuncture / Unknown 01/13/2025 4:09 AM EDT 01/13/2025 4:17 AM EDT us Ismaeel Thony DO LAB BLOOD ORDERABLES Final Re sult [facility] [address] [place] [address], [facility] [phone] * (ABNORMAL) Glucose, Nova Meter (01/13/2025 12:04 AM EDT) POC-GLUCOSE 130(H) 70 - 110 mg/dL 01/13/2025 12:13 AM EDT [facility] Comment:In the event of poor peripheral blood flow, venous or arterial blood should be used due to the potential of erroneous results. Wire Spooler [id number] 01/13/2025 12:13 AM EDT [facility] Blood WHOLE BLOOD / Unknown 01/13/2025 12:04 AM EDT 01/13/2025 12:13 AM EDT us Ismaeel Thony DO POINT OF CARE TEST ORDERABLES Final Result Performing Organization Address [facility]/ZIP Co de Phone Number [facility] [address] [place] [address], [facility] [phone] * (ABNORMAL) Basic Metabolic Panel (01/12/2025 7:49 PM EDT) Sodium 148(H) 136 - 145 meq/L 01/12/2025 8:12 PM EDT [facility] Potassium 4.1 3.4 - 5.1 meq/L 01/12/2025 8:12 PM EDT [facility] CO2 29 22 - 29 meq/L 01/12/2025 8:12 PM EDT [facility] Chloride 103 98 - 112 meq/L 01/12/2025 8:12 PM EDT [facility] Glucose 168(H) 82 - 115 mg/dL 01/12/2025 8:12 PM EDT [facility] BUN 22.1(H) 9.8 - 20.1 mg/dL 01/12/2025 8:12 PM EDT [facility] Creatinine 1.06 0.50 - 1.20 mg/dL 01/12/2025 8:12 PM EDT [facility] BUN/Creatinine 21(H) 8 - 20 01/12/2025 8:12 PM EDT [facility] Calcium 9.2 8.4 - 10.2 mg/dL 01/12/2025 8:12 PM EDT [facility] Anion Gap 20(H) 4 - 12 01/12/2025 8:12 PM EDT [facility] eGFR (mL/min/1.73m2) 55(L) >=60 mL/min/1.7 3m2 01/12/2025 8:12 PM EDT [facility] Comment:ESTIMATED GFR IS NOT ACCURATE CREATININE CLEARANCE IN PREDICTING GLOMERULAR FILTRATION RATE. ESTIMATED GFR IS NOT APPLICABLE FOR DIALYSIS PATIENTS. Osmolality Calc 301.5 mOsm/kg 8:12 PM EDT [facility] Blood Venipuncture / Unknown 01/12/2025 7:49 PM EDT 01/12/2025 7:52 PM EDT Narrative [facility] - 01/12/2025 8:12 PM EDT Specimen slightly hemolyzed us Iswyee Thony DO LAB BLOOD ORDERABLES Final Re sult [facility] [address] [phone] * (ABNORMAL) Glucose, Nova Meter (01/12/2025 5:12 PM EDT) POC-GLUCOSE 188(H) 70 - 110 mg/dL 01/12/2025 5:21 PM EDT [facility] Comment:In the event of poor peripheral blood flow, venous or arterial blood should be used due to the potential of erroneous results. Wire Spooler [id number] 01/12/2025 5:21 PM EDT [facility] Blood WHOLE BLOOD / Unknown 01/12/2025 5:12 PM EDT 01/12/2025 5:21 PM EDT Narrative [facility] - 01/12/2025 5:21 PM EDT Received Meds us Ismaeel Thony DO POINT OF CARE TEST ORDERABLES Final Result Performing Organization Address City/[facility]/ZIP Co de Phone Number [facility] [address] [phone] * (ABNORMAL) Glucose, Nova Meter (01/12/2025 12:08 PM EDT) POC-GLUCOSE 152(H) 70 - 110 mg/dL 01/12/2025 12:17 PM EDT [facility] Comment:In the event of poor peripheral blood flow, venous or arterial blood should be used due to the potential of erroneous results. Wire Spooler [id number] 01/12/2025 12:17 PM EDT [facility] Blood WHOLE BLOOD / Unknown 01/12/2025 12:08 PM EDT 01/12/2025 12:17 PM EDT us Ismaeel Thony DO POINT OF CARE TEST ORDERABLES Final Result Performing Organization Address [facility] Co de Phone Number [facility] [address] [place] [address], [facility] [phone] * Legionella antigen, urine (01/12/2025 10:33 AM EDT) Legionella Urine Antigen Presumptive negative for L. pneumophila serogroup 1 antigen in urine- see comment Presumptive negative for L. pneumophila serogroup 1 antigen in urine- see comment 01/12/2025 11:14 AM EDT [facility] Urine 01/12/2025 10:3 3 AM EDT 01/12/2025 10:33 AM EDT Narrative [facility] - 01/12/2025 11:14 AM EDT Presumptive negative for L. pneumophilia serogroup 1 antigen in urine, suggesting no recent or current infection. Infection due to Legionella cannot be ruled out since other serogroups and species may cause disease, antigen may not be present in urine in early infection, and the level of antigen present in the specimen may be below the detection limit of the test. us Ismaeel Thony DO URINE ORDERABLES Final Result Performing Organization Address [facility] Co de Phone Number [facility] [address] [phone] * Strep pneumoniae urine antigen (01/12/2025 10:33 AM EDT) Strep pneumoniae Antigen Presumptive negative for pneumococcal pneumonia - see comment Presumptive negative for pneumococcal pneumonia- see comment 01/12/2025 11:14 AM EDT [facility] Urine URINE / Unknown 01/12/2025 1 0:33 AM EDT 01/12/2025 10:33 AM EDT Narrative [facility] - 01/12/2025 11:14 AM EDT A presumptive negative result suggests no current or recent pneumococcal infection. Infection due to S. pneumoniae cannot be ruled out since the antigen present in the specimen may be below the detection limit of the test. [facility] DO MICROBIOLOGY - GENERAL ORDERA BLES Final Result Performing Organization Address [facility] Co de Phone Number [facility] [address] [phone] * ECG 12 lead (01/12/2025 8:46 AM EDT) SYSTOLIC BLOOD PRESSURE (MCT) 166 mmHg GE MUSE DIASTOLIC BLOOD PRESSURE (MCT) 74 mmHg GE MUSE VENTRICULAR RATE EKG/MIN 82 BPM GE MUSE ATRIAL RATE (MCT) 82 BPM GE MUSE ND Interval 194 ms GE MUSE QRS-INTERVAL (MSEC) 82 ms GE MUSE QT Interval 372 ms GE MUSE QTC Interval 434 ms GE MUSE P Chaplin 50 degrees GE MUSE R AXIS (MCT) 103 degrees GE MUSE T Wave Chaplin 133 degrees GE MUSE [place] Diagnosis Normal sinus rhythm Rightward axis Anteroseptal infarct , age undetermined Abnormal ECG No previous ECGs available Confirmed by LESLIE AYERS M.D. ([id number]) on 01/20/2025 8:56:33 PM GE MUSE 01/12/2025 8:46 AM EDT 01/20/2025 8:56 PM EDT us Ismaeel Thony DO ECG ORDERABLES Final Result Performing Organization Address City/[facility]/ZIP Co de Phone Number GE MUSE * Respiratory Culture (01/12/2025 6:07 AM EDT) Result Sputum unsatisfactory for culture. Microscopic evaluation indicates significant upper respiratory contamination with epithelial cells.Submit another specimen. 01/12/2025 8:47 AM EDT [facility] Gram Stain Result >25 Epithelial cells/LPF 01/12/2025 8:47 AM EDT [facility] Sputum COLLECTION OF COUGHED SPUTUM / Unknown 01/12/2025 6:07 AM EDT 01/12/2025 6:13 AM EDT [facility] - 01/12/2025 8:47 AM EDT Sputum rejection called to Respiratory Care Team us Ismaeel Thony DO MICROBIOLOGY - GENERAL ORDERA BLES Final Result Performing Organization Address [facility] Co de Phone Number [facility] [address] [phone] * (ABNORMAL) Glucose, Nova Meter (01/12/2025 5:52 AM EDT) POC-GLUCOSE 233(H) 70 - 110 mg/dL 01/12/2025 6:01 AM EDT [facility] Comment:In the event of poor peripheral blood flow, venous or arterial blood should be used due to the potential of erroneous results. Wire Spooler [id number] 01/12/2025 6:01 AM EDT [facility] Blood WHOLE BLOOD / Unknown 01/12/2025 5:52 AM EDT 01/12/2025 6:01 AM EDT [facility] - 01/12/2025 6:01 AM EDT Patient Treated us Ismaeel Thony DO POINT OF CARE TEST ORDERABLES Final Result Performing Organization Address [facility] Co de Phone Number [facility] [address] [place], [place] [address] [phone] * XR chest AP portable (01/12/2025 3:42 AM EDT) Anatomical Region Laterality Modality Chest X-Ray 01/12/2025 4:53 AM EDT Impressions 01/12/2025 4:53 AM EDT 1. Question congestive failure/fluid overload. Small/moderate left basilar effusion with basilar atelectasis. Interstitial thickening diffusely throughout the bilateral lungs which could reflect changes of interstitial pulmonary edema. Authenticated and Narrative 01/12/2025 4:53 AM EDT FINAL REPORT TECHNIQUE: null CLINICAL HISTORY: hypoxia COMPARISON: null FINDINGS: 1 view chest x-ray Comparison: None provided Findings: The heart size is borderline enlarged. Prominence of the pulmonary vasculature. Small/moderate volume left basilar pleural effusion with passive atelectasis. Interstitial thickening within the bilateral lungs greater on the left could reflect interstitial edema. No pneumothorax. Median sternotomy wires. Osseous demineralization. Degenerative changes of the thoracic spine, no acute fracture. Procedure Note Guanakito Vasquez DO - 01/12/2025 FINAL REPORT TECHNIQUE: null CLINICAL HISTORY: hypoxia COMPARISON: null FINDINGS: 1 view chest x-ray Comparison: None provided Findings: The heart size is borderline enlarged. Prominence of the pulmonary vasculature. Small/moderate volume left basilar pleural effusion with passive atelectasis. Interstitial thickening within the bilateral lungs greater on the left could reflect interstitial edema. No pneumothorax. Median sternotomy wires. Osseous demineralization. Degenerative changes of the thoracic spine, no acute fracture. IMPRESSION: 1. Question congestive failure/fluid overload. Small/moderate left basilar effusion with basilar atelectasis. Interstitial thickening diffusely throughout the bilateral lungs which could reflect changes of interstitial pulmonary edema. Authenticated and Ismargarita Thony DO IMG DIAGNOSTIC IMAGING ORDERA BLES Final Result * (ABNORMAL) PROBNP (01/12/2025 3:30 AM EDT) ProBNP (pg/mL) 5,189(H) 16 - 334 pg/mL 01/12/2025 10:27 AM EDT [facility] Blood Venipuncture / Unknown 01/12/2025 3:30 AM EDT 01/12/2025 3:35 AM EDT [facility] [facility] LABORATORY - 01/12/2025 10:27 AM EDT As of August 15, 2024: NT-ProBNP is a new test on our EasyPost Alinity Immunoassay analyzer. Please review new age and gender specific reference ranges. us Tawnya Amaro MD LAB BLOOD ORDERABLES Final Res ult Performing Organization Address City/[facility]/ZIP Co de Phone Number [facility] [address] [phone] * Procalcitonin (01/12/2025 3:30 AM EDT) Procalcitonin 0.33 See Comment ng/mL 01/12/2025 4:27 AM EDT [facility] Blood Venipuncture / Unknown 01/12/2025 3:30 AM EDT 01/12/2025 3:35 AM EDT [facility] LABORATORY - 01/12/2025 4:27 AM EDT Specimen moderately hemolyzed us Gabe Davis APRN LAB BLOOD ORDERABLES Final Res ult [facility] [address] [phone] * Phosphorus (01/12/2025 3:30 AM EDT) Phosphorus 2.7 2.5 - 4.5 mg/dL 01/12/2025 4:27 AM EDT [facility] Blood Venipuncture / Unknown 01/12/2025 3:30 AM EDT 01/12/2025 3:35 AM EDT [facility] LABORATORY - 01/12/2025 4:27 AM EDT Specimen moderately hemolyzed Gabe Davis APRN LAB BLOOD ORDERABLES Final Res ult Performing Organization Address [facility] Co de Phone Number [facility] [address] [phone] * Lactic acid (SJ) (01/12/2025 3:30 AM EDT) Lactic Acid Level (mmol/L) 1.7 0.5 - 2.2 mmol/L 01/12/2025 4:09 AM EDT [facility] Blood Venipuncture / Unknown 01/12/2025 3:30 AM EDT 01/12/2025 3:35 AM EDT Gabe Davis APRN LAB BLOOD ORDERABLES Final Res ult Performing Organization Address [facility] de Phone Number [facility] [address] [phone] * (ABNORMAL) C-Reactive Protein (01/12/2025 3:30 AM EDT) CRP 297.3(H) 0.0 - 5.0 mg/L 01/12/2025 4:33 AM EDT [facility] Blood Venipuncture / Unknown 01/12/2025 3:30 AM EDT 01/12/2025 3:35 AM EDT Gabe Davis [employer] LAB BLOOD ORDERABLES Final Res ult Performing Organization Address [facility] Co de Phone Number [facility] [address] [phone] * (ABNORMAL) Comprehensive metabolic panel (01/12/2025 3:30 AM EDT) Sodium 143 136 - 145 meq/L 01/12/2025 4:33 AM EDT [facility] Potassium 3.7 3.4 - 5.1 meq/L 01/12/2025 4:33 AM [facility] Chloride 101 98 - 112 meq/L 01/12/2025 4:33 AM [facility] CO2 29 22 - 29 meq/L 01/12/2025 4:33 AM [facility] Calcium 9.0 8.4 - 10.2 mg/dL 01/12/2025 4:33 AM [facility] Glucose 216(H) 82 - 115 mg/dL 01/12/2025 4:33 AM [facility] BUN 25.4(H) 9.8 - 20.1 mg/dL 01/12/2025 4:33 AM [facility] Creatinine 1.04 0.50 - 1.20 mg/dL 01/12/2025 4:33 AM [facility] BUN/Creatinine 24(H) 8 - 20 01/12/2025 4:33 AM [facility] eGFR (mL/min/1.73m2) 57(L) >=60 mL/min/1.7 3m2 01/12/2025 4:33 AM [facility] Comment:ESTIMATED GFR IS NOT ACCURATE CREATININE CLEARANCE IN PREDICTING GLOMERULAR FILTRATION RATE. ESTIMATED GFR IS NOT APPLICABLE FOR DIALYSIS PATIENTS. Albumin 2.8(L) 3.5 - 5.0 g/dL 01/12/2025 4:33 AM [facility] Alkaline Phosphatase 98 40 - 150 U/L 01/12/2025 4:33 AM [facility] ALT 16 <55 U/L 01/12/2025 4:33 AM [facility] AST 27 5 - 34 U/L 01/12/2025 4:33 AM [facility] Total Bilirubin 0.2(L) 0.3 - 1.2 mg/dL 01/12/2025 4:33 AM [facility] Protein, Total 6.5 6.4 - 8.3 g/dL 01/12/2025 4:33 AM [facility] Globulin 3.7 2.5 - 4.1 g/dL 01/12/2025 4:33 AM [facility] Anion Gap 17(H) 4 - 12 01/12/2025 4:33 AM EDT [facility] A/G Ratio 0.8 0.7 - 1.9 01/12/2025 4:33 AM EDT [facility] Osmolality Calc 296.1 mOsm/kg 4:33 AM EDT [facility] Blood Venipuncture / Unknown 01/12/2025 3:30 AM EDT 01/12/2025 3:35 AM EDT Narrative [facility] - 01/12/2025 4:33 AM EDT Specimen moderately hemolyzed Gabe Davis APRN LAB BLOOD ORDERABLES Final Res ult Performing Organization Address City/[facility]/ZIP Co de Phone Number [facility] [address] [phone] * (ABNORMAL) CALCIUM Ionized (01/12/2025 3:30 AM EDT) Calcium Ionized 1.11(L) 1.12 - 1.32 mmol/L 01/12/2025 3:41 AM EDT [facility] Blood Venipuncture / Unknown 01/12/2025 3:30 AM EDT 01/12/2025 3:35 AM EDT Gabe Davis APRN LAB BLOOD ORDERABLES Final Res ult [facility] [address] [phone] * Respiratory Panel (01/12/2025 3:29 AM EDT) ADENOVIRUS Not detected Not detected 01/12/2025 4:49 AM EDT [facility] CORONAVIRUS 229E Not detected Not detected 01/12/2025 4:49 AM EDT [facility] CORONAVIRUS HKU1 Not detected Not detected 01/12/2025 4:49 AM EDT [facility] CORONAVIRUS NL63 Not detected Not detected 01/12/2025 4:49 AM EDT [facility] CORONAVIRUS OC43 Not detected Not detected 01/12/2025 4:49 AM EDT [facility] SARS-COV2/RT-PCR Not Detected Not Detected 01/12/2025 4:49 AM EDT [facility] HUMAN METAPNEUMOVIRUS Not detected Not detected 01/12/2025 4:49 AM EDT [facility] HUMAN RHINOVIRUS/ENTEROV IRUS Not detected Not detected 01/12/2025 4:49 AM EDT [facility] INFLUENZA A Not detected Not detected 01/12/2025 4:49 AM EDT [facility] INFLUENZA B Not detected Not detected 01/12/2025 4:49 AM EDT [facility] PARAINFLUENZA VIRUS 1 Not detected Not detected 01/12/2025 4:49 AM EDT [facility] PARAINFLUENZA VIRUS 2 Not detected Not detected 01/12/2025 4:49 AM EDT [facility] PARAINFLUENZA VIRUS 3 Not detected Not detected 01/12/2025 4:49 AM EDT [facility] PARAINFLUENZA VIRUS 4 Not detected Not detected 01/12/2025 4:49 AM EDT [facility] RESPIRATORY SYNCYTIAL VIRUS Not detected Not detected 01/12/2025 4:49 AM EDT [facility] BORDETELLA PARAPERTUSSIS Not detected Not detected 01/12/2025 4:49 AM EDT [facility] BORDETELLA PERTUSSIS Not detected Not detected 01/12/2025 4:49 AM EDT [facility] CHLAMYDIA PNEUMONIAE Not detected Not detected 01/12/2025 4:49 AM EDT [facility] MYCOPLASMA PNEUMONIAE Not detected Not detected 01/12/2025 4:49 AM EDT [facility] Nasopharyngeal NASOPHARYNGEAL SWAB / Unknown 01/12/2025 3:29 AM EDT 01/12/2025 3:35 AM EDT [facility] LABORATORY - 01/12/2025 4:49 AM EDT Testing was performed with RT-PCR methodology using the Biomeme Respiratory Panel 2.1 which has FDA [place] approval for SARS-CoV-2 testing. Negative results do not preclude infection with the SARS-CoV-2 virus and should not be used as the sole basis of patient treatment or public health decisions. Negative results must be considered in the context of an individual's recent exposures, history, and presence of clinical signs/symptoms. Follow-up testing should be performed according to the current CDC recommendations. Other viruses and bacteria not targeted by this PCR panel cannot be excluded; therefore clinical correlation and follow up of serology, culture results, and other molecular studies is required. The results are not intended to be used as the sole means for clinical diagnosis or patient management decisions. This sample was tested at the [facility] using the [employer] FilmArray Respiratory Panel. It is FDA cleared and has been verified and approved by the [facility] for clinical use on nasopharyngeal swab specimens. The performance of the FilmArray RP has not been established in individuals who received influenza vaccine. Recent administration of a nasal influenza vaccine may cause false positive results for Influenza A and/or Influenza B. [employer] Thony DO MICROBIOLOGY - GENERAL ORDERA BLES Final Result Performing Organization Address [facility]/ZIP Co de Phone Number [facility] [address] [phone] * MRSA Screen (01/12/2025 3:29 AM EDT) [facility] MRSA by PCR [facility] MRSA Not Detected by PCR MRSA Not Detected by PCR DEVICE ID9 01/12/2025 5:32 AM EDT [facility] Nasal BOTH ANTERIOR NARES / Unknown 01/12/2025 3:29 AM EDT 01/12/2025 3:35 AM EDT [employer] Thony DO MICROBIOLOGY - GENERAL ORDERA BLES Final Result Performing Organization Address [facility]/ZIP Co de Phone Number [facility] [address] [place] [address], [facility] [phone] * (ABNORMAL) Glucose, Nova Meter (01/12/2025 2:09 AM EDT) [facility] POC-GLUCOSE 217(H) 70 - 110 mg/dL 01/12/2025 2:18 AM EDT [facility] Comment:In the event of poor peripheral blood flow, venous or arterial blood should be used due to the potential of erroneous results. Wire Spooler [id number] 01/12/2025 2:18 AM EDT [facility] Blood WHOLE BLOOD / Unknown 01/12/2025 2:09 AM EDT 01/12/2025 2:18 AM EDT Narrative [facility] - 01/12/2025 2:18 AM EDT Patient Treated us Nathan Malhotra MD POINT OF CARE TEST ORDERABLES Fi nal Result [facility] [address] [phone] * (ABNORMAL) Basic Metabolic Panel (01/12/2025 2:05 AM EDT) Sodium 144 136 - 145 meq/L 01/12/2025 3:49 AM EDT [facility] Potassium 3.3(L) 3.4 - 5.1 meq/L 01/12/2025 3:49 AM EDT [facility] CO2 26 22 - 29 meq/L 01/12/2025 3:49 AM EDT [facility] Chloride 100 98 - 112 meq/L 01/12/2025 3:49 AM EDT [facility] Glucose 226(H) 82 - 115 mg/dL 01/12/2025 3:49 AM EDT [facility] BUN 24.5(H) 9.8 - 20.1 mg/dL 01/12/2025 3:49 AM EDT [facility] Creatinine 1.03 0.50 - 1.20 mg/dL 01/12/2025 3:49 AM EDT [facility] BUN/Creatinine 24(H) 8 - 20 01/12/2025 3:49 AM EDT [facility] Calcium 8.8 8.4 - 10.2 mg/dL 01/12/2025 3:49 AM EDT [facility] Anion Gap 21(H) 4 - 12 01/12/2025 3:49 AM EDT [facility] eGFR (mL/min/1.73m2) 57(L) >=60 mL/min/1.7 3m2 01/12/2025 3:49 AM EDT [facility] Comment:ESTIMATED GFR IS NOT ACCURATE CREATININE CLEARANCE IN PREDICTING GLOMERULAR FILTRATION RATE. ESTIMATED GFR IS NOT APPLICABLE FOR DIALYSIS PATIENTS. Osmolality Calc 298.1 mOsm/kg 3:49 AM EDT [facility] Blood Venipuncture / Unknown 01/12/2025 2:05 AM EDT 01/12/2025 2:09 AM EDT us Ismaeel Tohny DO LAB BLOOD ORDERABLES Final Re sult [facility] [address] [phone] * (ABNORMAL) CBC - Hemogram (SJ-BKR) (01/12/2025 2:05 AM EDT) WBC 17.9(H) 4.0 - 10.0 K/ L 01/12/2025 2:11 AM EDT [facility] RBC 3.68(L) 3.93 - 5.22 M/ L 01/12/2025 2:11 AM EDT [facility] Hemoglobin 10.8(L) 11.2 - 15.7 GM/DL 01/12/2025 2:11 AM EDT [facility] Hematocrit 33.3(L) 34.1 - 44.9 % 01/12/2025 2:11 AM EDT [facility] MCV 91 79 - 95 fL 01/12/2025 2:11 AM EDT [facility] MCH 29.3 25.6 - 32.2 pg 01/12/2025 2:11 AM EDT [facility] MCHC 32.4 32.2 - 35.5 GM/DL 01/12/2025 2:11 AM EDT [facility] RDW 15.9(H) 11.7 - 14.4 % 01/12/2025 2:11 AM EDT [facility] Platelets 276 140 - 375 K/CU MM 01/12/2025 2:11 AM EDT [facility] MPV 10.7 9.4 - 12.3 fL 01/12/2025 2:11 AM EDT [facility] Blood Venipuncture / Unknown 01/12/2025 2:05 AM EDT 01/12/2025 2:09 AM EDT us Ismaeel Thony DO LAB BLOOD ORDERABLES Final Re sult Performing Organization Address City/[facility]/ZIP Co de Phone Number [facility] [address] [phone] * Magnesium (01/12/2025 2:05 AM EDT) Magnesium 1.9 1.6 - 2.6 mg/dL 01/12/2025 2:28 AM EDT [facility] Blood Venipuncture / Unknown 01/12/2025 2:05 AM EDT 01/12/2025 2:09 AM EDT us Ismaeel Thony DO LAB BLOOD ORDERABLES Final Re sult Performing Organization Address [facility] Co de Phone Number [facility] [address] [phone] * EKG-SCANNED (01/12/2025) Narrative 01/12/2025 Ordered by an unspecified provider. us Default Scanning Provider SCAN ORDERS Final Result documented in this encounter Visit Diagnoses Diagnosis Aspiration pneumonia (HCC)- Primary Pneumonitis due to inhalation of food or vomitus Bronchial obstruction documented in this encounter Admitting Diagnoses Diagnosis Aspiration pneumonia (HCC) Pneumonitis due to inhalation of food or vomitus Bronchial obstruction documented in this encounter Administered Medications Inactive Administered Medications - up to 3 most recent administrations Medication Order MAR Action Action Date Dose Rate Site acetaminophen (TYLENOL) tablet 1,000 mg 1,000 mg Every 6 hours PRN, oral, mild pain (1-3), and severe pain (7-10), Starting on 01/12/25 at 0137, Recommended maximum dose of acetaminophen is 4000 mg from all sources in 24 hours This medication is to be administered FIRST LINE for a pain scale of 1-3, Mild Acetaminophen Given 01/18/2025 3:56 AM EDT 1,000 mg acetaminophen (TYLENOL) tablet 1,000 mg 1,000 mg Every 6 hours PRN, oral, mild pain (1-3), Starting on Mon01/21/25 at 1503, Recommended maximum dose of acetaminophen is 4000 mg from all sources in 24 hours This medication is to be administered FIRST LINE for a pain scale of 1-3, Mild Acetaminophen acetylcysteine (MUCOMYST) 200 mg/mL (20 %) nebulizer solution 1 mL 1 mL 2 times daily, nebulization, First dose on Mon01/13/25 at 1430, For 3 days, RESPIRATORY THERAPY TREATMENT Look-alike/Sound-alike medication, What is the respiratory therapy Modality? Small volume Nebulization Given 01/15/2025 8:23 PM EDT 1 mL Given 01/15/2025 8:15 AM EDT 1 mL Given 01/14/2025 8:33 PM EDT 1 mL acetylcysteine (MUCOMYST) 200 mg/mL (20 %) nebulizer solution 1 mL 1 mL 2 times daily, nebulization, First dose on 01/18/25 at 1230, For 2 days, RESPIRATORY THERAPY TREATMENT Look-alike/Sound-alike medication, What is the respiratory therapy Modality? Small volume Nebulization Given 01/19/2025 10:41 PM EDT 1 mL Given 01/19/2025 10:11 AM EDT 1 mL Given 01/19/2025 1:00 AM EDT 1 mL albumin human 25 % IV 25 g 25 g 2 times daily, intravenous, First dose on Mon01/15/25 at 1300, For 4 doses, Albumin is restricted for approved indications only and limited to 24 hr duration, with exception of the last indication restricted to 48 hrs. If albumin therapy is needed beyond 24 hrs a new order should be placed by the provider. Choose an indication. Other Indication, Please enter appropriate Other Indication: recsucitation New Bag 01/16/2025 9:16 PM EDT 25 g New Bag 01/16/2025 9:21 AM EDT 25 g New Bag 01/15/2025 8:05 PM EDT 25 g amLODIPine (NORVASC) tablet 10 mg 10 mg Daily, oral, First dose (after last modification) on Maricel 01/16/25 at 1030, Antihypertensive - Check BP - Check Pulse, On hold since Maricel 01/23/2025 at 0753 until manually unheld Given 01/22/2025 9:01 AM EDT 10 mg Given 01/21/2025 9:27 AM EDT 10 mg Given 01/20/2025 9:04 AM EDT 10 mg amLODIPine (NORVASC) tablet 5 mg 5 mg Daily, oral, First dose on 01/12/25 at 1430, Antihypertensive - Check BP - Check Pulse Given 01/13/2025 8 :59 AM EDT 5 mg Given 01/12/2025 2:25 PM EDT 5 mg aspirin chewable tablet 81 mg 81 mg Daily, oral, First dose (after last modification) on 01/13/25 at 1030 Given 01/23/2025 9:42 AM EDT 81 mg Given 01/22/2025 9:01 AM EDT 81 mg Given 01/21/2025 9:28 AM EDT 81 mg aspirin EC tablet 325 mg 325 mg Daily, oral, First dose on Mon01/12/25 at 0900, * DO NOT CRUSH THIS DOSAGE FORM * Given 01/12/2025 9:52 AM EDT 325 mg atorvastatin (LIPITOR) tablet 80 mg 80 mg Every Night, oral, First dose on 01/12/25 at 2100 Given 01/21/2025 8:13 PM EDT 80 mg Given 01/20/2025 9:57 PM EDT 80 mg Given 01/19/2025 8:52 PM EDT 80 mg barium sulfate (VARIBAR NECTAR) 40 % (w/v) suspension 20 mL 20 mL Once, oral, On Mon01/22/25 at 1100, For 1 dose, Intra-op Given 01/22/2025 10:55 AM EDT 30 mLs barium sulfate (VARIBAR PUDDING) 40 % (w/v), 30% (w/w) pudding 230 mL 230 mL Once, oral, On Mon01/22/25 at 1100, For 1 dose, Intra-op Given 01/22/2025 10:54 AM EDT 30 mLs barium sulfate (VARIBAR THIN) 81 % (w/w) powder 50 mL 50 mL Once, oral, On Mon01/22/25 at 1100, For 1 dose, Intra-op Given 01/22/2025 10:55 AM EDT 30 mLs barium sulfate 40 %(w/v), 29% (w/w)(1500 CPS) susp 50 mL 50 mL Once, oral, On Mon01/22/25 at 1100, For 1 dose, Intra-op Given 01/22/2025 10:54 AM EDT 30 mLs benzonatate (TESSALON) capsule 100 mg 100 mg 3 times daily PRN, oral, cough, Starting on Mon01/12/25 at 0238, * DO NOT CRUSH THIS DOSAGE FORM * budesonide (PULMICORT) nebulizer suspension 0.5 mg 0.5 mg 2 times daily (RT), nebulization, First dose on Mon01/12/25 at 0800, *RESPIRATORY THERAPY TREATMENT*, What is the respiratory therapy Modality? Small volume Nebulization Given 01/23/2025 11:25 AM EDT 0.5 mg Given 01/22/2025 8:47 PM EDT 0.5 mg Given 01/21/2025 8:42 PM EDT 0.5 mg calcium gluconate 1 g in sodium chloride 0.9 % (NS) 100 mL IVPB at 100 mL/hr, Administer over 60 Minutes, intravenous, Once, On Mon01/12/25 at 0530, For 1 dose IVPB Started 01/12/2025 5:37 AM EDT 1 g 100 mL/hr cyanocobalamin injection 1,000 mcg 1,000 mcg Daily, intraMUSCULAR, First dose on Mon01/22/25 at 0900, For 5 doses Given 01/23/2025 9:42 AM EDT 1,000 mcg Left Deltoid Given 01/22/2025 9:01 AM EDT 1,000 mcg Ot her dextrose 50% (D50W) injection 25 g 25 g As needed, intravenous, low blood glucose (specify value in prn comments), less than 41 mg/dL or 41-69 mg/dL and unable to take PO, Starting on Mon01/12/25 at 0254, For 2 doses, Repeat blood glucose every 15 minutes until blood glucose greater than 70 mg/dL. Call Provider if not resolved after 2 treatments Repeat BS in 1 hour, retime for 1 hour after blood sugar greater than 70 mg/dL If less than 41: Repeat Finger stick within 5 minutes with same machine Send serum glucose level: Do not wait on lab to treat dilTIAZem (CARDIZEM) tablet 60 mg 60 mg 3 times daily, oral, First dose (after last modification) on Maricel 01/23/25 at 0900, Antihypertensive - Check BP - Check Pulse Given 01/23/2025 9:42 AM EDT 60 mg docusate sodium (COLACE) capsule 100 mg 100 mg 2 times daily PRN, oral, constipation, Starting on 01/12/25 at 0137, THIRD LINE Bowel Regimen - for prevention of constipation. donepeziL (ARICEPT) tablet 10 mg 10 mg Every Night, oral, First dose on 01/12/25 at 2100 Given 01/22/2025 9:03 PM EDT 10 mg Given 01/21/2025 8:13 PM EDT 10 mg Given 01/20/2025 9:57 PM EDT 10 mg doxycycline (VIBRAMYCIN) 100 mg in sodium chloride 0.9 % (NS) IVANA IVPB 100 mg Every 12 hours scheduled, intravenous, at 100 mL/hr, First dose on 01/12/25 at 0900, Please choose an indication: Pneumonia IVPB Started 01/23/2025 9:42 AM EDT 100 mg 100 mL/hr IVPB Started 01/22/2025 9:02 PM EDT 100 mg 100 mL/hr IVPB Started 01/22/2025 9:00 AM EDT 100 mg 100 mL/hr escitalopram (LEXAPRO) tablet 10 mg 10 mg Daily, oral, First dose on 01/12/25 at 0900 Given 01/23/2025 9:43 AM EDT 10 mg Given 01/22/2025 9:01 AM EDT 10 mg Given 01/21/2025 9:28 AM EDT 10 mg etomidate (AMIDATE) injection 30 mg 30 mg Once, intravenous, On 01/13/25 at 1800, For 1 dose Given 01/13/2025 5:51 PM EDT 20 mg famotidine injection 20 mg 20 mg Daily, intravenous, First dose on 01/22/25 at 0900, Pharmacist to renally dose if CrCl is less than 50 mL/min or on CRRT. Given 01/23/2025 9:43 AM EDT 2 0 mg Given 01/22/2025 9:05 AM EDT 20 mg fentaNYL in NS (SUBLIMAZE) 20 mcg/mL infusion 12.5-300 mcg/hr Titrated (0.625-15 mL/hr, rounded to 0.6-15 mL/hr), intravenous, Starting on Mon01/13/25 at 1800 Rate/Dose Verify 01/16/2025 6:23 AM EDT 75 mcg/hr 3.8 mL/hr Rate/Dose Verify 01/15/2025 6:00 AM EDT 75 mcg/hr 3.8 mL/ hr New Bag 01/15/2025 5:50 AM EDT 75 mcg/hr 3.8 mL/hr fentaNYL PF (SUBLIMAZE) injection 50 mcg 50 mcg Once, intravenous, On Mon01/13/25 at 1800, For 1 dose Given 01/13/2025 5:53 PM EDT 50 mcg ferrous sulfate 300 mg (60 mg iron)/5 mL solution 300 mg 300 mg Daily, oral, First dose on Mon01/15/25 at 1400 Given 01/22/2025 9:58 AM EDT 300 mg Given 01/21/2025 9:27 AM EDT 300 mg Given 01/20/2025 9:14 AM EDT 300 mg ferrous sulfate EC tablet 325 mg 325 mg Daily, oral, First dose on 01/12/25 at 0900, * DO NOT CRUSH THIS DOSAGE FORM * Given 01/14/2025 9:12 AM EDT 325 mg Given 01/13/2025 8:59 AM EDT 325 mg Given 01/12/2025 8:31 AM EDT 325 mg fluconazole (DIFLUCAN) IVPB 100 mg in sodium chloride 0.9 % 50 mL (premix) 100 mg Every 24 hours, intravenous, First dose on Maricel 01/23/25 at 1030 IVPB Started 01/23/2025 12:15 PM EDT 100 mg fluconazole (DIFLUCAN) tablet 200 mg 200 mg Once, oral, On 01/20/25 at 2230, For 1 dose, Caution: Recommend wearing gloves during administration. DO NOT BREAK/CRUSH/CHEW. Employees who are , trying to become , or should not handle this medication. Dispose of trace medication (including packaging) in the BLACK waste bin. Given 01/20/2025 9:58 PM EDT 200 mg furosemide (LASIX) injection 20 mg 20 mg 2 times daily diuretic, intravenous, First dose on Mon01/12/25 at 0900, On hold since Mon01/14/2025 at 0923 until manually unheld Given 01/14/2025 9:06 AM EDT 20 mg Given 01/13/2025 4:50 PM EDT 20 mg Given 01/13/2025 8:58 AM EDT 20 mg furosemide (LASIX) injection 40 mg 40 mg Once, intravenous, On Mon01/13/25 at 1800, For 1 dose Given 01/13/2025 5:55 PM EDT 40 mg furosemide (LASIX) injection 40 mg 40 mg Once, intravenous, On Mon01/15/25 at 1030, For 1 dose Given 01/15/2025 10:23 AM EDT 40 mg furosemide (LASIX) injection 40 mg 40 mg Once, intravenous, On Mon01/16/25 at 0900, For 1 dose Given 01/16/2025 9:21 AM EDT 40 mg gabapentin (NEURONTIN) capsule 100 mg 100 mg 2 times daily, oral, First dose on Mon01/12/25 at 0200, On hold since Mon01/15/2025 at 0959 until manually unheld Given 01/15/2025 8:45 AM EDT 100 mg Given 01/14/2025 8:56 PM EDT 100 mg Given 01/14/2025 9:10 AM EDT 100 mg glucagon injection 1 mg 1 mg As needed, intraMUSCULAR, low blood glucose (specify value in prn comments), For Patients without IV access and blood glucose 41-69 mg/dL AND unable to take PO OR Less than 41 mg/dL, Starting on Mon01/12/25 at 0254, For 2 doses, Caution: glucagon . Roll patient on their side when administering to prevent aspiration. Call Provider if not resolved after 2 treatments Repeat BS in 1 hour, retime for 1 hour after blood sugar greater than 70 mg/dL glucose chew tab 16 g 16 g As needed, oral, low blood glucose (specify value in prn comments), 41-69 mg/dL, Starting on 01/12/25 at 0254, For 3 doses, For Patients who can take oral AND blood glucose 41-69 mg/dL Give 4 Tabs every 15 minutes. Recheck blood glucose every 15 minutes and repeat 15 grams of carbohydrates until blood glucose is above 70 mg/dL. Give Meal or Snack Call Provider if not resolved after 3 treatments Repeat BS in 1 hour, retime for 1 hour after blood sugar greater than 70 mg/dL glycerin (laxative) suppository 1 suppository 1 suppository Daily as needed, rectal, constipation, constipation, Starting on Mon01/12/25 at 0137, 2nd line for treatment of constipation - give scheduled (in addition to 1st line agent) if no bowel movement in past 48 hours glycopyrrolate (ROBINUL) injection 0.2 mg 0.2 mg Every 8 hours PRN, intravenous, other, Excessive secretions, Starting on Mon01/17/25 at 0834, For 1 day Given 01/17/2025 10:02 PM EDT 0.2 mg Given 01/17/2025 8:56 AM EDT 0.2 mg guaiFENesin (mucINEX) 12 hr tablet 600 mg 600 mg 2 times daily, oral, First dose on Mon01/12/25 at 0300, Look-alike/Sound-alike medication Given 01/13/2025 9:14 AM EDT 600 mg Given 01/12/2025 8:39 PM EDT 600 mg Given 01/12/2025 8:28 AM EDT 600 mg guaiFENesin (ROBITUSSIN) 100 mg/5 mL syrup 300 mg 300 mg Every 6 hours scheduled, feeding tube, First dose on 01/13/25 at 2230, Look-alike/Sound-alike medication Given 01/23/2025 5:13 AM EDT 300 mg Given 01/22/2025 11:08 PM EDT 300 mg Given 01/22/2025 11:53 AM EDT 300 mg heparin injection 5,000 Units 5,000 Units Every 8 hours scheduled, subcutaneous, First dose on Mon01/12/25 at 0500 Given 01/16/2025 4:20 AM EDT 5,000 Units Abdominal Tissue Given 01/15/2025 8:06 PM EDT 5,000 Units A bdominal Tissue Given 01/15/2025 1:09 PM EDT 5,000 Units A bdominal Tissue heparin injection 5,000 Units 5,000 Units Every 12 hours scheduled, subcutaneous, First dose (after last modification) on [place] 01/16/25 at 2100, On hold since [place] 01/23/2025 at 0722 until manually unheld Given 01/22/2025 9:02 PM EDT 5,000 Units Abdominal Tissue Given 01/22/2025 9:01 AM EDT 5,000 Units A bdominal Tissue Given 01/21/2025 8:12 PM EDT 5,000 Units A bdominal Tissue hydrALAZINE (APRESOLINE) injection 10 mg 10 mg Every 6 hours PRN, intravenous, high blood pressure (specify), SBP>160, Starting on Mon01/12/25 at 1938, 1st line Hold if SBP < 100 mmHg, DBP < 50 mmHg, or patient is on pressor. Look-alike/Sound-alike medication Given 01/23/2025 5: 50 AM EDT 10 mg Given 01/20/2025 1:23 AM EDT 10 mg Given 01/19/2025 4:15 PM EDT 10 mg hydroCHLOROthiazide (HYDRODIURIL) tablet 12.5 mg 12.5 mg Daily, oral, First dose on Mon01/12/25 at 1600, On hold since Mon01/14/2025 at 0923 until manually unheld Given 01/14/2025 9:06 AM EDT 12. 5 mg Given 01/13/2025 9:25 AM EDT 12.5 mg Given 01/12/2025 3:44 PM EDT 12.5 mg insulin regular (HUMULIN R,NOVOLIN R) injection 0-6 Units Every 6 hours scheduled, subcutaneous, First dose on [place] 01/12/25 at 0600, Corrective Scale A 0 units for fingerstick blood glucose LESS than 140 mg/dL 1 unit subcutaneously once for fingerstick blood glucose [140] - [180] mg/dL 2 units subcutaneously once for fingerstick blood glucose [181] - [220] mg/dL 3 units subcutaneously once for fingerstick blood glucose [221] - [260] mg/dL 4 units subcutaneously once for fingerstick blood glucose [261] - [300] mg/dL 5 units subcutaneously once for fingerstick blood glucose [301] - [350] mg/dL 6 units subcutaneously once for fingerstick blood glucose [351] - [400] mg/dL Notify provider of glucose levels LESS than [70] and GREATER than [400] Given 01/22/2025 11:53 AM EDT 3 Units Abdominal Tissue Given 01/21/2025 6:13 PM EDT 4 Units Ab dominal Tissue Given 01/21/2025 1:14 PM EDT 2 Units Ab dominal Tissue ipratropium-albuteroL (DUO-NEB) 0.5 mg-3 mg(2.5 mg base)/3 mL nebulizer solution 3 mL 3 mL Every 6 hours while awake (RT), nebulization, First dose on Mon01/12/25 at 0800, RESPIRATORY THERAPY TREATMENT Protect from Light, What is the respiratory therapy Modality? Small volume Nebulization Given 01/15/2025 8:15 AM EDT 3 mLs Given 01/14/2025 8:33 PM EDT 3 mLs Given 01/14/2025 1:58 PM EDT 3 mLs ipratropium-albuteroL (DUO-NEB) 0.5 mg-3 mg(2.5 mg base)/3 mL nebulizer solution 3 mL 3 mL Every 6 hours (RT), nebulization, First dose (after last modification) on Mon01/15/25 at 1700, RESPIRATORY THERAPY TREATMENT Protect from Light, What is the respiratory therapy Modality? Small volume Nebulization Given 01/23/2025 11:25 AM EDT 3 mLs Given 01/23/2025 5:04 AM EDT 3 mLs Given 01/22/2025 8:47 PM EDT 3 mLs isosorbide mononitrate (IMDUR) 24 hr tablet 30 mg 30 mg Every morning before breakfast, oral, First dose on Mon01/12/25 at 0730, DO NOT CRUSH THIS DOSAGE FORM, On hold since Mon01/14/2025 at 0920 until manually unheld Given 01/13/2025 8:59 AM EDT 30 mg Given 01/12/2025 8:31 AM EDT 30 mg labetaloL (TRANDATE, NORMODYNE) injection 10 mg 10 mg Every 6 hours PRN, intravenous, high blood pressure (specify), SBP over 170 or DBP over 100, hold HR less than 60, Starting on Mon01/20/25 at 0355, 2nd line Hold for systolic BP < 90 mmHg or for HR < 50 BPM Given 01/20/2025 4:07 AM EDT 10 mg lactated Ringer's infusion 100 mL/hr Continuous, intravenous, Starting on 01/15/25 at 1300, For 20 hours Rate/Dose Verify 01/16/2025 6:23 AM EDT 100 mL/hr 100 mL/hr Rate/Dose Verify 01/15/2025 6:21 PM EDT 100 mL/hr 100 mL/ hr New Bag 01/15/2025 1:10 PM EDT 100 mL/hr 100 mL/hr LORazepam (ATIVAN) tablet 0.5 mg 0.5 mg Every Night PRN, oral, anxiety, Starting on 01/12/25 at 0140 Given 01/22/2025 9:02 PM EDT 0.5 mg Given 01/21/2025 8:13 PM EDT 0.5 mg Given 01/20/2025 10:57 PM EDT 0.5 mg magnesium sulfate IVPB 1 g in dextrose 5% 100 mL (premix) at 50 mL/hr, Administer over 120 Minutes, intravenous, Once, On 01/12/25 at 0600, For 1 dose IVPB Started 01/12/2025 5:44 AM EDT 1 g 50 mL/hr magnesium sulfate IVPB 2 g in sterile water 50 mL (premix) at 25 mL/hr, Administer over 120 Minutes, intravenous, Daily as needed, for magnesium level 1.3 to 1.7 mg/dL, Starting on 01/12/25 at 0137, If magnesium is replaced per protocol order, recheck 1 hour after replacement and the next morning. IVPB Started 01/18/2025 6:11 AM EDT 2 g 25 mL/hr magnesium sulfate IVPB 2 g in sterile water 50 mL (premix) at 25 mL/hr, Administer over 120 Minutes, intravenous, 2 times daily PRN, for magnesium level less than 1.3 mg/dL, Starting on 01/12/25 at 0137, Total dose of 4 g for each low magnesium result. If magnesium is replaced per protocol order, recheck 1 hour after replacement and the next morning. IVPB Started 01/16/2025 4:20 AM EDT 2 g 25 mL/hr IVPB Started 01/13/2025 9:25 AM EDT 2 g 25 mL/hr melatonin tablet 3 mg 3 mg Every Night, oral, First dose on Mon01/12/25 at 2100 Given 01/22/2025 9:02 PM EDT 3 mg Given 01/21/2025 8:13 PM EDT 3 mg Given 01/20/2025 9:58 PM EDT 3 mg memantine (NAMENDA) tablet 5 mg 5 mg 2 times daily, oral, First dose on Mon01/12/25 at 0200, On hold since Mon01/22/2025 at 0714 until manually unheld Given 01/21/2025 8:12 PM EDT 5 mg Given 01/21/2025 9:28 AM EDT 5 mg Given 01/20/2025 9:58 PM EDT 5 mg methylPREDNISolone sodium succinate (PF) (Solu-MEDROL) injection 40 mg 40 mg Daily, intravenous, First dose on Mon01/12/25 at 0900 Given 01/23/2025 9:42 AM EDT 40 mg Given 01/22/2025 9:00 AM EDT 40 mg Given 01/21/2025 9:27 AM EDT 40 mg metoprolol succinate (TOPROL-XL) 24 hr tablet 100 mg 100 mg Daily, oral, First dose on Mon01/12/25 at 0900, Hold for systolic BP < 90 mmHg or for HR < 50 BPM Do Not Crush or Chew (Tablet may be split) Given 01/13/2025 8:58 AM EDT 100 mg Given 01/12/2025 8:28 AM EDT 100 mg metoprolol tartrate (LOPRESSOR) tablet 25 mg 25 mg 2 times daily, oral, First dose on Mon01/14/25 at 1000, Hold for systolic BP < 90 mmHg or for HR < 50 BPM Given 01/22/2025 9:02 PM EDT 25 mg Given 01/22/2025 9:01 AM EDT 25 mg Given 01/21/2025 8:13 PM EDT 25 mg metoprolol tartrate (LOPRESSOR) tablet 50 mg 50 mg 2 times daily, oral, First dose (after last modification) on Mon01/23/25 at 0900, Hold for systolic BP < 90 mmHg or for HR < 50 BPM Given 01/23/2025 9:42 AM EDT 50 mg midazolam (VERSED) injection 10 mg 10 mg Once, intravenous, On Mon01/13/25 at 1800, For 1 dose, Look-alike/Sound-alike medication. Contains Benzyl Alcohol Given 01/13/2025 5:52 PM EDT 10 mg midazolam (VERSED) injection 6 mg 6 mg Once, intravenous, On Mon01/14/25 at 1000, For 1 dose, Look-alike/Sound-alike medication. Contains Benzyl Alcohol Given 01/14/2025 10:36 AM EDT 6 mg pantoprazole (PROTONIX) injection 40 mg 40 mg Every evening, intravenous, First dose on Mon01/12/25 at 1700, * DILUTE IN 10 ML NS AND GIVE IV SLOWLY OVER 3 MINUTES * Given 01/21/2025 4:30 PM EDT 40 mg Given 01/20/2025 4:43 PM EDT 40 mg Given 01/19/2025 4:26 PM EDT 40 mg pantoprazole (PROTONIX) injection 40 mg 40 mg 2 times daily, intravenous, First dose (after last modification) on Mon01/22/25 at 0900, * DILUTE IN 10 ML NS AND GIVE IV SLOWLY OVER 3 MINUTES * Given 01/23/2025 9:42 AM EDT 40 mg Given 01/22/2025 9:02 PM EDT 40 mg Given 01/22/2025 9:02 AM EDT 40 mg phenylephrine (JORGE A-SYNEPHRINE) 40 mg in sodium chloride 0.9 % (NS) 250 mL infusion 5-360 mcg/min Titrated (1.875-135 mL/hr, rounded to 1.9-135 mL/hr), intravenous, Starting on Mon01/13/25 at 1800, *Caution: Extravasation Risk * Rate/Dose Change 01/13/2025 9:47 PM EDT 20 mcg/min 7.5 mL/hr Rate/Dose Change 01/13/2025 9:29 PM EDT 30 mcg/min 11.3 mL /hr New Bag 01/13/2025 5:56 PM EDT 50 mcg/min 18.8 mL/hr piperacillin-tazobactam (ZOSYN) 2.25 g in dextrose 5 % (D5W) 50 mL IVPB 2.25 g Every 6 hours, intravenous, Administer over 3 Hours, First dose on Mon01/13/25 at 1600, Please choose an indication: Pneumonia IVPB Started 01/23/2025 9:41 AM EDT 2.25 g 16.7 mL/hr IVPB Started 01/23/2025 5:13 AM EDT 2.25 g 16.7 mL/hr IVPB Started 01/22/2025 11:08 PM EDT 2.25 g 16.7 mL/hr piperacillin-tazobactam (ZOSYN) 2.25 g in sodium chloride 0.9 % (NS) MBP 50 mL IVPB 2.25 g Every 6 hours interval, intravenous, Administer over 3 Hours, First dose (after last reorder) on Mon01/12/25 at 1000, Please choose an indication: Pneumonia IVPB Started 01/13/2025 10:25 AM EDT 2.25 g 16.7 mL/hr IVPB Started 01/13/2025 4:13 AM EDT 2.25 g 16.7 mL/hr IVPB Started 01/12/2025 10:06 PM EDT 2.25 g 16.7 mL/hr piperacillin-tazobactam (ZOSYN) 4.5 g in sodium chloride 0.9 % (NS) MBP 100 mL IVPB 4.5 g Once, intravenous, Administer over 30 Minutes, On Mon01/12/25 at 0300, For 1 dose, Please choose an indication: Pneumonia IVPB Started 01/12/2025 3:41 AM EDT 4.5 g 200 mL/hr polyethylene glycol (GLYCOLAX) packet 17 g 17 g Daily as needed, oral, constipation, Starting on Mon01/12/25 at 0137, FIRST LINE Bowel Regimen - for prevention of constipation. potassium bicarbonate (EFFER-K) disintegrating tablet 40 mEq 40 mEq 2 times daily, oral, First dose on Mon01/13/25 at 0930, Do NOT crush or chew the effervescent tablet. Preparation: Dissolve 1 effervescent tablet in 3-4 ounces of cold water or juice and drink slowly. If giving through tube feeding, please flush feeding tube before and after this medication administration. Given 01/13/2025 9:19 AM EDT 40 mEq potassium bicarbonate (EFFER-K) disintegrating tablet 40 mEq 40 mEq Every 6 hours PRN, oral, other, K+ less or equal to 3.4, Starting on 01/13/25 at 1000, Do NOT crush or chew the effervescent tablet. Preparation: Dissolve 1 effervescent tablet in 3-4 ounces of cold water or juice and drink slowly. If giving through tube feeding, please flush feeding tube before and after this medication administration. Given 01/18/2025 6:11 AM EDT 40 mEq Given 01/16/2025 3:30 PM EDT 40 mEq Given 01/16/2025 4:20 AM EDT 40 mEq potassium chloride (KLOR-CON) ER tablet 40 mEq 40 mEq Once, oral, On 01/12/25 at 0600, For 1 dose, DO NOT CRUSH THIS DOSAGE FORM Given 01/12/2025 6:00 AM EDT 40 mEq potassium chloride IVPB 10 mEq in 100 mL sterile water (premix) 40 mEq Every hour PRN, intravenous, Administer over 60 Minutes, for potassium less than or equal to 3.4 mmol/L, Starting on [place] 01/16/25 at 0815, Total Dose 40 mEq, use only if unable to administer PO. Max Rate 10mEq/hr. If potassium is replaced per protocol order, recheck 1 hour after replacement and the next morning. promethazine (PHENERGAN) 12.5 mg in sodium chloride 0.9 % (NS) 50 mL IVPB (Immediate Use Only) 12.5 mg Every 6 hours PRN, intravenous, at 150 mL/hr, nausea, vomiting, Starting on 01/12/25 at 0137, 1st line. Give IV if patient is unable to take orally. If inadequate response within 60 minutes, proceed to next line-agent for same PRN Reason or contact provider if no further options ordered. IVPB Started 01/20/2025 3:47 AM EDT 12.5 mg 150 mL/hr propofoL (DIPRIVAN) injection 1-65 mcg/kg/min 46.5 kg Adjusted weight Titrated (0.279-18.135 mL/hr, rounded to 0.3-18.1 mL/hr), intravenous, Starting on 01/13/25 at 1800, If used with paralytics (i.e., cisatracurium, vecuronium, etc.), titrate to a Bispectral Index (BIS) of 30-50. Shake well before use; protect from light. *DISCARD VIAL & TUBING AFTER 12 HOURS*, Titrated? Titrate, Initial Starting Dose: 5 to 20 mcg/kg/min, Initial Starting Dose Comment: If titratable infusion is continuing from a previous location or level of care, nurse to continue titratable infusion at the current rate., Titration Dose: 1 to 10 mcg/kg/min as often as every 2 minutes, Titration Endpoints - RASS Target Goal: 0 to (-2) Light Sedation, Notify Provider Parameters: Treatment goal not met despite max dose or heart rate less than 50 BPM or symptomatic bradycardia Rate/Dose Verify 01/15/2025 6:00 AM EDT 10 mcg/kg/min 2.8 mL/hr Rate/Dose Change 01/13/2025 6:20 PM EDT 10 mcg/kg/min 2.8 mL/hr Rate/Dose Change 01/13/2025 6:10 PM EDT 15 mcg/kg/min 4.2 mL/hr rocuronium (ZEMURON) injection 50 mg 50 mg Once, intravenous, On Mon01/14/25 at 1000, For 1 dose Given 01/14/2025 10:36 AM EDT 50 mg sodium chloride flush 10 mL 10 mL As needed, intravenous, line care, Starting on 01/12/25 at 0137, Every 8 hours and PRN to flush documented in this encounter Active and Recently Administered Medications Times are shown in EDT. Scheduled Medication Order 01/21/2025 01/22/2025 01/23/2025 amLODIPine (NORVASC) tablet 10 mg 10 mg Daily, oral, First dose (after last modification) on Mon01/16/25 at 1030, Antihypertensive - Check BP - Check Pulse, On hold since Mon01/23/2025 at 0753 until manually unheld 0927 (Given - Provider: Tory Melissa RN) 0901 (Given - Provider: Faby Amin RN) 0753 (Held by provider - Provider: Krystian Bhakta MD)0900 (Automatically Held - Provider: Krystian Bhakta MD)1528 (Unheld by provider - Provider: Automatic Discharge Provider) aspirin chewable tablet 81 mg 81 mg Daily, oral, First dose (after last modification) on 01/13/25 at 1030 0928 (Given - Provider: Tory Melissa RN) 0901 (Given - Provider: Faby Amin, RN) 0942 (Given - Provider: Faby Amin, JAY) atorvastatin (LIPITOR) tablet 80 mg 80 mg Every Night, oral, First dose on Mon01/12/25 at 2100 2012 (Given - Provider: Dolores Pizarro, RN) 0739 (Held by provider - Provider: Krystian Bhakta MD)2099 (Not Given - Provider: Dolores Pizarro RN - Reason: Per MD Order) 0934 (Unheld by provider - Provider: Krystian Bhakta MD) barium sulfate (VARIBAR NECTAR) 40 % (w/v) suspension 20 mL (COMPLETED) 20 mL Once, oral, On Mon01/22/25 at 1100, For 1 dose, Intra-op 1055 (Given - Provider: Batsheva Minor) barium sulfate (VARIBAR PUDDING) 40 % (w/v), 30% (w/w) pudding 230 mL (COMPLETED) 230 mL Once, oral, On Mon01/22/25 at 1100, For 1 dose, Intra-op 1054 (Given - Provider: Batsheva Minor) barium sulfate (VARIBAR THIN) 81 % (w/w) powder 50 mL (COMPLETED) 50 mL Once, oral, On Mon01/22/25 at 1100, For 1 dose, Intra-op 1055 (Given - Provider: Batsheva Minor) barium sulfate 40 %(w/v), 29% (w/w)(1500 CPS) susp 50 mL (COMPLETED) 50 mL Once, oral, On Mon01/22/25 at 1100, For 1 dose, Intra-op 1054 (Given - Provider: Batsheva Minor) budesonide (PULMICORT) nebulizer suspension 0.5 mg 0.5 mg 2 times daily (RT), nebulization, First dose on Mon01/12/25 at 0800, *RESPIRATORY THERAPY TREATMENT*, What is the respiratory therapy Modality? Small volume Nebulization 1108 (Given - Provider: Sarah Lang, TACTICAL DEBRIEFER)2041 (Given - Provider: Mattie Noyola, BACK PAD INSPECTOR) 1037 (Not Given - Provider: Catarina David, KEKE - Reason: Patient not available - Comment: out of room)2046 (Given - Provider: Mattie Noyola, BACK PAD INSPECTOR) 112 (Given - Provider: Shanti Martinez, KEKE) cyanocobalamin injection 1,000 mcg 1,000 mcg Daily, intraMUSCULAR, First dose on Mon01/22/25 at 0900, For 5 doses 09 (Given - Provider: Faby Amin, JAY) 0942 (Given - Provider: Faby Amin, RN) dilTIAZem (CARDIZEM) tablet 60 mg 60 mg 3 times daily, oral, First dose (after last modification) on [place] 01/23/25 at 0900, Antihypertensive - Check BP - Check Pulse 941 (Given - Provider: Faby Amin, JAY) donepeziL (ARICEPT) tablet 10 mg 10 mg Every Night, oral, First dose on 01/12/25 at 2099 2012 (Given - Provider: Dolores Pizarro RN) 2102 (Given - Provider: Dolores Pizarro, JAY) doxycycline (VIBRAMYCIN) 100 mg in sodium chloride 0.9 % (NS) IVANA IVPB 100 mg Every 12 hours scheduled, intravenous, at 100 mL/hr, First dose on 01/12/25 at 0900, Please choose an indication: Pneumonia 926 (IVPB Started - Provider: Tory Melissa RN)1124 (IVPB Stopped - Provider: Tory Melissa RN)2010 (IVPB Started - Provider: Dolores Pizarro RN)2146 (IVPB Stopped - Provider: Dolores Pizarro RN) 0900 (IVPB Started - Provider: Faby Amin RN)1000 (IVPB Stopped - Provider: Faby Amin RN)2101 (IVPB Started - Provider: Dolores Pizarro RN)2204 (IVPB Stopped - Provider: Dolores Pizarro RN) 09 (IVPB Started - Provider: Faby Amin, JAY)1042 (IVPB Stopped - Provider: Faby Amin, JAY) escitalopram (LEXAPRO) tablet 10 mg 10 mg Daily, oral, First dose on 01/12/25 at 0900 0928 (Given - Provider: Tory Melissa RN) 0901 (Given - Provider: Faby Amin RN) 0943 (Given - Provider: Faby Amin RN) famotidine injection 20 mg 20 mg Daily, intravenous, First dose on Mon01/22/25 at 0900, Pharmacist to renally dose if CrCl is less than 50 mL/min or on CRRT. 0905 (Given - Provider: Faby Amin RN) 0943 (Given - Provider: Faby Amin RN) ferrous sulfate 300 mg (60 mg iron)/5 mL solution 300 mg 300 mg Daily, oral, First dose on Mon01/15/25 at 1400 0927 (Given - Provider: Tory Melissa RN) 0958 (Given - Provider: Faby Amin RN) 0943 (Not Given - Provider: Faby Amin RN - Reason: Patient/family refused) fluconazole (DIFLUCAN) IVPB 100 mg in sodium chloride 0.9 % 50 mL (premix) 100 mg Every 24 hours, intravenous, First dose on [place] 01/23/25 at 1030 1215 (IVPB Started - Provider: Faby Amin RN)1315 (IVPB Stopped - Provider: Faby Aimn RN) gabapentin (NEURONTIN) capsule 100 mg 100 mg 2 times daily, oral, First dose on Mon01/12/25 at 0200, On hold since Mon01/15/2025 at 0959 until manually unheld 0900 (Automatically Held - Provider: Donnie Jeffery MD)2100 (Not Given - Provider: Dolores Pizarro RN - Reason: Per Order) 0900 (Automatically Held - Provider: Donnie Jeffery MD)2100 (Not Given - Provider: Dolores Pizarro, RN - Reason: Per MD Order) 0900 (Automatically Held)1528 (Unheld by provider - Provider: Automatic Discharge Provider) guaiFENesin (ROBITUSSIN) 100 mg/5 mL syrup 300 mg 300 mg Every 6 hours scheduled, feeding tube, First dose on Mon01/13/25 at 2230, Look-alike/Sound-alike medication 0530 (Given - Provider: Bárbara Brunner RN)1141 (Given - Provider: Tory Melissa, JAY)1813 (Given - Provider: Tory Melissa RN)2346 (Given - Provider: Dolores Pizarro RN) 0500 (Given - Provider: Dolores Pizarro RN)1153 (Given - Provider: Faby Amin, RN)1850 (Not Given - Provider: Faby Amin RN - Reason: Patient/family refused)2308 (Given - Provider: Dolores Pizarro RN) 0513 (Given - Provider: Dolores Pizarro, JAY)1132 (Not Given - Provider: Faby Amin, JAY - Reason: Patient/family refused) heparin injection 5,000 Units 5,000 Units Every 12 hours scheduled, subcutaneous, First dose (after last modification) on Mon01/16/25 at 2100, On hold since Mon01/23/2025 at 0722 until manually unheld 0927 (Given - Provider: Tory Melissa RN)2011 (Given - Provider: Dolores Pizarro RN) 0901 (Given - Provider: Faby Amin RN)210 (Given - Provider: Dolores Pizarro RN) 0722 (Held by provider - Provider: Krystian Bhakta MD)0900 (Automatically Held - Provider: Krystian Bhakta MD)1528 (Unheld by provider - Provider: Automatic Discharge Provider) hydroCHLOROthiazide (HYDRODIURIL) tablet 12.5 mg 12.5 mg Daily, oral, First dose on Mon01/12/25 at 1600, On hold since Mon01/14/2025 at 0923 until manually unheld 0900 (Automatically Held - Provider: Donnie Jeffery MD) 0900 (Automatically Held - Provider: Donnie Jeffery MD) 0900 (Automatically Held)1528 (Unheld by provider - Provider: Automatic Discharge Provider) insulin regular (HUMULIN R,NOVOLIN R) injection 0-6 Units Every 6 hours scheduled, subcutaneous, First dose on Mon01/12/25 at 0600, Corrective Scale A 0 units for fingerstick blood glucose LESS than 140 mg/dL 1 unit subcutaneously once for fingerstick blood glucose [140] - [180] mg/dL 2 units subcutaneously once for fingerstick blood glucose [181] - [220] mg/dL 3 units subcutaneously once for fingerstick blood glucose [221] - [260] mg/dL 4 units subcutaneously once for fingerstick blood glucose [261] - [300] mg/dL 5 units subcutaneously once for fingerstick blood glucose [301] - [350] mg/dL 6 units subcutaneously once for fingerstick blood glucose [351] - [400] mg/dL Notify provider of glucose levels LESS than [70] and GREATER than [400] 0036 (Not Given - Provider: Bárbara Brunner RN - Reason: Order parameters not met)0531 (Given - Provider: Bárbara Brunner RN)1314 (Given - Provider: Tory Melissa RN)1813 (Given - Provider: Tory Melissa RN) 0016 (Not Given - Provider: Dolores Pizarro RN - Reason: Order parameters not met)0541 (Not Given - Provider: Dolores Pizarro RN - Reason: Order parameters not met)1153 (Given - Provider: Faby Amin RN)1850 (Not Given - Provider: Faby Amin RN - Reason: Patient/family refused) 0013 (Not Given - Provider: Dolores Pizarro RN - Reason: Order parameters not met)0555 (Not Given - Provider: Dolores Pizarro RN - Reason: Other (with Comment))1132 (Not Given - Provider: Faby Amin RN - Reason: Patient/family refused) ipratropium-albuteroL (DUO-NEB) 0.5 mg-3 mg(2.5 mg base)/3 mL nebulizer solution 3 mL 3 mL Every 6 hours (RT), nebulization, First dose (after last modification) on Mon01/15/25 at 1700, RESPIRATORY THERAPY TREATMENT Protect from Light, What is the respiratory therapy Modality? Small volume Nebulization 0445 (Not Given - Provider: Roshni Valladares, TACTICAL DEBRIEFER - Reason: Patient not available)1108 (Given - Provider: Sarah Lang, TACTICAL DEBRIEFER)1547 (Given - Provider: Sarah Lang CRT)2042 (Given - Provider: Mattie Noyola RRT) 0445 (Given - Provider: Mattie Noyola RRT)1037 (Not Given - Provider: Catarina David RRT - Reason: Patient not available - Comment: out of room)1514 (Given - Provider: Catarina David RRT)2047 (Given - Provider: Mattie Noyola RRT) 0504 (Given - Provider: Mattie Noyola RRT)1125 (Given - Provider: Shanti Martinez RRT) isosorbide mononitrate (IMDUR) 24 hr tablet 30 mg 30 mg Every morning before breakfast, oral, First dose on Mon01/12/25 at 0730, DO NOT CRUSH THIS DOSAGE FORM, On hold since Mon01/14/2025 at 0920 until manually unheld 0730 (Hold - Provider: Bárbara Brunner RN - Reason: Per MD Order) 0730 (Not Given - Provider: Dolores Pizarro RN - Reason: Per MD Order) 0730 (Automatically Held)1528 (Unheld by provider - Provider: Automatic Discharge Provider) melatonin tablet 3 mg 3 mg Every Night, oral, First dose on Mon01/12/25 at 2100 2012 (Given - Provider: Dolores Pizarro RN) 210 (Given - Provider: Dolores Pizarro RN) memantine (NAMENDA) tablet 5 mg 5 mg 2 times daily, oral, First dose on Mon01/12/25 at 0200, On hold since Mon01/22/2025 at 0714 until manually unheld 0928 (Given - Provider: Tory Melissa RN)2011 (Given - Provider: Dolores Pizarro RN) 0714 (Held by provider - Provider: Krystian Bhakta MD)0900 (Automatically Held - Provider: Krystian Bhakta MD)2099 (Not Given - Provider: Dolores Pizarro RN - Reason: Per MD Order) 0900 (Automatically Held - Provider: Krystian Bhakta MD)1528 (Unheld by provider - Provider: Automatic Discharge Provider) methylPREDNISolone sodium succinate (PF) (Solu-MEDROL) injection 40 mg 40 mg Daily, intravenous, First dose on Mon01/12/25 at 0900 0927 (Given - Provider: Tory Melissa RN) 0900 (Given - Provider: Faby Amin RN) 0942 (Given - Provider: Faby Amin RN) metoprolol tartrate (LOPRESSOR) tablet 25 mg (CANCELED) 25 mg 2 times daily, oral, First dose on Mon01/14/25 at 1000, Hold for systolic BP < 90 mmHg or for HR < 50 BPM 0928 (Given - Provider: Tory Melissa RN)2012 (Given - Provider: Dolores Pizarro, RN) 09 (Given - Provider: Faby Amin RN)2101 (Given - Provider: Dolores Pizarro RN) metoprolol tartrate (LOPRESSOR) tablet 50 mg 50 mg 2 times daily, oral, First dose (after last modification) on Mon01/23/25 at 0900, Hold for systolic BP < 90 mmHg or for HR < 50 BPM 0942 (Given - Provider: Faby Amin RN) pantoprazole (PROTONIX) injection 40 mg (CANCELED) 40 mg Every evening, intravenous, First dose on Mon01/12/25 at 1700, * DILUTE IN 10 ML NS AND GIVE IV SLOWLY OVER 3 MINUTES * 1630 (Given - Provider: Tory Melissa RN) pantoprazole (PROTONIX) injection 40 mg 40 mg 2 times daily, intravenous, First dose (after last modification) on Mon01/22/25 at 0900, * DILUTE IN 10 ML NS AND GIVE IV SLOWLY OVER 3 MINUTES * 09 (Given - Provider: Faby Amin RN)2101 (Given - Provider: Dolores Pizarro RN) 0942 (Given - Provider: Faby Amin RN) piperacillin-tazobactam (ZOSYN) 2.25 g in dextrose 5 % (D5W) 50 mL IVPB 2.25 g Every 6 hours, intravenous, Administer over 3 Hours, First dose on Mon01/13/25 at 1600, Please choose an indication: Pneumonia 0226 (IVPB Stopped - Provider: Bárbara Brunner RN)0402 (IVPB Started - Provider: Bárbara Brunner RN)0705 (IVPB Stopped - Provider: Tory Melissa RN)1141 (IVPB Started - Provider: Tory Melissa, JAY)1445 (IVPB Stopped - Provider: Tory Melissa RN)1813 (IVPB Started - Provider: Tory Melissa, JAY)2147 (IVPB Stopped - Provider: Dolores Pizarro, JAY)2251 (IVPB Started - Provider: Dolores Pizarro RN) 0152 (IVPB Stopped - Provider: Dolores Pizarro RN)0458 (IVPB Started - Provider: Dolores Pizarro, JAY)0758 (IVPB Stopped - Provider: Faby Amin, RN)0904 (IVPB Started - Provider: Faby Amin, RN)1204 (IVPB Stopped - Provider: Faby Amin, RN)1541 (IVPB Started - Provider: Faby Amin, RN)1841 (IVPB Stopped - Provider: Faby Amin, RN)2308 (IVPB Started - Provider: Dolores Pizarro, JAY) 0208 (IVPB Stopped - Provider: Dolores Pizarro, JAY)0513 (IVPB Started - Provider: Dolores Pizarro, JAY)0813 (IVPB Stopped - Provider: Faby Amin, JAY)0941 (IVPB Started - Provider: Faby Amin RN)1215 (IVPB Stopped - Provider: Faby Amin RN) Continuous Medication Order 01/21/2025 01/22/2025 01/23/2025 lactated Ringer's infusion 100 mL/hr Continuous, intravenous, Starting on Mon01/15/25 at 1300, For 20 hours PRN Medication Order 01/21/2025 01/22/2025 01/23/2025 acetaminophen (TYLENOL) tablet 1,000 mg 1,000 mg Every 6 hours PRN, oral, mild pain (1-3), Starting on Mon01/21/25 at 1503, Recommended maximum dose of acetaminophen is 4000 mg from all sources in 24 hours This medication is to be administered FIRST LINE for a pain scale of 1-3, Mild Acetaminophen benzonatate (TESSALON) capsule 100 mg 100 mg 3 times daily PRN, oral, cough, Starting on Mon01/12/25 at 0238, * DO NOT CRUSH THIS DOSAGE FORM * dextrose 50% (D50W) injection 25 g 25 g As needed, intravenous, low blood glucose (specify value in prn comments), less than 41 mg/dL or 41-69 mg/dL and unable to take PO, Starting on Mon01/12/25 at 0254, For 2 doses, Repeat blood glucose every 15 minutes until blood glucose greater than 70 mg/dL. Call Provider if not resolved after 2 treatments Repeat BS in 1 hour, retime for 1 hour after blood sugar greater than 70 mg/dL If less than 41: Repeat Finger stick within 5 minutes with same machine Send serum glucose level: Do not wait on lab to treat docusate sodium (COLACE) capsule 100 mg 100 mg 2 times daily PRN, oral, constipation, Starting on Mon01/12/25 at 0137, THIRD LINE Bowel Regimen - for prevention of constipation. glucagon injection 1 mg 1 mg As needed, intraMUSCULAR, low blood glucose (specify value in prn comments), For Patients without IV access and blood glucose 41-69 mg/dL AND unable to take PO OR Less than 41 mg/dL, Starting on Mon01/12/25 at 0254, For 2 doses, Caution: glucagon . Roll patient on their side when administering to prevent aspiration. Call Provider if not resolved after 2 treatments Repeat BS in 1 hour, retime for 1 hour after blood sugar greater than 70 mg/dL glucose chew tab 16 g 16 g As needed, oral, low blood glucose (specify value in prn comments), 41-69 mg/dL, Starting on Mon01/12/25 at 0254, For 3 doses, For Patients who can take oral AND blood glucose 41-69 mg/dL Give 4 Tabs every 15 minutes. Recheck blood glucose every 15 minutes and repeat 15 grams of carbohydrates until blood glucose is above 70 mg/dL. Give Meal or Snack Call Provider if not resolved after 3 treatments Repeat BS in 1 hour, retime for 1 hour after blood sugar greater than 70 mg/dL glycerin (laxative) suppository 1 suppository 1 suppository Daily as needed, rectal, constipation, constipation, Starting on Mon01/12/25 at 0137, 2nd line for treatment of constipation - give scheduled (in addition to 1st line agent) if no bowel movement in past 48 hours hydrALAZINE (APRESOLINE) injection 10 mg 10 mg Every 6 hours PRN, intravenous, high blood pressure (specify), SBP>160, Starting on Mon01/12/25 at 1938, 1st line Hold if SBP < 100 mmHg, DBP < 50 mmHg, or patient is on pressor. Look-alike/Sound-alike medication 0550 (Given - Provider: Dolores Pizarro RN) labetaloL (TRANDATE, NORMODYNE) injection 10 mg 10 mg Every 6 hours PRN, intravenous, high blood pressure (specify), SBP over 170 or DBP over 100, hold HR less than 60, Starting on 01/20/25 at 0355, 2nd line Hold for systolic BP < 90 mmHg or for HR < 50 BPM LORazepam (ATIVAN) tablet 0.5 mg 0.5 mg Every Night PRN, oral, anxiety, Starting on 01/12/25 at 0140 2012 (Given - Provider: Dolores Pizarro, RN) 2101 (Given - Provider: Dolores Pizarro RN) magnesium sulfate IVPB 2 g in sterile water 50 mL (premix) at 25 mL/hr, Administer over 120 Minutes, intravenous, Daily as needed, for magnesium level 1.3 to 1.7 mg/dL, Starting on 01/12/25 at 0137, If magnesium is replaced per protocol order, recheck 1 hour after replacement and the next morning. magnesium sulfate IVPB 2 g in sterile water 50 mL (premix) at 25 mL/hr, Administer over 120 Minutes, intravenous, 2 times daily PRN, for magnesium level less than 1.3 mg/dL, Starting on Mon01/12/25 at 0137, Total dose of 4 g for each low magnesium result. If magnesium is replaced per protocol order, recheck 1 hour after replacement and the next morning. polyethylene glycol (GLYCOLAX) packet 17 g 17 g Daily as needed, oral, constipation, Starting on 01/12/25 at 0137, FIRST LINE Bowel Regimen - for prevention of constipation. potassium bicarbonate (EFFER-K) disintegrating tablet 40 mEq 40 mEq Every 6 hours PRN, oral, other, K+ less or equal to 3.4, Starting on Mon01/13/25 at 1000, Do NOT crush or chew the effervescent tablet. Preparation: Dissolve 1 effervescent tablet in 3-4 ounces of cold water or juice and drink slowly. If giving through tube feeding, please flush feeding tube before and after this medication administration. potassium chloride IVPB 10 mEq in 100 mL sterile water (premix) 40 mEq Every hour PRN, intravenous, Administer over 60 Minutes, for potassium less than or equal to 3.4 mmol/L, Starting on Maricel 01/16/25 at 0815, Total Dose 40 mEq, use only if unable to administer PO. Max Rate 10mEq/hr. If potassium is replaced per protocol order, recheck 1 hour after replacement and the next morning. promethazine (PHENERGAN) 12.5 mg in sodium chloride 0.9 % (NS) 50 mL IVPB (Immediate Use Only) 12.5 mg Every 6 hours PRN, intravenous, at 150 mL/hr, nausea, vomiting, Starting on 01/12/25 at 0137, 1st line. Give IV if patient is unable to take orally. If inadequate response within 60 minutes, proceed to next line-agent for same PRN Reason or contact provider if no further options ordered. sodium chloride flush 10 mL(Linked Group 1) 10 mL As needed, intravenous, line care, Starting on 01/12/25 at 0137, Every 8 hours and PRN to flush Linked Groups Order Group 1: Insert Peripheral IV (CANCELED) STAT, Once, On 01/12/25 at 0138, For 1 occurrence And Saline Lock IV (CANCELED) Routine, Once, On 01/12/25 at 0138, For 1 occurrence And sodium chloride flush 10 mLJump to med 10 mL As needed, intravenous, line care, Starting on 01/12/25 at 0137, Every 8 hours and PRN to flush documented in this encounter Care Teams Roofing Technician Relationship Specialty Start Date End Date Roe Gleason MD [address] [place] [id number] PCP - General Adolescent Medicine 01/12/25 documented as of this encounter
--- OUTSIDE RECORDS SUMMARY | 2025-01-23 06:45 | XMS_ITS ---
Author Organization [facility] PE D JANEE Address [address] [place] [address] Care Team Providers Care Maintenance Painter Name Role Phone Roe Gleason Primary Care Provider REASON FOR VISIT fu Encounters Encounter Location Date Provider Diagnosis [facility] [address] [address] 01/23/2025 Roe Gleason Plan Of Treatment No Information Progress Notes * BERTHA Margarita JDOB:1950 (74 yo F)Acc No.[id number]:01/23/2025 Progress Notes Patient: Margarita GALEANO Provider: Arleen Gleason MD :1950 A ge:74 Y S ex:Female Date:01/23/2025 Address:[id number] Subjective: * Chief Complaints: * 1 . Fu. * Medical History: Objective: * Vitals: Assessment: Plan: * Treatment: * * Electronic signature of Drew Gleason MD FAAP on 02/02/2025 at 07:07 PM EST Sign off status: Pending * Provider: Arleen Gleason MD Date: Generated for Printi ng/Faxing/eTransmitting on: 04/04/2024 07:07 PM EST
--- NOTE | 2025-02-02 18:46 | ECG_ITS ---
APPROVED REPORT Exam: Resting ECG HR:98 bpm ECG Measurements Heart Rate 98 AXES AK 187 P 50 QRSd 82 QRS -19 QT 316 T 102 QTc 371 Conclusion SINUS RHYTHM ANTERIOR MYOCARDIAL INFARCTION , PROBABLY OLD [40+ ms Q WAVE AND/OR ST/T ABNORMALITY IN V3/V4] INFERIOR MYOCARDIAL INFARCTION , OF INDETERMINATE AGE [40+ ms Q WAVE AND/OR ST/T ABNORMALITY IN II/aVF] MODERATE T-WAVE ABNORMALITY, CONSIDER LATERAL ISCHEMIA [-0.1+ mV T-WAVE IN I/aVL/V5/V6] ABNORMAL ECG UNCONFIRMED REPORT Electronically signed by : ETTA CASAS, 02/03/2025 02:48:16
[2025-02-02 18:47] VITALS: BP 155/62; PULSE 98; RESP 38; O2SAT 87
--- NOTE | 2025-02-02 18:53 | [facility].EDCP ---
Discharge Plan Disposition Patient Disposition: Hospice - Home Condition: Good Prescriptions Prescriptions: No Action atorvastatin 80 mg tablet 80 mg PO HS aspirin 325 mg tablet 325 mg PO DAILY multivitamin [Daily Multi-Vitamin] Tablet 1 tab PO DAILY escitalopram oxalate 10 mg tablet 10 mg PO DAILY Patient Comments: TAKE 1 TABLET BY MOUTH ONCE DAILY. pantoprazole 40 mg tablet,delayed release (DR/EC) 40 mg PO DAILY Patient Comments: ONE (1) TAB(S) ORALLY ONCE A DAY 90 DAYS Kerendia 10 mg tablet 10 mg PO DAILY Qty: 30 2RF cholecalciferol (vitamin D3) 25 mcg (1,000 unit) capsule 25 mcg PO HS memantine 10 mg tablet 10 mg PO BID Patient Comments: TAKE 1 TABLET BY MOUTH TWICE DAILY. donepezil 5 mg tablet 5 mg PO DAILY ipratropium-albuterol 0.5 mg-3 mg(2.5 mg base)/3 mL solution for nebulization 3 ml inhalation QID 90 Days Qty: 270 2RF isosorbide mononitrate 30 MG tablet 30 mg PO DAILY lisinopril 40 mg tablet 40 mg PO BID metformin 1,000 mg tablet 1,000 mg PO BID Patient Comments: TAKE 1 TABLET BY MOUTH TWICE DAILY gabapentin 100 mg capsule 100 mg PO BID Patient Comments: TAKE 1 CAPSULE BY MOUTH TWICE DAILY lorazepam 0.5 mg tablet 0.5 mg PO HS magnesium oxide 400 mg (241.3 mg magnesium) tablet 400 mg PO BID Patient Comments: TAKE 1 TABLET BY MOUTH TWICE DAILY ferrous sulfate [FeroSul] 325 mg (65 mg iron) tablet 325 mg PO DAILY Patient Comments: TAKE ONE (1) TABLET BY MOUTH DAILY ,TAKE WITHVITAMINC azithromycin 500 mg Recon Soln 500 mg IV Q24H Qty: 0 0RF ceftriaxone 2 gram Recon Soln 2 g IV Q24H Qty: 0 0RF amlodipine 5 MG tablet 5 mg PO DAILY metoprolol succinate 100 mg tablet extended release 24 hr 100 mg PO DAILY Patient Comments: TAKE 1 TABLET BY MOUTH ONCE DAILY prednisone 20 mg Tablet 40 mg PO DAILY 4 Days Qty: 8 0RF Trelegy Ellipta 100-62.5-25 mcg blister with device 1 inh inhalation DAILY Qty: 60 0RF furosemide 20 mg tablet 40 mg PO DAILY 30 Days Qty: 0 0RF Patient Comments: TAKE 1 TABLET BY MOUTH DAILY. potassium chloride [K-Tab] 20 mEq tablet extended release 40 meq PO DAILY Qty: 14 0RF Referrals Follow up/Referrals: Roe Gleason MD [Primary Care Provider, Internal Medicine] - See instructions Activity Restrictions/Add. Instructions Additional Instructions/Restrictions: You were evaluated in the emergency department today. As we discussed, it is likely that your oxygen is low because you are respiratory failure is worsening. Please contact hospice once you get home to make sure that they get you all the support that you need at home to make sure that you are comfortable. We did not do any sort of workup here today since you did not want any aggressive measures and did not want to stay in the hospital for difficulty breathing. You are welcome to return to the emergency department if you change your mind. Clinical Impressions Clinical Impression: Acute on chronic hypoxic respiratory failure Instructions Patient Instructions: DI for Respiratory Failure, DI for Hypoxia Print Language Print Language: Telugu Discharge ED Provider: Ana Schultz HPI General Chief Complaint: Shortness of Breath/Dyspnea Stated Complaint: SOB Time Seen by Provider: 02/02/25 18:48 History of Present Illness HPI narrative: This patient is a 74-year-old female with a history of COPD, chronic respiratory failure, CHF, CVA, CAD, Hypertension, diabetes, hyperlipidemia, kyphosis, left pleural effusion, and respiratory failure requiring bronch for mucous plugging causing an left lung obstruction presenting with concern for shortness of breath. Patient was just discharged on hospice several days ago per the daughter. She is currently on hospice through hospice [facility] in [facility]. Daughter reports that she has had low O2 saturations at home with O2 saturation in the 80s on 8 L nasal cannula. She states that because of this, she called hospice who advised that as long as the patient was comfortable and not turning blue, that that was okay. Daughter became concerned and brought her into the ED for evaluation. I had goals of care discussion with the patient and daughter at bedside and they advised that ultimately, she does not want any invasive testing, as she would not want to undergo any procedure or be admitted to the hospital for any current issue. They were hoping that we can get her increased respiratory support or get her tanked up a bit so that she can return home to be on home hospice, as her goal is not to be admitted and in the hospital. Related Data Home Medications ?Medication ?Instructions ?Recorded ?Confirmed atorvastatin 80 mg tablet 80 mg PO HS 04/05/17 01/09/25 aspirin 325 mg tablet 325 mg PO DAILY 09/14/17 01/09/25 isosorbide mononitrate 30 mg 30 mg PO DAILY 03/26/18 01/09/25 tablet,extended release 24 hr amlodipine 5 mg tablet 5 mg PO DAILY 05/20/19 01/09/25 cholecalciferol (vitamin D3) 25 25 mcg PO HS 03/13/20 01/09/25 mcg (1,000 unit) capsule memantine 10 mg tablet 10 mg PO BID 09/18/20 01/09/25 donepezil 5 mg tablet 5 mg PO DAILY 05/21/21 01/09/25 multivitamin (Daily Multi-Vitamin 1 tab PO DAILY 12/03/21 01/09/25 tablet) escitalopram oxalate 10 mg tablet 10 mg PO DAILY 06/17/22 01/09/25 lisinopril 40 mg tablet 40 mg PO BID 01/21/23 01/09/25 metformin 1,000 mg tablet 1,000 mg PO BID 01/22/23 01/09/25 pantoprazole 40 mg tablet,delayed 40 mg PO DAILY 02/21/24 01/09/25 release gabapentin 100 mg capsule 100 mg PO BID 03/11/24 01/09/25 lorazepam 0.5 mg tablet 0.5 mg PO HS 03/11/24 01/09/25 ferrous sulfate 325 mg (65 mg 325 mg PO DAILY 06/27/24 01/09/25 iron) tablet (FeroSul) magnesium oxide 400 mg (241.3 mg 400 mg PO BID 06/27/24 01/09/25 magnesium) tablet metoprolol succinate 100 mg 100 mg PO DAILY 01/02/25 01/09/25 tablet,extended release 24 hr Previous Rx's ?Medication ?Instructions ?Recorded ipratropium 0.5 mg-albuterol 3 mg 3 ml inhalation QID 90 days #270 mL 10/16/24 (2.5 mg base)/3 mL nebulization soln fluticasone fur. 100 mcg-umeclid 1 inh inhalation DAILY #60 ea 01/02/25 62.5 mcg-vilant 25 mcg inhalat.powder (Trelegy Ellipta) furosemide 20 mg tablet 40 mg (2 x 20 mg) PO DAILY 30 days 01/02/25 #0 tabs potassium chloride 20 mEq 40 meq (2 x 20 mEq) PO DAILY #14 01/02/25 tablet,extended release (K-Tab) tabs prednisone 20 mg tablet 40 mg (2 x 20 mg) PO DAILY 4 days 01/02/25 #8 tabs finerenone 10 mg tablet (Kerendia) 10 mg PO DAILY #30 tabs 01/09/25 azithromycin 500 mg intravenous 500 mg IV Q24H #0 ea 01/12/25 solution ceftriaxone 2 gram intravenous 2 g IV Q24H #0 ea 01/12/25 solution Allergies Allergy/AdvReac Type Severity Reaction Status Date / Time Iodinated Contrast Media Allergy Mild Unknown Verified 01/09/25 10:58 allergy reaction naproxen Allergy Mild Unknown Verified 01/09/25 10:58 allergy reaction PFSH [facility] Disclaimer: The information contained in this section may have been updated after the patient was seen, as this information can be updated by other users. Medical History Dyspnea (HFpEF) heart failure with preserved ejection fraction Hypokalemia Respiratory failure with hypoxia and hypercapnia Left lower lobe pneumonia Pleural effusion COPD (chronic obstructive pulmonary disease) Pneumonia Pneumonia Acute hypoxic respiratory failure Diastolic CHF Diabetes type 2, controlled Vascular dementia History of CVA (cerebrovascular accident) Acute hyperkalemia Hypoxia Pleural effusion, left Multifocal pneumonia Severe sepsis SVT (supraventricular tachycardia) Acute and chronic respiratory failure with hypoxia Kyphosis Chronic respiratory failure with hypoxia Pulmonary emphysema History of smoking 30 or more pack years Pericardial effusion Diabetes mellitus Hyperlipidemia Hypertensive heart disease Hypertension CAD (coronary artery disease) Cataract SVT (supraventricular tachycardia) COPD exacerbation COPD (chronic obstructive pulmonary disease) Respiratory failure with hypoxia History of CVA (cerebrovascular accident) Vomiting Weight loss Lumbar stenosis Thoracic compression fracture Cerebral atrophy Sepsis UTI (urinary tract infection) CAP (community acquired pneumonia) Carotid artery stenosis Tobacco dependence syndrome Coronary arteriosclerosis Surgical History History of coronary artery bypass graft S/P CABG x 3 Family History Other Diabetes Family history of hyperlipidemia Family history of hypertension Parkinsons Social History Smoking Status: Never smoker alcohol intake: never counseling provided: none substance use type: denies use current occupational status: retired Travel in the last 8 weeks?: Inside the [place] household members: family housing: house caffeine: Yes Have you lived/traveled outside [place] in past 30 days?: No Contact w/someone who lives/traveled outside [place] past 30 days?: No Exposure to someone with infectious disease in past 14 days?: No Do you have a fever (greater than 100.4 F or 38 C)?: No Have you tested positive for COVID-19?: No Exposed to someone with COVID-19 in past 14 days?: No Do you have a sore throat?: No Do you have a cough?: No Do you have any weakness?: No Do you have any diarrhea?: No Are you experiencing any unusual bleeding?: No Do you have any muscle aches/pain?: No Do you have any abdominal pain?: No Are you experiencing loss of taste or smell?: No Other Medical History Have you received the Flu Vaccine for this season: No Have you received the Pneumonia Vaccine: No ROS Obtained: Yes All systems reviewed & no additional complaints except as documented Physical Exam Narrative Physical exam: Chronically ill-appearing in mild respiratory distress General General appearance: alert and in distress Head Head exam: atraumatic and normocephalic Eye Eye exam: Present normal appearance, PERRL and EOMI ENT ENT exam: Present normal exam, normal oropharynx, mucous membranes moist and normal external ear exam Neck Neck exam: Present normal inspection, full ROM and trachea midline; Absent tenderness Chest Chest inspection: Present normal inspection and symmetric chest wall rise; Absent tenderness Respiratory Respiratory exam: Present respiratory distress, wheezes, accessory muscle use and prolonged expiratory phase; Absent stridor Cardiovascular Cardiovascular exam: Present regular rate and normal rhythm Abdominal Exam Abdominal exam: Present soft; Absent distention, tenderness or guarding Extremities Exam Extremities exam: Present normal inspection, full ROM and normal capillary refill; Absent tenderness or edema Back Exam Back exam: Present normal inspection and full ROM; Absent tenderness Neurological Exam Neurological exam: Present alert, oriented X3, CN II-XII intact and normal gait; Absent motor sensory deficit Psychiatric Psychiatric exam: Present normal affect and normal mood Skin Skin exam: Present warm, dry and pallor HEART Score HEART Score HEART Score assessment performed?: No Critical Care Critical Care Time Critical Care Time: No Medical Decision Making Jose Inquiry Pt receiving controlled substance: No Vital Signs Vital Signs: 02/02/25 18:47 02/02/25 18:55 02/02/25 18:55 Temperature 97.2 F L Temperature Source Axillary Pulse Rate 98 H Pulse Rate [Right] 103 H Respiratory Rate 38 H 16 Blood Pressure 155/62 H Blood Pressure [Right Arm] 155/62 H Blood Pressure Mean [Right Arm] 93 Blood Pressure Source Blood Pressure Position 02 Sat by Pulse Oximetry 87 L 65 L Oxygen Delivery Method Nasal Cannula Room Air Oxygen Flow Rate (LPM) 10 Fraction of Inspired Oxygen 100 02/02/25 19:00 02/02/25 19:30 02/02/25 21:35 Temperature Temperature Source Pulse Rate 99 H 105 H Pulse Rate [Right] Respiratory Rate 34 H 32 H Blood Pressure 144/74 H 136/64 Blood Pressure [Right Arm] Blood Pressure Mean [Right Arm] Blood Pressure Source Blood Pressure Position 02 Sat by Pulse Oximetry 96 99 91 L Oxygen Delivery Method Nasal Cannula Oxygen Flow Rate (LPM) 6 Fraction of Inspired Oxygen 02/02/25 22:08 Temperature 97.2 F L Temperature Source Axillary Pulse Rate 104 H Pulse Rate [Right] Respiratory Rate 24 Blood Pressure 135/59 L Blood Pressure [Right Arm] Blood Pressure Mean [Right Arm] Blood Pressure Source Automatic Cuff Blood Pressure Position Sitting 02 Sat by Pulse Oximetry Oxygen Delivery Method Nasal Cannula Oxygen Flow Rate (LPM) 6 Fraction of Inspired Oxygen Response Orders (Tests/Meds): ED MEDICATIONS Discontinued Medications Generic Name Dose Route Start Last Admin Trade Name Freq PRN Reason Stop Dose Admin Albuterol Sulfate 20 mg 02/02/25 20:01 02/02/25 20:54 Albuterol 0.083% 2.5 Mg/3 Ml [facility] 02/02/25 20:02 20 mg ONCE ONE Administration Albuterol/Ipratropium 9 ml 02/02/25 18:53 02/02/25 19:07 Ipratropium/Albuterol 3 Ml Neb 02/02/25 18:54 9 ml ONCE ONE Administration ECG Data Tracing #1: Attestation: I reviewed this ECG and interpreted as documented below: ECG Narrative: I independently interpreted EKG at 1848 and noted sinus rhythm with a ventricular of [address]/T wave changes without acute STEMI ECG initial impression date: 02/02/25 ECG initial impression time: 18:48 MDM Narrative Medical Decision Narrative: In summary, this patient is a 74-year-old female presenting to the Emergency Department for evaluation of shortness of breath, low O2 saturation. Differential diagnoses considered include but are not limited to pneumonia, respiratory failure, mucous plugging, pleural effusion, COPD exacerbation, PE. Ruling out the most morbid conditions drove assessment. It should be noted patient's history includes COPD, chronic respiratory failure, CAD, CVA, hypertension, diabetes, hyperlipidemia, recurrent aspiration, pleural effusion, kyphosis which likely are not at goal therapy. This complicates all aspects of care by increasing patient's risk for morbidity. I reviewed patient's past medical records and noted prior evaluations for respiratory failure in the ED in the past with most recent transfer to [place]. On exam, the patient is in respiratory distress. She is chronically ill-appearing, pale. On a nonrebreather, her O2 saturation is around 85 to 86%. She has bilateral breath sounds, though diminished. Patient was recently placed on hospice for respiratory failure. The patient and her daughter are both at bedside, and I had long goals of care discussion with them. They advised that they do not want any IV or lab evaluation as they would not want any intervention upon any abnormalities. They do not want any invasive procedures such as cardiac catheterization if she is found to have abnormal EKG with concern for heart attack. They do not want bronch even if she had another mucous plug again. They wanted increased oxygen support for her at home, as they became scared with her oxygen being low. Their goal is ultimately to go home right away with increased oxygen support, as the patient has goals to at home and not be admitted to the hospital. I advised to the family that it may not be possible for us to improve her oxygen saturation simply by increasing her oxygen support with BiPAP, which is what she has required in the past. After long discussion with family and patient, we agreed to trial BiPAP to see if we can help open up her airways a bit and also administer 3 inline DuoNebs. We also called her hospice care team to seek further evaluation and recommendations, as I would love to help the patient with her goal of being able to go back home and feel comfortable doing so. I had a discussion with the patient's hospice care nurse who advised that they are not able to offer BiPAP, CPAP, or other noninvasive respiratory support at home, but that they can offer medications to help make sure that the patient is comfortable such as morphine. They advised they would be happy to assess the patient at home in the event that she does choose to go back home tonight. She is doing well after the nebs on BiPAP right now and I was able to wean her from 80% FiO2 on BiPAP down to 40% FiO2. Their goal is still to go home, so we will transition her back to a nasal cannula in anticipation of doing so. Patient was weaned back to nasal cannula, was provided with new oxygen tank per Aditi, and was discharged home in the care of hospice. I gave family instructions to contact hospice to let them know that they were going home.
[2025-02-02 18:55] VITALS: BP 155/62; PULSE 103; RESP 16; RESP 18; RESP 34; TEMP 36.2; O2SAT 65; BMI 26.9
[2025-02-02 19:00] VITALS: BP 144/74; PULSE 99; RESP 34; O2SAT 96
--- NOTE | 2025-02-02 19:00 | PC.NURSE ---
Called [facility] so she could talk with them regarding this patient. they are going to call back to speak with her.
--- NOTE | 2025-02-02 19:01 | PC.NURSE ---
pt immediately placed on nonrebreather due to saturation of 65%. saturation now 94%
--- NOTE | 2025-02-02 19:02 | PC.NURSE ---
pt now placed on bipap. tolerating well. duoneb infusing
[2025-02-02] MEDS: IPRATROPIUM/ALBUTEROL 3 ML NEB 9 ML IH (19:07)
--- OUTSIDE RECORDS SUMMARY | 2025-02-02 19:08 | XMS_ITS | Clinical Summary ---
Author Organization [employer] ([place], [place], [place], [place], [place]) Address [address] [address] Care Team Providers Care Science Technician Name Role Phone Roe Gleason MD Primary Care Provider + [phone] Allergies No known active allergies Medications amLODIPine (NORVASC) 5 MG tablet Take 1 tablet (5 mg total) by mouth daily. Active atorvastatin (LIPITOR) 80 MG tablet Take 1 tablet (80 mg total) by mouth nightly. Active donepeziL (ARICEPT) 5 MG tablet Take 1 tablet (5 mg total) by mouth nightly. Active escitalopram (LEXAPRO) 10 MG tablet Take 1 tablet (10 mg total) by mouth daily. Active gabapentin (NEURONTIN) 100 MG capsule Take 1 capsule (100 mg total) by mouth 2 (two) times daily. Active isosorbide mononitrate (IMDUR) 30 MG 24 hr tablet Take 1 tablet (30 mg total) by mouth every morning before breakfast. Active LORazepam (ATIVAN) 0.5 MG tablet Take 1 tablet (0.5 mg total) by mouth nightly. Max Daily Amount: 0.5 mg Active memantine (NAMENDA) 10 MG tablet Take 1 tablet (10 mg total) by mouth 2 (two) times daily. Active metFORMIN (GLUCOPHAGE) 1000 MG tablet Take 1 tablet (1,000 mg total) by mouth 2 (two) times daily with breakfast and dinner. Active metoprolol succinate (TOPROL-XL) 100 MG 24 hr tablet Take 1 tablet (100 mg total) by mouth daily. Active furosemide (LASIX) 20 MG tablet Take 1 tablet (20 mg total) by mouth daily. Active fluticasone-um eclidin-vilant er (Trelegy Ellipta) 100-62.5-25 mcg dsdv Inhale 1 puff by mouth daily. Active ipratropium-al buteroL (DUO-NEB) 0.5 mg-3 mg(2.5 mg base)/3 mL nebulizer solution Inhale 3 mLs by nebulization 4 (four) times daily. Active loratadine (CLARITIN) 10 mg tablet Take 1 tablet (10 mg total) by mouth daily as needed for allergies. 01/24/20 Active aspirin 81 MG chewable tablet Take 1 tablet (81 mg total) by mouth daily for 30 days. 01/25/202024 Active aspirin 325 MG tablet Take 1 tablet (325 mg total) by mouth daily. 2024 Discontinued(S top Taking at Discharge) ferrous sulfate 325 (65 FE) MG tablet Take 1 tablet (325 mg total) by mouth nightly. 2024 Discontinued(S top Taking at Discharge) furosemide (LASIX) 40 MG tablet Take 1 tablet (40 mg total) by mouth daily. 2024 Discontinued loratadine (CLARITIN) 10 mg tablet Take 1 tablet (10 mg total) by mouth daily. 2024 Discontinued lisinopriL (ZESTRIL) 40 MG tablet Take 1 tablet (40 mg total) by mouth 2 (two) times daily. 2024 Discontinued(S top Taking at Discharge) magnesium oxide (MAG-OX) 400 mg tablet Take 1 tablet (400 mg total) by mouth 2 (two) times daily. 2024 Discontinued(S top Taking at Discharge) pantoprazole (PROTONIX) 40 MG tablet Take 1 tablet (40 mg total) by mouth daily. 2024 Discontinued(S top Taking at Discharge) multivitamin with minerals tablet Take 1 tablet by mouth daily. 2024 Discontinued(S top Taking at Discharge) finerenone (Kerendia) 10 mg tab Take 1 tablet by mouth daily. 2024 Discontinued(S top Taking at Discharge) cholecalcifero l (VITAMIN D3) 25 mcg (1,000 unit) tablet Take 1 tablet (1,000 Units total) by mouth daily. 2024 Discontinued(S top Taking at Discharge) fluconazole (DIFLUCAN) 40 mg/mL suspension Take 2.5 mLs (100 mg total) by mouth daily for 7 days. 17.5 mL 01/25/20 25 2024 Active Problems Problem Noted Date Diagnosed Date Aspiration pneumonia 01/12/2025 Bronchial obstruction 01/12/2025 Encounters Date Type Department Care Team Description 01/12/2025 1:27 AM EDT - 01/23/2025 2:58 PM EDT Hospital Encounter [facility] Cardiac Telemetry [address] [place] [address] Nathan Malhotra MD Siddiqi, Ismaeel, DO Elsallabi, Osama, MD Kredan, Tawfik, MD Zohary, Hossam, MD Discharge Disposition: Home or Self Care 01/12/2025 Travel from Last 3 Months Social History Tobacco Use Types Packs/Day Years [...] any time in the past [address] [facility], were you homeless or living in a fci (including now)? No 01/19/2025 Utilities Answer Date [...] harm? Never 01/12/2025 How often does anyone, inclu ding family and friends, scream or curse at [...] Do you speak a language other than German at [facility]? No 01/12/2025 Do you want help with [...] Mass Index 20.71 01/12/2025 2:05 AM EDT Plan of Treatment Health Maintenance Due Date Last Done Comments CT Colonography 1950 Colonoscopy 1950 Colorectal Cancer Screening 1950 DXA SCAN 1950 FOBT/FIT 1950 Fit-DNA (Cologuard) 1950 Sigmoidoscopy 1950 Depression Screening (12+) 1962 Hepatitis C Screening 1968 DTAP/TDAP/TD VACCINES (1 - Tdap) 1969 Breast Cancer Screening 1990 Respiratory Syncytial Virus (RSV) Adult or (1 - Risk 60-74 years 1-dose series) 2010 Shingles Vaccine (Zoster) (2 of 2) 03/17/20202019 Falls Risk Screening 03/27/2024 COVID-19 VACCINE (3 - 2024-2 6 season) 2024 06/19/2020, 05/22/2020 Medicare IPPE (Welcome to Medicare) G0402 12/25/2024 Tobacco Cessation Counseling and Screening (12+) 01/19/2026 01/19/2025 Pneumococcal 50+ years Completed , 10/24/2017, 10/20/2015 Influenza Vaccine Completed 11/19/2024, , 12/07/2021, Additional history exists Procedures Procedure Name Priority Date/Time Associated Diagnosis Comments XR CHEST AP PORTABLE Routine 01/23/2025 6:26 AM EDT NOVA GLUCOSE POC Routine 01/23/2025 5:50 AM EDT NOVA GLUCOSE POC Routine 01/22/2025 11:5 9 PM EDT NOVA GLUCOSE POC Routine 01/22/2025 11:3 9 AM EDT [place] MODIFIED BARIUM SWALLOW Routine 01/22/2025 10:54 AM EDT PHOSPHORUS Routine 01/22/2025 8:56 AM EDT MAGNESIUM Routine 01/22/2025 8:56 AM EDT CBC W/ AUTO DIFF Routine 01/22/2025 8:56 AM EDT BASIC METABOLIC [...] GLUCOSE POC Routine 01/18/2025 6:09 AM EDT BASIC METABOLIC PANEL Routine 01/18/2025 4:29 AM EDT CBC HEMOGRAM (SJ-BKR) Routine 01/18/2025 4:29 AM EDT MAGNESIUM Routine 01/18/2025 4:29 AM EDT XR CHEST [...] AP PORTABLE Routine 01/17/2025 4:45 AM EDT BASIC METABOLIC PANEL Routine 01/17/2025 3:31 AM EDT CBC HEMOGRAM (SJ-BKR) Routine 01/17/2025 3:31 AM EDT MAGNESIUM Routine 01/17/2025 3:31 AM EDT NOVA GLUCOSE POC Routine 01/16/2025 11:5 2 PM EDT NOVA GLUCOSE POC Routine 01/16/2025 5:39 PM EDT POTASSIUM Routine 01/16/2025 12:17 PM EDT PHOSPHORUS Add-On 01/16/2025 12:17 PM EDT NOVA GLUCOSE POC Routine 01/16/2025 11:3 6 AM EDT XR CHEST AP PORTABLE Routine 01/16/2025 4:58 AM EDT PHOSPHORUS Add-On 01/16/2025 3:36 AM EDT BASIC METABOLIC PANEL Routine 01/16/2025 3:36 AM EDT CBC HEMOGRAM (SJ-BKR) Routine 01/16/2025 3:36 AM EDT MAGNESIUM Routine 01/16/2025 3:36 AM EDT NOVA GLUCOSE [...] AP PORTABLE Routine 01/15/2025 4:53 AM EDT BASIC METABOLIC PANEL Routine 01/15/2025 3:37 AM EDT CBC HEMOGRAM (SJ-BKR) Routine 01/15/2025 3:37 AM EDT MAGNESIUM Routine 01/15/2025 3:37 AM EDT NOVA GLUCOSE POC Routine 01/15/2025 12:2 2 AM EDT FS_MODEL_IP_ECG 12-LEAD Routine 01/14/2025 9:04 PM EDT NOVA GLUCOSE POC Routine 01/14/2025 5:45 PM EDT NOVA GLUCOSE POC Routine 01/14/2025 12:3 9 PM EDT PNEUMONIA PCR PANEL Routine 01/14/2025 1 1:36 AM EDT SPIN/CONCENTRATION CHARGE Routine 01/14/2025 11:33 AM EDT FUNGUS CULTURE W/AALIYAH OR MAYTE INK STAT 01/14/2025 11:33 AM EDT AFB CULTURE AND STAIN STAT 01/14/2025 11:33 AM EDT RESPIRATORY CULTURE Routine 01/14/2025 1 1:33 AM EDT PNEUMONIA PCR PANEL W/RESP CX Routine 01/14/2025 11:33 AM EDT XR CHEST AP PORTABLE Routine 01/14/2025 5:53 AM EDT NOVA GLUCOSE POC Routine 01/14/2025 5:24 AM EDT COMPREHENSIVE METABOLIC PANEL Routine 01/14/2025 3:53 AM EDT CALCIUM, IONIZED Routine 01/14/2025 3:53 AM EDT MAGNESIUM Routine 01/14/2025 3:53 AM EDT CBC HEMOGRAM [...] AP PORTABLE STAT 01/13/2025 5:29 PM EDT MAGNESIUM Routine 01/13/2025 1:41 PM EDT POTASSIUM Routine 01/13/2025 1:[address] CHEST WITHOUT IV CONTRAST STAT 01/13/2025 12:20 PM EDT NOVA GLUCOSE POC Routine 01/13/2025 11:5 7 AM EDT ECHO COMPLETE (DOPPLER / COLOR) WO CONTRAST Routine 01/13/2025 9:55 AM EDT FS_MODEL_IP_ECG 12-LEAD Routine 01/13/2025 8:05 AM EDT PHOSPHORUS Add-On 01/13/2025 6:15 AM EDT COMPREHENSIVE METABOLIC PANEL Routine 01/13/2025 6:15 AM EDT MAGNESIUM Routine 01/13/2025 6:15 AM EDT NOVA GLUCOSE POC Routine 01/13/2025 6:12 AM EDT XR CHEST AP PORTABLE Routine 01/13/2025 5:31 AM EDT CALCIUM, IONIZED Routine 01/13/2025 4:09 AM EDT CBC HEMOGRAM (SJ-BKR) Routine 01/13/2025 4:09 AM EDT NOVA GLUCOSE POC Routine 01/13/2025 12:0 4 AM EDT BASIC METABOLIC PANEL Add-On 01/12/2025 7:49 PM EDT NOVA GLUCOSE POC Routine 01/12/2025 5:12 PM EDT NOVA GLUCOSE POC Routine 01/12/2025 12:0 8 PM EDT LEGIONELLA ANTIGEN, URINE Routine 01/12/2025 10:33 AM EDT STREP PNEUMONIAE URINE ANTIGEN Routine 01/12/2025 10:33 AM EDT FS_MODEL_IP_ECG 12-LEAD Routine 01/12/2025 8:46 AM EDT RESPIRATORY CULTURE Routine 01/12/2025 6 :07 AM EDT PNEUMONIA PCR PANEL W/RESP CX Routine 01/12/2025 6:07 AM EDT NOVA GLUCOSE POC Routine 01/12/2025 5:52 AM EDT XR CHEST AP PORTABLE STAT 01/12/2025 3:42 AM EDT PROBNP Add-On 01/12/2025 3:30 AM EDT PROCALCITONIN Routine 01/12/2025 3:30 AM EDT PHOSPHORUS Routine 01/12/2025 3:30 AM EDT LACTIC ACID (SJ - BKR) Routine 3:30 AM EDT C-REACTIVE PROTEIN Routine 01/12/2025 3: 30 AM EDT COMPREHENSIVE METABOLIC PANEL Routine 01/12/2025 3:30 AM EDT CALCIUM, IONIZED Routine 01/12/2025 3:30 AM EDT RESPIRATORY PANEL Routine 01/12/2025 3:2 9 AM EDT MRSA SCREEN Routine 01/12/2025 3:29 AM EDT NOVA GLUCOSE POC Routine 01/12/2025 2:09 AM EDT BASIC METABOLIC PANEL Routine 01/12/2025 2:05 AM EDT CBC HEMOGRAM (SJ-BKR) Routine 01/12/2025 2:05 AM EDT MAGNESIUM Routine 01/12/2025 2:05 AM EDT EKG-SCANNED 01/12/2025 from Last 3 Months Results * XR chest AP portable (01/23/2025 6:26 AM EDT) Only the most recent of14 resultswithin the time period is included. Anatomical Region Laterality Modality Chest X-Ray 01/23/2025 9:14 AM EDT Impressions 01/23/2025 9:20 AM EDT 1. Branching high density in the lung bases is consistent with aspiration of barium. 2. Dense left lower lung consolidation. Images reviewed, interpreted, and dictated by Dr. Juan Bonilla. Transcribed by Callie Garnica PA-C. Narrative [...] Juan Bonilla. Transcribed by Callie Garnica PA-C. us Aki Garciaprakash GUZMAN IMG DIAGNOSTIC IMAGING ORDERAB LES Final Result * (ABNORMAL) Glucose, Nova Meter (01/23/2025 5:50 AM EDT) Only the most recent of45 resultswithin the time period is included. POC-GLUCOSE 178(H) 70 - 110 mg/dL 01/23/2025 5:58 AM EDT [facility] Comment:In the event of poor peripheral blood flow, venous or arterial blood should be used due to the potential of erroneous results. Gear Generator Set Up Operator [id number] 01/23/2025 5:58 AM EDT [facility] Blood WHOLE BLOOD / Unknown 01/23/2025 5:50 AM EDT 01/23/2025 5:58 AM EDT Narrative [facility] - 01/23/2025 5:58 AM EDT Notified RN/MD Krystian Bhakta MD POINT OF CARE TEST ORDERABLES F inal Result [facility] [address] [phone] * [place] MODIFIED BARIUM SWALLOW (01/22/2025 10:54 AM EDT) Anatomical Region Laterality Modality X-Ray 01/22/2025 12:2 8 PM EDT Impressions 01/22/2025 3:19 PM EDT Modified barium swallow under fluoroscopic guidance. Please see speech pathologist's report for further details and recommendations. Images reviewed, interpreted, and dictated by Dr. Juan Bonilla. Transcribed by Xavi Arroyo PA-C. Narrative 01/22/2025 3:19 PM EDT [...] IMG FLUOROSCOPY ORDERABLES Shobha l Result * (ABNORMAL) CBC with automated diff (01/22/2025 8:56 AM EDT) Only the most recent of2 resultswithin the time period is included. WBC 11.3(H) 4.0 - 10.0 K/ L 01/22/2025 10:00 AM [facility] RBC 2.80(L) 3.93 - 5.22 M/ L 01/22/2025 10:00 AM [facility] Hemoglobin 8.2(L) 11.2 - 15.7 GM/DL 01/22/2025 10:00 AM [facility] Hematocrit 25.4(L) 34.1 - 44.9 % 01/22/2025 10:00 AM [facility] MCV 91 79 - 95 fL 01/22/2025 10:00 AM [facility] MCH 29.3 25.6 - 32.2 pg 01/22/2025 10:00 AM [facility] MCHC 32.3 32.2 - 35.5 GM/DL 01/22/2025 10:00 AM [facility] RDW 15.5(H) 11.7 - 14.4 % 01/22/2025 10:00 AM EDT [facility] Platelets 255 140 - 375 K/CU MM 01/22/2025 10:00 AM T [facility] MPV 11.1 9.4 - 12.3 fL 01/22/2025 10:00 AM T [facility] % Neutros 73(H) 34 - 71 % 01/22/2025 10:00 AM T [facility] % Lymphs 18(L) 19 - 52 % 01/22/2025 10:00 AM EDT [facility] % Monos 7 5 - 13 % 01/22/2025 10:00 AM T [facility] % Eos 0.3(L) 1.0 - 6.0 % 01/22/2025 10:00 AM T [facility] % Baso 0 0 - 1 % 01/22/2025 10:00 AM T [facility] NRBC Absolute <0.01 0 - 0.012 K/ul 01/22/2025 10:00 AM [facility] # Neutros 8.22(H) 1.56 - 6.13 K/ L 01/22/2025 10:00 AM T [facility] # Lymphs 2.02 1.18 - 3.74 K/ L 01/22/2025 10:00 AM T [facility] # Monos 0.84 0.24 - 0.86 K/ L 01/22/2025 10:00 AM [facility] # Eos 0.03(L) 0.04 - 0.36 K/ L 01/22/2025 10:00 AM T [facility] # Baso <0.03 0.01 - 0.08 K/ L 01/22/2025 10:00 AM [facility] % Imm Grans 1.30(H) 0.01 - 0.43 % 01/22/2025 10:00 AM [facility] # IG 0.15(H) 0.00 - 0.03 K/uL 01/22/2025 10:00 AM [facility] Blood Venipuncture / Unknown 01/22/2025 8:56 AM EDT 01/22/2025 9:19 AM EDT Narrative [facility] - 01/22/2025 10:00 AM EDT When [...] ORDERABLES Final Resu lt Performing Organization Address City/[facility]/ZIP Co de Phone Number [facility] [address] [phone] * Phosphorus (01/22/2025 8:56 AM EDT) Only the most recent of6 resultswithin the time period is included. Phosphorus 3.1 2.5 - 4.5 mg/dL 01/22/2025 9:45 AM EDT [facility] Blood Venipuncture / Unknown 01/22/2025 8:56 AM EDT 01/22/2025 9:17 AM EDT Agustin Andrew MD LAB BLOOD ORDERABLES Final Resu lt [facility] [address] [phone] * Magnesium (01/22/2025 8:56 AM EDT) Only the most recent of10 resultswithin the time period is included. Magnesium 1.6 1.6 - 2.6 mg/dL 01/22/2025 9:45 AM EDT [facility] Blood Venipuncture / Unknown 01/22/2025 8:56 AM EDT 01/22/2025 9:17 AM EDT us Agustin Andrew MD LAB BLOOD ORDERABLES Final Resu lt [facility] [address] [phone] * (ABNORMAL) Basic Metabolic Panel (01/22/2025 8:56 AM EDT) Only the most recent of9 resultswithin the time period is included. Sodium 139 136 - 145 meq/L 01/22/2025 9:45 AM EDT [facility] Potassium 3.8 3.4 - 5.1 meq/L 01/22/2025 9:45 AM EDT [facility] CO2 23 22 - 29 meq/L 01/22/2025 9:45 AM EDT [facility] Chloride 108 98 - 112 meq/L 01/22/2025 9:45 AM EDT [facility] Glucose 192(H) 82 - 115 mg/dL 01/22/2025 9:45 AM EDT [facility] BUN 29.0(H) 9.8 - 20.1 mg/dL 01/22/2025 9:45 AM EDT [facility] Creatinine 0.96 0.50 - 1.20 mg/dL 01/22/2025 9:45 AM EDT [facility] BUN/Creatinine 30(H) 8 - 20 01/22/2025 9:45 AM EDT [facility] Calcium 8.7 8.4 - 10.2 mg/dL 01/22/2025 9:45 AM EDT [facility] Anion Gap 12 4 - 12 01/22/2025 9:45 AM EDT [facility] eGFR (mL/min/1.73m2) 62 >=60 mL/min/1.7 3m2 01/22/2025 9:45 AM EDT [facility] Comment:ESTIMATED GFR IS NOT ACCURATE CREATININE CLEARANCE IN PREDICTING GLOMERULAR FILTRATION RATE. ESTIMATED GFR IS NOT APPLICABLE FOR DIALYSIS PATIENTS. Osmolality Calc 288.6 mOsm/kg 9:45 AM EDT [facility] Blood Venipuncture / Unknown 01/22/2025 8:56 AM EDT 01/22/2025 9:17 AM EDT us Agustin Andrew MD LAB BLOOD ORDERABLES Final Resu lt [facility] [address] [id number], [facility] [phone] * (ABNORMAL) ABG (01/19/2025 10:37 AM EDT) Only the most recent of3 resultswithin the time period is included. pH, Arterial 7.44 7.35 - 7.45 01/19/2025 10:47 AM EDT [facility] pCO2, Arterial 44 35 - 45 mm Hg 01/19/2025 10:47 AM EDT [facility] pO2, Arterial 98 80 - 100 mm Hg 01/19/2025 10:47 AM EDT [facility] HCO3, Arterial 30(H) 20 - 26 mmol/L 01/19/2025 10:47 AM EDT [facility] Base Excess, Arterial 5.4(H) -2.0 - 2.0 mmol/L 01/19/2025 10:47 AM EDT [facility] O2 Sat, Arterial 98.3 95.0 - 100.0 % 01/19/2025 10:47 AM EDT [facility] CTO2 ARTERIAL 14.2 mmol/L 01/19/2025 10:47 AM EDT [facility] THB ARTERIAL 10.3(L) 12.0 - 18.0 g/dL 01/19/2025 10:47 AM EDT [facility] PaO2/FIO2 calculated 244.0 01/19/2025 10:47 AM EDT [facility] COLLECTION SITE Right Radial 01/19/2025 10:47 AM EDT [facility] Arterial Puncture Yes 01/19/2025 10:47 AM EDT [facility] Blood Gas O2 Delivery Device NIV 01/19/2025 10:47 AM EDT [facility] Blood Gas PT Temperature C 37.0 01/19/2025 10:47 AM EDT [facility] Naif's Test Acceptable 01/19/2025 10:47 AM EDT [facility] ABG Number of Draw Attempts 1 01/19/2025 10:47 AM EDT [facility] Set Rate 12.0 01/19/2025 10:47 AM EDT [facility] IPAP 12 01/19/2025 10:47 AM EDT [facility] EPAP 6 01/19/2025 10:47 AM EDT [facility] FIO2 40.0 01/19/2025 10:47 AM EDT [facility] Blood Gas Temperature Corrected Results No No 01/19/2025 10:47 AM EDT [facility] Blood, Arterial Collection / Unknown 01/19/2025 10:37 AM EDT 01/19/2025 10:47 AM EDT us Donnie Jeffery MD LAB BLOOD ORDERABLES Final Resu lt Performing Organization Address City/[facility]/ZIP Co de Phone Number [facility] [address] [phone] * ECG 12 lead (01/19/2025 10:00 AM EDT) Only the most recent of9 resultswithin the time period is included. SYSTOLIC BLOOD PRESSURE (MCT) 149 mmHg GE MUSE DIASTOLIC BLOOD PRESSURE (MCT) 65 mmHg GE MUSE VENTRICULAR RATE EKG/MIN 91 BPM GE MUSE ATRIAL RATE (MCT) 91 BPM GE MUSE RI Interval 186 ms GE MUSE QRS-INTERVAL (MSEC) 80 ms GE MUSE QT Interval 354 ms GE MUSE QTC Interval 435 ms GE MUSE P [place] 84 degrees GE MUSE R AXIS (MCT) 87 degrees GE MUSE T Wave [place] 106 degrees GE MUSE [employer] Diagnosis Normal sinus rhythm Anterior infarct (cited on or before 17-JAN-2025 ) Confirmed by LESLIE AYERS M.D. ([id number]) on 01/19/2025 11:39:13 AM GE MUSE 01/19/2025 10:0 0 AM EDT 01/19/2025 11:39 AM EDT us Agustin Andrew MD ECG ORDERABLES Final Result GE MUSE * (ABNORMAL) CBC - Hemogram (01/19/2025 8:41 AM EDT) Only the most recent of8 resultswithin the time period is included. WBC 17.8(H) 4.0 - 10.0 K/ L 01/19/2025 9:00 AM EDT [facility] RBC 3.52(L) 3.93 - 5.22 M/ L 01/19/2025 9:00 AM EDT [facility] Hemoglobin 10.1(L) 11.2 - 15.7 GM/DL 01/19/2025 9:00 AM EDT [facility] Hematocrit 31.8(L) 34.1 - 44.9 % 01/19/2025 9:00 AM EDT [facility] MCV 90 79 - 95 fL 01/19/2025 9:00 AM EDT [facility] MCH 28.7 25.6 - 32.2 pg 01/19/2025 9:00 AM EDT [facility] MCHC 31.8(L) 32.2 - 35.5 GM/DL 01/19/2025 9:00 AM EDT [facility] RDW 16.2(H) 11.7 - 14.4 % 01/19/2025 9:00 AM EDT [facility] Platelets 328 140 - 375 K/CU MM 01/19/2025 9:00 AM EDT [facility] MPV 10.7 9.4 - 12.3 fL 01/19/2025 9:00 AM EDT [facility] Blood Venipuncture / Unknown 01/19/2025 8:41 AM EDT 01/19/2025 8:55 AM EDT us Agustin Andrew MD LAB BLOOD ORDERABLES Final Resu lt [facility] [address] [phone] * Potassium (01/16/2025 12:17 PM EDT) Only the most recent of2 resultswithin the time period is included. Potassium 3.4 3.4 - 5.1 meq/L 01/16/2025 12:50 PM EDT [facility] Blood Venipuncture / Unknown 01/16/2025 12:17 PM EDT 01/16/2025 12:30 PM EDT Narrative [facility] - 01/16/2025 12:50 PM EDT Specimen slightly hemolyzed us Donnie Jeffeyr MD LAB BLOOD ORDERABLES Final Resu lt [facility] [address] [phone] * XR KUB PORTABLE (01/15/2025 6:23 AM EDT) Only the most recent of2 resultswithin the time period is included. Anatomical Region Laterality Modality Abdomen X-Ray 01/15/2025 8:32 AM EDT Impressions 01/15/2025 8:58 AM EDT Feeding tube tip terminates at the junction of the second and third portions of the duodenum. Images reviewed, interpreted, and dictated by Dr. Clitn Gaspar. Transcribed by Danyel Ziegler PA-C Narrative [...] DIAGNOSTIC IMAGING ORDERABL ES Final Result * Pneumonia PCR Panel (01/14/2025 11:36 AM EDT) ACINETOBACTER CALCOACETICUS-REMY ANNII COMPLEX Not detected Not detected 01/15/2025 6:32 AM EDT [facility] ENTEROBACTER CLOACAE COMPLEX Not detected Not detected 01/15/2025 6:32 AM EDT [facility] ESCHERICHIA COLI Not detected Not detected 01/15/2025 6:32 AM EDT [facility] HAEMOPHILUS INFLUENZAE Not detected Not detected 01/15/2025 6:32 AM EDT [facility] KLEBSIELLA AEROGENES Not detected Not detected 01/15/2025 6:32 AM EDT [facility] KLEBSIELLA OXYTOCA Not detected Not detected 01/15/2025 6:32 AM EDT [facility] KLEBSIELLA PNEUMONIAE GROUP Not detected Not detected 01/15/2025 6:32 AM EDT [facility] MORAXELLA CATARRHALIS Not detected Not detected 01/15/2025 6:32 AM EDT [facility] PROTEUS Not detected Not detected 01/15/2025 6:32 AM EDT [facility] PSEUDOMONAS AERUGINOSA Not detected Not detected 01/15/2025 6:32 AM EDT [facility] SERRATIA MARCESCENS Not detected Not detected 01/15/2025 6:32 AM EDT [facility] STAPHYLOCOCCUS AUREUS Not detected Not detected 01/15/2025 6:32 AM EDT [facility] STREPTOCOCCUS AGALACTIAE (GROUP B) Not detected Not detected 01/15/2025 6:32 AM EDT [facility] STREPTOCOCCUS PNEUMONIAE Not detected Not detected 01/15/2025 6:32 AM EDT [facility] STREPTOCOCCUS PYOGENES (GROUP A) Not detected Not detected 01/15/2025 6:32 AM EDT [facility] CTX-M Non Applicable Not detected 01/15/2025 6:32 AM EDT [facility] IMP Non Applicable Not detected 01/15/2025 6:32 AM EDT [facility] KPC Non Applicable Not detected 01/15/2025 6:32 AM EDT [facility] MEC A/C and MREJ Non Applicable Not detected 01/15/2025 6:32 AM EDT [facility] NDM Non Applicable Not detected 01/15/2025 6:[facility] [id number] Non Applicable Not detected 01/15/2025 6:32 AM EDT [facility] VIM Non Applicable Not detected 01/15/2025 6:32 AM EDT [facility] CHLAMYDIA PNEUMONIAE Not detected Not detected 01/15/2025 6:32 AM EDT [facility] LEGIONELLA PNEUMOPHILA Not detected Not detected 01/15/2025 6:32 AM EDT [facility] MYCOPLASMA PNEUMONIAE Not detected Not detected 01/15/2025 6:32 AM EDT [facility] ADENOVIRUS Not detected Not detected 01/15/2025 6:32 AM EDT [facility] CORONAVIRUS (NOT COVID19) Not detected Not detected 01/15/2025 6:32 AM EDT [facility] HUMAN METAPNEUMOVIRUS Not detected Not detected 01/15/2025 6:32 AM EDT [facility] HUMAN RHINOVIRUS/ENTEROV IRUS Not detected Not detected 01/15/2025 6:32 AM EDT [facility] INFLUENZA A Not detected Not detected 01/15/2025 6:32 AM EDT [facility] INFLUENZA B Not detected Not detected 01/15/2025 6:32 AM EDT [facility] PARAINFLUENZA VIRUS Not detected Not detected 01/15/2025 6:32 AM EDT [facility] RESPIRATORY SYNCYTIAL VIRUS Not detected Not detected 01/15/2025 6:32 AM EDT [facility] BAL STRUCTURE OF LOWER LOBE OF LEFT LUNG / Unknown 01/14/2025 11:36 AM EDT 01/14/2025 11:36 AM EDT [facility] - 01/15/2025 6:32 AM EDT Antimicrobial [...] results for determination of susceptibility or resistance. Tawnya Amaro MD MICROBIOLOGY - GENERAL ORDERAB LES Edited Result - Final Performing Organization Address City/[facility]/ZIP Co de Phone Number [facility] [address] [phone] * Respiratory Culture (01/14/2025 11:33 AM EDT) Only the most recent of2 resultswithin the time period is included. Result No growth 01/16/2025 9:04 AM EDT [facility] Gram Stain Result Rare WBCs 01/16/2025 9:04 AM EDT [facility] Gram Stain Result No organisms seen 01/16/2025 9:04 AM EDT [facility] BAL STRUCTURE OF LOWER LOBE OF LEFT LUNG / Unknown 01/14/2025 11:33 AM EDT 01/14/2025 11:33 AM EDT Narrative [facility] - 01/16/2025 9:04 AM EDT The pneumonia PCR panel may detect organisms that do not grow on the culture. Correlate PCR, culture, and patient condition. Rule out and consider respiratory tract colonization,particularly in tracheostomy patients. us Tawnya Amaro MD MICROBIOLOGY - GENERAL ORDERAB LES Final Result Performing Organization Address [facility] Co de Phone Number [facility] [address] [phone] * SPIN/CONCENTRATION CHARGE (01/14/2025 11:33 AM EDT) Concentration charged Done 01/15/2025 2:14 PM EDT [facility] BAL STRUCTURE OF LOWER LOBE OF LEFT LUNG / Unknown 01/14/2025 11:33 AM EDT 01/14/2025 11:33 AM EDT us Donnie Jeffery MD MICROBIOLOGY - GENERAL ORDERABL ES Final Result Performing Organization Address [facility] Co de Phone Number [facility] [address] [phone] * (ABNORMAL) CALCIUM Ionized (01/14/2025 3:53 AM EDT) Only the most recent of3 resultswithin the time period is included. Calcium Ionized 1.03(L) 1.12 - 1.32 mmol/L 01/14/2025 3:59 AM EDT [facility] Blood Venipuncture / Unknown 01/14/2025 3:53 AM EDT 01/14/2025 3:53 AM EDT Gabe Davis APRN LAB BLOOD ORDERABLES Final Res ult [facility] [address] [phone] * (ABNORMAL) Comprehensive metabolic panel (01/14/2025 3:53 AM EDT) Only the most recent of3 resultswithin the time period is included. Sodium 146(H) 136 - 145 meq/L 01/14/2025 4:27 AM EDT [facility] Potassium 2.9(L) 3.4 - 5.1 meq/L 01/14/2025 4:27 AM EDT [facility] Chloride 98 98 - 112 meq/L 01/14/2025 4:27 AM EDT [facility] CO2 33(H) 22 - 29 meq/L 01/14/2025 4:27 AM EDT [facility] Calcium 8.8 8.4 - 10.2 mg/dL 01/14/2025 4:27 AM EDT [facility] Glucose 130(H) 82 - 115 mg/dL 01/14/2025 4:27 AM EDT [facility] BUN 25.9(H) 9.8 - 20.1 mg/dL 01/14/2025 4:27 AM EDT [facility] Creatinine 1.56(H) 0.50 - 1.20 mg/dL 01/14/2025 4:27 AM EDT [facility] BUN/Creatinine 17 8 - 20 01/14/2025 4:27 AM EDT [facility] eGFR (mL/min/1.73m2) 35(L) >=60 mL/min/1.7 3m2 01/14/2025 4:27 AM EDT [facility] Comment:ESTIMATED GFR IS NOT ACCURATE CREATININE CLEARANCE IN PREDICTING GLOMERULAR FILTRATION RATE. ESTIMATED GFR IS NOT APPLICABLE FOR DIALYSIS PATIENTS. Albumin 2.3(L) 3.5 - 5.0 g/dL 01/14/2025 4:27 AM EDT [facility] Alkaline Phosphatase 81 40 - 150 U/L 01/14/2025 4:27 AM EDT [facility] ALT 10 <55 U/L 01/14/2025 4:27 AM EDT [facility] AST 18 5 - 34 U/L 01/14/2025 4:27 AM EDT [facility] Total Bilirubin 0.2(L) 0.3 - 1.2 mg/dL 01/14/2025 4:27 AM EDT [facility] Protein, Total 5.7(L) 6.4 - 8.3 g/dL 01/14/2025 4:27 AM EDT [facility] Globulin 3.4 2.5 - 4.1 g/dL 01/14/2025 4:27 AM EDT [facility] Anion Gap 18(H) 4 - 12 01/14/2025 4:27 AM EDT [facility] A/G Ratio 0.7 0.7 - 1.9 01/14/2025 4:27 AM EDT [facility] Osmolality Calc 297.0 mOsm/kg 4:27 AM EDT [facility] Blood Venipuncture / Unknown 01/14/2025 3:53 AM EDT 01/14/2025 3:53 AM EDT us Gabe Davis APRN LAB BLOOD ORDERABLES Final Res ult [facility] [address] [phone] * CT CHEST WITHOUT IV CONTRAST (01/13/2025 [...] Images reviewed, interpreted, and dictated by Dr. Mayi Smith. Transcribed by Chanel Parmar PA-C. Narrative [...] reveal an age-indeterminate T12 fracture. Procedure Note Mayi Smith MD - 01/13/2025 CT SCAN OF [...] Images reviewed, interpreted, and dictated by Dr. Mayi Smith. Transcribed by Chanel Pamrar PA-C. us Donnie Jeffery MD IMG CT ORDERABLES Final Result * ECHO COMPLETE (DOPPLER / COLOR) WO CONTRAST (01/13/2025 9:55 AM EDT) Anatomical Region Laterality Modality Heart Vascular Ultraso und 01/13/2025 7:47 AM EDT Narrative 01/13/2025 3:14 PM EDT TRANSTHORACIC ECHOCARDIOGRAPHY REPORT Demographics Patient Name: BERTHA Montes De Oca : 1950 Age: 74 year(s) Corporate ID Number: [id number] Gender Female Laborer Operator: Tk Majano RDCS Height: 60 inches Referring Physician: CARMELITA SPENCER MD Weight: 106 pounds Interpreting Physician: JOSEPH CONKLIN DO BMI: 20.7 kg/m^2 Date of Service: 01/13/2025 Blood Pressure: 157/70 mmHg Room Number: CCU 8 Type of Study: TTE procedure: ECHO COMPLETE (DOPPLER / COLOR) W OR WO CONTRAST. Patient Status: Routine IP Study Location: [facility] Quality: Adequate visualization History/Tech Notes: Indication: Acute [...] 0.69 m/s E/A ratio: 0.79 m/s Volume [id number] LV length: 7.06 cm ml Volume emrkkulv14.94 ml LVOT diameter: 2.01 cm Normal sized [...] 01/13/2025 TRANSTHORACIC ECHOCARDIOGRAPHY REPORT Demographics Patient Name: BERTHA Montes De Oca :1950 Age: 74year(s) Corporate ID Number: [id number] Gender Female Laborer Operator: Tk Majano RDCS Height: 60 inches Referring [...] 0.69 m/s E/A ratio: 0.79 m/s Volume [id number] LV length: 7.06 cm ml Volume jlrwqpqy25.94 ml LVOT diameter: 2.01 cm Normal sized [...] collapse. Pericardium / Pleura No pericardial effusion. doubleTwist Thony DO CV ECHO ORDERABLES Final Resu lt * Strep pneumoniae urine antigen (01/12/2025 10:33 AM EDT) Strep pneumoniae Antigen Presumptive negative for pneumococcal pneumonia - see comment Presumptive negative for pneumococcal pneumonia- see comment 01/12/2025 11:14 AM EDT [facility] Urine URINE / Unknown 01/12/2025 1 0:33 AM EDT 01/12/2025 10:33 AM EDT Narrative [facility] - 01/12/2025 11:14 AM EDT A presumptive negative result suggests no current or recent pneumococcal infection. Infection due to S. pneumoniae cannot be ruled out since the antigen present in the specimen may be below the detection limit of the test. doubleTwist Thony DO MICROBIOLOGY - GENERAL ORDERA BLES Final Result [facility] [address] [phone] * Legionella antigen, urine (01/12/2025 10:33 AM EDT) Legionella Urine Antigen Presumptive negative for L. pneumophila serogroup 1 antigen in urine- see comment Presumptive negative for L. pneumophila serogroup 1 antigen in urine- see comment 01/12/2025 11:14 AM EDT [facility] Urine 01/12/2025 10:3 3 AM EDT 01/12/2025 10:33 AM EDT Narrative [facility] - 01/12/2025 11:14 AM EDT Presumptive [...] the detection limit of the test. us Carmelita Spencer DO URINE ORDERABLES Final Result Performing Organization Address [facility] Co de Phone Number [facility] [address] [phone] * Lactic acid (SJ) (01/12/2025 3:30 AM EDT) Lactic Acid Level (mmol/L) 1.7 0.5 - 2.2 mmol/L 01/12/2025 4:09 AM EDT [facility] Blood Venipuncture / Unknown 01/12/2025 3:30 AM EDT 01/12/2025 3:35 AM EDT Gabe Davis APRN LAB BLOOD ORDERABLES Final Res ult Performing Organization Address [facility] Co de Phone Number [facility] [address] [phone] * Procalcitonin (01/12/2025 3:30 AM EDT) Procalcitonin 0.33 See Comment ng/mL 01/12/2025 4:27 AM EDT [facility] Blood Venipuncture / Unknown 01/12/2025 3:30 AM EDT 01/12/2025 3:35 AM EDT Narrative [facility] - 01/12/2025 4:27 AM EDT Specimen moderately hemolyzed Gabe Davis APRN LAB BLOOD ORDERABLES Final Res ult Performing Organization Address City/[facility]/ZIP Co de Phone Number [facility] [address] [phone] * (ABNORMAL) PROBNP (01/12/2025 3:30 AM EDT) [facility] ProBNP (pg/mL) 5,189(H) 16 - 334 pg/mL 01/12/2025 10:27 AM EDT [facility] Blood Venipuncture / Unknown 01/12/2025 3:30 AM EDT 01/12/2025 3:35 AM EDT Narrative [facility] - 01/12/2025 10:27 AM EDT As of August 15, 2024: NT-ProBNP is a new test on our 91 [employer] Immunoassay analyzer. Please review new age and gender specific reference ranges. us Tawnya Amaro MD LAB BLOOD ORDERABLES Final Res ult Performing Organization Address [facility] Co de Phone Number [facility] [address] [phone] * (ABNORMAL) C-Reactive Protein (01/12/2025 3:30 AM EDT) [facility] CRP 297.3(H) 0.0 - 5.0 mg/L 01/12/2025 4:33 AM EDT [facility] Blood Venipuncture / Unknown 01/12/2025 3:30 AM EDT 01/12/2025 3:35 AM EDT us Gabe Davis APRN LAB BLOOD ORDERABLES Final Res ult Performing Organization Address [facility]/ZIP Co de Phone Number [facility] [address] [phone] * Respiratory Panel (01/12/2025 3:29 AM EDT) [facility] ADENOVIRUS Not detected Not detected 01/12/2025 4:49 AM EDT [facility] CORONAVIRUS 229E Not detected Not detected 01/12/2025 4:49 AM EDT [facility] CORONAVIRUS HKU1 Not detected Not detected 01/12/2025 4:49 AM EDT [facility] CORONAVIRUS NL63 Not detected Not detected 01/12/2025 4:49 AM EDT [facility] CORONAVIRUS OC43 Not detected Not detected 01/12/2025 4:49 AM EDT [facility] SARS-COV2/RT-PCR Not Detected Not Detected 01/12/2025 4:49 AM EDT [facility] HUMAN METAPNEUMOVIRUS Not detected Not detected 01/12/2025 4:49 AM EDT [facility] HUMAN RHINOVIRUS/ENTEROV IRUS Not detected Not detected 01/12/2025 4:49 AM EDT [facility] INFLUENZA A Not detected Not detected 01/12/2025 4:49 AM EDT [facility] INFLUENZA B Not detected Not detected 01/12/2025 4:49 AM EDT [facility] PARAINFLUENZA VIRUS 1 Not detected Not detected 01/12/2025 4:49 AM EDT [facility] PARAINFLUENZA VIRUS 2 Not detected Not detected 01/12/2025 4:49 AM EDT [facility] PARAINFLUENZA VIRUS 3 Not detected Not detected 01/12/2025 4:49 AM EDT [facility] PARAINFLUENZA VIRUS 4 Not detected Not detected 01/12/2025 4:49 AM EDT [facility] RESPIRATORY SYNCYTIAL VIRUS Not detected Not detected 01/12/2025 4:49 AM EDT [facility] BORDETELLA PARAPERTUSSIS Not detected Not detected 01/12/2025 4:49 AM EDT [facility] BORDETELLA PERTUSSIS Not detected Not detected 01/12/2025 4:49 AM EDT [facility] CHLAMYDIA PNEUMONIAE Not detected Not detected 01/12/2025 4:49 AM EDT [facility] MYCOPLASMA PNEUMONIAE Not detected Not detected 01/12/2025 4:49 AM EDT [facility] Nasopharyngeal NASOPHARYNGEAL SWAB / Unknown 01/12/2025 3:29 AM EDT 01/12/2025 3:35 AM EDT [facility] - 01/12/2025 4:49 AM EDT Testing was performed with RT-PCR methodology using the [employer] Respiratory Panel 2.1 which has FDA De [...] decisions. This sample was tested at the [facility] using the [employer]KeXArray Respiratory Panel. It is FDA cleared and has been verified and approved by the [facility] for clinical use on nasopharyngeal swab specimens. The performance of the FilmArray RP has not been established in individuals who received influenza vaccine. Recent administration of a nasal influenza vaccine may cause false positive results for Influenza A and/or Influenza B. Ismaeel Thony DO MICROBIOLOGY - GENERAL ORDERA BLES Final Result [facility] [address] [phone] * MRSA Screen (01/12/2025 3:29 AM EDT) [facility] MRSA by PCR [facility] MRSA Not Detected by PCR MRSA Not Detected by PCR DEVICE ID9 01/12/2025 5:32 AM EDT [facility] Nasal BOTH ANTERIOR NARES / Unknown 01/12/2025 3:29 AM EDT 01/12/2025 3:35 AM EDT us Ismaeel Thony DO MICROBIOLOGY - GENERAL ORDERA BLES Final Result Performing Organization Address City/[facility]/ZIP Co de Phone Number [facility] [address] [place] [address], [facility] [phone] * EKG-SCANNED (01/12/2025) Narrative 01/12/2025 Ordered by an unspecified provider. us Default Scanning Provider SCAN ORDERS Final Result from Last 3 Months Insurance MEDICARE PART A B MEDICAID PEND Advance Directives For more information, please contact: [phone] Documents on File Type Date Recorded Patient Toll Mechanic Expl anation Advance Directives and Living Will 01/12/2025 Power of Tyre Fitter 01/12/2025 Power of Tyre Fitter-Patient 01/18/2025 11:45 AM Durable Power of Tyre Fitter * DNR - Comfort Measures (Latest Code Status on File) Date Activated Date Inactivated Comments 01/23/2025 8:23 AM 01/23/2025 3:58 PM * DNR - Limited Additional Intervention Date Activated Date Inactivated Comments 01/18/2025 11:05 AM 01/23/2025 8:23 AM * DNR - Full Scope of Treatment Date Activated Date Inactivated Comments 01/13/2025 4:21 PM 01/18/2025 11:04 AM * DNR - Limited Additional Intervention Date Activated Date Inactivated Comments 01/12/2025 1:50 AM 01/13/2025 4:21 PM * Full Code Date Activated Date Inactivated Comments 01/12/2025 12:37 AM 01/12/2025 1:50 AM Healthcare Agents on File Name Relationship Healthcare Agent Relationshi p Communication Jenn Souza Healthcare Decision-Maker Care Teams Science Technician Relationship Specialty Start Date End Date Roe Gleason MD [address] [place] [id number] PCP - General Adolescent Medicine 01/12/25
--- OUTSIDE RECORDS SUMMARY | 2025-02-02 19:08 | XMS_ITS | Referral Summary ---
Author Organization [employer] ([place], [place], [place], [place], [place]) Address [address] [place] [address] Care Team Providers Care Mastic Worker Name Role Phone Roe Gleason MD Primary Care Provider + [phone] Encounters Date Type Department Care Team Description 01/12/2025 1:27 AM EDT - 01/23/2025 2:58 PM EDT Hospital Encounter [facility] Cardiac Telemetry [address] [place] [address] Nathan Malhotra MD Siddiqi, Ismaeel, DO Elsallabi, Osama, MD Kredan, Tawfik, MD Zohary, Hossam, MD Discharge Disposition: Home or Self Care 01/12/2025 Travel from Last 3 Months Allergies No known active allergies Medications amLODIPine [...] total) by mouth daily for 30 days. 01/25/20 25 2024 Active aspirin 325 MG tablet Take 1 [...] Date Aspiration pneumonia 01/12/2025 Bronchial obstruction 01/12/2025 Social History Tobacco Use Types Packs/Day Years [...] any time in the past 12 m [facility], were you homeless or living in a assisted (including now)? No 01/19/2025 Utilities Answer Date [...] Do you speak a language other than [facility] at [facility]? No 01/12/2025 Do you want [...] 01/12/2025 2:05 AM EDT Plan of Treatment Not on file Procedures Procedure Name Priority Date/Time Associated Diagnosis [...] Bonilla. Transcribed by Callie Garnica PA-C. Aki Espinosa APRN [facility] DIAGNOSTIC IMAGING ORDERAB LES Final Result * (ABNORMAL) Glucose, Nova Meter (01/23/2025 5:50 AM EDT) Only the most recent of45 resultswithin the time period is included. POC-GLUCOSE 178(H) 70 - 110 mg/dL 01/23/2025 5:58 AM EDT [facility] Comment:In the event of poor peripheral blood flow, venous or arterial blood should be used due to the potential of erroneous results. Marine Engine Machinist Apprentice [id number] 01/23/2025 5:58 AM EDT [facility] Blood WHOLE BLOOD / Unknown 01/23/2025 5:50 AM EDT 01/23/2025 5:58 AM EDT Narrative [facility] - 01/23/2025 5:58 AM EDT Notified RN/MD Krystian Bhakta MD POINT OF CARE TEST ORDERABLES F inal Result [facility] [address] [phone] * [place] MODIFIED BARIUM SWALLOW (01/22/2025 10:54 [...] 10.0 K/ L 01/22/2025 10:00 AM EDT [facility] RBC 2.80(L) 3.93 - 5.22 M/ L 01/22/2025 10:00 AM [facility] Hemoglobin 8.2(L) 11.2 - 15.7 GM/DL 01/22/2025 10:00 AM [facility] Hematocrit 25.4(L) 34.1 - 44.9 % 01/22/2025 10:00 AM [facility] MCV 91 79 - 95 fL 01/22/2025 10:00 AM [facility] MCH 29.3 25.6 - 32.2 pg 01/22/2025 10:00 AM [facility] MCHC 32.3 32.2 - 35.5 GM/DL 01/22/2025 10:00 AM [facility] RDW 15.5(H) 11.7 - 14.4 % 01/22/2025 10:00 AM [facility] Platelets 255 140 - 375 K/CU MM 01/22/2025 10:00 AM [facility] MPV 11.1 9.4 - 12.3 fL 01/22/2025 10:00 AM [facility] % Neutros 73(H) 34 - 71 % 01/22/2025 10:00 AM [facility] % Lymphs 18(L) 19 - 52 % 01/22/2025 10:00 AM [facility] % Monos 7 5 - 13 % 01/22/2025 10:00 AM EDT [facility] % Eos 0.3(L) 1.0 - 6.0 % 01/22/2025 10:00 AM [facility] % Baso 0 0 - 1 % 01/22/2025 10:00 AM [facility] NRBC Absolute <0.01 0 - 0.012 K/ul 01/22/2025 10:00 AM [facility] # Neutros 8.22(H) 1.56 - 6.13 K/ L 01/22/2025 10:00 AM EDT [facility] # Lymphs 2.02 1.18 - 3.74 K/ L 01/22/2025 10:00 AM EDT [facility] # Monos 0.84 0.24 - 0.86 K/ L 01/22/2025 10:00 AM EDT [facility] # Eos 0.03(L) 0.04 - 0.36 K/ L 01/22/2025 10:00 AM EDT [facility] # Baso <0.03 0.01 - 0.08 K/ L 01/22/2025 10:00 AM EDT [facility] % Imm Grans 1.30(H) 0.01 - 0.43 % 01/22/2025 10:00 AM EDT [facility] # IG 0.15(H) 0.00 - 0.03 K/uL 01/22/2025 10:00 AM EDT [facility] Blood Venipuncture / Unknown 01/22/2025 8:56 AM EDT 01/22/2025 9:19 AM EDT Narrative [facility] - 01/22/2025 10:00 AM EDT When [...] MD LAB BLOOD ORDERABLES Final Resu lt [facility] [address] [phone] * Phosphorus (01/22/2025 8:56 AM EDT) Only the most recent of6 resultswithin the time period is included. Phosphorus 3.1 2.5 - 4.5 mg/dL 01/22/2025 9:45 AM EDT [facility] Blood Venipuncture / Unknown 01/22/2025 8:56 AM EDT 01/22/2025 9:17 AM EDT us Agustin Andrew MD LAB BLOOD ORDERABLES Final Resu lt Performing Organization Address City/[facility]/ZIP Co de Phone Number [facility] [address] [phone] * Magnesium (01/22/2025 8:56 AM EDT) Only the most recent of10 resultswithin the time period is included. Magnesium 1.6 1.6 - 2.6 mg/dL 01/22/2025 9:45 AM EDT [facility] Blood Venipuncture / Unknown 01/22/2025 8:56 AM EDT 01/22/2025 9:17 AM EDT us Agustin Andrew MD LAB BLOOD ORDERABLES Final Resu lt Performing Organization Address [facility] Co de Phone Number [facility] [address] [phone] * (ABNORMAL) Basic Metabolic Panel (01/22/2025 8:56 AM EDT) Only the most recent of9 resultswithin the time period is included. Sodium 139 136 - 145 meq/L 01/22/2025 9:45 AM EDT [facility] Potassium 3.8 3.4 - 5.1 meq/L 01/22/2025 9:45 AM EDT [facility] CO2 23 22 - 29 meq/L 01/22/2025 9:45 AM EDT [facility] Chloride 108 98 - 112 meq/L 01/22/2025 9:45 AM EDT [facility] Glucose 192(H) 82 - 115 mg/dL 01/22/2025 9:45 AM EDT [facility] BUN 29.0(H) 9.8 - 20.1 mg/dL 01/22/2025 9:45 AM EDT [facility] Creatinine 0.96 0.50 - 1.20 mg/dL 01/22/2025 9:45 AM EDT [facility] BUN/Creatinine 30(H) 8 - 20 01/22/2025 9:45 AM EDT [facility] Calcium 8.7 8.4 - 10.2 mg/dL 01/22/2025 9:45 AM EDT [facility] Anion Gap 12 4 - 12 01/22/2025 9:45 AM EDT [facility] eGFR (mL/min/1.73m2) 62 >=60 mL/min/1.7 3m2 01/22/2025 9:45 AM EDT [facility] Comment:ESTIMATED GFR IS NOT ACCURATE CREATININE CLEARANCE IN PREDICTING GLOMERULAR FILTRATION RATE. ESTIMATED GFR IS NOT APPLICABLE FOR DIALYSIS PATIENTS. Osmolality Calc 288.6 mOsm/kg 9:45 AM EDT [facility] Blood Venipuncture / Unknown 01/22/2025 8:56 AM EDT 01/22/2025 9:17 AM EDT us Agustin Andrew MD LAB BLOOD ORDERABLES Final Resu lt [facility] [address] [phone] * (ABNORMAL) ABG (01/19/2025 10:37 AM EDT) Only the most recent of3 resultswithin the time period is included. pH, Arterial 7.44 7.35 - 7.45 01/19/2025 10:47 AM EDT [facility] pCO2, Arterial 44 35 - 45 mm Hg 01/19/2025 10:47 AM EDT [facility] pO2, Arterial 98 80 - 100 mm Hg 01/19/2025 10:47 AM EDT [facility] HCO3, Arterial 30(H) 20 - 26 mmol/L 01/19/2025 10:47 AM EDT [facility] Base Excess, Arterial 5.4(H) -2.0 - 2.0 mmol/L 01/19/2025 10:47 AM EDT [facility] O2 Sat, Arterial 98.3 95.0 - 100.0 % 01/19/2025 10:47 AM EDT [facility] CTO2 ARTERIAL 14.2 mmol/L 01/19/2025 10:47 AM EDT [facility] THB ARTERIAL 10.3(L) 12.0 - 18.0 g/dL 01/19/2025 10:47 AM EDT [facility] PaO2/FIO2 calculated 244.0 01/19/2025 10:47 AM EDT [facility] COLLECTION SITE Right Radial 01/19/2025 10:47 AM EDT [facility] Arterial Puncture Yes 01/19/2025 10:47 AM EDT [facility] Blood Gas O2 Delivery Device NIV 01/19/2025 10:47 AM EDT [facility] Blood Gas PT Temperature C 37.0 01/19/2025 10:47 AM EDT [facility] Naif's Test Acceptable 01/19/2025 10:47 AM EDT [facility] ABG Number of Draw Attempts 1 01/19/2025 10:47 AM EDT [facility] Set Rate 12.0 01/19/2025 10:47 AM EDT [facility] IPAP 12 01/19/2025 10:47 AM EDT [facility] EPAP 6 01/19/2025 10:47 AM EDT [facility] FIO2 40.0 01/19/2025 10:47 AM EDT [facility] Blood Gas Temperature Corrected Results No No 01/19/2025 10:47 AM EDT [facility] Blood, Arterial Collection / Unknown 01/19/2025 10:37 AM EDT 01/19/2025 10:47 AM EDT us Donnie Jeffery MD LAB BLOOD ORDERABLES Final Resu lt [facility] [address] [place] [address] [phone] * ECG 12 lead (01/19/2025 10:00 AM EDT) Only the most recent of9 resultswithin the time period is included. SYSTOLIC BLOOD PRESSURE (MCT) 149 mmHg GE MUSE DIASTOLIC BLOOD PRESSURE (MCT) 65 mmHg GE MUSE VENTRICULAR RATE EKG/MIN 91 BPM GE MUSE ATRIAL RATE (MCT) 91 BPM GE MUSE [place] Interval 186 ms GE MUSE QRS-INTERVAL (MSEC) 80 ms GE MUSE QT Interval 354 ms GE MUSE QTC Interval 435 ms GE MUSE P Letha 84 degrees GE MUSE R AXIS (MCT) 87 degrees GE MUSE T Wave Letha 106 degrees GE MUSE [place] Diagnosis Normal sinus rhythm Anterior infarct (cited on or before 17-JAN-2025 ) Confirmed by LESLIE AYERS M.D. ([id number]) on 01/19/2025 11:39:13 AM GE MUSE 01/19/2025 10:0 0 AM EDT 01/19/2025 11:39 AM EDT us Agustin Andrew MD ECG ORDERABLES Final Result GE MUSE * (ABNORMAL) CBC - Hemogram (01/19/2025 8:41 AM EDT) Only the most recent of8 resultswithin the time period is included. WBC 17.8(H) 4.0 - 10.0 K/ L 01/19/2025 9:00 AM EDT [facility] RBC 3.52(L) 3.93 - 5.22 M/ L 01/19/2025 9:00 AM EDT [facility] Hemoglobin 10.1(L) 11.2 - 15.7 GM/DL 01/19/2025 9:00 AM EDT [facility] Hematocrit 31.8(L) 34.1 - 44.9 % 01/19/2025 9:00 AM EDT [facility] MCV 90 79 - 95 fL 01/19/2025 9:00 AM EDT [facility] MCH 28.7 25.6 - 32.2 pg 01/19/2025 9:00 AM EDT [facility] MCHC 31.8(L) 32.2 - 35.5 GM/DL 01/19/2025 9:00 AM EDT [facility] RDW 16.2(H) 11.7 - 14.4 % 01/19/2025 9:00 AM EDT [facility] Platelets 328 140 - 375 K/CU MM 01/19/2025 9:00 AM EDT [facility] MPV 10.7 9.4 - 12.3 fL 01/19/2025 9:00 AM EDT [facility] Blood Venipuncture / Unknown 01/19/2025 8:41 AM EDT 01/19/2025 8:55 AM EDT us Agustin Andrew MD LAB BLOOD ORDERABLES Final Resu lt Performing Organization Address City/[facility]/ZIP Co de Phone Number [facility] [address] [phone] * Potassium (01/16/2025 12:17 PM EDT) Only the most recent of2 resultswithin the time period is included. Potassium 3.4 3.4 - 5.1 meq/L 01/16/2025 12:50 PM EDT [facility] Blood Venipuncture / Unknown 01/16/2025 12:17 PM EDT 01/16/2025 12:30 PM EDT Narrative [facility] - 01/16/2025 12:50 PM EDT Specimen slightly hemolyzed us Donnie Jeffery MD LAB BLOOD ORDERABLES Final Resu lt Performing Organization Address City/[facility]/ZIP Co de Phone Number [facility] [address] [phone] * XR KUB PORTABLE (01/15/2025 6:23 AM [...] Clint Gaspar. Transcribed by Danyel Ziegler PA-C Donnie Jeffery MD IMG DIAGNOSTIC IMAGING ORDERABL ES Final Result * Pneumonia PCR Panel (01/14/2025 11:36 AM EDT) ACINETOBACTER CALCOACETICUS-REMY ANNII COMPLEX Not detected Not detected 01/15/2025 6:32 AM EDT [facility] ENTEROBACTER CLOACAE COMPLEX Not detected Not detected 01/15/2025 6:32 AM EDT [facility] ESCHERICHIA COLI Not detected Not detected 01/15/2025 6:32 AM EDT [facility] HAEMOPHILUS INFLUENZAE Not detected Not detected 01/15/2025 6:32 AM EDT [facility] KLEBSIELLA AEROGENES Not detected Not detected 01/15/2025 6:32 AM EDT [facility] KLEBSIELLA OXYTOCA Not detected Not detected 01/15/2025 6:32 AM EDT [facility] KLEBSIELLA PNEUMONIAE GROUP Not detected Not detected 01/15/2025 6:32 AM EDT [facility] MORAXELLA CATARRHALIS Not detected Not detected 01/15/2025 6:32 AM EDT [facility] PROTEUS Not detected Not detected 01/15/2025 6:32 AM EDT [facility] PSEUDOMONAS AERUGINOSA Not detected Not detected 01/15/2025 6:32 AM EDT [facility] SERRATIA MARCESCENS Not detected Not detected 01/15/2025 6:32 AM EDT [facility] STAPHYLOCOCCUS AUREUS Not detected Not detected 01/15/2025 6:32 AM EDT [facility] STREPTOCOCCUS AGALACTIAE (GROUP B) Not detected Not detected 01/15/2025 6:32 AM EDT [facility] STREPTOCOCCUS PNEUMONIAE Not detected Not detected 01/15/2025 6:32 AM EDT [facility] STREPTOCOCCUS PYOGENES (GROUP A) Not detected Not detected 01/15/2025 6:32 AM EDT [facility] CTX-M Non Applicable Not detected 01/15/2025 6:32 AM EDT [facility] IMP Non Applicable Not detected 01/15/2025 6:32 AM EDT [facility] KPC Non Applicable Not detected 01/15/2025 6:32 AM EDT [facility] MEC A/C and MREJ Non Applicable Not detected 01/15/2025 6:32 AM EDT [facility] NDM Non Applicable Not detected 01/15/2025 6:32 AM EDT [facility] [id number] Non Applicable Not detected 01/15/2025 6:32 AM EDT [facility] VIM Non Applicable Not detected 01/15/2025 6:32 AM EDT [facility] CHLAMYDIA PNEUMONIAE Not detected Not detected 01/15/2025 6:32 AM EDT [facility] LEGIONELLA PNEUMOPHILA Not detected Not detected 01/15/2025 6:32 AM EDT [facility] MYCOPLASMA PNEUMONIAE Not detected Not detected 01/15/2025 6:32 AM EDT [facility] ADENOVIRUS Not detected Not detected 01/15/2025 6:32 AM EDT [facility] CORONAVIRUS (NOT COVID19) Not detected Not detected 01/15/2025 6:32 AM EDT [facility] HUMAN METAPNEUMOVIRUS Not detected Not detected 01/15/2025 6:32 AM EDT [facility] HUMAN RHINOVIRUS/ENTEROV IRUS Not detected Not detected 01/15/2025 6:32 AM EDT [facility] INFLUENZA A Not detected Not detected 01/15/2025 6:32 AM EDT [facility] INFLUENZA B Not detected Not detected 01/15/2025 6:32 AM EDT [facility] PARAINFLUENZA VIRUS Not detected Not detected 01/15/2025 6:32 AM EDT [facility] RESPIRATORY SYNCYTIAL VIRUS Not detected Not detected 01/15/2025 6:32 AM EDT [facility] BAL STRUCTURE OF LOWER LOBE OF LEFT LUNG / Unknown 01/14/2025 11:36 AM EDT 01/14/2025 11:36 AM EDT [facility] - 01/15/2025 6:32 AM EDT Antimicrobial [...] Edited Result - Final Performing Organization Address [facility] Co de Phone Number [facility] [address] [phone] * Respiratory Culture (01/14/2025 11:33 AM EDT) Only the most recent of2 resultswithin the time period is included. Result No growth 01/16/2025 9:04 AM EDT [facility] Gram Stain Result Rare WBCs 01/16/2025 9:04 AM EDT [facility] Gram Stain Result No organisms seen 01/16/2025 9:04 AM EDT [facility] BAL STRUCTURE OF LOWER LOBE OF LEFT LUNG / Unknown 01/14/2025 11:33 AM EDT 01/14/2025 11:33 AM EDT [facility] - 01/16/2025 9:04 AM EDT The pneumonia PCR panel may detect organisms that do not grow on the culture. Correlate PCR, culture, and patient condition. Rule out and consider respiratory tract colonization,particularly in tracheostomy patients. us Tawnya Amaro MD MICROBIOLOGY - GENERAL ORDERAB LES Final Result Performing Organization Address [facility] Co de Phone Number [facility] [address] [phone] * SPIN/CONCENTRATION CHARGE (01/14/2025 11:33 AM EDT) Concentration charged Done 01/15/2025 2:14 PM EDT [facility] BAL STRUCTURE OF LOWER LOBE OF LEFT LUNG / Unknown 01/14/2025 11:33 AM EDT 01/14/2025 11:33 AM EDT Donnie Jeffery MD MICROBIOLOGY - GENERAL ORDERABL ES Final Result Performing Organization Address [facility]/ZIP Co de Phone Number [facility] [address] [phone] * (ABNORMAL) CALCIUM Ionized (01/14/2025 3:53 AM EDT) Only the most recent of3 resultswithin the time period is included. Pathologist [facility] Calcium Ionized 1.03(L) 1.12 - 1.32 mmol/L 01/14/2025 3:59 AM EDT [facility] Blood Venipuncture / Unknown 01/14/2025 3:53 AM EDT 01/14/2025 3:53 AM EDT us Gabe Davis APRN LAB BLOOD ORDERABLES Final Res ult Performing Organization Address City/[facility]/ZIP Co de Phone Number [facility] [address] [phone] * (ABNORMAL) Comprehensive metabolic panel (01/14/2025 3:53 AM EDT) Only the most recent of3 resultswithin the time period is included. Sodium 146(H) 136 - 145 meq/L 01/14/2025 4:27 AM EDT [facility] Potassium 2.9(L) 3.4 - 5.1 meq/L 01/14/2025 4:27 AM EDT [facility] Chloride 98 98 - 112 meq/L 01/14/2025 4:27 AM EDT [facility] CO2 33(H) 22 - 29 meq/L 01/14/2025 4:27 AM [facility] Calcium 8.8 8.4 - 10.2 mg/dL 01/14/2025 4:27 AM [facility] Glucose 130(H) 82 - 115 mg/dL 01/14/2025 4:27 AM [facility] BUN 25.9(H) 9.8 - 20.1 mg/dL 01/14/2025 4:27 AM [facility] Creatinine 1.56(H) 0.50 - 1.20 mg/dL 01/14/2025 4:27 AM [facility] BUN/Creatinine 17 8 - 20 01/14/2025 4:27 AM [facility] eGFR (mL/min/1.73m2) 35(L) >=60 mL/min/1.7 3m2 01/14/2025 4:27 AM [facility] Comment:ESTIMATED GFR IS NOT ACCURATE CREATININE CLEARANCE IN PREDICTING GLOMERULAR FILTRATION RATE. ESTIMATED GFR IS NOT APPLICABLE FOR DIALYSIS PATIENTS. Albumin 2.3(L) 3.5 - 5.0 g/dL 01/14/2025 4:27 AM [facility] Alkaline Phosphatase 81 40 - 150 U/L 01/14/2025 4:27 AM [facility] ALT 10 <55 U/L 01/14/2025 4:27 AM [facility] AST 18 5 - 34 U/L 01/14/2025 4:27 AM [facility] Total Bilirubin 0.2(L) 0.3 - 1.2 mg/dL 01/14/2025 4:27 AM [facility] Protein, Total 5.7(L) 6.4 - 8.3 g/dL 01/14/2025 4:27 AM [facility] Globulin 3.4 2.5 - 4.1 g/dL 01/14/2025 4:27 AM [facility] Anion Gap 18(H) 4 - 12 01/14/2025 4:27 AM [facility] A/G Ratio 0.7 0.7 - 1.9 01/14/2025 4:27 AM EDT [facility] Osmolality Calc 297.0 mOsm/kg 4:27 AM EDT [facility] Blood Venipuncture / Unknown 01/14/2025 3:53 AM EDT 01/14/2025 3:53 AM EDT us Gabe L Ryan [facility] BLOOD ORDERABLES Final Res ult [facility] [address] [phone] * CT CHEST WITHOUT IV CONTRAST (01/13/2025 [...] Mayi Smith. Transcribed by Chanel Parmar PA-C. us Donnie Jeffery MD IMG CT ORDERABLES Final Result * ECHO COMPLETE (DOPPLER / COLOR) WO CONTRAST (01/13/2025 9:55 AM EDT) Anatomical Region Laterality Modality Heart Vascular Ultraso und 01/13/2025 7:47 AM EDT Narrative 01/13/2025 3:14 PM EDT TRANSTHORACIC ECHOCARDIOGRAPHY REPORT Demographics Patient Name: NEHEMIAS Montes De Oca : 1950 Age: 74 year(s) Corporate ID Number: [id number] Gender Female Orchestra Director: Tk Majano RDCS Height: 60 inches Referring Physician: CARMELITA SPENCER MD Weight: 106 pounds Interpreting Physician: JOSEPH CONKLIN DO BMI: 20.7 kg/m^2 Date of Service: 01/13/2025 Blood Pressure: 157/70 mmHg Room Number: CCU 8 Type of Study: TTE procedure: ECHO COMPLETE (DOPPLER / COLOR) W OR WO CONTRAST. Patient Status: Routine IP [facility] History/Tech Notes: Indication: Acute [...] 0.69 m/s E/A ratio: 0.79 m/s Volume .47 LV length: 7.06 cm ml Volume [id number] ml LVOT diameter: 2.01 cm Normal sized [...] Oca :1950 Age: 74year(s) Corporate ID Number: [id number] Gender Female Orchestra Director: Tk Majano RDCS Height: 60 inches Referring Physician: CARMELITA SPENCER MD Weight: 106pounds Interpreting Physician: JOSEPH CONKLIN DO BMI: 20.7kg/m^2 Date of Service: 01/13/2025 Blood Pressure: 157/70mmHg Room Number: U [id number] Type of Study: TTE procedure: ECHO COMPLETE (DOPPLER / COLOR) W OR WO CONTRAST. Patient Status: Routine IP [facility] History/Tech Notes: Indication: Acute [...] 0.69 m/s E/A ratio: 0.79 m/s Volume [id number] LV length: 7.06 cm ml Volume [id number] ml LVOT diameter: 2.01 cm Normal sized [...] collapse. Pericardium / Pleura No pericardial effusion. Carmelita Spencer DO CV ECHO ORDERABLES Final Resu lt * Strep pneumoniae urine antigen (01/12/2025 10:33 AM EDT) Strep pneumoniae Antigen Presumptive negative for pneumococcal pneumonia - see comment Presumptive negative for pneumococcal pneumonia- see comment 01/12/2025 11:14 AM EDT [facility] Urine URINE / Unknown 01/12/2025 1 0:33 AM EDT 01/12/2025 10:33 AM EDT Narrative [facility] - 01/12/2025 11:14 AM EDT A presumptive negative result suggests no current or recent pneumococcal infection. Infection due to S. pneumoniae cannot be ruled out since the antigen present in the specimen may be below the detection limit of the test. [facility] DO MICROBIOLOGY - GENERAL ORDERA BLES Final Result Performing Organization Address [facility]/ZIP Co de Phone Number [facility] [address] [phone] * Legionella antigen, urine (01/12/2025 10:33 AM EDT) Legionella Urine Antigen Presumptive negative for L. pneumophila serogroup 1 antigen in urine- see comment Presumptive negative for L. pneumophila serogroup 1 antigen in urine- see comment 01/12/2025 11:14 AM EDT [facility] Urine 01/12/2025 10:3 3 AM EDT 01/12/2025 10:33 AM EDT Narrative [facility] - 01/12/2025 11:14 AM EDT Presumptive [...] below the detection limit of the test. [facility] DO URINE ORDERABLES Final Result Performing Organization Address [facility] Co de Phone Number [facility] [address] [phone] * Lactic acid (SJ) (01/12/2025 3:30 AM EDT) Lactic Acid Level (mmol/L) 1.7 0.5 - 2.2 mmol/L 01/12/2025 4:09 AM EDT [facility] Blood Venipuncture / Unknown 01/12/2025 3:30 AM EDT 01/12/2025 3:35 AM EDT Gabe Davis APRN LAB BLOOD ORDERABLES Final Res ult Performing Organization Address City/[facility]/ZIP Co de Phone Number [facility] [address] [phone] * Procalcitonin (01/12/2025 3:30 AM EDT) Procalcitonin 0.33 See Comment ng/mL 01/12/2025 4:27 AM EDT [facility] Blood Venipuncture / Unknown 01/12/2025 3:30 AM EDT 01/12/2025 3:35 AM EDT [facility] - 01/12/2025 4:27 AM EDT Specimen moderately hemolyzed us Gabe Davis APRN LAB BLOOD ORDERABLES Final Res ult Performing Organization Address [facility] Co de Phone Number [facility] [address] [phone] * (ABNORMAL) PROBNP (01/12/2025 3:30 AM EDT) ProBNP (pg/mL) 5,189(H) 16 - 334 pg/mL 01/12/2025 10:27 AM EDT [facility] Blood Venipuncture / Unknown 01/12/2025 3:30 AM EDT 01/12/2025 3:35 AM EDT [facility] - 01/12/2025 10:27 AM EDT As of August 15, 2024: NT-ProBNP is a new test on our [employer] Alinity Immunoassay analyzer. Please review new age and gender specific reference ranges. us Tawnya Amaro MD LAB BLOOD ORDERABLES Final Res ult Performing Organization Address City/[facility]/ZIP Co de Phone Number [facility] [address] [place] [address], [facility] [phone] * (ABNORMAL) C-Reactive Protein (01/12/2025 3:30 AM EDT) CRP 297.3(H) 0.0 - 5.0 mg/L 01/12/2025 4:33 AM EDT [facility] Blood Venipuncture / Unknown 01/12/2025 3:30 AM EDT 01/12/2025 3:35 AM EDT Gabe Davis FITTER ARMAMENT LAB BLOOD ORDERABLES Final Res ult [facility] [address] [phone] * Respiratory Panel (01/12/2025 3:29 AM EDT) Pathologist [facility] ADENOVIRUS Not detected Not detected 01/12/2025 4:49 AM EDT [facility] CORONAVIRUS 229E Not detected Not detected 01/12/2025 4:49 AM EDT [facility] CORONAVIRUS HKU1 Not detected Not detected 01/12/2025 4:49 AM EDT [facility] CORONAVIRUS NL63 Not detected Not detected 01/12/2025 4:49 AM EDT [facility] CORONAVIRUS OC43 Not detected Not detected 01/12/2025 4:49 AM EDT [facility] SARS-COV2/RT-PCR Not Detected Not Detected 01/12/2025 4:49 AM EDT [facility] HUMAN METAPNEUMOVIRUS Not detected Not detected 01/12/2025 4:49 AM EDT [facility] HUMAN RHINOVIRUS/ENTEROV IRUS Not detected Not detected 01/12/2025 4:49 AM EDT [facility] INFLUENZA A Not detected Not detected 01/12/2025 4:49 AM EDT [facility] INFLUENZA B Not detected Not detected 01/12/2025 4:49 AM EDT [facility] PARAINFLUENZA VIRUS 1 Not detected Not detected 01/12/2025 4:49 AM EDT [facility] PARAINFLUENZA VIRUS 2 Not detected Not detected 01/12/2025 4:49 AM EDT [facility] PARAINFLUENZA VIRUS 3 Not detected Not detected 01/12/2025 4:49 AM EDT [facility] PARAINFLUENZA VIRUS 4 Not detected Not detected 01/12/2025 4:49 AM EDT [facility] RESPIRATORY SYNCYTIAL VIRUS Not detected Not detected 01/12/2025 4:49 AM EDT [facility] BORDETELLA PARAPERTUSSIS Not detected Not detected 01/12/2025 4:49 AM EDT [facility] BORDETELLA PERTUSSIS Not detected Not detected 01/12/2025 4:49 AM EDT [facility] CHLAMYDIA PNEUMONIAE Not detected Not detected 01/12/2025 4:49 AM EDT [facility] MYCOPLASMA PNEUMONIAE Not detected Not detected 01/12/2025 4:49 AM EDT [facility] Nasopharyngeal NASOPHARYNGEAL SWAB / Unknown 01/12/2025 3:29 AM EDT 01/12/2025 3:35 AM EDT [facility] - 01/12/2025 4:49 AM EDT Testing was performed with RT-PCR methodology using the SinglePlatform Respiratory Panel 2.1 which has FDA De [...] decisions. This sample was tested at the [facility] using the Interactive TKOArray Respiratory Panel. It is FDA cleared and has been verified and approved by the [facility] for clinical use on nasopharyngeal swab specimens. The performance of the FilmArray RP has not been established in individuals who received influenza vaccine. Recent administration of a nasal influenza vaccine may cause false positive results for Influenza A and/or Influenza B. us Ismaeel Thony DO MICROBIOLOGY - GENERAL ORDERA BLES Final Result [facility] [address] [place] [address], [facility] [phone] * MRSA Screen (01/12/2025 3:29 AM EDT) MRSA by PCR [facility] MRSA Not Detected by PCR MRSA Not Detected by PCR DEVICE ID9 01/12/2025 5:32 AM EDT [facility] Nasal BOTH ANTERIOR NARES / Unknown 01/12/2025 3:29 AM EDT 01/12/2025 3:35 AM EDT us Ismaeel Thony DO MICROBIOLOGY - GENERAL ORDERA BLES Final Result [facility] [address] [place] [address], [facility] [phone] * EKG-SCANNED (01/12/2025) Narrative 01/12/2025 Ordered by an unspecified provider. us Default Scanning Provider SCAN ORDERS Final Result from Last 3 Months Insurance MEDICARE PART A B MEDICAID PEND Advance Directives For more information, please contact: [phone] Documents on File Type Date Recorded Patient Reverse Engineer Expl anation Advance Directives and Living Will 01/12/2025 Power of Track Machine Operator Repairer 01/12/2025 Power of Track Machine Operator Repairer-Patient 01/18/2025 11:45 AM Durable Power of Track Machine Operator Repairer * DNR - Comfort Measures (Latest Code [...] Relationship Healthcare Agent Relationshi p Communication Jenn Stone Daughter Healthcare Decision-Maker Care Teams Mastic Worker Relationship Specialty Start Date End Date Roe Gleason MD [address] [place] [id number] PCP - General Adolescent Medicine 01/12/25
--- OUTSIDE RECORDS SUMMARY | 2025-02-02 19:09 | XMS_ITS | Encounter Summary ---
Author Organization [employer] ([place], [place], [place], [place], [place]) Address [address] [place] [address] Care Team Providers Care Cable Splicing Technician Name Role Phone Roe Gleason MD Primary Care Provider + [phone] Encounter Details Date Type Department Care Team (Latest Contact Info) Description 01/12/2025 Travel Social History Tobacco Use Types Packs/Day Years Used Date Smoking Tobacco: Never Assessed Utilities Answer Date Recorded In the past [...] Do you speak a language other than [place] at [facility]? No 01/12/2025 Do you want help [...] on file documented as of this encounter Plan of Treatment Not on file documented as of this encounter Visit Diagnoses Not on filedocumented in this encounter Care Teams Cable Splicing Technician Relationship Specialty Start Date End Date Roe Gleason MD [address] [place] [address] PCP - General Adolescent Medicine 01/12/25 documented as of this encounter
--- OUTSIDE RECORDS SUMMARY | 2025-02-02 19:10 | XMS_ITS | Patient Health Record ---
Author Organization [facility] Address [address] [place] [address] Care Team Providers Care [employer] Learning Support Teacher Name Role Phone Roe Cotto Primary Care Provider [phone] Cony Maria Unavailable [phone] Neptali Cony Unavailable [phone] Migration, Provider Unavailable Unavailable Allergies Allergen (clinical drug ingredient) Drug/Non Drug Allergy documented on EMR Reaction Allergy Type Onset Date Status naproxen Naproxen Unknown Drug Allergy Active Results Component Value Reference Range Notes MODIFIED BARIUM SWALLOW Reviewed date:08/15/2024 08:18:16 PM Interpretation: Performing Lab: Notes/Report: [address] [place] [address] Name: MARGARITA STONE Exam Date: 08/14/2024 : 1950 Age 73 years Gender: F Physician: ROE COTTO Facility: [facility] Facility HSV: Outpatient Exam: MODIFIED BARIUM SWALLOW EXAM: MODIFIED BARIUM SWALLOW INDICATION: dysphasia. Suspicion for aspiration. COMPARISON: None ATTENDING CONSTRUCTION TECHNICIAN: Ashok Dunn D.O. DATA COMMUNICATIONS SOFTWARE CONSULTANT: Jt Loaiza Jr., PA-C Procedure was performed by Jt Loaiza Jr., PA-C under the supervision of Dr. Dunn. FINDINGS/TECHNIQUE: Under fluoroscopic evaluation cineradiography/videoradiography recordings were performed in conjunction with the speech-language pathologist (BENEFITS COORDINATOR). Various liquid, solid and/or semi-solid barium preparations were used to assess swallowing function. FLUORO TIME: 105.1 seconds. Reference air kerma: 24.182 mGy. IMPRESSION: Modified barium swallow. There is aspiration with thin consistency and nectar consistency barium. Please see formal report by speech-language pathology for findings and recommendations. Electronically signed by: Ashok Dunn DO 08/14/2024 12:38 PM EDT Dictated By: Ashok Dunn Transcribed By: Transcribed On: 08/14/2024 11:14 AM Electronically signed by: Ashok Dunn 08/14/2024 Thank you for referring MARGARITA STONE to [facility]. Legally authenticated by RON ESCOBAR DO 2024-08-14 11:14:22 IRON, TIBC AND FERRITIN NENA Morgan ([id number]) Reviewed date:03/22/2024 12:10:24 PM Interpretation: Performing Lab:BRITTANY [employer] [facility]-[address]verifye[address] [facility], [place] Iw[place]SB[address] Lv Campo Notes/Report: NON-FASTING; NON-FASTING; NON-FASTING; NON-FASTING; NON-FAST IRON, TOTAL 23 45-160 mcg/dL IRON BINDING CAPACITY 387 250-450 mcg/dL (nabeel c) % SATURATION 6 16-45 % (calc) FERRITIN 7 16-288 ng/mL MAGNESIUM (622) Reviewed date:03/22/2024 12:10:25 PM Interpretation: Performing Lab:BRITTANY [facility]-Jonathan [address] [facility], [place] ErvpIN[address] Lv [place] Notes/Report: NON-FASTING; NON-FASTING; NON-FASTING; NON-FASTING; NON-FAST MAGNESIUM 1.5 1.5-2.5 mg/dL VITAMIN B12/FOLATE, SERUM PA MARY LOU (5951) Reviewed date:03/22/2024 12:10:25 PM Interpretation: Performing Lab:BRITTANY [facility]-[id number], [place] TejadaYbfaRC[address] Lv [place] Notes/Report: NON-FASTING; NON-FASTING; NON-FASTING; NON-FASTING; NON-FAST VITAMIN B12 658 707-8497 pg/mL Please Note: Although the reference range [...] Range Low: <3.4 Borderline: 3.4-5.4 Normal: >5.4 COMPREHENSIVE METABOLIC PANE (86991) Reviewed date:03/22/2024 12:10:25 PM Interpretation: Performing Lab:BRITTANY [facility] [id number] [employer], [place] TechnologyLkbbYE[address] Lv [place] Notes/Report: NON-FASTING; NON-FASTING; NON-FASTING; NON-FASTING; [...] 19 10-35 U/L ALT 15 6-29 U/L CBC (INCLUDES DIFF/PLT) (639 9) Reviewed date:03/22/2024 12:10:25 PM Interpretation: Performing Lab:BRITTANY, [id number], [place] TechnologyDczvEH[address] Lv [place] Notes/Report: NON-FASTING; NON-FASTING; NON-FASTING; NON-FASTING; [...] MPV 11.7 7.5-12.5 fL ABSOLUTE NEUTROPHILS 6705 5042-5546 cells/uL ABSOLUTE LYMPHOCYTES 2575 850-3900 cells/uL ABSOLUTE MONOCYTES 731 200-950 cells/uL ABSOLUTE EOSINOPHILS 247 15-500 cells/uL ABSOLUTE BASOPHILS 41 0-200 cells/uL NEUTROPHILS 65.1 LYMPHOCYTES 25.0 MONOCYTES 7.1 EOSINOPHILS 2.4 BASOPHILS 0.4 Medications Medication SIG (Take, Route, Frequency, Duration) Notes Start Date End Date Status Nystatin 582421 UNIT/GM 1 application Ex ternally three times [...] day; Duration: 30 days 11/16/2023 Active Ipratropium Volcano 0.02 % 2.5 mL by neb ulizer [...] MOUTH TWICE DAILY 90; Duration: 90 Active guaiFENesin 400 MG 1 tablet as needed O rally twice a day; Duration: 30 days 01/30/2025 Active Atorvastatin Calcium 80 MG TAKE ONE [...] MOUTH EVERY DAY 90; Duration: 90 Active Memantine HCl 10 MG TAKE ONE (1) TABLET BY MOUTH TWICE DAILY; Duration: 150 Active Furosemide 40 MG TAKE ONE (1) TABLET BY MOUTH EVERY DAY; Duration: 90 days Active LORazepam 0.5 MG TAKE ONE (1) [...] A DAY 90 DAYS; Duration: 90 Active Immunizations Vaccine Route Administration [...] Dose IM Intramuscular 01/21/2020 Administered Lot # [id number] Fluzone High Dose IM Intramuscular 12/07/2021 Administered [...] W/U Status Risk Notes Problem Primary insomnia (5820679) Primary insomnia (F51.01) Active confirmed Problem Alzheimer's disease (05082239) Alzheimer's disease, unspecified (G30.9) Active confirmed Problem Panlobular emphysema (2741515) Panlobular emphysema (J43.1) Active confirmed Problem Chronic pulmonary edema (73494530) Chronic pulmonary edema (J81.1) Active confirmed Problem Nicotine dependence (21581067) Personal history of nicotine dependence (Z87.891) Active confirmed Problem Hypertension (79817051) HTN (hypertension) (I10) Active confirmed Problem Mixed anxiety and depressive disorder (041625371) Depression with anxiety (F41.8) Active confirmed Problem Anxiety (89696200) Anxiety (F41.9) Active confi rmed Problem Supraventricular tachycardia (3216328) SVT (supraventricular tachycardia) (I47.1) Active confirmed Problem Cerebrovascular disease (67075254) Cerebrovascular disease (I67.9) Active confirmed Problem Hyperlipidemia (31869672) Hyperlipidemia (E78.5) Active confirmed Problem Type II diabetes mellitus without complication (748164053) Diabetes mellitus type 2, noninsulin dependent (E11.9) Active confirmed Problem Ischemic stroke (438591285) Ischemic stroke (I63.50) Active confirmed Problem Gastroesophageal reflux disease (648188278) GERD without esophagitis (K21.9) Active confirmed Problem Acute exacerbation of chronic obstructive airways disease (376573176) COPD exacerbation (J44.1) Active confirmed Problem Memory loss (16697138) Memory loss (R41.3) Active confirmed Problem COPD - Chronic obstructive pulmonary disease (51560865) Chronic obstructive pulmonary disease, unspecified COPD type (J44.9) Active confirmed Problem Recurrent falls (067734555) Frequent falls (R29.6) Active confirmed Problem Abnormal mammogram (656870572) Abnormal mammogram (R92.8) Active confirmed Problem Ataxia (63916657) Ataxia (R27.0) Active confirm ed Problem Anemia (907113229) Anemia, unspecified type (D64.9) Active confirmed Problem Dysphagia (28958999) Dysphagia, unspecified type (R13.10) Active confirmed Problem Chronic anxiety (840981565) Chronic anxiety (F41.9) Active confirmed Problem Adult health examination (669069021) Healthcare maintenance (Z00.00) Active confirmed Problem Type II diabetes mellitus without complication (895537914) Type 2 diabetes mellitus without complication, without long-term current use of insulin (E11.9) Active confirmed Problem Menopausal syndrome (disorder) (643224552) Menopausal disorder (N95.9) Active confirmed Problem Primary hypertension (38533024) Primary hypertension (I10) Active confirmed Problem Localized, primary osteoarthritis of the pelvic region and thigh (465540272) Primary osteoarthritis of hips, 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) Active confirmed Problem Tobacco use (233804247) Tobacco use disorder (F17.200) Active confirmed Problem Leukocytosis (065426792) Leukocytosis, unspecified type (D72.829) Active confirmed Problem Arthritis of wrist (6285820607095) Arthritis of wrist, 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) Active confirmed Problem Osteoarthritis of right knee joint (disorder) (952470173495693) Localized osteoarthritis of right knee (M17.11) Active confirmed Problem Dysarthria (8271428) 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) Active confirmed Problem Heart failure (86670373) Acute on chronic congestive heart failure, unspecified heart failure type (I50.9) Active confirmed Problem Hyperlipidemia (32444653) Other hyperlipidemia (E78.49) Active confirmed Problem Major depression, single episode (21089155) Major depressive disorder, remission status unspecified, unspecified whether recurrent (F32.9) Active confirmed Problem History of supraventricular tachycardia (33408369886541822) History of supraventricular tachycardia (Z86.79) Active confirmed Problem Atherosclerotic heart disease of 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 (224600942204468) Coronary artery disease involving cantwell heart, unspecified vessel or lesion type, unspecified whether angina present (I25.10) Active confirmed Problem 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, unspecified severity, 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) Active confirmed Problem Chronic respiratory failure (15763016) Chronic hypoxic respiratory failure (J96.11) Active confirmed Problem Xfuyl-ar-gbafyqu hypoxemic respiratory failure (disorder) (73273646116999812) Acute on chronic hypoxic respiratory failure (J96.21) Active confirmed Vital Signs Heart Rate 74 /min 01/09/2025 Temperature 97.9 degrees Fahrenheit 01/09/2025 Oximetry 98 10/08/2024 pulse ox was wi th 5L Blood pressure diastolic 58 mm Hg 01/09/2025 Height 61.5 in 01/09/2025 Blood pressure systolic 118 mm Hg 01/09/2025 Weight 127 lbs 01/09/2025 BMI 23.61 kg/m2 01/09/2025 Encounters Encounter Location Date Provider Diagnosis [facility] [address] [facility] [address] [place], [employer] [address] 06/29/2024 Provider Migration Anxiety F41.9 ; Primary osteoarthritis of hips, bilateral M16.0 and Hemorrhoids, unspecified hemorrhoid type K64.9 [facility] [address] [place] [address] 02/21/2024 Cony Candace COPD exacerbation J4 4.1 and Nasal congestion R09.81 [facility] [address] [facility] [address] [place] [address] 03/21/2024 Cony Neptali Anemia, unspecified type D64.9 ; Acute on chronic hypoxic respiratory failure J96.21 ; Leukocytosis, unspecified type D72.829 ; Pericardial effusion I31.39 and Hemorrhoids, unspecified hemorrhoid type K64.[address] [address] 07/04/2024 Roe Cotto History of supraventricular tachycardia Z86.79 ; Aspiration pneumonia of left lower lobe due to regurgitated food J69.0 ; Acute on chronic hypoxic respiratory failure J96.21 ; Hospital discharge follow-up Z09 and Yeast infection B37.9 [facility] [address] [address] 08/08/2024 Roe Sobiacullen Memory loss R41.3 ; Chronic obstructive pulmonary disease, unspecified COPD type J44.9 ; Healthcare maintenance Z00.00 ; SVT (supraventricular tachycardia) I47.10 and Encounter for immunization Z23 [facility] [address] [address] 10/08/2024 [facility] discharge follow-up Z09 ; Acute pneumonia J18.9 and Acute on chronic congestive heart failure, unspecified heart failure type I50.9 [facility] [address] [facility] [address] [place] [address] 10/16/2024 Roe Ramsaycullen Chronic hypoxic respiratory failure J96.11 ; Recurrent aspiration pneumonitis J69.0 and Hospital discharge follow-up Z09 [facility] [address] [address] 11/19/2024 Roe Cotto Chronic hypoxic respiratory failure J96.11 ; Dysphagia, unspecified type R13.10 ; Alzheimer's disease, unspecified G30.9 ; Coronary artery disease involving cantwell heart, unspecified vessel or lesion type, unspecified whether angina present I25.10 ; Encounter for immunization Z23 and Immunization(s) administered Z23 [address] [address] 01/09/2025 Roe Bescullen COPD exacerbation J4 4.1 ; Chronic hypoxic respiratory failure J96.11 ; Acute on chronic congestive heart failure, unspecified heart failure type I50.9 and Hospital discharge follow-up Z09 [facility] [address] [place] [address] 03/13/2024 Cony Neptali [facility] [address] [place] [address] 03/22/2024 Roe Besson [facility] [address] [place] [address] 03/25/2024 Roe Besson [facility] [address] [place] [address] 05/14/2024 Roe Besson [facility] [address] [place] [address] 06/28/2024 Roe Besson [facility] [address] [place] [address] 07/04/2024 Roe Besson [facility] [address] [place] [address] 07/10/2024 Roe Besson Dysphagia, unspecifi ed type R13.10 [facility] [address] [place] [address] 09/09/2024 Roe Besson [facility] [address] [place] [address] 09/30/2024 Roe Besson [facility] [address] [place] [address] 10/08/2024 Roe Besson [facility] [address] [place] [address] 10/09/2024 Roe Besson Oropharyngeal aspiration, subsequent encounter T17.208D [facility] [address] [place] [address] 11/05/2024 Roe Besson Oropharyngeal aspiration, subsequent encounter T17.208D [facility] [address] [place] [address] 11/22/2024 Cony Candace [facility] [address] [place] [address] 01/02/2025 Roe Besson [facility] [address] [place] [address] 01/30/2025 Roe Besson [address] [address] 01/30/2025 Roe Cotto Assessments Encounter Date Diagnosis (ICD Code) [...] NC at all times. She voices understanding. 07/04/2024 History of supraventricular tachycardia (ICD-10 - [...] for futher instructions to prevent recurrent pneumonias. 08/08/2024 Memory loss (ICD-10 - R41.3) -memory [...] to hospice. They are going to see supervisor assembly today. Will follow this visit 10/16/2024 Recurrent aspiration pneumonitis (ICD-10 - J69.0) I think speech is appropriate to help with comfort issues and swallowing 11/05/2024 Oropharyngeal aspiration, subsequent encounter (ICD-10 - T17.208D) 11/19/2024 Dysphagia, unspecified type (ICD-10 - R13.10) Aspiration precautions discussed, they will try to do a back brace to help with her kyphosis while she is eating. 01/09/2025 Chronic hypoxic respiratory failure (ICD-10 - J96.11) Again seems to be back at baseline, has finished up antibiotics. Continue oxygen 07/10/2024 Dysphagia, unspecified type (ICD-10 - R13.10) 06/29/2024 Anxiety (ICD-10 - F41.9) 11/19/2024 Chronic hypoxic respiratory failure (ICD-10 - [...] supportive care, nebulizers, pulmonary toilet and oxygen. 06/29/2024 Primary osteoarthritis of hips, bilateral (ICD-10 - M16.0) 01/09/2025 Acute on chronic congestive heart failure, [...] - I47.10) -No chest pain, no palpitations 11/19/2024 Coronary artery disease involving cantwell heart, unspecified vessel or lesion type, unspecified whether angina present (ICD-10 - I25.10) Cardiology has released patient for a year. I will do med refills as needed 07/04/2024 Hospital discharge follow-up (ICD-10 - Z09) No medication changes made by cardiology team. Personally reviewed H&P and discharge summary as available from hospital discharge documentation. Reviewed pertinent labs and test done in the hospital. Personally reconciled medication. 01/09/2025 Hospital discharge follow-up (ICD-10 - Z09) Personally reviewed H&P and discharge summary as available from hospital discharge documentation. Reviewed pertinent labs and test done in the hospital. Personally reconciled medication. 06/29/2024 Hemorrhoids, unspecified hemorrhoid type (ICD-10 - K64.9) 11/19/2024 Encounter for immunization (ICD-10 - Z23) [...] Complete 2020 M-COVID WITH RESPIRATORY PANEL 0 Future Test Test Name Order Date BASIC METABOLIC PANEL (97402) 01/20/2025 MAGNESIUM (622) 01/20/2025 B TYPE NATRIURETIC PEPTIDE (BNP) (05411) 01/20/2025 Insurance Providers Payer Name Payer Address Payer Phone Subscriber Number Group Number Insured Name Patient Relationship to Insured Coverage Start Date Coverage End Date [place] [address] [place] [address] [id number] Margarita Stone Self - patient is the insured MEDICAID EDS [address] [place] [address] [id number] Margarita Stone Self - patient is the insured [employer] [address] [place] [address] [address] [place] [address] [phone] ACL Margarita Stone Self - patient is [...] cataract surgery 10/2023 Hospitalization History Reason Date(Month/Year) [facility] 01/01-11/2024 [facility] 06/27-07/2014 [facility]- Low oxygen, pneumonia left lung, fl uid around heart. 03/11/24-03/13/24 Frannie 01/2023 uti 05/2019 [facility]-UTI, Dehydration 12/2018 above
[2025-02-02 19:30] VITALS: BP 136/64; PULSE 105; RESP 32; O2SAT 99
--- NOTE | 2025-02-02 20:04 | PC.NURSE ---
called RT for cont. neb
[2025-02-02] MEDS: ALBUTEROL 0.083% 2.5 MG/3 ML NEB 20 MG IH (20:54)
[2025-02-02 21:35] VITALS: O2SAT 91
--- NOTE | 2025-02-02 21:38 | PC.NURSE ---
pt placed on 6L NC by RT. Daughter reports that pts O2 tank is empty and they are needing an O2 tank to get home. Mark called and reports they will bring O2 tank
[2025-02-02 22:08] VITALS: BP 135/59; PULSE 104; RESP 24; TEMP 36.2
== END 2025-02-02 22:10 | disposition hospice, home (50) ==
PROVIDERS: Emergency Provider Emergency Medicine; PCP Internal Medicine Adolescent Medicine
DX: J96.21 Acute and chronic respiratory failure with hypoxia (principal); J44.9 Chronic obstructive pulmonary disease, unspecified; I11.0 Hypertensive heart disease with heart failure; I50.9 Heart failure, unspecified; Z87.891 Personal history of nicotine dependence
CPT/HCPCS: 93005; 99283; 99285